=== PATIENT | male | born 1965 | race Caucasian/White ===

== ENCOUNTER 2021-10-17 20:33 | Emergency (ER) | payer MEDICARE, SELFPAY ==
[2021-10-17] VITALS (7 sets, daily range): BP systolic 120–153; BP diastolic 70–95; PULSE 83–116; RESP 20–22; TEMP 37.2–37.6; O2SAT 95–98; BMI 30.4
--- NOTE | 2021-10-17 20:42 | XR_ITS ---
PROCEDURE INFORMATION: Exam: XR Chest Exam date and time: 10/17/2021 8:56 PM Age: 55 years old Clinical indication: Cough and shortness of breath; Sternal or substernal pain; Additional info: Chest pain cough SOB TECHNIQUE: Imaging protocol: XR of the chest. Views: 2 views. COMPARISON: No relevant prior studies available. FINDINGS: Lungs: Interstitial opacities bilaterally concerning for pneumonia. Underlying chronic interstitial lung disease and pulmonary fibrosis. Granulomatous changes. Pleural spaces: Unremarkable. No pleural effusion. No pneumothorax. Heart/Mediastinum: Unremarkable. No cardiomegaly. Bones/joints: Unremarkable. IMPRESSION: Findings concerning for interstitial pneumonia. Underlying pulmonary fibrosis. Correlate clinically
--- NOTE | 2021-10-17 20:45 | ECG_ITS ---
APPROVED REPORT Exam: Resting ECG HR:112 bpm ECG Measurements Heart Rate 112 AXES IA 151 P 49 QRSd 103 QRS 62 QT 288 T 65 QTc 355 Conclusion SINUS TACHYCARDIA ABNORMAL RHYTHM ECG UNCONFIRMED REPORT Electronically signed by : Brian Reyes MD 10/18/2021 14:13:20
[2021-10-17 20:50] LABS: Basophils # 0.1 K/mm3 (0-0.2); Basophils % 1.3 % (0.1-2.0); Eosinophils # 0.1 K/mm3 (0.0-0.4); Eosinophils % 1.1 % (0.1-12.0); Hematocrit 42.5 % (42.0-52.0); Hemoglobin 14.2 g/dL (14.1-18.0); Lymphocytes # 1.3 K/mm3 (0.7-4.5); Lymphocytes % 12.9 % (10-50); Mean Corpuscular HGB Conc 33.5 g/dL (31.8-35.4); Mean Corpuscular Hemoglobin 33.2 pg (27.0-31.2); Mean Corpuscular Volume 99.2 fl (80-94); Mean Platelet Volume 7.9 fl (7.4-10.4); Monocytes # 0.6 K/mm3 (0.1-1.0); Monocytes % 6.4 % (1.7-9.3); Neutrophils # 7.7 K/mm3 (1.8-7.8); Neutrophils % 78.3 % (37.0-80.0); Platelet Count 204 K/mm3 (142-424); Red Blood Count 4.28 M/mm3 (4.60-6.20); Red Cell Distribution Width 13.6 % (11.5-17.5); White Blood Count 9.8 K/mm3 (4.8-10.8)
[2021-10-17 20:54] LABS: Adenovirus,PCR Not Detected (NotDetected); Bordetella Pertussis Not Detected (NotDetected); Chlamydophila Pneumoniae, PCR Not Detected (NotDetected); Coronavirus 19, PCR Not Detected (NotDetected); Coronavirus 229E Not Detected (NotDetected); Coronavirus NL63 Not Detected (NotDetected); Coronavirus OC43 Not Detected (NotDetected); Coronovirus HKU1,PCR Not Detected (NotDetected); Human Metapneumovirus Not Detected (NotDetected); Influenza A, PCR Not Detected (NotDetected); Influenza AH1, 2009 Not Detected (NotDetected); Influenza AH1, PCR Not Detected (NotDetected); Influenza AH3,PCR Not Detected (NotDetected); Influenza B, PCR Not Detected (NotDetected); Mycoplasma Pneumoniae, PCR Not Detected (NotDetected); Parainfluenza 1, PCR Not Detected (NotDetected); Parainfluenza 2, PCR Not Detected (NotDetected); Parainfluenza 3, PCR Not Detected (NotDetected); Parainfluenza 4, PCR Not Detected (NotDetected); Respiratory Syncytial Virus Not Detected (NotDetected)
[2021-10-17 20:57] LABS: Alanine Aminotransferase 46 U/L (12-78); Albumin Level 4.2 g/dl (3.5-5.0); Albumin/Globulin Ratio 1.3 (1.1-1.8); Alkaline Phosphatase 94 U/L (38-126); Anion Gap 12.4 mEq/L (5-15); Aspartate Amino Transferase 38 U/L (17-59); Blood Urea Nitrogen 25 mg/dl (9-20); Calcium 9.2 mg/dl (8.4-10.2); Carbon Dioxide 25 mmol/L (22.0-30.0); Chloride 105 mmol/L (98-107); Creatinine Clearance Estimated 100 mL/min (50-200); Estimated Glomerular Filt Rate 70 ml/min (>60); GFR (African American) 85 ML/MIN (>60); Globulin 3.3 g/dL (1.3-3.2); Glucose 106 mg/dl (74-100); Potassium 4.4 mmoL/L (3.5-5.1); Sodium 138 mmol/L (136-145); Total Protein,Serum 7.5 g/dl (6.3-8.2)
[2021-10-17 20:59] LABS: ABG Base Excess 1.2 mmol/L (-2.4-2.3); ABG HCO3 23.6 mmhg (22.0-26.0); ABG Oxygen Saturation 97 % (90-100); ABG PCO2 27.6 mmhg (35.0-45.0); ABG PO2 79.7 mmhg (80-100); ABG TCO2 24.5 mmhg (23-27)
[2021-10-17 21:00] LABS: ABG PH 7.55 mmol/L (7.35-7.45); Allen's Test Y; Oxygen RA %; Source Right Radial
--- NOTE | 2021-10-17 21:00 | HMH.EDSOB ---
ED Disposition Clinical Impression: Acute interstitial pneumonia Community acquired pneumonia Qualifiers: Laterality: left Lung location: upper lobe of lung Qualified Code(s): J18.9 - Pneumonia, unspecified organism Disposition: Home, Self-Care Condition on Discharge: Good Instructions: DI for Shortness of Breath Additional Instructions: use meds and see pcp for follow up and consider seeing pul consult Prescriptions: Benzonatate [Benzonatate 100mg cap] 100 mg PO TID #21 cap Transmission Status: Pending to [id number] levoFLOXacin [Levaquin 500mg tab] 500 mg PO DAILY #7 tab Transmission Status: Pending to [id number] predniSONE [Prednisone 20mg Tab] 20 mg PO BID #10 tab Transmission Status: Pending to [id number] Referrals: Provider,Referral, [Primary Care Provider] - - Critical Care Critical Care Time: No Attestation: On 10/17/21, the high probability of a clinically significant, sudden or life threatening deterioration of the following system(s) required my full and direct attention, intervention and personal management. The time I documented below is in addition to time spent performing reported procedures but includes the following listed in this critical care notation. Medical Decision Making - Medical Records Medical records reviewed: Yes: I reviewed the patient's medical records. - Dejon Inquiry Pt receiving controlled substance: No Vital Signs: 10/17/21 20:38 10/17/21 20:41 10/17/21 21:00 Temperature 99.6 F Temperature Source Oral Pulse Rate 116 H 106 H Respiratory Rate 22 Blood Pressure 153/95 H 131/89 Blood Pressure [Right Arm] 153/95 H Blood Pressure Mean [Right Arm] 114 02 Sat by Pulse Oximetry 95 95 98 Oxygen Delivery Method Room Air Room Air Room Air 10/17/21 21:10 10/17/21 21:11 10/17/21 21:40 Temperature Temperature Source Pulse Rate 89 104 H 101 H Respiratory Rate Blood Pressure 137/86 139/87 Blood Pressure [Right Arm] Blood Pressure Mean [Right Arm] 02 Sat by Pulse Oximetry 96 96 Oxygen Delivery Method Room Air Room Air - Lab Data Lab results reviewed: Yes: I reviewed the patient's lab results. Lab Results 10/17/21 20:42: Specimen Source Right radial, O2 % Ra, ABG pH 7.55 H, ABG pCO2 27.6 L, ABG pO2 79.7 L, ABG HCO3 23.6, ABG Total CO2 24.5, ABG O2 Saturation 97, ABG Base Excess 1.2, Steve Test Y 10/17/21 20:45: WBC 9.8, RBC 4.28 L, Hgb 14.2, Hct 42.5, MCV 99.2 H, MCH 33.2 H, MCHC 33.5, RDW 13.6, Plt Count 204, MPV 7.9, Neut % (Auto) 78.3, Lymph % (Auto) 12.9, [place] % (Auto) 6.4, Eos % (Auto) 1.1, Baso % (Auto) 1.3, Neut # (Auto) 7.7, Lymph # (Auto) 1.3, [place] # (Auto) 0.6, Eos # (Auto) 0.1, Baso # (Auto) 0.1, ESR 89 H 10/17/21 20:45: Sodium 138, Potassium 4.4, Chloride 105, Carbon Dioxide 25, Anion Gap 12.4, BUN 25 H, Creatinine 1.10, Estimated Creat Clear 100, Estimated GFR 70, Est GFR ( Amer) 85, Glucose 106 H, Calcium 9.2, Total Bilirubin 1.0, AST 38, ALT 46, Alkaline Phosphatase 94, Troponin I < 0.01, C-Reactive Protein 84.1 H, Total Protein 7.5, Albumin 4.2, Globulin 3.3 H, Albumin/Globulin Ratio 1.3, Procalcitonin 3.12 H 10/17/21 20:45: NT-Pro-B Natriuret Pep 162 H 10/17/21 20:49: Chlamy pneumoniae PCR Not detected, Adenovirus (PCR) Not detected, B. pertussis DNA (PCR) Not detected, Coronavirus OC43 (PCR) Not detected, Coronavirus HKU1 (PCR) Not detected, Coronavirus 229E (PCR) Not detected, SARS-CoV-2 (PCR) Not detected, Coronavirus NL63 (PCR) Not detected, Human Metapneumovir PCR Not detected, Influenza A (H1) PCR Not detected, Influ A (H1N1/09) PCR Not detected, Influenza A (H3) PCR Not detected, Influenza Type A (PCR) Not detected, Influenza Type B (PCR) Not detected, M. pneumoniae (PCR) Not detected, Parainfluenza 1 (PCR) Not detected, Parainfluenza 2 (PCR) Not detected, Parainfluenza 3 (PCR) Not detected, Parainfluenza 4 (PCR) Not detected, RSV (PCR) Not detected, Entero/Rhino (PCR) Detected A 0
[2021-10-17 21:02] LABS: C-Reactive Protein 84.1 mg/L (0-4)
--- NOTE | 2021-10-17 21:04 | PC.NURSE ---
pt going to xray
[2021-10-17 21:13] LABS: Troponin I < 0.01 ng/ml (0.00-0.034)
--- NOTE | 2021-10-17 21:15 | CT_ITS ---
PROCEDURE INFORMATION: Exam: CTA Chest With Contrast Exam date and time: 10/17/2021 9:27 PM Age: 55 years old Clinical indication: Cough and shortness of breath; Additional info: Shortness of air cough TECHNIQUE: Imaging protocol: Computed tomographic angiography of the chest with contrast. 3D rendering (Not supervised by radiologist): MIP and/or 3D reconstructed images were created by the technologist. Radiation optimization: All CT scans at this facility use at least one of these dose optimization techniques: automated exposure control; mA and/or kV adjustment per patient size (includes targeted exams where dose is matched to clinical indication); or iterative reconstruction. Contrast material: ISOVUE 370; Contrast volume: 70 ml; Contrast route: INTRAVENOUS (IV); COMPARISON: CR XR CHEST 2V 10/17/2021 8:56 PM FINDINGS: Pulmonary arteries: Normal. No pulmonary emboli. Aorta: Unremarkable. No aortic aneurysm. No aortic dissection. Lungs: Ground-glass opacity in the left upper lobe findings concerning for pneumonia. Remainder of the lungs are clear. Pleural spaces: Unremarkable. No pneumothorax. No pleural effusion. Heart: Unremarkable. No cardiomegaly. No pericardial effusion. Lymph nodes: Unremarkable. No enlarged lymph nodes. Intraperitoneal space: Upper abdomen reveals a 5 cm simple cyst in the left kidney. Bones/joints: Unremarkable. No acute fracture. Soft tissues: Unremarkable. IMPRESSION: 1. Left upper lobe pneumonia. 2. No pulmonary embolism COMMENTS: Consistent with the [employer]'s Incidental Findings Committee white paper (J Am Darren Radiol 2018): Any incidental renal lesion less than 1 cm or classified as too small to characterize, or any incidental cystic renal lesion characterized as simple-appearing, is likely benign. No follow-up imaging is recommended for these lesions per consensus recommendations based on imaging criteria.
[2021-10-17 21:16] LABS: Procalcitonin 3.12 ng/mL (0.0-2.0)
[2021-10-17 21:21] LABS: Erythrocyte Sedimentation Rate 89 mm/hr (0-20)
--- NOTE | 2021-10-17 21:27 | PC.NURSE ---
pt going to ct scan
--- NOTE | 2021-10-17 21:34 | PC.NURSE ---
pt back from scan
[2021-10-17 21:39] LABS: Microscopic, Urine URINE MICROSCOPIC (MICROSCOPIC)
[2021-10-17 21:40] LABS: NT Pro Brain Natriuretic Pep. 162 pg/mL (0-125)
[2021-10-17 21:41] LABS: Appearance,Urine CLEAR (Clear); Bilirubin,Urine Negative (Negative); Blood, Urine 1+ (Negative); Color,Urine YELLOW (Yellow); Glucose,Urine (UA) Negative (Negative); Ketones,Urine Negative (Negative); Leukocyte Esterase,Urine Negative (Negative); Nitrate,Urine Negative (Negative); Protein,Urine Negative (Negative)
[2021-10-17 21:44] LABS: Amorphous Sediment,Urine Trace /lpf; Mucus,Urine 2+ /lpf; Squamous Epithelial Cell,Urine Occasional #/hpf (0-5); WBC,Urine Occasional #/hpf (0-3)
[2021-10-17 22:21] LABS: Rhinovirus/Enterovirus Detected (NotDetected)
== END 2021-10-17 22:57 | disposition home or self-care (01) ==
PROVIDERS: Emergency Provider Emergency Medicine
DX: J18.9 Pneumonia, unspecified organism (principal)
CPT/HCPCS: 71046; 71275; 80053; 81001; 82803; 83880; 84145; 84484; 85025; 85651; 86140; 87581; 87632; 87798; 93005; 96361; 96374; 96375; 99284; C9803; J0696; Q9967; U0003; U0005

== ENCOUNTER 2024-03-10 07:48 | Emergency (ER) | payer MEDICARE, SELFPAY ==
[2024-03-10 07:49] VITALS: BP 130/89; PULSE 83; RESP 13; TEMP 37.2; O2SAT 100; BMI 34.7
[2024-03-10 07:53] VITALS: BP 130/89; PULSE 134; O2SAT 94
[2024-03-10 08:00] VITALS: BP 139/86; PULSE 94; O2SAT 92
[2024-03-10] MEDS: KETOROLAC 30MG/ML VIAL 30 MG IM (08:20)
--- NOTE | 2024-03-10 09:02 | HMH.EDGENADL ---
Discharge Plan Disposition Patient Disposition: Home, Self-Care Condition: Good Prescriptions Prescriptions: No Action colestipol 1 GM tablet 1 g PO BID Patient Comments: TAKE 1 TABLET BY MOUTH 2 TIMES DAILY. NEEDS AN APPOINTMENT losartan 50 MG tablet 50 mg PO DAILY celecoxib 200 MG capsule 200 mg PO BID tamsulosin 0.4 MG capsule 0.4 mg PO DAILY montelukast 10 MG tablet 10 mg PO PM hydrochlorothiazide 12.5 MG tablet 12.5 mg PO DAILY albuterol sulfate 90 MCG aerosol powdr breath activated 90 mcg IH NEEDED PRN (Reason: Wheezing) amlodipine 10 MG tablet 10 mg PO DAILY fluticasone propion-salmeterol 28 PUFF blister with device 1 puff IH NEEDED PRN (Reason: Wheezing) tadalafil 5 MG tablet 5 mg PO DAILY prednisone 20 MG tablet 20 mg PO BID Qty: 10 0RF levofloxacin 500 MG tablet 500 mg PO DAILY Qty: 7 0RF benzonatate 100 MG capsule 100 mg PO TID Qty: 21 0RF Referrals Follow up/Referrals: Steffanie Fulton APRN [Primary Care Provider] - See instructions Clinical Impressions Clinical Impression: Shingles Instructions Patient Instructions: DI for Acute Pain -- Adult Print Language Print Language: Azeri Discharge ED Provider: Luis Carlos Garrido General Adult HPI General Chief complaint: PAIN Stated complaint: rash/itching in head and down right shoulder Time Seen by Provider: 03/10/24 08:05 Mode of Arrival: Ambulatory Source of Information: Patient Limitations: No Limitations Description of Symptoms (Recalled from ER Triage Doc. by RN): pt presents to ED with c/o pain related to shingles. pt reports that he was diagnosed with shingles approx 3 weeks ago. pt states that he completed antiviral course, steroid course and had steroid shot. pt reports pain from top of right ear down to right shoulder. History of Present Illness HPI narrative: 58-year-old male with a history of shingles three weeks ago and prior substance abuse. The shingles have dried up , but the patient is now experiencing burning and itching sensations, described as feeling like a thousand little sweat bees. The patient has a history of addiction and avoids narcotics. Various topical treatments such as Lidocaine and Caladryl have been tried without relief. The patient is currently taking Tylenol and Celebrex twice a day for arthritis. There is a history of high blood pressure, which has been under control until recently, and a seven-day course of Valtrex has been completed. The patient has custody of a [id number]-[id number] grandchild and is struggling to function due to the discomfort. Difficulty wearing glasses is reported, but there is no pain in the eyes or changes in vision. Two steroid treatments have been received, and both shingles vaccines have been administered. Related Data Home Medications ?Medication ?Instructions ?Recorded ?Confirmed albuterol sulfate 90 mcg/actuation 90 mcg IH NEEDED PRN Wheezing 10/17/21 10/17/21 breath activated powder inhaler amlodipine 10 mg tablet 10 mg PO DAILY High blood pressure 10/17/21 10/17/21 celecoxib 200 mg capsule 200 mg PO BID Arthritis 10/17/21 10/17/21 colestipol 1 gram tablet 1 g PO BID High cholesterol 10/17/21 10/17/21 fluticasone 500 mcg-salmeterol 50 1 puff IH NEEDED PRN Wheezing 10/17/21 10/17/21 mcg/dose blistr powdr for inhalation hydrochlorothiazide 12.5 mg tablet 12.5 mg PO DAILY Hypertension 10/17/21 10/17/21 losartan 50 mg tablet 50 mg PO DAILY High blood pressure 10/17/21 10/17/21 montelukast 10 mg tablet 10 mg PO PM GERD 10/17/21 10/17/21 tadalafil 5 mg tablet 5 mg PO DAILY Erectile dysfunction 10/17/21 10/17/21 tamsulosin 0.4 mg capsule 0.4 mg PO DAILY Fluid 10/17/21 10/17/21 Previous Rx's ?Medication ?Instructions ?Recorded benzonatate 100 mg capsule 100 mg PO TID #21 caps 10/17/21 levofloxacin 500 mg tablet 500 mg PO DAILY #7 tabs 10/17/21 prednisone 20 mg tablet 20 mg PO BID #10 tabs 10/17/21 Allergies Allergy/AdvReac Type Severity Reaction Status Date / Time Morphine Allergy Mild ANGRY Uncoded 06/13/17 14:55 Nonsteroidal Allergy Mild ELEVATE BP Uncoded 06/13/17 14:55 Antiinflammatory Drug [facility] Disclaimer: The information contained in this section may have been updated after the patient was seen, as this information can be updated by other users. Social History (Updated 03/10/24 @ 09:09 by Luis Carlos Garrido DO) Smoking Status: Never smoker alcohol intake: former current occupational status: other Travel in the last 8 weeks: None ROS Obtained: Yes Systems reviewed as appropriate & no additional complaints except as documented Physical Exam General General appearance: alert and in no apparent distress Head Head exam: atraumatic, normocephalic and other (Eythema noted right neck and posterior right scalp) Eye Eye exam: Present normal appearance, PERRL and EOMI; Absent scleral icterus or conjunctival redness ENT ENT exam: Present normal exam, normal oropharynx, mucous membranes moist and TM's normal bilaterally; Absent normal external ear exam (Right external ear with dry skin and mild erythema) Neck Neck exam: Present full ROM and other (As above) Chest Chest inspection: Present normal inspection and symmetric chest wall rise Respiratory Respiratory exam: Absent respiratory distress Cardiovascular Cardiovascular exam: Present regular rate Neurological Exam Neurological exam: Present alert, oriented X3, CN II-XII intact and normal gait Psychiatric Psychiatric exam: Present normal affect and normal mood Skin Skin exam: Present warm, dry and other (As above) Medical Decision Making Dejon Inquiry Pt receiving controlled substance: No Vital Signs: 03/10/24 07:49 03/10/24 07:53 03/10/24 08:00 Temperature 99.0 F Temperature Source Oral Pulse Rate 134 H 94 H Pulse Rate [Left Radial] 83 Respiratory Rate 13 Blood Pressure 130/89 139/86 Blood Pressure [Right Arm] 130/89 Blood Pressure Mean [Right Arm] 102 02 Sat by Pulse Oximetry 100 94 L 92 L Oxygen Delivery Method Room Air Room Air Room Air 03/10/24 09:23 Temperature 98.0 F Temperature Source Pulse Rate 83 Pulse Rate [Left Radial] Respiratory Rate 16 Blood Pressure 139/86 Blood Pressure [Right Arm] Blood Pressure Mean [Right Arm] 02 Sat by Pulse Oximetry Oxygen Delivery Method Orders (Tests/Meds): ED MEDICATIONS Discontinued Medications Generic Name Dose Route Start Last Admin Trade Name Freq PRN Reason Stop Dose Admin Ketorolac Tromethamine 30 mg 03/10/24 08:12 03/10/24 08:20 Ketorolac 30mg/Ml Vial IM 03/10/24 08:13 30 mg ONCE ONE Administration Medical Decision Narrative: Patient with history and exam per above presenting for evaluation of skin irritation at site of recent shingles at right neck posterior scalp. Physical exam as above, no noted findings of ocular shingles or Elliott Valverde syndrome. Reassuring physical exam overall Diagnoses considered include shingles, cellulitis, abscess ED workup and treatment included: As above. Patient was given Toradol without significant relief. Bedside [id number] ultrasound performed by myself at site of neck and scalp erythema without noted cellulitis versus abscess. Normal [id number] ultrasound. At this time believe patient most likely have pain secondary to recent shingles My clinical impression at this time is most consistent with nerve pain secondary to shingles. Patient has been taking gabapentin as prescribed. Discussed pain control with patient, he is to use emollient barrier cream at home. He has these available and agrees with this plan. Shared decision making made to prescribe short dose course of oxycodone. Patient agreeable with this plan and is going to follow-up closely with his primary care physician. Given instructions to return to ED if symptoms worsen. Discharged home with hemodynamically stable vitals. I discussed my clinical impression with patient and answered all questions. At this time, the evidence for any other entities in the differential is insufficient to warrant any further testing or ED observation. This was explained to the patient. The patient was advised that persistent or worsening symptoms require further evaluation. Critical Care Critical Care Time Critical Care Time: No
[2024-03-10 09:23] VITALS: BP 139/86; PULSE 83; RESP 16; TEMP 36.7
== END 2024-03-10 09:24 | disposition home or self-care (01) ==
PROVIDERS: Emergency Provider Student in an Organized Health Care Education/Training Program; PCP Nurse Practitioner
DX: B02.9 Zoster without complications (principal)
CPT/HCPCS: 96372; 99283; J1885

== ENCOUNTER 2024-05-23 11:49 | Emergency (ER) | payer MEDICARE, SELFPAY ==
[2024-05-23 11:50] VITALS: BP 108/82; PULSE 101; RESP 22; TEMP 37.6; O2SAT 95; BMI 34.4
--- NOTE | 2024-05-23 11:59 | ECG_ITS ---
APPROVED REPORT Exam: Resting ECG HR:105 bpm ECG Measurements Heart Rate [address] 148 P 53 QRSd 150 QRS 74 QT 329 T 66 QTc 390 Conclusion SINUS TACHYCARDIA RIGHT BUNDLE BRANCH BLOCK [120+ ms QRS DURATION, UPRIGHT V1, 40+ ms S IN I/aVL/V4/V5/V6] Electronically signed by : LIANE BUSTILLO, 05/23/2024 15:28:18
[2024-05-23 12:01] VITALS: BP 122/80; PULSE 110; O2SAT 91
--- NOTE | 2024-05-23 12:05 | ED_ITS ---
Discharge Plan Disposition Patient Disposition: Home, Self-Care Chief Complaint: Upper Respiratory Infection Prescriptions Prescriptions: New prednisone 20 mg tablet 40 mg PO DAILY 5 Days Qty: 10 0RF amoxicillin-pot clavulanate 875-125 mg tablet 1 tab PO BID 7 Days Qty: 14 0RF azithromycin 500 mg tablet 500 mg PO DAILY 2 Days Qty: 2 0RF Rx Instructions: start on day 2 of therapy ipratropium-albuterol 0.5 mg-3 mg(2.5 mg base)/3 mL solution for nebulization 3 ml inhalation Q4H PRN (Reason: shortness of breath) Qty: 180 1RF Rx Instructions: until breathing returns to target peak flow/parameters No Action colestipol 1 GM tablet 1 g PO BID Patient Comments: TAKE 1 TABLET BY MOUTH 2 TIMES DAILY. NEEDS AN APPOINTMENT losartan 50 MG tablet 50 mg PO DAILY celecoxib 200 MG capsule 200 mg PO BID tamsulosin 0.4 MG capsule 0.4 mg PO DAILY montelukast 10 MG tablet 10 mg PO PM hydrochlorothiazide 12.5 MG tablet 12.5 mg PO DAILY albuterol sulfate 90 MCG aerosol powdr breath activated 90 mcg IH NEEDED PRN (Reason: Wheezing) amlodipine 10 MG tablet 10 mg PO DAILY fluticasone propion-salmeterol 28 PUFF blister with device 1 puff IH NEEDED PRN (Reason: Wheezing) tadalafil 5 MG tablet 5 mg PO DAILY prednisone 20 MG tablet 20 mg PO BID Qty: 10 0RF levofloxacin 500 MG tablet 500 mg PO DAILY Qty: 7 0RF benzonatate 100 MG capsule 100 mg PO TID Qty: 21 0RF Referrals Follow up/Referrals: Provider,Referral, MD [Primary Care Provider] - See instructions Activity Restrictions/Add. Instructions Additional Instructions/Restrictions: Call your family doctor to establish care for this visit to the emergency department and schedule follow-up within 48 hours to ensure improvement. If you have any worsening of your condition or any other concerning signs or symptoms, return to the emergency department or your primary care doctor for further evaluation. Amoxicillin twice daily for 5 days. Azithromycin each morning for the next 2 days. Prednisone each morning for the next 5 days. DuoNebs as needed Clinical Impressions Clinical Impression: Community acquired pneumonia, Asthma exacerbation Print Language Print Language: Icelandic Discharge ED Provider: Jose Rosas General Adult HPI General Chief complaint: Upper Respiratory Infection Stated complaint: chest congestion cough soa Time Seen by Provider: 05/23/24 11:55 Mode of Arrival: Ambulatory Source of Information: Patient Limitations: No Limitations Description of Symptoms (Recalled from ER Triage Doc. by RN): c ough,congestion,fever, flu exposure History of Present Illness HPI narrative: Please note that above description of symptoms, in this electronic medical record under categorization of recalled from ER triage doctor by RN are reflective of an initial nursing assessment, however, is not reflective of my full history and physical exam that was personally taken and clarified. Consequentially, this preceding description of symptoms, which may include the patient's categorized chief complaint in the EMR, do not reflect my personal clinical impression, and the ultimate description of history of present illness and patient stated complaints should be deferred to this section of the note. Unless stated otherwise or congruent with this section of the note, additional signs, symptoms, or incongruence should be interpreted as inaccurate with my clinical impression. Related Data Home Medications ?Medication ?Instructions ?Recorded ?Confirmed albuterol sulfate 90 mcg/actuation 90 mcg IH NEEDED PRN Wheezing 10/17/21 10/17/21 breath activated powder inhaler amlodipine 10 mg tablet 10 mg PO DAILY High blood pressure 10/17/21 10/17/21 celecoxib 200 mg capsule 200 mg PO BID Arthritis 10/17/21 10/17/21 colestipol 1 gram tablet 1 g PO BID High cholesterol 10/17/21 10/17/21 fluticasone 500 mcg-salmeterol 50 1 puff IH NEEDED PRN Wheezing 10/17/21 10/17/21 mcg/dose blistr powdr for inhalation hydrochlorothiazide 12.5 mg tablet 12.5 mg PO DAILY Hypertension 10/17/21 10/17/21 losartan 50 mg tablet 50 mg PO DAILY High blood pressure 10/17/21 10/17/21 montelukast 10 mg tablet 10 mg PO PM GERD 10/17/21 10/17/21 tadalafil 5 mg tablet 5 mg PO DAILY Erectile dysfunction 10/17/21 10/17/21 tamsulosin 0.4 mg capsule 0.4 mg PO DAILY Fluid 10/17/21 10/17/21 Previous Rx's ?Medication ?Instructions ?Recorded benzonatate 100 mg capsule 100 mg PO TID #21 caps 10/17/21 levofloxacin 500 mg tablet 500 mg PO DAILY #7 tabs 10/17/21 prednisone 20 mg tablet 20 mg PO BID #10 tabs 10/17/21 amoxicillin 875 mg-potassium 1 tab PO BID 7 days #14 tabs 05/23/24 clavulanate 125 mg tablet azithromycin 500 mg tablet 500 mg PO DAILY 2 days #2 tabs 05/23/24 ipratropium 0.5 mg-albuterol 3 mg 3 ml inhalation Q4H PRN shortness 05/23/24 (2.5 mg base)/3 mL nebulization of breath #180 mL soln prednisone 20 mg tablet 40 mg (2 x 20 mg) PO DAILY 5 days 05/23/24 #10 tabs Allergies Allergy/AdvReac Type Severity Reaction Status Date / Time Morphine Allergy Mild ANGRY Uncoded 06/13/17 14:55 Nonsteroidal Allergy Mild ELEVATE BP Uncoded 06/13/17 14:55 Antiinflammatory Drug PFSH [facility] Disclaimer: The information contained in this section may have been updated after the patient was seen, as this information can be updated by other users. Social History (Updated 03/10/24 @ 09:09 by Luis Carlos Garrido DO) Smoking Status: Never smoker alcohol intake: former current occupational status: other Other Medical History Have you received the Flu Vaccine for this season: No Have you received the Pneumonia Vaccine: No ROS Obtained: Yes All systems reviewed & no additional complaints except as documented Physical Exam General General appearance: alert and in distress (Mild respiratory distress) Head Head exam: atraumatic and normocephalic Eye Eye exam: Present normal appearance, PERRL and EOMI Neck Neck exam: Present normal inspection, full ROM and trachea midline Respiratory Respiratory exam: Present wheezes and prolonged expiratory phase; Absent respiratory distress, stridor or accessory muscle use Cardiovascular Cardiovascular exam: Present normal rhythm, tachycardia and other (Pulses equal symmetric in upper and lower extremities) Abdominal Exam Abdominal exam: Present soft; Absent distention, tenderness or pulsatile mass Extremities Exam Extremities exam: Absent edema Neurological Exam Neurological exam: Present alert, oriented X3 and CN II-XII intact; Absent motor sensory deficit Skin Skin exam: Present warm and dry; Absent diaphoresis or erythema Medical Decision Making Medical Records Medical records reviewed: Yes I reviewed the patient's medical records. Screening: Per USPSTF and CDC recommendations, given the prevalence of disease in our region, it is our hospital?s policy to screen for HIV and viral Hepatitis for all patients aged 18 and over and those with ongoing risk factors. Dejon Inquiry Pt receiving controlled substance: No Dejon was queried for this patient: No Vital Signs: 05/23/24 11:50 05/23/24 12:01 Temperature 99.7 F H Temperature Source Oral Pulse Rate 110 H Pulse Rate [Right] 101 H Respiratory Rate 22 Blood Pressure 122/80 Blood Pressure [Right Arm] 108/82 L Blood Pressure Mean [Right Arm] 90 02 Sat by Pulse Oximetry 95 91 L Oxygen Delivery Method Room Air Room Air Lab Data Lab Results 05/23/24 11:53: SARS-CoV-2 (PCR) Not detected, Influenza A Untype (PCR) Not detected, Influenza Type B (PCR) Not detected 05/23/24 12:12: Sodium 135 L, Potassium 4.4, Chloride 102, Carbon Dioxide 23, Anion Gap 14.4, BUN 15, Creatinine 0.90, Estimated Creat Clear 129, Estimated GFR 87, Est GFR ( Amer) 106, Glucose 116 H, Calcium 9.2, Total Bilirubin 1.1, AST 39, ALT 45, Alkaline Phosphatase 105, Total Protein 6.8, Albumin 4.3, Globulin 2.5, Albumin/Globulin Ratio 1.7 05/23/24 12:35: WBC 12.1 H, RBC 4.08 L, Hgb 13.7 L, Hct 40.1 L, MCV 98.2 H, MCH 33.5 H, MCHC 34.1, RDW 13.7, Plt Count 160, MPV 7.6, Neut % (Auto) 83.7 H, Lymph % (Auto) 8.3 L, [place] % (Auto) 7.3, Eos % (Auto) 0.2, Baso % (Auto) 0.5, Neut # (Auto) 10.1 H, Lymph # (Auto) 1.0, [place] # (Auto) 0.9, Eos # (Auto) 0.0, Baso # (Auto) 0.1, PT 10.3, INR 0.91, APTT 27.1 05/23/24 12:38: VBG pH 7.38, VBG pCO2 43.6, VBG pO2 37.0, VBG HCO3 25.4, VBG Total CO2 26.8, VBG O2 Saturation 69.7, VBG Base Excess 0.4, VBG Lactic Acid 2.4 H 05/23/24 12:35 05/23/24 12:12 Orders (Tests/Meds): ED MEDICATIONS Discontinued Medications Generic Name Dose Route Start Last Admin Trade Name Jese PRN Reason Stop Dose Admin Albuterol/Ipratropium 9 ml 05/23/24 12:05 05/23/24 12:32 Ipratropium/Albuterol 3 Ml Neb IH 05/23/24 12:06 9 ml ONCE ONE Administration Azithromycin 500 mg 05/23/24 12:19 05/23/24 13:07 Azithromycin 250mg Tablet PO 05/23/24 12:20 500 mg ONCE ONE Administration Magnesium Sulfate 2 gm in 50 mls @ 50 mls/hr 05/23/24 12:05 05/23/24 12:32 Magnesium Sulfate 2gm/50ml Premix IV 05/23/24 13:04 50 mls/hr ONCE ONE Administration Ceftriaxone Sodium 2 gm/ 100 mls @ 200 mls/hr 05/23/24 12:19 05/23/24 13:07 Sodium Chloride IV 05/23/24 12:48 200 mls/hr ONCE ONE Administration Methylprednisolone Sodium Succinate 125 mg 05/23/24 12:05 05/23/24 12:32 Methylprednisolone Sod Succ 125mg Vial IV 05/23/24 12:06 125 mg ONCE ONE Administration ORDERS Category Date Time Status XR chest portable Stat Exams 05/23/24 12:06 Completed Complete Blood Count Auto Diff Stat Lab 05/23/24 12:35 Completed Comprehensive Metabolic Panel Stat Lab 05/23/24 12:12 Completed PT INR [Prothrombin Time INR] Stat Lab 05/23/24 12:35 Completed PTT [Activated Partial Thrombo Time] Stat Lab 05/23/24 12:35 Completed Rapid PCR Covid and Flu A/B Stat Lab 05/23/24 11:53 Completed Blood Culture Stat Micro 05/23/24 12:38 Received Venous Blood Gas Stat RT 05/23/24 12:38 Completed Medical Decision Narrative: 58-year-old male history of asthma and hypertension presenting with cough and fever. Patient states that he started having a cough 2 days prior. Patient's had influenza last week. He started with runny nose, cough that was nonproductive. Now having cough that is productive of yellow sputum, fever up to 103 ?F responsive to Tylenol and Motrin. Also having shortness of breath. Has taken 10 albuterol nebulizer treatments since last night at 10 PM. Does not have any rescue steroids at home, so came in for further evaluation. Patient has never needed intubated for his asthma. Has been using his inhalers as prescribed with LABA/ICS in the a.m. with as needed albuterol. History was obtained via conversation with patient. On arrival, patient hemodynamically stable, alert, oriented x4, appropriate, GCS 15, moving all extremities spontaneously, pupils equal and reactive to light. Full physical exam performed and significant for mild respiratory distress. He is tachypneic, tachycardic. Decreased breath sounds bilaterally with bilateral wheezes. No focal breath sounds. Prolonged expiratory phase. Cardiac exam within normal limits other than tachycardia. Differential includes asthma exacerbation, pneumonia, bronchitis, less likely to be PE, ACS, MT, among other. Patient placed on continuous cardiac monitoring and continuous pulse ox with initial blood pressure 108/82, heart rate 101, saturation 95% on room air. Independent interpretation of EKG shows sinus tachycardia 105 bpm with right bundle branch block morphology VT 148, QRS wide at 150, QTc 390. No acute ischemic change. Patient was given DuoNebs, Solu-Medrol for symptomatic management and correction of underlying abnormalities. Workup independently interpreted and significant for leukocytosis with neutrophilia. Gas nonactionable other than VBG lactic acid 2.4. Nonactionable chemistry. Viral swab negative. On independent interpretation of imaging, right lower lobar pneumonia. See radiology read for full review of final results. Patient given 2 g ceftriaxone as well as 2 g magnesium. On reevaluation, patient sleeping, when woken up, states he feels much better. Tissue perfusion reassessment performed within 3 hours, patient mentating, following commands, good capillary refill and hemodynamically stable. Given patient presentation, workup, history, this most likely represents asthma exacerbation in the setting of pneumonia. Because patient at baseline without signs or symptoms of clinical decompensation, deemed appropriate for discharge. Results were relayed to patient who voiced understanding and were agreeable to outpatient management and follow up. I discussed my clinical impression with patient and answered all questions. At this time, the evidence for any other entities in the differential is insufficient to warrant any further testing or ED observation. This was explained as well. Advisory was given that persistent or worsening symptoms require further evaluation. I confirmed the understanding of this discussion. Out Patient Therapist disclaimer Much of this encounter note is an electronic drying tumbler operator spoken language to printed text. Electronic drying tumbler operator of the spoken language may permit errors. Although I have reviewed the note, some errors may still exist. Critical Care Critical Care Time Critical Care Time: No
--- NOTE | 2024-05-23 12:06 | XR_ITS ---
PROCEDURE INFORMATION: Exam: XR Chest Exam date and time: 05/23/2024 12:04 PM Age: 58 years old Clinical indication: Cough and fever and shortness of breath; Additional info: SOA productive cough fever TECHNIQUE: Imaging protocol: Radiologic exam of the chest. Views: 1 view. COMPARISON: CT ANGIO CHEST PE PROTOCOL 10/17/2021 9:27 PM FINDINGS: Lungs: Mild bibasilar atelectasis/scarring and/or pneumonitis. No focal consolidation or pulmonary edema. Calcified granuloma within the left lower lobe posteriorly. Pleural spaces: Unremarkable. No pleural effusion. No pneumothorax. Heart/Mediastinum: Normal. Vasculature: Atherosclerotic vascular disease. 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 Bones/joints: Old, healed left posterior rib fractures. IMPRESSION: Mild bibasilar atelectasis/scarring and/or pneumonitis.
[2024-05-23 12:10] LABS: Coronavirus 19, PCR Not Detected (NotDetected); Influenza A, PCR Not Detected (NotDetected); Influenza B, PCR Not Detected (NotDetected)
[2024-05-23] MEDS: MAGNESIUM SULFATE IN WATER 2 GM/50 ML PIGGYBACK IV (12:32)
[2024-05-23] MEDS: METHYLPREDNISOLONE SOD SUCC 125MG VIAL 125 MG IV (12:32)
[2024-05-23] MEDS: IPRATROPIUM/ALBUTEROL 3 ML NEB 9 ML IH (12:32)
[2024-05-23 12:44] LABS: Lactate Venous 2.4 mmol/L (0.4-2.0); VBG Base Excess 0.4 mmol/L (-2.4-2.3); VBG HCO3 25.4 mmol/L (23-30); VBG Oxygen Saturation 69.7 % (50-70); VBG PCO2 43.6 mmol/L (35-51); VBG PH 7.38 mmol/L (7.31-7.41); VBG Total CO2 26.8 mmol/L (23-27)
[2024-05-23 13:03] LABS: Basophils # 0.1 K/mm3 (0-0.2); Basophils % 0.5 % (0.1-2.0); Eosinophils % 0.2 % (0.1-12.0); Hematocrit 40.1 % (42.0-52.0); Hemoglobin 13.7 g/dL (14.1-18.0); Lymphocytes % 8.3 % (10-50); Mean Corpuscular HGB Conc 34.1 g/dL (31.8-35.4); Mean Corpuscular Hemoglobin 33.5 pg (27.0-31.2); Mean Corpuscular Volume 98.2 fl (80-94); Mean Platelet Volume 7.6 fl (7.4-10.4); Monocytes # 0.9 K/mm3 (0.1-1.0); Monocytes % 7.3 % (1.7-9.3); Neutrophils # 10.1 K/mm3 (1.8-7.8); Neutrophils % 83.7 % (37.0-80.0); Platelet Count 160 K/mm3 (142-424); Red Blood Count 4.08 M/mm3 (4.60-6.20); Red Cell Distribution Width 13.7 % (11.5-17.5); White Blood Count 12.1 K/mm3 (4.8-10.8)
[2024-05-23] MEDS: AZITHROMYCIN 250MG TABLET 500 MG PO (13:07)
[2024-05-23] MEDS: CEFTRIAXONE SODIUM 2 GM in 0.9 % SODIUM CHLORIDE 100 ML IV (13:07)
[2024-05-23 13:10] LABS: Activated Partial Thrombo Time 27.1 seconds (22.8-30.6); INR 0.91 (0.9-1.1); Prothrombin Time 10.3 seconds (10.1-12.5)
[2024-05-23 13:11] LABS: Alanine Aminotransferase 45 U/L (12-78); Albumin Level 4.3 g/dl (3.5-5.0); Albumin/Globulin Ratio 1.7 (1.1-1.8); Alkaline Phosphatase 105 U/L (38-126); Anion Gap 14.4 mEq/L (5-15); Aspartate Amino Transferase 39 U/L (17-59); Bilirubin,Total 1.1 mg/dl (0.2-1.3); Blood Urea Nitrogen 15 mg/dl (9-20); Calcium 9.2 mg/dl (8.4-10.2); Carbon Dioxide 23 mmol/L (22.0-30.0); Chloride 102 mmol/L (98-107); Creatinine Clearance Estimated 129 mL/min (50-200); Estimated Glomerular Filt Rate 87 ml/min (>60); GFR (African American) 106 ML/MIN (>60); Globulin 2.5 g/dL (1.3-3.2); Glucose 116 mg/dl (74-100); Potassium 4.4 mmoL/L (3.5-5.1); Sodium 135 mmol/L (136-145); Total Protein,Serum 6.8 g/dl (6.3-8.2)
[2024-05-23 13:59] VITALS: BP 145/80; PULSE 110; RESP 20; TEMP 37.6; O2SAT 93
[2024-05-23 16:44] LABS: Reflex Lactic Add Lactic Reflex
== END 2024-05-23 14:00 | disposition home or self-care (01) ==
PROVIDERS: Emergency Provider Emergency Medicine
DX: J45.901 Unspecified asthma with (acute) exacerbation (principal); J18.9 Pneumonia, unspecified organism; R05.9 Cough, unspecified; R09.81 Nasal congestion; R50.9 Fever, unspecified; R09.89 Other specified symptoms and signs involving the circulatory and respiratory systems
CPT/HCPCS: 71045; 80053; 82803; 85025; 85610; 85730; 87040; 87636; 93005; 96365; 96366; 96374; 99284; J0696; J2919; J3475; J7620

== ENCOUNTER 2024-05-29 15:09 | Emergency (ER) | payer MEDICARE, SELFPAY ==
[2024-05-29 15:11] VITALS: BP 140/94; PULSE 94; RESP 18; O2SAT 96; BMI 36.0
--- NOTE | 2024-05-29 15:20 | PC.NURSE ---
DR BUSTILLO AT BEDSIDE
--- NOTE | 2024-05-29 15:33 | XR_ITS ---
PROCEDURE INFORMATION: Exam: XR Chest Exam date and time: 05/29/2024 4:15 PM Age: 58 years old Clinical indication: Cough; Patient HX: States he was told he has pneumonia, but possibly needs a different type of medicine; Additional info: Non improvement on augmentin, productive cough. TECHNIQUE: Imaging protocol: Radiologic exam of the chest. Views: 2 views. COMPARISON: CR XR CHEST PORTABLE 05/23/2024 12:04 PM FINDINGS: Lungs: Persistent right middle lobe infiltrate, not significantly changed from 05/23/2024 radiograph accounting for differences in lung volumes. No evidence of new or worsening airspace disease. Left lung is clear. Pleural spaces: No visible pleural effusion. No pneumothorax. Heart/Mediastinum: Cardiomediastinal silouhette is within normal limits. Bones/joints: No evidence of acute osseous abnormality. IMPRESSION: Persistent right middle lobe infiltrate compatible with pneumonia.
--- OUTSIDE RECORDS SUMMARY | 2024-05-29 15:33 | XMS_ITS | Referral Summary ---
Author Organization [facility] Address [address] [place] [address] Phone Care Team Providers Care Performance Specialist Name Role Phone Steffanie Fulton APRN Primary Care Provider [phone]- [phone] Encounters Date Type Department Care Team Description 05/29/2024 1:45 PM EST Office Visit [facility] [email or web address] [place] [address] Stfefanie Fulton APRN Community acquired pneumonia, unspecified laterality (Primary Dx); SOB (shortness of breath) 05/07/2024 Refill [facility] [email or web address] [place] [address] Steffanie Fulton APRN Medication Refill; Central Patient Navigator Outreach (med refill 100) 05/02/2024 Telephone [facility] [email or web address] [place] [address] Steffanie Fulton APRN Medication Refill; Central Patient Navigator Outreach (Med Refill 30 day ) 04/29/2024 11:45 AM EST Office Visit [facility] [email or web address] [place] [address] Mariangel Lamb APRN PHN (postherpetic neuralgia) (Primary Dx); Laryngitis 04/28/2024 Refill [facility] [email or web address] [place] [address] Ligia Wiley MD Medication Refill 04/23/2024 Travel 04/23/2024 3:15 PM EDT Office Visit [facility] [address] [place], [place] [address] Deanna Diaz APRN Post herpetic neuralgia; Herpes zoster without complication 04/21/2024 Refill [facility] [address] [place], [place] [address] Deanna Diaz APRN Medication Refill 04/05/2024 Refill [facility] [address] [place], [place] [address] Steffanie Fulton APRN Medication Refill 04/05/2024 1:40 PM EDT Office Visit [facility] [address] [place] [address] Michael Mckeon MD Irritable bowel syndrome with diarrhea (Primary Dx); Gastroesophageal reflux disease, unspecified whether esophagitis present 04/02/2024 Telephone [facility] [address] [place] [address] Marcio Pruitt MD Prior Authorization (Right greater and lesser ONB) 04/01/2024 11:40 AM EDT Office Visit [facility] [address] [place] [address] Marcio Pruitt MD PHN (postherpetic neuralgia) (Primary Dx); Facial pain; Scalp pain 03/27/[address] [facility] [place] [address] [address] [place] [address] Glenis Boles, Mend Worker New Patient 03/27/2024 10:20 AM EDT Office Visit [facility] Neurology [facility] [address] [place] [address] Lyndsay Brewer DO Post herpetic neuralgia (Primary Dx) 03/25/2024 Orders Only [facility] [address] [place], [place] [address] Rocio Sarabia MA Herpes zoster without complication (Primary Dx) 03/20/2024 9:45 AM EDT Office Visit [facility] [address] [place] [address] Kirstin Steffanie, SOLUTIONS CONSULTANT Post herpetic neuralgia (Primary Dx); Herpes zoster with complication 03/18/2024 1:45 PM EDT Office Visit [facility] [address], [place] [address] Deanna Diaz APRN Post herpetic neuralgia (Primary Dx) 03/12/2024 9:45 AM EDT Office Visit [facility] [address], [place] [address] eDanna Diaz APRN Herpes zoster with complication (Primary Dx); Post herpetic neuralgia; Herpes zoster without complication 03/08/2024 1:45 PM EDT Office Visit [facility] [address], [place] [address] Deanan Diaz APRN Post herpetic neuralgia; Herpes zoster without complication 03/04/2024 10:15 AM EDT Office Visit [facility] [address], [place] [address] Mariangel Lamb APRN Post herpetic neuralgia (Primary Dx); Herpes zoster without complication; History of drug use; Essential hypertension from Last 3 Months Allergies Active Allergy Reactions Criticality Noted Date Comments Aripiprazole Other (See Comments) High convulsions Unable To Assess 10/05/2015 Patient does not take any narcotic medications Medications Nebulizer Accessories (ALL FLOW 4000 KIT) [facility] Formulary equivalent 1 Each 0 013 Active betamethasone dipropionate (DIPROLENE) 0.05 % Top OintmentIndicatio ns:Psoriasis APPLY TO AFFECTED AREA EVERY DAY 15 g 2 022 Active fluticasone propionate (FLONASE) 50 mcg/actuation Nasl [place], SuspensionIndicat ions:Moderate persistent asthma, uncomplicated SPRAY 1 SPRAY INTO EACH NOSTRIL EVERY DAY 32 mL 1 022 Active albuterol (VENTOLIN HFA) 90 mcg/actuation Inhl HFA Aerosol InhalerIndication s:Encounter for medication refill INHALE 1 TO 2 PUFFS BY MOUTH EVERY 4 HOURS NEEDED FOR WHEEZING 18 Each 023 Active rifAXIMin (XIFAXAN) 550 mg Oral TabletIndications :Irritable bowel syndrome with diarrhea Take 1 Tablet by mouth 3 times daily. 42 Tablet 2 024 Active albuterol (PROVENTIL) 2.5 mg /3 mL (0.083 %) Inhl Solution for NebulizationIndic ations:Influenza, Acute bronchitis, unspecified organism Take 3 mL by nebulization every 4 hours as needed for Wheezing. 150 mL 1 024 Active atorvastatin (LIPITOR) 40 mg Oral TabletIndications :Essential hypertension Take 1 Tablet by mouth nightly. 90 Tablet 2 024 Active amLODIPine (NORVASC) 5 mg Oral TabletIndications :Essential hypertension Take 1 Tablet by mouth daily. 90 Tablet 2 024 Active pantoprazole (PROTONIX) 40 mg Oral Tablet, Delayed Release (E.C.)Indications :Annual physical exam Take 1 Tablet by mouth daily. 90 Tablet 3 024 Active hydroCHLOROthiazi de (MICROZIDE) 12.5 mg Oral CapsuleIndication s:Essential hypertension Take 1 Capsule by mouth daily. 90 Capsule 2 024 Active montelukast (SINGULAIR) 10 mg Oral TabletIndications :Annual physical exam Take 1 Tablet by mouth nightly. 90 Tablet 2 024 Active losartan (COZAAR) 50 mg Oral TabletIndications :Essential hypertension Take 1 Tablet by mouth 2 times daily. 180 Tablet 2 024 Active tiZANidine (ZANAFLEX) 2 mg Oral TabletIndications :Chronic low back pain with sciatica, sciatica laterality unspecified, unspecified back pain laterality TAKE 1 TABLET BY MOUTH THREE TIMES A DAY 270 Tablet 024 Active tadalafiL (CIALIS) 5 mg Oral TabletIndications :BPH without urinary obstruction Take 1 Tablet by mouth as needed for Erectile Dysfunction. 90 Tablet 2 024 Active diclofenac (VOLTAREN) 1 % Top GelIndications:Bi lateral thumb pain,Foot tendinitis APPLY 2 GRAMS TOPICALLY 4 TIMES DAILY DIRECTED. 100 g 1 024 Active Capsaicin 0.1 % Top CreamIndications: Post herpetic neuralgia,Herpes zoster with complication Apply 1 Application topically 2 times daily. 56.6 g 1 024 Active nortriptyline (PAMELOR) 50 mg Oral CapsuleIndication s:Post herpetic neuralgia Take 1 Capsule by mouth nightly. 30 Capsule 3 024 Active colestipoL (COLESTID) 1 gram Oral TabletIndications :Irritable bowel syndrome with diarrhea Take 1 Tablet by mouth 2 times daily. 60 Tablet 11 024 Active VENTOLIN HFA 90 mcg/actuation Inhl HFA Aerosol InhalerIndication s:Upper respiratory tract infection, unspecified type INHALE 2 PUFFS BY MOUTH EVERY 4 HOURS NEEDED FOR WHEEZE 18 Each 2 024 Active loperamide (IMODIUM) 2 mg Oral CapsuleIndication s:Irritable bowel syndrome with diarrhea Take 1 Capsule by mouth 3 times daily as needed for Diarrhea. 90 Capsule 024 Active gabapentin (NEURONTIN) 800 mg Oral TabletIndications :Post herpetic neuralgia,Herpes zoster without complication Take 1 Tablet by mouth 3 times daily for 90 days. 90 Tablet 2 024 2024 Active celecoxib (CELEBREX) 200 mg Oral CapsuleIndication s:Generalized osteoarthritis of multiple sites TAKE 1 CAPSULE BY MOUTH TWICE A DAY 60 Capsule 2 024 Active tamsulosin (FLOMAX) 0.4 mg Oral CapsuleIndication s:BPH without urinary obstruction Take 1 Capsule by mouth nightly. 60 Capsule 1 024 Active budesonide-formot Sterling (SYMBICORT) 160-4.5 mcg/actuation Inhl HFA Aerosol InhalerIndication s:History of asthma INHALE 2 PUFFS INTO THE LUNGS TWICE A DAY 30.6 Each 024 Active budesonide-formot Sterling (SYMBICORT) 160-4.5 mcg/actuation Inhl HFA Aerosol InhalerIndication s:History of asthma INHALE 2 PUFFS INTO THE LUNGS TWICE A DAY 30.6 Each 1 024 2023 Discontinued tamsulosin (FLOMAX) 0.4 mg Oral CapsuleIndication s:BPH without urinary obstruction TAKE 2 CAPSULES BY MOUTH EVERY DAY AT NIGHT 180 Capsule 024 2023 Discontinued clotrimazole (MYCELEX) 10 mg MM Darius Take 1 Tablet by mouth 3 times daily for 14 days. 42 Tablet 1 024 2023 Active Problems Patient Care Coordination No te Formatting of this note migh t be different from the original. For Prior Auth on medication call Id number is [id number] DENZEL: 01/06/2020 as expected [facility] - Marcio Pruitt MD Interventional Pain Protocol: Denzel report completed (EVERY 3 MONTHS) ( 04/01/24 ) Pharmacy: [facility]/pharmacy #[id number] [place] [address] - [address] [place] [address] Spine Center additional info (Transportation, WC, Compound, No Show, PPW) Problem Noted Date Diagnosed Date Gastroesophageal reflux disease 04/05/2024 Acute interstitial pneumonia 01/31/2024 Community acquired pneumonia 01/31/2024 Assessment & Plan (05/29/2024 1:46 PM EST): Orders: XR CHEST PA AND LATERAL; Future CBC WITH DIFF; Future COMPREHENSIVE METABOLIC PANEL; Future OH PRESSURIZED/NONPRESSURIZED INHALATION TREATMENT COPD, moderate 08/16/2021 Nodule of right lung 06/26/2021 COVID-19 03/24/2021 Rectal bleeding 07/30/2020 Overview (07/30/2020): Added automatically from request for surgery [id number] Diarrhea 07/30/2020 Overview (07/30/2020): Added automatically from request for surgery [id number] 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 Stable now. Immunizations Name Administration Dates Next Due Influenza Patient Reported 03/18/2019,04/21/2010 Influenza Seasonal Injectable 03/07/2009, 008 Influenza Vaccine Quadrivalent 03/20/2018,2016,03/10/2016 Influenza Vaccine Quadrivalent PF 06/21/2023 Influenza Vaccine, Unspecified Formulation 03/18 Influenza Virus Vaccine Quad rivalant, Flublok 04/25/2022,04/13/2020 PPD Test 12/20/2010 Pneumococcal Conjugate Vaccine 20 Valent 023 Pneumococcal Polysaccharide 23 Valent 03/10/2016 ,04/21/2010 Tdap 03/18/2019,12/26/2018,01/15/2014 Zoster Recombinant 06/21/2018,11/28/2017 Social History Tobacco Use Types Packs/Day Years Used Date Smoking Tobacco: Never Passive Smoke Exposure: Never Smokeless Tobacco: Current Snuff Tobacco Cessation:Ready to Q uit: Not Asked; Counseling Given: Not Answered Alcohol Use Standard Drinks/Week Comments No 0 (1 standard drink = 0.6 oz pur e alcohol) Overall Financial Resource Strain (CARDIA) Answe r Date Recorded How hard is it for you to pa y for the very basics like food, housing, medical care, and heating? Not hard at all 10/07/2020 PHQ-2 Answer Date Recorded PHQ-2 Total Score 0 03/18/2024 Hunger Vital Sign Answer Date Recorded Within the past 12 months, y ou worried that your food would run out before you got the money to buy more. Never true 10/08/19 21 Within the past 12 months, t he food you bought just didn't last and you didn't have money to get more. Never true 10/07/2020 PRAPARE - Transportation Answer Date Re corded In the past 12 months, has l ack of transportation kept you from medical appointments or from getting medications? No 09/24 In the past 12 months, has l ack of transportation kept you from meetings, work, or from getting things needed for daily living? No 10/07/2020 Sex and Gender Information Value Date Recorded Sex Assigned at Not on file Legal Sex Male 8:00 PM EDT Gender Identity Not on file Sexual Orientation Not on file Last Filed Vital Signs Vital Sign Reading Time Taken Comments Blood Pressure 134/84 05/29/2024 1:16 PM EST Pulse 90 05/29/2024 1:16 PM EST Temperature 37.3 ??C (99.1 ??F) 05/29/2024 1:16 PM ES T Respiratory Rate 16 05/29/2024 1:16 PM EST Oxygen Saturation 97% 05/29/2024 1:16 PM EST Inhaled Oxygen Concentration - - Weight 104.3 kg (230 lb) 05/29/2024 1:16 PM EST Height 170.2 cm (5' 7 ) 04/29/2024 11:45 AM EST Body Mass Index 36.02 04/29/2024 11:45 AM EST Functional Status * Is the person deaf or does he/she have serious difficulty hearing? Answer Date of Assessment Author No 03/18/2024 1:32 PM Nuno Mcclure MA * Is the person blind or does he/she have serious difficulty seeing even when wearing glasses? Answer Date of Assessment Author No 03/18/2024 1:32 PM Nuno Mcclure MA * Does this person have serious difficulty walking or climbing stairs? Answer Date of Assessment Author No 03/18/2024 1:32 PM Nuno Mcclure MA * Does this person have difficulty dressing or bathing? Answer Date of Assessment Author No 03/18/2024 1:32 PM Nuno Mcclure MA * Because of a physical, mental or emotional condition, does this person have difficulty doing errands alone such as visiting a doctor's office or shopping? Answer Date of Assessment Author No 03/18/2024 1:32 PM Nuno Mcclure MA Mental Status * Because of a physical, mental or emotional condition, does this person have serious difficulty concentrating, remembering or making decisions? Answer Entry Date Author No 03/18/2024 1:32 PM Nuno Mcclure MA Plan of Treatment Upcoming Encounters Date Type Department Care Team (Late st Contact Info) Description 06/28/2024 9:40 AM EST Clinical Support [facility] [address] [place] [address] 11/19/2024 1:40 PM EDT Office Visit [facility] Neurology [facility] [address] [place] [id number] Lyndsay Brewer, DO [address] [place] [address] Goals Goal Patient Goal Type Associated Problems Recent Progress Patient-Stated? Author Blood Pressure < 140/90 Blood Pressure 134/84(2023 1:16 PM EST) No Yana Choi, RMA Eat better, exercise, reach an ideal body weight General No Yana Choi, RMA Stay Tobacco Free Lifestyle No Yana Choi RMA Medical Devices Implanted Type Area Immigration Case Worker Device Identifier Shelf Expiration Date Model / Serial / Lot 2009 Yohan Left Knee To Ankle Plate And Screw Left Foot Buckle Right Eye Retina Repair Screws Left Elbow Mesh Right Inguinal Hernia Liner Acetabular R3 Xlpe 20 D Od58 Mm Id40 Mm - [id number] Implanted:Qty : 1 on 07/26/2017 by Augie Ramires MD at [facility] Left: Hip [employer]:ORTHO 08/01/2026 [id number] / / [id number] Head Femoral Oxinium Od40 Mm Modular - [id number] Implanted:Qty : 1 on 07/26/2017 by Augie Ramires MD at [facility] Left: Hip [employer]:ORTHO 03/04/2027 [id number] / / [id number] Sleeve Orthopedic Smf Titanium +0 06/08 Taper Modular - [id number] Implanted:Qty : 1 on 07/26/2017 by Augie Ramirse MD at [facility] Left: Hip [employer]:ORTHO 09/07/2026 [id number] / / [id number] Eaton Iconix 1.4mm With 1 Strand #2 Forced Fiber - [id number] Implanted:Qty : 2 on 11/29/2019 by Kenny Loja MD at [facility] Right: Shoulder CRISTINA:ENDOSCO PY [id number] 04/25/2021 [id number] / / [id number] Procedures Procedure Name Priority Date/Time Associated Diagnosis Comments GMED COLONOSCOPY Routine 08/18/2020 10:4 5 AM EST COLOGUARD Routine 08/27/2019 6:38 AM EST from Last 3 Months or Most Recently Relevant to Health Maintenance Results * GMED COLONOSCOPY (08/18/2020 10:45 AM EST) 08/18/2020 10:4 5 AM EST Impressions [facility] - 08/18/2020 12:44 PM EST Normal mucosa in the terminal ileum. Normal mucosa in the whole colon. (Biopsy). Moderate diverticulosis of the the left side of the colon. Internal and external hemorrhoids. Polyp (6 mm) in the ascending colon. (Polypectomy). Plan: Await pathology results Colonoscopy in 5 years due to family history. office visit after results are back to discuss findings This section is an excerpt of the full report. Michael Herr MD GI PROCEDURE ORDERABLES Fi nal Result [facility] [address] [id number] * COLOGUARD (08/27/2019 6:38 AM EST) COLOGUARD CLINICAL REPORT Negative Not Applicable [facility] Comment: A negative result indicates a low likelihood that a colorectal cancer (CRC) or an advanced adenoma (adenomatous polyps with more advanced pre-malignant features) is present. The chance that a person with a negative Cologuard test has a colorectal cancer is less than 1 in 1500 (negative predictive value >99.9%) or has an advanced adenoma is less than 5.3% (negative predictive value 94.7%). These data are based on a prospective cross-sectional screening study of 10,000 individuals at average risk for colorectal cancer who were screened with both Cologuard and colonoscopy. (Shelly Marquez et al, N Engl J Med 2014;370(14):7793-9556) COLOGUARD RE-SCREENING RECOMMENDATION: Periodic routine colorectal cancer screening is an important part of preventive healthcare for asymptomatic persons at average risk for colorectal cancer. Following a negative Cologuard result, the [employer] Cancer Society and U.S. Multi-Society Task Force screening guidelines recommend a Cologuard re-screening interval of 3 years. References: [employer] Cancer Society (ACS). Colorectal cancer prevention and early detection. [place], [place]: [employer] Cancer Society; [updated 2015Oct 17]. https://www.cancer.org/cancer/krpuy-vrtbpi-ixzysk/dsgryiutz-kgwsmqatw-xxyfulb/ac s-rec ommendations.html. Accessed February 23, 2018; Irving MEHTA, David RETANA, Hazel WILLETT, Colorectal Cancer Screening: Recommendations for Physicians and Patients from the U.S. Multi-Society Task Force on Colorectal Cancer Screening, Am J Gastroenterology 2017; 112:8522-9794. Test Type: Composite algorithmic analysis of stool DNA-biomarkers with hemoglobin immunoassay. ??Quantitative values of individual biomarkers are not reportable and are not associated with individual biomarker result reference ranges. Precautions and Limitations: Cologuard is intended for colorectal cancer screening of adults of either sex, 50 years or older, who are at typical average-risk for colorectal cancer. A negative Cologuard test result does not guarantee the absence of colorectal cancer or advanced adenoma (pre-cancer). Patients with a negative Cologuard test result should be advised to continue participating in a colorectal cancer screening program. Cologuard may produce a positive result, even though a colonoscopy may not find colorectal cancer or precancerous polyps. The performance of Cologuard has been established in a cross sectional study (i.e., single point in time). Performance has not been evaluated in adults who have been previously tested with Cologuard or in patients less than 50 years of age. Cologuard has been approved for use by the U.S. FDA. Cologuard performance data in a 10,000 patient pivotal study using colonoscopy as the reference method can be accessed at the following location: www.[facility]/results. Additional description of the Cologuard test process, warnings and precautions can be found at www.cologuardtest.com. Rx Only. Stool specimen (specimen) 08/27/2019 6:38 AM EST 08/28/2019 2:37 PM EST us Michelle Anusha Garrido SOLUTIONS CONSULTANT [employer] - ORDERABLES F inal Result [employer], [place] [address], [facility] [employer] [address] [place] [address] from Last 3 Months or Most Recently Relevant to Health Maintenance Insurance [place] Advance Directives For more information, please contact: [phone] * Full Code (Latest Code Status on File) Date Activated Date Inactivated Comments 07/26/2017 3:46 PM 07/27/2017 8:24 PM Care Teams Performance Specialist Relationship Specialty Start Date End Date Steffanie Fulton APRN [address] [place] [address] PCP - General Nurse Practitioner 07/26/21
--- OUTSIDE RECORDS SUMMARY | 2024-05-29 15:33 | XMS_ITS | Encounter Summary ---
Author Organization [place] [address] Care Team Providers Care Neon Sign Worker Name Role Phone Steffanie Fulton APRN Primary Care Provider [phone]- [phone] Reason for Visit * Reason Onset Date Comments Prior Authorization 04/02/2024 Right meloe r and lesser ONB Encounter Details Date Type Department Care Team (Late Contact Info) Description 04/02/2024 Telephone [facility] [address] [place] [address] Marcio Pruitt MD [address] [place] [address] Prior Authorization (Right greater and lesser ONB) Social History Tobacco Use Types Packs/Day Years Used Date Smoking Tobacco: Never Passive Smoke Exposure: Never Smokeless Tobacco: Current Snuff Alcohol Use Standard Drinks/Week Comments No 0 [...] on file Sexual Orientation Not on file documented as of this encounter Functional Status * Is the person deaf or does he/she have serious difficulty hearing? Answer Date of Assessment Author No 03/18/2024 1:32 PM EDT Nuno Sarabia MA * Is the person blind or does he/she have serious difficulty seeing even when wearing glasses? Answer Date of Assessment Author No 03/18/2024 1:32 PM EDT Nuno Sarabia MA * Does this person have serious difficulty walking or climbing stairs? Answer Date of Assessment Author No 03/18/2024 1:32 PM EDT Nuno Sarabia MA * Does this person have difficulty dressing or bathing? Answer Date of Assessment Author No 03/18/2024 1:32 PM EDT Nuno Sarabia MA * Because of a physical, mental or emotional condition, does this person have difficulty doing errands alone such as visiting a doctor's office or shopping? Answer Date of Assessment Author No 03/18/2024 1:32 PM EDT Nuno Sarabia MA documented as of this encounter Mental Status * Because of a physical, mental or emotional condition, does this person have serious difficulty concentrating, remembering or making decisions? Answer Entry Date Author No 03/18/2024 1:32 PM EDT Nuno Sarabia MA documented in this encounter Miscellaneous Notes * Telephone Encounter - Milly Vazquez Scribe - 04/16/2024 8:31 AM EDT 3rd attempt LM for Pt to return call to schedule Right ONB with JG in . MCM sent * Telephone Encounter - Milly Vazquez Scribe - 04/11/2024 10:25 AM EDT LM for Pt to return call to schedule Right ONB with JG in . MCM sent * Telephone Encounter - Milly Vazquez Scribe - 04/02/2024 3:16 PM EDT Auth complete. Schedule Right ONB with JG. Must have a Fountain Dispenser. Auth Dates: 04/02/2024 - 06/25/2024 * Telephone Encounter - Milly Vazquez Scribe - 04/02/2024 9:00 AM EDT Auth requested and will schedule once complete. JG * Telephone Encounter - Milly Vazquez Scribe - 04/02/2024 9:00 AM EDT ----- Message from Machine Carton Marker Yamilex sent at 04/01/2024 2:48 PM EDT ----- Regarding: ONB Auth Please submit Auth for Right greater and lesser ONB in w/ JG. Thank you. documented in this encounter Plan of Treatment Upcoming Encounters Date Type Department Care Team (Late st Contact Info) Description 06/28/2024 9:40 AM EST Clinical Support [facility] [place] [address] [place] [phone] 11/19/2024 1:40 PM EDT Office Visit [facility] Neurology [facility] [address] [place] [address] Lyndsay Brewer DO [address] [place] [address] documented as of this encounter Goals Goal Patient Goal Type Associated Problems Recent Progress Patient-Stated? Author Blood Pressure < 140/90 Blood Pressure 134/84(2023 1:16 PM EST) No Yana Choi RMA Eat better, exercise, reach an ideal body weight General No Yana Choi RMJane Stay Tobacco Free Lifestyle No Yana Choi RMA documented as of this encounter Visit Diagnoses Not on filedocumented in this encounter Care Teams Neon Sign Worker Relationship Specialty Start Date End Date Steffanie Fulton APRN [address] [place] [address] PCP - General Nurse Practitioner 07/26/21 documented as of this encounter
--- OUTSIDE RECORDS SUMMARY | 2024-05-29 15:33 | XMS_ITS | Encounter Summary ---
Author [place] [address] Care Team Providers Care Rehabilitation Specialist Name Role Phone Kirstin Steffanie KENT Primary Care Provider [phone]- [phone] Reason for Visit * Reason Comments Medication Refill Encounter Details Date Type Department Care Team (Late st Contact Info) Description 04/05/2024 Refill [facility] [address] [place] [phone] Steffanie Fulton SNAGGER [address] [place] [address] Medication Refill Social History Tobacco Use Types Packs/Day Years Used Date Smoking Tobacco: Never Passive Smoke Exposure: Never Smokeless Tobacco: Current Snuff Alcohol Use Standard Drinks/Week Comments No 0 (1 standard drink = 0.6 oz pur e alcohol) Overall Financial Resource Strain (CARDIA) Gingere r Date Recorded How hard is it [...] Nuno Sarabia MA documented in this encounter Ordered Prescriptions Prescription Sig Dispense Quantity Refills Last Filled Start Date End Date VENTOLIN HFA 90 mcg/actuation Inhl HFA Aerosol InhalerIndications: Upper respiratory tract infection, unspecified type INHALE 2 PUFFS BY MOUTH EVERY 4 HOURS NEEDED FOR WHEEZE 18 Each 2 04/08/2024 documented in this encounter Miscellaneous Notes * Telephone Encounter - Mckenzie Islas CPhT - 04/08/2024 9:54 AM EDT VENTOLIN HFA 90 mcg/actuation Inhl HFA Aerosol Inhaler Refill request deferred to the office: Medication list includes multiple doses or duplicate therapy. Please update medication list. documented in this encounter Plan of Treatment Upcoming Encounters Date Type Department Care Team (Late st Contact Info) Description 06/28/2024 9:40 AM EST Clinical Support [facility] [address] [place] [phone] 11/19/2024 1:40 PM EDT Office Visit [facility] Neu[facility] [address] [place] [address] Lyndsay Brewer DO [address] [facility] [address] [place] [address] documented as of this encounter Goals Goal Patient Goal Type Associated Problems Recent Progress Patient-Stated? Author Blood Pressure < 140/90 Blood Pressure 134/84(2023 1:16 PM EST) No Yana Choi RMA Eat better, exercise, reach an ideal body weight General No Yana Choi RMA Stay Tobacco Free Lifestyle No Yana Choi RMA documented as of this encounter Visit Diagnoses Diagnosis Upper respiratory tract infection, unspecified type documented in this encounter Discontinued Medications Medication Sig Discontinue Reason Start Date End Da te albuterol (PROVENTIL HFA;VENTOLIN HFA) 90 mcg/actuation Inhl HFA Aerosol InhalerIndications:Upper respiratory tract infection, unspecified type Inhale 2 Puffs into the lungs every 4 hours as needed for Wheezing. 08/17/2023 04/08/2024 documented as of this encounter Care Teams Rehabilitation Specialist Relationship Specialty Start Date End Date Steffanie Fulton APRN [address] [place] [address] PCP - General Nurse Practitioner 07/26/21 documented as of this encounter
--- OUTSIDE RECORDS SUMMARY | 2024-05-29 15:33 | XMS_ITS | Encounter Summary ---
Author Organization [place] [address] Care Team Providers Care Design Engineer Name Role Phone KirstinSteffanie YOLI Primary Care Provider [phone]- [phone] Reason for Visit * Reason Comments Herpes Zoster Encounter Details Date Type Department Care Team (Late st Contact Info) Description 04/23/2024 3:15 PM EDT Office Visit [facility] [address] [place] [phone] Deanna Diaz APRN [address] [place] [address] Post herpetic neuralgia; Herpes zoster without complication Social History Tobacco Use Types Packs/Day Years [...] on file documented as of this encounter Last Filed Vital Signs Vital Sign Reading Time Taken Comments Blood Pressure 132/90 04/23/2024 3:14 PM EDT Pulse 91 04/23/2024 3:14 PM EDT Temperature 37.5 ??C (99.5 ??F) 04/23/2024 3:14 PM ED T Respiratory Rate - - Oxygen Saturation 96% 04/23/2024 3:14 PM EDT Inhaled Oxygen Concentration - - Weight 105.2 kg (232 lb) 04/23/2024 3:14 PM EDT Height 170.2 cm (5' 7 ) 04/23/2024 3:14 PM EDT Body Mass Index 36.34 04/23/2024 3:14 PM EDT documented in this encounter Functional Status * Is the [...] Refills Last Filled Start Date End Date gabapentin (NEURONTIN) 800 mg Oral TabletIndications: Post herpetic neuralgia,Herpes zoster without complication Take 1 Tablet by mouth 3 times daily for 90 days. 90 Tablet 2 04/23/2024 07/22/2024 documented in this encounter Progress Notes * Deanna Diaz, YOLI - 04/23/2024 3:15 PM EDT Vitals: 04/23/24 1514 BP: 132/90 Pulse: 91 Temp: 99.5 ??F (37.5 ??C) TempSrc: Temporal SpO2: 96% Weight: 232 lb (105.2 kg) Height: 5' 7 (1.702 m) Body mass index is 36.34 kg/m??. SUBJECTIVE: Chief Complaint Patient presents with ??? Herpes Zoster HPI: Pt is in office for refills of gabapentin. Saw neurology 03/27/24 PLAN: Post herpetic neuralgia- following shingles outbreak over right neck/scalp region. Continue Neurontin 800 TID per primary, will increase Pamelor to 50 mg nightly. Discussed lidocaine patch but he will stick with the OTC spray for now. Agree that narcotics are not ideal for nerve pain particularly given his remote hx of substance abuse. Will refer to pain management to see if a nerve block in an option as well. Saw Spine 04/01/24 Plan: - - Recommend right greater and lesser ocnb. Risks, benefits and alternatives were reviewed with the patient, who agreed to the procedure. - Continue current medication as prescribed by outside provider. - PT/HEP: Provided patient with instructional packet for physician directed home exercise regimen to be performed daily for the next 6-8 weeks and Recommend continued physician directed home exercise - We discussed that he will continue Physical Therapy for at least 4-6 weeks prior to re-evaluation. Review of Systems Constitutional: Negative. HENT: Negative. Respiratory: Negative. Cardiovascular: Negative. Gastrointestinal: Negative. Musculoskeletal: Negative. Skin: Negative. Psychiatric/Behavioral: Negative. OBJECTIVE: Physical Exam Constitutional: Appearance: Normal appearance. HENT: Head: Normocephalic. Cardiovascular: Rate and Rhythm: Normal rate and regular rhythm. Heart sounds: Normal heart sounds. Pulmonary: Effort: Pulmonary effort is normal. Breath sounds: Normal breath sounds. Skin: General: Skin is warm and dry. Neurological: Mental Status: He is alert. Mental status is at baseline. Psychiatric: Mood and Affect: Mood normal. Behavior: Behavior normal. Thought Content: Thought content normal. Assessment Assessment & Plan Post herpetic neuralgia Orders: ??? gabapentin (NEURONTIN) 800 mg Oral Tablet; Take 1 Tablet by mouth 3 times daily for 90 days. Herpes zoster without complication Orders: ??? gabapentin (NEURONTIN) 800 mg Oral Tablet; Take 1 Tablet by mouth 3 times daily for 90 days. Refill gabapentin. Follow-up in 3 months. Follow-up with neurology and pain as scheduled. documented in this encounter Plan of Treatment Upcoming Encounters Date Type Department Care Team (Late st Contact Info) Description 06/28/2024 9:40 AM EST Clinical Support [facility] [address] [place] [phone] 11/19/2024 1:40 PM EDT Office Visit [facility] Neurology [facility] [address] [place] [phone] Lyndsya Brewer DO [address] [place] [address] documented as of this encounter Goals Goal Patient Goal Type Associated Problems Recent Progress Patient-Stated? Author Blood Pressure < 140/90 Blood Pressure 134/84(2023 1:16 PM EST) Yana Pina RMA Eat better, exercise, reach an ideal body weight General No Yana Choi RMA Stay Tobacco Free Lifestyle No Yana Choi RMA documented as of this encounter Visit Diagnoses Diagnosis Post herpetic neuralgia Herpes zoster with other nervous system complications Herpes zoster without complication documented in this encounter Discontinued Medications Medication Sig Discontinue Reason Start Date End Da te gabapentin (NEURONTIN) 800 mg Oral TabletIndications:Post herpetic neuralgia,Herpes zoster without complication Take 1 Tablet by mouth 3 times daily for 30 days. Reorder 03/12/2024 04/23/2024 documented as of this encounter Care Teams Design Engineer Relationship Specialty Start Date End Date Steffanie Fulton APRN [address] [place] [address] PCP - General Nurse Practitioner 07/26/21 documented as of this encounter
--- OUTSIDE RECORDS SUMMARY | 2024-05-29 15:33 | XMS_ITS | Clinical Summary ---
Author Organization [facility] Address [address] [place] [address] Phone Care Team Providers Care Car Storer Name Role Phone Steffanie Fulton APRN Primary Care Provider +1- [phone] Allergies Active Allergy Reactions Criticality Noted Date Comments Aripiprazole Other (See Comments) High convulsions Unable To Assess 10/05/2015 Patient does not take any narcotic medications Medications Nebulizer Accessories (ALL FLOW 4000 KIT) [facility] Formulary equivalent 1 Each 0 013 Active betamethasone dipropionate (DIPROLENE) 0.05 % Top OintmentIndicatio ns:Psoriasis APPLY TO AFFECTED AREA EVERY DAY 15 g 2 022 Active fluticasone propionate (FLONASE) 50 mcg/actuation Nasl [place], SuspensionIndicat ions:Moderate persistent asthma, uncomplicated SPRAY 1 [...] MOUTH TWICE A DAY 60 Capsule 2 Active tamsulosin (FLOMAX) 0.4 mg Oral CapsuleIndication s:BPH without urinary obstruction Take 1 Capsule by mouth nightly. 60 Capsule 1 Active budesonide-formot [place] (SYMBICORT) 160-4.5 mcg/actuation Inhl [...] Auth on medication call Id number is [id number] DENZEL: 01/06/2020 as expected [facility] - Marcio Pruitt MD Interventional Pain Protocol: Denzel report completed (EVERY 3 MONTHS) ( 04/01/24 ) Pharmacy: [id number] [place] [address] [address] [facility] [phone] Spine Center additional info (Transportation, WC, Compound, No Show, PPW) Problem Noted Date Diagnosed Date Gastroesophageal reflux disease 04/05/2024 Acute interstitial pneumonia 01/31/2024 Community acquired pneumonia 01/31/2024 Assessment & Plan (05/29/2024 1:46 PM EST): Orders: XR CHEST PA AND LATERAL; Future CBC WITH DIFF; Future COMPREHENSIVE METABOLIC PANEL; Future DE PRESSURIZED/NONPRESSURIZED INHALATION TREATMENT COPD, moderate 08/16/2021 Nodule of right lung 06/26/2021 COVID-19 03/24/2021 Rectal bleeding 07/30/2020 Overview (07/30/2020): Added automatically from request for surgery [id number] Diarrhea 07/30/2020 Overview (07/30/2020): Added automatically from request for surgery [id number] dipper fish 02/07/2019 Status post left hip replacement 07/26/2017 Irritable bowel syndrome with diarrhea 8 BPH with urinary obstruction 03/14/2016 Asthma 06/02/2010 Hip pain, left Essential hypertension Eczema OA (osteoarthritis) EPHRAIM (generalized anxiety disorder) Polyp of colon Resolved Problems Problem Noted Date Diagnosed Date Resolved Date Bipolar disorder in remission 10/12/2015 06/17/2020 Overview (06/17/2020): Was related to substance abuse. Stable now. Encounters Date Type Department Care Team Description 05/29/2024 1:45 PM EST Office Visit [facility] [address] [place] [phone] Kirstin, Steffanie, YOLI Community acquired pneumonia, unspecified laterality (Primary Dx); SOB (shortness of breath) 05/07/2024 Refill [facility] [address] [place] [address] Steffanie Fulton GUARD MANAGER Medication Refill; Central Patient Navigator Outreach (med refill 100) 05/02/2024 Telephone [facility] [address] [place] [address] Steffanie Fulton GUARD MANAGER Medication Refill; Central Patient Navigator Outreach (Med Refill 30 day ) 04/29/2024 11:45 AM EST Office Visit [facility] [address] [place] [address] Mariangel Lamb APRN PHN (postherpetic neuralgia) (Primary Dx); Laryngitis 04/28/2024 Refill [facility] [address] [place] [address] Ligia Wiley MD Medication Refill 04/23/2024 3:15 PM EDT Office Visit [facility] [address] [place] [phone] Deanna Diaz APRN Post herpetic neuralgia; Herpes zoster without complication 04/23/2024 Travel 04/21/2024 Refill [facility] [address] [place], [place] [address] Deanna Diaz APRN Medication Refill 04/05/2024 1:40 PM EDT Office Visit [facility] [address] [place] [address] Michael Mckeon MD Irritable bowel syndrome with diarrhea (Primary Dx); Gastroesophageal reflux disease, unspecified whether esophagitis present 04/05/2024 Refill [facility] [address] [place] [phone] Steffanie Fulton APRN Medication Refill 04/02/2024 Telephone [facility] [address] [facility] [place] [address] Marcio Pruitt MD Prior Authorization (Right greater and lesser ONB) 04/01/2024 11:40 AM EDT Office Visit [facility] [address] [place] [phone] Marcio Pruitt MD PHN (postherpetic neuralgia) (Primary Dx); Facial pain; Scalp pain 03/27/2024 10:20 AM EDT Office Visit [facility] Neurology [facility] [address] [place] [address] Lyndsay Brewer DO Post herpetic neuralgia (Primary Dx) 03/27/2024 Telephone [place] [address] [place] [phone] Glenis Boles, Front Line Leader New Patient 03/25/2024 Orders Only [facility] [address] [place] [address] Rocio Sarabia MA Herpes zoster without complication (Primary Dx) 03/20/2024 9:45 AM EDT Office Visit [facility] [address] [place] [address] Steffanie Fulton APRN Post herpetic neuralgia (Primary Dx); Herpes zoster with complication 03/18/2024 1:45 PM EDT Office Visit [facility] [address] [place] [address] Deanna Diaz APRN Post herpetic neuralgia (Primary Dx) 03/12/2024 9:45 AM EDT Office Visit [facility] [address] [place] [address] Deanna Diaz, GUARD MANAGER Herpes zoster with complication (Primary Dx); Post herpetic neuralgia; Herpes zoster without complication 03/08/2024 1:45 PM EDT Office Visit [facility] [address] [place] [address] Deanna Diaz APRN Post herpetic neuralgia; Herpes zoster without complication 03/04/2024 10:15 AM EDT Office Visit [facility] [address] [place] [address] Mariangel Lamb APRN Post herpetic neuralgia (Primary Dx); Herpes zoster without complication; History of drug use; Essential hypertension from Last 3 Months Immunizations Name Administration Dates Next Due Influenza Patient Reported 03/18/2019,04/21/2010 Influenza Seasonal Injectable 03/07/2009, 008 Influenza Vaccine Quadrivalent 03/20/2018,2016,03/10/2016 Influenza Vaccine Quadrivalent PF 06/21/2023 Influenza Vaccine, Unspecified Formulation 03/18 Influenza Virus Vaccine Quad rivalant, [place] 04/25/2022,04/13/2020 PPD Test 12/20/2010 Pneumococcal Conjugate Vaccine 20 Valent 023 Pneumococcal Polysaccharide 23 Valent 03/10/2016 ,04/21/2010 Tdap 03/18/2019,12/26/2018,01/15/2014 Zoster Recombinant 06/21/2018,11/28/2017 Surgical History Surgery Date Site/Laterality Comments ELBOW SURGERY LEFT LIGAMENT REPAIR FRACTURE SURGERY left leg, after accident TOTAL HIP ARTHROPLASTY 06/26/2009 - 06/25/2010 Left HIP ARTHROPLASTY 07/26/2017 Left LEFT TOTAL HIP ARTHROPLASTY- REVISION-ANTERIOR ; Surgeon: Augie Ramires MD; Location: [facility] OR; Service: Orthopedics Medical devices from this surgery are in the Medical Devices section. KNEE SURGERY LEFT ACL RECONSTRUCTION KNEE SURGERY LEFT ARTHROSCOPIES IRRAGATION X 7 FOR INFECTION KNEE SURGERY RIGHT ARTHROSCOPIC MENICUS REPAIR HERNIA REPAIR RIGHT INGUINAL WITH MESH EYE SURGERY RIGHT RETINA REPAIR WITH BUCKLE SHOULDER ARTHROSCOPY 11/29/2019 Right RIGHT SHOULDER ARTHROSCOPIC ROTATOR CUFF REPAIR DECOMPRESSION ACROMIOPLASTY, ACROMIOCLAVICULAR JOINT EXCISION; Surgeon: Kenny Loja MD; Location: [facility]; Service: Orthopedics Medical devices from this surgery are in the Medical Devices section. COLONOSCOPY 08/18/2020 N/A Colonoscopy with biopsy and cold snare polypectomy; Surgeon: Michael Mckeon MD; Location: [facility] END[facility]; Service: Endoscopy Medical History Medical History Date Comments Arthritis Asthma 06/02/2010 Bipolar affective (HCC) Pneumothorax Heart attack (HCC) Hypertension Pneumonia Blood transfusion Heroin abuse (HCC) Quit August 31, 2012 Opiate dependence (HCC) Remissio n x 5 years IBS (irritable bowel syndrome) EPHRAIM (generalized anxiety disorder) Family History Medical History Relation Name Comments No Known Problems Brother 1 Cancer Father stomach No Known Problems Maternal Grandfather Diabetes Maternal Grandmother Diabetes Mother Heart Disease Mother High Blood Pressure Mother High Cholesterol Mother Cancer Paternal Grandmother Diabetes living Sister 2 1 sister pas sed Relation Name Status Comments Brother 1 Alive Father Maternal Grandfather Maternal Grandmother Mother Paternal Grandfather Paternal Grandmother Sister 2 Alive Social History Tobacco Use Types Packs/Day Years [...] on file Sexual Orientation Not on file Obstetrics History Last Filed Vital Signs Vital Sign Reading [...] Mass Index 36.02 04/29/2024 11:45 AM EST Plan of Treatment Upcoming Encounters Date Type Department Care Team (Late st Contact Info) Description 06/28/2024 9:40 AM EST Clinical Support [facility] [address] [place] [address] 11/19/2024 1:40 PM EDT Office Visit [facility] Neurology [facility] [address] [place] [address] Lyndsay Brewer [address] [place] [address] Health Maintenance Due Date Last Done Comments Hepatitis B Vaccine (1 of 3 - 19+ 3-dose series) 11/10/1986 FIT 11/10/2012 Sigmoidoscopy 11/10/2012 Virtual Colonography 11/10/2012 Cologuard 08/26/2022 08/27/2019 COVID-19 Vaccine (1 - 2023-2 5 season) 2024 Influenza Vaccine (#1) 2024 , 04/25/2022, 04/13/2020, Additional history exists Wellness Exam Medicare 11/29/2024 11/29/2023, 2020 Colon Cancer Screening 08/18/2025 Colonoscopy 08/18/2025 08/18/2020 DTaP/TDaP/Td (4 - Td or Tdap) 03/18/2029, 12/26/2018, 01/15/2014 Zoster Completed 06/21/2018, 11/28/2017 Pneumococcal Vaccine 0-64 Completed 2022, 03/10/2016, 04/21/2010 Goals Goal Patient Goal Type Associated Problems Recent Progress Patient-Stated? Author Blood Pressure < 140/90 Blood Pressure 134/84(2023 1:16 PM EST) No Yana Choi RMA Eat better, exercise, reach an ideal body weight General No Yana Choi RMA Stay Tobacco Free Lifestyle No Yana Choi RMA Medical Devices Implanted Type Area Grounds Keeper Device Identifier Shelf Expiration Date Model / Serial / Lot 2009 Yohan Left Knee To Ankle Plate And Screw Left Foot Buckle Right Eye Retina Repair Screws Left Elbow Mesh Right Inguinal Hernia Liner Acetabular R3 Xlpe 20 D Od58 Mm Id40 Mm - [id number] Implanted:Qty : 1 on 07/26/2017 by Augie Ramires MD at [facility] Left: Hip [employer]:ORTHO 08/01/2026 [id number] / / [id number] Head Femoral Oxinium Od40 Mm Modular - [id number] Implanted:Qty : 1 on 07/26/2017 by Augie Ramires MD at [facility] Left: Hip [employer]:ORTHO 03/04/2027 [id number] / / [id number] Sleeve Orthopedic Smf Titanium +0 06/08 Taper Modular - [id number] Implanted:Qty : 1 on 07/26/2017 by Augie Ramires MD at [facility] Left: Hip [employer]:ORTHO 09/07/2026 [id number] / / [id number] [place] Iconix 1.4mm With 1 Strand #2 Forced Fiber - [id number] Implanted:Qty : 2 on 11/29/2019 by Kenny Loja MD at [facility] Right: Shoulder CRISTINA:ENDOSCO PY [id number] 04/25/2021 [id number] / / [id number] Procedures Procedure Name Priority Date/Time Associated Diagnosis Comments GMED COLONOSCOPY Routine 08/18/2020 10:4 5 AM EST COLOGUARD Routine 08/27/2019 6:38 AM EST from Last 3 Months or Most Recently Relevant to Health Maintenance Results * GMED COLONOSCOPY (08/18/2020 10:45 AM EST) 08/18/2020 10:[address] [facility] - 08/18/2020 12:44 PM EST Normal [...] is an excerpt of the full report. us Michael Herr MD GI PROCEDURE ORDERABLES Fi nal Result [facility] [address] [place] [id number] * COLOGUARD (08/27/2019 6:38 AM EST) COLOGUARD CLINICAL REPORT Negative Not Applicable [facility] Comment: A negative result indicates [...] Marquez et al, N Engl J Med 2014;370(14):4975-9700) COLOGUARD RE-SCREENING RECOMMENDATION: Periodic routine colorectal cancer screening is an important part of preventive healthcare for asymptomatic persons at average risk for colorectal cancer. Following a negative Cologuard result, the [place] [employer] Society and U.S. Multi-Society Task Force screening guidelines recommend a Cologuard re-screening interval of 3 years. References: [place] [employer] Society (ACS). Colorectal cancer prevention and early detection. [place], [place]: [place] [employer]; [updated 2016 Oct 17]. https://www.cancer.org/cancer/tlkxy-ucrnkr-rkbffs/yvivoyuma-jkdmsvfjx-gdtfkkf/ac s-rec ommendations.html. Accessed February 23, 2018; Irving DK, David CR, Hazel MartinezK, Colorectal Cancer Screening: Recommendations for Physicians and Patients from the U.S. Multi-Society Task Force on Colorectal Cancer Screening, Am J Gastroenterology 2017; 112:0373-2355. Test Type: Composite algorithmic analysis of stool [...] can be accessed at the following location: www.[employer].Lightning[employer]/results. Additional description of the Cologuard test process, warnings and precautions can be found at www.cologuardtest.com. Rx Only. Stool specimen (specimen) 08/27/2019 6:38 AM EST 08/28/2019 2:37 PM EST us Michelle Garrido APRN [employer] - ORDERABLES F inal Result eleni, [employer] [facility] [place] [address], [facility] [employer] [facility] [place] [address] from Last 3 Months or Most Recently Relevant to Health Maintenance Insurance [place]ICARE [place] PART [place] Advance Directives For more information, please contact: [phone] * Full Code (Latest Code Status on File) Date Activated Date Inactivated Comments 07/26/2017 3:46 PM 07/27/2017 8:24 PM Care Teams Car Storer Relationship Specialty Start Date End Date Steffanie Fulton APRN [address] [place] [id number] PCP - General Nurse Practitioner 07/26/21
--- OUTSIDE RECORDS SUMMARY | 2024-05-29 15:33 | XMS_ITS | Encounter Summary ---
Author Organization [place] [address] Care Team Providers Care National Park Ranger Name Role Phone Steffanie Fulton APRN Primary Care Provider +1- [phone] Reason for Referral * Consultation (Routine) - Pending Review Specialty Diagnoses / Procedures Referred By Contac t Referred To Contact Diagnoses Post herpetic neuralgia Procedures GA OFFICE/OP CONSLTJ NEW/EST PT MOD MDM 40 MINUTES Lyndsay Brewer DO [address] [place] [address] Phone: tel: fax: Marcio Pruitt MD [address] [place] [address] Phone: tel: fax: Referral ID Status Reason Start Date Expiration Date Visits Requested Visits Authorized [id number] Pending Review Specialty Services Required 03/27/2024 03/27/2025 99 99 Reason for Visit * Reason Comments Other Post herpetic neural marisa, right side if head and neck, davidson,itches, sharp at times, right ear also * Consultation (Routine) - Pending Review Specialty Diagnoses / Procedures Referred By Contac t Referred To Contact Neurology Diagnoses Herpes zoster without complication Procedures GA OFFICE/OP CONSLTJ NEW/EST PT MOD MDM 40 MINUTES Deanna Diaz APRN [address] [place] [address] Phone: tel: fax: [facility]PT[facility] [address] [place] [address] Phone: tel: fax: Referral ID Status Reason Start Date Expiration Date V isits Requested Visits Authorized [id number] Pending Review 03/25/2024 03/25/2025 99 99 Encounter Details Date Type Department Care Team (Late st Contact Info) Description 03/27/2024 10:20 AM EDT Office Visit [facility] [address] [place] [address] Lyndsay Brewer DO [address] [place] [address] Post herpetic neuralgia (Primary Dx) Social History Tobacco Use Types Packs/Day Years [...] Sign Reading Time Taken Comments Blood Pressure 130/88 03/27/2024 10:24 AM EDT Pulse 62 03/27/2024 10:24 AM EDT Temperature 36.4 ??C (97.5 ??F) 03/27/2024 10:24 AM E DT Respiratory Rate - - Oxygen Saturation 97% 03/27/2024 10:24 AM EDT Inhaled Oxygen Concentration - - Weight 102.5 kg (226 lb) 03/27/2024 10:24 AM EDT Height 170.2 cm (5' 7 ) 03/27/2024 10:24 AM EDT Body Mass Index 35.4 03/27/2024 10:24 AM EDT documented in this encounter Functional Status [...] Entry Date Author No 03/18/2024 1:32 PM ADITYAT Nuno Sarabia MA documented in this encounter Ordered Prescriptions Prescription Sig Dispense Quantity Refills Last Filled Start Date End Date nortriptyline (PAMELOR) 50 mg Oral CapsuleIndications :Post herpetic neuralgia Take 1 Capsule by mouth nightly. 30 Capsule 3 03/27/2024 documented in this encounter Progress Notes * Lyndsay Brewer, DO - 03/27/2024 10:20 AM EDT Neurology Consult - [facility] Chief Complaint Patient presents with Other Post herpetic neuralgia, right side if head and neck, davidson,itches, sharp at times, right ear also HPI: Zuhair Clayton is a 58 y.o. male who was referred for consultation by Deanna Diaz APRN regarding post herpetic neuralgia. On 02/18/24 he went to the ER for an area of skin irrigation on his neck. Was given Abx for folliculitis/cellulitis. Returned the next day however with blistering rash felt to actually be Herpes Zoster outbreak. He was given antivirals and then ultimately prednisone as well upon follow up with his PCP's office. Since that time the rash has resolved however he has continued to have severe pain over the area. Describes burning, itching and a knife like sensation. The pain is worsened by light touch or heat. 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 Tried to go back for 2 days but was unbearable. Has tried multiple OTC topical creams. Lidocaine spray helps some but thinks its just the cooling effect that helps. He has been titrated up on Neurontin to 800 TID and Pamelor 25 mg nightly started a few weeks ago. Was given a few days of narcotics which were not helpful. Additionally states he has a remote hx of substance abuse and does not want to be on narcotics. Has been sober for 13 years. He has had marginal relief with treatments thus far. He was initially referred to pain management for nerve block but was told they were retired so he was referred here. Past Medical History: Diagnosis Date Arthritis Asthma 06/02/2010 Bipolar affective (HCC) Blood transfusion EPHRAIM (generalized anxiety disorder) Heart attack (HCC) Heroin abuse (HCC) Quit August Hypertension IBS (irritable bowel syndrome) Opiate dependence ([facility]) Remission x 5 years Pneumonia Pneumothorax Past Surgical History: Procedure Laterality Date COLONOSCOPY N/A 08/18/2020 Colonoscopy with biopsy and cold snare polypectomy; Surgeon: Michael Mckeon MD; Location: [facility]; Service: Endoscopy ELBOW SURGERY LEFT LIGAMENT REPAIR EYE SURGERY RIGHT RETINA REPAIR WITH BUCKLE FRACTURE SURGERY left leg, after accident HERNIA REPAIR RIGHT INGUINAL WITH MESH HIP ARTHROPLASTY Left 07/26/2017 LEFT TOTAL HIP ARTHROPLASTY- REVISION-ANTERIOR ; Surgeon: Augie Ramires MD; Location: [facility]; Service: Orthopedics KNEE SURGERY LEFT ACL RECONSTRUCTION KNEE SURGERY LEFT ARTHROSCOPIES IRRAGATION X 7 FOR INFECTION KNEE SURGERY RIGHT ARTHROSCOPIC MENICUS REPAIR SHOULDER ARTHROSCOPY Right 11/29/2019 RIGHT SHOULDER ARTHROSCOPIC ROTATOR CUFF REPAIR DECOMPRESSION ACROMIOPLASTY, ACROMIOCLAVICULAR JOINT EXCISION; Surgeon: Kenny Loja MD; Location: [facility]; Service: Orthopedics TOTAL HIP ARTHROPLASTY Left 2009 Current Outpatient Medications on File Prior to Visit Medication Sig Dispense Refill albuterol (PROVENTIL HFA;VENTOLIN HFA) 90 mcg/actuation Inhl HFA Aerosol Inhaler Inhale 2 Puffs into the lungs every 4 hours as needed for Wheezing. 1 Each 2 albuterol (PROVENTIL) 2.5 mg /3 mL (0.083 %) Inhl Solution for Nebulization Take 3 mL by nebulization every 4 hours as needed for Wheezing. 150 mL 1 albuterol (VENTOLIN HFA) 90 mcg/actuation Inhl HFA Aerosol Inhaler INHALE 1 TO 2 PUFFS BY MOUTH EVERY 4 HOURS NEEDED FOR WHEEZING 18 Each 0 amLODIPine (NORVASC) 5 mg Oral Tablet Take 1 Tablet by mouth daily. 90 Tablet 2 atorvastatin (LIPITOR) 40 mg Oral Tablet Take 1 Tablet by mouth nightly. 90 Tablet 2 betamethasone dipropionate (DIPROLENE) 0.05 % Top Ointment APPLY TO AFFECTED AREA EVERY DAY 15 g 2 budesonide-formoteroL (SYMBICORT) 160-4.5 mcg/actuation Inhl HFA Aerosol Inhaler INHALE 2 PUFFS INTO THE LUNGS TWICE A DAY 30.6 Each 1 buPROPion (WELLBUTRIN XL) 150 mg Oral Tablet Sustained Release 24 hr Take 1 Tablet by mouth every morning. 90 Tablet 3 Capsaicin 0.1 % Top Cream Apply 1 Application topically 2 times daily. 56.6 g 1 celecoxib (CELEBREX) 200 mg Oral Capsule Take 1 Capsule by mouth 2 times daily. 60 Capsule 2 colestipoL (COLESTID) 1 gram Oral Tablet TAKE 1 TABLET BY MOUTH 2 TIMES DAILY. NEEDS AN [id number] Tablet 0 dextromethorphan-guaiFENesin (MUCINEX DM) 30-600 mg Oral Tablet Sustained Release 12 hr Take 1 Tablet by mouth every 12 hours. 20 Tablet 0 diclofenac (VOLTAREN) 1 % Top Gel APPLY 2 GRAMS TOPICALLY 4 TIMES DAILY DIRECTED. 100 g 1 fluticasone propionate (FLONASE) 50 mcg/actuation Nasl [place], Suspension SPRAY 1 SPRAY INTO EACH NOSTRIL EVERY DAY 32 mL 1 gabapentin (NEURONTIN) 800 mg Oral Tablet Take 1 Tablet by mouth 3 times daily for 30 days. 90 Tablet 0 hydroCHLOROthiazide (MICROZIDE) 12.5 mg Oral Capsule Take 1 Capsule by mouth daily. 90 Capsule 2 losartan (COZAAR) 50 mg Oral Tablet Take 1 Tablet by mouth 2 times daily. 180 Tablet 2 montelukast (SINGULAIR) 10 mg Oral Tablet Take 1 Tablet by mouth nightly. 90 Tablet 2 Nebulizer Accessories (ALL FLOW 4000 KIT) [facility] Formulary equivalent 1 Each 0 oxyCODONE (ROXICODONE) 5 mg Oral Tablet Take 5 mg by mouth every 6 hours. pantoprazole (PROTONIX) 40 mg Oral Tablet, Delayed Release (E.C.) Take 1 Tablet by mouth daily. 90 Tablet 3 rifAXIMin (XIFAXAN) 550 mg Oral Tablet Take 1 Tablet by mouth 2 times daily. 9 Tablet 0 rifAXIMin (XIFAXAN) 550 mg Oral Tablet Take 1 Tablet by mouth 3 times daily. 42 Tablet 2 tadalafiL (CIALIS) 5 mg Oral Tablet Take 1 Tablet by mouth as needed for Erectile Dysfunction. 90 Tablet 2 tamsulosin (FLOMAX) 0.4 mg Oral Capsule TAKE 2 CAPSULES BY MOUTH EVERY DAY AT NIGHT 180 Capsule 0 tamsulosin (FLOMAX) 0.4 mg Oral Capsule Take 1 Capsule by mouth nightly. 180 Capsule 0 tiZANidine (ZANAFLEX) 2 mg Oral Tablet TAKE 1 TABLET BY MOUTH THREE TIMES A DAY 270 Tablet 0 Current Facility-Administered Medications on File Prior to Visit Medication Dose Route Frequency Provider Last Rate Last Admin bupivacaine HCl (MARCAINE) 0.5 % (5 mg/mL) injection 2 mL 2 mL Intra-articular Augie Ramires MD 2 mL at 08/16/21 0945 Social History Socioeconomic History Marital status: Legally Spouse name: Not on file Number of children: Not on file Years of education: Not on file Highest education level: Not on file Occupational History Not on file Tobacco Use Smoking status: Never Passive exposure: Never Smokeless tobacco: Current Types: Snuff Vaping Use Vaping status: Never Used Substance and Sexual Activity Alcohol use: No Drug use: No Comment: in past stated been in recovery for 6 years 2012 Sexual activity: Not on file Comment: single partner Other Topics Concern Not on file Social History Narrative Not on file Social Drivers of Health Financial Resource Strain: Low Risk (10/07/2020) Overall Financial Resource Strain (CARDIA) Difficulty of Paying Living Expenses: Not hard at all Food Insecurity: No Food Insecurity (10/07/2020) Hunger Vital Sign Worried About Running Out of Food in the Last Year: Never true Ran Out of Food in the Last Year: Never true Transportation Needs: No Transportation Needs (10/07/2020) PRAPARE - Transportation Lack of Transportation (Medical): No Lack of Transportation (Non-Medical): No Physical Activity: Not on file Stress: Not on file Social Connections: Unknown (04/03/2023) [facility] Family and Community Support Help with Day-to-Day Activities: Not on file Lonely or Isolated: Not on file Intimate Partner Violence: Unknown (04/03/2023) Received from [facility], [facility] Abuse Screen Unsafe at Home or Work/School: Not on file Feels Threatened by Someone?: Not on file Does Anyone Keep You from Contacting Others or Doint Things Outside the Home?: Not on file Physical Sign of Abuse Present: Not on file Housing Stability: Unknown (04/03/2023) Received from [facility], [facility] Housing Stability Current Living Arrangements: Not on file Potentially Unsafe Housing Conditions: Not on file Family History Problem Relation Age of Onset Diabetes Mother Heart Disease Mother High Blood Pressure Mother High Cholesterol Mother Cancer Father 40 stomach Other (Diabetes living) Sister 1 sister passed No Known Problems Brother Diabetes Maternal Grandmother No Known Problems Maternal Grandfather Cancer Paternal Grandmother Review of Systems All systems reviewed and negative except as per HPI. Please see scanned image for details. Physical Exam Vitals: 03/27/24 1024 BP: 130/88 Pulse: 62 Temp: 97.5 ??F (36.4 ??C) SpO2: 97% Body mass index is 35.4 kg/m??. Gen: Well developed, well nourished, no acute distress HEENT: NC/AT. Cardiovascular: Regular rate and rhythm, no murmurs/rubs/gallops, no carotid bruits noted Resp: Clear to auscultation bilaterally, no wheezes/rales/rhonchi. Abd: Soft, non-tender, non-distended Ext: No cyanosis, clubbing, or edema Neurology Exam Mental Status: Alert, oriented to person, place, and date. Attention and concentration normal. Fundof knowledge appropriate for age. Recent and remote memory intact. Language: Speech fluent. Able to name and repeat without difficulty. Follows commands without difficulty. Cranial Nerves: II: Visual barker full to confrontation. Pupils 2 to 1mm OU. III, IV, : EOMI. No nystagmus V: Facial sensation symmetric to light touch and pinprick VII: Facial movements symmetric, smile symmetric VIII: Hearing intact to finger rub bilaterally IX, X: Palate raises midline, no uvula deviation XI: Shoulder shrug symmetric XII: Tongue protrudes midline Motor: 5/5 strength in all 4 extremities. Normal muscle bulk. Tone is normal in all 4 extremities. No tremor or cogwheel rigidity. Sensation: Intact in all 4 extremities to light touch and vib Reflexes: 2/4 bilateral biceps, triceps, brachioradialis. 2/4 bilateral patellar, 2/4 bilateral Achilles. Coordination: [id number] and rapid alternating movements intact. No dysmetria or dysdiadochokinesia. Station and Gait: Narrow stance and unremarkable gait. Good arm swing and stride length. Imaging and Labs: Lab Results Component Value Date NA 140 01/31/2024 K 4.1 01/31/2024 CL 102 01/31/2024 CO2 26 01/31/2024 BUN 18 01/31/2024 CREATININE 1.05 01/31/2024 Lab Results Component Value Date WBC 6.5 01/31/2024 RBC 4.60 01/31/2024 HGB 14.9 01/31/2024 HCT 45.6 01/31/2024 MCV 99.1 01/31/2024 PLT 178 01/31/2024 Lab Results Component Value Date [id number] 252 05/21/2021 No results found for: CKTOTAL Lab Results Component Value Date ZNVB68XD 31.4 05/21/2021 [id number] 36.7 06/17/2020 Lab Results Component Value Date HGBA1C 5.7 (H) 01/31/2024 HGBA1C 5.6 11/01/2023 HGBA1C 6.2 (H) 11/23/2022 Lab Results Component Value Date TSHREFLEX 1.540 01/31/2024 Lab Results Component Value Date TSH 2.140 10/14/2015 Assessment and Plan: Zuhair Clayton is a 58 y.o. male seen in neurologic assessment on 03/27/24 regarding post herpetic neuralgia. Post herpetic neuralgia- following shingles outbreak over [...] nerve block in an option as well. He will call in 4 weeks for further recommendations if no better. I will otherwise see him back in 6-7 months. All questions answered satisfactorily. Thank you for allowing me to participate in the care of Zuhair Clayton . Please do no hesitate to contact me with any further questions or concerns. Lyndsay Brewer DO 03/27/24 12:13 PM documented in this encounter Miscellaneous Notes * Patient Instructions - Lyndsay Brewer DO - 03/27/2024 10:20 AM EDT Treatment Plan -continue Gabapentin at current dose -increase nortriptyline to 50 mg nightly -referral to pain management for possible nerve block Call if no better in 4 weeks documented in this encounter Plan of Treatment Upcoming Encounters Date Type Department Care Team (Lubna vasques Contact Info) Description 06/28/2024 9:40 AM EST Clinical Support [facility] [address] [place] [phone] 11/19/2024 1:40 PM EDT Office Visit [facility] [address] [facility] [place] [id number] Lyndsay Brewer, DO [address] [place] [address] Scheduled Referrals Name Type Priority Associated Diagnoses Orde r Schedule AMB REFERRAL TO [facility] Outpatient Referral Routine Post herpetic neuralgia Ordered: 03/27/2024 documented as of this encounter Goals Goal Patient Goal Type Associated Problems Recent Progress Patient-Stated? Author Blood Pressure < 140/90 Blood Pressure 134/84(2023 1:16 PM EST) No Yana Choi RMA Eat better, exercise, reach an ideal body weight General No Yana Choi RMJane Stay Tobacco Free Lifestyle No Yana Choi RMA documented as of this encounter Visit Diagnoses Diagnosis Post herpetic neuralgia- Primary Herpes zoster with other nervous system complications documented in this encounter Discontinued Medications Medication Sig Discontinue Reason Start Date End Da te nortriptyline (PAMELOR) 25 mg Oral CapsuleIndications:Post herpetic neuralgia Take 1 Capsule by mouth nightly. 03/18/2024 03/27/2024 documented as of this encounter Care Teams National Park Ranger Relationship Specialty Start Date End Date Steffanie Fulton APRN [address] [place] [address] PCP - General Nurse Practitioner 07/26/21 documented as of this encounter
--- OUTSIDE RECORDS SUMMARY | 2024-05-29 15:33 | XMS_ITS | Encounter Summary ---
Author Organization [place] [address] Care Team Providers Care Coping Machine Assembler Name Role Phone KirstinSteffanie YOLI Primary Care Provider +1- [phone] Reason for Visit * Reason Onset Date Comments Medication Refill Central Patient Navigator Outreach 05/02/2024 Med Refill 30 day Encounter Details Date Type Department Care Team (Late Contact Info) Description 05/02/2024 Telephone [facility] [address] [email or web address] [address] Steffanie Fulton APRN [email or web address] [place], [place] [phone] Medication Refill; Central Patient Navigator Outreach (Med Refill 30 day ) Social History Tobacco Use Types Packs/Day Years [...] Refills Last Filled Start Date End Date tamsulosin (FLOMAX) 0.4 mg Oral CapsuleIndications :BPH without urinary obstruction Take 1 Capsule by mouth nightly. 60 Capsule 1 05/03/2024 tamsulosin (FLOMAX) 0.4 mg Oral CapsuleIndications :BPH without urinary obstruction TAKE 2 CAPSULES BY MOUTH EVERY DAY AT NIGHT 60 Capsule 05/03/2024 documented in this encounter Miscellaneous Notes * Telephone Encounter - Kerri Ornelas MA - 05/03/2024 1:49 PM EST Medication sent and patient advised. 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 Please review for extension of medication and call patient if refills will not be extended.. * Telephone Encounter - Delmy Hanna CPhT - 05/03/2024 11:37 AM EST Tamsulosin Future Visit: N/A Last Assessed Visit: N/A Follow-Up Date: N/A Appointment protocol failed. One carter supply sent to pharmacy. Routed to Patient Navigators. documented in this encounter Plan of Treatment Upcoming Encounters Date Type Department Care Team (Late st Contact Info) Description 06/28/2024 9:40 AM EST Clinical Support [facility] [email or web address] [place], [address] [phone] 11/19/2024 1:40 PM EDT Office Visit [facility] [address] [place] [address] Lyndsay Brewer DO [address] [place] [address] documented as of this encounter Goals Goal Patient Goal Type Associated Problems Recent Progress Patient-Stated? Author Blood Pressure < 140/90 Blood Pressure 134/84(2023 1:16 PM EST) No Yana Choi RMA Eat better, exercise, reach an ideal body weight General No Yana Choi RMA Stay Tobacco Free Lifestyle No Yana Choi RMA documented as of this encounter Visit Diagnoses Diagnosis BPH without urinary obstruction Hypertrophy of prostate without urinary obstruction and other lower urinary tract symptoms (LUTS) documented in this encounter Discontinued Medications Medication Sig Discontinue Reason Start Date End Da te tamsulosin (FLOMAX) 0.4 mg Oral CapsuleIndications:BPH without urinary obstruction TAKE 2 CAPSULES BY MOUTH EVERY DAY AT NIGHT 02/05/2024 05/03/2024 tamsulosin (FLOMAX) 0.4 mg Oral CapsuleIndications:BPH without urinary obstruction TAKE 2 CAPSULES BY MOUTH EVERY DAY AT NIGHT Reorder 05/03/2024 05/03/2024 documented as of this encounter Care Teams Coping Machine Assembler Relationship Specialty Start Date End Date Steffanie Fulton APRN [address] [email or web address] [address] PCP - General Nurse Practitioner 07/26/21 documented as of this encounter
--- OUTSIDE RECORDS SUMMARY | 2024-05-29 15:33 | XMS_ITS | Encounter Summary ---
Author Organization [place] [address] Care Team Providers Care Shoe Shanker Name Role Phone KirstinSteffanie YOLI Primary Care Provider +1- [phone] Reason for Visit * Reason Onset Date Comments Medication Refill Central Patient Navigator Outreach 05/07/2024 med refill 100 Encounter Details Date Type Department Care Team (Late st Contact Info) Description 05/07/2024 Refill [facility] [address] [place] [phone] Steffanie Fulton APRN [address] [place] [address] Medication Refill; Central Patient Navigator Outreach (med refill 100) Social History Tobacco Use Types Packs/Day Years [...] Refills Last Filled Start Date End Date budesonide-formoter oL (SYMBICORT) 160-4.5 mcg/actuation Inhl HFA Aerosol InhalerIndications: History of asthma INHALE 2 PUFFS INTO THE LUNGS TWICE A DAY 30.6 Each 05/09/2024 documented in this encounter Miscellaneous Notes * Telephone Encounter - Sydney Vigil - 05/09/2024 9:56 AM EST Patient Outreach: Medication refill appointment, carter count: Med Refill 100 Primary Care Attempt Count: 1st Care Gaps Addressed ion implant machine operator: Appointment Outcome: Left message to return call at and MyChart Message Sent. * Telephone Encounter - Dawn Sharma CPhT - 05/09/2024 9:49 AM EST Symbicort - Future Visit: N/A Last Assessed Visit: 11/23/23 Follow-Up Date: 05/25/24 All protocols passed. Refills approved and sent to requesting pharmacy. Routed to [facility] if applicable. documented in this encounter Plan of Treatment Upcoming Encounters Date Type Department Care Team (Late st Contact Info) Description 06/28/2024 9:40 AM EST Clinical Support [facility] [address] [place] [address] 11/19/2024 1:40 PM EDT Office Visit [facility] [address] [place] [address] Lyndsay Brewer DO [address] [place] [address] documented as of this encounter Goals Goal Patient Goal Type Associated Problems Recent Progress Patient-Stated? Author Blood Pressure < 140/90 Blood Pressure 134/84(2023 1:16 PM EST) No Yana Choi RMA Eat better, exercise, reach an ideal body weight General No Yana Choi RMA Stay Tobacco Free Lifestyle No Yana Choi RMA documented as of this encounter Visit Diagnoses Diagnosis History of asthma Personal history of other diseases of respiratory system documented in this encounter Discontinued Medications Medication Sig Discontinue Reason Start Date End Da te budesonide-formoteroL (SYMBICORT) 160-4.5 mcg/actuation Inhl HFA Aerosol InhalerIndications:Histo ry of asthma INHALE 2 PUFFS INTO THE LUNGS TWICE A DAY 12/01/2023 05/09/2024 documented as of this encounter Care Teams Shoe Shanker Relationship Specialty Start Date End Date Steffanie Fulton APRN [address] [place] [address] PCP - General Nurse Practitioner 07/26/21 documented as of this encounter
--- OUTSIDE RECORDS SUMMARY | 2024-05-29 15:33 | XMS_ITS | Continuity of Care Document ---
Author Organization [facility] Address [address] [place] [address] Phone Care Team Providers Care Booster Plant Operator Name Role Phone Arvin Pennington MD Unavailable Unavailable Allergies, Adverse Reactions, Alerts Substance Reaction Status Criticality aripiprazole Active No Information No Known Allergies Resolved No Inform ation Medications Medication Instructions Dosage Effective Dates (start - stop) Status Comments No Drug Therapy Prescribed Procedures Procedure Date Office/outpatient visit,est, mod 2023 MRI Upr Ext Joint wo Contrast 4 Office/outpatient visit,est, mod 2023 Office/outpatient visit,new, mod 2022 Drain Or inject major jointor bursa X-ray exam of knee, 4+ views X-ray exam tib/fib, 2 views Dexamethasone sodium phos Marcaine Ko elas w/ condyle pads & demi Advance Directives Directive Yes / No Effective Date File Name No Information Encounters Encounter Description Practice Location Reason(s) For Visit Diagnoses Date Provider Providers Copied on Encounter [facility], [address] [place], [address], tel:[phone] [facility] No Information 4 Gorge Sheridan. [address] [place], [place], [id number] , [place]. tel:[phone] Referring Provider: Arvin Medeiros, [place], [address] . tel:[phone] Office/outpa tient visit,est, mod [facility], [facility] [address] [place], [place], [facility], tel:[phone] [address] [place] Narciso Hummel Bilateral primary osteoarthritis of knee 4 Gorge Sheridan. [address], [place], [id number] , [place]. tel:[phone] Referring Provider: Arvin Medeiros, [address] [place], [address] . tel:[phone] [facility], [facility] [address] [place], [place], [facility], tel:[phone] [address] [place] [facility] No Information 4 Gorge Sheridan. [address] [place], [place], [id number] , [place]. tel:[phone] Referring Provider: Arvin Medeiros, [address] [place], [address] . tel:[phone] Office/outpa tient visit,new [facility], [facility], [facility] [place], [address], [place] tel:[phone] [address] [place] Pain in right shoulderPain in left shoulderSprain of right sternoclavicular joint, initial encounter 4 Gorge Sheridan. [address] [place], [place], [id number] , [place]. tel:[phone] Referring Provider: Arvin Medeiros, [address] [place], [address] . tel:[phone] Office/outpa tient visit,[facility], [facility] [address] [place], [place], [facility], [place] tel:[phone] [address] [place] Bilateral primary osteoarthritis of knee 3 Gorge Sheridan. [address], [place], [id number] , [place]. tel:[phone] Referring Provider: Arvin Medeiros, [address] [facility], [place], [address] . tel:[phone] [facility], [address] [place], [address], [place] tel:[phone] Elif Hummel No Information 3 Gorge Sheridan. [address] [facility], [place], [place], [id number] , [place]. tel:[phone] Referring Provider: Arvin Medeiros, [address] [place], [address] . tel:[phone] Family History Family Member Type Diagnosis Age At Onset No Information Payers Payer name Insurance type Covered constitution party ID Authoramya lucy(s) [place] [id number] Social History Type Description Quantity Date Captured Comments Sex Male Smoking Status No Information Sexual Orientation Choose not to disclose Gender Identity Choose not to disclose 024 Chief Complaint And Reason For Visit No Information Reason For Referral Reason For Referral No Information Plan Of Treatment Date Type Action Status Appointment Zuhair Whitlock BOOKED History Of Present Illness Encounter Date Complaint History Of Prese nt Illness shoulder knee Functional Status Date Functional Assessmen t No Information Medications Administered Medication Instructions Dosage Effective Dates (start - stop) Status Comments No Drug Therapy Prescribed Instructions Date Instruction Additional Infor mation No Information Assessments Type Assessment Date No Information Patient Care Teams Name Effective Dates (start - stop) Status Members No Information
--- OUTSIDE RECORDS SUMMARY | 2024-05-29 15:33 | XMS_ITS | Encounter Summary ---
Author Organization [place] [address] Care Team Providers Care Form Drafter Name Role Phone Steffanie Fulton APRN Primary Care Provider [phone] Reason for Visit * Reason Comments New Patient shingles 8 weeks ago Facial Pain Neck Pain * Consultation (Routine) - Pending Review Specialty Diagnoses / Procedures Referred By Gus kunz Referred To Contact Diagnoses Post herpetic neuralgia Procedures [place] OFFICE/OP CONSLTJ NEW/EST PT MOD MDM 40 MINUTES Lyndsay Brewer DO [address] [place] [id number] Phone: tel: fax: Marcio Pruitt MD [address] [place] [address] Phone: tel: fax: Referral ID Status Reason Start Date Expiration Date Visits Requested Visits Authorized [id number] Pending Review Specialty Services Required 03/27/2024 03/27/2025 99 99 Encounter Details Date Type Department Care Team (Late st Contact Info) Description 04/01/2024 11:40 AM EDT Office Visit [facility] [address] [place] [address] Marcio Pruitt MD [address] [place] [address] PHN (postherpetic neuralgia) (Primary Dx); Facial pain; Scalp pain Social History Tobacco Use Types Packs/Day Years [...] Sign Reading Time Taken Comments Blood Pressure - - Pulse - - Temperature - - Respiratory Rate - - Oxygen Saturation - - Inhaled Oxygen Concentration - - Weight 103.7 kg (228 lb 9.6 oz) 024 11:36 AM EDT Height 170.2 cm (5' 7 ) 04/01/2024 11:3 6 AM EDT Body Mass Index 35.8 04/01/2024 11:36 AM EDT documented in this encounter Functional [...] Nuno Sarabia MA documented in this encounter Progress Notes * Marcio Pruitt MD - 04/01/2024 11:40 AM EDT Images from the original note were not included. 1. Did you complete advanced imaging? No 2. Have you completed 6 weeks of physical therapy? No. 3. Have you been treated by a chiropractor? No 4. Have you completed a Home Exercise Program? No. 5. Have you completed and interventional pain management procedures in the past? No 6. What is your highest pain level throughout the day? 7 Subjective Subjective: Patient ID: Zuhair Clayton is a 58 y.o. male who presents today for Chief Complaint Patient presents with ??? New Patient shingles 8 weeks ago ??? Facial Pain ??? Neck Pain HPI: Zuhair Clayton is a 58 y.o. year old male who was referred to our clinic by Lyndsay Brewer,* for consultation, evaluation and treatment regarding their pain. Their pain has been present for several weeks. Their pain started after a specific injury: shingles flare. Symptoms have remained stable since symptom onset. Their symptoms have previously been evaluated by their primary care provider and an emergency medicine physician. Prior diagnostic studies include none. Prior pharmacologic treatment includes acetaminophen, NSAID's, anti-depressants, neuropathic agents/anti-convulsants, and corticosteroids. The patient has previously undergone medications, which resulted in [id number] pain relief. No history of prior spine surgery. Says that started with pain and then lesions over the occipital nerve distribution on right over his ear as well. Mentions that wind or clothing aggravates pain and feels like burning sensation. Says that he has gotten slightly better with the increase in Pamelor. Characterization of Primary Pain: Location of Pain: Neck - Ear Pain Ratin/10 on NRS Quality: aching, burning, and tingling Temporal Profile: constant with intermittent exacerbations Referral Pattern: over ear, scalp, neck Exacerbating Factors: increased activity and wind Relieving Factors: rest and medications Associated Symptoms: Patient denies any red flag symptoms such as urinary/bowel incontinence, progressive weakness in the extremities, and/or saddle anesthesia. Review of Systems HENT: Positive for ear pain. Psychiatric/Behavioral: Positive for sleep disturbance. All other systems reviewed and are negative. Past Medical History: Diagnosis Date ??? Arthritis ??? Asthma 06/02/2010 ??? Bipolar affective (HCC) ??? Blood transfusion ??? EPHRAIM (generalized anxiety disorder) ??? Heart attack (HCC) ??? Heroin abuse (HCC) Quit August ??? Hypertension ??? IBS (irritable bowel syndrome) ??? Opiate dependence (HCC) Remission x 5 years ??? Pneumonia ??? Pneumothorax Past Surgical History: Procedure Laterality Date ??? COLONOSCOPY N/A 08/18/2020 Colonoscopy with biopsy and cold snare polypectomy; Surgeon: Michael Mckeon MD; [facility]; Service: Endoscopy ??? ELBOW SURGERY LEFT LIGAMENT REPAIR ??? EYE SURGERY RIGHT RETINA REPAIR WITH BUCKLE ??? FRACTURE SURGERY left leg, after accident ??? HERNIA REPAIR RIGHT INGUINAL WITH MESH ??? HIP ARTHROPLASTY Left 07/26/2017 LEFT TOTAL HIP ARTHROPLASTY- REVISION-ANTERIOR ; Surgeon: Augie Ramires MD; Location: [facility] MA[facility]; Service: Orthopedics ??? KNEE SURGERY LEFT ACL RECONSTRUCTION ??? KNEE SURGERY LEFT ARTHROSCOPIES IRRAGATION X 7 FOR INFECTION ??? KNEE SURGERY RIGHT ARTHROSCOPIC MENICUS REPAIR ??? SHOULDER ARTHROSCOPY Right 11/29/2019 RIGHT SHOULDER ARTHROSCOPIC ROTATOR CUFF REPAIR DECOMPRESSION ACROMIOPLASTY, ACROMIOCLAVICULAR JOINT EXCISION; Surgeon: Kenny Loja MD; Location: [facility]; Service: Orthopedics ??? TOTAL HIP ARTHROPLASTY Left 2010 Family History Problem Relation Age of Onset ??? Diabetes Mother ??? Heart Disease Mother ??? High Blood Pressure Mother ??? High Cholesterol Mother ??? Cancer Father 40 stomach ??? Other (Diabetes living) Sister 1 sister passed ??? No Known Problems Brother ??? Diabetes Maternal Grandmother ??? No Known Problems Maternal Grandfather ??? Cancer Paternal Grandmother Social History Socioeconomic History ??? Marital status: Legally Spouse name: Not on file ??? Number of children: Not on file ??? Years of education: Not on file ??? Highest education level: Not on file Occupational History ??? Not on file Tobacco Use ??? Smoking status: Never Passive exposure: Never ??? Smokeless tobacco: Current Types: Snuff Vaping Use ??? Vaping status: Never Used Substance and Sexual Activity ??? Alcohol use: No ??? Drug use: No Comment: in past stated been in recovery for 6 years 2013 ??? Sexual activity: Not on file Comment: single partner Other Topics Concern ??? Not on file Social History Narrative ??? Not on file Social Drivers of Health Financial Resource Strain: Low Risk (10/07/2020) Overall Financial Resource Strain (CARDIA) ??? Difficulty of Paying Living Expenses: Not hard at all Food Insecurity: No Food Insecurity (10/07/2020) Hunger Vital Sign ??? Worried About Running Out of Food in the Last Year: Never true ??? Ran Out of Food in the Last Year: Never true Transportation Needs: No Transportation Needs (10/07/2020) PRAPARE - Transportation ??? Lack of Transportation (Medical): No ??? Lack of Transportation (Non-Medical): No Physical Activity: Not on file Stress: Not on file Social Connections: Unknown (04/03/2023) [facility] Family and Community Support ??? Help with Day-to-Day Activities: Not on file ??? Lonely or Isolated: Not on file Intimate Partner Violence: Unknown (04/03/2023) [facility] Abuse Screen ??? Unsafe at Home or Work/School: Not on file ??? Feels Threatened by Someone?: Not on file ??? Does Anyone Keep You from Contacting Others or Doint Things Outside the Home?: Not on file ??? Physical Sign of Abuse Present: Not on file Housing Stability: Unknown (04/03/2023) Received from [facility], [facility] Housing Stability ??? Current Living Arrangements: Not on file ??? Potentially Unsafe Housing Conditions: Not on file Patients past medical, surgical, family and social histories were reviewed and updated. There were no changes except as noted. Current Outpatient Medications: ??? albuterol (PROVENTIL HFA;VENTOLIN HFA) 90 mcg/actuation Inhl HFA Aerosol Inhaler, Inhale 2 Puffs into the lungs every 4 hours as needed for Wheezing., Disp: 1 Each, Rfl: 2 ??? albuterol (PROVENTIL) 2.5 mg /3 mL (0.083 %) Inhl Solution for Nebulization, Take 3 mL by nebulization every 4 hours as needed for Wheezing., Disp: 150 mL, Rfl: 1 ??? albuterol (VENTOLIN HFA) 90 mcg/actuation Inhl HFA Aerosol Inhaler, INHALE 1 TO 2 PUFFS BY MOUTH EVERY 4 HOURS NEEDED FOR WHEEZING, Disp: 18 Each, Rfl: 0 ??? amLODIPine (NORVASC) 5 mg Oral Tablet, Take 1 Tablet by mouth daily., Disp: 90 Tablet, Rfl: 2 ??? atorvastatin (LIPITOR) 40 mg Oral Tablet, Take 1 Tablet by mouth nightly., Disp: 90 Tablet, Rfl: 2 ??? betamethasone dipropionate (DIPROLENE) 0.05 % Top Ointment, APPLY TO AFFECTED AREA EVERY DAY, Disp: 15 g, Rfl: 2 ??? budesonide-formoteroL (SYMBICORT) 160-4.5 mcg/actuation Inhl HFA Aerosol Inhaler, INHALE 2 PUFFS INTO THE LUNGS TWICE A DAY, Disp: 30.6 Each, Rfl: 1 ??? buPROPion (WELLBUTRIN XL) 150 mg Oral Tablet Sustained Release 24 hr, Take 1 Tablet by mouth every morning., Disp: 90 Tablet, Rfl: 3 ??? Capsaicin 0.1 % Top Cream, Apply 1 Application topically 2 times daily., Disp: 56.6 g, Rfl: 1 ??? celecoxib (CELEBREX) 200 mg Oral Capsule, Take 1 Capsule by mouth 2 times daily., Disp: 60 Capsule, Rfl: 2 ??? colestipoL (COLESTID) 1 gram Oral Tablet, TAKE 1 TABLET BY MOUTH 2 TIMES DAILY. NEEDS AN APPOINTMENT, Disp: 60 Tablet, Rfl: 0 ??? dextromethorphan-guaiFENesin (MUCINEX DM) 30-600 mg Oral Tablet Sustained Release 12 hr, Take 1Tablet by mouth every 12 hours., Disp: 20 Tablet, Rfl: 0 ??? diclofenac (VOLTAREN) 1 % Top Gel, APPLY 2 GRAMS TOPICALLY 4 TIMES DAILY DIRECTED., Disp: 100 g, Rfl: 1 ??? fluticasone propionate (FLONASE) 50 mcg/actuation Nasl [place], Suspension, SPRAY 1 SPRAY INTO EACH NOSTRIL EVERY DAY, Disp: 32 mL, Rfl: 1 ??? gabapentin (NEURONTIN) 800 mg Oral Tablet, Take 1 Tablet by mouth 3 times daily for 30 days., Disp: 90 Tablet, Rfl: 0 ??? hydroCHLOROthiazide (MICROZIDE) 12.5 mg Oral Capsule, Take 1 Capsule by mouth daily., Disp: 90 Capsule, Rfl: 2 ??? losartan (COZAAR) 50 mg Oral Tablet, Take 1 Tablet by mouth 2 times daily., Disp: 180 Tablet, Rfl: 2 ??? montelukast (SINGULAIR) 10 mg Oral Tablet, Take 1 Tablet by mouth nightly., Disp: 90 Tablet, Rfl: 2 ??? Nebulizer Accessories (ALL FLOW 4000 KIT) [facility], Formulary equivalent, Disp: 1 Each, Rfl: 0 ??? nortriptyline (PAMELOR) 50 mg Oral Capsule, Take 1 Capsule by mouth nightly., Disp: 30 Capsule,Rfl: 3 ??? oxyCODONE (ROXICODONE) 5 mg Oral Tablet, Take 5 mg by mouth every 6 hours., Disp: , Rfl: ??? pantoprazole (PROTONIX) 40 mg Oral Tablet, Delayed Release (E.C.), Take 1 Tablet by mouth daily., Disp: 90 Tablet, Rfl: 3 ??? rifAXIMin (XIFAXAN) 550 mg Oral Tablet, Take 1 Tablet by mouth 2 times daily., Disp: 9 Tablet, Rfl: 0 ??? rifAXIMin (XIFAXAN) 550 mg Oral Tablet, Take 1 Tablet by mouth 3 times daily., Disp: 42 Tablet,Rfl: 2 ??? tadalafiL (CIALIS) 5 mg Oral Tablet, Take 1 Tablet by mouth as needed for Erectile Dysfunction., Disp: 90 Tablet, Rfl: 2 ??? tamsulosin (FLOMAX) 0.4 mg Oral Capsule, TAKE 2 CAPSULES BY MOUTH EVERY DAY AT NIGHT, Disp: 180Capsule, Rfl: 0 ??? tamsulosin (FLOMAX) 0.4 mg Oral Capsule, Take 1 Capsule by mouth nightly., Disp: 180 Capsule, Rfl: 0 ??? tiZANidine (ZANAFLEX) 2 mg Oral Tablet, TAKE 1 TABLET BY MOUTH THREE TIMES A DAY, Disp: 270 Tablet, Rfl: 0 Current Facility-Administered Medications: ??? bupivacaine HCl (MARCAINE) 0.5 % (5 mg/mL) injection 2 mL, 2 mL, Intra- articular, , Augie Ramires MD, 2 mL at 08/16/21 0945 Objective Objective: Vitals: 04/01/24 1136 Weight: 228 lb 9.6 oz (103.7 kg) Height: 5' 7 (1.702 m) Body mass index is 35.8 kg/m??. Physical Exam Vitals and nursing note reviewed. Constitutional: General: He is not in acute distress. Appearance: He is well-developed. He is not diaphoretic. HENT: Head: Normocephalic and atraumatic. Right Ear: External ear normal. Left Ear: External ear normal. Eyes: Pupils: Pupils are equal, round, and reactive to light. Cardiovascular: Rate and Rhythm: Normal rate and regular rhythm. Heart sounds: Normal heart sounds. No murmur heard. Pulmonary: Effort: Pulmonary effort is normal. No respiratory distress. Breath sounds: Normal breath sounds. Abdominal: General: There is no distension. Palpations: Abdomen is soft. Musculoskeletal: Cervical back: Normal range of motion. Skin: General: Skin is warm and dry. Neurological: Mental Status: He is alert and oriented to person, place, and time. Cranial Nerves: No cranial nerve deficit. Sensory: No sensory deficit. Psychiatric: Behavior: Behavior normal. Thought Content: Thought content normal. Judgment: Judgment normal. Image Review: No results found for this or any previous visit. No results found for this or any previous visit. No results found for this or any previous visit. No results found for this or any previous visit. No results found for this or any previous visit. No results found for this or any previous visit. No results found for this or any previous visit. Prescription Monitoring Program: 01/06/2020 12:00 AM AMB SPINE RISK TOOL (ORT) [facility] Reference Number [id number] [facility] Results as expected 12/21/2017 12:00 AM 03/29/2018 12:00 AM 08/02/2018 12:00 AM 12/04/2018 12:00 AM 03/18/2019 12:00 AM 07/19/2019 10:00 AM 01/06/2020 12:00 AM CONTROLLED SUBSTANCE [facility] Reference Number [id number] [facility] Results as expected as expected as expected as expected as expected as expected as expected No results found for: UAMPHET , LABBARB , LABBENZ , UBUPREN , UCARISO , COCAINEMETAB , UMEPERI , METHADONEAND , OPIATE , OXYCODONELVL , LABPHEN , UPROPOX , UTAPENT , UTRAMAD , CANNABINOIDM , UZOLPID , URINECREARUP , DRUGPANELINT No results found for: DRUGEXPECT , URCREATININE , ALPRAZOLAM , AHDALPRAZ , CLONAZEPAM , 7AMNCLON , DIAZEPAM , NORDIAZEPAM , FLUNITRAZ , 7AMNFLUN , FLURAZEPAM , HDXYETFLUR , LORAZEPAM , LORAZGLUC , MIDAZOLAM , AHDMIDAZ , OXAZEPAM , OXAZGLUC , TEMAZEPAM , TEMAZGLUC , TRIAZOLAM , AHDTRIAZ [facility] and most recent UDS reviewed on 04/01/2024 as available. . Assessment and Plan: Diagnoses and all orders for this visit: PHN (postherpetic neuralgia) Facial pain Scalp pain Plan: - - Recommend right greater and [...] at least 4-6 weeks prior to re-evaluation. - No follow-ups on file. Marcio Pruitt MD Interventional Pain Management [facility] documented in this encounter Plan of Treatment Upcoming Encounters Date Type Department Care Team (Late st Contact Info) Description 06/28/2024 9:40 AM EST Clinical Support [facility] [address] [place] [phone] 11/19/2024 1:40 PM EDT Office Visit [facility] Neu[facility] [address] [place] [id number] Lyndsay Brewer DO [address] [place] [address] Scheduled Referrals Name Type Priority Associated Diagnoses [...] as of this encounter Visit Diagnoses Diagnosis PHN (postherpetic neuralgia)- Primary Herpes zoster with other nervous system complications Facial pain Headache Scalp pain Headache documented in this encounter Care Teams Form Drafter Relationship Specialty Start Date End Date Steffanie Fulton APRN [address] [place] [id number] PCP - General Nurse Practitioner 07/26/21 documented as of this encounter
--- OUTSIDE RECORDS SUMMARY | 2024-05-29 15:33 | XMS_ITS | Encounter Summary ---
Author Organization [place] [address] Care Team Providers Care Actuarial Trainee Name Role Phone Steffanie Fulton APRN Primary Care Provider [phone]- [phone] Reason for Visit * Reason Comments Hoarse Encounter Details Date Type Department Care Team (Late st Contact Info) Description 04/29/2024 11:45 AM EST Office Visit [facility] [address] [place] [address] Mariangel Lamb APRN [address] [facility] [address] PHN (postherpetic neuralgia) (Primary Dx); Laryngitis Social History Tobacco Use Types Packs/Day Years [...] Sign Reading Time Taken Comments Blood Pressure 136/92 04/29/2024 11:45 AM EST Pulse 82 04/29/2024 11:45 AM EST Temperature 36.7 ??C (98.1 ??F) 04/29/2024 11:[address] Respiratory Rate - - Oxygen Saturation - - Inhaled Oxygen Concentration - - Weight 105.2 kg (232 lb) 04/29/2024 11:45 AM EST Height 170.2 cm (5' 7 ) 04/29/2024 11:45 AM EST Body Mass Index 36.34 04/29/2024 11:45 AM EST documented in this encounter Functional Status * [...] No 03/18/2024 1:32 PM Nuno Mcclure MA documented as of this encounter Mental Status * Because of a physical, mental or emotional condition, does this person have serious difficulty concentrating, remembering or making decisions? Answer Entry Date Author No 03/18/2024 1:32 PM EDT Nuno Sarabia MA documented in this encounter Ordered Prescriptions Prescription Sig Dispense Quantity Refills Last Filled Start Date End Date clotrimazole (MYCELEX) 10 mg MM Darius Take 1 Tablet by mouth 3 times daily for 14 days. 42 Tablet 1 04/29/2024 05/13/2024 documented in this encounter Progress Notes * Mariangel Lamb APRN - 04/29/2024 11:45 AM EST Vitals: 04/29/24 1145 BP: 136/92 Pulse: 82 Temp: 98.1 ??F (36.7 ??C) TempSrc: Temporal Weight: 232 lb (105.2 kg) Height: 5' 7 (1.702 m) Body mass index is 36.34 kg/m??. SUBJECTIVE: Chief Complaint Patient presents with ??? Hoarse HPI: Patient is here today complaining of hoarseness x 2 weeks. States that the symptoms started after starting the nortriptyline and the dose was increased. The medication is causing severe dry mouth. When the neurologists doubled the nortriptyline it started. Patient has had laryngitis like this in the past. At the time he was treated for a yeast infection. Patient currently has angular cheilitis that he has been using clotrimazole cream. Patient has been treated aggressively for herpes zoster and postherpetic neuralgia. His rash is now finally resolved and symptoms are improving Review of Systems No fever or chills. Throat is not sore but only hoarse. Multiple other family members with URI symptoms. OBJECTIVE: Physical Exam Constitutional: Appearance: Normal appearance. HENT: Head: Normocephalic and atraumatic. Right Ear: Tympanic membrane normal. Left Ear: Tympanic membrane normal. Mouth/Throat: Mouth: Mucous membranes are moist. Pharynx: Posterior oropharyngeal erythema (Positive erythema but no exudate. No stones. Slight white covering on the posterior tongue) present. No oropharyngeal exudate. Comments: Erythema and cracking at the angles of the upper and lower lip Cardiovascular: Rate and Rhythm: Normal rate and regular rhythm. Pulses: Normal pulses. Heart sounds: Normal heart sounds. Pulmonary: Effort: Pulmonary effort is normal. Breath sounds: Normal breath sounds. Skin: General: Skin is warm and dry. Neurological: Mental Status: He is alert and oriented to person, place, and time. Psychiatric: Mood and Affect: Mood normal. Assessment Assessment & Plan PHN (postherpetic neuralgia) Continue treatment Rash is resolved Laryngitis Continue symptomatic care Return if symptoms worsen or persist documented in this encounter Plan of Treatment Upcoming Encounters Date Type Department Care Team (Late st Contact Info) Description 06/28/2024 9:40 AM EST Clinical Support [facility] [address] [place] [phone] 11/19/2024 1:40 PM EDT Office Visit [facility] [address] [place] [id number] Lyndsay Brewer DO [address] [place] [address] documented as of this encounter [...] Herpes zoster with other nervous system complications Laryngitis Acute laryngitis, without mention of obstruction documented in this encounter Discontinued Medications Medication Sig Discontinue Reason Start Date End Da te buPROPion (WELLBUTRIN XL) 150 mg Oral Tablet Sustained Release 24 hrIndications:Weight gain Take 1 Tablet by mouth every morning. DELETE-Therapy completed 01/31/2024 04/29/2024 dextromethorphan-guaiFE Nesin (MUCINEX DM) 30-600 mg Oral Tablet Sustained Release 12 hrIndications:Acute cough Take 1 Tablet by mouth every 12 hours. DELETE-Therapy completed 12/01/2023 04/29/2024 oxyCODONE (ROXICODONE) 5 mg Oral Tablet Take 5 mg by mouth every 6 hours. DELETE-Therapy completed 03/10/2024 04/29/2024 rifAXIMin (XIFAXAN) 550 mg Oral Tablet Take 1 Tablet by mouth 2 times daily. DELETE-Duplicate 11/15/2023 04/29/2024 tamsulosin (FLOMAX) 0.4 mg Oral CapsuleIndications:BPH without urinary obstruction Take 1 Capsule by mouth nightly. DELETE-Duplicate 02/05/2024 04/29/2024 documented as of this encounter Care Teams Actuarial Trainee Relationship Specialty Start Date End Date Steffanie Fulton APRN [address] [place] [address] PCP - General Nurse Practitioner 07/26/21 documented as of this encounter
--- OUTSIDE RECORDS SUMMARY | 2024-05-29 15:33 | XMS_ITS | Encounter Summary ---
Author Organization [facility] [place] [address] Care Team Providers Care Cottrell Blower Name Role Phone Steffanie Fulton APRN Primary Care Provider [phone]- [phone] Encounter Details Date Type Department Care Team (Latest Contact Info) Description 04/23/2024 Travel Social History Tobacco Use Types Packs/Day Years [...] Nuno Sarabia MA documented in this encounter Plan of Treatment Upcoming Encounters Date Type Department Care Team (Late st Contact Info) Description 06/28/2024 9:40 AM EST Clinical Support [facility] [address] [facility] [place] [phone] 11/19/2024 1:40 PM EDT Office Visit [facility] [address] [place] [address] Lyndsay Brewer DO [address] [place] [address] documented as of this encounter Goals Goal Patient Goal Type Associated Problems Recent Progress Patient-Stated? Author Blood Pressure < 140/90 Blood Pressure 134/84(2023 1:16 PM EST) No Choi, Yana G, RMA Eat better, exercise, reach an ideal body weight General No Yana Choi, RMA Stay Tobacco Free Lifestyle No Yana Choi RMA documented as of this encounter Visit Diagnoses Not on filedocumented in this encounter Care Teams Cottrell Blower Relationship Specialty Start Date End Date Steffanie Fulton APRN [address] [place] [address] PCP - General Nurse Practitioner 07/26/21 documented as of this encounter
--- OUTSIDE RECORDS SUMMARY | 2024-05-29 15:33 | XMS_ITS | Encounter Summary ---
Author Organization [place] [address] Care Team Providers Care Neurology Manager Name Role Phone KirstinSteffanie YOLI Primary Care Provider [phone]- [phone] Reason for Visit * Reason Comments Hospital Follow Up Encounter Details Date Type Department Care Team (Late st Contact Info) Description 05/29/2024 1:45 PM EST Office Visit [facility] [address] [place] [address] Steffanie Fulton APRN [address] [facility] [place] [address] Community acquired pneumonia, unspecified laterality (Primary Dx); SOB (shortness of breath) Social History Tobacco Use Types Packs/Day Years [...] (230 lb) 05/29/2024 1:16 PM EST Height - - Body Mass Index 36.02 04/29/2024 11:45 AM EST documented in this encounter Functional Status * Is the person deaf or does he/she have serious difficulty hearing? Answer Date of Assessment Author No 03/18/2024 1:32 PM Nuno Mcclure MA * Is the person blind or does he/she have serious difficulty seeing even when wearing glasses? Answer Date of Assessment Author No 03/18/2024 1:32 PM ADITYAT Nuno Sarabia MA * Does this person have serious difficulty walking or climbing stairs? Answer Date of Assessment Author No 03/18/2024 1:32 PM EDNuno De La Rosa MA * Does this person have difficulty [...] documented in this encounter Progress Notes * Steffanie Fulton APRN - 05/29/2024 1:45 PM ESTAssociated Problem(s): Community acquired pneumonia Orders: XR CHEST PA AND LATERAL; Future CBC WITH DIFF; Future COMPREHENSIVE METABOLIC PANEL; Future GA PRESSURIZED/NONPRESSURIZED INHALATION TREATMENT * Steffanie Fulton APRN - 05/29/2024 1:45 PM EST Vitals: 05/29/24 1316 BP: 134/84 Pulse: 90 Resp: 16 Temp: 99.1 ??F (37.3 ??C) TempSrc: Temporal SpO2: 97% Weight: 230 lb (104.3 kg) Body mass index is 36.02 kg/m??. SUBJECTIVE: Chief Complaint Patient presents with Hospital Follow Up HPI: Hospital Follow-Up: Hospital/ER Follow-Up: Mr. Whitlock is a 58 y.o. male here for hospital follow up. He was seen in the ED with a diagnosisof pneumonia. Completing Augmentin and Zpack Feels worse and more sob +wheezing On Prednisone and has been using Duoneb Hospital discharge summary, most recent labs and imaging, admission notes reviewed: Yes He is compliant with discharge medications / treatment. He is not having medication side effects. Coding Attestation I certify the following are true: 1. Communication with the patient was made within 2 business days of discharge. 2. Medical decision making of medium complexity. 3. Face to face visit within 7 days. 4. Patient has not been hospitalized within the last 30 days. Code Complexity Face to face 75839 High complexity within 7 days 28882 High complexity 8-14 days 31308 Medium complexity Within 14 days Review of Systems Constitutional: Positive for fatigue. HENT: Positive for sore throat. Respiratory: Positive for cough, shortness of breath and wheezing. Cardiovascular: Negative. Gastrointestinal: Negative. OBJECTIVE: Physical Exam Constitutional: Appearance: Normal appearance. HENT: Head: Normocephalic and atraumatic. Right Ear: Tympanic membrane normal. Left Ear: Tympanic membrane normal. Mouth/Throat: Pharynx: Posterior oropharyngeal erythema present. Cardiovascular: Rate and Rhythm: Normal rate and regular rhythm. Pulses: Normal pulses. Heart sounds: Normal heart sounds. Pulmonary: Breath sounds: Wheezing present. Neurological: Mental Status: He is alert. Assessment Assessment & Plan Community acquired pneumonia, unspecified laterality Orders: XR CHEST PA AND LATERAL; Future CBC WITH DIFF; Future COMPREHENSIVE METABOLIC PANEL; Future GA PRESSURIZED/NONPRESSURIZED INHALATION TREATMENT SOB (shortness of breath) Wheezing and sob worse after neb treatment Discussed with pt and sig other Will send back to ER for further eval documented in this encounter H&P Notes * Steffanie Fulton APRN - 05/29/2024 1:45 PM EST Subjective: Patient ID: Zuhair Clayton is a 58 y.o. male. Chief Complaint Patient presents with Hospital Follow Up HPI Past Medical History: Diagnosis Date Arthritis Asthma 06/02/2010 Bipolar affective (HCC) Blood transfusion EPHRAIM (generalized anxiety disorder) Heart attack (HCC) Heroin abuse (HCC) Quit August Hypertension IBS (irritable bowel syndrome) Opiate dependence (HCC) Remission x 5 years Pneumonia Pneumothorax Past Surgical History: Procedure Laterality Date COLONOSCOPY N/A 08/18/2020 Colonoscopy with biopsy and cold snare polypectomy; Surgeon: Michael Mckeon MD; Location: TENDOSCOPY; Service: Endoscopy ELBOW SURGERY LEFT LIGAMENT REPAIR EYE SURGERY RIGHT RETINA REPAIR WITH BUCKLE FRACTURE SURGERY left leg, after accident HERNIA REPAIR RIGHT INGUINAL WITH MESH HIP ARTHROPLASTY Left 07/26/2017 LEFT TOTAL HIP ARTHROPLASTY- REVISION-ANTERIOR ; Surgeon: Augie Ramires MD; Location: [facility] MAIN OR; Service: Orthopedics KNEE SURGERY LEFT ACL RECONSTRUCTION KNEE SURGERY LEFT ARTHROSCOPIES IRRAGATION X 7 FOR INFECTION KNEE SURGERY RIGHT ARTHROSCOPIC MENICUS REPAIR SHOULDER ARTHROSCOPY Right 11/29/2019 RIGHT SHOULDER ARTHROSCOPIC ROTATOR CUFF REPAIR DECOMPRESSION ACROMIOPLASTY, ACROMIOCLAVICULAR JOINT EXCISION; Surgeon: Kenny Loja MD; Location: [facility]; Service: Orthopedics TOTAL HIP ARTHROPLASTY Left 2010 Family History Problem Relation Age of Onset Diabetes Mother Heart Disease Mother High Blood Pressure Mother High Cholesterol Mother Cancer Father 40 stomach Other (Diabetes living) Sister 1 sister passed No Known Problems Brother Diabetes Maternal Grandmother No Known Problems Maternal Grandfather Cancer Paternal Grandmother Social History Socioeconomic History Marital status: Legally Spouse name: None Number of children: None Years of education: None Highest education level: None Tobacco Use Smoking status: Never Passive exposure: Never Smokeless tobacco: Current Types: Snuff Vaping Use Vaping status: Never Used Substance and Sexual Activity Alcohol use: No Drug use: No Comment: in past stated been in recovery for 6 years 2012 Social Drivers of Health Financial Resource Strain: [...] (Medical): No Lack of Transportation (Non-Medical): No Received from [facility] Family and Community Support Received from [facility] Abuse Screen Received from [facility] Housing Stability Allergies Allergen Reactions Abilify [Aripiprazole] Other (See Comments) convulsions Unable To Assess Patient does not take any narcotic medications Current Outpatient Medications Medication Sig Dispense Refill albuterol (PROVENTIL) 2.5 mg /3 mL (0.083 [...] THE LUNGS TWICE A DAY 30.6 Each 0 Capsaicin 0.1 % Top Cream Apply 1 Application topically 2 times daily. 56.6 g 1 celecoxib (CELEBREX) 200 mg Oral Capsule TAKE 1 CAPSULE BY MOUTH TWICE A DAY 60 Capsule 2 colestipoL (COLESTID) 1 gram Oral Tablet Take 1 Tablet by mouth 2 times daily. 60 Tablet 11 diclofenac (VOLTAREN) 1 % Top Gel APPLY 2 GRAMS TOPICALLY 4 TIMES DAILY DIRECTED. 100 g 1 fluticasone propionate (FLONASE) 50 mcg/actuation Nasl [place], Suspension SPRAY 1 SPRAY INTO EACH NOSTRIL EVERY DAY 32 mL 1 gabapentin (NEURONTIN) 800 mg Oral Tablet Take 1 Tablet by mouth 3 times daily for 90 days. 90 Tablet 2 hydroCHLOROthiazide (MICROZIDE) 12.5 mg Oral Capsule Take 1 Capsule by mouth daily. 90 Capsule 2 loperamide (IMODIUM) 2 mg Oral Capsule Take 1 Capsule by mouth 3 times daily as needed for Diarrhea. 90 Capsule 0 losartan (COZAAR) 50 mg Oral Tablet Take 1 Tablet by mouth 2 times daily. 180 Tablet 2 montelukast (SINGULAIR) 10 mg Oral Tablet Take 1 Tablet by mouth nightly. 90 Tablet 2 Nebulizer Accessories (ALL FLOW 4000 KIT) [facility] Formulary equivalent 1 Each 0 nortriptyline (PAMELOR) 50 mg Oral Capsule Take 1 Capsule by mouth nightly. 30 Capsule 3 pantoprazole (PROTONIX) 40 mg Oral Tablet, Delayed Release (E.C.) Take 1 Tablet by mouth daily. 90 Tablet 3 rifAXIMin (XIFAXAN) 550 mg Oral Tablet Take 1 Tablet by mouth 3 times daily. 42 Tablet 2 tadalafiL (CIALIS) 5 mg Oral Tablet Take 1 Tablet by mouth as needed for Erectile Dysfunction. 90 Tablet 2 tamsulosin (FLOMAX) 0.4 mg Oral Capsule Take 1 Capsule by mouth nightly. 60 Capsule 1 tiZANidine (ZANAFLEX) 2 mg Oral Tablet TAKE 1 TABLET BY MOUTH THREE TIMES A DAY 270 Tablet 0 VENTOLIN HFA 90 mcg/actuation Inhl HFA Aerosol Inhaler INHALE 2 PUFFS BY MOUTH EVERY 4 HOURS NEEDED FOR WHEEZE 18 Each 2 No current facility-administered medications for this visit. Immunization History Administered Date(s) Administered Influenza Patient Reported 04/21/2010, 03/18/2019 Influenza Seasonal Injectable 05/07/2008, 03/07/2009 Influenza Vaccine Quadrivalent 03/10/2016, 05/29/2017, 03/20/2018 Influenza Vaccine Quadrivalent PF 06/21/2023 Influenza Vaccine, Unspecified Formulation 03/18/2019 Influenza Virus Vaccine Quadrivalant, [place] 04/13/2020, 04/25/2022 PPD Test 12/20/2010 Pneumococcal Conjugate Vaccine 20 Valent 11/23/2022 Pneumococcal Polysaccharide 23 Valent 04/21/2010, 03/10/2016 Tdap 01/15/2014, 12/26/2018, 03/18/2019 Zoster Recombinant 11/28/2017, 06/21/2018 Patient Active Problem List Diagnosis Hip pain, left Essential hypertension Eczema OA (osteoarthritis) Asthma EPHRAIM (generalized anxiety disorder) BPH with urinary obstruction Status post left hip replacement 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 There were no changesexcept as noted. Review of Systems Objective: Vitals: 05/29/24 1316 BP: 134/84 Pulse: 90 Resp: 16 Temp: 99.1 ??F (37.3 ??C) TempSrc: Temporal SpO2: 97% Weight: 230 lb (104.3 kg) Body mass index is 36.02 kg/m??. Physical Exam Assessment and Plan: Zuhair Clayton was seen today for hospital follow up. Diagnoses and all orders for this visit: Community acquired pneumonia, unspecified laterality No follow-ups on file. documented in this encounter Plan of Treatment Upcoming Encounters Date Type Department Care Team (Late st Contact Info) Description 06/28/2024 9:40 AM EST Clinical Support [facility] [address] [place] [phone] 11/19/2024 1:40 PM EDT Office Visit [facility] [address] [place] [address] Lyndsay Brewer, DO [address] [place] [address] Scheduled Orders Name Type Priority Associated Diagnoses Orde r Schedule XR CHEST PA AND LATERAL Imaging Routine Community acquired pneumonia, unspecified laterality 1 Occurrences starting 05/29/2024 until 05/29/2025 CBC WITH DIFF Lab Routine Community acquired pneumonia, unspecified laterality 1 Occurrences starting 05/29/2024 until 05/29/2025 COMPREHENSIVE METABOLIC PANEL Lab Routine Community acquired pneumonia, unspecified laterality 1 Occurrences starting 05/29/2024 until 05/29/2025 GA PRESSURIZED/NONPRESSURIZ ED INHALATION TREATMENT GA Charge Routine Community acquired pneumonia, unspecified laterality Ordered: 05/29/2024 documented as of this encounter Goals Goal Patient Goal Type Associated Problems Recent Progress Patient-Stated? Author Blood Pressure < 140/90 Blood Pressure 134/84(2023 1:16 PM EST) No Yana Choi RMJane Eat better, exercise, reach an ideal body weight General No Yana Choi RMA Stay Tobacco Free Lifestyle No Yana Choi RMA documented as of this encounter Visit Diagnoses Diagnosis Community acquired pneumonia, unspecified laterality- Primary SOB (shortness of breath) Shortness of breath documented in this encounter Care Teams Neurology Manager Relationship Specialty Start Date End Date Steffanie Fulton APRN [address] [place] [id number] PCP - General Nurse Practitioner 07/26/21 documented as of this encounter
--- OUTSIDE RECORDS SUMMARY | 2024-05-29 15:33 | XMS_ITS | Encounter Summary ---
Author Organization [place] [address] Care Team Providers Care Manager Marketing Name Role Phone Steffanie Fulton APRN Primary Care Provider +1- [phone] Reason for Visit * Reason Comments Follow-up Irritable Bowel Syndrome Encounter Details Date Type Department Care Team (Late st Contact Info) Description 04/05/2024 1:40 PM EDT Office Visit [facility] [address] [place] [address] Michael Mckeon MD [address] [place] [address] Irritable bowel syndrome with diarrhea (Primary Dx); Gastroesophageal reflux disease, unspecified whether esophagitis present Social History Tobacco Use Types Packs/Day Years [...] Sign Reading Time Taken Comments Blood Pressure 122/78 04/05/2024 1:31 PM EDT Pulse - - Temperature - - Respiratory Rate - - Oxygen Saturation - - Inhaled Oxygen Concentration - - Weight 103.9 kg (229 lb) 04/05/2024 1:31 PM EDT Height 170.2 cm (5' 7 ) 04/05/2024 1:31 PM EDT Body Mass Index 35.87 04/05/2024 1:31 PM EDT documented in this encounter Functional [...] Refills Last Filled Start Date End Date colestipoL (COLESTID) 1 gram Oral TabletIndications: Irritable bowel syndrome with diarrhea Take 1 Tablet by mouth 2 times daily. 60 Tablet 11 04/05/2024 loperamide (IMODIUM) 2 mg Oral CapsuleIndications :Irritable bowel syndrome with diarrhea Take 1 Capsule by mouth 3 times daily as needed for Diarrhea. 60 Capsule 2 04/05/2024 4 documented in this encounter Progress Notes * Michael Mckeon MD - 04/05/2024 1:40 PM EDT [facility] Gastroenterology Outpatient Followup Note 04/05/2024 Reason for visit: Irritable bowel syndrome with diarrhea, GERD Subjective: 58-year-old male with no history of GERD and IBS-D returning today for follow- up. His GERD has beenwell-controlled on pantoprazole 40 mg once daily without any significant breakthrough symptoms unless he overeats or eats certain things that can exacerbate his symptoms. He has needed rifaximin twice since his last office visit to control acute exacerbations of his lower abdominal symptoms. It seems that rifaximin works pretty well for a period of time. He continues to take Colestid 1 g once daily and Imodium once daily to control his symptoms in between rifaximin courses when he is at his baseline. He has been managing his symptoms quite well with this regimen. Allergies: Allergies Allergen Reactions Abilify [Aripiprazole] Other (See Comments) convulsions Unable To Assess Patient does not take any narcotic medications Past Medical History: Past Medical History: Diagnosis Date Arthritis Asthma 06/02/2010 Bipolar affective (HCC) Blood transfusion EPHRAIM (generalized anxiety disorder) Heart attack (HCC) Heroin abuse (HCC) Quit August Hypertension IBS (irritable bowel syndrome) Opiate dependence (HCC) Remission x 5 years Pneumonia Pneumothorax Past Surgical History: Past Surgical History: Procedure Laterality Date COLONOSCOPY N/A 08/18/2020 Colonoscopy with biopsy and cold snare polypectomy; Surgeon: Michael Mckeon MD; Location: [facility]; Service: Endoscopy ELBOW SURGERY LEFT LIGAMENT REPAIR EYE SURGERY RIGHT RETINA REPAIR WITH BUCKLE FRACTURE SURGERY left leg, after accident HERNIA REPAIR RIGHT INGUINAL WITH MESH HIP ARTHROPLASTY Left 07/26/2017 LEFT TOTAL HIP ARTHROPLASTY- REVISION-ANTERIOR ; Surgeon: Augie Ramires MD; Location: ED MAIN OR; Service: Orthopedics KNEE SURGERY LEFT ACL RECONSTRUCTION KNEE SURGERY LEFT ARTHROSCOPIES IRRAGATION X 7 FOR INFECTION KNEE SURGERY RIGHT ARTHROSCOPIC MENICUS REPAIR SHOULDER ARTHROSCOPY Right 11/29/2019 RIGHT SHOULDER ARTHROSCOPIC ROTATOR CUFF REPAIR DECOMPRESSION ACROMIOPLASTY, ACROMIOCLAVICULAR JOINT EXCISION; Surgeon: Kenny Loja MD; Location: [facility]; Service: Orthopedics TOTAL HIP ARTHROPLASTY Left 2009 Family History: Family History Problem Relation Age of Onset Diabetes Mother Heart Disease Mother High Blood Pressure Mother High Cholesterol Mother Cancer Father 40 stomach Other (Diabetes living) Sister 1 sister passed No Known Problems Brother Diabetes Maternal Grandmother No Known Problems Maternal Grandfather Cancer Paternal Grandmother Social History: Social History Tobacco Use Smoking status: Never Passive exposure: Never Smokeless tobacco: Current Types: Snuff Vaping Use Vaping status: Never Used Substance Use Topics Alcohol use: No Drug use: No Comment: in past stated been in recovery for 6 years 2012 ROS Review of Systems Constitutional: Negative for chills and fever. Respiratory: Negative for cough and shortness of breath. Cardiovascular: Negative for chest pain and palpitations. Skin: Negative for itching and rash. Physical Examination BP 122/78 Ht 5' 7 (1.702 m) Wt 229 lb (103.9 kg) BMI 35.87 kg/m?? Physical Exam Constitutional: General: He is not in acute distress. HENT: Head: Normocephalic and atraumatic. Eyes: General: No scleral icterus. Conjunctiva/sclera: Conjunctivae normal. Cardiovascular: Rate and Rhythm: Normal rate. Pulmonary: Effort: Pulmonary effort is normal. Abdominal: General: Bowel sounds are normal. There is no distension. Palpations: Abdomen is soft. Tenderness: There is no abdominal tenderness. Skin: General: Skin is warm and dry. Neurological: Mental Status: He is alert and oriented to person, place, and time. Psychiatric: Mood and Affect: Mood and affect normal. Laboratory: Lab Results Component Value Date/Time WBC 6.5 01/31/2024 09:50 AM WBC 5.3 11/01/2023 10:02 AM WBC 5.5 11/23/2022 08:45 AM HGB 14.9 01/31/2024 09:50 AM HGB 14.5 11/01/2023 10:02 AM HGB 14.7 11/23/2022 08:45 AM HCT 45.6 01/31/2024 09:50 AM HCT 43.7 11/01/2023 10:02 AM HCT 44.2 11/23/2022 08:45 AM MCV 99.1 01/31/2024 09:50 AM MCV 94.8 11/01/2023 10:02 AM MCV 96.7 11/23/2022 08:45 AM PLT 178 01/31/2024 09:50 AM PLT 167 11/01/2023 10:02 AM PLT 181 11/23/2022 08:45 AM Lab Results Component Value Date/Time ALT 36 01/31/2024 09:50 AM ALT 36 11/01/2023 10:02 AM ALT 33 11/23/2022 08:45 AM AST 34 01/31/2024 09:50 AM AST 31 11/01/2023 10:02 AM AST 32 11/23/2022 08:45 AM ALKPHOS 120 01/31/2024 09:50 AM ALKPHOS 134 (H) 11/01/2023 10:02 AM ALKPHOS 121 11/23/2022 08:45 AM PROT 7.5 01/31/2024 09:50 AM PROT 7.6 11/01/2023 10:02 AM PROT 7.1 11/23/2022 08:45 AM Lab Results Component Value Date/Time CREATININE 1.05 01/31/2024 09:50 AM CREATININE 0.94 11/01/2023 10:02 AM CREATININE 1.18 11/23/2022 08:45 AM BUN 18 01/31/2024 09:50 AM BUN 17 11/01/2023 10:02 AM BUN 21 (H) 11/23/2022 08:45 AM NA 140 01/31/2024 09:50 AM NA 140 11/01/2023 10:02 AM NA 140 11/23/2022 08:45 AM K 4.1 01/31/2024 09:50 AM K 4.1 11/01/2023 10:02 AM K 4.0 11/23/2022 08:45 AM CL 102 01/31/2024 09:50 AM CL 104 11/01/2023 10:02 AM CL 104 11/23/2022 08:45 AM CO2 26 01/31/2024 09:50 AM CO2 23 11/01/2023 10:02 AM CO2 23 11/23/2022 08:45 AM Lab Results Component Value Date INR 0.89 10/29/2021 INR 0.91 07/17/2017 ASSESSMENT Irritable bowel syndrome with diarrhea - colestipoL (COLESTID) 1 gram Oral Tablet; Take 1 Tablet by mouth 2 times daily. - loperamide (IMODIUM) 2 mg Oral Capsule; Take 1 Capsule by mouth 3 times daily as needed for Diarrhea. -Continue rifaximin 550 mg 3 times daily for 14 days when symptoms worsen. May repeat course up to 3 times per year. This seems to have been working well recently. -May also continue taking Colestid and Imodium once daily to control baseline diarrhea when symptoms are not flaring up. Gastroesophageal reflux disease, unspecified whether esophagitis present Well-controlled on pantoprazole 40 mg once daily Return in about 1 year (around 04/05/2025). Michael Herr MD Insulator Apprentice [facility] [phone] documented in this encounter Plan of Treatment Upcoming Encounters Date Type Department Care Team (Late st Contact Info) Description 06/28/2024 9:40 AM EST Clinical Support ANTOLIN [place] [address] [employer] [place] [address] 11/19/2024 1:40 PM EDT Office Visit [facility] [address] [place] [address] Lyndsay Brewer DO [address] [place] [address] documented as of this encounter Goals Goal Patient Goal Type Associated Problems Recent Progress Patient-Stated? Author Blood Pressure < 140/90 Blood Pressure 134/84(2023 1:16 PM EST) No Yana Choi RMA Eat better, exercise, reach an ideal body weight General No Yana Choi RMA Stay Tobacco Free Lifestyle No Yana Choi RMA documented as of this encounter Visit Diagnoses Diagnosis Irritable bowel syndrome with diarrhea- Primary Irritable bowel syndrome Gastroesophageal reflux disease, unspecified whether esophagitis present documented in this encounter Discontinued Medications Medication Sig Discontinue Reason Start Date End Da te colestipoL (COLESTID) 1 gram Oral TabletIndications:Irri table bowel syndrome with diarrhea,Bile salt-induced diarrhea TAKE 1 TABLET BY MOUTH 2 TIMES DAILY. NEEDS AN APPOINTMENT Cancelled by 12/06/2021 04/05/2024 documented as of this encounter Care Teams Manager Marketing Relationship Specialty Start Date End Date Steffanie Fulton APRN [address] [place] [address] PCP - General Nurse Practitioner 07/26/21 documented as of this encounter
--- OUTSIDE RECORDS SUMMARY | 2024-05-29 15:33 | XMS_ITS | Encounter Summary ---
Author Organization [place] [address] Care Team Providers Care Gluer Name Role Phone Steffanie Fulton APRN Primary Care Provider +1- [phone] Reason for Referral * Consultation (Routine) - Pending Review Specialty Diagnoses / Procedures Referred By Contac t Referred To Contact Neurology Diagnoses Herpes zoster without complication Procedures OR OFFICE/OP CONSLTJ NEW/EST PT MOD MDM 40 MINUTES Deanna Diaz APRN [address] [place] [address] Phone: tel: fax: [facility] [address] [place] [address] Phone: tel: fax: Referral ID Status Reason Start Date Expiration Date V isits Requested Visits Authorized [id number] Pending Review 03/25/2024 03/25/2025 99 99 Encounter Details Date Type Department Care Team (Late st Contact Info) Description 03/25/2024 Orders Only [facility] [address] [place] [address] Rocio Sarabia MA Herpes zoster without complication (Primary Dx) Social History Tobacco Use Types [...] EST Clinical Support [facility] [address] [place] [phone] 11/19/2024 1:40 PM EDT Office Visit [facility] [address] [place] [id number] Lyndsay Brewer DO [address] [facility] [address] [place] [address] Scheduled Referrals Name Type Priority Associated Diagnoses Orde r Schedule AMB REFERRAL TO NEUROLOGY Outpatient Referral Routine Herpes zoster without complication Ordered: 03/25/2024 documented as of this encounter Goals Goal Patient Goal Type Associated Problems Recent Progress Patient-Stated? Author Blood Pressure < 140/90 Blood Pressure 134/84(2023 1:16 PM EST) No Yana Choi RMJane Eat better, exercise, reach an ideal body weight General No Yana Choi RMA Stay Tobacco Free Lifestyle No Yaan Choi RMA documented as of this encounter Visit Diagnoses Diagnosis Herpes zoster without complication- Primary documented in this encounter Care Teams Gluer Relationship Specialty Start Date End Date Steffanie Fulton APRN [address] [place] [address] PCP - General Nurse Practitioner 07/26/21 documented as of this encounter
--- OUTSIDE RECORDS SUMMARY | 2024-05-29 15:33 | XMS_ITS | Encounter Summary ---
Author Organization [place] [address] Care Team Providers Care Rn Private Duty Name Role Phone Steffanie Fulton APRN Primary Care Provider +1- [phone] Reason for Visit * Reason Onset Date Comments New Patient 03/27/2024 Encounter Details Date Type Department Care Team (Late st Contact Info) Description 03/27/[address] [address] Glenis Boles, Water Trainer New Patient Social History Tobacco Use Types Packs/Day Years [...] encounter Miscellaneous Notes * Telephone Encounter - Elia Zimmerman CMA - 03/27/2024 12:23 PM EDT 1. Did you complete advanced imaging? No 2. Have you completed 6 weeks of physical therapy? No. 3. Have you been treated by a chiropractor? No 4. Have you completed a Home Exercise Program? No. 5. Have you completed and interventional pain management procedures in the past? No 6. What is your highest pain level throughout the day? 7 Patient called to schedule a New Patient appointment. Patient was notified of the following prior to scheduling. 1. We would need records from your previous pain clinic. 2. Our physicians DO NOT prescribe pain medication during your consultation and depending on your visit with us we may not be able to prescribe any medication. 3. We are focused on interventional pain management at our office. If patient states they are NOT being prescribed pain medication, patient has been made aware that our office utilizes the state reporting system for controlled medications and if information is not consistent with what the patient has informed us, their appointment will be cancelled and/or rescheduled. Has patient been seen at any other spine/pain specialists in the past two years? no If so, where are med recs coming from? INTERVENTIONAL ONLY PATIENT IS IN RECOVERY * Telephone Encounter - Rocio Swain - 03/27/2024 11:36 AM EDT Attempted to schedule LAB INTERN appt. MCM sent. documented in this encounter Plan of Treatment Upcoming Encounters Date Type Department Care Team (Late st Contact Info) Description 06/28/2024 9:40 AM EST Clinical Support [facility] [address] [employer] [place] [phone] 11/19/2024 1:40 PM EDT Office Visit [facility] [address] [place] [phone] Lyndsay Brewer DO [address] [place] [address] documented as of this encounter Goals Goal [...] on filedocumented in this encounter Care Teams Rn Private Duty Relationship Specialty Start Date End Date Stefafnie Fulton INTERNATIONAL MARKETING EXECUTIVE [address] [employer] [place] [id number] PCP - General Nurse Practitioner 07/26/21 documented as of this encounter
--- OUTSIDE RECORDS SUMMARY | 2024-05-29 15:33 | XMS_ITS | Encounter Summary ---
Author Organization [place] [address] Care Team Providers Care Patient Scheduler Name Role Phone Steffanie Fulton APRN Primary Care Provider +1- [phone] Reason for Visit * Reason Comments Medication Refill Encounter Details Date Type Department Care Team (Late st Contact Info) Description 04/28/2024 Refill [facility] [address] [email or web address] [place] [place] [phone] Ligia Wiley MD [address] [place] [address] Medication Refill Social History Tobacco Use Types [...] Refills Last Filled Start Date End Date celecoxib (CELEBREX) 200 mg Oral CapsuleIndications:G eneralized osteoarthritis of multiple sites TAKE 1 CAPSULE BY MOUTH TWICE A DAY 60 Capsule 2 04/29/2024 documented in this encounter Plan of Treatment Upcoming Encounters Date Type Department Care Team (Late st Contact Info) Description 06/28/2024 9:40 AM EST Clinical Support ANTOLIN [place] [address] [place] [phone] 11/19/2024 1:40 PM EDT Office Visit [facility] [address] [place] [address] Lyndsay Brewer DO [address] [place] [address] documented as of this encounter Goals Goal Patient Goal Type Associated Problems Recent Progress Patient-Stated? Author Blood Pressure < 140/90 Blood Pressure 134/84(2023 1:16 PM EST) No Yana Choi RMA Eat better, exercise, reach an ideal body weight General No Yana Choi RMA Stay Tobacco Free Lifestyle No Yana Choi RMA documented as of this encounter Visit Diagnoses Diagnosis Generalized osteoarthritis of multiple sites Generalized osteoarthrosis, involving multiple sites documented in this encounter Discontinued Medications Medication Sig Discontinue Reason Start Date End Da te celecoxib (CELEBREX) 200 mg Oral CapsuleIndications:General ized osteoarthritis of multiple sites Take 1 Capsule by mouth 2 times daily. 04/24/2023 04/29/2024 documented as of this encounter Care Teams Patient Scheduler Relationship Specialty Start Date End Date Steffanie Fulton APRN [address] [email or web address] [employer] [place] [address] PCP - General Nurse Practitioner 07/26/21 documented as of this encounter
--- OUTSIDE RECORDS SUMMARY | 2024-05-29 15:33 | XMS_ITS | Encounter Summary ---
Author Organization [place] [address] Care Team Providers Care Drop Forge Hand Name Role Phone KirstinSteffanie YOLI Primary Care Provider +1- [phone] Reason for Visit * Reason Onset Date Comments Medication Refill 04/21/2024 Encounter Details Date Type Department Care Team (Late st Contact Info) Description 04/21/2024 Refill [facility] [address] [place] [phone] Deanna Diaz APRN [address] [place] [address] Medication Refill Social History Tobacco Use Types [...] EST Clinical Support ANTOLIN [place] [address] [place] [phone] 11/19/2024 1:40 PM EDT Office Visit [facility] [address] [place] [address] Lyndsay Brewer DO [address] [place] [address] documented as of this encounter [...] zoster without complication documented in this encounter Care Teams Drop Forge Hand Relationship Specialty Start Date End Date Steffanie Fulton APRN [address] [place] [address] PCP - General Nurse Practitioner 07/26/21 documented as of this encounter
--- OUTSIDE RECORDS SUMMARY | 2024-05-29 15:34 | XMS_ITS | Encounter Summary ---
Author Organization [place] [address] Care Team Providers Care Sock Knitter Name Role Phone KirstinSteffanie YOLI Primary Care Provider +1- [phone] Reason for Visit * Reason Comments Herpes Zoster Encounter Details Date Type Department Care Team (Late st Contact Info) Description 03/18/2024 1:45 PM EDT Office Visit [facility] [address] [place] [address] Deanna Diaz APRN [address] [place] [address] Post herpetic neuralgia (Primary Dx) Social History [...] Sign Reading Time Taken Comments Blood Pressure 140/86 03/18/2024 1:32 PM EDT Pulse 89 03/18/2024 1:32 PM EDT Temperature 37.6 ??C (99.7 ??F) 03/18/2024 1:32 PM ED T Respiratory Rate - - Oxygen Saturation 93% 03/18/2024 1:32 PM EDT Inhaled Oxygen Concentration - - Weight 102.5 kg (226 lb) 03/18/2024 1:32 PM EDT Height 170.2 cm (5' 7 ) 03/18/2024 1:32 PM EDT Body Mass Index 35.4 03/18/2024 1:32 PM EDT documented in this encounter Functional [...] Filled Start Date End Date nortriptyline (PAMELOR) 25 mg Oral CapsuleIndications :Post herpetic neuralgia Take 1 Capsule by mouth nightly. 30 Capsule 2 03/18/2024 4 documented in this encounter Progress Notes * Deanna Diaz Harriett, OPERATOR GROUND [employer]ED [employer]ENCE - 03/18/2024 1:45 PM EDT Vitals: 03/18/24 1332 BP: 140/86 Pulse: 89 Temp: 99.7 ??F (37.6 ??C) TempSrc: Temporal SpO2: 93% Weight: 226 lb (102.5 kg) Height: 5' 7 (1.702 m) Body mass index is 35.4 kg/m??. SUBJECTIVE: Chief Complaint Patient presents with ??? Herpes Zoster HPI: Pt sts it is not getting better and feels as though its getting worse. Pt sts he tried to worka coule half days but he hurt over the weekend from being in direct sun. Review of Systems Constitutional: Negative for fever. HENT: Negative for congestion. Respiratory: Negative for shortness of breath. Gastrointestinal: Negative for abdominal pain. Musculoskeletal: Negative for back pain. Neurological: Negative for dizziness and headaches. OBJECTIVE: Physical Exam Constitutional: Appearance: Normal appearance. HENT: Head: Normocephalic. Cardiovascular: Rate and Rhythm: Normal rate and regular rhythm. Heart sounds: Normal heart sounds. Pulmonary: Effort: Pulmonary effort is normal. Breath sounds: Normal breath sounds. Skin: General: Skin is warm and dry. Comments: Right side of neck, light erythema, no vesicular rash noted. Neurological: Mental Status: He is alert. Mental status is at baseline. Psychiatric: Mood and Affect: Mood normal. Behavior: Behavior normal. Thought Content: Thought content normal. Assessment Diagnoses and all orders for this visit: Post herpetic neuralgia - nortriptyline (PAMELOR) 25 mg Oral Capsule; Take 1 Capsule by mouth nightly. Dispense: 30 Capsule; Refill: 2 Added nortriptyline, continue gabapentin as directed, avoid direct sunlight. documented in this encounter Plan of Treatment Upcoming Encounters Date Type Department Care Team (Late st Contact Info) Description 06/28/2024 9:40 AM EST Clinical Support [facility] [address] [employer] [address] [employer] [place] [phone] 11/19/2024 1:40 PM EDT Office Visit [facility] [address] [place] [address] Lyndsay Brewer DO [address] [place] [address] documented as of this encounter Goals Goal Patient Goal Type Associated Problems Recent Progress Patient-Stated? Author Blood Pressure < 140/90 Blood Pressure 134/84(2023 1:16 PM EST) No Yana Choi RMA Eat better, exercise, reach an ideal body weight General No Yaan Choi RMA Stay Tobacco Free Lifestyle No Yana Choi RMA documented as of this encounter Visit Diagnoses Diagnosis Post herpetic neuralgia- Primary Herpes zoster with other nervous system complications documented in this encounter Care Teams Sock Knitter Relationship Specialty Start Date End Date Steffanie Fulton APRN [address] [place] [address] PCP - General Nurse Practitioner 07/26/21 documented as of this encounter
--- OUTSIDE RECORDS SUMMARY | 2024-05-29 15:34 | XMS_ITS | Encounter Summary ---
Author Organization [place] [address] Care Team Providers Care Bus Transportation Manager Name Role Phone Steffanie Fulton YOLI Primary Care Provider [phone]- [phone],LD Unavailable Unavailabl e Reason for Visit * Reason Onset Date Comments Referral 02/02/2024 Encounter Details Date Type Department Care Team (Late st Contact Info) Description 02/02/2024 Telephone [facility] [address] [place] [address] Lisa Colmenares, [facility] [address] [place] [address] Referral Social History Tobacco Use Types Packs/Day Years Used Date Smoking Tobacco: Never Smokeless Tobacco: Current Snuff Alcohol Use Standard Drinks/Week Comments No 0 (1 standard drink = 0.6 oz pur e alcohol) Overall Financial Resource Strain (CARDIA) Flores r Date Recorded How hard is it for you to pa y for the very basics like food, housing, medical care, and heating? Not hard at all 10/07/2020 PHQ-2 Answer Date Recorded PHQ-2 Total Score 0 11/29/2023 Hunger Vital Sign Answer Date Recorded Within [...] hearing? Answer Date of Assessment Author No 11/29/2023 9:28 AM EDT [place] * Is the person blind or does he/she have serious difficulty seeing even when wearing glasses? Answer Date of Assessment Author No 11/29/2023 9:28 AM EDT [place] * Does this person have serious difficulty walking or climbing stairs? Answer Date of Assessment Author No 11/29/2023 9:28 AM EDT [place] * Does this person have difficulty dressing or bathing? Answer Date of Assessment Author No 11/29/2023 9:28 AM EDT [place] * Because of a physical, mental or emotional condition, does this person have difficulty doing errands alone such as visiting a doctor's office or shopping? Answer Date of Assessment Author No 11/29/2023 9:28 AM EDT [place] documented as of this encounter Mental Status * Because of a physical, mental or emotional condition, does this person have serious difficulty concentrating, remembering or making decisions? Answer Entry Date Author No 11/29/2023 9:28 AM EDT [place] documented in this encounter Miscellaneous Notes * Telephone Encounter - Lisa Colmenares CMA - 02/02/2024 12:42 PM EDT Lvm to call back regarding referral. Sent [employer] message with instructions to view online seminar and attached new patient packet. documented in this encounter Plan of Treatment Upcoming Encounters Date Type Department Care Team (Late st Contact Info) Description 06/28/2024 9:40 AM EST Clinical Support [facility] [address] [id number] 11/19/2024 1:40 PM EDT Office Visit SEP Neurology [facility] [address] [place] [phone] Lyndsay Brewer, DO [address] [place] [address] documented as of this encounter [...] on filedocumented in this encounter Care Teams Bus Transportation Manager Relationship Specialty Start Date End Date Steffanie Fulton APRN [address] [address] PCP - General Nurse Practitioner 07/26/[address],LD Dietitian 02/02/24 02/02/24 documented as of this encounter
--- OUTSIDE RECORDS SUMMARY | 2024-05-29 15:34 | XMS_ITS | Encounter Summary ---
Author Organization [place] [address] Care Team Providers Care Home Teaching Grades 9 Thru 12 Teacher Name Role Phone Steffanie Fulton APRN Primary Care Provider [phone]- [phone] Reason for Visit * Reason Comments Abscess Abscess to occiput o f head - pt. states the abscess is getting bigger - more painful, feels the knots and area of abscess is spreading quickly Seen in this ED for same on 02/17 Encounter Details Date Type Department Care Team (Late st Contact Info) Description 02/19/2024 5:18 AM EDT - 02/19/2024 6:12 AM EDT [facility] [address] [place] [address] Faisal Avila, DO [address] [place] [address] Herpes zoster without complication (Primary Dx) Discharge Disposition: Home or Self Care Social History Tobacco Use Types Packs/Day Years [...] Sign Reading Time Taken Comments Blood Pressure 129/81 02/19/2024 5:21 AM EDT Pulse 88 02/19/2024 5:21 AM EDT Temperature 36.6 ??C (97.8 ??F) 02/19/2024 5:22 AM ED T Respiratory Rate 18 02/19/2024 5:21 AM EDT Oxygen Saturation 94% 02/19/2024 5:30 AM EDT Inhaled Oxygen Concentration - - Weight - - Height - - Body Mass Index - - documented in this encounter Functional Status * Is the person deaf or does he/she have serious difficulty hearing? Answer Date of Assessment Author No 11/29/2023 9:28 AM EDT Haylie Krishnan MA * Is the person blind or does he/she have serious difficulty seeing even when wearing glasses? Answer Date of Assessment Author No 11/29/2023 9:28 AM EDT Haylie Krishnan MA * Does this person have serious difficulty walking or climbing stairs? Answer Date of Assessment Author No 11/29/2023 9:28 AM EDT Haylie Krishnan MA * Does this person have difficulty dressing or bathing? Answer Date of Assessment Author No 11/29/2023 9:28 AM EDT Haylie Krishnan MA * Because of a physical, mental or emotional condition, does this person have difficulty doing errands alone such as visiting a doctor's office or shopping? Answer Date of Assessment Author No 11/29/2023 9:28 AM EDT Haylie Krishnan MA documented as of this encounter Mental Status * Because of a physical, mental or emotional condition, does this person have serious difficulty concentrating, remembering or making decisions? Answer Entry Date Author No 11/29/2023 9:28 AM EDT Haylie Krishnan MA documented in this encounter Discharge Instructions * Discharge Instructions* Faisal Avila DO - 02/19/2024 6:04 AM EDT The rash you are presenting with mostly resembles concerning rash for shingles. Would go ahead and follow-up with your PCP today for recheck as discussed. Return here immediately for any new or worsening symptoms, concerns or complaints. * Attachments The following attachments cannot be sent through Care Everywhere. * Shingles (Indonesian) documented in this encounter Medications at Time of Discharge albuterol (PROVENTIL) 2.5 mg /3 mL (0.083 %) Inhl Solution for NebulizationIndicat ions:Influenza,Acut e bronchitis, unspecified organism Take 3 mL by nebulization every 4 hours as needed for Wheezing. 150 mL 1 4 albuterol (VENTOLIN HFA) 90 mcg/actuation Inhl HFA Aerosol InhalerIndications: Encounter for medication refill INHALE 1 TO 2 PUFFS BY MOUTH EVERY 4 HOURS NEEDED FOR WHEEZING 18 Each 3 amLODIPine (NORVASC) 5 mg Oral TabletIndications:E ssential hypertension Take 1 Tablet by mouth daily. 90 Tablet 2 4 atorvastatin (LIPITOR) 40 mg Oral TabletIndications:E ssential hypertension Take 1 Tablet by mouth nightly. 90 Tablet 2 4 betamethasone dipropionate (DIPROLENE) 0.05 % Top OintmentIndications :Psoriasis APPLY TO AFFECTED AREA EVERY DAY 15 g 2 2 diclofenac (VOLTAREN) 1 % Top GelIndications:Bila teral thumb pain,Foot tendinitis APPLY 2 GRAMS TOPICALLY 4 TIMES DAILY DIRECTED. 100 g 1 4 fluticasone propionate (FLONASE) 50 mcg/actuation Nasl [place], SuspensionIndicatio ns:Moderate persistent asthma, uncomplicated SPRAY 1 SPRAY INTO EACH NOSTRIL EVERY DAY 32 mL 1 2 hydroCHLOROthiazide (MICROZIDE) 12.5 mg Oral CapsuleIndications: Essential hypertension Take 1 Capsule by mouth daily. 90 Capsule 2 4 losartan (COZAAR) 50 mg Oral TabletIndications:E ssential hypertension Take 1 Tablet by mouth 2 times daily. 180 Tablet 2 4 montelukast (SINGULAIR) 10 mg Oral TabletIndications:A nnual physical exam Take 1 Tablet by mouth nightly. 90 Tablet 2 4 Nebulizer Accessories (ALL FLOW 4000 KIT) [facility] Formulary equivalent 1 Each 0 3 pantoprazole (PROTONIX) 40 mg Oral Tablet, Delayed Release (E.C.)Indications:A nnual physical exam Take 1 Tablet by mouth daily. 90 Tablet 3 4 rifAXIMin (XIFAXAN) 550 mg Oral TabletIndications:I rritable bowel syndrome with diarrhea Take 1 Tablet by mouth 3 times daily. 42 Tablet 2 4 tadalafiL (CIALIS) 5 mg Oral TabletIndications:B PH without urinary obstruction Take 1 Tablet by mouth as needed for Erectile Dysfunction. 90 Tablet 2 4 tiZANidine (ZANAFLEX) 2 mg Oral TabletIndications:C hronic low back pain with sciatica, sciatica laterality unspecified, unspecified back pain laterality TAKE 1 TABLET BY MOUTH THREE TIMES A DAY 270 Tablet 4 acyclovir (ZOVIRAX) 800 mg Oral Tablet Take 1 Tablet by mouth 5 times daily for 7 days. 35 Tablet 4 02/26/20 24 albuterol (PROVENTIL HFA;VENTOLIN HFA) 90 mcg/actuation Inhl HFA Aerosol InhalerIndications: Upper respiratory tract infection, unspecified type Inhale 2 Puffs into the lungs every 4 hours as needed for Wheezing. 1 Each 2 4 04/08/20 24 budesonide-formoter oL (SYMBICORT) 160-4.5 mcg/actuation Inhl HFA Aerosol InhalerIndications: History of asthma INHALE 2 PUFFS INTO THE LUNGS TWICE A DAY 30.6 Each 1 4 05/09/20 24 celecoxib (CELEBREX) 200 mg Oral CapsuleIndications: Generalized osteoarthritis of multiple sites Take 1 Capsule by mouth 2 times daily. 60 Capsule 2 3 04/29/20 24 cephALEXin (KEFLEX) 500 mg Oral Capsule Take 1 Capsule by mouth 4 times daily for 7 days. 28 Capsule 4 02/25/20 24 doxycycline hyclate (VIBRA-TABS) 100 mg Oral Tablet Take 1 Tablet by mouth 2 times daily for 7 days. 14 Tablet 4 02/25/20 24 tamsulosin (FLOMAX) 0.4 mg Oral CapsuleIndications: BPH without urinary obstruction TAKE 2 CAPSULES BY MOUTH EVERY DAY AT NIGHT 180 Capsule 4 05/03/20 24 documented as of this encounter Ordered Prescriptions Prescription Sig Dispense Quantity Refills Last Filled Start Date End Date acyclovir (ZOVIRAX) 800 mg Oral Tablet Take 1 Tablet by mouth 5 times daily for 7 days. 35 Tablet 02/19/2024 02/26/2024 documented in this encounter Discharge Disposition Disposition Code Departure Means Destination Comment s Home or Self Group Home documented in this encounter ED Notes * Faisal Avila, - 02/19/2024 5:16 AM EDT Images from the original note were not included. Chief Complaint Patient presents with Abscess Abscess to occiput of head - pt. states the abscess is getting bigger - more painful, feels the knots and area of abscess is spreading quickly Seen in this ED for same on 02/17 58-year-old male presents here with burning sensation, blistering rash of the right posterior scalpand is now radiating around the right side of the neck. Patient states that he initially began having some pain and discomfort 2 days ago and noticed a small blister/knot to the posterior scalp. He was actually seen here in the emergency department yesterday with concern for abscess. Bedside ultrasound performed at that time showed no fluid collection. Did show evidence of cobblestoning concerning for developing cellulitis secondary to presumed folliculitis and patient was started on Bactrim and Keflex. States that he has taken 24 hours of the antibiotic but throughout the day yesterday he beg an having burning sensation and felt as though his posterior right scalp and right lateral neck wassunburn. He denies any decreased range of motion or stiffness of the neck of any kind. He denies any fever, chills, nausea or vomiting. His then noticed some blisters starting to form which seemto be spreading throughout the right lateral neck which ultimately prompted ER evaluation. He denies any eye pain or blistering formation around the eye. Patient History Allergies Allergen Reactions Abilify [Aripiprazole] Other (See Comments) convulsions Unable To Assess Patient does not take any narcotic medications Home Medications: Prior to Admission medications Medication Sig Start Date End Date Taking? Authorizing Provider albuterol (PROVENTIL HFA;VENTOLIN HFA) 90 mcg/actuation Inhl HFA Aerosol Inhaler Inhale 2 Puffs into the lungs every 4 hours as needed for Wheezing. 08/17/23 Yes Steffanie Fulton APRN albuterol (PROVENTIL) 2.5 mg /3 mL (0.083 %) Inhl Solution for Nebulization Take 3 mL by nebulization every 4 hours as needed for Wheezing. 11/29/23 Yes Steffanie Fulton APRN albuterol (VENTOLIN HFA) 90 mcg/actuation Inhl HFA Aerosol Inhaler INHALE 1 TO 2 PUFFS BY MOUTH EVERY 4 HOURS NEEDED FOR WHEEZING 06/13/23 Yes Steffanie Fulton APRN amLODIPine (NORVASC) 5 mg Oral Tablet Take 1 Tablet by mouth daily. 11/29/23 Yes Steffanie Fulton APRN atorvastatin (LIPITOR) 40 mg Oral Tablet Take 1 Tablet by mouth nightly. 11/29/23 Yes Steffanie Fulton APRN betamethasone dipropionate (DIPROLENE) 0.05 % Top Ointment APPLY TO AFFECTED AREA EVERY DAY 11/04/21Yes Marcela De Leon MD budesonide-formoteroL (SYMBICORT) 160-4.5 mcg/actuation Inhl HFA Aerosol Inhaler INHALE 2 PUFFS INTO THE LUNGS TWICE A DAY 12/01/23 Yes Steffanie Fulton APRN buPROPion (WELLBUTRIN XL) 150 mg Oral Tablet Sustained Release 24 hr Take 1 Tablet by mouth every morning. 01/31/24 Yes Steffanie Fulton APRN celecoxib (CELEBREX) 200 mg Oral Capsule Take 1 Capsule by mouth 2 times daily. 04/24/23 Yes Ligia Wiley MD cephALEXin (KEFLEX) 500 mg Oral Capsule Take 1 Capsule by mouth 4 times daily for 7 days. 02/18/24 02/25/24 Yes Reginald Saeed MD colestipoL (COLESTID) 1 gram Oral Tablet TAKE 1 TABLET BY MOUTH 2 TIMES DAILY. NEEDS AN APPOINTMENT12/06/21 Yes Michael Mckeon MD dextromethorphan-guaiFENesin (MUCINEX DM) 30-600 mg Oral Tablet Sustained Release 12 hr Take 1 Tablet by mouth every 12 hours. 12/01/23 Yes Steffanie Fulton APRN diclofenac (VOLTAREN) 1 % Top Gel APPLY 2 GRAMS TOPICALLY 4 TIMES DAILY DIRECTED. 02/06/24 Yes Shaheed Riley DO doxycycline hyclate (VIBRA-TABS) 100 mg Oral Tablet Take 1 Tablet by mouth 2 times daily for 7 days. 02/18/24 02/25/24 Yes Reginald Saeed MD fluticasone propionate (FLONASE) 50 mcg/actuation Nasl [place], Suspension SPRAY 1 SPRAY INTO EACH NOSTRIL EVERY DAY 11/04/21 Yes Marcela De Leon MD hydroCHLOROthiazide (MICROZIDE) 12.5 mg Oral Capsule Take 1 Capsule by mouth daily. 11/29/23 Yes Steffanie Fulton APRN losartan (COZAAR) 50 mg Oral Tablet Take 1 Tablet by mouth 2 times daily. 11/29/23 Yes Steffanie Fulton APRN methylPREDNISolone (MEDROL DOSPACK) 4 mg Oral Tablets, Dose Pack See package instructions 02/06/24 Yes Shaheed Riley DO montelukast (SINGULAIR) 10 mg Oral Tablet Take 1 Tablet by mouth nightly. 11/29/23 Yes Steffanie Fulton APRN Nebulizer Accessories (ALL FLOW 4000 KIT) [facility] Formulary equivalent 06/27/12 Yes Carola Arcos MD pantoprazole (PROTONIX) 40 mg Oral Tablet, Delayed Release (E.C.) Take 1 Tablet by mouth daily. 11/29/23 Yes Steffanie Fulton APRN rifAXIMin (XIFAXAN) 550 mg Oral Tablet Take 1 Tablet by mouth 2 times daily. 11/15/23 Yes Steffanie Fulton APRN rifAXIMin (XIFAXAN) 550 mg Oral Tablet Take 1 Tablet by mouth 3 times daily. 11/07/23 Yes Michael Mckeon MD tadalafiL (CIALIS) 5 mg Oral Tablet Take 1 Tablet by mouth as needed for Erectile Dysfunction. Patient taking differently: Take 5 mg by mouth daily. 12/11/23 Yes Steffanie Fulton APRN tamsulosin (FLOMAX) 0.4 mg Oral Capsule TAKE 2 CAPSULES BY MOUTH EVERY DAY AT NIGHT 02/05/24 Yes Kirstin Steffanie, NUCLEAR MEDICINE PHYSICIAN tamsulosin (FLOMAX) 0.4 mg Oral Capsule Take 1 Capsule by mouth nightly. 02/05/24 Yes Marcela De Leon MD tiZANidine (ZANAFLEX) 2 mg Oral Tablet TAKE 1 TABLET BY MOUTH THREE TIMES A DAY 12/08/23 Yes Steffanie Fulton APRN acyclovir (ZOVIRAX) 800 mg Oral Tablet Take 1 Tablet by mouth 5 times daily for 7 days. 02/19/24 02/26/24 Faisal Avila DO Past Medical History: Past Medical History: Diagnosis Date Arthritis Asthma 06/02/2010 Bipolar affective (HCC) Blood transfusion EPHRAIM (generalized anxiety disorder) Heart attack (HCC) Heroin abuse (HCC) Quit August Hypertension IBS (irritable bowel syndrome) Opiate dependence ([facility]) Remission x 5 years Pneumonia Pneumothorax Social History: reports that he has never smoked. He has never been exposed to tobacco smoke. His smokeless tobacco use includes snuff. He reports that he does not drink alcohol and does not use drugs. E-Cigarettes (such as Vapes or Juul) E-Cigarette Use Never User Family History: Family History Problem Relation Age of Onset Diabetes Mother Heart Disease Mother High Blood Pressure Mother High Cholesterol Mother Cancer Father 40 stomach Other (Diabetes living) Sister 1 sister passed No Known Problems Brother Diabetes Maternal Grandmother No Known Problems Maternal Grandfather Cancer Paternal Grandmother Surgical History: Past Surgical History: Procedure Laterality [...] REVISION-ANTERIOR ; Surgeon: Augie Ramires MD; Location: [facility] OR; Service: Orthopedics KNEE SURGERY LEFT ACL RECONSTRUCTION KNEE SURGERY LEFT ARTHROSCOPIES IRRAGATION X 7 FOR INFECTION KNEE SURGERY RIGHT ARTHROSCOPIC MENICUS REPAIR SHOULDER ARTHROSCOPY Right 11/29/2019 RIGHT SHOULDER ARTHROSCOPIC ROTATOR CUFF REPAIR DECOMPRESSION ACROMIOPLASTY, ACROMIOCLAVICULAR JOINT EXCISION; Surgeon: Kenny Loja MD; Location: [facility]; Service: Orthopedics TOTAL HIP ARTHROPLASTY Left 2009 Review of Systems Review of Systems All other systems reviewed and are negative. Physical Exam Blood pressure 129/81, pulse 88, temperature 97.8 ??F (36.6 ??C), temperature source Oral, resp. rate 18, SpO2 94%. Physical Exam Vitals and nursing note reviewed. Constitutional: General: He is not in acute distress. Appearance: Normal appearance. He is well-developed. He is not ill-appearing, toxic-appearing or diaphoretic. Comments: Patient sitting up in bed resting comfortably. Speaking in full and clear sentences in nodistress. HENT: Head: Comments: See attached pictures. Patient has erythema and vesicular formation of the right lateral occipital area and extending around the right lateral neck. Does not seem to cross midline mostly concerning for a varicella zoster type rash. Does have some slight induration and swelling of the posterior right occiput but there is no fluctuance on exam or active purulent drainage of any kind. Cardiovascular: Rate and Rhythm: Normal rate and regular rhythm. Pulmonary: Effort: Pulmonary effort is normal. No tachypnea or respiratory distress. Breath sounds: Normal breath sounds. No wheezing or rhonchi. Abdominal: Palpations: Abdomen is soft. Musculoskeletal: General: No swelling or tenderness. Normal range of motion. Cervical back: Normal range of motion and neck supple. No rigidity or tenderness. Skin: General: Skin is warm and dry. Findings: Erythema, lesion and rash present. Comments: Rash as noted above to the right occipital area and right lateral neck. Neurological: General: No focal deficit present. Mental Status: He is alert and oriented to person, place, and time. Psychiatric: Mood and Affect: Mood normal. Behavior: Behavior normal. Procedures Radiology/EKG/Labs: ED Course: Appropriate laboratory and radiology studies reviewed 58-year-old male presents here with the above history and physical exam concerning mostly for a varicella zoster type rash. Patient's rash started in the right posterior occipital area and does have blistering formation in this area. Vesicles are now spreading throughout the right lateral neck in apattern consistent with shingles. Does not cross midline. Patient denies any systemic symptoms of any kind. He is afebrile and in no distress. He has full and intact range of motion of the neck on exam. Did perform bedside ultrasound of the right posterior occipital area without any evidence of fluid collection to suggest abscess. Discussed with him that this could be local inflammatory changes versus possible lymph node enlargement secondary to shingles itself. At this point I do not feel thatany attempts at incision and drainage are indicated especially given evidence of shingles. He already has an appointment with PCP today at 10 AM which he stated that he was going to keep. I encouraged him to go ahead and continue the oral antibiotics but did prescribe acyclovir and first dose was gi anthony here in the emergency department. Did offer pain medication but patient states that he is a recovering heroin addict and absolutely refuses any narcotics. Recommended to continue his Celebrex andTylenol at home. He is otherwise in no distress of any kind. Very strict return precautions gone over with the patient in detail. ED Clinical Impression: Final diagnoses: Herpes zoster without complication (Primary) Critical Care time MDM Medical Decision Making Problems Addressed: Herpes zoster without complication: complicated acute illness or injury Amount and/or Complexity of Data Reviewed External Data Reviewed: notes. Risk Prescription drug management. Condition at Discharge/Transfer from Department: Stable This chart was completed using voice recognition technology and may contain unintended errors Faisal Avila DO 02/20/24 0308 documented in this encounter Plan of Treatment Upcoming Encounters Date Type Department Care Team (Late st Contact Info) Description 06/28/2024 9:40 AM EST Clinical Support ANTOLIN [place] [address] [place] [phone] 11/19/2024 1:40 PM EDT Office Visit SEP Neurology [facility] [address] [place] [phone] Osman Lyndsay Polina, [address] [place] [address] documented as of this encounter [...] without complication- Primary documented in this encounter Administered Medications Inactive Administered Medications - up to 1 most recent administrations Medication Order MAR Action Action Date Dose Rate Site acyclovir (ZOVIrax) capsule 800 mg 800 mg, Oral, ONCE, 1 dose, On Mon02/19/24 at 0615, Reason for Therapy: Infection Documented, Indication: Skin/soft tissue Given 02/19/2024 6:10 AM EDT 800 mg documented in this encounter Active and Recently Administered Medications Times are shown in EDT. Scheduled Medication Order 02/17/2024 02/18/2024 02/19/2024 acyclovir (ZOVIrax) capsule 800 mg (COMPLETED) 800 mg, Oral, ONCE, 1 dose, On Mon02/19/24 at 0615, Reason for Therapy: Infection Documented, Indication: Skin/soft tissue 0610 (Given - Provid er: Rocio Karimi RN) documented in this encounter Additional Health Concerns Infection Onset Date Last Indicated Resolved Time INFLUENZA 02/06/2024 02/06/2024 02/20/2024 10:1 2 PM EDT documented as of this encounter Care Teams Home Teaching Grades 9 Thru 12 Teacher Relationship Specialty Start Date End Date Steffanie Fulton APRN [address] [place] [address] PCP - General Nurse Practitioner 07/26/21 documented as of this encounter
--- OUTSIDE RECORDS SUMMARY | 2024-05-29 15:34 | XMS_ITS | Encounter Summary ---
Author Organization [place] [address] Care Team Providers Care Punch Press Feeder Name Role Phone Steffanie Fulton APRN Primary Care Provider +1- [phone] Reason for Visit * Reason Comments Referral Encounter Details Date Type Department Care Team (Late st Contact Info) Description 03/04/2024 10:15 AM EDT Office Visit [facility] [address] [place] [phone] Mariangel Lamb APRN [address] [place] [address] Post herpetic neuralgia (Primary Dx); Herpes zoster without complication; History of drug use; Essential hypertension Social History Tobacco Use Types Packs/Day Years [...] Sign Reading Time Taken Comments Blood Pressure 168/100 03/04/2024 10:44 AM EDT Pulse 105 03/04/2024 10:44 AM EDT Temperature 37.4 ??C (99.3 ??F) 03/04/2024 10:44 AM E DT Respiratory Rate - - Oxygen Saturation 95% 03/04/2024 10:44 AM EDT Inhaled Oxygen Concentration - - Weight 100.7 kg (222 lb) 03/04/2024 10:44 AM EDT Height 170.2 cm (5' 7 ) 03/04/2024 10:44 AM EDT Body Mass Index 34.77 03/04/2024 10:44 AM EDT documented in this encounter Functional [...] No 11/29/2023 9:28 AM EDT Haylie Krishnan [place] documented in this encounter Ordered Prescriptions Prescription Sig Dispense Quantity Refills Last Filled Start Date End Date gabapentin (NEURONTIN) 600 mg Oral TabletIndications: Post herpetic neuralgia,Herpes zoster without complication Take 1 Tablet by mouth daily. 30 Tablet 2 03/04/2024 03/12/2024 documented in this encounter Progress Notes * Mariangel Lamb, YOLI - 03/04/2024 10:15 AM EDT Vitals: 03/04/24 1044 BP: (!) 168/100 Pulse: 105 Temp: 99.3 ??F (37.4 ??C) TempSrc: Temporal SpO2: 95% Weight: 222 lb (100.7 kg) Height: 5' 7 (1.702 m) Body mass index is 34.77 kg/m??. SUBJECTIVE: Chief Complaint Patient presents with ??? Referral HPI: Patient c/o needing referral for a scale clerk states that he I still having trouble with the shingles, patient states he was doing well then more came up over the weekend. Patient states that e used OTC medications that the pharmacy recommended and icing. Steroids provided the most relief He started gabapentin 6 days ago. Is still burning. Any heat makes it feel like it is on fire. He has been unable to work Review of Systems Denies: fever, chills, nausea, emesis, diarrhea, chest pain, sob, dark or bloody stools, urinary symptoms,neuro symptoms. OBJECTIVE: Physical Exam Constitutional: Appearance: Normal appearance. HENT: Head: Normocephalic and atraumatic. Cardiovascular: Rate and Rhythm: Normal rate and regular rhythm. Pulses: Normal pulses. Heart sounds: Normal heart sounds. Pulmonary: Effort: Pulmonary effort is normal. Breath sounds: Normal breath sounds. Skin: General: Skin is warm and dry. Findings: Rash (No vesicular lesions, mild crusting but otherwise healing well) present. Neurological: Mental Status: He is alert and oriented to person, place, and time. Psychiatric: Mood and Affect: Mood normal. Assessment Diagnoses and all orders for this visit: Post herpetic neuralgia Comments: Increase gabapentin dosage slowly Orders: - gabapentin (NEURONTIN) 600 mg Oral Tablet; Take 1 Tablet by mouth daily. Dispense: 30 Tablet; Refill: 2 - methylPREDNISolone acetate (DEPO-Medrol) injection 80 mg Herpes zoster without complication - gabapentin (NEURONTIN) 600 mg Oral Tablet; Take 1 Tablet by mouth daily. Dispense: 30 Tablet; Refill: 2 - methylPREDNISolone acetate (DEPO-Medrol) injection 80 mg History of drug use Comments: Wants to avoid pain medications Essential hypertension Comments: Return for follow-up once shingles is improved documented in this encounter Miscellaneous Notes * Patient Instructions - Genna Day MA - 03/04/2024 10:15 AM EDT You may be contacted by mail or e-mail to participate in a patient satisfaction survey regarding your office visit today. We value your opinion and depend on your feedback to make improvements and provide you with the best possible experience while receiving high quality medical treatment. Your time in completing this survey is greatly appreciated. documented in this encounter Plan of Treatment Upcoming Encounters Date Type Department Care Team (Late st Contact Info) Description 06/28/2024 9:40 AM EST Clinical Support [facility] [address] [place] [phone] 11/19/2024 1:40 PM EDT Office Visit [facility] [address] [place] [phone] Lyndsay Brewer DO [address] [place] [address] documented as of this encounter Goals Goal Patient Goal Type Associated Problems Recent Progress Patient-Stated? Author Blood Pressure < 140/90 Blood Pressure 134/84(2023 1:16 PM EST) Yana Pina, RMA Eat better, exercise, reach an ideal body weight General No Yana Choi, RMA Stay Tobacco Free Lifestyle No Yana Choi RMA documented as of this encounter Visit Diagnoses Diagnosis Post herpetic neuralgia- Primary Herpes zoster with other nervous system complications Herpes zoster without complication History of drug use Essential hypertension Unspecified essential hypertension documented in this encounter Administered Medications Inactive Administered Medications - up to 1 most recent administrations Medication Order MAR Action Action Date Dose Rate Site methylPREDNISolone acetate (DEPO-Medrol) injection 80 mg 80 mg, Intramuscular, ONCE, 1 dose, On Mon03/04/24 at 1115, Dx: 1. Post herpetic neuralgia 2. Herpes zoster without complicationIndications:P ost herpetic neuralgia,Herpes zoster without complication Given 03/04/2024 11:31 AM EDT 80 mg Right upper gluteus documented in this encounter Discontinued Medications Medication Sig Discontinue Reason Start Date End Da te gabapentin (NEURONTIN) 300 mg Oral CapsuleIndications:Post herpetic neuralgia,Herpes zoster with complication Take 1 Capsule by mouth 3 times daily. Dose adjustment 02/27/2024 03/04/2024 documented as of this encounter Care Teams Punch Press Feeder Relationship Specialty Start Date End Date Steffanie Fulton APRN [address] [place] [address] PCP - General Nurse Practitioner 07/26/21 documented as of this encounter
--- OUTSIDE RECORDS SUMMARY | 2024-05-29 15:34 | XMS_ITS | Encounter Summary ---
Author Organization [place] [address] Care Team Providers Care Senior Construction Manager Name Role Phone KirstinSteffanie YOLI Primary Care Provider +1- [phone] Reason for Visit * Reason Comments Hospital Follow Up Encounter Details Date Type Department Care Team (Late st Contact Info) Description 03/12/2024 9:45 AM EDT Office Visit [facility] [address] [place] [phone] Deanna Diaz APRN [address] [place] [address] Herpes zoster with complication (Primary Dx); Post [...] Sign Reading Time Taken Comments Blood Pressure 158/88 03/12/2024 9:48 AM EDT Pulse 83 03/12/2024 9:48 AM EDT Temperature 37.1 ??C (98.8 ??F) 03/12/2024 9:48 AM ED T Respiratory Rate - - Oxygen Saturation 97% 03/12/2024 9:48 AM EDT Inhaled Oxygen Concentration - - Weight 101.4 kg (223 lb 9.6 oz) 03/12/2024 9:48 AM EDT Height 170.2 cm (5' 7 ) 03/12/2024 9:48 AM EDT Body Mass Index 35.02 03/12/2024 9:48 AM EDT documented in this encounter Functional [...] Haylie Krishnan MA documented in this encounter Ordered Prescriptions Prescription Sig Dispense Quantity Refills Last Filled Start Date End Date HYDROcodone-acetam inophen (NORCO) 5-325 mg Oral TabletIndications: Post herpetic neuralgia Take 1-2 Tablets by mouth every 6 hours as needed for Acute Pain > 3 Days Medically Necessary (R52) for up to 5 days. 40 Tablet 03/12/2024 gabapentin (NEURONTIN) 800 mg Oral TabletIndications: Post herpetic neuralgia,Herpes zoster without complication Take 1 Tablet by mouth 3 times daily for 30 days. 90 Tablet 03/12/2024 4 documented in this encounter Progress Notes * Deanna Diaz APRN - 03/12/2024 9:45 AM EDT Vitals: 03/12/24 0948 BP: (!) 158/88 Pulse: 83 Temp: 98.8 ??F (37.1 ??C) TempSrc: Temporal SpO2: 97% Weight: 223 lb 9.6 oz (101.4 kg) Height: 5' 7 (1.702 m) Body mass index is 35.02 kg/m??. SUBJECTIVE: Chief Complaint Patient presents with ??? Hospital Follow Up HPI: Hospital Follow-Up: Hospital/ER Follow-Up: Mr. Whitlock is a 58 y.o. male here for hospital follow up. He was admitted 03/09/24 and discharged03/09/24 with a diagnosis of Shingles. Pain became unbearable and was seen at [facility] ER. Given percocet rx #9 3 day supply. The initial rah is getting better but the discomfort has not. Still unable to wear clothing on site. Hospital discharge summary, most recent labs and imaging, admission notes reviewed: Yes He is compliant with discharge medications / treatment. He is not having medication side effects. HPI: Pt is in office for nerve damage caused by shingles [id number]. Has been using icy hot helps but he's been using it more then the directions say. Reviewed Dejon, he picked up the 600mg rx 03/04/24. Picked up the 300mg rx on 02-27-24.Still having a lot of post herpatic neuralgia. The initial rash has mostly cleared no weaping lesions, but still very red inflamed. Review of Systems Constitutional: Negative. HENT: Negative. Respiratory: Negative. Cardiovascular: Negative. Skin: Positive for rash. Psychiatric/Behavioral: Negative. OBJECTIVE: Physical Exam Constitutional: Appearance: [...] Diagnoses and all orders for this visit: Herpes zoster with complication Post herpetic neuralgia Comments: Increase gabapentin dosage slowly Orders: - gabapentin (NEURONTIN) 800 mg Oral Tablet; Take 1 Tablet by mouth 3 times daily for 30 days. Dispense: 90 Tablet; Refill: 0 - HYDROcodone-acetaminophen (NORCO) 5-325 mg Oral Tablet; Take 1-2 Tablets by mouth every 6 hours as needed for Acute Pain > 3 Days Medically Necessary (R52) for up to 5 days. Dispense: 40 Tablet;Refill: 0 Herpes zoster without complication - gabapentin (NEURONTIN) 800 mg Oral Tablet; Take 1 Tablet by mouth 3 times daily for 30 days. Dispense: 90 Tablet; Refill: 0 Gave short course of vicodin, and increased gabbapentin dose. Follow up if symptoms worsen or fail to improve. documented in this encounter Plan of Treatment Upcoming Encounters Date Type Department Care Team (Late st Contact Info) Description 06/28/2024 9:40 AM EST Clinical Support [facility] [address] [place] [phone] 11/19/2024 1:40 PM EDT Office Visit [facility] [address] [place] [address] Lyndsay Brewer DO [address] [place] [address] documented as of this encounter Goals Goal Patient Goal Type Associated Problems Recent Progress Patient-Stated? Author Blood Pressure < 140/90 Blood Pressure 134/84(2023 1:16 PM EST) Yana Pina RMA Eat better, exercise, reach an ideal body weight General No Yana Choi RMA Stay Tobacco Free Lifestyle No Yana Choi RMJane documented as of this encounter Visit Diagnoses Diagnosis Herpes zoster with complication- Primary Post herpetic neuralgia Herpes zoster with other nervous system complications Herpes zoster without complication documented in this encounter Discontinued Medications Medication Sig Discontinue Reason Start Date End Da te gabapentin (NEURONTIN) 600 mg Oral TabletIndications:Post herpetic neuralgia,Herpes zoster without complication Take 1 Tablet by mouth daily. Reorder 03/04/2024 03/12/2024 documented as of this encounter Historical Medications * This list may reflect changes made after this encounter. oxyCODONE (ROXICODONE) 5 mg Oral Tablet Take 5 mg by mouth every 6 hours. 03/10/2024 04/29/2024 added in this encounter Care Teams Senior Construction Manager Relationship Specialty Start Date End Date Steffanie Fulton APRN [address] [place] [address] PCP - General Nurse Practitioner 07/26/21 documented as of this encounter
--- OUTSIDE RECORDS SUMMARY | 2024-05-29 15:34 | XMS_ITS | Encounter Summary ---
Author Organization [place] [address] Care Team Providers Care Railway Switch Operator Name Role Phone Steffanie Fulton APRN Primary Care Provider +1- [phone] Reason for Referral * Consultation (Routine) - Pending Review Specialty Diagnoses / Procedures Referred By Gus t Referred To Contact Diagnoses Post herpetic neuralgia Procedures MI OFFICE/OP CONSLTJ NEW/EST PT MOD MDM 40 MINUTES Steffanie Fulton APRN [address] [place] [address] Phone: tel: fax: Bryce Orr MD [address] [place] [phone] Phone: tel: fax: Referral ID Status Reason Start Date Expiration Date V isits Requested Visits Authorized [id number] Pending Review 03/20/2024 03/20/2025 99 99 Reason for Visit * Reason Comments Herpes Zoster Otalgia Encounter Details Date Type Department Care Team (Late st Contact Info) Description 03/20/2024 9:45 AM EDT Office Visit [facility] [address] [place] [phone] Steffanie Fulton APRN [address] [place] [address] Post herpetic neuralgia (Primary Dx); Herpes zoster with complication Social History Tobacco Use Types Packs/Day [...] Sign Reading Time Taken Comments Blood Pressure 140/84 03/20/2024 9:42 AM EDT Pulse 89 03/20/2024 9:42 AM EDT Temperature 37 ??C (98.6 ??F) 03/20/2024 9:42 AM EDT Respiratory Rate 16 03/20/2024 9:42 AM EDT Oxygen Saturation 99% 03/20/2024 9:42 AM EDT Inhaled Oxygen Concentration - - Weight 102.1 kg (225 lb) 03/20/2024 9:42 AM EDT Height - - Body Mass Index 35.24 03/18/2024 1:32 PM EDT documented in this [...] Refills Last Filled Start Date End Date Capsaicin 0.1 % Top CreamIndications:P ost herpetic neuralgia,Herpes zoster with complication Apply 1 Application topically 2 times daily. 56.6 g 1 03/20/2024 documented in this encounter Progress Notes * Kirstin SteffanieYOLI - 03/20/2024 9:45 AM EDT Vitals: 03/20/24 0942 BP: 140/84 Pulse: 89 Resp: 16 Temp: 98.6 ??F (37 ??C) TempSrc: Temporal SpO2: 99% Weight: 225 lb (102.1 kg) Body mass index is 35.24 kg/m??. SUBJECTIVE: Chief Complaint Patient presents with Herpes Zoster Otalgia HPI: Patient presents for Shingles follow up He has been seen numerous times for ongoing pain/PHN On Gabapentin Was given rx for Pamelor but hasn't started Asking if he would benefit from pain mgmt Review of Systems Constitutional: Negative for fever. HENT: Negative for voice change. Eyes: Negative for redness. Cardiovascular: Negative for chest pain. Gastrointestinal: Negative for abdominal pain. Musculoskeletal: Negative for back pain. Skin: Negative for rash. Neurological: Negative for dizziness and headaches. OBJECTIVE: Physical Exam Constitutional: Appearance: Normal appearance. Cardiovascular: Rate and Rhythm: Normal rate and regular rhythm. Pulses: Normal pulses. Heart sounds: Normal heart sounds. Pulmonary: Effort: Pulmonary effort is normal. Breath sounds: Normal breath sounds. Neurological: Mental Status: He is alert. Psychiatric: Mood and Affect: Mood normal. Behavior: Behavior normal. Assessment Diagnoses and all orders for this visit: Post herpetic neuralgia - Capsaicin 0.1 % Top Cream; Apply 1 Application topically 2 times daily. Dispense: 56.6 g; Refill:1 - AMB REFERRAL TO PAIN CLINIC Herpes zoster with complication - Capsaicin 0.1 % Top Cream; Apply 1 Application topically 2 times daily. Dispense: 56.6 g; Refill:1 documented in this encounter Plan of Treatment Upcoming Encounters Date Type Department Care Team (Late st Contact Info) Description 06/28/2024 9:40 AM EST Clinical Support [facility] [address] [place] [address] 11/19/2024 1:40 PM EDT Office Visit [facility] [address] [place] [place] [address] Lyndsay Brewer DO [address] [place] [address] Scheduled Referrals Name Type Priority Associated Diagnoses Orde r Schedule AMB REFERRAL TO PAIN CLINIC Outpatient Referral Routine Post herpetic neuralgia Ordered: 03/20/2024 documented as of this encounter Goals Goal Patient Goal Type Associated Problems Recent Progress Patient-Stated? Author Blood Pressure < 140/90 Blood Pressure 134/84(2023 1:16 PM EST) Yana Pina RMA Eat better, exercise, reach an ideal body weight General No Yana Choi RMA Stay Tobacco Free Lifestyle No Choi, Yana G, RMA documented as of this encounter Visit Diagnoses Diagnosis Post herpetic neuralgia- Primary Herpes zoster with other nervous system complications Herpes zoster with complication documented in this encounter Care Teams Railway Switch Operator Relationship Specialty Start Date End Date Steffanie Fulton APRN [address] [place] [id number] PCP - General Nurse Practitioner 07/26/21 documented as of this encounter
--- OUTSIDE RECORDS SUMMARY | 2024-05-29 15:34 | XMS_ITS | Encounter Summary ---
Author Organization [place] [address] Care Team Providers Care Wireline Supervisor Name Role Phone YolandaSteffanie devine APRN Primary Care Provider +1- [phone] Reason for Visit * Reason Onset Date Comments Medication Refill 12/11/2023 Encounter Details Date Type Department Care Team (Late st Contact Info) Description 12/11/2023 Refill [facility] [address] [place] [phone] Steffanie Fulton APRN [address] [place] [address] Medication Refill Social History Tobacco Use Types [...] No 11/29/2023 9:28 AM EDT Haylie Krishnan [place] * Is the person blind or does he/she have serious difficulty seeing even when wearing glasses? Answer Date of Assessment Author No 11/29/2023 9:28 AM EDT Haylie Krishnan [place] * Does this person have serious difficulty walking or climbing stairs? Answer Date of Assessment Author No 11/29/2023 9:28 AM EDT Haylie Krishnan [place] * Does this person have difficulty dressing or bathing? Answer Date of Assessment Author No 11/29/2023 9:28 AM EDT Haylie Krishnan [place] * Because of a physical, mental or emotional condition, does this person have difficulty doing errands alone such as visiting a doctor's office or shopping? Answer Date of Assessment Author No 11/29/2023 9:28 AM EDT Haylie Krishnan [place] documented as of this encounter Mental Status * Because of a physical, mental or emotional condition, does this person have serious difficulty concentrating, remembering or making decisions? Answer Entry Date Author No 11/29/2023 9:28 AM EDT Haylie Krishnan [place] documented in this encounter Ordered Prescriptions Prescription Sig Dispense Quantity Refills Last Filled Start Date End Date tadalafiL (CIALIS) 5 mg Oral TabletIndications: BPH without urinary obstruction Take 1 Tablet by mouth as needed for Erectile Dysfunction. 90 Tablet 2 12/11/2023 documented in this encounter Plan of Treatment Upcoming Encounters Date Type Department Care Team (Late st Contact Info) Description 06/28/2024 9:40 AM EST Clinical Support [facility] [address] [place] [phone] 11/19/2024 1:40 PM EDT Office Visit [facility] [address] [facility] [place] [address] Lyndsay Brewer DO [address] [place] [address] documented as of this encounter [...] Discontinue Reason Start Date End Da te tadalafiL (CIALIS) 5 mg Oral TabletIndications:BPH without urinary obstruction TAKE 1 TAB BY MOUTH NEEDED. FOR ERECTILE DYSFUNCTION (NOT COVERED) Reorder 02/20/2023 12/11/2023 documented as of this encounter Additional Health Concerns Infection Onset Date Last Indicated Resolved Time INFLUENZA 11/23/2023 11/29/2023 12/13/2023 10:1 2 PM EDT documented as of this encounter Care Teams Wireline Supervisor Relationship Specialty Start Date End Date Steffanie Fulton APRN [address] [place] [address] PCP - General Nurse Practitioner 07/26/21 documented as of this encounter
--- OUTSIDE RECORDS SUMMARY | 2024-05-29 15:34 | XMS_ITS | Encounter Summary ---
Author Organization [place] [address] Care Team Providers Care Clinical Education Consultant Name Role Phone Steffanie Fulton APRN Primary Care Provider +1- [phone],[place] Unavailable Unavailabl e Reason for Visit * Reason Comments Medication Refill Encounter Details Date Type Department Care Team ([facility] Contact Info) Description 02/02/2024 Refill [facility] [address] [place] [address] Marcela De Leon MD Medication Refill Social History Tobacco Use Types [...] No 11/29/2023 9:28 AM EDT Haylie Krishnan [place] * Does this person have difficulty dressing or bathing? Answer Date of Assessment Author No 11/29/2023 9:28 AM EDT Haylie Krishnan [place] * Because of a physical, mental or emotional condition, does this person have difficulty doing errands alone such as visiting a doctor's office or shopping? Answer Date of Assessment Author No 11/29/2023 9:28 AM EDT Haylie Krishnan [place] documented as of this encounter Mental Status * Because of a physical, mental or emotional condition, does this person have serious difficulty concentrating, remembering or making decisions? Answer Entry Date Author No 11/29/2023 9:28 AM EDT Haylie Krishnan [place] documented in this encounter Ordered Prescriptions Prescription Sig Dispense Quantity Refills Last Filled Start Date End Date tamsulosin (FLOMAX) 0.4 mg Oral CapsuleIndications :BPH without urinary obstruction TAKE 2 CAPSULES BY MOUTH EVERY DAY AT NIGHT 180 Capsule 02/05/2024 4 documented in this encounter Plan of Treatment Upcoming Encounters Date Type Department Care Team (Late st Contact Info) Description 06/28/2024 9:40 AM EST Clinical Support [facility] [place] [address] [place] [phone] 11/19/2024 1:40 PM EDT Office Visit [facility] Neu[facility] [address] [place] [address] Lyndsay Brewer, DO [address] [place] [address] documented as of this encounter [...] tract symptoms (LUTS) documented in this encounter Care Teams Clinical Education Consultant Relationship Specialty Start Date End Date Steffanie Fulton APRN [address] [place] [address] PCP - General Nurse Practitioner 07/26/[address],LD Dietitian 02/02/24 02/02/24 documented as of this encounter
--- OUTSIDE RECORDS SUMMARY | 2024-05-29 15:34 | XMS_ITS | Encounter Summary ---
Author Organization [place] [address] Care Team Providers Care Certified Flex Endoscope Reprocessor Name Role Phone Steffanie Fulton APRN Primary Care Provider [phone]- [phone] Reason for Visit * Reason Comments Medication Refill Encounter Details Date Type Department Care Team (Late st Contact Info) Description 01/26/2024 Refill [facility] [address] [place] [address] Marcela De Leon MD Medication [...] No 11/29/2023 9:28 AM EDT Haylie Krishnan [place] * Is the person blind or does he/she have serious difficulty seeing even when wearing glasses? Answer Date of Assessment Author No 11/29/2023 9:28 AM EDT Haylie Krishnan [place] * Does this person have serious difficulty walking or climbing stairs? Answer Date of Assessment Author No 11/29/2023 9:28 AM EDT Haylie Krishnan [place] * Does this person have difficulty dressing or bathing? Answer Date of Assessment Author No 11/29/2023 9:28 AM EDT Haylie Krishnan [place] * Because of a physical, mental or emotional condition, does this person have difficulty doing errands alone such as visiting a doctor's office or shopping? Answer Date of Assessment Author No 11/29/2023 9:28 AM EDT RejiHaylie tse [place] documented as of this encounter Mental Status * Because of a physical, mental or emotional condition, does this person have serious difficulty concentrating, remembering or making decisions? Answer Entry Date Author No 11/29/2023 9:28 AM EDT Eulogio Haylie [place] documented in this encounter Ordered Prescriptions Prescription Sig Dispense Quantity Refills Last Filled Start Date End Date tamsulosin (FLOMAX) 0.4 mg Oral CapsuleIndications :BPH without urinary obstruction TAKE 2 CAPSULES BY MOUTH EVERY DAY AT NIGHT 180 Capsule 01/26/2024 documented in this encounter Plan of Treatment Upcoming Encounters Date Type Department Care Team (Late st Contact Info) Description 06/28/2024 9:40 AM EST Clinical Support [facility] [address] [place] [id number] 11/19/2024 1:40 PM EDT Office Visit [facility] Neurology [facility] [address] [place] [address] Lyndsay Brewer DO [address] [place] [address] documented as of this encounter Goals Goal Patient Goal Type Associated Problems Recent Progress Patient-Stated? Author Blood Pressure < 140/90 Blood Pressure 134/84(2023 1:16 PM EST) No Yaan Choi RMA Eat better, exercise, reach an [...] CAPSULES BY MOUTH EVERY DAY AT NIGHT 10/31/2023 01/26/2024 documented as of this encounter Care Teams Certified Flex Endoscope Reprocessor Relationship Specialty Start Date End Date Steffanie Fulton APRN [address] [place] [address] PCP - General Nurse Practitioner 07/26/21 documented as of this encounter
--- OUTSIDE RECORDS SUMMARY | 2024-05-29 15:34 | XMS_ITS | Encounter Summary ---
Author Organization [facility] [place] [address] Care Team Providers Care Supervisor Intelligence Analyst Name Role Phone Steffanie Fulton APRN Primary Care Provider [phone]- [phone] Reason for Visit * Reason Comments Abscess Has swollen spot on back of his neck. May be a bug bite. Encounter Details Date Type Department Care Team ([place] Contact Info) Description 02/18/2024 8:49 AM EDT - 02/18/2024 9:27 AM EDT [facility] [address] [facility] [place] [address] Reginald Saeed MD [address] [place] [address] Cellulitis, unspecified cellulitis site (Primary Dx); Folliculitis Discharge Disposition: Home or Self Care Social [...] Sign Reading Time Taken Comments Blood Pressure 158/97 02/18/2024 8:52 AM EDT Pulse 96 02/18/2024 8:47 AM EDT Temperature 36.9 ??C (98.4 ??F) 02/18/2024 8:52 AM ED T Respiratory Rate 20 02/18/2024 8:47 AM EDT Oxygen Saturation 97% 02/18/2024 8:47 AM EDT Inhaled Oxygen Concentration - - [...] Entry Date Author No 11/29/2023 9:28 AM Haylie [place], [place] documented in this encounter Discharge Instructions * Attachments The following attachments cannot be sent through Care Everywhere. * Bacterial folliculitis (Uzbek) * Cellulitis (skin infection) in adults ??? Discharge instructions (Uzbek) documented in this encounter Medications at Time [...] 4 fluticasone propionate (FLONASE) 50 mcg/actuation Nasl [place], SuspensionIndicatio ns:Moderate persistent asthma, uncomplicated SPRAY 1 [...] 4 Nebulizer Accessories (ALL FLOW 4000 KIT) [facility] Formulary equivalent 1 Each 0 3 pantoprazole [...] THREE TIMES A DAY 270 Tablet 4 albuterol (PROVENTIL HFA;VENTOLIN HFA) 90 mcg/actuation Inhl [...] Refills Last Filled Start Date End Date doxycycline hyclate (VIBRA-TABS) 100 mg Oral Tablet Take 1 Tablet by mouth 2 times daily for 7 days. 14 Tablet 02/18/2024 4 cephALEXin (KEFLEX) 500 mg Oral Capsule Take 1 Capsule by mouth 4 times daily for 7 days. 28 Capsule 02/18/2024 4 documented in this encounter Discharge Disposition Disposition Code Departure Means Destination Comment s Home or Self [facility] documented in this encounter ED Notes * Reginald Saeed MD - 02/18/2024 8:45 AM EDT Chief Complaint Patient presents with Abscess Has swollen spot on back of his neck. May be a bug bite. This is a 58-year-old male presenting today for evaluation of irritated and swollen skin of the occipital scalp. He reports that he had a swollen knot on the back of his head. His squeezed this area because they thought it was an ingrown hair. She reports a few follicles of hair came out in addition to a very small quantity of pus. Over the past few days since that event, the area of swelling has slightly expanded. This is limited to the occipital scalp. No spreading to the anterior neckstructures. Patient denies systemic symptoms such as fever, chills. Denies associated headaches, spine pain, nuchal rigidity, light sensitivity. He denies history of immunocompromise and diabetes mellitus. He does report having a history of staph infection many years ago, but denies history of abscess requiring incision and drainage Abscess Patient History Allergies Allergen Reactions Abilify [Aripiprazole] [...] times daily. 04/24/23 Yes Ligia Wiley MD colestipoL (COLESTID) 1 gram Oral Tablet TAKE 1 TABLET BY MOUTH 2 TIMES DAILY. NEEDS AN APPOINTMENT12/06/21 Yes Michael Mckeon MD dextromethorphan-guaiFENesin (MUCINEX DM) 30-600 mg Oral Tablet Sustained Release 12 hr Take 1 Tablet by mouth every 12 hours. 12/01/23 Yes Steffanie uFlton APRN diclofenac (VOLTAREN) 1 % Top Gel APPLY 2 GRAMS TOPICALLY 4 TIMES DAILY DIRECTED. 02/06/24 Yes Shaheed Riley DO fluticasone propionate (FLONASE) 50 mcg/actuation Nasl [place], Suspension SPRAY 1 SPRAY INTO EACH NOSTRIL [...] APRN Nebulizer Accessories (ALL FLOW 4000 KIT) [facility] Formulary equivalent 06/27/12 Yes Carola Arcos MD [...] MOUTH EVERY DAY AT NIGHT 02/05/24 Yes Steffanie Fulton APRN tamsulosin (FLOMAX) 0.4 mg Oral Capsule Take 1 Capsule by mouth nightly. 02/05/24 Yes Marcela De Leon MD tiZANidine (ZANAFLEX) 2 mg Oral Tablet TAKE 1 TABLET BY MOUTH THREE TIMES A DAY 12/08/23 Yes Steffanie Fulton APRN Past Medical History: Past Medical History: Diagnosis Date Arthritis Asthma 06/02/2010 Bipolar affective ([facility]) Blood transfusion EPHRAIM (generalized anxiety disorder) Heart attack ([facility]) Heroin abuse ([facility]) Quit August Hypertension IBS (irritable bowel syndrome) Opiate dependence ([facility]) Remission x 5 years Pneumonia Pneumothorax Social [...] EXCISION; Surgeon: Kenny Loja MD; Location: [facility]; Service: Orthopedics TOTAL HIP ARTHROPLASTY Left 2009 Review of Systems Review of Systems All other systems reviewed and are negative. Physical Exam Blood pressure 158/97, pulse 96, temperature 98.4 ??F (36.9 ??C), temperature source Oral, resp. rate 20, SpO2 97%. Physical Exam Constitutional: Comments: General: Awake, alert, no acute distress Head: Normocephalic, atraumatic. Patient has focal area of indurated skin on the occipital scalp near palpated external occipital protuberance. This is right of midline. This is palpated at the edge of the hairline. There is no fluctuance. Skin is slightly red. No palpated adjacent adenopathy in the posterior and anterior cervical chain. [id number]-gd-[id number] ultrasound was performed identifying mild superficial cobblestoning of the skin, but no confluent hypoechoic area that would be consistent with abscess. HEENT: Conjunctiva clear, mucosa is moist Neck: Full range of motion is achievable without limitation, no midline tenderness. No nuchal rigidity or meningismus Cardiac: Normal rate, regular rhythm Neuro: Awake, alert, moving all 4 extremities spontaneously Procedures Critical Care time MDM Medical Decision Making 58-year-old male presents today with red swollen skin of the occipital scalp. Symptoms worsened after his squeezed an area that produced very small amount of whitish debris/pus. He does not havesystemic symptoms today. Bocjz-jd-eedo ultrasound and exam is consistent with likely cellulitis/foll iculitis. There are no findings on gxqlv-kl-iosk ultrasound or exam that would be indicative of an abscess. I do not believe incision and drainage is indicated at this time and is likely provide harmwithout benefit. I do not believe he is suffering from invasive infection, adjacent osteomyelitis, meningitis among other considered emergencies such as sepsis. I do not believe any specific test or imaging studies would be of use today. Plan on antibiotic therapy and close follow-up with primary care physician for recheck. Considering reported history of staph infection will start doxycycline.Should avoid Bactrim in context of his antihypertensive regimen. Will also double cover with cephalexin. Return precautions reviewed at bedside advise return to ER for worsening of symptoms, spreading infection despite treatment, associated headache, neck stiffness, fever or any other concerning medical issue. Condition at Discharge/Transfer from Department: Stable This chart was completed using voice recognition technology and may contain unintended errors Reginald Saeed MD 02/18/24 0911 documented in this encounter Plan of Treatment Upcoming Encounters Date Type Department Care Team (Late st Contact Info) Description 06/28/2024 9:40 AM EST Clinical Support [facility] [address] [place] [phone] 11/19/2024 1:40 PM EDT Office Visit [facility] Neurology [facility] [address] [place] [address] Lyndsay Brewer DO [address] [place] [address] documented as of this encounter Goals Goal Patient Goal Type Associated Problems Recent Progress Patient-Stated? Author Blood Pressure < 140/90 Blood Pressure 134/84(2023 1:16 PM EST) No Yana Choi RMA Eat better, exercise, reach an ideal body weight General No Yana Choi RMA Stay Tobacco Free Lifestyle No Yana Choi RMA documented as of this encounter Visit Diagnoses Diagnosis Cellulitis, unspecified cellulitis site- Primary Folliculitis Other specified disease of hair and hair follicles documented in this encounter Administered Medications Inactive Administered Medications - up to 1 most recent administrations Medication Order MAR Action Action Date Dose Rate Site cephALEXin (KEFLEX) capsule 500 mg 500 mg, Oral, ONCE, 1 dose, On 02/18/24 at 0915, Reason for Therapy: Infection Suspected, Indication: Skin/soft tissue Given 02/18/2024 9:16 AM EDT 500 mg doxycycline hyclate (VIBRA-TABS) tablet 100 mg 100 mg, Oral, ONCE, 1 dose, On 02/18/24 at 0915, Reason for Therapy: Infection Suspected, Indication: Skin/soft tissue Given 02/18/2024 9:16 AM EDT 100 mg documented in this encounter Active and Recently Administered Medications Times are shown in EDT. Scheduled Medication Order 02/16/2024 02/17/2024 02/18/2024 cephALEXin (KEFLEX) capsule 500 mg (COMPLETED) 500 mg, Oral, ONCE, 1 dose, On 02/18/24 at 0915, Reason for Therapy: Infection Suspected, Indication: Skin/soft tissue 0916 (Given - Provid er: Dawn Plummer RN) doxycycline hyclate (VIBRA-TABS) tablet 100 mg (COMPLETED) 100 mg, Oral, ONCE, 1 dose, On 02/18/24 at 0915, Reason for Therapy: Infection Suspected, Indication: Skin/soft tissue 0916 (Given - Provid er: Dawn Plummer RN) documented in this encounter Additional Health Concerns Infection Onset Date Last Indicated Resolved Time INFLUENZA 02/06/2024 02/06/2024 02/20/2024 10:1 2 PM EDT documented as of this encounter Care Teams Supervisor Intelligence Analyst Relationship Specialty Start Date End Date Steffanei Fulton APRN [address] [facility] [place] [facility] PCP - General Nurse Practitioner 07/26/21 documented as of this encounter
--- OUTSIDE RECORDS SUMMARY | 2024-05-29 15:34 | XMS_ITS | Encounter Summary ---
Author Organization [place] [address] Care Team Providers Care Continuing Education Specialist Name Role Phone Steffanie Fulton APRN Primary Care Provider [phone]- [phone] Reason for Visit * Reason Onset Date Comments Medication Refill 02/05/2024 Encounter Details Date Type Department Care Team (Late st Contact Info) Description 02/05/2024 Refill [facility] [address] [place] [address] Marcela De Leon MD Medication [...] No 11/29/2023 9:28 AM EDT Haylie Krishnan [place] * Is the person blind or does he/she have serious difficulty seeing even when wearing glasses? Answer Date of Assessment Author No 11/29/2023 9:28 AM EDT Haylie Krishnan [place] * Does this person have serious difficulty walking or climbing stairs? Answer Date of Assessment Author No 11/29/2023 9:28 AM EDT Haylie Krishnan [place] * Does this person have difficulty dressing or bathing? Answer Date of Assessment Author No 11/29/2023 9:28 AM EDT Haylie Krishnan [place] * Because of a physical, mental or emotional condition, does this person have difficulty doing errands alone such as visiting a doctor's office or shopping? Answer Date of Assessment Author No 11/29/2023 9:28 AM EDT Haylie Krishnan [place] documented as of this encounter Mental Status * Because of a physical, mental or emotional condition, does this person have serious difficulty concentrating, remembering or making decisions? Answer Entry Date Author No 11/29/2023 9:28 AM EDT Haylie Krishnan [place] documented in this encounter Ordered Prescriptions Prescription Sig Dispense Quantity Refills Last Filled Start Date End Date tamsulosin (FLOMAX) 0.4 mg Oral CapsuleIndications :BPH without urinary obstruction Take 1 Capsule by mouth nightly. 180 Capsule 02/05/2024 documented in this encounter Plan of Treatment Upcoming Encounters Date Type Department Care Team (Late st Contact Info) Description 06/28/2024 9:40 AM EST Clinical Support [facility] [address] [place] [phone] 11/19/2024 1:40 PM EDT Office Visit SEP Neurology [facility] [address] [place] [address] Lyndsay Brewer DO [address] [place] [address] documented as of this encounter [...] BY MOUTH EVERY DAY AT NIGHT Reorder 01/26/2024 02/05/2024 documented as of this encounter Care Teams Continuing Education Specialist Relationship Specialty Start Date End Date Steffanie Fulton APRN [address] [place] [address] PCP - General Nurse Practitioner 07/26/21 documented as of this encounter
--- OUTSIDE RECORDS SUMMARY | 2024-05-29 15:34 | XMS_ITS | Encounter Summary ---
Author Organization [place] [address] Care Team Providers Care Radiologist Diagnostic Name Role Phone Steffanie Fulton APRN Primary Care Provider [phone] Reason for Referral * Consultation (Routine) - Closed Specialty Diagnoses / Procedures Referred By Gus kunz Referred To Contact Diagnoses Weight gain Steffanie Fulton APRN [address] [place] [address] Phone: tel: fax: [facility] [phone] Appointment [place] [address] Phone: tel: Referral ID Status Reason Start Date Expiration Date Visits Re quested Visits Authorized [id number] Closed 01/31/2024 01/30/2025 99 99 Question Answer Reason for Referral Dietitian Reason for Nutrition Consult General Healthy Diet * Consultation (Routine) - Pending Review Specialty Diagnoses / Procedures Referred By Gus kunz Referred To Contact Bariatrics Diagnoses Weight gain Steffanie Fulton APRN [address] [place] [address] Phone: tel: fax: [facility] [address] [place] [address] Phone: tel: fax: Referral ID Status Reason Start Date Expiration Date V isits Requested Visits Authorized [id number] Pending Review 01/31/2024 01/30/2025 99 99 Reason for Visit * Reason Comments Annual Exam Hypertension Asthma Encounter Details Date Type Department Care Team (Late st Contact Info) Description 01/31/2024 9:15 AM EDT Office Visit [facility] [address] [address] Steffanie Fulton APRN [address] [id number] Annual physical exam (Primary Dx); Weight gain Social History Tobacco Use Types Packs/Day Years [...] Sign Reading Time Taken Comments Blood Pressure 118/72 01/31/2024 8:53 AM EDT Pulse 74 01/31/2024 8:53 AM EDT Temperature 36.6 ??C (97.9 ??F) 01/31/2024 8:53 AM ED T Respiratory Rate 16 01/31/2024 8:53 AM EDT Oxygen Saturation 97% 01/31/2024 8:53 AM EDT Inhaled Oxygen Concentration - - Weight 99.8 kg (220 lb) 01/31/2024 8:53 AM EDT Height - - Body Mass Index 34.46 11/29/2023 9:29 AM EDT documented in this encounter Functional [...] Refills Last Filled Start Date End Date buPROPion (WELLBUTRIN XL) 150 mg Oral Tablet Sustained Release 24 hrIndications:Dudleyg ht gain Take 1 Tablet by mouth every morning. 90 Tablet 3 01/31/2024 04/29/2024 documented in this encounter Progress Notes * Steffanie Fulton APRN - 01/31/2024 9:15 AM EDT Vitals: 01/31/24 0853 BP: 118/72 Pulse: 74 Resp: 16 Temp: 97.9 ??F (36.6 ??C) TempSrc: Temporal SpO2: 97% Weight: 220 lb (99.8 kg) Body mass index is 34.46 kg/m??. SUBJECTIVE: Chief Complaint Patient presents with Annual Exam Hypertension Asthma HPI: Well Adult: Subjective Mr. Whitlock is a 58 y.o. male here for an annual wellness visit. Interested in weight loss. Going to Ortho to talk about knee replacement, needs to lose weight before physical therapy. Tobacco-dips Diet has been poor Diet: fast food Exercise: Some Activities of Daily Living: Functional Level: Self-care ADL Limitations: none Social Interaction Screen: Do you have concerns about issues that may impact social interaction such as developmental or behavioral/mental health conditions? 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 Rectal bleeding Diarrhea Polyp of colon COVID-19 COPD, moderate (HCC) Nodule of right lung Acute interstitial pneumonia (HCC) Community acquired pneumonia Past Medical History: Diagnosis Date Arthritis Asthma 06/02/2010 Bipolar affective (HCC) Blood transfusion EPHRAIM (generalized anxiety disorder) Heart attack (HCC) Heroin abuse (HCC) Quit August Hypertension IBS (irritable bowel syndrome) Opiate dependence ([facility]) Remission x 5 years Pneumonia Pneumothorax Past [...] Surgeon: Kenny Loja MD; Location: [facility]; Service: Orthopedics TOTAL HIP ARTHROPLASTY Left 2009 Allergies Allergen Reactions Abilify [Aripiprazole] Other (See Comments) convulsions Unable To Assess Patient does not take any narcotic medications Current Outpatient Medications on File Prior to [...] LUNGS TWICE A DAY 30.6 Each 1 celecoxib (CELEBREX) 200 mg Oral Capsule Take 1 Capsule by mouth 2 times daily. 60 Capsule 2 colestipoL (COLESTID) 1 gram Oral Tablet TAKE 1 TABLET BY MOUTH 2 TIMES DAILY. NEEDS AN [id number] Tablet 0 dextromethorphan-guaiFENesin (MUCINEX DM) 30-600 mg Oral Tablet Sustained Release 12 hr Take 1 Tablet by mouth every 12 hours. 20 Tablet 0 fluticasone propionate (FLONASE) 50 mcg/actuation Nasl Granite, Suspension SPRAY 1 SPRAY INTO EACH NOSTRIL EVERY DAY 32 mL 1 hydroCHLOROthiazide (MICROZIDE) 12.5 mg Oral Capsule Take 1 Capsule by mouth daily. 90 Capsule 2 losartan (COZAAR) 50 mg Oral Tablet Take 1 Tablet by mouth 2 times daily. 180 Tablet 2 montelukast (SINGULAIR) 10 mg Oral Tablet Take 1 Tablet by mouth nightly. 90 Tablet 2 Nebulizer Accessories (ALL FLOW 4000 KIT) [facility] Formulary equivalent 1 Each 0 pantoprazole (PROTONIX) 40 mg Oral Tablet, Delayed [...] needed for Erectile Dysfunction. 90 Tablet 2 tiZANidine (ZANAFLEX) 2 mg Oral Tablet TAKE [...] level: None Tobacco Use Smoking status: Never Smokeless tobacco: Current Types: Snuff Vaping Use Vaping status: Never Used Substance and Sexual Activity Alcohol use: No Drug use: No Comment: in past stated been in recovery for 6 years 2012 Social Determinants of Health Financial Resource Strain: Low Risk [...] Lack of Transportation (Non-Medical): No [facility] Family and Community Support Received from [facility], [facility] Abuse Screen Received from [facility], [facility] Housing Stability Family History Problem Relation Age of Onset Diabetes Mother Heart Disease Mother High Blood Pressure Mother High Cholesterol Mother Cancer Father 40 stomach Other (Diabetes living) Sister 1 sister passed No Known Problems Brother Diabetes Maternal Grandmother No Known Problems Maternal Grandfather Cancer Paternal Grandmother No results found. Results for orders placed or performed in visit on 01/31/24 CBC WITH DIFF Result Value Ref Range WBC 6.5 3.7 - 10.3 x10(3)/mcL RBC 4.60 4.60 - 6.10 x10(6)/mcL Hgb 14.9 13.7 - 17.5 g/dL Hct 45.6 40.0 - 51.0 % MCV 99.1 80.0 - 100.0 fL MCH 32.4 26.0 - 34.0 pg MCHC 32.7 30.7 - 35.5 g/dL RDW 12.8 <=14.9 % Platelet 178 155 - 369 x10(3)/mcL MPV 10.2 8.8 - 12.5 fL Neut Percent 69.2 % Imm Gran% 0.5 % Lymph Percent 20.8 % [place] Percent 7.7 % Eos Percent 1.2 % Baso Percent 0.6 % Neut # 4.5 1.6 - 6.1 x10(3)/mcL IMMGRAN# 0.0 0.0 - 0.1 x10(3)/mcL Lymph # 1.4 1.2 - 3.9 x10(3)/mcL [place] # 0.5 0.3 - 0.9 x10(3)/mcL Eos# 0.1 0.0 - 0.5 x10(3)/mcL Baso # 0.0 0.0 - 0.1 x10(3)/mcL LIPID SCREEN Result Value Ref Range Cholesterol 134 <200 mg/dL Triglyceride 80 <150 mg/dL HDL 45 >=40 mg/dL LDL Calculated 73 <100 mg/dL Non-HDL-C Calculated 89 <=129 mg/dL Fasting Specimen? No None TSH REFLEX Result Value Ref Range TSH Reflex 1.540 0.270 - 4.200 mcIU/mL Narrative Ingestion of john doses of biotin (>5 mg/day) taken within 8 hours of drawing blood sample can interfere with this immunoassay test. COMPREHENSIVE METABOLIC PANEL Result Value Ref Range Sodium 140 136 - 145 mmol/L Potassium 4.1 3.5 - 5.0 mmol/L Chloride 102 98 - 107 mmol/L Total CO2 26 22 - 29 mmol/L Anion Gap 12 7 - 16 mmol/L Calcium 10.0 8.6 - 10.4 mg/dL Glucose Lvl 102 (H) 70 - 99 mg/dL BUN 18 6 - 20 mg/dL Creatinine 1.05 0.67 - 1.30 mg/dL Albumin 4.4 3.5 - 5.2 gm/dL Total Protein 7.5 6.4 - 8.3 gm/dL Bili Total 0.6 0.2 - 1.4 mg/dL ALT 36 <=41 U/L AST 34 <=40 U/L Alk Phos 120 40 - 129 U/L eGFR (CKD-EPIcr 2020) 83 >=60 mL/min/1.73 m2 HEMOGLOBIN A1C Result Value Ref Range Hgb A1C 5.7 (H) 4.2 - 5.6 % Est. Avg Glucose 117 mg/dL Narrative REFERENCE RANGE: Normal: 4.0-5.6% Pre-diabetes: 5.7-6.4% Provisional diagnosis of diabetes: >6.4% Hgb F>10% and anything which shortens red cell survival, such as hemolytic anemia, or unstable hemoglobin variants such as HbSS, HbSC, or HbCC, will lower the HbA1c value associated with a given level of glycemic control. Patient Care Team: Steffanie Fulton APRN as PCP - General (Nurse Practitioner) Lab Results Component Value Date WBC 6.5 01/31/2024 HGB 14.9 01/31/2024 HCT 45.6 01/31/2024 PLT 178 01/31/2024 CHOLESTEROL 134 01/31/2024 TRIG 80 01/31/2024 HDL 45 01/31/2024 LDLCALC 73 01/31/2024 ALT 36 01/31/2024 AST 34 01/31/2024 NA 140 01/31/2024 K 4.1 01/31/2024 CL 102 01/31/2024 CREATININE 1.05 01/31/2024 BUN 18 01/31/2024 CO2 26 01/31/2024 TSH 2.140 10/14/2015 INR 0.89 10/29/2021 GLU 102 (H) 01/31/2024 HGBA1C 5.7 (H) 01/31/2024 TSHREFLEX 1.540 01/31/2024 Additional issues addressed today: Review of Systems Constitutional: Negative. Negative for fever. HENT: Negative for voice change. Eyes: Negative for redness. Cardiovascular: Negative for chest pain. Gastrointestinal: Negative for abdominal pain. Musculoskeletal: Negative for back pain. Skin: Negative for rash. Neurological: Negative for dizziness and headaches. All other systems reviewed and are negative. OBJECTIVE: Physical Exam Vitals reviewed. Constitutional: Appearance: Normal appearance. HENT: Nose: Nose normal. Mouth/Throat: Mouth: Mucous membranes are moist. Cardiovascular: Rate and Rhythm: Normal rate and regular rhythm. Pulmonary: Effort: Pulmonary effort is normal. Breath sounds: Normal breath sounds. Abdominal: General: Abdomen is flat. Bowel sounds are normal. Palpations: Abdomen is soft. Musculoskeletal: General: Normal range of motion. Cervical back: Normal range of motion. Skin: General: Skin is warm. Neurological: General: No focal deficit present. Mental Status: He is alert and oriented to person, place, and time. Psychiatric: Mood and Affect: Mood normal. Behavior: Behavior normal. Thought Content: Thought content normal. Judgment: Judgment normal. Assessment Diagnoses and all orders for this visit: Annual physical exam - CBC WITH DIFF; Future - LIPID SCREEN; Future - TSH REFLEX; Future - COMPREHENSIVE METABOLIC PANEL; Future Weight gain - AMB REFERRAL FOR BARIATRICS - buPROPion (WELLBUTRIN XL) 150 mg Oral Tablet Sustained Release 24 hr; Take 1 Tablet by mouth every morning. (Patient not taking: Reported on 02/06/2024) Dispense: 90 Tablet; Refill: 3 - HEMOGLOBIN A1C; Future - AMB REFERRAL TO CARE MANAGEMENT * Milly Dasilva - 01/31/2024 9:15 AM EDT Left antecubital. 1 mint 1 purple documented in this encounter Plan of Treatment Upcoming Encounters Date Type Department Care Team (Late st Contact Info) Description 06/28/2024 9:40 AM EST Clinical Support [facility] [address] [place] [address] 11/19/2024 1:40 PM EDT Office Visit [facility] Neurology [facility] [address] [place] [address] Lyndsay Brewer DO [address] [employer] [facility] [address] [place] [address] Scheduled Referrals Name Type Priority Associated Diagnoses Order Schedule AMB REFERRAL FOR BARIATRICS Outpatient Referral Routine Weight gain Ordered: 01/31/2024 AMB REFERRAL TO CARE MANAGEMENT Outpatient Referral Routine Weight gain Ordered: 01/31/2024 documented as of this encounter Goals Goal Patient Goal Type Associated Problems Recent Progress Patient-Stated? Author Blood Pressure < 140/90 Blood Pressure 134/84(2023 1:16 PM EST) No Yana Choi RMA Eat better, exercise, reach an ideal body weight General No Yana Choi RMA Stay Tobacco Free Lifestyle No Yana Choi RMA documented as of this encounter Procedures Procedure Name Priority Date/Time Associated Diagnosis Comments TSH REFLEX Routine 01/31/2024 9:50 AM EDT Annual physical exam CBC WITH DIFF Routine 01/31/2024 9:50 AM EDT Annual physical exam HEMOGLOBIN A1C Routine 01/31/2024 9:50 AM EDT Weight gain LIPID SCREEN Routine 01/31/2024 9:50 AM EDT Annual physical exam COMPREHENSIVE METABOLIC PANEL Routine 01/31/2024 9:50 AM EDT Annual physical exam documented in this encounter Results * (ABNORMAL) HEMOGLOBIN A1C (01/31/2024 9:50 AM EDT) [facility] Hgb A1C 5.7(H) 4.2 - 5.6 % 01/31/2024 5:04 PM EDT [employer] Est. Avg Glucose 117 mg/dL 01/31/2024 5:04 PM EDT [facility] Blood VENOUS BLOOD / Unknown Venipuncture / Unknown 01/31/2024 9:50 AM EDT 01/31/2024 9:50 AM EDT Narrative [email or web address] [facility] - 01/31/2024 5:04 PM EDT REFERENCE RANGE: Normal: 4.0-5.6% Pre-diabetes: 5.7-6.4% Provisional diagnosis of diabetes: >6.4% Hgb F>10% and anything which shortens red cell survival, such as hemolytic anemia, or unstable hemoglobin variants such as HbSS, HbSC, or HbCC, will lower the HbA1c value associated with a given level of glycemic control. ? us Steffanie Gastright REGIONAL BRANCH MANAGER CHEMISTRY ORDERABLES Final Result [employer] [address] [place] [address] , [place] [address] [facility] [address] [place] [id number] * (ABNORMAL) COMPREHENSIVE METABOLIC PANEL (01/31/2024 9:50 AM EDT) Sodium 140 136 - 145 mmol/L 01/31/2024 5:21 PM EDT [facility] Potassium 4.1 3.5 - 5.0 mmol/L 01/31/2024 5:21 PM EDT [facility] Chloride 102 98 - 107 mmol/L 01/31/2024 5:21 PM EDT [facility] Total CO2 26 22 - 29 mmol/L 01/31/2024 5:21 PM EDT [facility] Anion Gap 12 7 - 16 mmol/L 01/31/2024 5:21 PM EDT [facility] Calcium 10.0 8.6 - 10.4 mg/dL 01/31/2024 5:21 PM EDT [facility] Glucose Lvl 102(H) 70 - 99 mg/dL 01/31/2024 5:21 PM EDT [facility] BUN 18 6 - 20 mg/dL 01/31/2024 5:21 PM EDT [facility] Creatinine 1.05 0.67 - 1.30 mg/dL 01/31/2024 5:21 PM EDT [facility] Albumin 4.4 3.5 - 5.2 gm/dL 01/31/2024 5:21 PM EDT [facility] Total Protein 7.5 6.4 - 8.3 gm/dL 01/31/2024 5:21 PM EDT [facility] Bili Total 0.6 0.2 - 1.4 mg/dL 01/31/2024 5:21 PM EDT [facility] ALT 36 <=41 U/L 01/31/2024 5:21 PM EDT [facility] AST 34 <=40 U/L 01/31/2024 5:21 PM EDT [facility] Alk Phos 120 40 - 129 U/L 01/31/2024 5:21 PM EDT [facility] eGFR (CKD-EPIcr 2020) 83 >=60 mL/min/1.7 3 m2 01/31/2024 5:21 PM EDT [facility] Comment:Estimated GFR was ca lculated using the CKD-EPIcr (2020) equation refit without race. The equation is recommended by the National Kidney Foundation - [place] [employer] of Nephrology Task Force. Blood VENOUS BLOOD / Unknown Venipuncture / Unknown 01/31/2024 9:50 AM EDT 01/31/2024 9:50 AM EDT [facility] REGIONAL BRANCH MANAGER CHEMISTRY ORDERABLES Final Result Performing Organization Address [facility] de Phone Number [facility] [employer] [facility] [address] [address] , [place] [address] [facility] [address] [place] [address] * TSH REFLEX (01/31/2024 9:50 AM EDT) TSH Reflex 1.540 0.270 - 4.200 mcIU/mL 01/31/2024 5:21 PM EDT [facility] [employer] Blood VENOUS BLOOD / Unknown Venipuncture / Unknown 01/31/2024 9:50 AM EDT 01/31/2024 9:50 AM EDT Narrative [facility] [employer] - 01/31/2024 5:21 PM EDT Ingestion of john doses of biotin (>5 mg/day) taken within 8 hours of drawing blood sample can interfere with this immunoassay test. [facility] REGIONAL BRANCH MANAGER CHEMISTRY ORDERABLES Final Result Performing Organization Address [facility] Phone Number [facility] [employer] [facility] [address] [facility] [address] , [place] [address] * LIPID SCREEN (01/31/2024 9:50 AM EDT) Cholesterol 134 <200 mg/dL 01/31/2024 5:21 PM EDT [employer] Comment: < 200 ?Desirable 200 - 239 ? Borderline High >= 240 ?High Triglyceride 80 <150 mg/dL 01/31/2024 5:21 PM EDT [employer] Comment: < 150 ? Normal 150 - 199 ?Borderline High 200 - 499 ?High ??>= 500 ? Very High HDL 45 >=40 mg/dL 01/31/2024 5:21 PM EDT [facility] [place] Comment: ??> 60 ?Optimal 40 - 60 ?Acceptable ?? < 40 ?Low LDL Calculated 73 <100 mg/dL 01/31/2024 5:21 PM EDT [facility] [place] Comment: < 100 ?Optimal 100 - 129 ? Near or above optimal 130 - 159 ? Borderline High 160 - 189 ? High >= 190 ?Very High Non-HDL-C Calculated 89 <=129 mg/dL 01/31/2024 5:21 PM EDT [facility] [place] Comment: <130 ?Desirable 130-159 Above Desirable 160-189 Borderline High 190-219 High >= 220 ??Very High Fasting Specimen? No None 024 5:21 PM EDT [facility] Blood VENOUS BLOOD / Unknown Venipuncture / Unknown 01/31/2024 9:50 AM EDT 01/31/2024 9:50 AM EDT Steffanie Gastright REGIONAL BRANCH MANAGER CHEMISTRY ORDERABLES Final Result Performing Organization Address City/State/[facility] Co de Phone Number [facility] [facility] [address] [facility] [facility] [facility], [place] [address] [facility] [address] [place] [id number] * CBC WITH DIFF (01/31/2024 9:50 AM EDT) [facility] WBC 6.5 3.7 - 10.3 x10(3)/mcL 01/31/2024 4:41 PM EDT [facility] [place] RBC 4.60 4.60 - 6.10 x10(6)/mcL 01/31/2024 4:41 PM EDT [facility] [place] Hgb 14.9 13.7 - 17.5 g/dL 01/31/2024 4:41 PM EDT [facility] Hct 45.6 40.0 - 51.0 % 01/31/2024 4:41 PM EDT [facility] MCV 99.1 80.0 - 100.0 fL 01/31/2024 4:41 PM EDT [facility] MCH 32.4 26.0 - 34.0 pg 01/31/2024 4:41 PM EDT [facility] MCHC 32.7 30.7 - 35.5 g/dL 01/31/2024 4:41 PM EDT [facility] RDW 12.8 <=14.9 % 01/31/2024 4:41 PM EDT [facility] Platelet 178 155 - 369 x10(3)/mcL 01/31/2024 4:41 PM EDT [facility] MPV 10.2 8.8 - 12.5 fL 01/31/2024 4:41 PM EDT [facility] Neut Percent 69.2 % 01/31/2024 4:41 PM EDT [facility] Comment:Neutrophils equals s egs plus bands Imm Gran% 0.5 % 01/31/2024 4:41 PM EDT [facility] Comment:Automated count of m etamyelocytes, myelocytes and promyelocytes. Lymph Percent 20.8 % 01/31/2024 4:41 PM EDT [facility] [place] Percent 7.7 % 01/31/2024 4:41 PM EDT [facility] Eos Percent 1.2 % 01/31/2024 4:41 PM EDT [facility] Baso Percent 0.6 % 01/31/2024 4:41 PM EDT [facility] Neut # 4.5 1.6 - 6.1 x10(3)/mcL 01/31/2024 4:41 PM EDT [facility] Comment:Neutrophils equals s egs plus bands IMMGRAN# 0.0 0.0 - 0.1 x10(3)/mcL 01/31/2024 4:41 PM EDT [facility] Comment:Automated count of m etamyelocytes, myelocytes and promyelocytes. An absolute IG <0.1 is reported as 0.0. Lymph # 1.4 1.2 - 3.9 x10(3)/mcL 01/31/2024 4:41 PM EDT [facility] [place] # 0.5 0.3 - 0.9 x10(3)/mcL 01/31/2024 4:41 PM EDT [facility] Eos# 0.1 0.0 - 0.5 x10(3)/mcL 01/31/2024 4:41 PM EDT [facility] Baso # 0.0 0.0 - 0.1 x10(3)/mcL 01/31/2024 4:41 PM EDT [facility] Blood VENOUS BLOOD / Unknown Venipuncture / Unknown 01/31/2024 9:50 AM EDT 01/31/2024 9:50 AM EDT us Steffanie Fulton APRN HEMATOLOGY ORDERABLES Karina jonathan Result [facility], [address] , [address] [place] [phone] documented in this encounter Visit Diagnoses Diagnosis Annual physical exam- Primary Routine general medical examination at a health care facility Weight gain Abnormal weight gain documented in this encounter Discontinued Medications Medication Sig Discontinue Reason Start Date End Da te methylPREDNISolone (MEDROL DOSPACK) 4 mg Oral Tablets, Dose PackIndications:Upper respiratory tract infection, unspecified type See package instructions DELETE-Therapy completed 06/21/2023 01/31/2024 documented as of this encounter Care Teams Radiologist Diagnostic Relationship Specialty Start Date End Date Steffanie Fulton APRN [address] [place] [address] PCP - General Nurse Practitioner 07/26/21 documented as of this encounter
--- OUTSIDE RECORDS SUMMARY | 2024-05-29 15:34 | XMS_ITS | Encounter Summary ---
Author Organization [place] [address] Care Team Providers Care Search Specialist Name Role Phone Steffanie Fulton APRN Primary Care Provider +1- [phone] Reason for Visit * Reason Comments Other Shingles Encounter Details Date Type Department Care Team (Late st Contact Info) Description 02/27/2024 10:00 AM EDT Office Visit [facility] [facility] [address] [place] [phone] Zainab MariangelYOLI [address] [facility] [place] [address] Post herpetic neuralgia (Primary Dx); Herpes zoster [...] Sign Reading Time Taken Comments Blood Pressure 162/103 02/27/2024 10:08 AM EDT Pulse 86 02/27/2024 10:08 AM EDT Temperature 37.2 ??C (99 ??F) 02/27/2024 10:08 AM EDT Respiratory Rate - - Oxygen Saturation 98% 02/27/2024 10:08 AM EDT Inhaled Oxygen Concentration - - Weight 98.4 kg (217 lb) 02/27/2024 10:08 AM EDT Height 170.2 cm (5' 7 ) 02/27/2024 10:08 AM EDT Body Mass Index 33.99 02/27/2024 10:08 AM EDT documented in this encounter Functional [...] Filled Start Date End Date gabapentin (NEURONTIN) 300 mg Oral CapsuleIndications :Post herpetic neuralgia,Herpes zoster with complication Take 1 Capsule by mouth 3 times daily. 90 Capsule 02/27/2024 4 documented in this encounter Progress Notes * Mariangel Lamb, YOLI - 02/27/2024 10:00 AM EDT Vitals: 02/27/24 1008 BP: (!) 162/103 Pulse: 86 Temp: 99 ??F (37.2 ??C) TempSrc: Temporal SpO2: 98% Weight: 217 lb (98.4 kg) Height: 5' 7 (1.702 m) Body mass index is 33.99 kg/m??. SUBJECTIVE: Chief Complaint Patient presents with ??? Other Shingles HPI: Patient c/o shingles, patient states that he has had them x10 days but he keeps having new one comeup on the body. Hurts to touch. It feels like it is asleep without the tingling. [place] and itches. Patient states that the steroids are the only thing helping the pain. He took the last dose of steroids this morning. Ice packs have helped. When he gets in the sun it worsens the burning sensation. His daughter is and he is avoiding her. Review of Systems Denies: fever, chills, nausea, emesis, diarrhea, chest pain, sob, dark or bloody stools, urinary symptoms, OBJECTIVE: Physical Exam Constitutional: Appearance: Normal appearance. HENT: Head: Normocephalic and atraumatic. Cardiovascular: Rate and Rhythm: Normal rate and regular rhythm. Pulses: Normal pulses. Heart sounds: Normal heart sounds. Pulmonary: Effort: Pulmonary effort is normal. Breath sounds: Normal breath sounds. Skin: General: Skin is warm and dry. Findings: Rash (very mild amount of new lesions. no open oozing. some scabbing along the right neckand occipital, none around the eye) present. Neurological: Mental Status: He is alert and oriented to person, place, and time. Psychiatric: Mood and Affect: Mood normal. Assessment Diagnoses and all orders for this visit: Post herpetic neuralgia - gabapentin (NEURONTIN) 300 mg Oral Capsule; Take 1 Capsule by mouth 3 times daily. Dispense: 90 Capsule; Refill: 0 Herpes zoster with complication - gabapentin (NEURONTIN) 300 mg Oral Capsule; Take 1 Capsule by mouth 3 times daily. Dispense: 90 Capsule; Refill: 0 documented in this encounter Miscellaneous Notes * Patient Instructions - Genna Day MA - 02/27/2024 10:00 AM EDT You may be contacted by [...] AM EST Clinical Support [facility] [place] [address] [place] [address] 11/19/2024 1:40 PM EDT Office Visit [facility] [address] [place] [phone] Lyndsay Brewer DO [address] [place] [address] documented as of this encounter Goals Goal [...] zoster with complication documented in this encounter Discontinued Medications Medication Sig Discontinue Reason Start Date End Da te predniSONE (DELTASONE) 10 mg Oral TabletIndications:Herpes zoster without complication 3 times a day x 4 days, 2 times a day x 4 days, once a day x 4 days DELETE-Therapy completed 02/19/2024 02/27/2024 documented as of this encounter Care Teams Search Specialist Relationship Specialty Start Date End Date Steffanie Fulton APRN [address] [place] [address] PCP - General Nurse Practitioner 07/26/21 documented as of this encounter
--- OUTSIDE RECORDS SUMMARY | 2024-05-29 15:34 | XMS_ITS | Encounter Summary ---
Author Organization [place] [address] Care Team Providers Care Test Deskman Name Role Phone Steffanie Fulton APRN Primary Care Provider +1- [phone] Reason for Visit * Reason Comments Foot Pain B/L Encounter Details Date Type Department Care Team (Late st Contact Info) Description 02/12/2024 2:45 PM EDT Office Visit [facility] [place] [address] [place] [facility] [address] [place] [phone] Arvin Walton DPM [address] [place] [address] [facility] [address] [place], [place] [id number] Acute bilateral ankle pain [M25.571, M25.572] (Primary Dx); Osteoarthritis of right ankle and foot; Osteoarthritis of left ankle and foot; Capsulitis of foot; Foot pain, right; Foot pain, left Social History Tobacco Use Types Packs/Day Years [...] Pressure - - Pulse - - Temperature 36.5 ??C (97.7 ??F) 02/12/2024 3:14 PM ED T Respiratory Rate - - Oxygen Saturation - - Inhaled Oxygen Concentration - - Weight 98.7 kg (217 lb 9.6 oz) 02/12/2024 3:14 P M EDT Height 170.2 cm (5' 7 ) 02/12/2024 3:14 PM EDT Body Mass Index 34.08 02/12/2024 3:14 PM EDT documented in this encounter Functional Status * Is the person deaf or does he/she have serious difficulty hearing? Answer Date of Assessment Author No 11/29/2023 9:28 AM ADITYAT Haylie Krishnan MA * Is the person blind or does he/she have serious difficulty seeing even when wearing glasses? Answer Date of Assessment Author No 11/29/2023 9:28 AM ADTIYAT Haylie Krishnan MA * Does this person have serious difficulty walking or climbing stairs? Answer Date of Assessment Author No 11/29/2023 9:28 AM ADITYAT Haylie Krishnan MA * Does this person have difficulty dressing or bathing? Answer Date of Assessment Author No 11/29/2023 9:28 AM ADITYAT Haylie Krishnan MA * Because of a physical, mental or emotional condition, does this person have difficulty doing errands alone such as visiting a doctor's office or shopping? Answer Date of Assessment Author No 11/29/2023 9:28 AM Haylie Powell MA documented as of this encounter Mental Status * Because of a physical, mental or emotional condition, does this person have serious difficulty concentrating, remembering or making decisions? Answer Entry Date Author No 11/29/2023 9:28 AM EDT Haylie Krishnan ROGER documented in this encounter Progress Notes * Arvin Walton DPM - 02/12/2024 2:45 PM EDT [facility] Podiatric Surgery Outpatient Progress Note Name: Zuhair Clayton Primary Care Physician: Steffanie Fulton APRN Chief Complaint: Chief Complaint Patient presents with Foot Pain B/L History of Presenting Illness: Zuhair Clayton is a(n) 58 y.o. male who presents the office for new onset bilateral ankle pain. He notes that this has been going on for the last several weeks. Denies trauma or injury. Noredness or bruising. Worse towards the end of the day. Has knee surgery upcoming. No open wounds orulcers. Denies any nausea fever or chills. Medications: Outpatient Medications Marked as Taking for the 02/12/24 encounter (Office Visit) with Arvin Walton DPM Medication Sig Dispense Refill albuterol (PROVENTIL HFA;VENTOLIN [...] Tablet by mouth nightly. 90 Tablet 2 budesonide-formoteroL (SYMBICORT) 160-4.5 mcg/actuation Inhl HFA Aerosol Inhaler INHALE 2 PUFFS INTO THE LUNGS TWICE A DAY 30.6 Each 1 celecoxib (CELEBREX) 200 mg Oral Capsule Take 1 Capsule by mouth 2 times daily. 60 Capsule 2 colestipoL (COLESTID) 1 gram Oral Tablet TAKE 1 TABLET BY MOUTH 2 TIMES DAILY. NEEDS AN [id number] Tablet 0 diclofenac (VOLTAREN) 1 % Top Gel APPLY 2 GRAMS TOPICALLY 4 TIMES DAILY DIRECTED. 100 g 1 hydroCHLOROthiazide (MICROZIDE) 12.5 mg Oral Capsule Take 1 Capsule by mouth daily. 90 Capsule 2 losartan (COZAAR) 50 mg Oral Tablet Take 1 Tablet by mouth 2 times daily. 180 Tablet 2 montelukast (SINGULAIR) 10 mg Oral Tablet Take 1 Tablet by mouth nightly. 90 Tablet 2 Nebulizer Accessories (ALL FLOW 4000 KIT) [facility] Formulary equivalent 1 Each 0 pantoprazole (PROTONIX) 40 mg Oral Tablet, Delayed Release (E.C.) Take 1 Tablet by mouth daily. 90 Tablet 3 tadalafiL (CIALIS) 5 mg Oral Tablet Take 1 Tablet by mouth as needed for Erectile Dysfunction. (Patient taking differently: Take 5 mg by mouth daily.) 90 Tablet 2 tamsulosin (FLOMAX) 0.4 mg Oral Capsule TAKE 2 CAPSULES BY MOUTH EVERY DAY AT NIGHT 180 Capsule 0 tamsulosin (FLOMAX) 0.4 mg Oral Capsule Take 1 Capsule by mouth nightly. 180 Capsule 0 tiZANidine (ZANAFLEX) 2 mg Oral Tablet TAKE 1 TABLET BY MOUTH THREE TIMES A DAY 270 Tablet 0 Current Facility-Administered Medications for the 02/12/24 encounter (Office Visit) with Arvin Walton DPM Medication Dose Route Frequency Provider Last Rate Last Admin bupivacaine HCl (MARCAINE) 0.5 % (5 mg/mL) injection 2 mL 2 mL Intra-articular Augie Ramires MD 2 mL at 08/16/21 0987 Allergies Allergen Reactions Abilify [Aripiprazole] Other (See Comments) convulsions Unable To Assess Patient does not take any narcotic medications Past Medical History: Diagnosis Date Arthritis Asthma [...] JOINT EXCISION; Surgeon: Kenny Loja MD; Location: [facility]; Service: Orthopedics TOTAL HIP ARTHROPLASTY Left 2009 Family History Problem Relation Age of Onset Diabetes Mother Heart Disease Mother High Blood Pressure Mother High Cholesterol Mother Cancer Father 40 stomach Other (Diabetes living) Sister 1 sister passed No Known Problems Brother Diabetes Maternal Grandmother No Known Problems Maternal Grandfather Cancer Paternal Grandmother Social History: Zuhair's social history reviewed: Social History Socioeconomic History Marital status: Legally [...] Lack of Transportation (Non-Medical): No [facility] Family and Community Support [facility] from [facility] Abuse Screen Received from [facility], [facility] Housing Stability Review of Systems: The following systems were reviewed and revealed the following in addition to any already discussedin the HPI: Constitutional: Age appropriate, denies F/C/N/V/SOB HENT: NEG: difficulty swallowing Respiratory: NEG: shortness of breath and chest pain Cardiovascular: NEG: syncope and chest pain Gastrointestinal: NEG: nausea and vomiting Musculoskeletal: Negative except per physical exam Integumentary: NEG: bruising, chronic wound and lacerations Hematology / Lymphatics: NEG: bruises and bleeding problems Psychiatric: Mood/affect appropriate Physical Examination: Vital Signs: Temp 97.7 ??F (36.5 ??C) (Forehead) Ht 5' 7 (1.702 m) Wt 217 lb 9.6 oz (98.7 kg) BMI 34.08 kg/m?? General: Zuhair appears in no acute distress Skin: warm, dry, and intact Head: Normocephalic, without obvious abnormality, atraumatic Lungs: Breathing unlabored Neurological: sensation grossly normal. LE exam separate. Extremities/Musculoskeletal: See Exam Lower Extremity Exam: Constitutional The patient is awake, alert, well developed, well-nourished and well groomed. No acute distress. Cardiovascular DP pulses are 2/4 bilateral and PT pulses are 2/4 bilateral. CFT <3 seconds to digits 1-5 bilateral. Edema noted to bilateral ankles. Calor is absent. No ischemia or necrosis. Neurologic Sensation intact to light touch and 5.07/10g [place] Parveen monofilament bilateral. Dermatologic Integument is dry, supple bilateral. Ecchymosis is absent. Erythema is absent. No palpable subcutaneous masses bilateral foot. Musculoskeletal Pain with palpation noted to the anterior ankles and respective joint capsule bilaterally. There isalso some tenderness noted to the dorsal talonavicular joint. Antalgic gait. Assisted with prefabricated orthotics. Assessment: Zuhair Clayton was seen today for Chief Complaint Patient presents with Foot Pain B/L . Zuhair Clayton was seen today for foot pain. 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 Discussed clinical findings and possible etiologies of patient's symptoms. - We discussed treatment options. Patient will continue his current Celebrex regimen. Reviewed indication risk and benefits. We did discuss the utility of a corticosteroid injection but will hold offwith upcoming knee surgery. Patient was also fitted for bilateral lace up ASO ankle braces to provide stability/range of motion control and to improve pain. These were fitted and dispensed today. - RICE therapy. - All of patient's questions, comments and concerns were addressed. Patient agreeable to plan. Patient to follow-up in 3-4 weeks, or sooner as needed. Arvin Walton DPM 02/12/2024 Disclaimer - This note was completed using voice recognition software and manual typing. It may contain unintended words, typos, etc. despite my review of the draft note prior to final signature. Please do not hesitate to contact me through the hospital paging system if there are questions or concerns. documented in this encounter Plan of Treatment Upcoming Encounters Date Type Department Care Team (Late st Contact Info) Description 06/28/2024 9:40 AM EST Clinical Support [facility] [place] [address] [place] [phone] 11/19/2024 1:40 PM EDT Office Visit [facility] Neurology [facility] [address] [place] [address] Lyndsay Brewer DO [address] [place] [address] documented as of this encounter Goals Goal Patient Goal Type Associated Problems Recent Progress Patient-Stated? 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
--- OUTSIDE RECORDS SUMMARY | 2024-05-29 15:34 | XMS_ITS | Encounter Summary ---
Author Organization [place] [address] Care Team Providers Care Yard Clerk Name Role Phone YolandaSteffanie devine YOLI Primary Care Provider +1- [phone] Encounter Details Date Type Department Care Team (Late st Contact Info) Description 03/08/2024 1:45 PM EDT Office Visit [facility] [place] [facility] [address] [place] [address] Deanna Diaz APRN [address] [place], [place] [phone] Post herpetic neuralgia; Herpes zoster without complication [...] Sign Reading Time Taken Comments Blood Pressure 166/98 03/08/2024 1:51 PM EDT Pulse 90 03/08/2024 1:51 PM EDT Temperature 37.7 ??C (99.9 ??F) 03/08/2024 1:51 PM ED T Respiratory Rate - - Oxygen Saturation 97% 03/08/2024 1:51 PM EDT Inhaled Oxygen Concentration - - Weight 101.2 kg (223 lb) 03/08/2024 1:51 PM EDT Height 170.2 cm (5' 7 ) 03/08/2024 1:51 PM EDT Body Mass Index 34.93 03/08/2024 1:51 PM EDT documented in this encounter Functional [...] Haylie Krishnan MA documented in this encounter Progress Notes * Deanna Diaz, REFRIGERATION SYSTEMS INSTALLER - 03/08/2024 1:45 PM EDT Vitals: 03/08/24 1351 BP: (!) 166/98 Pulse: 90 Temp: 99.9 ??F (37.7 ??C) TempSrc: Temporal SpO2: 97% Weight: 223 lb (101.2 kg) Height: 5' 7 (1.702 m) Body mass index is 34.93 kg/m??. SUBJECTIVE: No chief complaint on file. HPI: Pt is in office for nerve damage caused by shingles [id number]. Has been using icy hot helps but he's been using it more then the directions say. Reviewed Dejon, pt reports he picked up the 600mg rx, although not reported on Dejon, has been taking it BID, was written for QD #30 so will run out. Picked up the 300mg rx on 02-27-24. If taking 2 tabs Bid should have about 12 days remaining. Will run out of medication in about 2 and a half weeks. Still having a lot of post herpatic neuralgia. The initial rash has mostly cleared no weaping lesions, but still very red inflamed. Review of Systems Constitutional: Negative for fever. [...] warm and dry. Comments: Right side of neck diffuse erythema. Neurological: Mental Status: He is alert. Mental status is at baseline. Psychiatric: Mood and Affect: Mood normal. Behavior: Behavior normal. Thought Content: Thought content normal. Assessment Diagnoses and all orders for this visit: Post herpetic neuralgia Comments: Increase gabapentin dosage slowly Should have enough medication for another 2 and a half weeks. Will call for refill if he still needs it after he runs out. Herpes zoster without complication documented in this encounter Plan of Treatment Upcoming Encounters Date Type Department Care Team (Late st Contact Info) Description 06/28/2024 9:40 AM EST Clinical Support [facility] [place] [facility] [address] [place] [phone] 11/19/2024 1:40 PM EDT Office Visit [facility] Neurology [facility] [address] [place] [place] [address] Lyndsay Brewer DO [address] [place] [address] documented as of this encounter [...] complication documented in this encounter Care Teams Yard Clerk Relationship Specialty Start Date End Date Steffanie Fulton APRN [address] [place] [address] PCP - General Nurse Practitioner 07/26/21 documented as of this encounter
--- OUTSIDE RECORDS SUMMARY | 2024-05-29 15:34 | XMS_ITS | Encounter Summary ---
Author Organization [facility] [place] [address] Care Team Providers Care Contractor Field Hauling Name Role Phone Steffanie Fulton APRN Primary Care Provider +1- [phone] Encounter Details Date Type Department Care Team (Latest Contact Info) Description 02/19/2024 Travel Social History Tobacco Use Types Packs/Day [...] No 11/29/2023 9:28 AM EDT RejiHaylie tse MA * Is the person blind or [...] Date Author No 11/29/2023 9:28 AM EDT RejiHaylie tse MA documented in this encounter Plan of Treatment Upcoming Encounters Date Type Department Care Team (Late st Contact Info) Description 06/28/2024 9:40 AM EST Clinical Support [facility] [place] [address] [place] [phone] 11/19/2024 1:40 PM EDT Office Visit [facility] Neurology [facility] [address] [place] [phone] Lyndsay Brewer DO [address] [place] [address] documented as of this encounter [...] Diagnoses Not on filedocumented in this encounter Additional Health Concerns Infection Onset Date Last Indicated Resolved Time INFLUENZA 02/06/2024 02/06/2024 02/20/2024 10:1 2 PM EDT documented as of this encounter Care Teams Contractor Field Hauling Relationship Specialty Start Date End Date Steffanie Fulton APRN [address] [place] [address] PCP - General Nurse Practitioner 07/26/21 documented as of this encounter
--- OUTSIDE RECORDS SUMMARY | 2024-05-29 15:34 | XMS_ITS | Encounter Summary ---
Author Organization [place] [address] Care Team Providers Care Gas And Oil Servicer Name Role Phone Steffanie Fulton APRN Primary Care Provider +1- [phone],WHIT Unavailable Unavailabl e Reason for Visit * Reason Onset Date Comments CM- Telephonic Outreach 02/02/2024 Encounter Details Date Type Department Care Team (Late st Contact Info) Description 02/02/2024 Patient Outreach [facility] Care Managment [address] Appointment [place] [address] Selene Dowling, YOLANDA,LD CM- Telephonic Outreach Social History Tobacco Use Types Packs/Day Years [...] Assessment Author No 11/29/2023 9:28 AM EDT [facility] [place] * Is the person blind or does he/she have serious difficulty seeing even when wearing glasses? Answer Date of Assessment Author No 11/29/2023 9:28 AM EDT [facility] [place] * Does this person have serious difficulty walking or climbing stairs? Answer Date of Assessment Author No 11/29/2023 9:28 AM EDT [facility] [place] * Does this person have difficulty dressing or bathing? Answer Date of Assessment Author No 11/29/2023 9:28 AM EDT [place], [place] * Because of a physical, mental or emotional condition, does this person have difficulty doing errands alone such as visiting a doctor's office or shopping? Answer Date of Assessment Author No 11/29/2023 9:28 AM EDT [facility] [place], [place] documented as of this encounter Mental Status * Because of a physical, mental or emotional condition, does this person have serious difficulty concentrating, remembering or making decisions? Answer Entry Date Author No 11/29/2023 9:28 AM EDT [facility] [place] documented in this encounter Progress Notes * Selene Dowling RD, LD - 02/02/2024 8:26 AM EDT Care Management Patient Outreach Attempted to contact patient regarding a dietitian referral Outcome: Patient did not answer HIPAA compliant voicemail left Message was sent via MollyWatr documented in this encounter Plan of Treatment Upcoming Encounters Date Type Department Care Team (Late st Contact Info) Description 06/28/2024 9:40 AM EST Clinical Support [facility] [facility] [address] [place] [phone] 11/19/2024 1:40 PM EDT Office Visit [facility] Neurology [facility] [address] [place] [phone] [place]man Lyndsay Polina, DO [address] [place] [address] documented as of this encounter [...] on filedocumented in this encounter Care Teams Gas And Oil Servicer Relationship Specialty Start Date End Date Steffanie Fulton APRN [address] [place] [address] PCP - General Nurse Practitioner 07/26/[address],LD Dietitian 02/02/24 02/02/24 documented as of this encounter
--- OUTSIDE RECORDS SUMMARY | 2024-05-29 15:34 | XMS_ITS | Encounter Summary ---
Author Organization [place] [address] Care Team Providers Care Inspector Weights And Measures Name Role Phone Steffanie Fulton APRN Primary Care Provider +1- [phone] Reason for Referral * MRI/CAT Scan (Routine) - Pending Review Specialty Diagnoses / Procedures Referred By Marilyac t Referred To Contact Radiology Diagnoses Right knee pain, unspecified chronicity Procedures CT LOWER EXTREMITY RIGHT WO CONTRAST Arvin Pennington MD [address] [place] [address] Phone: tel: fax: Referral ID Status Reason Start Date Expiration Date V isits Requested Visits Authorized [id number] Pending Review 01/31/2024 01/30/2025 1 1 Reason for Visit * MRI/CAT Scan (Routine) - Pending Review Specialty Diagnoses / Procedures Referred By Gus kunz Referred To Contact Radiology Diagnoses Right knee pain, unspecified chronicity Procedures CT LOWER EXTREMITY RIGHT WO CONTRAST Arvin Pennington MD [address] [place] [id number] Phone: tel: fax: Referral ID Status Reason Start Date Expiration Date V isits Requested Visits Authorized [id number] Pending Review 01/31/2024 01/30/2025 1 1 Encounter Details Date Type Department Care Team (Late st Contact Info) Description 02/14/2024 2:19 PM EDT - 02/14/2024 11:59 PM EDT Hospital Encounter [facility] [place] [facility] [address] [place] [address] Arvin Pennington MD [address] [place] [address] Right knee pain, unspecified chronicity Discharge Disposition: Home or Self Care Social [...] Assessment Author No 11/29/2023 9:28 AM EDT EulogioHaylie MA * Does this person have difficulty dressing or bathing? Answer Date of Assessment Author No 11/29/2023 9:28 AM EDT Eulogio Haylie ROGER * Because of a physical, mental or emotional condition, does this person have difficulty doing errands alone such as visiting a doctor's office or shopping? Answer Date of Assessment Author No 11/29/2023 9:28 AM EDAg Eulogio HaylieROGER documented as of this encounter Mental Status * Because of a physical, mental or emotional condition, does this person have serious difficulty concentrating, remembering or making decisions? Answer Entry Date Author No 11/29/2023 9:28 AM SIDNEY Eulogio HaylieROGER documented in this encounter Medications at Time [...] 4 fluticasone propionate (FLONASE) 50 mcg/actuation Nasl Pax, SuspensionIndicatio ns:Moderate persistent asthma, uncomplicated SPRAY 1 [...] 4 Nebulizer Accessories (ALL FLOW 4000 KIT) [facility] [place] 1 Each 0 3 [...] Wheezing. 1 Each 2 4 04/08/20 24 benzonatate (TESSALON) 200 mg Oral CapsuleIndications: Cough, unspecified type,Influenza B Take 1 Capsule by mouth 3 times daily as needed for Cough for up to 10 days. 30 Capsule 4 02/16/20 24 budesonide-formoter oL (SYMBICORT) 160-4.5 mcg/actuation Inhl HFA Aerosol InhalerIndications: History of asthma INHALE 2 PUFFS INTO THE LUNGS TWICE A DAY 30.6 Each 1 4 05/09/20 24 celecoxib (CELEBREX) 200 mg Oral CapsuleIndications: Generalized osteoarthritis of multiple sites Take 1 Capsule by mouth 2 times daily. 60 Capsule 2 3 04/29/20 24 tamsulosin (FLOMAX) 0.4 mg Oral CapsuleIndications: BPH without urinary obstruction TAKE 2 CAPSULES BY MOUTH EVERY DAY AT NIGHT 180 Capsule 4 05/03/20 24 documented as of this encounter Discharge Disposition Disposition Code Departure Means Destination Home or Self Care documented in this encounter Plan of Treatment Upcoming Encounters Date Type Department Care Team (Late st Contact Info) Description 06/28/2024 9:40 AM EST Clinical Support [facility] [place] [address] [place] [address] 11/19/2024 1:40 PM EDT Office Visit [facility] [address] [place] [address] Lyndsay Brewer DO [address] [place] [address] documented as of this encounter [...] Procedure Name Priority Date/Time Associated Diagnosis Comments CT LOWER EXTREMITY RIGHT WO CONTRAST Routine 02/14/2024 2:32 PM EDT Right knee pain, unspecified chronicity documented in this encounter Results * CT LOWER EXTREMITY RIGHT WO CONTRAST (02/14/2024 2:32 PM EDT) Anatomical Region Laterality Modality Leg Computed Tomogra phy 02/14/2024 2:32 PM EDT Impressions 02/14/2024 3:26 PM EDT End-stage right knee osteoarthritis with large effusion. - Note: Radiology results need to be interpreted within a comprehensive clinical context. ??If you have questions about the radiology report, please contact the office of the ordering clinician. Narrative 02/14/2024 3:[address] LOWER EXTREMITY RIGHT WO CONTRAST, ??02/14/2024 2:32 PM ?? CLINICAL HISTORY: ??M25.561-Pain in right [id number] COMPARISON: ??None. PROCEDURE COMMENTS: Noncontrast multidetector CT of the right knee with multiplanar reconstructions per ordered protocol. ?? Dose 1 : CT DLP Total : 25.4 mGycm DLP Spiral Max : 25.4 mGycm Maximum CTDI Vol : 1.1 mGy FINDINGS: BONES & JOINTS: Status post ACL reconstruction with metallic anchors in the femoral and tibial tunnels. Advanced/end-stage tricompartmental right knee osteoarthritis. Zhnx-ki-cpev joint space narrowing, subchondral sclerosis, and osteophytosis present. No acute fracture or malalignment. Advanced proximal tibiofibular joint osteoarthritis also present. 1 cm ossified body regional to the proximal MCL. Large effusion. Left tibial shaft fracture deformity and ORIF intramedullary fixation changes noted on the topogram. SOFT TISSUES: Intact CT appearance of the extensor mechanism. Postsurgical changes of prior bone-patellar tendon bone ACL graft harvesting. --- Procedure Note Vincenzo Garcia MD - 02/14/2024 CT LOWER EXTREMITY RIGHT WO CONTRAST, 02/14/2024 2:32 PM CLINICAL HISTORY: M25.561-Pain in right [id number]-CM COMPARISON: None. PROCEDURE COMMENTS: Noncontrast multidetector CT of the right knee with multiplanar reconstructions per ordered protocol. Dose 1 : CT DLP Total : 25.4 mGycm DLP Spiral Max : 25.4 mGycm Maximum CTDI Vol : 1.1 mGy FINDINGS: BONES & JOINTS: Status post ACL reconstruction with metallic anchors inthe femoral and tibial tunnels. Advanced/end-stage tricompartmental rightknee osteoarthritis. Zlkh-yo-pxbb joint space narrowing, subchondral sclerosis,and osteophytosis present. No acute fracture or malalignment. Advancedproximal tibiofibular joint osteoarthritis also present. 1 cm ossified bodyregional to the proximal MCL. Large effusion. Left tibial shaft fracture deformity and ORIF intramedullary fixationchanges noted on the topogram. SOFT TISSUES: Intact CT appearance of the extensor mechanism.Postsurgical changes of prior bone-patellar tendon bone ACL graft harvesting. --- IMPRESSION: End-stage right knee osteoarthritis with large effusion. - Note: Radiology results need to be interpreted within a comprehensiveclinical context. If you have questions about the radiology report, please contactthe office of the ordering clinician. us Arvin Pennington MD IMG CT ORDERABLES Final Resul t documented in this encounter Visit Diagnoses Diagnosis Right knee pain, unspecified chronicity documented in this encounter Additional Health Concerns Infection Onset Date Last Indicated Resolved Time INFLUENZA 02/06/2024 02/06/2024 02/20/2024 10:1 2 PM EDT documented as of this encounter Care Teams Inspector Weights And Measures Relationship Specialty Start Date End Date Steffanie Fulton APRN [address] [place] [address] PCP - General Nurse Practitioner 07/26/21 documented as of this encounter
--- OUTSIDE RECORDS SUMMARY | 2024-05-29 15:34 | XMS_ITS | Encounter Summary ---
Author Organization [facility] [place] [address] Care Team Providers Care Mechanical Applications Engineer Name Role Phone Steffanie Fulton APRN Primary Care Provider +1- [phone] Encounter Details Date Type Department Care Team (Latest Contact Info) Description 02/18/2024 Travel Social History Tobacco Use Types Packs/Day [...] AM EST Clinical Support [facility] [place] [address] [place] [address] 11/19/2024 1:40 PM EDT Office Visit [facility] [address] [place] [id number] Lyndsay Brewer DO [address] [place] [address] documented as of this encounter [...] documented as of this encounter Care Teams Mechanical Applications Engineer Relationship Specialty Start Date End Date Steffanie Fulton APRN [address] [place] [address] PCP - General Nurse Practitioner 07/26/21 documented as of this encounter
--- OUTSIDE RECORDS SUMMARY | 2024-05-29 15:34 | XMS_ITS | Encounter Summary ---
Author Organization [facility] [place] [address] Care Team Providers Care Surveyor Hydrographic Name Role Phone Steffanie Fulton APRN Primary Care Provider +1- [phone] Reason for Visit * Reason Onset Date Comments Referral 01/31/2024 Encounter Details Date Type Department Care Team (Late st Contact Info) Description 01/31/2024 Patient Outreach [facility] [address] Appointment Location May Differ [place] [id number] Siri Nieto BA, COS Referral Social History Tobacco Use Types Packs/Day [...] No 11/29/2023 9:28 AM EDT Haylie Krishnan [place] * Is the person blind or does he/she have serious difficulty seeing even when wearing glasses? Answer Date of Assessment Author No 11/29/2023 9:28 AM EDT Haylie Krishnan [place] * Does this person have serious difficulty walking or climbing stairs? Answer Date of Assessment Author No 11/29/2023 9:28 AM EDT Rejicarmencita Haylie [place] * Does this person have difficulty dressing or bathing? Answer Date of Assessment Author No 11/29/2023 9:28 AM EDT Eulogio Haylie [place] * Because of a physical, mental or emotional condition, does this person have difficulty doing errands alone such as visiting a doctor's office or shopping? Answer Date of Assessment Author No 11/29/2023 9:28 AM EDT RejiHaylie tse [place] documented as of this encounter Mental Status * Because of a physical, mental or emotional condition, does this person have serious difficulty concentrating, remembering or making decisions? Answer Entry Date Author No 11/29/2023 9:28 AM EDT RejiHaylie tse [place] documented in this encounter Progress Notes * Siri Nieto BA, COS - 01/31/2024 9:50 AM EDT Tool Clerk Management Referral Request Referral received from: Steffanie Fulton APRN Referral Reason: Dietitian Referral note: General Healthy Diet Assigned to: Selene Dowling RD, LD documented in this encounter Plan of Treatment Upcoming Encounters Date Type Department Care Team (Late st Contact Info) Description 06/28/2024 9:40 AM EST Clinical Support [facility] [place] [facility] [address] [place] [address] [place] [address] 11/19/2024 1:40 PM EDT Office Visit [facility] [address] [place] [address] Lyndsay Brewer, [address] [place] [address] documented as of this encounter [...] on filedocumented in this encounter Care Teams Surveyor Hydrographic Relationship Specialty Start Date End Date Steffanie Fulton APRN [address] [place] [address] PCP - General Nurse Practitioner 07/26/21 documented as of this encounter
--- OUTSIDE RECORDS SUMMARY | 2024-05-29 15:34 | XMS_ITS | Encounter Summary ---
Author Organization [place] [address] Care Team Providers Care Solar Energy Consultant And Designer Name Role Phone Steffanie Fulton APRN Primary Care Provider +1- [phone] Reason for Visit * Reason Comments Generalized Body Aches Encounter Details Date Type Department Care Team (Late st Contact Info) Description 02/06/2024 9:45 AM EDT Office Visit [facility] [place] [facility] [address] [place] [phone] Shaheed Riley, DO [email or web address] [facility] [place] [address] Cough, unspecified type (Primary Dx); Influenza B; Bilateral thumb pain; Foot tendinitis Social History Tobacco Use Types Packs/Day Years Used Date Smoking Tobacco: Never Smokeless Tobacco: Current Snuff Tobacco Cessation:Ready [...] Reading Time Taken Comments Blood Pressure 140/84 02/06/2024 9:48 AM EDT Pulse 76 02/06/2024 9:48 AM EDT Temperature 36.9 ??C (98.5 ??F) 02/06/2024 9:48 AM ED T Respiratory Rate - - Oxygen Saturation 98% 02/06/2024 9:48 AM EDT Inhaled Oxygen Concentration - - Weight 98.9 kg (218 lb) 02/06/2024 9:48 AM EDT Height 170.2 cm (5' 7 ) 02/06/2024 9:48 AM EDT Body Mass Index 34.14 02/06/2024 9:48 AM EDT documented in this encounter [...] Refills Last Filled Start Date End Date diclofenac (VOLTAREN) 1 % Top GelIndications:Bi lateral thumb pain,Foot tendinitis APPLY 2 GRAMS TOPICALLY 4 TIMES DAILY DIRECTED. 100 g 1 02/06/2024 methylPREDNISolon e (MEDROL DOSPACK) 4 mg Oral Tablets, Dose PackIndications:C ough, unspecified type,Influenza B See package instructions 21 Tablet 02/06/2024 4 benzonatate (TESSALON) 200 mg Oral CapsuleIndication s:Cough, unspecified type,Influenza B Take 1 Capsule by mouth 3 times daily as needed for Cough for up to 10 days. 30 Capsule 02/06/2024 4 oseltamivir (TAMIFLU) 75 mg Oral CapsuleIndication s:Cough, unspecified type,Influenza B Take 1 Capsule by mouth 2 times daily for 5 days. 10 Capsule 02/06/2024 4 documented in this encounter Progress Notes * Shaheed Riley, - 02/06/2024 9:45 AM EDT Diagnoses and all orders for this visit: Cough, unspecified type - POCT JOSIE SARS ANTIGEN - POCT JOSIE INFLUENZA A/B - oseltamivir (TAMIFLU) 75 mg Oral Capsule; Take 1 Capsule by mouth 2 times daily for 5 days. Dispense: 10 Capsule; Refill: 0 - benzonatate (TESSALON) 200 mg Oral Capsule; Take 1 Capsule by mouth 3 times daily as needed for Cough for up to 10 days. Dispense: 30 Capsule; Refill: 0 - methylPREDNISolone (MEDROL DOSPACK) 4 mg Oral Tablets, Dose Pack; See package instructions Dispense: 21 Tablet; Refill: 0 Influenza B - oseltamivir (TAMIFLU) 75 mg Oral Capsule; Take 1 Capsule by mouth 2 times daily for 5 days. Dispense: 10 Capsule; Refill: 0 - benzonatate (TESSALON) 200 mg Oral Capsule; Take 1 Capsule by mouth 3 times daily as needed for Cough for up to 10 days. Dispense: 30 Capsule; Refill: 0 - methylPREDNISolone (MEDROL DOSPACK) 4 mg Oral Tablets, Dose Pack; See package instructions Dispense: 21 Tablet; Refill: 0 Bilateral thumb pain - diclofenac (VOLTAREN) 1 % Top Gel; APPLY 2 GRAMS TOPICALLY 4 TIMES DAILY DIRECTED. Dispense: 100 g; Refill: 1 Foot tendinitis - diclofenac (VOLTAREN) 1 % Top Gel; APPLY 2 GRAMS TOPICALLY 4 TIMES DAILY DIRECTED. Dispense: 100 g; Refill: 1 There are no Patient Instructions on file for this visit. No follow-ups on file. Subjective Chief Complaint Patient presents with ??? Generalized Body Aches HPI C/o chills, body aches, wheezing x a few days. Has been taking tylenol. Patient Active Problem List Diagnosis ??? Hip pain, left ??? Essential hypertension ??? Eczema ??? OA (osteoarthritis) ??? Asthma ??? EPHRAIM (generalized anxiety disorder) ??? BPH with urinary obstruction ??? Status post left hip replacement ??? Irritable bowel syndrome with diarrhea ??? 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 Rectal bleeding ??? Diarrhea ??? Polyp of colon ??? COVID-19 ??? COPD, moderate (HCC) ??? Nodule of right lung ??? Acute interstitial pneumonia (HCC) ??? Community acquired pneumonia Current Outpatient Medications on File Prior to Visit Medication Sig Dispense Refill ??? albuterol (PROVENTIL HFA;VENTOLIN HFA) 90 mcg/actuation Inhl HFA Aerosol Inhaler Inhale 2 Puffsinto the lungs every 4 hours as needed for Wheezing. 1 Each 2 ??? albuterol (PROVENTIL) 2.5 mg /3 mL (0.083 %) Inhl Solution for Nebulization Take 3 mL by nebulization every 4 hours as needed for Wheezing. 150 mL 1 ??? albuterol (VENTOLIN HFA) 90 mcg/actuation Inhl HFA Aerosol Inhaler INHALE 1 TO 2 PUFFS BY MOUTHEVERY 4 HOURS NEEDED FOR WHEEZING 18 Each 0 ??? amLODIPine (NORVASC) 5 mg Oral Tablet Take 1 Tablet by mouth daily. 90 Tablet 2 ??? atorvastatin (LIPITOR) 40 mg Oral Tablet Take 1 Tablet by mouth nightly. 90 Tablet 2 ??? betamethasone dipropionate (DIPROLENE) 0.05 % Top Ointment APPLY TO AFFECTED AREA EVERY DAY 15 g 2 ??? budesonide-formoteroL (SYMBICORT) 160-4.5 mcg/actuation Inhl HFA Aerosol Inhaler INHALE 2 PUFFSINTO THE LUNGS TWICE A DAY 30.6 Each 1 ??? celecoxib (CELEBREX) 200 mg Oral Capsule Take 1 Capsule by mouth 2 times daily. 60 Capsule 2 ??? colestipoL (COLESTID) 1 gram Oral Tablet TAKE 1 TABLET BY MOUTH 2 TIMES DAILY. NEEDS AN APPOINTMENT 60 Tablet 0 ??? dextromethorphan-guaiFENesin (MUCINEX DM) 30-600 mg Oral Tablet Sustained Release 12 hr Take 1 Tablet by mouth every 12 hours. 20 Tablet 0 ??? fluticasone propionate (FLONASE) 50 mcg/actuation Nasl [place], Suspension SPRAY 1 SPRAY INTO EACH NOSTRIL EVERY DAY 32 mL 1 ??? hydroCHLOROthiazide (MICROZIDE) 12.5 mg Oral Capsule Take 1 Capsule by mouth daily. 90 Capsule 2 ??? losartan (COZAAR) 50 mg Oral Tablet Take 1 Tablet by mouth 2 times daily. 180 Tablet 2 ??? montelukast (SINGULAIR) 10 mg Oral Tablet Take 1 Tablet by mouth nightly. 90 Tablet 2 ??? Nebulizer Accessories (ALL FLOW 4000 KIT) [facility] Formulary equivalent 1 Each 0 ??? pantoprazole (PROTONIX) 40 mg Oral Tablet, Delayed Release (E.C.) Take 1 Tablet by mouth daily.90 Tablet 3 ??? rifAXIMin (XIFAXAN) 550 mg Oral Tablet Take 1 Tablet by mouth 2 times daily. 9 Tablet 0 ??? rifAXIMin (XIFAXAN) 550 mg Oral Tablet Take 1 Tablet by mouth 3 times daily. 42 Tablet 2 ??? tadalafiL (CIALIS) 5 mg Oral Tablet Take 1 Tablet by mouth as needed for Erectile Dysfunction. 90 Tablet 2 ??? tamsulosin (FLOMAX) 0.4 mg Oral Capsule TAKE 2 CAPSULES BY MOUTH EVERY DAY AT NIGHT 180 Capsule0 ??? tamsulosin (FLOMAX) 0.4 mg Oral Capsule Take 1 Capsule by mouth nightly. 180 Capsule 0 ??? tiZANidine (ZANAFLEX) 2 mg Oral Tablet TAKE 1 TABLET BY MOUTH THREE TIMES A DAY 270 Tablet 0 ??? buPROPion (WELLBUTRIN XL) 150 mg Oral Tablet Sustained Release 24 hr Take 1 Tablet by mouth every morning. (Patient not taking: Reported on 02/06/2024) 90 Tablet 3 Current Facility-Administered Medications on File Prior to Visit Medication Dose Route Frequency Provider Last Rate Last Admin ??? bupivacaine HCl (MARCAINE) 0.5 % (5 mg/mL) injection 2 mL 2 mL Intra- articular Augie Ramires MD 2 mL at 08/16/21 0945 Social History Socioeconomic History ??? Marital status: Legally Spouse name: None ??? Number of children: None ??? Years of education: None ??? Highest education level: None Tobacco Use ??? Smoking status: Never ??? Smokeless tobacco: Current Types: Snuff Vaping Use ??? Vaping status: Never Used Substance and Sexual Activity ??? Alcohol use: No ??? 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 Lack of Transportation (Non-Medical): No [facility] Family and Community Support Received from [facility] Abuse Screen Received from [facility] Housing Stability Family History Problem Relation Age of Onset ??? Diabetes Mother ??? Heart Disease Mother ??? High Blood Pressure Mother ??? High Cholesterol Mother ??? Cancer Father 40 stomach ??? Other (Diabetes living) Sister 1 sister passed ??? No Known Problems Brother ??? Diabetes Maternal Grandmother ??? No Known Problems Maternal Grandfather ??? Cancer Paternal Grandmother Immunization History Administered Date(s) Administered ??? Influenza Patient Reported 04/21/2010, 03/18/2019 ??? Influenza Seasonal Injectable 05/07/2008, 03/07/2009 ??? Influenza Vaccine Quadrivalent 03/10/2016, 05/29/2017, 03/20/2018 ??? Influenza Vaccine Quadrivalent PF 06/21/2023 ??? Influenza Vaccine, Unspecified Formulation 03/18/2019 ??? Influenza Virus Vaccine Quadrivalant, Flublok 04/13/2020, 04/25/2022 ??? PPD Test 12/20/2010 ??? Pneumococcal Conjugate Vaccine 20 Valent 11/23/2022 ??? Pneumococcal Polysaccharide 23 Valent 04/21/2010, 03/10/2016 ??? Tdap 01/15/2014, 12/26/2018, 03/18/2019 ??? Zoster Recombinant 11/28/2017, 06/21/2018 Health Maintenance Due Topic Date Due ??? Hepatitis B Vaccine (1 of 3 - 19+ 3-dose series) Never done ??? COVID-19 Vaccine ( - 2022- season) Never done Patient Care Team: Steffanie Fulton APRN as PCP - General (Nurse Practitioner) Review of Systems See HPI as above for pertinent positives. Other systems reviewed as negative. Objective BP 140/84 Pulse 76 Temp 98.5 ??F (36.9 ??C) (Temporal) Ht 5' 7 (1.702 m) Wt 218 lb (98.9 kg) SpO2 98% BMI 34.14 kg/m?? Physical Exam Constitutional: Patient is oriented to person, place, and time. Patient appears well-developed and well-nourished. Head: Normocephalic and atraumatic. Eyes: Pupils are equal, round, and reactive to light. Neck: Normal range of motion. Cardiovascular: Normal rate and regular rhythm. Pulmonary/Chest:Effort normal and breath sounds normal. Abdominal: Soft. There is no tenderness. Neurological: Patient is alert and oriented to person, place, and time. Psychiatric: Patient has a normal mood and affect. Nursing note and vitals reviewed. Lab Results Component Value Date WBC 6.5 [...] HGBA1C 5.7 (H) 01/31/2024 TSHREFLEX 1.540 01/31/2024 PCM Documentation [facility] Flowsheet was completed/reviewed as part of today's visit. Patient was educated regarding the diagnosis, medication/treatment, goals, self- management tools and instructions based on their care plan. They verbalized full understanding of the education given on the After Visit Summary [AVS] for today's visit. They received a copy of the AVS in writing. If a new medicine was prescribed during this office visit. I did discuss the reason for prescribingthis new medication. I also informed of possible likely side effects, but also encouraged them to read the medication insert that will accompany their prescription and encouraged them to discuss any questions about the insert with their pharmacist. I instructed them to call if having side effects or possible allergic reaction after taking. I also discussed the risk of stopping the medication or deviating from prescribing instructions. Dosing instructions are present on the AVS and the they are aware. I inquired of any questions and answered accordingly. If a controlled medication was prescribed a DENZEL was reviewed and appropriate. In addition, a urine drug screen was reviewed and appropriate unless specified above. If a urine drug screen has not been performed in the last year and a controlled medication was prescribed one will be ordered or a random urine drug screen will be performed. PDMP not electronically reviewed on this encounter. No Result A review of potential barriers to completing the above treatment plan identifies: no significant Risk and benefit of treatment has been discussed and agreed upon. Informed of importance of plannedfollow up forr health and safety. Concerns have been discussed and considered in the planned management. Risk/benefit of treatment discussed Importance of follow-up stressRisk of noncompliance review Shaheed Riley DO Disclaimer: This note was partially transcribed via voice recognition software. Though all efforts were made to ensure accuracy, it is possible this note may contain senior coldfusion developer errors. Please bring any inaccuracies discovered to my attention so I may make a corrective addendum in a timely fashion. documented in this encounter Plan of Treatment Upcoming Encounters Date Type Department Care Team (Late st Contact Info) Description 06/28/2024 9:40 AM EST Clinical Support [facility] [place] [facility] [address] [place] [phone] 11/19/2024 1:40 PM EDT Office Visit [facility] [address] [place] [address] Lyndsay Brewer DO [address] [place] [address] documented as of this encounter [...] Procedure Name Priority Date/Time Associated Diagnosis Comments POCT JOSIE SARS ANTIGEN Routine 02/06/2024 10:12 AM EDT Cough, unspecified type POCT JOSIE INFLUENZA A/B Routine 02/06/2024 10:03 AM EDT Cough, unspecified type documented in this encounter Results * POCT JOSIE SARS ANTIGEN (02/06/2024 10:12 AM EDT) SARS Antigen Negative Negative SEP OFFICE Lot Number SEP OFFICE Expiration Date SEP OFFICE SeriAl # SEP OFFICE Control Line SEP OFFICE 02/06/2024 10:1 2 AM EDT [facility] L Sharp DO POINT OF CARE TEST ORDERABLES Final Result SEP [facility]ICE * (ABNORMAL) POCT JOSIE INFLUENZA A/B (02/06/2024 10:03 AM EDT) Influenza A Antigen Negative Negative 02/06/2024 10:12 AM EDT [facility] [place] Influenza B Antigen Positive(A) Negative 02/06/2024 10:12 AM EDT [facility] [place] Swab SPECIMEN FROM NASOPHARYNGEAL STRUCTURE / Unknown 02/06/2024 10:03 AM EDT 02/06/2024 10:12 AM EDT [facility] L Sharp DO POINT OF CARE TEST ORDERABLES Final Result Performing Organization Address City[facility] Co de Phone Number [facility] [place] [address] [place] [phone] documented in this encounter Visit Diagnoses Diagnosis Cough, unspecified type- Primary Influenza B Influenza with other respiratory manifestations Bilateral thumb pain Foot tendinitis Tenosynovitis of foot and ankle documented in this encounter Discontinued Medications Medication Sig Discontinue Reason Start Date End Da te diclofenac (VOLTAREN) 1 % Top GelIndications:Bilatera l thumb pain APPLY 2 GRAMS TOPICALLY 4 TIMES DAILY DIRECTED. Reorder 08/16/2021 02/06/2024 documented as of this encounter Additional Health Concerns Infection Onset Date Last Indicated Resolved Time INFLUENZA 02/06/2024 02/06/2024 02/20/2024 10:1 2 PM EDT documented as of this encounter Care Teams Solar Energy Consultant And Designer Relationship Specialty Start Date End Date Steffanie Fulton APRN [address] [id number] PCP - General Nurse Practitioner 07/26/21 documented as of this encounter
--- OUTSIDE RECORDS SUMMARY | 2024-05-29 15:34 | XMS_ITS | Encounter Summary ---
Author Organization [place] [address] Care Team Providers Care Enterprise Application Administrator Name Role Phone Steffanie Fulton APRN Primary Care Provider +1- [phone] Reason for Visit * Reason Comments Hospital Follow Up Encounter Details Date Type Department Care Team (Late st Contact Info) Description 02/19/2024 10:00 AM EDT Office Visit [facility] [facility] [address] [place] [phone] Lorenzo LambeenYOLI [address] [place] [address] Herpes zoster without complication (Primary Dx) Social [...] Sign Reading Time Taken Comments Blood Pressure 139/89 02/19/2024 10:18 AM EDT Pulse 96 02/19/2024 10:18 AM EDT Temperature 37 ??C (98.6 ??F) 02/19/2024 10:18 AM EDT Respiratory Rate - - Oxygen Saturation 99% 02/19/2024 10:18 AM EDT Inhaled Oxygen Concentration - - Weight 97.5 kg (215 lb) 02/19/2024 10:18 AM EDT Height 170.2 cm (5' 7 ) 02/19/2024 10:18 AM EDT Body Mass Index 33.67 02/19/2024 10:18 AM EDT documented in this encounter Functional [...] Refills Last Filled Start Date End Date predniSONE (DELTASONE) 10 mg Oral TabletIndications:H erpes zoster without complication 3 times a day x 4 days, 2 times a day x 4 days, once a day x 4 days 24 Tablet 02/19/2024 02/27/2024 documented in this encounter Progress Notes * Mariangel Lamb, BOTTOM PAINTER - 02/19/2024 10:00 AM EDT Images from the original note were not included. Vitals: 02/19/24 1018 BP: 139/89 Pulse: 96 Temp: 98.6 ??F (37 ??C) TempSrc: Temporal SpO2: 99% Weight: 215 lb (97.5 kg) Height: 5' 7 (1.702 m) Body mass index is 33.67 kg/m??. SUBJECTIVE: Chief Complaint Patient presents with ??? Hospital Follow Up HPI: Patient c/o being at the ER x2 and was DX with Shingles he stated they gave him an antibiotic on his first visit when they thought it was more cellulitis and was suppose to get a steroid but they did not send it in. He was prescribed acyclovir in the emergency room on the second visit Patient would like to know information if this is contagious or can be spread by contact. His does not believe she has had chickenpox. She saw her provider today and is having titers completed. He also has a daughter living in his home He said his neck feels like it is sunburn Review of Systems Constitutional: Positive for fatigue. HENT: Negative. Respiratory: Negative. Cardiovascular: Negative. Gastrointestinal: Negative. OBJECTIVE: Physical Exam [...] all orders for this visit: Herpes zoster without complication - predniSONE (DELTASONE) 10 mg Oral Tablet; 3 times a day x 4 days, 2 times a day x 4 days, once a day x 4 days Dispense: 24 Tablet; Refill: 0 documented in this encounter Miscellaneous Notes * Patient Instructions - Genna Day MA - 02/19/2024 10:00 AM EDT You may be contacted [...] AM EST Clinical Support [facility] [place] [address] [place] [address] 11/19/2024 1:40 PM EDT Office Visit [facility] Neu[facility] [address] [place] [address] Lyndsay Brewer DO [address] [facility] [address] [place] [address] documented as of this encounter Goals Goal [...] without complication- Primary documented in this encounter Discontinued Medications Medication Sig Discontinue Reason Start Date End Da te methylPREDNISolone (MEDROL DOSPACK) 4 mg Oral Tablets, Dose PackIndications:Cough , unspecified type,Influenza B See package instructions DELETE-Therapy completed 02/06/2024 02/19/2024 documented as of this encounter Additional Health Concerns Infection Onset Date Last Indicated Resolved Time INFLUENZA 02/06/2024 02/06/2024 02/20/2024 10:1 2 PM EDT documented as of this encounter Care Teams Enterprise Application Administrator Relationship Specialty Start Date End Date Steffanie Fulton APRN [address] [place] [address] PCP - General Nurse Practitioner 07/26/21 documented as of this encounter
--- OUTSIDE RECORDS SUMMARY | 2024-05-29 15:35 | XMS_ITS | Encounter Summary ---
Author Organization [place] [address] Care Team Providers Care Ladle Pourer Name Role Phone Steffanie Fulton APRN Primary Care Provider +1- [phone] Reason for Visit * Reason Comments Medication Refill Encounter Details Date Type Department Care Team (Late st Contact Info) Description 09/24/2023 Refill [facility] [place] [address] [place] [address] Marcela De Leon MD Medication [...] Answer Date Recorded PHQ-2 Total Score 0 11/23/2022 Hunger Vital Sign Answer Date Recorded Within [...] hearing? Answer Date of Assessment Author No 05/16/2023 9:34 AM Ligia Gonzales MA * Is the person blind or does he/she have serious difficulty seeing even when wearing glasses? Answer Date of Assessment Author No 05/16/2023 9:34 AM Ligia Gonzales MA * Does this person have serious difficulty walking or climbing stairs? Answer Date of Assessment Author No 05/16/2023 9:34 AM Ligia Gonzales MA * Does this person have difficulty dressing or bathing? Answer Date of Assessment Author No 05/16/2023 9:34 AM Ligia Gonzales MA * Because of a physical, mental or emotional condition, does this person have difficulty doing errands alone such as visiting a doctor's office or shopping? Answer Date of Assessment Author No 05/16/2023 9:34 AM Ligia Gonzales MA documented as of this encounter Mental Status * Because of a physical, mental or emotional condition, does this person have serious difficulty concentrating, remembering or making decisions? Answer Entry Date Author No 05/16/2023 9:34 AM Ligia Gonzales MA documented in this encounter Ordered Prescriptions Prescription Sig Dispense Quantity Refills Last Filled Start Date End Date tamsulosin (FLOMAX) 0.4 mg Oral CapsuleIndications :BPH without urinary obstruction TAKE 2 CAPSULES BY MOUTH EVERY DAY AT NIGHT 60 Capsule 09/26/2023 documented in this encounter Miscellaneous Notes * Telephone Encounter - Marcela Ignacio CPhT - 09/26/2023 7:28 AM EDT Tamsulosin 0.4- Medication Refill Protocol failed due to appointment. [email or web address] Reason: Chart review does not show a coded diagnosis in protocol timeframe. [email or web address] Action: Approved carter 30-day supply of medication Routed to office staff for outreach to schedule appointment. documented in this encounter Plan of Treatment Upcoming Encounters Date Type Department Care Team (Late st Contact Info) Description 06/28/2024 9:40 AM EST Clinical Support [facility] [place] [facility] [address] [phone] 11/19/2024 1:40 PM EDT Office Visit [facility] [address] [place] [address] Lyndsay Brewer DO [address] [place] [address] documented as of this encounter [...] CAPSULES BY MOUTH EVERY DAY AT NIGHT 01/19/2023 09/26/2023 documented as of this encounter Care Teams Ladle Pourer Relationship Specialty Start Date End Date Steffanie Fulton APRN [address] [place] [address] PCP - General Nurse Practitioner 07/26/21 documented as of this encounter
--- OUTSIDE RECORDS SUMMARY | 2024-05-29 15:35 | XMS_ITS | Encounter Summary ---
Author Organization [place] [address] Care Team Providers Care Photoengraving Etcher Name Role Phone YolandaSteffanie devine APRN Primary Care Provider [phone]- [phone] Reason for Visit * Reason Onset Date Comments Medication Refill 08/17/2023 Encounter Details Date Type Department Care Team (Late st Contact Info) Description 08/17/2023 Refill [facility] [place] [facility] [address] [employer] [facility] [place] [phone] Steffanie Fulton APRN [address] [employer] [place] [address] Medication Refill Social History Tobacco Use Types [...] Refills Last Filled Start Date End Date albuterol (PROVENTIL HFA;VENTOLIN HFA) 90 mcg/actuation Inhl HFA Aerosol InhalerIndications :Upper respiratory tract infection, unspecified type Inhale 2 Puffs into the lungs every 4 hours as needed for Wheezing. 1 Each 2 08/17/2023 04/08/2024 documented in this encounter Plan of Treatment Upcoming Encounters Date Type Department Care Team (Late st Contact Info) Description 06/28/2024 9:40 AM EST Clinical Support [facility] [place] [address] [employer] [place] [phone] 11/19/2024 1:40 PM EDT Office Visit [facility] Neurology [facility] [address] [place] [address] Osman Lyndsay Polina, DO [address] [place] [address] documented as of this encounter [...] every 4 hours as needed for Wheezing. Reorder 06/21/2023 08/17/2023 documented as of this encounter Care Teams Photoengraving Etcher Relationship Specialty Start Date End Date Steffanie Fulton APRN [address] [place] [address] PCP - General Nurse Practitioner 07/26/21 documented as of this encounter
--- OUTSIDE RECORDS SUMMARY | 2024-05-29 15:35 | XMS_ITS | Encounter Summary ---
Author [place] [address] Care Team Providers Care Assembler Ping Pong Table Name Role Phone KirstinSteffanie YOLI Primary Care Provider +1- [phone] Reason for Referral * Medication Prior Authorization - Authorized Specialty Diagnoses / Procedures Referred By Contac t Referred To Contact Diagnoses Irritable bowel syndrome with diarrhea Michael Mckeon MD [address] [place] [address] Phone: tel: fax: Referral ID Status Reason Start Date Expiration Date V isits Requested Visits Authorized [id number] Authorized 06/26/2023 11/21/2023 1 1 Reason for Visit * Reason Comments Diarrhea Medication Refill Encounter Details Date Type Department Care Team (Late st Contact Info) Description 11/07/2023 1:20 PM EDT Office Visit [facility] [address] [place] [id number] Michael Mckeon MD [address] [place] [address] Irritable bowel syndrome with diarrhea (Primary Dx) Social History Tobacco Use Types [...] Sign Reading Time Taken Comments Blood Pressure 132/78 11/07/2023 1:24 PM EDT Pulse - - Temperature - - Respiratory Rate - - Oxygen Saturation - - Inhaled Oxygen Concentration - - Weight 98.2 kg (216 lb 9.6 oz) 11/07/2023 1:24 P M EDT Height 170.2 cm (5' 7 ) 11/07/2023 1:24 PM EDT Body Mass Index 33.92 11/07/2023 1:24 PM EDT documented in this encounter Functional [...] Refills Last Filled Start Date End Date rifAXIMin (XIFAXAN) 550 mg Oral TabletIndications:I rritable bowel syndrome with diarrhea Take 1 Tablet by mouth 3 times daily. 42 Tablet 2 11/07/2023 documented in this encounter Progress Notes * Michael Mckeon MD - 11/07/2023 1:20 PM EDT [facility] Gastroenterology Outpatient Followup Note 11/07/2023 Reason for visit: Irritable bowel syndrome with diarrhea Subjective: 57-year-old male with known history of irritable bowel syndrome with diarrhea presented today for follow-up. He has been managing his symptoms as since his last office visit couple years ago with Colestid and Imodium. I did to decrease his dose of Colestid to 1 g once daily and add Imodium on as-needed basis because that taking Colestid 1 g twice daily caused constipation and required significantstraining. He continues to have few loose bowel movements per day while on Colestid once daily. Allergies: Allergies Allergen Reactions Abilify [Aripiprazole] Other (See Comments) convulsions Unable To Assess Patient does not take any narcotic medications Past Medical History: Past Medical History: Diagnosis Date Arthritis Asthma 06/02/2010 Bipolar affective (HCC) Blood transfusion EPHRAIM (generalized anxiety disorder) Heart attack ([facility]) Heroin abuse ([facility]) Quit August Hypertension IBS (irritable [...] JOINT EXCISION; Surgeon: Kenny Loja MD; Location: [facility]; Service: Orthopedics TOTAL HIP ARTHROPLASTY Left [...] Social History Tobacco Use Smoking status: Never Smokeless tobacco: [...] for itching and rash. Physical Examination BP 132/78 Ht 5' 7 (1.702 m) Wt 216 lb 9.6 oz (98.2 kg) BMI 33.92 kg/m?? Physical Exam Constitutional: General: He is [...] Laboratory: Lab Results Component Value Date/Time WBC 5.3 11/01/2023 10:02 AM WBC 5.5 11/23/2022 08:45 AM WBC 6.3 02/25/2022 08:06 AM HGB 14.5 11/01/2023 10:02 AM HGB 14.7 11/23/2022 08:45 AM HGB 15.1 02/25/2022 08:06 AM HCT 43.7 11/01/2023 10:02 AM HCT 44.2 11/23/2022 08:45 AM HCT 43.7 02/25/2022 08:06 AM MCV 94.8 11/01/2023 10:02 AM MCV 96.7 11/23/2022 08:45 AM MCV 93.0 02/25/2022 08:06 AM PLT 167 11/01/2023 10:02 AM PLT 181 11/23/2022 08:45 AM PLT 155 02/25/2022 08:06 AM Lab Results Component Value Date/Time ALT 36 11/01/2023 10:02 AM ALT 33 11/23/2022 08:45 AM ALT 23 02/25/2022 08:06 AM AST 31 11/01/2023 10:02 AM AST 32 11/23/2022 08:45 AM AST 23 02/25/2022 08:06 AM ALKPHOS 134 (H) 11/01/2023 10:02 AM ALKPHOS 121 11/23/2022 08:45 AM ALKPHOS 125 02/25/2022 08:06 AM PROT 7.6 11/01/2023 10:02 AM PROT 7.1 11/23/2022 08:45 AM PROT 7.2 02/25/2022 08:06 AM Lab Results Component Value Date/Time CREATININE 0.94 11/01/2023 10:02 AM CREATININE 1.18 11/23/2022 08:45 AM CREATININE 0.90 02/25/2022 08:06 AM BUN 17 11/01/2023 10:02 AM BUN 21 (H) 11/23/2022 08:45 AM BUN 18 02/25/2022 08:06 AM NA 140 11/01/2023 10:02 AM NA 140 11/23/2022 08:45 AM NA 136 02/25/2022 08:06 AM K 4.1 11/01/2023 10:02 AM K 4.0 11/23/2022 08:45 AM K 3.9 02/25/2022 08:06 AM CL 104 11/01/2023 10:02 AM CL 104 11/23/2022 08:45 AM CL 102 02/25/2022 08:06 AM CO2 23 11/01/2023 10:02 AM CO2 23 11/23/2022 08:45 AM CO2 24 02/25/2022 08:06 AM Lab Results Component Value Date INR 0.89 10/29/2021 INR 0.91 07/17/2017 ASSESSMENT Irritable bowel syndrome with diarrhea - rifAXIMin (XIFAXAN) 550 mg Oral Tablet; Take 1 Tablet by mouth 3 times daily. Continue colestid and imodium if rifaximin is not helpful. Alternatively we can also do Viberzi if he would like to try it. Return in about 6 months (around 05/09/2024). Michael Herr MD Ibm Mainframe Developer [facility] [phone] documented in this encounter Miscellaneous Notes * Patient Instructions - Monika Mitchell MA - 11/07/2023 1:20 PM EDT You may be contacted by mail [...] EST Clinical Support [facility] [address] [place] [address] 11/19/2024 1:40 PM EDT Office Visit [facility] [address] [place] [address] Lyndsay Brewer, DO [address] [place] [address] documented as of this encounter [...] syndrome with diarrhea- Primary Irritable bowel syndrome documented in this encounter Care Teams Assembler Ping Pong Table Relationship Specialty Start Date End Date Steffanie Fulton APRN [address] [place] [address] PCP - General Nurse Practitioner 07/26/21 documented as of this encounter
--- OUTSIDE RECORDS SUMMARY | 2024-05-29 15:35 | XMS_ITS | Encounter Summary ---
Author Organization [place] [address] Care Team Providers Care Rewards Consultant Name Role Phone Kirstin Steffanie YOLI Primary Care Provider +1- [phone] Reason for Visit * Reason Comments Medication Refill Encounter Details Date Type Department Care Team (Late st Contact Info) Description 08/18/2023 Refill [facility] [place] [facility] [address] [place] [phone] YolandanilsonSteffanieYOLI [address] [place] [address] Medication Refill Social History Tobacco Use Types [...] of Assessment Author No 05/16/2023 9:34 AM EST Ligia Casper MA * Is the person blind or does he/she have serious difficulty seeing even when wearing glasses? Answer Date of Assessment Author No 05/16/2023 9:34 AM EST Ligia Casper MA * Does this person have serious difficulty walking or climbing stairs? Answer Date of Assessment Author No 05/16/2023 9:34 AM Ligia Gonzales MA * Does this person have difficulty dressing or bathing? Answer Date of Assessment Author No 05/16/2023 9:34 AM EST Ligia Casper MA * Because of a physical, mental [...] Entry Date Author No 05/16/2023 9:34 AM EST Ligia Casper MA documented in this encounter Ordered Prescriptions Prescription Sig Dispense Quantity Refills Last Filled Start Date End Date losartan (COZAAR) 50 mg Oral TabletIndications: Essential hypertension TAKE 1 TABLET BY MOUTH TWICE A DAY 180 Tablet 1 08/18/2023 11/02/2023 documented in this encounter Miscellaneous Notes * Telephone Encounter - Nohemy Camp CPhT - 08/18/2023 6:48 AM EST Losartan Medication Refill Protocol failed due to labs, vitals or acute exacerbations. [facility] Reason: Abnormal serum potassium OR potassium not on file within 6 months and Serum creatininenot on file within protocol timeframe testing shaking shipping Action: Defer to office. Patient needs labwork or vitals completed. Routed to office staff for outreach. This diagnosis was last assessed on 11/23/22. documented in this encounter Plan of Treatment Upcoming Encounters Date Type Department Care Team (Late st Contact Info) Description 06/28/2024 9:40 AM EST Clinical Support [facility] [place] [facility] [address] [place] [phone] 11/19/2024 1:40 PM EDT Office Visit [facility] Neurology [facility] [address] [place] [address] Lyndsay Brewer DO [address] [place] [address] documented as of this encounter Goals Goal Patient Goal Type Associated Problems Recent Progress Patient-Stated? Author Blood Pressure < 140/90 Blood Pressure 134/84(2023 1:16 PM EST) No Yana Choi RMJane Eat better, exercise, reach an ideal body weight General No Yana Choi RMJane Stay Tobacco Free Lifestyle No Yana Choi RMA documented as of this encounter Visit Diagnoses Diagnosis Essential hypertension Unspecified essential hypertension documented in this encounter Discontinued Medications Medication Sig Discontinue Reason Start Date End Da te losartan (COZAAR) 50 mg Oral TabletIndications:Essenti al hypertension Take 1 Tablet by mouth 2 times daily. 11/23/2022 08/18/2023 documented as of this encounter Care Teams Rewards Consultant Relationship Specialty Start Date End Date Steffanie Fulton APRN [address] [place] [address] PCP - General Nurse Practitioner 07/26/21 documented as of this encounter
--- OUTSIDE RECORDS SUMMARY | 2024-05-29 15:35 | XMS_ITS | Encounter Summary ---
Author Organization [place] [address] Care Team Providers Care Operations Research Scientist Name Role Phone Kirstin Steffanie YOLI Primary Care Provider [phone]- [phone] Reason for Visit * Reason Onset Date Comments Medication Refill Central Patient Navigator Outreach 10/13/2023 Med refill 1st Encounter Details Date Type Department Care Team (Late st Contact Info) Description 10/13/2023 Refill [facility] [place] [facility] [address] [place] [phone] Steffanie FultonYOLI [address] [place] [address] Medication Refill; Central Patient Navigator Outreach (Med refill 1st) Social History Tobacco Use Types Packs/Day Years [...] Refills Last Filled Start Date End Date montelukast (SINGULAIR) 10 mg Oral TabletIndications: Moderate persistent asthma without complication TAKE 1 TABLET BY MOUTH EVERY DAY AT NIGHT 30 Tablet 10/13/2023 11/29/2023 documented in this encounter Miscellaneous Notes * Telephone Encounter - Cristina Avila - 10/13/2023 2:02 PM EDT Patient Outreach: Medication refill appointment, [facility] Primary Care Attempt Count: 1st Care Gaps Addressed sap integration architect: Annual Wellness Visit, Appointment, and Medicare Questionnaire Outcome: pt was driving at time of call and will call back on Monday or will schedule appt through my chart . * Telephone Encounter - Niecy Riley CPhT - 10/13/2023 1:32 PM EDT Montelukast- Medication Refill Protocol failed due to appointment. export traffic department manager Reason: Chart review does not show a coded diagnosis in protocol timeframe. export traffic department manager Action: Approved 30-day supply of medication Routed to Patient Navigator team for outreach to schedule appointment. documented in this encounter Plan of Treatment Upcoming Encounters Date Type Department Care Team (Late st Contact Info) Description 06/28/2024 9:40 AM EST Clinical Support [facility] [place] [address] [place] [address] 11/19/2024 1:40 PM EDT Office Visit [facility] Neurology [facility] [address] [place] [address] Lyndsay Brewer DO [address] [place] [address] documented as of this encounter Goals Goal Patient Goal Type Associated Problems Recent Progress Patient-Stated? Author Blood Pressure < 140/90 Blood Pressure 134/84(2023 1:16 PM EST) No Yana Choi RMA Eat better, exercise, reach an ideal body weight General No Yana Choi RMA Stay Tobacco Free Lifestyle No Yana Choi RMA documented as of this encounter Visit Diagnoses Diagnosis Moderate persistent asthma without complication Unspecified asthma documented in this encounter Discontinued Medications Medication Sig Discontinue Reason Start Date End Da te montelukast (SINGULAIR) 10 mg Oral TabletIndications:Moderat e persistent asthma without complication TAKE 1 TABLET BY MOUTH EVERY DAY AT NIGHT 12/19/2022 10/13/2023 documented as of this encounter Care Teams Operations Research Scientist Relationship Specialty Start Date End Date Steffanie Fulton APRN [address] [place] [address] PCP - General Nurse Practitioner 07/26/21 documented as of this encounter
--- OUTSIDE RECORDS SUMMARY | 2024-05-29 15:35 | XMS_ITS | Encounter Summary ---
Author Organization [place] [address] Care Team Providers Care Fashion Adviser Name Role Phone Kirstin Steffanie YOLI Primary Care Provider +1- [phone] Reason for Visit * Reason Comments Medication Refill Encounter Details Date Type Department Care Team (Late st Contact Info) Description 10/13/2023 Refill [facility] [place] [facility] [address] [place] [phone] Steffanie FultonYOLI [address] [place] [address] Medication Refill Social History Tobacco Use Types [...] Refills Last Filled Start Date End Date hydroCHLOROthiazid e (MICROZIDE) 12.5 mg Oral CapsuleIndications :Essential hypertension TAKE 1 CAPSULE BY MOUTH EVERY DAY 90 Capsule 1 10/13/2023 documented in this encounter Miscellaneous Notes * Telephone Encounter - Nohemy Camp CPhT - 10/13/2023 7:19 AM EDT Hctz Medication Refill Protocol failed due to labs, vitals or acute exacerbations. hospital coder Reason: Serum sodium not on file within 6 months, Abnormal serum potassium OR potassium not onfile within 6 months, and Serum creatinine not on file within protocol timeframe hospital coder Action: Defer to office. Patient needs labwork or vitals completed. Routed to office staff for outreach. This diagnosis was last assessed on 11/23/22. documented in this encounter Plan of Treatment Upcoming Encounters Date Type Department Care Team (Late st Contact Info) Description 06/28/2024 9:40 AM EST Clinical Support [facility] [place] [facility] [address] [place] [phone] 11/19/2024 1:40 PM EDT Office Visit [facility] Neurology [facility] [address] [place] [phone] Lyndsay Brewer DO [address] [place] [address] documented as of this encounter [...] Discontinue Reason Start Date End Da te hydroCHLOROthiazide (MICROZIDE) 12.5 mg Oral CapsuleIndications:Essent ial hypertension Take 1 Capsule by mouth daily. 11/23/2022 10/13/2023 documented as of this encounter Care Teams Fashion Adviser Relationship Specialty Start Date End Date Steffanie Fulton APRN [address] [place] [address] PCP - General Nurse Practitioner 07/26/21 documented as of this encounter
--- OUTSIDE RECORDS SUMMARY | 2024-05-29 15:35 | XMS_ITS | Encounter Summary ---
Author Organization [place] [address] Care Team Providers Care Correction Lieutenant Name Role Phone Kirstin Steffanie YOLI Primary Care Provider +1- [phone] Reason for Visit * Reason Comments Medication Refill Encounter Details Date Type Department Care Team (Late st Contact Info) Description 08/22/2023 Refill [facility] [place] [facility] [address] [place] [phone] YolandanilsonSteffanieYOLI [address] [facility] [place] [address] Medication Refill Social History Tobacco Use Types [...] Casper MA * Does this person have difficulty dressing or bathing? Answer Date of Assessment Author No 05/16/2023 9:34 AM EST Ligia Casper MA * Because of a physical, mental or emotional condition, does this person have difficulty doing errands alone such as visiting a doctor's office or shopping? Answer Date of Assessment Author No 05/16/2023 9:34 AM EST Ligia Casper MA documented as of this encounter Mental Status * Because of a physical, mental or emotional condition, does this person have serious difficulty concentrating, remembering or making decisions? Answer Entry Date Author No 05/16/2023 9:34 AM EST Ligia Casper MA documented in this encounter Miscellaneous Notes * Telephone Encounter - Delmy Hanna CPhT - 08/22/2023 1:25 PM EST Losartan Duplicate refill request. This medication has already been approved within the last 7 days. Refill denied. documented in this encounter Plan of Treatment Upcoming Encounters Date Type Department Care Team (Late st Contact Info) Description 06/28/2024 9:40 AM EST Clinical Support [facility] [place] [facility] [address] [place] [address] 11/19/2024 1:40 PM EDT Office Visit SE[facility] Neurology [facility] [address] [place] [address] Lyndsay Brewer DO [address] [place] [address] documented as of this encounter [...] Unspecified essential hypertension documented in this encounter Care Teams Correction Lieutenant Relationship Specialty Start Date End Date Steffanie Fulton APRN [address] [facility] [place] [address] PCP - General Nurse Practitioner 07/26/21 documented as of this encounter
--- OUTSIDE RECORDS SUMMARY | 2024-05-29 15:35 | XMS_ITS | Encounter Summary ---
Author Organization [place] [address] Care Team Providers Care Assistant Quality Manager Name Role Phone Kirstin Steffanie YOLI Primary Care Provider +1- [phone] Encounter Details Date Type Department Care Team (Late st Contact Info) Description 09/13/2023 1:34 PM EDT - 09/13/2023 11:59 PM EDT Hospital Encounter [facility] [address] [place] [address] Steffanie Fulton APRN [address] [place] [address] Contusion of right clavicle, subsequent encounter Discharge Disposition: Home or Self Care Social [...] Ligia Gonzales MA documented in this encounter Medications at Time of Discharge albuterol (VENTOLIN HFA) 90 mcg/actuation Inhl HFA Aerosol InhalerIndications: Encounter for medication refill INHALE 1 TO 2 PUFFS BY MOUTH EVERY 4 HOURS NEEDED FOR WHEEZING 18 Each 06/13/2023 betamethasone dipropionate (DIPROLENE) 0.05 % Top OintmentIndications :Psoriasis APPLY TO AFFECTED AREA EVERY DAY 15 g 2 11/04/2021 fluticasone propionate (FLONASE) 50 mcg/actuation Nasl [place], SuspensionIndicatio ns:Moderate persistent asthma, uncomplicated SPRAY 1 SPRAY INTO EACH NOSTRIL EVERY DAY 32 mL 1 11/04/2021 Nebulizer Accessories (ALL FLOW 4000 KIT) [facility] Formulary equivalent 1 Each 0 06/27/2012 albuterol (PROVENTIL HFA;VENTOLIN HFA) 90 mcg/actuation Inhl HFA Aerosol InhalerIndications: Upper respiratory tract infection, unspecified type Inhale 2 Puffs into the lungs every 4 hours as needed for Wheezing. 1 Each 2 08/17/2023 4 budesonide-formoter oL (SYMBICORT) 160-4.5 mcg/actuation Inhl HFA Aerosol InhalerIndications: History of asthma Inhale 2 Puffs into the lungs 2 times daily. 30.6 Each 2 11/23/2022 4 celecoxib (CELEBREX) 200 mg Oral CapsuleIndications: Generalized osteoarthritis of multiple sites Take 1 Capsule by mouth 2 times daily. 60 Capsule 2 04/24/2023 4 hydroCHLOROthiazide (MICROZIDE) 12.5 mg Oral CapsuleIndications: Essential hypertension Take 1 Capsule by mouth daily. 90 Capsule 1 11/23/2022 4 montelukast (SINGULAIR) 10 mg Oral TabletIndications:M oderate persistent asthma without complication TAKE 1 TABLET BY MOUTH EVERY DAY AT NIGHT 90 Tablet 1 12/19/2022 4 tamsulosin (FLOMAX) 0.4 mg Oral CapsuleIndications: BPH without urinary obstruction TAKE 2 CAPSULES BY MOUTH EVERY DAY AT NIGHT 180 Capsule 1 01/19/2023 4 tiZANidine (ZANAFLEX) 2 mg Oral TabletIndications:C hronic low back pain with sciatica, sciatica laterality unspecified, unspecified back pain laterality Take 1 Tablet by mouth 3 times daily. 90 Tablet 2 09/13/2023 4 documented as of this encounter Discharge Disposition Disposition Code Departure Means Destination Home or Self Care documented in this encounter Plan of Treatment Upcoming Encounters Date Type Department Care Team (Late st Contact Info) Description 06/28/2024 9:40 AM EST Clinical Support [facility] [place] [facility] [address] [place] [phone] 11/19/2024 1:40 PM EDT Office Visit [facility] Neurology [facility] [address] [place] [address] Lyndsay Brewer, DO [address] [place] [address] documented as of this encounter [...] Procedure Name Priority Date/Time Associated Diagnosis Comments XR CLAVICLE RIGHT Routine 09/13/2023 1:4 4 PM EDT Contusion of right clavicle, subsequent encounter documented in this encounter Results * XR CLAVICLE RIGHT (09/13/2023 1:44 PM EDT) Anatomical Region Laterality Modality Shoulder Radiographic Pauly ging 09/13/2023 1:44 PM EDT Impressions 09/13/2023 3:41 PM EDT No acute bony abnormality. - Note: Radiology results need to be interpreted within a comprehensive clinical context. ??If you have questions about the radiology report, please contact the office of the ordering clinician. Narrative 09/13/2023 3:41 PM EDT XR CLAVICLE RIGHT, ??09/13/2023 1:44 PM CLINICAL HISTORY: ??T14.8XXD-Other injury of unspecified body region, subsequent [id number] COMPARISON: ??None. PROCEDURE COMMENTS: XR CLAVICLE RIGHT FINDINGS: No acute fracture, dislocation, embedded foreign body, or significant soft tissue abnormality. Arthritis of the AC joint with a possible prior surgical resection of the lateral end of the clavicle. Procedure Note Makenna Kimble MD - 09/13/2023 XR CLAVICLE RIGHT, 09/13/2023 1:44 PM CLINICAL HISTORY: T14.8XXD-Other injury of unspecified body region,subsequent [id number] COMPARISON: None. PROCEDURE COMMENTS: XR CLAVICLE RIGHT FINDINGS: No acute fracture, dislocation, embedded foreign body, or significantsoft tissue abnormality. Arthritis of the AC joint with a possible priorsurgical resection of the lateral end of the clavicle. IMPRESSION: No acute bony abnormality. - Note: Radiology results need to be interpreted within a comprehensiveclinical context. If you have questions about the radiology report, please contactthe office of the ordering clinician. Steffanie Fulton APRN IMG DIAGNOSTIC IMAGING ORD ERABLES Final Result documented in this encounter Visit Diagnoses Diagnosis Contusion of right clavicle, subsequent encounter documented in this encounter Care Teams Assistant Quality Manager Relationship Specialty Start Date End Date Steffanie Fulton APRN [address] [place] [address] PCP - General Nurse Practitioner 07/26/21 documented as of this encounter
--- OUTSIDE RECORDS SUMMARY | 2024-05-29 15:35 | XMS_ITS | Encounter Summary ---
Author Organization [place] [address] Care Team Providers Care Slope Tender Name Role Phone YolandaSteffanie devine APRN Primary Care Provider +1- [phone] Reason for Visit * Reason Onset Date Comments Medication Refill 09/25/2023 Encounter Details Date Type Department Care Team (Late st Contact Info) Description 09/25/2023 Refill [facility] [address] [employer] [facility] [place] [phone] Steffanie Fulton APRN [address] [place] [address] Medication Refill Social History Tobacco Use Types [...] Refills Last Filled Start Date End Date dextromethorphan-g uaiFENesin (MUCINEX DM) 30-600 mg Oral Tablet Sustained Release 12 hrIndications:Acut e cough Take 1 Tablet by mouth every 12 hours. 20 Tablet 09/25/2023 12/01/2023 documented in this encounter Plan of Treatment Upcoming Encounters Date Type Department Care Team (Late st Contact Info) Description 06/28/2024 9:40 AM EST Clinical Support AN[facility] [address] [employer] [employer] [place] [phone] 11/19/2024 1:40 PM EDT Office Visit [facility] Neu[facility] [address] [place] [address] Lyndsay Brewer, [address] [place] [address] documented as of this encounter Goals Goal Patient Goal Type Associated Problems Recent Progress Patient-Stated? Author Blood Pressure < 140/90 Blood Pressure 134/84(2023 1:16 PM EST) No Yana Choi RMA Eat better, exercise, reach an ideal body weight General No Yana Choi RMJane Stay Tobacco Free Lifestyle No Yana Choi RMA documented as of this encounter Visit Diagnoses Diagnosis Acute cough documented in this encounter Discontinued Medications Medication Sig Discontinue Reason Start Date End Da te dextromethorphan-guaiFEN esin (MUCINEX DM) 30-600 mg Oral Tablet Sustained Release 12 hrIndications:Acute cough Take 1 Tablet by mouth every 12 hours. Reorder 06/21/2023 09/25/2023 documented as of this encounter Care Teams Slope Tender Relationship Specialty Start Date End Date Steffanie Fulton APRN [address] [place] [id number] PCP - General Nurse Practitioner 07/26/21 documented as of this encounter
--- OUTSIDE RECORDS SUMMARY | 2024-05-29 15:35 | XMS_ITS | Encounter Summary ---
Author Organization [place] [address] Care Team Providers Care Cut Out Operator Name Role Phone Kirstin Steffanie YOLI Primary Care Provider +1- [phone] Encounter Details Date Type Department Care Team (Late st Contact Info) Description 12/01/2023 Orders Only [facility] [address] [place] [phone] YolandaSteffanie devineYOLI [address] [place] [address] Acute cough Social History Tobacco Use Types Packs/Day Years [...] 11/29/2023 9:28 AM EDT Haylie Krishnan [place] * Is the person blind or does he/she have serious difficulty seeing even when wearing glasses? Answer Date of Assessment Author No 11/29/2023 9:28 AM EDT Haylie Krishnan [place] * Does this person have serious difficulty walking or climbing stairs? Answer Date of Assessment Author No 11/29/2023 9:28 AM EDT Haylie Krishnan [place] * Does this person have difficulty dressing or bathing? Answer Date of Assessment Author No 11/29/2023 9:28 AM EDT Haylie Krishnan [place] * Because of a physical, mental or emotional condition, does this person have difficulty doing errands alone such as visiting a doctor's office or shopping? Answer Date of Assessment Author No 11/29/2023 9:28 AM EDT Haylie Krishnan [place] documented as of this encounter Mental Status [...] by mouth every 12 hours. 20 Tablet 12/01/2023 04/29/2024 documented in this encounter Plan of Treatment Upcoming Encounters Date Type Department Care Team (Late st Contact Info) Description 06/28/2024 9:40 AM EST Clinical Support ANTOLIN SEPULVEDA [address] [place] [phone] 11/19/2024 1:40 PM EDT Office Visit [facility] Neurology [facility] [address] [facility] [place] [phone] Lyndsay Brewer, DO [address] [place] [address] documented as of this encounter [...] Tablet by mouth every 12 hours. Reorder 09/25/2023 12/01/2023 documented as of this encounter Additional Health Concerns Infection Onset Date Last Indicated Resolved Time INFLUENZA 11/23/2023 11/29/2023 12/13/2023 10:1 2 PM EDT documented as of this encounter Care Teams Cut Out Operator Relationship Specialty Start Date End Date Steffanie Fulton APRN [address] [place] [address] PCP - General Nurse Practitioner 07/26/21 documented as of this encounter
--- OUTSIDE RECORDS SUMMARY | 2024-05-29 15:35 | XMS_ITS | Encounter Summary ---
Author Organization [place] [address] Care Team Providers Care In House Cra Name Role Phone Steffanie Fulton APRN Primary Care Provider +1- [phone] Reason for Visit * Reason Comments Fever Congestion Encounter Details Date Type Department Care Team (Late st Contact Info) Description 11/23/2023 11:30 AM EDT Office Visit [facility] [address] [place] [phone] Lucy Angulo APRN [address] [place] [address] Acute cough (Primary Dx); Wheezing; Acute bronchitis, unspecified organism; COPD, moderate (HCC) Social History Tobacco Use Types Packs/Day Years [...] Sign Reading Time Taken Comments Blood Pressure 118/82 11/23/2023 11:24 AM EDT Pulse 81 11/23/2023 11:24 AM EDT Temperature 37.1 ??C (98.8 ??F) 11/23/2023 11:24 AM E DT Respiratory Rate - - Oxygen Saturation 94% 11/23/2023 11:24 AM EDT Inhaled Oxygen Concentration - - Weight 98.4 kg (217 lb) 11/23/2023 11:24 AM EDT Height 170.2 cm (5' 7 ) 11/23/2023 11:24 AM EDT Body Mass Index 33.99 11/23/2023 11:24 AM EDT documented in this encounter Functional [...] Filled Start Date End Date predniSONE (DELTASONE) 20 mg Oral TabletIndications: Acute cough Take 1 Tablet by mouth 2 times daily for 5 days. 10 Tablet 11/23/2023 11/28/2023 doxycycline hyclate (VIBRA-TABS) 100 mg Oral TabletIndications: Wheezing,Acute bronchitis, unspecified organism Take 1 Tablet by mouth 2 times daily for 10 days. 20 Tablet 11/23/2023 12/03/2023 documented in this encounter Progress Notes * Lucy Angulo, KINDERGARTEN TEACHER - 11/23/2023 11:30 AM EDT Vitals: 11/23/23 1124 BP: 118/82 Pulse: 81 Temp: 98.8 ??F (37.1 ??C) TempSrc: Temporal SpO2: 94% Weight: 217 lb (98.4 kg) Height: 5' 7 (1.702 m) Body mass index is 33.99 kg/m??. SUBJECTIVE: Chief Complaint Patient presents with ??? Fever ??? Congestion HPI: URI/Sinus symptoms: complains of congestion, sore throat, productive cough, and fever for 2 days. Associated symptoms include fatigue. Symptom severity is described as Moderate and are worsening. What treatments have you tried at home? tylenol Are home treatments impacting your symptoms at all? some Do you get recurrent or seasonal symptoms multiple times per year? yes Do you have any history of lung disease, asthma, or recurrent allergies? yes The Patient does not smoke cigarettes. Fever at night. Review of Systems Constitutional: Positive for fever. HENT: Positive for congestion. Respiratory: Positive for cough, shortness of breath and wheezing. OBJECTIVE: Physical Exam Vitals and nursing note reviewed. HENT: Mouth/Throat: Mouth: Mucous membranes are moist. Pharynx: Oropharynx is clear. Cardiovascular: Rate and Rhythm: Normal rate and regular rhythm. Pulses: Normal pulses. Heart sounds: Normal heart sounds. Pulmonary: Effort: Pulmonary effort is normal. Breath sounds: Wheezing present. Abdominal: General: Bowel sounds are normal. Palpations: Abdomen is soft. Assessment Diagnoses and all orders for this visit: Acute cough - POCT JOSIE INFLUENZA A/B - predniSONE (DELTASONE) 20 mg Oral Tablet; Take 1 Tablet by mouth 2 times daily for 5 days. Dispense: 10 Tablet; Refill: 0 - POCT JOSIE SARS ANTIGEN - POCT RAPID STREP A Wheezing - doxycycline hyclate (VIBRA-TABS) 100 mg Oral Tablet; Take 1 Tablet by mouth 2 times daily for 10 days. Dispense: 20 Tablet; Refill: 0 - POCT JOSIE SARS ANTIGEN - POCT RAPID STREP A Acute bronchitis, unspecified organism - doxycycline hyclate (VIBRA-TABS) 100 mg Oral Tablet; Take 1 Tablet by mouth 2 times daily for 10 days. Dispense: 20 Tablet; Refill: 0 - POCT JOSIE SARS ANTIGEN - POCT RAPID STREP A COPD, moderate (HCC) (Chronic) Antibiotic as directed. Steroids as directed. Use the inhaler as previously prescribed. Drink plenty of fluids. Follow-up or return if symptoms persist or worsen. documented in this encounter Plan of Treatment Upcoming Encounters Date Type Department Care Team (Late st Contact Info) Description 06/28/2024 9:40 AM EST Clinical Support [facility] [address] [employer] [place] [address] 11/19/2024 1:40 PM EDT Office Visit [facility] Neurology [facility] [address] [place] [address] Lyndsay Brewer DO [address] [place] [address] documented as of this encounter [...] Priority Date/Time Associated Diagnosis Comments POCT JOSIE INFLUENZA A/B Routine 11/23/2023 11:38 AM EDT Acute cough POCT JOSIE SARS ANTIGEN Routine 11/23/2023 11:34 AM EDT Acute cough Wheezing Acute bronchitis, unspecified organism POCT RAPID STREP A Routine 11/23/2023 11 :33 AM EDT Acute cough Wheezing Acute bronchitis, unspecified organism documented in this encounter Results * (ABNORMAL) POCT JOSIE INFLUENZA A/B (11/23/2023 11:38 AM EDT) Influenza A Antigen Negative Negative 11/23/2023 11:46 AM EDT [facility] Influenza B Antigen Positive(A) Negative 11/23/2023 11:46 AM EDT [facility] Swab SPECIMEN FROM NASOPHARYNGEAL STRUCTURE / Unknown 11/23/2023 11:38 AM EDT 11/23/2023 11:46 AM EDT Lucy Angulo APRN POINT OF CARE TEST ORDER RAMESH Final Result [facility] [address] [facility] [place] [address] * POCT JOSIE SARS ANTIGEN (11/23/2023 11:34 AM EDT) SARS Antigen Negative Negative SEP OFFICE Lot Number SEP OFFICE Expiration Date SEP OFFICE SeriAl # SEP OFFICE Control Line Yes YES/NO SEP OFFICE 11/23/2023 11:3 4 AM EDT Lucy Angulo APRN POINT OF CARE TEST ORDER RAMESH Final Result SEP [facility] * POCT RAPID STREP A (11/23/2023 11:33 AM EDT) Strep A Ag None Detected None Detected Pos/Neg SEP OFFICE Lot Number SEP OFFICE Expiration Date SEP OFFICE SeriAl # SEP OFFICE Control Line Yes YES/NO SEP OFFICE 11/23/2023 11:3 3 AM EDT Lucy Angulo KINDERGARTEN TEACHER POINT OF CARE TEST ORDER RAMESH Final Result [facility] documented in this encounter Visit Diagnoses Diagnosis Acute cough- Primary Wheezing Acute bronchitis, unspecified organism COPD, moderate (HCC) Chronic airway obstruction, not elsewhere classified documented in this encounter Additional Health Concerns Infection Onset Date Last Indicated Resolved Time INFLUENZA 11/23/2023 11/29/2023 12/13/2023 10:1 2 PM EDT documented as of this encounter Care Teams In House Cra Relationship Specialty Start Date End Date Steffanie Fulton APRN [address] [place] [address] PCP - General Nurse Practitioner 07/26/21 documented as of this encounter
--- OUTSIDE RECORDS SUMMARY | 2024-05-29 15:35 | XMS_ITS | Encounter Summary ---
Author Organization [facility] [place] [address] Care Team Providers Care Asw Specialist Name Role Phone Steffanie Fulton APRN Primary Care Provider +1- [phone] Encounter Details Date Type Department Care Team (Latest Contact Info) Description 11/27/2023 Travel Social History Tobacco Use Types Packs/Day [...] Ligia Casper MA documented in this encounter Plan of Treatment Upcoming Encounters Date Type Department Care Team (Late st Contact Info) Description 06/28/2024 9:40 AM EST Clinical Support [facility] [address] [place] [address] 11/19/2024 1:40 PM EDT Office Visit SE[facility] Neurology [facility] [address] [place] [address] Lyndsay Brewer DO [address] [place] [address] documented as of this encounter [...] documented as of this encounter Care Teams Asw Specialist Relationship Specialty Start Date End Date Steffanie Fulton APRN [address] [place] [address] PCP - General Nurse Practitioner 07/26/21 documented as of this encounter
--- OUTSIDE RECORDS SUMMARY | 2024-05-29 15:35 | XMS_ITS | Encounter Summary ---
Author Organization [place] [address] Care Team Providers Care Reworker Name Role Phone Kirstin Steffanie YOLI Primary Care Provider +1- [phone] Reason for Visit * Reason Comments Medication Refill Encounter Details Date Type Department Care Team (Late st Contact Info) Description 12/01/2023 Refill [facility] [address] [place] [phone] Steffanie FultonYOLI [address] [place] [address] Medication Refill Social History Tobacco Use Types [...] Author No 11/29/2023 9:28 AM EDT Eulogio [place] * Is the person blind or does he/she have serious difficulty seeing even when wearing glasses? Answer Date of Assessment Author No 11/29/2023 9:28 AM EDT Eulogio [place] * Does this person have serious difficulty walking or climbing stairs? Answer Date of Assessment Author No 11/29/2023 9:28 AM EDT [facility] [place] * Does this person have difficulty dressing or bathing? Answer Date of Assessment Author No 11/29/2023 9:28 AM EDT [facility] [place] * Because of a physical, mental or emotional condition, does this person have difficulty doing errands alone such as visiting a doctor's office or shopping? Answer Date of Assessment Author No 11/29/2023 9:28 AM EDT Eulogio [place] documented as of this encounter Mental Status * Because of a physical, mental or emotional condition, does this person have serious difficulty concentrating, remembering or making decisions? Answer Entry Date Author No 11/29/2023 9:28 AM EDT Eulogio [place] documented in this encounter Ordered Prescriptions Prescription Sig Dispense Quantity Refills Last Filled Start Date End Date budesonide-formote roL (SYMBICORT) 160-4.5 mcg/actuation Inhl HFA Aerosol InhalerIndications :History of asthma INHALE 2 PUFFS INTO THE LUNGS TWICE A DAY 30.6 Each 1 12/01/2023 05/09/2024 documented in this encounter Miscellaneous Notes * Telephone Encounter - King Delmy Hermilo Veliz - 12/01/2023 11:40 AM EDT Symbicort Medication Refill Protocol passed. [facility] Action: Approved 90 day supply with sufficient refills to noted follow-up date by provider or protocol if no follow-up date noted, not to exceed 90 days past that date. 11/22 dx COPD documented in this encounter Plan of Treatment Upcoming Encounters Date Type Department Care Team (Late st Contact Info) Description 06/28/2024 9:40 AM EST Clinical Support [facility] [address] [place] [address] 11/19/2024 1:40 PM EDT Office Visit SEP Neurology [facility] [address] [place] [address] Lyndsay Brewer DO [address] [place] [address] documented as of this encounter [...] Inhl HFA Aerosol InhalerIndications:Histo ry of asthma Inhale 2 Puffs into the lungs 2 times daily. 11/23/2022 12/01/2023 documented as of this encounter Additional Health Concerns Infection Onset Date Last Indicated Resolved Time INFLUENZA 11/23/2023 11/29/2023 12/13/2023 10:1 2 PM EDT documented as of this encounter Care Teams Reworker Relationship Specialty Start Date End Date Steffanie Fulton APRN [address] [place] [address] PCP - General Nurse Practitioner 07/26/21 documented as of this encounter
--- OUTSIDE RECORDS SUMMARY | 2024-05-29 15:35 | XMS_ITS | Encounter Summary ---
Author Organization [place] [address] Care Team Providers Care Lan Analyst Name Role Phone Steffanie Fulton APRN Primary Care Provider +1- [phone] Reason for Visit * Reason Comments Medication Refill Encounter Details Date Type Department Care Team (Late st Contact Info) Description 10/29/2023 Refill [facility] [address] [place] [address] Marcela De Leon MD Medication [...] MOUTH EVERY DAY AT NIGHT [address] 10/31/2023 4 documented in this encounter Miscellaneous Notes * Telephone Encounter - Scott Crystal CPhT - 10/31/2023 7:38 AM EDT Flomax - Medication Refill Protocol passed. [email or web address] [email or web address] Action: Approved 90-day supply with sufficient refills to cover patient until scheduled appointment on 11/29/23, and not exceeding 90 days past that date. documented in this encounter Plan of Treatment Upcoming Encounters Date Type Department Care Team (Late st Contact Info) Description 06/28/2024 9:40 AM EST Clinical Support [facility] [address] [phone] 11/19/2024 1:40 PM EDT Office Visit SEP Neurology [facility] [address] [place] [address] Lyndsay Brewer, DO [address] [place] [address] documented as of this encounter [...] CAPSULES BY MOUTH EVERY DAY AT NIGHT 09/26/2023 10/31/2023 documented as of this encounter Care Teams Lan Analyst Relationship Specialty Start Date End Date Steffanie Fulton APRN [address] [place] [address] PCP - General Nurse Practitioner 07/26/21 documented as of this encounter
--- OUTSIDE RECORDS SUMMARY | 2024-05-29 15:35 | XMS_ITS | Encounter Summary ---
Author Organization [place] [address] Care Team Providers Care Principal Solutions Architect Name Role Phone Kirstin Steffanie KENT Primary Care Provider +1- [phone] Reason for Visit * Reason Onset Date Comments Central Patient Navigator Outreach 11/28/2023 AWV Questionnaire Encounter Details Date Type Department Care Team ([facility] Contact Info) Description 11/28/2023 Patient Outreach SEP [facility] [address] [place], [place] [id number] Steffanie Fulton APRN [address] [place] [address] Central Patient Navigator Outreach (AWV Questionnaire/) Social History Tobacco Use Types Packs/Day Years [...] Ligia Gonzales MA documented in this encounter Progress Notes * Lela Hanna - 11/29/2023 8:05 AM EDT Patient Outreach: Pre-Visit Questionnaires Attempt Count: inbound Care Gaps Addressed adult secondary education instructor: Medicare Questionnaire Outcome: Medicare Questionnaire completed * Deepthi Ham - 11/28/2023 9:12 AM EDT Patient Outreach: Pre-Visit Questionnaires Attempt Count: 1st Care Gaps Addressed adult secondary education instructor: Medicare Questionnaire Outcome: Left message to return call at and MyChart Message Sent documented in this encounter Plan of Treatment Upcoming Encounters Date Type Department Care Team (Late st Contact Info) Description 06/28/2024 9:40 AM EST Clinical Support [facility] [address] [place] [phone] 11/19/2024 1:40 PM EDT Office Visit SEP Neurology [facility] [address] [place] [address] Lyndsay Brewer, [address] [place] [address] documented as of this encounter [...] documented as of this encounter Care Teams Principal Solutions Architect Relationship Specialty Start Date End Date Steffanie Fulton APRN [address] [place] [id number] PCP - General Nurse Practitioner 07/26/21 documented as of this encounter
--- OUTSIDE RECORDS SUMMARY | 2024-05-29 15:35 | XMS_ITS | Encounter Summary ---
Author Organization [facility] [place] [address] Care Team Providers Care Options Advisor Name Role Phone Steffanie Fulton APRN Primary Care Provider +1- [phone] Encounter Details Date Type Department Care Team (Latest Contact Info) Description 11/07/2023 Travel Social History Tobacco Use Types Packs/Day [...] AM EST Clinical Support [facility]P [facility] [address] [place] [address] 11/19/2024 1:40 PM EDT Office Visit SEP Neurology [facility] [address] [address] Lyndsay Brewer DO [address] [place] [address] documented as of this encounter Goals Goal Patient Goal Type Associated Problems Recent Progress Patient-Stated? Author Blood Pressure < 140/90 Blood Pressure 134/84(2023 1:16 PM EST) No Yana Choi RMA Eat better, exercise, reach an ideal body weight General No Choi, Yana G, RMA Stay Tobacco Free Lifestyle No Yana Choi RMA documented as of this encounter Visit Diagnoses Not on filedocumented in this encounter Care Teams Options Advisor Relationship Specialty Start Date End Date Steffanie Fulton APRN [address] [place] [id number] PCP - General Nurse Practitioner 07/26/21 documented as of this encounter
--- OUTSIDE RECORDS SUMMARY | 2024-05-29 15:35 | XMS_ITS | Encounter Summary ---
Author Organization [place] [address] Care Team Providers Care Turkey Picker Name Role Phone KirstinEliel YOLI Primary Care Provider [phone] Reason for Visit * Reason Comments Medicare Annual Wellness Encounter Details Date Type Department Care Team (Late st Contact Info) Description 11/29/2023 9:45 AM EDT Office Visit [facility] [address] [place] [phone] Eliel Fulton APRN [address] [place] [address] Influenza (Primary Dx); Acute bronchitis, unspecified organism; Psoriasis; Essential hypertension; Annual physical exam Social History Tobacco Use Types Packs/Day Years [...] Reading Time Taken Comments Blood Pressure 132/78 11/29/2023 9:29 AM EDT Pulse 75 11/29/2023 9:29 AM EDT Temperature 36.8 ??C (98.3 ??F) 11/29/2023 9:29 AM ED T Respiratory Rate - - Oxygen Saturation 96% 11/29/2023 9:29 AM EDT Inhaled Oxygen Concentration - - Weight 98.9 kg (218 lb) 11/29/2023 9:29 AM EDT Height 170.2 cm (5' 7 ) 11/29/2023 9:29 AM EDT Body Mass Index 34.14 11/29/2023 9:29 AM EDT documented in this [...] End Date losartan (COZAAR) 50 mg Oral TabletIndications :Essential hypertension Take 1 Tablet by mouth 2 times daily. 180 Tablet 2 11/29/2023 montelukast (SINGULAIR) 10 mg Oral TabletIndications :Annual physical exam Take 1 Tablet by mouth nightly. 90 Tablet 2 11/29/2023 hydroCHLOROthiazi de (MICROZIDE) 12.5 mg Oral CapsuleIndication s:Essential hypertension Take 1 Capsule by mouth daily. 90 Capsule 2 11/29/2023 pantoprazole (PROTONIX) 40 mg Oral Tablet, Delayed Release (E.C.)Indications :Annual physical exam Take 1 Tablet by mouth daily. 90 Tablet 3 11/29/2023 amLODIPine (NORVASC) 5 mg Oral TabletIndications :Essential hypertension Take 1 Tablet by mouth daily. 90 Tablet 2 11/29/2023 atorvastatin (LIPITOR) 40 mg Oral TabletIndications :Essential hypertension Take 1 Tablet by mouth nightly. 90 Tablet 2 11/29/2023 albuterol (PROVENTIL) 2.5 mg /3 mL (0.083 %) Inhl Solution for NebulizationIndic ations:Influenza, Acute bronchitis, unspecified organism Take 3 mL by nebulization every 4 hours as needed for Wheezing. 150 mL 1 11/29/2023 documented in this encounter Progress Notes * Eliel Fulton APRN - 11/29/2023 9:45 AM EDT Vitals: 11/29/23 0929 BP: 132/78 Pulse: 75 Temp: 98.3 ??F (36.8 ??C) TempSrc: Forehead SpO2: 96% Weight: 218 lb (98.9 kg) Height: 5' 7 (1.702 m) Body mass index is 34.14 kg/m??. SUBJECTIVE: Chief Complaint Patient presents with Medicare Annual Wellness HPI: Medicare Wellness Assessment: Subsequent Annual Medicare Wellness Assessment. Risk Assessments: Fall Risk Assessment Has the patient had any fall with injury in the past year?: No Has the patient had 2 or more falls in the past year?: No Is the patient able to sit without assistance?: Yes Is the patient able to get up without assistance?: Yes Does the patient have a difficult time ambulating when first getting up?: (!) Yes Does the patient have rugs or runners in the home?: No Does the patient have grab bars in the bathroom?: Yes Does the patient have stairs inside or outside of the home?: No (In Office Assessment Only): Is the patient able to ambulate without assistance/device and with a gait steady?: Yes (In Office Assessment Only): TUG test: Time patient going from sitting to standing, walk 10 feet, return to chair and sit. Record time. : Less or equal to 12 seconds Functional Status Assessment Functional Level: self care Functional Mobility Assessment: independent w/o assist device Assessment of transportation needs: still drives most of the time Functional Activities of Daily Living Limitations: No issues Bladder: Do you have issues with your bladder, such as urgency or leaking urine?: No issues Does the patient report issues or concerns regarding hearing?: No Activities of Daily Living Assistive Device Assessment Assistive Devices: Eyeglasses Rx Osteoporosis Screening Assessment Has the patient had a DEXA (Bone Density) scan in the past 2 years?: Not applicable (male) No results found for this or any previous visit. Abnormal Pains Assessment Excluding what you would consider normal aches and pains for your age and medical condition, do youhave any unusual or worrisome pains?: No Opiate Screening Are you currently on opiate or narcotic medications?: No PHQ Depression Screening Results Little interest or pleasure in doing things: 0 Feeling down, depressed, or hopeless: 0 PHQ-2 Total Score: 0 PHQ-9 Total Score: 0 Advanced Directive Evaluation Does the patient have an Advance Directive?: (!) No Advance Care Planning Guide Given?: Yes (For Dementia Screening below can use either AD-8 or Mini Cog. Doesn't require both.) AD-8 Dementia Screening tool results Problems with judgement: 0 Less interest in hobbies/activities: 0 Repeats the same things over and over: 0 Trouble learning how to use a tool, appliance or gadget: 0 Forgets correct month or year: 0 Trouble handling complicated financial affairs: 0 Trouble remembering appointments: (!) 1 Daily problems with thinking and/or memory: 0 Total AD8 score:: 1 Mini Cog Dementia Screening tool results Dementia: Negative Welcome to Medicare Vision Screening Eye Exam : Not applicable/required for Subsequent AWV, only required for Welcome to Medicare Visit Patient Instructions AWV findings and Plan of Care: Recommendations as part of the Personal Plan of Care based on risk screening assessments are: Fall Risk Assessment: Fall Risk Assessment: negative - re-assess in 1 year Functional Status/Social Determinates of Health: stable, no issues, re-assess in 1 year Depression Screening: negative - re-assess in 1 year Dementia Screening: negative - recommend re-assess in 1 year Vaccinations: up to date Exercise/Activity: recommended continuing current Recommended follow up annually for Medicare Annual Wellness Visit. Good preventative health care is important in reducing morbidity and mortality. I recommend exercise regularly as tolerated focusing on strength and balance. I recommend a balanced diet focusing on fruits, veggies, and lean meats. I recommend avoiding having rugs, runners, or other loose trip hazards in the home as these increase fall risk. I recommend installing grab bars in the bathrooms close to toilets, in tubs, and in showers as these are common areas for falls when transitioning from wet surfaces to dry surfaces, or visa versa. This is also an area of the home that is high risk for falls at night. I encourage having an Advanced Directives. This is something we recommend you have on file at home,as well as something that we should have on file in our records. If we don't have a copy of your current Advanced Directive, please bring a copy to your next visit. If you have a power of criminal attorney orsurrogate, we should also have a copy on file. I encourage candid discussion with your family on your wishes in the event that you are incapacitated and unable to participate in direct medical decision making. It is important to stay up to date on recommended vaccinations, please see the health maintenance topics due below and if we have not completed one of those topics today, please consider completing as part of your wellness plan this year. Below are other health maintenance topics that are recommended to be closed at your earliest opportunity. You may notice that some of these were addressed in the office today and will show as resolved in your [employer] account soon. Health Maintenance Due Topic Date Due Hepatitis B Vaccine (1 of 3 - 19+ 3-dose series) Never done COVID-19 Vaccine (2022-24 season) Never done Wellness Exam Medicare 11/24/2023 As part of today's visit the components of the Medicare wellness assessment were completed. These components included reviewing the information available in the risk screening questionnaire that was administered by ancillary staff either today or prior to today's visit (pre-visit planning) and recorded in the Medicare Wellness Assessment Flowsheet in the EMR. I have reviewed the data in regards to fall risk, activities of daily living/functional status, depression screening, dementia screening,and outstanding Health Maintenance topics and edited where necessary. The staff has reviewed and updated the past medical history, social history, family history, allergies, medications, and care team information during the standard rooming process. I have also reviewed this data as part of today'svisit. Below are the findings, recommendations, and Personal Plan of Care. The patient received a copy of their Personal Plan of Care including health maintenance topics thatare recommended to be completed and this can be noted in the after visit summary. The AVS is provided to the patient digitally through their [employer] account or with a paper copy if the patient doesn't have an active [employer] Account. A copy of today's progress note with recommendations below is alsoavailable electronically for patients with an active [employer] account per the Federal Cures Act. TheAVS also contains additional patient education if appropriate on topics common to wellness and their plan of care. History Reviewed: No results found. 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; Service: Orthopedics KNEE SURGERY LEFT ACL RECONSTRUCTION KNEE SURGERY LEFT ARTHROSCOPIES IRRAGATION X 7 FOR INFECTION KNEE SURGERY RIGHT ARTHROSCOPIC MENICUS REPAIR SHOULDER ARTHROSCOPY Right 11/29/2019 RIGHT SHOULDER ARTHROSCOPIC ROTATOR CUFF REPAIR DECOMPRESSION ACROMIOPLASTY, ACROMIOCLAVICULAR JOINT EXCISION; Surgeon: Kenny Loja MD; [facility]; Service: Orthopedics TOTAL HIP ARTHROPLASTY Left [...] needed for Wheezing. 1 Each 2 albuterol (VENTOLIN HFA) 90 mcg/actuation Inhl HFA Aerosol Inhaler INHALE 1 TO 2 PUFFS BY MOUTH EVERY 4 HOURS NEEDED FOR WHEEZING 18 Each 0 betamethasone dipropionate (DIPROLENE) 0.05 % Top Ointment APPLY TO AFFECTED AREA EVERY DAY 15 g 2 celecoxib (CELEBREX) 200 mg Oral Capsule Take 1 Capsule by mouth 2 times daily. 60 Capsule 2 colestipoL (COLESTID) 1 gram Oral Tablet TAKE 1 TABLET BY MOUTH 2 TIMES DAILY. NEEDS AN [id number] Tablet 0 diclofenac (VOLTAREN) 1 % Top Gel APPLY 2 GRAMS TOPICALLY 4 TIMES DAILY DIRECTED. 100 g 1 doxycycline hyclate (VIBRA-TABS) 100 mg Oral Tablet Take 1 Tablet by mouth 2 times daily for 10 days. 20 Tablet 0 fluticasone propionate (FLONASE) 50 mcg/actuation [place], Suspension SPRAY 1 SPRAY INTO EACH NOSTRIL EVERY DAY 32 mL 1 methylPREDNISolone (MEDROL DOSPACK) 4 mg Oral Tablets, Dose Pack See package instructions 21 Tablet0 Nebulizer Accessories (ALL FLOW 4000 KIT) [facility] [place] equivalent 1 Each 0 rifAXIMin (XIFAXAN) 550 mg Oral Tablet Take 1 Tablet by mouth 2 times daily. 9 Tablet 0 rifAXIMin (XIFAXAN) 550 mg Oral Tablet Take 1 Tablet by mouth 3 times daily. 42 Tablet 2 tadalafiL (CIALIS) 5 mg Oral Tablet TAKE 1 TAB BY MOUTH NEEDED. FOR ERECTILE DYSFUNCTION (NOT COVERED) 90 Tablet 2 tamsulosin (FLOMAX) 0.4 mg Oral Capsule TAKE 2 CAPSULES BY MOUTH EVERY DAY AT NIGHT 180 Capsule 0 tiZANidine (ZANAFLEX) 2 mg Oral Tablet Take 1 Tablet by mouth 3 times daily. 90 Tablet 2 Current Facility-Administered Medications on File Prior to Visit Medication Dose Route Frequency Provider Last Rate Last Admin bupivacaine HCl (MARCAINE) 0.5 % (5 mg/mL) injection 2 mL 2 mL Intra-articular Augie Ramires MD 2 mL at 08/16/21 0941 Social History Socioeconomic History Marital status: Legally [...] Lack of Transportation (Non-Medical): No [facility] Family and Community Support Received from [facility], [facility] Abuse Screen Received from [facility], [facility] Housing Stability Family History Problem Relation Age of Onset Diabetes Mother Heart Disease Mother High Blood Pressure Mother High Cholesterol Mother Cancer Father 40 stomach Other (Diabetes living) Sister 1 sister passed No Known Problems Brother Diabetes Maternal Grandmother No Known Problems Maternal Grandfather Cancer Paternal Grandmother Immunization History Administered Date(s) Administered Influenza Patient Reported 04/21/2010 Influenza Seasonal Injectable 05/07/2008, 03/07/2009 Influenza Vaccine Quadrivalent 03/10/2016, 05/29/2017, 03/20/2018 Influenza Vaccine Quadrivalent PF 06/21/2023 Influenza Vaccine, Unspecified Formulation 03/18/2019 Influenza Virus Vaccine Quadrivalant, Flublok 04/13/2020, 04/25/2022 PPD Test 12/20/2010 Pneumococcal Conjugate Vaccine 20 Valent 11/23/2022 Pneumococcal Polysaccharide 23 Valent 04/21/2010, 03/10/2016 Tdap 01/15/2014, 12/26/2018, 03/18/2019 Zoster Recombinant 11/28/2017, 06/21/2018 Health Maintenance Topic Date Due Hepatitis B Vaccine (1 of 3 - 19+ 3-dose series) Never done COVID-19 Vaccine ( - 2022- season) Never done Wellness Exam Medicare 11/24/2023 Colon Cancer Screening 08/18/2025 DTaP/TDaP/Td (4 - Td or Tdap) 03/18/2029 Influenza Vaccine Completed Zoster Completed Pneumococcal Vaccine 0-64 Completed Patient Care Team: Gastright, Eliel, HOUSE MOVER as PCP - General (Nurse Practitioner) Additional issues addressed today: Review of Systems OBJECTIVE: Physical Exam Assessment Diagnoses and all orders for this visit: Influenza - POCT JOSIE INFLUENZA A/B - albuterol (PROVENTIL) nebulizer solution 2.5 mg - albuterol (PROVENTIL) 2.5 mg /3 mL (0.083 %) Inhl Solution for Nebulization; Take 3 mL by nebulization every 4 hours as needed for Wheezing. Dispense: 150 mL; Refill: 1 - POCT JOSIE SARS ANTIGEN - NM PRESSURIZED/NONPRESSURIZED INHALATION TREATMENT Acute bronchitis, unspecified organism - XR CHEST PA AND LATERAL; Future - POCT JOSIE INFLUENZA A/B - albuterol (PROVENTIL) nebulizer solution 2.5 mg - albuterol (PROVENTIL) 2.5 mg /3 mL (0.083 %) Inhl Solution for Nebulization; Take 3 mL by nebulization every 4 hours as needed for Wheezing. Dispense: 150 mL; Refill: 1 - methylPREDNISolone acetate (DEPO-Medrol) injection 80 mg - NM PRESSURIZED/NONPRESSURIZED INHALATION TREATMENT Psoriasis Essential hypertension - atorvastatin (LIPITOR) 40 mg Oral Tablet; Take 1 Tablet by mouth nightly. Dispense: 90 Tablet; Refill: 2 - amLODIPine (NORVASC) 5 mg Oral Tablet; Take 1 Tablet by mouth daily. Dispense: 90 Tablet; Refill:2 - hydroCHLOROthiazide (MICROZIDE) 12.5 mg Oral Capsule; Take 1 Capsule by mouth daily. Dispense: 90Capsule; Refill: 2 - losartan (COZAAR) 50 mg Oral Tablet; Take 1 Tablet by mouth 2 times daily. Dispense: 180 Tablet; Refill: 2 Annual physical exam - pantoprazole (PROTONIX) 40 mg Oral Tablet, Delayed Release (E.C.); Take 1 Tablet by mouth daily. Dispense: 90 Tablet; Refill: 3 - montelukast (SINGULAIR) 10 mg Oral Tablet; Take 1 Tablet by mouth nightly. Dispense: 90 Tablet; Refill: 2 * Eliel Fulton APRN - 11/29/2023 9:45 AM EDT Vitals: 11/29/23 0929 BP: 132/78 Pulse: 75 Temp: 98.3 ??F (36.8 ??C) TempSrc: Forehead SpO2: 96% Weight: 218 lb (98.9 kg) Height: 5' 7 (1.702 m) Body mass index is 34.14 kg/m??. SUBJECTIVE: Chief Complaint Patient presents with Medicare Annual Wellness HPI: Medicare Wellness Assessment: Subsequent Annual Medicare Wellness Assessment. Risk Assessments: Fall Risk Assessment Has the patient had any fall with injury in the past year?: No Has the patient had 2 or more falls in the past year?: No Is the patient able to sit without assistance?: Yes Is the patient able to get up without assistance?: Yes Does the patient have a difficult time ambulating when first getting up?: (!) Yes Does the patient have rugs or runners in the home?: No Does the patient have grab bars in the bathroom?: Yes Does the patient have stairs inside or outside of the home?: No (In Office Assessment Only): Is the patient able to ambulate without assistance/device and with a gait steady?: Yes (In Office Assessment Only): TUG test: Time patient going from sitting to standing, walk 10 feet, return to chair and sit. Record time. : Less or equal to 12 seconds Functional Status Assessment Functional Level: self care Functional Mobility Assessment: independent w/o assist device Assessment of transportation needs: still drives most of the time Functional Activities of Daily Living Limitations: No issues Bladder: Do you have issues with your bladder, such as urgency or leaking urine?: No issues Does the patient report issues or concerns regarding hearing?: No Activities of Daily Living Assistive Device Assessment Assistive Devices: Eyeglasses Rx Osteoporosis Screening Assessment Has the patient had a DEXA (Bone Density) scan in the past 2 years?: Not applicable (male) No results found for this or any previous visit. Abnormal Pains Assessment Excluding what you would consider normal aches and pains for your age and medical condition, do youhave any unusual or worrisome pains?: No Opiate Screening Are you currently on opiate or narcotic medications?: No PHQ Depression Screening Results Little interest or pleasure in doing things: 0 Feeling down, depressed, or hopeless: 0 PHQ-2 Total Score: 0 PHQ-9 Total Score: 0 Advanced Directive Evaluation Does the patient have an Advance Directive?: (!) No Advance Care Planning Guide Given?: Yes (For Dementia Screening below can use either AD-8 or Mini Cog. Doesn't require both.) AD-8 Dementia Screening tool results Problems with judgement: 0 Less interest in hobbies/activities: 0 Repeats the same things over and over: 0 Trouble learning how to use a tool, appliance or gadget: 0 Forgets correct month or year: 0 Trouble handling complicated financial affairs: 0 Trouble remembering appointments: (!) 1 Daily problems with thinking and/or memory: 0 Total AD8 score:: 1 Mini Cog Dementia Screening tool results Dementia: Negative Welcome to Medicare Vision Screening Eye Exam : Not applicable/required for Subsequent AWV, only required for Welcome to Medicare Visit Patient Instructions AWV findings and Plan of Care: Recommendations as part of the Personal Plan of Care based on risk screening assessments are: Fall Risk Assessment: Fall Risk Assessment: negative - re-assess in 1 year Functional Status/Social Determinates of Health: stable, no issues, re-assess in 1 year Depression Screening: negative - re-assess in 1 year Dementia Screening: negative - recommend re-assess in 1 year Vaccinations: patient declined all vaccines today Exercise/Activity: recommended continuing current Recommended follow up annually for Medicare Annual Wellness Visit. Good preventative health care is important in reducing morbidity and mortality. I recommend exercise regularly as tolerated focusing on strength and balance. I recommend a balanced diet focusing on fruits, veggies, and lean meats. I recommend avoiding having rugs, runners, or other loose trip hazards in the home as these increase fall risk. I recommend installing grab bars in the bathrooms close to toilets, in tubs, and in showers as these are common areas for falls when transitioning from wet surfaces to dry surfaces, or visa versa. This is also an area of the home that is high risk for falls at night. I encourage having an Advanced Directives. This is something we recommend you have on file at home,as well as something that we should have on file in our records. If we don't have a copy of your current Advanced Directive, please bring a copy to your next visit. If you have a power of criminal attorney orsurrogate, we should also have a copy on file. I encourage candid discussion with your family on your wishes in the event that you are incapacitated and unable to participate in direct medical decision making. It is important to stay up to date on recommended vaccinations, please see the health maintenance topics due below and if we have not completed one of those topics today, please consider completing as part of your wellness plan this year. Below are other health maintenance topics that are recommended to be closed at your earliest opportunity. You may notice that some of these were addressed in the office today and will show as resolved in your [employer] account soon. Health Maintenance Due Topic Date Due Hepatitis B Vaccine (1 of - 19+ 3-dose series) Never done COVID-19 Vaccine (2022- season) Never done Wellness Exam Medicare 11/24/2023 As part of today's visit the components of the Medicare wellness assessment were completed. These components included reviewing the information available in the risk screening questionnaire that was administered by ancillary staff either today or prior to today's visit (pre-visit planning) and recorded in the Medicare Wellness Assessment Flowsheet in the EMR. I have reviewed the data in regards to fall risk, activities of daily living/functional status, depression screening, dementia screening,and outstanding Health Maintenance topics and edited where necessary. The staff has reviewed and updated the past medical history, social history, family history, allergies, medications, and care team information during the standard rooming process. I have also reviewed this data as part of today'svisit. Below are the findings, recommendations, and Personal Plan of Care. The patient received a copy of their Personal Plan of Care including health maintenance topics thatare recommended to be completed and this can be noted in the after visit summary. The AVS is provided to the patient digitally through their [employer] account or with a paper copy if the patient doesn't have an active [employer] Account. A copy of today's progress note with recommendations below is alsoavailable electronically for patients with an active [employer] account per the Federal Cures Act. TheAVS also contains additional patient education if appropriate on topics common to wellness and their plan of care. History Reviewed: No results found. Results for orders placed or performed in visit on 11/29/23 POCT JOSIE INFLUENZA A/B Result Value Ref Range Influenza A Antigen Negative Negative Influenza B Antigen Positive (A) Negative POCT JOSIE SARS ANTIGEN Result Value Ref Range SARS Antigen Negative Negative Lot Number Expiration Date SeriAl # Control Line Yes YES/NO Patient Active Problem List Diagnosis Hip pain, left Essential hypertension Eczema OA (osteoarthritis) Asthma EPHRAIM (generalized anxiety disorder) BPH with urinary obstruction Status post left hip replacement Irritable bowel syndrome with diarrhea recovery manager Rectal bleeding Diarrhea Polyp of colon COVID-19 COPD, moderate (HCC) Nodule of right lung Past Medical History: Diagnosis Date Arthritis Asthma [...] JOINT EXCISION; Surgeon: Kenny Loja MD; Location: [facility]; Service: Orthopedics TOTAL HIP ARTHROPLASTY Left [...] needed for Wheezing. 1 Each 2 albuterol (VENTOLIN HFA) 90 mcg/actuation Inhl HFA Aerosol Inhaler INHALE 1 TO 2 PUFFS BY MOUTH EVERY 4 HOURS NEEDED FOR WHEEZING 18 Each 0 betamethasone dipropionate (DIPROLENE) 0.05 % Top Ointment APPLY TO AFFECTED AREA EVERY DAY 15 g 2 celecoxib (CELEBREX) 200 mg Oral Capsule Take 1 Capsule by mouth 2 times daily. 60 Capsule 2 colestipoL (COLESTID) 1 gram Oral Tablet TAKE 1 TABLET BY MOUTH 2 TIMES DAILY. NEEDS AN [id number] Tablet 0 diclofenac (VOLTAREN) 1 % Top Gel APPLY 2 GRAMS TOPICALLY 4 TIMES DAILY DIRECTED. 100 g 1 doxycycline hyclate (VIBRA-TABS) 100 mg Oral Tablet Take 1 Tablet by mouth 2 times daily for 10 days. 20 Tablet 0 fluticasone propionate (FLONASE) 50 mcg/actuation Nasl [place], Suspension SPRAY 1 SPRAY INTO EACH NOSTRIL EVERY DAY 32 mL 1 methylPREDNISolone (MEDROL DOSPACK) 4 mg Oral Tablets, Dose Pack See package instructions 21 Tablet0 Nebulizer Accessories (ALL FLOW 4000 KIT) [facility] [place] Formulary equivalent 1 Each 0 rifAXIMin (XIFAXAN) 550 mg Oral Tablet Take 1 Tablet by mouth 2 times daily. 9 Tablet 0 rifAXIMin (XIFAXAN) 550 mg Oral Tablet Take 1 Tablet by mouth 3 times daily. 42 Tablet 2 tadalafiL (CIALIS) 5 mg Oral Tablet TAKE 1 TAB BY MOUTH NEEDED. FOR ERECTILE DYSFUNCTION (NOT COVERED) 90 Tablet 2 tamsulosin (FLOMAX) 0.4 mg Oral Capsule TAKE 2 CAPSULES BY MOUTH EVERY DAY AT NIGHT 180 Capsule 0 tiZANidine (ZANAFLEX) 2 mg Oral Tablet Take 1 Tablet by mouth 3 times daily. 90 Tablet 2 Current Facility-Administered Medications on File Prior to [...] Lack of Transportation (Non-Medical): No [facility] Family and Community Support Received from [facility] Abuse Screen Received from [facility] Housing Stability Family History Problem Relation Age of Onset Diabetes Mother Heart Disease Mother High Blood Pressure Mother High Cholesterol Mother Cancer Father 40 stomach Other (Diabetes living) Sister 1 sister passed No Known Problems Brother Diabetes Maternal Grandmother No Known Problems Maternal Grandfather Cancer Paternal Grandmother Immunization History Administered Date(s) Administered Influenza Patient Reported 04/21/2010 Influenza Seasonal Injectable 05/07/2008, 03/07/2009 Influenza Vaccine Quadrivalent 03/10/2016, 05/29/2017, 03/20/2018 Influenza Vaccine Quadrivalent PF 06/21/2023 Influenza Vaccine, Unspecified Formulation 03/18/2019 Influenza Virus Vaccine Quadrivalant, Flublok 04/13/2020, 04/25/2022 PPD Test 12/20/2010 Pneumococcal Conjugate Vaccine 20 Valent 11/23/2022 Pneumococcal Polysaccharide 23 Valent 04/21/2010, 03/10/2016 Tdap 01/15/2014, 12/26/2018, 03/18/2019 Zoster Recombinant 11/28/2017, 06/21/2018 Health Maintenance Topic Date Due Hepatitis B Vaccine (1 of 3 - 19+ 3-dose series) Never done COVID-19 Vaccine ( - season) Never done Wellness Exam Medicare 11/24/2023 Colon Cancer Screening 08/18/2025 DTaP/TDaP/Td (4 - Td or Tdap) 03/18/2029 Influenza Vaccine Completed Zoster Completed Pneumococcal Vaccine 0-64 Completed Patient Care Team: Eliel Fulton APRN as PCP - General (Nurse Practitioner) Additional issues addressed today: Review of Systems Constitutional: Negative. HENT: Positive for congestion. Respiratory: Positive for cough and wheezing. Cardiovascular: Negative. OBJECTIVE: Physical Exam Assessment Diagnoses and all orders for this visit: Influenza - POCT JOSIE INFLUENZA A/B - albuterol (PROVENTIL) nebulizer solution 2.5 mg - albuterol (PROVENTIL) 2.5 mg /3 mL (0.083 %) Inhl Solution for Nebulization; Take 3 mL by nebulization every 4 hours as needed for Wheezing. Dispense: 150 mL; Refill: 1 - POCT JOSIE SARS ANTIGEN - NM PRESSURIZED/NONPRESSURIZED INHALATION TREATMENT Acute bronchitis, unspecified organism - XR CHEST PA AND LATERAL; Future - POCT JOSIE INFLUENZA A/B - albuterol (PROVENTIL) nebulizer solution 2.5 mg - albuterol (PROVENTIL) 2.5 mg /3 mL (0.083 %) Inhl Solution for Nebulization; Take 3 mL by nebulization every 4 hours as needed for Wheezing. Dispense: 150 mL; Refill: 1 - methylPREDNISolone acetate (DEPO-Medrol) injection 80 mg - NM PRESSURIZED/NONPRESSURIZED INHALATION TREATMENT Psoriasis Essential hypertension - atorvastatin (LIPITOR) 40 mg Oral Tablet; Take 1 Tablet by mouth nightly. Dispense: 90 Tablet; Refill: 2 - amLODIPine (NORVASC) 5 mg Oral Tablet; Take 1 Tablet by mouth daily. Dispense: 90 Tablet; Refill:2 - hydroCHLOROthiazide (MICROZIDE) 12.5 mg Oral Capsule; Take 1 Capsule by mouth daily. Dispense: 90Capsule; Refill: 2 - losartan (COZAAR) 50 mg Oral Tablet; Take 1 Tablet by mouth 2 times daily. Dispense: 180 Tablet; Refill: 2 Annual physical exam - pantoprazole (PROTONIX) 40 mg Oral Tablet, Delayed Release (E.C.); Take 1 Tablet by mouth daily. Dispense: 90 Tablet; Refill: 3 - montelukast (SINGULAIR) 10 mg Oral Tablet; Take 1 Tablet by mouth nightly. Dispense: 90 Tablet; Refill: 2 documented in this encounter Miscellaneous Notes * Addendum Note - Eliel Fulton APRN - 11/29/2023 9:45 AM EDTAddended by: ELIEL FULTON on: 12/12/2023 06:04 PM Modules accepted: Level of Service documented in this encounter Plan of Treatment Upcoming Encounters Date Type Department Care Team (Late st Contact Info) Description 06/28/2024 9:40 AM EST Clinical Support [facility] [address] [place] [id number] 11/19/2024 1:40 PM EDT Office Visit SEP Neurology [facility] [address] [place] [address] Lyndsay Brewer [address] [facility] [address] [place] [address] Scheduled Orders Name Type Priority Associated Diagnoses Orde r Schedule NM PRESSURIZED/NONPRESSURI ZED INHALATION TREATMENT NM Charge Routine Influenza Acute bronchitis, unspecified organism Ordered: 11/29/2023 documented as of this encounter Goals Goal [...] Diagnosis Comments POCT JOSIE SARS ANTIGEN Routine 11/29/2023 10:01 AM EDT Influenza POCT JOSIE INFLUENZA A/B Routine 11/29/2023 9:35 AM EDT Influenza Acute bronchitis, unspecified organism documented in this encounter Results * XR CHEST PA AND LATERAL (11/29/2023 10:11 AM EDT) Anatomical Region Laterality Modality Chest Radiographic Pauly ging 11/29/2023 10:1 1 AM EDT Impressions 11/29/2023 10:26 AM EDT No acute finding. Chronic right upper lobe opacities. - Note: Radiology results need to be interpreted within a comprehensive clinical context. ??If you have questions about the radiology report, please contact the office of the ordering clinician. Narrative 11/29/2023 10:26 AM EDT PA AND LATERAL CHEST X-RAY, ??11/29/2023 10:11 AM CLINICAL HISTORY: ??J20.9-Acute bronchitis, [id number] COMPARISON: ??10/13/2021 PROCEDURE COMMENTS: Frontal and lateral views of the chest. FINDINGS: Heart size normal. Right upper lobe chronic opacities. No dense consolidation, effusion. Procedure Note Garry Leos MD - 11/29/2023 PA AND LATERAL CHEST X-RAY, 11/29/2023 10:11 AM CLINICAL HISTORY: J20.9-Acute bronchitis, [id number] COMPARISON: 10/13/2021 PROCEDURE COMMENTS: Frontal and lateral views of the chest. FINDINGS: Heart size normal. Right upper lobe chronic opacities. Nodense consolidation, effusion. IMPRESSION: No acute finding. Chronic right upper lobe opacities. - Note: Radiology results need to be interpreted within a comprehensiveclinical context. If you have questions about the radiology report, please contactthe office of the ordering clinician. us Eliel Gastright HOUSE MOVER IMG DIAGNOSTIC IMAGING ORD ERABLES Final Result * POCT JOSIE SARS ANTIGEN (11/29/2023 10:01 AM EDT) SARS Antigen Negative Negative SEP OFFICE Lot Number SEP OFFICE Expiration Date SEP OFFICE SeriAl # SEP OFFICE Control Line Yes YES/NO SEP OFFICE 11/29/2023 10:0 1 AM EDT Eliel Fulton HOUSE MOVER POINT OF CARE TEST ORDERAB LES Final Result Performing Organization Address City/[facility] Co de Phone Number SEP OFFICE * (ABNORMAL) POCT JOSIE INFLUENZA A/B (11/29/2023 9:35 AM EDT) [facility] Influenza A Antigen Negative Negative 11/29/2023 9:43 AM EDT [facility]P [facility] Influenza B Antigen Positive(A) Negative 11/29/2023 9:43 AM EDT [facility] Swab SPECIMEN FROM NASOPHARYNGEAL STRUCTURE / Unknown 11/29/2023 9:35 AM EDT 11/29/2023 9:43 AM EDT Eliel Fulton HOUSE MOVER POINT OF CARE TEST ORDERAB LES Final Result Performing Organization Address City/[facility] Co de Phone Number SEP [facility] [address] [facility] [place] [phone] documented in this encounter Visit Diagnoses Diagnosis Influenza- Primary Influenza with other respiratory manifestations Acute bronchitis, unspecified organism Psoriasis Other psoriasis Essential hypertension Unspecified essential hypertension Annual physical exam Routine general medical examination at a health care facility Acute bronchitis, unspecified organism documented in this encounter Administered Medications Inactive Administered Medications - up to 1 most recent administrations Medication Order MAR Action Action Date Dose Rate Site albuterol (PROVENTIL) nebulizer solution 2.5 mg 2.5 mg, Nebulization, ONCE, 1 dose, On Mon11/29/23 at 1000, Dx: 1. Influenza 2. Acute bronchitis, unspecified organismIndications:Infl uenza,Acute bronchitis, unspecified organism Given 11/29/2023 9:48 AM EDT 2.5 mg methylPREDNISolone acetate (DEPO-Medrol) injection 80 mg 80 mg, Intramuscular, ONCE, 1 dose, On Mon11/29/23 at 1000, Dx: 1. Acute bronchitis, unspecified organismIndications:Acut e bronchitis, unspecified organism Given 11/29/2023 10:00 AM EDT 80 mg Left upper gluteus documented in this encounter Discontinued Medications Medication Sig Discontinue Reason Start Date End Da te albuterol (PROVENTIL) 2.5 mg /3 mL (0.083 %) Inhl Solution for NebulizationIndication s:Bronchitis,Severe asthma without complication, unspecified whether persistent,Wheezing TAKE 3 ML BY NEBULIZATION EVERY 4 HOURS NEEDED FOR WHEEZING Reorder 07/13/2022 11/29/2023 atorvastatin (LIPITOR) 40 mg Oral Tablet Take 1 Tablet by mouth nightly. Reorder 12/06/2022 11/29/2023 amLODIPine (NORVASC) 5 mg Oral TabletIndications:Esse ntial hypertension TAKE 1 TABLET BY MOUTH EVERY DAY Reorder 01/12/2023 11/29/2023 pantoprazole (PROTONIX) 40 mg Oral Tablet, Delayed Release (E.C.) Take 1 Tablet by mouth daily. Reorder 08/22/2023 11/29/2023 hydroCHLOROthiazide (MICROZIDE) 12.5 mg Oral CapsuleIndications:Ess ential hypertension TAKE 1 CAPSULE BY MOUTH EVERY DAY Reorder 10/13/2023 11/29/2023 montelukast (SINGULAIR) 10 mg Oral TabletIndications:Mode rate persistent asthma without complication TAKE 1 TABLET BY MOUTH EVERY DAY AT NIGHT Reorder 10/13/2023 11/29/2023 losartan (COZAAR) 50 mg Oral TabletIndications:Esse ntial hypertension Take 1 Tablet by mouth 2 times daily. Reorder 11/02/2023 11/29/2023 documented as of this encounter Additional Health Concerns Infection Onset Date Last Indicated Resolved Time INFLUENZA 11/23/2023 11/29/2023 12/13/2023 10:1 2 PM EDT documented as of this encounter Care Teams Turkey Picker Relationship Specialty Start Date End Date Eliel Fulton APRN [address] [place] [id number] PCP - General Nurse Practitioner 07/26/21 documented as of this encounter
--- OUTSIDE RECORDS SUMMARY | 2024-05-29 15:35 | XMS_ITS | Encounter Summary ---
Author Organization [place] [address] Care Team Providers Care Marketing Representative Name Role Phone Steffanie Fulton APRN Primary Care Provider [phone]- [phone] Encounter Details Date Type Department Care Team (Latest Contact Info) Description 11/29/2023 10:08 AM EDT - 11/29/2023 11:59 PM EDT Hospital Encounter [facility] [address] [place] [address] Acute bronchitis, unspecified organism Discharge Disposition: Home or Self Care Social [...] Haylie Krishnan CO documented in this encounter Medications at Time [...] AREA EVERY DAY 15 g 2 2 fluticasone propionate (FLONASE) 50 mcg/actuation Nasl [place], SuspensionIndicatio ns:Moderate persistent asthma, uncomplicated SPRAY 1 [...] 4 Nebulizer Accessories (ALL FLOW 4000 KIT) [facility] Formulary equivalent 1 Each 0 3 pantoprazole (PROTONIX) 40 mg Oral Tablet, Delayed Release (E.C.)Indications:A nnual physical exam Take 1 Tablet by mouth daily. 90 Tablet 3 4 rifAXIMin (XIFAXAN) 550 mg Oral TabletIndications:I rritable bowel syndrome with diarrhea Take 1 Tablet by mouth 3 times daily. 42 Tablet 2 4 albuterol (PROVENTIL HFA;VENTOLIN HFA) 90 mcg/actuation Inhl HFA Aerosol InhalerIndications: Upper respiratory tract infection, unspecified type Inhale 2 Puffs into the lungs every 4 hours as needed for Wheezing. 1 Each 2 4 04/08/20 24 budesonide-formoter oL (SYMBICORT) 160-4.5 mcg/actuation Inhl HFA Aerosol InhalerIndications: History of asthma Inhale 2 Puffs into the lungs 2 times daily. 30.6 Each 2 3 12/01/19 24 celecoxib (CELEBREX) 200 mg Oral CapsuleIndications: Generalized osteoarthritis of multiple sites Take 1 Capsule by mouth 2 times daily. 60 Capsule 2 3 04/29/20 24 doxycycline hyclate (VIBRA-TABS) 100 mg Oral TabletIndications:W heezing,Acute bronchitis, unspecified organism Take 1 Tablet by mouth 2 times daily for 10 days. 20 Tablet 4 12/03/19 24 tamsulosin (FLOMAX) 0.4 mg Oral CapsuleIndications: BPH without urinary obstruction TAKE 2 CAPSULES BY MOUTH EVERY DAY AT NIGHT 180 Capsule 4 01/26/20 24 tiZANidine (ZANAFLEX) 2 mg Oral TabletIndications:C hronic low back pain with sciatica, sciatica laterality unspecified, unspecified back pain laterality Take 1 Tablet by mouth 3 times daily. 90 Tablet 2 4 12/08/19 24 documented as of this encounter Discharge Disposition Disposition Code Departure Means Destination Home or Self Care documented in this encounter Plan of Treatment Upcoming Encounters Date Type Department Care Team (Late st Contact Info) Description 06/28/2024 9:40 AM EST Clinical Support [facility] [address] [place] [place] [address] 11/19/2024 1:40 PM EDT Office Visit SEP Neurology [facility] [address] [place] [address] Lyndsay Brewer DO [address] [facility] [address] [place] [address] documented as of this encounter [...] Name Priority Date/Time Associated Diagnosis Comments XR CHEST PA AND LATERAL Routine 11/29/2023 10:11 AM EDT Acute bronchitis, unspecified organism documented in this [...] ??11/29/2023 10:11 AM CLINICAL HISTORY: ??J20.9-Acute bronchitis, [id number] COMPARISON: ??10/13/2021 PROCEDURE COMMENTS: Frontal and lateral views of the chest. FINDINGS: Heart size normal. Right upper lobe chronic opacities. No dense consolidation, effusion. Procedure Note Garry Leos MD - 11/29/2023 PA AND LATERAL CHEST X-RAY, 11/29/2023 10:11 AM CLINICAL HISTORY: J20.9-Acute bronchitis, [id number] COMPARISON: 10/13/2021 PROCEDURE COMMENTS: Frontal and lateral [...] in this encounter Visit Diagnoses Diagnosis Acute bronchitis, unspecified organism documented in this encounter Additional Health Concerns Infection Onset Date Last Indicated Resolved Time INFLUENZA 11/23/2023 11/29/2023 12/13/2023 10:1 2 PM EDT documented as of this encounter Care Teams Marketing Representative Relationship Specialty Start Date End Date Steffanie Fulton APRN [address] [place] [id number] PCP - General Nurse Practitioner 07/26/21 documented as of this encounter
--- OUTSIDE RECORDS SUMMARY | 2024-05-29 15:35 | XMS_ITS | Encounter Summary ---
Author Organization [place] [address] Care Team Providers Care Inspector Multifocal Lens Name Role Phone Steffanie Fulton APRN Primary Care Provider [phone]- [phone] Reason for Referral * Consultation (Routine) - Pending Review Specialty Diagnoses / Procedures Referred By Gus kunz Referred To Contact Sleep Center Diagnoses Snoring Steffanie Fulton APRN [address] [place] [address] Phone: tel: fax: Garland Clements MD [address] [place] [phone] Phone: tel: fax: Referral ID Status Reason Start Date Expiration Date V isits Requested Visits Authorized [id number] Pending Review 09/13/2023 09/12/2024 99 99 Question Answer What test needs to be performed? Appropriate testing as determined by sleep specialist/sleep medicine protocols * Consultation (Routine) - Pending Review Specialty Diagnoses / Procedures Referred By Gus kunz Referred To Contact Diagnoses Contusion of right clavicle, subsequent encounter Steffanie Fulotn APRN [address] [place] [address] Phone: tel: fax: Referral ID Status Reason Start Date Expiration Date V isits Requested Visits Authorized [id number] Pending Review 09/13/2023 09/12/2024 99 99 Reason for Visit * Reason Comments Mass Encounter Details Date Type Department Care Team ([place] st Contact Info) Description 09/13/2023 1:00 PM EDT Office Visit [facility] [address] [place] [phone] Steffanie Fulton APRN [address] [place] [address] Contusion of right clavicle, subsequent encounter (Primary Dx); Snoring; Chronic low back pain with sciatica, sciatica laterality unspecified, unspecified back pain laterality Social History Tobacco Use Types Packs/Day Years [...] Sign Reading Time Taken Comments Blood Pressure 130/70 09/13/2023 1:05 PM EDT Pulse 82 09/13/2023 1:05 PM EDT Temperature 37.3 ??C (99.1 ??F) 09/13/2023 1:05 PM ED T Respiratory Rate - - Oxygen Saturation 98% 09/13/2023 1:05 PM EDT Inhaled Oxygen Concentration - - Weight 97.5 kg (215 lb) 09/13/2023 1:05 PM EDT Height 170.2 cm (5' 7 ) 09/13/2023 1:05 PM EDT Body Mass Index 33.67 09/13/2023 1:05 PM EDT documented in this encounter Functional [...] Refills Last Filled Start Date End Date tiZANidine (ZANAFLEX) 2 mg Oral TabletIndications: Chronic low back pain with sciatica, sciatica laterality unspecified, unspecified back pain laterality Take 1 Tablet by mouth 3 times daily. 90 Tablet 2 09/13/2023 12/08/2023 documented in this encounter Progress Notes * Steffanie Fulton APRN - 09/13/2023 1:00 PM EDT Vitals: 09/13/23 1305 BP: 130/70 Pulse: 82 Temp: 99.1 ??F (37.3 ??C) TempSrc: Forehead SpO2: 98% Weight: 215 lb (97.5 kg) Height: 5' 7 (1.702 m) Body mass index is 33.67 kg/m??. SUBJECTIVE: Chief Complaint Patient presents with ??? Mass HPI: Pt here today with c/o right clavicle concern. Denies pain but states clavicle out of place Does lift weights but no known injury or trauma. Requesting refill on Zanaflex Review of Systems Constitutional: Negative. HENT: Negative. Respiratory: Negative. Cardiovascular: Negative. Gastrointestinal: Negative. Genitourinary: Negative. Musculoskeletal: Negative. OBJECTIVE: Physical Exam Constitutional: Appearance: Normal appearance. HENT: Head: Normocephalic and atraumatic. Cardiovascular: Rate and Rhythm: Normal rate and regular rhythm. Pulses: Normal pulses. Heart sounds: Normal heart sounds. Pulmonary: Effort: Pulmonary effort is normal. Breath sounds: Normal breath sounds. Skin: General: Skin is warm and dry. Capillary Refill: Capillary refill takes less than 2 seconds. Neurological: Mental Status: He is alert. Assessment Diagnoses and all orders for this visit: Contusion of right clavicle, subsequent encounter - XR CLAVICLE RIGHT; Future - AMB REFERRAL TO ORTHOPEDIC SURGERY Snoring Chronic low back pain with sciatica, sciatica laterality unspecified, unspecified back pain laterality - tiZANidine (ZANAFLEX) 2 mg Oral Tablet; Take 1 Tablet by mouth 3 times daily. Dispense: 90 Tablet; Refill: 2 documented in this encounter Plan of Treatment Upcoming Encounters Date Type Department Care Team (Late st Contact Info) Description 06/28/2024 9:40 AM EST Clinical Support [facility] [place] [address] [place] [phone] 11/19/2024 1:40 PM EDT Office Visit SEP Neurology [facility] [address] [place] [phone] Lyndsay Brewer DO [address] [place] [address] Scheduled Referrals Name Type Priority Associated Diagnoses Order Schedule AMB REFERRAL TO ORTHOPEDIC SURGERY Outpatient Referral Routine Contusion of right clavicle, subsequent encounter Ordered: 09/13/2023 AMB REFERRAL TO SLEEP STUDIES/MEDICINE Outpatient Referral Routine Snoring Ordered: 09/13/2023 documented as of this encounter Goals Goal Patient Goal Type Associated Problems Recent Progress Patient-Stated? Author Blood Pressure < 140/90 Blood Pressure 134/84(2023 1:16 PM EST) No Yana Choi RMA Eat better, exercise, reach an ideal body weight General No Yana Choi, RMA Stay Tobacco Free Lifestyle No Yana Choi RMA documented as of this encounter Results * XR CLAVICLE RIGHT [...] ??T14.8XXD-Other injury of unspecified body region, subsequent [id number] COMPARISON: ??None. PROCEDURE COMMENTS: XR CLAVICLE RIGHT FINDINGS: No acute fracture, dislocation, embedded foreign body, or significant soft tissue abnormality. Arthritis of the AC joint with a possible prior surgical resection of the lateral end of the clavicle. Procedure Note Makenna Kimble MD - 09/13/2023 XR CLAVICLE RIGHT, 09/13/2023 1:44 PM CLINICAL HISTORY: T14.8XXD-Other injury of unspecified body region,subsequent [id number] COMPARISON: None. PROCEDURE COMMENTS: XR CLAVICLE RIGHT [...] of the ordering clinician. Steffanie Fulton APRN IM DIAGNOSTIC IMAGING ORD ERABLES Final Result documented in this encounter Visit Diagnoses Diagnosis Contusion of right clavicle, subsequent encounter- Primary Snoring Other dyspnea and respiratory abnormality Chronic low back pain with sciatica, sciatica laterality unspecified, unspecified back pain laterality Contusion of right clavicle, subsequent encounter documented in this encounter Discontinued Medications Medication Sig Discontinue Reason Start Date End Da te tiZANidine (ZANAFLEX) 2 mg Oral TabletIndications:Chronic low back pain with sciatica, sciatica laterality unspecified, unspecified back pain laterality Take 1 Tablet by mouth 3 times daily. Reorder 04/24/2023 09/13/2023 documented as of this encounter Care Teams Inspector Multifocal Lens Relationship Specialty Start Date End Date Steffanie Fulton APRN [address] [place] [address] PCP - General Nurse Practitioner 07/26/21 documented as of this encounter
--- OUTSIDE RECORDS SUMMARY | 2024-05-29 15:35 | XMS_ITS | Encounter Summary ---
Author Organization [place] [address] Care Team Providers Care Supervisor Cell Operation Name Role Phone YolandaSteffanie devine YOLI Primary Care Provider +1- [phone] Reason for Visit * Reason Comments Bleeding/Bruising Bruising knee Encounter Details Date Type Department Care Team (Late st Contact Info) Description 11/01/2023 9:30 AM EDT Office Visit [facility] [address] [place] [phone] Steffanie Fulton APRN [address] [place] [address] Acute pain of left knee (Primary Dx); History of drug use; Cellulitis of leg, left; Pre-diabetes Social History Tobacco Use Types Packs/Day Years [...] Sign Reading Time Taken Comments Blood Pressure 136/76 11/01/2023 9:39 AM EDT Pulse 79 11/01/2023 9:39 AM EDT Temperature 36.8 ??C (98.2 ??F) 11/01/2023 9:39 AM ED T Respiratory Rate - - Oxygen Saturation 98% 11/01/2023 9:39 AM EDT Inhaled Oxygen Concentration - - Weight 98.4 kg (217 lb) 11/01/2023 9:39 AM EDT Height 170.2 cm (5' 7 ) 11/01/2023 9:39 AM EDT Body Mass Index 33.99 11/01/2023 9:39 AM EDT documented in this encounter Functional [...] Refills Last Filled Start Date End Date clindamycin (CLEOCIN) 300 mg Oral CapsuleIndications :Acute pain of left knee,History of drug use,Cellulitis of leg, left Take 1 Capsule by mouth 3 times daily for 7 days. 21 Capsule 11/01/2023 4 documented in this encounter Progress Notes * Steffanie Fulton YOLI - 11/01/2023 9:30 AM EDT Vitals: 11/01/23 0939 BP: 136/76 Pulse: 79 Temp: 98.2 ??F (36.8 ??C) TempSrc: Forehead SpO2: 98% Weight: 217 lb (98.4 kg) Height: 5' 7 (1.702 m) Body mass index is 33.99 kg/m??. SUBJECTIVE: Chief Complaint Patient presents with Bleeding/Bruising Bruising knee HPI: Pt here today with c/o left knee pain, 'bruising' and swelling States he noticed bruising discoloration last week Feels he bruises easily Hx of ACL repair bilateral Reports hx of infection in that knee when I was using drugs Clean x 12 years Review of Systems Constitutional: Negative. HENT: Negative. Respiratory: Negative. Cardiovascular: Negative. Gastrointestinal: Negative. Musculoskeletal: Positive for arthralgias. Skin: Positive for color change. OBJECTIVE: Physical Exam Constitutional: Appearance: Normal appearance. Cardiovascular: Rate and Rhythm: Normal rate and regular rhythm. Pulses: Normal pulses. Heart sounds: Normal heart sounds. Pulmonary: Effort: Pulmonary effort is normal. Breath sounds: Normal breath sounds. Abdominal: General: Bowel sounds are normal. Palpations: Abdomen is soft. Musculoskeletal: General: Swelling and tenderness present. Skin: Findings: Erythema present. Neurological: Mental Status: He is alert. Assessment Diagnoses and all orders for this visit: Acute pain of left knee - XR KNEE LEFT AP LAT INT EXT OBLIQUES AND SUNRISE; Future - clindamycin (CLEOCIN) 300 mg Oral Capsule; Take 1 Capsule by mouth 3 times daily for 7 days. Dispense: 21 Capsule; Refill: 0 History of drug use - ACUTE HEPATITIS PANEL; Future - clindamycin (CLEOCIN) 300 mg Oral Capsule; Take 1 Capsule by mouth 3 times daily for 7 days. Dispense: 21 Capsule; Refill: 0 Cellulitis of leg, left - clindamycin (CLEOCIN) 300 mg Oral Capsule; Take 1 Capsule by mouth 3 times daily for 7 days. Dispense: 21 Capsule; Refill: 0 Pre-diabetes - TSH REFLEX - HEMOGLOBIN A1C - LIPID PANEL REFLEX Other orders - CBC WITH DIFF - COMPREHENSIVE METABOLIC PANEL * Milly Dasilva - 11/01/2023 9:30 AM EDT Left antecubital. 1 sst, 1mint, 1purple documented in this encounter Plan of Treatment Upcoming Encounters Date Type Department Care Team (Late st Contact Info) Description 06/28/2024 9:40 AM EST Clinical Support [facility] [address] [place] [phone] 11/19/2024 1:40 PM EDT Office Visit [facility] Neu[facility] [address] [place] [address] Lyndsay Brewer DO [address] [place] [address] documented as of this encounter [...] Procedure Name Priority Date/Time Associated Diagnosis Comments LIPID PANEL REFLEX Routine 11/01/2023 10 :02 AM EDT Pre-diabetes TSH REFLEX Routine 11/01/2023 10:02 AM EDT Pre-diabetes ACUTE HEPATITIS PANEL Routine 11/01/2023 10:02 AM EDT History of drug use CBC WITH DIFF Routine 11/01/2023 10:02 AM EDT Cellulitis of leg, left HEMOGLOBIN A1C Routine 11/01/2023 10:02 AM EDT Pre-diabetes COMPREHENSIVE METABOLIC PANEL Routine 11/01/2023 10:02 AM EDT Pre-diabetes documented in this encounter Results * XR KNEE LEFT AP LAT INT EXT OBLIQUES AND SUNRISE (11/01/2023 10:33 AM EDT) Anatomical Region Laterality Modality Knee Radiographic Pauly ging 11/01/2023 10:3 3 AM EDT Impressions 11/01/2023 1:49 PM EDT No acute abnormality of the knee. There is tricompartmental osteoarthritis. - Note: Radiology results need to be interpreted within a comprehensive clinical context. ??If you have questions about the radiology report, please contact the office of the ordering clinician. Narrative 11/01/2023 1:49 PM EDT XR KNEE LEFT AP LAT INT EXT OBLIQUES AND SUNRISE, ??11/01/2023 10:33 AM CLINICAL HISTORY: ??M25.562-Pain in left [id number]-[id number] COMPARISON: ??None. PROCEDURE COMMENTS: XR KNEE LEFT AP LAT INT EXT OBLIQUES AND SUNRISE FINDINGS: There is normal alignment of the left knee. There is joint space narrowing and spur formation throughout all 3 compartments of the knee. There is no joint effusion. There is ORIF hardware in the proximal tibia. There is no evidence of hardware loosening or failure. There is a healed fracture of the left fibular diaphysis. Procedure Note Georgette Haney MD - 11/01/2023 XR KNEE LEFT AP LAT INT EXT OBLIQUES AND SUNRISE, 11/01/2023 10:33 AM CLINICAL HISTORY: M25.562-Pain in left [id number]-CM COMPARISON: None. PROCEDURE COMMENTS: XR KNEE LEFT AP LAT INT EXT OBLIQUES AND SUNRISE FINDINGS: There is normal alignment of the left knee. There is jointspace narrowing and spur formation throughout all 3 compartments of the knee.There is no joint effusion. There is ORIF hardware in the proximal tibia. There isno evidence of hardware loosening or failure. There is a healed fracture ofthe left fibular diaphysis. IMPRESSION: No acute abnormality of the knee. There is tricompartmental osteoarthritis. - Note: Radiology results need to be interpreted within a comprehensiveclinical context. If you have questions about the radiology report, please contactthe office of the ordering clinician. us Steffanie Fulton APRN IMG DIAGNOSTIC IMAGING ORD ERABLES Final Result * (ABNORMAL) LIPID PANEL REFLEX (11/01/2023 10:02 AM EDT) [facility] Signature Cholesterol 128 <200 mg/dL 11/01/2023 9:14 PM EDT [facility] Comment: < 200 ?Desirable 200 - 239 ? Borderline High >= 240 ?High Triglyceride 64 <150 mg/dL 11/01/2023 9:14 PM EDT [facility] Comment: < 150 ? Normal 150 - 199 ?Borderline High 200 - 499 ?High ??>= 500 ? Very High HDL 39(L) >=40 mg/dL 11/01/2023 9:14 PM EDT [facility] Comment: ??> 60 ?Optimal 40 - 60 ?Acceptable ?? < 40 ?Low LDL Calculated 76 <100 mg/dL 11/01/2023 9:14 PM EDT [facility] Non-HDL-C Calculated 89 <=129 mg/dL 11/01/2023 9:14 PM EDT [facility] Comment: <130 ?Desirable 130-159 Above Desirable 160-189 Borderline High 190-219 High >= 220 ??Very High Fasting Specimen? Yes None 05/08/2 024 9:14 PM EDT [facility] Blood VENOUS BLOOD / Unknown Venipuncture / Unknown 11/01/2023 10:02 AM EDT 11/01/2023 10:02 AM EDT [facility] TRAFFIC ATTENDANT CHEMISTRY ORDERABLES Final Result Performing Organization Address [facility] de Phone Number [facility] [address] , [address] [place] [id number] [facility] [address] [place] [id number] * HEMOGLOBIN A1C (11/01/2023 10:02 AM EDT) [facility] Hgb A1C 5.6 4.2 - 5.6 % 11/01/2023 3:35 PM EDT [facility]ma Est. Avg Glucose 114 mg/dL 11/01/2023 3:35 PM EDT [facility] Blood VENOUS BLOOD / Unknown Venipuncture / Unknown 11/01/2023 10:02 AM EDT 11/01/2023 10:02 AM EDT Narrative [facility] Carma - 11/01/2023 3:35 PM EDT REFERENCE RANGE: Normal: 4.0-5.6% Pre-diabetes: 5.7-6.4% Provisional diagnosis of diabetes: >6.4% Hgb F>10% and anything which shortens red cell survival, such as hemolytic anemia, or unstable hemoglobin variants such as HbSS, HbSC, or HbCC, will lower the HbA1c value associated with a given level of glycemic control. ? [facility] TRAFFIC ATTENDANT CHEMISTRY ORDERABLES Final Result Performing Organization Address [facility] de Phone Number [facility] [address] [place] [address] , [place] [address] * TSH REFLEX (11/01/2023 10:02 AM EDT) [facility] TSH Reflex 2.400 0.270 - 4.200 mcIU/mL 11/01/2023 9:14 PM EDT [facility] Blood VENOUS BLOOD / Unknown Venipuncture / Unknown 11/01/2023 10:02 AM EDT 11/01/2023 10:02 AM EDT Narrative [facility] - 11/01/2023 9:14 PM EDT Ingestion of john doses of biotin (>5 mg/day) taken within 8 hours of drawing blood sample can interfere with this immunoassay test. us Steffanie Gastright TRAFFIC ATTENDANT CHEMISTRY ORDERABLES Final Result [facility] [address] [facility] [facility] , [place] [address] * (ABNORMAL) COMPREHENSIVE METABOLIC PANEL (11/01/2023 10:02 AM EDT) Sodium 140 136 - 145 mmol/L 11/01/2023 9:14 PM EDT [facility] Potassium 4.1 3.5 - 5.0 mmol/L 11/01/2023 9:14 PM EDT [facility] Chloride 104 98 - 107 mmol/L 11/01/2023 9:14 PM EDT [facility] Total CO2 23 22 - 29 mmol/L 11/01/2023 9:14 PM EDT [facility] Anion Gap 13 7 - 16 mmol/L 11/01/2023 9:14 PM EDT [facility] Calcium 9.6 8.6 - 10.4 mg/dL 11/01/2023 9:14 PM EDT [facility] Glucose Lvl 112(H) 70 - 99 mg/dL 11/01/2023 9:14 PM EDT [facility] BUN 17 6 - 20 mg/dL 11/01/2023 9:14 PM EDT [facility] Creatinine 0.94 0.67 - 1.30 mg/dL 11/01/2023 9:14 PM EDT [facility] Albumin 4.6 3.5 - 5.2 gm/dL 11/01/2023 9:14 PM EDT [facility] Total Protein 7.6 6.4 - 8.3 gm/dL 11/01/2023 9:14 PM EDT [facility] Bili Total 0.5 0.2 - 1.4 mg/dL 11/01/2023 9:14 PM EDT [facility] ALT 36 <=41 U/L 11/01/2023 9:14 PM EDT [facility] AST 31 <=40 U/L 11/01/2023 9:14 PM EDT [facility] Alk Phos 134(H) 40 - 129 U/L 11/01/2023 9:14 PM EDT [facility] eGFR (CKD-EPIcr 2020) 96 >=60 mL/min/1.7 3 m2 11/01/2023 9:14 PM EDT [facility] Comment:Estimated GFR was ca lculated using the CKD-EPIcr (2020) equation refit without race. The equation is recommended by the National Kidney Foundation - [place] [employer] Neph[employer] Task Force. Blood VENOUS BLOOD / Unknown Venipuncture / Unknown 11/01/2023 10:02 AM EDT 11/01/2023 10:02 AM EDT us Steffanie Gastright TRAFFIC ATTENDANT CHEMISTRY ORDERABLES Final Result [facility] [address] [facility] [address] , [address] [place] [id number] [facility] [address] [place], [place] [id number] * CBC WITH DIFF (11/01/2023 10:02 AM EDT) WBC 5.3 3.7 - 10.3 x10(3)/mcL 11/01/2023 2:41 PM EDT [facility] RBC 4.61 4.60 - 6.10 x10(6)/mcL 11/01/2023 2:41 PM EDT [facility] Hgb 14.5 13.7 - 17.5 g/dL 11/01/2023 2:41 PM EDT [facility] Hct 43.7 40.0 - 51.0 % 11/01/2023 2:41 PM EDT [facility] MCV 94.8 80.0 - 100.0 fL 11/01/2023 2:41 PM EDT [facility] MCH 31.5 26.0 - 34.0 pg 11/01/2023 2:41 PM EDT [facility] MCHC 33.2 30.7 - 35.5 g/dL 11/01/2023 2:41 PM EDT [facility] RDW 13.0 <=14.9 % 11/01/2023 2:41 PM EDT [facility] Platelet 167 155 - 369 x10(3)/mcL 11/01/2023 2:41 PM EDT [facility] MPV 10.4 8.8 - 12.5 fL 11/01/2023 2:41 PM EDT [facility] Neut Percent 63.8 % 11/01/2023 2:41 PM EDT [facility] Comment:Neutrophils equals s egs plus bands Imm Gran% 0.6 % 11/01/2023 2:41 PM EDT [facility] Comment:Automated count of m etamyelocytes, myelocytes and promyelocytes. Lymph Percent 26.6 % 11/01/2023 2:41 PM EDT [facility] Freestone Percent 7.5 % 11/01/2023 2:41 PM EDT [facility] Eos Percent 0.9 % 11/01/2023 2:41 PM EDT [facility] Baso Percent 0.6 % 11/01/2023 2:41 PM EDT [facility] Neut # 3.4 1.6 - 6.1 x10(3)/mcL 11/01/2023 2:41 PM EDT [facility] Comment:Neutrophils equals s egs plus bands IMMGRAN# 0.0 0.0 - 0.1 x10(3)/mcL 11/01/2023 2:41 PM EDT [facility] Comment:Automated count of m etamyelocytes, myelocytes and promyelocytes. An absolute IG <0.1 is reported as 0.0. Lymph # 1.4 1.2 - 3.9 x10(3)/mcL 11/01/2023 2:41 PM EDT [facility] Freestone # 0.4 0.3 - 0.9 x10(3)/mcL 11/01/2023 2:41 PM EDT [facility] Eos# 0.1 0.0 - 0.5 x10(3)/mcL 11/01/2023 2:41 PM EDT [facility] Baso # 0.0 0.0 - 0.1 x10(3)/mcL 11/01/2023 2:41 PM EDT [facility] Blood VENOUS BLOOD / Unknown Venipuncture / Unknown 11/01/2023 10:02 AM EDT 11/01/2023 10:02 AM EDT Steffanie Gastright TRAFFIC ATTENDANT HEMATOLOGY ORDERABLES Karina l Result Performing Organization Address City/[facility] Co de Phone Number [facility] [address], [place] [address] * ACUTE HEPATITIS PANEL (11/01/2023 10:02 AM EDT) Hep Bs Ag Non-Reacti ve Non-Reacti ve 11/01/2023 5:01 PM EDT [facility] Hep B Core IgM Non-Reacti ve Non-Reacti ve 11/01/2023 5:01 PM EDT [facility] Hep A IgM Non-Reacti ve Non-Reacti ve 11/01/2023 5:01 PM EDT [facility] Hep C Ab Non-Reacti ve Non-Reacti ve 11/01/2023 5:01 PM EDT [facility] Blood VENOUS BLOOD / Unknown Venipuncture / Unknown 11/01/2023 10:02 AM EDT 11/01/2023 10:02 AM EDT Steffanie Gastrnilson TRAFFIC ATTENDANT CHEMISTRY ORDERABLES Final Result Performing Organization Address [facility] Co de Phone Number [facility] [address], [place] [address] documented in this encounter Visit Diagnoses Diagnosis Acute pain of left knee- Primary History of drug use Cellulitis of leg, left Cellulitis and abscess of leg, except foot Pre-diabetes Other abnormal glucose Acute pain of left knee documented in this encounter Care Teams Supervisor Cell Operation Relationship Specialty Start Date End Date Steffanie Fulton APRN [address] [place] [id number] PCP - General Nurse Practitioner 07/26/21 documented as of this encounter
--- OUTSIDE RECORDS SUMMARY | 2024-05-29 15:35 | XMS_ITS | Encounter Summary ---
Author Organization [place] [address] Care Team Providers Care Dessert Cup Machine Feeder Name Role Phone Steffanie Fulton APRN Primary Care Provider +1- [phone] Encounter Details Date Type Department Care Team (Late st Contact Info) Description 11/01/2023 10:10 AM EDT - 11/01/2023 11:59 PM EDT Hospital Encounter [facility] [address] [place] [address] Steffanie Fulton APRN [address] [place] [address] Acute pain of left knee Discharge Disposition: Home or Self Care Social [...] 11/04/2021 fluticasone propionate (FLONASE) 50 mcg/actuation Nasl [place], SuspensionIndicatio ns:Moderate persistent asthma, uncomplicated SPRAY 1 SPRAY INTO EACH NOSTRIL EVERY DAY 32 mL 1 11/04/2021 Nebulizer Accessories (ALL FLOW 4000 KIT) [facility] equivalent 1 Each 0 06/27/2012 albuterol [...] times daily. 60 Capsule 2 04/24/2023 4 clindamycin (CLEOCIN) 300 mg Oral CapsuleIndications: Acute pain of left knee,History of drug use,Cellulitis of leg, left Take 1 Capsule by mouth 3 times daily for 7 days. 21 Capsule 11/01/2023 4 tamsulosin (FLOMAX) 0.4 mg Oral CapsuleIndications: BPH without urinary obstruction TAKE 2 CAPSULES BY MOUTH EVERY DAY AT NIGHT 180 Capsule 10/31/2023 4 tiZANidine (ZANAFLEX) 2 mg Oral TabletIndications:C [...] Clinical Support [facility] [place] [facility] [address] [place] [phone] 11/19/2024 1:40 PM EDT Office Visit [facility] [address] [place] [phone] Lyndsay Brewer, DO [address] [place] [address] documented as of this encounter Goals Goal [...] Name Priority Date/Time Associated Diagnosis Comments XR KNEE LEFT AP LAT INT EXT OBLIQUES AND SUNRISE Routine 11/01/2023 10:33 AM EDT Acute pain of left knee documented in this encounter Results * XR [...] 10:33 AM CLINICAL HISTORY: ??M25.562-Pain in left [id number]-PGL-05-CM COMPARISON: ??None. PROCEDURE COMMENTS: XR KNEE LEFT [...] 10:33 AM CLINICAL HISTORY: M25.562-Pain in left cadt-KLA-24-CM COMPARISON: None. PROCEDURE COMMENTS: XR KNEE LEFT [...] Visit Diagnoses Diagnosis Acute pain of left knee documented in this encounter Care Teams Dessert Cup Machine Feeder Relationship Specialty Start Date End Date Steffanie Fulton APRN [address] [place] [address] PCP - General Nurse Practitioner 07/26/21 documented as of this encounter
--- OUTSIDE RECORDS SUMMARY | 2024-05-29 15:35 | XMS_ITS | Encounter Summary ---
Author Organization [place] [address] Care Team Providers Care File Conversion Operator Name Role Phone Kirstin Steffanie YOLI Primary Care Provider [phone]- [phone] Reason for Visit * Reason Comments Medication Refill Encounter Details Date Type Department Care Team (Late st Contact Info) Description 12/08/2023 Refill [facility] [address] [place] [phone] Steffanie FultonYOLI [address] [place] [address] Medication Refill Social History Tobacco Use Types [...] No 11/29/2023 9:28 AM EDT Haylie Krishnan [place] * Is the person blind or does he/she have serious difficulty seeing even when wearing glasses? Answer Date of Assessment Author No 11/29/2023 9:28 AM EDT Haylie Krishnan [place] * Does this person have serious difficulty walking or climbing stairs? Answer Date of Assessment Author No 11/29/2023 9:28 AM EDT Haylie Krishnan [place] * Does this person have difficulty dressing or bathing? Answer Date of Assessment Author No 11/29/2023 9:28 AM EDT Haylie Krishnan [place] * Because of a physical, mental or emotional condition, does this person have difficulty doing errands alone such as visiting a doctor's office or shopping? Answer Date of Assessment Author No 11/29/2023 9:28 AM T Haylie Krishnan [place] documented as of this encounter Mental Status * Because of a physical, mental or emotional condition, does this person have serious difficulty concentrating, remembering or making decisions? Answer Entry Date Author No 11/29/2023 9:28 AM [facility] Haylie Krishnan [place] documented in this encounter Ordered Prescriptions Prescription Sig Dispense Quantity Refills Last Filled Start Date End Date tiZANidine (ZANAFLEX) 2 mg Oral TabletIndications:C hronic low back pain with sciatica, sciatica laterality unspecified, unspecified back pain laterality TAKE 1 TABLET BY MOUTH THREE TIMES A DAY 270 Tablet 12/08/2023 documented in this encounter Plan of Treatment Upcoming Encounters Date Type Department Care Team (Late st Contact Info) Description 06/28/2024 9:40 AM EST Clinical Support [facility] [place] [address] [place] [phone] 11/19/2024 1:40 PM EDT Office Visit [facility] [address] [place] [address] Lyndsay Brewer DO [address] [place] [address] documented as of this encounter Goals Goal Patient Goal Type Associated Problems Recent Progress Patient-Stated? Author Blood Pressure < 140/90 Blood Pressure 134/84(2023 1:16 PM EST) No Yana Choi RMA Eat better, exercise, reach an ideal body weight General No Yana Cohi RMA Stay Tobacco Free Lifestyle Yana Pina RMA documented as of this encounter Visit Diagnoses Diagnosis Chronic low back pain with sciatica, sciatica laterality unspecified, unspecified back pain laterality documented in this encounter Discontinued Medications Medication Sig Discontinue Reason Start Date End Da te tiZANidine (ZANAFLEX) 2 mg Oral TabletIndications:Chronic low back pain with sciatica, sciatica laterality unspecified, unspecified back pain laterality Take 1 Tablet by mouth 3 times daily. 09/13/2023 12/08/2023 documented as of this encounter Additional Health Concerns Infection Onset Date Last Indicated Resolved Time INFLUENZA 11/23/2023 11/29/2023 12/13/2023 10:1 2 PM EDT documented as of this encounter Care Teams File Conversion Operator Relationship Specialty Start Date End Date Steffanie Fulton APRN [address] [place] [address] PCP - General Nurse Practitioner 07/26/21 documented as of this encounter
--- OUTSIDE RECORDS SUMMARY | 2024-05-29 15:36 | XMS_ITS | Encounter Summary ---
Author Organization [place] [address] Care Team Providers Care Production Estimator Name Role Phone Kirstin Steffanie YOLI Primary Care Provider +1- [phone] Reason for Visit * Reason Comments Medication Refill Encounter Details Date Type Department Care Team (Late st Contact Info) Description 01/13/2023 Refill [facility] [address] [place] [phone] KirstinSteffanieYOLI [address] [facility] [place] [address] Medication Refill Social History Tobacco Use Types [...] hearing? Answer Date of Assessment Author No 11/23/2022 8:15 AM EDT Magdaleno Elliott LPN * Is the person blind or does he/she have serious difficulty seeing even when wearing glasses? Answer Date of Assessment Author No 11/23/2022 8:15 AM EDT Magdaleno Elliott LPN * Does this person have serious difficulty walking or climbing stairs? Answer Date of Assessment Author No 11/23/2022 8:15 AM EDMagdaleno Barber LPN * Does this person have difficulty dressing or bathing? Answer Date of Assessment Author No 11/23/2022 8:15 AM EDT Magdaleno Elliott LPN * Because of a physical, mental or emotional condition, does this person have difficulty doing errands alone such as visiting a doctor's office or shopping? Answer Date of Assessment Author No 11/23/2022 8:15 AM EDT Magdaleno Elliott LPN documented as of this encounter Mental Status * Because of a physical, mental or emotional condition, does this person have serious difficulty concentrating, remembering or making decisions? Answer Entry Date Author No 11/23/2022 8:15 AM EDT Magdaleno Elliott LPN documented in this encounter Ordered Prescriptions Prescription Sig Dispense Quantity Refills Last Filled Start Date End Date tiZANidine (ZANAFLEX) 2 mg Oral TabletIndications: Chronic low back pain with sciatica, sciatica laterality unspecified, unspecified back pain laterality TAKE 1 TABLET BY MOUTH THREE TIMES A DAY 90 Tablet 1 01/13/2023 03/24/2023 documented in this encounter Plan of Treatment Upcoming Encounters Date Type Department Care Team (Late st Contact Info) Description 06/28/2024 9:40 AM EST Clinical Support [facility] [address] [place] [phone] 11/19/2024 1:40 PM EDT Office Visit [facility] [address] [place] [address] Osman Lyndsaydale Fish, DO [address] [place] [address] documented as of this encounter [...] 1 Tablet by mouth 3 times daily. 12/21/2022 01/13/2023 documented as of this encounter Care Teams Production Estimator Relationship Specialty Start Date End Date Steffanie Fulton APRN [address] [place] [address] PCP - General Nurse Practitioner 07/26/21 documented as of this encounter
--- OUTSIDE RECORDS SUMMARY | 2024-05-29 15:36 | XMS_ITS | Encounter Summary ---
Author Organization [place] [address] Care Team Providers Care Procedures Analyst Name Role Phone Kirstin Steffanie KENT Primary Care Provider +1- [phone] Encounter Details Date Type Department Care Team (Late st Contact Info) Description 01/25/2023 Orders Only [facility] [address] [place] [phone] Chica FultonandaYOLI [address] [place] [address] Cold sore Social History Tobacco Use Types Packs/Day Years [...] of Assessment Author No 11/23/2022 8:15 AM Magdaleno Melgoza LPN * Is the person blind or does he/she have serious difficulty seeing even when wearing glasses? Answer Date of Assessment Author No 11/23/2022 8:15 AM Magdaleno Melgoza LPN * Does this person have serious difficulty walking or climbing stairs? Answer Date of Assessment Author No 11/23/2022 8:15 AM Magdaleno Melgoza LPN * Does this person have difficulty dressing or bathing? Answer Date of Assessment Author No 11/23/2022 8:15 AM Magdaleno Melgoza LPN * Because of a physical, mental or emotional condition, does this person have difficulty doing errands alone such as visiting a doctor's office or shopping? Answer Date of Assessment Author No 11/23/2022 8:15 AM Magdaleno Melgoza LPN documented as of this encounter Mental Status * Because of a physical, mental or emotional condition, does this person have serious difficulty concentrating, remembering or making decisions? Answer Entry Date Author No 11/23/2022 8:15 AM Magdaleno Melgoza LPN documented in this encounter Ordered Prescriptions Prescription Sig Dispense Quantity Refills Last Filled Start Date End Date valACYclovir (VALTREX) 1 gram Oral TabletIndications: Cold sore Take 2 Tablets by mouth 2 times daily for 1 day. 4 Tablet 3 01/25/2023 3 documented in this encounter Plan of Treatment Upcoming Encounters Date Type Department Care Team (Late st Contact Info) Description 06/28/2024 9:40 AM EST Clinical Support [facility] [address] [place] [address] 11/19/2024 1:40 PM EDT Office Visit [facility] [address] [place] [address] Lyndsay Brewer DO [address] [place] [address] documented as of this encounter Goals Goal Patient Goal Type Associated Problems Recent Progress Patient-Stated? 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 Reorder 02/09/2021 01/25/2023 documented as of this encounter Care Teams Procedures Analyst Relationship Specialty Start Date End Date Steffanie Fulton APRN [address] [place] [address] PCP - General Nurse Practitioner 07/26/21 documented as of this encounter
--- OUTSIDE RECORDS SUMMARY | 2024-05-29 15:36 | XMS_ITS | Encounter Summary ---
Author Organization [place] [address] Care Team Providers Care Family Therapist Name Role Phone Kirstin Steffanie YOLI Primary Care Provider +1- [phone] Encounter Details Date Type Department Care Team (Late st Contact Info) Description 06/21/2023 Orders Only [facility] [address] [place] [phone] YolandaSteffanie devineYOLI [address] [place] [address] Upper respiratory tract infection, unspecified type (Primary Dx) Social History Tobacco Use Types [...] HFA;VENTOLIN HFA) 90 mcg/actuation Inhl HFA Aerosol InhalerIndication s:Upper respiratory tract infection, unspecified type Inhale 2 Puffs into the lungs every 4 hours as needed for Wheezing. 1 Each 2 06/21/2023 4 methylPREDNISolon e (MEDROL DOSPACK) 4 mg Oral Tablets, Dose PackIndications:U pper respiratory tract infection, unspecified type See package instructions 21 Tablet 06/21/2023 4 documented in this encounter Plan of Treatment Upcoming Encounters Date Type Department Care Team (Late st Contact Info) Description 06/28/2024 9:40 AM EST Clinical Support [facility] [address] [place] [phone] 11/19/2024 1:40 PM EDT Office Visit [facility] [address] [place] [address] Lyndsay Brewer, DO [address] [place] [address] documented as of this encounter [...] Diagnoses Diagnosis Upper respiratory tract infection, unspecified type- Primary documented in this encounter Care Teams Family Therapist Relationship Specialty Start Date End Date Steffanie Fulton APRN [address] [place] [address] PCP - General Nurse Practitioner 07/26/21 documented as of this encounter
--- OUTSIDE RECORDS SUMMARY | 2024-05-29 15:36 | XMS_ITS | Encounter Summary ---
Author [place] [address] Care Team Providers Care Doper Operator Name Role Phone Steffanie Fulton APRN Primary Care Provider +1- [phone] Reason for Visit * Reason Onset Date Comments Medication Problem 02/24/2023 Encounter Details Date Type Department Care Team (Late st Contact Info) Description 02/24/2023 Telephone [facility] [address] [email or web address] [address] Steffanie Fulton APRN [address] [email or web address] [address] Medication Problem Social History Tobacco Use Types Packs/Day Years [...] on file Sexual Orientation Not on file COVID-19 Exposure Response Date Recorded In the last 10 days, have yo u been in contact with someone who was confirmed or suspected to have Coronavirus/COVID-19? No / Unsure 02/09/2023 10:26 AM EDT documented as of this encounter Functional Status [...] Elliott LPN * Does this person have difficulty [...] Magdaleno Elliott LPN documented in this encounter Miscellaneous Notes * Telephone Encounter - Elke Elliott LPN - 03/07/2023 4:52 PM EDT Called and completed PA, patient advised. * Telephone Encounter - Elke Elliott LPN - 03/03/2023 11:16 AM EDT will call later 03/03 * Telephone Encounter - Farzana Garrido MA - 03/01/2023 11:23 AM EDT On his snapshot he has phone number to call. I always did it on the phone and got an approval * Telephone Encounter - Elke Elliott LPN - 02/24/2023 3:32 PM EDT Called and spoke with patient regarding C[facility] refill issues. Called and spoke to pharmacy and they said it was not covered by insurance and it was going to cost $40.21. Advised patient and he stated Farzana was always able to get it covered in the past. Advised patient I would speak with Farzana. documented in this encounter Plan of Treatment Upcoming Encounters Date Type Department Care Team (Late st Contact Info) Description 06/28/2024 9:40 AM EST Clinical Support [facility] [place] [address] [email or web address] [phone] 11/19/2024 1:40 PM EDT Office Visit [facility] [address] [place] [address] Lyndsay Brewer DO [address] [place] [address] documented as of this encounter [...] Onset Date Last Indicated Resolved Time INFLUENZA 02/24/2023 02/24/2023 03/10/2023 10:1 3 PM EDT documented as of this encounter Care Teams Doper Operator Relationship Specialty Start Date End Date Steffanie Fulton APRN [address] [email or web address] [address] PCP - General Nurse Practitioner 07/26/21 documented as of this encounter
--- OUTSIDE RECORDS SUMMARY | 2024-05-29 15:36 | XMS_ITS | Encounter Summary ---
Author Organization [place] [address] Care Team Providers Care Picture Engraver Name Role Phone Steffanie Fulton APRN Primary Care Provider +1- [phone] Reason for Visit * Reason Onset Date Comments Medication Refill 04/22/2023 Encounter Details Date Type Department Care Team (Late st Contact Info) Description 04/22/2023 Refill [facility] [address] [place] [phone] Ligia Wiley MD [address] [place] [address] Medication Refill Social History Tobacco Use Types [...] No 11/23/2022 8:15 AM EDT Magdaleno Elliott PARTY SUPPLY SPECIALIST * Is the person blind or does he/she have serious difficulty seeing even when wearing glasses? Answer Date of Assessment Author No 11/23/2022 8:15 AM EDT Magdaleno Elliott PARTY SUPPLY SPECIALIST * Does this person have serious difficulty walking or climbing stairs? Answer Date of Assessment Author No 11/23/2022 8:15 AM EDT Magdaleno Elliott PARTY SUPPLY SPECIALIST * Does this person have difficulty dressing or bathing? Answer Date of Assessment Author No 11/23/2022 8:15 AM EDT Dexter Elliotts isabel PARTY SUPPLY SPECIALIST * Because of a physical, mental or emotional condition, does this person have difficulty doing errands alone such as visiting a doctor's office or shopping? Answer Date of Assessment Author No 11/23/2022 8:15 AM EDT Dexter Elliotts isabel PARTY SUPPLY SPECIALIST documented as of this encounter Mental Status * Because of a physical, mental or emotional condition, does this person have serious difficulty concentrating, remembering or making decisions? Answer Entry Date Author No 11/23/2022 8:15 AM EDT Magdaleno Elliott PARTY SUPPLY SPECIALIST documented in this encounter Ordered Prescriptions Prescription Sig Dispense Quantity Refills Last Filled Start Date End Date celecoxib (CELEBREX) 200 mg Oral CapsuleIndications:G eneralized osteoarthritis of multiple sites Take 1 Capsule by mouth 2 times daily. 60 Capsule 2 04/24/2023 4 documented in this encounter Plan of Treatment Upcoming Encounters Date Type Department Care Team (Late st Contact Info) Description 06/28/2024 9:40 AM EST Clinical Support [facility] [address] [place] [address] 11/19/2024 1:40 PM EDT Office Visit [facility] [address] [place] [address] Lyndsay Brewer, DO [address] [place] [address] documented as of this encounter [...] Oral CapsuleIndications:General ized osteoarthritis of multiple sites TAKE 1 CAPSULE BY MOUTH TWICE A DAY Reorder 02/21/2023 04/22/2023 documented as of this encounter Care Teams Picture Engraver Relationship Specialty Start Date End Date Steffanie Fulton APRN [address] [place] [id number] PCP - General Nurse Practitioner 07/26/21 documented as of this encounter
--- OUTSIDE RECORDS SUMMARY | 2024-05-29 15:36 | XMS_ITS | Encounter Summary ---
Author Organization [place] [address] Care Team Providers Care Auto Body Technician Name Role Phone Steffanie Fulton APRN Primary Care Provider +1- [phone] Reason for Referral * Consultation (Routine) - Authorization Not Needed Specialty Diagnoses / Procedures Referred By Contac t Referred To Contact Dermatology Diagnoses Referral of patient Steffanie Fulton APRN [address] [place] [address] Phone: tel: fax: [facility] [address] [place] [address] Phone: tel: fax: Referral ID Status Reason Start Date Expiration Date Visits Requested Visits Authorized [id number] Authorization Not Needed 3 06/20/2024 99 99 Question Answer Provider Options First Available Is this an Oncology Provider request? No Encounter Details Date Type Department Care Team (Late st Contact Info) Description 06/21/2023 Orders Only [facility] [address] [place] [phone] Steffanie Fulton APRN [address] [place] [address] Referral of patient (Primary Dx) Social History Tobacco Use Types [...] EST Clinical Support [facility] [address] [place] [phone] 11/19/2024 1:40 PM EDT Office Visit [facility] [address] [place] [phone] Lyndsay Brewer DO [address] [place] [address] Scheduled Referrals Name Type Priority Associated Diagnoses Order Schedule AMB REFERRAL TO DERMATOLOGY Outpatient Referral Routine Referral of patient Ordered: 06/21/2023 documented as of this encounter Goals Goal Patient Goal Type Associated Problems Recent Progress Patient-Stated? Author Blood Pressure < 140/90 Blood Pressure 134/84(2023 1:16 PM EST) No Yana Choi RMA Eat better, exercise, reach an ideal body weight General No Yana Choi RMJane Stay Tobacco Free Lifestyle No Yana Choi RMA documented as of this encounter Visit Diagnoses Diagnosis Referral of patient- Primary Referral of patient without examination or treatment documented in this encounter Care Teams Auto Body Technician Relationship Specialty Start Date End Date Steffanie Fulton APRN [address] [place] [id number] PCP - General Nurse Practitioner 07/26/21 documented as of this encounter
--- OUTSIDE RECORDS SUMMARY | 2024-05-29 15:36 | XMS_ITS | Encounter Summary ---
Author Organization [place] [address] Care Team Providers Care Angle Shear Set Up Operator Name Role Phone Steffanie Fulton APRN Primary Care Provider +1- [phone] Reason for Visit * Reason Comments Medication Refill Encounter Details Date Type Department Care Team (Late st Contact Info) Description 02/21/2023 Refill [facility] [address] [place] [phone] Ligia Wiley MD [address] [place] [address] Medication Refill Social History Tobacco Use Types [...] Recorded In the last 10 days, have debbie u been in contact with someone who [...] BY MOUTH TWICE A DAY 60 Capsule 11 02/21/2023 documented in this encounter Plan of Treatment Upcoming Encounters Date Type Department Care Team (Late st Contact Info) Description 06/28/2024 9:40 AM EST Clinical Support [facility] [address] [place] [phone] 11/19/2024 1:40 PM EDT Office Visit [facility] [address] [place] [address] Lyndsay Brewer, DO [address] [place] [address] documented as of this encounter [...] 1 Capsule by mouth 2 times daily. 01/28/2022 02/21/2023 documented as of this encounter Care Teams Angle Shear Set Up Operator Relationship Specialty Start Date End Date Steffanie Fulton APRN [address] [place] [address] PCP - General Nurse Practitioner 07/26/21 documented as of this encounter
--- OUTSIDE RECORDS SUMMARY | 2024-05-29 15:36 | XMS_ITS | Encounter Summary ---
Author Organization [place] [address] Care Team Providers Care Data Analytics Specialist Name Role Phone Steffanie Fulton APRN Primary Care Provider +1- [phone] Reason for Visit * Reason Comments Medication Refill Encounter Details Date Type Department Care Team (Late st Contact Info) Description 02/19/2023 Refill [facility] [address] [place] [address] Steffanie Fulton APRN [address] [place] [address] Medication Refill Social History Tobacco Use Types [...] mg Oral TabletIndications: BPH without urinary obstruction TAKE 1 TAB BY MOUTH NEEDED. FOR ERECTILE DYSFUNCTION (NOT COVERED) 90 Tablet 2 02/20/2023 documented in this encounter Plan of Treatment Upcoming Encounters Date Type Department Care Team (Late st Contact Info) Description 06/28/2024 9:40 AM EST Clinical Support [facility] [address] [phone] 11/19/2024 1:40 PM EDT Office Visit [facility] [address] [place] [address] Lyndsay Brewer, DO [address] [place] [address] documented as of this encounter [...] MOUTH NEEDED. FOR ERECTILE DYSFUNCTION (NOT COVERED) 07/01/2022 02/20/2023 documented as of this encounter Care Teams Data Analytics Specialist Relationship Specialty Start Date End Date Steffanie Fulton APRN [address] [place] [address] PCP - General Nurse Practitioner 07/26/21 documented as of this encounter
--- OUTSIDE RECORDS SUMMARY | 2024-05-29 15:36 | XMS_ITS | Encounter Summary ---
Author Organization [place] [address] Care Team Providers Care Intelligence Officer Basic Name Role Phone Steffanie Fulton APRN Primary Care Provider +1- [phone] Reason for Visit * Reason Comments Injections Encounter Details Date Type Department Care Team (Late st Contact Info) Description 06/21/2023 10:40 AM EST Immunization [facility] [place] [facility] [address] [place] [address] Immunization/Injectio n, Medications Social History Tobacco Use Types Packs/Day Years [...] EST Clinical Support [facility] [address] [place] [address] 11/19/2024 1:40 PM EDT Office Visit [facility] [address] [place] [address] Lyndsay Brewer DO [address] [place] [address] documented as of this encounter Goals Goal Patient Goal Type Associated Problems Recent Progress Patient-Stated? Author Blood Pressure < 140/90 Blood Pressure 134/84(2023 1:16 PM EST) No Yana Choi RMA Eat better, exercise, reach an ideal body weight General No Yana Choi RMA Stay Tobacco Free Lifestyle No Yana Choi RMA documented as of this encounter Visit Diagnoses Diagnosis Flu vaccine need- Primary Need for prophylactic vaccination and inoculation against influenza Vitamin B 12 deficiency Other B-complex deficiencies documented in this encounter Orders Medications Ordered That Tone ht Not Have Been Administered Count Last Ordered Date First Ordered Date cyanocobalamin injection 1,000 mcg 2 2022 Immunization/Injection Count Last Ordered Date First Ordered Date FLU VACCINE QUADRIVALENT 6MO + 1 06/21/2023 documented in this encounter Care Teams Intelligence Officer Basic Relationship Specialty Start Date End Date Steffanie Fulton APRN [address] [place] [address] PCP - General Nurse Practitioner 07/26/21 documented as of this encounter
--- OUTSIDE RECORDS SUMMARY | 2024-05-29 15:36 | XMS_ITS | Encounter Summary ---
Author Organization [place] [address] Care Team Providers Care Advertising Agent Name Role Phone Steffanie Fulton APRN Primary Care Provider +1- [phone] Encounter Details Date Type Department Care Team (Late st Contact Info) Description 02/24/2023 Orders Only [facility] [address] [place] [phone] Maddy White, RMA [address] [place] [address] BPH without urinary obstruction Social History Tobacco Use Types Packs/Day Years [...] Magdaleno Elliott LPN documented in this encounter Plan of Treatment Upcoming Encounters Date Type Department Care Team (Late st Contact Info) Description 06/28/2024 9:40 AM EST Clinical Support [facility] [place] [address] [place] [phone] 11/19/2024 1:40 PM EDT Office Visit [facility] [address] [place] [address] Lyndsay Brewer, DO [address] [place] [address] documented as of this encounter [...] tract symptoms (LUTS) documented in this encounter Additional Health Concerns Infection Onset Date Last Indicated Resolved Time INFLUENZA 02/24/2023 02/24/2023 03/10/2023 10:1 3 PM EDT documented as of this encounter Care Teams Advertising Agent Relationship Specialty Start Date End Date Steffanie Fulton APRN [address] [place] [address] PCP - General Nurse Practitioner 07/26/21 documented as of this encounter
--- OUTSIDE RECORDS SUMMARY | 2024-05-29 15:36 | XMS_ITS | Encounter Summary ---
Author Organization [place] [address] Care Team Providers Care Sawmilling Operator Name Role Phone Steffanie Fulton APRN Primary Care Provider +1- [phone] Reason for Visit * Reason Onset Date Comments Medication Refill 06/23/2023 Encounter Details Date Type Department Care Team (Late st Contact Info) Description 06/23/2023 Refill [facility] [address] [place] [address] Genna Day MA Medication Refill Social History Tobacco Use Types [...] Ligia Gonzales MA documented in this encounter Plan of Treatment Upcoming Encounters Date Type Department Care Team (Late st Contact Info) Description 06/28/2024 9:40 AM EST Clinical Support [facility] [address] [place] [phone] 11/19/2024 1:40 PM EDT Office Visit [facility] [address] [place] [address] Lyndsay Brewer DO [address] [place] [address] documented as of this encounter [...] on filedocumented in this encounter Care Teams Sawmilling Operator Relationship Specialty Start Date End Date Steffanie Fulton APRN [address] [place] [address] PCP - General Nurse Practitioner 07/26/21 documented as of this encounter
--- OUTSIDE RECORDS SUMMARY | 2024-05-29 15:36 | XMS_ITS | Encounter Summary ---
Author Organization [place] [address] Care Team Providers Care Signal Maintainer Helper Name Role Phone Kirstin Steffanie YOLI Primary Care Provider [phone] Reason for Visit * Reason Comments Medication Refill Encounter Details Date Type Department Care Team (Late st Contact Info) Description 06/13/2023 Refill [facility] [address] [place] [phone] KirstinSteffanieYOLI [address] [facility] [place] [address] Medication Refill Social History Tobacco Use Types [...] Last Filled Start Date End Date albuterol (VENTOLIN HFA) 90 mcg/actuation Inhl HFA Aerosol InhalerIndications :Encounter for medication refill INHALE 1 TO 2 PUFFS BY MOUTH EVERY 4 HOURS NEEDED FOR WHEEZING 18 Each 06/13/2023 documented in this encounter Miscellaneous Notes * Telephone Encounter - Scott Crystal CPhT - 06/13/2023 3:34 PM EST Ventolin - Medication Refill Protocol failed due to appointment. [facility] Reason: Past follow-up date noted by protocol. Protocol required follow-up within 6 months. Patient most recently had appointment on 05/16/23 but associated diagnosis not assessed. [facility] Action: Approved 1st carter 30-day supply of medication Routed to office staff for outreach to schedule appointment. [facility] NA documented in this encounter Plan of Treatment Upcoming Encounters Date Type Department Care Team (Late st Contact Info) Description 06/28/2024 9:40 AM EST Clinical Support [facility] [address] [place] [phone] 11/19/2024 1:40 PM EDT Office Visit [facility] Neurology [facility] [address] [place] [phone] Lyndsay Brewer, DO [address] [place] [address] documented as of this encounter Goals Goal Patient Goal Type Associated Problems Recent Progress Patient-Stated? Author Blood Pressure < 140/90 Blood Pressure 134/84(2023 1:16 PM EST) No Yana Choi RMA Eat better, exercise, reach an ideal body weight General No Yana Choi RMA Stay Tobacco Free Lifestyle No Yana Choi RMA documented as of this encounter Visit Diagnoses Diagnosis Encounter for medication refill Issue of repeat prescriptions documented in this encounter Discontinued Medications Medication Sig Discontinue Reason Start Date End Da te albuterol (PROVENTIL HFA;VENTOLIN HFA) 90 mcg/actuation Inhl HFA Aerosol InhalerIndications:Enco unter for medication refill INHALE 1 TO 2 PUFFS BY MOUTH EVERY 4 HOURS NEEDED FOR WHEEZING 09/02/2022 06/13/2023 documented as of this encounter Care Teams Signal Maintainer Helper Relationship Specialty Start Date End Date Steffanie Fulton APRN [address] [place] [phone] PCP - General Nurse Practitioner 07/26/21 documented as of this encounter
--- OUTSIDE RECORDS SUMMARY | 2024-05-29 15:36 | XMS_ITS | Encounter Summary ---
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 Name Role Phone Steffanie Fulton APRN Primary Care Provider [phone]- [phone] Reason for Referral * Consultation (Routine) - Closed Specialty Diagnoses / Procedures Referred By Gus t Referred To Contact Dermatology Diagnoses Lip lesion Steffanie Fulton APRN [address] [place] [address] Phone: tel: fax: [facility] D[facility] [address] [place] [address] Phone: tel: fax: Referral ID Status Reason Start Date Expiration Date Visits Re quested Visits Authorized [id number] Closed 02/28/2023 02/28/2024 99 99 Question Answer Provider Options First Available Reason for Visit * Reason Comments Fatigue Dizziness Encounter Details Date Type Department Care Team (Late st Contact Info) Description 02/24/2023 2:15 PM EDT Office Visit [facility] [address] [place] [phone] Steffanie Fulton APRN [address] [place] [address] Lip lesion (Primary Dx); Dizziness; Pre-diabetes; Strep pharyngitis; Influenza B Social History Tobacco Use Types Packs/Day Years [...] AM EDT documented as of this encounter Last Filed Vital Signs Vital Sign Reading Time Taken Comments Blood Pressure 120/78 02/24/2023 2:24 PM EDT Pulse 80 02/24/2023 2:24 PM EDT Temperature 36.7 ??C (98 ??F) 02/24/2023 2:24 PM EDT Respiratory Rate - - Oxygen Saturation 99% 02/24/2023 2:24 PM EDT Inhaled Oxygen Concentration - - Weight 100.7 kg (222 lb) 02/24/2023 2:24 PM EDT Height 170.2 cm (5' 7 ) 02/24/2023 2:24 PM EDT Body Mass Index 34.77 02/24/2023 2:24 PM EDT documented in this encounter Functional [...] Refills Last Filled Start Date End Date oseltamivir (TAMIFLU) 75 mg Oral CapsuleIndications :Influenza B Take 1 Capsule by mouth 2 times daily for 5 days. 10 Capsule 02/24/2023 3 amoxicillin (AMOXIL) 500 mg Oral CapsuleIndications :Strep pharyngitis Take 1 Capsule by mouth 2 times daily for 10 days. 20 Capsule 02/24/2023 3 documented in this encounter Progress Notes * Steffanie Fulton APRN - 02/24/2023 2:15 PM EDT Vitals: 02/24/23 1424 BP: 120/78 Pulse: 80 Temp: 98 ??F (36.7 ??C) TempSrc: Temporal SpO2: 99% Weight: 222 lb (100.7 kg) Height: 5' 7 (1.702 m) SUBJECTIVE: Chief Complaint Patient presents with Fatigue Dizziness HPI: Pt c/o weakness, increased dizziness, possible vertigo x 1 day No chest pain or sob Voice is hoarse +congestion and sore throat States not feeling well and grandchildren have been ill Review of Systems Constitutional: Positive for fatigue. HENT: Positive for congestion, postnasal drip, rhinorrhea, sore throat and voice change. Respiratory: Positive for cough. Gastrointestinal: Negative. Neurological: Positive for dizziness. OBJECTIVE: Physical Exam Constitutional: Appearance: Normal appearance. HENT: Head: Normocephalic and atraumatic. Right Ear: Tympanic membrane normal. Left Ear: Tympanic membrane normal. Nose: Congestion and rhinorrhea present. Mouth/Throat: Pharynx: Posterior oropharyngeal erythema present. Eyes: Conjunctiva/sclera: Conjunctivae normal. Pupils: Pupils are equal, round, and reactive to light. Cardiovascular: Rate and Rhythm: Normal rate and regular rhythm. Pulses: Normal pulses. Heart sounds: Normal heart sounds. Pulmonary: Effort: Pulmonary effort is normal. Breath sounds: Normal breath sounds. Abdominal: General: Bowel sounds are normal. Palpations: Abdomen is soft. Neurological: Mental Status: He is alert. Assessment Diagnoses and all orders for this visit: Lip lesion - AMB REFERRAL TO DERMATOLOGY Dizziness - POCT EKG - CBC WITH DIFF; Future - COMPREHENSIVE METABOLIC PANEL; Future Pre-diabetes - TSH REFLEX; Future - HEMOGLOBIN A1C; Future - LIPID PANEL REFLEX; Future Strep pharyngitis - POCT RAPID STREP A - amoxicillin (AMOXIL) 500 mg Oral Capsule; Take 1 Capsule by mouth 2 times daily for 10 days. Dispense: 20 Capsule; Refill: 0 Influenza B - POCT JOSIE SARS ANTIGEN - POCT JOSIE INFLUENZA A/B - oseltamivir (TAMIFLU) 75 mg Oral Capsule; Take 1 Capsule by mouth 2 times daily for 5 days. Dispense: 10 Capsule; Refill: 0 documented in this encounter Plan of Treatment Upcoming Encounters Date Type Department Care Team (Late st Contact Info) Description 06/28/2024 9:40 AM EST Clinical Support [facility] [address] [place] [phone] 11/19/2024 1:40 PM EDT Office Visit [facility] Neurology [facility] [address] [place] [phone] Lyndsay Brewer, DO [address] [place] [address] Scheduled Referrals Name Type Priority Associated Diagnoses Order Schedule AMB REFERRAL TO DERMATOLOGY Outpatient Referral Routine Lip lesion Ordered: 02/28/2023 documented as of this encounter Goals Goal [...] Diagnosis Comments POCT JOSIE SARS ANTIGEN Routine 02/28/2023 4:13 PM EDT Influenza B POCT EKG Routine 02/28/2023 4:13 PM EDT Dizziness POCT RAPID STREP A Routine 02/28/2023 4: 10 PM EDT Strep pharyngitis POCT JOSIE INFLUENZA A/B Routine 02/24/2023 3:04 PM EDT Influenza B documented in this encounter Results * (ABNORMAL) LIPID PANEL REFLEX (11/01/2023 10:02 AM EDT) Cholesterol 128 <200 mg/dL 11/01/2023 9:14 PM EDT [facility] Comment: < 200 ?Desirable 200 - 239 ? Borderline High >= 240 ?High Triglyceride 64 <150 mg/dL 11/01/2023 9:14 PM EDT [facility] Comment: < 150 ? Normal 150 - 199 ?Borderline High 200 - 499 ?High ??>= 500 ? Very High HDL 39(L) >=40 mg/dL 11/01/2023 9:14 PM EDT [facility] Comment: ??> 60 ?Optimal 40 - 60 ?Acceptable ?? < 40 ?Low LDL Calculated 76 <100 mg/dL 11/01/2023 9:14 PM EDT [facility] Non-HDL-C Calculated 89 <=129 mg/dL 11/01/2023 9:14 PM EDT [facility] Comment: <130 ?Desirable 130-159 Above Desirable 160-189 Borderline High 190-219 High >= 220 ??Very High Fasting Specimen? Yes None 024 9:14 PM EDT [facility] Blood VENOUS BLOOD / Unknown Venipuncture / Unknown 11/01/2023 10:02 AM EDT 11/01/2023 10:02 AM EDT us Steffanie Gastright MARKET INTELLIGENCE CONSULTANT CHEMISTRY ORDERABLES Final Result [facility] [address] [facility], [place] [address] [facility] [address] [place] [address] * HEMOGLOBIN A1C (11/01/2023 10:02 AM EDT) [facility] Hgb A1C 5.6 4.2 - 5.6 % 11/01/2023 3:35 PM EDT [facility] Est. Avg Glucose 114 mg/dL 11/01/2023 3:35 PM EDT [facility] Blood VENOUS BLOOD / Unknown Venipuncture / Unknown 11/01/2023 10:02 AM EDT 11/01/2023 10:02 AM EDT Narrative [facility] - 11/01/2023 3:35 PM EDT REFERENCE RANGE: Normal: 4.0-5.6% Pre-diabetes: 5.7-6.4% Provisional diagnosis of diabetes: >6.4% Hgb F>10% and anything which shortens red cell survival, such as hemolytic anemia, or unstable hemoglobin variants such as HbSS, HbSC, or HbCC, will lower the HbA1c value associated with a given level of glycemic control. ? [facility] CHEMISTRY ORDERABLES Final Result Performing Organization Address [facility] de Phone Number [facility]REF[facility], [address] , [place] [address] * TSH REFLEX (11/01/2023 10:02 AM EDT) Pathologist [facility] TSH Reflex 2.400 0.270 - 4.200 mcIU/mL 11/01/2023 9:14 PM EDT [facility] Blood VENOUS BLOOD / Unknown Venipuncture / Unknown 11/01/2023 10:02 AM EDT 11/01/2023 10:02 AM EDT Narrative [facility] - 11/01/2023 9:14 PM EDT Ingestion of john doses of biotin (>5 mg/day) taken within 8 hours of drawing blood sample can interfere with this immunoassay test. [facility] CHEMISTRY ORDERABLES Final Result Performing Organization Address [facility] Phone Number [facility] [employer] [facility], [address] , [place] [address] * (ABNORMAL) COMPREHENSIVE METABOLIC PANEL (11/01/2023 10:02 AM EDT) Pathologist [facility] Sodium 140 136 - 145 mmol/L 11/01/2023 9:14 PM EDT [facility] Potassium 4.1 3.5 - 5.0 mmol/L 11/01/2023 9:14 PM EDT [facility] Chloride 104 98 - 107 mmol/L 11/01/2023 9:14 PM EDT [facility] Total CO2 23 22 - 29 mmol/L 11/01/2023 9:14 PM EDT [facility] Anion Gap 13 7 - 16 mmol/L 11/01/2023 9:14 PM EDT [facility] Calcium 9.6 8.6 - 10.4 mg/dL 11/01/2023 9:14 PM EDT [facility] Glucose Lvl 112(H) 70 - 99 mg/dL 11/01/2023 9:14 PM EDT [facility] BUN 17 6 - 20 mg/dL 11/01/2023 9:14 PM EDT [facility] Creatinine 0.94 0.67 - 1.30 mg/dL 11/01/2023 9:14 PM EDT [facility] Albumin 4.6 3.5 - 5.2 gm/dL 11/01/2023 9:14 PM EDT [facility] Total Protein 7.6 6.4 - 8.3 gm/dL 11/01/2023 9:14 PM EDT [facility] Bili Total 0.5 0.2 - 1.4 mg/dL 11/01/2023 9:14 PM EDT [facility] ALT 36 <=41 U/L 11/01/2023 9:14 PM EDT [facility] AST 31 <=40 U/L 11/01/2023 9:14 PM EDT [facility] Alk Phos 134(H) 40 - 129 U/L 11/01/2023 9:14 PM EDT [facility] eGFR (CKD-EPIcr 2020) 96 >=60 mL/min/1.7 3 m2 11/01/2023 9:14 PM EDT [facility] Comment:Estimated GFR was ca lculated using the CKD-EPIcr (2020) equation refit without race. The equation is recommended by the National Kidney Foundation - [place] [employer] Neph[employer] Task Force. Blood VENOUS BLOOD / Unknown Venipuncture / Unknown 11/01/2023 10:02 AM EDT 11/01/2023 10:02 AM EDT us Steffanie Gastright MARKET INTELLIGENCE CONSULTANT CHEMISTRY ORDERABLES Final Result [facility] [address] [facility] , [address] [place] [phone] [facility] [address] [place] [phone] * CBC WITH DIFF (11/01/2023 10:02 AM EDT) WBC 5.3 3.7 - 10.3 x10(3)/mcL 11/01/2023 2:41 PM EDT [facility] RBC 4.61 4.60 - 6.10 x10(6)/mcL 11/01/2023 2:41 PM EDT [facility] Hgb 14.5 13.7 - 17.5 g/dL 11/01/2023 2:41 PM EDT [facility] Hct 43.7 40.0 - 51.0 % 11/01/2023 2:41 PM EDT [facility] MCV 94.8 80.0 - 100.0 fL 11/01/2023 2:41 PM EDT [facility] MCH 31.5 26.0 - 34.0 pg 11/01/2023 2:41 PM EDT [facility] MCHC 33.2 30.7 - 35.5 g/dL 11/01/2023 2:41 PM EDT [facility] RDW 13.0 <=14.9 % 11/01/2023 2:41 PM EDT [facility] Platelet 167 155 - 369 x10(3)/mcL 11/01/2023 2:41 PM EDT [facility] MPV 10.4 8.8 - 12.5 fL 11/01/2023 2:41 PM EDT [facility] Neut Percent 63.8 % 11/01/2023 2:41 PM EDT [facility] Comment:Neutrophils equals s egs plus bands Imm Gran% 0.6 % 11/01/2023 2:41 PM EDT [facility] Comment:Automated count of m etamyelocytes, myelocytes and promyelocytes. Lymph Percent 26.6 % 11/01/2023 2:41 PM EDT [facility] Mower Percent 7.5 % 11/01/2023 2:41 PM EDT [facility] Eos Percent 0.9 % 11/01/2023 2:41 PM EDT [facility] Baso Percent 0.6 % 11/01/2023 2:41 PM EDT [facility] Neut # 3.4 1.6 - 6.1 x10(3)/[facility] 11/01/2023 2:41 PM EDT [facility] Comment:Neutrophils equals s egs plus bands IMMGRAN# 0.0 0.0 - 0.1 x10(3)/mcL 11/01/2023 2:41 PM EDT [facility] Comment:Automated count of m etamyelocytes, myelocytes and promyelocytes. An absolute IG <0.1 is reported as 0.0. Lymph # 1.4 1.2 - 3.9 x10(3)/[facility] 11/01/2023 2:41 PM EDT [facility] Mower # 0.4 0.3 - 0.9 x10(3)/[facility] 11/01/2023 2:41 PM EDT [facility] Eos# 0.1 0.0 - 0.5 x10(3)/[facility] 11/01/2023 2:41 PM EDT [facility] Baso # 0.0 0.0 - 0.1 x10(3)/[facility] 11/01/2023 2:41 PM EDT [facility] Blood VENOUS BLOOD / Unknown Venipuncture / Unknown 11/01/2023 10:02 AM EDT 11/01/2023 10:02 AM EDT Steffanie Gastright MARKET INTELLIGENCE CONSULTANT HEMATOLOGY ORDERABLES Karina l Result [facility] [address] [facility] , [place] [address] * POCT JOSIE SARS ANTIGEN (02/28/2023 4:13 PM EDT) SARS Antigen Negative Negative SEP OFFICE Lot Number SEP OFFICE Expiration Date SEP OFFICE SeriAl # SEP OFFICE Control Line Yes YES/NO SEP OFFICE 02/28/2023 4:13 PM EDT Steffanie Gastright MARKET INTELLIGENCE CONSULTANT POINT OF CARE TEST ORDERAB LES Final Result Performing Organization Address City/[facility]/ZIP Co de Phone Number SEP OFFICE * POCT EKG (02/28/2023 4:13 PM EDT) 02/28/2023 4:13 PM EDT [employer] MARKET INTELLIGENCE CONSULTANT POINT OF CARE CARDIOLOGY F inal Result Performing Organization Address [facility] de Phone Number SEP OFFICE * (ABNORMAL) POCT RAPID STREP A (02/28/2023 4:10 PM EDT) Strep A Ag Positive( A) None Detected Pos/Neg SEP OFFICE Lot Number SEP OFFICE Expiration Date SEP OFFICE SeriAl # SEP OFFICE Control Line Yes YES/NO SEP OFFICE 02/28/2023 4:10 PM EDT Steffanie Gastright MARKET INTELLIGENCE CONSULTANT POINT OF CARE TEST ORDERAB LES Final Result Performing Organization Address [facility] de Phone Number SEP OFFICE * (ABNORMAL) POCT JOSIE INFLUENZA A/B (02/24/2023 3:04 PM EDT) Influenza A Antigen Negative Negative 02/24/2023 3:07 PM EDT [facility] Influenza B Antigen Positive(A) Negative 02/24/2023 3:07 PM EDT [facility] Swab SPECIMEN FROM NASOPHARYNGEAL STRUCTURE / Unknown 02/24/2023 3:04 PM EDT 02/24/2023 3:07 PM EDT [employer] MARKET INTELLIGENCE CONSULTANT POINT OF CARE TEST ORDERAB LES Final Result Performing Organization Address [facility] de Phone Number [facility] [address] [place] [phone] documented in this encounter Visit Diagnoses Diagnosis Lip lesion- Primary Diseases of lips Dizziness Dizziness and giddiness Pre-diabetes Other abnormal glucose Strep pharyngitis Streptococcal sore throat Influenza B Influenza with other respiratory manifestations documented in this encounter Additional Health Concerns Infection Onset Date Last Indicated Resolved Time INFLUENZA 02/24/2023 02/24/2023 03/10/2023 10:1 3 PM EDT documented as of this encounter Care Teams Mexican Food Machine Tender Relationship Specialty Start Date End Date Steffanie Fulton APRN [address] [place] [phone] PCP - General Nurse Practitioner 07/26/21 documented as of this encounter
--- OUTSIDE RECORDS SUMMARY | 2024-05-29 15:36 | XMS_ITS | Encounter Summary ---
Author Organization 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 Encounter Details Date Type Department Care Team (Late st Contact Info) Description 04/18/2023 11:03 AM EDT - 04/18/2023 12:30 PM EDT Emergency [facility] [address] [place] [address] Catherine Laureano MD [address] [place] [phone] Glenis Persaud MD [address] [place] [phone] Laceration of left little finger without foreign body without damage to nail, initial encounter (Primary Dx) Discharge Disposition: Home or Self [...] Sign Reading Time Taken Comments Blood Pressure 157/93 04/18/2023 11:01 AM EDT Pulse 79 04/18/2023 11:01 AM EDT Temperature 36.9 ??C (98.4 ??F) 04/18/2023 11:01 AM E DT Respiratory Rate 16 04/18/2023 11:01 AM EDT Oxygen Saturation 98% 04/18/2023 11:01 AM EDT Inhaled Oxygen Concentration - - Weight 98.4 kg (217 lb) 04/18/2023 11:01 AM EDT Height 170.2 cm (5' 7 ) 04/18/2023 11:01 AM EDT Body Mass Index 33.99 04/18/2023 11:01 AM EDT documented in this encounter Functional [...] Magdaleno Elliott LPN documented in this encounter Discharge Instructions * Discharge Instructions* Adina Finley Medical Student - 04/18/2023 12:07 PM EDT Zuhair, Today you were seen for a finger laceration. Please keep the wound clean. Keep stitches in finger for about 1 week. documented in this encounter Medications at Time of Discharge betamethasone dipropionate (DIPROLENE) 0.05 % Top OintmentIndications :Psoriasis APPLY TO AFFECTED AREA EVERY DAY 15 g 2 11/04/2021 fluticasone propionate (FLONASE) 50 mcg/actuation Nasl Benton, SuspensionIndicatio ns:Moderate persistent asthma, uncomplicated SPRAY 1 SPRAY INTO EACH NOSTRIL EVERY DAY 32 mL 1 11/04/2021 Nebulizer Accessories (ALL FLOW 4000 KIT) [facility] equivalent 1 Each 0 06/27/2012 albuterol (PROVENTIL HFA;VENTOLIN HFA) 90 mcg/actuation Inhl HFA Aerosol InhalerIndications: Encounter for medication refill INHALE 1 TO 2 PUFFS BY MOUTH EVERY 4 HOURS NEEDED FOR WHEEZING 6.7 Each 1 09/02/2022 3 budesonide-formoter oL (SYMBICORT) 160-4.5 mcg/actuation Inhl HFA Aerosol InhalerIndications: History of asthma Inhale 2 Puffs into the lungs 2 times daily. 30.6 Each 2 11/23/2022 4 hydroCHLOROthiazide (MICROZIDE) 12.5 mg Oral CapsuleIndications: Essential hypertension Take 1 Capsule by mouth daily. 90 Capsule 1 11/23/2022 4 losartan (COZAAR) 50 mg Oral TabletIndications:E ssential hypertension Take 1 Tablet by mouth 2 times daily. 180 Tablet 1 11/23/2022 4 montelukast (SINGULAIR) 10 mg Oral TabletIndications:M oderate persistent asthma without complication TAKE 1 TABLET BY MOUTH EVERY DAY AT NIGHT 90 Tablet 1 12/19/2022 4 tamsulosin (FLOMAX) 0.4 mg Oral CapsuleIndications: BPH without urinary obstruction TAKE 2 CAPSULES BY MOUTH EVERY DAY AT NIGHT 180 Capsule 1 01/19/2023 4 documented as of this encounter Discharge Disposition Disposition Code Departure Means Destination Comment s Home or Self Half-Way documented in this encounter ED Notes * Catherine Laureano MD - 04/18/2023 10:15 AM EDT IAdina, Medical Student, saw this patient with my attending, CATHERINE LAUREANO TAYLOR L EPLEY, JANELL M, and participated in the documentation in this note. 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 male who presents with L little finger laceration. He was using a snag grinder on his car, he turned his hand on the snag grinder slid onto his little finger and partially on his ring finger. He is able to move his hand fully with no pain. Last tetanus shot 2019. REVIEW OF SYSTEMS Review of Systems Constitutional: Negative for chills and fever. Respiratory: Negative for cough. Cardiovascular: Negative for chest pain. Gastrointestinal: Negative for nausea and vomiting. Musculoskeletal: Negative for joint pain and myalgias. Skin: Negative for rash. Neurological: Negative for dizziness and headaches. See HPI for further details. Review of systems otherwise negative. PAST MEDICAL HISTORY Past Medical History: Diagnosis Date Arthritis Asthma 06/02/2010 Bipolar affective (HCC) Blood transfusion EPHRAIM (generalized anxiety disorder) Heart attack (HCC) Heroin abuse (HCC) Quit August Hypertension IBS (irritable bowel syndrome) Opiate dependence (HCC) Remission x 5 years Pneumonia Pneumothorax FAMILY HISTORY Family History Problem Relation Age of Onset Diabetes Mother Heart Disease Mother High Blood Pressure Mother High Cholesterol Mother Cancer Father 40 stomach Other (Diabetes living) Sister 1 sister passed No Known Problems Brother Diabetes Maternal Grandmother No Known Problems Maternal Grandfather Cancer Paternal Grandmother SOCIAL HISTORY Social History Socioeconomic History Marital status: Legally Spouse name: None Number of children: None Years of education: None Highest education level: None Tobacco Use Smoking status: Never Smokeless tobacco: Current Types: Snuff Vaping Use Vaping Use: Never used Substance and Sexual Activity Alcohol use: No [...] (Medical): No Lack of Transportation (Non-Medical): No SURGICAL HISTORY Past Surgical History: Procedure Laterality Date COLONOSCOPY N/A 08/18/2020 Colonoscopy with biopsy and cold snare polypectomy; Surgeon: Michael Mckeon MD; Location: [facility]; Service: Endoscopy ELBOW SURGERY LEFT LIGAMENT REPAIR EYE SURGERY RIGHT RETINA REPAIR WITH BUCKLE FRACTURE SURGERY left leg, after accident HERNIA REPAIR RIGHT INGUINAL WITH MESH HIP ARTHROPLASTY Left 07/26/2017 LEFT TOTAL HIP ARTHROPLASTY- REVISION-ANTERIOR ; Surgeon: Augie Ramires MD; Location: [facility]; Service: Orthopedics KNEE SURGERY LEFT ACL RECONSTRUCTION KNEE SURGERY LEFT ARTHROSCOPIES IRRAGATION X 7 FOR INFECTION KNEE SURGERY RIGHT ARTHROSCOPIC MENICUS REPAIR SHOULDER ARTHROSCOPY Right 11/29/2019 RIGHT SHOULDER ARTHROSCOPIC ROTATOR CUFF REPAIR DECOMPRESSION ACROMIOPLASTY, ACROMIOCLAVICULAR JOINT EXCISION; Surgeon: Kenny Loja MD; Location: [facility]; Service: Orthopedics TOTAL HIP ARTHROPLASTY Left 2009 CURRENT MEDICATIONS Current Facility-Administered Medications: bupivacaine HCl (MARCAINE) 0.5 % (5 mg/mL) injection 2 mL, 2 mL, Intra- articular, , Augie Ramires MD, 2 mL at 08/16/21 7327 Current Outpatient Medications: albuterol (PROVENTIL HFA;VENTOLIN HFA) 90 mcg/actuation Inhl HFA Aerosol Inhaler, INHALE 1 TO 2 PUFFS BY MOUTH EVERY 4 HOURS NEEDED FOR WHEEZING, Disp: 6.7 Each, Rfl: 1 albuterol (PROVENTIL) 2.5 mg /3 mL (0.083 %) Inhl Solution for Nebulization, TAKE 3 ML BY NEBULIZATION EVERY 4 HOURS NEEDED FOR WHEEZING, Disp: 150 mL, Rfl: 1 amLODIPine (NORVASC) 5 mg Oral Tablet, TAKE 1 TABLET BY MOUTH EVERY DAY, Disp: 90 Tablet, Rfl: 3 atorvastatin (LIPITOR) 40 mg Oral Tablet, Take 1 Tablet by mouth nightly., Disp: 30 Tablet, Rfl: 11 betamethasone dipropionate (DIPROLENE) 0.05 % Top Ointment, APPLY TO AFFECTED AREA EVERY DAY, Disp:15 g, Rfl: 2 budesonide-formoteroL (SYMBICORT) 160-4.5 mcg/actuation Inhl HFA Aerosol Inhaler, Inhale 2 Puffs into the lungs 2 times daily., Disp: 30.6 Each, Rfl: 2 celecoxib (CELEBREX) 200 mg Oral Capsule, TAKE 1 CAPSULE BY MOUTH TWICE A DAY, Disp: 60 Capsule, Rfl: 11 colestipoL (COLESTID) 1 gram Oral Tablet, TAKE 1 TABLET BY MOUTH 2 TIMES DAILY. NEEDS AN APPOINTMENT, Disp: 60 Tablet, Rfl: 0 dextromethorphan-guaiFENesin (MUCINEX DM) 30-600 mg Oral Tablet Sustained Release 12 hr, Take 1 Tablet by mouth every 12 hours., Disp: 20 Tablet, Rfl: 0 diclofenac (VOLTAREN) 1 % Top Gel, APPLY 2 GRAMS TOPICALLY 4 TIMES DAILY DIRECTED., Disp: 100 g,Rfl: 1 fluticasone propionate (FLONASE) 50 mcg/actuation Nasl Benton, Suspension, SPRAY 1 SPRAY INTO EACH NOSTRIL EVERY DAY, Disp: 32 mL, Rfl: 1 hydroCHLOROthiazide (MICROZIDE) 12.5 mg Oral Capsule, Take 1 Capsule by mouth daily., Disp: 90 Capsule, Rfl: 1 losartan (COZAAR) 50 mg Oral Tablet, Take 1 Tablet by mouth 2 times daily., Disp: 180 Tablet, Rfl: 1 montelukast (SINGULAIR) 10 mg Oral Tablet, TAKE 1 TABLET BY MOUTH EVERY DAY AT NIGHT, Disp: 90 Tablet, Rfl: 1 Nebulizer Accessories (ALL FLOW 4000 KIT) Misc, Formulary equivalent, Disp: 1 Each, Rfl: 0 tadalafiL (CIALIS) 5 mg Oral Tablet, TAKE 1 TAB BY MOUTH NEEDED. FOR ERECTILE DYSFUNCTION (NOT COVERED), Disp: 90 Tablet, Rfl: 2 tamsulosin (FLOMAX) 0.4 mg Oral Capsule, TAKE 2 CAPSULES BY MOUTH EVERY DAY AT NIGHT, Disp: 180 Capsule, Rfl: 1 tiZANidine (ZANAFLEX) 2 mg Oral Tablet, TAKE 1 TABLET BY MOUTH THREE TIMES A DAY, Disp: 90 Tablet, Rfl: 1 ALLERGIES Allergies Allergen Reactions Abilify [Aripiprazole] Other (See Comments) convulsions Unable To Assess Patient does not take any narcotic medications PHYSICAL EXAM ED Triage Vitals Temp 04/18/23 1101 98.4 ??F (36.9 ??C) Pulse 04/18/23 1017 92 Resp 04/18/23 1017 18 BP 04/18/23 1101 157/93 SpO2 04/18/23 1017 97 % Height 04/18/23 1101 5' 7 (1.702 m) Weight 04/18/23 1101 217 lb (98.4 kg) refer to nursing notes for most recent vital signs Physical Exam Constitutional: Appearance: Normal appearance. HENT: Head: Normocephalic. Eyes: Conjunctiva/sclera: Conjunctivae normal. Cardiovascular: Rate and Rhythm: Normal rate and regular rhythm. Pulses: Normal pulses. Heart sounds: No murmur heard. Pulmonary: Effort: Pulmonary effort is normal. No respiratory distress. Musculoskeletal: Left hand: Laceration (4 cm lac to L little finger, able to see to wound base) present. No tenderness or bony tenderness. Normal range of motion. Normal strength. Normal sensation. There is no disruption of two-point discrimination. Normal capillary refill. Normal pulse. Cervical back: Normal range of motion. Neurological: Mental Status: He is alert. Laceration Repair Procedure Note Indication: Laceration Timeout performed per policy and procedure. Procedure: The patient was placed in the appropriate position and anesthesia around the laceration was obtained by infiltration using 1% Lidocaine with epinephrine. The area was then cleansed using 3% PCMX. The laceration was closed with 4-0 Prolene using interrupted sutures. There were no additional lacerations requiring repair. Total repaired wound length: 4 cm. Other Items: Suture count: 4 The patient tolerated the procedure well. Complications: None Procedure was performed by the rotating fourth-year medical student. I was present for all bennett portions of the repair. LABS/RADIOLOGY/PROCEDURES Labs Reviewed - No data to display XR FINGER LEFT MINIMUM 2 VW Final Result XR FINGER LEFT MINIMUM 2 VW, 04/18/2023 11:26 AM CLINICAL HISTORY: -EXTREMITY LACERATION - 5th digit COMPARISON: None. PROCEDURE COMMENTS: XR FINGER LEFT MINIMUM 2 VW FINDINGS: No acute fracture or dislocation. Mild/moderate multifocal arthrosis most evident at the second and third DIP joints. Few tiny punctate radiodensities in the dorsal soft tissues of the distal phalanx of the fifth finger, nonspecific but may relate to a tiny retained foreign bodies. IMPRESSION: 1. No acute osseous abnormality. 2. Few tiny punctate radiodensities in the dorsal soft tissues of the distal phalanx of the fifth finger, nonspecific but may relate to tiny retained foreign bodies. - Note: Radiology results need to be interpreted within a comprehensive clinical context. If you have questions about the radiology report, please contact the office of the ordering clinician. No orders to display COURSE & MEDICAL DECISION MAKING Pertinent Labs & Imaging studies reviewed. (See chart for details) Medications lidocaine-EPINEPHrine 1 %-1:100,000 injection 10 mL (10 mL Infiltration Given 04/18/23 1130) Medical Decision Making Zuhair presented for a finger laceration. Base of the wound was cleaned and assessed. He was able to move fully with no restrictions. There was no tenderness of finger, no tendon involvement suspected. Tetanus shot in 2019, up to date. Wound cleaned, 4 stitches placed. Wound well approximated. Stitches to stay in for one week. Laceration procedure was performed by the rotating fourth-year medical student. I was present for the bennett portions of the exam Patient was seen in the emergency department and evaluated for the chief complaint as described in history of present illness. Complete history and physical were performed. Patient's presenting symptoms, physical exam, and diagnostic evaluation are consistent with laceration of little finger ED Current Prescriptions None I reviewed the patient's medical record. FINAL IMPRESSION 1. Laceration of left little finger without foreign body without damage to nail, initial encounter Condition at Disposition: dc stable to home Catherine Laureano MD 04/18/23 1457 documented in this encounter Plan of Treatment Upcoming Encounters Date Type Department Care Team (Late st Contact Info) Description 06/28/2024 9:40 AM EST Clinical Support [facility] [address] [place] [phone] 11/19/2024 1:40 PM EDT Office Visit [facility] [address] [place] [address] Lyndsay Brewer DO [address] [place] [address] documented as of this encounter [...] Name Priority Date/Time Associated Diagnosis Comments XR FINGER LEFT MINIMUM 2 VW EULOGIO 04/18/2023 11:26 AM EDT documented in this encounter Results * XR FINGER LEFT MINIMUM 2 VW (04/18/2023 11:26 AM EDT) Anatomical Region Laterality Modality Hand Radiographic Pauly ging 04/18/2023 11:2 6 AM EDT Impressions 04/18/2023 11:43 AM EDT 1. ??No acute osseous abnormality. 2. ??Few tiny punctate radiodensities in the dorsal soft tissues of the distal phalanx of the fifth finger, nonspecific but may relate to tiny retained foreign bodies. - Note: Radiology results need to be interpreted within a comprehensive clinical context. ??If you have questions about the radiology report, please contact the office of the ordering clinician. Narrative 04/18/2023 11:43 AM EDT XR FINGER LEFT MINIMUM 2 VW, ??04/18/2023 11:26 AM CLINICAL HISTORY: ??-EXTREMITY LACERATION - 5th digit COMPARISON: ??None. PROCEDURE COMMENTS: XR FINGER LEFT MINIMUM 2 VW FINDINGS: No acute fracture or dislocation. Mild/moderate multifocal arthrosis most evident at the second and third DIP joints. Few tiny punctate radiodensities in the dorsal soft tissues of the distal phalanx of the fifth finger, nonspecific but may relate to a tiny retained foreign bodies. Procedure Note Duncan Valencia, DO - 04/18/2023 XR FINGER LEFT MINIMUM 2 VW, 04/18/2023 11:26 AM CLINICAL HISTORY: -EXTREMITY LACERATION - 5th digit COMPARISON: None. PROCEDURE COMMENTS: XR FINGER LEFT MINIMUM 2 VW FINDINGS: No acute fracture or dislocation. Mild/moderate multifocal arthrosismost evident at the second and third DIP joints. Few tiny punctateradiodensities in the dorsal soft tissues of the distal phalanx of the fifth finger,nonspecific but may relate to a tiny retained foreign bodies. IMPRESSION: 1. No acute osseous abnormality. 2. Few tiny punctate radiodensities in the dorsal soft tissues of thedistal phalanx of the fifth finger, nonspecific but may relate to tiny retainedforeign bodies. - Note: Radiology results need to be interpreted within a comprehensiveclinical context. If you have questions about the radiology report, please contactthe office of the ordering clinician. Glenis Persaud MD IMG DIAGNOSTIC IMAGING OR DERABLES Final Result documented in this encounter Visit Diagnoses Diagnosis Laceration of left little finger without foreign body without damage to nail, initial encounter- Primary documented in this encounter Administered Medications Inactive Administered Medications - up to 1 most recent administrations Medication Order MAR Action Action Date Dose Rate Site lidocaine-EPINEPHrine 1 %-1:100,000 injection 10 mL 10 mL, Infiltration, ONCE, 1 dose, On Tu04/18/23 at 1130 Given 04/18/2023 11:30 AM EDT 10 mL documented in this encounter Active and Recently Administered Medications Times are shown in EDT. Scheduled Medication Order 04/16/2023 04/17/2023 04/18/2023 lidocaine-EPINEPHrine 1 %-1:100,000 injection 10 mL (COMPLETED) 10 mL, Infiltration, ONCE, 1 dose, On Mon04/18/23 at 1130 1130 (Given - Provid er: Enid Herrmann, RN) documented in this encounter Care Teams Data Collection Associate Relationship Specialty Start Date End Date Steffanie Fulton APRN [address] [place] [address] PCP - General Nurse Practitioner 07/26/21 documented as of this encounter
--- OUTSIDE RECORDS SUMMARY | 2024-05-29 15:36 | XMS_ITS | Encounter Summary ---
Author Organization [place] [address] Care Team Providers Care Sql Dba Name Role Phone Steffanie Fulton APRN Primary Care Provider +1- [phone] Reason for Visit * Reason Comments Medication Refill Encounter Details Date Type Department Care Team (Late st Contact Info) Description 01/19/2023 Refill [facility] [address] [place] [address] Marcela De Leon MD Medication [...] No 11/23/2022 8:15 AM EDT Magdaleno Elliott CORRECTIONS IDENTIFICATION TECHNICIAN * Does this person have serious difficulty [...] DAY AT NIGHT 180 Capsule 1 01/19/2023 documented in this encounter Plan of Treatment Upcoming Encounters Date Type Department Care Team (Late st Contact Info) Description 06/28/2024 9:40 AM EST Clinical Support [facility] [address] [place] [phone] 11/19/2024 1:40 PM EDT Office Visit [facility] Neurology [facility] [address] [place] [address] Lyndsay Brewer, DO [address] [place] [address] documented as of this encounter [...] CAPSULES BY MOUTH EVERY DAY AT NIGHT 08/15/2022 01/19/2023 documented as of this encounter Care Teams Sql Dba Relationship Specialty Start Date End Date Steffanie Fulton APRN [address] [place] [address] PCP - General Nurse Practitioner 07/26/21 documented as of this encounter
--- OUTSIDE RECORDS SUMMARY | 2024-05-29 15:36 | XMS_ITS | Encounter Summary ---
Author Organization [place] [address] Care Team Providers Care District Sales Leader Name Role Phone Kirstin Steffanie KENT Primary Care Provider +1- [phone] Encounter Details Date Type Department Care Team (Late st Contact Info) Description 06/21/2023 Orders Only [facility] [address] [place] [phone] KirstinSteffanieYOLI [address] [place] [address] Acute cough Social History Tobacco Use Types [...] by mouth every 12 hours. 20 Tablet 06/21/2023 09/25/2023 documented in this encounter Plan of Treatment Upcoming Encounters Date Type Department Care Team (Late st Contact Info) Description 06/28/2024 9:40 AM EST Clinical Support [facility] [address] [place] [phone] 11/19/2024 1:40 PM EDT Office Visit [facility] [address] [place] [address] Lyndsay Brewer DO [address] [place] [address] documented as of this encounter [...] Tablet by mouth every 12 hours. Reorder 10/25/2022 06/21/2023 documented as of this encounter Care Teams District Sales Leader Relationship Specialty Start Date End Date Steffanie Fulton APRN [address] [place] [place] [address] PCP - General Nurse Practitioner 07/26/21 documented as of this encounter
--- OUTSIDE RECORDS SUMMARY | 2024-05-29 15:36 | XMS_ITS | Encounter Summary ---
Author Organization [place] [address] Care Team Providers Care Insulation Inspector Name Role Phone Kirstin Steffanie YOLI Primary Care Provider +1- [phone] Reason for Visit * Reason Comments Medication Refill Encounter Details Date Type Department Care Team (Late st Contact Info) Description 03/24/2023 Refill [facility] [address] [place] [phone] KirstinSteffanieYOLI [address] [place] [address] Medication Refill Social History Tobacco Use Types [...] Barber LPN * Does this person have serious [...] No 11/23/2022 8:15 AM EDMagdaleno Barber LPN documented as of this encounter Mental Status * Because of a physical, mental or emotional condition, does this person have serious difficulty concentrating, remembering or making decisions? Answer Entry Date Author No 11/23/2022 8:15 AM EDMagdaleno Barber LPN documented in this encounter Ordered Prescriptions Prescription Sig Dispense Quantity Refills Last Filled Start Date End Date tiZANidine (ZANAFLEX) 2 mg Oral TabletIndications: Chronic low back pain with sciatica, sciatica laterality unspecified, unspecified back pain laterality TAKE 1 TABLET BY MOUTH THREE TIMES A DAY 90 Tablet 1 03/24/2023 04/22/2023 documented in this encounter Miscellaneous Notes * Telephone Encounter - Dawn Sharma CPhT - 03/24/2023 12:51 PM EDT Tizanidine - Medication Refill Protocol not available for this medication. Routed to office staff. documented in this encounter Plan of Treatment Upcoming Encounters Date Type Department Care Team (Late st Contact Info) Description 06/28/2024 9:40 AM EST Clinical Support [facility] [address] [place] [phone] 11/19/2024 1:40 PM EDT Office Visit [facility] Neurology [facility] [address] [place] [phone] Lyndsay Brewer DO [address] [place] [address] documented as of this encounter [...] TABLET BY MOUTH THREE TIMES A DAY 01/13/2023 03/24/2023 documented as of this encounter Care Teams Insulation Inspector Relationship Specialty Start Date End Date Steffanie Fulton APRN [address] [place] [address] PCP - General Nurse Practitioner 07/26/21 documented as of this encounter
--- OUTSIDE RECORDS SUMMARY | 2024-05-29 15:36 | XMS_ITS | Encounter Summary ---
Author Organization [place] [address] Care Team Providers Care Gasfitter Name Role Phone Steffanie Fulton APRN Primary Care Provider +1- [phone] Reason for Visit * Reason Comments Medication Refill Encounter Details Date Type Department Care Team (Late st Contact Info) Description 01/11/2023 Refill [facility] [address] [place] [phone] Ligia Wiley MD [address] [place] [address] Medication Refill Social History Tobacco Use Types [...] Refills Last Filled Start Date End Date amLODIPine (NORVASC) 5 mg Oral TabletIndications: Essential hypertension TAKE 1 TABLET BY MOUTH EVERY DAY 90 Tablet 3 01/12/2023 11/29/2023 documented in this encounter Miscellaneous Notes * Telephone Encounter - King Delmy Hermilo Veliz - 01/12/2023 11:02 AM EDT Amlodipine Medication Refill Protocol passed. [facility] Action: Approved 90 day supply with sufficient refills to noted follow-up date by provider or protocol if no follow-up date noted, not to exceed 90 days past that date. documented in this encounter Plan of Treatment Upcoming Encounters Date Type Department Care Team (Late st Contact Info) Description 06/28/2024 9:40 AM EST Clinical Support [facility] [address] [place] [phone] 11/19/2024 1:40 PM EDT Office Visit [facility] [address] [place] [address] Lyndsay Brewer DO [address] [place] [address] documented as of this encounter [...] Discontinue Reason Start Date End Da te amLODIPine (NORVASC) 5 mg Oral TabletIndications:Essenti al hypertension TAKE 1 TABLET BY MOUTH EVERY DAY 07/13/2022 01/12/2023 documented as of this encounter Care Teams Gasfitter Relationship Specialty Start Date End Date Steffanie Fulton APRN [address] [place] [address] PCP - General Nurse Practitioner 07/26/21 documented as of this encounter
--- OUTSIDE RECORDS SUMMARY | 2024-05-29 15:36 | XMS_ITS | Encounter Summary ---
Author Organization [place] [address] Care Team Providers Care Knife Glazer Name Role Phone Steffanie Fulton APRN Primary Care Provider +1- [phone] Reason for Visit * Reason Comments Hand Injury Right hand laceratio n from a window. Bleeding controlled Encounter Details Date Type Department Care Team ([facility] Contact Info) Description 02/09/2023 10:31 AM EDT - 02/09/2023 11:16 AM EDT Emergency [facility] [place] [address] Catherine Red MD [address] [place] [address] [place] [address] Laceration of right hand, foreign body presence unspecified, initial encounter (Primary Dx) Discharge Disposition: Home [...] Sign Reading Time Taken Comments Blood Pressure 132/80 02/09/2023 11:15 AM EDT Pulse 94 02/09/2023 11:15 AM EDT Temperature 36.8 ??C (98.3 ??F) 02/09/2023 10:28 AM E DT Respiratory Rate - - Oxygen Saturation 100% 02/09/2023 11:15 AM EDT Inhaled Oxygen Concentration - - Weight 97.5 kg (215 lb) 02/09/2023 10:28 AM EDT Height 170.2 cm (5' 7 ) 02/09/2023 10:28 AM EDT Body Mass Index 33.67 02/09/2023 10:28 AM EDT documented in this encounter Functional [...] this encounter Discharge Instructions * Discharge Instructions* Catherine Red MD - 02/09/2023 11:00 AM EDT Wound care: Keep wound dry for 24 hours, then clean daily with soap and water. Apply antibiotic ointment to the wound 2 times per day for the next 2 days. Return if the wound demonstrates redness, warmth, tenderness, swelling or discharge. Get sutures removed in 7 days. * Attachments The following attachments cannot be sent through Care Everywhere. * LACERATION REPAIR WITH STITCHES DISCHARGE INSTRUCTIONS (POLISH) documented in this encounter Medications at Time of Discharge betamethasone dipropionate (DIPROLENE) 0.05 % Top OintmentIndications :Psoriasis APPLY TO AFFECTED AREA EVERY DAY 15 g 2 11/04/2021 fluticasone propionate (FLONASE) 50 mcg/actuation Nasl [place], SuspensionIndicatio ns:Moderate persistent asthma, uncomplicated SPRAY 1 SPRAY INTO EACH NOSTRIL EVERY DAY 32 mL 1 11/04/2021 Nebulizer Accessories (ALL FLOW 4000 KIT) [facility] Formulary equivalent 1 Each 0 06/27/2012 albuterol (PROVENTIL HFA;VENTOLIN HFA) 90 mcg/actuation Inhl HFA Aerosol InhalerIndications: Encounter for medication refill INHALE 1 TO 2 PUFFS BY MOUTH EVERY 4 HOURS NEEDED FOR WHEEZING 6.7 Each 1 09/02/2022 06/13/20 23 budesonide-formoter oL (SYMBICORT) 160-4.5 mcg/actuation Inhl HFA Aerosol InhalerIndications: History of asthma Inhale 2 Puffs into the lungs 2 times daily. 30.6 Each 2 11/23/2022 12/01/19 24 celecoxib (CELEBREX) 200 mg Oral CapsuleIndications: Generalized osteoarthritis of multiple sites Take 1 Capsule by mouth 2 times daily. 60 Capsule 11 01/28/2022 02/22/20 23 hydroCHLOROthiazide (MICROZIDE) 12.5 mg Oral CapsuleIndications: Essential hypertension Take 1 Capsule by mouth daily. 90 Capsule 1 11/23/2022 10/13/19 24 losartan (COZAAR) 50 mg Oral TabletIndications:E ssential hypertension Take 1 Tablet by mouth 2 times daily. 180 Tablet 1 11/23/2022 08/18/19 24 montelukast (SINGULAIR) 10 mg Oral TabletIndications:M oderate persistent asthma without complication TAKE 1 TABLET BY MOUTH EVERY DAY AT NIGHT 90 Tablet 1 12/19/2022 10/13/19 24 tadalafiL (CIALIS) 5 mg Oral TabletIndications:B PH without urinary obstruction TAKE 1 TAB BY MOUTH NEEDED. FOR ERECTILE DYSFUNCTION (NOT COVERED) 90 Tablet 2 07/01/2022 02/21/20 23 tamsulosin (FLOMAX) 0.4 mg Oral CapsuleIndications: BPH without urinary obstruction TAKE 2 CAPSULES BY MOUTH EVERY DAY AT NIGHT 180 Capsule 1 01/19/2023 09/26/19 24 tiZANidine (ZANAFLEX) 2 mg Oral TabletIndications:C hronic low back pain with sciatica, sciatica laterality unspecified, unspecified back pain laterality TAKE 1 TABLET BY MOUTH THREE TIMES A DAY 90 Tablet 1 01/13/2023 03/24/20 23 documented as of this encounter Discharge Disposition Disposition Code Departure Means Destination Comment s Home or Self Senior Living documented in this encounter ED Notes * Catherine Red MD - 02/09/2023 10:26 AM EDT CHIEF COMPLAINT Chief Complaint Patient presents with Hand Injury Right hand laceration from a window. Bleeding controlled HPI Zuhair Whitlock is a 57 y.o. male who presents with a chief complaint of laceration. Patient states he was running tape up a broken window and a shard of glass struck his right hand. The glass was intact. No foreign body sensation. This occurred within the last hour. Patient is right-hand dominant. Sustained a laceration overlying the MCP joint of the ring finger on the extensor surface. REVIEW OF SYSTEMS See HPI for further details. Review of systems otherwise negative. PAST MEDICAL HISTORY Past Medical History: Diagnosis Date Arthritis Asthma 06/02/2010 Bipolar affective ([facility]LY [facility]) Blood transfusion EPHRAIM (generalized anxiety disorder) Heart attack ([facility]) Heroin abuse ([facility]) Quit August Hypertension IBS (irritable bowel syndrome) Opiate dependence ([facility]) Remission x 5 years Pneumonia Pneumothorax FAMILY [...] been in recovery for 6 years 2012 SURGICAL HISTORY Past Surgical History: Procedure Laterality [...] REVISION-ANTERIOR ; Surgeon: Augie Ramires MD; Location: [facility] OR; Service: Orthopedics KNEE SURGERY LEFT ACL RECONSTRUCTION KNEE SURGERY LEFT ARTHROSCOPIES IRRAGATION X 7 FOR INFECTION KNEE SURGERY RIGHT ARTHROSCOPIC MENICUS REPAIR SHOULDER ARTHROSCOPY Right 11/29/2019 RIGHT SHOULDER ARTHROSCOPIC ROTATOR CUFF REPAIR DECOMPRESSION ACROMIOPLASTY, ACROMIOCLAVICULAR JOINT EXCISION; Surgeon: Kenny Loja MD; Location: [facility]; Service: Orthopedics TOTAL HIP ARTHROPLASTY Left 2009 CURRENT MEDICATIONS Current Facility-Administered Medications: bupivacaine HCl (MARCAINE) 0.5 % (5 mg/mL) injection 2 mL, 2 mL, Intra- articular, , Augie Ramires MD, 2 mL at 08/16/21 3155 Current Outpatient Medications: albuterol (PROVENTIL HFA;VENTOLIN HFA) [...] 2 celecoxib (CELEBREX) 200 mg Oral Capsule, Take 1 Capsule by mouth 2 times daily., Disp: 60 Capsule,Rfl: 11 colestipoL (COLESTID) 1 gram Oral Tablet, [...] 1 fluticasone propionate (FLONASE) 50 mcg/actuation Nasl [place], Suspension, SPRAY 1 SPRAY INTO EACH NOSTRIL [...] not take any narcotic medications PHYSICAL EXAM VITAL SIGNS: BP 132/80 Pulse 94 Temp 98.3 ??F (36.8 ??C) (Oral) Ht 5' 7 (1.702 m) Wt 215 lb (97.5 kg) SpO2 100% BMI 33.67 kg/m?? Constitutional: Well developed, Well nourished, No acute distress, Non-toxic appearance. Cardiovascular: Normal heart rate, Normal rhythm, No murmurs, No rubs, No gallops. Thorax & Lungs: Normal breath sounds, No respiratory distress, No wheezing, No chest tenderness. Abdomen: Bowel sounds normal, Soft, No tenderness, No masses, No pulsatile masses. Skin: Warm, Dry, No erythema, No rash. Extremities: Intact distal pulses, No cyanosis, No clubbing. Musculoskeletal: Small 1 cm V-shaped flap laceration involving the extensor surface of the right hand overlying the ring finger MCP. No visualized joint capsule. full range of motion of the joint anddistally. Neurologic: Alert & oriented x 3, Normal motor function, Normal sensory function, No focal deficits noted. RADIOLOGY/PROCEDURES Laceration Repair Procedure Note Indication: Laceration Timeout performed per policy and procedure. Procedure: The patient was placed in the appropriate position and anesthesia around the laceration was obtained by infiltration using 1% Lidocaine with epinephrine. The area was then cleansed using soap and irrigated with tap water. The laceration was closed with 4-0 Prolene using interrupted sutures. There were no additional lacerations requiring repair. The wound area was then dressed with a bandage. Total repaired wound length: 1 cm. Other Items: None The patient tolerated the procedure well. Complications: None COURSE & MEDICAL DECISION MAKING Pertinent Labs & Imaging studies reviewed. (See chart for details) 57-year-old male patient that presents with an uncomplicated flap-like laceration. Wounds cleaned and repaired. Discharged home. Suture removal 7 days. Wound care instructions. FINAL IMPRESSION 1. Laceration of right hand, foreign body presence unspecified, initial encounter Discharged in stable condition This chart was completed using voice recognition technology and may contain unintended errors Catherine Red MD 02/09/23 1124 documented in this encounter Plan of Treatment Upcoming Encounters Date Type Department Care Team (Late st Contact Info) Description 06/28/2024 9:40 AM EST Clinical Support [facility] [place] [address] [place] [address] 11/19/2024 1:40 PM EDT Office Visit [facility] Neurology [facility] [address] [place] [address] Lyndsay Brewer DO [address] [facility] [address] [place] [address] documented as of this encounter Goals Goal Patient Goal Type Associated Problems Recent Progress Patient-Stated? Author Blood Pressure < 140/90 Blood Pressure 134/84(2023 1:16 PM EST) No Yana Choi RMA Eat better, exercise, reach an ideal body weight General No Yana Choi RMA Stay Tobacco Free Lifestyle No Yana Choi RMA documented as of this encounter Visit Diagnoses Diagnosis Laceration of right hand, foreign body presence unspecified, initial encounter- Primary documented in this encounter Administered Medications Inactive Administered Medications - up to 1 most recent administrations Medication Order MAR Action Action Date Dose Rate Site lidocaine-EPINEPHrine 1 %-1:200,000 injection 10 mL 10 mL, Infiltration, ONCE, 1 dose, On Maritza 02/09/23 at 1045 Given 02/09/2023 10:46 AM EDT 10 mL documented in this encounter Active and Recently Administered Medications Times are shown in EDT. Scheduled Medication Order 02/07/2023 02/08/2023 02/09/2023 lidocaine-EPINEPHrine 1 %-1:200,000 injection 10 mL (COMPLETED) 10 mL, Infiltration, ONCE, 1 dose, On Maritza 02/09/23 at 1045 1046 (Given - Provid er: Vaughn Siddiqiu RN) documented in this encounter Care Teams Knife Glazer Relationship Specialty Start Date End Date Steffanie Fulton APRN [address] [place] [address] PCP - General Nurse Practitioner 07/26/21 documented as of this encounter
--- OUTSIDE RECORDS SUMMARY | 2024-05-29 15:36 | XMS_ITS | Encounter Summary ---
Author Organization [place] [address] Care Team Providers Care Tube Turner Name Role Phone Kirstin Steffanie KENT Primary Care Provider +1- [phone] Encounter Details Date Type Department Care Team (Late st Contact Info) Description 06/14/2023 Orders Only [facility] [address] [place] [id number] Kirstin SteffanieYOLI [address] [place] [address] Exposure to strep throat (Primary Dx) Social History Tobacco Use Types [...] Refills Last Filled Start Date End Date amoxicillin (AMOXIL) 500 mg Oral CapsuleIndications :Exposure to strep throat Take 1 Capsule by mouth 2 times daily for 10 days. 20 Capsule 06/14/2023 documented in this encounter Plan of Treatment Upcoming Encounters Date Type Department Care Team (Late st Contact Info) Description 06/28/2024 9:40 AM EST Clinical Support ANTOLIN [place] [address] [place] [address] 11/19/2024 1:40 PM EDT Office Visit [facility] Neurology [facility] [address] [place] [address] Lyndsay Brewer, DO [address] [place] [address] documented as of this encounter Goals Goal Patient Goal Type Associated Problems Recent Progress Patient-Stated? Author Blood Pressure < 140/90 Blood Pressure 134/84(2023 1:16 PM EST) No Yana Choi RMA Eat better, exercise, reach an ideal body weight General No Yana Choi, RMA Stay Tobacco Free Lifestyle No Yana Choi RMJane documented as of this encounter Visit Diagnoses Diagnosis Exposure to strep throat- Primary Contact with or exposure to other communicable diseases documented in this encounter Care Teams Tube Turner Relationship Specialty Start Date End Date Steffanie Fulton APRN [address] [place] [address] PCP - General Nurse Practitioner 07/26/21 documented as of this encounter
--- OUTSIDE RECORDS SUMMARY | 2024-05-29 15:36 | XMS_ITS | Encounter Summary ---
Author Organization [facility] [place] [address] Care Team Providers Care Mini Shifter Name Role Phone Steffanie Fulton APRN Primary Care Provider +1- [phone] Encounter Details Date Type Department Care Team (Latest Contact Info) Description 04/18/2023 Travel Social History Tobacco Use Types Packs/Day [...] AM EST Clinical Support [facility] [place] [address] [place] [phone] 11/19/2024 1:40 PM EDT Office Visit SEP Neurology [facility] [address] [place] [address] Lyndsay Brewer DO [address] [place] [address] [place] [address] documented as of this encounter Goals [...] on filedocumented in this encounter Care Teams Mini Shifter Relationship Specialty Start Date End Date Steffanie Fulton APRN [address] [place] [address] PCP - General Nurse Practitioner 07/26/21 documented as of this encounter
--- OUTSIDE RECORDS SUMMARY | 2024-05-29 15:36 | XMS_ITS | Encounter Summary ---
Author Organization [place] [address] Care Team Providers Care Foxing Cutting Machine Operator Name Role Phone YoladnaSteffanie devine YOLI Primary Care Provider +1- [phone] Reason for Visit * Reason Comments Back Pain Encounter Details Date Type Department Care Team (Late st Contact Info) Description 05/16/2023 9:30 AM EST Office Visit [facility] [address] [place] [address] Lucy Angulo APRN [address] [place] [address] Acute bilateral low back pain without sciatica (Primary Dx) Social History Tobacco Use Types [...] Sign Reading Time Taken Comments Blood Pressure 124/76 05/16/2023 9:34 AM EST Pulse 70 05/16/2023 9:34 AM EST Temperature 36.7 ??C (98 ??F) 05/16/2023 9:34 AM EST Respiratory Rate - - Oxygen Saturation 95% 05/16/2023 9:34 AM EST Inhaled Oxygen Concentration - - Weight 97.1 kg (214 lb) 05/16/2023 9:34 AM EST Height 170.2 cm (5' 7 ) 05/16/2023 9:34 AM EST Body Mass Index 33.52 05/16/2023 9:34 AM EST documented in this encounter Functional [...] End Date predniSONE (DELTASONE) 20 mg Oral Tablet Take 1 Tablet by mouth 2 times daily for 5 days. 10 Tablet 05/16/2023 05/21/2023 documented in this encounter Progress Notes * Lucy Angulo APRN - 05/16/2023 9:30 AM EST Vitals: 05/16/23 0934 BP: 124/76 BP Location: Right arm Pulse: 70 Temp: 98 ??F (36.7 ??C) TempSrc: Temporal SpO2: 95% Weight: 214 lb (97.1 kg) Height: 5' 7 (1.702 m) Body mass index is 33.52 kg/m??. SUBJECTIVE: Chief Complaint Patient presents with ??? Back Pain HPI: pt presents with lower back pain x 2 days he states he had a sneezing fit and he felt like someone hit him in the back. Review of Systems Musculoskeletal: Positive for back pain. OBJECTIVE: Physical Exam Vitals and nursing note reviewed. Cardiovascular: Rate and Rhythm: Normal rate and regular rhythm. Pulses: Normal pulses. Heart sounds: Normal heart sounds. Pulmonary: Effort: Pulmonary effort is normal. Breath sounds: Normal breath sounds. Musculoskeletal: Comments: Tenderness noted in the lumbar region, no step off or bony tenderness. Assessment Diagnoses and all orders for this visit: Acute bilateral low back pain without sciatica Other orders - predniSONE (DELTASONE) 20 mg Oral Tablet; Take 1 Tablet by mouth 2 times daily for 5 days. Dispense: 10 Tablet; Refill: 0 Will prescribe a steroid per patient request. Follow up with chiropractor as scheduled. documented in this encounter Plan of Treatment Upcoming Encounters Date Type Department Care Team (Late st Contact Info) Description 06/28/2024 9:40 AM EST Clinical Support ANTOLIN [place] [address] [place] [place] [address] 11/19/2024 1:40 PM EDT Office Visit [facility] [address] [place] [address] Lyndsay Brewer, [address] [place] [address] documented as of this encounter Goals Goal Patient Goal Type Associated Problems Recent Progress Patient-Stated? Author Blood Pressure < 140/90 Blood Pressure 134/84(2023 1:16 PM EST) No Yana Choi RMA Eat better, exercise, reach an ideal body weight General No Yana Choi RMA Stay Tobacco Free Lifestyle No Yana Choi RMJane documented as of this encounter Visit Diagnoses Diagnosis Acute bilateral low back pain without sciatica- Primary documented in this encounter Care Teams Foxing Cutting Machine Operator Relationship Specialty Start Date End Date Steffanie Fulton APRN [address] [place] [address] PCP - General Nurse Practitioner 07/26/21 documented as of this encounter
--- OUTSIDE RECORDS SUMMARY | 2024-05-29 15:36 | XMS_ITS | Encounter Summary ---
Author Organization [place] [address] Care Team Providers Care Lumber Sorter Name Role Phone KirstinSteffanie YOLI Primary Care Provider +1- [phone] Reason for Visit * Reason Onset Date Comments Medication Refill 04/22/2023 Encounter Details Date Type Department Care Team (Late st Contact Info) Description 04/22/2023 Refill [facility] [address] [place] [phone] Steffanie Fulton APRN [address] [place] [address] Medication Refill Social History Tobacco Use Types [...] No 11/23/2022 8:15 AM EDT Magdaleno Elliott DESIGN VERIFICATION ENGINEER * Because of a physical, mental or [...] by mouth 3 times daily. 90 Tablet 1 04/24/2023 09/13/2023 documented in this encounter Plan of Treatment Upcoming Encounters Date Type Department Care Team (Late st Contact Info) Description 06/28/2024 9:40 AM EST Clinical Support [facility] [address] [place] [address] 11/19/2024 1:40 PM EDT Office Visit [facility] Neurology [facility] [address] [place] [phone] Osman Lyndsay Harrelln, DO [address] [place] [address] documented as of this encounter [...] TABLET BY MOUTH THREE TIMES A DAY Reorder 03/24/2023 04/22/2023 documented as of this encounter Care Teams Lumber Sorter Relationship Specialty Start Date End Date Steffanie Fulton APRN [address] [place] [address] PCP - General Nurse Practitioner 07/26/21 documented as of this encounter
--- OUTSIDE RECORDS SUMMARY | 2024-05-29 15:36 | XMS_ITS | Encounter Summary ---
Author Organization [place] [address] Care Team Providers Care Foundation Drill Operator Name Role Phone Steffanie Fulton APRN Primary Care Provider +1- [phone] Reason for Visit * Reason Onset Date Comments Medication Refill 06/23/2023 Encounter Details Date Type Department Care Team (Late st Contact Info) Description 06/23/2023 Refill [facility] [address] [place] [address] Genna Day MA Medication Refill [...] Refills Last Filled Start Date End Date pantoprazole (PROTONIX) 40 mg Oral Tablet, Delayed Release (E.C.) Take 1 Tablet by mouth daily. 90 Tablet 3 06/23/2023 08/22/2023 documented in this encounter Plan of Treatment Upcoming Encounters Date Type Department Care Team (Late st Contact Info) Description 06/28/2024 9:40 AM EST Clinical Support ANTOLIN [facility] [address] [place] [address] 11/19/2024 1:40 PM EDT Office Visit SE[facility] Neurology [facility] [address] [place] [phone] Lyndsay Brewer DO [address] [place] [address] documented as of this encounter [...] on filedocumented in this encounter Care Teams Foundation Drill Operator Relationship Specialty Start Date End Date Steffanie Fulton APRN [address] [place] [address] PCP - General Nurse Practitioner 07/26/21 documented as of this encounter
--- OUTSIDE RECORDS SUMMARY | 2024-05-29 15:36 | XMS_ITS | Encounter Summary ---
Author Organization [facility] [place] [address] Care Team Providers Care Tube Builder Airplane Name Role Phone Steffanie Fulton APRN Primary Care Provider +1- [phone] Encounter Details Date Type Department Care Team (Latest Contact Info) Description 02/09/2023 Travel Social History Tobacco Use Types Packs/Day [...] In the last 10 days, have debbie christopher been in contact with someone who was confirmed or suspected to have Coronavirus/COVID-19? No / Unsure 02/09/2023 10:26 AM EDT documented as of this encounter Functional Status * Is the person deaf or does he/she have serious difficulty hearing? Answer Date of Assessment Author No 11/23/2022 8:15 AM EDT Earl Magdaleno min, CLIN APPLICATION SPECIALIST * Is the person blind or does he/she have serious difficulty seeing even when wearing glasses? Answer Date of Assessment Author No 11/23/2022 8:15 AM EDT Earl Magdaleno min, CLIN APPLICATION SPECIALIST * Does this person have serious difficulty walking or climbing stairs? Answer Date of Assessment Author No 11/23/2022 8:15 AM EDT Earl Magdaleno min, CLIN APPLICATION SPECIALIST * Does this person have difficulty dressing or bathing? Answer Date of Assessment Author No 11/23/2022 8:15 AM EDT Earl Magdaleno min, CLIN APPLICATION SPECIALIST * Because of a physical, mental or emotional condition, does this person have difficulty doing errands alone such as visiting a doctor's office or shopping? Answer Date of Assessment Author No 11/23/2022 8:15 AM EDT Earl Magdaleno min, CLIN APPLICATION SPECIALIST documented as of this encounter Mental Status * Because of a physical, mental or emotional condition, does this person have serious difficulty concentrating, remembering or making decisions? Answer Entry Date Author No 11/23/2022 8:15 AM EDT Earl Magdaleno min, CLIN APPLICATION SPECIALIST documented in this encounter Plan of Treatment Upcoming Encounters Date Type Department Care Team (Late st Contact Info) Description 06/28/2024 9:40 AM EST Clinical Support [facility] [address] [place] [address] 11/19/2024 1:40 PM EDT Office Visit SEP Neurology [facility] [address] [place] [address] Lyndsay Brewer, DO [address] [place] [address] documented as of this encounter [...] on filedocumented in this encounter Care Teams Tube Builder Airplane Relationship Specialty Start Date End Date Steffanie Fulton APRN [address] [place] [address] PCP - General Nurse Practitioner 07/26/21 documented as of this encounter
--- OUTSIDE RECORDS SUMMARY | 2024-05-29 15:37 | XMS_ITS | Encounter Summary ---
Author Organization [place] [address] Care Team Providers Care Program Support Clerk Name Role Phone Steffanie Fulton APRN Primary Care Provider +1- [phone] Reason for Visit * Reason Comments Foot Pain B/L Encounter Details Date Type Department Care Team (Late st Contact Info) Description 01/11/2023 8:30 AM EDT Office Visit [facility] Podiatry [place] [address] [facility] [address] [place] [phone] Arvin Walton, NABIL [address] [facility] [address] [place], [place] [id number] Metatarsalgia of both feet (Primary Dx); Foot pain, right; Foot pain, left; Metatarsus adductus of both feet; Osteoarthritis of right ankle and foot; Osteoarthritis of left ankle and foot Social History Tobacco Use Types Packs/Day Years [...] Pressure - - Pulse - - Temperature 36.1 ??C (97 ??F) 01/11/2023 8:27 AM EDT Respiratory Rate - - Oxygen Saturation - - Inhaled Oxygen Concentration - - Weight 99.7 kg (219 lb 12.8 oz) 01/11/2023 8:27 AM EDT Height 170.2 cm (5' 7 ) 01/11/2023 8:27 AM EDT Body Mass Index 34.43 01/11/2023 8:27 AM EDT documented in this encounter Functional [...] of Assessment Author No 11/23/2022 8:15 AM ADITYAT Magdaleno Elliott LPN * Does this person [...] Magdaleno Elliott LPN documented in this encounter Progress Notes * Arvin Walton DPM - 01/11/2023 8:30 AM EDT [facility] Podiatric Surgery Outpatient Progress Note Name: Zuhair Whitlock Primary Care Physician: Steffanie Fulton APRN Chief Complaint: Chief Complaint Patient presents with Foot Pain B/L History of Presenting Illness: Zuhair Whitlock is a(n) 57 y.o. male who presents the office for recurrent pain to bilateral forefoot. Patient has transitioned well into his orthotics. Notes improvement with new support devices. He also tolerated the prednisone well with noted results. Pain does continue to linger with increased activity and weightbearing. No bruising or redness. Medications: Outpatient Medications Marked as Taking for the 01/11/23 encounter (Office Visit) with Arvin Walton DPM Medication Sig Dispense Refill albuterol (PROVENTIL HFA;VENTOLIN HFA) 90 mcg/actuation Inhl HFA Aerosol Inhaler INHALE 1 TO 2 PUFFS BY MOUTH EVERY 4 HOURS NEEDED FOR WHEEZING 6.7 Each 1 albuterol (PROVENTIL) 2.5 mg /3 mL (0.083 %) Inhl Solution for Nebulization TAKE 3 ML BY NEBULIZATION EVERY 4 HOURS NEEDED FOR WHEEZING 150 mL 1 amLODIPine (NORVASC) 5 mg Oral Tablet TAKE 1 TABLET BY MOUTH EVERY DAY 90 Tablet 1 atorvastatin (LIPITOR) 40 mg Oral Tablet Take 1 Tablet by mouth nightly. 30 Tablet 11 betamethasone dipropionate (DIPROLENE) 0.05 % Top Ointment APPLY TO AFFECTED AREA EVERY DAY 15 g 2 budesonide-formoteroL (SYMBICORT) 160-4.5 mcg/actuation Inhl HFA Aerosol Inhaler Inhale 2 Puffs into the lungs 2 times daily. 30.6 Each 2 celecoxib (CELEBREX) 200 mg Oral Capsule Take 1 Capsule by mouth 2 times daily. 60 Capsule 11 colestipoL (COLESTID) 1 gram Oral Tablet TAKE 1 TABLET BY MOUTH 2 TIMES DAILY. NEEDS AN [id number] Tablet 0 dextromethorphan-guaiFENesin (MUCINEX DM) 30-600 mg Oral Tablet Sustained Release 12 hr Take 1 Tablet by mouth every 12 hours. 20 Tablet 0 diclofenac (VOLTAREN) 1 % Top Gel APPLY 2 GRAMS TOPICALLY 4 TIMES DAILY DIRECTED. 100 g 1 fluticasone propionate (FLONASE) 50 mcg/actuation Nasl [place], Suspension SPRAY 1 SPRAY INTO EACH NOSTRIL EVERY DAY 32 mL 1 hydroCHLOROthiazide (MICROZIDE) 12.5 mg Oral Capsule Take 1 Capsule by mouth daily. 90 Capsule 1 losartan (COZAAR) 50 mg Oral Tablet Take 1 Tablet by mouth 2 times daily. 180 Tablet 1 montelukast (SINGULAIR) 10 mg Oral Tablet TAKE 1 TABLET BY MOUTH EVERY DAY AT NIGHT 90 Tablet 1 Nebulizer Accessories (ALL FLOW 4000 KIT) [facility] Formulary equivalent 1 Each 0 tadalafiL (CIALIS) 5 mg Oral Tablet TAKE 1 TAB BY MOUTH NEEDED. FOR ERECTILE DYSFUNCTION (NOT COVERED) 90 Tablet 2 tamsulosin (FLOMAX) 0.4 mg Oral Capsule TAKE 2 CAPSULES BY MOUTH EVERY DAY AT NIGHT 180 Capsule 1 tiZANidine (ZANAFLEX) 2 mg Oral Tablet Take 1 Tablet by mouth 3 times daily. 90 Tablet 1 Current Facility-Administered Medications for the 01/11/23 encounter (Office Visit) with Arvin Walton DPM Medication Dose Route Frequency Provider Last Rate Last Admin bupivacaine HCl (MARCAINE) 0.5 % (5 mg/mL) injection 2 mL 2 mL Intra-articular Augie Ramires MD 2 mL at 08/16/21 0980 Allergies Allergen Reactions Abilify [Aripiprazole] Other (See [...] JOINT EXCISION; Surgeon: Kenny Loja MD; Location: [facility]; Service: Orthopedics TOTAL HIP ARTHROPLASTY Left [...] been in recovery for 6 years 2012 Review of Systems: The following systems were [...] Mood/affect appropriate Physical Examination: Vital Signs: Temp 97 ??F (36.1 ??C) (Forehead) Ht 5' 7 (1.702 m) Wt 219 lb 12.8 oz (99.7 kg) BMI 34.43 kg/m?? General: Zuhair appears in no acute [...] <3 seconds to digits 1-5 bilateral. Edema is lingering to b/l forefoot. Calor is absent. Neurologic Sensation intact to light touch and 5.07/10g [place] Parveen monofilament bilateral. Dermatologic Integument is dry, supple bilateral. Ecchymosis is absent. Erythema is absent. No palpable subcutaneous masses bilateral foot. Musculoskeletal Pain with palpation lingering to met heads 2-4 b/l, - lachmann test, - richi's sign b/l. +/- piano bennett sign TMTJs 2, 3 b/l. Muscle strength is 5/5 all LE groups bilateral. Gait is semi-antalgic. Assisted with orthotics. Assessment: Zuhair Whitlock was seen today for Chief Complaint Patient presents with Foot Pain B/L . Zuhair was seen today for foot pain. 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 Discussed clinical findings and possible etiologies of patient's symptoms. - We discussed treatment options. Patient's orthotics were modified today with metatarsal offloading pads. Continue wear supportive shoe gear and advance activity. Resume Celebrex as prescribed. - RICE therapy. - All of patient's questions, comments and concerns were addressed. Patient agreeable to plan. Patient to follow-up in 3-4 weeks, or sooner as needed. Arvin Walton DPM 01/11/2023 Disclaimer - This note was completed using [...] Support [facility] [address] [place] [phone] 11/19/2024 1:40 PM EDT Office Visit SEP Neurology [facility] [address] [place] [address] Lyndsay Brewer, DO [address] [place] [address] documented as of this encounter Goals Goal Patient Goal Type Associated Problems Recent Progress Patient-Stated? 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
--- OUTSIDE RECORDS SUMMARY | 2024-05-29 15:37 | XMS_ITS | Encounter Summary ---
Author Organization [place] [address] Care Team Providers Care Cement Breaker Name Role Phone Steffanie Fulton APRN Primary Care Provider +1- [phone] Reason for Visit * Reason Comments Medication Refill Encounter Details Date Type Department Care Team (Late st Contact Info) Description 07/01/2022 Refill [facility] [address] [place] [address] Steffanie Fulton APRN [address] [place] [address] Medication Refill Social History Tobacco Use Types [...] Answer Date Recorded PHQ-2 Total Score 0 10/07/2020 Hunger Vital Sign Answer Date Recorded Within [...] hearing? Answer Date of Assessment Author No 10/07/2020 8:08 AM Jane Barajas MA * Is the person blind or does he/she have serious difficulty seeing even when wearing glasses? Answer Date of Assessment Author No 10/07/2020 8:08 AM Jane Barajas MA * Does this person have serious difficulty walking or climbing stairs? Answer Date of Assessment Author Yes 10/07/2020 8:08 AM Jane Barajas MA * Does this person have difficulty dressing or bathing? Answer Date of Assessment Author No 10/07/2020 8:08 AM EDJane Guzman MA * Because of a physical, mental or emotional condition, does this person have difficulty doing errands alone such as visiting a doctor's office or shopping? Answer Date of Assessment Author No 10/07/2020 8:08 AM Jane Barajas MA documented as of this encounter Mental Status * Because of a physical, mental or emotional condition, does this person have serious difficulty concentrating, remembering or making decisions? Answer Entry Date Author No 10/07/2020 8:08 AM Jane Barajas MA documented in this encounter Ordered Prescriptions Prescription Sig Dispense Quantity Refills Last Filled Start Date End Date tadalafiL (CIALIS) 5 mg Oral TabletIndications: BPH without urinary obstruction TAKE 1 TAB BY MOUTH NEEDED. FOR ERECTILE DYSFUNCTION (NOT COVERED) 90 Tablet 2 07/01/2022 3 documented in this encounter Plan of Treatment Upcoming Encounters Date Type Department Care Team (Late st Contact Info) Description 06/28/2024 9:40 AM EST Clinical Support [facility] [address] [place] [phone] 11/19/2024 1:40 PM EDT Office Visit [facility] Neurology [facility] [address] [place] [address] Osman Lyndsay Polina, DO [address] [place] [address] documented as of this encounter [...] MOUTH NEEDED. FOR ERECTILE DYSFUNCTION (NOT COVERED) 10/18/2021 07/01/2022 documented as of this encounter Care Teams Cement Breaker Relationship Specialty Start Date End Date Steffanie Fulton APRN [address] [place] [address] PCP - General Nurse Practitioner 07/26/21 documented as of this encounter
--- OUTSIDE RECORDS SUMMARY | 2024-05-29 15:37 | XMS_ITS | Encounter Summary ---
Author Organization [place] [address] Care Team Providers Care Dietary Manager Name Role Phone Kirstin Steffanie YOLI Primary Care Provider +1- [phone] Reason for Visit * Reason Comments Medication Refill Encounter Details Date Type Department Care Team (Late st Contact Info) Description 07/12/2022 Refill [facility] [address] [place] [phone] Steffanie FultonYOLI [address] [facility] [place] [address] Medication Refill Social History Tobacco Use Types [...] of Assessment Author No 10/07/2020 8:08 AM EDT Jane Garrido MA * Is the person blind or [...] of Assessment Author No 10/07/2020 8:08 AM EDT Jane Garrido MA * Because of a physical, mental [...] Last Filled Start Date End Date albuterol (PROVENTIL) 2.5 mg /3 mL (0.083 %) Inhl Solution for NebulizationIndic ations:Bronchitis ,Severe asthma without complication, unspecified whether persistent,Wheezi ng TAKE 3 ML BY NEBULIZATION EVERY 4 HOURS NEEDED FOR WHEEZING 150 mL 1 07/13/2022 documented in this encounter Plan of Treatment Upcoming Encounters Date Type Department Care Team (Late st Contact Info) Description 06/28/2024 9:40 AM EST Clinical Support [facility] [address] [phone] 11/19/2024 1:40 PM EDT Office Visit SEP Neurology [facility] [address] [place] [phone] Lyndsay Brewer, DO [address] [place] [address] documented as of this encounter Goals Goal Patient Goal Type Associated Problems Recent Progress Patient-Stated? Author Blood Pressure < 140/90 Blood Pressure 134/84(2023 1:16 PM EST) No Yana Choi RMA Eat better, exercise, reach an ideal body weight General No Yana Choi RMA Stay Tobacco Free Lifestyle No Yana Choi RMJane documented as of this encounter Visit Diagnoses Diagnosis Bronchitis Bronchitis, not specified as acute or chronic Severe asthma without complication, unspecified whether persistent Wheezing documented in this encounter Discontinued Medications Medication Sig Discontinue Reason Start Date End Da te albuterol (PROVENTIL) 2.5 mg /3 mL (0.083 %) Inhl Solution for NebulizationIndication s:Bronchitis,Severe asthma without complication, unspecified whether persistent,Wheezing Take 3 mL by nebulization every 4 hours as needed for Wheezing. 06/01/2022 07/13/2022 documented as of this encounter Care Teams Dietary Manager Relationship Specialty Start Date End Date Steffanie Fulton APRN [address] [address] PCP - General Nurse Practitioner 07/26/21 documented as of this encounter
--- OUTSIDE RECORDS SUMMARY | 2024-05-29 15:37 | XMS_ITS | Encounter Summary ---
Author Organization [facility] [place] [address] Care Team Providers Care Ice Maker Name Role Phone Steffanie Fulton APRN Primary Care Provider +1- [phone] Encounter Details Date Type Department Care Team (Latest Contact Info) Description 12/01/2022 Travel Social History Tobacco Use Types Packs/Day [...] suspected to have Coronavirus/COVID-19? No / Unsure 11/23/2022 8:54 AM EDT documented as of this encounter Functional Status * Is the person deaf or does he/she have serious difficulty hearing? Answer Date of Assessment Author No 11/23/2022 8:15 AM EDT Earl Magdaleno min, FURNACE STOCK INSPECTOR * Is the person blind or does he/she have serious difficulty seeing even when wearing glasses? Answer Date of Assessment Author No 11/23/2022 8:15 AM EDT Earl, Magdaleno min, FURNACE STOCK INSPECTOR * Does this person have serious difficulty walking or climbing stairs? Answer Date of Assessment Author No 11/23/2022 8:15 AM EDT Earl Magdaleno min, FURNACE STOCK INSPECTOR * Does this person have difficulty dressing or bathing? Answer Date of Assessment Author No 11/23/2022 8:15 AM EDT Earl Magdaleno min, FURNACE STOCK INSPECTOR * Because of a physical, mental or emotional condition, does this person have difficulty doing errands alone such as visiting a doctor's office or shopping? Answer Date of Assessment Author No 11/23/2022 8:15 AM EDT Earl Magdaleno min, FURNACE STOCK INSPECTOR documented as of this encounter Mental Status * Because of a physical, mental or emotional condition, does this person have serious difficulty concentrating, remembering or making decisions? Answer Entry Date Author No 11/23/2022 8:15 AM EDT Earl Magdaleno min, FURNACE STOCK INSPECTOR documented in this encounter Plan of Treatment Upcoming Encounters Date Type Department Care Team (Late st Contact Info) Description 06/28/2024 9:40 AM EST Clinical Support SEP [address] [place] [address] [place] [phone] 11/19/2024 1:40 PM EDT Office Visit SEP Neurology [facility] [address] [place] [address] Lyndsay Brewer, DO [address] [place] [address] documented as of this encounter [...] on filedocumented in this encounter Care Teams Ice Maker Relationship Specialty Start Date End Date Steffanie Fulton APRN [address] [place] [address] PCP - General Nurse Practitioner 07/26/21 documented as of this encounter
--- OUTSIDE RECORDS SUMMARY | 2024-05-29 15:37 | XMS_ITS | Encounter Summary ---
Author Organization [place] [address] Care Team Providers Care Gate Mortiser Operator Name Role Phone Steffanie Fulton APRN Primary Care Provider +1- [phone] Encounter Details Date Type Department Care Team (Latest Contact Info) Description 11/23/2022 8:55 AM EDT - 11/23/2022 11:59 PM EDT Hospital Encounter [facility] [address] [place] [address] Chronic pain of both shoulders Discharge Disposition: Home or Self Care Social [...] EDMagdaleno Barber LPN documented in this encounter Medications at Time of Discharge betamethasone dipropionate (DIPROLENE) 0.05 % Top OintmentIndications :Psoriasis APPLY TO AFFECTED AREA EVERY DAY 15 g 2 11/04/2021 fluticasone propionate (FLONASE) 50 mcg/actuation Nasl Bantam, SuspensionIndicatio ns:Moderate persistent asthma, uncomplicated SPRAY 1 SPRAY INTO EACH NOSTRIL EVERY DAY 32 mL 1 11/04/2021 Nebulizer Accessories (ALL FLOW 4000 KIT) [facility] Formulary equivalent 1 Each 0 06/27/2012 albuterol (PROVENTIL HFA;VENTOLIN HFA) 90 mcg/actuation Inhl HFA Aerosol InhalerIndications: Encounter for medication refill INHALE 1 TO 2 PUFFS BY MOUTH EVERY 4 HOURS NEEDED FOR WHEEZING 6.7 Each 1 09/02/2022 06/13/20 23 amLODIPine (NORVASC) 5 mg Oral TabletIndications:E ssential hypertension TAKE 1 TABLET BY MOUTH EVERY DAY 90 Tablet 1 07/13/2022 01/13/20 23 budesonide-formoter oL (SYMBICORT) 160-4.5 mcg/actuation Inhl [...] MOUTH EVERY DAY AT NIGHT 30 Tablet 11/17/2022 12/20/19 23 tadalafiL (CIALIS) 5 mg Oral TabletIndications:B PH without urinary obstruction TAKE 1 TAB BY MOUTH NEEDED. FOR ERECTILE DYSFUNCTION (NOT COVERED) 90 Tablet 2 07/01/2022 02/21/20 23 tamsulosin (FLOMAX) 0.4 mg Oral CapsuleIndications: BPH without urinary obstruction TAKE 2 CAPSULES BY MOUTH EVERY DAY AT NIGHT 180 Capsule 1 08/15/2022 01/20/20 23 documented as of this encounter Discharge Disposition Disposition Code Departure Means Destination Home or Self Care documented in this encounter Plan of Treatment Upcoming Encounters Date Type Department Care Team (Late st Contact Info) Description 06/28/2024 9:40 AM EST Clinical Support [facility] [address] [place] [phone] 11/19/2024 1:40 PM EDT Office Visit SEP Neurology [facility] [address] [place] [address] Lyndsay Brewer, DO [address] [place] [address] documented as of this encounter [...] Name Priority Date/Time Associated Diagnosis Comments XR SHOULDER RIGHT 4 VIEWS Routine 11/23/2022 9:04 AM EDT Chronic pain of both shoulders XR SHOULDER LEFT 4 VIEWS Routine 11/23/2022 9:04 AM EDT Chronic pain of both shoulders documented in this encounter Results * XR SHOULDER LEFT 4 VIEWS (11/23/2022 9:04 AM EDT) Anatomical Region Laterality Modality Shoulder Radiographic Pauly ging 11/23/2022 9:04 AM EDT Impressions 11/23/2022 1:20 PM EDT No acute bony abnormality of the shoulder. Mild left acromioclavicular joint degenerative changes. - Note: Radiology results need to be interpreted within a comprehensive clinical context. ??If you have questions about the radiology report, please contact the office of the ordering clinician. Narrative 11/23/2022 1:20 PM EDT XR SHOULDER LEFT 4 VIEWS, ??11/23/2022 9:04 AM CLINICAL HISTORY: ??M25.511-Pain in right cpagdiyk-GHM-57-CM G89.29-Other chronic wexf-MSK-95-CM M25.512-Pain in left bzvriugv-ETZ-93-CM COMPARISON: ??None. PROCEDURE COMMENTS: Routine views. FINDINGS: The glenohumeral and acromioclavicular joints are congruent. There is no acute fracture. There is a remote, healed fracture deformity involving the lateral left seventh rib. Left glenohumeral joint spaces maintained for age. Mild degenerative changes involving the left acromioclavicular joint. Procedure Note Waldemar Borges MD - 11/23/2022 XR SHOULDER LEFT 4 VIEWS, 11/23/2022 9:04 AM CLINICAL HISTORY: M25.511-Pain in right ahkdxqiq-TLL-61-CM G89.29-Other chronic bhas-ZDP-74-CM M25.512-Pain in left lptpspwm-ZAV-36-CM COMPARISON: None. PROCEDURE COMMENTS: Routine views. FINDINGS: The glenohumeral and acromioclavicular joints are congruent.There is no acute fracture. There is a remote, healed fracture deformity involvingthe lateral left seventh rib. Left glenohumeral joint spaces maintained for age. Mild degenerativechanges involving the left acromioclavicular joint. IMPRESSION: No acute bony abnormality of the shoulder. Mild left acromioclavicular joint degenerative changes. - Note: Radiology results need to be interpreted within a comprehensiveclinical context. If you have questions about the radiology report, please contactthe office of the ordering clinician. Tseffanie Gastright HEDIS REGISTERED NURSE RN IMG DIAGNOSTIC IMAGING ORD ERABLES Final Result * XR SHOULDER RIGHT 4 VIEWS (11/23/2022 9:04 AM EDT) Anatomical Region Laterality Modality Shoulder Radiographic Pauly ging 11/23/2022 9:04 AM EDT Impressions 11/23/2022 3:21 PM EDT No acute bony abnormality of the shoulder. Chronic changes. - Note: Radiology results need to be interpreted within a comprehensive clinical context. ??If you have questions about the radiology report, please contact the office of the ordering clinician. Narrative 11/23/2022 3:21 PM EDT XR SHOULDER RIGHT 4 VIEWS, ??11/23/2022 9:04 AM CLINICAL HISTORY: ??M25.511-Pain in right qdpagivi-EWC-91-CM G89.29-Other chronic bzpl-EJW-50-CM M25.512-Pain in left vcauhmnc-FHR-87-CM COMPARISON: ??None. PROCEDURE COMMENTS: Routine views. FINDINGS: The glenohumeral and acromioclavicular joints are congruent. There is no fracture. Osteoarthritis in the acromion clavicular joint. Superior subluxation of the humeral head consistent with chronic rotator cuff disease.. No periostitis. Procedure Note Andrews Muro MD - 11/23/2022 XR SHOULDER RIGHT 4 VIEWS, 11/23/2022 9:04 AM CLINICAL HISTORY: M25.511-Pain in right dvxhgtgr-MIU-58-CM G89.29-Other chronic xvkp-ODV-65-CM M25.512-Pain in left yaryoghb-OIM-21-CM COMPARISON: None. PROCEDURE COMMENTS: Routine views. FINDINGS: The glenohumeral and acromioclavicular joints are congruent.There is no fracture. Osteoarthritis in the acromion clavicular joint. Superior subluxation ofthe humeral head consistent with chronic rotator cuff disease.. Noperiostitis. IMPRESSION: No acute bony abnormality of the shoulder. Chronic changes. - Note: Radiology results need to be interpreted within a comprehensiveclinical context. If you have questions about the radiology report, please contactthe office of the ordering clinician. Result [facility] Steffanie Fulton APRN [facility] DIAGNOSTIC IMAGING ORD ERABLES Final Result documented in this encounter Visit Diagnoses Diagnosis Chronic pain of both shoulders Pain in joint, shoulder region documented in this encounter Care Teams Gate Mortiser Operator Relationship Specialty Start Date End Date Steffanie Fulton APRN [address] [place] [id number] PCP - General Nurse Practitioner 07/26/21 documented as of this encounter
--- OUTSIDE RECORDS SUMMARY | 2024-05-29 15:37 | XMS_ITS | Encounter Summary ---
Author Organization [place] [address] Care Team Providers Care Manufacturing Process Technician Name Role Phone Kirstin Steffanie YOLI Primary Care Provider +1- [phone] Reason for Visit * Reason Comments Medication Refill Encounter Details Date Type Department Care Team (Late st Contact Info) Description 12/17/2022 Refill [facility] [address] [place] [phone] YolandanilsonSteffanieYOLI [address] [employer] [address] Medication Refill Social History Tobacco Use Types [...] DAY AT NIGHT 90 Tablet 1 12/19/2022 10/13/2023 documented in this encounter Miscellaneous Notes * Telephone Encounter - Selena Spring CPhT - 12/19/2022 10:11 AM EDT montelukast - Medication Refill Protocol passed. [facility] Action: Approved 90 day supply with sufficient refills to noted follow-up date by provider or protocol if no follow-up date noted, not to exceed 90 days past that date. documented in this encounter Plan of Treatment Upcoming Encounters Date Type Department Care Team (Late st Contact Info) Description 06/28/2024 9:40 AM EST Clinical Support [facility] [address] [employer] [place] [address] 11/19/2024 1:40 PM EDT Office Visit [facility] [address] [place] [address] Lyndsay Brewer DO [address] [place] [address] documented as of this encounter [...] TABLET BY MOUTH EVERY DAY AT NIGHT 11/17/2022 12/19/2022 documented as of this encounter Care Teams Manufacturing Process Technician Relationship Specialty Start Date End Date Steffanie Fulton APRN [address] [place] [address] PCP - General Nurse Practitioner 07/26/21 documented as of this encounter
--- OUTSIDE RECORDS SUMMARY | 2024-05-29 15:37 | XMS_ITS | Encounter Summary ---
Author Organization [place] [address] Care Team Providers Care Prize Fighter Name Role Phone Kirstin Steffanie YOLI Primary Care Provider +1- [phone] Reason for Visit * Reason Comments Medication Refill Encounter Details Date Type Department Care Team (Late st Contact Info) Description 10/31/2022 Refill [facility] [address] [place] [phone] YolandanilsonSteffanieYOLI [address] [place] [address] Medication Refill Social History Tobacco Use Types [...] 8:08 AM EDT Jane Garrido MA * Does this person have serious difficulty walking or climbing stairs? Answer Date of Assessment Author Yes 10/07/2020 8:08 AM EDT Jane Garrido MA * Does this person have difficulty dressing or bathing? Answer Date of Assessment Author No 10/07/2020 8:08 AM EDT Jane Garrido MA * Because of a physical, mental or emotional condition, does this person have difficulty doing errands alone such as visiting a doctor's office or shopping? Answer Date of Assessment Author No 10/07/2020 8:08 AM EDT Jane Garrido MA documented as of this encounter Mental Status * Because of a physical, mental or emotional condition, does this person have serious difficulty concentrating, remembering or making decisions? Answer Entry Date Author No 10/07/2020 8:08 AM EDT Jane Garrido MA documented in this encounter Ordered Prescriptions Prescription Sig Dispense Quantity Refills Last Filled Start Date End Date losartan (COZAAR) 50 mg Oral TabletIndications: Essential hypertension TAKE 1 TABLET BY MOUTH TWICE A DAY 180 Tablet 1 11/01/2022 11/23/2022 documented in this encounter Miscellaneous Notes * Telephone Encounter - [facility]ymati [facility] - 11/01/2022 10:55 AM EDT Losartan Medication Refill Protocol failed due to labs or vitals. headline writer Reason: Abnormal serum potassium OR potassium not on file within 6 months and Serum creatininenot on file within 6 months headline writer Action: Defer to office. Patient needs labwork or vitals completed. Routed to office staff for outreach. This diagnosis was last assessed on 01/28/22. documented in this encounter Plan of Treatment Upcoming Encounters Date Type Department Care Team (Late st Contact Info) Description 06/28/2024 9:40 AM EST Clinical Support [facility] [address] [place] [address] 11/19/2024 1:40 PM EDT Office Visit [facility] Neu[facility] [address] [place] [phone] Lyndsay Brewer DO [address] [place] [address] documented as of this encounter [...] 1 Tablet by mouth 2 times daily. 05/25/2022 11/01/2022 documented as of this encounter Care Teams Prize Fighter Relationship Specialty Start Date End Date Steffanie Fulton APRN [address] [place] [address] PCP - General Nurse Practitioner 07/26/21 documented as of this encounter
--- OUTSIDE RECORDS SUMMARY | 2024-05-29 15:37 | XMS_ITS | Encounter Summary ---
Author Organization [place] [address] Care Team Providers Care Health And Wellness Coordinator Name Role Phone Steffanie Fulton APRN Primary Care Provider +1- [phone] Reason for Visit * Reason Comments Cough Congestion Encounter Details Date Type Department Care Team (Late st Contact Info) Description 10/25/2022 11:00 AM EDT Office Visit [facility] [address] [place] [address] Marcela De Leon MD Acute cough (Primary Dx); COPD, moderate (HCC) Social History Tobacco Use [...] medical appointments or from getting medications? No 04/1 09/2020 In the past 12 months, has l [...] Sign Reading Time Taken Comments Blood Pressure 134/80 10/25/2022 11:17 AM EDT Pulse 86 10/25/2022 11:17 AM EDT Temperature 36.9 ??C (98.4 ??F) 10/25/2022 11:17 AM E DT Respiratory Rate 18 10/25/2022 11:17 AM EDT Oxygen Saturation 97% 10/25/2022 11:17 AM EDT Inhaled Oxygen Concentration - - Weight 99 kg (218 lb 3.2 oz) 10/25/2022 11:17 AM EDT Height - - Body Mass Index 34.17 05/27/2022 10:02 AM EST documented in this encounter Functional Status * Is the person deaf or does he/she have serious difficulty hearing? Answer Date of Assessment Author No 10/07/2020 8:08 AM Nikki Barajas MA * Is the person blind or does he/she have serious difficulty seeing even when wearing glasses? Answer Date of Assessment Author No 10/07/2020 8:08 AM Nikki Barajas MA * Does this person have serious difficulty walking or climbing stairs? Answer Date of Assessment Author Yes 10/07/2020 8:08 AM Nikki Barajas MA * Does this person have difficulty dressing or bathing? Answer Date of Assessment Author No 10/07/2020 8:08 AM Nikki Barajas MA * Because of a physical, mental or emotional condition, does this person have difficulty doing errands alone such as visiting a doctor's office or shopping? Answer Date of Assessment Author No 10/07/2020 8:08 AM Nikki Barajas MA documented as of this encounter Mental Status * Because of a physical, mental or emotional condition, does this person have serious difficulty concentrating, remembering or making decisions? Answer Entry Date Author No 10/07/2020 8:08 AM EDT Nikki Garrido MA documented in this encounter Ordered Prescriptions Prescription Sig Dispense Quantity Refills Last Filled Start Date End Date predniSONE (DELTASONE) 20 mg Oral TabletIndications: Acute cough,COPD, moderate (HCC) Take 1 Tablet by mouth 2 times daily. 14 Tablet 10/25/2022 11/23/2022 dextromethorphan-g uaiFENesin (MUCINEX DM) 30-600 mg Oral Tablet Sustained Release 12 hrIndications:Acut e cough Take 1 Tablet by mouth every 12 hours. 20 Tablet 10/25/2022 06/21/2023 documented in this encounter Progress Notes * Marcela De Leon MD - 10/25/2022 11:00 AM EDT Vitals: 10/25/22 1117 BP: 134/80 Pulse: 86 Resp: 18 Temp: 98.4 ??F (36.9 ??C) TempSrc: Temporal SpO2: 97% Weight: 218 lb 3.2 oz (99 kg) SUBJECTIVE: Chief Complaint Patient presents with ??? Cough ??? Congestion HPI: Patient presents with deep non-productive cough. He has underlying asthma. Review of Systems Constitutional: Negative for fever. HENT: Negative for voice change. Eyes: Negative for redness. Respiratory: Positive for cough. Cardiovascular: Negative for chest pain. Gastrointestinal: Negative for abdominal pain. Musculoskeletal: Negative for back pain. Skin: Negative for rash. Neurological: Negative for dizziness and headaches. OBJECTIVE: Physical Exam Vitals reviewed. Constitutional: General: He is not in acute distress. Appearance: He is not ill-appearing. Cardiovascular: Rate and Rhythm: Normal rate and regular rhythm. Pulmonary: Effort: Pulmonary effort is normal. Breath sounds: Wheezing present. Assessment Diagnoses and all orders for this visit: Acute cough - dextromethorphan-guaiFENesin (MUCINEX DM) 30-600 mg Oral Tablet Sustained Release 12 hr; Take 1 Tablet by mouth every 12 hours. Dispense: 20 Tablet; Refill: 0 - predniSONE (DELTASONE) 20 mg Oral Tablet; Take 1 Tablet by mouth 2 times daily. Dispense: 14 Tablet; Refill: 0 COPD, moderate (HCC) (Chronic) - predniSONE (DELTASONE) 20 mg Oral Tablet; Take 1 Tablet by mouth 2 times daily. Dispense: 14 Tablet; Refill: 0 documented in this encounter Miscellaneous Notes * Patient Instructions - Kerri Ornelas MA - 10/25/2022 11:00 AM EDT You may be contacted by [...] AM EST Clinical Support [facility] [address] [place] [address] 11/19/2024 1:40 PM EDT Office Visit [facility] [address] [place] [address] Lyndsay Brewer DO [address] [place] [address] documented as of this encounter Goals Goal Patient Goal Type Associated Problems Recent Progress Patient-Stated? Author Blood Pressure < 140/90 Blood Pressure 134/84(2023 1:16 PM EST) No Yana Choi RMA Eat better, exercise, reach an ideal body weight General No Yana Choi RMA Stay Tobacco Free Lifestyle No Yana Choi RMA documented as of this encounter Visit Diagnoses Diagnosis Acute cough- Primary COPD, moderate (HCC) Chronic airway obstruction, not elsewhere classified documented in this encounter Discontinued Medications Medication Sig Discontinue Reason Start Date End Da te dextromethorphan-guaiFE Nesin (MUCINEX DM) 30-600 mg Oral Tablet Sustained Release 12 hrIndications:Nasal congestion,COVID-19 virus infection Take 1 Tablet by mouth every 12 hours. Cancelled by 02/03/2022 10/25/2022 guaiFENesin (MUCINEX) 600 mg Oral Tablet Extended Release 12hrIndications:Acute bacterial sinusitis Take 1 Tablet by mouth 2 times daily as needed for Congestion (thick secretions). Cancelled by 12/14/2021 10/25/2022 amLODIPine (NORVASC) 5 mg Oral TabletIndications:Essen tial hypertension TAKE 1 TABLET BY MOUTH EVERY DAY Cancelled by 01/28/2022 10/25/2022 documented as of this encounter Care Teams Health And Wellness Coordinator Relationship Specialty Start Date End Date Steffanie Fulton APRN [address] [place] [address] PCP - General Nurse Practitioner 07/26/21 documented as of this encounter
--- OUTSIDE RECORDS SUMMARY | 2024-05-29 15:37 | XMS_ITS | Encounter Summary ---
Author Organization [place] [address] Care Team Providers Care Leisure Travel Agent Name Role Phone Steffanie Fulton APRN Primary Care Provider +1- [phone] Reason for Visit * Reason Onset Date Comments Medication Change 12/19/2022 Encounter Details Date Type Department Care Team (Late st Contact Info) Description 12/19/2022 Telephone [facility] [address] [place] [address] Steffanie Fulton APRN [address] [place] [address] Medication Change Social History Tobacco Use Types Packs/Day Years [...] No 11/23/2022 8:15 AM EDT Magdaleno Elliott JOURNEYMAN OPERATOR ASSISTANT * Does this person have difficulty dressing or bathing? Answer Date of Assessment Author No 11/23/2022 8:15 AM EDT Magdaleno Elliott JOURNEYMAN OPERATOR ASSISTANT * Because of a physical, mental or emotional condition, does this person have difficulty doing errands alone such as visiting a doctor's office or shopping? Answer Date of Assessment Author No 11/23/2022 8:15 AM EDT Magdaleno Elliott JOURNEYMAN OPERATOR ASSISTANT documented as of this encounter Mental Status * Because of a physical, mental or emotional condition, does this person have serious difficulty concentrating, remembering or making decisions? Answer Entry Date Author No 11/23/2022 8:15 AM EDT Magdaleno Elliott LPN documented in this encounter Miscellaneous Notes * Telephone Encounter - Ligia Casper MA - 12/21/2022 8:12 AM EDT robaxin discontinued. Pt advised of medication change. * Telephone Encounter - Steffanie Fulton APRN - 12/21/2022 7:37 AM EDT Rx sent Can we please d/c the Robaxin * Telephone Encounter - Elke Elliott LPN - 12/19/2022 10:20 AM EDT Called and spoke with insurance regarding robaxin. It is not covered or available for a PA. They sent over alternatives that are covered. cyclobenzaprine 5mg tizanidine HCL 2 mg documented in this encounter Plan of Treatment Upcoming Encounters Date Type Department Care Team (Late st Contact Info) Description 06/28/2024 9:40 AM EST Clinical Support [facility] [address] [place] [address] 11/19/2024 1:40 PM EDT Office Visit [facility] Neurology [facility] [address] [place] [address] Lyndsay Brewer DO [address] [facility] [address] [place] [address] documented as of this encounter [...] Diagnoses Not on filedocumented in this encounter Discontinued Medications Medication Sig Discontinue Reason Start Date End Da te methocarbamoL (ROBAXIN) 500 mg Oral TabletIndications:Aleshia campbell physical exam Take 1 Tablet by mouth 3 times daily. DELETE- Stopped by provider 11/30/2022 12/21/2022 documented as of this encounter Care Teams Leisure Travel Agent Relationship Specialty Start Date End Date Steffanie Fulton APRN [address] [place] [id number] PCP - General Nurse Practitioner 07/26/21 documented as of this encounter
--- OUTSIDE RECORDS SUMMARY | 2024-05-29 15:37 | XMS_ITS | Encounter Summary ---
Author Organization [place] [address] Care Team Providers Care Reading Coach Name Role Phone Steffanie Fulton APRN Primary Care Provider +1- [phone] Reason for Visit * Reason Comments Medication Refill Encounter Details Date Type Department Care Team (Late st Contact Info) Description 11/16/2022 Refill [facility] [place] [facility] [address] [place] [address] Federico Camacho MD [address] [place] [address] Medication Refill Social History Tobacco Use Types [...] Jane Garrido MA documented in this encounter Plan of Treatment Upcoming Encounters Date Type Department Care Team (Late st Contact Info) Description 06/28/2024 9:40 AM EST Clinical Support [facility] [address] [place] [address] 11/19/2024 1:40 PM EDT Office Visit [facility] Neurology [facility] [address] [place] [address] Lyndsay Brewer DO [address] [place] [address] documented as of this encounter [...] on filedocumented in this encounter Care Teams Reading Coach Relationship Specialty Start Date End Date Steffanie Fulton APRN [address] [place] [address] PCP - General Nurse Practitioner 07/26/21 documented as of this encounter
--- OUTSIDE RECORDS SUMMARY | 2024-05-29 15:37 | XMS_ITS | Encounter Summary ---
Author Organization [place] [address] Care Team Providers Care General Dentist/Owner Name Role Phone Steffanie Fulton APRN Primary Care Provider +1- [phone] Reason for Visit * Reason Comments Medication Refill Encounter Details Date Type Department Care Team (Late st Contact Info) Description 10/04/2022 Refill [facility] [address] [place] [phone] Ligia Wiley MD [address] [place] [address] Medication Refill Social History Tobacco Use Types [...] Jane Garrido MA documented in this encounter Miscellaneous Notes * Telephone Encounter - Shaheed Joya CPhT - 10/06/2022 8:17 AM EDT Amlodipine- Medication refill requested too soon. Refill request denied. Refills sent on 07/13/22 with Qty: 90 and 1 refills. awning spreader did not contact pharmacy. Patient notified via [employer]Tax[employer] (if MyChart active). documented in this encounter Plan of Treatment Upcoming Encounters Date Type Department Care Team (Late st Contact Info) Description 06/28/2024 9:40 AM EST Clinical Support [facility] [address] [place] [address] 11/19/2024 1:40 PM EDT Office Visit [facility] [address] [place] [address] Lyndsay Brewer, [address] [place] [address] documented as of this encounter [...] hypertension documented in this encounter Care Teams General Dentist/Owner Relationship Specialty Start Date End Date Steffanie Fulton APRN [address] [place] [address] PCP - General Nurse Practitioner 07/26/21 documented as of this encounter
--- OUTSIDE RECORDS SUMMARY | 2024-05-29 15:37 | XMS_ITS | Encounter Summary ---
Author Organization [place] [address] Care Team Providers Care Band Splicer Name Role Phone Steffanie Fulton APRN Primary Care Provider +1- [phone] Reason for Visit * Reason Comments Medication Refill Encounter Details Date Type Department Care Team (Late st Contact Info) Description 07/12/2022 Refill [facility] [address] [place] [phone] Ligia Wiley MD [address] [email or web address] [address] Medication Refill Social History Tobacco Use Types [...] 10/07/2020 8:08 AM EDJane Guzman MA * Does this person have serious [...] MOUTH EVERY DAY 90 Tablet 1 07/13/2022 01/12/2023 documented in this encounter Miscellaneous Notes * Telephone Encounter - Niecy Riley [facility] - 07/13/2022 11:18 AM EST Amlodipine- Medication refill request deferred to office staff. Hermilo Reason: Patient has duplicate therapy or multiple doses on medication list. Please update medication list. documented in this encounter Plan of Treatment Upcoming Encounters Date Type Department Care Team (Late st Contact Info) Description 06/28/2024 9:40 AM EST Clinical Support [facility] [address] [place] [phone] 11/19/2024 1:40 PM EDT Office Visit [facility] Neurology [facility] [address] [facility] [address] Lyndsay Brewer DO [address] [facility] [address] [place] [address] documented as of this encounter [...] (NORVASC) 5 mg Oral TabletIndications:Essenti al hypertension Take 1 Tablet by mouth daily. 01/28/2022 07/13/2022 documented as of this encounter Care Teams Band Splicer Relationship Specialty Start Date End Date Steffanie Fulton APRN [address] [place] [address] PCP - General Nurse Practitioner 07/26/21 documented as of this encounter
--- OUTSIDE RECORDS SUMMARY | 2024-05-29 15:37 | XMS_ITS | Encounter Summary ---
Author Organization [place] [address] Care Team Providers Care Inventory Control Supervisor Name Role Phone Kirstin Steffanie YOLI Primary Care Provider +1- [phone] Reason for Visit * Reason Comments Medication Refill Encounter Details Date Type Department Care Team (Late st Contact Info) Description 08/16/2022 Refill [facility] [address] [place] [phone] KirstinSteffanieYOLI [address] [place] [address] Medication Refill Social History Tobacco Use Types [...] MOUTH EVERY DAY AT NIGHT 90 Tablet 08/16/2022 11/17/2022 documented in this encounter Plan of Treatment Upcoming Encounters Date Type Department Care Team (Late st Contact Info) Description 06/28/2024 9:40 AM EST Clinical Support [facility] [address] [place] 11/19/2024 1:40 PM EDT Office Visit [facility] [address] [place] [address] [place]man Lyndsay Harrelln, DO [address] [place] [address] documented as of this encounter [...] TABLET BY MOUTH EVERY DAY AT NIGHT 05/17/2022 08/16/2022 documented as of this encounter Care Teams Inventory Control Supervisor Relationship Specialty Start Date End Date Steffanie Fulton APRN [address] [place] [id number] PCP - General Nurse Practitioner 07/26/21 documented as of this encounter
--- OUTSIDE RECORDS SUMMARY | 2024-05-29 15:37 | XMS_ITS | Encounter Summary ---
Author Organization [facility] [place] [address] Care Team Providers Care Machine Boss Name Role Phone Steffanie Fulton APRN Primary Care Provider +1- [phone] Encounter Details Date Type Department Care Team (Latest Contact Info) Description 11/23/2022 Travel Social History Tobacco Use Types Packs/Day [...] 11/23/2022 8:15 AM EDT Earl Magdaleno min, BARGE LOADER * Is the person blind or does he/she have serious difficulty seeing even when wearing glasses? Answer Date of Assessment Author No 11/23/2022 8:15 AM EDT Earl, Magdaleno min, BARGE LOADER * Does this person have serious difficulty walking or climbing stairs? Answer Date of Assessment Author No 11/23/2022 8:15 AM EDT Earl Magdaleno min, BARGE LOADER * Does this person have difficulty dressing or bathing? Answer Date of Assessment Author No 11/23/2022 8:15 AM EDT Earl Magdaleno min, BARGE LOADER * Because of a physical, mental or emotional condition, does this person have difficulty doing errands alone such as visiting a doctor's office or shopping? Answer Date of Assessment Author No 11/23/2022 8:15 AM EDT Earl Magdaleno min, BARGE LOADER documented as of this encounter Mental Status * Because of a physical, mental or emotional condition, does this person have serious difficulty concentrating, remembering or making decisions? Answer Entry Date Author No 11/23/2022 8:15 AM EDT Earl Magdaleno min, BARGE LOADER documented in this encounter Plan of Treatment Upcoming Encounters Date Type Department Care Team (Late st Contact Info) Description 06/28/2024 9:40 AM EST Clinical Support [facility] [address] [place] [phone] 11/19/2024 1:40 PM EDT Office Visit [facility] Neurology [facility] [address] [place] [address] Lyndsay Brewer, DO [address] [place] [address] documented as of this encounter [...] on filedocumented in this encounter Care Teams Machine Boss Relationship Specialty Start Date End Date Steffanie Fulton APRN [address] [place] [address] PCP - General Nurse Practitioner 07/26/21 documented as of this encounter
--- OUTSIDE RECORDS SUMMARY | 2024-05-29 15:37 | XMS_ITS | Encounter Summary ---
Author Organization [place] [address] Care Team Providers Care Masonry Contractor Administrator Name Role Phone YolandaSteffanie devine YOLI Primary Care Provider +1- [phone] Encounter Details Date Type Department Care Team (Late st Contact Info) Description 12/21/2022 Orders Only [facility] [address] [place] [phone] YolandaSteffanie devine BALE COVERER [address] [place] [address] Chronic low back pain with sciatica, sciatica laterality unspecified, unspecified back pain laterality (Primary Dx) Social History Tobacco Use Types [...] Author No 11/23/2022 8:15 AM EDT Magdaleno lEliott LPN documented as of this encounter Mental [...] mouth 3 times daily. 90 Tablet 1 12/21/2022 01/13/2023 documented in this encounter Plan of Treatment Upcoming Encounters Date Type Department Care Team (Late st Contact Info) Description 06/28/2024 9:40 AM EST Clinical Support [facility] [facility] [address] [place] [phone] 11/19/2024 1:40 PM EDT Office Visit [facility] Neurology [facility] [address] [place] [address] Lyndsay Brewer DO [address] [place] [address] documented as of this encounter [...] sciatica, sciatica laterality unspecified, unspecified back pain laterality- Primary documented in this encounter Care Teams Masonry Contractor Administrator Relationship Specialty Start Date End Date Steffanie Fulton APRN [address] [place] [address] PCP - General Nurse Practitioner 07/26/21 documented as of this encounter
--- OUTSIDE RECORDS SUMMARY | 2024-05-29 15:37 | XMS_ITS | Encounter Summary ---
Author Organization [place] [address] Care Team Providers Care Specialized Language Instructor Name Role Phone Steffanie Fulton APRN Primary Care Provider [phone] Encounter Details Date Type Department Care Team (Late st Contact Info) Description 12/06/2022 Orders Only [facility] [address] [place] [address] Elke Elliott LPN Encounter for medication refill (Primary Dx) Social History Tobacco Use Types [...] 11/23/2022 8:15 AM EDT Earl Magdaleno min, [employer] * Is the person blind or does he/she have serious difficulty seeing even when wearing glasses? Answer Date of Assessment Author No 11/23/2022 8:15 AM EDT Earl Magdaleno min, [employer] * Does this person have serious difficulty walking or climbing stairs? Answer Date of Assessment Author No 11/23/2022 8:15 AM EDT EarlDexters min, [employer] * Does this person have difficulty dressing or bathing? Answer Date of Assessment Author No 11/23/2022 8:15 AM EDT Earl Magdaleno min, [employer] * Because of a physical, mental or emotional condition, does this person have difficulty doing errands alone such as visiting a doctor's office or shopping? Answer Date of Assessment Author No 11/23/2022 8:15 AM EDT Earl Magdaleno min, [employer] documented as of this encounter Mental Status * Because of a physical, mental or emotional condition, does this person have serious difficulty concentrating, remembering or making decisions? Answer Entry Date Author No 11/23/2022 8:15 AM EDT Earl Magdaleno min, [employer] documented in this encounter Ordered Prescriptions Prescription Sig Dispense Quantity Refills Last Filled Start Date End Date atorvastatin (LIPITOR) 40 mg Oral Tablet Take 1 Tablet by mouth nightly. 30 Tablet 11 12/06/2022 11/29/2023 documented in this encounter Plan of Treatment Upcoming Encounters Date Type Department Care Team (Late st Contact Info) Description 06/28/2024 9:40 AM EST Clinical Support ANTOLIN SEPULVEDA [address] [facility] [place] [id number] 11/19/2024 1:40 PM EDT Office Visit [facility] [address] [facility] [place] [address] Lyndsay Brewer, DO [address] [place] [address] documented as of this encounter [...] encounter Visit Diagnoses Diagnosis Encounter for medication refill- Primary Issue of repeat prescriptions documented in this encounter Discontinued Medications Medication Sig Discontinue Reason Start Date End Da te atorvastatin (LIPITOR) 40 mg Oral Tablet Take 1 Tablet by mouth nightly. Reorder 11/16/2021 12/06/2022 documented as of this encounter Care Teams Specialized Language Instructor Relationship Specialty Start Date End Date Steffanei Fulton APRN [address] [place] [address] PCP - General Nurse Practitioner 07/26/21 documented as of this encounter
--- OUTSIDE RECORDS SUMMARY | 2024-05-29 15:37 | XMS_ITS | Encounter Summary ---
Author Organization [facility] [place] [address] Care Team Providers Care [employer] Agent Name Role Phone Steffanie Fulton APRN Primary Care Provider [phone] Reason for Referral * Consultation (Routine) - Closed Specialty Diagnoses / Procedures Referred By Gus kunz Referred To Contact [facility] Center Diagnoses Snoring Steffanie Fulton APRN [address] [place] [address] Phone: tel: fax: Garland Clements MD [address] [place] [phone] Phone: tel: fax: Referral ID Status Reason Start Date Expiration Date Visits Re quested Visits Authorized [id number] Closed 11/23/2022 11/23/2023 99 99 Question Answer What test needs to be performed? Appropriate testing as determined by sleep specialist/sleep medicine protocols * Consultation (Routine) - Closed Specialty Diagnoses / Procedures Referred By Gus kunz Referred To Contact Diagnoses Chronic pain of both shoulders Steffanie Fulton APRN [address] [place] [phone] Phone: tel: fax: Referral ID Status Reason Start Date Expiration Date Visits Re quested Visits Authorized [id number] Closed 11/23/2022 11/23/2023 99 99 Reason for Visit * Reason Comments Annual Exam Medication Refill Encounter Details Date Type Department Care Team (Late st Contact Info) Description 11/23/2022 8:15 AM EDT Office Visit [facility] [address] [place] [phone] Steffanie uFlton APRN [address] [place] [phone] Screening for thyroid disorder (Primary Dx); Screening for metabolic disorder; Chronic pain of both shoulders; Essential hypertension; History of asthma; Snoring; Screening for diabetes mellitus (DM); Pure hypercholesterolemia ; Need for vaccination; Annual physical exam Social History Tobacco Use [...] Reading Time Taken Comments Blood Pressure 130/88 11/23/2022 8:17 AM EDT Pulse 83 11/23/2022 8:17 AM EDT Temperature 37.1 ??C (98.8 ??F) 11/23/2022 8:17 AM ED T Respiratory Rate - - Oxygen Saturation 97% 11/23/2022 8:17 AM EDT Inhaled Oxygen Concentration - - Weight 99.8 kg (220 lb) 11/23/2022 8:17 AM EDT Height 170.2 cm (5' 7 ) 11/23/2022 8:17 AM EDT Body Mass Index 34.46 11/23/2022 8:17 AM EDT documented in this encounter Functional [...] Inhl HFA Aerosol InhalerIndications :History of asthma Inhale 2 Puffs into the lungs 2 times daily. 30.6 Each 2 11/23/2022 4 losartan (COZAAR) 50 mg Oral TabletIndications: Essential hypertension Take 1 Tablet by mouth 2 times daily. 180 Tablet 1 11/23/2022 4 hydroCHLOROthiazid e (MICROZIDE) 12.5 mg Oral CapsuleIndications :Essential hypertension Take 1 Capsule by mouth daily. 90 Capsule 1 11/23/2022 4 documented in this encounter Progress Notes * Steffanie FultonYOLI - 11/23/2022 8:15 AM EDT Vitals: 11/23/22 0817 BP: 130/88 Pulse: 83 Temp: 98.8 ??F (37.1 ??C) TempSrc: Temporal SpO2: 97% Weight: 220 lb (99.8 kg) Height: 5' 7 (1.702 m) SUBJECTIVE: Chief Complaint Patient presents with ??? Annual Exam ??? Medication Refill HPI: Medicare Wellness Assessment: Subsequent Annual Medicare Wellness Assessment. Risk Assessments: Fall Risk Assessment Has the patient had any fall with injury in the past year?: (!) Yes Has the patient had 2 or more falls in the past year?: (!) Yes (tripped due to arthritis losing balance) Is the patient able to sit without assistance?: Yes Is the patient able to get up without assistance?: Yes Does the patient have a difficult time ambulating when first getting up?: (!) Yes Does the patient have rugs or runners in the home?: No Does the patient have grab bars in the bathroom?: (!) No Does the patient have stairs in the home?: No (In Office Assessment Only): [...] bladder, such as urgency or leaking urine?: Mild issues Does the patient report issues or concerns regarding hearing?: (!) Yes Activities of Daily Living Assistive Device Assessment [...] do youhave any unusual or worrisome pains?: (!) Yes (both shoulders pain x4 months) Opiate Screening Are you currently on opiate or narcotic medications?: No PHQ Depression Screening Results Little interest or pleasure in doing things: 0 Feeling down, depressed, or hopeless: 0 PHQ-2 Total Score: 0 PHQ-9 Total Score: 0 Advanced Directive Evaluation Does the patient have an Advance Directive?: (!) No Advance Care Planning Guide Given?: (!) No (For Dementia Screening below can use either AD-8 or Mini Cog. Doesn't require both.) AD-8 Dementia Screening tool results Problems with judgement: 0 Less interest in hobbies/activities: 0 Repeats the same things over and over: 0 Trouble learning how to use a tool, appliance or gadget: 0 Forgets correct month or year: 0 Trouble handling complicated financial affairs: 0 Trouble remembering appointments: 0 Daily problems with thinking and/or memory: 0 Total AD8 score:: 0 Mini Cog Dementia Screening tool results Dementia: Negative Patient Instructions AWV findings and Plan of [...] - recommend re-assess in 1 year Vaccinations: Exercise/Activity: recommended continuing current Recommended follow up [...] visit. If you have a power of state's attorney orsbonnieogate, we should also have a copy on [...] and will show as resolved in your MyChart account soon. Health Maintenance Due Topic Date Due ??? Hepatitis B Vaccine (1 of 3 - 3-dose series) Never done ??? Wellness Exam Medicare 10/08/2021 As part of today's visit the components [...] provided to the patient digitally through their MyChart account or with a paper copy if the patient doesn't have an active MyChart Account. A copy of today's progress note with recommendations below is alsoavailable electronically for patients with an active MyChart account per the Federal Cures Act. TheAVS also contains additional patient education if appropriate on topics common to wellness and their plan of care. Hx of right rotator cuff repair -continues to have issues pain bilateral, worse when laying on shoulders Reports worsening History Reviewed: No results found. No results found for this visit on 11/23/22. Patient Active Problem List Diagnosis ??? Hip pain, left ??? Essential hypertension ??? Eczema ??? OA (osteoarthritis) ??? Asthma ??? EPHRAIM (generalized anxiety disorder) ??? BPH with urinary obstruction ??? Status post left hip replacement ??? Irritable bowel syndrome with diarrhea ??? 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 Rectal bleeding ??? Diarrhea ??? Polyp of colon ??? COVID-19 ??? COPD, moderate (HCC) ??? Nodule of right lung Past Medical History: Diagnosis Date ??? Arthritis [...] REVISION-ANTERIOR ; Surgeon: Augie Ramires MD; Location: [facility] MAIN OR; Service: Orthopedics ??? KNEE SURGERY LEFT ACL RECONSTRUCTION ??? KNEE SURGERY LEFT ARTHROSCOPIES IRRAGATION X 7 FOR INFECTION ??? KNEE SURGERY RIGHT ARTHROSCOPIC MENICUS REPAIR ??? SHOULDER ARTHROSCOPY Right 11/29/2019 RIGHT SHOULDER ARTHROSCOPIC ROTATOR CUFF REPAIR DECOMPRESSION ACROMIOPLASTY, ACROMIOCLAVICULAR JOINT EXCISION; Surgeon: Kenny Loja MD; Location: [facility]; Service: Orthopedics ??? TOTAL HIP ARTHROPLASTY Left 2009 Allergies Allergen Reactions ??? Abilify [Aripiprazole] Other (See Comments) convulsions ??? Unable To Assess Patient does not take any narcotic medications Current Outpatient Medications on File Prior to Visit Medication Sig Dispense Refill ??? albuterol (PROVENTIL HFA;VENTOLIN HFA) 90 mcg/actuation Inhl HFA Aerosol Inhaler INHALE 1 TO 2 PUFFS BY MOUTH EVERY 4 HOURS NEEDED FOR WHEEZING 6.7 Each 1 ??? albuterol (PROVENTIL) 2.5 mg /3 mL (0.083 %) Inhl Solution for Nebulization TAKE 3 ML BY NEBULIZATION EVERY 4 HOURS NEEDED FOR WHEEZING 150 mL 1 ??? amLODIPine (NORVASC) 5 mg Oral Tablet TAKE 1 TABLET BY MOUTH EVERY DAY 90 Tablet 1 ??? atorvastatin (LIPITOR) 40 mg Oral Tablet Take 1 Tablet by mouth nightly. 30 Tablet 11 ??? betamethasone dipropionate (DIPROLENE) 0.05 % Top Ointment APPLY TO AFFECTED AREA EVERY DAY 15 g 2 ??? celecoxib (CELEBREX) 200 mg Oral Capsule Take 1 Capsule by mouth 2 times daily. 60 Capsule 11 ??? colestipoL (COLESTID) 1 gram Oral Tablet TAKE 1 TABLET BY MOUTH 2 TIMES DAILY. NEEDS AN APPOINTMENT 60 Tablet 0 ??? dextromethorphan-guaiFENesin (MUCINEX DM) 30-600 mg Oral Tablet Sustained Release 12 hr Take 1 Tablet by mouth every 12 hours. 20 Tablet 0 ??? diclofenac (VOLTAREN) 1 % Top Gel APPLY 2 GRAMS TOPICALLY 4 TIMES DAILY DIRECTED. 100 g 1 ??? fluticasone propionate (FLONASE) 50 mcg/actuation Nasl [place], Suspension SPRAY 1 SPRAY INTO EACH NOSTRIL EVERY DAY 32 mL 1 ??? montelukast (SINGULAIR) 10 mg Oral Tablet TAKE 1 TABLET BY MOUTH EVERY DAY AT NIGHT 30 Tablet 0 ??? Nebulizer Accessories (ALL FLOW 4000 KIT) [facility] Formulary equivalent 1 Each 0 ??? tadalafiL (CIALIS) 5 mg Oral Tablet TAKE 1 TAB BY MOUTH NEEDED. FOR ERECTILE DYSFUNCTION (NOT COVERED) 90 Tablet 2 ??? tamsulosin (FLOMAX) 0.4 mg Oral Capsule TAKE 2 CAPSULES BY MOUTH EVERY DAY AT NIGHT 180 Capsule1 Current Facility-Administered Medications on File Prior to Visit Medication Dose Route Frequency Provider Last Rate Last Admin ??? bupivacaine HCl (MARCAINE) 0.5 % (5 mg/mL) injection 2 mL 2 mL Intra- articular Augie Ramires MD 2 mL at 08/16/21 0945 ??? triamcinolone acetonide (KENALOG-40) injection 40 mg 40 mg Intra-articular Augie Ramires MD 40 mg at 08/16/21 0945 Social History Socioeconomic History ??? Marital status: Legally Spouse name: None ??? Number of children: None ??? Years of education: None ??? Highest education level: None Tobacco Use ??? Smoking status: Never ??? Smokeless tobacco: Current Types: Snuff Vaping Use ??? Vaping Use: Never used Substance and Sexual Activity ??? Alcohol use: No ??? 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 Influenza Patient Reported 04/21/2010 ??? Influenza Vaccine Quadrivalent 03/10/2016, 05/29/2017, 03/20/2018 ??? Influenza Vaccine, Unspecified Formulation 03/18/2019 ??? Influenza Virus Vaccine Quadrivalant, Flublok 04/13/2020, 04/25/2022 ??? PPD Test 12/20/2010 ??? Pneumococcal Conjugate Vaccine 20 Valent 11/23/2022 ??? Pneumococcal Polysaccharide 23 Valent 04/21/2010, 03/10/2016 ??? Tdap 12/26/2018 ??? Zoster Recombinant 11/28/2017, 06/21/2018 Health Maintenance Topic Date Due ??? Hepatitis B Vaccine (1 of 3 - 3-dose series) Never done ??? Wellness Exam Medicare 10/08/2021 ??? COVID-19 Vaccine (1) 11/24/2023 (Originally 05/13/1966) ??? Colon Cancer Screening 08/18/2025 ??? DTaP/TDaP/Td (4 - Td or Tdap) 03/18/2029 ??? Influenza Vaccine Completed ??? Zoster Completed ??? Pneumococcal Vaccine 0-64 Completed Patient Care Team: Steffanie Fulton APRN as PCP - General (Nurse Practitioner) Additional issues addressed today: Pt states he has been having pain in both shoulders x 4 months Also states he is has noticed he is having increased bruises and feeling fatigued Review of Systems Constitutional: Negative. HENT: Negative. Eyes: Negative. Respiratory: Negative. Cardiovascular: Negative. Gastrointestinal: Negative. Musculoskeletal: Positive for arthralgias. Neurological: Negative. All other systems reviewed and are negative. OBJECTIVE: Physical Exam Constitutional: Appearance: Normal appearance. HENT: Head: Normocephalic and atraumatic. Cardiovascular: Rate and Rhythm: Normal rate and regular rhythm. Pulses: Normal pulses. Heart sounds: Normal heart sounds. Pulmonary: Effort: Pulmonary effort is normal. Breath sounds: Normal breath sounds. Skin: General: Skin is warm and dry. Capillary Refill: Capillary refill takes less than 2 seconds. Neurological: Mental Status: He is alert. Psychiatric: Mood and Affect: Mood normal. Behavior: Behavior normal. Assessment Diagnoses and all orders for this visit: Screening for thyroid disorder - TSH REFLEX; Future Screening for metabolic disorder - COMPREHENSIVE METABOLIC PANEL; Future Chronic pain of both shoulders - AMB REFERRAL TO ORTHOPEDIC SURGERY - XR SHOULDER RIGHT 4 VIEWS; Future - XR SHOULDER LEFT 4 VIEWS; Future Essential hypertension - hydroCHLOROthiazide (MICROZIDE) 12.5 mg Oral Capsule; Take 1 Capsule by mouth daily. Dispense: 90Capsule; Refill: 1 - losartan (COZAAR) 50 mg Oral Tablet; Take 1 Tablet by mouth 2 times daily. Dispense: 180 Tablet; Refill: 1 History of asthma - budesonide-formoteroL (SYMBICORT) 160-4.5 mcg/actuation Inhl HFA Aerosol Inhaler; Inhale 2 Puffs into the lungs 2 times daily. Dispense: 30.6 Each; Refill: 2 Snoring - AMB REFERRAL TO SLEEP STUDIES/MEDICINE Screening for diabetes mellitus (DM) - HEMOGLOBIN A1C; Future Pure hypercholesterolemia - CBC WITH DIFF; Future - LIPID SCREEN; Future Need for vaccination - PNEUMOCOCCAL CONJUGATE VACCINE 20 VALENT IM Annual physical exam * Milly Dasilva - 11/23/2022 8:15 AM EDT Right antecubital. 1 mint, 1purple documented in this encounter Plan of Treatment Upcoming Encounters Date Type Department Care Team (Late st Contact Info) Description 06/28/2024 9:40 AM EST Clinical Support [facility] [address] [place] [phone] 11/19/2024 1:40 PM EDT Office Visit [facility] [address] [place] [address] Lyndsay Brewer DO [address] [place] [address] Scheduled Referrals Name Type Priority Associated Diagnoses Order Schedule AMB REFERRAL TO ORTHOPEDIC SURGERY Outpatient Referral Routine Chronic pain of both shoulders Ordered: 11/23/2022 AMB REFERRAL TO SLEEP STUDIES/MEDICINE Outpatient Referral Routine Snoring Ordered: 11/23/2022 documented as of this encounter Goals Goal [...] Date/Time Associated Diagnosis Comments TSH REFLEX Routine 11/23/2022 8:45 AM EDT Screening for thyroid disorder CBC WITH DIFF Routine 11/23/2022 8:45 AM EDT Pure hypercholesterolemia HEMOGLOBIN A1C Routine 11/23/2022 8:45 AM EDT Screening for diabetes mellitus (DM) LIPID SCREEN Routine 11/23/2022 8:45 AM EDT Pure hypercholesterolemia COMPREHENSIVE METABOLIC PANEL Routine 11/23/2022 8:45 AM EDT Screening for metabolic disorder documented in this encounter Results * XR [...] 9:04 AM CLINICAL HISTORY: ??M25.511-Pain in right prhnptac-SYE-73-CM G89.29-Other chronic yvue-PDM-23-CM M25.512-Pain in left bulgkzgw-TQL-70-CM COMPARISON: ??None. PROCEDURE COMMENTS: Routine views. FINDINGS: [...] 9:04 AM CLINICAL HISTORY: M25.511-Pain in right lyagdncd-TUI-28-CM G89.29-Other chronic ohen-QIS-85-CM M25.512-Pain in left xhrxdrnd-FJT-60-CM COMPARISON: None. PROCEDURE COMMENTS: Routine views. FINDINGS: [...] 9:04 AM CLINICAL HISTORY: ??M25.511-Pain in right fftlcmkq-ANT-62-CM G89.29-Other chronic qnnv-TAO-67-CM M25.512-Pain in left gdzamzyr-JNH-54-CM COMPARISON: ??None. PROCEDURE COMMENTS: Routine views. FINDINGS: The glenohumeral and acromioclavicular joints are congruent. There is no fracture. Osteoarthritis in the acromion clavicular joint. Superior subluxation of the humeral head consistent with chronic rotator cuff disease.. No periostitis. Procedure Note Andrews Muro MD - 11/23/2022 XR SHOULDER RIGHT 4 VIEWS, 11/23/2022 9:04 AM CLINICAL HISTORY: M25.511-Pain in right krhyqnbt-OJL-29-CM G89.29-Other chronic ohqa-IQS-66-CM M25.512-Pain in left nssvqfoz-RFS-48-CM COMPARISON: None. PROCEDURE COMMENTS: Routine views. FINDINGS: [...] please contactthe office of the ordering clinician. [facility] SHIP SCRAPER IM DIAGNOSTIC IMAGING ORD ERABLES Final Result * (ABNORMAL) HEMOGLOBIN A1C (11/23/2022 8:45 AM EDT) Hgb A1C 6.2(H) 4.2 - 5.6 % 11/23/2022 6:35 PM EDT [facility] [employer] Est. Avg Glucose 131 mg/dL 11/23/2022 6:35 PM EDT [facility] Blood VENOUS BLOOD / Unknown Venipuncture / Unknown 11/23/2022 8:45 AM EDT 11/23/2022 8:45 AM EDT Narrative [facility] - 11/23/2022 6:35 PM EDT REFERENCE RANGE: Normal: 4.0-5.6% Pre-diabetes: 5.7-6.4% Provisional diagnosis of diabetes: >6.4% Hgb F>10% and anything which shortens red cell survival, such as hemolytic anemia, or unstable hemoglobin variants such as HbSS, HbSC, or HbCC, will lower the HbA1c value associated with a given level of glycemic control. ? [id number] SHIP SCRAPER CHEMISTRY ORDERABLES Final Result Performing Organization Address [facility] de Phone Number [facility] [employer] [address] [place] [address] , [place] [address] * TSH REFLEX (11/23/2022 8:45 AM EDT) TSH Reflex 1.190 0.270 - 4.200 mcIU/mL 11/23/2022 6:13 PM EDT [employer] Blood VENOUS BLOOD / Unknown Venipuncture / Unknown 11/23/2022 8:45 AM EDT 11/23/2022 8:45 AM EDT Narrative [employer] - 11/23/2022 6:13 PM EDT Ingestion of john doses of biotin (>5 mg/day) taken within 8 hours of drawing blood sample can interfere with this immunoassay test. [id number] SHIP SCRAPER CHEMISTRY ORDERABLES Final Result Performing Organization Address [facility] de Phone Number [employer] [address] [place] [address] , [place] [address] * (ABNORMAL) LIPID SCREEN (11/23/2022 8:45 AM EDT) Cholesterol 115 <200 mg/dL 11/23/2022 6:13 PM EDT [facility] [employer] [facility] Comment: < 200 ?Desirable 200 - 239 ? Borderline High >= 240 ?High Triglyceride 95 <150 mg/dL 11/23/2022 6:13 PM EDT [employer] Comment: < 150 ? Normal 150 - 199 ?Borderline High 200 - 499 ?High ??>= 500 ? Very High HDL 34(L) >=40 mg/dL 11/23/2022 6:13 PM EDT [facility] [employer] Comment: ??> 60 ?Optimal 40 - 60 ?Acceptable ?? < 40 ?Low LDL Calculated 63 <100 mg/dL 11/23/2022 6:13 PM EDT [facility] [employer] [facility] Comment: < 100 ?Optimal 100 - 129 ? Near or above optimal 130 - 159 ? Borderline High 160 - 189 ? High >= 190 ?Very High Non-HDL-C Calculated 81 <=129 mg/dL 11/23/2022 6:13 PM EDT [facility] [employer] [facility] Comment: <130 ?Desirable 130-159 Above Desirable 160-189 Borderline High 190-219 High >= 220 ??Very High Fasting Specimen? No None 023 6:13 PM EDT [facility] Blood VENOUS BLOOD / Unknown Venipuncture / Unknown 11/23/2022 8:45 AM EDT 11/23/2022 8:45 AM EDT us Steffanie Gastright SHIP SCRAPER CHEMISTRY ORDERABLES Final Result [facility] [employer] [address] [facility] , [address] [place] [id number] [facility] [address] [place] [address] * (ABNORMAL) CBC WITH DIFF (11/23/2022 8:45 AM EDT) WBC 5.5 3.7 - 10.3 x10(3)/mcL 11/23/2022 3:45 PM EDT [facility] RBC 4.57(L) 4.60 - 6.10 x10(6)/mcL 11/23/2022 3:45 PM EDT [facility] Hgb 14.7 13.7 - 17.5 g/dL 11/23/2022 3:45 PM EDT [facility] Hct 44.2 40.0 - 51.0 % 11/23/2022 3:45 PM EDT [facility] MCV 96.7 80.0 - 100.0 fL 11/23/2022 3:45 PM EDT [facility] MCH 32.2 26.0 - 34.0 pg 11/23/2022 3:45 PM EDT [facility] MCHC 33.3 30.7 - 35.5 g/dL 11/23/2022 3:45 PM EDT [facility] RDW 12.5 <=14.9 % 11/23/2022 3:45 PM EDT [facility] Platelet 181 155 - 369 x10(3)/mcL 11/23/2022 3:45 PM EDT [facility] MPV 9.8 8.8 - 12.5 fL 11/23/2022 3:45 PM EDT [facility] Neut Percent 64.8 % 11/23/2022 3:45 PM EDT [facility] Comment:Neutrophils equals s egs plus bands Imm Gran% 0.4 % 11/23/2022 3:45 PM EDT [facility] Comment:Automated count of m etamyelocytes, myelocytes and promyelocytes. Lymph Percent 25.4 % 11/23/2022 3:45 PM EDT [facility] Sampson Percent 7.6 % 11/23/2022 3:45 PM EDT [facility] Eos Percent 1.4 % 11/23/2022 3:45 PM EDT [facility] Baso Percent 0.4 % 11/23/2022 3:45 PM EDT [facility] Neut # 3.6 1.6 - 6.1 x10(3)/[facility] 11/23/2022 3:45 PM EDT [facility] Comment:Neutrophils equals s egs plus bands IMMGRAN# 0.0 0.0 - 0.1 x10(3)/mcL 11/23/2022 3:45 PM EDT [facility] Comment:Automated count of m etamyelocytes, myelocytes and promyelocytes. An absolute IG <0.1 is reported as 0.0. Lymph # 1.4 1.2 - 3.9 x10(3)/mcL 11/23/2022 3:45 PM EDT [facility] Sampson # 0.4 0.3 - 0.9 x10(3)/mcL 11/23/2022 3:45 PM EDT [facility] Eos# 0.1 0.0 - 0.5 x10(3)/mcL 11/23/2022 3:45 PM EDT [facility] Baso # 0.0 0.0 - 0.1 x10(3)/mcL 11/23/2022 3:45 PM EDT [facility] Blood VENOUS BLOOD / Unknown Venipuncture / Unknown 11/23/2022 8:45 AM EDT 11/23/2022 8:45 AM EDT us Steffanie Gastright SHIP SCRAPER HEMATOLOGY ORDERABLES Karina l Result [facility] [address] [facility] , [place] [address] * (ABNORMAL) COMPREHENSIVE METABOLIC PANEL (11/23/2022 8:45 AM EDT) Sodium 140 136 - 145 mmol/L 11/23/2022 6:13 PM EDT [facility] Potassium 4.0 3.5 - 5.0 mmol/L 11/23/2022 6:13 PM EDT [facility] Chloride 104 98 - 107 mmol/L 11/23/2022 6:13 PM EDT [facility] Total CO2 23 22 - 29 mmol/L 11/23/2022 6:13 PM EDT [facility] Anion Gap 13 7 - 16 mmol/L 11/23/2022 6:13 PM EDT [facility] Calcium 9.7 8.6 - 10.4 mg/dL 11/23/2022 6:13 PM EDT [facility] Glucose Lvl 120(H) 74 - 100 mg/dL 11/23/2022 6:13 PM EDT [facility] BUN 21(H) 6 - 20 mg/dL 11/23/2022 6:13 PM EDT [facility] Creatinine 1.18 0.67 - 1.30 mg/dL 11/23/2022 6:13 PM EDT [facility] Albumin 4.4 3.5 - 5.2 gm/dL 11/23/2022 6:13 PM EDT [facility] Total Protein 7.1 6.4 - 8.3 gm/dL 11/23/2022 6:13 PM EDT [facility] Bili Total 0.6 0.1 - 1.4 mg/dL 11/23/2022 6:13 PM EDT [facility] ALT 33 <=41 U/L 11/23/2022 6:13 PM EDT [facility] AST 32 <=40 U/L 11/23/2022 6:13 PM EDT [facility] Alk Phos 121 40 - 129 U/L 11/23/2022 6:13 PM EDT [facility] eGFR (CKD-EPIcr 2020) 73 >=60 mL/min/1.7 3 m2 11/23/2022 6:13 PM EDT [facility] Comment:Estimated GFR was ca lculated using the CKD-EPIcr (2020) equation refit without race. The equation is recommended by the National Kid[employer] - [place] [employer] Neph[employer] Task Force. Blood VENOUS BLOOD / Unknown Venipuncture / Unknown 11/23/2022 8:45 AM EDT 11/23/2022 8:45 AM EDT us Steffanie Gastright SHIP SCRAPER CHEMISTRY ORDERABLES Final Result [facility], [address] , [address] [place] [id number] [facility] [address] [place], [place] [phone] documented in this encounter Visit Diagnoses Diagnosis Screening for thyroid disorder- Primary Screening for metabolic disorder Chronic pain of both shoulders Pain in joint, shoulder region Essential hypertension Unspecified essential hypertension History of asthma Personal history of other diseases of respiratory system Snoring Other dyspnea and respiratory abnormality Screening for diabetes mellitus (DM) Screening for diabetes mellitus Pure hypercholesterolemia Need for vaccination Need for prophylactic vaccination and inoculation against unspecified single disease Annual physical exam Routine general medical examination at a health care facility Chronic pain of both shoulders Pain in joint, shoulder region documented in this encounter Discontinued Medications Medication Sig Discontinue Reason Start Date End Da te predniSONE (DELTASONE) 20 mg Oral TabletIndications:Acute cough,COPD, moderate (HCC) Take 1 Tablet by mouth 2 times daily. Cancelled by MD 10/25/2022 11/23/2022 hydroCHLOROthiazide (MICROZIDE) 12.5 mg Oral CapsuleIndications:Essent ial hypertension TAKE 1 CAPSULE BY MOUTH EVERY DAY Reorder 10/10/2022 11/23/2022 losartan (COZAAR) 50 mg Oral TabletIndications:Essenti al hypertension TAKE 1 TABLET BY MOUTH TWICE A DAY Reorder 11/01/2022 11/23/2022 SYMBICORT 160-4.5 mcg/actuation [facility] HFA Aerosol Inhaler INHALE 2 PUFFS INTO THE LUNGS TWICE A DAY Reorder 04/19/2022 11/23/2022 documented as of this encounter Orders Immunization/Injection Count Last Ordered Date First Ordered Date PNEUMOCOCCAL CONJUGATE VACCI NE 20 VALENT IM 1 11/23/2022 documented in this encounter Care Teams Four H Club Agent Relationship Specialty Start Date End Date Steffanie Fulton APRN [address] [place] [address] PCP - General Nurse Practitioner 07/26/21 documented as of this encounter
--- OUTSIDE RECORDS SUMMARY | 2024-05-29 15:37 | XMS_ITS | Encounter Summary ---
Author Organization [facility] [address] Care Team Providers Care Final Tester Name Role Phone Steffanie Fulton APRN Primary Care Provider +1- [phone] Reason for Visit * Reason Onset Date Comments Referral 11/17/2022 Encounter Details Date Type Department Care Team (Late st Contact Info) Description 11/17/2022 Patient Outreach [facility] [address] [place] [id number] Rasheeda Edwards BS, COS Referral Social History Tobacco Use Types [...] of Assessment Author Yes 10/07/2020 8:08 AM EDJane Guzman MA * Does this person have difficulty dressing or bathing? Answer Date of Assessment Author No 10/07/2020 8:08 AM EDJane Guzman MA * Because of a physical, mental or emotional condition, does this person have difficulty doing errands alone such as visiting a doctor's office or shopping? Answer Date of Assessment Author No 10/07/2020 8:08 AM EDJane Guzman MA documented as of this encounter Mental Status * Because of a physical, mental or emotional condition, does this person have serious difficulty concentrating, remembering or making decisions? Answer Entry Date Author No 10/07/2020 8:08 AM EDJane Guzman MA documented in this encounter Progress Notes * Rasheeda Edwards BS, COS - 11/17/2022 1:49 PM EDT Two Needle Machine Operator Management Referral Request Referral received from: Meseret Last Referral note: Advance Care Planning needed for appointment on 11/23/2022 Assigned to: NICKOLAS Jose/RN documented in this encounter Plan of Treatment Upcoming Encounters Date Type Department Care Team (Late st Contact Info) Description 06/28/2024 9:40 AM EST Clinical Support [facility] [address] [place] [address] 11/19/2024 1:40 PM EDT Office Visit SEP Neurology [facility] [address] [place] [phone] Lyndsay Brewer, DO [address] [place] [address] documented as of this encounter [...] on filedocumented in this encounter Care Teams Final Tester Relationship Specialty Start Date End Date Steffanie Fulton APRN [address] [address] PCP - General Nurse Practitioner 07/26/21 documented as of this encounter
--- OUTSIDE RECORDS SUMMARY | 2024-05-29 15:37 | XMS_ITS | Encounter Summary ---
Author Organization [place] [address] Care Team Providers Care Fisher Crab Name Role Phone Steffanie Fulton APRN Primary Care Provider +1- [phone] Reason for Visit * Reason Comments Foot Pain B/L ball Encounter Details Date Type Department Care Team (Late st Contact Info) Description 12/02/2022 11:00 AM EDT Office Visit [facility] Podiatry [facility] [address] [facility] [address] [place] [address] Arvin Walton, NABIL [address] [facility] [address] [place], [place] [id number] Foot pain, right (Primary Dx); Foot pain, left; Metatarsalgia of both feet; Capsulitis of foot, unspecified laterality Social History Tobacco Use Types Packs/Day [...] - - Temperature 36.1 ??C (97 ??F) 12/02/2022 11:37 AM EDT Respiratory Rate - - Oxygen Saturation - - Inhaled Oxygen Concentration - - Weight 99.8 kg (220 lb) 12/02/2022 11:37 AM EDT Height 170.2 cm (5' 7 ) 12/02/2022 11:37 AM EDT Body Mass Index 34.46 12/02/2022 11:37 AM EDT documented in this encounter Functional [...] Filled Start Date End Date predniSONE (DELTASONE) 5 mg Oral TabletIndications: Foot pain, right,Foot pain, left Take 1 Tablet by mouth 4 times daily for 3 days, THEN 1 Tablet 3 times daily for 3 days, THEN 1 Tablet 2 times daily for 3 days, THEN 1 Tablet daily for 3 days. 30 Tablet 12/02/2022 12/14/2022 documented in this encounter Progress Notes * Arvin Walton DPM - 12/02/2022 11:00 AM EDT [facility] Podiatric Surgery Outpatient Progress Note Name: Zuhair Whitlock Primary Care Physician: Steffanie Fulton APRN Chief Complaint: Chief Complaint Patient presents with ??? Foot Pain B/L ball History of Presenting Illness: Zuhair Whitlock is a(n) 57 y.o. male who presents the office for recurrent pain to bilateral forefoot. Endorses pain and discomfort with longer periods of weightbearing activity. He was previously wearing metatarsal pads which had helped but are no longer providing relief. Denies injury or trauma. No redness or bruising. Medications: Outpatient Medications Marked as Taking for the 12/02/22 encounter (Office Visit) with Arvin Walton DPM Medication Sig Dispense Refill ??? albuterol (PROVENTIL [...] Aerosol Inhaler Inhale 2 Puffsinto the lungs 2 times daily. 30.6 Each 2 ??? celecoxib (CELEBREX) 200 mg Oral [...] ??? fluticasone propionate (FLONASE) 50 mcg/actuation Nasl [place], Suspension SPRAY 1 SPRAY INTO EACH NOSTRIL EVERY DAY 32 mL 1 ??? hydroCHLOROthiazide (MICROZIDE) 12.5 mg Oral Capsule Take 1 Capsule by mouth daily. 90 Capsule 1 ??? losartan (COZAAR) 50 mg Oral Tablet Take 1 Tablet by mouth 2 times daily. 180 Tablet 1 ??? methocarbamoL (ROBAXIN) 500 mg Oral Tablet Take 1 Tablet by mouth 3 times daily. 90 Tablet 1 ??? montelukast (SINGULAIR) 10 mg Oral Tablet TAKE 1 TABLET BY MOUTH EVERY DAY AT NIGHT 30 Tablet 0 ??? Nebulizer Accessories (ALL FLOW 4000 KIT) [facility] equivalent 1 Each 0 ??? tadalafiL (CIALIS) 5 mg Oral Tablet TAKE 1 TAB BY MOUTH NEEDED. FOR ERECTILE DYSFUNCTION (NOT COVERED) 90 Tablet 2 ??? tamsulosin (FLOMAX) 0.4 mg Oral Capsule TAKE 2 CAPSULES BY MOUTH EVERY DAY AT NIGHT 180 Capsule1 Current Facility-Administered Medications for the 12/02/22 encounter (Office Visit) with Arvin Walton DPM Medication Dose Route Frequency Provider Last Rate Last Admin ??? bupivacaine HCl (MARCAINE) 0.5 % (5 mg/mL) injection 2 mL 2 mL Intra- articular Augie Ramires MD 2 mL at 08/16/21 0945 Allergies Allergen Reactions ??? Abilify [Aripiprazole] Other (See Comments) convulsions ??? Unable To Assess Patient does not take any narcotic medications Past Medical History: Diagnosis Date ??? Arthritis [...] REVISION-ANTERIOR ; Surgeon: Augie Ramires MD; Location: [facility]; Service: Orthopedics ??? KNEE SURGERY LEFT ACL RECONSTRUCTION ??? KNEE SURGERY LEFT ARTHROSCOPIES IRRAGATION X 7 FOR INFECTION ??? KNEE SURGERY RIGHT ARTHROSCOPIC MENICUS REPAIR ??? SHOULDER ARTHROSCOPY Right 11/29/2019 RIGHT SHOULDER ARTHROSCOPIC ROTATOR CUFF REPAIR DECOMPRESSION ACROMIOPLASTY, ACROMIOCLAVICULAR JOINT EXCISION; Surgeon: Kenny Loja MD; Location: [facility]; Service: Orthopedics ??? TOTAL HIP ARTHROPLASTY Left 2009 Family History Problem Relation Age of Onset ??? Diabetes Mother ??? Heart Disease Mother ??? High Blood Pressure Mother ??? High Cholesterol Mother ??? Cancer Father 40 stomach ??? Other (Diabetes living) Sister 1 sister passed ??? No Known Problems Brother ??? Diabetes Maternal Grandmother ??? No Known Problems Maternal Grandfather ??? Cancer Paternal Grandmother Social History: Zuhair's social history reviewed: Social History Socioeconomic History ??? Marital status: [...] addition to any already discussedin the HPI: ?? Constitutional: Age appropriate, denies F/C/N/V/SOB ??? HENT: NEG: difficulty swallowing ??? Respiratory: NEG: shortness of breath and chest pain ??? Cardiovascular: NEG: syncope and chest pain ??? Gastrointestinal: NEG: nausea and vomiting ??? Musculoskeletal: Negative except per physical exam ??? Integumentary: NEG: bruising, chronic wound and lacerations ??? Hematology / Lymphatics: NEG: bruises and bleeding problems ??? Psychiatric: Mood/affect appropriate Physical Examination: Vital Signs: Temp 97 ??F (36.1 ??C) (Forehead) Ht 5' 7 (1.702 m) Wt 220 lb (99.8 kg) BMI 34.46 kg/m? General: Zuhair appears in no acute distress ??? Skin: warm, dry, and intact ??? Head: Normocephalic, without obvious abnormality, atraumatic ??? Lungs: Breathing unlabored ??? Neurological: sensation grossly normal. LE exam separate. ??? Extremities/Musculoskeletal: See Exam Lower Extremity Exam: Constitutional The patient is awake, alert, well developed, well-nourished and well groomed. No acute distress. Cardiovascular DP pulses are 2/4 bilateral and PT pulses are 2/4 bilateral. CFT <3 seconds to digits 1-5 bilateral. Edema is again noted to b/l forefoot. Calor is absent. Neurologic Sensation intact to light touch and 5.07/10g [place] Parveen monofilament bilateral. Dermatologic Integument is dry, supple bilateral. Ecchymosis is absent. Erythema is absent. No palpable subcutaneous masses bilateral foot. Musculoskeletal Pain with palpation noted to met heads 2-4 b/l, - lachmann test, - richi's sign b/l. +/- piano bennett sign TMTJs 2, 3 b/l. Muscle strength is 5/5 all LE groups bilateral. Gait is antalgic. Assessment: Zuhair Whitlock was seen today for Chief Complaint Patient presents with ??? Foot Pain B/L ball . Zuhair was seen today for foot pain. Diagnoses and all orders for this visit: Foot pain, right - predniSONE (DELTASONE) 5 mg Oral Tablet; Take 1 Tablet by mouth 4 times daily for 3 days, THEN 1 Tablet 3 times daily for 3 days, THEN 1 Tablet 2 times daily for 3 days, THEN 1 Tablet daily for 3 days. Foot pain, left - predniSONE (DELTASONE) 5 mg Oral Tablet; Take 1 Tablet by mouth 4 times daily for 3 days, THEN 1 Tablet 3 times daily for 3 days, THEN 1 Tablet 2 times daily for 3 days, THEN 1 Tablet daily for 3 days. Metatarsalgia of both feet Capsulitis of foot, unspecified laterality Plan: - Patient examined and evaluated. Discussed clinical findings and possible etiologies of patient's symptoms. - We discussed treatment options. - RICE therapy. - WBAT in supportive shoe gear. Powerstep orthotics were fitted and dispensed today. Patient was observed ambulating in the orthotic devices with noted relief of symptoms. May need modifications. - Patient was prescribed prednisone taper. Patient was advised that if any problems or complications arise related to the medication that they are to discontinue the use of the medication immediatelyand obtain appropriate medical care at the nearest emergency room. Patient voiced their understanding. - All of patient's questions, comments and concerns were addressed. Patient agreeable to plan. Patient to follow-up in 2 to 3 weeks, or sooner as needed. Arvin Walton DPM 12/02/2022 Disclaimer - This note was completed using [...] Support [facility] [address] [phone] 11/19/2024 1:40 PM EDT Office Visit SEP Neurology [facility] [address] [place] [address] Lyndsay Brewer, DO [address] [place] [address] documented as of this encounter Goals Goal Patient Goal Type Associated Problems Recent Progress Patient-Stated? Author Blood Pressure < 140/90 Blood Pressure 134/84(2023 1:16 PM EST) No Yana Choi RMA Eat better, exercise, reach an ideal body weight General No Yana Choi RMA Stay Tobacco Free Lifestyle No Yana Choi RMA documented as of this encounter Visit Diagnoses Diagnosis Foot pain, right- Primary Pain in limb Foot pain, left Pain in limb Metatarsalgia of both feet Enthesopathy of ankle and tarsus, unspecified Capsulitis of foot, unspecified laterality documented in this encounter Care Teams Fisher Crab Relationship Specialty Start Date End Date Steffanie Fulton APRN [address] [address] PCP - General Nurse Practitioner 07/26/21 documented as of this encounter
--- OUTSIDE RECORDS SUMMARY | 2024-05-29 15:37 | XMS_ITS | Encounter Summary ---
Author Organization [place] [address] Care Team Providers Care Optical Design Engineer Name Role Phone Kirstin Steffanie KENT Primary Care Provider +1- [phone] Encounter Details Date Type Department Care Team (Late st Contact Info) Description 11/30/2022 Orders Only [facility] [address] [place] [phone] Chica FultonandaYOLI [address] [place] [address] Annual physical exam (Primary Dx) Social History Tobacco Use Types [...] Refills Last Filled Start Date End Date methocarbamoL (ROBAXIN) 500 mg Oral TabletIndications: Annual physical exam Take 1 Tablet by mouth 3 times daily. 90 Tablet 1 11/30/2022 12/21/2022 documented in this encounter Plan of Treatment Upcoming Encounters Date Type Department Care Team ([place] Contact Info) Description 06/28/2024 9:40 AM EST Clinical Support [facility] [address] [phone] 11/19/2024 1:40 PM EDT Office Visit SEP Neurology [facility] [address] [facility] [place] [phone] Lyndsay Brewer, DO [address] [place] [address] documented as of this encounter Goals Goal Patient Goal Type Associated Problems Recent Progress Patient-Stated? Author Blood Pressure < 140/90 Blood Pressure 134/84(2023 1:16 PM EST) No Yana Choi RMA Eat better, exercise, reach an ideal body weight General No Yana Choi, RMA Stay Tobacco Free Lifestyle No Yana Choi RMA documented as of this encounter Visit Diagnoses Diagnosis Annual physical exam- Primary Routine general medical examination at a health care facility documented in this encounter Care Teams Optical Design Engineer Relationship Specialty Start Date End Date Steffanie Fulton APRN [address] [address] PCP - General Nurse Practitioner 07/26/21 documented as of this encounter
--- OUTSIDE RECORDS SUMMARY | 2024-05-29 15:37 | XMS_ITS | Encounter Summary ---
Author Organization [place] [address] Care Team Providers Care Electrical Maintenance Engineer Name Role Phone Steffanie Fulton APRN Primary Care Provider +1- [phone] Reason for Visit * Reason Comments Medication Refill Encounter Details Date Type Department Care Team (Late st Contact Info) Description 08/15/2022 Refill [facility] [address] [place] [address] Marcela De Leon MD Medication [...] DAY AT NIGHT 180 Capsule 1 08/15/2022 3 documented in this encounter Plan of Treatment Upcoming Encounters Date Type Department Care Team (Late st Contact Info) Description 06/28/2024 9:40 AM EST Clinical Support [place] [place] [address] [place] [phone] 11/19/2024 1:40 PM EDT Office Visit SEP Neurology [facility] [address] [place] [address] Lyndsay Brewer, DO [address] [place] [address] documented as of this encounter [...] mg Oral CapsuleIndications:BPH without urinary obstruction TAKE 1 CAPSULE BY MOUTH EVERY DAY AT NIGHT 11/18/2021 08/15/2022 documented as of this encounter Care Teams Electrical Maintenance Engineer Relationship Specialty Start Date End Date Steffanie Fulton APRN [address] [place] [address] PCP - General Nurse Practitioner 07/26/21 documented as of this encounter
--- OUTSIDE RECORDS SUMMARY | 2024-05-29 15:37 | XMS_ITS | Encounter Summary ---
Author Organization [place] [address] Care Team Providers Care Recovery Unit Operator Name Role Phone Steffanie Fulton APRN Primary Care Provider +1- [phone] Reason for Visit * Reason Comments Medication Refill Encounter Details Date Type Department Care Team (Late st Contact Info) Description 10/08/2022 Refill [facility] [address] [place] [phone] Ligia Wiley MD [address] [place] [address] Medication Refill Social History Tobacco Use Types [...] BY MOUTH EVERY DAY 90 Capsule 1 10/10/2022 3 documented in this encounter Miscellaneous Notes * Telephone Encounter - Marcela Ignacio CPhT - 10/10/2022 3:49 PM EDT Hctz- Medication Refill Protocol failed due to need for appointment and labs/vitals. senior sales director Reason: Past follow-up date noted by protocol. Protocol required follow-up within 6 months. Last assessed at visit 01/28/22. There is no appointment scheduled. senior sales director Reason: Abnormal serum potassium OR potassium not on file within 6 months, Serum creatinine not on file within 6 months and Serum sodium not on file within 6 months senior sales director Action: Defer to office. Patient needs labwork or vitals completed. Routed to office staff for outreach for appointment scheduling and labs/vitals. documented in this encounter Plan of Treatment Upcoming Encounters Date Type Department Care Team (Late st Contact Info) Description 06/28/2024 9:40 AM EST Clinical Support [facility] [address] [place] [phone] 11/19/2024 1:40 PM EDT Office Visit SEP Neurology [facility] [address] [place] [phone] Lyndsay Brewer DO [address] [place] [address] documented as of this encounter [...] hypertension Take 1 Capsule by mouth daily. 01/28/2022 10/10/2022 documented as of this encounter Care Teams Recovery Unit Operator Relationship Specialty Start Date End Date Steffanie Fulton APRN [address] [place] [address] PCP - General Nurse Practitioner 07/26/21 documented as of this encounter
--- OUTSIDE RECORDS SUMMARY | 2024-05-29 15:37 | XMS_ITS | Encounter Summary ---
Author Organization [place] [address] Care Team Providers Care Molasses Preparer Name Role Phone Kirstin Steffanie YOLI Primary Care Provider +1- [phone] Reason for Visit * Reason Comments Medication Refill Encounter Details Date Type Department Care Team (Late st Contact Info) Description 09/01/2022 Refill [facility] [address] [place] [phone] Steffanie FultonYOLI [address] [facility] [place] [address] Medication Refill Social History Tobacco Use Types [...] FOR WHEEZING 6.7 Each 1 09/02/2022 3 documented in this encounter Plan of Treatment Upcoming Encounters Date Type Department Care Team (Late st Contact Info) Description 06/28/2024 9:40 AM EST Clinical Support [facility] [address] [phone] 11/19/2024 1:40 PM EDT Office Visit SEP Neurology [facility] [address] [place] [address] Lyndsay Brewer, DO [address] [place] [address] documented as of this encounter [...] HFA;VENTOLIN HFA) 90 mcg/actuation Inhl HFA Aerosol InhalerIndications:Encou nter for medication refill INHALE 1 TO 2 PUFFS BY MOUTH EVERY 4 HOURS NEEDED FOR WHEEZING. 05/17/2022 09/02/2022 documented as of this encounter Care Teams Molasses Preparer Relationship Specialty Start Date End Date Steffanie Fulton APRN [address] [address] PCP - General Nurse Practitioner 07/26/21 documented as of this encounter
--- OUTSIDE RECORDS SUMMARY | 2024-05-29 15:37 | XMS_ITS | Encounter Summary ---
Author Organization [place] [address] Care Team Providers Care Store Stocker Name Role Phone Steffanie Fulton APRN Primary Care Provider +1- [phone] Reason for Referral * Consultation (Routine) - Closed Specialty Diagnoses / Procedures Referred By Gus t Referred To Contact Diagnoses Moderate persistent asthma without complication Steffanie Fulton APRN [address] [place] [address] Phone: tel: fax: [facility] Care Managment [address] [place] [address] Phone: tel: Referral ID Status Reason Start Date Expiration Date Visits Re quested Visits Authorized [id number] Closed 11/17/2022 11/17/2023 99 99 Question Answer Reason for Referral Advance Care Planning - needed for appointment on 11/23/2022 Reason for Visit * Reason Onset Date Comments Medication Refill Central Patient Navigator Outreach 11/17/2022 med refill 1st Encounter Details Date Type Department Care Team (Late st Contact Info) Description 11/17/2022 Refill [facility] [address] [place] [phone] Steffanie Fulton APRN [address] [place] [address] Medication Refill; Central Patient Navigator Outreach (med refill 1st) Social History Tobacco Use Types [...] Assessment Author No 10/07/2020 8:08 AM Jane Baarjas MA * Is the person blind or [...] 10/07/2020 8:08 AM Jane Barajas MA * Because of a physical, [...] EVERY DAY AT NIGHT 30 Tablet 11/17/2022 12/19/2022 documented in this encounter Miscellaneous Notes * Addendum Note - Radha Hi RN - 11/17/2022 1:47 PM EDTAddended by: RADHA HI on: 11/17/2022 01:47 PM Modules accepted: Orders, SmartSet * Telephone Encounter - Radha Hi RN - 11/17/2022 1:45 PM EDT Patient Outreach: Care management needed Attempt Count: 1st and no contact attempted Care Gaps Addressed concrete bucket hooker: Mammogram and Care Management Referral Outcome: Care management referral placed * Telephone Encounter - Deepthi Ham - 11/17/2022 1:27 PM EDT Patient Outreach: Medication Refill Appointment 1st [facility] Attempt Count: inbound Care Gaps Addressed concrete bucket hooker: Annual Wellness Visit, Appointment and Medicare Questionnaire Outcome: Medicare Questionnaire completed, Appointment scheduled with PCP 11/23/22 and Annual Wellness Visit Scheduled 11/23/22 routing to nurse: The following patient is being referred to Care Management for evaluation. ACP service(s) are beingrequested. Reason for referral: pt would like to talk to someone at visit on 11/23/22 about setting up an ACP. * Telephone Encounter - Haylie Hummel - 11/17/2022 11:42 AM EDT Patient Outreach: Medication Refill Appointment 1st [facility] Attempt Count: 1st Care Gaps Addressed concrete bucket hooker: Annual Wellness Visit Outcome: Left message to return call at and MyChart Message Sent * Telephone Encounter - Delmy Hanna CPhT - 11/17/2022 10:40 AM EDT Montelukast Medication Refill Protocol failed due to appointment. [facility] Reason: Chart review does not show a coded diagnosis in protocol timeframe. [facility] Action: Approved 30-day supply of medication Routed to Patient Navigator team for outreach to schedule appointment. documented in this encounter Plan of Treatment Upcoming Encounters Date Type Department Care Team (Late st Contact Info) Description 06/28/2024 9:40 AM EST Clinical Support [facility] [address] [place] [phone] 11/19/2024 1:40 PM EDT Office Visit SEP Neurology [facility] [address] [place] [address] Lyndsay Brewer DO [address] [place] [address] Scheduled Referrals Name Type Priority Associated Diagnoses Orde r Schedule AMB REFERRAL TO CARE MANAGEMENT Outpatient Referral Routine Moderate persistent asthma without complication Ordered: 11/17/2022 documented as of this encounter Goals Goal [...] TABLET BY MOUTH EVERY DAY AT NIGHT 08/16/2022 11/17/2022 documented as of this encounter Care Teams Store Stocker Relationship Specialty Start Date End Date Steffanie Fulton APRN [address] [place] [address] PCP - General Nurse Practitioner 07/26/21 documented as of this encounter
--- OUTSIDE RECORDS SUMMARY | 2024-05-29 15:38 | XMS_ITS | Encounter Summary ---
Author Organization [place] [address] Care Team Providers Care Epic Willow Analyst Name Role Phone YolandaSteffanie devine APRN Primary Care Provider +1- [phone] Reason for Visit * Reason Onset Date Comments Medication Refill 05/25/2022 Encounter Details Date Type Department Care Team (Late st Contact Info) Description 05/25/2022 Refill [facility] [facility] [address] [place] [address] Steffanie Fulton APRN [address] [place] [address] Medication Refill Social History Tobacco Use Types [...] by mouth 2 times daily. 60 Tablet 5 05/25/2022 11/01/2022 documented in this encounter Plan of Treatment Upcoming Encounters Date Type Department Care Team (Late st Contact Info) Description 06/28/2024 9:40 AM EST Clinical Support [facility] [address] [place] [phone] 11/19/2024 1:40 PM EDT Office Visit [facility] [address] [place] [address] Lyndsay Brewer DO [address] [place] [address] documented as of this encounter [...] Da te losartan (COZAAR) 50 mg Oral TabletIndications:Thomas al hypertension TAKE 1 TABLET BY MOUTH TWICE A DAY Reorder 05/09/2022 05/25/2022 documented as of this encounter Care Teams Epic Willow Analyst Relationship Specialty Start Date End Date Steffanie Fulton APRN [address] [place] [address] PCP - General Nurse Practitioner 07/26/21 documented as of this encounter
--- OUTSIDE RECORDS SUMMARY | 2024-05-29 15:38 | XMS_ITS | Encounter Summary ---
Author Organization [place] [place] [address] Care Team Providers Care Bowling Floor Desk Clerk Name Role Phone Steffanie Fulton APRN Primary Care Provider +1- [phone] Reason for Visit * Reason Comments Medication Refill Encounter Details Date Type Department Care Team (Late st Contact Info) Description 05/16/2022 Refill [facility] [place] [address] [place] [phone] Ligia Wiley MD [address] [place] [address] Medication Refill Social History Tobacco Use Types [...] Jane Barajas MA documented in this encounter Miscellaneous Notes * Telephone Encounter - Sonia Alvarado CPhT - 05/17/2022 12:04 PM EST Amlodipine- Medication refill requested too soon. Refill request denied. Refills sent on 01/28/2022 with Qty: 90 and 1 refills. display card writer did not contact pharmacy. Patient notified via Genometryt (if MyChart active). documented in this encounter Plan of Treatment Upcoming Encounters Date Type Department Care Team (Late st Contact Info) Description 06/28/2024 9:40 AM EST Clinical Support [facility] [address] [place] [address] 11/19/2024 1:40 PM EDT Office Visit [facility] [address] [place] [address] Lyndsay Brewer, [address] [place] [address] documented as of this encounter [...] hypertension documented in this encounter Care Teams Bowling Floor Desk Clerk Relationship Specialty Start Date End Date Steffanie Fulton APRN [address] [place] [address] PCP - General Nurse Practitioner 07/26/21 documented as of this encounter
--- OUTSIDE RECORDS SUMMARY | 2024-05-29 15:38 | XMS_ITS | Encounter Summary ---
Author Organization [place] [address] Care Team Providers Care Blacksmith Supervisor Name Role Phone Steffanie Fulton APRN Primary Care Provider +1- [phone] Reason for Visit * Reason Comments Injections Encounter Details Date Type Department Care Team (Latest Contact Info) Description 04/25/2022 2:[address] ED[address] [facility] [place] [address] [employer] [facility] [place] [address] Milly Dasilva Flu vaccine need (Primary Dx) Social History Tobacco Use Types [...] - - Temperature 36.1 ??C (97 ??F) 04/25/2022 2:13 PM EDT Respiratory Rate - - Oxygen Saturation - - Inhaled Oxygen Concentration - - Weight - [...] Jane Barajas MA documented in this encounter Progress Notes * Milly Dasilva - 04/25/2022 2:20 PM EDT Flublok given in the left deltoid Lot# [id number] [facility] [id number] Exp 12/23/2022 documented in this encounter Plan of Treatment Upcoming Encounters Date Type Department Care Team (Late st Contact Info) Description 06/28/2024 9:40 AM EST Clinical Support [facility] [facility] [address] [facility] [address] [place] [phone] 11/19/2024 1:40 PM EDT Office Visit [facility] [address] [place] [phone] Lyndsay Brewer, DO [address] [place] [address] documented as of this encounter [...] for prophylactic vaccination and inoculation against influenza documented in this encounter Orders Immunization/Injection Count Last Ordered Date First Ordered Date FLU VACCINE QUADRIVALENT FLUBLOK (PF) 18+ 1 04/25/2022 documented in this encounter Care Teams Blacksmith Supervisor Relationship Specialty Start Date End Date Steffanie Fulton APRN [address] [facility] [address] [place] [address] PCP - General Nurse Practitioner 07/26/21 documented as of this encounter
--- OUTSIDE RECORDS SUMMARY | 2024-05-29 15:38 | XMS_ITS | Encounter Summary ---
Author Organization [place] [address] Care Team Providers Care Welcome Wagon Hostess Name Role Phone Steffanie Fulton APRN Primary Care Provider +1- [phone] Reason for Visit * Reason Onset Date Comments Medication Management 02/04/2022 paxlovid Encounter Details Date Type Department Care Team ([facility] Contact Info) Description 02/04/2022 Telephone [facility] [facility] [address] [place] [place] [address] Zainab MariangelYOLI [address] [place], [place] [phone] Medication Management (paxlovid ) Social History Tobacco Use Types Packs/Day [...] suspected to have Coronavirus/COVID-19? No / Unsure 01/20/2022 8:26 AM EDT documented as of this encounter [...] of Assessment Author No 10/07/2020 8:08 AM ADITYAT Jane Garrido MA * Because of a physical, mental or emotional condition, does this person have difficulty doing errands alone such as visiting a doctor's office or shopping? Answer Date of Assessment Author No 10/07/2020 8:08 AM ADITYAT Jane Garrido MA documented as of this encounter Mental Status * Because of a physical, mental or emotional condition, does this person have serious difficulty concentrating, remembering or making decisions? Answer Entry Date Author No 10/07/2020 8:08 AM Jane Barajas MA documented in this encounter Miscellaneous Notes * Telephone Encounter - Mariangel Lamb APRN - 02/04/2022 8:59 AM EDT Sent, Not sure why it didn't go through, Please call pt * Telephone Encounter - Marilu Oliveira - 02/04/2022 8:19 AM EDT pt was seen yesterday and states tiffanie was suppose to be called in and wasn't he would like if this could be called in documented in this encounter Plan of Treatment Upcoming Encounters Date Type Department Care Team (Late st Contact Info) Description 06/28/2024 9:40 AM EST Clinical Support [facility] [place] [facility] [address] [place] [phone] 11/19/2024 1:40 PM EDT Office Visit [facility] [address] [place] [address] Lyndsay Brewer DO [address] [place] [address] documented as of this encounter [...] Onset Date Last Indicated Resolved Time INFLUENZA 02/03/2022 02/03/2022 02/18/2022 10:1 2 PM EDT COVID-19 02/03/2022 02/03/2022 02/23/2022 10:1 2 PM EDT documented as of this encounter Care Teams Welcome Wagon Hostess Relationship Specialty Start Date End Date Steffanie Fulton APRN [address] [place] [address] PCP - General Nurse Practitioner 07/26/21 documented as of this encounter
--- OUTSIDE RECORDS SUMMARY | 2024-05-29 15:38 | XMS_ITS | Encounter Summary ---
Author Organization [facility] [place] [address] Care Team Providers Care Autoglazier Name Role Phone Steffanie Fulton APRN Primary Care Provider +1- [phone] Encounter Details Date Type Department Care Team (Latest Contact Info) Description 02/24/2022 Travel Social History Tobacco Use Types Packs/Day [...] Jane Barajas MA documented in this encounter Plan of Treatment Upcoming Encounters Date Type Department Care Team (Late st Contact Info) Description 06/28/2024 9:40 AM EST Clinical Support [facility] [place] [address] [facility] [place] [phone] 11/19/2024 1:40 PM EDT Office Visit [facility] [address] [place] [address] Lyndsay Brewer DO [address] [place] [address] documented as of this encounter [...] on filedocumented in this encounter Care Teams Autoglazier Relationship Specialty Start Date End Date Steffanie Fulton APRN [address] [place] [address] PCP - General Nurse Practitioner 07/26/21 documented as of this encounter
--- OUTSIDE RECORDS SUMMARY | 2024-05-29 15:38 | XMS_ITS | Encounter Summary ---
Author Organization [facility] [place] [address] Care Team Providers Care Cobol Developer Name Role Phone Steffanie Fulton APRN Primary Care Provider +1- [phone] Encounter Details Date Type Department Care Team (Latest Contact Info) Description 02/25/2022 Travel Social History Tobacco Use Types Packs/Day [...] suspected to have Coronavirus/COVID-19? No / Unsure 02/25/2022 7:15 AM EDT documented as of this encounter [...] Clinical Support [facility] [address] [place] [phone] 11/19/2024 1:40 PM EDT Office Visit [facility] [address] [place] [address] Lyndsay Brewer DO [address] [place] [address] documented as of this encounter Goals Goal [...] on filedocumented in this encounter Care Teams Cobol Developer Relationship Specialty Start Date End Date Steffanie Fulton APRN [address] [place] [address] PCP - General Nurse Practitioner 07/26/21 documented as of this encounter
--- OUTSIDE RECORDS SUMMARY | 2024-05-29 15:38 | XMS_ITS | Encounter Summary ---
Author Organization [place] [address] Care Team Providers Care Scale Model Maker Name Role Phone Kirstin Steffanie [place] Primary Care Provider +1- [phone] Reason for Visit * Reason Comments Medication Refill Encounter Details Date Type Department Care Team (Late st Contact Info) Description 02/03/2022 Refill [facility] [address] [place] [phone] KirstinSteffanieYOLI [address] [facility] [place] [address] Medication Refill Social History Tobacco Use Types [...] MOUTH EVERY DAY AT NIGHT 90 Tablet 02/04/2022 05/17/2022 documented in this encounter Plan of Treatment Upcoming Encounters Date Type Department Care Team (Late st Contact Info) Description 06/28/2024 9:40 AM EST Clinical Support [facility] [facility] [address] [place] [phone] 11/19/2024 1:40 PM EDT Office Visit [facility] [address] [place] [address] Lyndsay Brewer, DO [address] [place] [address] documented as of this encounter [...] TABLET BY MOUTH EVERY DAY AT NIGHT 11/04/2021 02/04/2022 documented as of this encounter Additional Health Concerns Infection Onset Date Last Indicated Resolved Time INFLUENZA 02/03/2022 02/03/2022 02/18/2022 10:1 2 PM EDT COVID-19 02/03/2022 02/03/2022 02/23/2022 10:1 2 PM EDT documented as of this encounter Care Teams Scale Model Maker Relationship Specialty Start Date End Date Steffanie Fulton APRN [address] [place] [address] PCP - General Nurse Practitioner 07/26/21 documented as of this encounter
--- OUTSIDE RECORDS SUMMARY | 2024-05-29 15:38 | XMS_ITS | Encounter Summary ---
Author Organization [facility] [place] [address] Care Team Providers Care Parts Remover Name Role Phone Steffanie Fulton APRN Primary Care Provider +1- [phone] Encounter Details Date Type Department Care Team (Latest Contact Info) Description 03/04/2022 Travel Social History Tobacco Use Types Packs/Day [...] suspected to have Coronavirus/COVID-19? No / Unsure 03/04/2022 10:15 AM EDT documented as of this encounter [...] Clinical Support [facility] [address] [place] [phone] 11/19/2024 1:40 PM EDT Office Visit [facility]rology [facility] [address] [place] [address] Lyndsay Brewer DO [address] [place] [address] documented as of this encounter Goals Goal [...] on filedocumented in this encounter Care Teams Parts Remover Relationship Specialty Start Date End Date Steffanie Fulton APRN [address] [place] [address] PCP - General Nurse Practitioner 07/26/21 documented as of this encounter
--- OUTSIDE RECORDS SUMMARY | 2024-05-29 15:38 | XMS_ITS | Encounter Summary ---
Author Organization [place] [address] Care Team Providers Care Polytechnic Teacher Name Role Phone Steffanie Fulton APRN Primary Care Provider +1- [phone] Reason for Visit * Reason Comments Medication Refill Encounter Details Date Type Department Care Team (Late st Contact Info) Description 04/19/2022 Refill [facility] Pulmonology [facility] [address] [facility] [address] [place] [address] Wally Rowe MD [address] [place], [place] [phone] Medication Refill Social History Tobacco Use Types [...] Refills Last Filled Start Date End Date SYMBICORT 160-4.5 mcg/actuation Inhl HFA Aerosol Inhaler INHALE 2 PUFFS INTO THE LUNGS TWICE A DAY 30.6 Each 2 04/19/2022 11/23/2022 documented in this encounter Plan of Treatment Upcoming Encounters Date Type Department Care Team (Late st Contact Info) Description 06/28/2024 9:40 AM EST Clinical Support [facility] [address] [place] [phone] 11/19/2024 1:40 PM EDT Office Visit [facility] Neurology [facility] [address] [place] [address] [place] Lyndsay Harrelln, DO [address] [place] [address] documented as of this encounter [...] Puffs into the lungs 2 times daily. 12/02/2021 04/19/2022 documented as of this encounter Care Teams Polytechnic Teacher Relationship Specialty Start Date End Date Steffanie Fulton APRN [address] [place] [address] PCP - General Nurse Practitioner 07/26/21 documented as of this encounter
--- OUTSIDE RECORDS SUMMARY | 2024-05-29 15:38 | XMS_ITS | Encounter Summary ---
Author Organization [place] [address] Care Team Providers Care Brush Polisher Name Role Phone Steffanie F[place]on APRN Primary Care Provider +1- [phone] Reason for Referral * Consultation (Routine) - Closed Specialty Diagnoses / Procedures Referred By Contsahtish t Referred To Contact Dermatology Diagnoses Skin lesion Ligia Wiley MD [address] [place] [address] Phone: tel: fax: [facility] [address] [place] [address] Phone: tel: fax: Referral ID Status Reason Start Date Expiration Date Visits Re quested Visits Authorized [id number] Closed 04/26/2022 04/26/2023 99 99 Question Answer Provider Options First Available Reason for Visit * Reason Comments Skin Condition Encounter Details Date Type Department Care Team (Late st Contact Info) Description 04/26/2022 3:15 PM EDT Office Visit [facility] [address] [place] [address] Ligia Wiley MD [address] [place] [address] Skin lesion (Primary Dx); Patient requests alternate treatment Social History Tobacco Use Types Packs/Day Years [...] Reading Time Taken Comments Blood Pressure 132/80 04/26/2022 2:57 PM EDT Pulse 80 04/26/2022 2:57 PM EDT Temperature 37.2 ??C (98.9 ??F) 04/26/2022 2:57 PM ED T Respiratory Rate - - Oxygen Saturation 98% 04/26/2022 2:57 PM EDT Inhaled Oxygen Concentration - - Weight 95.3 kg (210 lb) 04/26/2022 2:57 PM EDT Height 170.2 cm (5' 7 ) 04/26/2022 2:57 PM EDT Body Mass Index 32.89 04/26/2022 2:57 PM EDT documented in this encounter Functional [...] documented in this encounter Progress Notes * Ligia Wiley MD - 04/26/2022 3:15 PM EDT Images from the original note were not included. Vitals: 04/26/22 1457 BP: 132/80 Pulse: 80 Temp: 98.9 ??F (37.2 ??C) SpO2: 98% Weight: 210 lb (95.3 kg) Height: 5' 7 (1.702 m) SUBJECTIVE: Chief Complaint Patient presents with ??? Skin Condition HPI: Pt has a small bump on his upper left arm x few months. Says it is itchy. No discharge or pain. No changes in color. Pt says he is in the sun a lot. States he has a small on on the left side of forehead as well. Patient also requesting 10 days off of work. His grandson needs an MRI of his brain. They will not do this MRI if he has been sick due to anesthesia. Discussed we cannot provide this Review of Systems Constitutional: Negative for fever. HENT: Negative for congestion, rhinorrhea and sinus pressure. Respiratory: Negative for cough and shortness of breath. Cardiovascular: Negative for chest pain. Gastrointestinal: Negative for abdominal pain, constipation, diarrhea, nausea and vomiting. Endocrine: Negative for polydipsia, polyphagia and polyuria. Genitourinary: Negative for dysuria. Musculoskeletal: Negative for back pain. Skin: Negative for rash. Neurological: Negative for seizures and headaches. Psychiatric/Behavioral: Negative for sleep disturbance. OBJECTIVE: Physical Exam Constitutional: General: He is not in acute distress. Appearance: He is well-developed and well-nourished. HENT: Head: Normocephalic and atraumatic. Eyes: Conjunctiva/sclera: Conjunctivae normal. Pupils: Pupils are equal, round, and reactive to light. Musculoskeletal: General: Normal range of motion. Cervical back: Normal range of motion. Skin: General: Skin is warm and dry. Findings: No rash. Comments: Scab type skin lesion on the left worship Neurological: Mental Status: He is alert. Cranial Nerves: No cranial nerve deficit. Psychiatric: Mood and Affect: Mood and affect normal. Behavior: Behavior normal. 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 documented in this encounter Plan of Treatment Upcoming Encounters Date Type Department Care Team (Late st Contact Info) Description 06/28/2024 9:40 AM EST Clinical Support [facility] [address] [place] [address] 11/19/2024 1:40 PM EDT Office Visit [facility] Neurology [facility] [address] [place] [phone] Lyndsay Brewer DO [address] [facility] [address] [place] [address] Scheduled Referrals Name Type Priority Associated Diagnoses Order Schedule AMB REFERRAL TO DERMATOLOGY Outpatient Referral Routine Skin lesion Ordered: 04/26/2022 documented as of this encounter Goals Goal Patient Goal Type Associated Problems Recent Progress Patient-Stated? Author Blood Pressure < 140/90 Blood Pressure 134/84(2023 1:16 PM EST) No Yana Choi RMA Eat better, exercise, reach an ideal body weight General No Yana Choi RMA Stay Tobacco Free Lifestyle No Yana Choi RMA documented as of this encounter Visit Diagnoses Diagnosis Skin lesion- Primary Unspecified disorder of skin and subcutaneous tissue Patient requests alternate treatment documented in this encounter Discontinued Medications Medication Sig Discontinue Reason Start Date End Da te amoxicillin-clavulanate (AUGMENTIN) 875-125 mg Oral TabletIndications:Strep pharyngitis Take 1 Tablet by mouth 2 times daily. DELETE- Entered in Error 01/28/2022 04/26/2022 documented as of this encounter Care Teams Brush Polisher Relationship Specialty Start Date End Date Steffanie Fulton APRN [address] [place] [address] PCP - General Nurse Practitioner 07/26/21 documented as of this encounter
--- OUTSIDE RECORDS SUMMARY | 2024-05-29 15:38 | XMS_ITS | Encounter Summary ---
Author Organization [place] [address] Care Team Providers Care Biomedical Specialist Name Role Phone Steffanie Fulton APRN Primary Care Provider +1- [phone] Reason for Visit * Reason Onset Date Comments ED Follow-Up Call 03/07/2022 Encounter Details Date Type Department Care Team (Late st Contact Info) Description 03/07/2022 Patient Outreach [facility] [address] [place] [id number] Milly Hurtado, PRODUCTION MANAGER Follow-Up Call Social History Tobacco Use Types Packs/Day Years [...] in this encounter Progress Notes * Milly Hurtado RN - 03/07/2022 10:09 AM EDT Emergency Department (ED) Follow-Up - General visit 1. Spoke with patient 2. Tell me what events led up to you going to the Emergency Department? o Ripped hand open on nail 3. Have your symptoms improved? o Yes 4. Do you understand the discharge instructions provided by the Emergency Department? o Yes 5. What medications were prescribed &/or changed during your visit? o keflex o Did scrap picker 6. Have you had challenges affording your medications in the last 12 months? o No 7. Appointment follow-up: o Discharge summary recommends a primary care follow-up. Patient states they will contact office toschedule follow-up appointment. 8. Education provided regarding how to contact physician through: o Provider office number, [place], Nurse Now Line ( ) and Provider On-Call Any other questions or concerns we can help you with today? denies documented in this encounter Plan of Treatment Upcoming Encounters Date Type Department Care Team (Late st Contact Info) Description 06/28/2024 9:40 AM EST Clinical Support [facility] [place] [facility] [address] [place] [phone] 11/19/2024 1:40 PM EDT Office Visit [facility] Neurology [facility] [address] [place] [phone] Lyndsay Brewer DO [address] [place] [address] documented as of this encounter [...] on filedocumented in this encounter Care Teams Biomedical Specialist Relationship Specialty Start Date End Date Steffanie Fulton APRN [address] [place] [phone] PCP - General Nurse Practitioner 07/26/21 documented as of this encounter
--- OUTSIDE RECORDS SUMMARY | 2024-05-29 15:38 | XMS_ITS | Encounter Summary ---
Author Organization [place] [address] Care Team Providers Care Nematologist Name Role Phone Steffanie Fulton APRN Primary Care Provider [phone]- [phone] Reason for Visit * Reason Comments URI Encounter Details Date Type Department Care Team (Late st Contact Info) Description 05/27/2022 10:15 AM EST Office Visit [facility] [address] [place] [address] Ligia Wiley MD [address] [place] [address] Influenza B (Primary Dx); Cough, unspecified type; Ceruminosis, left Social History Tobacco Use Types Packs/Day [...] Sign Reading Time Taken Comments Blood Pressure 112/62 05/27/2022 10:02 AM EST Pulse 88 05/27/2022 10:02 AM EST Temperature 37.1 ??C (98.7 ??F) 05/27/2022 10:[address] Respiratory Rate - - Oxygen Saturation 97% 05/27/2022 10:02 AM EST Inhaled Oxygen Concentration - - Weight 95.3 kg (210 lb) 05/27/2022 10:02 AM EST Height 170.2 cm (5' 7 ) 05/27/2022 10:02 AM EST Body Mass Index 32.89 05/27/2022 10:02 AM EST documented in this [...] Entry Date Author No 10/07/2020 8:08 AM Nikki Barajas MA documented in this encounter Ordered Prescriptions Prescription Sig Dispense Quantity Refills Last Filled Start Date End Date oseltamivir (TAMIFLU) 75 mg Oral CapsuleIndications :Influenza B Take 1 Capsule by mouth 2 times daily for 5 days. 10 Capsule 05/27/2022 2 documented in this encounter Progress Notes * Ligia Wiley MD - 05/27/2022 10:15 AM EST Vitals: 05/27/22 1002 BP: 112/62 Pulse: 88 Temp: 98.7 ??F (37.1 ??C) SpO2: 97% Weight: 210 lb (95.3 kg) Height: 5' 7 (1.702 m) SUBJECTIVE: Chief Complaint Patient presents with ??? URI HPI: URI/Sinus symptoms: ?? complains of congestion, sore throat, productive cough, myalgias, headache and chills for 3 days. ?? Associated symptoms include fatigue. ?? Symptom severity is described as Moderate and are worsening. ?? What treatments have you tried at home? Tylenol ?? Are home treatments impacting your symptoms at all? A little. ?? Do you get recurrent or seasonal symptoms multiple times per year? no ?? Do you have any history of lung disease, asthma, or recurrent allergies? no ?? The Patient does not smoke cigarettes. Ceruminosis is noted. Wax is removed by syringing and manual debridement. Instructions for home care to prevent wax buildup are given. Review of Systems Constitutional: Positive for fatigue. Negative for chills and fever. HENT: Positive for congestion, rhinorrhea and sinus pressure. Respiratory: Positive for cough. Negative for shortness of breath and wheezing. Cardiovascular: Negative for chest pain. Gastrointestinal: Negative for abdominal pain, constipation, diarrhea, nausea and vomiting. Skin: Negative for rash. Neurological: Negative for dizziness, light-headedness and headaches. OBJECTIVE: Physical Exam Constitutional: General: He is not in acute distress. Appearance: He is well-developed and well-nourished. HENT: Head: Normocephalic and atraumatic. Eyes: Conjunctiva/sclera: Conjunctivae normal. Pupils: Pupils are equal, round, and reactive to light. Cardiovascular: Rate and Rhythm: Normal rate and regular rhythm. Heart sounds: Normal heart sounds. No murmur heard. Pulmonary: Effort: Pulmonary effort is normal. Breath sounds: Normal breath sounds. No wheezing. Musculoskeletal: General: Normal range of motion. Cervical back: Normal range of motion. Skin: General: Skin is warm and dry. Findings: No rash. Neurological: Mental Status: He is alert. Cranial Nerves: No cranial nerve deficit. Psychiatric: Mood and Affect: Mood and affect normal. Behavior: Behavior normal. Assessment Diagnoses and all orders for this visit: Influenza B - POCT JOSIE INFLUENZA A/B - oseltamivir (TAMIFLU) 75 mg Oral Capsule; Take 1 Capsule by mouth 2 times daily for 5 days. Dispense: 10 Capsule; Refill: 0 Cough, unspecified type - POCT JOSIE SARS ANTIGEN - POCT RAPID STREP A Ceruminosis, left - CA REMOVAL IMPACTED CERUMEN IRRIGATION/LVG UNILAT documented in this encounter Plan of Treatment Upcoming Encounters Date Type Department Care Team (Late st Contact Info) Description 06/28/2024 9:40 AM EST Clinical Support [facility] [address] [place] [phone] 11/19/2024 1:40 PM EDT Office Visit [facility] Neurology [facility] [address] [place] [address] Lyndsay Brewer DO [address] [place] [address] Scheduled Orders Name Type Priority Associated Diagnoses Orde r Schedule CA REMOVAL IMPACTED CERUMEN IRRIGATION/LVG UNILAT CA Charge Routine Ceruminosis, left Ordered: 05/27/2022 documented as of this encounter Goals Goal [...] Diagnosis Comments POCT JOSIE SARS ANTIGEN Routine 05/27/2022 11:35 AM EST Cough, unspecified type POCT RAPID STREP A Routine 05/27/2022 11 :35 AM EST Cough, unspecified type POCT JOSIE INFLUENZA A/B Routine 05/27/2022 9:55 AM EST Influenza B documented in this encounter Results * POCT RAPID STREP A (05/27/2022 11:35 AM EST) Strep A Ag None Detected None Detected Pos/Neg SEP OFFICE Lot Number SEP OFFICE Expiration Date SEP OFFICE SeriAl # SEP OFFICE Control Line Yes YES/NO SEP OFFICE 05/27/2022 11:3 5 AM EST Ligia Wiley MD POINT OF CARE TEST ORDERABLES Final Result Performing Organization Address [facility] de Phone Number SEP OFFICE * POCT JOSIE SARS ANTIGEN (05/27/2022 11:35 AM EST) SARS Antigen Negative Negative SEP OFFICE Lot Number SEP OFFICE Expiration Date SEP OFFICE SeriAl # SEP OFFICE Control Line Yes YES/NO SEP OFFICE 05/27/2022 11:3 5 AM EST us Ligia Wiley MD POINT OF CARE TEST ORDERABLES Final Result Performing Organization Address [facility] Co de Phone Number SEP OFFICE * (ABNORMAL) POCT JOSIE INFLUENZA A/B (05/27/2022 9:55 AM EST) Influenza A Antigen Negative Negative 05/27/2022 9:58 AM EST [facility]P [facility] Influenza B Antigen Positive(A) Negative 05/27/2022 9:58 AM EST ANTOLIN SNEED Swab SPECIMEN FROM NASOPHARYNGEAL STRUCTURE / Unknown 05/27/2022 9:55 AM EST 05/27/2022 9:58 AM EST Ligia Wiley MD POINT OF CARE TEST ORDERABLES Final Result ANTOLIN SNEED [address] [place] [phone] documented in this encounter Visit Diagnoses Diagnosis Influenza B- Primary Influenza with other respiratory manifestations Cough, unspecified type Ceruminosis, left documented in this encounter Additional Health Concerns Infection Onset Date Last Indicated Resolved Time INFLUENZA 05/27/2022 05/27/2022 06/11/2022 10:1 2 PM EST documented as of this encounter Care Teams Nematologist Relationship Specialty Start Date End Date Steffanie Fulton APRN [address] [place] [id number] PCP - General Nurse Practitioner 07/26/21 documented as of this encounter
--- OUTSIDE RECORDS SUMMARY | 2024-05-29 15:38 | XMS_ITS | Encounter Summary ---
Author Organization [place] [address] Care Team Providers Care Supervisor Riprap Placing Name Role Phone Kirstin Steffanie KENT Primary Care Provider [phone]- [phone] Reason for Visit * Reason Comments Medication Refill Encounter Details Date Type Department Care Team (Late st Contact Info) Description 05/16/2022 Refill [facility] [address] [place] [id number] Kirstin SteffanieYOLI [address] [facility] [place] [address] Medication Refill Social History Tobacco Use Types [...] 10/07/2020 8:08 AM EDJane Guzman MA * Is the person blind or [...] MOUTH EVERY DAY AT NIGHT 90 Tablet 05/17/2022 08/16/2022 albuterol (PROVENTIL HFA;VENTOLIN HFA) 90 mcg/actuation Inhl HFA Aerosol InhalerIndications :Encounter for medication refill INHALE 1 TO 2 PUFFS BY MOUTH EVERY 4 HOURS NEEDED FOR WHEEZING. 6.7 Each 1 05/17/2022 09/02/2022 documented in this encounter Miscellaneous Notes * Telephone Encounter - Sonia Alvarado CPhT - 05/17/2022 11:26 AM EST Albuterol- Medication Refill Protocol not available for this medication. Routed to office staff. Montelukast- Medication Refill Protocol not available for this medication. Routed to office staff. documented in this encounter Plan of Treatment Upcoming Encounters Date Type Department Care Team (Late st Contact Info) Description 06/28/2024 9:40 AM EST Clinical Support ANTOLIN [place] [address] [place] [address] 11/19/2024 1:40 PM EDT Office Visit [facility] Neurology [facility] [address] [place] [address] Lyndsay Brewer DO [address] [place] [address] documented as of this encounter [...] for medication refill Issue of repeat prescriptions Moderate persistent asthma without complication Unspecified asthma documented in this encounter Discontinued Medications Medication Sig Discontinue Reason Start Date End Da te albuterol (PROVENTIL HFA;VENTOLIN HFA) 90 mcg/actuation Inhl HFA Aerosol InhalerIndications:Encoun ter for medication refill INHALE 1 TO 2 PUFFS EVERY 4 HOURS NEEDED FOR WHEEZING. 11/04/2021 05/17/2022 montelukast (SINGULAIR) 10 mg Oral TabletIndications:Moderat e persistent asthma without complication TAKE 1 TABLET BY MOUTH EVERY DAY AT NIGHT 02/04/2022 05/17/2022 documented as of this encounter Care Teams Supervisor Riprap Placing Relationship Specialty Start Date End Date Steffanie Fulton APRN [address] [place] [id number] PCP - General Nurse Practitioner 07/26/21 documented as of this encounter
--- OUTSIDE RECORDS SUMMARY | 2024-05-29 15:38 | XMS_ITS | Encounter Summary ---
Author Organization [place] [address] Care Team Providers Care Olive Grader Name Role Phone Steffanie Fulton APRN Primary Care Provider +1- [phone] Reason for Visit * Reason Comments Extremity Laceration tearing wall down a nd caught right palm with adela nail last 2008?. Encounter Details Date Type Department Care Team (Late st Contact Info) Description 03/04/2022 10:34 AM EDT - 03/04/2022 3:43 PM EDT Emergency [facility] Emergency [address] [place], [place] [id number] Rigo De Leon MD [address] [place] [id number] Laceration of right hand without foreign body, initial encounter (Primary Dx) Discharge Disposition: Home [...] Sign Reading Time Taken Comments Blood Pressure 116/80 03/04/2022 3:41 PM EDT Pulse 68 03/04/2022 3:41 PM EDT Temperature 36.9 ??C (98.4 ??F) 03/04/2022 1 0:17 AM EDT Respiratory Rate 18 03/04/2022 3:41 PM EDT Oxygen Saturation 98% 03/04/2022 3:41 PM EDT Inhaled Oxygen Concentration - - Weight 96.1 kg (211 lb 14.4 oz) 022 10:17 AM EDT Height - - Body Mass Index 33.19 02/03/2022 1:58 PM EDT documented in this encounter Functional [...] Jane Garrido MA documented in this encounter Discharge Instructions * Discharge Instructions* Ella Morley MD - 03/04/2022 2:36 PM EDT Apply antibiotic ointment to your sutures twice daily. Keep sutures covered for the first 48-72 hours, then let open to air. Please cover sutures when exposed to dirty conditions. Have sutures removed in 10 days by your primary care physician. Take [id number]-[id number] Tylenol or ibuprofen as needed for pain. If prescribed a stronger pain medication, take that as needed per the instructions for severe pain not controlled with the tylenol or ibuprofen alone. If taking narcotic pain medications, please avoid operating machinery or driving, performing tasks requiring concentration, or potentially dangerous activities of living as you may place yourself or others at risk of harm given the side effects of such medications. Return to the emergency room for any concerns, including signs of infection at your suture sites (which can include increased redness, warmth, swelling, pain or an infectious looking discharge from your suture site). Take entire course of antibiotics if they were prescribed to you. * Attachments The following attachments cannot be sent through Care Everywhere. * Laceration Repair With Stitches ED (Guyanese) * Wound Care Discharge Instructions (Guyanese) documented in this encounter Medications at Time of Discharge betamethasone dipropionate (DIPROLENE) 0.05 % Top OintmentIndications :Psoriasis APPLY TO AFFECTED AREA EVERY DAY 15 g 2 11/04/2021 fluticasone propionate (FLONASE) 50 mcg/actuation Nasl Eagle, SuspensionIndicatio ns:Moderate persistent asthma, uncomplicated SPRAY 1 SPRAY INTO EACH NOSTRIL EVERY DAY 32 mL 1 11/04/2021 Nebulizer Accessories (ALL FLOW 4000 KIT) [facility] Formulary equivalent 1 Each 0 06/27/2012 albuterol (PROVENTIL HFA;VENTOLIN HFA) 90 mcg/actuation Inhl HFA Aerosol InhalerIndications: Encounter for medication refill INHALE 1 TO 2 PUFFS EVERY 4 HOURS NEEDED FOR WHEEZING. 6.7 Each 1 11/04/2021 05/17/20 22 amLODIPine (NORVASC) 5 mg Oral TabletIndications:E ssential hypertension Take 1 Tablet by mouth daily. 90 Tablet 1 01/28/2022 07/13/19 23 budesonide-formoter oL (SYMBICORT) 160-4.5 mcg/actuation Inhl HFA Aerosol Inhaler Inhale 2 Puffs into the lungs 2 times daily. 1 Each 6 12/02/2021 04/19/20 22 celecoxib (CELEBREX) 200 mg Oral CapsuleIndications: Generalized osteoarthritis of multiple sites Take 1 Capsule by mouth 2 times daily. 60 Capsule 11 01/28/2022 02/22/20 23 cephALEXin (KEFLEX) 500 mg Oral Capsule Take 1 Capsule by mouth 4 times daily for 7 days. 28 Capsule 03/04/2022 03/11/20 22 hydroCHLOROthiazide (MICROZIDE) 12.5 mg Oral CapsuleIndications: Essential hypertension Take 1 Capsule by mouth daily. 90 Capsule 1 01/28/2022 10/11/19 23 losartan (COZAAR) 50 mg Oral TabletIndications:E ssential hypertension TAKE 1 TABLET BY MOUTH TWICE A DAY 180 Tablet 02/07/2022 05/09/20 22 montelukast (SINGULAIR) 10 mg Oral TabletIndications:M oderate persistent asthma without complication TAKE 1 TABLET BY MOUTH EVERY DAY AT NIGHT 90 Tablet 02/04/2022 05/17/20 22 tadalafiL (CIALIS) 5 mg Oral TabletIndications:B PH without urinary obstruction TAKE 1 TAB BY MOUTH NEEDED. FOR ERECTILE DYSFUNCTION (NOT COVERED) 90 Tablet 2 10/18/2021 07/01/19 23 tamsulosin (FLOMAX) 0.4 mg Oral CapsuleIndications: BPH without urinary obstruction TAKE 1 CAPSULE BY MOUTH EVERY DAY AT NIGHT 90 Capsule 1 11/18/2021 08/15/19 23 documented as of this encounter Ordered Prescriptions Prescription Sig Dispense Quantity Refills Last Filled Start Date End Date cephALEXin (KEFLEX) 500 mg Oral Capsule Take 1 Capsule by mouth 4 times daily for 7 days. 28 Capsule 03/04/2022 2 documented in this encounter Discharge Disposition Disposition Code Departure Means Destination Comment s Home or Self [facility] documented in this encounter ED Notes * Ella Morley MD - 03/04/2022 10:14 AM EDT Images from the original note were not included. Chief Complaint Patient presents with ??? Extremity Laceration tearing wall down and caught right palm with adela nail last Tdap - 2008?. Forrest is a 56yo M with uncertain vaccination hx who presents to ED after cutting his hand on a adela nail. Pt is renovating his house and was tearing down drywall with his hands when he cut his R palm on a adela nail. Laceration over the R thenar eminence. Pt immediately washed the lac with water, help pressure for 7-8 minutes and achieved hemostasis. Pt does not report much pain, denies numbness or tingling, and reports full ROM of thumb. Regarding vaccination hx, pt had an up to date Tdap in 2019 (confirmed on Epic). Pt would like to have stitches and/or skin glue applied bc I plan to go right back to work on the house and I don't have time to stop. Patient History Allergies Allergen Reactions ??? Abilify [Aripiprazole] Other (See Comments) convulsions ??? Unable To Assess Patient does not take any narcotic medications Home Medications: Prior to Admission medications Medication Sig Start Date End Date Taking? Authorizing Provider losartan (COZAAR) 50 mg Oral Tablet TAKE 1 TABLET BY MOUTH TWICE A DAY 02/07/22 Steffanie Fulton APRN albuterol (PROVENTIL HFA;VENTOLIN HFA) 90 mcg/actuation Inhl HFA Aerosol Inhaler INHALE 1 TO 2 PUFFS EVERY 4 HOURS NEEDED FOR WHEEZING. 11/04/21 Steffanie Fulton APRN albuterol (PROVENTIL) 2.5 mg /3 mL (0.083 %) Inhl Solution for Nebulization Take 3 mL by nebulization every 4 hours as needed for Wheezing. 10/19/20 Michelle Garrido APRN amLODIPine (NORVASC) 5 mg Oral Tablet TAKE 1 TABLET BY MOUTH EVERY DAY 01/28/22 Marcela De Leon MD amLODIPine (NORVASC) 5 mg Oral Tablet Take 1 Tablet by mouth daily. 01/28/22 Ligia Wiley MD amoxicillin-clavulanate (AUGMENTIN) 875-125 mg Oral Tablet Take 1 Tablet by mouth 2 times daily. 01/28/22 Ligia Wiley MD atorvastatin (LIPITOR) 40 mg Oral Tablet Take 1 Tablet by mouth nightly. 11/16/21 Federico Camacho MD betamethasone dipropionate (DIPROLENE) 0.05 % Top Ointment APPLY TO AFFECTED AREA EVERY DAY 11/04/21Marcela De Leon MD budesonide-formoteroL (SYMBICORT) 160-4.5 mcg/actuation Inhl HFA Aerosol Inhaler Inhale 2 Puffs into the lungs 2 times daily. 12/02/21 Wally Rowe MD celecoxib (CELEBREX) 200 mg Oral Capsule Take 1 Capsule by mouth 2 times daily. 01/28/22 Ligia Wiley MD cephALEXin (KEFLEX) 500 mg Oral Capsule Take 1 Capsule by mouth 4 times daily for 7 days. 03/04/22 03/11/22 Rigo De Leon MD colestipoL (COLESTID) 1 gram Oral Tablet TAKE 1 TABLET BY MOUTH 2 TIMES DAILY. NEEDS AN APPOINTMENT12/06/21 Michael Mckeon MD dextromethorphan-guaiFENesin (MUCINEX DM) 30-600 mg Oral Tablet Sustained Release 12 hr Take 1 Tablet by mouth every 12 hours. 02/03/22 Mariangel Lamb APRN diclofenac (VOLTAREN) 1 % Top Gel APPLY 2 GRAMS TOPICALLY 4 TIMES DAILY DIRECTED. 08/16/21 Marcela De Leon MD fluticasone propionate (FLONASE) 50 mcg/actuation Nasl Eagle, Suspension SPRAY 1 SPRAY INTO EACH NOSTRIL EVERY DAY Patient not taking: Reported on 02/03/2022 11/04/21 Marcela De Leon MD guaiFENesin (MUCINEX) 600 mg Oral Tablet Extended Release 12hr Take 1 Tablet by mouth 2 times dailyas needed for Congestion (thick secretions). Patient not taking: Reported on 02/03/2022 12/14/21 Ligia Wiley MD hydroCHLOROthiazide (MICROZIDE) 12.5 mg Oral Capsule Take 1 Capsule by mouth daily. 01/28/22 Ligia Wiley MD montelukast (SINGULAIR) 10 mg Oral Tablet TAKE 1 TABLET BY MOUTH EVERY DAY AT NIGHT 02/04/22 Steffanie Fulton APRN Nebulizer Accessories (ALL FLOW 4000 KIT) [facility] Formulary equivalent 06/27/12 Carola Arcos MD tadalafiL (CIALIS) 5 mg Oral Tablet TAKE 1 TAB BY MOUTH NEEDED. FOR ERECTILE DYSFUNCTION (NOT COVERED) 10/18/21 Steffanie Fulton APRN tamsulosin (FLOMAX) 0.4 mg Oral Capsule TAKE 1 CAPSULE BY MOUTH EVERY DAY AT NIGHT 11/18/21 Steffanie Fulton APRN Past Medical History: Past Medical History: Diagnosis Date ??? Arthritis ??? Asthma 06/02/2010 ??? Bipolar affective (HCC) ??? Blood transfusion ??? EPHRAIM (generalized anxiety disorder) ??? Heart attack (HCC) ??? Heroin abuse (HCC) Quit August ??? Hypertension ??? IBS (irritable bowel syndrome) ??? Opiate dependence (HCC) Remission x 5 years ??? Pneumonia ??? Pneumothorax Social History: reports that he has never smoked. His smokeless tobacco use includes snuff. He reports that he does not drink alcohol and does not use drugs. E-Cigarettes (such as Vapes or Juul) ??? E-Cigarette Use Never User Family History: Family History Problem Relation Age of Onset ??? Diabetes Mother ??? Heart Disease Mother ??? High Blood Pressure Mother ??? High Cholesterol Mother ??? Cancer Father 40 stomach ??? Other (Diabetes living) Sister 1 sister passed ??? No Known Problems Brother ??? Diabetes Maternal Grandmother ??? No Known Problems Maternal Grandfather ??? Cancer Paternal Grandmother Surgical History: Past Surgical History: Procedure Laterality Date ??? [...] REVISION-ANTERIOR ; Surgeon: Augie Ramires MD; Location: [facility] MAIN OR; Service: Orthopedics ??? KNEE SURGERY LEFT ACL RECONSTRUCTION ??? KNEE SURGERY LEFT ARTHROSCOPIES IRRAGATION X 7 FOR INFECTION ??? KNEE SURGERY RIGHT ARTHROSCOPIC MENICUS REPAIR ??? SHOULDER ARTHROSCOPY Right 11/29/2019 RIGHT SHOULDER ARTHROSCOPIC ROTATOR CUFF REPAIR DECOMPRESSION ACROMIOPLASTY, ACROMIOCLAVICULAR JOINT EXCISION; Surgeon: Kenny Loja MD; Location: [facility]; Service: Orthopedics ??? TOTAL HIP ARTHROPLASTY Left 2009 Review of Systems Review of Systems Constitutional: Negative for chills and fever. Physical Exam Blood pressure 110/72, pulse 82, temperature 98.4 ??F (36.9 ??C), temperature source Oral, resp. rate 16, weight 211 lb 14.4 oz (96.1 kg), SpO2 96 %. Physical Exam Constitutional: General: He is not in acute distress. Appearance: Normal appearance. Skin: Comments: V-shaped 1.5 cm shallow laceration over the R thenar eminence, no tendinous or osseus visualization, hemostatic. Neurological: Mental Status: He is alert. Procedures A time-out was completed verifying correct patient, procedure, site, positioning, and special equipment. The wound was irrigated with copious amounts of room-temperature normal saline. The patient???s wound was prepped with povidone-iodine and the procedure site was draped with sterile towels. 1% li docaine with epinephrine and sodium bicarbonate was locally infiltrated providing adequate anesthesia. The wound was subsequently explored; no foreign bodies, tendon injuries or vascular injuries were noted. The skin was closed with 4-0 nylon/polypropylene horizontal mattress stitch and simple interrupted sutures. There was excellent reapproximation of the wound edges. Bleeding controlled. The patient tolerated the procedure well. Complications: No immediate complications. Radiology/EKG/Labs: XR HAND RIGHT PA LATERAL AND OBLIQUE Result Date: 03/04/2022 XR HAND RIGHT PA LATERAL AND OBLIQUE, 03/04/2022 12:00 PM CLINICAL HISTORY: - EXTREMITY LACERATION COMPARISON: None. PROCEDURE COMMENTS: XR HAND RIGHT PA LATERAL AND OBLIQUE FINDINGS: There is no fracture or traumatic malalignment. No radiopaque foreign body. There is severe osteophyte arthritis in the first CMC joint.. No periostitis. No acute bony abnormality of the hand or radiopaque foreign body. Severe first CMC osteoarthritic. - Note: Radiology results need to be interpreted within a comprehensive clinical context. If you have questions about the radiology report, please contact the office of the ordering clinician. ED Course: Appropriate laboratory and radiology studies reviewed Pt was seen and evaluated for the above complaint. Given up to date vaccination status and clean wound, no tetanus toxoid or Ig indicated at this time. XR revealed no radiopaque foreign body. Would was irrigated and closed via primary intention under local anesthesia. Pt discharged with Keflex prophylaxis for 7 days and wrist splint to immobilize thumb. Pt given instructions for wrist splint use and return precautions if any digits become red, swollen, tender, or if pt develops fever. Pt agreesand feels ready for DC. ED Clinical Impression: R palm laceration Critical Care time N/A Condition at Discharge/Transfer from Department: Stable This chart was completed using voice recognition technology and may contain unintended errors Ella Morley MD Resident 03/04/22 2949 Cosigned by Rigo De Leon MD at 03/04/2022 3:34 PM EDT Associated attestation - Rigo De Leon MD - 03/04/2022 3:34 PM EDT EMERGENCY DEPARTMENT SUPERVISING PHYSICIAN NOTE I have seen this patient & have reviewed history and findings with the resident physician, as well as provided direct personal supervision as needed. I was present for bennett portions of procedures performed. I concur with their assessment and plans as recorded. I've participated in medical management, monitoring, and treatment of this patient with the resident physician. I have reviewed document ation, test results, and laboratory results in the interim. Care plan has been developed collaboratively. Zuhair Whitlock is a 56 y.o. year old male here for Extremity Laceration (tearing wall down andcaught right palm with adela nail last Tdap - 2008?. ) . Patient with approximately 2 to 2.5 cm laceration semilunar fashion to the right dominant hand. Injury occurred on a adela nail while tearing down drywall and remodeling at home. Patient bleeding is well controlled. Patient was uncertain of last tetanus though upon review last was provided as a Tdap in 2019. Patient denies any other injuries or concerns. No recent illness. ED COURSE & MEDICAL DECISION MAKING Pertinent Labs & Imaging studies reviewed. (See chart for details) XR HAND RIGHT PA LATERAL AND OBLIQUE Final Result No acute bony abnormality of the hand or radiopaque foreign body. Severe first CMC osteoarthritic. - Note: Radiology results need to be interpreted within a comprehensive clinical context. If you have questions about the radiology report, please contact the office of the ordering clinician. Labs Reviewed - No data to display Orders Placed This Encounter Procedures X-ray hand right PA lateral and oblique Cleanse Wound ED DME WRIST BRACE WITH ABD THUMB Reason for Wrist Brace with ABD Thumb: Other (comment); Other Reason: Laceration at base of right thumb; Which side? Right Medications Administered Medications bacitracin ointment ( Topical Given by Other 03/04/22 5814) lidocaine-EPINEPHrine 1 %-1:100,000 injection 1 mL (1 mL Infiltration Given by Other 03/04/22 1245) Prescriptions @ discharge New Prescriptions CEPHALEXIN (KEFLEX) 500 MG ORAL CAPSULE Take 1 Capsule by mouth 4 times daily for 7 days. Imaging was reassuring. No foreign body. Patient's wound was irrigated and cleansed. Wound was closed in the fashion as outlined above in the procedure note by the resident. I was available throughout the procedure for consultation and was present for all critical components in care. Patient will be placed on Keflex prophylactically. Declined anything for pain. May use ibuprofen or Tylenol as needed. Precautions were given as to signs or symptoms that may suggest infection or need to return to the ER for further evaluation or treatment. He was comfortable with this plan. He was provided thumbspica splint to assist with immobilizing the area of repair due to concerns for possible strain across the suture site without this in place. Patient will follow-up in approximately 7 to 10 days for suture removal. FINAL IMPRESSION 1. Laceration of right hand without foreign body, initial encounter Condition at Discharge/Transfer from Department: Stable In cases where narcotics are prescribed, DENZEL report was obtained, reviewed, and made part of record. After examining available information, and risks of prescribing or dispensing controlled substances was explained to the patient (including non-treatment or other treatment), it is considered medically appropriate to administer narcotics as prescribed. This chart was completed using voice recognition technology and may contain unintended errors This chart was completed using voice recognition technology and may contain unintended errors documented in this encounter Plan of Treatment Upcoming Encounters Date Type Department Care Team (Late st Contact Info) Description 06/28/2024 9:40 AM EST Clinical Support [facility] [address] [place] [phone] 11/19/2024 1:40 PM EDT Office Visit [facility] [address] [place] [address] Lyndsay Brewer DO [address] [place] [address] documented as of this encounter [...] Name Priority Date/Time Associated Diagnosis Comments XR HAND RIGHT PA LATERAL AND OBLIQUE EULOGIO 03/04/2022 12:00 PM EDT documented in this encounter Results * XR HAND RIGHT PA LATERAL AND OBLIQUE (03/04/2022 12:00 PM EDT) Anatomical Region Laterality Modality Hand Radiographic Pauly ging 03/04/2022 12:0 0 PM EDT Impressions 03/04/2022 12:18 PM EDT No acute bony abnormality of the hand or radiopaque foreign body. Severe first CMC osteoarthritic. - Note: Radiology results need to be interpreted within a comprehensive clinical context. ??If you have questions about the radiology report, please contact the office of the ordering clinician. Narrative 03/04/2022 12:18 PM EDT XR HAND RIGHT PA LATERAL AND OBLIQUE, ??03/04/2022 12:00 PM CLINICAL HISTORY: ??-EXTREMITY LACERATION COMPARISON: ??None. PROCEDURE COMMENTS: XR HAND RIGHT PA LATERAL AND OBLIQUE FINDINGS: There is no fracture or traumatic malalignment. No radiopaque foreign body. There is severe osteophyte arthritis in the first CMC joint.. No periostitis. Procedure Note Andrews Muro MD - 03/04/2022 XR HAND RIGHT PA LATERAL AND OBLIQUE, 03/04/2022 12:00 PM CLINICAL HISTORY: -EXTREMITY LACERATION COMPARISON: None. PROCEDURE COMMENTS: XR HAND RIGHT PA LATERAL AND OBLIQUE FINDINGS: There is no fracture or traumatic malalignment. No radiopaqueforeign body. There is severe osteophyte arthritis in the first CMC joint.. Noperiostitis. IMPRESSION: No acute bony abnormality of the hand or radiopaque foreign body. Severe first CMC osteoarthritic. - Note: Radiology results need to be interpreted within a comprehensiveclinical context. If you have questions about the radiology report, please contactthe office of the ordering clinician. Rigo De Leon MD [facility] DER[facility] Final Result documented in this encounter Visit Diagnoses Diagnosis Laceration of right hand without foreign body, initial encounter- Primary documented in this encounter Administered Medications Inactive Administered Medications - up to 1 most recent administrations Medication Order MAR Action Action Date Dose Rate Site bacitracin ointment Topical, 2 TIMES DAILY, 28 doses, First dose on 03/04/22 at 1445, Last dose on Maritza 03/17/22 at 2100, Application site: R hand Given by Other 03/04/2022 2:45 PM EDT lidocaine-EPINEPHrine 1 %-1:100,000 injection 1 mL 1 mL, Infiltration, ONCE, 1 dose, On Mon03/04/22 at 1245 Given by Other 03/04/2022 12:45 PM EDT 1 mL documented in this encounter Active and Recently Administered Medications Times are shown in EDT. Scheduled Medication Order 03/02/2022 03/03/2022 03/04/2022 bacitracin ointment Topical, 2 TIMES DAILY, 28 doses, First dose on Mon03/04/22 at 1445, Last dose on Mon03/17/22 at 2100, Application site: R hand 1445 (Given by Other - Provider: Radha Whittington, JUDITH) lidocaine-EPINEPHrine 1 %-1:100,000 injection 1 mL (COMPLETED) 1 mL, Infiltration, ONCE, 1 dose, On Mon03/04/22 at 1245 1245 (Given by Other - Provider: Radha Whittington, RN) documented in this encounter Orders Nursing Count Last Ordered Date First Orde red Date CLEANSE WOUND 1 03/04/2022 ED DME WRIST BRACE WITH ABD THUMB 1 022 documented in this encounter Care Teams Olive Grader Relationship Specialty Start Date End Date Steffanie Fulton APRN [address] [email or web address] [address] PCP - General Nurse Practitioner 07/26/21 documented as of this encounter
--- OUTSIDE RECORDS SUMMARY | 2024-05-29 15:38 | XMS_ITS | Encounter Summary ---
Author Organization [place] [address] Care Team Providers Care Acid Concentrator Name Role Phone KirstinSteffanie YOLI Primary Care Provider +1- [phone] Reason for Visit * Reason Comments Medication Refill Encounter Details Date Type Department Care Team (Late st Contact Info) Description 06/01/2022 Refill [facility] [address] [place] [address] Michelle Garrido APRN Medication Refill Social History Tobacco Use Types [...] Clinical Support [facility] [address] [place] [phone] 11/19/2024 1:40 PM EDT Office Visit [facility] [address] [place] [address] Lyndsay Brewer DO [address] [place] [address] documented as of this encounter Goals Goal [...] whether persistent Wheezing documented in this encounter Additional Health Concerns Infection Onset Date Last Indicated Resolved Time INFLUENZA 05/27/2022 05/27/2022 06/11/2022 10:1 2 PM EST documented as of this encounter Care Teams Acid Concentrator Relationship Specialty Start Date End Date Steffanie Fulton APRN [address] [place] [address] PCP - General Nurse Practitioner 07/26/21 documented as of this encounter
--- OUTSIDE RECORDS SUMMARY | 2024-05-29 15:38 | XMS_ITS | Encounter Summary ---
Author Organization [place] [address] Care Team Providers Care Credit Collection Associate Name Role Phone Kirstin Steffanie KENT Primary Care Provider +1- [phone] Encounter Details Date Type Department Care Team (Late st Contact Info) Description 04/20/2022 Orders Only [facility] [address] [place] [phone] Kirstin SteffanieYOLI [address] [place] [address] Exposure to influenza (Primary Dx) Social History Tobacco Use Types [...] Date oseltamivir (TAMIFLU) 75 mg Oral CapsuleIndications :Exposure to influenza Take 1 Capsule by mouth daily for 10 days. 10 Capsule 04/20/2022 2 documented in this encounter Plan of Treatment Upcoming Encounters Date Type Department Care Team (Late st Contact Info) Description 06/28/2024 9:40 AM EST Clinical Support ANTOLIN [facility] [address] [place] [phone] 11/19/2024 1:40 PM EDT Office Visit [facility] [address] [facility] [place] [address] Lyndsay Brewer, DO [address] [place] [address] documented as of this [...] this encounter Visit Diagnoses Diagnosis Exposure to influenza- Primary Contact with or exposure to other viral diseases documented in this encounter Care Teams Credit Collection Associate Relationship Specialty Start Date End Date Steffanie Fulton APRN [address] [place] [address] PCP - General Nurse Practitioner 07/26/21 documented as of this encounter
--- OUTSIDE RECORDS SUMMARY | 2024-05-29 15:38 | XMS_ITS | Encounter Summary ---
Author Organization [facility] [place] [address] Care Team Providers Care Employer Relations Representative Name Role Phone Steffanie Fulton APRN Primary Care Provider [phone] Reason for Visit * Reason Comments Eye Problem eye problems for 2 d ays, [facility], this am spit out mouthwash and it went to the right, talked to a co-worker and he doesn't think stroke, but maybe bells palsy pt states. no facial droop in triage. cannot open eye on demand without holding the other eye - problem on right. Encounter Details Date Type Department Care Team (Late st Contact Info) Description 02/25/2022 7:44 AM EDT - 02/25/2022 8:[address] [facility] Emergency [address] [place] [address] Staci Neal MD [address] [place] [address] Conjunctivitis of right eye, unspecified conjunctivitis type (Primary Dx) Discharge Disposition: Home or Self [...] Sign Reading Time Taken Comments Blood Pressure 147/93 02/25/2022 7:17 AM EDT Pulse 75 02/25/2022 7:17 AM EDT Temperature 36.6 ??C (97.8 ??F) 02/25/2022 7:17 AM ED T Respiratory Rate 16 02/25/2022 7:17 AM EDT Oxygen Saturation 97% 02/25/2022 7:17 AM EDT Inhaled Oxygen Concentration - - Weight 95.8 kg (211 lb 1.6 oz) 02/25/2022 7:18 A M EDT Height - - Body Mass Index 33.06 02/03/2022 1:58 PM EDT documented in this [...] Jane Barajas MA documented in this encounter Discharge Instructions * Attachments The following attachments cannot be sent through Care Everywhere. * Conjunctivitis (Noninfectious Pinkeye) (Angolan) documented in this encounter Medications at Time of Discharge betamethasone dipropionate (DIPROLENE) 0.05 % Top OintmentIndications :Psoriasis APPLY TO AFFECTED AREA EVERY DAY 15 g 2 11/04/2021 fluticasone propionate (FLONASE) 50 mcg/actuation Nasl Empire, SuspensionIndicatio ns:Moderate persistent asthma, uncomplicated SPRAY 1 [...] daily. 60 Capsule 11 01/28/2022 02/22/20 23 ciprofloxacin HCl (CILOXAN) 0.3 % Opht Drops Place 2 Drops into the right eye 4 times daily for 5 days. Apply to affected eye(s) 5 mL 02/25/2022 03/02/20 22 hydroCHLOROthiazide (MICROZIDE) 12.5 mg Oral CapsuleIndications: [...] Refills Last Filled Start Date End Date ciprofloxacin HCl (CILOXAN) 0.3 % Opht Drops Place 2 Drops into the right eye 4 times daily for 5 days. Apply to affected eye(s) 5 mL 02/25/2022 2 documented in this encounter Discharge Disposition Disposition Code Departure Means Destination Comment s Home or Self [facility] documented in this encounter ED Notes * Staci Neal MD - 02/25/2022 7:11 AM EDT CHIEF COMPLAINT Chief Complaint Patient presents with ??? Eye Problem eye problems for 2 days, [facility], this am spit out mouthwash andit went to the right, talked to a co-worker and he doesn't think stroke, but maybe bells palsy pt states. no facial droop in triage. cannot open eye on demand without holding the other eye - problem on right. HPI Zuhair Whitlock is a 56 y.o. male presents with right eye irritation for the past couple days. This morning he felt weakness on the right side of his face. He spit out water and it felt different. He has no headache or focal motor weakness. He spoke with a friend who advised he be evaluated forstroke. He has an appointment today with [facility] to evaluate his right eye. REVIEW OF SYSTEMS Review of Systems Constitutional: Negative for chills and fever. Neurological: Negative for speech change, focal weakness and headaches. All other systems reviewed and are negative. See HPI for further details. Remainder of Review of systems is otherwise negative. PAST MEDICAL HISTORY Past Medical History: Diagnosis Date ??? Arthritis ??? Asthma 06/02/2010 ??? Bipolar affective (HCC) ??? Blood transfusion ??? EPHRAIM (generalized anxiety disorder) ??? Heart attack (HCC) ??? Heroin abuse (HCC) Quit August ??? Hypertension ??? IBS (irritable bowel syndrome) ??? Opiate dependence (HCC) Remission x 5 years ??? Pneumonia ??? Pneumothorax FAMILY HISTORY Family History Problem Relation Age of Onset ??? Diabetes Mother ??? Heart Disease Mother ??? High Blood Pressure Mother ??? High Cholesterol Mother ??? Cancer Father 40 stomach ??? Other (Diabetes living) Sister 1 sister passed ??? No Known Problems Brother ??? Diabetes Maternal Grandmother ??? No Known Problems Maternal Grandfather ??? Cancer Paternal Grandmother SOCIAL HISTORY Social History Socioeconomic History ??? Marital status: Legally Tobacco Use ??? Smoking status: Never Smoker ??? Smokeless tobacco: Current User Types: Snuff Vaping Use ??? Vaping Use: Never used Substance and Sexual Activity ??? Alcohol use: No ??? Drug use: No Comment: in past stated been in recovery for 6 years 2012 SURGICAL HISTORY Past Surgical History: Procedure Laterality Date ??? [...] MD; Location: ED MAIN OR; Service: Orthopedics ??? KNEE SURGERY LEFT ACL RECONSTRUCTION ??? KNEE SURGERY LEFT ARTHROSCOPIES IRRAGATION X 7 FOR INFECTION ??? KNEE SURGERY RIGHT ARTHROSCOPIC MENICUS REPAIR ??? SHOULDER ARTHROSCOPY Right 11/29/2019 RIGHT SHOULDER ARTHROSCOPIC ROTATOR CUFF REPAIR DECOMPRESSION ACROMIOPLASTY, ACROMIOCLAVICULAR JOINT EXCISION; Surgeon: Kenny Loja MD; Location: [facility]; Service: Orthopedics ??? TOTAL HIP ARTHROPLASTY Left 2009 CURRENT MEDICATIONS Current Facility-Administered Medications on File Prior to Encounter Medication Dose Route Frequency Provider Last Rate Last Admin ??? bupivacaine HCl (MARCAINE) 0.5 % (5 mg/mL) injection 2 mL 2 mL Intra- articular Augie Ramires MD 2 mL at 08/16/21 0945 ??? triamcinolone acetonide (KENALOG-40) injection 40 mg 40 mg Intra-articular Augie Ramires MD 40 mg at 08/16/21 0945 Current Outpatient Medications on File Prior to Encounter Medication Sig Dispense Refill ??? losartan (COZAAR) 50 mg Oral Tablet TAKE 1 TABLET BY MOUTH TWICE A DAY 180 Tablet 0 ??? albuterol (PROVENTIL HFA;VENTOLIN HFA) 90 mcg/actuation Inhl HFA Aerosol Inhaler INHALE 1 TO 2 PUFFS EVERY 4 HOURS NEEDED FOR WHEEZING. 6.7 Each 1 ??? albuterol (PROVENTIL) 2.5 mg /3 mL (0.083 %) Inhl Solution for Nebulization Take 3 mL by nebulization every 4 hours as needed for Wheezing. 180 mL 1 ??? amLODIPine (NORVASC) 5 mg Oral Tablet TAKE 1 TABLET BY MOUTH EVERY DAY 90 Tablet 0 ??? amLODIPine (NORVASC) 5 mg Oral Tablet Take 1 Tablet by mouth daily. 90 Tablet 1 ??? amoxicillin-clavulanate (AUGMENTIN) 875-125 mg Oral Tablet Take 1 Tablet by mouth 2 times daily. 14 Tablet 0 ??? atorvastatin (LIPITOR) 40 mg Oral Tablet Take 1 Tablet by mouth nightly. 30 Tablet 11 ??? betamethasone dipropionate (DIPROLENE) 0.05 % Top Ointment APPLY TO AFFECTED AREA EVERY DAY 15 g 2 ??? budesonide-formoteroL (SYMBICORT) 160-4.5 mcg/actuation Inhl HFA Aerosol Inhaler Inhale 2 Puffsinto the lungs 2 times daily. 1 Each 6 ??? celecoxib (CELEBREX) 200 mg Oral Capsule [...] ??? fluticasone propionate (FLONASE) 50 mcg/actuation Nasl Empire, Suspension SPRAY 1 SPRAY INTO EACH NOSTRIL EVERY DAY (Patient not taking: Reported on 02/03/2022) 32 mL 1 ??? guaiFENesin (MUCINEX) 600 mg Oral Tablet Extended Release 12hr Take 1 Tablet by mouth 2 times daily as needed for Congestion (thick secretions). (Patient not taking: Reported on 02/03/2022) 20 Tablet 0 ??? hydroCHLOROthiazide (MICROZIDE) 12.5 mg Oral Capsule Take 1 Capsule by mouth daily. 90 Capsule 1 ??? montelukast (SINGULAIR) 10 mg Oral Tablet TAKE 1 TABLET BY MOUTH EVERY DAY AT NIGHT 90 Tablet 0 ??? Nebulizer Accessories (ALL FLOW 4000 KIT) [facility] equivalent 1 Each 0 ??? tadalafiL (CIALIS) 5 mg Oral Tablet TAKE 1 TAB BY MOUTH NEEDED. FOR ERECTILE DYSFUNCTION (NOT COVERED) 90 Tablet 2 ??? tamsulosin (FLOMAX) 0.4 mg Oral Capsule TAKE 1 CAPSULE BY MOUTH EVERY DAY AT NIGHT 90 Capsule 1 ALLERGIES Allergies Allergen Reactions ??? Abilify [Aripiprazole] Other (See Comments) convulsions ??? Unable To Assess Patient does not take any narcotic medications PHYSICAL EXAM VITAL SIGNS: ED Triage Vitals Temp 02/25/22 0717 97.8 ??F (36.6 ??C) Pulse 02/25/22 0717 75 Resp 02/25/22 0717 16 BP 02/25/2217 147/93 SpO2 02/25/22 0717 97 % Height -- Weight 02/25/2218 211 lb 1.6 oz (95.8 kg) Constitutional: NAD, awake and alert HENT: Atraumatic. Eyes: Mild right conjunctivitis Extraocular muscles intact. Pupils equal and reactive. Neck: ROM normal, supple. Cardiovascular: Regular rhythm, No murmur. Thorax & Lungs: Respiratory effort normal. Lungs clear. Abdomen: Soft, nondistended, nontender. No rebound or guarding. /Anorectal: Musculoskeletal: Normal ROM. No edema. Skin: Warm and dry. Neurologic: Alert , Nonfocal. Cranial Nerves 2-12 are grossly intact. Good strength and sensation x4 extremities. Mental status normal. No ataxia. Psychiatric: Affect normal. LABS/RADIOLOGY Results for orders placed or performed during the hospital encounter of 02/25/22 CT HEAD WO CONTRAST Narrative CT HEAD WO CONTRAST 02/25/2022 8:19 AM CLINICAL HISTORY: -facial weakness. COMPARISON: None. PROCEDURE COMMENTS: Routine noncontrast head CT with multiplanar reconstructions. Dose 1 : CT DLP Total : 812.43 mGycm DLP Spiral Max : 806.5 mGycm Maximum CTDI Vol : 48.28 mGy FINDINGS: The ventricles, sulci and basal cisterns are normal in size and configuration. There is no intracranial hemorrhage or extra-axial fluid collections. There is no mass effect or midline shift. The beasley-white differentiation is maintained. The brain parenchyma is normal. The globes and orbits are normal. There is scleral banding of the right globe. The paranasal sinuses are clear. The mastoid air cells are patent. The calvarium is normal. Impression No acute intracranial abnormality. - Note: Radiology results need to be interpreted within a comprehensive clinical context. If you have questions about the radiology report, please contact the office of the ordering clinician. CBC WITH DIFF Result Value Ref Range WBC 6.3 3.7 - 10.3 x10(3)/mcL RBC 4.70 4.60 - 6.10 x10(6)/mcL Hgb 15.1 13.7 - 17.5 g/dL Hct 43.7 40.0 - 51.0 % MCV 93.0 80.0 - 100.0 fL MCH 32.1 26.0 - 34.0 pg MCHC 34.6 30.7 - 35.5 g/dL RDW 12.3 <=14.9 % Platelet 155 155 - 369 x10(3)/mcL MPV 9.6 8.8 - 12.5 fL Neut Percent 66.5 % Imm Gran% 0.2 % Lymph Percent 23.8 % [place] Percent 7.6 % Eos Percent 1.6 % Baso Percent 0.3 % Neut # 4.2 1.6 - 6.1 x10(3)/mcL IMMGRAN# 0.0 0.0 - 0.1 x10(3)/mcL Lymph # 1.5 1.2 - 3.9 x10(3)/mcL [place] # 0.5 0.3 - 0.9 x10(3)/mcL Eos# 0.1 0.0 - 0.5 x10(3)/mcL Baso # 0.0 0.0 - 0.1 x10(3)/mcL COMPREHENSIVE METABOLIC PANEL Result Value Ref Range Sodium 136 136 - 145 mmol/L Potassium 3.9 3.5 - 5.0 mmol/L Chloride 102 98 - 107 mmol/L Total CO2 24 22 - 29 mmol/L Anion Gap 10 7 - 16 mmol/L Calcium 9.7 8.6 - 10.4 mg/dL Glucose Lvl 99 74 - 100 mg/dL BUN 18 6 - 20 mg/dL Creatinine 0.90 0.67 - 1.30 mg/dL Albumin 4.5 3.5 - 5.2 gm/dL Total Protein 7.2 6.4 - 8.3 gm/dL Bili Total 0.4 0.1 - 1.4 mg/dL ALT 23 <=41 U/L AST 23 <=40 U/L Alk Phos 125 40 - 129 U/L eGFR (CKD-EPIcr 2020) 101 >=60 mL/min/1.73 m2 EK EKG 12 LEAD Narrative NOTICE: Preliminary tracing available for review; Final Interpretation by physician to follow. Impression 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 Impression 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 (See chart for details) Medications Administered Medications - No data to display MEDICAL DECISION MAKING Initial clinical impression after initial history and physical exam: right facial weakness. No evidence for facial asymmetry or weakness. His neurological examination is normal on assessment. CT headshows no evidence for acute CVA. Labs also within normal. He has appointment today for eye evaluation. Final clinical impression after further evaluation, observation, and/or diagnostic testing: Right eyeconjunctivitis FINAL IMPRESSION 1. Conjunctivitis of right eye, unspecified conjunctivitis type CRITICAL CARE Condition at Discharge/Transfer from Department: Stable In cases where narcotics are prescribed, Narx report was reviewed, and made part of record. After examining available information, and risks of prescribing or dispensing controlled substances was explained to the patient (including non- treatment or other treatment), it is considered medically appropriate to administer narcotics as prescribed. This chart was completed using voice recognition technology and may contain unintended errors Staci Neal MD 02/25/22 0841 documented in this encounter Plan of Treatment Upcoming Encounters Date Type Department Care Team (Late st Contact Info) Description 06/28/2024 9:40 AM EST Clinical Support [facility] [address] [place] [phone] 11/19/2024 1:40 PM EDT Office Visit [facility] Neu[facility] [address] [place] [address] Lyndsay Brewer DO [address] [place] [address] documented as [...] Procedure Name Priority Date/Time Associated Diagnosis Comments SCANNED EKG 03/01/2022 10:[address] HEAD WO CONTRAST STAT 02/25/2022 8 :19 AM EDT EK EKG 12 LEAD STAT 02/25/2022 8:19 AM EDT CBC WITH DIFF STAT 02/25/2022 8:06 AM EDT COMPREHENSIVE METABOLIC PANEL STAT 02/25/2022 8:06 AM EDT documented in this encounter Results * SCANNED EKG (03/01/2022 10:19 AM EDT) Anatomical Region Laterality Modality Other 03/01/2022 10:1 9 AM EDT us Unknown Provider IMG ECG ORDERABLES Final Result * CT HEAD WO CONTRAST (02/25/2022 8:19 AM EDT) Anatomical Region Laterality Modality Head Computed Tomogra phy 02/25/2022 8:19 AM EDT Impressions 02/25/2022 8:27 AM EDT No acute intracranial abnormality. - Note: Radiology results need to be interpreted within a comprehensive clinical context. ??If you have questions about the radiology report, please contact the office of the ordering clinician. Narrative 02/25/2022 8:[address] HEAD WO CONTRAST ??02/25/2022 8:19 AM ?? CLINICAL HISTORY: ??-facial weakness. COMPARISON: ??None. PROCEDURE COMMENTS: Routine noncontrast head CT with multiplanar reconstructions. ?? Dose 1 : CT DLP Total : 812.43 mGycm DLP Spiral Max : 806.5 mGycm Maximum CTDI Vol : 48.28 mGy FINDINGS: ?? The ventricles, sulci and basal cisterns are normal in size and configuration. There is no intracranial hemorrhage or extra-axial fluid collections. There is no mass effect or midline shift. The beasley-white differentiation is maintained. The brain parenchyma is normal. The globes and orbits are normal. There is scleral banding of the right globe. The paranasal sinuses are clear. The mastoid air cells are patent. The calvarium is normal. Procedure Note Georegtte Haney MD - 02/25/2022 CT HEAD WO CONTRAST 02/25/2022 8:19 AM CLINICAL HISTORY: -facial weakness. COMPARISON: None. PROCEDURE COMMENTS: Routine noncontrast head CT with multiplanar reconstructions. Dose 1 : CT DLP Total : 812.43 mGycm DLP Spiral Max : 806.5 mGycm Maximum CTDI Vol : 48.28 mGy FINDINGS: The ventricles, sulci and basal cisterns are normal in size andconfiguration. There is no intracranial hemorrhage or extra-axial fluid collections.There is no mass effect or midline shift. The beasley-white differentiation ismaintained. The brain parenchyma is normal. The globes and orbits are normal. There is scleral banding of the rightglobe. The paranasal sinuses are clear. The mastoid air cells are patent. Thecalvarium is normal. IMPRESSION: No acute intracranial abnormality. - Note: Radiology results need to be interpreted within a comprehensiveclinical context. If you have questions about the radiology report, please contactthe office of the ordering clinician. us Staci Neal MD IMG CT ORDERABLES Final Result * EK EKG 12 LEAD (02/25/2022 8:19 AM EDT) Anatomical Region Laterality Modality Electrocardiogra phy 02/25/2022 8:14 AM EDT Impressions 02/25/2022 10:27 AM EDT ? [facility] ? Test Date: ?2022-02-25 Pat Name: ? ZUHAIR WHITLOCK ?Department: ?? [facility] ? Room: ? FT22 Gender: ? Male ? Bank Vault Clerk: ?? [place]ak : ?1965 ? Requested By: STACI Banks Order Number: [id number] ?Reading : ?? Arvin Alfaro MD ? Measurements Intervals ?Myrtle ? Rate: ? 61 ? P: ?71 NJ: ? 187 ?QRS: ?58 QRSD: ? 106 ?T: ?56 QT: ? 396 ? QTc: ?402 ? Interpretive Statements SINUS RHYTHM Electronically Signed On 02-25-2022 10:27:01 EDT by Arvin Alfaro MD Narrative Procedure Note Arvin Alfaro MD - 02/25/[address] [facility] Test Date: 2022-02-25 Pat Name: ZUHAIR WHITLOCK Department: [facility] Room: [facility] Gender: Male Bank Vault Clerk: [place] : 1965 Requested By: STACI Banks Order Number: [id number] Magalis MD: Arvin Alfaro MD Measurements Intervals Myrtle Rate: 61 P: 71 NJ: 187 QRS: 58 QRSD: 106 T: 56 QT: 396 QTc: 402 Interpretive Statements SINUS RHYTHM Electronically Signed On 02-25-2022 10:27:01 EDT by Arvin Alfaro MD Staci Neal MD IMG ECG ORDERABLES Final Resul t * COMPREHENSIVE METABOLIC PANEL (02/25/2022 8:06 AM EDT) Sodium 136 136 - 145 mmol/L 02/25/2022 8:32 AM EDT [facility] Potassium 3.9 3.5 - 5.0 mmol/L 02/25/2022 8:32 AM EDT [facility] Chloride 102 98 - 107 mmol/L 02/25/2022 8:32 AM EDT [facility] Total CO2 24 22 - 29 mmol/L 02/25/2022 8:32 AM EDT [facility] Anion Gap 10 7 - 16 mmol/L 02/25/2022 8:32 AM EDT [facility] Calcium 9.7 8.6 - 10.4 mg/dL 02/25/2022 8:32 AM EDT [facility] Glucose Lvl 99 74 - 100 mg/dL 02/25/2022 8:32 AM EDT [facility] BUN 18 6 - 20 mg/dL 02/25/2022 8:32 AM EDT [facility] Creatinine 0.90 0.67 - 1.30 mg/dL 02/25/2022 8:32 AM T [facility] Albumin 4.5 3.5 - 5.2 gm/dL 02/25[facility]2022 [facility] Total Protein 7.2 6.4 - 8.3 gm/dL 02/25/2022 8:32 AM EDT [facility] Bili Total 0.4 0.1 - 1.4 mg/dL 02/25/2022 8:32 AM EDT [facility] ALT 23 <=41 U/L 02/25/2022 8:32 AM EDT [facility] AST 23 <=40 U/L 02/25/2022 8:32 AM EDT [facility] Alk Phos 125 40 - 129 U/L 02/25/2022 8:32 AM EDT [facility] eGFR (CKD-EPIcr 2020) 101 >=60 mL/min/1.7 3 m2 02/25/2022 8:32 AM EDT [facility] Comment:Estimated GFR was ca lculated using the CKD-EPIcr (2020) equation refit without race. The equation is recommended by the National Kid[employer] - [place] [employer] of Nephrology Task Force. Blood VENOUS BLOOD / Unknown Venipuncture / Unknown 02/25/2022 8:06 AM EDT 02/25/2022 8:12 AM EDT us Staci Neal MD CHEMISTRY ORDERABLES Final Res ult [facility] [address] [place] [address] * CBC WITH DIFF (02/25/2022 8:06 AM EDT) WBC 6.3 3.7 - 10.3 x10(3)/mcL 02/25/2022 8:15 AM EDT [facility] RBC 4.70 4.60 - 6.10 x10(6)/mcL 02/25/2022 8:15 AM EDT [facility] Hgb 15.1 13.7 - 17.5 g/dL 02/25/2022 8:15 AM EDT [facility] Hct 43.7 40.0 - 51.0 % 02/25/2022 8:15 AM EDT [facility] MCV 93.0 80.0 - 100.0 fL 02/25/2022 8:15 AM EDT [facility] MCH 32.1 26.0 - 34.0 pg 02/25/2022 8:15 AM EDT [facility] MCHC 34.6 30.7 - 35.5 g/dL 02/25/2022 8:15 AM EDT [facility] RDW 12.3 <=14.9 % 02/25/2022 8:15 AM EDT [facility] Platelet 155 155 - 369 x10(3)/mcL 02/25/2022 8:15 AM EDT [facility] MPV 9.6 8.8 - 12.5 fL 02/25/2022 8:15 AM EDT [facility] Neut Percent 66.5 % 02/25/2022 8:15 AM EDT [facility] Comment:Neutrophils equals s egs plus bands Imm Gran% 0.2 % 02/25/2022 8:15 AM EDT [facility] Comment:Automated count of m etamyelocytes, myelocytes and promyelocytes. Lymph Percent 23.8 % 02/25/2022 8:15 AM EDT [facility] [place] Percent 7.6 % 02/25/2022 8:15 AM EDT [facility] Eos Percent 1.6 % 02/25/2022 8:15 AM EDT [facility] Baso Percent 0.3 % 02/25/2022 8:15 AM EDT [facility] Neut # 4.2 1.6 - 6.1 x10(3)/[facility] 02/25/2022 8:15 AM EDT [facility] Comment:Neutrophils equals s egs plus bands IMMGRAN# 0.0 0.0 - 0.1 x10(3)/[facility] 02/25/2022 8:15 AM EDT [facility] Comment:Automated count of m etamyelocytes, myelocytes and promyelocytes. An absolute IG <0.1 is reported as 0.0. Lymph # 1.5 1.2 - 3.9 x10(3)/[facility] 02/25/2022 8:15 AM EDT [facility] [place] # 0.5 0.3 - 0.9 x10(3)/[facility] 02/25/2022 8:15 AM EDT [facility] Eos# 0.1 0.0 - 0.5 x10(3)/[facility] 02/25/2022 8:15 AM EDT [facility] Baso # 0.0 0.0 - 0.1 x10(3)/[facility] 02/25/2022 8:15 AM EDT [facility] Blood VENOUS BLOOD / Unknown Venipuncture / Unknown 02/25/2022 8:06 AM EDT 02/25/2022 8:13 AM EDT us Staci Neal MD HEMATOLOGY ORDERABLES Final Re sult [facility] [address] [place] [address] documented in this encounter Visit Diagnoses Diagnosis Conjunctivitis of right eye, unspecified conjunctivitis type- Primary documented in this encounter Care Teams Employer Relations Representative Relationship Specialty Start Date End Date Steffanie Fulton APRN [address] [place] [address] PCP - General Nurse Practitioner 07/26/21 documented as of this encounter
--- OUTSIDE RECORDS SUMMARY | 2024-05-29 15:38 | XMS_ITS | Encounter Summary ---
Author Organization [place] [address] Care Team Providers Care Kettle Skimmer Name Role Phone Kirstin Steffanie YOLI Primary Care Provider +1- [phone] Reason for Visit * Reason Comments Medication Refill Encounter Details Date Type Department Care Team (Late st Contact Info) Description 02/06/2022 Refill [facility] [address] [place] [phone] KirstinSteffanieYOLI [address] [place] [address] Medication Refill Social History Tobacco Use Types [...] MOUTH TWICE A DAY 180 Tablet 02/07/2022 05/09/2022 documented in this encounter Miscellaneous Notes * Telephone Encounter - Niecy Riley CPhT - 02/07/2022 4:19 PM EDT Losartan- Medication Refill Protocol passed. [facility] Action: Approved refills to noted follow-up date by provider or protocol if no follow-up date noted. documented in this encounter Plan of Treatment Upcoming Encounters Date Type Department Care Team (Late st Contact Info) Description 06/28/2024 9:40 AM EST Clinical Support [facility] [address] [place] [address] 11/19/2024 1:40 PM EDT Office Visit SEP Neurology [facility] [address] [place] [address] Lyndsay Brewer DO [address] [place] [address] documented as of this encounter [...] 1 TABLET BY MOUTH TWICE A DAY 01/10/2022 02/07/2022 documented as of this encounter Additional Health Concerns Infection Onset Date Last Indicated Resolved Time INFLUENZA 02/03/2022 02/03/2022 02/18/2022 10:1 2 PM EDT COVID-19 02/03/2022 02/03/2022 02/23/2022 10:1 2 PM EDT documented as of this encounter Care Teams Kettle Skimmer Relationship Specialty Start Date End Date Steffnaie Fulton APRN [address] [place] [address] PCP - General Nurse Practitioner 07/26/21 documented as of this encounter
--- OUTSIDE RECORDS SUMMARY | 2024-05-29 15:38 | XMS_ITS | Encounter Summary ---
Author Organization [place] [address] Care Team Providers Care Cushion Cover Inspector Name Role Phone Kirstin Steffanie KENT Primary Care Provider +1- [phone] Reason for Visit * Reason Comments Medication Refill Encounter Details Date Type Department Care Team (Late st Contact Info) Description 05/06/2022 Refill [facility] [address] [place] [phone] KirstinSteffanieYOLI [address] [facility] [place] [address] Medication Refill Social History Tobacco Use Types [...] 1 TABLET BY MOUTH TWICE A DAY 60 Tablet 1 05/09/2022 05/25/2022 documented in this encounter Miscellaneous Notes * Telephone Encounter - Sonia Alvarado CPhT - 05/09/2022 8:38 AM EST Losartan- Medication Refill Protocol passed. [facility] Action: Approved refills to noted follow-up date by provider or protocol if no follow-up date noted. documented in this encounter Plan of Treatment Upcoming Encounters Date Type Department Care Team (Late st Contact Info) Description 06/28/2024 9:40 AM EST Clinical Support [facility] [address] [place] [phone] 11/19/2024 1:40 PM EDT Office Visit [facility] Neurology [facility] [address] [place] [address] Lyndsay Brewer DO [address] [place] [address] documented as of this encounter [...] 1 TABLET BY MOUTH TWICE A DAY 02/07/2022 05/09/2022 documented as of this encounter Care Teams Cushion Cover Inspector Relationship Specialty Start Date End Date Steffanie Fulton APRN [address] [place] [address] PCP - General Nurse Practitioner 07/26/21 documented as of this encounter
--- OUTSIDE RECORDS SUMMARY | 2024-05-29 15:38 | XMS_ITS | Encounter Summary ---
Author Organization [place] [address] Care Team Providers Care Belt Turner Name Role Phone Steffanie Fulton APRN Primary Care Provider +1- [phone] Reason for Visit * Reason Comments Medication Refill Encounter Details Date Type Department Care Team (Late st Contact Info) Description 04/24/2022 Refill [facility] [address] [place] [address] Michael Mckeon MD [address] [place] [address] Medication Refill Social History Tobacco Use Types [...] EST Clinical Support [facility] [address] [place] [phone] 11/19/2024 1:40 PM EDT Office Visit [facility] Neurology [facility] [address] [place] [address] Lyndsay Brewer DO [address] [place] [address] documented as of this [...] Visit Diagnoses Diagnosis Irritable bowel syndrome with diarrhea Irritable bowel syndrome 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
--- OUTSIDE RECORDS SUMMARY | 2024-05-29 15:38 | XMS_ITS | Encounter Summary ---
Author Organization [place] [address] Care Team Providers Care Distribution Center Associate Name Role Phone Steffanie Fulton APRN Primary Care Provider +1- [phone] Reason for Visit * Reason Onset Date Comments ED Follow-Up Call 03/01/2022 Encounter Details Date Type Department Care Team (Late st Contact Info) Description 03/01/2022 Patient Outreach [facility] [address] [place] [id number] Macarena Dover, HYDROGRAPHY TEACHER Follow-Up Call Social History Tobacco Use Types [...] documented in this encounter Progress Notes * Macarena Dover RN - 03/01/2022 10:44 AM EDT Called patient for ED follow up and he stated he only had a minute. Patient stated he went to [facility] after being seen in the Emergency Room and they took care of him and his eye is improving. Patient denies the need for appointment with Steffanie Fulton APRN but will call with any concerns. Unable to complete entire follow up. documented in this encounter Plan of Treatment Upcoming Encounters Date Type Department Care Team (Late st Contact Info) Description 06/28/2024 9:40 AM EST Clinical Support [facility] [address] [place] [phone] 11/19/2024 1:40 PM EDT Office Visit SEP Neurology [facility] [address] [place] [address] Lyndsay Brewer DO [address] [place] [address] documented as of this encounter [...] on filedocumented in this encounter Care Teams Distribution Center Associate Relationship Specialty Start Date End Date Steffanie Fulton APRN [address] [place] [address] PCP - General Nurse Practitioner 07/26/21 documented as of this encounter
--- OUTSIDE RECORDS SUMMARY | 2024-05-29 15:38 | XMS_ITS | Encounter Summary ---
Author Organization [place] [address] Care Team Providers Care Alignment Specialist Name Role Phone Steffanie Fulton APRN Primary Care Provider +1- [phone] Reason for Referral * Consultation (Routine) - Closed Specialty Diagnoses / Procedures Referred By Contsathish t Referred To Contact Ophthalmology Diagnoses Pain of right eye Ligia Wiley MD [address] [place] [address] Phone: tel: fax: [facility] Referral ID Status Reason Start Date Expiration Date Visits Re quested Visits Authorized [id number] Closed 02/24/2022 02/24/2023 99 99 Question Answer Provider Options First Available Encounter Details Date Type Department Care Team (Late st Contact Info) Description 02/24/2022 2:15 PM EDT [facility] [address] [employer] [place] [phone] Ligia Wiley MD [address] [place] [address] Pain of right eye (Primary Dx) Social History Tobacco Use Types [...] of Assessment Author Yes 10/07/2020 8:08 AM ADITYAT Jane Garrido MA * Does this person [...] Progress Notes * Ligia Wiley MD - 02/24/2022 2:15 PM EDT Patient presented today for routine care follow-up through a video visit. Patient has reviewed the terms and conditions of service as part of the registration for today's visit. A video visit does not replace a [id number] exam and further services may be necessary. We are conducting his video visit in a private space and this video visit is being conducted in accordance with [facility] telehealth/video visit regulations. HPI: Eye redness: states his eye on the right is itching and burning. States it feels irritated and red.Eyes feels dry. They do not feel like there is anything in the eyes. They are very watery. States his vision is blurry. Pain when looking at light. This is gotten worse over the past 2 to 3 days. He has tried a topical antibiotic at home and it has not helped. Review of Systems Constitutional: Negative for fever. HENT: Negative for congestion, rhinorrhea and sinus pressure. Eyes: Positive for photophobia, pain, redness and visual disturbance. Respiratory: Negative for cough and shortness of breath. Cardiovascular: Negative for chest pain. Gastrointestinal: Negative for abdominal pain, constipation, diarrhea, nausea and vomiting. Endocrine: Negative for polydipsia, polyphagia and polyuria. Genitourinary: Negative for dysuria. Musculoskeletal: Negative for back pain. Skin: Negative for rash. Neurological: Negative for seizures and headaches. Psychiatric/Behavioral: Negative for sleep disturbance. Exam: Constitutional: NAD, appropriately groomed. Appears comfortable. HENT: No gross deformities. Voice normal. No facial swelling noted. Eyes: Extra occular movements grossly intact. Visible portions of the eyes appear normal. No redness or discharge visible via casual video inspection. Cardiopulmonary: Does not appear in cardiopulmonary distress. Easy respirations w/o labored breathing. No audible gross wheezing or breathlessness. Neuro: Alert and oriented. Conversational. No gross deficits or facial droop appreciated on video evaluation. Psych: Appropriate mood and affect. Normal conversation and thought content. Assessment Diagnoses and all orders for this visit: Pain of right eye - AMB REFERRAL TO OPHTHALMOLOGY I recommend close follow-up with ophthalmology. documented in this encounter Plan of Treatment Upcoming Encounters Date Type Department Care Team (Late st Contact Info) Description 06/28/2024 9:40 AM EST Clinical Support [facility] [address] [employer] [place] [phone] 11/19/2024 1:40 PM EDT Office Visit [facility] Neurology [facility] [address] [place] [phone] Lyndsay Brewer DO [address] [place] [address] Scheduled Referrals Name Type Priority Associated Diagnoses Order Schedule AMB REFERRAL TO OPHTHALMOLOGY Outpatient Referral Routine Pain of right eye Ordered: 02/24/2022 documented as of this encounter Goals Goal Patient Goal Type Associated Problems Recent Progress Patient-Stated? Author Blood Pressure < 140/90 Blood Pressure 134/84(2023 1:16 PM EST) No Yana Choi RMA Eat better, exercise, reach an ideal body weight General No Yana Choi RMA Stay Tobacco Free Lifestyle No Yana Choi RMJane documented as of this encounter Visit Diagnoses Diagnosis Pain of right eye- Primary Pain in or around eye documented in this encounter Care Teams Alignment Specialist Relationship Specialty Start Date End Date Steffanie Fulton APRN [address] [employer] [place] [address] PCP - General Nurse Practitioner 07/26/21 documented as of this encounter
[2024-05-29 15:39] LABS: Adenovirus,PCR Not Detected (NotDetected); Bordetella Pertussis Not Detected (NotDetected); Chlamydophila Pneumoniae, PCR Not Detected (NotDetected); Coronavirus 19, PCR Not Detected (NotDetected); Coronavirus 229E Not Detected (NotDetected); Coronavirus NL63 Not Detected (NotDetected); Coronavirus OC43 Not Detected (NotDetected); Coronovirus HKU1,PCR Not Detected (NotDetected); Human Metapneumovirus Not Detected (NotDetected); Influenza A, PCR Not Detected (NotDetected); Influenza AH1, 2009 Not Detected (NotDetected); Influenza AH1, PCR Not Detected (NotDetected); Influenza AH3,PCR Not Detected (NotDetected); Influenza B, PCR Not Detected (NotDetected); Mycoplasma Pneumoniae, PCR Not Detected (NotDetected); Parainfluenza 1, PCR Not Detected (NotDetected); Parainfluenza 2, PCR Not Detected (NotDetected); Parainfluenza 3, PCR Not Detected (NotDetected); Parainfluenza 4, PCR Not Detected (NotDetected); Respiratory Syncytial Virus Not Detected (NotDetected)
--- OUTSIDE RECORDS SUMMARY | 2024-05-29 15:39 | XMS_ITS | Encounter Summary ---
Author Organization [place] [address] Care Team Providers Care Crematorium Operator Name Role Phone Steffanie Fulton APRN Primary Care Provider +1- [phone] Reason for Visit * Reason Comments Medication Refill Encounter Details Date Type Department Care Team (Late st Contact Info) Description 12/06/2021 Refill [facility] [address] [place] [address] Michael Mckeon MD [address] [place] [address] Medication Refill Social History Tobacco Use Types [...] suspected to have Coronavirus/COVID-19? No / Unsure 12/02/2021 12:19 PM EDT documented as of this encounter Functional [...] gram Oral TabletIndications: Irritable bowel syndrome with diarrhea,Bile salt-induced diarrhea TAKE 1 TABLET BY MOUTH 2 TIMES DAILY. NEEDS AN APPOINTMENT 60 Tablet 12/06/2021 documented in this encounter Plan of Treatment Upcoming Encounters Date Type Department Care Team (Late st Contact Info) Description 06/28/2024 9:40 AM EST Clinical Support [facility] [address] [place] [phone] 11/19/2024 1:40 PM EDT Office Visit SEP Neurology [facility] [address] [place] [address] Lyndsay Brewer, DO [address] [place] [address] documented as of this encounter [...] specified intestinal malabsorption documented in this encounter Discontinued Medications Medication Sig Discontinue Reason Start Date End Da te colestipoL (COLESTID) 1 gram Oral TabletIndications:Irrita ble bowel syndrome with diarrhea,Bile salt-induced diarrhea TAKE 2 TABLETS BY MOUTH TWICE A DAY 11/02/2021 12/06/2021 documented as of this encounter Care Teams Crematorium Operator Relationship Specialty Start Date End Date Steffanie Fulton APRN [address] [place] [address] PCP - General Nurse Practitioner 07/26/21 documented as of this encounter
--- OUTSIDE RECORDS SUMMARY | 2024-05-29 15:39 | XMS_ITS | Encounter Summary ---
Author Organization [place] [address] Care Team Providers Care Emergency Medical Service Coordinator Name Role Phone Steffanie Fulton APRN Primary Care Provider +1- [phone] Reason for Referral * Echo (Routine) - Closed Specialty Diagnoses / Procedures Referred By Contac t Referred To Contact Radiology Diagnoses SOB (shortness of breath) Essential hypertension Chest pain, unspecified type Procedures EC ECHOCARDIOGRAM COMPLETE W DOPPLER AND COLOR FLOW MAPPING Federico Camacho MD [address] [place] [address] [place] [address] Phone: tel: fax: Referral ID Status Reason Start Date Expiration Date Visits Re quested Visits Authorized [id number] Closed 11/16/2021 11/17/2023 1 1 Reason for Visit * Echo (Routine) - Closed Specialty Diagnoses / Procedures Referred By Contac t Referred To Contact Radiology Diagnoses SOB (shortness of breath) Essential hypertension Chest pain, unspecified type Procedures EC ECHOCARDIOGRAM COMPLETE W DOPPLER AND COLOR FLOW MAPPING Federico Camacho MD [address] [place] [address] [place] [address] Phone: tel: fax: Referral ID Status Reason Start Date Expiration Date Visits Re quested Visits Authorized [id number] Closed 11/16/2021 11/17/2023 1 1 Encounter Details Date Type Department Care Team (Latest Contact Info) Description 01/20/2022 8:29 AM EDT Hospital Encounter [facility] [address] [place] [address] Federico Camacho MD [address] [place] [address] [address] [facility] [place] [address] SOB (shortness of breath); Essential hypertension; Chest pain, unspecified type Discharge Disposition: Home or Self Care Social [...] Jane Barajas MA documented in this encounter Medications at Time of Discharge betamethasone dipropionate (DIPROLENE) 0.05 % Top OintmentIndication s:Psoriasis APPLY TO AFFECTED AREA EVERY DAY 15 g 2 11/04/2021 fluticasone propionate (FLONASE) 50 mcg/actuation Nasl [place], SuspensionIndicati ons:Moderate persistent asthma, uncomplicated SPRAY 1 SPRAY INTO EACH NOSTRIL EVERY DAY 32 mL 1 11/04/2021 Nebulizer Accessories (ALL FLOW 4000 KIT) [facility] equivalent 1 Each 0 06/27/2012 albuterol (PROVENTIL HFA;VENTOLIN HFA) 90 mcg/actuation Inhl HFA Aerosol InhalerIndications :Encounter for medication refill INHALE 1 TO 2 PUFFS EVERY 4 HOURS NEEDED FOR WHEEZING. 6.7 Each 1 11/04/2021 2 budesonide-formote roL (SYMBICORT) 160-4.5 mcg/actuation Inhl HFA Aerosol Inhaler Inhale 2 Puffs into the lungs 2 times daily. 1 Each 6 12/02/2021 2 losartan (COZAAR) 50 mg Oral TabletIndications: Essential hypertension TAKE 1 TABLET BY MOUTH TWICE A DAY 60 Tablet 1 01/10/2022 2 montelukast (SINGULAIR) 10 mg Oral TabletIndications: Moderate persistent asthma without complication TAKE 1 TABLET BY MOUTH EVERY DAY AT NIGHT 90 Tablet 11/04/2021 2 tadalafiL (CIALIS) 5 mg Oral TabletIndications: BPH without urinary obstruction TAKE 1 TAB BY MOUTH NEEDED. FOR ERECTILE DYSFUNCTION (NOT COVERED) 90 Tablet 2 10/18/2021 3 tamsulosin (FLOMAX) 0.4 mg Oral CapsuleIndications :BPH without urinary obstruction TAKE 1 CAPSULE BY MOUTH EVERY DAY AT NIGHT 90 Capsule 1 11/18/2021 3 documented as of this encounter Discharge Disposition Disposition Code Departure Means Destination Home or Self Care documented in this encounter Plan of Treatment Upcoming Encounters Date Type Department Care Team (Late st Contact Info) Description 06/28/2024 9:40 AM EST Clinical Support [facility] [address] [place] [address] 11/19/2024 1:40 PM EDT Office Visit SEP Neurology [facility] [address] [place] [address] Lyndsay Brewer [address] [place] [address] documented as of this encounter [...] Procedure Name Priority Date/Time Associated Diagnosis Comments EC ECHOCARDIOGRAM COMPLETE W DOPPLER AND COLOR FLOW MAPPING Routine 01/20/2022 10:29 AM EDT SOB (shortness of breath) Essential hypertension Chest pain, unspecified type documented in this encounter Results * EC ECHOCARDIOGRAM COMPLETE W DOPPLER AND COLOR FLOW MAPPING (01/20/2022 10:29 AM EDT) LV DIASTOLIC PLAX 5.43 cm PYRAMIS Ejection Fraction 55% PYRAMIS MITRAL REGURGITATION trace PYRAMIS AORTIC STENOSIS no PYRAMIS Anatomical Region Laterality Modality Electrocardiogra phy 01/20/2022 9:52 AM EDT Impressions 01/20/2022 4:56 PM EDT Conclusions ??* Left ventricular chamber dimension is normal. ??* Left ventricular function is low normal with an estimated ejection fraction of 55%. ??* The left ventricular diastolic function is normal. ??* Global longitudinal strain of the left ventricle is -16.0 %. ??* Right ventricular systolic function is normal. ??* Estimated pulmonary artery pressure is 27 mmHg, consistent with no pulmonary hypertension. Narrative Procedure Note Federico Camacho MD - 01/20/2022 IMPRESSION Conclusions * Left ventricular chamber dimension is normal. * Left ventricular function is low normal with an estimated ejection fraction of 55%. * The left ventricular diastolic function is normal. * Global longitudinal strain of the left ventricle is -16.0 %. * Right ventricular systolic function is normal. * Estimated pulmonary artery pressure is 27 mmHg, consistent with no pulmonary hypertension. Federico Camacho MD IMG ECHO ORDERABLES Final Result documented in this encounter Visit Diagnoses Diagnosis SOB (shortness of breath) Shortness of breath Essential hypertension Unspecified essential hypertension Chest pain, unspecified type documented in this encounter Care Teams Emergency Medical Service Coordinator Relationship Specialty Start Date End Date Steffanie Fulton APRN [email or web address] [place] [address] PCP - General Nurse Practitioner 07/26/21 documented as of this encounter
--- OUTSIDE RECORDS SUMMARY | 2024-05-29 15:39 | XMS_ITS | Encounter Summary ---
Author Organization [facility] [place] [address] Care Team Providers Care Integrative Medicine Physician Name Role Phone Steffanie Fulton APRN Primary Care Provider +1- [phone] Encounter Details Date Type Department Care Team (Latest Contact Info) Description 12/14/2021 Travel Social History Tobacco Use Types Packs/Day [...] Assessment Author No 10/07/2020 8:08 AM EDT Jnae Garrido MA * Does this person have [...] [facility] [address] [place] [phone] 11/19/2024 1:40 PM EDT Office Visit SEP Neurology [facility] [address] [place] [address] Lyndsay Brewer DO [address] [place] [address] documented as of this encounter Goals Goal [...] on filedocumented in this encounter Care Teams Integrative Medicine Physician Relationship Specialty Start Date End Date Steffanie Fulton APRN [address] [place] [address] PCP - General Nurse Practitioner 07/26/21 documented as of this encounter
--- OUTSIDE RECORDS SUMMARY | 2024-05-29 15:39 | XMS_ITS | Encounter Summary ---
Author Organization [place] [address] Care Team Providers Care Plumber Apprentice Name Role Phone Steffanie Fulton APRN Primary Care Provider [phone] Reason for Visit * Reason Comments Sore Throat Encounter Details Date Type Department Care Team (Late st Contact Info) Description 01/28/2022 8:45 AM EDT Office Visit [facility] [place] [address] [place] [phone] Ligia Wiley MD [address] [place] [address] Strep pharyngitis (Primary Dx); Essential hypertension; Generalized osteoarthritis of multiple sites Social History Tobacco Use Types Packs/Day Years [...] Sign Reading Time Taken Comments Blood Pressure 140/88 01/28/2022 8:35 AM EDT Pulse 70 01/28/2022 8:35 AM EDT Temperature 37.8 ??C (100 ??F) 01/28/2022 8:35 AM EDT Respiratory Rate - - Oxygen Saturation 91% 01/28/2022 8:35 AM EDT Inhaled Oxygen Concentration - - Weight 99.8 kg (220 lb) 01/28/2022 8:35 AM EDT Height 170.2 cm (5' 7 ) 01/28/2022 8:35 AM EDT Body Mass Index 34.46 01/28/2022 8:35 AM EDT documented in this encounter Functional [...] 2 times daily. 60 Capsule 11 01/28/2022 3 hydroCHLOROthiazide (MICROZIDE) 12.5 mg Oral CapsuleIndications:E ssential hypertension Take 1 Capsule by mouth daily. 90 Capsule 1 01/28/2022 3 amoxicillin-clavulan ate (AUGMENTIN) 875-125 mg Oral TabletIndications:St rep pharyngitis Take 1 Tablet by mouth 2 times daily. 14 Tablet 01/28/2022 2 amLODIPine (NORVASC) 5 mg Oral TabletIndications:Es sential hypertension Take 1 Tablet by mouth daily. 90 Tablet 1 01/28/2022 3 documented in this encounter Progress Notes * Ligia Wiley MD - 01/28/2022 8:45 AM EDT Vitals: 01/28/22 0835 BP: 140/88 Pulse: 70 Temp: 100 ??F (37.8 ??C) SpO2: 91% Weight: 220 lb (99.8 kg) Height: 5' 7 (1.702 m) SUBJECTIVE: Chief Complaint Patient presents with ??? Sore Throat HPI: Sore throat: Zuhair Whitlock is a 56 y.o. male complaining of mild sore throat for 1 days. Other sx's: no, no nasal congestion, swollen glands, fever or cough. Nausea or vomiting: no Improvement with otc medications: no Recent exposure to someone with proven streptococcal pharyngitis: yes. Exposure to mono: no. Arthritis: Patient was started on Mobic for his arthritis. He states this bothers his stomach. He would like to switch back to Celebrex. Patient has arthritis in his knees bilaterally. He has had knee surgeries and sees Ortho. Hypertension: Home reporting of hypertension was reviewed at time of visit. Zuhair denies any episodes of dizziness, lightheadedness, presyncope, syncope, headache, or chest pain. Zuhair does not report any new symptoms of possible hypertension sequelae. The patient reports that he is not having significant issues or side effects of current medications/treatments. Review of Systems HENT: Positive for sore throat. Respiratory: Negative for shortness of breath. Cardiovascular: Negative for chest pain. Musculoskeletal: Positive for arthralgias. Neurological: Negative for dizziness, light-headedness and headaches. OBJECTIVE: Physical Exam Constitutional: General: He is not in acute distress. Appearance: He is well-developed. HENT: Head: Normocephalic and atraumatic. Mouth/Throat: Mouth: Mucous membranes are moist. Pharynx: Posterior oropharyngeal erythema present. No oropharyngeal exudate. Eyes: Conjunctiva/sclera: Conjunctivae normal. Pupils: Pupils are [...] Cranial Nerves: No cranial nerve deficit. Psychiatric: Behavior: Behavior normal. Assessment Diagnoses and all orders for this visit: Strep pharyngitis - POCT RAPID STREP A - amoxicillin-clavulanate (AUGMENTIN) 875-125 mg Oral Tablet; Take 1 Tablet by mouth 2 times daily.Dispense: 14 Tablet; Refill: 0 Essential hypertension Comments: At goal Orders: - amLODIPine (NORVASC) 5 mg Oral Tablet; Take 1 Tablet by mouth daily. Dispense: 90 Tablet; Refill:1 - hydroCHLOROthiazide (MICROZIDE) 12.5 mg Oral Capsule; Take 1 Capsule by mouth daily. Dispense: 90Capsule; Refill: 1 Generalized osteoarthritis of multiple sites - celecoxib (CELEBREX) 200 mg Oral Capsule; Take 1 Capsule by mouth 2 times daily. Dispense: 60 Capsule; Refill: 11 documented in this encounter Plan of Treatment Upcoming Encounters Date Type Department Care Team (Late st Contact Info) Description 06/28/2024 9:40 AM EST Clinical Support [facility] [email or web address] [place] [phone] 11/19/2024 1:40 PM EDT Office Visit [facility] [address] [place] [address] Lyndsay Brewer DO [address] [place] [address] documented as of this encounter [...] Name Priority Date/Time Associated Diagnosis Comments POCT RAPID STREP A Routine 01/28/2022 11 :31 AM EDT Strep pharyngitis documented in this encounter Results * (ABNORMAL) POCT RAPID STREP A (01/28/2022 11:31 AM EDT) Strep A Ag Positive( A) None Detected Pos/Neg SEP OFFICE Lot Number SEP OFFICE Expiration Date SEP OFFICE SeriAl # SEP OFFICE Control Line Yes YES/NO SEP OFFICE 01/28/2022 11:3 1 AM EDT us Ligia Wiley MD POINT OF CARE TEST ORDERABLES Final Result SEP OFFICE documented in this encounter Visit Diagnoses Diagnosis Strep pharyngitis- Primary Streptococcal sore throat Essential hypertension Unspecified essential hypertension Generalized osteoarthritis of multiple sites Generalized osteoarthrosis, involving multiple sites documented in this encounter Discontinued Medications Medication Sig Discontinue Reason Start Date End Da te amoxicillin-clavulanate (AUGMENTIN) 875-125 mg Oral TabletIndications:Acute bacterial sinusitis Take 1 Tablet by mouth 2 times daily. DELETE- Entered in Error 12/14/2021 01/28/2022 predniSONE (DELTASONE) 20 mg Oral TabletIndications:Cough Take 1 Tablet by mouth 2 times daily. DELETE- Entered in Error 10/04/2021 01/28/2022 levoFLOXacin (LEVAQUIN) 500 mg Oral Tablet DELETE- Entered in Error 10/18/2021 01/28/2022 amLODIPine (NORVASC) 5 mg Oral TabletIndications:Essen tial hypertension TAKE 1 TABLET BY MOUTH EVERY DAY Reorder 10/28/2021 01/28/2022 hydroCHLOROthiazide (MICROZIDE) 12.5 mg Oral Capsule TAKE 1 CAPSULE BY MOUTH EVERY DAY Reorder 11/04/2021 01/28/2022 celecoxib (CELEBREX) 200 mg Oral Capsule Reorder 06/28/2021 01/28/2022 documented as of this encounter Care Teams Plumber Apprentice Relationship Specialty Start Date End Date Steffanie Fulton APRN [address] [facility] [place] [address] PCP - General Nurse Practitioner 07/26/21 documented as of this encounter
--- OUTSIDE RECORDS SUMMARY | 2024-05-29 15:39 | XMS_ITS | Encounter Summary ---
Author Organization [place] [address] Care Team Providers Care Military Pay Technician Name Role Phone Steffanie Fulton APRN Primary Care Provider [phone]- [phone] Reason for Referral * Echo (Routine) - Closed Specialty Diagnoses / Procedures Referred By Contac t Referred To Contact Radiology Diagnoses SOB (shortness of breath) Essential hypertension Chest pain, unspecified type Procedures EC ECHOCARDIOGRAM COMPLETE W DOPPLER AND COLOR FLOW MAPPING Fermin Camacho MD [address] [place] [address] [place] [address] Phone: tel: fax: Referral ID Status Reason Start Date Expiration Date Visits Re quested Visits Authorized [id number] Closed 11/16/2021 11/17/2023 1 1 * Stress (Routine) - Closed Specialty Diagnoses / Procedures Referred By Contac t Referred To Contact Radiology Diagnoses SOB (shortness of breath) Procedures ST STRESS TEST Fermin Santillan MD [address] [place] [address] [place] [address] Phone: tel: fax: Referral ID Status Reason Start Date Expiration Date Visits Re quested Visits Authorized [id number] Closed 11/16/2021 11/17/2023 1 1 * Nuclear Medicine (Routine) - Closed Specialty Diagnoses / Procedures Referred By Contac t Referred To Contact Radiology Diagnoses SOB (shortness of breath) Procedures NM MYOCARDIAL PERFUSION SPECT STRESS AND REST Fermin Camacho MD [address] [place] [address] [place] [address] Phone: tel: fax: Referral ID Status Reason Start Date Expiration Date Visits Re quested Visits Authorized [id number] Closed 11/16/2021 11/17/2023 5 5 Reason for Visit * Reason Comments Follow-up 6 month * Consultation (Routine) - Closed Specialty Diagnoses / Procedures Referred By Gus kunz Referred To Contact Cardiology Diagnoses Coronary artery disease due to calcified coronary lesion Marcela De Leon MD Pelaez, Aki Martinez MD [address] [place] [address] Phone: tel: fax: Referral ID Status Reason Start Date Expiration Date Visits Re quested Visits Authorized [id number] Closed 11/01/2021 11/01/2022 99 99 Encounter Details Date Type Department Care Team (Late st Contact Info) Description 11/16/2021 8:30 AM EDT [place] [address] Fermin Camacho MD [address] [place] [address] [place] [address] SOB (shortness of breath) (Primary Dx); Essential hypertension; Chest pain, unspecified type Social History Tobacco Use Types Packs/Day Years [...] suspected to have Coronavirus/COVID-19? No / Unsure 11/15/2021 5:14 PM EDT documented as of this encounter Last Filed Vital Signs Vital Sign Reading Time Taken Comments Blood Pressure - - Pulse - - Temperature - - Respiratory Rate - - Oxygen Saturation - - Inhaled Oxygen Concentration - - Weight - - Height 170.2 cm (5' 7 ) 11/16/2021 8:28 AM EDT Body Mass Index - - documented in this encounter Functional Status * Is the person deaf or does he/she have serious difficulty hearing? Answer Date of Assessment Author No 10/07/2020 8:08 AM EDT Nikki Garrido MA * Is the person blind or does he/she have serious difficulty seeing even when wearing glasses? Answer Date of Assessment Author No 10/07/2020 8:08 AM EDT Nikki Garrido MA * Does this person have serious difficulty walking or climbing stairs? Answer Date of Assessment Author Yes 10/07/2020 8:08 AM Nikki Barajas MA * Does this person have difficulty dressing or bathing? Answer Date of Assessment Author No 10/07/2020 8:08 AM EDT Nikki Garrido MA * Because of a physical, mental or emotional condition, does this person have difficulty doing errands alone such as visiting a doctor's office or shopping? Answer Date of Assessment Author No 10/07/2020 8:08 AM EDT Nikki Garrido MA documented as of this encounter [...] Tablet by mouth nightly. 30 Tablet 11 11/16/2021 12/06/2022 documented in this encounter Progress Notes * Fermin Camacho MD - 11/16/2021 8:30 AM EDT PATIENT: Zuhair Whitlock, :1965, , CSN: [id number] PCP: Steffanie Fulton APRN Date:11/16/2021 at 1:05 PM I would like to thank No att. providers found for requesting me to see your Zuhair Whitlock in consultation. HPI: Patient is a 56 y.o. male who presents for atherosclerotic heart disease. Patient has past medical history significant for irritable bowel syndrome hypertension atherosclerotic heart disease. Patient had a CT scan to look at his lungs showed moderate calcification. Patient does report some cramping in his left chest. But not necessarily with activity and patient can be active without having the pain. He does report shortness of breath over the last 3 years but he felt that was because he was getting older and he also has asthma. He does report some intermittent swelling caffeine use smokeless tobacco joint pain back pain bruising high blood pressure poor circulation arthritis leg pain and difficulty urinating Social history: Patient uses smokeless tobacco does not drink is Family history: Mother had heart disease at a young age Cardiac risk factors: Patient's not diabetic is hypertensive Cardiac surgeries: None ROS ROS All other review of systems was negative or noncontributory, please see review of systems sheet Physical Exam Ht 5' 7 (1.702 m) BMI 32.89 kg/m?? , General: The patient appears in no apparent distress. HEENT: patient is normocephalic and atraumatic. The eyes are anicteric eyelids and conjunctiva werenormal. Mucous membranes moist Neck: Supple no JVD or bruits. Skin: Warm and dry Heart: Regular rate and rhythm no S3 or S4 heard. No murmurs rubs. PMI diffuse Lungs: Clear.breathing easy Back: no significant kyphosis Abdomen: Positive bowel sounds soft nontender. Extremities: no cyanosis clubbing or edema Neuro: Patient alert and oriented Mood: Fine Motor tone: Moving all extremities Pulses: Radial 2+ posterior tibialis 1+ and symmetrical Assessment and Plan Labs, , ECG, VS and Medication reviewed 1. Atherosclerotic heart disease. Moderate calcification on CT scan. Patient unfortunately has family history of mother having heart problems at a very young age. Also hypertensive. Will get an echo to look at LV function we will get a stress test rule out active ischemia. Patient told what to watch for. 2. Hyperlipidemia. Start Lipitor 40 mg a day. Recheck cholesterol and LFTs in 8 weeks. DC Pravachol. I do not think it is going to be able to do the trick 3. History of asthma 4. History of irritable bowel syndrome 5. Hypertension control 6. Smokeless tobacco use. Encouraged to Thank you for the cardiology consult and allowing me to participate with the care of Zuhair Whitlock. Last echo No results found for this or any previous visit. No results found for this or any previous visit. No results found for this or any previous visit. Last vascular study No results found for this or any previous visit. No valid procedures specified. Last stress No results found for this or any previous visit. No results found for this or any previous visit. Last Holter No results found for this or any previous visit. Last LHC No results found for this or any previous visit. Vitals: Vitals: 11/16/21 0828 Height: 5' 7 (1.702 m) 24HR INTAKE/OUTPUT: @IOBRIEF@ Lab Results Component Value Date WBC 6.3 10/29/2021 HGB 13.7 10/29/2021 HCT 41.5 10/29/2021 MCV 99.5 10/29/2021 PLT 258 10/29/2021 Lab Results Component Value Date CREATININE 1.03 10/29/2021 BUN 16 10/29/2021 NA 139 10/29/2021 K 4.3 10/29/2021 CL 103 10/29/2021 CO2 26 10/29/2021 Chemistry Component Value Date/Time NA 139 10/29/2021 0852 NA 143 10/14/2015 0838 K 4.3 10/29/2021 0852 K 4.8 10/14/2015 0838 CL 103 10/29/2021 0852 CL 106 10/14/2015 0838 CO2 26 10/29/2021 0852 CO2 25 10/14/2015 0838 BUN 16 10/29/2021 0852 BUN 15 10/14/2015 0838 CREATININE 1.03 10/29/2021 0852 CREATININE 1.08 10/14/2015 0838 GLU 111 (H) 10/29/2021 0852 GLU 93 10/14/2015 0838 Component Value Date/Time CALCIUM 9.9 10/29/2021 0852 CALCIUM 9.7 10/14/2015 0838 ALKPHOS 103 10/29/2021 0852 ALKPHOS 80 10/14/2015 0838 AST 31 10/29/2021 0852 AST 20 10/14/2015 0838 ALT 36 10/29/2021 0852 ALT 18 10/14/2015 0838 Lab Results Component Value Date CHOLESTEROL 194 08/02/2021 CHOLESTEROL 209 (H) 05/21/2021 CHOLESTEROL 195 01/20/2021 Lab Results Component Value Date HDL 37 (L) 08/02/2021 HDL 39 (L) 05/21/2021 HDL 38 (L) 01/20/2021 Lab Results Component Value Date LDLCALC 130 (H) 08/02/2021 LDLCALC 152 (H) 05/21/2021 LDLCALC 135 (H) 01/20/2021 Lab Results Component Value Date TRIG 147 08/02/2021 TRIG 98 05/21/2021 TRIG 112 01/20/2021 No results found for: CHOLHDL Scheduled Meds: ??? bupivacaine HCl 2 mL Intra-articular ??? triamcinolone acetonide 40 mg Intra-articular Continuous Infusions: Past Medical History: Diagnosis Date ??? Arthritis [...] REVISION-ANTERIOR ; Surgeon: Augie Ramires MD; Location: [facility]; Service: Orthopedics ??? KNEE SURGERY LEFT ACL RECONSTRUCTION ??? KNEE SURGERY LEFT ARTHROSCOPIES IRRAGATION X 7 FOR INFECTION ??? KNEE SURGERY RIGHT ARTHROSCOPIC MENICUS REPAIR ??? SHOULDER ARTHROSCOPY Right 11/29/2019 RIGHT SHOULDER ARTHROSCOPIC ROTATOR CUFF REPAIR DECOMPRESSION ACROMIOPLASTY, ACROMIOCLAVICULAR JOINT EXCISION; Surgeon: Kenny Loja MD; Location: [facility]; Service: Orthopedics ??? TOTAL HIP ARTHROPLASTY [...] Grandfather ??? Cancer Paternal Grandmother Social History Tobacco Use ??? Smoking status: Never Smoker ??? Smokeless tobacco: Current User Types: Snuff Substance Use Topics ??? Alcohol use: No Current Outpatient Medications on File Prior to Visit Medication Sig Dispense Refill ??? ADVAIR DISKUS 500-50 mcg/dose Inhl Disk with Device TAKE 1 PUFF BY MOUTH TWICE A DAY 180 Each 1 ??? albuterol (PROVENTIL HFA;VENTOLIN HFA) 90 mcg/actuation [...] MOUTH EVERY DAY 90 Tablet 0 ??? betamethasone dipropionate (DIPROLENE) 0.05 % Top Ointment APPLY TO AFFECTED AREA EVERY DAY 15 g 2 ??? celecoxib (CELEBREX) 200 mg Oral Capsule ??? colestipoL (COLESTID) 1 gram Oral Tablet TAKE 2 TABLETS BY MOUTH TWICE A DAY 360 Tablet 3 ??? diclofenac (VOLTAREN) 1 % Top Gel APPLY 2 GRAMS TOPICALLY 4 TIMES DAILY DIRECTED. 100 g 1 ??? fluticasone propionate (FLONASE) 50 mcg/actuation Nasl Norris, Suspension SPRAY 1 SPRAY INTO EACH NOSTRIL EVERY DAY 32 mL 1 ??? hydroCHLOROthiazide (MICROZIDE) 12.5 mg Oral Capsule TAKE 1 CAPSULE BY MOUTH EVERY DAY 90 Capsule 0 ??? levoFLOXacin (LEVAQUIN) 500 mg Oral Tablet ??? losartan (COZAAR) 50 mg Oral Tablet TAKE 1 TABLET BY MOUTH TWICE A DAY 60 Tablet 0 ??? montelukast (SINGULAIR) 10 mg Oral Tablet TAKE 1 TABLET BY MOUTH EVERY DAY AT NIGHT 90 Tablet 0 ??? Nebulizer Accessories (ALL FLOW 4000 KIT) [facility] Formulary equivalent 1 Each 0 ??? tadalafiL (CIALIS) 5 mg Oral Tablet TAKE 1 TAB BY MOUTH NEEDED. FOR ERECTILE DYSFUNCTION (NOT COVERED) 90 Tablet 2 ??? tamsulosin (FLOMAX) 0.4 mg Oral Capsule TAKE 2 CAPSULES BY MOUTH NIGHTLY 180 Capsule 1 ??? predniSONE (DELTASONE) 20 mg Oral Tablet Take 1 Tablet by mouth 2 times daily. (Patient not taking: Reported on 11/16/2021) 14 Tablet 0 Current Facility-Administered Medications on File Prior to Visit Medication Dose Route Frequency Provider Last Rate Last Admin ??? bupivacaine HCl (MARCAINE) 0.5 % (5 mg/mL) injection 2 mL 2 mL Intra- articular Augie Ramires MD 2 mL at 08/16/21 0945 ??? triamcinolone acetonide (KENALOG-40) injection 40 mg 40 mg Intra-articular Augie Ramires MD 40 mg at 08/16/21 0945 Current Outpatient Medications Medication Sig Dispense Refill ??? ADVAIR DISKUS 500-50 mcg/dose Inhl Disk with Device TAKE 1 PUFF BY MOUTH TWICE A DAY 180 Each 1 ??? albuterol (PROVENTIL HFA;VENTOLIN HFA) 90 mcg/actuation [...] MOUTH EVERY DAY 90 Tablet 0 ??? betamethasone dipropionate (DIPROLENE) 0.05 % Top Ointment APPLY TO AFFECTED AREA EVERY DAY 15 g 2 ??? celecoxib (CELEBREX) 200 mg Oral Capsule ??? colestipoL (COLESTID) 1 gram Oral Tablet TAKE 2 TABLETS BY MOUTH TWICE A DAY 360 Tablet 3 ??? diclofenac (VOLTAREN) 1 % Top Gel APPLY 2 GRAMS TOPICALLY 4 TIMES DAILY DIRECTED. 100 g 1 ??? fluticasone propionate (FLONASE) 50 mcg/actuation Nasl Norris, Suspension SPRAY 1 SPRAY INTO EACH NOSTRIL EVERY DAY 32 mL 1 ??? hydroCHLOROthiazide (MICROZIDE) 12.5 mg Oral Capsule TAKE 1 CAPSULE BY MOUTH EVERY DAY 90 Capsule 0 ??? levoFLOXacin (LEVAQUIN) 500 mg Oral Tablet ??? losartan (COZAAR) 50 mg Oral Tablet TAKE 1 TABLET BY MOUTH TWICE A DAY 60 Tablet 0 ??? montelukast (SINGULAIR) 10 mg Oral Tablet TAKE 1 TABLET BY MOUTH EVERY DAY AT NIGHT 90 Tablet 0 ??? Nebulizer Accessories (ALL FLOW 4000 KIT) [facility] Formulary equivalent 1 Each 0 ??? tadalafiL (CIALIS) 5 mg Oral Tablet TAKE 1 TAB BY MOUTH NEEDED. FOR ERECTILE DYSFUNCTION (NOT COVERED) 90 Tablet 2 ??? tamsulosin (FLOMAX) 0.4 mg Oral Capsule TAKE 2 CAPSULES BY MOUTH NIGHTLY 180 Capsule 1 ??? atorvastatin (LIPITOR) 40 mg Oral Tablet Take 1 Tablet by mouth nightly. 30 Tablet 11 ??? predniSONE (DELTASONE) 20 mg Oral Tablet Take 1 Tablet by mouth 2 times daily. (Patient not taking: Reported on 11/16/2021) 14 Tablet 0 Current Facility-Administered Medications Medication Dose Route Frequency Provider Last Rate Last Admin ??? bupivacaine HCl (MARCAINE) 0.5 % (5 mg/mL) injection 2 mL 2 mL Intra- articular Augie Ramires MD 2 mL at 08/16/21 0945 ??? triamcinolone acetonide (KENALOG-40) injection 40 mg 40 mg Intra-articular Augie Ramires MD 40 mg at 08/16/21 0945 Allergies Allergen Reactions ??? Abilify [Aripiprazole] Other (See Comments) convulsions ??? Unable To Assess Patient does not take any narcotic medications Signed: Fermin Camacho MD 11/16/2021 1:05 PM This chart was completed using voice recognition technology and may contain unintended errors documented in this encounter Plan of Treatment Upcoming Encounters Date Type Department Care Team (Late st Contact Info) Description 06/28/2024 9:40 AM EST Clinical Support [facility] [place] [address] [place] [address] 11/19/2024 1:40 PM EDT Office Visit [facility] Neurology [facility] [address] [place] [address] Lyndsay Brewer DO [address] [place] [address] Scheduled Orders Name Type Priority Associated Diagnoses Orde r Schedule HEPATIC FUNCTION PANEL Lab Routine SOB (shortness of breath) 1 Occurrences starting 11/16/2021 until 11/16/2022 LIPID PANEL REFLEX Lab Routine SOB (shortness of breath) 1 Occurrences starting 11/16/2021 until 11/16/2022 documented as of this encounter Goals Goal Patient Goal Type Associated Problems Recent Progress Patient-Stated? Author Blood Pressure < 140/90 Blood Pressure 134/84(2023 1:16 PM EST) No Yana Choi RMA Eat better, exercise, reach an ideal body weight General No Yana Choi RMA Stay Tobacco Free Lifestyle No Yana Choi RMA documented as of this encounter Results * NM MYOCARDIAL PERFUSION SPECT STRESS AND REST (01/20/2022 11:16 AM EDT) Anatomical Region Laterality Modality Nuclear Medicine 01/20/2022 9:03 AM EDT Impressions 01/20/2022 3:15 PM EDT Conclusions ??* Mild heterogeneity of isotope uptake noted but not in a pattern consistent with ischemia. ??* Ejection fraction is normal. ??* No significant reversible defect. Narrative Procedure Note Fermin Camacho MD - 01/20/2022 IMPRESSION Conclusions * Mild heterogeneity of isotope uptake noted but not in a patternconsistent with ischemia. * Ejection fraction is normal. * No significant reversible defect. us Fermin Camacho MD IMG NM CARDIAC ORDERABLES Final Result * ST STRESS TEST LEXISCAN (01/20/2022 10:31 AM EDT) Anatomical Region Laterality Modality Cardiac Stress T esting 01/20/2022 9:44 AM EDT Impressions 01/20/2022 11:35 AM EDT ?[facility] ? Test Date: ?2022-01-20 Pat Name: ? ZUHAIR WHITLOCK ?Department: ?? DEPID ? Room: ? Gender: ? Male ? Counseling Case Manager: ?? Cynthia Pressley RN : ?1965 ? Requested By: FERMIN Doan Order Number: [id number] ?Reading MD: ?? Evaristo Barrera MD ? Interpretive Statements ?Stress Test Lexiscan Ordering Diagnosis: Abnormal lung CT ?? SOB ?? Edema Resting HR: 80 Peak HR: 112 Resting B/P: 120/76 Peak B/P: 122/72 1. Lexiscan 0.4 mg was given IV push at 30 seconds into protocol. at 9:45 AM. 2. Lexiscan injection was done with low level exercise. 3. Termination of test due to protocol completion. 4. Symptoms: SOB 5. Aminophylline was not given. 6. Nuclear Imaging reported separately. Physician Interpretation Resting ECG: Arrhythmias: Conclusion: NONDIAGNOSTIC ST CHANGES WITH LEXISCAN NUCLEAR PENDING Electronically Signed On 01-20-2022 11:35:04 EDT by Evaristo Barrera MD Narrative Procedure Note Clara Barrera MD - 01/20/2022 IMPRESSION [facility] Test Date: 2022-01-20 Pat Name: ZUHAIR WHITLOCK Department: DEPID Room: Gender: Male Counseling Case Manager: Cynthia Pressley RN : 1965 Requested By: FERMIN Doan Order Number: [id number] Reading MD: Evaristo Barrera MD Interpretive Statements Stress Test Lexiscan Ordering Diagnosis: Abnormal lung CT SOB Edema Resting HR: 80 Peak HR: 112 Resting B/P: 120/76 Peak B/P: 122/72 1. Lexiscan 0.4 mg was given IV push at 30 seconds into protocol. at9:45 AM. 2. Lexiscan injection was done with low level exercise. 3. Termination of test due to protocol completion. 4. Symptoms: SOB 5. Aminophylline was not given. 6. Nuclear Imaging reported separately. PhysicianInterpretation Resting ECG: Arrhythmias: Conclusion: NONDIAGNOSTIC ST CHANGES WITH LEXISCAN NUCLEAR PENDING Electronically Signed On 01-20-2022 11:35:04 EDT by Evaristo Barrera MD us Fermin Camacho MD IMG STRESS ORDERABLES Karina l Result * EC ECHOCARDIOGRAM COMPLETE W DOPPLER AND [...] with no pulmonary hypertension. Narrative Procedure Note Fermin Camacho MD - 01/20/2022 IMPRESSION Conclusions * [...] 27 mmHg, consistent with no pulmonary hypertension. us Fermin Camacho MD IMG ECHO ORDERABLES Final Result documented in this encounter Visit Diagnoses Diagnosis SOB (shortness of breath)- Primary Shortness of breath Essential hypertension Unspecified essential hypertension Chest pain, unspecified type SOB (shortness of breath) Shortness of breath Essential hypertension Unspecified essential hypertension Chest pain, unspecified type SOB (shortness of breath) Shortness of breath SOB (shortness of breath) Shortness of breath documented in this encounter Discontinued Medications Medication Sig Discontinue Reason Start Date End Da te pravastatin (PRAVACHOL) 20 mg Oral TabletIndications:Pure hypercholesterolemia TAKE 1 TABLET BY MOUTH EVERY DAY IN THE EVENING Cancelled by 06/14/2021 11/16/2021 documented as of this encounter Care Teams Military Pay Technician Relationship Specialty Start Date End Date Steffanie Fulton APRN [address] [place] [address] PCP - General Nurse Practitioner 07/26/21 documented as of this encounter
--- OUTSIDE RECORDS SUMMARY | 2024-05-29 15:39 | XMS_ITS | Encounter Summary ---
Author Organization [facility] [place] [address] Care Team Providers Care Lead Setter Name Role Phone Steffanie Fulton APRN Primary Care Provider [phone]- [phone] Encounter Details Date Type Department Care Team (Latest Contact Info) Description 11/12/2021 Travel Social History Tobacco Use Types Packs/Day [...] suspected to have Coronavirus/COVID-19? No / Unsure 11/12/2021 8:34 AM EDT documented as of this encounter [...] Clinical Support [facility] [address] [place] [phone] 11/19/2024 1:40 PM EDT Office Visit [facility] Neurology [facility] [address] [place] [address] Lyndsay Brewer DO [address] [place] [address] documented as of this encounter Goals Goal [...] on filedocumented in this encounter Care Teams Lead Setter Relationship Specialty Start Date End Date Steffanie Fulton APRN [address] [place] [address] PCP - General Nurse Practitioner 07/26/21 documented as of this encounter
--- OUTSIDE RECORDS SUMMARY | 2024-05-29 15:39 | XMS_ITS | Encounter Summary ---
Author Organization [place] [address] Care Team Providers Care Engraver Rubber Name Role Phone Steffanie Fulton APRN Primary Care Provider [phone]- [phone] Reason for Visit * Reason Onset Date Comments Other 11/12/2021 Nodule of right lung. Moderate persistent asthma without complication. COPD, moderate. Please call patient to schedule new Pulm referral appointment. Encounter Details Date Type Department Care Team (Late Contact Info) Description 11/12/2021 Telephone [facility] Pulmonology [facility] [address] [place] [phone] Wally Rowe MD [address] [place] [address] Other (Nodule of right lung. Moderate persistent asthma without complication. COPD, moderate. Please call patient to schedule new Pulm referral appointment.) Social History Tobacco Use Types Packs/Day Years [...] encounter Miscellaneous Notes * Telephone Encounter - Bradley Quiros MA - 11/12/2021 11:52 AM EDT Done documented in this encounter Plan of Treatment Upcoming Encounters Date Type Department Care Team (Late st Contact Info) Description 06/28/2024 9:40 AM EST Clinical Support [facility] [address] [place] [phone] 11/19/2024 1:40 PM EDT Office Visit [facility] Neurology [facility] [address] [place] [address] Lyndsay Brewer DO [address] [place] [address] documented as of this encounter [...] on filedocumented in this encounter Care Teams Engraver Rubber Relationship Specialty Start Date End Date Steffanie Fulton APRN [address] [place] [address] PCP - General Nurse Practitioner 07/26/21 documented as of this encounter
--- OUTSIDE RECORDS SUMMARY | 2024-05-29 15:39 | XMS_ITS | Encounter Summary ---
Author Organization [place] [address] Care Team Providers Care Chief Engineer Production Name Role Phone Steffanie Fulton APRN Primary Care Provider +1- [phone] Reason for Referral * Stress (Routine) - Closed Specialty Diagnoses / Procedures Referred By Marilyac t Referred To Contact Radiology Diagnoses SOB (shortness of breath) Procedures ST STRESS TEST Fermin Santillan MD [address] [place] [address] [place] [address] Phone: tel: fax: Referral ID Status Reason Start Date Expiration Date Visits Re quested Visits Authorized [id number] Closed 11/16/2021 11/17/2023 1 1 Reason for Visit * Stress (Routine) - Closed Specialty Diagnoses / Procedures Referred By Contac t Referred To Contact Radiology Diagnoses SOB (shortness of breath) Procedures ST STRESS TEST Fermin Santillan MD [address] [place] [address] [place] [address] Phone: tel: fax: Referral ID Status Reason Start Date Expiration Date Visits Re quested Visits Authorized [id number] Closed 11/16/2021 11/17/2023 1 1 Encounter Details Date Type Department Care Team (Latest Contact Info) Description 01/20/2022 8:30 AM EDT - 01/20/2022 11:59 PM EDT Hospital Encounter [facility]I [facility] STRESS [address] [facility] [address] [place] [address] Fermin Camacho MD [address] [facility] [address] [facility] [place] [address] SOB (shortness of breath) Discharge Disposition: Home or Self Care Social [...] 11/04/2021 fluticasone propionate (FLONASE) 50 mcg/actuation Nasl [place], SuspensionIndicati ons:Moderate persistent asthma, uncomplicated SPRAY 1 SPRAY INTO EACH NOSTRIL EVERY DAY 32 mL 1 11/04/2021 Nebulizer Accessories (ALL FLOW 4000 KIT) [facility] [place] equivalent 1 Each 0 06/27/2012 albuterol [...] or Self Care documented in this encounter Progress Notes * Cynthia Pressley RN - 01/20/2022 10:30 AM EDT Stress test procedure explained to the patient. Patient verbalized understanding of procedure and all questions answered. Patient education reinforced during and after procedure. documented in this encounter Plan of Treatment Upcoming Encounters Date Type Department Care Team (Late st Contact Info) Description 06/28/2024 9:40 AM EST Clinical Support [facility] [address] [place] [address] 11/19/2024 1:40 PM EDT Office Visit SEP Neurology [facility] [address] [place] [phone] Lyndsay Brewer DO [address] [place] [address] documented as of this encounter Goals Goal [...] Procedure Name Priority Date/Time Associated Diagnosis Comments ST STRESS TEST LEXISCAN Routine 01/20/2022 10:31 AM EDT SOB (shortness of breath) documented in this encounter Results * ST STRESS TEST LEXISCAN (01/20/2022 10:31 AM EDT) Anatomical Region Laterality Modality Cardiac Stress T esting 01/20/2022 9:44 AM EDT Impressions 01/20/2022 11:35 AM EDT ?[facility] ? Test Date: ?2022-01-20 Pat Name: ? ZUHAIR JACOBSENGABRIELA ?Department: ?? DEPID ? Room: ? Gender: ? Male ? Mottler Machine Feeder: ?? Cynthia Pressley RN : ?1965 ? Requested By: FERMIN Doan Order Number: [id number] ?Reading : ?? Evaristo Barrera MD ? Interpretive Statements [...] Note Clara Barrera MD - 01/20/2022 IMPRESSION [facility] Test Date: 2022-01-20 Pat Name: ZUHAIR WHITLOCK Department: DEPID Room: Gender: Male Mottler Machine Feeder: Cynthia Pressley RN : 1965 Requested By: FERMIN Doan Order Number: [id number] Reading MD: Evaristo Barrera MD Interpretive Statements [...] 01-20-2022 11:35:04 EDT by Evaristo Barrera MD Fermin Camacho MD IMG STRESS ORDERABLES Karina l Result documented in this encounter Visit Diagnoses Diagnosis SOB (shortness of breath) Shortness of breath documented in this encounter Administered Medications Inactive Administered Medications - up to 1 most recent administrations Medication Order MAR Action Action Date Dose Rate Site regadenoson (LEXISCAN) injection 0.4 mg 0.4 mg, Intravenous, ONCE, 1 dose, On Maritza 01/20/22 at 0900, Stress Meds, Dx: 1. SOB (shortness of breath)Indications:SOB (shortness of breath) Given 01/20/2022 9:45 AM EDT 0.4 mg documented in this encounter Orders Medications Ordered That Tone ht Not Have Been Administered Count Last Ordered Date First Ordered Date albuterol (PROVENTIL HFA; VE NTOLIN HFA) INHALER 2 Puff 1 01/20/2022 aminophylline injection 125 mg 1 01/20/2022 nitroGLYCERIN (NITROSTAT) SL tablet 0.4 mg 1 01/20/2022 sodium chloride 0.9 % 250 mL IV bolus 1 sodium chloride 0.9% IV line flush 20-50 mL 1 01/20/2022 sodium chloride 0.9% syringe 1 01/20/2022 documented in this encounter Care Teams Chief Engineer Production Relationship Specialty Start Date End Date Steffanie Fulton APRN [address] [place] [address] PCP - General Nurse Practitioner 07/26/21 documented as of this encounter
--- OUTSIDE RECORDS SUMMARY | 2024-05-29 15:39 | XMS_ITS | Encounter Summary ---
Author Organization [place] [address] Care Team Providers Care Nurse Practitioner Physician Assistant Name Role Phone Steffanie Fulton APRN Primary Care Provider +1- [phone] Reason for Visit * Reason Onset Date Comments Prior Authorization 01/28/2022 Nick Encounter Details Date Type Department Care Team ([facility] Contact Info) Description 01/28/2022 Telephone [facility] [address] [place] [address] Steffanie Fulton APRN [address] [place], [place] [id number] Prior Authorization ([employer]) Social History Tobacco Use Types Packs/Day Years [...] encounter Miscellaneous Notes * Telephone Encounter - Farzana Garrido MA - 01/28/2022 4:42 PM EDT For Prior Auth on medication call Id number is [id number] Case# [id number] Approved from 06/26/21-01/24/23 Pt informed. * Telephone Encounter - Farzana Garrido MA - 01/28/2022 8:33 AM EDT PT walked in office stating he needs a PA on his Cialis. documented in this encounter Plan of Treatment Upcoming Encounters Date Type Department Care Team (Late st Contact Info) Description 06/28/2024 9:40 AM EST Clinical Support [facility] [address] [place] [phone] 11/19/2024 1:40 PM EDT Office Visit SEP Neurology [facility] [address] [place] [phone] Lyndsay Brewer DO [address] [facility] [address] [place] [address] documented as of this encounter [...] on filedocumented in this encounter Care Teams Nurse Practitioner Physician Assistant Relationship Specialty Start Date End Date Steffanie Fulton APRN [address] [place] [phone] PCP - General Nurse Practitioner 07/26/21 documented as of this encounter
--- OUTSIDE RECORDS SUMMARY | 2024-05-29 15:39 | XMS_ITS | Encounter Summary ---
Author Organization [place] [address] Care Team Providers Care Substance Abuse Services Director Name Role Phone Steffanie Fulton APRN Primary Care Provider +1- [phone] Reason for Referral * Nuclear Medicine (Routine) - Closed Specialty Diagnoses / Procedures Referred By Contac t Referred To Contact Radiology Diagnoses SOB (shortness of breath) Procedures NM MYOCARDIAL PERFUSION SPECT STRESS AND REST Federico Camacho MD [address] [place] [address] [place] [address] Phone: tel: fax: Referral ID Status Reason Start Date Expiration Date Visits Re quested Visits Authorized [id number] Closed 11/16/2021 11/17/2023 5 5 Reason for Visit * Nuclear Medicine (Routine) - Closed Specialty Diagnoses / Procedures Referred By Contac t Referred To Contact Radiology Diagnoses SOB (shortness of breath) Procedures NM MYOCARDIAL PERFUSION SPECT STRESS AND REST Federico Camacho MD [address] [place] [address] [place] [address] Phone: tel: fax: Referral ID Status Reason Start Date Expiration Date Visits Re quested Visits Authorized [id number] Closed 11/16/2021 11/17/2023 5 5 Encounter Details Date Type Department Care Team (Latest Contact Info) Description 01/20/2022 8:29 AM EDT Hospital Encounter [facility] NUCLEAR [address] [place] [address] [address] [place] [address] Federico Camacho MD [address] [facility] [address] [place] [address] SOB (shortness of breath) Discharge Disposition: Home [...] 11/04/2021 fluticasone propionate (FLONASE) 50 mcg/actuation Nasl [place], SuspensionIndicati ons:Moderate persistent asthma, uncomplicated SPRAY 1 [...] AM EST Clinical Support [facility] [address] [place] [address] 11/19/2024 1:40 PM EDT Office Visit SEP Neurology [facility] [address] [place] [address] Lyndsay Brewer DO [address] [place] [address] documented as of this encounter [...] Procedure Name Priority Date/Time Associated Diagnosis Comments NM MYOCARDIAL PERFUSION SPECT STRESS AND REST Routine 01/20/2022 11:16 AM EDT SOB (shortness of breath) SCANNED RADIOLOGY REPORT 01/20/2022 10:41 AM EDT documented in this encounter Results * NM MYOCARDIAL PERFUSION SPECT STRESS AND REST (01/20/2022 11:16 AM EDT) Anatomical Region Laterality Modality Nuclear Medicine 01/20/2022 9:03 AM EDT Impressions 01/20/2022 3:15 PM EDT Conclusions ??* Mild heterogeneity of isotope uptake noted but not in a pattern consistent with ischemia. ??* Ejection fraction is normal. ??* No significant reversible defect. Narrative Procedure Note Federico Camacho MD - 01/20/2022 IMPRESSION Conclusions * Mild heterogeneity of isotope uptake noted but not in a patternconsistent with ischemia. * Ejection fraction is normal. * No significant reversible defect. us Federico Camacho MD IMG NM CARDIAC ORDERABLES Final Result * SCANNED RADIOLOGY REPORT (01/20/2022 10:41 AM EDT) Anatomical Region Laterality Modality Nuclear Medicine 01/20/2022 10:4 1 AM EDT us Unknown Provider IMG DIAGNOSTIC IMAGING ORDERABL ES Final Result documented in this encounter Visit Diagnoses Diagnosis SOB (shortness of breath) Shortness of breath documented in this encounter Administered Medications Inactive Administered Medications - up to 1 most recent administrations Medication Order MAR Action Action Date Dose Rate Site [id number] (MYOVIEW) injection 8-45 millicurie 8-45 millicurie, Intravenous, ONCE PRN, 1 dose, Starting on Maritza 01/20/22 at 0851, Until Maritza 01/20/22 at 0950, Radiography/Imaging, Radiology Procedure, Administration dose must be within 10% of the ordered dose for radiopharmaceutical medications., Radiology Given 01/20/2022 9:50 AM EDT 37.8 millicuries Dj-59s-qqkybqvprzj (MYOVIEW) injection 8-45 millicurie 8-45 millicurie, Intravenous, ONCE PRN, 1 dose, Starting on Maritza 01/20/22 at 0851, Until Maritza 01/20/22 at 0848, Radiography/Imaging, Radiology Procedure, Administration dose must be within 10% of the ordered dose for radiopharmaceutical medications., Radiology Given 01/20/2022 8:48 AM EDT 12.2 millicuries Right Arm documented in this encounter Care Teams Substance Abuse Services Director Relationship Specialty Start Date End Date Steffanie Fulton APRN [address] [place] [phone] PCP - General Nurse Practitioner 07/26/21 documented as of this encounter
--- OUTSIDE RECORDS SUMMARY | 2024-05-29 15:39 | XMS_ITS | Encounter Summary ---
Author Organization [facility] [place] [address] Care Team Providers Care Spa Associate Name Role Phone Steffanie Fulton APRN Primary Care Provider +1- [phone] Encounter Details Date Type Department Care Team (Latest Contact Info) Description 01/20/2022 Travel Social History Tobacco Use Types Packs/Day [...] Clinical Support [facility] [address] [place] [phone] 11/19/2024 1:40 PM EDT Office Visit SEP Neurology [facility] [address] [place] [address] Lyndsay Brewer DO [address] [place] [address] documented as of this encounter Goals Goal [...] on filedocumented in this encounter Care Teams Spa Associate Relationship Specialty Start Date End Date Steffanie Fulton APRN [address] [place] [address] PCP - General Nurse Practitioner 07/26/21 documented as of this encounter
--- OUTSIDE RECORDS SUMMARY | 2024-05-29 15:39 | XMS_ITS | Encounter Summary ---
Author Organization [place] [address] Care Team Providers Care Toll Repairer Central Office Name Role Phone Steffanie Fulton APRN Primary Care Provider +1- [phone] Reason for Referral * PFT (Routine) - Closed Specialty Diagnoses / Procedures Referred By Gus kunz Referred To Contact Diagnoses Moderate persistent asthma without complication Nodule of right lung Procedures PULMONARY FUNCTION TEST Wally Rowe MD [address] [place] [address] Phone: tel: fax: Referral ID Status Reason Start Date Expiration Date Visits Re quested Visits Authorized [id number] Closed 12/02/2021 12/02/2022 1 1 Reason for Visit * Reason Comments [facility] Follow Up Referral * Consultation (Routine) - Closed Specialty Diagnoses / Procedures Referred By Gus kunz Referred To Contact Pulmonology Diagnoses Nodule of right lung COPD, moderate (HCC) Moderate persistent asthma without complication Per Urban MD [address] [place] [address] [place] [address] Phone: tel: fax: Wally Rowe MD [address] [place] [address] Phone: tel: fax: Referral ID Status Reason Start Date Expiration Date Visits Re quested Visits Authorized [id number] Closed 11/12/2021 11/12/2022 1 1 Encounter Details Date Type Department Care Team (Latest Contact Info) Description 12/02/2021 3:00 PM EDT Office Visit SEP Pulmonology [facility] [address] [place] [address] Wally Rowe MD [address] [place] [address] Moderate persistent asthma without complication (Primary Dx); Nodule of right lung Social History Tobacco Use Types Packs/Day Years [...] Sign Reading Time Taken Comments Blood Pressure 128/80 12/02/2021 3:10 PM EDT Pulse 80 12/02/2021 3:10 PM EDT Temperature - - Respiratory Rate - - Oxygen Saturation 95% 12/02/2021 3:10 PM EDT ra at rest Inhaled Oxygen Concentration - - Weight 96.2 kg (212 lb) 12/02/2021 3:10 PM EDT Height 170.2 cm (5' 7 ) 12/02/2021 3:10 PM EDT Body Mass Index 33.2 12/02/2021 3:10 PM EDT documented in this encounter Functional [...] 2 times daily. 1 Each 6 12/02/2021 04/19/2022 documented in this encounter Progress Notes * Wally Rowe MD - 12/02/2021 3:00 PM EDT Steffanie Fulton APRN HPI Zuhair Whitlock is a 56 y.o. male who presents for consultation after referral by Dr. Federico Maria for asthma Shortness of breath better. Cough is present and dry. Wheezing is present. Dyspnea on exertion withmore than 3 blocks. Never smoked. 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 Smoking status: Never Smoker ??? Smokeless tobacco: Current User Types: Snuff Vaping Use ??? Vaping Use: Never used Substance and Sexual Activity ??? Alcohol use: No ??? 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 Sexual activity: Not on file Comment: single partner Other Topics Concern ??? Not on file Social History Narrative ??? Not on file Social Determinants of Health Financial Resource Strain: Not on file Food Insecurity: Not on file Transportation Needs: Not on file Physical Activity: Not on file Stress: Not on file Social Connections: Not on file Intimate Partner Violence: Not on file Housing Stability: Not on file ALLERGIES Allergies Allergen Reactions ??? Abilify [Aripiprazole] Other (See Comments) convulsions ??? Unable To Assess Patient does not take any narcotic medications MEDICATIONS Current Outpatient Medications Medication Sig Dispense Refill ??? albuterol (PROVENTIL [...] MOUTH EVERY DAY 90 Tablet 0 ??? atorvastatin (LIPITOR) 40 mg [...] ??? fluticasone propionate (FLONASE) 50 mcg/actuation Nasl [place], Suspension SPRAY 1 SPRAY INTO EACH NOSTRIL [...] ??? Nebulizer Accessories (ALL FLOW 4000 KIT) [facility] [place] 1 Each 0 ??? predniSONE (DELTASONE) 20 mg Oral Tablet Take 1 Tablet by mouth 2 times daily. (Patient not taking: Reported on 11/16/2021) 14 Tablet 0 ??? tadalafiL (CIALIS) 5 mg Oral Tablet TAKE 1 TAB BY MOUTH NEEDED. FOR ERECTILE DYSFUNCTION (NOT COVERED) 90 Tablet 2 ??? tamsulosin (FLOMAX) 0.4 mg Oral Capsule TAKE 1 CAPSULE BY MOUTH EVERY DAY AT NIGHT 90 Capsule 1 Current Facility-Administered Medications Medication Dose Route Frequency Provider Last Rate Last Admin ??? bupivacaine HCl (MARCAINE) 0.5 % (5 mg/mL) injection 2 mL 2 mL Intra- articular Augie Ramires MD 2 mL at 08/16/21 0945 ??? triamcinolone acetonide (KENALOG-40) injection 40 mg 40 mg Intra-articular Augie Ramires MD 40 mg at 08/16/21 0945 Vital Signs: BP 128/80 Pulse 80 Ht 5' 7 (1.702 m) Wt 212 lb (96.2 kg) SpO2 95% Comment: raat rest BMI 33.20 kg/m?? ROS Review of Systems Constitutional: Negative for chills, fever and weight loss. HENT: See HPI for positives Respiratory: See HPI Cardiovascular: Negative for chest pain, palpitations and orthopnea. Gastrointestinal: Negative for heartburn, nausea and vomiting. Musculoskeletal: No diffuse myalgias or arthralgias Skin: Negative for rash. Neurological: Negative for dizziness and sensory change. PHYSICAL EXAM Physical Exam Constitutional: General: He is not in acute distress. Appearance: He is well-developed. He is not diaphoretic. HENT: Head: Normocephalic and atraumatic. Neck: Trachea: No tracheal deviation. Cardiovascular: Rate and Rhythm: Normal rate and regular rhythm. Heart sounds: Normal heart sounds. No murmur heard. Pulmonary: Effort: Pulmonary effort is normal. No respiratory distress. Breath sounds: Wheezing present. Abdominal: General: Bowel sounds are normal. There is no distension. Palpations: Abdomen is soft. Lymphadenopathy: Cervical: No cervical adenopathy. Neurological: Mental Status: He is alert and oriented to person, place, and time. RESULTS Lab Results Component Value Date WBC 6.3 10/29/2021 HGB 13.7 10/29/2021 HCT 41.5 10/29/2021 MCV 99.5 10/29/2021 PLT 258 10/29/2021 Lab Results Component Value Date CREATININE 1.03 10/29/2021 BUN 16 10/29/2021 NA 139 10/29/2021 K 4.3 10/29/2021 CL 103 10/29/2021 CO2 26 10/29/2021 No valid procedures specified. Pulmonary Functions Testing Results: No results found for: FEV1, FVC, DTB9TNS, TLC, DLCO VISIT ORDERS Orders Placed This Encounter Procedures ??? Allergen Region 5 Respiratory Panel-Ref Standing Status: Future Standing Expiration Date: 12/02/2022 ??? CBC with Auto Diff Standing Status: Future Standing Expiration Date: 12/02/2022 ??? Pulmonary function test Standing Status: Future Standing Expiration Date: 12/02/2022 Zuhair LaresRolanda Whitlock had no medications administered during this visit. ASSESSMENT/PLAN The primary encounter diagnosis was Moderate persistent asthma without complication. A diagnosis ofNodule of right lung was also pertinent to this visit. ?? History of childhood asthma-likely recurrent disease ?? Recent influenza pneumonia and COVID-pneumonia ?? Right upper lobe nodular airspace disease 1.5 cm x 0.5 cm Plan ?? Check PFTs ?? Switch Advair to Symbicort per Fabienne guidelines ?? Continue albuterol rescue ?? Has nebulizer for rescue ?? Check allergen panel and CBC with differential ?? Seen by thoracic surgery plan for serial CT in 3 months to monitor right upper lobe nodule ?? Continue Singulair ?? Return to clinic 3 months Wally Rowe MD. [facility] Pulmonary Disease - [place] Board of Internal Medicine Critical Care Medicine- [place] Board of Internal Medicine CAQ- [place] Association of Bronchology and Interventional Pulmonary Neurocritical Care - [place] Board of Psychiatry and Neurology ?? Note was completed using voice recognition technology. Despite best efforts to proof read, it may still contain unintended errors. Please call with questions. 1. The patient indicates understanding of these issues and agrees with the plan. 2. I reviewed the patient's medical information and medical history. 3. I have reviewed the past medical, family, and social history sections including the medications and allergies listed in the above medical record. documented in this encounter Plan of Treatment Upcoming Encounters Date Type Department Care Team (Late st Contact Info) Description 06/28/2024 9:40 AM EST Clinical Support [facility] [address] [place] [phone] 11/19/2024 1:40 PM EDT Office Visit SEP Neurology [facility] [address] [place] [phone] Lyndsay Brewer DO [address] [place] [address] Scheduled Orders Name Type Priority Associated Diagnoses Orde r Schedule PULMONARY FUNCTION TEST PFT Routine Moderate persistent asthma without complication Nodule of right lung 1 Occurrences starting 12/02/2021 until 12/02/2022 ALLERGEN, REGION 5 RESPIRATORY PANEL-REF LAB Lab Routine Moderate persistent asthma without complication Nodule of right lung 1 Occurrences starting 12/02/2021 until 12/02/2022 CBC WITH DIFF Lab Routine Moderate persistent asthma without complication Nodule of right lung 1 Occurrences starting 12/02/2021 until 12/02/2022 documented as of this encounter Goals Goal Patient Goal Type Associated Problems Recent Progress Patient-Stated? Author Blood Pressure < 140/90 Blood Pressure 134/84(2023 1:16 PM EST) No Yana Choi RMA Eat better, exercise, reach an ideal body weight General No Yana Choi RMA Stay Tobacco Free Lifestyle No Yana Choi RMA documented as of this encounter Visit Diagnoses Diagnosis Moderate persistent asthma without complication- Primary Unspecified asthma Nodule of right lung Solitary pulmonary nodule documented in this encounter Discontinued Medications Medication Sig Discontinue Reason Start Date End Da te ADVAIR DISKUS 500-50 mcg/dose Inhl Disk with DeviceIndications:Encount er for medication refill TAKE 1 PUFF BY MOUTH TWICE A DAY Cancelled by 11/04/2021 12/02/2021 documented as of this encounter Care Teams Toll Repairer Central Office Relationship Specialty Start Date End Date Steffanie Fulton APRN [address] [place] [phone] PCP - General Nurse Practitioner 07/26/21 documented as of this encounter
--- OUTSIDE RECORDS SUMMARY | 2024-05-29 15:39 | XMS_ITS | Encounter Summary ---
Author Organization [place] [address] Care Team Providers Care Disintegrator Feeder Name Role Phone Steffanie Fulton APRN Primary Care Provider +1- [phone] Reason for Visit * Reason Comments Medication Refill Encounter Details Date Type Department Care Team (Late st Contact Info) Description 01/27/2022 Refill [facility] [address] [place] [address] Marcela De Leon MD Medication [...] Entry Date Author No 10/07/2020 8:08 AM aJne Barajas MA documented in this encounter Ordered Prescriptions Prescription Sig Dispense Quantity Refills Last Filled Start Date End Date amLODIPine (NORVASC) 5 mg Oral TabletIndications: Essential hypertension TAKE 1 TABLET BY MOUTH EVERY DAY 90 Tablet 01/28/2022 10/25/2022 documented in this encounter Plan of Treatment Upcoming Encounters Date Type Department Care Team (Late st Contact Info) Description 06/28/2024 9:40 AM EST Clinical Support [facility] [address] [place] [phone] 11/19/2024 1:40 PM EDT Office Visit SEP Neurology [facility] [address] [place] [phone] Osman Lyndsaydale Fish, DO [address] [place] [address] documented as of this encounter [...] hypertension documented in this encounter Care Teams Disintegrator Feeder Relationship Specialty Start Date End Date Steffanie Fulton APRN [address] [place] [phone] PCP - General Nurse Practitioner 07/26/21 documented as of this encounter
--- OUTSIDE RECORDS SUMMARY | 2024-05-29 15:39 | XMS_ITS | Encounter Summary ---
Author Organization [facility] [place] [address] Care Team Providers Care Tax Technician Name Role Phone Steffanie Fulton APRN Primary Care Provider [phone]- [phone] Encounter Details Date Type Department Care Team (Latest Contact Info) Description 11/15/2021 Travel Social History Tobacco Use Types Packs/Day [...] Clinical Support [facility] [address] [place] [phone] 11/19/2024 1:40 PM EDT Office Visit SEP Neurology [facility] [address] [place] [address] Lyndsay Brewer DO [address] [place] [address] documented as of this encounter Goals Goal [...] on filedocumented in this encounter Care Teams Tax Technician Relationship Specialty Start Date End Date Steffanie Fulton APRN [address] [place] [address] PCP - General Nurse Practitioner 07/26/21 documented as of this encounter
--- OUTSIDE RECORDS SUMMARY | 2024-05-29 15:39 | XMS_ITS | Encounter Summary ---
Author Organization [place] [address] Care Team Providers Care Cement Mixer Driver Name Role Phone Steffanie Fulton APRN Primary Care Provider [phone]- [phone] Reason for Referral * Consultation (Routine) - Closed Specialty Diagnoses / Procedures Referred By Contac t Referred To Contact Pulmonology Diagnoses Nodule of right lung COPD, moderate (HCC) Moderate persistent asthma without complication Per Urban MD [address] [place] [address] [place] [address] Phone: tel: fax: Wally Rowe MD [address] [place] [address] Phone: tel: fax: Referral ID Status Reason Start Date Expiration Date Visits Re quested Visits Authorized [id number] Closed 11/12/2021 11/12/2022 1 1 Question Answer This referral to pulmonology should not be used to refer to sleep studies or sleep-related consultations. To refer to sleep, please use REF [id number] - Ambulatory referral to Sleep Studies. Click Acknowledge to proceed. Acknowledge - Order Not For Sleep Medicine Comments Management of asthma, cystic lung disease and following RUL nodule * MRI/CAT Scan (Routine) - Closed Specialty Diagnoses / Procedures Referred By Contac t Referred To Contact Radiology Diagnoses Nodule of right lung Procedures CT CHEST WO CONTRAST Per Urban MD [address] [place] [address] [place] [id number] Phone: tel: fax: [facility] [address] [place] [address] Phone: tel: Referral ID Status Reason Start Date Expiration Date Visits Re quested Visits Authorized [id number] Closed 11/12/2021 11/12/2022 1 1 Reason for Visit * Reason Comments New Patient Encounter Details Date Type Department Care Team (Latest Contact Info) Description 11/12/2021 8:41 AM EDT - 11/12/2021 11:59 PM EDT Hospital Encounter [facility] [address] [place] [address] Per Urban MD [address] [place] [address] [place] [address] Nodule of right lung (Primary Dx); COPD, moderate (HCC); Moderate persistent asthma without complication Discharge Disposition: Home or Self Care Social [...] Sign Reading Time Taken Comments Blood Pressure 132/89 11/12/2021 8:46 AM EDT Pulse - - Temperature 36.8 ??C (98.2 ??F) 11/12/2021 8:46 AM ED T Respiratory Rate 18 11/12/2021 8:46 AM EDT Oxygen Saturation 99% 11/12/2021 8:46 AM EDT Inhaled Oxygen Concentration - - Weight 95.3 kg (210 lb 1.6 oz) 11/12/2021 8:46 A M EDT Height 170.2 cm (5' 7 ) 11/12/2021 8:46 AM EDT Body Mass Index 32.91 11/12/2021 8:46 AM EDT documented in this encounter Functional [...] 11/04/2021 fluticasone propionate (FLONASE) 50 mcg/actuation Nasl [place], SuspensionIndicati ons:Moderate persistent asthma, uncomplicated SPRAY 1 SPRAY INTO EACH NOSTRIL EVERY DAY 32 mL 1 11/04/2021 Nebulizer Accessories (ALL FLOW 4000 KIT) [facility] [place] Formulary equivalent 1 Each 0 06/27/2012 albuterol (PROVENTIL HFA;VENTOLIN HFA) 90 mcg/actuation Inhl HFA Aerosol InhalerIndications :Encounter for medication refill INHALE 1 TO 2 PUFFS EVERY 4 HOURS NEEDED FOR WHEEZING. 6.7 Each 1 11/04/2021 2 colestipoL (COLESTID) 1 gram Oral TabletIndications: Irritable bowel syndrome with diarrhea,Bile salt-induced diarrhea TAKE 2 TABLETS BY MOUTH TWICE A DAY 360 Tablet 3 11/02/2021 2 losartan (COZAAR) 50 mg Oral TabletIndications: Essential hypertension TAKE 1 TABLET BY MOUTH TWICE A DAY 60 Tablet 11/04/2021 2 montelukast (SINGULAIR) 10 mg Oral TabletIndications: [...] urinary obstruction TAKE 2 CAPSULES BY MOUTH NIGHTLY 180 Capsule 1 11/04/2021 2 documented as of this encounter Discharge Disposition Disposition Code Departure Means Destination Home or Self Care documented in this encounter H&P Notes * Per Urban MD - 11/12/2021 9:00 AM EDT Date: 11/11/21 Patient Name: Zuhair Whitlock : 1965 Age: 56 y.o. Reason for Consultation: Right upper lobe nodule Provider Requesting Consultation: Steffanie Fulton APRN History of Present Illness: 56 yo male with a history of IL, bipolar affective disorder, heroin abuse and asthma who is seen for a right upper lobe nodule. Patient states he was originally seen for body aches, chills and shortness of breath in September. He tested positive for both influenza A and B. He was treated with tamiflu. CXR at the time showed a left upper lobe opacity measuring 2.5 cm. He had subsequent chest pain and a productive cough and was treated with antibiotics and steroids. He then underwent a follow up CT chest in early October that showed interstitial infiltrates with the left upper lobe as well as a right upper lobe nodule measuring 1.5 x 0.5 cm. He was reviewed at nodule review board and referred to thoracic surgery. He currently reports mild shortness of breath with exertion. He states he would have to stop with aflight of stairs but could walk slowly on flat ground. 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 He reports pain in both knees and states this also contributes to his overall low activity level. He continues to have a cough, though now nonproductive. He denies fevers, chills, weight loss, hemoptysis. He is a never smoker. Of note, patient reports having COVID three times over the last two years. PMHx: Past Medical History: Diagnosis Date ??? Arthritis ??? Asthma 06/02/2010 ??? Bipolar affective (HCC) ??? Blood transfusion ??? EPHRAIM (generalized anxiety disorder) ??? Heart attack (HCC) ??? Heroin abuse (HCC) Quit August ??? Hypertension ??? IBS (irritable bowel syndrome) ??? Opiate dependence (HCC) Remission x 5 years ??? Pneumonia ??? Pneumothorax PSHx: Past Surgical History: Procedure Laterality Date ??? [...] REVISION-ANTERIOR ; Surgeon: Augie Ramires MD; Location: [facility] MAIN OR; Service: Orthopedics ??? KNEE SURGERY LEFT ACL RECONSTRUCTION ??? KNEE SURGERY LEFT ARTHROSCOPIES IRRAGATION X 7 FOR INFECTION ??? KNEE SURGERY RIGHT ARTHROSCOPIC MENICUS REPAIR ??? SHOULDER ARTHROSCOPY Right 11/29/2019 RIGHT SHOULDER ARTHROSCOPIC ROTATOR CUFF REPAIR DECOMPRESSION ACROMIOPLASTY, ACROMIOCLAVICULAR JOINT EXCISION; Surgeon: Kenny Loja MD; Location: [facility]; Service: Orthopedics ??? TOTAL HIP ARTHROPLASTY Left 2009 Meds: Current Outpatient Medications Medication ??? ADVAIR DISKUS 500-50 mcg/dose Inhl Disk with Device ??? albuterol (PROVENTIL HFA;VENTOLIN HFA) 90 mcg/actuation Inhl HFA Aerosol Inhaler ??? albuterol (PROVENTIL) 2.5 mg /3 mL (0.083 %) Inhl Solution for Nebulization ??? amLODIPine (NORVASC) 5 mg Oral Tablet ??? betamethasone dipropionate (DIPROLENE) 0.05 % Top Ointment ??? celecoxib (CELEBREX) 200 mg Oral Capsule ??? colestipoL (COLESTID) 1 gram Oral Tablet ??? diclofenac (VOLTAREN) 1 % Top Gel ??? fluticasone propionate (FLONASE) 50 mcg/actuation Nasl [place], Suspension ??? hydroCHLOROthiazide (MICROZIDE) 12.5 mg Oral Capsule ??? levoFLOXacin (LEVAQUIN) 500 mg Oral Tablet ??? losartan (COZAAR) 50 mg Oral Tablet ??? montelukast (SINGULAIR) 10 mg Oral Tablet ??? Nebulizer Accessories (ALL FLOW 4000 KIT) Misc ??? pravastatin (PRAVACHOL) 20 mg Oral Tablet ??? predniSONE (DELTASONE) 20 mg Oral Tablet ??? tadalafiL (CIALIS) 5 mg Oral Tablet ??? tamsulosin (FLOMAX) 0.4 mg Oral Capsule Current Facility-Administered Medications Medication Dose Route Frequency Last Rate Last Admin ??? bupivacaine HCl (MARCAINE) 0.5 % (5 mg/mL) injection 2 mL 2 mL Intra- articular 2 mL at 945 ??? triamcinolone acetonide (KENALOG-40) injection 40 mg 40 mg Intra-articular 40 mg at 08/16/21 0971 Allergies: Allergies Allergen Reactions ??? Abilify [Aripiprazole] Other (See Comments) convulsions ??? Unable To Assess Patient does not take any narcotic medications Social: Social History Socioeconomic History ??? Marital status: Legally Spouse name: None ??? Number of children: None ??? Years of education: None ??? Highest education level: None Tobacco Use ??? Smoking status: Never Smoker ??? Smokeless tobacco: Current User Types: Snuff Vaping Use ??? Vaping Use: Never used Substance and Sexual Activity ??? Alcohol use: No ??? Drug use: No Comment: in past stated been in recovery for 6 years 2012 ECO Family Hx: Family History Problem Relation Age of Onset ??? Diabetes Mother ??? Heart Disease Mother ??? High Blood Pressure Mother ??? High Cholesterol Mother ??? Cancer Father 40 stomach ??? Other (Diabetes living) Sister 1 sister passed ??? No Known Problems Brother ??? Diabetes Maternal Grandmother ??? No Known Problems Maternal Grandfather ??? Cancer Paternal Grandmother ROS: 1. Constitutional-see HPI 2. Ocular-negative 3. ENT, mouth- negative 4. EDUCATION SPEC-negative 5. Mood-euthymic 6. Cardiac-see HPI 7. Pulmonary-see HPI 8. GI-negative 9. Renal-negative 10. Vascular-negative 11. Musculoskeletal-negative 12. Integument-negative 13. Hematologic/Lymphatic-negative 14. Endocrine-negative 15. -negative Physical Exam: General Appearance: Well developed, well-nourished in no apparent distress Vitals: 11/12/21 0846 BP: 132/89 Resp: 18 Temp: 98.2 ??F (36.8 ??C) SpO2: 99% Oropharynx clear PERRL Skin and sclerae anicteric No cervical or supraclavicular adenopathy Neck supple, nontender Krrit-Ros-cfxxvhg breathing, CTA CV-RRR without murmurs rubs or gallops Abd-soft, non-tender, non-distended, no masses, bowel sounds normal Ext-No peripheral edema Studies: I have independently reviewed the imaging/results, reviewed them with the patient and family, and agree with the below findings: Chest CT 10/30/21: FINDINGS: Cardiac chambers size is normal. Moderate coronary artery calcification. No pericardial effusion. Thoracic aorta is normal in course and in caliber. There is no mediastinal mass lesion. No lymphadenopathy identified within the chest. Limited evaluation of the upper abdomen is notable for incompletely imaged 7 cm left renal cyst. ?? Patchy area of mixed groundglass and interstitial opacity within the posterolateral aspect of the left upper lobe, suspicious for evolving pneumonia/inflammatory process. As seen on the coronal reconstruction suspect early bronchiectasis superiorly in this location. Within the right upper lobe there is a somewhat linear nodular opacity measuring 15 x 5 mm there is adjacent mild peripheral bronchiectasis is noted. There is no pleural effusion or pneumothorax. Calcified granuloma in the left lung base is noted. The central tracheobronchial tree is patent without endobronchial lesion. Small amount of secretions and debris within the trachea and right mainstem bronchus. There are a few scattered cysts and blebs present within both lungs, largest is in the right lower lobe measuring 2.8 cm. No pleural effusion or pneumothorax. ?? No acute or destructive osseous abnormality. ?? IMPRESSION: 1. Segmentally distributed/peripheral groundglass and interstitial opacities within the left upper lobe, with areas of suspect mild bronchiolectasis superiorly in this location. This could represent sequela of infectious or inflammatory process with parenchymal scarring noted. ?? 2. Within the right upper lobe there is nodular airspace disease in the subpleural region, which has a somewhat linear configuration however measuring 15 x 5 mm at the largest component. This will be submitted to the lung nodule review board for further management guidance. Assessment and Plan: Right upper lobe nodule: 56 yo male with a history of IL, bipolar affective disorder, heroin abuse and asthma who is seen for a 2.5 cm right upper lobe nodule found during evaluation for cough and chest pain following recent influenza infection. Nodule felt to be indeterminate. Recommend repeat CT scan in three months for surveillance. Patient also has noted bilateral blebs/cystic lung disease. Will refer to pulmonary for further evaluation. Can follow with pulmonary for his lung nodule with aforementioned CT at this time, but available to see him back if further concerning development. All questions and concerns addressed in full. He is agreeable to the above plan. Alok Moore PA-C 11/15/21 I have independently seen and examined the patient, reviewed the chart and imaging. See my note below. History of Present Illness: 56 YO never smoker with recent Covid x 3 and Flu who presents with a lung nodule found during w/u of above. Physical Exam: General Appearance: Well developed, well-nourished in no apparent distress Vitals: 11/12/21 0846 BP: 132/89 Resp: 18 Temp: 98.2 ??F (36.8 ??C) SpO2: 99% Oropharynx clear Skin and sclerae anicteric No cervical or supraclavicular adenopathy Neck supple, nontender Chest-CTA CV-RRR without murmurs rubs or gallops Abd-soft, non-tender, non-distended, no masses, bowel sounds normal Ext-No peripheral edema Assessment and Plan: 56 YO male with incidentally found indeterminate lung nodule on the heels of being sick with Covid and Flu. Recommend CT in 3 mos and f/u with pulm for management. documented in this encounter Miscellaneous Notes * Patient Instructions - France Mckinley RN - 11/12/2021 9:29 AM EDT Knowledge Deficient Related to Disease Process/Treatment Patient and family will be knowledgeable of disease process and/or treatment regimen PROGRESSING: Consult: Patient and family will understand the reason for the visit. First Treatment Visit: Patient will verbalize understanding of disease process, treatment regimen, potential side effects, and behaviors to manage/prevent side effects. Recurring Treatments: Patient and family will ask appropriate questions and demonstrate behaviors conducive to maintaining health. INTERVENTIONS: 1. Assess patient and family???s readiness to learn. (Initial Consult and PRN) 2. Educate patient/family on treatment regimen, potential side effects, and behaviors to prevent complications from treatment. (Prior to first treatment and PRN) 3. Reinforce education provided by physician about the disease process and/or treatment regimen. (Initial Consult and PRN) 4. Evaluate the effectiveness of education using the teach-back method (PRN) 5. Education patient/family about available resources (Initial Consult and PRN) A. Review Health Manger content with patient (an organizational binder for the patient to use during their oncology visits) B. Review new patient folder (contains pertinent info about the center) C. Review available resources through the [facility] program and the community. 6. State objectives clearly and provide environment conducive to learning (PRN) documented in this encounter Plan of Treatment Upcoming Encounters Date Type Department Care Team (Late st Contact Info) Description 06/28/2024 9:40 AM EST Clinical Support [facility] [address] [place] [address] 11/19/2024 1:40 PM EDT Office Visit SEP Neurology [facility] [address] [place] [address] Lyndsay Brewer DO [address] [place] [address] Scheduled Orders Name Type Priority Associated Diagnoses Orde r Schedule CT CHEST WO CONTRAST Imaging Routine Nodule of right lung 1 Occurrences starting 11/12/2021 until 11/12/2022 Scheduled Referrals Name Type Priority Associated Diagnoses Orde r Schedule AMB REFERRAL TO PULMONOLOGY Outpatient Referral Routine Nodule of right lung COPD, moderate (HCC) Moderate persistent asthma without complication Ordered: 11/12/2021 documented as of this encounter Goals Goal Patient Goal Type Associated Problems Recent Progress Patient-Stated? Author Blood Pressure < 140/90 Blood Pressure 134/84(2023 1:16 PM EST) No Yana Choi, RMA Eat better, exercise, reach an ideal body weight General No Yana Choi RMA Stay Tobacco Free Lifestyle No Yana Choi RMA documented as of this encounter Visit Diagnoses Diagnosis Nodule of right lung- Primary Solitary pulmonary nodule COPD, moderate (HCC) Chronic airway obstruction, not elsewhere classified Moderate persistent asthma without complication Unspecified asthma documented in this encounter Care Teams Cement Mixer Driver Relationship Specialty Start Date End Date Steffanie Fulton APRN [address] [place] [address] PCP - General Nurse Practitioner 07/26/21 documented as of this encounter
--- OUTSIDE RECORDS SUMMARY | 2024-05-29 15:39 | XMS_ITS | Encounter Summary ---
Author Organization [place] [address] Care Team Providers Care Hotel Superintendent Name Role Phone Steffanie Fulton APRN Primary Care Provider +1- [phone] Reason for Visit * Reason Comments Medication Refill Encounter Details Date Type Department Care Team (Late st Contact Info) Description 11/01/2021 Refill SEP Gastro [facility] [address] [facility] [address] [place] [address] Michael Mckeon MD [address] [place], [place] [id number] Medication Refill Social History Tobacco Use Types [...] suspected to have Coronavirus/COVID-19? No / Unsure 10/30/2021 9:25 AM EDT documented as of this encounter [...] 10/07/2020 8:08 AM Jane Baarjas MA * Because of a physical, mental [...] A DAY 360 Tablet 3 11/02/2021 2 documented in this encounter Plan of Treatment Upcoming Encounters Date Type Department Care Team (Late st Contact Info) Description 06/28/2024 9:40 AM EST Clinical Support [facility] [address] [place] [phone] 11/19/2024 1:40 PM EDT Office Visit SEP Neurology [facility] [address] [place] [address] Lyndsay Brewer, DO [address] [place] [address] documented as of this encounter [...] table bowel syndrome with diarrhea,Bile salt-induced diarrhea Take 1 Tablet by mouth 2 times daily. NEEDS AN APPOINTMENT 06/28/2021 11/02/2021 documented as of this encounter Care Teams Hotel Superintendent Relationship Specialty Start Date End Date Steffanie Fulton APRN [address] [place] [address] PCP - General Nurse Practitioner 07/26/21 documented as of this encounter
--- OUTSIDE RECORDS SUMMARY | 2024-05-29 15:39 | XMS_ITS | Encounter Summary ---
Author Organization [facility] Address [address] [address] Care Team Providers Care First Aid Attendant Name Role Phone Steffanie Fulton APRN Primary Care Provider [phone]- [phone] Reason for Referral * (Routine) - Closed Specialty Diagnoses / Procedures Referred By Contac t Referred To Contact Diagnoses Hoarseness Chronic laryngitis Essential hypertension Procedures KS LARYNGOSCOPY FLEXIBLE DIAGNOSTIC Duncan Rodriguez MD [address] [address] Phone: tel: fax: Referral ID Status Reason Start Date Expiration Date Visits Re quested Visits Authorized [id number] Closed 11/15/2021 11/15/2022 1 1 Reason for Visit * Reason Comments Hoarse Encounter Details Date Type Department Care Team (Late Contact Info) Description 11/15/2021 1:20 PM EDT Office Visit [facility] [address] [address] Duncan Rodriguez MD [address] [place] [phone] Hoarseness (Primary Dx); Chronic laryngitis; Essential hypertension Social History Tobacco Use Types [...] to have Coronavirus/COVID-19? No / Unsure 11/15/2021 12:37 PM EDT documented as of this encounter Last Filed Vital Signs Vital Sign Reading Time Taken Comments Blood Pressure 146/90 11/12/2021 12:05 PM EDT Pulse 89 11/12/2021 12:05 PM EDT Temperature 36.2 ??C (97.2 ??F) 11/12/2021 12:05 PM E DT Respiratory Rate - - Oxygen Saturation - - Inhaled Oxygen Concentration - - Weight 95.3 kg (210 lb) 11/12/2021 12:05 PM EDT Height 170.2 cm (5' 7 ) 11/12/2021 12:05 PM EDT Body Mass Index 32.89 11/12/2021 12:05 PM EDT documented in this encounter Functional [...] documented in this encounter Progress Notes * Duncan Rodriguez MD - 11/15/2021 1:20 PM EDT Images from the original note were not included. Zuhair Whitlock 1965 56 y.o. male 11/15/2021 New ENT Patient-Pediatric or Adult Duncan Rodriguez MD, [facility] Referring Provider: No ref. provider found Chief Complaint Patient presents with ??? Hoarse HPI Zuhair Whitlock is a 56 y.o. male who is self referred for the evaluation of hoarseness, a raspy voice. Symptoms started 4-5 month(s) ago and had a onset of COVID. Symptoms include: hoarseness raspy voice cough snoring Symptoms are considered : unchanging Is there a history of throat infections? No sinus infections? No The weight of the patient has: stayed the same Is there a history of reflux? No Antibiotics recently taken: Prednisone Antibiotics currently taking: no recent courses Symptoms happen most often: All the time Patient usually eats a meal or snack: 4-5 hours prior to bedtime Does the patient job require them to Talk on the phone frequently no Talking in front of groups of people frequently? no Does the patient frequently: Sing? no Shouts? no Whisper's? n/a Talks on the phone? yes Talks loudly? yes Does the patient have a history of smoking? never Does the patient consume caffeine: yes Recently testing no Additional information no Does the patient have any trouble with anesthesia? no Is there a family history of: Trouble with anesthesia? no Malignant Hyperthermia (high fever due to anesthesia)? no Pseudo cholinesterase deficiency (enzyme deficiency/very long time to wake from anesthesia)? no COVID-19 screening questions: Has the patient tested positive for COVID-19 or experienced any of the following symptoms in the last 2 weeks: Fever; cough; shortness of breath; loss in sense of smell or taste; pink eye; sore throat; body aches; nausea, vomiting; or diarrhea? no Any Travel outside of the [place] in the last 12 months? no Exposure to anyone with known or suspected of having COVID-19? no Has the patient ever tested positive for COVID-19? If YES, When? Yes, June 2021 Received COVID-19 vaccination? If YES, which coal drier operator (J&J, Moderna, Pfizer, other)? If YES, what date(s) did you receive them? COVID-19 Vaccinations No immunizations on file. I, Dr.Bryan Evelio Rodriguez, have personally interviewed the patient, and the HPI elements above were scribed in my presence. Patient's medications, allergies, past medical, surgical, family and social histories were reviewedand updated in this EMR. Positive: ENT; Hoarseness, cough All 14 organ systems reviewed and negative except as above. Exam: Vitals: 11/12/21 1205 BP: 146/90 BP Location: Left arm Patient Position: Sitting Pulse: 89 Temp: 97.2 ??F (36.2 ??C) TempSrc: Forehead Weight: 210 lb (95.3 kg) Height: 5' 7 (1.702 m) Body mass index is 32.89 kg/m??. General Appearance: Well nourished, well developed, age appropriate oral communication, normal voice sounds, no stridor Head and Face: No abnormalities of head or face, facial strength symmetrical, no sinus tenderness on palpation, saliva gland normal to inspection and palpation Eyes: Ocular mobility and gaze alignment normal WEARS GLASSES External Nose: Nasal dorsum grossly normal, without lesion Internal Nose: DEVIATED NASAL SEPTUM TO THE RIGHT ANTERIORLY Hearing: Clinical hearing thresholds are normal Right Ear: Right auricle, EAC and TM normal, pre and post-auricular soft tissue and pinna normal Left Ear: Left auricle, EAC and TM normal, pre and post-auricular soft tissue and pinna normal Oral Cavity: Normal lips, gums, dentition and tongue Oropharynx: Mucosa without lesion, tongue, hard palate, soft palate and tonsils normal Nasopharynx: PROMINENT GAG/LIMITED VIEW WITH MIRROR FLEXIBLE FIBEROPTIC LARYNGOSCOPY. SEE PROCEDURE NOTE. MIRROR EXAM DEFERRED DUE TO GAG NORMAL VOICE. NO STRIDOR Hypopharynx: PROMINENT GAG/LIMITED VIEW WITH MIRROR FLEXIBLE FIBEROPTIC LARYNGOSCOPY. SEE PROCEDURE NOTE. MIRROR EXAM DEFERRED DUE TO GAG NORMAL VOICE. NO STRIDOR Larynx: PROMINENT GAG/LIMITED VIEW WITH MIRROR FLEXIBLE FIBEROPTIC LARYNGOSCOPY. SEE PROCEDURE NOTE. MIRROR EXAM DEFERRED DUE TO GAG NORMAL VOICE. NO STRIDOR Thyroid: Thyroid not enlarged, symmetric, no tenderness, mass, nodules noted Neck: No masses noted on palpation Lymphatic: Palpation of the carotid and paratracheal lymph nodes reveals no adenopathy Respiratory: Inspection of the chest reveals symmetrical shape and expansion with respiration. Cardiovascular/Heart: Peripheral vascular system without swelling, varicosities. No edema with adequate capillary refill. Neurologic: Normal mood and affect. Cranial nerves otherwise normal. Assessment and Plan: Diagnoses addressed this visit: 1. Hoarseness KS LARYNGOSCOPY FLEXIBLE DIAGNOSTIC 2. Chronic laryngitis KS LARYNGOSCOPY FLEXIBLE DIAGNOSTIC 3. Essential hypertension KS LARYNGOSCOPY FLEXIBLE DIAGNOSTIC This 56-year-old man who reports having had multiple bouts of pneumonia for which he was treated with steroids and antibiotics was seen today with a chief complaint of hoarseness. He has a history ofCOPD, right lung nodule, chewing tobacco use. He was on clotrimazole recently for thrush. His voicesounded pretty good to me today. His exam was negative. A fiberoptic laryngoscopy showed diffuse laryngitis with evidence of mild candidiasis. I suggested he restart clotrimazole, which she has at home. I told him that if his voice has not normalized, or he develops any other related symptoms, I would want to scope him again in about 3 months, or sooner as needed. PROCEDURE NOTE: 11/15/2021 Procedure: Flexible Fiberoptic Laryngoscopy Indication: hoarseness Surgeon: Duncan Rodriguez MD Anesthesia: Lidocaine jelly, topical EBL: None Correct site procedure and patient confirmed, informed verbal consent obtained. Description of Procedure: Utilizing a flexible 4 mm scope, the scope was passed through the nasal passageways with inspectionof the nasal cavity, nasopharynx, oropharynx, hypopharynx and larynx. Following findings were noted. Findings: DEVIATED NASAL SEPTUM TO THE RIGHT ANTERIORLY, LARYNGITIS, FUNGAL EVIDENCE, otherwise: 1) Nasal passageways - the mucosa, turbinates and middle meatal regions were found to be normal with no other mass or lesions or abnormalities being noted. 2) Nasopharynx was found to be normal with normal mucosa. Each torus tubarius normal in size. No signs of adenoidal enlargement or other abnormalities. 3) Supraglottic structures were found to have no masses, lesions. Arytenoids looked normal. The epiglottis had normal thickness and mucosa (grossly) with good mobility and closure was good on swallowing. 4) Glottic nitch showed the true and false vocal cords to be mobile with good structural integrity without any other masses or lesions. The patient had good sensation in this region. 5) Visualized portions of the subglottis had no narrowing or other signs of granulation tissue or other masses or lesions being noted. 6) Visualized portions of the hypopharynx appeared normal. 7) The swallow was grossly normal. The patient tolerated the procedure well. No follow-ups on file. [facility] E[facility] ENT [address] [facility] [address] This note may have been partially dictated using [employer] voice recognition software and may contain unintended error. documented in this encounter Plan of Treatment Upcoming Encounters Date Type Department Care Team (Late st Contact Info) Description 06/28/2024 9:40 AM EST Clinical Support [facility] [place] [address] [place] [address] 11/19/2024 1:40 PM EDT Office Visit [facility] [address] [place] [address] Lyndsay Brewer DO [address] [place] [address] Scheduled Orders Name Type Priority Associated Diagnoses Orde r Schedule KS LARYNGOSCOPY FLEXIBLE DIAGNOSTIC [place] Charge Routine Hoarseness Chronic laryngitis Essential hypertension Ordered: 11/15/2021 documented as of this encounter Goals Goal Patient Goal Type Associated Problems Recent Progress Patient-Stated? Author Blood Pressure < 140/90 Blood Pressure 134/84(2023 1:16 PM EST) No Yana Choi RMA Eat better, exercise, reach an ideal body weight General No Yana Choi RMA Stay Tobacco Free Lifestyle No Yana Choi RMA documented as of this encounter Visit Diagnoses Diagnosis Hoarseness- Primary Dysphonia Chronic laryngitis Essential hypertension Unspecified essential hypertension documented in this encounter Care Teams First Aid Attendant Relationship Specialty Start Date End Date Steffanie Fulton APRN [address] [place] [address] PCP - General Nurse Practitioner 07/26/21 documented as of this encounter
--- OUTSIDE RECORDS SUMMARY | 2024-05-29 15:39 | XMS_ITS | Encounter Summary ---
Author Organization [facility] [place] [address] Care Team Providers Care Optometrist Name Role Phone Steffanie Fulton APRN Primary Care Provider [phone]- [phone] Encounter Details Date Type Department Care Team (Latest Contact Info) Description 12/02/2021 Travel Social History Tobacco Use Types Packs/Day [...] Clinical Support [facility] [address] [place] [place] [phone] 11/19/2024 1:40 PM EDT Office Visit [facility] [address] [place] [address] Lyndsay Brewer DO [address] [place] [address] documented as of this encounter Goals Goal [...] on filedocumented in this encounter Care Teams Optometrist Relationship Specialty Start Date End Date Steffanie Fulton APRN [address] [place] [address] PCP - General Nurse Practitioner 07/26/21 documented as of this encounter
--- OUTSIDE RECORDS SUMMARY | 2024-05-29 15:39 | XMS_ITS | Encounter Summary ---
Author Organization [place] [address] Care Team Providers Care Plans Examiner Name Role Phone Kirstin Steffanie YOLI Primary Care Provider [phone]- [phone] Reason for Visit * Reason Comments Medication Refill Encounter Details Date Type Department Care Team (Late st Contact Info) Description 11/01/2021 Refill [facility] [address] [place] [phone] YolandanilsonSteffanieYOLI [address] [place] [address] Medication Refill Social History Tobacco Use Types [...] Date hydroCHLOROthiazid e (MICROZIDE) 12.5 mg Oral Capsule TAKE 1 CAPSULE BY MOUTH EVERY DAY 90 Capsule 11/04/2021 2 losartan (COZAAR) 50 mg Oral TabletIndications: Essential hypertension TAKE 1 TABLET BY MOUTH TWICE A DAY 60 Tablet 11/04/2021 2 montelukast (SINGULAIR) 10 mg Oral TabletIndications: Moderate persistent asthma without complication TAKE 1 TABLET BY MOUTH EVERY DAY AT NIGHT 90 Tablet 11/04/2021 2 ADVAIR DISKUS 500-50 mcg/dose Inhl Disk with DeviceIndications: Encounter for medication refill TAKE 1 PUFF BY MOUTH TWICE A DAY 180 Each 1 11/04/2021 2 albuterol (PROVENTIL HFA;VENTOLIN HFA) 90 mcg/actuation Inhl HFA Aerosol InhalerIndications :Encounter for medication refill INHALE 1 TO 2 PUFFS EVERY 4 HOURS NEEDED FOR WHEEZING. 6.7 Each 1 11/04/2021 2 documented in this encounter Miscellaneous Notes * Telephone Encounter - Sonia Alvarado CPhT - 11/04/2021 9:02 AM EDT Advair- Medication Refill Protocol not available for this medication. Routed to office staff. Albuterol- Medication Refill Protocol not available for this medication. Routed to office staff. Hydrochlorothiazide- Medication Refill Protocol passed. Hermilo Action: Approved refills to noted follow-up date by provider or protocol if no follow-up date noted. Losartan- Medication Refill Protocol passed. Hermilo Action: Approved refills to noted follow-up date by provider or protocol if no follow-up date noted. Montelukast- Medication Refill Protocol not available for this medication. Routed to office staff. documented in this encounter Plan of Treatment Upcoming Encounters Date Type Department Care Team (Late st Contact Info) Description 06/28/2024 9:40 AM EST Clinical Support [place] [place] [address] [place] [phone] 11/19/2024 1:40 PM EDT Office Visit [facility] 0 Phys[address] [place] [phone] Lyndsay Brewer DO [address] [place] [address] documented as of this [...] Moderate persistent asthma without complication Unspecified asthma Essential hypertension Unspecified essential hypertension documented in this encounter Discontinued Medications Medication Sig Discontinue Reason Start Date End Da te losartan (COZAAR) 50 mg Oral TabletIndications:Saadenti al hypertension TAKE 1 TABLET BY MOUTH TWICE A DAY 06/02/2021 11/04/2021 hydroCHLOROthiazide (MICROZIDE) 12.5 mg Oral Capsule TAKE 1 CAPSULE BY MOUTH EVERY DAY 09/01/2021 11/04/2021 albuterol (PROVENTIL HFA;VENTOLIN HFA) 90 mcg/actuation Inhl HFA Aerosol InhalerIndications:Encoun ter for medication refill INHALE 1 TO 2 PUFFS EVERY 4 HOURS NEEDED FOR WHEEZING. 09/01/2021 11/04/2021 ADVAIR DISKUS 500-50 mcg/dose Inhl Disk with DeviceIndications:Encount er for medication refill INHALE 1 PUFF BY MOUTH TWICE A DAY 02/08/2021 11/04/2021 montelukast (SINGULAIR) 10 mg Oral TabletIndications:Moderat e persistent asthma without complication TAKE 1 TABLET BY MOUTH EVERY DAY AT NIGHT 09/20/2021 11/04/2021 documented as of this encounter Care Teams Plans Examiner Relationship Specialty Start Date End Date Steffanie Fulton APRN [address] [place] [address] PCP - General Nurse Practitioner 07/26/21 documented as of this encounter
--- OUTSIDE RECORDS SUMMARY | 2024-05-29 15:39 | XMS_ITS | Encounter Summary ---
Author Organization [place] [address] Care Team Providers Care Manager Clinic Name Role Phone Kirstin Steffanie YOLI Primary Care Provider +1- [phone] Reason for Visit * Reason Comments Medication Refill Encounter Details Date Type Department Care Team (Late st Contact Info) Description 01/08/2022 Refill [facility] [address] [place] [phone] KirstinSteffanieYOLI [address] [place] [address] Medication Refill Social History Tobacco Use Types [...] TWICE A DAY 60 Tablet 1 01/10/2022 02/07/2022 documented in this encounter Miscellaneous Notes * Telephone Encounter - Chinyere Hicks CPhT - 01/10/2022 12:32 PM EDT losartan- Medication Refill Protocol 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 documented in this encounter Plan of Treatment Upcoming Encounters Date Type Department Care Team (Late st Contact Info) Description 06/28/2024 9:40 AM EST Clinical Support [facility] [address] [place] [address] 11/19/2024 1:40 PM EDT Office Visit [facility] [address] [facility] [place] [address] Lyndsay Brewer DO [address] [place] [address] documented as of this [...] 1 TABLET BY MOUTH TWICE A DAY 11/04/2021 01/10/2022 documented as of this encounter Care Teams Manager Clinic Relationship Specialty Start Date End Date Steffanie Fulton APRN [address] [place] [phone] PCP - General Nurse Practitioner 07/26/21 documented as of this encounter
--- OUTSIDE RECORDS SUMMARY | 2024-05-29 15:39 | XMS_ITS | Encounter Summary ---
Author Organization [place] [address] Care Team Providers Care Departure Clerk Name Role Phone Steffanie Fulton APRN Primary Care Provider +1- [phone] Encounter Details Date Type Department Care Team (Late st Contact Info) Description 12/14/2021 10:00 AM EDT Telemedicine [facility] [address] [place] [address] Ligia Wiley MD [address] [facility] [place], [place] [phone] Acute bacterial sinusitis (Primary Dx) Social History Tobacco Use Types [...] Refills Last Filled Start Date End Date amoxicillin-clavu lanate (AUGMENTIN) 875-125 mg Oral TabletIndications :Acute bacterial sinusitis Take 1 Tablet by mouth 2 times daily. 14 Tablet 12/14/2021 2 methylPREDNISolon e (MEDROL DOSPACK) 4 mg Oral Tablets, Dose PackIndications:A cute bacterial sinusitis See package instructions 21 Tablet 12/14/2021 2 guaiFENesin (MUCINEX) 600 mg Oral Tablet Extended Release 12hrIndications:A cute bacterial sinusitis Take 1 Tablet by mouth 2 times daily as needed for Congestion (thick secretions). 20 Tablet 12/14/2021 3 documented in this encounter Progress Notes * Ligia Wiley MD - 12/14/2021 10:00 AM EDT Chief Complaint: Concern for COVID-19. Is this visit being conducted using a Video Visit or Telephone? Patient presented today for routine care follow-up through a video visit. Patient has reviewed the terms and conditions of service as part of the registration for today's visit. A video visit does not replace a [id number] exam and further services may be necessary. We are conducting his video visit in a private space and this video visit is being conducted in accordance with [facility] telehealth/video visit regulations. HPI: URI/Sinus symptoms: ?? complains of congestion, nasal blockage, productive cough, headache and itching in eyes for 7 days. ?? Associated symptoms include cough. ?? Symptom severity is described as Moderate and are worsening. ?? What treatments have you tried at home? Allergy eye drops ?? Are home treatments impacting your symptoms at all? no ?? Do you get recurrent or seasonal symptoms multiple times per year? no ?? Do you have any history of lung disease, asthma, or recurrent allergies? no ?? The Patient does not smoke cigarettes. Cough, congestion, mucus in the morning. Last 3 days. Watery eyes. Eyes matted shut. Dry eyes. Review of Systems Constitutional: Positive for malaise/fatigue. Negative for chills and fever. HENT: Positive for congestion. Respiratory: Positive for cough and sputum production. Musculoskeletal: Negative for myalgias. Neurological: Positive for headaches. Physical Exam: Alert, well appearing, no distress Appears to have normal nutrition and hydration Speaking in full sentences comfortably, normal work of breathing, no cough during visit No confusion, normal mentation, affect and behavior Diagnoses and all orders for this visit: Acute bacterial sinusitis - guaiFENesin (MUCINEX) 600 mg Oral Tablet Extended Release 12hr; Take 1 Tablet by mouth 2 times daily as needed for Congestion (thick secretions). Dispense: 20 Tablet; Refill: 0 - methylPREDNISolone (MEDROL DOSPACK) 4 mg Oral Tablets, Dose Pack; See package instructions Dispense: 21 Tablet; Refill: 0 - amoxicillin-clavulanate (AUGMENTIN) 875-125 mg Oral Tablet; Take 1 Tablet by mouth 2 times daily.Dispense: 14 Tablet; Refill: 0 - advised to contact us or go to the ER immediately if they have difficulty breathing or shortness of breath, persistent chest pain or pressure, calf swelling or pain, new confusion or inability to arouse or bluish lips or face This was completed as a non-face to face encounter to 1) reduce the risk of a possible COVID 19 positive patient spreading disease to other patients and medical personnel and /or 2) reduce the exposure risk to a patient with co- morbid conditions that increase COVID 19 infection complications / . The patient provided verbal consent to a Telemedicine Visit and understands that this does not replace a face to face encounter. Currently, it is felt the benefits of a telemedicine encounter outweigh the risk to the patient and the general public during this pandemic. documented in this encounter Plan of Treatment Upcoming Encounters Date Type Department Care Team (Late st Contact Info) Description 06/28/2024 9:40 AM EST Clinical Support [facility] [place] [address] [place] [phone] 11/19/2024 1:40 PM EDT Office Visit SEP Neurology [facility] [address] [place] [address] Lyndsay Brewer DO [address] [place] [address] documented as of this encounter Goals Goal Patient Goal Type Associated Problems Recent Progress Patient-Stated? Author Blood Pressure < 140/90 Blood Pressure 134/84(2023 1:16 PM EST) No Yana Choi, ESTEFANY Eat better, exercise, reach an ideal body weight General No Yana Choi RMA Stay Tobacco Free Lifestyle No Yana Choi RMA documented as of this encounter Visit Diagnoses Diagnosis Acute bacterial sinusitis- Primary Acute sinusitis, unspecified documented in this encounter Care Teams Departure Clerk Relationship Specialty Start Date End Date Steffanie Fulton APRN [address] [place] [address] PCP - General Nurse Practitioner 07/26/21 documented as of this encounter
--- OUTSIDE RECORDS SUMMARY | 2024-05-29 15:39 | XMS_ITS | Encounter Summary ---
Author Organization [place] [address] Care Team Providers Care Youth Officer Name Role Phone Steffanie Fulton APRN Primary Care Provider +1- [phone] Reason for Visit * Reason Comments Cough Fever Generalized Body Aches Encounter Details Date Type Department Care Team (Late st Contact Info) Description 02/03/2022 2:15 PM EDT Office Visit [facility] [address] [place] [phone] Mariangel Lopez APRN [address] [place] [address] COVID-19 virus infection (Primary Dx); Cough, unspecified type; Fever, unspecified fever cause; Nasal congestion; COPD, moderate (HCC); Influenza B Social History Tobacco Use Types [...] Sign Reading Time Taken Comments Blood Pressure 122/80 02/03/2022 1:58 PM EDT Pulse 112 02/03/2022 1:58 PM EDT Temperature 39.6 ??C (103.3 ??F) 02/03/2022 1:58 PM E DT Respiratory Rate - - Oxygen Saturation 98% 02/03/2022 1:58 PM EDT Inhaled Oxygen Concentration - - Weight 97.5 kg (215 lb) 02/03/2022 1:58 PM EDT Height 170.2 cm (5' 7 ) 02/03/2022 1:58 PM EDT Body Mass Index 33.67 02/03/2022 1:58 PM EDT documented in this [...] Jane Barajas MA documented in this encounter Patient Instructions * Attachments The following attachments cannot be sent through Care Everywhere. * COVID-19 Overview (Citizen Of [place]) documented in this encounter Ordered Prescriptions Prescription Sig Dispense Quantity Refills Last Filled Start Date End Date nirmatrelvir-brigid navir (PAXLOVID) Oral tablets therapy pack Take two tablets of nirmatrelvir (300 mg) and one tablet of ritonavir (100 mg) together orally twice daily for 5 days 30 Tablet 02/04/2022 2 nirmatrelvir-brigid navir (PAXLOVID) Oral tablets therapy pack Take two tablets of nirmatrelvir (300 mg) and one tablet of ritonavir (100 mg) together orally twice daily for 5 days 30 Tablet 02/04/2022 2 dextromethorphan- guaiFENesin (MUCINEX DM) 30-600 mg Oral Tablet Sustained Release 12 hrIndications:Jose al congestion,COVID- 19 virus infection Take 1 Tablet by mouth every 12 hours. 20 Tablet 02/03/2022 3 documented in this encounter Progress Notes * Mariangel Lopez APRN - 02/03/2022 2:15 PM EDT Vitals: 02/03/22 1358 BP: 122/80 Pulse: 112 Temp: (!) 103.3 ??F (39.6 ??C) TempSrc: Temporal SpO2: 98% Weight: 215 lb (97.5 kg) Height: 5' 7 (1.702 m) SUBJECTIVE: Chief Complaint Patient presents with ??? Cough ??? Fever ??? Generalized Body Aches HPI: Patient c/o fever, cough, body aches, chills, and diarrhea x1 day. Patient states he started to not feel good last night and his family has been having symptoms today. Patient has been taking tylenol for the fever. Currently on Augmentin for strep throat Review of Systems Constitutional: Positive for chills, fatigue and fever (up to 103). HENT: Positive for congestion. Respiratory: Positive for cough, shortness of breath and wheezing (very mild since being active). Cardiovascular: Negative. Musculoskeletal: Positive for myalgias. Neurological: Positive for headaches (mild ). OBJECTIVE: Physical Exam NAD, slightly pale, skin w/d, dry cough, cap refill normal, skin turgor normal. Fatigued appearing PERRL, ANICTERIS EOMI CTA B, no wheezing, crackles or rhonchi. RR no murmur No C/C/E ABDOMEN SOFT WITH POS BS, NONTENDER Non focal neuro exam GAIT STEADY, POSTURE ERECT Results for orders placed or performed in visit on 02/03/22 POCT JOSIE SARS ANTIGEN Result Value Ref Range SARS Antigen Positive (A) Negative Lot Number Expiration Date SeriAl # Control Line Yes YES/NO POCT JOSIE INFLUENZA A/B Result Value Ref Range Influenza A Antigen Negative Negative Influenza B Antigen Positive (A) Negative Assessment Diagnoses and all orders for this visit: COVID-19 virus infection Comments: Symptomatic care Discussed signs and symptoms to go to the emergency room for Orders: - dextromethorphan-guaiFENesin (MUCINEX DM) 30-600 mg Oral Tablet Sustained Release 12 hr; Take 1 Tablet by mouth every 12 hours. Dispense: 20 Tablet; Refill: 0 Cough, unspecified type - POCT JOSIE SARS ANTIGEN - POCT JOSIE INFLUENZA A/B Fever, unspecified fever cause - POCT JOSIE SARS ANTIGEN Nasal congestion - POCT JOSIE SARS ANTIGEN - dextromethorphan-guaiFENesin (MUCINEX DM) 30-600 mg Oral Tablet Sustained Release 12 hr; Take 1 Tablet by mouth every 12 hours. Dispense: 20 Tablet; Refill: 0 COPD, moderate (HCC) (Chronic) Comments: States he is very aware of when he is getting into trouble with his breathing Nebulizer and inhalers if needed documented in this encounter Miscellaneous Notes * Patient Instructions - Mariangel Lopez APRN - 02/03/2022 2:15 PM EDT Please hold atorvastatin while on the Paxlovid ?? Stay home for 5 days and isolate from everyone unless they also have Covid ?? If you have no symptoms or your symptoms are resolving after 5 days, you can discontinue quarantine. ?? Continue to wear a mask around others for 5 additional days. - If you have a fever, continue to quarantine until your fever resolves . * Addendum Note - Mariangel Lopez APRN - 02/03/2022 2:15 PM EDTAddended by: MARIANGEL LOPEZ on: 02/04/2022 08:59 AM Modules accepted: Orders documented in this encounter Plan of Treatment Upcoming Encounters Date Type Department Care Team (Late st Contact Info) Description 06/28/2024 9:40 AM EST Clinical Support [facility] [place] [address] [place] [place] [address] 11/19/2024 1:40 PM EDT Office Visit [facility] [address] [place] [address] Lyndsay Brewer DO [address] [place] [address] documented as of this encounter Goals Goal Patient Goal Type Associated Problems Recent Progress Patient-Stated? Author Blood Pressure < 140/90 Blood Pressure 134/84(2023 1:16 PM EST) No Yana Choi, RMJane Eat better, exercise, reach an ideal body weight General No Yana Choi, RMA Stay Tobacco Free Lifestyle No Yana Choi RMA documented as of this encounter Procedures Procedure Name Priority Date/Time Associated Diagnosis Comments POCT JOSIE SARS ANTIGEN Routine 02/03/2022 2:21 PM EDT Cough, unspecified type Fever, unspecified fever cause Nasal congestion POCT JOSIE INFLUENZA A/B Routine 02/03/2022 2:14 PM EDT Cough, unspecified type documented in this encounter Results * (ABNORMAL) POCT JOSIE SARS ANTIGEN (02/03/2022 2:21 PM EDT) SARS Antigen Positive(A ) Negative SEP OFFICE Lot Number SEP OFFICE Expiration Date SEP OFFICE SeriAl # SEP OFFICE Control Line Yes YES/NO SEP OFFICE 02/03/2022 2:21 PM EDT Mariangel Lopez APRN POINT OF CARE TEST ORDERA BLES Final Result Performing Organization Address City/[facility] Co de Phone Number SEP OFFICE * (ABNORMAL) POCT JOSIE INFLUENZA A/B (02/03/2022 2:14 PM EDT) Influenza A Antigen Negative Negative 02/03/2022 2:18 PM EDT [facility] [place] Influenza B Antigen Positive(A) Negative 02/03/2022 2:18 PM EDT [facility] [place] Swab SPECIMEN FROM NASOPHARYNGEAL STRUCTURE / Unknown 02/03/2022 2:14 PM EDT 02/03/2022 2:18 PM EDT Mariangel Lopez APRN POINT OF CARE TEST ORDERA BLES Final Result Performing Organization Address City/[facility]/ZIP Co de Phone Number [facility] [place] [facility] [place] [phone] documented in this encounter Visit Diagnoses Diagnosis COVID-19 virus infection- Primary Cough, unspecified type Fever, unspecified fever cause Nasal congestion Other diseases of nasal cavity and sinuses COPD, moderate (HCC) Chronic airway obstruction, not elsewhere classified Influenza B Influenza with other respiratory manifestations documented in this encounter Discontinued Medications Medication Sig Discontinue Reason Start Date End Da te methylPREDNISolone (MEDROL DOSPACK) 4 mg Oral Tablets, Dose PackIndications:Acut e bacterial sinusitis See package instructions DELETE-Therapy completed 12/14/2021 02/03/2022 nirmatrelvir-ritonav ir (PAXLOVID) Oral tablets therapy pack Take two tablets of nirmatrelvir (300 mg) and one tablet of ritonavir (100 mg) together orally twice daily for 5 days DELETE-Duplicate 02/04/2022 02/04/2022 documented as of this encounter Additional Health Concerns Infection Onset Date Last Indicated Resolved Time INFLUENZA 02/03/2022 02/03/2022 02/18/2022 10:1 2 PM EDT COVID-19 02/03/2022 02/03/2022 02/23/2022 10:1 2 PM EDT documented as of this encounter Care Teams Youth Officer Relationship Specialty Start Date End Date Steffanie Fulton APRN [address] [place] [address] PCP - General Nurse Practitioner 07/26/21 documented as of this encounter
--- OUTSIDE RECORDS SUMMARY | 2024-05-29 15:39 | XMS_ITS | Encounter Summary ---
Author Organization [place] [address] Care Team Providers Care Harnessmaker Apprentice Name Role Phone Kirstin Steffanie YOLI Primary Care Provider +1- [phone] Reason for Visit * Reason Comments Medication Refill Encounter Details Date Type Department Care Team (Late st Contact Info) Description 11/18/2021 Refill [facility] [place] [facility] [address] [place] [phone] KirstinSteffanieYOLI [address] [place] [address] Medication Refill Social History Tobacco Use Types [...] NIGHT 90 Capsule 1 11/18/2021 3 documented in this encounter Plan of Treatment Upcoming Encounters Date Type Department Care Team (Late st Contact Info) Description 06/28/2024 9:40 AM EST Clinical Support [facility] [address] [phone] 11/19/2024 1:40 PM EDT Office Visit [facility] [address] [place] [address] Lyndsay Brewer, DO [address] [place] [address] documented as of this encounter [...] obstruction TAKE 2 CAPSULES BY MOUTH NIGHTLY 11/04/2021 11/18/2021 documented as of this encounter Care Teams Harnessmaker Apprentice Relationship Specialty Start Date End Date Steffanie Fulton APRN [address] [place] [phone] PCP - General Nurse Practitioner 07/26/21 documented as of this encounter
--- OUTSIDE RECORDS SUMMARY | 2024-05-29 15:39 | XMS_ITS | Encounter Summary ---
Author Organization [place] [address] Care Team Providers Care Spray Crew Name Role Phone Steffanie Fulton APRN Primary Care Provider +1- [phone] Reason for Visit * Reason Comments Medication Refill Encounter Details Date Type Department Care Team (Late st Contact Info) Description 11/01/2021 Refill [facility] [place] [facility] [address] [place] [address] Marcela De Leon MD Medication [...] encounter Miscellaneous Notes * Telephone Encounter - Lore Schuler CPhT - 11/03/2021 4:17 PM EDT amlodipine Medication refill requested too soon. Refill request denied. Refills sent on 10/28/21 with Qty: 90 and 0 refills. plastic surgery coordinator did not contact pharmacy. Patient notified via MyChart (if MyChart active). documented in this encounter Plan of Treatment Upcoming Encounters Date Type Department Care Team (Late st Contact Info) Description 06/28/2024 9:40 AM EST Clinical Support [facility] [place] [facility] [address] [place] [phone] 11/19/2024 1:40 PM EDT Office Visit [facility] [address] [place] [address] Lyndsay Brewer DO [address] [place] [address] documented as of this encounter [...] hypertension documented in this encounter Care Teams Spray Crew Relationship Specialty Start Date End Date Steffanie Fulton APRN [address] [place] [address] PCP - General Nurse Practitioner 07/26/21 documented as of this encounter
--- OUTSIDE RECORDS SUMMARY | 2024-05-29 15:40 | XMS_ITS | Encounter Summary ---
Author Organization [place] [address] Care Team Providers Care Senior Librarian Name Role Phone KirstinSteffanie YOLI Primary Care Provider +1- [phone] Reason for Visit * Reason Comments Medication Refill Encounter Details Date Type Department Care Team (Late st Contact Info) Description 10/16/2021 Refill [facility] [address] [place] [address] Michelle Garrido APRN Medication Refill Social History [...] (NOT COVERED) 90 Tablet 2 10/18/2021 3 documented in this encounter Miscellaneous Notes * Telephone Encounter - Sonia Alvarado CPhT - 10/18/2021 3:37 PM EDT Tadalafil- Medication refill request deferred to office staff. [facility] Reason: Invailid Provider. Please update the provider. documented in this encounter Plan of Treatment Upcoming Encounters Date Type Department Care Team (Late st Contact Info) Description 06/28/2024 9:40 AM EST Clinical Support [facility] [place] [facility] [address] [phone] 11/19/2024 1:40 PM EDT Office Visit [facility] [address] [place] [address] Lyndsay Brewer, DO [address] [place] [address] documented as of this encounter [...] 5 mg Oral TabletIndications:BPH without urinary obstruction Take 1 Tab by mouth as needed. for erectile dysfunction 01/07/2021 10/18/2021 documented as of this encounter Additional Health Concerns Infection Onset Date Last Indicated Resolved Time INFLUENZA 10/13/2021 10/13/2021 10/28/2021 10:1 2 PM EDT documented as of this encounter Care Teams Senior Librarian Relationship Specialty Start Date End Date Steffanie Fulton APRN [address] [place] [address] PCP - General Nurse Practitioner 07/26/21 documented as of this encounter
--- OUTSIDE RECORDS SUMMARY | 2024-05-29 15:40 | XMS_ITS | Encounter Summary ---
Author Organization [place] [address] Care Team Providers Care Special Events Assistant Name Role Phone Kirstin Steffanie YOLI Primary Care Provider +1- [phone] Reason for Visit * Reason Comments Medication Refill Encounter Details Date Type Department Care Team (Late st Contact Info) Description 09/20/2021 Refill [facility] [place] [facility] [address] [place] [phone] Steffanie FultonYOLI [address] [place] [address] Medication Refill Social History Tobacco Use Types [...] MOUTH EVERY DAY AT NIGHT 90 Tablet 09/20/2021 11/04/2021 documented in this encounter Plan of Treatment Upcoming Encounters Date Type Department Care Team (Late st Contact Info) Description 06/28/2024 9:40 AM EST Clinical Support [facility] [address] [place] 11/19/2024 1:40 PM EDT Office Visit [facility] [address] [place] [address] [place]man Lyndsay Harrelln, DO [address] [place] [address] documented as of this encounter [...] TABLET BY MOUTH EVERY DAY AT NIGHT 06/28/2021 09/20/2021 documented as of this encounter Care Teams Special Events Assistant Relationship Specialty Start Date End Date Steffanie Fulton APRN [address] [place] [phone] PCP - General Nurse Practitioner 07/26/21 documented as of this encounter
--- OUTSIDE RECORDS SUMMARY | 2024-05-29 15:40 | XMS_ITS | Encounter Summary ---
Author Organization [place] [address] Care Team Providers Care Agency Development Manager Name Role Phone Steffanie Fulton APRN Primary Care Provider +1- [phone] Reason for Visit * Reason Comments Generalized Body Aches x 2 weeks Chills Shortness of Breath hurts to breathe Encounter Details Date Type Department Care Team (Late Contact Info) Description 10/13/2021 11:30 AM EDT Office Visit [facility] [address] [place] [address] Brian Hickman MD Fever, unspecified fever cause (Primary Dx); Influenza A; Influenza B Social History Tobacco Use Types [...] Sign Reading Time Taken Comments Blood Pressure 118/74 10/13/2021 11:12 AM EDT Pulse - - Temperature 38.1 ??C (100.6 ??F) 10/13/2021 11:12 AM EDT Respiratory Rate 20 10/13/2021 11:12 AM EDT Oxygen Saturation 98% 10/13/2021 11:12 AM EDT Inhaled Oxygen Concentration - - Weight 96.2 kg (212 lb) 10/13/2021 11:12 AM EDT Height 170.2 cm (5' 7 ) 10/13/2021 11:12 AM EDT Body Mass Index 33.2 10/13/2021 11:12 AM EDT documented in this encounter Functional [...] oseltamivir (TAMIFLU) 75 mg Oral CapsuleIndications :Influenza A,Influenza B Take 1 Capsule by mouth 2 times daily for 5 days. 10 Capsule 10/13/2021 2 documented in this encounter Progress Notes * Brian Hickman MD - 10/13/2021 11:30 AM EDT Vitals: 10/13/21 1112 BP: 118/74 BP Location: Left arm Patient Position: Sitting Resp: 20 Temp: 100.6 ??F (38.1 ??C) TempSrc: Temporal SpO2: 98% Weight: 212 lb (96.2 kg) Height: 5' 7 (1.702 m) SUBJECTIVE: Chief Complaint Patient presents with ??? Generalized Body Aches x 2 weeks ??? Chills ??? Shortness of Breath hurts to breathe HPI: Patient is here with C/O body aches, Chills and SOB ?? X 2 weeks ?? States he feels like he did when he had Covid Review of Systems Constitutional: Positive for chills and fatigue. Negative for appetite change and fever. HENT: Positive for postnasal drip. Respiratory: Positive for cough and shortness of breath. Cardiovascular: Negative for chest pain. Gastrointestinal: Negative for nausea and vomiting. Musculoskeletal: Positive for myalgias. Neurological: Negative for light-headedness and headaches. All other systems reviewed and are negative. OBJECTIVE: Physical Exam Constitutional: Appearance: Normal appearance. Cardiovascular: Rate and Rhythm: Normal rate and regular rhythm. Pulmonary: Effort: Pulmonary effort is normal. Breath sounds: Normal breath sounds. Neurological: General: No focal deficit present. Mental Status: He is alert and oriented to person, place, and time. Assessment Diagnoses and all orders for this visit: Fever, unspecified fever cause - POCT JOSIE SARS ANTIGEN Influenza A - oseltamivir (TAMIFLU) 75 mg Oral Capsule; Take 1 Capsule by mouth 2 times daily for 5 days. Dispense: 10 Capsule; Refill: 0 Influenza B - oseltamivir (TAMIFLU) 75 mg Oral Capsule; Take 1 Capsule by mouth 2 times daily for 5 days. Dispense: 10 Capsule; Refill: 0 Other orders - POCT JOSIE INFLUENZA A/B documented in this encounter Miscellaneous Notes * Patient Instructions - Toma Ye CCMA - 10/13/2021 11:30 AM EDT You may be contacted by [...] EST Clinical Support [facility] [place] [address] [place] [address] 11/19/2024 1:40 PM EDT Office Visit [facility] Neurology [facility] [address] [place] [address] Lyndsay Brewer DO [address] [facility] [address] [place] [address] documented as of this encounter [...] Diagnosis Comments POCT JOSIE INFLUENZA A/B Routine 10/13/2021 3:33 PM EDT Fever, unspecified fever cause Influenza A Influenza B POCT JOSIE SARS ANTIGEN Routine 10/13/2021 11:35 AM EDT Fever, unspecified fever cause documented in this encounter Results * (ABNORMAL) POCT JOSIE INFLUENZA A/B (10/13/2021 3:33 PM EDT) Influenza A Antigen Positive(A ) Negative 10/13/2021 11:35 AM EDT [facility] [place] Influenza B Antigen Positive(A ) Negative 10/13/2021 11:35 AM EDT [facility] [place] Swab SPECIMEN FROM NASOPHARYNGEAL STRUCTURE / Unknown 10/13/2021 3:33 PM EDT 10/13/2021 11:35 AM EDT us Brian Hickman MD POINT OF CARE TEST ORDERABLES Final Result [facility] [address] [place] [phone] * POCT JOSIE SARS ANTIGEN (10/13/2021 11:35 AM EDT) SARS Antigen Negative Negative SEP OFFICE Lot Number SEP OFFICE Expiration Date SEP OFFICE SeriAl # SEP OFFICE Control Line Yes YES/NO SEP OFFICE 10/13/2021 11:3 5 AM EDT us Brian Hickman MD POINT OF CARE TEST ORDERABLES Final Result SEP OFF[facility] documented in this encounter Visit Diagnoses Diagnosis Fever, unspecified fever cause- Primary Influenza A Influenza with other respiratory manifestations Influenza B Influenza with other respiratory manifestations documented in this encounter Additional Health Concerns Infection Onset Date Last Indicated Resolved Time INFLUENZA 10/13/2021 10/13/2021 10/28/2021 10:1 2 PM EDT documented as of this encounter Care Teams Agency Development Manager Relationship Specialty Start Date End Date Steffanie Fulton APRN [address] [place] [address] PCP - General Nurse Practitioner 07/26/21 documented as of this encounter
--- OUTSIDE RECORDS SUMMARY | 2024-05-29 15:40 | XMS_ITS | Encounter Summary ---
Author Organization [place] [address] Care Team Providers Care Health Administrator Name Role Phone Steffanie Fulotn APRN Primary Care Provider +1- [phone] Reason for Visit * Reason Onset Date Comments ED Follow-Up Call 10/15/2021 Encounter Details Date Type Department Care Team (Late st Contact Info) Description 10/14/2021 Patient Outreach [facility] [address] [place], [place] [phone] Macarena Dover, SENIOR TECHNICAL ANALYST Follow-Up Call Social History Tobacco Use Types [...] of Assessment Author No 10/07/2020 8:08 AM Jaen Barajas MA documented as of this encounter Mental Status * Because of a physical, mental or emotional condition, does this person have serious difficulty concentrating, remembering or making decisions? Answer Entry Date Author No 10/07/2020 8:08 AM Jane Barajas MA documented in this encounter Progress Notes * Macarena Dover RN - 10/15/2021 12:03 PM EDT Emergency Department Follow-Up - General ED visit 1. Spoke with patient. 2. Tell me what events led up to you going to the ED? A. shortness of breath, chest pain, nausea/vomiting, 3. Have your symptoms improved? A. still feeling rough , coughing during conversation, shortness of breath still but no longer hurts to breath, using HHN, no fevers today, is drinking gatorade, taking tylenol and states he is taking his Tamiflu 4. Do you understand the discharge instructions provided by the ED? A. Yes 5. Additional education/resources provided: A. Rest B. Fluid Intake C. If symptoms worsen, contact provider 6. What medications were prescribed &/or changed during your ED visit? A. naproxen and Promethazine DM 7. Were you able to get your prescription(s) filled and picked up? A. No, patient states he cannot go back to the [facility] to pick them up and would like them sent to his normal Pharmacy ([facility] in [place]). I called [facility] [place] [facility]. 8. Have you had challenges affording your medications in the last 12 months? A. not addressed 9. Physician follow-up: A. Does the patient wish to schedule follow-up with PCP? Patient states they will contact office toschedule B. Did the ED suggest Specialty follow-up? Not Indicated on ED discharge summary C. Does the patient have a transportation barrier? not addressed 10. Do you feel stressed - tense, restless, nervous, or anxious, or unable to sleep at night? A. Did not address: . 11. What is the patient's baseline physical activity? A. How many minutes do you participate in planned physical activity per day? a. Did not address: . 12. Education provided regarding how to contact physician through: A. PCP office 13. Refresh Body already active- last log in 10/13/21 14. Socioeconomic questionnaire not addressed at this time. not addressed documented in this encounter Plan of Treatment Upcoming Encounters Date Type Department Care Team (Late st Contact Info) Description 06/28/2024 9:40 AM EST Clinical Support [facility] [address] [place] [address] 11/19/2024 1:40 PM EDT Office Visit SEP Neurology [facility] [address] [place] [address] Lyndsay Brewer DO [address] [place] [address] documented as of this encounter Goals Goal [...] as of this encounter Care Teams Health Administrator Relationship Specialty Start Date End Date Steffanie Fulton APRN [address] [place] [address] PCP - General Nurse Practitioner 07/26/21 documented as of this encounter
--- OUTSIDE RECORDS SUMMARY | 2024-05-29 15:40 | XMS_ITS | Encounter Summary ---
Author Organization [place] [address] Care Team Providers Care Paper Pattern Folder Name Role Phone Steffanie Fulton APRN Primary Care Provider +1- [phone] Reason for Visit * Reason Onset Date Comments Results 10/26/2021 Encounter Details Date Type Department Care Team (Late st Contact Info) Description 10/26/2021 Telephone [place] [address] Thao Escalante, JUDITH Results Social History Tobacco Use Types Packs/Day Years [...] Miscellaneous Notes * Telephone Encounter - Marcela De Leon MD - 10/27/2021 11:49 AM EDT noted * Telephone Encounter - Thao Escalante RN - 10/26/2021 2:04 PM EDT Spoke with patient regarding results and recommendations of CXR. F/U CT chest ordered and scheduledfor October 30. Will follow. documented in this encounter Plan of Treatment Upcoming Encounters Date Type Department Care Team (Late st Contact Info) Description 06/28/2024 9:40 AM EST Clinical Support [facility] [address] [place] [phone] 11/19/2024 1:40 PM EDT Office Visit [facility] [address] [place] [address] Lyndsay Brewer, DO [address] [place] [address] documented as of this encounter [...] documented as of this encounter Care Teams Paper Pattern Folder Relationship Specialty Start Date End Date Steffanie Fulton APRN [address] [place] [address] PCP - General Nurse Practitioner 07/26/21 documented as of this encounter
--- OUTSIDE RECORDS SUMMARY | 2024-05-29 15:40 | XMS_ITS | Encounter Summary ---
Author Organization [place] [address] Care Team Providers Care Tape Folding Machine Operator Name Role Phone Steffanie Fulton APRN Primary Care Provider +1- [phone] Encounter Details Date Type Department Care Team (Late st Contact Info) Description 10/22/2021 Orders Only [facility] [address] [place] [address] Marcela De Leon MD Social History Tobacco Use Types Packs/Day Years [...] MM Darius Take 1 Tablet by mouth 5 times daily for 10 days. 50 Darius 10/22/2021 10/26/2021 documented in this encounter Plan of Treatment Upcoming Encounters Date Type Department Care Team (Late st Contact Info) Description 06/28/2024 9:40 AM EST Clinical Support [facility] [address] [place] [phone] 11/19/2024 1:40 PM EDT Office Visit [facility] [address] [place] [phone] Lyndsay Brewer DO [address] [place] [address] documented as of this encounter [...] documented as of this encounter Care Teams Tape Folding Machine Operator Relationship Specialty Start Date End Date Steffanie Fulton APRN [address] [place] [address] PCP - General Nurse Practitioner 07/26/21 documented as of this encounter
--- OUTSIDE RECORDS SUMMARY | 2024-05-29 15:40 | XMS_ITS | Encounter Summary ---
Author Organization [facility] [place] [address] Care Team Providers Care Mint Machine Operator Name Role Phone Steffanie Fulton APRN Primary Care Provider +1- [phone] Encounter Details Date Type Department Care Team (Latest Contact Info) Description 10/30/2021 Travel Social History Tobacco Use Types Packs/Day [...] Clinical Support [facility] [address] [place] [phone] 11/19/2024 1:40 PM EDT Office Visit [facility] [address] [place] [address] Lyndsay Brewer DO [address] [place] [address] documented as of this encounter Goals Goal [...] on filedocumented in this encounter Care Teams Mint Machine Operator Relationship Specialty Start Date End Date Steffanie Fulton APRN [address] [place] [address] PCP - General Nurse Practitioner 07/26/21 documented as of this encounter
--- OUTSIDE RECORDS SUMMARY | 2024-05-29 15:40 | XMS_ITS | Encounter Summary ---
Author Organization [place] [address] Care Team Providers Care Graphics Intern Name Role Phone Steffanie Fulton APRN Primary Care Provider +1- [phone] Reason for Visit * Reason Comments Medication Refill Encounter Details Date Type Department Care Team (Late st Contact Info) Description 10/26/2021 Refill [facility] [address] [place] [address] Marcela De Leon MD Medication [...] TABLET BY MOUTH EVERY DAY 90 Tablet 10/28/2021 01/28/2022 documented in this encounter Miscellaneous Notes * Telephone Encounter - Chinyere Hicks CPhT - 10/28/2021 10:24 AM EDT amLODIPine- Medication Refill Protocol passed. [facility] Action: Approved refills to noted follow-up date by provider or protocol if no follow-up date noted. documented in this encounter Plan of Treatment Upcoming Encounters Date Type Department Care Team (Late st Contact Info) Description 06/28/2024 9:40 AM EST Clinical Support [facility] [address] [place] [phone] 11/19/2024 1:40 PM EDT Office Visit [facility] [address] [place] [phone] Lyndsay Brewer, DO [address] [place] [address] documented as of this encounter [...] hypertension Take 1 Tablet by mouth daily. 07/26/2021 10/28/2021 documented as of this encounter Additional Health Concerns Infection Onset Date Last Indicated Resolved Time INFLUENZA 10/13/2021 10/13/2021 10/28/2021 10:1 2 PM EDT documented as of this encounter Care Teams Graphics Intern Relationship Specialty Start Date End Date Steffanie Fulton APRN [address] [address] PCP - General Nurse Practitioner 07/26/21 documented as of this encounter
--- OUTSIDE RECORDS SUMMARY | 2024-05-29 15:40 | XMS_ITS | Encounter Summary ---
Author Organization [place] [address] Care Team Providers Care Cutter Machine Name Role Phone Steffanie Fulton APRN Primary Care Provider +1- [phone] Reason for Visit * Reason Comments Hospital Follow Up ED f/u for pneumonia Encounter Details Date Type Department Care Team (Late st Contact Info) Description 10/18/2021 2:45 PM EDT Office Visit [facility] [address] [place] [address] Marcela De Leon MD Pneumonia due to infectious organism, unspecified laterality, unspecified part of lung (Primary Dx) Social History Tobacco Use Types [...] Sign Reading Time Taken Comments Blood Pressure 152/88 10/18/2021 2:33 PM EDT Pulse 101 10/18/2021 2:33 PM EDT Temperature 36.2 ??C (97.2 ??F) 10/18/2021 2:33 PM ED T Respiratory Rate 18 10/18/2021 2:33 PM EDT Oxygen Saturation 96% 10/18/2021 2:33 PM EDT Inhaled Oxygen Concentration - - Weight 94.9 kg (209 lb 3.2 oz) 10/18/2021 2:33 P M EDT Height 170.2 cm (5' 7 ) 10/18/2021 2:33 PM EDT Body Mass Index 32.77 10/18/2021 2:33 PM EDT documented in this encounter Functional [...] Jane Garrido MA documented in this encounter Progress Notes * Marcela De Leon MD - 10/18/2021 2:45 PM EDT Vitals: 10/18/21 1433 BP: 152/88 BP Location: Left arm Patient Position: Sitting Pulse: 101 Resp: 18 Temp: 97.2 ??F (36.2 ??C) TempSrc: Temporal SpO2: 96% Weight: 209 lb 3.2 oz (94.9 kg) Height: 5' 7 (1.702 m) SUBJECTIVE: Chief Complaint Patient presents with ??? Hospital Follow Up ED f/u for pneumonia HPI: Hospital Follow-Up: Hospital/ER Follow-Up: Mr. Whitlock is a 55 y.o. male here for hospital follow up. He was admitted 10/18 and discharged 10/18 with a diagnosis of community acquired pneumonia. He was given levaquin and prednisone at [facility] last night. He is compliant with discharge medications / treatment. He is not having medication side effects. Review of Systems Constitutional: Negative for chills and fever. HENT: Negative for sinus pressure and sore throat. Eyes: Negative for redness and visual disturbance. Respiratory: Positive for cough and shortness of breath. Cardiovascular: Negative for chest pain. Gastrointestinal: Negative for abdominal pain. Endocrine: Negative for cold intolerance and heat intolerance. Genitourinary: Negative for difficulty urinating. Musculoskeletal: Negative for joint swelling. Skin: Negative for color change. Allergic/Immunologic: Negative for immunocompromised state. Neurological: Negative for dizziness. Hematological: Does not bruise/bleed easily. Psychiatric/Behavioral: Negative for confusion. The patient is not nervous/anxious. OBJECTIVE: Physical Exam Vitals reviewed. Constitutional: General: He is not in acute distress. Cardiovascular: Rate and Rhythm: Normal rate and regular rhythm. Pulmonary: Effort: Pulmonary effort is normal. Breath sounds: Normal breath sounds. No wheezing. Assessment Diagnoses and all orders for this visit: Pneumonia due to infectious organism, unspecified laterality, unspecified part of lung Comments: will get copy of lung CT done-may need repeat study documented in this encounter Miscellaneous Notes * Patient Instructions - Hermila Donnelly MA - 10/18/2021 2:34 PM EDT You may be contacted by [...] AM EST Clinical Support [facility] [address] [place] [phone] 11/19/2024 1:40 PM EDT Office Visit [facility] [address] [place] [address] Lyndsay Brewer DO [address] [place] [address] documented as of this encounter Goals Goal Patient Goal Type Associated Problems Recent Progress Patient-Stated? Author Blood Pressure < 140/90 Blood Pressure 134/84(2023 1:16 PM EST) No Yana Choi RMA Eat better, exercise, reach an ideal body weight General No Yana Choi RMA Stay Tobacco Free Lifestyle No Yana Choi RMA documented as of this encounter Visit Diagnoses Diagnosis Pneumonia due to infectious organism, unspecified laterality, unspecified part of lung- Primary documented in this encounter Historical Medications * This list may reflect changes made after this encounter. levoFLOXacin (LEVAQUIN) 500 mg Oral Tablet 10/18/2021 01/28/2022 fluticasone propionate (FLONASE) 50 mcg/actuation Nasl Dexter, Suspension 1 Dexter in each nostril daily. 09/07/2021 11/04/2021 added in this encounter Additional Health Concerns Infection Onset Date Last Indicated Resolved Time INFLUENZA 10/13/2021 10/13/2021 10/28/2021 10:1 2 PM EDT documented as of this encounter Care Teams Cutter Machine Relationship Specialty Start Date End Date Steffanie Fulton APRN [address] [place] [address] PCP - General Nurse Practitioner 07/26/21 documented as of this encounter
--- OUTSIDE RECORDS SUMMARY | 2024-05-29 15:40 | XMS_ITS | Encounter Summary ---
Author Organization [place] [address] Care Team Providers Care It Manager Name Role Phone Kirstin Steffanie KENT Primary Care Provider +1- [phone] Encounter Details Date Type Department Care Team (Late st Contact Info) Description 10/31/2021 Orders Only [facility] [address] [employer] [place] [phone] Kirstin SteffanieYOLI [address] [employer] [place] [address] Annual physical exam (Primary Dx) Social History [...] of Assessment Author No 10/07/2020 8:08 AM Jnae Barajas MA * Does this person have [...] Refills Last Filled Start Date End Date levoFLOXacin (LEVAQUIN) 500 mg Oral Tablet Take 1 Tablet by mouth daily for 7 days. 7 Tablet 10/31/2021 11/07/2021 documented in this encounter Plan of Treatment Upcoming Encounters Date Type Department Care Team (Late st Contact Info) Description 06/28/2024 9:40 AM EST Clinical Support [facility] [address] [phone] 11/19/2024 1:40 PM EDT Office Visit [facility] [address] [place] [address] Lyndsay Brewer, DO [address] [place] [address] documented as of this encounter [...] facility documented in this encounter Care Teams It Manager Relationship Specialty Start Date End Date Steffanie Fulton APRN [address] [place] [address] PCP - General Nurse Practitioner 07/26/21 documented as of this encounter
--- OUTSIDE RECORDS SUMMARY | 2024-05-29 15:40 | XMS_ITS | Encounter Summary ---
Author Organization [place] [address] Care Team Providers Care Staff Software Engineer Name Role Phone Steffanie Fulton APRN Primary Care Provider +1- [phone] Reason for Visit * Reason Onset Date Comments Medication Management 10/26/2021 clotrimazo le (MYCELEX) 10 mg MM Darius 50 Darius 0 10/22/2021 11/01/2021 Sig - Route: Take 1 Tablet by mouth 5 times daily for 10 days. - Oral Encounter Details Date Type Department Care Team (Late st Contact Info) Description 10/26/2021 Telephone [facility] [address] [place] [address] Kirstin SteffanieYOLI [address] [place] [address] Medication Management (clotrimazole (MYCELEX) 10 mg MM Darius 50 Darius 0 10/22/2021 11/01/2021 /Sig - Route: Take 1 Tablet by mouth 5 times daily for 10 days. - Oral //) Social History Tobacco Use Types Packs/Day Years [...] times daily for 10 days. 50 Darius 10/26/2021 11/05/2021 documented in this encounter Miscellaneous Notes * Telephone Encounter - Hermila Donnelly MA - 10/26/2021 11:08 AM EDT Sent. * Telephone Encounter - Aurora Whiting - 10/26/2021 10:17 AM EDT As per pt's girlfriend stated med sent to wrong pharm , please sent to [id number] [place] [address] [facility] [phone] clotrimazole (MYCELEX) 10 mg MM Darius 50 Darius 0 10/22/2021 11/01/2021 Sig - Route: Take 1 Tablet by mouth 5 times daily for 10 days. - Oral documented in this encounter Plan of Treatment Upcoming Encounters Date Type Department Care Team (Late st Contact Info) Description 06/28/2024 9:40 AM EST Clinical Support [facility] [address] [place] [address] 11/19/2024 1:40 PM EDT Office Visit [facility] [address] [place] [address] Lyndsay Brewer DO [address] [place] [address] documented as of this encounter Goals Goal Patient Goal Type Associated Problems Recent Progress Patient-Stated? Author Blood Pressure < 140/90 Blood Pressure 134/84(2023 1:16 PM EST) No Yana Choi, RMA Eat better, exercise, reach an ideal body weight General No Yana Choi G, RMA Stay Tobacco Free Lifestyle No Yana Choi RMNikki documented as of this encounter Visit Diagnoses Not on filedocumented in this encounter Discontinued Medications Medication Sig Discontinue Reason Start Date End Da te clotrimazole (MYCELEX) 10 mg MM Darius Take 1 Tablet by mouth 5 times daily for 10 days. Reorder 10/22/2021 10/26/2021 documented as of this encounter Additional Health Concerns Infection Onset Date Last Indicated Resolved Time INFLUENZA 10/13/2021 10/13/2021 10/28/2021 10:1 2 PM EDT documented as of this encounter Care Teams Staff Software Engineer Relationship Specialty Start Date End Date Steffanie Fulton APRN [address] [employer] [employer] [place] [address] PCP - General Nurse Practitioner 07/26/21 documented as of this encounter
--- OUTSIDE RECORDS SUMMARY | 2024-05-29 15:40 | XMS_ITS | Encounter Summary ---
Author Organization [facility] [place] [address] Care Team Providers Care Software Development Leader Name Role Phone Steffanie Fulton APRN Primary Care Provider +1- [phone] Encounter Details Date Type Department Care Team (Latest Contact Info) Description 10/29/2021 Travel Social History Tobacco Use Types Packs/Day [...] suspected to have Coronavirus/COVID-19? No / Unsure 10/29/2021 8:47 AM EDT documented as of this encounter [...] Clinical Support [facility] [address] [place] [phone] 11/19/2024 1:40 PM EDT Office Visit [facility] [address] [place] [address] Lyndsay Brewer DO [address] [place] [address] documented as of this encounter Goals Goal [...] on filedocumented in this encounter Care Teams Software Development Leader Relationship Specialty Start Date End Date Steffanie Fulton APRN [address] [place] [address] PCP - General Nurse Practitioner 07/26/21 documented as of this encounter
--- OUTSIDE RECORDS SUMMARY | 2024-05-29 15:40 | XMS_ITS | Encounter Summary ---
Author Organization [place] [address] Care Team Providers Care Wood Floor Layer Name Role Phone Steffanie Fulton APRN Primary Care Provider +1- [phone] Reason for Visit * Reason Comments Medication Refill Encounter Details Date Type Department Care Team (Late st Contact Info) Description 08/30/2021 Refill [facility] [address] [place] [address] Marcela De Leon MD Medication [...] Exposure Response Date Recorded In the last month, have you been in contact with someone who was confirmed or suspected to have Coronavirus / COVID-19? No / Unsure 08/02/2021 8:08 AM EST documented as of this encounter Functional Status [...] Telephone Encounter - Lore Schuler CPhT - 09/01/2021 9:21 AM EST amlodipine Medication refill requested too soon. Refill request denied. Refills sent on 07/26/21 with Qty: 30 and 2 refills. fire apparatus engineer did not contact pharmacy. Patient notified via MyChart (if MyChart active). documented in this encounter Plan of Treatment Upcoming Encounters Date Type Department Care Team (Late st Contact Info) Description 06/28/2024 9:40 AM EST Clinical Support [facility] [address] [place] [phone] 11/19/2024 1:40 PM EDT Office Visit [facility] [address] [place] [address] Lyndsay Brewer, DO [address] [place] [address] documented as of this encounter [...] hypertension documented in this encounter Care Teams Wood Floor Layer Relationship Specialty Start Date End Date Steffanie Fulton APRN [address] [place] [address] PCP - General Nurse Practitioner 07/26/21 documented as of this encounter
--- OUTSIDE RECORDS SUMMARY | 2024-05-29 15:40 | XMS_ITS | Encounter Summary ---
Author Organization [place] [address] Care Team Providers Care Hr Business Partner Consultant Name Role Phone Steffanie Fulton APRN Primary Care Provider +1- [phone] Reason for Visit * Reason Comments Hypertension f/u on meds Encounter Details Date Type Department Care Team (Late st Contact Info) Description 10/04/2021 3:45 PM EDT Office Visit [facility] [address] [place] [address] Marcela De Leon MD Essential hypertension (Primary Dx); Cough Social History Tobacco Use Types Packs/Day Years [...] Sign Reading Time Taken Comments Blood Pressure 130/80 10/04/2021 3:49 PM EDT Pulse 86 10/04/2021 3:49 PM EDT Temperature 37.1 ??C (98.8 ??F) 10/04/2021 3:49 PM ED T Respiratory Rate 16 10/04/2021 3:49 PM EDT Oxygen Saturation 95% 10/04/2021 3:49 PM EDT Inhaled Oxygen Concentration - - Weight 96.5 kg (212 lb 12.8 oz) 10/04/2021 3:49 PM EDT Height 170.2 cm (5' 7 ) 10/04/2021 3:49 PM EDT Body Mass Index 33.33 10/04/2021 3:49 PM EDT documented in this encounter Functional [...] Date predniSONE (DELTASONE) 20 mg Oral TabletIndications: Cough Take 1 Tablet by mouth 2 times daily. 14 Tablet 10/04/2021 01/28/2022 documented in this encounter Progress Notes * Marcela De Leon MD - 10/04/2021 3:45 PM EDT Vitals: 10/04/21 1549 BP: 130/80 BP Location: Left arm Patient Position: Sitting Pulse: 86 Resp: 16 Temp: 98.8 ??F (37.1 ??C) TempSrc: Temporal SpO2: 95% Weight: 212 lb 12.8 oz (96.5 kg) Height: 5' 7 (1.702 m) SUBJECTIVE: Chief Complaint Patient presents with ??? Hypertension f/u on meds HPI: Hypertension: Home reporting of hypertension was reviewed at time of visit. Zuhair denies any episodes of dizziness, lightheadedness, presyncope, syncope, headache, or chest pain. Zuhair does not report any new symptoms of possible hypertension sequelae. The patient reports that he is not having significant issues or side effects of current medications/treatments. Review of Systems Constitutional: Negative for chills and fever. HENT: Negative for sinus pressure and sore throat. Hoarseness Eyes: Negative for redness and visual disturbance. Respiratory: Positive for cough and wheezing. Negative for shortness of breath. Cardiovascular: Negative for chest pain. Gastrointestinal: Negative for abdominal pain. Endocrine: Negative for cold intolerance and heat intolerance. Genitourinary: Negative for difficulty urinating. Musculoskeletal: Negative for joint swelling. Skin: Negative for color change. Allergic/Immunologic: Negative for immunocompromised state. Neurological: Negative for dizziness. Hematological: Bruises/bleeds easily. Psychiatric/Behavioral: Negative for confusion. The patient is not nervous/anxious. OBJECTIVE: Physical Exam Vitals reviewed. Constitutional: General: He is not in acute distress. Cardiovascular: Rate and Rhythm: Normal rate and regular rhythm. Pulmonary: Effort: Pulmonary effort is normal. Breath sounds: Normal breath sounds. Assessment Diagnoses and all orders for this visit: Essential hypertension Comments: at goal Cough - predniSONE (DELTASONE) 20 mg Oral Tablet; Take 1 Tablet by mouth 2 times daily. Dispense: 14 Tablet; Refill: 0 to ENT if hoarseness persists documented in this encounter Miscellaneous Notes * Patient Instructions - Hermila Donnelly MA - 10/04/2021 3:45 PM EDT You may be contacted by [...] EST Clinical Support [facility] [address] [place] [address] 11/19/2024 1:40 PM EDT Office Visit [facility] [address] [place] [address] Lyndsay Brewer DO [address] [place] [address] documented as of this encounter Goals Goal Patient Goal Type Associated Problems Recent Progress Patient-Stated? Author Blood Pressure < 140/90 Blood Pressure 134/84(2023 1:16 PM EST) No Yana Choi RMA Eat better, exercise, reach an ideal body weight General No Yana Choi RMA Stay Tobacco Free Lifestyle No Yana Choi RMA documented as of this encounter Visit Diagnoses Diagnosis Essential hypertension- Primary Unspecified essential hypertension Cough documented in this encounter Discontinued Medications Medication Sig Discontinue Reason Start Date End Da te fluticasone propionate (FLONASE) 50 mcg/actuation Nasl Flasher, SuspensionIndications:Mode rate persistent asthma without complication 1 Flasher by Nasal route daily. Cancelled by 10/07/2020 10/04/2021 documented as of this encounter Care Teams Hr Business Partner Consultant Relationship Specialty Start Date End Date Steffanie Fulton APRN [address] [place] [address] [place] [id number] PCP - General Nurse Practitioner 07/26/21 documented as of this encounter
--- OUTSIDE RECORDS SUMMARY | 2024-05-29 15:40 | XMS_ITS | Encounter Summary ---
Author Organization [place] [address] Care Team Providers Care Buffer Copper Name Role Phone Kirstin Steffanie YOLI Primary Care Provider [phone]- [phone] Encounter Details Date Type Department Care Team (Late st Contact Info) Description 10/14/2021 Orders Only [facility] [address] [place] [phone] Kirstin SteffanieYOLI [address] [place] [address] Lung nodule (Primary Dx) Social History Tobacco Use Types [...] EST Clinical Support ANTOLIN SEPULVEDA [address] [place] [place] [phone] 11/19/2024 1:40 PM EDT Office Visit [facility] Neurology [facility] [address] [place] [phone] Lyndsay Brewer DO [address] [place] [address] documented as of this encounter Goals Goal Patient Goal Type Associated Problems Recent Progress Patient-Stated? Author Blood Pressure < 140/90 Blood Pressure 134/84(2023 1:16 PM EST) No Yana Choi RMA Eat better, exercise, reach an ideal body weight General No Yana Choi RMA Stay Tobacco Free Lifestyle No Yana Choi RMA documented as of this encounter Visit Diagnoses Diagnosis Lung nodule- Primary Solitary pulmonary nodule documented in this encounter Additional Health Concerns Infection Onset Date Last Indicated Resolved Time INFLUENZA 10/13/2021 10/13/2021 10/28/2021 10:1 2 PM EDT documented as of this encounter Care Teams Buffer Copper Relationship Specialty Start Date End Date Steffanie Fulton APRN [address] [place] [address] PCP - General Nurse Practitioner 07/26/21 documented as of this encounter
--- OUTSIDE RECORDS SUMMARY | 2024-05-29 15:40 | XMS_ITS | Encounter Summary ---
Author Organization [place] [address] Care Team Providers Care Plant Associate Name Role Phone Steffanie Fulton APRN Primary Care Provider [phone]- [phone] Reason for Visit * MRI/CAT Scan (Routine) - Closed Specialty Diagnoses / Procedures Referred By Contac t Referred To Contact Radiology Diagnoses Lung nodule Procedures CT CHEST WO CONTRAST CT RADHA LUNG NODULE FOLLOW UP Steffanie Fulton APRN [address] [place] [address] Phone: tel: fax: Referral ID Status Reason Start Date Expiration Date Visits Re quested Visits Authorized [id number] Closed 10/14/2021 10/14/2022 1 1 Encounter Details Date Type Department Care Team (Late st Contact Info) Description 10/30/2021 9:26 AM EDT - 10/30/2021 11:59 PM EDT Hospital Encounter [facility] [address] [place] [phone] Steffanie Fulton APRN [address] [place] [address] Lung nodule Discharge Disposition: Home or Self Care Social History Tobacco Use Types Packs/Day Years Used Date Smoking Tobacco: Never Smokeless Tobacco: Current Snuff Alcohol Use Standard Drinks/Week Comments No 0 (1 standard drink = 0.6 oz pur e alcohol) Overall Financial Resource Strain (CARDIA) Flores hayward Date Recorded How hard is it for [...] EDJane Guzman MA documented in this encounter Medications at Time of Discharge Nebulizer Accessories (ALL FLOW 4000 KIT) [facility] Formulary equivalent 1 Each 0 06/27/2012 ADVAIR DISKUS 500-50 mcg/dose Inhl Disk with DeviceIndications: Encounter for medication refill INHALE 1 PUFF BY MOUTH TWICE A DAY 180 Each 1 02/08/2021 2 albuterol (PROVENTIL HFA;VENTOLIN HFA) 90 mcg/actuation Inhl HFA Aerosol InhalerIndications :Encounter for medication refill INHALE 1 TO 2 PUFFS EVERY 4 HOURS NEEDED FOR WHEEZING. 6.7 Each 1 09/01/2021 2 betamethasone dipropionate (DIPROLENE) 0.05 % Top OintmentIndication s:Psoriasis APPLY TO AFFECTED AREA EVERY DAY 15 g 2 07/23/2021 2 clotrimazole (MYCELEX) 10 mg MM Darius Take 1 Tablet by mouth 5 times daily for 10 days. 50 Darius 10/26/2021 2 colestipoL (COLESTID) 1 gram Oral TabletIndications: Irritable bowel syndrome with diarrhea,Bile salt-induced diarrhea Take 1 Tablet by mouth 2 times daily. NEEDS AN APPOINTMENT 180 Tablet 06/28/2021 2 fluticasone propionate (FLONASE) 50 mcg/actuation Nasl [place], Suspension 1 [place] in each nostril daily. 09/07/2021 2 hydroCHLOROthiazid e (MICROZIDE) 12.5 mg Oral Capsule TAKE 1 CAPSULE BY MOUTH EVERY DAY 90 Capsule 09/01/2021 2 losartan (COZAAR) 50 mg Oral TabletIndications: Essential hypertension TAKE 1 TABLET BY MOUTH TWICE A DAY 180 Tablet 1 06/02/2021 2 montelukast (SINGULAIR) 10 mg Oral TabletIndications: Moderate persistent asthma without complication TAKE 1 TABLET BY MOUTH EVERY DAY AT NIGHT 90 Tablet 09/20/2021 2 naproxen (NAPROSYN) 500 mg Oral Tablet Take 1 Tablet by mouth 2 times daily as needed for Pain for up to 30 days. 30 Tablet 10/13/2021 2 promethazine-dextr omethorphan (PROMETHAZINE-DM) 6.25-15 mg/5 mL Oral Syrup Take 5 mL by mouth every 6 hours as needed for Other (cough) for up to 30 days. 60 mL 10/13/2021 2 tadalafiL (CIALIS) 5 mg Oral TabletIndications: BPH without urinary obstruction TAKE 1 TAB BY MOUTH NEEDED. FOR ERECTILE DYSFUNCTION (NOT COVERED) 90 Tablet 2 10/18/2021 3 tamsulosin (FLOMAX) 0.4 mg Oral CapsuleIndications :BPH without urinary obstruction TAKE 2 CAPSULES BY MOUTH NIGHTLY 180 Capsule 1 05/03/2021 2 documented as of this encounter Discharge Disposition Disposition Code Departure Means Destination Home or Self Care documented in this encounter Plan of Treatment Upcoming Encounters Date Type Department Care Team (Late st Contact Info) Description 06/28/2024 9:40 AM EST Clinical Support ANTOLIN [place] [address] [place] [phone] 11/19/2024 1:40 PM EDT Office Visit [facility]rology [facility] [address] [place] [phone] Lyndsay Brewer DO [address] [place] [address] documented as of this encounter Goals Goal [...] Name Priority Date/Time Associated Diagnosis Comments CT CHEST WO CONTRAST Routine 10/30/2021 9:39 AM EDT Lung nodule documented in this encounter Results * CT CHEST WO CONTRAST (10/30/2021 9:39 AM EDT) Anatomical Region Laterality Modality Chest Computed Tomogra phy 10/30/2021 9:39 AM EDT Addenda Addendum by Garry Leos MD on 11/09/2021 1:26 PM EDT ADDENDUM: The multidisciplinary pulmonary nodule evaluation board has reviewed this nodule and made the following recommendation based on the size and morphologic characteristics of the nodule, integrating old films for comparison when available. The likelihood of a primary lung cancer is felt to be Intermediate. ?? Recommendation: Referral to thoracic surgery for work-up ([phone]) ? The Multidisciplinary Team that reviewed this case was: ?? Radiology: Garry Leos MD ?? Thoracic Surgery: Per Urban MD Impressions 10/30/2021 10:10 AM EDT : 1. ??Segmentally distributed/peripheral groundglass and interstitial opacities within the left upper lobe, with areas of suspect mild bronchiolectasis superiorly in this location. This could represent sequela of infectious or inflammatory process with parenchymal scarring noted. 2. ??Within the right upper lobe there is nodular airspace disease in the subpleural region, which has a somewhat linear configuration however measuring 15 x 5 mm at the largest component. This will be submitted to the lung nodule review board for further management guidance. - Note: Radiology results need to be interpreted within a comprehensive clinical context. ??If you have questions about the radiology report, please contact the office of the ordering clinician. Narrative 10/30/2021 10:[address] CHEST WITHOUT CONTRAST, ??10/30/2021 9:39 AM CLINICAL HISTORY: ??R91.1-Solitary pulmonary [id number] COMPARISON: ??Chest x-ray October 13, 2021. PROCEDURE COMMENTS: Multi-detector CT of the chest with multiplanar reconstructions per protocol. ??No contrast given. FINDINGS: ??Cardiac chambers size is normal. Moderate coronary artery calcification. No pericardial effusion. Thoracic aorta is normal in course and in caliber. There is no mediastinal mass lesion. No lymphadenopathy identified within the chest. Limited evaluation of the upper abdomen is notable for incompletely imaged 7 cm left renal cyst. Patchy area of mixed groundglass and interstitial [...] 2.8 cm. No pleural effusion or pneumothorax. No acute or destructive osseous abnormality. Steffanie Fulton APRN IM CT ORDERABLES Edited R esult - Final documented in this encounter Visit Diagnoses Diagnosis Lung nodule Solitary pulmonary nodule documented in this encounter Care Teams Plant Associate Relationship Specialty Start Date End Date Steffanie Fulton APRN [address] [place], [place] [address] PCP - General Nurse Practitioner 07/26/21 documented as of this encounter
--- OUTSIDE RECORDS SUMMARY | 2024-05-29 15:40 | XMS_ITS | Encounter Summary ---
Author Organization [place] [address] Care Team Providers Care Site Monitor Name Role Phone Steffanie Fulton APRN Primary Care Provider [phone]- [phone] Encounter Details Date Type Department Care Team (Latest Contact Info) Description 10/29/2021 8:48 AM EDT - 10/29/2021 11:59 PM EDT Hospital Encounter [facility] [address] [place] [address] Discharge Disposition: Home or Self Care Social [...] Author No 10/07/2020 8:08 AM EDT Jane Garirdo MA * Is the person blind or [...] Discharge Nebulizer Accessories (ALL FLOW 4000 KIT) [facility] Formulary equivalent 1 Each 0 06/27/2012 ADVAIR [...] 2 fluticasone propionate (FLONASE) 50 mcg/actuation Nasl [place], Suspension 1 [place] in each nostril daily. 09/07/2021 2 hydroCHLOROthiazid [...] EST Clinical Support [facility] [address] [employer] [place] [phone] 11/19/2024 1:40 PM EDT Office Visit [facility] Neurology [facility] [address] [place] [phone] Lyndsay Brewer DO [address] [facility] [address] [place] [address] documented as of this encounter [...] on filedocumented in this encounter Care Teams Site Monitor Relationship Specialty Start Date End Date Steffanie Fulton APRN [address] [employer] [place] [address] PCP - General Nurse Practitioner 07/26/21 documented as of this encounter
--- OUTSIDE RECORDS SUMMARY | 2024-05-29 15:40 | XMS_ITS | Encounter Summary ---
Author Organization [place] [address] Care Team Providers Care Tumbler Machine Operator Name Role Phone Steffanie Fulton APRN Primary Care Provider +1- [phone] Reason for Visit * Reason Comments Shortness of Breath c/o sob and left yarely ed back pain. tested positive flu a and flu b Encounter Details Date Type Department Care Team (Late Contact Info) Description 10/13/2021 8:17 PM EDT - 10/13/2021 11:15 PM EDT Emergency [facility] [place] [address] Florencio West MD [address] [place] [address] [place] [address] Dyspnea, unspecified type (Primary Dx); Influenza; Pleuritic chest pain Discharge Disposition: Home or Self Care Social [...] Sign Reading Time Taken Comments Blood Pressure 120/100 10/13/2021 10:34 PM EDT Pulse 100 10/13/2021 10:58 PM EDT Temperature 37.2 ??C (99 ??F) 10/13/2021 6:41 PM EDT Respiratory Rate 18 10/13/2021 10:34 PM EDT Oxygen Saturation 98% 10/13/2021 10:34 PM EDT Inhaled Oxygen Concentration - - [...] this encounter Discharge Instructions * Discharge Instructions* Florencio West MD - 10/13/2021 10:53 PM EDT Rest and plenty of fluids Tylenol and/or ibuprofen as needed for fever/pain Medications as directed, and continue Tamiflu as previously directed. Contact your primary care doctor for follow up in 2-3 days Return as needed, persistent fever, vomiting or worsening of symptoms * Attachments The following attachments cannot be sent through Care Everywhere. * FLU, ADULT ED (DUTCH) (aka influenza virus infections) * Shortness of Breath, Adult ED (Uruguayan) * Shortness of Breath (Dyspnea) Discharge Instructions ([place]ayan) * Pleuritic Chest Pain ([place]ruguayan) * Pleuritic Chest Pain Discharge Instructions ([place]ayan) documented in this encounter Medications at Time of Discharge Nebulizer Accessories (ALL FLOW 4000 KIT) [facility] Formulary equivalent 1 Each 0 06/27/2012 ADVAIR DISKUS 500-50 mcg/dose Inhl Disk with DeviceIndications: Encounter for medication refill INHALE 1 PUFF BY MOUTH TWICE A DAY 180 Each 1 02/08/2021 2 albuterol (PROVENTIL HFA;VENTOLIN HFA) 90 mcg/actuation Inhl HFA Aerosol InhalerIndications :Encounter for medication refill INHALE 1 TO 2 PUFFS EVERY 4 HOURS NEEDED FOR WHEEZING. 6.7 Each 1 09/01/2021 2 amLODIPine (NORVASC) 5 mg Oral TabletIndications: Essential hypertension Take 1 Tablet by mouth daily. 30 Tablet 2 07/26/2021 2 betamethasone dipropionate (DIPROLENE) 0.05 % Top OintmentIndication s:Psoriasis APPLY TO AFFECTED AREA EVERY DAY 15 g 2 07/23/2021 2 colestipoL (COLESTID) 1 gram Oral TabletIndications: Irritable bowel syndrome with diarrhea,Bile salt-induced diarrhea Take 1 Tablet by mouth 2 times daily. NEEDS AN APPOINTMENT 180 Tablet 06/28/2021 2 fluticasone propionate (FLONASE) 50 mcg/actuation Nasl [place], Suspension 1 [place] in each nostril daily. 09/07/2021 2 hydroCHLOROthiazid [...] to 30 days. 30 Tablet 10/13/2021 2 oseltamivir (TAMIFLU) 75 mg Oral CapsuleIndications :Influenza A,Influenza B Take 1 Capsule by mouth 2 times daily for 5 days. 10 Capsule 10/13/2021 2 promethazine-dextr omethorphan (PROMETHAZINE-DM) 6.25-15 mg/5 mL Oral Syrup Take 5 mL by mouth every 6 hours as needed for Other (cough) for up to 30 days. 60 mL 10/13/2021 2 tadalafiL (CIALIS) 5 mg Oral TabletIndications: BPH without urinary obstruction Take 1 Tab by mouth as needed. for erectile dysfunction 90 Tab 2 01/07/2021 2 tamsulosin (FLOMAX) 0.4 mg Oral CapsuleIndications :BPH without urinary obstruction TAKE 2 CAPSULES BY MOUTH NIGHTLY 180 Capsule 1 05/03/2021 2 documented as of this encounter Ordered Prescriptions Prescription Sig Dispense Quantity Refills Last Filled Start Date End Date promethazine-dextr omethorphan (PROMETHAZINE-DM) 6.25-15 mg/5 mL Oral Syrup Take 5 mL by mouth every 6 hours as needed for Other (cough) for up to 30 days. 60 mL 10/13/2021 11/12/2021 naproxen (NAPROSYN) 500 mg Oral Tablet Take 1 Tablet by mouth 2 times daily as needed for Pain for up to 30 days. 30 Tablet 10/13/2021 11/12/2021 documented in this encounter Discharge Disposition Disposition Code Departure Means Destination Home or Self Long Term documented in this encounter ED Notes * Florencio West MD - 10/13/2021 6:25 PM EDT Chief Complaint Patient presents with ??? Shortness of Breath c/o sob and left sided back pain. tested positive flu a and flu b 55-year-old white male presents to the ED complaining of shortness of breath and sharp left anterior and posterior chest pain that increases with deep inspiration and coughing. Patient states he developed a nonproductive cough, chest pain and shortness of breath last night. Subjective fever with nausea, without vomiting, diarrhea, abdominal pain. He was seen earlier today and diagnosed with both influenza A and influenza B. He was started on oral Tamiflu. He presents complaining of the aforementioned pain and shortness of breath. He denies vertigo, syncope. Denies additional URI symptoms. No other problems or concerns were identified Past medical history--asthma, hypertension, anxiety Social history--denies tobacco or alcohol use Shortness of Breath Associated symptoms: chest pain, cough and fever Associated symptoms: no abdominal pain, no rash and no vomiting Patient History Allergies Allergen Reactions ??? Abilify [Aripiprazole] Other (See Comments) convulsions ??? Unable To Assess Patient does not take any narcotic medications Home Medications: Prior to Admission medications Medication Sig Start Date End Date Taking? Authorizing Provider ADVAIR DISKUS 500-50 mcg/dose Inhl Disk with Device INHALE 1 PUFF BY MOUTH TWICE A DAY 02/08/21 Steffanie Fulton APRN albuterol (PROVENTIL HFA;VENTOLIN HFA) 90 mcg/actuation Inhl HFA Aerosol Inhaler INHALE 1 TO 2 PUFFS EVERY 4 HOURS NEEDED FOR WHEEZING. 09/01/21 Steffanie Fulton APRN albuterol (PROVENTIL) 2.5 mg /3 mL (0.083 %) Inhl Solution for Nebulization Take 3 mL by nebulization every 4 hours as needed for Wheezing. 10/19/20 Michelle Garrido APRN amLODIPine (NORVASC) 5 mg Oral Tablet Take 1 Tablet by mouth daily. 07/26/21 Marcela De Leon MD betamethasone dipropionate (DIPROLENE) 0.05 % Top Ointment APPLY TO AFFECTED AREA EVERY DAY 07/23/21Michelle Garrido APRN celecoxib (CELEBREX) 200 mg Oral Capsule 06/28/21 Blanche, Mattie colestipoL (COLESTID) 1 gram Oral Tablet Take 1 Tablet by mouth 2 times daily. NEEDS AN APPOINTMENT06/28/21 Michael Mckeon MD diclofenac (VOLTAREN) 1 % Top Gel APPLY 2 GRAMS TOPICALLY 4 TIMES DAILY DIRECTED. 08/16/21 Marcela De Leon MD hydroCHLOROthiazide (MICROZIDE) 12.5 mg Oral Capsule TAKE 1 CAPSULE BY MOUTH EVERY DAY 09/01/21 Steffanie Fulton APRN losartan (COZAAR) 50 mg Oral Tablet TAKE 1 TABLET BY MOUTH TWICE A DAY 06/02/21 Steffanie Fulton APRN montelukast (SINGULAIR) 10 mg Oral Tablet TAKE 1 TABLET BY MOUTH EVERY DAY AT NIGHT 09/20/21 Steffanie Fulton APRN Nebulizer Accessories (ALL FLOW 4000 KIT) [facility] Formulary equivalent 06/27/12 Carola Arcos MD oseltamivir (TAMIFLU) 75 mg Oral Capsule Take 1 Capsule by mouth 2 times daily for 5 days. 10/13/21 10/18/21 Brian Hickman MD pravastatin (PRAVACHOL) 20 mg Oral Tablet TAKE 1 TABLET BY MOUTH EVERY DAY IN THE EVENING 06/14/21 Steffanie Fulton APRN predniSONE (DELTASONE) 20 mg Oral Tablet Take 1 Tablet by mouth 2 times daily. 10/04/21 Marcela De Leon MD tadalafiL (CIALIS) 5 mg Oral Tablet Take 1 Tab by mouth as needed. for erectile dysfunction 01/07/21Michelle Garrido APRN tamsulosin (FLOMAX) 0.4 mg Oral Capsule TAKE 2 CAPSULES BY MOUTH NIGHTLY 05/03/21 Michelle Garrido APRN Past Medical History: Past Medical History: [...] REVISION-ANTERIOR ; Surgeon: Augie Ramires MD; Location: [facility] OR; Service: Orthopedics ??? KNEE SURGERY LEFT [...] Review of Systems Review of Systems Constitutional: Positive for fever. Negative for chills. HENT: Negative. Eyes: Negative. Respiratory: Positive for cough and shortness of breath. Cardiovascular: Positive for chest pain. Negative for palpitations and leg swelling. Gastrointestinal: Positive for nausea. Negative for abdominal pain, diarrhea and vomiting. Genitourinary: Negative for flank pain. Musculoskeletal: Positive for back pain. Skin: Negative for rash. Neurological: Negative. All other systems reviewed and are negative. Physical Exam Blood pressure 134/77, pulse 99, temperature 99 ??F (37.2 ??C), temperature source Oral, resp. rate(!) 22, SpO2 97 %. Physical Exam Vitals and nursing note reviewed. Constitutional: General: He is not in acute distress. Appearance: He is well-developed. Comments: Well-nourished adult white male in no apparent distress HENT: Head: Normocephalic and atraumatic. Mouth/Throat: Mouth: Mucous membranes are moist. Pharynx: Oropharynx is clear. Eyes: Conjunctiva/sclera: Conjunctivae normal. Pupils: Pupils are equal, round, and reactive to light. Neck: Vascular: No JVD. Cardiovascular: Rate and Rhythm: Normal rate and regular rhythm. Pulses: Normal pulses. Heart sounds: Normal heart sounds. Pulmonary: Effort: Pulmonary effort is normal. Breath sounds: Normal breath sounds. Chest: Chest wall: No tenderness. Abdominal: General: Bowel sounds are normal. Palpations: Abdomen is soft. Tenderness: There is no abdominal tenderness. Musculoskeletal: General: No tenderness. Cervical back: Normal range of motion and neck supple. Right lower leg: No tenderness. No edema. Left lower leg: No tenderness. No edema. Skin: General: Skin is warm and dry. Capillary Refill: Capillary refill takes less than 2 seconds. Neurological: General: No focal deficit present. Mental Status: He is alert and oriented to person, place, and time. Psychiatric: Mood and Affect: Mood normal. Procedures Radiology/EKG/Labs: Results for orders placed or performed during the hospital encounter of 10/13/21 XR CHEST PA AND LATERAL Narrative PA AND LATERAL CHEST X-RAY, 10/13/2021 8:55 PM CLINICAL HISTORY: -SHORTNESS OF BREATH COMPARISON: 05/28/2021 PROCEDURE COMMENTS: Frontal and lateral views of the chest. FINDINGS: Emphysematous changes. Small area of scarring in the right upper lobe. There is a new opacity in the left upper lung measuring 2.5 cm. It could represent a small focal infiltrate with nodule not entirely excluded. Remaining chest is clear. Impression Left upper lobe opacity indeterminate for small infiltrate versus nodule. Recommend follow-up radiographs in 2 weeks to reassess. - Note: Radiology results need to be interpreted within a comprehensive clinical context. If you have questions about the radiology report, please contact the office of the ordering clinician. ED Course: Appropriate laboratory and radiology studies reviewed Patient was seen and evaluated. Following his initial evaluation, diagnostic studies were obtained and the patient was given IM Toradol. He was resting quietly in no apparent distress with no overt dyspnea while in the ED. Diagnostic studies as noted above. Patient presents after he tested positivefor influenza earlier today, with pleuritic type left-sided chest pain and shortness of breath. Hisclinical exam is unremarkable. He has a subtle opacity in his left upper lobe as noted on chest x-ray, yet my clinical concern for bacterial pneumonia necessitating antibiotics is low. I discussed this at length with the patient, who stated he was comfortable being discharged home with instructionson symptomatic treatment, prescriptions for Naprosyn and Phenergan DM, and instructions to continueTamiflu as previously directed. Primary care follow-up if his symptoms persist or return if his symptoms worsen. Patient agrees with this plan of care ED Clinical Impression: #1 dyspnea 2. Influenza 3. Pleuritic chest pain Critical Care time Condition at Discharge/Transfer from Department: Stable This chart was completed using voice recognition technology and may contain unintended errors Florencio West MD 10/13/21 8412 documented in this encounter Plan of Treatment Upcoming Encounters Date Type Department Care Team (Late st Contact Info) Description 06/28/2024 9:40 AM EST Clinical Support ANTOLIN [place] [address] [place], [place] [phone] 11/19/2024 1:40 PM EDT Office Visit [facility]P Neurology [facility] [address] [place] [phone] Lyndsay Brewern, [address] [place] [address] documented as of this encounter Goals Goal [...] Diagnosis Comments XR CHEST PA AND LATERAL EULOGIO 10/13/2021 8:55 PM EDT documented in this encounter Results * XR CHEST PA AND LATERAL (10/13/2021 8:55 PM EDT) Anatomical Region Laterality Modality Chest Radiographic Pauly ging 10/13/2021 8:55 PM EDT Impressions 10/13/2021 9:01 PM EDT Left upper lobe opacity indeterminate for small infiltrate versus nodule. Recommend follow-up radiographs in 2 weeks to reassess. - Note: Radiology results need to be interpreted within a comprehensive clinical context. ??If you have questions about the radiology report, please contact the office of the ordering clinician. Narrative 10/13/2021 9:01 PM EDT PA AND LATERAL CHEST X-RAY, ??10/13/2021 8:55 PM CLINICAL HISTORY: ??-SHORTNESS OF BREATH COMPARISON: ??05/28/2021 PROCEDURE COMMENTS: Frontal and lateral views of the chest. FINDINGS: Emphysematous changes. Small area of scarring in the right upper lobe. There is a new opacity in the left upper lung measuring 2.5 cm. It could represent a small focal infiltrate with nodule not entirely excluded. Remaining chest is clear. Procedure Note Rishi Ridley MD - 10/13/2021 PA AND LATERAL CHEST X-RAY, 10/13/2021 8:55 PM CLINICAL HISTORY: -SHORTNESS OF BREATH COMPARISON: 05/28/2021 PROCEDURE COMMENTS: Frontal and lateral views of the chest. FINDINGS: Emphysematous changes. Small area of scarring in the right upperlobe. There is a new opacity in the left upper lung measuring 2.5 cm. It could represent a small focal infiltrate with nodule not entirely excluded.Remaining chest is clear. IMPRESSION: Left upper lobe opacity indeterminate for small infiltrate versus nodule. Recommend follow-up radiographs in 2 weeks to reassess. - Note: Radiology results need to be interpreted within a comprehensiveclinical context. If you have questions about the radiology report, please contactthe office of the ordering clinician. us Florencio West MD [facility] FAJARDO Final Result documented in this encounter Visit Diagnoses Diagnosis Dyspnea, unspecified type- Primary Influenza Influenza with other respiratory manifestations Pleuritic chest pain Painful respiration documented in this encounter Administered Medications Inactive Administered Medications - up to 1 most recent administrations Medication Order MAR Action Action Date Dose Rate Site ketorolac (TORADOL) injection 30 mg 30 mg, Intramuscular, ONCE, 1 dose, On Mon10/13/21 at 2044, Maximum IV dose is 30mg Given 10/13/2021 9:02 PM EDT 30 mg Right Arm documented in this encounter Active and Recently Administered Medications Times are shown in EDT. Scheduled Medication Order 10/11/2021 10/12/2021 10/13/2021 ketorolac (TORADOL) injection 30 mg (COMPLETED) 30 mg, Intramuscular, ONCE, 1 dose, On Mon10/13/21 at 2045, Maximum IV dose is 30mg 2101 (Given - Provid er: Triny Wynn RN) documented in this encounter Additional Health Concerns Infection Onset Date Last Indicated Resolved Time INFLUENZA 10/13/2021 10/13/2021 10/28/2021 10:1 2 PM EDT documented as of this encounter Care Teams Tumbler Machine Operator Relationship Specialty Start Date End Date Steffanie Fulton APRN [address] [place] [address] PCP - General Nurse Practitioner 07/26/21 documented as of this encounter
--- OUTSIDE RECORDS SUMMARY | 2024-05-29 15:40 | XMS_ITS | Encounter Summary ---
Author Organization [place] [address] Care Team Providers Care Matrix Bath Operator Name Role Phone KirstinSteffanie YOLI Primary Care Provider +1- [phone] Reason for Visit * Reason Comments Medication Refill Encounter Details Date Type Department Care Team (Late st Contact Info) Description 10/20/2021 Refill [facility] [address] [place] [address] Michelle Garrido APRN Medication Refill [...] Clinical Support [facility] [address] [place] [phone] 11/19/2024 1:40 PM EDT Office Visit [facility] Neurology [facility] [address] [place] [address] Lyndsay Brewer DO [address] [place] [address] documented as of this encounter Goals Goal Patient Goal Type Associated Problems Recent Progress Patient-Stated? Author Blood Pressure < 140/90 Blood Pressure 134/84(2023 1:16 PM EST) No Yana Choi RMA Eat better, exercise, reach an ideal body weight General No Yana Choi RMA Stay Tobacco Free Lifestyle No Yana Choi RMJane documented as of this encounter Visit Diagnoses Diagnosis Psoriasis Other psoriasis documented in this encounter Additional Health Concerns Infection Onset Date Last Indicated Resolved Time INFLUENZA 10/13/2021 10/13/2021 10/28/2021 10:1 2 PM EDT documented as of this encounter Care Teams Matrix Bath Operator Relationship Specialty Start Date End Date Steffanie Fulton APRN [address] [place] [address] PCP - General Nurse Practitioner 07/26/21 documented as of this encounter
--- OUTSIDE RECORDS SUMMARY | 2024-05-29 15:40 | XMS_ITS | Encounter Summary ---
Author Organization [place] [address] Care Team Providers Care Still Tender Name Role Phone Kirstin Steffanie YOLI Primary Care Provider +1- [phone] Reason for Visit * Reason Comments Medication Refill Encounter Details Date Type Department Care Team (Late st Contact Info) Description 10/20/2021 Refill [facility] [address] [facility] [phone] YolandanilsonSteffanieYOLI [address] [place] [address] Medication Refill Social History Tobacco Use Types [...] EST Clinical Support ANTOLIN [place] [address] [place] [phone] 11/19/2024 1:40 PM EDT Office Visit [facility] Neurology [facility] [address] [place] [address] Lyndsay Brewer DO [address] [place] [address] documented as of this encounter [...] of repeat prescriptions documented in this encounter Additional Health Concerns Infection Onset Date Last Indicated Resolved Time INFLUENZA 10/13/2021 10/13/2021 10/28/2021 10:1 2 PM EDT documented as of this encounter Care Teams Still Tender Relationship Specialty Start Date End Date Steffanie Fulton APRN [address] [place] [address] PCP - General Nurse Practitioner 07/26/21 documented as of this encounter
--- OUTSIDE RECORDS SUMMARY | 2024-05-29 15:40 | XMS_ITS | Encounter Summary ---
Author Organization [place] [address] Care Team Providers Care Riprap Man Name Role Phone KirstinSteffanie YOLI Primary Care Provider +1- [phone] Reason for Visit * Reason Comments Medication Refill Encounter Details Date Type Department Care Team (Late st Contact Info) Description 11/01/2021 Refill [facility] [address] [place] [address] Michelle Garrido APRN Medication Refill [...] Refills Last Filled Start Date End Date fluticasone propionate (FLONASE) 50 mcg/actuation Nasl [place], SuspensionIndicatio ns:Moderate persistent asthma, uncomplicated SPRAY 1 SPRAY INTO EACH NOSTRIL EVERY DAY 32 mL 1 11/04/2021 betamethasone dipropionate (DIPROLENE) 0.05 % Top OintmentIndications :Psoriasis APPLY TO AFFECTED AREA EVERY DAY 15 g 2 11/04/2021 tamsulosin (FLOMAX) 0.4 mg Oral CapsuleIndications: BPH without urinary obstruction TAKE 2 CAPSULES BY MOUTH NIGHTLY 180 Capsule 1 11/04/2021 2 documented in this encounter Miscellaneous Notes * Telephone Encounter - Sonia Alvarado CPhT - 11/04/2021 9:04 AM EDT Betamethasone- Medication Refill Protocol not available for this medication. Routed to office staff. Fluticasone- Medication Refill Protocol not available for this medication. Routed to office staff. Tamsulosin- Medication Refill Protocol not available for this medication. Routed to office staff. documented in this encounter Plan of Treatment Upcoming Encounters Date Type Department Care Team (Late st Contact Info) Description 06/28/2024 9:40 AM EST Clinical Support ANTOLIN [place] [address] [place] [address] 11/19/2024 1:40 PM EDT Office Visit [facility] Neurology [facility] [address] [place] [address] Lyndsay Brewer DO [address] [place] [address] documented as of this encounter [...] encounter Visit Diagnoses Diagnosis Psoriasis Other psoriasis BPH without urinary obstruction Hypertrophy of prostate without urinary obstruction and other lower urinary tract symptoms (LUTS) Moderate persistent asthma, uncomplicated Unspecified asthma documented in this encounter Discontinued Medications Medication Sig Discontinue Reason Start Date End Da te tamsulosin (FLOMAX) 0.4 mg Oral CapsuleIndications:BPH without urinary obstruction TAKE 2 CAPSULES BY MOUTH NIGHTLY 05/03/2021 11/04/2021 betamethasone dipropionate (DIPROLENE) 0.05 % Top OintmentIndications:Psor iasis APPLY TO AFFECTED AREA EVERY DAY 07/23/2021 11/04/2021 fluticasone propionate (FLONASE) 50 mcg/actuation Nasl [place], Suspension 1 [place] in each nostril daily. 09/07/2021 11/04/2021 documented as of this encounter Care Teams Riprap Man Relationship Specialty Start Date End Date Steffanie Fulton APRN [address] [place] [address] PCP - General Nurse Practitioner 07/26/21 documented as of this encounter
--- OUTSIDE RECORDS SUMMARY | 2024-05-29 15:40 | XMS_ITS | Encounter Summary ---
Author Organization [place] [address] Care Team Providers Care Window Glazier Helper Name Role Phone Steffanie Fulton APRN Primary Care Provider [phone]- [phone] Encounter Details Date Type Department Care Team (Late st Contact Info) Description 10/29/2021 Orders Only [facility] [address] [place], [place] [id number] Karishma Mirza, Bruising Social History Tobacco Use Types Packs/Day Years [...] EST Clinical Support [facility] [address] [place] [phone] 11/19/2024 1:40 PM EDT Office Visit SEP Neurology [facility] [address] [place] [phone] Lyndsay Brewer, DO [address] [place] [address] documented as of this encounter [...] Procedure Name Priority Date/Time Associated Diagnosis Comments PT / INR Routine 10/29/2021 8:52 AM EDT Bruising CBC WITH DIFF Routine 10/29/2021 8:52 AM EDT Bruising COMPREHENSIVE METABOLIC PANEL Routine 10/29/2021 8:52 AM EDT Bruising documented in this encounter Results * (ABNORMAL) PT / INR (10/29/2021 8:52 AM EDT) PT 9.9(L) 10.0 - 13.1 second(s) 10/29/2021 4:15 PM EDT [facility] INR 0.89 0.89 - 1.17 no units 10/29/2021 4:15 PM EDT [facility] Comment: Level of Therapy ? Indications ?Target INR Range Standard Dose Treatment and prophylaxis of venous ? 2.0 - 3.0 ? thrombosis, pulmonary embolism High Dose ? High risk patients with mechanical ? 2.5 - 3.5 ? heart valves Blood VENOUS BLOOD / Unknown Venipuncture / Unknown 10/29/2021 8:52 AM EDT 10/29/2021 8:52 AM EDT us Steffanie Gastright TEST ENGINE EVALUATOR HEMATOLOGY ORDERABLES Karina l Result [facility] [address] [facility] , [place] [address] * (ABNORMAL) COMPREHENSIVE METABOLIC PANEL (10/29/2021 8:52 AM EDT) Sodium 139 136 - 145 mmol/L 10/29/2021 5:40 PM EDT [facility] Potassium 4.3 3.5 - 5.0 mmol/L 10/29/2021 5:40 PM EDT [facility] Chloride 103 98 - 107 mmol/L 10/29/2021 5:40 PM EDT [facility] Total CO2 26 22 - 29 mmol/L 10/29/2021 5:40 PM EDT [facility] Anion Gap 10 7 - 16 mmol/L 10/29/2021 5:40 PM EDT [facility] Calcium 9.9 8.6 - 10.4 mg/dL 10/29/2021 5:40 PM EDT [facility] Glucose Lvl 111(H) 74 - 100 mg/dL 10/29/2021 5:40 PM EDT [facility] BUN 16 6 - 20 mg/dL 10/29/2021 5:40 PM EDT [facility] Creatinine 1.03 0.67 - 1.30 mg/dL 10/29/2021 5:40 PM EDT [facility] Albumin 4.3 3.5 - 5.2 gm/dL 10/29/2021 5:40 PM EDT [facility] Total Protein 7.0 6.4 - 8.3 gm/dL 10/29/2021 5:40 PM EDT [facility] Bili Total 0.2 0.1 - 1.4 mg/dL 10/29/2021 5:40 PM EDT [facility] ALT 36 <=41 U/L 10/29/2021 5:40 PM EDT [facility] AST 31 <=40 U/L 10/29/2021 5:40 PM EDT [facility] Alk Phos 103 40 - 129 U/L 10/29/2021 5:40 PM EDT [facility] eGFR (CKD-EPIcr 2020) 87 >=60 mL/min/1.7 3 m2 10/29/2021 5:40 PM EDT [facility] Comment:Estimated GFR was ca lculated using the CKD-EPIcr (2020) equation refit without race. The equation is recommended by the National Kidney Foundation - [place] [employer] Nephrology Task Force. Blood VENOUS BLOOD / Unknown Venipuncture / Unknown 10/29/2021 8:52 AM EDT 10/29/2021 8:52 AM EDT us Steffanie Gastright TEST ENGINE EVALUATOR CHEMISTRY ORDERABLES Final Result [facility] [address], [address] [place] [id number] [facility] [address] [place] [address] * (ABNORMAL) CBC WITH DIFF (10/29/2021 8:52 AM EDT) WBC 6.3 3.7 - 10.3 x10(3)/mcL 10/29/2021 5:47 PM EDT [facility] RBC 4.17(L) 4.60 - 6.10 x10(6)/mcL 10/29/2021 5:47 PM EDT [facility] Hgb 13.7 13.7 - 17.5 g/dL 10/29/2021 5:47 PM EDT [facility] Hct 41.5 40.0 - 51.0 % 10/29/2021 5:47 PM EDT [facility] MCV 99.5 80.0 - 100.0 fL 10/29/2021 5:47 PM EDT [facility] MCH 32.9 26.0 - 34.0 pg 10/29/2021 5:47 PM EDT [facility] MCHC 33.0 30.7 - 35.5 g/dL 10/29/2021 5:47 PM EDT [facility] RDW 13.5 <=14.9 % 10/29/2021 5:47 PM EDT [facility] Platelet 258 155 - 369 x10(3)/mcL 10/29/2021 5:47 PM EDT [facility] MPV 9.7 8.8 - 12.5 fL 10/29/2021 5:47 PM EDT [facility] Neut Percent 63.4 % 10/29/2021 5:47 PM EDT [facility] Comment:Neutrophils equals s egs plus bands Imm Gran% 1.6 % 10/29/2021 5:47 PM EDT [facility] Comment:Automated count of m etamyelocytes, myelocytes and promyelocytes. IG >1% represents a left shift and provides an early indication of an infection or inflammatory process. Lymph Percent 22.3 % 10/29/2021 5:47 PM EDT [facility] Boyle Percent 10.6 % 10/29/2021 5:47 PM EDT [facility] Eos Percent 1.6 % 10/29/2021 5:47 PM EDT [facility] Baso Percent 0.5 % 10/29/2021 5:47 PM EDT [facility] Neut # 4.0 1.6 - 6.1 x10(3)/mcL 10/29/2021 5:47 PM EDT [facility] Comment:Neutrophils equals s egs plus bands IMMGRAN# 0.1 0.0 - 0.1 x10(3)/mcL 10/29/2021 5:[address] [facility] Comment:Automated count of m etamyelocytes, myelocytes and promyelocytes. An absolute IG <0.1 is reported as 0.0. Lymph # 1.4 1.2 - 3.9 x10(3)/mcL 10/29/2021 5:47 PM EDT [facility] Boyle # 0.7 0.3 - 0.9 x10(3)/mcL 10/29/2021 5:47 PM EDT [facility] Eos# 0.1 0.0 - 0.5 x10(3)/mcL 10/29/2021 5:47 PM EDT [facility] Baso # 0.0 0.0 - 0.1 x10(3)/mcL 10/29/2021 5:47 PM EDT [facility] Blood Venipuncture / Unknown 10/29/2021 8:52 AM EDT 10/29/2021 8:52 AM EDT Steffanie Fulton TEST ENGINE EVALUATOR HEMATOLOGY ORDERABLES Karina l Result [facility] [address] [facility] , [address] [place] [id number] documented in this encounter Visit Diagnoses Diagnosis Bruising Contusion of unspecified site documented in this encounter Care Teams Window Glazier Helper Relationship Specialty Start Date End Date Steffanie Fulton APRN [address] [phone] PCP - General Nurse Practitioner 07/26/21 documented as of this encounter
--- OUTSIDE RECORDS SUMMARY | 2024-05-29 15:40 | XMS_ITS | Encounter Summary ---
Author Organization [place] [address] Care Team Providers Care Side Show Entertainer Name Role Phone Steffanie Fulton APRN Primary Care Provider +1- [phone] Reason for Visit * Reason Comments Cough Chills Diarrhea Generalized Body Aches Encounter Details Date Type Department Care Team (Late st Contact Info) Description 09/01/2021 9:15 AM EST Office Visit [facility] [address] [place] [phone] Steffanie Fulton APRN [address] [place] [address] Influenza (Primary Dx) Social History Tobacco Use Types [...] AM EST documented as of this encounter Last Filed Vital Signs Vital Sign Reading Time Taken Comments Blood Pressure 150/100 09/01/2021 9:22 AM EST Pulse 81 09/01/2021 9:22 AM EST Temperature 37 ??C (98.6 ??F) 09/01/2021 9:22 AM EST Respiratory Rate - - Oxygen Saturation 98% 09/01/2021 9:22 AM EST Inhaled Oxygen Concentration - - Weight 99.3 kg (219 lb) 09/01/2021 9:22 AM EST Height 170.2 cm (5' 7 ) 09/01/2021 9:22 AM EST Body Mass Index 34.3 09/01/2021 9:22 AM EST documented in this encounter Functional [...] oseltamivir (TAMIFLU) 75 mg Oral CapsuleIndications :Influenza Take 1 Capsule by mouth 2 times daily for 5 days. 10 Capsule 09/01/2021 documented in this encounter Progress Notes * Steffanie Fulton APRN - 09/01/2021 9:15 AM EST Vitals: 09/01/21 0922 BP: (!) 150/100 Pulse: 81 Temp: 98.6 ??F (37 ??C) TempSrc: Temporal SpO2: 98% Weight: 219 lb (99.3 kg) Height: 5' 7 (1.702 m) SUBJECTIVE: Chief Complaint Patient presents with ??? Cough ??? Chills ??? Diarrhea ??? Generalized Body Aches HPI: URI/Sinus symptoms: ?? complains of congestion, sore throat, post nasal drip, productive cough, chills and hoarseness for 2 days. ?? Associated symptoms include fatigue and dirrhea. ?? Symptom severity is described as Moderate and show no change. ?? What treatments have you tried at home? Breathing treatments, throat spray ?? Are home treatments impacting your symptoms at all? Network Systems Administrator ?? Do you get recurrent or seasonal symptoms multiple times per year? yes ?? Do you have any history of lung disease, asthma, or recurrent allergies? yes ?? The Patient does not smoke cigarettes. Review of Systems Constitutional: Positive for chills, fatigue and fever. HENT: Positive for congestion, postnasal drip, rhinorrhea, sinus pressure and sinus pain. Respiratory: Positive for cough. Cardiovascular: Negative. Gastrointestinal: Positive for diarrhea. All other systems reviewed and are negative. OBJECTIVE: Physical Exam Constitutional: Appearance: Normal appearance. HENT: Right Ear: Tympanic membrane normal. Left Ear: Tympanic membrane normal. Nose: Congestion and rhinorrhea present. Mouth/Throat: Mouth: Mucous membranes are moist. Pharynx: Oropharynx is clear. Eyes: Conjunctiva/sclera: Conjunctivae normal. Pupils: Pupils are equal, round, and reactive to light. Cardiovascular: Rate and Rhythm: Normal rate and regular rhythm. Pulses: Normal pulses. Heart sounds: Normal heart sounds. Pulmonary: Effort: Pulmonary effort is normal. Breath sounds: Normal breath sounds. Neurological: Mental Status: He is alert. Assessment Diagnoses and all orders for this visit: Influenza - oseltamivir (TAMIFLU) 75 mg Oral Capsule; Take 1 Capsule by mouth 2 times daily for 5 days. Dispense: 10 Capsule; Refill: 0 Other orders - POCT JOSIE SARS ANTIGEN - POCT JOSIE INFLUENZA A/B documented in this encounter Plan of Treatment Upcoming Encounters Date Type Department Care Team (Late st Contact Info) Description 06/28/2024 9:40 AM EST Clinical Support [facility] [place] [address] [place] [address] 11/19/2024 1:40 PM EDT Office Visit SEP Neurology [facility] [address] [place] [address] Lyndsay Brewer DO [address] [facility] [address] [place] [address] documented as of this encounter [...] Diagnosis Comments POCT JOSIE SARS ANTIGEN Routine 09/01/2021 9:35 AM EST Influenza POCT JOSIE INFLUENZA A/B Routine 09/01/2021 9:32 AM EST Influenza documented in this encounter Results * POCT JOSIE SARS ANTIGEN (09/01/2021 9:35 AM EST) SARS Antigen Negative Negative SEP OFFICE Lot Number [id number] SEP OFFICE Expiration Date 03/07/23 SEP OFFICE SeriAl # SEP OFFICE Control Line Yes YES/NO SEP OFFICE 09/01/2021 9:35 AM EST [facility] DIRECT[facility] POINT OF CARE TEST ORDERAB LES Final Result [facility] * (ABNORMAL) POCT JOSIE INFLUENZA A/B (09/01/2021 9:32 AM EST) Influenza A Antigen Positive(A ) Negative 09/01/2021 9:35 AM EST [facility] Influenza B Antigen Positive(A ) Negative 09/01/2021 9:35 AM EST [facility] Swab SPECIMEN FROM NASOPHARYNGEAL STRUCTURE / Unknown 09/01/2021 9:32 AM EST 09/01/2021 9:35 AM EST us Steffanie Fulton COMMUNITY DIRECTOR POINT OF CARE TEST ORDERAB LES Final Result [facility] [place] [address] [place] [phone] documented in this encounter Visit Diagnoses Diagnosis Influenza- Primary Influenza with other respiratory manifestations documented in this encounter Additional Health Concerns Infection Onset Date Last Indicated Resolved Time INFLUENZA 09/01/2021 09/01/2021 09/16/2021 10:1 3 PM EDT documented as of this encounter Care Teams Side Show Entertainer Relationship Specialty Start Date End Date Steffanie Fulton APRN [address] [place] [id number] PCP - General Nurse Practitioner 07/26/21 documented as of this encounter
--- OUTSIDE RECORDS SUMMARY | 2024-05-29 15:40 | XMS_ITS | Encounter Summary ---
Author Organization [place] [address] Care Team Providers Care Ncqa Specialist Name Role Phone Kirstin Steffanie KENT Primary Care Provider [phone]- [phone] Reason for Visit * Reason Onset Date Comments Central Patient Navigator Outreach 10/01/2021 awv questionnaire Encounter Details Date Type Department Care Team ([facility] Contact Info) Description 10/01/2021 Patient Outreach [facility] [address] [place], [place] [phone] Steffanie Fulton APRN [address] [place] [address] Central Patient Navigator Outreach (awv questionnaire) Social History Tobacco Use Types Packs/Day Years [...] encounter Progress Notes * Lela Hanna - 10/01/2021 3:18 PM EDT Patient Outreach: Pre-Visit Questionnaires Attempt Count: 1st Care Gaps Addressed parole or probation officer: Medicare Questionnaire Outcome: Medicare Questionnaire completed documented in this encounter Plan of Treatment Upcoming Encounters Date Type Department Care Team (Late st Contact Info) Description 06/28/2024 9:40 AM EST Clinical Support [facility] [address] [phone] 11/19/2024 1:40 PM EDT Office Visit SEP Neurology [facility] [address] [place] [phone] Lyndsay Brewer, DO [address] [place] [address] documented as of this encounter [...] on filedocumented in this encounter Care Teams Ncqa Specialist Relationship Specialty Start Date End Date Steffanie Fulton APRN [address] [address] PCP - General Nurse Practitioner 07/26/21 documented as of this encounter
--- OUTSIDE RECORDS SUMMARY | 2024-05-29 15:41 | XMS_ITS | Encounter Summary ---
Author Organization [place] [address] Care Team Providers Care Lint Cleaner Name Role Phone Steffanie Fulton APRN Primary Care Provider [phone]- [phone] Encounter Details Date Type Department Care Team (Latest Contact Info) Description 08/02/2021 8:10 AM EST - 08/02/2021 11:59 PM [facility] Hospital Encounter [facility] [address] [id number] Annual physical exam; Screening for cholesterol level; Screening for thyroid disorder; Screening for deficiency anemia; Potassium serum increased Discharge Disposition: Home or Self Care Social [...] Discharge Nebulizer Accessories (ALL FLOW 4000 KIT) [facility] Formulary equivalent 1 Each 0 06/27/2012 ADVAIR DISKUS 500-50 mcg/dose Inhl Disk with DeviceIndications:E ncounter for medication refill INHALE 1 PUFF BY MOUTH TWICE A DAY 180 Each 1 02/08/2021 11/05/19 22 albuterol (PROVENTIL HFA;VENTOLIN HFA) 90 mcg/actuation Inhl HFA Aerosol InhalerIndications: Encounter for medication refill INHALE 1 TO 2 PUFFS EVERY 4 HOURS NEEDED FOR WHEEZING. 6.7 Each 1 04/29/2021 09/02/19 22 amLODIPine (NORVASC) 5 mg Oral TabletIndications:E ssential hypertension Take 1 Tablet by mouth daily. 30 Tablet 2 07/26/2021 10/29/19 22 betamethasone dipropionate (DIPROLENE) 0.05 % Top OintmentIndications :Psoriasis APPLY TO AFFECTED AREA EVERY DAY 15 g 2 07/23/2021 11/05/19 22 colestipoL (COLESTID) 1 gram Oral TabletIndications:I rritable bowel syndrome with diarrhea,Bile salt-induced diarrhea Take 1 Tablet by mouth 2 times daily. NEEDS AN APPOINTMENT 180 Tablet 06/28/2021 11/03/19 22 diclofenac (VOLTAREN) 1 % Top GelIndications:Bila teral foot pain,Localized osteoarthritis of hand, unspecified laterality Apply 2 g topically 4 times daily. 100 g 1 01/15/2021 08/12/19 22 hydroCHLOROthiazide (MICROZIDE) 12.5 mg Oral Capsule TAKE 1 CAPSULE BY MOUTH EVERY DAY 90 Capsule 06/30/2021 09/02/19 22 losartan (COZAAR) 50 mg Oral TabletIndications:E ssential hypertension TAKE 1 TABLET BY MOUTH TWICE A DAY 180 Tablet 1 06/02/2021 11/05/19 22 montelukast (SINGULAIR) 10 mg Oral TabletIndications:M oderate persistent asthma without complication TAKE 1 TABLET BY MOUTH EVERY DAY AT NIGHT 90 Tablet 06/28/2021 09/21/19 22 tadalafiL (CIALIS) 5 mg Oral TabletIndications:B PH without urinary obstruction Take 1 Tab by mouth as needed. for erectile dysfunction 90 Tab 2 01/07/2021 10/19/19 22 tamsulosin (FLOMAX) 0.4 mg Oral CapsuleIndications: BPH without urinary obstruction TAKE 2 CAPSULES BY MOUTH NIGHTLY 180 Capsule 1 05/03/2021 11/05/19 22 documented as of this encounter Discharge Disposition Disposition Code Departure Means Destination Home or Self Care documented in this encounter Plan of Treatment Upcoming Encounters Date Type Department Care Team (Late st Contact Info) Description 06/28/2024 9:40 AM EST Clinical Support [facility] [address] [place] [phone] 11/19/2024 1:40 PM EDT Office Visit [facility] [address] [place] [address] Lyndsay Brewer, DO [address] [place] [address] documented as of this encounter [...] Procedure Name Priority Date/Time Associated Diagnosis Comments CBC WITH DIFF Routine 08/02/2021 10:39 AM EST Annual physical exam Screening for deficiency anemia LIPID PANEL REFLEX Routine 08/02/2021 8: 26 AM EST Annual physical exam Screening for cholesterol level TSH REFLEX Routine 08/02/2021 8:26 AM EST Annual physical exam Screening for thyroid disorder COMPREHENSIVE METABOLIC PANEL Routine 08/02/2021 8:26 AM EST Potassium serum increased documented in this encounter Results * (ABNORMAL) CBC WITH DIFF (08/02/2021 10:39 AM EST) WBC 5.3 3.7 - 10.3 x10(3)/mcL 08/02/2021 3:57 PM EST [facility] RBC 4.45(L) 4.60 - 6.10 x10(6)/mcL 08/02/2021 3:57 PM EST [facility] Hgb 14.5 13.7 - 17.5 g/dL 08/02/2021 3:57 PM EST [facility] Hct 43.3 40.0 - 51.0 % 08/02/2021 3:57 PM EST [facility] MCV 97.3 80.0 - 100.0 fL 08/02/2021 3:57 PM EST [facility] MCH 32.6 26.0 - 34.0 pg 08/02/2021 3:57 PM EST [facility] MCHC 33.5 30.7 - 35.5 g/dL 08/02/2021 3:57 PM EST [facility] RDW 12.4 <=14.9 % 08/02/2021 3:57 PM EST [facility] Platelet 170 155 - 369 x10(3)/mcL 08/02/2021 3:57 PM EST [facility] MPV 11.1 8.8 - 12.5 fL 08/02/2021 3:57 PM EST [facility] Neut Percent 55.7 % 08/02/2021 3:57 PM EST [facility] Comment:Neutrophils equals s egs plus bands Imm Gran% 0.4 % 08/02/2021 3:57 PM EST [facility] Comment:Automated count of m etamyelocytes, myelocytes and promyelocytes. Lymph Percent 31.1 % 08/02/2021 3:57 PM EST [facility] Floyd Percent 9.4 % 08/02/2021 3:57 PM EST [facility] Eos Percent 2.6 % 08/02/2021 3:57 PM EST [facility] Baso Percent 0.8 % 08/02/2021 3:57 PM EST [facility] Neut # 3.0 1.6 - 6.1 x10(3)/mcL 08/02/2021 3:57 PM EST [facility] Comment:Neutrophils equals s egs plus bands IMMGRAN# 0.0 0.0 - 0.1 x10(3)/mcL 08/02/2021 3:57 PM EST [facility] Comment:Automated count of m etamyelocytes, myelocytes and promyelocytes. An absolute IG <0.1 is reported as 0.0. Lymph # 1.7 1.2 - 3.9 x10(3)/mcL 08/02/2021 3:57 PM EST [facility] Floyd # 0.5 0.3 - 0.9 x10(3)/mcL 08/02/2021 3:57 PM EST [facility] Eos# 0.1 0.0 - 0.5 x10(3)/mcL 08/02/2021 3:57 PM EST [facility] Baso # 0.0 0.0 - 0.1 x10(3)/mcL 08/02/2021 3:57 PM EST [facility] Blood VENOUS BLOOD / Unknown Venipuncture / Unknown 08/02/2021 10:39 AM EST 08/02/2021 10:39 AM EST us Michelle Garrido THINNER SPRAYER HEMATOLOGY ORDERABLES Final Result [facility] [address] , [place] [address] * (ABNORMAL) COMPREHENSIVE METABOLIC PANEL (08/02/2021 8:26 AM EST) Sodium 141 136 - 145 mmol/L 08/02/2021 4:54 PM EST [facility] Potassium 4.5 3.5 - 5.0 mmol/L 08/02/2021 4:54 PM EST [facility] Chloride 105 98 - 107 mmol/L 08/02/2021 4:54 PM EST [facility] Total CO2 26 22 - 29 mmol/L 08/02/2021 4:54 PM EST [facility] Anion Gap 10 7 - 16 mmol/L 08/02/2021 4:54 PM EST [facility] Calcium 10.1 8.6 - 10.4 mg/dL 08/02/2021 4:54 PM EST [facility] Glucose Lvl 108(H) 74 - 100 mg/dL 08/02/2021 4:54 PM EST [facility] BUN 24(H) 6 - 20 mg/dL 08/02/2021 4:54 PM EST [facility] Creatinine 1.07 0.67 - 1.30 mg/dL 08/02/2021 4:54 PM EST [facility] Albumin 4.7 3.5 - 5.2 gm/dL 08/02/2021 4:54 PM EST [facility] Total Protein 6.9 6.4 - 8.3 gm/dL 08/02/2021 4:54 PM EST [facility] Bili Total 0.3 0.1 - 1.4 mg/dL 08/02/2021 4:54 PM EST [facility] ALT 21 <=41 U/L 08/02/2021 4:54 PM EST [facility] AST 19 <=40 U/L 08/02/2021 4:54 PM EST [facility] Alk Phos 109 40 - 129 U/L 08/02/2021 4:54 PM EST [facility] eGFR (CKD-EPIcr 2020) 83 >=60 mL/min/1.7 3 m2 08/02/2021 4:54 PM EST [facility] Comment:Estimated GFR was ca lculated using the CKD-EPIcr (2020) equation refit without race. The equation is recommended by the National Kidney [employer] - [place] [employer] of Nephrology Task Force. Blood VENOUS BLOOD / Unknown Venipuncture / Unknown 08/02/2021 8:26 AM EST 08/02/2021 8:26 AM EST us Michelle Garrido THINNER SPRAYER CHEMISTRY ORDERABLES Final R esult [facility] [address] , [place] [address] [facility] [address] [place] [address] * TSH REFLEX (08/02/2021 8:26 AM EST) TSH Reflex 1.800 0.270 - 4.200 mcIU/mL 08/02/2021 4:54 PM EST [facility] Blood VENOUS BLOOD / Unknown Venipuncture / Unknown 08/02/2021 8:26 AM EST 08/02/2021 8:26 AM EST Narrative [facility] - 08/02/2021 4:54 PM EST Ingestion of john doses of biotin (>5 mg/day) taken within 8 hours of drawing blood sample can interfere with this immunoassay test. Michelle Garrido THINNER SPRAYER CHEMISTRY ORDERABLES Final R esult [facility] [address] , [place] [address] * (ABNORMAL) LIPID PANEL REFLEX (08/02/2021 8:26 AM EST) Cholesterol 194 <200 mg/dL 08/02/2021 4:54 PM EST [employer] [facility] Comment: < 200 ?Desirable 200 - 239 ? Borderline High >= 240 ?High Triglyceride 147 <150 mg/dL 08/02/2021 4:54 PM EST [employer] Comment: < 150 ? Normal 150 - 199 ?Borderline High 200 - 499 ?High ??>= 500 ? Very High HDL 37(L) >=40 mg/dL 08/02/2021 4:54 PM EST [employer] Comment: ??> 60 ?Optimal 40 - 60 ?Acceptable ?? < 40 ?Low LDL Calculated 130(H) <100 mg/dL 08/02/2021 4:54 PM EST [employer] Non-HDL-C Calculated 157(H) <=129 mg/dL 08/02/2021 4:54 PM EST [employer] [facility] Comment: <130 ?Desirable 130-159 Above Desirable 160-189 Borderline High 190-219 High >= 220 ??Very High Fasting Specimen? Yes None 022 4:54 PM EST [facility] Blood VENOUS BLOOD / Unknown Venipuncture / Unknown 08/02/2021 8:26 AM EST 08/02/2021 8:26 AM EST us Michelle Garrido THINNER SPRAYER CHEMISTRY ORDERABLES Final R esult [facility] [employer] [address] [place] [id number] [facility] [address] [place], [place] [id number] documented in this encounter Visit Diagnoses Diagnosis Annual physical exam Routine general medical examination at a health care facility Screening for cholesterol level Screening for lipoid disorders Screening for thyroid disorder Screening for deficiency anemia Screening for other and unspecified deficiency anemia Potassium serum increased Hyperpotassemia documented in this encounter Care Teams Lint Cleaner Relationship Specialty Start Date End Date Steffanie Fulton APRN [address] [place] [address] PCP - General Nurse Practitioner 07/26/21 documented as of this encounter
--- OUTSIDE RECORDS SUMMARY | 2024-05-29 15:41 | XMS_ITS | Encounter Summary ---
Author Organization [place] [address] Care Team Providers Care Mortar Carrier Name Role Phone Michelle Garrido APRN Primary Care Provider Unava ilable Reason for Visit * Reason Onset Date Comments Other 05/22/2021 missed call Encounter Details Date Type Department Care Team (Late st Contact Info) Description 05/22/2021 Telephone [facility] [address] [place] [address] Michelle Garrido APRN Other (missed call) Social History Tobacco Use Types Packs/Day Years [...] have Coronavirus / COVID-19? No / Unsure 05/21/2021 8:23 AM EST documented as of this encounter [...] encounter Miscellaneous Notes * Telephone Encounter - Glenis Harding MA - 05/22/2021 11:42 AM EST Patient advised * Telephone Encounter - Steffanie Love, Clerical Staff - 05/22/2021 11:36 AM EST Pt missed call to go over lab work, please advise, no answer at desk documented in this encounter Plan of Treatment Upcoming Encounters Date Type Department Care Team (Late st Contact Info) Description 06/28/2024 9:40 AM EST Clinical Support [facility] [address] [phone] 11/19/2024 1:40 PM EDT Office Visit [facility] Neurology [facility] [address] [place] [address] Lyndsay Brewer DO [address] [place] [address] documented as of this encounter [...] on filedocumented in this encounter Care Teams Mortar Carrier Relationship Specialty Start Date End Date Michelle Garrido APRN PCP - General Nurse Practitioner 05/03/21 05/27/21 documented as of this encounter
--- OUTSIDE RECORDS SUMMARY | 2024-05-29 15:41 | XMS_ITS | Encounter Summary ---
Author Organization [place] [address] Care Team Providers Care Fish Header Name Role Phone Unavailable Primary Care Provider Unavailabl e Reason for Visit * Reason Onset Date Comments ED Follow-Up Call 05/31/2021 Encounter Details Date Type Department Care Team (Late st Contact Info) Description 05/31/2021 Patient Outreach [facility] [address] [place] [phone] Milly Hurtado, CAREER DEVELOPMENT MANAGER Follow-Up Call Social History Tobacco Use [...] Progress Notes * Milly Hurtado RN - 05/31/2021 2:03 PM EST Patient has completed ED visit follow-up with provider. No call indicated. documented in this encounter Plan of Treatment Upcoming Encounters Date Type Department Care Team (Late st Contact Info) Description 06/28/2024 9:40 AM EST Clinical Support [facility] [address] [place] [phone] 11/19/2024 1:40 PM EDT Office Visit [facility] Neurology [facility] [address] [place] [address] yLndsay Brewer [address] [facility] [address] [place] [address] documented as of this encounter [...]
--- OUTSIDE RECORDS SUMMARY | 2024-05-29 15:41 | XMS_ITS | Encounter Summary ---
Author Organization [place] [address] Care Team Providers Care Manager Registration Name Role Phone Michelle Garrido APRN Primary Care Provider Willei aguila Encounter Details Date Type Department Care Team (Late st Contact Info) Description 06/28/2021 Orders Only [facility] [address] [place] [address] Katie Lutz RMA Social History Tobacco Use Types Packs/Day Years [...] End Date celecoxib (CELEBREX) 200 mg Oral Capsule Take 1 Capsule by mouth 2 times daily. 180 Capsule 3 06/28/2021 2 documented in this encounter Plan of Treatment Upcoming Encounters Date Type Department Care Team (Late st Contact Info) Description 06/28/2024 9:40 AM EST Clinical Support [facility] [address] [place] [address] [place] [phone] 11/19/2024 1:40 PM EDT Office Visit SEP Neurology [facility] [address] [place] [address] Lyndsay Brewer DO [address] [place] [address] documented as of this encounter Goals Goal [...] Da te celecoxib (CELEBREX) 200 mg Oral Capsule Take 1 Capsule by mouth 2 times daily. Reorder 06/09/2021 06/28/2021 documented as of this encounter Care Teams Manager Registration Relationship Specialty Start Date End Date Michelle Garrido APRN PCP - General Nurse Practitioner 06/28/21 07/25/21 documented as of this encounter
--- OUTSIDE RECORDS SUMMARY | 2024-05-29 15:41 | XMS_ITS | Encounter Summary ---
Author Organization [place] [address] Care Team Providers Care Pharmacology Associate Name Role Phone Unavailable Primary Care Provider Unavailabl e Reason for Visit * Reason Onset Date Comments Care Management - Chart Review 05/31/2021 Encounter Details Date Type Department Care Team (Late st Contact Info) Description 05/31/2021 Patient Outreach [facility] [address] [place] [address] Milly Hurtado, RN Care Management - Chart Review Social History Tobacco Use Types Packs/Day Years [...] AM EST Clinical Support [facility] [address] [employer] [address] [phone] 11/19/2024 1:40 PM EDT Office Visit [facility] Neurology [facility] [address] [place] [phone] Lyndsay Brewer DO [address] [place] [address] documented as of this encounter [...]
--- OUTSIDE RECORDS SUMMARY | 2024-05-29 15:41 | XMS_ITS | Encounter Summary ---
Author Organization [facility] Address [address] [place] [address] Care Team Providers Care Auditing Clerk Name Role Phone Steffanie Fulton APRN Primary Care Provider [phone] Reason for Visit * Reason Comments Pain Encounter Details Date Type Department Care Team (Late st Contact Info) Description 08/16/2021 9:45 AM EST Office Visit [address] [phone] Bishop Faustin MD [address] [place], [place] [id number] Right knee pain, unspecified chronicity (Primary Dx) Social History Tobacco Use Types [...] documented in this encounter Progress Notes * Bishop Faustin MD - 08/16/2021 9:45 AM EST Images from the original note were not included. [address] [phone] [place], [place] [phone] [place], [place] Zuhair Whitlock 1965 Chief Complaint Patient presents with ??? Right Knee - Pain Subjective: Zuhair Whitlock is a 55 y.o. male presenting for evaluation of right knee. 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 History of right knee ACL reconstruction and left tibial fracture with ORIF. He feels the right knee is becoming more severe. He describes a constant throbbing, and grindingpain with associated weakness, instability, and swelling. He denies numbness, or tingling. He feelshe is unable to trust the knee at this time. Was previously scheduled for right total knee but canceled by the patient. Patient is taking tylenol and celebrex for symptoms. Stopped taking celebrex due to elevated blood pressure. Last cortisone injection in April of 2021 with Michelle Garrido APRN. At this point, the patient describes having significant pain. The pain is more than just a nuisance; it is affecting the patient's quality of life. Going up and down stairs, standing for long periodsof time, and walking long distances are difficult. Rest, ice, anti-inflammatory medications and assisted devices have been tried. None of this has really solved the problem. Patient has a history opiate abuse. He would like to stay away from narcotics for pain. Feels surgery on the left hip has helped but is weak for him at times. Objective: Review of Systems Constitutional: Negative. Respiratory: Negative. Cardiovascular: Negative. Gastrointestinal: Negative. Musculoskeletal: Positive for joint pain. Skin: Negative. There is no height or weight on file to calculate BMI. On physical examination the patient is alert and oriented. Appropriate mood for the conversation. Well-developed and well-nourished in appearance. Limited gait examination reveals no obvious abnormalities. Bilateral upper and lower extremities demonstrate apparently normal range of motion and stability with intact pulses and sensation to light touch of the wrist, hand, ankle and foot bilaterally.Skin of bilateral upper and lower extremities with no obvious rash or lesions. Apparently normal muscle tone and reflexes for bilateral knees and ankles. No evidence of obvious significant lymphedemaof bilateral lower extremities. Respiratory rate is normal by clinical examination. Pulse rate is normal by peripheral pulse examination. Right Knee Exam Comments: Examination of the right knee shows that it is stable to varus and valgus stressing. Normal anterior/posterior drawer testing. Normal Kirk testing. Normal Kylah testing. There is tenderness to palpation over the medial joint line, as well as the patellofemoral joint. The skin is intact. Left Knee Exam Comments: Examination of the left knee shows that it is stable to varus and valgus stressing. Normal anterior/posterior drawer testing. Normal Kirk testing. Normal Kylah testing. There is tenderness to palpation over the medial joint line, as well as the patellofemoral joint. The skin is intact. Right Hip Exam Comments: Examination of the hip shows that there is a heel-toe reciprocating gait pattern without evidence of antalgia. Forced internal and external rotation of the hip in 90 degrees of flexion is supple and benign. Log-roll is normal. Stinchfield testing is normal. No tenderness to palpation overthe trochanteric bursa. FADIR testing is normal. MARIN testing is normal. The skin is intact. Normal lateral femoral cutaneous nerve sensation. Left Hip Exam Comments: The right hip surgical incision is healing nicely. No erythema or signs of infection. Gentle internal and external rotation of the hip is supple and benign. Leg lengths are grossly equivalent today. Heel-toe reciprocating gait pattern. No evidence of antalgia. Normal lateral femoral cutaneous nerve sensation. The skin is intact. No significant swelling noted. Imaging: No new x rays today. Assessment and Plan: Diagnoses and all orders for this visit: Right knee pain, unspecified chronicity - Large Joint Injection/Arthrocentesis: R knee PLAN: Discussed treatment options. Unfortunately the patient has been trying conservative treatments withminimal relief. I believe the patient would benefit from right TKA with the removal of hardware. Hewill continue with rest, ice, tylenol, and diclofenac gel as needed. He will plan to schedule a right total knee arthroplasty when ready. Patient will call to get back in for updated x- rays. I administered a right knee cortisone injection today. Patient verbalized understanding and agreement with the plan. DME Summary No orders found for display * Isauro Saenz, Clerical Staff - 08/16/2021 9:45 AM ESTAssociated Order(s): Large Joint Injection/Arthrocentesis: R knee Large Joint Injection/Arthrocentesis: R knee on 08/16/2021 9:45 AM Indications: pain Details: 22 G needle, superolateral approach Medications: 2 mL bupivacaine HCl 0.5 % (5 mg/mL); 40 mg triamcinolone acetonide 40 mg/mL Outcome: tolerated well, no immediate complications Procedure, treatment alternatives, risks and benefits explained, specific risks discussed. Consent was given by the patient. Patient was prepped and draped in the usual sterile fashion. documented in this encounter Miscellaneous Notes * Addendum Note - Bishop Faustin MD - 08/16/2021 9:45 AM ESTAddended by: BISHOP FAUSTIN on: 08/23/2021 06:10 PM Modules accepted: Level of Service documented in this encounter Plan of Treatment Upcoming Encounters Date Type Department Care Team (Late st Contact Info) Description 06/28/2024 9:40 AM EST Clinical Support [facility] [address] [place] [phone] 11/19/2024 1:40 PM EDT Office Visit [facility] Neurology [facility] [address] [place] [phone] Lyndsay Brewer DO [address] [place] [address] documented as of this encounter Goals Goal Patient Goal Type Associated Problems Recent Progress Patient-Stated? Author Blood Pressure < 140/90 Blood Pressure 134/84(12/04/ 2024 1:16 PM EST) No Yana Choi RMA Eat better, exercise, reach an ideal body weight General No Yana Choi RMA Stay Tobacco Free Lifestyle No Yana Choi RMA documented as of this encounter Procedures Procedure Name Priority Date/Time Associated Diagnosis Comments ND ARTHROCENTESIS ASPIR&/INJ MAJOR JT/BURSA W/O US Routine 08/16/2021 9:45 AM EST Right knee pain, unspecified chronicity documented in this encounter Results * ND ARTHROCENTESIS ASPIR&/INJ MAJOR JT/BURSA W/O US (08/16/2021 9:45 AM EST) Narrative [facility] - 08/16/2021 9:45 AM EST Isauro Saenz, Clerical Staff ? 08/23/2021 ??6:05 PM Large Joint Injection/Arthrocentesis: R knee on 08/16/2021 9:45 AM Indications: pain Details: 22 G needle, superolateral approach Medications: 2 mL bupivacaine HCl 0.5 % (5 mg/mL); 40 mg triamcinolone acetonide 40 mg/mL Outcome: tolerated well, no immediate complications Procedure, treatment alternatives, risks and benefits explained, specific risks discussed. Consent was given by the patient. Patient was prepped and draped in the usual sterile fashion. us Bishop Faustin MD PROCEDURE/MINOR SURG ICAL ORDERABLES Final Result Performing Organization Address City/State/[facility] Co de Phone Number [facility] [address] [phone] documented in this encounter Visit Diagnoses Diagnosis Right knee pain, unspecified chronicity- Primary documented in this encounter Administered Medications Inactive Administered Medications - up to 1 most recent administrations Medication Order MAR Action Action Date Dose Rate Site bupivacaine HCl (MARCAINE) 0.5 % (5 mg/mL) injection 2 mL 2 mL, Intra-articular, Starting on Mon08/16/21 at 0945, Until Mon04/29/24 at 1144, Dx: 1. Right knee pain, unspecified chronicityIndications:Right knee pain, unspecified chronicity Given 08/16/2021 9:45 AM EST 2 mL triamcinolone acetonide (KENALOG-40) injection 40 mg 40 mg, Intra-articular, Starting on Mon08/16/21 at 0945, Until Mon12/02/22 at 1141, Dx: 1. Right knee pain, unspecified chronicityIndications:Right knee pain, unspecified chronicity Given 08/16/2021 9:45 AM EST 40 mg documented in this encounter Care Teams Auditing Clerk Relationship Specialty Start Date End Date Steffanie Fulton APRN [address] [phone] PCP - General Nurse Practitioner 07/26/21 documented as of this encounter
--- OUTSIDE RECORDS SUMMARY | 2024-05-29 15:41 | XMS_ITS | Encounter Summary ---
Author Organization [place] [address] Care Team Providers Care Furnace Hand Name Role Phone Unavailable Primary Care Provider Unavailabl e Reason for Visit * Reason Comments Medication Refill Encounter Details Date Type Department Care Team (Late st Contact Info) Description 05/31/2021 Refill [facility] [address] [place] [address] Steffanie Fulton, DENTAL MOLD MAKER [address] [place] [place] [address] Medication Refill Social History Tobacco Use Types [...] TWICE A DAY 180 Tablet 1 06/02/2021 11/04/2021 documented in this encounter Miscellaneous Notes * Telephone Encounter - Chinyere Hicks CPhT - 06/02/2021 10:13 AM EST losartan- Medication refill request deferred to office staff. Hermilo Reason: Patient taking medication differently than prescribed documented in this encounter Plan of Treatment Upcoming Encounters Date Type Department Care Team (Late st Contact Info) Description 06/28/2024 9:40 AM EST Clinical Support [facility] [address] [place] [phone] 11/19/2024 1:40 PM EDT Office Visit [facility] Neurology [facility] [address] [place] [address] Lyndsay Brewer, [address] [place] [address] documented as of this encounter [...] TAKE 1 TABLET BY MOUTH EVERY DAY 04/26/2021 06/02/2021 documented as of this encounter
--- OUTSIDE RECORDS SUMMARY | 2024-05-29 15:41 | XMS_ITS | Encounter Summary ---
Author Organization [place] [address] Care Team Providers Care Bale Breaker Operator Name Role Phone Unavailable Primary Care Provider Unavailabl e Reason for Visit * Reason Comments Hypertension sent by PCP. having high blood pressure, states had MO in 30's, states pain in his left arm Encounter Details Date Type Department Care Team (Late st Contact Info) Description 05/28/2021 4:01 PM EST - 05/28/2021 8:34 PM EST [facility] [phone] Patric Nunez MD [address] [place] [phone] Atypical chest pain (Primary Dx); Acute pain of left shoulder Discharge Disposition: Home or Self Care Social [...] Sign Reading Time Taken Comments Blood Pressure 141/89 05/28/2021 8:30 PM EST Pulse 71 05/28/2021 8:30 PM EST Temperature 36.7 ??C (98 ??F) 05/28/2021 1:52 PM EST Respiratory Rate 15 05/28/2021 8:30 PM EST Oxygen Saturation 6% 05/28/2021 8:30 PM EST Inhaled Oxygen Concentration - - Weight - [...] this encounter Discharge Instructions * Discharge Instructions* Patric Nunez MD - 05/28/2021 8:06 PM EST Please follow-up with your PCP as needed or if symptoms worsen. Stay well hydrated. Return to the ER with any severe or concerning symptoms, including but not limited to: Chest pain, shortness of breath, unrelenting vomiting, or passing out. * Attachments The following attachments cannot be sent through Care Everywhere. * Chest Pain Discharge Instructions (Sol[place] Islander) documented in this encounter Medications at Time of Discharge Nebulizer Accessories (ALL FLOW 4000 KIT) [facility] Formulary equivalent 1 Each 0 3 ADVAIR DISKUS 500-50 mcg/dose Inhl Disk with DeviceIndications:Encoun ter for medication refill INHALE 1 PUFF BY MOUTH TWICE A DAY 180 Each 1 1 022 albuterol (PROVENTIL HFA;VENTOLIN HFA) 90 mcg/actuation Inhl HFA Aerosol InhalerIndications:Encou nter for medication refill INHALE 1 TO 2 PUFFS EVERY 4 HOURS NEEDED FOR WHEEZING. 6.7 Each 1 1 022 betamethasone dipropionate (DIPROLENE) 0.05 % Top OintmentIndications:Psor iasis APPLY TO AFFECTED AREA EVERY DAY 15 g 2 1 022 colestipoL (COLESTID) 1 gram Oral TabletIndications:Irrita ble bowel syndrome with diarrhea,Bile salt-induced diarrhea Take 2 Tabs by mouth 2 times daily. 120 Tab 11 1 022 diclofenac (VOLTAREN) 1 % Top GelIndications:Bilateral foot pain,Localized osteoarthritis of hand, unspecified laterality Apply 2 g topically 4 times daily. 100 g 1 1 022 hydroCHLOROthiazide (MICROZIDE) 12.5 mg Oral Capsule TAKE 1 CAPSULE BY MOUTH EVERY DAY 90 Capsule 1 022 losartan (COZAAR) 50 mg Oral TabletIndications:Essent ial hypertension TAKE 1 TABLET BY MOUTH EVERY DAY 90 Tablet 1 021 montelukast (SINGULAIR) 10 mg Oral TabletIndications:Modera te persistent asthma without complication TAKE 1 TABLET BY MOUTH EVERY DAY AT NIGHT 90 Tablet 1 022 pravastatin (PRAVACHOL) 20 mg Oral TabletIndications:Pure hypercholesterolemia TAKE 1 TABLET BY MOUTH EVERY DAY IN THE EVENING 30 Tablet 1 021 tadalafiL (CIALIS) 5 mg Oral TabletIndications:BPH without urinary obstruction Take 1 Tab by mouth as needed. for erectile dysfunction 90 Tab 2 1 022 tamsulosin (FLOMAX) 0.4 mg Oral CapsuleIndications:BPH without urinary obstruction TAKE 2 CAPSULES BY MOUTH NIGHTLY 180 Capsule 1 1 documented as of this encounter Discharge Disposition Disposition Code Departure Means Destination Home or Self Group Home documented in this encounter ED Notes * Patric Nunez MD - 05/28/2021 1:25 PM EST CC: Chief Complaint Patient presents with Hypertension sent by PCP. having high blood pressure, states had MO in 30's, states pain in his left arm HPI: Zuhair Whitlock is a 55 y.o. male with a past medical history significant for Arthritis, OpiateAbuse history, Anxiety, Vfib vs. Vtach in 30s, who presents to the emergency department for left arm pain and high blood pressure. Patient states that he developed left shoulder and arm twinges last night but concerned him for possible heart attack. These were associated with elevated blood pressure. He tried to come to the ER last night but the wait in the lobby was too long so he made an appoint with his PCP this morning, he saw his primary care physician this morning and she prompted him to come to the ER for troponin checks. Patient takes losartan and hydrochlorothiazide for his hypertension. 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 He denies any chest pain or chest pressure at this time. No shortness of breath PAST MEDICAL HISTORY: Past Medical History: Diagnosis Date Arthritis Asthma 06/02/2010 Bipolar affective (HCC) Blood transfusion EPHRAIM (generalized anxiety disorder) Heart attack (HCC) Heroin abuse (HCC) Quit August Hypertension IBS (irritable bowel syndrome) Opiate dependence ([facility]) Remission x 5 years Pneumonia Pneumothorax Past [...] REVISION-ANTERIOR ; Surgeon: Augie Ramires MD; Location: [facility]; Service: Orthopedics KNEE SURGERY LEFT ACL RECONSTRUCTION KNEE SURGERY LEFT ARTHROSCOPIES IRRAGATION X 7 FOR INFECTION KNEE SURGERY RIGHT ARTHROSCOPIC MENICUS REPAIR SHOULDER ARTHROSCOPY Right 11/29/2019 RIGHT SHOULDER ARTHROSCOPIC ROTATOR CUFF REPAIR DECOMPRESSION ACROMIOPLASTY, ACROMIOCLAVICULAR JOINT EXCISION; Surgeon: Kenny Loja MD; Location: [facility]; Service: Orthopedics TOTAL HIP ARTHROPLASTY Left 2009 ALLERGIES: Allergies Allergen Reactions Abilify [Aripiprazole] Other (See Comments) convulsions Unable To Assess Patient does not take any narcotic medications SOCIAL HISTORY: reports that he has never smoked. His smokeless tobacco use includes snuff. He reports that he doesnot drink alcohol and does not use drugs. TRAVEL HISTORY: No significant recent travel. FAMILY MEDICAL HISTORY: Family History Problem Relation Age of Onset Diabetes Mother Heart Disease Mother High Blood Pressure Mother High Cholesterol Mother Cancer Father 40 stomach Other (Diabetes living) Sister 1 sister passed No Known Problems Brother Diabetes Maternal Grandmother No Known Problems Maternal Grandfather Cancer Paternal Grandmother ROS: A complete 14-point review of systems was performed and is negative except as noted in HPI. VITALS: Vitals: 05/28/21 1352 05/28/21 1604 05/28/21 1815 05/28/21 2030 BP: 127/84 (!) 153/92 (!) 146/91 141/89 Pulse: 82 77 78 71 Resp: 16 20 18 15 Temp: 98 ??F (36.7 ??C) TempSrc: Oral SpO2: 93% 97% 95% (!) 6% PHYSICAL EXAM: GENERAL: Well developed, well nourished, no acute distress. HEENT: Normocephalic, atraumatic. PERRL. EOM Intact. NECK: No Tracheal Deviation. CHEST: Equal chest rise CARDIOVASCULAR: Regular Rate and Rhythm. No cyanosis or peripheral edema. RESPIRATORY: Normal respiratory effort. Clear to auscultation bilaterally GASTROINTESTINAL: Soft, nontender, nondistended. GENITOURINARY: Deferred. MUSCULOSKELETAL: Moving all four extremities. No gross deformities or lesions. SKIN: Warm. Dry. Well Perfused. No Jaundice. PSYCH: Mood and affect appropriate. AOx3 NEURO: GCS 15. Alert, awake, and oriented to person, place, and time. Grossly non-focal cranial nerves 2-12. LABS/IMAGING: Reviewed and interpreted XR CHEST AP PORTABLE Final Result No acute finding. Previously seen right-sided airspace disease has resolved. - Note: Radiology results need to be interpreted within a comprehensive clinical context. If you have questions about the radiology report, please contact the office of the ordering clinician. EK EKG [address] 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: : 1965 Requested By: [facility] Order Number: [id number] Reading MD: Elvin Kelly Measurements Intervals [place] Rate: 83 P: 50 MA: 150 QRS: 65 QRSD: 106 T: 63 QT: 353 QTc: 415 Interpretive Statements SINUS RHYTHM Electronically Signed On 05-28-2021 17:03:35 EST by Elvin Kelly Abnormal Labs Reviewed CBC - Abnormal; Notable for the following components: Result Value RBC 4.46 (*) All other components within normal limits BASIC METABOLIC PANEL - Abnormal; Notable for the following components: Sodium 135 (*) All other components within normal limits MEDICATIONS ADMINISTERED: Medications sodium chloride 0.9% syringe 5 mL (has no administration in time range) sodium chloride 0.9% IV line flush 50 mL (has no administration in time range) ibuprofen (ADVIL;MOTRIN) tablet 600 mg (600 mg Oral Not Given 05/28/21 1630) acetaminophen (TYLENOL) tablet 650 mg (650 mg Oral Given 05/28/21 1655) MEDICAL DECISION MAKING: Patient was seen and examined. In summary, this is a 55 y.o. male presenting to the ED for evaluation of elevated blood pressure associated with left arm and shoulder twinges concerning for possible atypical ACS. Basic labs obtained including troponin. EKG obtained. Chest x-ray obtained. Troponins unremarkable x2. Patient is hemodynamically stable and deemed appropriate for discharge. Appropriatefollow-up plan was discussed with patient. Strict return precautions given to patient. Nursing Documentation Reviewed. IMPRESSION: 1. Atypical chest pain 2. Acute pain of left shoulder Critical Care Time: n/a DISPOSITION: Discharge Condition at Discharge/Transfer from Department: Improved In cases where narcotics are prescribed, DENZEL report was obtained, reviewed, and made part of record. After examining available information, and risks of prescribing or dispensing controlled substances was explained to the patient (including non-treatment or other treatment), it is considered medically appropriate to administer narcotics as prescribed. Patric Nunez MD Emergency Medicine 05/28/21 This chart was completed using voice recognition technology and may contain unintended errors Patric Nunez MD 05/28/21 9795 documented in this encounter Plan of Treatment Upcoming Encounters Date Type Department Care Team (Late st Contact Info) Description 06/28/2024 9:40 AM EST Clinical Support [facility] [address] [place] [phone] 11/19/2024 1:40 PM EDT Office Visit [facility]P Neurology [facility] [address] [place] [phone] Lyndsay Brewer DO [address] [place] [address] documented as of this encounter Goals Goal Patient Goal Type Associated Problems Recent Progress Patient-Stated? Author Blood Pressure < 140/90 Blood Pressure 134/84(2023 1:16 PM EST) No Yana Choi RMA Eat better, exercise, reach an ideal body weight General No Yana Choi RMA Stay Tobacco Free Lifestyle No Yana Choi RMJane documented as of this encounter Procedures Procedure Name Priority Date/Time Associated Diagnosis Comments TROPONIN-T HIGH SENSITIVITY 2HR Timed 05/28/2021 7:31 PM EST TROPONIN-T HIGH SENSITIVITY BASELINE W/ REFLEX STAT 05/28/2021 4:34 PM EST CBC STAT 05/28/2021 4:34 PM EST BASIC METABOLIC PANEL STAT 05/28/2021 4:34 PM EST XR CHEST AP PORTABLE EULOGIO 05/28/2021 4:29 PM EST EK EKG 12 LEAD STAT 05/28/2021 1:27 PM EST documented in this encounter Results * TROPONIN-T HIGH SENSITIVITY 2HR (05/28/2021 7:31 PM EST) by-eVekfystf-H 2HR 14 <22 ng/L 05/28/2021 7:52 PM EST [facility] Comment:See the website belo w for rule out MO care pathway, conditions other than AMI that can cause elevated hs cTnT, and comparison of values from the 4th and 5th generation Rupesh tests. https://askmayoexpert.[facility].org/topic/clinical-answers/gnt-97783119/cpm-203 02703 hs-cTnT 2Hr Delta from Baseline 0 <4 ng/L 05/28/2021 7:52 PM EST [facility] Blood VENOUS BLOOD / Unknown Venipuncture / Unknown 05/28/2021 7:31 PM EST 05/28/2021 7:33 PM EST Narrative [facility] - 05/28/2021 7:52 PM EST Ingestion of john doses of biotin (>5 mg/day) taken within 8 hours of drawing blood sample can interfere with this immunoassay test. Patric Nunez MD CHEMISTRY ORDERABLES Final R esult Performing Organization Address [facility] de Phone Number [facility] [address] [place] [address] * TROPONIN-T HIGH SENSITIVITY BASELINE W/ REFLEX (05/28/2021 4:34 PM EST) na-aWtrqwbfd-D 14 <22 ng/L 05/28/2021 4:57 PM EST [facility] Comment:See the website aura henry for rule out MO care pathway, conditions other than AMI that can cause elevated hs cTnT, and comparison of values from the 4th and 5th generation Rupesh tests. https://askmayoexpert.[facility].org/topic/clinical-answers/gnt-79909985/cpm-[email or web address] 80941 Blood VENOUS BLOOD / Unknown Venipuncture / Unknown 05/28/2021 4:34 PM EST 05/28/2021 4:38 PM EST Narrative [facility] - 05/28/2021 4:57 PM EST Ingestion of john doses of biotin (>5 mg/day) taken within 8 hours of drawing blood sample can interfere with this immunoassay test. Patric Nunez MD CHEMISTRY ORDERABLES Final R esult Performing Organization Address [facility] Co de Phone Number [facility] [address] [place] [address] * (ABNORMAL) BASIC METABOLIC PANEL (05/28/2021 4:34 PM EST) Sodium 135(L) 136 - 145 mmol/L 05/28/2021 4:55 PM EST [facility] Potassium 4.4 3.5 - 5.0 mmol/L 05/28/2021 4:55 PM EST [facility] Chloride 101 98 - 107 mmol/L 05/28/2021 4:55 PM EST [facility] Total CO2 23 22 - 29 mmol/L 05/28/2021 4:55 PM EST [facility] Anion Gap 11 7 - 16 mmol/L 05/28/2021 4:55 PM EST [facility] Calcium 9.3 8.6 - 10.4 mg/dL 05/28/2021 4:55 PM EST [facility] Glucose Lvl 79 74 - 100 mg/dL 05/28/2021 4:55 PM EST [facility] BUN 20 6 - 20 mg/dL 05/28/2021 4:55 PM EST [facility] Creatinine 0.92 0.67 - 1.30 mg/dL 05/28/2021 4:55 PM [facility] eGFR (CKD-EPIcr 2020) 99 >=60 mL/min/1.7 3 m2 05/28/2021 4:55 PM EST [facility] Comment:Estimated GFR was ca lculated using the CKD-EPIcr (2020) equation refit without race. The equation is recommended by the National Kidney Foundation - [place] Society of Nephrology Task Force. Blood VENOUS BLOOD / Unknown Venipuncture / Unknown 05/28/2021 4:34 PM EST 05/28/2021 4:38 PM EST us Patric Nunez MD CHEMISTRY ORDERABLES Final R esult [facility] [address] [place] [address] * (ABNORMAL) CBC (05/28/2021 4:34 PM EST) WBC 7.3 3.7 - 10.3 x10(3)/mcL 05/28/2021 4:41 PM EST [facility] RBC 4.46(L) 4.60 - 6.10 x10(6)/mcL 05/28/2021 4:41 PM EST [facility] Hgb 14.5 13.7 - 17.5 g/dL 05/28/2021 4:41 PM EST [facility] Hct 42.8 40.0 - 51.0 % 05/28/2021 4:41 PM EST [facility] MCV 96.0 80.0 - 100.0 fL 05/28/2021 4:41 PM EST [facility] MCH 32.5 26.0 - 34.0 pg 05/28/2021 4:41 PM EST [facility] MCHC 33.9 30.7 - 35.5 g/dL 05/28/2021 4:41 PM EST [facility] RDW 12.7 <=14.9 % 05/28/2021 4:41 PM EST [facility] Platelet 159 155 - 369 x10(3)/mcL 05/28/2021 4:41 PM EST [facility] MPV 9.6 8.8 - 12.5 fL 05/28/2021 4:41 PM EST [facility] Blood VENOUS BLOOD / Unknown Venipuncture / Unknown 05/28/2021 4:34 PM EST 05/28/2021 4:38 PM EST Patric Nunez MD HEMATOLOGY ORDERABLES Final Result [facility] [address] [place] [address] * XR CHEST AP PORTABLE (05/28/2021 4:29 PM EST) Anatomical Region Laterality Modality Chest Radiographic Pauly ging 05/28/2021 4:29 PM EST Impressions 05/28/2021 5:09 PM EST No acute finding. Previously seen right-sided airspace disease has resolved. - Note: Radiology results need to be interpreted within a comprehensive clinical context. ??If you have questions about the radiology report, please contact the office of the ordering clinician. Narrative 05/28/2021 5:09 PM EST XR CHEST AP PORTABLE, ??05/28/2021 4:29 PM CLINICAL HISTORY: ??-HYPERTENSION COMPARISON: ??04/05/2021 PROCEDURE COMMENTS: AP portable technique. FINDINGS: Cardiovascular structures within normal limits. Previously seen right-sided airspace disease has resolved. No pneumonia or effusion. ??No pneumothorax. Procedure Note Garry Leos MD - 05/28/2021 XR CHEST AP PORTABLE, 05/28/2021 4:29 PM CLINICAL HISTORY: -HYPERTENSION COMPARISON: 04/05/2021 PROCEDURE COMMENTS: AP portable technique. FINDINGS: Cardiovascular structures within normal limits. Previouslyseen right-sided airspace disease has resolved. No pneumonia or effusion. No pneumothorax. IMPRESSION: No acute finding. Previously seen right-sided airspace disease has resolved. - Note: Radiology results need to be interpreted within a comprehensiveclinical context. If you have questions about the radiology report, please contactthe office of the ordering clinician. us Patric Nunez MD IMG DIAGNOSTIC IMAGING ORDER RAMESH Final Result * EK EKG 12 LEAD (05/28/2021 1:27 PM EST) Anatomical Region Laterality Modality Electrocardiogra phy 05/28/2021 1:29 PM EST Impressions 05/28/2021 5:03 PM EST ?[place] ? Test Date: ?2021-05-28 Pat Name: ? ZUHAIR WHITLOCK ?Department: ?? DEPID ? Room: ? Gender: ? Male ? 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 Requested By: [facility] Order Number: [id number] ?Reading : ?? Elvin Kelly ? Measurements Intervals ?[place] ? Rate: ? 83 ? P: ?50 MA: ? 150 ?QRS: ?65 QRSD: ? 106 ?T: ?63 QT: ? 353 ? QTc: ?415 ? 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 : 1965 Requested By: [facility] Order Number: [id number] Reading MD: Elvin Kelly Measurements Intervals [place] Rate: 83 P: 50 MA: 150 QRS: 65 QRSD: 106 T: 63 QT: 353 QTc: 415 Interpretive Statements SINUS RHYTHM Electronically Signed On 05-28-2021 17:03:35 EST by Elvin Kelly us Patric Nunez MD IMG ECG ORDERABLES Final Res ult documented in this encounter Visit Diagnoses Diagnosis Atypical chest pain- Primary Other chest pain Acute pain of left shoulder documented in this encounter Administered Medications Inactive Administered Medications - up to 1 most recent administrations Medication Order MAR Action Action Date Dose Rate Site acetaminophen (TYLENOL) tablet 650 mg 650 mg, Oral, ONCE, 1 dose, On Mon05/28/21 at 1630, Maximum adult dose of acetaminophen is 4000 mg from all sources in 24 hours. Given 05/28/2021 4:55 PM EST 650 mg sodium chloride 0.9% IV line flush 50 mL 50 mL, Intravenous, at 150-600 mL/hr, PRN, Starting on Mon05/28/21 at 1554, Until 05/29/21 at 0039, Line Care, Flush with a minimum of 20 mL after IVPB to insure complete administration of the dose. May use the saline infusion to back flush IVPB tubing as needed., Use this order to document priming and flushing IV line after medication administration. sodium chloride 0.9% syringe 5 mL 5 mL, Intravenous, PRN, Starting on Mon05/28/21 at 1554, Until 05/29/21 at 0039, Line Care, Flush with 5 mL saline pre/post IVP, and 5 mL prior to IVPB or blood product administration. Protocol for PERIPHERAL IV saline lock maintenance, flush with 3-5 mL saline syringe every 8 hours., Flush peripheral lines every 12 hours, central lines every 8 hours, and after IV medication documented in this encounter Active and Recently Administered Medications Times are shown in EST. Scheduled Medication Order 05/26/2021 05/27/2021 05/28/2021 acetaminophen (TYLENOL) tablet 650 mg (COMPLETED) 650 mg, Oral, ONCE, 1 dose, On Mon05/28/21 at 1630, Maximum adult dose of acetaminophen is 4000 mg from all sources in 24 hours. 1655 (Given - Provid er: Azalia Parker RN) ibuprofen (ADVIL;MOTRIN) tablet 600 mg 600 mg, Oral, ONCE, 1 dose, On Mon05/28/21 at 1630, If patient receiving scheduled ibuprofen (Caldolor) or ketorolac IV, hold oral ibuprofen until IV therapy completed. 1630 (Not Given - Pr ovider: Azalia Parker RN - Reason: Other - Comment: pt had celebrex this am) PRN Medication Order 05/26/2021 05/27/2021 05/28/2021 sodium chloride 0.9% IV line flush 50 mL 50 mL, Intravenous, at 150-600 mL/hr, PRN, Starting on Mon05/28/21 at 1554, Until 05/29/21 at 0039, Line Care, Flush with a minimum of 20 mL after IVPB to insure complete administration of the dose. May use the saline infusion to back flush IVPB tubing as needed., Use this order to document priming and flushing IV line after medication administration. sodium chloride 0.9% syringe 5 mL 5 mL, Intravenous, PRN, Starting on Mon05/28/21 at 1554, Until 05/29/21 at 0039, Line Care, Flush with 5 mL saline pre/post IVP, and 5 mL prior to IVPB or blood product administration. Protocol for PERIPHERAL IV saline lock maintenance, flush with 3-5 mL saline syringe every 8 hours., Flush peripheral lines every 12 hours, central lines every 8 hours, and after IV medication documented in this encounter Orders Medications Ordered That Tone ht Not Have Been Administered Count Last Ordered Date First Ordered Date ibuprofen (ADVIL;MOTRIN) tablet 600 mg 1 sodium chloride 0.9% IV line flush 50 mL 1 05/28/2021 sodium chloride 0.9% syringe 5 mL 1 021 documented in this encounter
--- OUTSIDE RECORDS SUMMARY | 2024-05-29 15:41 | XMS_ITS | Encounter Summary ---
Author Organization [place] [address] Care Team Providers Care Drapery And Upholstery Estimator Name Role Phone Steffanie Fulton APRN Primary Care Provider [phone] Reason for Visit * Reason Onset Date Comments Results 08/05/2021 Encounter Details Date Type Department Care Team (Late st Contact Info) Description 08/05/2021 Telephone [facility] [address] [place] [address] Steffanie Fulton APRN [address] [place] [address] Results Social History Tobacco Use Types Packs/Day [...] encounter Miscellaneous Notes * Telephone Encounter - Xin Schilling LPN - 08/05/2021 9:43 AM EST Patient Calling for Results Patient called for results on Lab cbc,cmp,tsh,lipid Which Provider ordered the test? Hema Date of test: 08/02/2021 Advised patient of: abnormal result. Patient Instructions/ Questions: Other: Please put in the result note that patient was notified of the following results Labs okay. ??Glucose is a little high. Reduce weight and increase exercise to improve. documented in this encounter Plan of Treatment Upcoming Encounters Date Type Department Care Team (Late st Contact Info) Description 06/28/2024 9:40 AM EST Clinical Support [facility] [address] [place] [phone] 11/19/2024 1:40 PM EDT Office Visit SEP Neurology [facility] [address] [place] [address] Lyndsay Brewer DO [address] [place] [address] documented as of this encounter [...] documented as of this encounter Care Teams Drapery And Upholstery Estimator Relationship Specialty Start Date End Date Steffanie Fulton APRN [address] [place] [phone] PCP - General Nurse Practitioner 07/26/21 documented as of this encounter
--- OUTSIDE RECORDS SUMMARY | 2024-05-29 15:41 | XMS_ITS | Encounter Summary ---
Author Organization [facility] [place] [address] Care Team Providers Care Occupational Therapy Director Name Role Phone Steffanie Fulton APRN Primary Care Provider +1- [phone] Encounter Details Date Type Department Care Team (Latest Contact Info) Description 07/26/2021 Travel Social History Tobacco Use Types Packs/Day [...] AM EST Clinical Support [facility] [address] [employer] [facility] [place] [phone] 11/19/2024 1:40 PM EDT Office Visit SEP Neurology [facility] [address] [place] [address] Lyndsay Brewer DO [address] [place] [address] documented as of [...] on filedocumented in this encounter Care Teams Occupational Therapy Director Relationship Specialty Start Date End Date Steffanie Fulton APRN [address] [place] [address] PCP - General Nurse Practitioner 07/26/21 documented as of this encounter
--- OUTSIDE RECORDS SUMMARY | 2024-05-29 15:41 | XMS_ITS | Encounter Summary ---
Author Organization [facility] [place] [address] Care Team Providers Care Sole Rougher Name Role Phone Steffanie Fulton APRN Primary Care Provider +1- [phone] Reason for Visit * Reason Comments Joint Pain thumbs, right one wo rse- swollen the past few days Encounter Details Date Type Department Care Team (Late Contact Info) Description 08/16/2021 2:15 PM EST Office Visit [facility] [place] [address] [place] [address] Marcela De Leon MD Bilateral thumb pain (Primary Dx); COPD, moderate (HCC) Social History [...] Sign Reading Time Taken Comments Blood Pressure 138/86 08/16/2021 2:17 PM EST Pulse 66 08/16/2021 2:17 PM EST Temperature 36.8 ??C (98.3 ??F) 08/16/2021 2:17 PM ES T Respiratory Rate 18 08/16/2021 2:17 PM EST Oxygen Saturation 98% 08/16/2021 2:17 PM EST Inhaled Oxygen Concentration - - Weight 98.1 kg (216 lb 3.2 oz) 08/16/2021 2:17 P M EST Height 170.2 cm (5' 7 ) 08/16/2021 2:17 PM EST Body Mass Index 33.86 08/16/2021 2:17 PM EST documented in this encounter Functional Status [...] EDJane Guzman MA documented in this encounter Ordered Prescriptions Prescription Sig Dispense Quantity Refills Last Filled Start Date End Date diclofenac (VOLTAREN) 1 % Top GelIndications:Hosea ateral thumb pain APPLY 2 GRAMS TOPICALLY 4 TIMES DAILY DIRECTED. 100 g 1 08/16/2021 4 documented in this encounter Progress Notes * Marcela De Leon MD - 08/16/2021 2:15 PM EST Vitals: 08/16/21 1417 BP: 138/86 BP Location: Left arm Patient Position: Sitting Pulse: 66 Resp: 18 Temp: 98.3 ??F (36.8 ??C) TempSrc: Temporal SpO2: 98% Weight: 216 lb 3.2 oz (98.1 kg) Height: 5' 7 (1.702 m) SUBJECTIVE: Chief Complaint Patient presents with ??? Joint Pain thumbs, right one worse- swollen the past few days HPI: Patient presents with joint pain, specifically in his thumbs that has been worsening over the past two weeks. He has been holding taking his celebrex due to elevated BP. Review of Systems Constitutional: Negative for chills and fever. HENT: Negative for sinus pressure and sore throat. Eyes: Negative for redness and visual disturbance. Respiratory: Negative for shortness of breath. Cardiovascular: Negative for chest pain. Gastrointestinal: Negative for abdominal pain. Endocrine: Negative for cold intolerance and heat intolerance. Genitourinary: Negative for difficulty urinating. Musculoskeletal: Positive for arthralgias and joint swelling. Skin: Negative for color change. Allergic/Immunologic: Negative for immunocompromised state. Neurological: Negative for dizziness. Hematological: Does not bruise/bleed easily. Psychiatric/Behavioral: Negative for confusion. The patient is not nervous/anxious. OBJECTIVE: Physical Exam Vitals reviewed. Musculoskeletal: General: Tenderness (base of R thumb) present. Assessment Diagnoses and all orders for this visit: Bilateral thumb pain - diclofenac (VOLTAREN) 1 % Top Gel; APPLY 2 GRAMS TOPICALLY 4 TIMES DAILY DIRECTED. Dispense: 100 g; Refill: 1 - RHEUMATOID FACTOR QUANTITATIVE; Future COPD, moderate (HCC) (Chronic) Comments: stable * Milly Dasilva - 08/16/2021 2:15 PM EST Right antecubital. 1 sst documented in this encounter Miscellaneous Notes * Patient Instructions - Hermila Donnelly MA - 08/16/2021 2:15 PM EST You may be contacted by mail or [...] AM EST Clinical Support [facility] [place] [address] [place] [address] 11/19/2024 1:40 PM EDT Office Visit [facility] Neurology [facility] [address] [place] [address] Lyndsay Brewer DO [address] [place] [address] documented as of this encounter Goals Goal Patient Goal Type Associated Problems Recent Progress Patient-Stated? Author Blood Pressure < 140/90 Blood Pressure 134/84(2023 1:16 PM EST) No Yana Choi, RMA Eat better, exercise, reach an ideal body weight General No Yana Choi G, RMA Stay Tobacco Free Lifestyle No Yana Choi, RMA documented as of this encounter Procedures Procedure Name Priority Date/Time Associated Diagnosis Comments RHEUMATOID FACTOR QUANTITATIVE Routine 08/16/2021 2:36 PM EST Bilateral thumb pain documented in this encounter Results * RHEUMATOID FACTOR QUANTITATIVE (08/16/2021 2:36 PM EST) RF Quant <10 <14 IU/mL 08/16/2021 7:4 4 PM EST [facility] Blood VENOUS BLOOD / Unknown Venipuncture / Unknown 08/16/2021 2:36 PM EST 08/16/2021 2:36 PM EST us Marcela De Leon MD IMMUNOLOGY ORDERABLES Final Result [facility] [address] [facility] , [address] [place] [id number] documented in this encounter Visit Diagnoses Diagnosis Bilateral thumb pain- Primary COPD, moderate (HCC) Chronic airway obstruction, not elsewhere classified documented in this encounter Discontinued Medications Medication Sig Discontinue Reason Start Date End Da te diclofenac (VOLTAREN) 1 % Top GelIndications:Bilateral foot pain,Localized osteoarthritis of hand, unspecified laterality APPLY 2 GRAMS TOPICALLY 4 TIMES DAILY DIRECTED. Reorder 08/12/2021 08/16/2021 documented as of this encounter Historical Medications * This list may reflect changes made after this encounter. Medication Sig Dispense Quantity Refills Last Filled Start D ate End Date celecoxib (CELEBREX) 200 mg Oral Capsule 06/28/202101/28 added in this encounter Care Teams Sole Rougher Relationship Specialty Start Date End Date Steffanie Fulton APRN [address] [place] [id number] PCP - General Nurse Practitioner 07/26/21 documented as of this encounter
--- OUTSIDE RECORDS SUMMARY | 2024-05-29 15:41 | XMS_ITS | Encounter Summary ---
Author Organization [place] [address] Care Team Providers Care Atmospheric Scientist Name Role Phone Unavailable Primary Care Provider Unavailabl e Reason for Visit * Reason Comments Establish Care Hypertension Arm Pain Encounter Details Date Type Department Care Team (Late st Contact Info) Description 05/28/2021 11:15 AM EST Office Visit [facility] [address] [place] [phone] Steffanie Fulton, WOOD TYPE FINISHER [address] [place] [address] Left arm pain (Primary Dx); Chest pain at rest; Essential hypertension Social History Tobacco Use Types [...] Sign Reading Time Taken Comments Blood Pressure 114/74 05/28/2021 11:13 AM EST Pulse 83 05/28/2021 11:05 AM EST Temperature 37 ??C (98.6 ??F) 05/28/2021 11:05 AM EST Respiratory Rate - - Oxygen Saturation 98% 05/28/2021 11:05 AM EST Inhaled Oxygen Concentration - - Weight 96.6 kg (213 lb) 05/28/2021 11:05 AM EST Height 170.2 cm (5' 7 ) 05/28/2021 11:05 AM EST Body Mass Index 33.36 05/28/2021 11:05 AM EST documented in this encounter Functional [...] Progress Notes * Steffanie Fulton APRN - 05/28/2021 11:15 AM EST Vitals: 05/28/21 1105 05/28/21 1113 BP: 132/72 114/74 BP Location: Right arm Right arm Patient Position: Sitting Sitting Pulse: 83 Temp: 98.6 ??F (37 ??C) TempSrc: Temporal SpO2: 98% Weight: 213 lb (96.6 kg) Height: 5' 7 (1.702 m) SUBJECTIVE: Chief Complaint Patient presents with ??? Establish Care ??? Hypertension ??? Arm Pain HPI: Pt here today with c/o elevated BP and intermittent left arm pain x 2 days. He states home [id number]. Went to the ER for eval last night but didn't want to weight. Continues to have symptoms today. EKG was normal in triage last night Denies sob He does have a hx of cervical radicular pain Review of Systems Constitutional: Negative for fatigue and fever. HENT: Negative for congestion and sore throat. Respiratory: Negative for shortness of breath. Cardiovascular: Negative for chest pain and palpitations. Gastrointestinal: Negative for diarrhea, nausea and vomiting. Musculoskeletal: Negative for myalgias. Left arm pain Neurological: Positive for headaches. Negative for dizziness. OBJECTIVE: Physical Exam Constitutional: Appearance: Normal appearance. Cardiovascular: Rate and Rhythm: Normal rate and regular rhythm. Pulses: Normal pulses. Heart sounds: Normal heart sounds. Pulmonary: Effort: Pulmonary effort is normal. Breath sounds: Normal breath sounds. Skin: General: Skin is warm and dry. Neurological: Mental Status: He is alert. Assessment Diagnoses and all orders for this visit: Left arm pain Chest pain at rest Essential hypertension Pt sent to ER for work up documented in this encounter Plan of Treatment Upcoming Encounters Date Type Department Care Team (Late st Contact Info) Description 06/28/2024 9:40 AM EST Clinical Support [facility] [place] [address] [employer] [place] [address] 11/19/2024 1:40 PM EDT Office Visit [facility] Neurology [facility] [address] [place] [address] Lyndsay Brewer, [address] [place] [address] documented as of this encounter Goals Goal Patient Goal Type Associated Problems Recent Progress Patient-Stated? Author Blood Pressure < 140/90 Blood Pressure 134/84(2023 1:16 PM EST) No Yana Choi RMA Eat better, exercise, reach an ideal body weight General No Yana Choi RMA Stay Tobacco Free Lifestyle No Yana Choi RMA documented as of this encounter Visit Diagnoses Diagnosis Left arm pain- Primary Pain in limb Chest pain at rest Chest pain, unspecified Essential hypertension Unspecified essential hypertension documented in this encounter
--- OUTSIDE RECORDS SUMMARY | 2024-05-29 15:41 | XMS_ITS | Encounter Summary ---
Author Organization [place] [address] Care Team Providers Care Mapping Pilot Name Role Phone Michelle Garrido APRN Primary Care Provider Unava ilable Reason for Visit * Reason Comments Medication Refill Encounter Details Date Type Department Care Team (Late st Contact Info) Description 07/23/2021 Refill [facility] [place] [address] [place] [address] Michelle Grarido APRN Medication Refill Social History Tobacco Use [...] Refills Last Filled Start Date End Date betamethasone dipropionate (DIPROLENE) 0.05 % Top OintmentIndication s:Psoriasis APPLY TO AFFECTED AREA EVERY DAY 15 g 2 07/23/2021 documented in this encounter Plan of Treatment Upcoming Encounters Date Type Department Care Team (Late st Contact Info) Description 06/28/2024 9:40 AM EST Clinical Support [facility] [address] [place] [address] 11/19/2024 1:40 PM EDT Office Visit SE[facility] Neurology [facility] [address] [place] [address] Lyndsay Brewer, DO [address] [place] [address] documented as of this encounter [...] Psoriasis Other psoriasis documented in this encounter Discontinued Medications Medication Sig Discontinue Reason Start Date End Da te betamethasone dipropionate (DIPROLENE) 0.05 % Top OintmentIndications:Psor iasis APPLY TO AFFECTED AREA EVERY DAY 12/14/2020 07/23/2021 documented as of this encounter Care Teams Mapping Pilot Relationship Specialty Start Date End Date Michelle Garrido APRN PCP - General Nurse Practitioner 06/28/21 07/25/21 documented as of this encounter
--- OUTSIDE RECORDS SUMMARY | 2024-05-29 15:41 | XMS_ITS | Encounter Summary ---
Author Organization [place] [address] Care Team Providers Care Business Taxes Specialist Name Role Phone KirstinSteffanie YOLI Primary Care Provider +1- [phone] Reason for Visit * Reason Comments Medication Refill Encounter Details Date Type Department Care Team (Late st Contact Info) Description 08/30/2021 Refill [facility] [place] [address] [place] [address] Michelle Garrido APRN Medication Refill [...] BY MOUTH EVERY DAY 90 Capsule 09/01/2021 albuterol (PROVENTIL HFA;VENTOLIN HFA) 90 mcg/actuation Inhl HFA Aerosol InhalerIndications :Encounter for medication refill INHALE 1 TO 2 PUFFS EVERY 4 HOURS NEEDED FOR WHEEZING. 6.7 Each 1 09/01/2021 2 documented in this encounter Miscellaneous Notes * Telephone Encounter - Maddy White RMA - 09/01/2021 11:06 AM EST Medication sent to the pharmacy under [place]. * Telephone Encounter - Lore Schuler CPhT - 09/01/2021 9:02 AM EST Images from the original note were not included. albuterol Medication Refill Protocol not available for this medication. Routed to office staff. hctz Medication refill request deferred to office staff. lawn sprinkler servicer Reason: Michelle Garrido no longer at this office documented in this encounter Plan of Treatment Upcoming Encounters Date Type Department Care Team (Late st Contact Info) Description 06/28/2024 9:40 AM EST Clinical Support [facility] [address] [place] [address] 11/19/2024 1:40 PM EDT Office Visit [facility] [place] [address] [place] [address] Lyndsay Brewer DO [address] [facility] [address] [place] [address] documented as of this [...] PUFFS EVERY 4 HOURS NEEDED FOR WHEEZING. 04/29/2021 09/01/2021 hydroCHLOROthiazide (MICROZIDE) 12.5 mg Oral Capsule TAKE 1 CAPSULE BY MOUTH EVERY DAY 06/30/2021 09/01/2021 documented as of this encounter Additional Health Concerns Infection Onset Date Last Indicated Resolved Time INFLUENZA 09/01/2021 09/01/2021 09/16/2021 10:1 3 PM EDT documented as of this encounter Care Teams Business Taxes Specialist Relationship Specialty Start Date End Date Steffanie Fulton APRN [address] [place] [address] PCP - General Nurse Practitioner 07/26/21 documented as of this encounter
--- OUTSIDE RECORDS SUMMARY | 2024-05-29 15:41 | XMS_ITS | Encounter Summary ---
Author Organization [place] [address] Care Team Providers Care Food And Beverage Attendant Name Role Phone Steffanie Fulton APRN Primary Care Provider +1- [phone] Reason for Visit * Reason Comments Hypertension Encounter Details Date Type Department Care Team (Late st Contact Info) Description 07/26/2021 8:45 AM EST [facility] [address] [place] [address] Marcela De Leon MD Essential hypertension Social History Tobacco Use Types [...] by mouth daily. 30 Tablet 2 07/26/2021 10/28/2021 documented in this encounter Progress Notes * Marcela De Leon MD - 07/26/2021 8:45 AM EST Patient presented today for routine care follow-up through a video visit. Patient has reviewed the terms and conditions of service as part of the registration for today's visit. A video visit does not replace a [id number] exam and further services may be necessary. We are conducting his video visit in a private space and this video visit is being conducted in accordance with state telehealth/video visit regulations. HPI: pt presents with increased BP at home-150's systolic. Taking losartan and HCTZ. Review of Systems Constitutional: Negative. Respiratory: Negative. Cardiovascular: Negative. Gastrointestinal: Negative. Exam: Constitutional: NAD, appropriately groomed. Appears comfortable. [...] orders for this visit: Essential hypertension Comments: adding amlodipine Orders: - amLODIPine (NORVASC) 5 mg Oral Tablet; Take 1 Tablet by mouth daily. Dispense: 30 Tablet; Refill:2 documented in this encounter Plan of Treatment Upcoming Encounters Date Type Department Care Team (Late st Contact Info) Description 06/28/2024 9:40 AM EST Clinical Support [facility] [place] [address] [place] [address] 11/19/2024 1:40 PM EDT Office Visit SEP Neurology [facility] [address] [place] [address] Lyndsay Brewer DO [address] [place] [address] documented as of this encounter [...] 1 Capsule by mouth 2 times daily. Cancelled by 06/28/2021 07/26/2021 meclizine (ANTIVERT) 25 mg Oral TabletIndications:Dizz iness,Benign paroxysmal positional vertigo, unspecified laterality Take 1 Tab by mouth every 6 hours. Cancelled by 08/05/2019 07/26/2021 methylPREDNISolone (MEDROL DOSPACK) 4 mg Oral Tablets, Dose PackIndications:Cough See package instructions Cancelled by 04/05/2021 07/26/2021 tizanidine HCl (TIZANIDINE ORAL) Take by mouth. Cancelled by 07/26/2021 documented as of this encounter Care Teams Food And Beverage Attendant Relationship Specialty Start Date End Date Steffanie Fulton APRN [address] [place] [address] PCP - General Nurse Practitioner 07/26/21 documented as of this encounter
--- OUTSIDE RECORDS SUMMARY | 2024-05-29 15:41 | XMS_ITS | Encounter Summary ---
Author Organization [facility] [place] [address] Care Team Providers Care Brush Operator Name Role Phone Michelle Garrido APRN Primary Care Provider Unava ilable Reason for Visit * Reason Comments Medication Refill Encounter Details Date Type Department Care Team (Late st Contact Info) Description 06/28/2021 Refill [facility] [address] [place] [address] Michael Mckeon MD [address] [place] [address] Medication Refill Social History Tobacco Use Types [...] NEEDS AN APPOINTMENT 180 Tablet 06/28/2021 2 documented in this encounter Plan of Treatment Upcoming Encounters Date Type Department Care Team (Late st Contact Info) Description 06/28/2024 9:40 AM EST Clinical Support [facility] [address] [place] [address] 11/19/2024 1:40 PM EDT Office Visit SE[facility] Neurology [facility] [address] [place] [address] Lyndsay Brewern, DO [address] [place] [address] documented as of this encounter [...] Da te colestipoL (COLESTID) 1 gram Oral TabletIndications:Irritab le bowel syndrome with diarrhea,Bile salt-induced diarrhea Take 2 Tabs by mouth 2 times daily. 12/09/2020 06/28/2021 documented as of this encounter Care Teams Brush Operator Relationship Specialty Start Date End Date Michelle Garrido APRN PCP - General Nurse Practitioner 06/28/21 07/25/21 documented as of this encounter
--- OUTSIDE RECORDS SUMMARY | 2024-05-29 15:41 | XMS_ITS | Encounter Summary ---
Author Organization [facility] [place] [address] Care Team Providers Care Bilingual Administrative Assistant Name Role Phone Michelle Garrido APRN Primary Care Provider Unava ilable Reason for Visit * Reason Comments Medication Refill Encounter Details Date Type Department Care Team (Late st Contact Info) Description 06/28/2021 Refill [facility] [place] [address] [place] [address] Michelle Garrido APRN Medication Refill [...] BY MOUTH EVERY DAY 90 Capsule 06/30/2021 2 documented in this encounter Miscellaneous Notes * Telephone Encounter - Lore Schuler CPhT - 06/30/2021 8:40 AM EST hydrochlorothiazide Medication Refill Protocol passed. [facility] Action: Approved refills to noted follow-up date by provider or protocol if no follow-up date noted. losartan Medication refill requested too soon. Refill request denied. Refills sent on 06/02/21 180+1r. Hermilo contacted pharmacy and verified that refills are on file. Patient notified via [employer] (if MyChart active). documented in this encounter Plan of Treatment Upcoming Encounters Date Type Department Care Team (Late st Contact Info) Description 06/28/2024 9:40 AM EST Clinical Support [facility] [address] [email or web address] [place] [address] 11/19/2024 1:40 PM EDT Office Visit SEP Neurology [facility] [address] [place] [address] Lyndsay Brewer, [address] [place] [address] documented as of this encounter [...] Da te hydroCHLOROthiazide (MICROZIDE) 12.5 mg Oral Capsule TAKE 1 CAPSULE BY MOUTH EVERY DAY 04/26/2021 06/30/2021 documented as of this encounter Care Teams Bilingual Administrative Assistant Relationship Specialty Start Date End Date Michelle Garrido APRN PCP - General Nurse Practitioner 06/28/21 07/25/21 documented as of this encounter
--- OUTSIDE RECORDS SUMMARY | 2024-05-29 15:41 | XMS_ITS | Encounter Summary ---
Author Organization [facility] [place] [address] Care Team Providers Care Regional Retail Sales Manager Name Role Phone Kirstin Steffanie YOLI Primary Care Provider +1- [phone] Reason for Visit * Reason Comments Medication Refill Encounter Details Date Type Department Care Team (Late st Contact Info) Description 08/12/2021 Refill [facility] [address] [place] [address] KirstinSteffanieYOLI [address] [facility] [place] [address] Medication Refill Social History Tobacco Use Types [...] End Date diclofenac (VOLTAREN) 1 % Top GelIndications:Bilat eral foot pain,Localized osteoarthritis of hand, unspecified laterality APPLY 2 GRAMS TOPICALLY 4 TIMES DAILY DIRECTED. 100 g 1 08/12/2021 documented in this encounter Plan of Treatment Upcoming Encounters Date Type Department Care Team (Late st Contact Info) Description 06/28/2024 9:40 AM EST Clinical Support [facility] [place] [facility] [address] [place] [address] 11/19/2024 1:40 PM EDT Office Visit SEP Neurology [facility] [address] [place] [address] Lyndsay Brewer, DO [address] [place] [address] documented as of this encounter Goals Goal Patient Goal Type Associated Problems Recent Progress Patient-Stated? Author Blood Pressure < 140/90 Blood Pressure 134/84(2023 1:16 PM EST) No Yana Choi RMA Eat better, exercise, reach an ideal body weight General No Yana Choi RMJane Stay Tobacco Free Lifestyle No Yana Choi RMA documented as of this encounter Visit Diagnoses Diagnosis Bilateral foot pain Pain in limb Localized osteoarthritis of hand, unspecified laterality documented in this encounter Discontinued Medications Medication Sig Discontinue Reason Start Date End Da te diclofenac (VOLTAREN) 1 % Top GelIndications:Bilateral foot pain,Localized osteoarthritis of hand, unspecified laterality Apply 2 g topically 4 times daily. 01/15/2021 08/12/2021 documented as of this encounter Care Teams Regional Retail Sales Manager Relationship Specialty Start Date End Date Steffanie Fulton APRN [address] [address] PCP - General Nurse Practitioner 07/26/21 documented as of this encounter
--- OUTSIDE RECORDS SUMMARY | 2024-05-29 15:41 | XMS_ITS | Encounter Summary ---
Author Organization [place] [address] Care Team Providers Care Cafeteria Team Leader Name Role Phone Michelle Garrido APRN Primary Care Provider Unava ilable Reason for Visit * Reason Comments Hypertension states BP was 160/10 0, took multiple times, states pain in his left arm since yesterday, denies PAL or vision change Encounter Details Date Type Department Care Team (Late Contact Info) Description 05/27/2021 10:05 PM EST - 05/27/2021 11:12 PM EST Emergency [facility] [place] [address] Discharge Disposition: Left Without Being Seen Social History Tobacco Use Types Packs/Day Years [...] Sign Reading Time Taken Comments Blood Pressure 157/91 05/27/2021 10:14 PM EST Pulse 79 05/27/2021 10:14 PM EST Temperature 36.7 ??C (98 ??F) 05/27/2021 10:14 PM EST Respiratory Rate 18 05/27/2021 10:14 PM EST Oxygen Saturation 96% 05/27/2021 10:14 PM EST Inhaled Oxygen Concentration - - Weight 91.2 kg (201 lb) 05/27/2021 10:14 PM EST Height 170.2 cm (5' 7 ) 05/27/2021 10:14 PM EST Body Mass Index 31.48 05/27/2021 10:14 PM EST documented in this encounter Functional [...] Discharge Nebulizer Accessories (ALL FLOW 4000 KIT) [facility] Formulary equivalent 1 Each 0 3 ADVAIR [...] BY MOUTH NIGHTLY 180 Capsule 1 1 022 documented as of this encounter Discharge Disposition Disposition Code Departure Means Destination Left Without Being Seen documented in this encounter Plan of Treatment Upcoming Encounters Date Type Department Care Team (Late st Contact Info) Description 06/28/2024 9:40 AM EST Clinical Support [facility] [place] [address] [place] [address] 11/19/2024 1:40 PM EDT Office Visit [facility] Neu[facility] [address] [place] [address] Lyndsay Brewer DO [address] [place] [address] documented as of this encounter [...] Procedure Name Priority Date/Time Associated Diagnosis Comments EK EKG 12 LEAD STAT 05/27/2021 10:08 PM EST documented in this encounter Results * EK EKG 12 LEAD (05/27/2021 10:08 PM EST) Anatomical Region Laterality Modality Electrocardiogra phy 05/27/2021 10:1 1 PM EST Impressions 05/28/2021 5:30 PM EST ?[facility] ? Test Date: ?2021-05-27 Pat Name: ? ZUHAIR WHITLOCK ?Department: ?? DEPID ? Room: ? Gender: ? Male ? Energy Economist: ?? MICHAEL : ?1965 ? Requested By: [facility] Order Number: [id number] ?Reading MD: ?? Elvin Kelly ? Measurements Intervals ?Royal ? Rate: ? 81 ? P: ?72 DC: ? 168 ?QRS: ?60 QRSD: ? 100 ?T: ?61 QT: ? 353 ? QTc: ?412 ? Interpretive Statements SINUS RHYTHM Electronically Signed On 05-28-2021 17:30:49 EST by Elvin Kelly Narrative Procedure Note Elvin Kelly MD - 05/28/[address] Test Date: 2021-05-27 Pat Name: ZUHAIR WHITLOCK Department: DEPID Room: Gender: Male Energy Economist: MICHAEL : 1965 Requested By: [facility] Order Number: [id number] Reading MD: Elvin Kelly Measurements Intervals Royal Rate: 81 P: 72 DC: 168 QRS: 60 QRSD: 100 T: 61 QT: 353 QTc: 412 Interpretive Statements SINUS RHYTHM Electronically Signed On 05-28-2021 17:30:49 EST by Elvin Kelly [facility] ECG ORDERABLES Final Result documented in this encounter Visit Diagnoses Not on filedocumented in this encounter Care Teams Cafeteria Team Leader Relationship Specialty Start Date End Date Michelle Garrido APRN PCP - General Nurse Practitioner 05/03/21 05/27/21 documented as of this encounter
--- OUTSIDE RECORDS SUMMARY | 2024-05-29 15:41 | XMS_ITS | Encounter Summary ---
Author Organization [facility] [place] [address] Care Team Providers Care Offset Printer Name Role Phone Steffanie Fulton APRN Primary Care Provider [phone]- [phone] Encounter Details Date Type Department Care Team (Latest Contact Info) Description 08/02/2021 Travel Social History Tobacco Use Types Packs/Day [...] EST Clinical Support [facility] [place] [address] [place] [phone] 11/19/2024 1:40 PM EDT Office Visit [facility] Neurology [facility] [address] [place] [phone] Lyndsay Brewer, DO [address] [place] [address] documented as of this encounter Goals Goal [...] on filedocumented in this encounter Care Teams Offset Printer Relationship Specialty Start Date End Date Steffanie Fulton APRN [address] [employer] [place], [place] [address] PCP - General Nurse Practitioner 07/26/21 documented as of this encounter
--- OUTSIDE RECORDS SUMMARY | 2024-05-29 15:41 | XMS_ITS | Encounter Summary ---
Author Organization [place] [address] Care Team Providers Care Hard Metals Engraver Hand Name Role Phone Michelle Garrido APRN Primary Care Provider Unava ilable Reason for Visit * Reason Comments Medication Refill Encounter Details Date Type Department Care Team (Late st Contact Info) Description 06/28/2021 Refill [facility] [address] [place] [phone] Steffanie Fulton APRN [address] [place] [address] Medication Refill Social History Tobacco Use Types [...] EVERY DAY AT NIGHT 90 Tablet 06/28/2021 09/20/2021 documented in this encounter Plan of Treatment Upcoming Encounters Date Type Department Care Team (Late st Contact Info) Description 06/28/2024 9:40 AM EST Clinical Support [facility] [address] [place] [phone] 11/19/2024 1:40 PM EDT Office Visit [facility] [address] [place] [address] Lyndsay Brewer, DO [address] [place] [address] documented as of this encounter [...] TABLET BY MOUTH EVERY DAY AT NIGHT 04/09/2021 06/28/2021 documented as of this encounter Care Teams Hard Metals Engraver Hand Relationship Specialty Start Date End Date Michelle Garrido APRN PCP - General Nurse Practitioner 06/28/21 07/25/21 documented as of this encounter
--- OUTSIDE RECORDS SUMMARY | 2024-05-29 15:41 | XMS_ITS | Encounter Summary ---
Author Organization [place] [address] Care Team Providers Care Rehabilitation Supervisor Name Role Phone Unavailable Primary Care Provider Unavailabl e Encounter Details Date Type Department Care Team (Late st Contact Info) Description 06/09/2021 Orders Only [facility] [facility] [address] [place] [phone] Steffanie Fulton, ASSISTANT TEACHER [address] [place] [address] Social History Tobacco Use Types Packs/Day Years [...] mouth 2 times daily. 180 Capsule 3 06/09/2021 2 documented in this encounter Plan of Treatment Upcoming Encounters Date Type Department Care Team (Late st Contact Info) Description 06/28/2024 9:40 AM EST Clinical Support [facility] [place] [facility] [address] [place] [phone] 11/19/2024 1:40 PM EDT Office Visit [facility] [address] [place] [address] Osman Lyndsay Polina, DO [address] [place] [address] documented as of this encounter [...] Discontinue Reason Start Date End Da te meloxicam (MOBIC) 15 mg Oral TabletIndications:Bilatera l foot pain,Localized osteoarthritis of hand, unspecified laterality TAKE 1 TABLET BY MOUTH EVERY DAY Cancelled by 04/06/2021 06/09/2021 documented as of this encounter
--- OUTSIDE RECORDS SUMMARY | 2024-05-29 15:41 | XMS_ITS | Encounter Summary ---
Author Organization [place] [address] Care Team Providers Care Principal Consultant Name Role Phone Unavailable Primary Care Provider Unavailabl e Reason for Visit * Reason Comments Medication Refill Encounter Details Date Type Department Care Team (Late st Contact Info) Description 06/13/2021 Refill [facility] [address] [place] [address] Steffanie Fulton, SOX ANALYST [address] [place] [address] Medication Refill Social History Tobacco Use Types [...] Refills Last Filled Start Date End Date pravastatin (PRAVACHOL) 20 mg Oral TabletIndications:Pure hypercholesterolemia TAKE 1 TABLET BY MOUTH EVERY DAY IN THE EVENING 30 Tablet 11/17/19 22 documented in this encounter Miscellaneous Notes * Telephone Encounter - Yessenia Kennedy CPhT - 06/14/2021 12:14 PM EST Pravastatin Medication Refill Protocol failed due to appointment. director of radiology Reason: Chart review does not show a coded diagnosis in protocol timeframe. director of radiology Action: Defer to office. Patient already received two carter 30-day supplies of medication. Routed to office staff for outreach to schedule appointment. documented in this encounter Plan of Treatment Upcoming Encounters Date Type Department Care Team (Late st Contact Info) Description 06/28/2024 9:40 AM EST Clinical Support [facility] [place] [address] [employer] [place] [phone] 11/19/2024 1:40 PM EDT Office Visit [facility] Neurology [facility] [address] [place] [address] Lyndsay Brewer DO [address] [place] [address] documented as of this encounter Goals Goal Patient Goal Type Associated Problems Recent Progress Patient-Stated? Author Blood Pressure < 140/90 Blood Pressure 134/84(2023 1:16 PM EST) No Yana Choi RMA Eat better, exercise, reach an ideal body weight General No Yana Choi RMA Stay Tobacco Free Lifestyle Yana Pina RMA documented as of this encounter Visit Diagnoses Diagnosis Pure hypercholesterolemia documented in this encounter Discontinued Medications Medication Sig Discontinue Reason Start Date End Da te pravastatin (PRAVACHOL) 20 mg Oral TabletIndications:Pure hypercholesterolemia TAKE 1 TABLET BY MOUTH EVERY DAY IN THE EVENING 05/19/2021 06/14/2021 documented as of this encounter
--- OUTSIDE RECORDS SUMMARY | 2024-05-29 15:42 | XMS_ITS | Encounter Summary ---
Author Organization [place] [address] Care Team Providers Care Tennis Desk Team Member Name Role Phone KirstinSteffanie YOLI Primary Care Provider [phone]- [phone] Reason for Visit * Reason Comments Medication Refill Encounter Details Date Type Department Care Team (Late st Contact Info) Description 04/09/2021 Refill [facility] [place] [address] [place] [address] Michelle Garrido APRN Medication Refill [...] or suspected to have Coronavirus / COVID-19? Yes 04/05/2021 1:31 PM EDT documented as of this encounter [...] MOUTH EVERY DAY AT NIGHT 90 Tablet 04/09/2021 tamsulosin (FLOMAX) 0.4 mg Oral CapsuleIndications :BPH without urinary obstruction TAKE 1 CAPSULE BY MOUTH EVERY NIGHT 90 Capsule 1 04/09/2021 documented in this encounter Plan of Treatment Upcoming Encounters Date Type Department Care Team (Late st Contact Info) Description 06/28/2024 9:40 AM EST Clinical Support [facility] [place] [facility] [address] [place] [phone] 11/19/2024 1:40 PM EDT Office Visit [facility]rology [facility] [address] [place] [address] Lyndsay Brewer, DO [address] [place] [address] documented as of this encounter [...] lower urinary tract symptoms (LUTS) Moderate persistent asthma without complication Unspecified asthma documented in this encounter Discontinued Medications Medication Sig Discontinue Reason Start Date End Da te tamsulosin (FLOMAX) 0.4 mg Oral CapsuleIndications:BPH without urinary obstruction Take 2 Caps by mouth nightly. 10/15/2020 04/09/2021 montelukast (SINGULAIR) 10 mg Oral TabletIndications:Moderat e persistent asthma without complication TAKE 1 TABLET BY MOUTH EVERY DAY AT NIGHT 01/04/2021 04/09/2021 documented as of this encounter Additional Health Concerns Infection Onset Date Last Indicated Resolved Time COVID-19 03/23/2021 03/23/2021 04/12/2021 10:1 2 PM EDT documented as of this encounter Care Teams Tennis Desk Team Member Relationship Specialty Start Date End Date Steffanie Fulton APRN [address] [place] [address] PCP - General Nurse Practitioner 01/15/21 05/02/21 documented as of this encounter
--- OUTSIDE RECORDS SUMMARY | 2024-05-29 15:42 | XMS_ITS | Encounter Summary ---
Author Organization [facility] [place] [address] Care Team Providers Care Registered Nurse Surgical Services Name Role Phone Michelle Garrido APRN Primary Care Provider Willie aguila Encounter Details Date Type Department Care Team (Late st Contact Info) Description 05/22/2021 Orders Only [facility] [address] [place] [address] Glensi Harding MA Potassium serum increased (Primary Dx) Social History Tobacco Use Types [...] EST Clinical Support [facility] [place] [address] [place] [phone] 11/19/2024 1:40 PM EDT Office Visit SE[facility] Neurology [facility] [address] [place] [address] Lyndsay Brewer DO [address] [place] [address] documented as of this encounter Goals Goal Patient Goal Type Associated Problems Recent Progress Patient-Stated? Author Blood Pressure < 140/90 Blood Pressure 134/84(2023 1:16 PM EST) No Yana Choi RMA Eat better, exercise, reach an ideal body weight General No Yana Choi RMA Stay Tobacco Free Lifestyle No Yana Choi RMA documented as of this encounter Results * (ABNORMAL) COMPREHENSIVE METABOLIC PANEL (08/02/2021 8:26 [...] - 1.30 mg/dL 08/02/2021 4:54 PM EST [facility] Albumin 4.7 3.5 - 5.2 gm/dL 08/02/2021 4:54 PM EST [facility] Total Protein 6.9 6.4 - 8.3 gm/dL 08/02/2021 4:54 PM EST [facility] Bili Total 0.3 0.1 - 1.4 mg/dL 08/02/2021 4:54 PM EST [facility] ALT 21 <=41 U/L 08/02/2021 4:54 PM EST [facility] AST 19 <=40 U/L 08/02/2021 4:54 PM EST [facility] Alk Phos 109 40 - 129 U/L 08/02/2021 4:54 PM EST [facility] eGFR (CKD-EPIcr 2020) 83 >=60 mL/min/1.7 3 m2 08/02/2021 4:54 PM EST [facility] Comment:Estimated GFR was ca lculated using the CKD-EPIcr (2020) equation refit without race. The equation is recommended by the National Kidney Foundation - [place] [employer] Nephrology Task Force. Blood VENOUS BLOOD / Unknown Venipuncture / Unknown 08/02/2021 8:26 AM EST 08/02/2021 8:26 AM EST Michelle Garrido APRN CHEMISTRY ORDERABLES Final R esult [facility] [address] [facility] [address] [place] [address] [facility] [address] [place] [id number] documented in this encounter Visit Diagnoses Diagnosis Potassium serum increased- Primary Hyperpotassemia documented in this encounter Care Teams Registered Nurse Surgical Services Relationship Specialty Start Date End Date Michelle Garrido APRN PCP - General Nurse Practitioner 05/03/21 05/27/21 documented as of this encounter
--- OUTSIDE RECORDS SUMMARY | 2024-05-29 15:42 | XMS_ITS | Encounter Summary ---
Author Organization [place] [address] Care Team Providers Care Cisco Unified Communications Engineer Name Role Phone Michelle Garrido APRN Primary Care Provider Unava ilable Reason for Visit * Reason Comments Medication Refill Encounter Details Date Type Department Care Team (Late st Contact Info) Description 05/03/2021 Refill [facility] [place] [address] [place] [address] Michelle Garrido APRN Medication Refill [...] have Coronavirus / COVID-19? No / Unsure 04/19/2021 11:52 AM EDT documented as of this encounter [...] NIGHTLY 180 Capsule 1 05/03/2021 2 documented in this encounter Plan of Treatment Upcoming Encounters Date Type Department Care Team (Late st Contact Info) Description 06/28/2024 9:40 AM EST Clinical Support [facility] [address] [place] [phone] 11/19/2024 1:40 PM EDT Office Visit [facility] Neurology [facility] [address] [place] [address] Osman Lyndsay Polina, DO [address] [place] [address] documented as of this encounter [...] TAKE 1 CAPSULE BY MOUTH EVERY NIGHT 04/09/2021 05/03/2021 documented as of this encounter Care Teams Cisco Unified Communications Engineer Relationship Specialty Start Date End Date Michelle Garrido APRN PCP - General Nurse Practitioner 05/03/21 05/27/21 documented as of this encounter
--- OUTSIDE RECORDS SUMMARY | 2024-05-29 15:42 | XMS_ITS | Encounter Summary ---
Author [place] [address] Care Team Providers Care Customer Sales Specialist Name Role Phone Michelle Garrido APRN Primary Care Provider Willie aguila Encounter Details Date Type Department Care Team (Latest Contact Info) Description 05/21/2021 8:24 AM EST - 05/21/2021 11:59 PM [facility] Hospital Encounter [facility] [address], [place] [id number] Paresthesia of both hands; Essential hypertension; EPHRAIM (generalized anxiety disorder) Discharge Disposition: Home or Self Care Social [...] Discharge Nebulizer Accessories (ALL FLOW 4000 KIT) [facility] Formulary equivalent 1 Each 0 3 ADVAIR [...] [facility] [address] [place] [phone] 11/19/2024 1:40 PM EDT Office Visit SEP Neurology [facility] [address] [facility] [place] [address] Lyndsay Brewer, DO [address] [place] [address] documented as [...] Procedure Name Priority Date/Time Associated Diagnosis Comments SYPHILIS SCREEN WITH REFLEX RPR QUANT Routine 05/21/2021 1:12 PM EST Paresthesia of both hands LIPID PANEL REFLEX Routine 05/21/2021 1: 12 PM EST Essential hypertension VITAMIN B12/ FOLIC ACID Routine 05/21/2021 1:12 PM EST Paresthesia of both hands TSH REFLEX Routine 05/21/2021 1:12 PM EST EPHRAIM (generalized anxiety disorder) VITAMIN D 25 HYDROXY Routine 05/21/2021 1:12 PM EST Paresthesia of both hands CBC WITH DIFF Routine 05/21/2021 1:12 PM EST Essential hypertension COMPREHENSIVE METABOLIC PANEL Routine 05/21/2021 1:12 PM EST Essential hypertension documented in this encounter Results * (ABNORMAL) LIPID PANEL REFLEX (05/21/2021 1:12 PM EST) Cholesterol 209(H) <200 mg/dL 05/21/2021 3:56 PM EST [facility] Comment: < 200 ?Desirable 200 - 239 ? Borderline High >= 240 ?High Triglyceride 98 <150 mg/dL 05/21/2021 3:56 PM EST [facility] Comment: < 150 ? Normal 150 - 199 ?Borderline High 200 - 499 ?High ??>= 500 ? Very High HDL 39(L) >=40 mg/dL 05/21/2021 3:56 PM EST [facility] Comment: ??> 60 ?Optimal 40 - 60 ?Acceptable ?? < 40 ?Low LDL Calculated 152(H) <100 mg/dL 05/21/2021 3:56 PM EST [facility] Non-HDL-C Calculated 170(H) <=129 mg/dL 05/21/2021 3:56 PM EST [facility] Comment: <130 ?Desirable 130-159 Above Desirable 160-189 Borderline High 190-219 High >= 220 ??Very High Fasting Specimen? Yes None 021 3:56 PM EST [facility] Blood VENOUS BLOOD / Unknown Venipuncture / Unknown 05/21/2021 1:12 PM EST 05/21/2021 1:12 PM EST us Steffanie Gastright FOUR SLIDE MACHINE OPERATOR CHEMISTRY ORDERABLES Final Result [facility] [address] [facility] , [place] [address] [facility] [address] [place] [address] * TSH REFLEX (05/21/2021 1:12 PM EST) Pathologist [facility] TSH Reflex 1.830 0.270 - 4.200 mcIU/mL 05/21/2021 3:56 PM EST [facility] Blood VENOUS BLOOD / Unknown Venipuncture / Unknown 05/21/2021 1:12 PM EST 05/21/2021 1:12 PM EST Narrative [facility] - 05/21/2021 3:56 PM EST Ingestion of john doses of biotin (>5 mg/day) taken within 8 hours of drawing blood sample can interfere with this immunoassay test. Steffanie Gastright FOUR SLIDE MACHINE OPERATOR CHEMISTRY ORDERABLES Final Result [facility] [address] [facility] , [place] [address] * (ABNORMAL) COMPREHENSIVE METABOLIC PANEL (05/21/2021 1:12 PM EST) Sodium 142 136 - 145 mmol/L 05/21/2021 3:56 PM EST [facility] Potassium 5.4(H) 3.5 - 5.0 mmol/L 05/21/2021 3:56 PM EST [facility] Chloride 104 98 - 107 mmol/L 05/21/2021 3:56 PM EST [facility] Total CO2 29 22 - 29 mmol/L 05/21/2021 3:56 PM EST [facility] Anion Gap 9 7 - 16 mmol/L 05/21/2021 3:56 PM EST [facility] Calcium 10.1 8.6 - 10.4 mg/dL 05/21/2021 3:56 PM EST [facility] Glucose Lvl 104(H) 74 - 100 mg/dL 05/21/2021 3:56 PM EST [facility] BUN 21(H) 6 - 20 mg/dL 05/21/2021 3:56 PM EST [facility] Creatinine 1.24 0.67 - 1.30 mg/dL 05/21/2021 3:56 PM EST [facility] Albumin 4.7 3.5 - 5.2 gm/dL 05/21/2021 3:56 PM EST [facility] Total Protein 7.0 6.4 - 8.3 gm/dL 05/21/2021 3:56 PM EST [facility] Bili Total 0.3 0.1 - 1.4 mg/dL 05/21/2021 3:56 PM EST [facility] ALT 21 <=41 U/L 05/21/2021 3:56 PM EST [facility] AST 17 <=40 U/L 05/21/2021 3:56 PM EST [facility] Alk Phos 112 40 - 129 U/L 05/21/2021 3:56 PM EST [facility] eGFR (CKD-EPIcr 2020) 70 >=60 mL/min/1.7 3 m2 05/21/2021 3:56 PM EST [facility] Comment:Estimated GFR was ca lculated using the CKD-EPIcr (2020) equation refit without race. The equation is recommended by the National Kidney [employer] - [place] [employer] of Nephrology Task Force. Blood VENOUS BLOOD / Unknown Venipuncture / Unknown 05/21/2021 1:12 PM EST 05/21/2021 1:12 PM EST us Steffanie Gastright FOUR SLIDE MACHINE OPERATOR CHEMISTRY ORDERABLES Final Result [facility] [address] [facility], [address] [place] [id number] [facility] [address] [place] [address] * CBC WITH DIFF (05/21/2021 1:12 PM EST) WBC 6.6 3.7 - 10.3 x10(3)/mcL 05/21/2021 3:35 PM EST [facility] RBC 4.83 4.60 - 6.10 x10(6)/mcL 05/21/2021 3:35 PM EST [facility] Hgb 15.3 13.7 - 17.5 g/dL 05/21/2021 3:35 PM EST [facility] Hct 46.5 40.0 - 51.0 % 05/21/2021 3:35 PM EST [facility] MCV 96.3 80.0 - 100.0 fL 05/21/2021 3:35 PM EST [facility] MCH 31.7 26.0 - 34.0 pg 05/21/2021 3:35 PM EST [facility] MCHC 32.9 30.7 - 35.5 g/dL 05/21/2021 3:35 PM EST [facility] RDW 12.8 <=14.9 % 05/21/2021 3:35 PM EST [facility] Platelet 183 155 - 369 x10(3)/mcL 05/21/2021 3:35 PM EST [facility] MPV 10.3 8.8 - 12.5 fL 05/21/2021 3:35 PM EST [facility] Neut Percent 61.1 % 05/21/2021 3:35 PM EST [facility] Comment:Neutrophils equals s egs plus bands Imm Gran% 0.5 % 05/21/2021 3:35 PM EST [facility] Comment:Automated count of m etamyelocytes, myelocytes and promyelocytes. Lymph Percent 29.7 % 05/21/2021 3:35 PM EST [facility] [place] Percent 6.7 % 05/21/2021 3:35 PM EST [facility] Eos Percent 1.5 % 05/21/2021 3:35 PM EST [facility] Baso Percent 0.5 % 05/21/2021 3:35 PM EST [facility] Neut # 4.1 1.6 - 6.1 x10(3)/mcL 05/21/2021 3:35 PM EST [facility] Comment:Neutrophils equals s egs plus bands IMMGRAN# 0.0 0.0 - 0.1 x10(3)/mcL 05/21/2021 3:35 PM EST [facility] Comment:Automated count of m etamyelocytes, myelocytes and promyelocytes. An absolute IG <0.1 is reported as 0.0. Lymph # 2.0 1.2 - 3.9 x10(3)/mcL 05/21/2021 3:35 PM EST [facility] [place] # 0.4 0.3 - 0.9 x10(3)/mcL 05/21/2021 3:35 PM EST [facility] Eos# 0.1 0.0 - 0.5 x10(3)/mcL 05/21/2021 3:35 PM EST [facility] [employer] [facility] [employer] Baso # 0.0 0.0 - 0.1 x10(3)/mcL 05/21/2021 3:35 PM EST [facility] Blood VENOUS BLOOD / Unknown Venipuncture / Unknown 05/21/2021 1:12 PM EST 05/21/2021 1:12 PM EST [facility] FOUR SLIDE MACHINE OPERATOR HEMATOLOGY ORDERABLES Karina l Result Performing Organization Address [facility] de Phone Number [facility] [employer] [facility] [address] [facility] , [place] [address] * SYPHILIS SCREEN WITH REFLEX RPR QUANT (05/21/2021 1:12 PM EST) Pathologist [facility] Trep Ab Index 0.10 <=0.99 Index Value 05/21/2021 4:09 PM EST [facility] [employer] [facility] Comment: < 1.00 - Non-Reactive ?? >=1.00 - Reactive NOTE: ??All reactive results will be reflexed to Quantitative Non-Treponemal(RPR)test. ?? Blood VENOUS BLOOD / Unknown Venipuncture / Unknown 05/21/2021 1:12 PM EST 05/21/2021 1:12 PM EST [facility] FOUR SLIDE MACHINE OPERATOR CHEMISTRY ORDERABLES Final Result Performing Organization Address [facility] de Phone Number [facility] [address] [facility] , [place] [address] * VITAMIN B12/ FOLIC ACID (05/21/2021 1:12 PM EST) Pathologist [facility] Vitamin B12 252 232-1,245 pg/mL 05/21/2021 4:03 PM EST [facility] [employer] [facility] Folate 10.10 >=4.50 ng/mL 05/21/2021 4:03 PM EST [facility] [employer] Blood VENOUS BLOOD / Unknown Venipuncture / Unknown 05/21/2021 1:12 PM EST 05/21/2021 1:12 PM EST Narrative [facility] - 05/21/2021 4:03 PM EST Ingestion of john doses of biotin (>5 mg/day) taken within 8 hours of drawing blood sample can interfere with this immunoassay test. [facility] CHEMISTRY ORDERABLES Final Result Performing Organization Address [facility] de Phone Number [facility] [employer] [address] , [place] [address] * VITAMIN D 25 HYDROXY (05/21/2021 1:12 PM EST) Pathologist [facility] Vit D 25 OH 31.4 30.0 - 150.0 ng/mL 05/21/2021 4:03 PM EST [facility] [employer] Comment: Preferred: >= 30 ng/mL Insufficient: 21-29 ng/mL Deficient <= 20 ??ng/mL Possible Toxicity: >150 ng/mL Samples should not be taken from patients receiving therapy with high biotin doses (i.e. > 5 mg/day) until at least 8 hours following the last biotin administration. Blood VENOUS BLOOD / Unknown Venipuncture / Unknown 05/21/2021 1:12 PM EST 05/21/2021 1:12 PM EST [facility] CHEMISTRY ORDERABLES Final Result Performing Organization Address [facility] de Phone Number [facility] [employer] [address] , [place] [address] documented in this encounter Visit Diagnoses Diagnosis Paresthesia of both hands Essential hypertension Unspecified essential hypertension EPHRAIM (generalized anxiety disorder) Generalized anxiety disorder documented in this encounter Care Teams Customer Sales Specialist Relationship Specialty Start Date End Date Michelle Garrido APRN PCP - General Nurse Practitioner 05/03/21 05/27/21 documented as of this encounter
--- OUTSIDE RECORDS SUMMARY | 2024-05-29 15:42 | XMS_ITS | Encounter Summary ---
Author Organization [place] [address] Care Team Providers Care Auto Transmission Technician Name Role Phone Steffanie Fulton APRN Primary Care Provider [phone] Encounter Details Date Type Department Care Team (Late st Contact Info) Description 03/24/2021 Orders Only [facility] [place] [address] Lucy Pedraza, PharmD COVID-19 Social History Tobacco Use Types Packs/Day Years [...] in this encounter Progress Notes * Lucy Pedraza, [facility] - 03/24/2021 6:45 AM EDT COVID Monoclonal Antibody Infusion Verification Zuhair Whitlock is a 55 y.o. year old male presenting to [facility] for treatment of coronavirus disease. Patient is scheduled to receive casirivimab 600 mg + imdevimab 600 mg once. Orders are pending physician signature. Patient weight: 97.5 kg In accordance with the FDA Emergency Use Authorization issuance the patient meets criteria for treatment including: Patient does not have new or increased oxygen requirement Patient is receiving the infusion in an outpatient setting Symptom onset within 10 days Date of onset as documented in the medical record: 03/21/2021 Positive SARS-CoV-2 test Date of test or chart documentation: 03/23/2021 [facility] recommends treatment within 3 days of a positive test High risk as defined as (should meet at least ONE of the following): BMI >= 25 Hypertension Chronic lung disease (ex. COPD, mild/moderate asthma, ILD, CF, pulmonary hypertension) Per CDC recommendations, COVID19 vaccination should be deferred for at least 90 days, as a precautionary measure until additional information becomes available, to avoid potential interference of theantibody therapy with vaccine-induced immune responses. If adverse events are reported, these will be documented in [facility] and filed through the [employer]. Thank you, Lucy Pedraza, PharmD, BCPS documented in this encounter Plan of Treatment Upcoming Encounters Date Type Department Care Team (Late st Contact Info) Description 06/28/2024 9:40 AM EST Clinical Support [facility] [address] [place] [address] 11/19/2024 1:40 PM EDT Office Visit SEP Neurology [facility] [address] [place] [address] Lyndsay Brewer DO [address] [address] documented as of this encounter Goals Goal Patient Goal Type Associated Problems Recent Progress Patient-Stated? Author Blood Pressure < 140/90 Blood Pressure 134/84(2023 1:16 PM EST) No Yana Choi RMA Eat better, exercise, reach an ideal body weight General No Yana Choi RMA Stay Tobacco Free Lifestyle No Yana Choi RMA documented as of this encounter Visit Diagnoses Diagnosis COVID-19 documented in this encounter Additional Health Concerns Infection Onset Date Last Indicated Resolved Time COVID-19 03/23/2021 03/23/2021 04/12/2021 10:1 2 PM EDT documented as of this encounter Care Teams Auto Transmission Technician Relationship Specialty Start Date End Date Steffanie Fulton APRN [address] [place] [id number] PCP - General Nurse Practitioner 01/15/21 05/02/21 documented as of this encounter
--- OUTSIDE RECORDS SUMMARY | 2024-05-29 15:42 | XMS_ITS | Encounter Summary ---
Author Organization [place] [address] Care Team Providers Care Campground Caretaker Name Role Phone Steffanie Fulton APRN Primary Care Provider +1- [phone] Reason for Visit * Reason Comments Covid Follow Up Encounter Details Date Type Department Care Team (Late st Contact Info) Description 04/05/2021 1:15 PM EDT Office Visit [facility] [address] [place] [phone] Kenroy Shea, DO [address] [place] [address] Cough (Primary Dx) Social History Tobacco Use Types [...] Sign Reading Time Taken Comments Blood Pressure 100/70 04/05/2021 1:00 PM EDT Pulse 76 04/05/2021 1:00 PM EDT Temperature 37.5 ??C (99.5 ??F) 04/05/2021 1:00 PM ED T Respiratory Rate - - Oxygen Saturation 99% 04/05/2021 1:00 PM EDT Inhaled Oxygen Concentration - - Weight - - Height 170.2 cm (5' 7 ) 04/05/2021 1:00 PM EDT Body Mass Index - - documented [...] Refills Last Filled Start Date End Date azithromycin (ZITHROMAX) 250 mg Oral Tablet Take 2 tablets (500 mg) on Day 1, followed by 1 tablet (250 mg) once daily on Days 2 through 5. 6 Tablet 04/05/2021 1 methylPREDNISolon e (MEDROL DOSPACK) 4 mg Oral Tablets, Dose PackIndications:C ough See package instructions 21 Tablet 04/05/2021 2 documented in this encounter Progress Notes * Kenroy Shea, - 04/05/2021 1:15 PM EDT Diagnoses and all orders for this visit: Cough - methylPREDNISolone (MEDROL DOSPACK) 4 mg Oral Tablets, Dose Pack; See package instructions Dispense: 21 Tablet; Refill: 0 - XR CHEST PA AND LATERAL; Future Likely post viral cough with mild asthma exacerbation. Will try steroid as above in the chest x-rayto rule out bacterial pneumonia. Outside of quarantine period. No follow-ups on file. Subjective Chief Complaint Patient presents with ??? Covid Follow Up HPI Patient tested positive for covid on 03/23/21. No change in body aches and joint pain. States cough is worse. Patient Active Problem List Diagnosis ??? Hip pain, left ??? Essential hypertension ??? Eczema ??? OA (osteoarthritis) ??? Asthma ??? EPHRAIM (generalized anxiety disorder) ??? BPH with urinary obstruction ??? Status post left hip replacement ??? Irritable bowel syndrome with diarrhea ??? paint dipper ??? Rectal bleeding ??? Diarrhea ??? Polyp of colon ??? COVID-19 Current Outpatient Medications on File Prior to Visit Medication Sig Dispense Refill ??? ADVAIR DISKUS 500-50 mcg/dose Inhl Disk with Device INHALE 1 PUFF BY MOUTH TWICE A DAY 180 Each1 ??? albuterol (PROVENTIL HFA;VENTOLIN HFA) 90 mcg/actuation Inhl HFA Aerosol Inhaler INHALE 1 TO 2 PUFFS EVERY 4 HOURS NEEDED FOR WHEEZING. 1 Each 1 ??? albuterol (PROVENTIL) 2.5 mg /3 mL (0.083 %) Inhl Solution for Nebulization Take 3 mL by nebulization every 4 hours as needed for Wheezing. 180 mL 1 ??? betamethasone dipropionate (DIPROLENE) 0.05 % Top Ointment APPLY TO AFFECTED AREA EVERY DAY 15 g 2 ??? colestipoL (COLESTID) 1 gram Oral Tablet Take 2 Tabs by mouth 2 times daily. 120 Tab 11 ??? diclofenac (VOLTAREN) 1 % Top Gel Apply 2 g topically 4 times daily. 100 g 1 ??? fluticasone propionate (FLONASE) 50 mcg/actuation Nasl Boone, Suspension 1 Boone by Nasal routedaily. 1 Bottle 2 ??? hydroCHLOROthiazide (MICROZIDE) 12.5 mg Oral Capsule TAKE 1 CAPSULE BY MOUTH EVERY DAY 30 Cap 5 ??? losartan (COZAAR) 50 mg Oral Tablet Take 1 Tablet by mouth 2 times daily. 60 Tablet 3 ??? meclizine (ANTIVERT) 25 mg Oral Tablet Take 1 Tab by mouth every 6 hours. 60 Tab 0 ??? meloxicam (MOBIC) 15 mg Oral Tablet Take 1 Tab by mouth daily. 30 Tab 2 ??? montelukast (SINGULAIR) 10 mg Oral Tablet TAKE 1 TABLET BY MOUTH EVERY DAY AT NIGHT 90 Tab 0 ??? Nebulizer Accessories (ALL FLOW 4000 KIT) [facility] equivalent 1 Each 0 ??? pravastatin (PRAVACHOL) 20 mg Oral Tablet Take 1 Tab by mouth every evening. 30 Tab 2 ??? tadalafiL (CIALIS) 5 mg Oral Tablet Take 1 Tab by mouth as needed. for erectile dysfunction 90 Tab 2 ??? tamsulosin (FLOMAX) 0.4 mg Oral Capsule Take 2 Caps by mouth nightly. 180 Cap 1 ??? tizanidine HCl (TIZANIDINE ORAL) Take by mouth. No current facility-administered medications on file prior to visit. Social History Socioeconomic History ??? Marital status: [...] of Health Financial Resource Strain: Low Risk ??? Difficulty of Paying Living Expenses: Not hard at all Food Insecurity: No Food Insecurity ??? Worried About Running Out of Food in the Last Year: Never true ??? Ran Out of Food in the Last Year: Never true Transportation Needs: No Transportation Needs ??? Lack of Transportation (Medical): No ??? Lack of Transportation (Non-Medical): No Family History Problem Relation Age of Onset [...] 03/18/2019 ??? Influenza Virus Vaccine Quadrivalant, Flublok 04/13/2020 ??? PPD Test 12/20/2010 ??? Pneumococcal Polysaccharide 23 Valent 04/21/2010, 03/10/2016 ??? Tdap 12/26/2018 ??? Zoster Recombinant 11/28/2017, 06/21/2018 Health Maintenance Due Topic Date Due ??? COVID-19 Vaccine (1) Never done ??? Influenza Vaccine (1) 02/24/2021 Patient Care Team: Steffanie Fulton APRN as PCP - General (Nurse Practitioner) Review of Systems See HPI as above for pertinent positives. Other systems reviewed as negative. Objective BP 100/70 Pulse 76 Temp 99.5 ??F (37.5 ??C) (Temporal) Ht 5' 7 (1.702 m) SpO2 99% BMI 33.02 kg/m?? Physical Exam Constitutional: She is oriented to person, place, and time. She appears well- developed and well-nourished. Head: Normocephalic and atraumatic. Eyes: Pupils are equal, round, and reactive to light. Neck: Normal range of motion. Cardiovascular: Normal rate and regular rhythm. Pulmonary/Chest: Effort normal and breath sounds normal. Abdominal: Soft. There is no tenderness. Neurological: She is alert and oriented to person, place, and time. Psychiatric: She has a normal mood and affect. Nursing note and vitals reviewed. Lab Results Component Value Date WBC 4.8 01/20/2021 HGB 14.2 01/20/2021 HCT 44.2 01/20/2021 PLT 160 01/20/2021 CHOLESTEROL 195 01/20/2021 TRIG 112 01/20/2021 HDL 38 (L) 01/20/2021 LDLCALC 135 (H) 01/20/2021 ALT 28 01/20/2021 AST 36 01/20/2021 NA 141 01/20/2021 K 4.2 01/20/2021 CL 105 01/20/2021 CREATININE 0.97 01/20/2021 BUN 22 (H) 01/20/2021 CO2 23 01/20/2021 TSH 2.140 10/14/2015 INR 0.91 07/17/2017 GLU 106 (H) 01/20/2021 TSHREFLEX 1.730 01/20/2021 [facility] Documentation [facility] Flowsheet was completed/reviewed as part of [...] random urine drug screen will be performed. A review of potential barriers to completing the above treatment plan identifies: no significant Risk and benefit of treatment has been discussed and agreed upon. Informed of importance of plannedfollow up forr health and safety. Concerns have been discussed and considered in the planned management. Risk/benefit of treatment discussed ??? Importance of follow-up stressRisk of noncompliance review Kenroy Shea DO documented in this encounter Miscellaneous Notes * Addendum Note - Kenroy Shea DO - 04/05/2021 1:15 PM EDTAddended by: KENROY SHEA on: 04/05/2021 01:58 PM Modules accepted: Orders documented in this encounter Plan of Treatment Upcoming Encounters Date Type Department Care Team (Late st Contact Info) Description 06/28/2024 9:40 AM EST Clinical Support [facility] [address] [place] [address] 11/19/2024 1:40 PM EDT Office Visit [facility] [address] [place] [phone] Lyndsay Brewer DO [address] [place] [address] documented as of this encounter Goals Goal Patient Goal Type Associated Problems Recent Progress Patient-Stated? Author Blood Pressure < 140/90 Blood Pressure 134/84(2023 1:16 PM EST) No Yana Choi RMA Eat better, exercise, reach an ideal body weight General No Yana Choi RMA Stay Tobacco Free Lifestyle Yana Pina RMA documented as of this encounter Results * XR CHEST PA AND LATERAL (04/05/2021 1:45 PM EDT) Anatomical Region Laterality Modality Chest Radiographic Pauly ging 04/05/2021 1:45 PM EDT Impressions 04/05/2021 1:54 PM EDT Faint airspace disease right middle and right upper lobe worrisome for multifocal pneumonia. - Note: Radiology results need to be interpreted within a comprehensive clinical context. ??If you have questions about the radiology report, please contact the office of the ordering clinician. Narrative 04/05/2021 1:54 PM EDT PA AND LATERAL CHEST X-RAY, ??04/05/2021 1:45 PM CLINICAL HISTORY: ??R05.9-Cough, [id number] COMPARISON: ??03/13/18 PROCEDURE COMMENTS: Frontal and lateral views of the chest. FINDINGS: Faint right middle lobe airspace disease anteriorly. Minimal airspace disease right upper lobe. Pneumonia versus atelectasis. No effusion. Left lung is clear. Procedure Note Garry Leos MD - 04/05/2021 PA AND LATERAL CHEST X-RAY, 04/05/2021 1:45 PM CLINICAL HISTORY: R05.9-Cough, [id number] COMPARISON: 03/13/18 PROCEDURE COMMENTS: Frontal and lateral views of the chest. FINDINGS: Faint right middle lobe airspace disease anteriorly. Minimalairspace disease right upper lobe. Pneumonia versus atelectasis. No effusion. Leftlung is clear. IMPRESSION: Faint airspace disease right middle and right upper lobe worrisome for multifocal pneumonia. - Note: Radiology results need to be interpreted within a comprehensiveclinical context. If you have questions about the radiology report, please contactthe office of the ordering clinician. us Kenroy [facility] ORDERAB LES Final Result documented in this encounter Visit Diagnoses Diagnosis Cough- Primary Cough documented in this encounter Additional Health Concerns Infection Onset Date Last Indicated Resolved Time COVID-19 03/23/2021 03/23/2021 04/12/2021 10:1 2 PM EDT documented as of this encounter Care Teams Campground Caretaker Relationship Specialty Start Date End Date Steffanie Fulton APRN [address] [place] [address] PCP - General Nurse Practitioner 01/15/21 05/02/21 documented as of this encounter
--- OUTSIDE RECORDS SUMMARY | 2024-05-29 15:42 | XMS_ITS | Encounter Summary ---
Author Organization [facility] [place] [address] Care Team Providers Care Middle School Art Teacher Name Role Phone Steffanie Fulton APRN Primary Care Provider [phone]- [phone] Encounter Details Date Type Department Care Team (Late st Contact Info) Description 04/05/2021 1:34 PM EDT - 04/05/2021 11:59 PM EDT Hospital Encounter [facility] [address] [place] [address] Shaheed Riley, DO [address] [place] [address] Cough Discharge Disposition: Home or Self Care Social [...] Discharge Nebulizer Accessories (ALL FLOW 4000 KIT) [facility] Formulary equivalent 1 Each 0 3 ADVAIR DISKUS 500-50 mcg/dose Inhl Disk with DeviceIndications:Encoun ter for medication refill INHALE 1 PUFF BY MOUTH TWICE A DAY 180 Each 1 1 022 albuterol (PROVENTIL HFA;VENTOLIN HFA) 90 mcg/actuation Inhl HFA Aerosol InhalerIndications:Encou nter for medication refill INHALE 1 TO 2 PUFFS EVERY 4 HOURS NEEDED FOR WHEEZING. 1 Each 1 1 021 azithromycin (ZITHROMAX) 250 mg Oral Tablet Take 2 tablets (500 mg) on Day 1, followed by 1 tablet (250 mg) once daily on Days 2 through 5. 6 Tablet 1 021 betamethasone dipropionate (DIPROLENE) 0.05 % Top OintmentIndications:Psor [...] BY MOUTH EVERY DAY 30 Cap 5 1 021 losartan (COZAAR) 50 mg Oral TabletIndications:Essent ial hypertension Take 1 Tablet by mouth 2 times daily. 60 Tablet 3 1 021 meloxicam (MOBIC) 15 mg Oral TabletIndications:Bilate ral foot pain,Localized osteoarthritis of hand, unspecified laterality Take 1 Tab by mouth daily. 30 Tab 2 1 021 montelukast (SINGULAIR) 10 mg Oral TabletIndications:Modera te persistent asthma without complication TAKE 1 TABLET BY MOUTH EVERY DAY AT NIGHT 90 Tab 1 021 pravastatin (PRAVACHOL) 20 mg Oral TabletIndications:Pure hypercholesterolemia Take 1 Tab by mouth every evening. 30 Tab 2 1 021 tadalafiL (CIALIS) 5 mg Oral TabletIndications:BPH without urinary obstruction Take 1 Tab by mouth as needed. for erectile dysfunction 90 Tab 2 1 022 tamsulosin (FLOMAX) 0.4 mg Oral CapsuleIndications:BPH without urinary obstruction Take 2 Caps by mouth nightly. 180 Cap 1 1 021 documented as of this encounter Discharge Disposition Disposition Code Departure Means Destination Home or Self Care documented in this encounter Plan of Treatment Upcoming Encounters Date Type Department Care Team (Late st Contact Info) Description 06/28/2024 9:40 AM EST Clinical Support [facility] [address] [place] [address] 11/19/2024 1:40 PM EDT Office Visit [facility] [address] [place] [address] Lyndsay Brewer DO [address] [place] [address] documented as of this encounter [...] Comments XR CHEST PA AND LATERAL Routine 04/05/2021 1:45 PM EDT Cough documented in this encounter Results * XR [...] X-RAY, ??04/05/2021 1:45 PM CLINICAL HISTORY: ??R05.9-Cough, [id number] COMPARISON: ??03/13/18 PROCEDURE COMMENTS: Frontal and lateral views of the chest. FINDINGS: Faint right middle lobe airspace disease anteriorly. Minimal airspace disease right upper lobe. Pneumonia versus atelectasis. No effusion. Left lung is clear. Procedure Note Garry Leos MD - 04/05/2021 PA AND LATERAL CHEST X-RAY, 04/05/2021 1:45 PM CLINICAL HISTORY: R05.9-Cough, [id number] COMPARISON: 03/13/18 PROCEDURE COMMENTS: Frontal and lateral [...] please contactthe office of the ordering clinician. Shaheed [facility] ORDERAB LES Final Result documented in this encounter Visit Diagnoses Diagnosis Cough documented in this encounter Additional Health Concerns Infection Onset Date Last Indicated Resolved Time COVID-19 03/23/2021 03/23/2021 04/12/2021 10:1 2 PM EDT documented as of this encounter Care Teams Middle School Art Teacher Relationship Specialty Start Date End Date Steffanie Fulton APRN [address] [place] [address] PCP - General Nurse Practitioner 01/15/21 05/02/21 documented as of this encounter
--- OUTSIDE RECORDS SUMMARY | 2024-05-29 15:42 | XMS_ITS | Encounter Summary ---
Author Organization [place] [address] Care Team Providers Care Manager Inventory Name Role Phone Steffanie Fulton APRN Primary Care Provider [phone]- [phone] Reason for Visit * Reason Onset Date Comments Results 04/05/2021 chest xray Encounter Details Date Type Department Care Team (Late st Contact Info) Description 04/05/2021 Telephone [facility] [address] [place] [phone] Steffanie Fulton APRN [address] [email or web address] [address] Results (chest xray ) Social History Tobacco Use Types Packs/Day [...] Telephone Encounter - Hermila Donnelly MA - 04/05/2021 5:27 PM EDT Patient advised of results and advised per Dr. Riley OK to use neb. * Telephone Encounter - Alise Todd - 04/05/2021 3:41 PM EDT Was seen in office went and had chest xray Should he use his nebulizer ? Test Result(s) Purpose of call: Patient seeking results Type of test: Imaging Chest xray Date of test: 04-05-21 Who ordered the test: Dr Riley Where was test performed: [facility] Additional Notes: documented in this encounter Plan of Treatment Upcoming Encounters Date Type Department Care Team (Late st Contact Info) Description 06/28/2024 9:40 AM EST Clinical Support [facility] [address] [place] [address] 11/19/2024 1:40 PM EDT Office Visit [facility] Neurology [facility] [address] [place] [address] Lyndsay Brewer DO [address] [place] [address] documented as of this encounter Goals [...] as of this encounter Care Teams Manager Inventory Relationship Specialty Start Date End Date Steffanie Fulton APRN [address] [place], [place] [id number] PCP - General Nurse Practitioner 01/15/21 05/02/21 documented as of this encounter
--- OUTSIDE RECORDS SUMMARY | 2024-05-29 15:42 | XMS_ITS | Encounter Summary ---
Author Organization [facility] [place] [address] Care Team Providers Care Construction Trades Contractor Name Role Phone Kirstin Steffanie KENT Primary Care Provider +1- [phone] Reason for Visit * Reason Comments Medication Refill Encounter Details Date Type Department Care Team (Late st Contact Info) Description 04/22/2021 Refill [facility] [address] [place] [phone] Chica FultonandaYOLI [address] [place] [address] Medication Refill Social History Tobacco Use Types [...] EVERY DAY IN THE EVENING 30 Tablet 05/19/20 21 documented in this encounter Miscellaneous Notes * Telephone Encounter - Marcela Ignacio CPhT - 04/23/2021 3:38 PM EDT Pravastatin- Medication Refill Protocol failed due to appointment. distribution a class lineman Reason: Chart review does not show a coded diagnosis in protocol timeframe. [facility] Action: Approved 1st carter 30-day supply of medication Routed to office staff for outreach to schedule appointment. documented in this encounter Plan of Treatment Upcoming Encounters Date Type Department Care Team (Late st Contact Info) Description 06/28/2024 9:40 AM EST Clinical Support [facility] [address] [place] [phone] 11/19/2024 1:40 PM EDT Office Visit [facility] Neurology [facility] [address] [place] [phone] Lyndsay Berwer DO [address] [place] [address] documented as of this encounter Goals Goal Patient Goal Type Associated Problems Recent Progress Patient-Stated? Author Blood Pressure < 140/90 Blood Pressure 134/84(2023 1:16 PM EST) No aYna Choi RMA Eat better, exercise, reach an ideal body weight General No Yana Choi RMA Stay Tobacco Free Lifestyle No Yana Choi RMA documented as of this encounter Visit Diagnoses Diagnosis Pure hypercholesterolemia documented in this encounter Discontinued Medications Medication Sig Discontinue Reason Start Date End Da te pravastatin (PRAVACHOL) 20 mg Oral TabletIndications:Pure hypercholesterolemia Take 1 Tab by mouth every evening. 01/21/2021 04/23/2021 documented as of this encounter Care Teams Construction Trades Contractor Relationship Specialty Start Date End Date Steffanie Fulton APRN [address] [place] [address] PCP - General Nurse Practitioner 01/15/21 05/02/21 documented as of this encounter
--- OUTSIDE RECORDS SUMMARY | 2024-05-29 15:42 | XMS_ITS | Encounter Summary ---
Author Organization [place] [address] Care Team Providers Care Tile Finisher Name Role Phone KirstinSteffanie YOLI Primary Care Provider +1- [phone] Reason for Visit * Reason Comments Medication Refill Encounter Details Date Type Department Care Team (Late st Contact Info) Description 04/22/2021 Refill [facility] [address] [place] [address] Michelle Garrido APRN Medication Refill [...] CAPSULE BY MOUTH EVERY DAY 90 Capsule 04/26/2021 2 losartan (COZAAR) 50 mg Oral TabletIndications: Essential hypertension TAKE 1 TABLET BY MOUTH EVERY DAY 90 Tablet 04/26/2021 1 documented in this encounter Miscellaneous Notes * Telephone Encounter - Yessenia Kennedy CPhT - 04/26/2021 7:03 AM EDT Losartan Medication Refill Protocol passed. industrial design engineer Action: Approved refills to noted follow-up date by provider or protocol if no follow-up date noted. Hydrochlorothiazide Medication Refill Protocol passed. industrial design engineer Action: Approved refills to noted follow-up date by provider or protocol if no follow-up date noted. documented in this encounter Plan of Treatment Upcoming Encounters Date Type Department Care Team (Late st Contact Info) Description 06/28/2024 9:40 AM EST Clinical Support [facility] [place] [address] [place] [address] 11/19/2024 1:40 PM EDT Office Visit SEP Neurology [facility] [address] [place] [address] Lyndsay Brewer DO [address] [place] [address] documented as of this encounter [...] TAKE 1 CAPSULE BY MOUTH EVERY DAY 10/22/2020 04/26/2021 losartan (COZAAR) 50 mg Oral TabletIndications:Essenti al hypertension Take 1 Tablet by mouth 2 times daily. 02/09/2021 04/26/2021 documented as of this encounter Care Teams Tile Finisher Relationship Specialty Start Date End Date Steffanie Fulton APRN [address] [place] [address] PCP - General Nurse Practitioner 01/15/21 05/02/21 documented as of this encounter
--- OUTSIDE RECORDS SUMMARY | 2024-05-29 15:42 | XMS_ITS | Encounter Summary ---
Author Organization [place] [address] Care Team Providers Care Executive Team Leader Name Role Phone Steffanie Fulton APRN Primary Care Provider [phone]- [phone] Reason for Referral * EMG (Routine) - Closed Specialty Diagnoses / Procedures Referred By Contact Referred To Contact Physical Medicine and Rehabilitation / Electromyography Diagnoses Paresthesia of both hands Procedures EMG Steffanie Fulton APRN [address] [place] [address] Phone: tel: fax: Florencio Vanegas MD Phone: tel:[phone] fax:[phone] Referral ID Status Reason Start Date Expiration Date Visits Re quested Visits Authorized [id number] Closed 02/09/2021 02/09/2022 1 1 * EMG (Routine) - Closed Specialty Diagnoses / Procedures Referred By Contact Referred To Contact Physical Medicine and Rehabilitation / Electromyography Diagnoses Bilateral foot pain Numbness and tingling of both feet Procedures EMG Steffanie Fulton APRN [address] [place] [id number] Phone: tel: fax: Florencio Vanegas MD Phone: tel:[phone] fax:[phone] Referral ID Status Reason Start Date Expiration Date Visits Re quested Visits Authorized [id number] Closed 01/15/2021 01/15/2022 1 1 Reason for Visit * EMG (Routine) - Closed Specialty Diagnoses / Procedures Referred By Contact Referred To Contact Physical Medicine and Rehabilitation / Electromyography Diagnoses Bilateral foot pain Numbness and tingling of both feet Procedures EMG Steffanie Fulton APRN [address] [employer] [employer] [place] [address] Phone: tel: fax: Florencio Vanegas MD Phone: tel:[phone] fax:[phone] Referral ID Status Reason Start Date Expiration Date Visits Re quested Visits Authorized [id number] Closed 01/15/2021 01/15/2022 1 1 Encounter Details Date Type Department Care Team (Latest Contact Info) Description 04/19/2021 11:53 AM EDT - 04/19/2021 11:59 PM EDT Hospital Encounter [facility] [address] [place] [address] Guilherme Argueta Lumbosacral radiculopathy (Primary Dx); Bilateral foot pain; Numbness and tingling of both feet; Paresthesia of both hands; Ulnar neuropathy of left upper extremity Discharge Disposition: Home or Self Care Social [...] Jane Garrido MA documented in this encounter Medications at Time of Discharge Nebulizer Accessories (ALL FLOW 4000 KIT) [facility] Formulary equivalent 1 Each 0 3 ADVAIR DISKUS 500-50 mcg/dose Inhl Disk with DeviceIndications:Encoun ter for medication refill INHALE 1 PUFF BY MOUTH TWICE A DAY 180 Each 1 1 022 albuterol (PROVENTIL HFA;VENTOLIN HFA) 90 mcg/actuation Inhl HFA Aerosol InhalerIndications:Encou nter for medication refill INHALE 1 TO 2 PUFFS EVERY 4 HOURS NEEDED FOR WHEEZING. 1 Each 1 1 021 betamethasone dipropionate (DIPROLENE) 0.05 % [...] times daily. 60 Tablet 3 1 021 montelukast (SINGULAIR) 10 mg Oral [...] BY MOUTH EVERY NIGHT 90 Capsule 1 1 021 documented as of this encounter Discharge Disposition Disposition Code Departure Means Destination Home or Self Care documented in this encounter Progress Notes * Florencio Vanegas MD - 04/19/2021 12:00 PM EDT Electrodiagnostic study report can be found in other diagnostic section in [facility]. documented in this encounter Plan of Treatment Upcoming Encounters Date Type Department Care Team (Late st Contact Info) Description 06/28/2024 9:40 AM EST Clinical Support [facility] [place] [address] [place] [address] 11/19/2024 1:40 PM EDT Office Visit [facility] [address] [place] [address] Lyndsay Brewer [address] [place] [address] Scheduled Orders Name Type Priority Associated Diagnoses Orde r Schedule EMG Neurology Routine Paresthesia of both hands 1 Occurrences starting 04/19/2021 until 04/19/2021 documented as of this encounter Goals Goal [...] Procedure Name Priority Date/Time Associated Diagnosis Comments EMG Routine 04/19/2021 1:01 PM EDT Bilateral foot pain Numbness and tingling of both feet documented in this encounter Results * (ABNORMAL) EMG (04/19/2021 1:01 PM EDT) Impressions [facility] - 04/19/2021 1:01 PM EDT Abnormal electrodiagnostic study There is EMG evidence of active/chronic bilateral L4 radiculopathies. ??There is evidence of fibrillation potentials seen in the lumbar paraspinals suggestive of active ongoing denervation. 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 No evidence for a left or right cervical radiculopathy. EMG findings of low amplitude median sensory responses are of unknown significance. ??Could represent evidence of a previous median neuropathy, but with normal distal latency, conduction velocity, and needle exam unable to localize. No evidence for a length dependent peripheral neuropathy. Florencio Vanegas MD -Board Certified Physical Medicine and Rehabilitation Narrative [facility] - 04/19/2021 1:01 PM EDT Nerve conduction studies performed on bilateral upper extremities and right lower extremity. Bilateral median motor studies were normal. Bilateral median antidromic sensory study showed low amplitude responses with normal distal latencies. The left ulnar motor study was normal amplitude with slowing of the conduction velocity greatest about the elbow. The left ulnar antidromic sensory study was absent. The right ulnar motor study was normal for amplitude and distal latency and conduction velocity. The right ulnar antidromic sensory study was borderline low amplitude with normal distal latency. Bilateral radial sensory studies were normal. The right peroneal and tibial motor studies were normal. The right superficial peroneal and sural sensory responses were normal. Concentric needle examination was performed on bilateral upper and lower extremities. ??In the left upper extremity there was evidence of fibrillation potentials and motor unit potential changes with reduced recruitment, long-duration, high amplitude motor unit potentials in the ulnar innervated hand muscles. ??Remaining muscles in the left upper extremity and the entire right upper extremity were normal. In the lower extremities bilateral L4 innervated muscles showed long-duration high amplitude motor unit potentials with reduced recruitment slightly worse on the left than the right. ??There was evidence of fibrillation potentials in the lumbar paraspinals in the mid lumbar level. ??Remaining muscles in bilateral lower extremities were normal. See scanned table for details. Steffanie Fulton APRN NEUROLOGY ORDERABLES Final Result [facility] [address] [place] [address] documented in this encounter Visit Diagnoses Diagnosis Lumbosacral radiculopathy- Primary Thoracic or lumbosacral neuritis or radiculitis, unspecified Bilateral foot pain Pain in limb Numbness and tingling of both feet Paresthesia of both hands Ulnar neuropathy of left upper extremity Lesion of ulnar nerve documented in this encounter Care Teams Executive Team Leader Relationship Specialty Start Date End Date Steffanie Fulton APRN [address] [place] [id number] PCP - General Nurse Practitioner 01/15/21 05/02/21 documented as of this encounter
--- OUTSIDE RECORDS SUMMARY | 2024-05-29 15:42 | XMS_ITS | Encounter Summary ---
Author Organization [facility] [place] [address] Care Team Providers Care Computer Technologist Name Role Phone Steffanie Fulton APRN Primary Care Provider [phone] Encounter Details Date Type Department Care Team (Latest Contact Info) Description 04/19/2021 Travel Social History Tobacco Use Types Packs/Day [...] EST Clinical Support [facility] [place] [address] [place] [phone] 11/19/2024 1:40 PM EDT Office Visit [facility] [address] [place] [id number] Lyndsay Brewer, [address] [place] [address] [place] [address] documented as of this encounter Goals Goal [...] on filedocumented in this encounter Care Teams Computer Technologist Relationship Specialty Start Date End Date Steffanie Fulton APRN [address] [place] [address] PCP - General Nurse Practitioner 01/15/21 05/02/21 documented as of this encounter
--- OUTSIDE RECORDS SUMMARY | 2024-05-29 15:42 | XMS_ITS | Encounter Summary ---
Author Organization [place] [address] Care Team Providers Care Geomagnetician Name Role Phone Steffanie Fulton APRN Primary Care Provider [phone]- [phone] Reason for Visit * Reason Onset Date Comments Symptom Call 04/28/2021 knee pain Encounter Details Date Type Department Care Team (Late st Contact Info) Description 04/28/2021 Telephone [facility] [address] [place] [address] Steffanie Fulton APRN [address] [place] [address] Symptom Call (knee pain ) Social History Tobacco Use Types Packs/Day [...] Telephone Encounter - Farzana Garrido MA - 04/28/2021 9:21 AM EDT Pt advised that no one completed here in our office. Advised to call urgent care or orthocincy to see if can be completed there. * Telephone Encounter - Rosalina Shi - 04/28/2021 8:34 AM EDT Pt wants to know if anyone in your office does steroid injections in his knee for knee hayes , E Hema used to do them and he wants this done today, please call documented in this encounter Plan of Treatment Upcoming Encounters Date Type Department Care Team (Late st Contact Info) Description 06/28/2024 9:40 AM EST Clinical Support [facility] [address] [place] [phone] 11/19/2024 1:40 PM EDT Office Visit [facility] [address] [place] [address] Lyndsay Brewer, DO [address] [place] [address] documented as of this encounter Goals Goal [...] on filedocumented in this encounter Care Teams Geomagnetician Relationship Specialty Start Date End Date Steffanie Fulton APRN [address] [place] [address] PCP - General Nurse Practitioner 01/15/21 05/02/21 documented as of this encounter
--- OUTSIDE RECORDS SUMMARY | 2024-05-29 15:42 | XMS_ITS | Encounter Summary ---
Author Organization [facility] [place] [address] Care Team Providers Care Lead Software Engineer Name Role Phone Steffanie Fulton APRN Primary Care Provider [phone]- [phone] Encounter Details Date Type Department Care Team (Latest Contact Info) Description 03/25/2021 10:46 AM EDT - 03/25/2021 11:59 PM EDT Hospital Encounter [facility] [address] [place] [address] COVID-19 (Primary Dx) Discharge Disposition: Home or Self [...] suspected to have Coronavirus / COVID-19? Yes 03/25/2021 10:44 AM EDT documented as of this encounter Last Filed Vital Signs Vital Sign Reading Time Taken Comments Blood Pressure 111/78 03/25/2021 11:33 AM EDT Pulse 80 03/25/2021 11:33 AM EDT Temperature 37.2 ??C (98.9 ??F) 03/25/2021 1 0:47 AM EDT Respiratory Rate 18 03/25/2021 11:3 3 AM EDT Oxygen Saturation 97% 03/25/2021 11: 33 AM EDT Inhaled Oxygen Concentration - - Weight 95.6 kg (210 lb 12.8 oz) 021 10:47 AM EDT Height - - Body Mass Index 33.02 02/09/2021 8:28 AM EDT documented in this encounter Functional [...] Nebulizer Accessories (ALL FLOW 4000 KIT) [facility] Formul[facility] equivalent 1 Each 0 3 ADVAIR [...] by mouth daily. 30 Tab 2 1 montelukast (SINGULAIR) 10 mg Oral TabletIndications:Modera te [...] in this encounter Progress Notes * Selene Walton RN - 03/25/2021 11:00 AM EDT Covid 19 Outpatient Infusion Zuhair Whitlock is a 55 y.o. year old male presenting to [facility] for treatment of coronavirus disease. Patient is scheduled to receive casirivimab 600 mg + imdevimab 600 mg once In accordance with the FDA Emergency Use Authorization issuance, the patient meets criteria for treatment including: - Patient does not have new or increased oxygen requirement - Symptom onset within 10 days - Positive SARS-CoV-2 test - High risk as defined as ONE of the following: o Older age (ex. >=65 years of age) o BMI >= 25 o o Chronic kidney disease o Diabetes o Immunosuppressive disease or immunosuppressive treatment o Cardiovascular disease o Hypertension o Chronic lung disease (ex. COPD, mild/moderate asthma, ILD, CF, pulmonary hypertension) o Sickle cell disease o Neurodevelopment disorders or other conditions that confer medical complexity o Medical-related technological dependence (ex. tracheostomy, gastrostomy, positive pressure ventilation unrelated to COVID19) - Other medical conditions or factors may also place patients at high risk. Authorization of treatment is not limited to the list above. Side effect information has been discussed with the patient, which includes but is not limited to hypersensitivity and infusion reactions. Prior to receiving the infusion, the patient was provided with a copy of the Fact Sheet for Patients, Parents, and Caregivers. Consent has been obtained. The following additional information has been provided: - The patient or parent/caregiver has the option to accept or refuse asirivimab and imdevimab. - The significant known and potential risks and benefits of casirivimab and imdevimab, and the extent to which such risks and benefits are unknown. - Information on available alternative treatments and the risks and benefits of those alternatives,including clinical trials. - Patients treated with casirivimab and imdevimab should continue to self- isolate and use infectioncontrol measures (e.g., wear mask, isolate, social distance, avoid sharing personal items, clean and disinfect ???high touch?? surfaces, and frequent handwashing) according to CDC guidelines. - Per CDC recommendations, COVID19 vaccination should be deferred for at least 90 days, as a precautionary measure until additional information becomes available, to avoid potential interference of the antibody therapy with vaccine- induced immune responses. Patient has been instructed to contact the prescriber or seek medical attention as needed with questions or concerns upon discharge. documented in this encounter Miscellaneous Notes * Patient Instructions - Selene Walton RN - 03/25/2021 11:00 AM EDT What do I do if I cannot get a COVID 19 test at this time and I think I may have it or have been exposed? Follow the steps below: If you are sick with COVID-19 or suspect you are infected with the virus that causes COVID-19, follow the steps below to help prevent the disease from spreading to people in your home and community Stay at Home ??? Stay home: People who are mildly ill with COVID-19 are able to isolate at home during their illness. You should restrict activities outside your home. ??? Avoid public areas:Do not go to work, school, or public areas. ??? Avoid public transportation: Avoid using public transportation, ride- sharing, or taxis. Separate Yourself From other People and Animals ??? Stay away from others: As much as possible, you should stay in a specific room and away from other people in your home. Also, you should use a separate bathroom, if available. ? ? Limit contact with pets & animals: You should restrict contact with pets and other animals while you are sick with COVID-19, just like you would around other people. Although there have not been reports of pets or other animals becoming sick with COVID-19, it is still recommended that people sick with COVID-19 limit contact with animals until more information is known about the virus. When possible, have another member of your household care for your animals while you are sick. If you are sick with COVID-19, avoid contact with your pet, including petting, snuggling, being kissed or licked, and sharing food. If you must care for your pet or be around animals while you are sick, wash your hands before and after you interact with pets and wear a facemask. Call Ahead Before Visiting Your Doctor or the ER ??? Call ahead: If you have a medical appointment, call the healthcare provider and tell them that you have or may have COVID-19. This will help the healthcare provider???s office take steps to keep other people from getting infected or exposed Wear a facemask if you are sick (if possible) ??? If you are sick: You should wear a facemask when you are around other people (e.g., sharing a room or vehicle) or pets and before you enter a healthcare provider???s office. ??? If you are caring for others: If the person who is sick is not able to wear a facemask (for example, because it causes trouble breathing), then people who live with the person who is sick should not stay in the same room with them, or they should wear a facemask if they enter a room with the person who is sick. Cover your coughs and sneezes ??? Cover: Cover your mouth and nose with a tissue when you cough or sneeze. ??? Dispose: Throw used tissues in a lined trash can. ??? Wash hands: Immediately wash your hands with soap and water for at least 20 seconds or, if soapand water are not available, clean your hands with an alcohol-based hand assistant property manager that contains atleast 60% alcohol. Clean your hands often ??? Wash hands: Wash your hands often with soap and water for at least 20 seconds, especially afterblowing your nose, coughing, or sneezing; going to the bathroom; and before eating or preparing food. ??? Hand assistant property manager: If soap and water are not readily available, use an alcohol- based hand assistant property manager with at least 60% alcohol, covering all surfaces of your hands and rubbing them together until they feel dry. ??? Soap and water: Soap and water are the best option if hands are visibly dirty. ??? Avoid touching: Avoid touching your eyes, nose, and mouth with unwashed hands. Avoid sharing personal household items ??? Do not share: You should not share dishes, drinking glasses, cups, eating utensils, towels, or bedding with other people or pets in your home. ??? Wash thoroughly after use: After using these items, they should be washed thoroughly with soap and water. Clean all ???high-touch?? surfaces everyday ??? Clean and disinfect: Practice routine cleaning of high touch surfaces. ??? Disinfect areas with bodily fluids: Also, clean any surfaces that may have blood, stool, or body fluids on them. ??? Household food production worker: Use a household cleaning spray or wipe, according to the label instructions. Labels contain instructions for safe and effective use of the cleaning product including precautions you should take when applying the product, such as wearing gloves and making sure you have good ventilation during use of the product. Monitor your symptoms ??? Seek medical attention: Seek prompt medical attention if your illness is worsening (e.g., difficulty breathing). ??? Call your doctor Before seeking care: Call your healthcare provider and tell them that you have, or are being evaluated for, COVID-19. ??? Wear a facemask when sick: Put on a facemask before you enter the facility. These steps will help the healthcare provider???s office to keep other people in the office or waiting room from getting infected or exposed. Call 911 if you have a medical emergency: If you have a medical emergency and need to call 911, notify the dispatch personnel that you have, or are being evaluated for COVID-19. If possible, put on afacemask before emergency medical services arrive. Discontinuing home isolation ??? Stay at home until instructed to leave: Patients with confirmed COVID-19 should remain under home isolation precautions until the risk of secondary transmission to others is thought to be low. ??? Talk to your healthcare provider: The decision to discontinue home isolation precautions shouldbe made on a [id number] basis, in consultation with healthcare providers and state and local health departments. documented in this encounter Plan of Treatment Upcoming Encounters Date Type Department Care Team (Late st Contact Info) Description 06/28/2024 9:40 AM EST Clinical Support [facility] [address] [place] [phone] 11/19/2024 1:40 PM EDT Office Visit [facility] [address] [place] [address] Lyndsay Brewer DO [address] [place] [address] documented as of this encounter Goals Goal Patient Goal Type Associated Problems Recent Progress Patient-Stated? Author Blood Pressure < 140/90 Blood Pressure 134/84(2023 1:16 PM EST) Yana Pina RMA Eat better, exercise, reach an ideal body weight General No Yana Choi RMA Stay Tobacco Free Lifestyle No Yana Choi RMA documented as of this encounter Visit Diagnoses Diagnosis COVID-19- Primary documented in this encounter Administered Medications Inactive Administered Medications - up to 1 most recent administrations Medication Order MAR Action Action Date Dose Rate Site ID - casirivimab/imdevimab 600mg/600mg in NS 100 mL 600 mg, Intravenous, ONCE, 1 dose, On Maritza 03/25/21 at 1115, Administer over 21 Minutes, Administer via dedicated IV line containing a sterile, in-line or add-on 0.2 micron polyethersulfone (PES) filter. After infusion is complete, flush with 0.9 % Sodium Chloride Injection. Make sure Fact Sheet given to patient. If copy is needed, can print from link on MAR, Patient tested positive for SARS-CoV-2? YES, Patient will receive infusion within 7 days of symptom onset? YES, Date of symptom onset? 03/21/2021, Patient meets at least ONE high risk criteria? Choose all that apply: Body mass index (BMI) >= 25, Chronic Lung disease, Hypertension, Patient is receiving drug in an outpatient setting? YES, Dx: 1. COVID-19Indications:COVID-19 IV Started 03/25/2021 11:05 AM EDT 600 mg 285.7 mL/hr documented in this encounter Orders Medications Ordered That Tone ht Not Have Been Administered Count Last Ordered Date First Ordered Date 0.9 % NaCl infusion 1 03/25/2021 documented in this encounter Additional Health Concerns Infection Onset Date Last Indicated Resolved Time COVID-19 03/23/2021 03/23/2021 04/12/2021 10:1 2 PM EDT documented as of this encounter Care Teams Lead Software Engineer Relationship Specialty Start Date End Date Steffanie Fulton APRN [address] [place] [address] PCP - General Nurse Practitioner 01/15/21 05/02/21 documented as of this encounter
--- OUTSIDE RECORDS SUMMARY | 2024-05-29 15:42 | XMS_ITS | Encounter Summary ---
Author Organization [facility] [address] Care Team Providers Care Public Speaker Name Role Phone Michelle Garrido APRN Primary Care Provider Unava ilable Encounter Details Date Type Department Care Team (Latest Contact Info) Description 05/21/2021 Travel Social History Tobacco Use Types Packs/Day [...] Clinical Support [facility] [address] [place], [place] [phone] 11/19/2024 1:40 PM EDT Office Visit [facility] Neurology [facility] [address] [place] [address] Lyndsay Brewer, [address] [place] [address] documented as of this encounter [...] on filedocumented in this encounter Care Teams Public Speaker Relationship Specialty Start Date End Date Michelle Garrido APRN PCP - General Nurse Practitioner 05/03/21 05/27/21 documented as of this encounter
--- OUTSIDE RECORDS SUMMARY | 2024-05-29 15:42 | XMS_ITS | Encounter Summary ---
Author Organization [place] [address] Care Team Providers Care Purchasing Supervisor Name Role Phone Kirstin Steffanie KENT Primary Care Provider +1- [phone] Reason for Visit * Reason Comments Medication Refill Encounter Details Date Type Department Care Team (Late st Contact Info) Description 04/06/2021 Refill [facility] [address] [place] [phone] Chica FultonandaYOLI [address] [place] [address] Medication Refill Social History Tobacco Use Types [...] Refills Last Filled Start Date End Date meloxicam (MOBIC) 15 mg Oral TabletIndications:Bi lateral foot pain,Localized osteoarthritis of hand, unspecified laterality TAKE 1 TABLET BY MOUTH EVERY DAY 30 Tablet 2 04/06/2021 documented in this encounter Plan of Treatment Upcoming Encounters Date Type Department Care Team (Late st Contact Info) Description 06/28/2024 9:40 AM EST Clinical Support [facility] [address] [place] [phone] 11/19/2024 1:40 PM EDT Office Visit [facility]P Neurology [facility] [address] [place] [address] Lyndsay Brewer, DO [address] [place] [address] documented as of this encounter [...] Da te meloxicam (MOBIC) 15 mg Oral TabletIndications:Bilateral foot pain,Localized osteoarthritis of hand, unspecified laterality Take 1 Tab by mouth daily. 01/15/2021 04/06/2021 documented as of this encounter Additional Health Concerns Infection Onset Date Last Indicated Resolved Time COVID-19 03/23/2021 03/23/2021 04/12/2021 10:1 2 PM EDT documented as of this encounter Care Teams Purchasing Supervisor Relationship Specialty Start Date End Date Steffanie Fulton APRN [address] [place] [address] PCP - General Nurse Practitioner 01/15/21 05/02/21 documented as of this encounter
--- OUTSIDE RECORDS SUMMARY | 2024-05-29 15:42 | XMS_ITS | Encounter Summary ---
Author Organization [place] [address] Care Team Providers Care Therapeutic Recreation Specialist Name Role Phone Michelle Garrido APRN Primary Care Provider Unava ilable Reason for Visit * Reason Comments Medication Refill Encounter Details Date Type Department Care Team (Late st Contact Info) Description 05/18/2021 Refill [facility] [address] [place] [phone] Steffanie Fulton APRN [address] [place] [address] Medication Refill Social History Tobacco Use Types [...] EVERY DAY IN THE EVENING 30 Tablet 06/14/20 21 documented in this encounter Miscellaneous Notes * Telephone Encounter - Shaheed Joya CPhT - 05/19/2021 2:20 PM EST Pravastatin- Medication Refill Protocol failed due to appointment. [facility] Reason: Chart review does not show a coded diagnosis in protocol timeframe. [facility] Action: Approved 2nd carter 30-day supply of medication Routed to office staff for outreach to schedule appointment. documented in this encounter Plan of Treatment Upcoming Encounters Date Type Department Care Team (Late st Contact Info) Description 06/28/2024 9:40 AM EST Clinical Support [facility] [address] [employer] [place] [phone] 11/19/2024 1:40 PM EDT Office Visit SEP Neurology [facility] [address] [place] [address] Lyndsay Brewer DO [address] [place] [address] documented as of this encounter [...] BY MOUTH EVERY DAY IN THE EVENING 04/23/2021 05/19/2021 documented as of this encounter Care Teams Therapeutic Recreation Specialist Relationship Specialty Start Date End Date Michelle Garrido APRN PCP - General Nurse Practitioner 05/03/21 05/27/21 documented as of this encounter
--- OUTSIDE RECORDS SUMMARY | 2024-05-29 15:42 | XMS_ITS | Encounter Summary ---
Author Organization [facility] [address] Care Team Providers Care Portable Track Crew Chief Name Role Phone Steffanie Fulton APRN Primary Care Provider +1- [phone] Encounter Details Date Type Department Care Team (Latest Contact Info) Description 03/25/2021 Travel Social History Tobacco Use Types Packs/Day [...] EST Clinical Support [facility] [address] [employer] [place] [phone] 11/19/2024 1:40 PM EDT Office Visit SEP Neurology [facility] [address] [place] [address] Lyndsay Brewer, [address] CRAIN [facility] [place] [address] documented as of this encounter Goals [...] documented as of this encounter Care Teams Portable Track Crew Chief Relationship Specialty Start Date End Date Steffanie Fulton APRN [address] [place] [address] PCP - General Nurse Practitioner 01/15/21 05/02/21 documented as of this encounter
--- OUTSIDE RECORDS SUMMARY | 2024-05-29 15:42 | XMS_ITS | Encounter Summary ---
Author Organization [place] [address] Care Team Providers Care Wash Box Operator Name Role Phone Kirstin Steffanie KENT Primary Care Provider +1- [phone] Reason for Visit * Reason Comments Medication Refill Encounter Details Date Type Department Care Team (Late st Contact Info) Description 04/29/2021 Refill [facility] [address] [place] [phone] Kirstin SteffanieYOLI [address] [place] [address] Medication Refill Social History Tobacco Use Types [...] NEEDED FOR WHEEZING. 6.7 Each 1 04/29/2021 09/01/2021 documented in this encounter Plan of Treatment Upcoming Encounters Date Type Department Care Team (Late st Contact Info) Description 06/28/2024 9:40 AM EST Clinical Support [facility] [address] [place] [phone] 11/19/2024 1:40 PM EDT Office Visit SEP Neurology [facility] [address] [place] [phone] Lyndsay Brewer, DO [address] [place] [address] documented as of this [...] PUFFS EVERY 4 HOURS NEEDED FOR WHEEZING. 03/03/2021 04/29/2021 documented as of this encounter Care Teams Wash Box Operator Relationship Specialty Start Date End Date Steffanie Fulton APRN [address] [place] [address] PCP - General Nurse Practitioner 01/15/21 05/02/21 documented as of this encounter
--- OUTSIDE RECORDS SUMMARY | 2024-05-29 15:42 | XMS_ITS | Encounter Summary ---
Author Organization [place] [address] Care Team Providers Care Halal Meat Packer Name Role Phone Michelle Garrido APRN Primary Care Provider Unava ilable Reason for Visit * Reason Comments Injections knee injection Encounter Details Date Type Department Care Team (Latest Contact Info) Description 05/03/2021 10:45 AM EST Office Visit [facility] [address] [place] [address] Michelle Garrido APRN Primary osteoarthritis of both knees (Primary Dx) Social History Tobacco Use Types [...] have Coronavirus / COVID-19? No / Unsure 05/03/2021 10:13 AM EST documented as of this encounter Last Filed Vital Signs Vital Sign Reading Time Taken Comments Blood Pressure 132/80 05/03/2021 11:07 AM EST Pulse 84 05/03/2021 11:07 AM EST Temperature 36.7 ??C (98 ??F) 05/03/2021 11:07 AM EST Respiratory Rate - - Oxygen Saturation 98% 05/03/2021 11:07 AM EST Inhaled Oxygen Concentration - - Weight 97.5 kg (215 lb) 05/03/2021 11:07 AM EST Height 170.2 cm (5' 7 ) 05/03/2021 11:07 AM EST Body Mass Index 33.67 05/03/2021 11:07 AM EST documented in this encounter Functional [...] documented in this encounter Progress Notes * Darlin Garridojosee Tavares, BILLBOARD INSTALLER - 05/03/2021 10:45 AM EST Vitals: 05/03/21 1107 BP: 132/80 BP Location: Left arm Patient Position: Sitting Pulse: 84 Temp: 98 ??F (36.7 ??C) TempSrc: Forehead SpO2: 98% Weight: 215 lb (97.5 kg) Height: 5' 7 (1.702 m) SUBJECTIVE: Chief Complaint Patient presents with ??? Injections knee injection HPI: patient is a new patient at this office Patient wants knee injections in both knees Hx of OA bilateral knees. Needs knee replacement but cant afford to take the time off yet. Has had synvisc injections with no relief. Still gets moderate relief from steroid injections that lasts him4-6 weeks at a time. Has seen Keyla about knee replacement and thinks he may be able to afford todo it in 2021. Review of Systems Constitutional: Negative for chills, diaphoresis and fever. Musculoskeletal: Positive for arthralgias ( bilateral knees). OBJECTIVE: Physical Exam Cardiovascular: Rate and Rhythm: Normal rate. Pulses: Normal pulses. Pulmonary: Effort: Pulmonary effort is normal. Musculoskeletal: Right knee: Swelling present. No deformity, effusion or erythema. Left knee: Swelling present. No deformity, effusion or erythema. Skin: General: Skin is warm. Capillary Refill: Capillary refill takes less than 2 seconds. Neurological: Mental Status: He is alert. A steroid injection was performed at bilateral knees using sterile technique with lateral approach with 1% plain Lidocaine and 80 mg of Depo-medrol. This was well tolerated. Assessment Diagnoses and all orders for this visit: Primary osteoarthritis of both knees - [place] ARTHROCENTESIS ASPIR&/INJ MAJOR JT/BURSA W/O US - [place] ARTHROCENTESIS ASPIR&/INJ MAJOR JT/BURSA W/O US - methylPREDNISolone acetate (DEPO-Medrol) injection 80 mg - methylPREDNISolone acetate (DEPO-Medrol) injection 80 mg documented in this encounter Plan of Treatment Upcoming Encounters Date Type Department Care Team (Late st Contact Info) Description 06/28/2024 9:40 AM EST Clinical Support [facility] [address] [employer] [place] [address] 11/19/2024 1:40 PM EDT Office Visit [facility]P Neurology [facility] [address] [place] [phone] Lyndsay Brewer, [address] [place] [address] Scheduled Orders Name Type Priority Associated Diagnoses Orde r Schedule [place] ARTHROCENTESIS ASPIR&/INJ MAJOR JT/BURSA W/O US [place] Charge Routine Primary osteoarthritis of both knees Ordered: 05/03/2021 [place] ARTHROCENTESIS ASPIR&/INJ MAJOR JT/BURSA W/O US [place] Charge Routine Primary osteoarthritis of both knees Ordered: 05/03/2021 documented as of this encounter Goals Goal Patient Goal Type Associated Problems Recent Progress Patient-Stated? Author Blood Pressure < 140/90 Blood Pressure 134/84(2023 1:16 PM EST) No Yana Choi RMJane Eat better, exercise, reach an ideal body weight General No Yana Choi RMA Stay Tobacco Free Lifestyle No Yana Choi RMJane documented as of this encounter Visit Diagnoses Diagnosis Primary osteoarthritis of both knees- Primary Primary localized osteoarthrosis, lower leg documented in this encounter Administered Medications Inactive Administered Medications - up to 1 most recent administrations Medication Order MAR Action Action Date Dose Rate Site methylPREDNISolone acetate (DEPO-Medrol) injection 80 mg 80 mg, Intra-articular, ONCE, 1 dose, On Mon05/03/21 at 1145, Dx: 1. Primary osteoarthritis of both kneesIndications:Primary osteoarthritis of both knees Given 05/03/2021 11:44 AM EST 80 mg Left Knee methylPREDNISolone acetate (DEPO-Medrol) injection 80 mg 80 mg, Intra-articular, ONCE, 1 dose, On Mon05/03/21 at 1145, Dx: 1. Primary osteoarthritis of both kneesIndications:Primary osteoarthritis of both knees Given 05/03/2021 11:42 AM EST 80 mg Right Knee documented in this encounter Care Teams Halal Meat Packer Relationship Specialty Start Date End Date Michelle Garrido, YOLI PCP - General Nurse Practitioner 05/03/21 05/27/21 documented as of this encounter
--- OUTSIDE RECORDS SUMMARY | 2024-05-29 15:42 | XMS_ITS | Encounter Summary ---
Author Organization [facility] [place] [address] Care Team Providers Care Avionics Supervisor Name Role Phone Steffanie Fulton APRN Primary Care Provider +1- [phone] Encounter Details Date Type Department Care Team (Latest Contact Info) Description 04/05/2021 Travel Social History Tobacco Use Types Packs/Day [...] Assessment Author No 10/07/2020 8:08 AM EDT Jaen Garrido MA documented as of this encounter [...] EST Clinical Support [facility] [address] [place] [phone] 11/19/2024 1:40 PM EDT Office Visit SEP Neurology [facility] [address] [place] [address] Lyndsay Brewer, [address] [facility] [place] [address] documented as of this encounter Goals [...] documented as of this encounter Care Teams Avionics Supervisor Relationship Specialty Start Date End Date Steffanie Fulton APRN [address] [employer] [place] [address] PCP - General Nurse Practitioner 01/15/21 05/02/21 documented as of this encounter
--- OUTSIDE RECORDS SUMMARY | 2024-05-29 15:42 | XMS_ITS | Encounter Summary ---
Author Organization [facility] [place] [address] Care Team Providers Care Plumbing Foreman Name Role Phone Michelle Garrido APRN Primary Care Provider Unava ilable Encounter Details Date Type Department Care Team (Latest Contact Info) Description 05/03/2021 Travel Social History Tobacco Use Types Packs/Day [...] Clinical Support [facility] [address] [place], [place] [phone] 11/19/2024 1:40 PM EDT Office Visit SEP Neurology [facility] [address] [place] [phone] Lyndsay Brewer, [address] [place] [address] documented as of this encounter [...] on filedocumented in this encounter Care Teams Plumbing Foreman Relationship Specialty Start Date End Date Michelle Garrido APRN PCP - General Nurse Practitioner 05/03/21 05/27/21 documented as of this encounter
--- OUTSIDE RECORDS SUMMARY | 2024-05-29 15:42 | XMS_ITS | Encounter Summary ---
Author Organization [place] [address] Care Team Providers Care Roll Up Operator Name Role Phone Steffanie Fulton APRN Primary Care Provider +1- [phone] Reason for Referral * Consultation (Routine) - Closed Specialty Diagnoses / Procedures Referred By Contac t Referred To Contact Orthopedic Surgery Diagnoses Numbness and tingling of both feet Steffanie Fulton APRN [address] [place] [address] Phone: tel: fax: Kenny Patterson MD [address] [place] [address] Phone: tel: fax: Referral ID Status Reason Start Date Expiration Date Visits Re quested Visits Authorized [id number] Closed 04/20/2021 04/20/2022 99 99 * Consultation (Routine) - Closed Specialty Diagnoses / Procedures Referred By Contac t Referred To Contact Orthopedic Surgery Diagnoses Paresthesia of both hands Steffanie Fulton APRN [address] [place] [id number] Phone: tel: fax: Shaheed Mckeon MD Referral ID Status Reason Start Date Expiration Date Visits Re quested Visits Authorized [id number] Closed 04/20/2021 04/20/2022 99 99 Encounter Details Date Type Department Care Team (Late st Contact Info) Description 04/20/2021 Orders Only [facility] [address] [place] [phone] Steffanie Fulton APRN [address] [place] [phone] Paresthesia of both hands (Primary Dx); Numbness and tingling of both feet Social History Tobacco Use Types Packs/Day Years [...] AM EST Clinical Support [facility] [address] [place] [address] 11/19/2024 1:40 PM EDT Office Visit SEP Neurology [facility] [address] [place] [address] Lyndsay Brewer DO [address] [place] [address] Scheduled Referrals Name Type Priority Associated Diagnoses Order Schedule AMB REFERRAL TO ORTHOPEDIC SURGERY Outpatient Referral Routine Paresthesia of both hands Ordered: 04/20/2021 AMB REFERRAL TO ORTHOPEDIC SURGERY Outpatient Referral Routine Numbness and tingling of both feet Ordered: 04/20/2021 documented as of this encounter Goals Goal Patient Goal Type Associated Problems Recent Progress Patient-Stated? Author Blood Pressure < 140/90 Blood Pressure 134/84(2023 1:16 PM EST) Yana Pina RMA Eat better, exercise, reach an ideal body weight General No Yana Choi RMA Stay Tobacco Free Lifestyle No Yana Choi RMA documented as of this encounter Visit Diagnoses Diagnosis Paresthesia of both hands- Primary Numbness and tingling of both feet documented in this encounter Care Teams Roll Up Operator Relationship Specialty Start Date End Date Steffanie Fulton APRN [address] [place] [address] PCP - General Nurse Practitioner 01/15/21 05/02/21 documented as of this encounter
[2024-05-29] MEDS: AZITHROMYCIN 250MG TABLET 500 MG PO (15:43)
[2024-05-29] MEDS: IPRATROPIUM/ALBUTEROL 3 ML NEB 9 ML IH (15:43)
--- OUTSIDE RECORDS SUMMARY | 2024-05-29 15:43 | XMS_ITS | Encounter Summary ---
Author Organization [place] [address] Care Team Providers Care Ethylbenzene Converter Operator Name Role Phone Kirstin Steffanie YOLI Primary Care Provider +1- [phone] Reason for Visit * Reason Comments Medication Refill Encounter Details Date Type Department Care Team (Late st Contact Info) Description 03/03/2021 Refill [facility] [address] [place] [phone] KirstinSteffanieYOLI [address] [place] [place] [address] Medication Refill Social History Tobacco Use Types [...] have Coronavirus / COVID-19? No / Unsure 02/04/2021 10:00 AM EDT documented as of this encounter [...] HOURS NEEDED FOR WHEEZING. 1 Each 1 03/03/2021 04/29/2021 documented in this encounter Plan of Treatment Upcoming Encounters Date Type Department Care Team (Late st Contact Info) Description 06/28/2024 9:40 AM EST Clinical Support [facility] [address] [place] [phone] 11/19/2024 1:40 PM EDT Office Visit SEP Neurology [facility] [address] [place] [phone] Lyndsay Brewer, DO [address] [place] [address] documented as of this encounter [...] Reason Start Date End Da te albuterol (VENTOLIN HFA) 90 mcg/actuation Inhl HFA Aerosol InhalerIndications:Encou nter for medication refill INHALE 1 TO 2 PUFFS EVERY 4 HOURS NEEDED FOR WHEEZING. 01/20/2021 03/03/2021 documented as of this encounter Care Teams Ethylbenzene Converter Operator Relationship Specialty Start Date End Date Steffanie Fulton APRN [address] [place] [address] PCP - General Nurse Practitioner 01/15/21 05/02/21 documented as of this encounter
--- OUTSIDE RECORDS SUMMARY | 2024-05-29 15:43 | XMS_ITS | Encounter Summary ---
Author Organization [place] [address] Care Team Providers Care Senior Revenue Accountant Name Role Phone Michelle Garrido APRN Primary Care Provider Willie aguila Encounter Details Date Type Department Care Team (Late st Contact Info) Description 01/07/2021 Orders Only [facility] [address] [place] [address] Cindy Kaufman MA BPH without urinary obstruction Social History Tobacco [...] erectile dysfunction 90 Tab 2 01/07/2021 2 documented in this encounter Plan of Treatment Upcoming Encounters Date Type Department Care Team (Late st Contact Info) Description 06/28/2024 9:40 AM EST Clinical Support [facility] [place] [address] [employer] [place] [phone] 11/19/2024 1:40 PM EDT Office Visit SEP Neurology [facility] [address] [place] [address] [place] Lyndsay Lynn, DO [address] [place] [address] documented as of this encounter [...] urinary obstruction TAKE 1 TAB BY MOUTH NEEDED FOR ERECTILE DYSFUNCTION Reorder 12/28/2020 01/07/2021 documented as of this encounter Care Teams Senior Revenue Accountant Relationship Specialty Start Date End Date Michelle Garrido APRN PCP - General Nurse Practitioner 01/09/17 01/14/21 documented as of this encounter
--- OUTSIDE RECORDS SUMMARY | 2024-05-29 15:43 | XMS_ITS | Encounter Summary ---
Author Organization [place] [address] Care Team Providers Care Pro Shop Attendant Name Role Phone Kirstin Steffanie YOLI Primary Care Provider +1- [phone] Encounter Details Date Type Department Care Team (Late st Contact Info) Description 01/21/2021 Orders Only [facility] [address] [place] [phone] Kirstin SteffanieYOLI [address] [place] [address] Pure hypercholesterolemia (Primary Dx) Social History Tobacco Use Types [...] have Coronavirus / COVID-19? No / Unsure 01/20/2021 7:36 AM EDT documented as of this encounter [...] by mouth every evening. 30 Tab 2 01/21/2021 04/23/20 21 documented in this encounter Plan of Treatment Upcoming Encounters Date Type Department Care Team (Late st Contact Info) Description 06/28/2024 9:40 AM EST Clinical Support [facility] [address] [place] [phone] 11/19/2024 1:40 PM EDT Office Visit SEP Neurology [facility] [address] [facility] [place] [address] Lyndsay Brewer, DO [address] [place] [address] documented as of this encounter Goals Goal Patient Goal Type Associated Problems Recent Progress Patient-Stated? Author Blood Pressure < 140/90 Blood Pressure 134/84(2023 1:16 PM EST) No Yana Choi RMA Eat better, exercise, reach an ideal body weight General No Yana Choi RMA Stay Tobacco Free Lifestyle No Yana Choi RMJane documented as of this encounter Visit Diagnoses Diagnosis Pure hypercholesterolemia- Primary documented in this encounter Care Teams Pro Shop Attendant Relationship Specialty Start Date End Date Steffanie Fulton APRN [address] [place] [address] PCP - General Nurse Practitioner 01/15/21 05/02/21 documented as of this encounter
--- OUTSIDE RECORDS SUMMARY | 2024-05-29 15:43 | XMS_ITS | Encounter Summary ---
Author Organization [place] [address] Care Team Providers Care Park Interpretive Ranger Name Role Phone Steffanie Fulton APRN Primary Care Provider +1- [phone] Encounter Details Date Type Department Care Team (Latest Contact Info) Description 03/12/2021 10:30 AM EDT Clinical Support [facility] [address] [place] [place] [address] Katie Lutz RMA Suspected COVID-19 virus infection (Primary Dx) Social History Tobacco Use Types [...] EST Clinical Support [facility] [address] [place] [phone] 11/19/2024 1:40 PM EDT Office Visit SEP Neurology [facility] [address] [place] [address] Lyndsay Brewer DO [address] [place] [address] documented as of this encounter Goals Goal [...] Diagnosis Comments POCT JOSIE SARS ANTIGEN Routine 03/12/2021 11:31 AM EDT Suspected COVID-19 virus infection documented in this encounter Results * POCT JOSIE SARS ANTIGEN (03/12/2021 11:31 AM EDT) SARS Antigen SEP OFFICE Lot Number SEP OFFICE Expiration Date SEP OFFICE SeriAl # SEP OFFICE Control Line SEP OFFICE 03/12/2021 11:3 1 AM EDT us Ligia Wiley MD POINT OF CARE TEST ORDERABLES Final Result SEP OFFICE documented in this encounter Visit Diagnoses Diagnosis Suspected COVID-19 virus infection- Primary documented in this encounter Care Teams Park Interpretive Ranger Relationship Specialty Start Date End Date Steffanie Fulton APRN [address] [place] [address] PCP - General Nurse Practitioner 01/15/21 05/02/21 documented as of this encounter
--- OUTSIDE RECORDS SUMMARY | 2024-05-29 15:43 | XMS_ITS | Encounter Summary ---
Author Organization [place] [address] Care Team Providers Care Music Video Director Name Role Phone KirstinSteffanie YOLI Primary Care Provider +1- [phone] Reason for Visit * Reason Comments Medication Refill Encounter Details Date Type Department Care Team (Late st Contact Info) Description 01/19/2021 Refill [facility] [address] [place] [address] Michelle Garrido APRN Medication Refill [...] PUFFS EVERY 4 HOURS NEEDED FOR WHEEZING. 54 Inhaler 01/20/2021 03/03/2021 documented in this encounter Plan of Treatment Upcoming Encounters Date Type Department Care Team (Late st Contact Info) Description 06/28/2024 9:40 AM EST Clinical Support [facility] [address] [place] [phone] 11/19/2024 1:40 PM EDT Office Visit SEP Neurology [facility] [address] [facility] [place] [phone] Lyndsay Brewer, DO [address] [place] [address] documented as of this encounter [...] PUFFS EVERY 4 HOURS NEEDED FOR WHEEZING. 09/14/2020 01/20/2021 documented as of this encounter Care Teams Music Video Director Relationship Specialty Start Date End Date Steffanie Fulton APRN [address] [place] [address] PCP - General Nurse Practitioner 01/15/21 05/02/21 documented as of this encounter
--- OUTSIDE RECORDS SUMMARY | 2024-05-29 15:43 | XMS_ITS | Encounter Summary ---
Author [place] [address] Care Team Providers Care Product Support Rep Name Role Phone Michelle Garrido APRN Primary Care Provider Unava ilable Reason for Visit * Reason Comments Follow-up on colestid. Does go od on it. Diarrhea still has 8-10x BM a day. Encounter Details Date Type Department Care Team (Late Contact Info) Description 12/09/2020 1:00 PM EDT Office Visit [facility] G[facility] [address] [facility] [address] [place] [address] Michael Mckeon MD [address] [place], [place] [id number] Irritable bowel syndrome with diarrhea (Primary Dx); Bile salt-induced diarrhea Social History Tobacco Use Types Packs/Day Years [...] Sign Reading Time Taken Comments Blood Pressure 126/82 12/09/2020 12:55 PM EDT Pulse 76 12/09/2020 12:55 PM EDT Temperature - - Respiratory Rate - - Oxygen Saturation - - Inhaled Oxygen Concentration - - Weight 95.4 kg (210 lb 6.4 oz) 12/09/2020 12:55 PM EDT Height 170.2 cm (5' 7 ) 12/09/2020 12:55 PM EDT Body Mass Index 32.95 12/09/2020 12:55 PM EDT documented in this encounter Functional [...] Entry Date Author No 10/07/2020 8:08 AM ADITYAT Jane Garrido MA documented in this encounter Ordered Prescriptions Prescription Sig Dispense Quantity Refills Last Filled Start Date End Date colestipoL (COLESTID) 1 gram Oral TabletIndications:I rritable bowel syndrome with diarrhea,Bile salt-induced diarrhea Take 2 Tabs by mouth 2 times daily. 120 Tab 11 12/09/2020 06/28/2021 documented in this encounter Progress Notes * Michael Mckeon MD - 12/09/2020 1:[address] [facility] Out[facility] Followup Note 12/09/2020 Reason for visit: IBS with diarrhea Subjective: 55-year-old gentleman with with IBS with diarrhea returning for follow-up. We started him on Colestid in July of this year and he reports significant improvement after starting it. His abdominal cramps have resolved and his diarrhea has also significantly improved. He used to have up to 20 watery bowel movements per day but he reports that his stools have more formed to it and are not watery anymore and he does not have the same urgency anymore neither. However he continues to have 8-10 bowel movements in the morning when he first wakes up and then another 8-10 bowel movements throughout the day. He denies any nocturnal symptoms. He denies any fecal incontinence. Allergies: Allergies Allergen Reactions ??? Abilify [Aripiprazole] [...] ??? Pneumonia ??? Pneumothorax Past Surgical History: Past Surgical History: [...] REVISION-ANTERIOR ; Surgeon: Augie Ramires MD; Location: [facility]; Service: Orthopedics ??? KNEE SURGERY LEFT ACL RECONSTRUCTION ??? KNEE SURGERY LEFT ARTHROSCOPIES IRRAGATION X 7 FOR INFECTION ??? KNEE SURGERY RIGHT ARTHROSCOPIC MENICUS REPAIR ??? SHOULDER ARTHROSCOPY Right 11/29/2019 RIGHT SHOULDER ARTHROSCOPIC ROTATOR CUFF REPAIR DECOMPRESSION ACROMIOPLASTY, ACROMIOCLAVICULAR JOINT EXCISION; Surgeon: Kenny Loja MD; Location: [facility]; Service: Orthopedics ??? TOTAL HIP ARTHROPLASTY Left 2009 Family History: [...] Grandfather ??? Cancer Paternal Grandmother Social History: Social History Tobacco Use ??? Smoking status: Never Smoker ??? Smokeless tobacco: Current User Types: Snuff Substance Use Topics ??? Alcohol use: No ??? 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 Respiratory: Negative for cough and shortness of breath. Cardiovascular: Negative for chest pain and palpitations. Skin: Negative for itching and rash. Physical Examination BP 126/82 (BP Location: Left arm, Patient Position: Sitting) Pulse 76 Ht 5' 7 (1.702 m) Wt 210 lb 6.4 oz (95.4 kg) BMI 32.95 kg/m?? Physical Exam Constitutional: He is oriented to person, place, and time and well-developed, well-nourished, and in no distress. HENT: Head: Normocephalic and atraumatic. Mouth/Throat: Oropharynx is clear and moist. Eyes: Conjunctivae are normal. No scleral icterus. Cardiovascular: Normal rate. Pulmonary/Chest: Effort normal. Abdominal: Soft. Bowel sounds are normal. He exhibits no distension. There is no abdominal tenderness. Neurological: He is alert and oriented to person, place, and time. Skin: Skin is warm and dry. Psychiatric: Mood and affect normal. Laboratory: Lab Results Component Value Date/Time WBC 5.6 06/17/2020 09:14 AM WBC 12.6 (H) 09/04/2019 03:14 AM WBC 7.0 08/06/2019 10:03 AM HGB 14.4 06/17/2020 09:14 AM HGB 17.2 (H) 09/04/2019 03:14 AM HGB 14.7 08/06/2019 10:03 AM HCT 42.5 06/17/2020 09:14 AM HCT 50.8 09/04/2019 03:14 AM HCT 44.9 08/06/2019 10:03 AM MCV 97.0 06/17/2020 09:14 AM MCV 95.8 09/04/2019 03:14 AM MCV 96.4 08/06/2019 10:03 AM PLT 177 06/17/2020 09:14 AM PLT 210 09/04/2019 03:14 AM PLT 183 08/06/2019 10:03 AM Lab Results Component Value Date/Time ALT 26 08/06/2019 10:03 AM ALT 30 04/15/2019 02:53 PM ALT 23 10/27/2017 10:22 AM AST 31 08/06/2019 10:03 AM AST 26 04/15/2019 02:53 PM AST 28 10/27/2017 10:22 AM ALKPHOS 94 08/06/2019 10:03 AM ALKPHOS 91 04/15/2019 02:53 PM ALKPHOS 78 10/27/2017 10:22 AM PROT 7.3 08/06/2019 10:03 AM PROT 7.0 04/15/2019 02:53 PM PROT 6.9 10/27/2017 10:22 AM Lab Results Component Value Date/Time CREATININE 1.01 06/17/2020 09:14 AM CREATININE 1.09 11/25/2019 05:11 PM CREATININE 1.84 (H) 09/04/2019 03:14 AM BUN 14 06/17/2020 09:14 AM BUN 16 11/25/2019 05:11 PM BUN 39 (H) 09/04/2019 03:14 AM NA 141 06/17/2020 09:14 AM NA 139 11/25/2019 05:11 PM NA 138 09/04/2019 03:14 AM K 4.3 06/17/2020 09:14 AM K 4.4 11/25/2019 05:11 PM K 4.3 09/04/2019 03:14 AM CL 107 06/17/2020 09:14 AM CL 101 11/25/2019 05:11 PM CL 100 09/04/2019 03:14 AM CO2 25 06/17/2020 09:14 AM CO2 27 11/25/2019 05:11 PM CO2 19 (L) 09/04/2019 03:14 AM Lab Results Component Value Date INR 0.91 07/17/2017 ASSESSMENT Irritable bowel syndrome with diarrhea Bile salt-induced diarrhea - colestipoL (COLESTID) 1 gram Oral Tablet; Take 2 Tabs by mouth 2 times daily. He has done significantly better on Colestid 1g twice daily but continues to have multiple bowel movements per day sometimes up to 20/day and therefore he feels that there is still room for improvement. I asked him to increase his Colestid to 2 g twice daily and monitor for symptoms. If he developsconstipation then we can decrease it to 3 g/day. Return in about 1 year (around 12/09/2021). Michael Herr MD [address] [facility] [phone] documented in this encounter Miscellaneous Notes * Patient Instructions - Anushka Jean LPN - 12/09/2020 1:00 PM EDT You may be contacted by [...] Clinical Support [facility] [address] [place] [address] [place] [phone] 11/19/2024 1:40 PM EDT Office Visit SEP Neurology [facility] [address] [place] [address] Lyndsay Brewer, DO [address] [place] [address] documented as of this encounter [...] syndrome with diarrhea- Primary Irritable bowel syndrome 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 Cancelled by 11/09/2020 12/09/2020 documented as of this encounter Care Teams Product Support Rep Relationship Specialty Start Date End Date Michelle Garrido APRN PCP - General Nurse Practitioner 01/09/17 01/14/21 documented as of this encounter
--- OUTSIDE RECORDS SUMMARY | 2024-05-29 15:43 | XMS_ITS | Encounter Summary ---
Author Organization [place] [address] Care Team Providers Care Ad Clerk Name Role Phone Steffanie Fulton APRN Primary Care Provider +1- [phone] Reason for Visit * Reason Comments Foot Problem b/l foot pain across top and bootom of ball of foot * Consultation (Routine) - Closed Specialty Diagnoses / Procedures Referred By Gus kunz Referred To Contact Podiatry Diagnoses Bilateral foot pain Steffanie Fulton APRN [address] [place] [address] Phone: tel: fax: Jose Maya DPM Referral ID Status Reason Start Date Expiration Date Visits Re quested Visits Authorized [id number] Closed 01/15/2021 01/15/2022 99 99 Encounter Details Date Type Department Care Team (Late st Contact Info) Description 02/04/2021 10:30 AM EDT Office Visit [facility] Podiatry [place] [address] [place] [phone] Arvin Walton DPM [address] [place] [address] Metatarsalgia of both feet (Primary Dx); Osteoarthritis of left ankle and foot; Osteoarthritis of right ankle and foot; Foot pain, left; Foot pain, right; Metatarsus adductus of both feet Social History Tobacco Use [...] Pressure - - Pulse - - Temperature 36.8 ??C (98.3 ??F) 02/04/2021 10:20 AM E DT Respiratory Rate - - Oxygen Saturation - - Inhaled Oxygen Concentration - - Weight 95.3 kg (210 lb) 02/04/2021 10:20 AM EDT Height 170.2 cm (5' 7 ) 02/04/2021 10:20 AM EDT Body Mass Index 32.89 02/04/2021 10:20 AM EDT documented in this encounter Functional [...] documented in this encounter Progress Notes * Avrin Walton DPM - 02/04/2021 10:30 AM EDT [facility] Podiatric Surgery Outpatient Progress Note Name: Zuhair Whitlock Primary Care Physician: Steffanie Fulton APRN Chief Complaint: Chief Complaint Patient presents with ??? Foot Problem b/l foot pain across top and bootom of ball of foot History of Presenting Illness: Zuhair Whitlock is a(n) 55 y.o. male who presents to the office for a painful b/l ball of the foot which R=L. Patient notes that this has been going on for last several . Since the onset of patient's pain it has remained . Patient describes their pain as being sore and aching especially at the end of the day. Long periods of weightbearing and increased levels of activity exacerbate patient's pain. Patient has tried nsaids. Patient denies trauma to the area. Patient wishes to be evaluated and treated today for their ailment(s). No other pedal complaints at this time. Referral is appreciated. Medications: Outpatient Medications Marked as Taking for the 02/04/21 encounter (Office Visit) with Arvin Walton DPM Medication Sig Dispense Refill ??? [DISCONTINUED] ADVAIR DISKUS 500-50 mcg/dose Inhl Disk with Device TAKE 1 PUFF BY MOUTH TWICE ADAY 180 Each 1 ??? albuterol (PROVENTIL) 2.5 mg /3 mL (0.083 %) Inhl Solution for Nebulization Take 3 mL by nebulization every 4 hours as needed for Wheezing. 180 mL 1 ??? albuterol (VENTOLIN HFA) 90 mcg/actuation Inhl HFA Aerosol Inhaler INHALE 1 TO 2 PUFFS EVERY 4 HOURS NEEDED FOR WHEEZING. 54 Inhaler 0 ??? betamethasone dipropionate (DIPROLENE) 0.05 % Top Ointment APPLY TO AFFECTED AREA EVERY DAY 15 g 2 ??? colestipoL (COLESTID) 1 gram Oral Tablet Take 2 Tabs by mouth 2 times daily. 120 Tab 11 ??? diclofenac (VOLTAREN) 1 % Top Gel Apply 2 g topically 4 times daily. 100 g 1 ??? fluticasone propionate (FLONASE) 50 mcg/actuation Nasl Organ, Suspension 1 Organ by Nasal routedaily. 1 Bottle 2 ??? hydroCHLOROthiazide (MICROZIDE) 12.5 mg Oral Capsule TAKE 1 CAPSULE BY MOUTH EVERY DAY 30 Cap 5 ??? losartan (COZAAR) 50 mg Oral Tablet TAKE 1 TABLET BY MOUTH EVERY DAY 30 Tab 5 ??? meloxicam (MOBIC) 15 mg Oral Tablet Take 1 Tab by mouth daily. 30 Tab 2 ??? montelukast (SINGULAIR) 10 mg Oral Tablet TAKE 1 TABLET BY MOUTH EVERY DAY AT NIGHT 90 Tab 0 ??? Nebulizer Accessories (ALL FLOW 4000 KIT) [facility] Formulary equivalent 1 Each 0 ??? pravastatin [...] tizanidine HCl (TIZANIDINE ORAL) Take by mouth. Allergies Allergen Reactions ??? Abilify [Aripiprazole] Other [...] REVISION-ANTERIOR ; Surgeon: Augie Ramires MD; Location: [facility]; Service: Orthopedics ??? KNEE SURGERY LEFT ACL RECONSTRUCTION ??? KNEE SURGERY LEFT ARTHROSCOPIES IRRAGATION X 7 FOR INFECTION ??? KNEE SURGERY RIGHT ARTHROSCOPIC MENICUS REPAIR ??? SHOULDER ARTHROSCOPY Right 11/29/2019 RIGHT SHOULDER ARTHROSCOPIC ROTATOR CUFF REPAIR DECOMPRESSION ACROMIOPLASTY, ACROMIOCLAVICULAR JOINT EXCISION; Surgeon: Kenny Loja MD; Location: [facility]; Service: Orthopedics ??? TOTAL HIP ARTHROPLASTY [...] Social Determinants of Health Financial Resource Strain: ??? Difficulty of Paying Living Expenses: Food Insecurity: ??? Worried About Running Out of Food in the Last Year: ??? Ran Out of Food in the Last Year: Transportation Needs: ??? Lack of Transportation (Medical): ??? Lack of Transportation (Non-Medical): Physical Activity: ??? Days of Exercise per Week: ??? Minutes of Exercise per Session: Stress: ??? Feeling of Stress : Social Connections: ??? Frequency of Communication with Friends and Family: ??? Frequency of Social Gatherings with Friends and Family: ??? Attends Orthodoxy Services: ??? Active Member of Clubs or Organizations: ??? Attends Club or Organization Meetings: ??? Marital Status: Intimate Partner Violence: ??? Fear of Current or Ex-Partner: ??? Emotionally Abused: ??? Physically Abused: ??? Sexually Abused: Review of Systems: The following systems were [...] Mood/affect appropriate Physical Examination: Vital Signs: Temp 98.3 ??F (36.8 ??C) (Forehead) Ht 5' 7 (1.702 m) Wt 210 lb (95.3 kg) BMI 32.89 kg/m? General: Zuhair appears in no acute [...] seconds to digits 1-5 bilateral. Edema is b/l forefoot. Calor is absent. Neurologic Sensation intact to light touch and 5.07/10g [place] monofilament bilateral. Dermatologic Integument is dry, supple bilateral. Ecchymosis is absent. Erythema is absent. No palpable subcutaneous masses bilateral foot. Musculoskeletal Pain with palpation noted to met heads 2-5 b/l, - lachmann test, - richi's sign b/l. +/- piano bennett sign TMTJs 2, 3 b/l. Muscle strength is 5/5 all LE groups bilateral. Ankle ROM decreased knee extended and flexed secondary to Achilles contracture. STJ, MTJ ROM reduced and pain free bilateral. Gait is antalgic. Met adductus b/l. Assessment: Zuhair Whitlock was seen today for Chief Complaint Patient presents with ??? Foot Problem b/l foot pain across top and bootom of ball of foot . Zuhair was seen today for foot problem. 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 I discussed clinical findings with patient. We discussed the possible etiologies and pathogenesis of the patient???s presenting symptoms. - I discussed x-ray/MRI findings with the patient. - We discussed conservative treatment options such as taping/strapping, orthotic devices, physical therapy, NSAIDs and steroid therapy, cortisone injection and surgical treatment options. - Patient was educated on rest, icing, compression and elevation therapy - Stretching regiment to loosen up posterior muscle groups. - Patient is to remain WBAT in supportive shoe gear. Fitted with metatarsal pads. - Patient to continue Mobic as prescribed by another physician. Patient was advised that if any problems or complications arise related to the medication that they are to discontinue the use of the medication immediately and obtain appropriate medical care at the nearest emergency room. Patient voiced their understanding. - All of the patient's questions, comments and concerns were addressed. Patient is agreeable to plan. Arvin Walton DPM 02/08/2021 documented in this encounter Plan of Treatment Upcoming Encounters Date Type Department Care Team (Late st Contact Info) Description 06/28/2024 9:40 AM EST Clinical Support [facility] 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 [address] PCP - General Nurse Practitioner 01/15/21 05/02/21 documented as of this encounter
--- OUTSIDE RECORDS SUMMARY | 2024-05-29 15:43 | XMS_ITS | Encounter Summary ---
Author Organization [place] [address] Care Team Providers Care Earth Mover Name Role Phone Steffanie Fulton APRN Primary Care Provider +1- [phone] Reason for Visit * Reason Onset Date Comments Prior Authorization 01/18/2021 cialis 5mg Encounter Details Date Type Department Care Team ([facility] Contact Info) Description 01/18/2021 Telephone [facility] [address] [place] [address] Steffanie Fulton APRN [address] [place], [place] [phone] Prior Authorization (cialis 5mg) Social History Tobacco Use Types Packs/Day Years [...] EDJane Guzman MA documented in this encounter Miscellaneous Notes * Telephone Encounter - Farzana Garrido MA - 01/20/2021 10:02 AM EDT Called pharmacy and they said it was going through now and will get it ready for him. Pt informed. * Telephone Encounter - Lucy Caceres - 01/20/2021 9:57 AM EDT Pt calling back in regards to this, states he checked with the pharmacy and they advised Pt they donot have this still. * Telephone Encounter - Farzana Garrido MA - 01/18/2021 10:04 AM EDT PA approved via phone call to insurance. Ref# [id number] 10/20/20-01/18/22 Pt informed. documented in this encounter Plan of Treatment Upcoming Encounters Date Type Department Care Team (Late st Contact Info) Description 06/28/2024 9:40 AM EST Clinical Support [facility] [address] [phone] 11/19/2024 1:40 PM EDT Office Visit SEP Neurology [facility] [address] [place] [phone] Lyndsay Brewer DO [address] [facility] [address] [place] [address] documented as of [...] on filedocumented in this encounter Care Teams Earth Mover Relationship Specialty Start Date End Date Steffanie Fulton APRN [address] [phone] PCP - General Nurse Practitioner 01/15/21 05/02/21 documented as of this encounter
--- OUTSIDE RECORDS SUMMARY | 2024-05-29 15:43 | XMS_ITS | Encounter Summary ---
Author Organization [place] [address] Care Team Providers Care Percussion Instructor Name Role Phone Steffanie Fulton APRN Primary Care Provider +1- [phone] Reason for Referral * EMG (Routine) - Closed Specialty Diagnoses / Procedures Referred By Contsathish t Referred To Contact Electromyography Diagnoses Pain in both lower extremities Procedures EMG Steffanie Fulton APRN [address] [place] [address] Phone: tel: fax: [facility] EMG [address] [facility] [address], [place] [address] Phone: tel: fax: Referral ID Status Reason Start Date Expiration Date Visits Re quested Visits Authorized [id number] Closed 02/15/2021 02/15/2022 1 1 Reason for Visit * Reason Onset Date Comments Other 02/15/2021 Encounter Details Date Type Department Care Team (Late st Contact Info) Description 02/15/2021 Telephone [facility] [address] [phone] Steffanie Fulton APRN [address] [place] [address] Other Social History Tobacco Use Types Packs/Day Years [...] encounter Miscellaneous Notes * Telephone Encounter - Steffanie Fulton APRN - 02/15/2021 2:58 PM EDT Updated * Telephone Encounter - [place] Green - 02/15/2021 8:[address] [facility] pretest called and said that the patient EMG order needs to be changed to include bilateral feet per the patient and provider notes documented in this encounter Plan of Treatment Upcoming Encounters Date Type Department Care Team (Late st Contact Info) Description 06/28/2024 9:40 AM EST Clinical Support [facility] [address] [facility] [phone] 11/19/2024 1:40 PM EDT Office Visit SEP Neurology [facility] [address] [place] [address] Lyndsay Brewer DO [address] [place] [address] Scheduled Orders Name Type Priority Associated Diagnoses Orde r Schedule EMG Neurology Routine Pain in both lower extremities 1 Occurrences starting 02/15/2021 until 02/15/2022 documented as of this encounter Goals Goal Patient Goal Type Associated Problems Recent Progress Patient-Stated? Author Blood Pressure < 140/90 Blood Pressure 134/84(2023 1:16 PM EST) No Yana Choi RMA Eat better, exercise, reach an ideal body weight General No Yana Choi RMA Stay Tobacco Free Lifestyle No Yana Choi RMA documented as of this encounter Visit Diagnoses Diagnosis Pain in both lower extremities- Primary documented in this encounter Care Teams Percussion Instructor Relationship Specialty Start Date End Date Steffanie Fulton APRN [address] [place] [address] PCP - General Nurse Practitioner 01/15/21 05/02/21 documented as of this encounter
--- OUTSIDE RECORDS SUMMARY | 2024-05-29 15:43 | XMS_ITS | Encounter Summary ---
Author Organization [place] [address] Care Team Providers Care Curriculum Manager Name Role Phone Steffanie Fulton APRN Primary Care Provider [phone] Reason for Referral * EMG (Routine) - Closed Specialty Diagnoses / Procedures Referred By Contact Referred To Contact Physical Medicine and Rehabilitation / Electromyography Diagnoses Paresthesia of both hands Procedures EMG Steffanie Fulton APRN [address] [place] [address] Phone: tel: fax: Florencio Vanegas MD Phone: tel:[phone] fax:[phone] Referral ID Status Reason Start Date Expiration Date Visits Re quested Visits Authorized [id number] Closed 02/09/2021 02/09/2022 1 1 Reason for Visit * Reason Comments Mouth Lesions Encounter Details Date Type Department Care Team (Late st Contact Info) Description 02/09/2021 8:30 AM EDT Office Visit [facility] [address] [place] [phone] Steffanie Fulton APRN [address] [place] [phone] Essential hypertension (Primary Dx); Cold sore; 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 4 Tablet 02/09/2021 3 losartan (COZAAR) 50 mg Oral TabletIndications: Essential hypertension Take 1 Tablet by mouth 2 times daily. 60 Tablet 3 02/09/2021 1 documented in this encounter Progress Notes * Steffanie Fulton APRN - 02/09/2021 8:30 AM EDT Vitals: 02/09/21 0828 BP: (!) 164/100 Pulse: 81 Temp: 98.1 ??F (36.7 ??C) TempSrc: Temporal SpO2: 99% Weight: 215 lb (97.5 kg) Height: 5' 7 (1.702 m) SUBJECTIVE: Chief Complaint Patient presents with ??? Mouth Lesions HPI: Cold sore-reports ? Cold sore to bottom lip, hx of but hasn't had for years, applying Carmax with minimal relief Bilateral hand numbness/pins and needles-symptoms present for months, worse when arms bent, has some neck pain, no extremity weakness Recently saw wet cleaner machine, bilateral foot pain is better BP elevated today, taking Losartan 50 mg po daily Review of Systems Constitutional: Negative. HENT: Negative. Respiratory: Negative. Cardiovascular: Negative. Gastrointestinal: Negative. Genitourinary: Negative. Musculoskeletal: Positive for neck pain. Neurological: Positive for numbness. Hematological: Negative. Psychiatric/Behavioral: Negative. All other systems reviewed and are negative. OBJECTIVE: Physical Exam Constitutional: Appearance: Normal appearance. Cardiovascular: Rate and Rhythm: Normal rate and regular rhythm. Pulses: Normal pulses. Heart sounds: Normal heart sounds. Pulmonary: Effort: Pulmonary effort is normal. Breath sounds: Normal breath sounds. Skin: Capillary Refill: Capillary refill takes less than 2 seconds. Neurological: General: No focal deficit present. Mental Status: He is alert and oriented to person, place, and time. Sensory: No sensory deficit. Psychiatric: Mood and Affect: Mood normal. Behavior: Behavior normal. Thought Content: Thought content normal. Judgment: Judgment normal. Assessment Diagnoses and all orders for this visit: Essential hypertension - losartan (COZAAR) 50 mg Oral Tablet; Take 1 Tablet by mouth 2 times daily. Dispense: 60 Tablet; Refill: 3 - CBC WITH DIFF; Future - COMPREHENSIVE METABOLIC PANEL; Future - LIPID PANEL REFLEX; Future Cold sore - valACYclovir (VALTREX) 1 gram Oral Tablet; Take 2 Tablets by mouth 2 times daily for 1 day. 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 EPHRAIM (generalized anxiety disorder) - TSH REFLEX; Future increase losartan Return for bp check in 2 weeks documented in this encounter Plan of Treatment Upcoming Encounters Date Type Department Care Team (Late st Contact Info) Description 06/28/2024 9:40 AM EST Clinical Support [facility] [address] [place] [phone] 11/19/2024 1:40 PM EDT Office Visit [facility] Neurology [facility] [address] [place] [address] Lyndsay Brewer, DO [address] [place] [address] Scheduled Orders Name Type Priority Associated Diagnoses Orde r Schedule EMG Neurology Routine Paresthesia of both hands 1 Occurrences starting 02/09/2021 until 02/09/2022 XR CERVICAL SPINE AP LATERAL ODONTOID AND OBLIQUE Imaging Routine Paresthesia of both hands 1 Occurrences starting 02/09/2021 until 02/09/2022 documented as of this encounter Goals Goal Patient Goal Type Associated Problems Recent Progress Patient-Stated? Author Blood Pressure < 140/90 Blood Pressure 134/84(2023 1:16 PM EST) No Yana Choi RMA Eat better, exercise, reach an ideal body weight General No Yana Choi RMA Stay Tobacco Free Lifestyle No Yana Choi RMA documented as of this encounter Results * (ABNORMAL) LIPID PANEL REFLEX (05/21/2021 1:12 PM EST) Cholesterol 209(H) <200 mg/dL 05/21/2021 3:56 PM EST [facility] [employer] Comment: < 200 ?Desirable 200 - 239 ? Borderline High >= 240 ?High Triglyceride 98 <150 mg/dL 05/21/2021 3:56 PM EST [employer] Comment: < 150 ? Normal 150 - 199 ?Borderline High 200 - 499 ?High ??>= 500 ? Very High HDL 39(L) >=40 mg/dL 05/21/2021 3:56 PM EST [employer] Comment: ??> 60 ?Optimal 40 - 60 ?Acceptable ?? < 40 ?Low LDL Calculated 152(H) <100 mg/dL 05/21/2021 3:56 PM EST [facility] Non-HDL-C Calculated 170(H) <=129 mg/dL 05/21/2021 3:56 PM EST [facility] Comment: <130 ?Desirable 130-159 Above Desirable 160-189 Borderline High 190-219 High >= 220 ??Very High Fasting Specimen? Yes None 021 3:56 PM EST [facility] Blood VENOUS BLOOD / Unknown Venipuncture / Unknown 05/21/2021 1:12 PM EST 05/21/2021 1:12 PM EST [facility] Final Result Performing Organization Address [facility] de Phone Number [facility] [employer] , [place] [address] [facility] [address] [place] [address] * TSH REFLEX (05/21/2021 1:12 PM EST) Pathologist [facility] TSH Reflex 1.830 0.270 - 4.200 mcIU/mL 05/21/2021 3:56 PM EST [facility] Blood VENOUS BLOOD / Unknown Venipuncture / Unknown 05/21/2021 1:12 PM EST 05/21/2021 1:12 PM EST Narrative [facility] - 05/21/2021 3:56 PM EST Ingestion of john doses of biotin (>5 mg/day) taken within 8 hours of drawing blood sample can interfere with this immunoassay test. [facility] EQUAL OPPORTUNITY OFFICER CHEMISTRY ORDERABLES Final Result Performing Organization Address [facility] de Phone Number [facility] [address] , [place] [address] * (ABNORMAL) COMPREHENSIVE METABOLIC PANEL (05/21/2021 1:12 PM EST) Pathologist [facility] Sodium 142 136 - 145 mmol/L 05/21/2021 3:56 PM EST [facility] Potassium 5.4(H) 3.5 - 5.0 mmol/L 05/21/2021 3:56 PM EST [facility] Chloride 104 98 - 107 mmol/L 05/21/2021 3:56 PM EST [facility] Total CO2 29 22 - 29 mmol/L 05/21/2021 3:56 PM EST [facility] Anion Gap 9 7 - 16 mmol/L 05/21/2021 3:56 PM EST [facility] Calcium 10.1 8.6 - 10.4 mg/dL 05/21/2021 3:56 PM EST [facility] Glucose Lvl 104(H) 74 - 100 mg/dL 05/21/2021 3:56 PM EST [facility] BUN 21(H) 6 - 20 mg/dL 05/21/2021 [...] 3:56 PM EST [facility] ALT 21 <=41 U/L 05/21/2021 3:56 PM EST [facility] AST 17 <=40 U/L 05/21/2021 3:56 PM EST [facility] Alk Phos 112 40 - 129 U/L 05/21/2021 3:56 PM EST [facility] eGFR (CKD-EPIcr 2020) 70 >=60 mL/min/1.7 3 m2 05/21/2021 3:56 PM EST [facility] Comment:Estimated GFR was ca lculated using the CKD-EPIcr (2020) equation refit without race. The equation is recommended by the National Kidney Foundation - [place] [employer] Neph[employer] Task Force. Blood VENOUS BLOOD / Unknown Venipuncture / Unknown 05/21/2021 1:12 PM EST 05/21/2021 1:12 PM EST us Steffanie Gastright EQUAL OPPORTUNITY OFFICER CHEMISTRY ORDERABLES Final Result [facility] [address], [address] [place] [phone] [facility] [address] [place] [id number] * CBC WITH DIFF (05/21/2021 1:12 PM EST) WBC 6.6 3.7 - 10.3 x10(3)/mcL 05/21/2021 3:35 PM EST [facility] RBC 4.83 4.60 - 6.10 x10(6)/mcL 05/21/2021 3:35 PM EST [facility] Hgb 15.3 13.7 - 17.5 g/dL 05/21/2021 3:35 PM EST [facility] Hct 46.5 40.0 - 51.0 % 05/21/2021 3:35 PM EST [facility] MCV 96.3 80.0 - 100.0 fL 05/21/2021 3:35 PM EST [facility] MCH 31.7 26.0 - 34.0 pg 05/21/2021 3:35 PM EST [facility] MCHC 32.9 30.7 - 35.5 g/dL 05/21/2021 3:35 PM EST [facility] RDW 12.8 <=14.9 % 05/21/2021 3:35 PM EST [facility] Platelet 183 155 - 369 x10(3)/mcL 05/21/2021 3:35 PM EST [facility] MPV 10.3 8.8 - 12.5 fL 05/21/2021 3:35 PM EST [facility] Neut Percent 61.1 % 05/21/2021 3:35 PM EST [facility] Comment:Neutrophils equals s egs plus bands Imm Gran% 0.5 % 05/21/2021 3:35 PM EST [facility] Comment:Automated count of m etamyelocytes, myelocytes and promyelocytes. Lymph Percent 29.7 % 05/21/2021 3:35 PM EST [facility] Ashley Percent 6.7 % 05/21/2021 3:35 PM EST [facility] Eos Percent 1.5 % 05/21/2021 3:35 PM EST [facility] Baso Percent 0.5 % 05/21/2021 3:35 PM EST [facility] Neut # 4.1 1.6 - 6.1 x10(3)/[facility] 05/21/2021 3:35 PM EST [facility] Comment:Neutrophils equals s egs plus bands IMMGRAN# 0.0 0.0 - 0.1 x10(3)/mcL 05/21/2021 3:35 PM EST [facility] Comment:Automated count of m etamyelocytes, myelocytes and promyelocytes. An absolute IG <0.1 is reported as 0.0. Lymph # 2.0 1.2 - 3.9 x10(3)/[facility] 05/21/2021 3:35 PM EST [facility] Ashley # 0.4 0.3 - 0.9 x10(3)/mcL 05/21/2021 3:35 PM EST [facility] Eos# 0.1 0.0 - 0.5 x10(3)/mcL 05/21/2021 3:35 PM EST [facility] Baso # 0.0 0.0 - 0.1 x10(3)/[facility] 05/21/2021 3:35 PM EST [facility] Blood VENOUS BLOOD / Unknown Venipuncture / Unknown 05/21/2021 1:12 PM EST 05/21/2021 1:12 PM EST us Steffanie Gastright EQUAL OPPORTUNITY OFFICER HEMATOLOGY ORDERABLES Karina l Result [facility] [address] [facility] , [address] [place] [id number] * SYPHILIS SCREEN WITH REFLEX RPR QUANT (05/21/2021 1:12 PM EST) [facility] Trep Ab Index 0.10 <=0.99 Index Value 05/21/2021 4:09 PM EST [facility] [employer] Comment: < 1.00 - Non-Reactive ?? >=1.00 - Reactive NOTE: ??All reactive results will be reflexed to Quantitative Non-Treponemal(RPR)test. ?? Blood VENOUS BLOOD / Unknown Venipuncture / Unknown 05/21/2021 1:12 PM EST 05/21/2021 1:12 PM EST [facility] CHEMISTRY ORDERABLES Final Result Performing Organization Address [facility] de Phone Number [facility] [address] [place] [address] * VITAMIN B12/ FOLIC ACID (05/21/2021 1:12 PM EST) [facility] Vitamin B12 252 232-1,245 pg/mL 05/21/2021 4:03 PM EST [facility] Folate 10.10 >=4.50 ng/mL 05/21/2021 4:03 PM EST [facility] Blood VENOUS BLOOD / Unknown Venipuncture / Unknown 05/21/2021 1:12 PM EST 05/21/2021 1:12 PM EST Narrative [facility] - 05/21/2021 4:03 PM EST Ingestion of john doses of biotin (>5 mg/day) taken within 8 hours of drawing blood sample can interfere with this immunoassay test. [facility] Final Result Performing Organization Address [facility] de Phone Number [facility] [employer] [place] [address] [address] [place] [address] * VITAMIN D 25 HYDROXY (05/21/2021 1:12 PM EST) [facility] Vit D 25 OH 31.4 30.0 - 150.0 ng/mL 05/21/2021 4:03 PM EST [employer] [facility] Comment: Preferred: >= 30 ng/mL Insufficient: 21-29 ng/mL Deficient <= 20 ??ng/mL Possible Toxicity: >150 ng/mL Samples should not be taken from patients receiving therapy with high biotin doses (i.e. > 5 mg/day) until at least 8 hours following the last biotin administration. 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
--- OUTSIDE RECORDS SUMMARY | 2024-05-29 15:43 | XMS_ITS | Encounter Summary ---
Author Organization [place] [address] Care Team Providers Care It Consultant Name Role Phone Steffanie Fulton APRN Primary Care Provider [phone] Reason for Referral * Consultation (Routine) - Closed Specialty Diagnoses / Procedures Referred By Contac t Referred To Contact Podiatry Diagnoses Bilateral foot pain Steffanie Fulton APRN [address] [place] [address] Phone: tel: fax: Jose Maya DPM Referral ID Status Reason Start Date Expiration Date Visits Re quested Visits Authorized [id number] Closed 01/15/2021 01/15/2022 99 99 * EMG (Routine) - Closed Specialty Diagnoses / Procedures Referred By Contact Referred To Contact Physical Medicine and Rehabilitation / Electromyography Diagnoses Bilateral foot pain Numbness and tingling of both feet Procedures EMG Steffanie Fulton APRN [address] [place] [address] Phone: tel: fax: Florencio Vanegas MD Phone: tel:[phone] fax:[phone] Referral ID Status Reason Start Date Expiration Date Visits Re quested Visits Authorized [id number] Closed 01/15/2021 01/15/2022 1 1 Reason for Visit * Reason Comments Toe Pain Encounter Details Date Type Department Care Team (Late st Contact Info) Description 01/15/2021 2:45 PM EDT Office Visit [facility] [address] [place] [phone] Steffanie Fulton APRN [address] [place] [phone] Bilateral foot pain (Primary Dx); 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; Essential hypertension; Numbness and tingling of both feet; Localized osteoarthritis of hand, unspecified laterality; Screening for thyroid disorder Social History Tobacco Use Types Packs/Day Years [...] Reading Time Taken Comments Blood Pressure 130/70 01/15/2021 3:11 PM EDT Pulse 82 01/15/2021 3:11 PM EDT Temperature 37.1 ??C (98.8 ??F) 01/15/2021 3:11 PM ED T Respiratory Rate - - Oxygen Saturation 98% 01/15/2021 3:11 PM EDT Inhaled Oxygen Concentration - - Weight 97.5 kg (215 lb) 01/15/2021 3:11 PM EDT Height 170.2 cm (5' 7 ) 01/15/2021 3:11 PM EDT Body Mass Index 33.67 01/15/2021 3:11 PM EDT documented in this encounter Functional [...] Tab by mouth daily. 30 Tab 2 01/15/2021 diclofenac (VOLTAREN) 1 % Top GelIndications:Bilat eral foot pain,Localized osteoarthritis of hand, unspecified laterality Apply 2 g topically 4 times daily. 100 g 1 01/15/2021 2 documented in this encounter Progress Notes * Steffanie Fulton APRN - 01/15/2021 2:45 PM EDT Vitals: 01/15/21 1511 BP: 130/70 Pulse: 82 Temp: 98.8 ??F (37.1 ??C) TempSrc: Temporal SpO2: 98% Weight: 215 lb (97.5 kg) Height: 5' 7 (1.702 m) SUBJECTIVE: Chief Complaint Patient presents with ??? Toe Pain HPI: Pt presents to the office today with c/o bilateral foot pain, reports pain for months, denies injury, reports tingling, pins/needles sensation, no swelling, denies back pain Following with [facility] for chronic knee pain only does knees Has tried new shoe inserts with no relief Review of Systems Constitutional: Negative. HENT: Negative. Respiratory: Negative. Cardiovascular: Negative. Musculoskeletal: Positive for arthralgias. All other systems reviewed and are negative. OBJECTIVE: Physical Exam Constitutional: Appearance: Normal appearance. Cardiovascular: Rate and Rhythm: Normal rate and regular rhythm. Pulses: Normal pulses. Heart sounds: Normal heart sounds. Pulmonary: Effort: Pulmonary effort is normal. Breath sounds: Normal breath sounds. Musculoskeletal: Normal range of motion. Skin: General: Skin is warm and dry. Neurological: General: No focal deficit present. Mental Status: He is alert and oriented to person, place, and time. Assessment Diagnoses and all orders for this visit: Bilateral foot pain - EMG; Future - XR FOOT BILATERAL AP LATERAL AND OBLIQUE STANDING; Future - diclofenac (VOLTAREN) 1 % Top Gel; Apply 2 g topically 4 times daily. Dispense: 100 g; Refill: 1 - AMB REFERRAL TO PODIATRY - meloxicam (MOBIC) 15 mg Oral Tablet; Take 1 Tab by mouth daily. 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 Dispense: 100 g; Refill: 1 - meloxicam (MOBIC) 15 mg Oral Tablet; Take 1 Tab by mouth daily. Dispense: 30 Tab; Refill: 2 Screening for thyroid disorder - TSH REFLEX; Future documented in this encounter Plan of Treatment Upcoming Encounters Date Type Department Care Team (Late st Contact Info) Description 06/28/2024 9:40 AM EST Clinical Support [facility] [address] [place] [phone] 11/19/2024 1:40 PM EDT Office Visit [facility] [address] [place] [address] Lyndsay Brewer DO [address] [place] [address] Scheduled Referrals Name Type Priority [...] as of this encounter Results * (ABNORMAL) EMG (04/19/2021 1:01 PM EDT) Impressions [facility] - 04/19/2021 1:01 PM EDT Abnormal [...] -Board Certified Physical Medicine and Rehabilitation Narrative [facility] - 04/19/2021 1:01 PM EDT Nerve [...] Steffanie Fulton APRN NEUROLOGY ORDERABLES Final Result [facility] [address] [place], [place] [id number] * (ABNORMAL) COMPREHENSIVE METABOLIC PANEL (01/20/2021 9:52 AM EDT) Sodium 141 136 - 145 mmol/L 01/20/2021 6:22 PM EDT [facility] Potassium 4.2 3.5 - 5.0 mmol/L 01/20/2021 6:22 PM EDT [facility] Chloride 105 98 - 107 mmol/L 01/20/2021 6:22 PM EDT [facility] Total CO2 23 22 - 29 mmol/L 01/20/2021 6:22 PM EDT [facility] Anion Gap 13 7 - 16 mmol/L 01/20/2021 6:22 PM EDT [facility] Calcium 9.5 8.6 - 10.4 mg/dL 01/20/2021 6:22 PM EDT [facility] Glucose Lvl 106(H) 74 - 100 mg/dL 01/20/2021 6:22 PM EDT [facility] BUN 22(H) 6 - 20 mg/dL 01/20/2021 6:22 PM EDT [facility] Creatinine 0.97 0.67 - 1.30 mg/dL 01/20/2021 6:22 PM EDT [facility] Albumin 4.5 3.5 - 5.2 gm/dL 01/20/2021 6:22 PM EDT [facility] Total Protein 6.7 6.4 - 8.3 gm/dL 01/20/2021 6:22 PM EDT [facility] Bili Total 0.4 0.1 - 1.4 mg/dL 01/20/2021 6:22 PM EDT [facility] ALT 28 <=41 U/L 01/20/2021 6:22 PM EDT [facility] AST 36 <=40 U/L 01/20/2021 6:22 PM EDT [facility] Alk Phos 99 40 - 129 U/L 01/20/2021 6:22 PM EDT [facility] GFR Afr Am 103 >=60 mL/min/1.7 3 m2 01/20/2021 6:22 PM EDT [facility] GFR Non Afr Am 89 >=60 mL/min/1.7 3 m2 01/20/2021 6:22 PM EDT [facility] Comment: This estimated GFR was calculated using CKD-EPI equation which is modified based on ethnicity for Non Americans and Americans. Both results are reported since it is not always possible to determine the patient's ethnicity. This equation should only be used for individuals 18 and older. It has not been validated for use with the elderly (>70 years), women, or in some racial or ethnic subgroups, such as Hispanics. The equation will be less accurate in people with differences in nutritional status or muscle mass. Blood VENOUS BLOOD / Unknown Venipuncture / Unknown 01/20/2021 9:52 AM EDT 01/20/2021 9:52 AM EDT Steffanie Fulton CORPORATE VP ADVERTISING & ONLINE CHEMISTRY ORDERABLES Final Result [facility] [address] [facility] , [address] [place] [id number] [facility] [address] [place], [place] [id number] * (ABNORMAL) LIPID PANEL REFLEX (01/20/2021 9:52 AM EDT) Cholesterol 195 <200 mg/dL 01/20/2021 6:22 PM EDT [facility] Comment: < 200 ?Desirable 200 - 239 ? Borderline High >= 240 ?High Triglyceride 112 <150 mg/dL 01/20/2021 6:22 PM EDT [facility] Comment: < 150 ? Normal 150 - 199 ?Borderline High 200 - 499 ?High ??>= 500 ? Very High HDL 38(L) >=40 mg/dL 01/20/2021 6:22 PM EDT [facility] Comment: ??> 60 ?Optimal 40 - 60 ?Acceptable ?? < 40 ?Low LDL Calculated 135(H) <100 mg/dL 01/20/2021 6:22 PM EDT [facility] Non-HDL-C Calculated 157(H) <=129 mg/dL 01/20/2021 6:22 PM EDT [facility] Comment: <130 ?Desirable 130-159 Above Desirable 160-189 Borderline High 190-219 High >= 220 ??Very High Fasting Specimen? Yes None 021 6:22 PM EDT [facility] Blood VENOUS BLOOD / Unknown Venipuncture / Unknown 01/20/2021 9:52 AM EDT 01/20/2021 9:52 AM EDT Steffanie Gastright CORPORATE VP ADVERTISING & ONLINE CHEMISTRY ORDERABLES Final Result Performing Organization Address City/[facility]/ZIP Co de Phone Number [facility] [address] [facility] , [place] [address] [facility] [address] [place] [id number] * TSH REFLEX (01/20/2021 9:52 AM EDT) Pathologist [facility] TSH Reflex 1.730 0.270 - 4.200 mcIU/mL 01/20/2021 6:22 PM EDT [facility] Blood VENOUS BLOOD / Unknown Venipuncture / Unknown 01/20/2021 9:52 AM EDT 01/20/2021 9:52 AM EDT Narrative [facility] - 01/20/2021 6:22 PM EDT Ingestion of john doses of biotin (>5 mg/day) taken within 8 hours of drawing blood sample can interfere with this immunoassay test. Steffanie Fulton CORPORATE VP ADVERTISING & ONLINE CHEMISTRY ORDERABLES Final Result Performing Organization Address City/[facility]/ZIP Co de Phone Number [facility] [address] [facility] , [place] [address] * (ABNORMAL) CBC WITH DIFF (01/20/2021 9:52 AM EDT) WBC 4.8 3.7 - 10.3 x10(3)/mcL 01/20/2021 3:45 PM EDT [facility] RBC 4.55(L) 4.60 - 6.10 x10(6)/mcL 01/20/2021 3:45 PM EDT [facility] Hgb 14.2 13.7 - 17.5 g/dL 01/20/2021 3:45 PM EDT [facility] Hct 44.2 40.0 - 51.0 % 01/20/2021 3:45 PM EDT [facility] MCV 97.1 80.0 - 100.0 fL 01/20/2021 3:45 PM EDT [facility] MCH 31.2 26.0 - 34.0 pg 01/20/2021 3:45 PM EDT [facility] MCHC 32.1 30.7 - 35.5 g/dL 01/20/2021 3:45 PM EDT [facility] RDW 12.3 <=14.9 % 01/20/2021 3:45 PM EDT [facility] Platelet 160 155 - 369 x10(3)/mcL 01/20/2021 3:45 PM EDT [facility] MPV 10.9 8.8 - 12.5 fL 01/20/2021 3:45 PM EDT [facility] Neut Percent 58.8 % 01/20/2021 3:45 PM EDT [facility] Comment:Neutrophils equals s egs plus bands Imm Gran% 0.2 % 01/20/2021 3:45 PM EDT [facility] Comment:Automated count of m etamyelocytes, myelocytes and promyelocytes. Lymph Percent 26.9 % 01/20/2021 3:45 PM EDT [facility] Lyman Percent 10.1 % 01/20/2021 3:45 PM EDT [facility] Eos Percent 3.4 % 01/20/2021 3:45 PM EDT [facility] Baso Percent 0.6 % 01/20/2021 3:45 PM EDT [facility] Neut # 2.8 1.6 - 6.1 x10(3)/mcL 01/20/2021 3:45 PM EDT [facility] Comment:Neutrophils equals s egs plus bands IMMGRAN# 0.0 0.0 - 0.1 x10(3)/mcL 01/20/2021 3:45 PM EDT [facility] Comment:Automated count of m etamyelocytes, myelocytes and promyelocytes. An absolute IG <0.1 is reported as 0.0. Lymph # 1.3 1.2 - 3.9 x10(3)/mcL 01/20/2021 3:45 PM EDT [facility] Lyman # 0.5 0.3 - 0.9 x10(3)/mcL 01/20/2021 3:45 PM EDT [facility]; to (do) Eos# 0.2 0.0 - 0.5 x10(3)/mcL 01/20/2021 3:45 PM EDT [facility]; to (do) Baso # 0.0 0.0 - 0.1 x10(3)/mcL 01/20/2021 3:45 PM EDT [facility] Blood VENOUS BLOOD / Unknown Venipuncture / Unknown 01/20/2021 9:52 AM EDT 01/20/2021 9:52 AM EDT us Steffanie Gastright CORPORATE VP ADVERTISING & ONLINE HEMATOLOGY ORDERABLES Karina l Result [facility] [address] [facility] , [address] [place] [id number] * XR FOOT BILATERAL AP LATERAL AND OBLIQUE STANDING (01/20/2021 8:11 AM EDT) Anatomical Region Laterality Modality Foot Radiographic Pauly ging 01/20/2021 8:11 AM EDT Impressions 01/20/2021 8:21 AM EDT No acute bone or soft tissue abnormality. Bilateral hallux valgus and first MTP osteoarthritis. - Note: Radiology results need to be interpreted within a comprehensive clinical context. ??If you have questions about the radiology report, please contact the office of the ordering clinician. Narrative 01/20/2021 8:21 AM EDT XR FOOT BILATERAL AP LATERAL AND OBLIQUE STANDING, ??01/20/2021 8:11 AM CLINICAL HISTORY: ??M79.671-Pain in right [id number] M79.672-Pain in left [id number] COMPARISON: ??None. PROCEDURE COMMENTS: Bilateral imaging per the ordered protocol. FINDINGS: Right: Joint spaces are maintained. No erosions or periostitis. Hallux valgus and first MTP osteoarthritis. Left: Joint spaces are maintained. No erosions or periostitis. Hallux valgus an first MTP osteoarthritis. Postoperative changes in the tibia and fibula. Procedure Note Andrews Muro MD - 01/20/2021 XR FOOT BILATERAL AP LATERAL AND OBLIQUE STANDING, 01/20/2021 8:11 AM CLINICAL HISTORY: M79.671-Pain in right [id number]-CM M79.672-Pain in left [id number]-CM COMPARISON: None. PROCEDURE COMMENTS: Bilateral imaging per the ordered protocol. FINDINGS: Right: Joint spaces are maintained. No erosions or periostitis. Hallux valgus and first MTP osteoarthritis. Left: Joint spaces are maintained. No erosions or periostitis. Hallux valgus an first MTP osteoarthritis. Postoperative changes in thetibia and fibula. IMPRESSION: No acute bone or soft tissue abnormality. Bilateral hallux valgus and first MTP osteoarthritis. - Note: Radiology results need to be interpreted within a comprehensiveclinical context. If you have questions about the radiology report, please contactthe office of the ordering clinician. 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 DELETE-Therapy completed 01/15/2021 Saccharomyces boulardii (FLORASTOR) 250 mg Oral CapsuleIndications:Diar chico, unspecified type Take 1 Cap by mouth 2 times daily. DELETE-Therapy completed 07/15/2020 01/15/2021 Garlic Oral Tablet Take by mouth daily. DELETE-Therapy completed 01/15/2021 FIBER CHOICE ORAL Take by mouth. DELETE-Therapy completed 01/15/2021 celecoxib (CELEBREX) 200 mg Oral Capsule TAKE 1 CAPSULE BY MOUTH TWICE A DAY Cancelled by 08/17/2020 01/15/2021 documented as of this encounter Care Teams It Consultant Relationship Specialty Start Date End Date Steffanie Fulton APRN [address] [place] [address] PCP - General Nurse Practitioner 01/15/21 05/02/21 documented as of this encounter
--- OUTSIDE RECORDS SUMMARY | 2024-05-29 15:43 | XMS_ITS | Encounter Summary ---
Author [place] [address] Care Team Providers Care Reel Cutter Name Role Phone Steffanie Fulton APRN Primary Care Provider [phone] Reason for Visit * Reason Comments Cough Myalgias Encounter Details Date Type Department Care Team (Late st Contact Info) Description 03/23/2021 4:15 PM EDT [place] [facility] [place] [address] [place] [address] Brian Hickman MD Cough (Primary Dx); COVID-19 virus infection; COPD, moderate (HCC) Social History Tobacco Use [...] Sign Reading Time Taken Comments Blood Pressure 138/84 03/23/2021 4:22 PM EDT Pulse 94 03/23/2021 4:22 PM EDT Temperature 37.2 ??C (99 ??F) 03/23/2021 4:22 PM EDT Respiratory Rate - - Oxygen Saturation 98% 03/23/2021 4:22 PM EDT Inhaled Oxygen Concentration - - [...] Progress Notes * Brian Hickman MD - 03/23/2021 4:15 PM EDT Vitals: 03/23/21 1622 BP: 138/84 BP Location: Left arm Patient Position: Sitting Pulse: 94 Temp: 99 ??F (37.2 ??C) TempSrc: Temporal SpO2: 98% SUBJECTIVE: Chief Complaint Patient presents with ??? Cough ??? Myalgias HPI: COUGH: ?? complains of congestion, dry cough and myalgias for 2 days. ?? Associated symptoms include fatigue. ?? Symptom severity is described as Moderate and show no change. ?? What treatments have you tried at home? nothing ?? Are home treatments impacting your symptoms at all? n/a ?? Do you get recurrent or seasonal symptoms multiple times per year? no ?? Do you have any history of lung disease, asthma, or recurrent allergies? yes ?? The Patient does not smoke cigarettes. Pt states his son who lives with him tested positive for COVID today and several other members in the house are sick. He is not vaccinated for COVID. Review of Systems Constitutional: Positive for fatigue. Negative for fever. HENT: Positive for congestion. Respiratory: Positive for cough and shortness of breath. Cardiovascular: Negative for chest pain. Musculoskeletal: Positive for myalgias. Neurological: Positive for headaches. OBJECTIVE: Physical Exam Constitutional: Appearance: Normal appearance. Pulmonary: Effort: Pulmonary effort is normal. Breath sounds: Wheezing present. Neurological: General: No focal deficit present. Mental Status: He is alert and oriented to person, place, and time. Assessment Diagnoses and all orders for this visit: Cough - POCT JOSIE SARS ANTIGEN - AMB PATIENT TO RECEIVE COVID ANTIVIRAL MONOCLONAL ANTIBODY IN; Future COVID-19 virus infection COPD, moderate (HCC) (Chronic) Zuhair was seen today for cough and myalgias. Diagnoses and all orders for this visit: Cough - POCT JOSIE SARS ANTIGEN - AMB PATIENT TO RECEIVE COVID ANTIVIRAL MONOCLONAL ANTIBODY IN; Future COVID-19 virus infection COPD, moderate (HCC) This patient has been determined to have mild to moderate COVID-19 by testing and is a HIGH risk for hospital admission. They are a candidate for monoclonal antibody treatment under Emergency Use Authorization by the FDA and they have been referred to our pharmacy team for possible infusion. I explained the risks and benefits of this treatment by discussing the information in the Fact Sheet for Patients, Parents and Caregivers and / or by providing this information in the patient's After Visit Summary (AVS). Chief complaint: COVID-19 Infection Physical Exam: No distress Appears to have normal nutrition and hydration No evidence of dyspnea, cough or tachypnea Normal affect and behavior This was completed as a video visit to 1) reduce the risk of a possible COVID 19 positive patient spreading disease to other patients and medical personnel and /or 2) reduce the exposure risk to a patient with co-morbid conditions that increase COVID 19 infection complications / . documented in this encounter Miscellaneous Notes * Patient Instructions - Brian Hickman MD - 03/23/2021 4:15 PM EDT FACT SHEET FOR PATIENTS, PARENTS AND CAREGIVERS EMERGENCY USE AUTHORIZATION (EUA) OF BAMLANIVIMAB FOR CORONAVIRUS DISEASE 2019 (COVID-19) You are being given a medicine called bamlanivimab for the treatment of coronavirus disease 2019 (COVID- 19). This Fact Sheet contains information to help you understand the potential risks and potential benefits of taking bamlanivimab, which you may receive. Receiving bamlanivimab may benefit certain people with COVID-19. Read this Fact Sheet for information about bamlanivimab. Talk to your healthcare provider if you have questions. It is your choice to receive bamlanivimab or stop it at any time. What is COVID-19? COVID-19 is caused by a virus called a coronavirus. People can get COVID-19 through contact with another person who has the virus. COVID-19 illnesses have ranged from very mild (including some with no reported symptoms) to severe,including illness resulting in . While information so far suggests that most COVID-19 illness is mild, serious illness can happen and may cause some of your other medical conditions to become worse. People of all ages with severe, long-lasting (chronic) medical conditions like heart disease, lung disease, and diabetes, for example, seem to be at higher risk of being hospitalized for COVID-19. What are the symptoms of COVID-19? The symptoms of COVID-19 include fever, cough, and shortness of breath, which may appear 2 to 14 days after exposure. Serious illness including breathing problems can occur and may cause your other medical conditions to become worse. What is bamlanivimab? Bamlanivimab is an investigational medicine used for the treatment of COVID-19 in non-hospitalized adults and adolescents 12 years of age and older with mild to moderate symptoms who weigh 88 pounds (40 kg) or more, and who are at high risk for developing severe COVID-19 symptoms or the need for hospitalization. Bamlanivimab is investigational because it is still being studied. There is limited information known about the safety or effectiveness of using bamlanivimab to treat people with COVID-19. The FDA has authorized the emergency use of bamlanivimab for the treatment of COVID-19 under an Emergency Use Authorization (EUA). For more information on EUA, see the section ???What is an EmergencyUse Authorization (EUA)??? at the end of this Fact Sheet. What should I tell my healthcare provider before I receive bamlanivimab? Tell your healthcare provider about all of your medical conditions, including if you: ??? Have any allergies ??? Are or plan to become ??? Are or plan to breastfeed ??? Have any serious illnesses ??? Are taking any medications (prescription, stuq-eqh-ruruies, vitamins, and herbal products) How will I receive bamlanivimab? Bamlanivimab is given to you through a vein (intravenous or IV) for at least 1 hour. ??? You will receive one dose of bamlanivimab by IV infusion. What are the important possible side effects of bamlanivimab? Possible side effects of bamlanivimab are: ?? Allergic reactions. Allergic reactions can happen during and after infusion with bamlanivimab. Tell your healthcare provider right away if you get any of the following signs and symptoms of allergic reactions: fever, chills, nausea, headache, shortness of breath, low blood pressure, wheezing, swelling of your lips, face, or throat, rash including hives, itching, muscle aches, and dizziness. ?? The side effects of getting any medicine by vein may include brief pain, bleeding, bruising of the skin, soreness, swelling, and possible infection at the infusion site. These are not all the possible side effects of bamlanivimab. Not a lot of people have been given bamlanivimab. Serious and unexpected side effects may happen. Bamlanivimab is still being studied so it is possible that all of the risks are not known at this time. It is possible that bamlanivimab could interfere with your body's own ability to fight off a futureinfection of SARS-CoV-2. Similarly, bamlanivimab may reduce your body???s immune response to a vaccine for SARS-CoV-2. Specific studies have not been conducted to address these possible risks. Talk to your healthcare provider if you have any questions. What other treatment choices are there? Like bamlanivimab, FDA may allow for the emergency use of other medicines to treat people with COVID-19. Go to https://www.kqtkb15xgjuphidjecjspqlnrj.nih.gov/ for information on the emergency use of other medicines that are not approved by FDA to treat people with COVID- 19. Your healthcare providermay talk with you about clinical trials you may be eligible for. It is your choice to be treated or not to be treated with bamlanivimab. Should you decide not to receive bamlanivimab or stop it at any time, it will not change your standard medical care. What if I am or ? There is limited experience treating women or mothers with bamlanivimab. Fora mother and unborn baby, the benefit of receiving bamlanivimab may be greater than the risk from the treatment. If you are or , discuss your options and specific situation withyour healthcare provider. How do I report side effects with bamlanivimab? Tell your healthcare provider right away if you have any side effect that bothers you or does not go away. Report side effects to FDA MedWatch at www.fda.gov/medwatch, call 8-195-TDU-4998, or contactSymvato at 7-889-EzdjaN81 ( ). How can I learn more? Ask your healthcare provider ??? Visit www.[employer] Before Media ??? Visit https://www.zprzl22zqyyndryaopgyqsznah.nih.gov/ ??? Contact your local or state public health department What is an Emergency Use Authorization (EUA)? The [place] FDA has made bamlanivimab available under an emergency access mechanism called anEUA. The EUA is supported by a [place] of Health and Human Service (HHS) declaration that circumstances exist to justify the emergency use of drugs and biological products during the COVID-19 pandemic. Bamlanivimab has not undergone the same type of review as an FDA-approved or cleared product. The FDA may issue an EUA when certain criteria are met, which includes that there are no adequate, approved, and available alternatives. In addition, the FDA decision is based on the totality of scientificevidence available showing that it is reasonable to believe that the product meets certain criteriafor safety, performance, and labeling and may be effective in treatment of patients during the COVID-19 pandemic. All of these criteria must be met to allow for the product to be used in the treatment of patients during the COVID-19 pandemic. The EUA for bamlanivimab is in effect for the duration of the COVID-19 declaration justifying emergency use of these products, unless terminated or revoked (after which the product may no longer be used). Literature issued April 2020 [employer], [place] [address], [place] Copyright ?? 2020, [employer]. All rights reserved. [id number] FACT SHEET FOR PATIENTS, PARENTS AND CAREGIVERS EMERGENCY USE AUTHORIZATION (EUA) OF CASIRIVIMAB AND IMDEVIMAB FOR CORONAVIRUS DISEASE 2019 (COVID-19) You are being given a medicine called casirivimab and imdevimab for the treatment of coronavirus disease 2019 (COVID-19). This Fact Sheet contains information to help you understand the potential risks and potential benefits of taking casirivimab and imdevimab, which you may receive. Receiving casirivimab and imdevimab may benefit certain people with COVID-19. Read this Fact Sheet for information about casirivimab and imdevimab. Talk to your healthcare provider if you have questions. It is your choice to receive casirivimab and imdevimab or stop at any time. WHAT IS COVID-19? COVID-19 is caused by a virus called a coronavirus. People can get COVID-19 through contact with another person who has the virus. COVID-19 illnesses have ranged from very mild (including some with no reported symptoms) to severe,including illness resulting in . While information so far suggests that most COVID- 19 illnessis mild, serious illness can occur and may cause some of your other medical conditions to become worse. People of all ages with severe, long-lasting (chronic) medical conditions like heart disease, lung disease, and diabetes, for example, seem to be at higher risk of being hospitalized for COVID-19. WHAT ARE THE SYMPTOMS OF COVID-19? The symptoms of COVID-19 include fever, cough, and shortness of breath, which may appear 2 to 14 days after exposure. Serious illness including breathing problems can occur and may cause your other medical conditions to become worse. WHAT IS CASIRIVIMAB AND IMDEVIMAB? Casirivimab and imdevimab are investigational medicines used to treat mild to moderate symptoms of COVID-19 in non-hospitalized adults and adolescents (12 years of age and older who weigh at least 88pounds (40 kg)), and who are at high risk for developing severe COVID- 19 symptoms or the need for hospitalization. Casirivimab and imdevimab are investigational because they are still being studied.There is limited information known about the safety and effectiveness of using casirivimab and imdevimab to treat people with COVID-19. The FDA has authorized the emergency use of casirivimab and imdevimab for the treatment of COVID-19under an Emergency Use Authorization (EUA). For more information on EUA, see the ???What is an Emergency Use Authorization (EUA)??? section at the end of this Fact Sheet. WHAT SHOULD I TELL MY HEALTH CARE PROVIDER BEFORE I RECEIVE CASIRIVIMAB AND IMDEVIMAB? Tell your healthcare provider about all of your medical conditions, including if you: ?? Have any allergies ?? Are or plan to become ?? Are or plan to breastfeed ?? Have any serious illnesses ?? Are taking any medications (prescription, hjom-wxz-gygzcgf, vitamins, and herbal products) HOW WILL I RECEIVE CASIRIVIMAB AND IMDEVIMAB? Casirivimab and imdevimab are two investigational medicines given together as a single intravenous infusion (through a vein) for at least 1 hour. You will receive one dose of casirivimab and imdevimab by intravenous infusion. WHAT ARE THE IMPORTANT POSSIBLE SIDE EFFECTS OF CASIRIVIMAB AND IMDEVIMAB? Possible side effects of casirivimab and imdevimab are: ?? Allergic reactions. Allergic reactions can happen during and after infusion with casirivimab andimdevimab. Tell your healthcare provider or nurse, or get medical help right away if you get any ofthe following signs and symptoms of allergic reactions: fever, chills, low blood pressure, changes in your heartbeat, shortness of breath, wheezing, swelling of your lips, face, or throat, rash including hives, itching, headache, nausea, vomiting, sweating, muscle aches, dizziness and shivering. ?? The side effects of getting any medicine by vein may include brief pain, bleeding, bruising of the skin, soreness, swelling, and possible infection at the infusion site. ?? These are not all the possible side effects of casirivimab and imdevimab. Not a lot of people have been given casirivimab and imdevimab. Serious and unexpected side effects may happen. Casirivimab and imdevimab are still being studied so it is possible that all of the risks are not known at this time. It is possible that casirivimab and imdevimab could interfere with your body's own ability to fightoff a future infection of SARS-CoV-2. Similarly, casirivimab and imdevimab may reduce your body???simmune response to a vaccine for SARS-CoV-2. Specific studies have not been conducted to address these possible risks. Talk to your healthcare provider if you have any questions. WHAT OTHER TREATMENT CHOICES ARE THERE? Like casirivimab and imdevimab, FDA may allow for the emergency use of other medicines to treat people with COVID-19. Go to https://www.vgbzz27lhbccdqdedourooorhj.nih.gov/ for information on other med icines used to treat people with COVID-19. It is your choice to be treated or not to be treated with casirivimab and imdevimab. Should you decide not to receive casirivimab and imdevimab or stop it at any time, it will not change your standard medical care. WHAT IF I AM OR ? There is limited experience treating women or mothers with casirivimab and imdevimab. For a mother and unborn baby, the benefit of receiving casirivimab and imdevimab may be greater than the risk from the treatment. If you are or , discuss your options and specific situation with your healthcare provider. HOW DO I REPORT SIDE EFFECTS WITH CASIRIVIMAB AND IMDEVIMAB? Tell your healthcare provider right away if you have any side effect that bothers you or does not go away. Report side effects to FDA MedWatch at www.fda.gov/medwatch or call 0-118-BQA-1635 or call . HOW CAN I LEARN MORE? Ask your health care provider. Visit www.[employer] Visit https://www.mnylx40ltfaqmftearrzdjilyl.nih.gov/ Contact your local or state public health department. WHAT IS AN EMERGENCY USE AUTHORIZATION (EUA)? The [place] FDA has made casirivimab and imdevimab available under an emergency access mechanism called an EUA. The EUA is supported by a [place] of Health and Human Service (HHS) declarationthat circumstances exist to justify the emergency use of drugs and biological products during the COVID-19 pandemic. Casirivimab and imdevimab have not undergone the same type of review as an FDA- approved or cleared product. The FDA may issue an EUA when certain criteria are met, which includes that there are no adequate, approved, available alternatives. In addition, the FDA decision is based on the totality of s cientific evidence available showing that it is reasonable to believe that the product meets certain criteria for safety, performance, and labeling and may be effective in treatment of patients during the COVID-19 pandemic. All of these criteria must be met to allow for the product to be used in the treatment of patients during the COVID-19 pandemic. The EUA for casirivimab and imdevimab is in effect for the duration of the COVID-19 declaration justifying emergency use of these products, unless terminated or revoked (after which the products may no longer be used). Manufactured by: [employer] [address] ??2019 [employer] All rights reserved. Authorized: 04/2020 Isolate If You Are Sick Separate yourself from others if you have COVID-19 Updated by [facility] May Isolation is used to separate people infected with COVID-19, even those who are not infected. People who are in isolation should stay home until it???s safe for them to be around others. At home, anyone sick or infected should separate from others, stay in a specific ???sick room?? or area, and use a separate bathroom (if available). Isolation or Quarantine: What's the difference? Quarantine keeps someone who might have been exposed to the virus away from others. Isolation keepssomeone who is infected with the virus away from others, even in their home. Click here for a short video description or go to https://youtu.be/l3s75_X8Xjs Who needs to isolate? People who have COVID-19 ?? People who have symptoms of COVID-19??and are able to recover at home ?? People who have no symptoms (are asymptomatic) but have tested positive for infection with SARS-CoV-2 Steps to take Stay home except to get medical care ?? Monitor your symptoms. If you have an emergency warning sign??(including trouble breathing), seek emergency medical care immediately ?? Stay in a separate room from other household members, if possible ?? Use a separate bathroom, if possible ?? Avoid contact with other members of the household and pets ?? Don???t share personal household items, like cups, towels, and utensils ?? Wear a mask when around other people, if you are able to Learn more about what to do if you are sick. Confirmed and suspected cases of reinfection of the virus that causes COVID-19 Cases of reinfection of COVID-19 have been reported but are rare. In general, reinfection means a person was infected (got sick) once, recovered, and then later became infected again. Based on what we know from similar viruses, some reinfections are expected. When you can be around others after you had or likely had COVID-19 When you can be around others (end home isolation) depends on different factors for different situations. Find [facility]???s recommendations for your situation below. I think or know I had COVID-19, and I had symptoms You can be with others after ?? At least 10 days since symptoms first appeared and ?? At least 24 hours with no fever without fever-reducing medication and ?? Other symptoms of COVID-19 are improvingLoss of taste and smell may persist for weeks or months after recovery and need not delay the end of isolation If you had severe illness from COVID-19 (you were admitted to a hospital and needed oxygen), your healthcare provider may recommend that you stay in isolation for longer than 10 days after your symptoms first appeared (possibly up to 20 days) and you may need to finish your period of isolation at home. I tested positive for COVID-19 but had no symptoms If you continue to have no symptoms, you can be with others after: ?? 10 days have passed since the date you had your positive test If you develop symptoms after testing positive, follow the guidance above for ???I think or know I had COVID, and I had symptoms.?? I had COVID-19 or I tested positive for COVID-19 and I have a weakened immune system If you have a weakened immune system (immunocompromised)??due to a health condition or medication, you might need to stay home and isolate longer than 10 days. Talk to your healthcare provider for more information. Your doctor may work with an infectious disease expert at your local health department??to determine when you can be around others. Getting testing again for COVID-19 If you have recovered from your symptoms after testing positive for COVID-19, you may continue to test positive for three months or more without being contagious to others. For this reason, you should be tested only if you develop new symptoms of possible COVID-19. Getting tested again should be discussed with your healthcare provider, especially if you have been in close contact with another person who has tested positive for COVID-19 in the last 14 days. If you have symptoms and test positive for COVID-19, follow the guidance above for ???I think or know I had COVID, and I had symptoms.?? Your doctor may work with an infectious disease expert at your local health department??to determine when you can be around others. For more information from the CDC click here or visit https://www.cdc.gov/coronavirus/2019-ncov/vo-hqo-pcw-sick/isolation.html When You Can be Around Others After You Had or Likely Had COVID-19 Updated by [facility] 2019 I think or know I had COVID-19, and I had symptoms You can be around others after: ?? 10 days since symptoms first appeared and ?? 24 hours with no fever without the use of fever-reducing medications and ?? Other symptoms of COVID-19 are improving* *Loss of taste and smell may persist for weeks or months after recovery and need not delay the end of isolation Most people do not require testing to decide when they can be around others; however, if your healthcare provider recommends testing, they will let you know when you can resume being around others based on your test results. Note that these recommendations do not apply to persons with severe COVID-19 or with severely weakened immune systems (immunocompromised). These persons should follow the guidance below for ???I was severely ill with COVID-19 or have a severely weakened immune system (immunocompromised) due to a health condition or medication.?? I tested positive for COVID-19 but had no symptoms If you continue to have no symptoms, you can be with others after 10 days have passed since you hada positive viral test for COVID-19. Most people do not require testing to decide when they can be around others; however, if your healthcare provider recommends testing, they will let you know when you can resume being around others based on your test results. If you develop symptoms after testing positive, follow the guidance above for ???I think or know I had COVID-19, and I had symptoms.?? I was severely ill with COVID-19 or have a severely weakened immune system (immunocompromised) due to a health condition or medication. People who are severely ill with COVID-19 might need to stay home longer than 10 days and up to 20 days after symptoms first appeared. Persons who are severely immunocompromised??may require testing to determine when they can be around others. Talk to your healthcare provider for more information. If testing is available in your community, it may be recommended by your healthcare provider.??Your healthcare provider will let you know if you can resume being around other people based on the results of your testing. For Anyone Who Has Been Around a Person with COVID-19 Anyone who has had close contact with someone with COVID-19 should stay home for 14 days after their last exposure to that person. However, anyone who has had close contact with someone with COVID-19 and who??meets the following criteria does??NOT??need to stay home. ?? Has COVID-19 illness within the previous 3 months and ?? Has recovered and remains without COVID-19 symptoms (for example, cough, shortness of breath) Confirmed and suspected cases of reinfection of the virus that causes COVID-19 Cases of reinfection of COVID-19 have been reported but are rare. In general, reinfection means a person was infected (got sick) once, recovered, and then later became infected again. Based on what we know from similar viruses, some reinfections are expected. For Healthcare Professionals If you are a healthcare professional who thinks or knows you had COVID-19, you should follow the same recommendations listed above for when you can resume being around others outside the workplace. When you can return to work depends on different factors and situations. For information on when you can return to work, see the following: Criteria for Return to Work for Healthcare Personnel with SARS-CoV-2 Infection (Interim Guidance) For more information from the CDC click here or visit https://www.cdc.gov/coronavirus/2019-ncov/if-y ou-are-sick/yta-pjjy-berivfwoq.html documented in this encounter Plan of Treatment Upcoming Encounters Date Type Department Care Team (Late st Contact Info) Description 06/28/2024 9:40 AM EST Clinical Support [facility] [address] [place] [phone] 11/19/2024 1:40 PM EDT Office Visit [facility] Neurology [facility] [address] [place] [address] Lyndsay Brewer DO [address] [facility] [address] [place] [address] documented as of this encounter Goals [...] Diagnosis Comments POCT JOSIE SARS ANTIGEN Routine 03/23/2021 4:42 PM EDT Cough documented in this encounter Results * (ABNORMAL) POCT JOSIE SARS ANTIGEN (03/23/2021 4:42 PM EDT) SARS Antigen Positive(A ) Negative SEP OFFICE Lot Number [id number] SEP OFFICE Expiration Date 05/24/21 SEP OFFICE SeriAl # SEP OFFICE Control Line Yes YES/NO SEP OFFICE 03/23/2021 4:42 PM EDT Brian Hickman MD POINT OF CARE TEST ORDERABLES Final Result SEP OFFICE documented in this encounter Visit Diagnoses Diagnosis Cough- Primary COVID-19 virus infection COPD, moderate (HCC) Chronic airway obstruction, not elsewhere classified documented in this encounter Orders Nursing Count Last Ordered Date First Orde red Date AMB PATIENT TO RECEIVE COVID ANTIVIRAL MONOCLONAL ANTIBODY IN 1 03/23/2021 documented in this encounter Additional Health Concerns Infection Onset Date Last Indicated Resolved Time COVID-19 03/23/2021 03/23/2021 04/12/2021 10:1 2 PM EDT documented as of this encounter Care Teams Reel Cutter Relationship Specialty Start Date End Date Steffanie Fulton APRN [address] [employer] [address] [place] [id number] PCP - General Nurse Practitioner 01/15/21 05/02/21 documented as of this encounter
--- OUTSIDE RECORDS SUMMARY | 2024-05-29 15:43 | XMS_ITS | Encounter Summary ---
Author Organization [place] [address] Care Team Providers Care Socially Responsible Investment Adviser Name Role Phone KirstinSteffanie YOLI Primary Care Provider +1- [phone] Reason for Visit * Reason Comments Medication Refill Encounter Details Date Type Department Care Team (Late st Contact Info) Description 02/08/2021 Refill [facility] [address] [place] [address] Michelle Garrido APRN Medication Refill [...] Refills Last Filled Start Date End Date ADVAIR DISKUS 500-50 mcg/dose Inhl Disk with DeviceIndications: Encounter for medication refill INHALE 1 PUFF BY MOUTH TWICE A DAY 180 Each 1 02/08/2021 11/04/2021 documented in this encounter Plan of Treatment Upcoming Encounters Date Type Department Care Team (Late st Contact Info) Description 06/28/2024 9:40 AM EST Clinical Support [facility] [address] [place] [phone] 11/19/2024 1:40 PM EDT Office Visit SEP Neurology [facility] [address] [place] [address] Lyndsay Brewer, DO [address] [place] [address] documented as of this encounter [...] 1 PUFF BY MOUTH TWICE A DAY 08/05/2020 02/08/2021 documented as of this encounter Care Teams Socially Responsible Investment Adviser Relationship Specialty Start Date End Date Steffanie Fulton APRN [address] [place] [phone] PCP - General Nurse Practitioner 01/15/21 05/02/21 documented as of this encounter
--- OUTSIDE RECORDS SUMMARY | 2024-05-29 15:43 | XMS_ITS | Encounter Summary ---
Author Organization [facility] [place] [place] [address] Care Team Providers Care Property Custodian Name Role Phone Steffanie Fulton APRN Primary Care Provider +1- [phone] Encounter Details Date Type Department Care Team (Latest Contact Info) Description 03/12/2021 Travel Social History Tobacco Use Types Packs/Day [...] AM EST Clinical Support [facility] [address] [employer] [facility] [place] [phone] 11/19/2024 1:40 PM EDT Office Visit SEP Neurology [facility] [address] [place] [address] Lyndsay Brewer DO [address] [place] [address] documented as of this encounter [...] on filedocumented in this encounter Care Teams Property Custodian Relationship Specialty Start Date End Date Steffanie Fulton APRN [address] [place] [address] PCP - General Nurse Practitioner 01/15/21 05/02/21 documented as of this encounter
--- OUTSIDE RECORDS SUMMARY | 2024-05-29 15:43 | XMS_ITS | Encounter Summary ---
Author Organization [place] [address] Care Team Providers Care Hospice Nurse Practitioner Name Role Phone Michelle Garrido APRN Primary Care Provider Unava ilable Reason for Visit * Reason Comments Medication Refill Encounter Details Date Type Department Care Team (Late st Contact Info) Description 01/04/2021 Refill [facility] [address] [place] [address] Michelle Garrido APRN Medication Refill [...] MOUTH EVERY DAY AT NIGHT 90 Tab 01/04/2021 04/09/2021 documented in this encounter Plan of Treatment Upcoming Encounters Date Type Department Care Team (Late st Contact Info) Description 06/28/2024 9:40 AM EST Clinical Support [facility] [address] [phone] 11/19/2024 1:40 PM EDT Office Visit SEP Neurology [facility] [address] [place] [phone] Lyndsay Brewer DO [address] [facility] [address] [place] [address] documented as of this encounter Goals Goal [...] Da te montelukast (SINGULAIR) 10 mg Oral TabletIndications:Moderate persistent asthma without complication Take 1 Tab by mouth nightly. 10/07/2020 01/04/2021 documented as of this encounter Care Teams Hospice Nurse Practitioner Relationship Specialty Start Date End Date Michelle Garrido APRN PCP - General Nurse Practitioner 01/09/17 01/14/21 documented as of this encounter
--- OUTSIDE RECORDS SUMMARY | 2024-05-29 15:43 | XMS_ITS | Encounter Summary ---
Author Organization [place] [address] Care Team Providers Care Teleprinter Name Role Phone Steffanie Fulton APRN Primary Care Provider +1- [phone] Reason for Visit * Reason Onset Date Comments Prior Authorization 01/19/2021 diclofenac s odium gel Encounter Details Date Type Department Care Team ([facility] Contact Info) Description 01/19/2021 Telephone [facility]P [facility] [address] [place] [address] Steffanie Fulton APRN [address] [place], [place] [id number] Prior Authorization (diclofenac sodium gel) Social History Tobacco Use Types Packs/Day Years [...] Telephone Encounter - Farzana Garrido MA - 01/19/2021 3:47 PM EDT PA approved on diclofenac sodium gel 10/17/20-01/15/22 Pt was informed. documented in this encounter Plan of Treatment Upcoming Encounters Date Type Department Care Team (Late st Contact Info) Description 06/28/2024 9:40 AM EST Clinical Support [facility] [address] [place] [phone] 11/19/2024 1:40 PM EDT Office Visit SEP Neurology [facility] [address] [place] [address] Lyndsay Brewer DO [address] [place] [address] documented as of this encounter [...] on filedocumented in this encounter Care Teams Teleprinter Relationship Specialty Start Date End Date Steffanie Fulton APRN [address] [place] [address] PCP - General Nurse Practitioner 01/15/21 05/02/21 documented as of this encounter
--- OUTSIDE RECORDS SUMMARY | 2024-05-29 15:43 | XMS_ITS | Encounter Summary ---
Author Organization [place] [address] Care Team Providers Care Cake Wrapper Name Role Phone Steffanie Fulton APRN Primary Care Provider +1- [phone] Encounter Details Date Type Department Care Team (Late st Contact Info) Description 03/12/2021 9:00 AM EDT Telemedicine [facility] [address] [place] [address] Ligia Wiley MD [address] [employer] [place], [place] [phone] Viral URI (Primary Dx) Social History Tobacco Use Types [...] Progress Notes * Ligia Wiley MD - 03/12/2021 9:00 AM EDT Chief Complaint: Concern for COVID-19. Is this visit being conducted using a Video Visit or Telephone? Patient presented today for routine care follow-up through a video visit. Patient has reviewed the terms and conditions of service as part of the registration for today's visit. A video visit does not replace a tscr-dj-[id number] exam and further services may be necessary. We are conducting his video visit in a private space and this video visit is being conducted in accordance with state telehealth/video visit regulations. HPI: Zuhair Whitlock is a 55 y.o. male who is being evaluated for COVID-19 symptoms or a concern over SARS-CoV-2 exposure (the virus that causes COVID-19). In the past 14 days, the patient had NEW symptoms of fever, cough , myalgias (body aches) and diarrhea Symptoms began: 1 week Had close contact with anyone who has been diagnosed with the novel coronavirus in the past 14 days? (Close contact means within approximately 6 feet of a COVID-19 case for a prolonged period of time. Close contact can occur while caring for, living with, visiting, or sharing a healthcare room or waiting area with a COVID-19 case or while having direct contact with infectious secretions of a COVID-19 case [e.g., being coughed on].): no Person living in congregant facility (such as assisted living, residential facility, adult home, dorm, fraternity, sorority, half-way, halfway, fpc, adult family home) or is homeless?: no Traveled to a state or country where cases of COVID-19 are high? no Immunocompromised individual (e.g., cancer, solid organ transplant, other immunosuppressive drugs, chronic lung disease, hemodialysis, advanced HIV)?: no Is the patient a health care worker or in a public safety occupation (e.g. law enforcement, demand planning manager, EMS)? no Review of Systems Constitutional: Positive for fever and malaise/fatigue. HENT: Negative for congestion. Respiratory: Positive for cough. Cardiovascular: Negative for chest pain. Gastrointestinal: Positive for abdominal pain and diarrhea. Musculoskeletal: Positive for myalgias. Skin: Negative for rash. Neurological: Positive for headaches. Physical Exam: Alert, well appearing, no distress Appears to have normal nutrition and hydration Speaking in full sentences comfortably, normal work of breathing, no cough during visit No confusion, normal mentation, affect and behavior Diagnoses and all orders for this visit: Viral URI Comments: Negative flu and rapid Covid. Recommend symptomatic care - advised to contact us immediately if they have difficulty breathing or shortness of breath, persistent chest pain or pressure, new confusion or inability to arouse or [...] EST Clinical Support [facility] [address] [place] [phone] 11/19/2024 1:40 PM EDT Office Visit SEP Neurology [facility] [address] [place] [phone] Lyndsay Brewer DO [address] [place] [address] documented as of this encounter Goals Goal Patient Goal Type Associated Problems Recent Progress Patient-Stated? Author Blood Pressure < 140/90 Blood Pressure 134/84(2023 1:16 PM EST) No Yana Choi RMJane Eat better, exercise, reach an ideal body weight General No Yana Choi RMJane Stay Tobacco Free Lifestyle No Yana Choi RMA documented as of this encounter Visit Diagnoses Diagnosis Viral URI- Primary Acute upper respiratory infections of unspecified site documented in this encounter Care Teams Cake Wrapper Relationship Specialty Start Date End Date Steffanie Fulton APRN [address] [place] [phone] PCP - General Nurse Practitioner 01/15/21 05/02/21 documented as of this encounter
--- OUTSIDE RECORDS SUMMARY | 2024-05-29 15:43 | XMS_ITS | Encounter Summary ---
Author Organization [place] [address] Care Team Providers Care Cage Shift Manager Name Role Phone Steffanie Fulton APRN Primary Care Provider +1- [phone] Reason for Visit * Reason Onset Date Comments Other 03/02/2021 Encounter Details Date Type Department Care Team (Late st Contact Info) Description 03/02/2021 Telephone [facility] [address] [place] [address] Steffanie Fulton APRN [address] [place] [address] Other Social History Tobacco Use Types Packs/Day [...] encounter Miscellaneous Notes * Telephone Encounter - Radha Galvin MA - 03/02/2021 2:11 PM EDT Spoke with Arlen and confirmed orders * Telephone Encounter - Steffanie Fulton APRN - 03/02/2021 1:40 PM EDT Cervical bilateral upper extremities * Telephone Encounter - Farzana Garrido MA - 03/02/2021 11:11 AM EDT One said lumbar, one said cervical, and one said other. Please advise. * Telephone Encounter - [place] Green - 03/02/2021 10:37 AM EDT Arlen from [facility] called and pt has an appointment tomorrow but they have a question about which [facility]test they need to run because there is 3 orders in the system. Please clarify which test you want them to complete. They were notified that Esthela not be in unitl tomorrow morning. They would like someone to call them at [phone] when we have an answer documented in this encounter Plan of Treatment Upcoming Encounters Date Type Department Care Team (Late st Contact Info) Description 06/28/2024 9:40 AM EST Clinical Support [facility] [address] [employer] [place], [place] [phone] 11/19/2024 1:40 PM EDT Office Visit SEP Neurology [facility] [address] [place] [address] Lyndsay Brewer DO [address] [place] [address] documented as of this encounter Goals [...] on filedocumented in this encounter Care Teams Cage Shift Manager Relationship Specialty Start Date End Date Steffanie Fulton APRN [address] [employer] [place] [address] PCP - General Nurse Practitioner 01/15/21 05/02/21 documented as of this encounter
--- OUTSIDE RECORDS SUMMARY | 2024-05-29 15:43 | XMS_ITS | Encounter Summary ---
Author Organization [place] [address] Care Team Providers Care Consumer Sales Representative Name Role Phone Michelle Garrido APRN Primary Care Provider Unava ilable Reason for Visit * Reason Onset Date Comments Medication Refill Medication Refill 01/01/2021 Encounter Details Date Type Department Care Team (Late st Contact Info) Description 12/26/2020 Telephone [facility] [address] [place] [address] Michelle Garrido APRN Medication Refill; Medication Refill Social History Tobacco Use Types [...] TAB BY MOUTH NEEDED FOR ERECTILE DYSFUNCTION 90 Tab 2 12/28/2020 documented in this encounter Miscellaneous Notes * Telephone Encounter - Paras Sparrow - 01/06/2021 10:52 AM EDT Pt calling to check on the status of his request. Pt has requested a call back at the earliest convenience. Please advise * Telephone Encounter - Jennifer Pike - 01/01/2021 9:39 AM EDT Prior Authorization Request Who is requesting the Prior Auth: Patient Medication Name /Dosage/Frequency: tadalafiL (CIALIS) 5 mg Oral Tablet [[id number]] Did the pharmacy suggest an alternate medication: No Pharmacy Name & Location: [facility] in [place] Is the patient???s insurance plan that is on file up to date: Yes Informed patient that prior authorizations can take up to 10 business days for response: yes Additional Information: Pt states if he is due for an appt to get medication, Please Let him know! Please adv. * Telephone Encounter - Colleen Arvizu CPhT - 12/28/2020 10:44 AM EDT tadalafiL - Medication Refill Protocol passed. all terrain vehicle racer Action: Approved refills to noted follow-up date by provider or protocol if no follow-up date noted. documented in this encounter Plan of Treatment Upcoming Encounters Date Type Department Care Team (Late st Contact Info) Description 06/28/2024 9:40 AM EST Clinical Support [facility] [address] [employer] [place] [phone] 11/19/2024 1:40 PM EDT Office Visit SEP Neurology [facility] [address] [place] [address] Lyndsay Brewer DO [address] [place] [address] documented as of this encounter [...] TAB BY MOUTH NEEDED FOR ERECTILE DYSFUNCTION 07/06/2020 12/28/2020 documented as of this encounter Care Teams Consumer Sales Representative Relationship Specialty Start Date End Date Michelle Garrido APRN PCP - General Nurse Practitioner 01/09/17 01/14/21 documented as of this encounter
--- OUTSIDE RECORDS SUMMARY | 2024-05-29 15:43 | XMS_ITS | Encounter Summary ---
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 54 Inhaler 01/20/2021 03/03/20 21 betamethasone dipropionate (DIPROLENE) 0.05 % Top OintmentIndications :Psoriasis APPLY TO AFFECTED AREA EVERY DAY 15 g 2 12/14/2020 07/23/19 22 colestipoL (COLESTID) 1 gram Oral TabletIndications:I rritable bowel syndrome with diarrhea,Bile salt-induced diarrhea Take 2 Tabs by mouth 2 times daily. 120 Tab 11 12/09/2020 06/28/19 22 diclofenac (VOLTAREN) 1 % Top GelIndications:Bila teral foot pain,Localized osteoarthritis of hand, unspecified laterality Apply 2 g topically 4 times daily. 100 g 1 01/15/2021 08/12/19 22 hydroCHLOROthiazide (MICROZIDE) 12.5 mg Oral Capsule TAKE 1 CAPSULE BY MOUTH EVERY DAY 30 Cap 5 10/22/2020 04/26/20 21 meloxicam (MOBIC) 15 mg Oral TabletIndications:B ilateral foot pain,Localized osteoarthritis of hand, unspecified laterality Take 1 Tab by mouth daily. 30 Tab 2 01/15/2021 04/06/20 21 montelukast (SINGULAIR) 10 mg Oral TabletIndications:M oderate persistent asthma without complication TAKE 1 TABLET BY MOUTH EVERY DAY AT NIGHT 90 Tab 01/04/2021 04/09/20 21 tadalafiL (CIALIS) 5 mg Oral TabletIndications:B PH without urinary obstruction Take 1 Tab by mouth as needed. for erectile dysfunction 90 Tab 2 01/07/2021 10/19/19 22 tamsulosin (FLOMAX) 0.4 mg Oral CapsuleIndications: BPH without urinary obstruction Take 2 Caps by mouth nightly. 180 Cap 1 10/15/2020 04/09/20 21 documented as of this encounter Discharge Disposition Disposition Code Departure Means Destination Home or Self Care documented in this encounter Plan of Treatment Upcoming Encounters Date Type Department Care Team (Late st Contact Info) Description 06/28/2024 9:40 AM EST Clinical Support [facility] SEPUL[facility] [address] [place] [address] 11/19/2024 1:40 PM EDT Office Visit [facility] Neu[facility] [address] [place] [address] Osman Lyndsay Harrelln, DO [address] [place] [address] documented as of this encounter [...] Associated Diagnosis Comments LIPID PANEL REFLEX Routine 01/20/2021 9: 52 AM EDT Essential hypertension TSH REFLEX Routine 01/20/2021 9:52 AM EDT Screening for thyroid disorder CBC WITH DIFF Routine 01/20/2021 9:52 AM EDT 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 Essential hypertension COMPREHENSIVE METABOLIC PANEL Routine 01/20/2021 9:52 AM EDT Essential hypertension documented in this encounter Results * (ABNORMAL) COMPREHENSIVE METABOLIC PANEL (01/20/2021 9:52 [...] 6:22 PM EDT [facility] Anion Gap 13 7 - 16 mmol/L 01/20/2021 6:22 PM EDT [facility] Calcium 9.5 8.6 - 10.4 mg/dL 01/20/2021 6:22 PM EDT [facility] Glucose Lvl 106(H) 74 - 100 mg/dL 01/20/2021 6:22 PM EDT [facility] BUN 22(H) 6 - 20 mg/dL 01/20/2021 6:22 PM EDT [facility] Creatinine 0.97 0.67 - 1.30 mg/dL 01/20/2021 6:22 PM EDT [facility] Albumin 4.5 3.5 - 5.2 gm/dL 01/20/2021 6:22 PM EDT [facility] Total Protein 6.7 6.4 - 8.3 gm/dL 01/20/2021 6:22 PM EDT [facility] Bili Total 0.4 0.1 - 1.4 mg/dL 01/20/2021 6:22 PM EDT [facility] ALT 28 <=41 U/L 01/20/2021 6:22 PM EDT [facility] AST 36 <=40 U/L 01/20/2021 6:22 PM EDT [facility] Alk Phos 99 40 - 129 U/L 01/20/2021 6:22 PM EDT [facility], [facility] GFR Afr Am 103 >=60 mL/min/1.7 3 m2 01/20/2021 6:22 PM T [facility] GFR Non Afr Am 89 >=60 mL/min/1.7 3 m2 01/20/2021 6:22 PM T [facility] Comment: This estimated GFR was calculated [...] EDT 01/20/2021 9:52 AM EDT Steffanie Fulton EPIC SPECIALIST CHEMISTRY ORDERABLES Final Result [facility] [address] [facility], [place] [address] [facility] [address] [place] [address] * (ABNORMAL) LIPID PANEL REFLEX (01/20/2021 9:52 AM EDT) Cholesterol 195 <200 mg/dL 01/20/2021 6:22 PM EDT [facility] Comment: < 200 ?Desirable 200 - 239 ? Borderline High >= 240 ?High Triglyceride 112 <150 mg/dL 01/20/2021 6:22 PM EDT [facility] Comment: < 150 ? Normal 150 - 199 ?Borderline High 200 - 499 ?High ??>= 500 ? Very High HDL 38(L) >=40 mg/dL 01/20/2021 6:22 PM EDT [facility] Comment: ??> 60 ?Optimal 40 - 60 ?Acceptable ?? < 40 ?Low LDL Calculated 135(H) <100 mg/dL 01/20/2021 6:22 PM EDT [facility] Non-HDL-C Calculated 157(H) <=129 mg/dL 01/20/2021 6:22 PM EDT [facility] Comment: <130 ?Desirable 130-159 Above Desirable 160-189 Borderline High 190-219 High >= 220 ??Very High Fasting Specimen? Yes None 021 6:22 PM EDT [facility] Blood VENOUS BLOOD / Unknown Venipuncture / Unknown 01/20/2021 9:52 AM EDT 01/20/2021 9:52 AM EDT Steffanie Fulton EPIC SPECIALIST CHEMISTRY ORDERABLES Final Result Performing Organization Address [facility]/ZIP Co de Phone Number [facility] [address], [address] , [place] [address] [facility] [address] [place] [address] * TSH REFLEX (01/20/2021 9:52 AM EDT) Pathologist [facility] TSH Reflex 1.730 0.270 - 4.200 mcIU/mL 01/20/2021 6:22 PM EDT [facility] [address], [facility] Blood VENOUS BLOOD / Unknown Venipuncture / Unknown 01/20/2021 9:52 AM EDT 01/20/2021 9:52 AM EDT Narrative [facility] [address], [facility] - 01/20/2021 6:22 PM EDT Ingestion of john doses of biotin (>5 mg/day) taken within 8 hours of drawing blood sample can interfere with this immunoassay test. Steffanie Fulton EPIC SPECIALIST CHEMISTRY ORDERABLES Final Result Performing Organization Address [facility]/ZIP Co de Phone Number [facility] [address], [facility] [address] [facility] , [place] [address] * (ABNORMAL) CBC WITH DIFF (01/20/2021 9:52 AM EDT) Pathologist [facility] WBC 4.8 3.7 - 10.3 x10(3)/mcL 01/20/2021 3:45 PM EDT [facility] RBC 4.55(L) 4.60 - 6.10 x10(6)/mcL 01/20/2021 3:45 PM EDT [facility] Hgb 14.2 13.7 - 17.5 g/dL 01/20/2021 3:45 PM EDT [facility] Hct 44.2 40.0 - 51.0 % 01/20/2021 3:45 PM EDT [facility] MCV 97.1 80.0 - 100.0 fL 01/20/2021 3:45 PM EDT [facility] MCH 31.2 26.0 - 34.0 pg 01/20/2021 3:45 PM EDT [facility] MCHC 32.1 30.7 - 35.5 g/dL 01/20/2021 3:45 PM EDT [facility] RDW 12.3 <=14.9 % 01/20/2021 3:45 PM EDT [facility] Platelet 160 155 - 369 x10(3)/mcL 01/20/2021 3:45 PM EDT [facility] MPV 10.9 8.8 - 12.5 fL 01/20/2021 3:45 PM EDT [facility] Neut Percent 58.8 % 01/20/2021 3:45 PM EDT [facility] Comment:Neutrophils equals s egs plus bands Imm Gran% 0.2 % 01/20/2021 3:45 PM EDT [facility] Comment:Automated count of m etamyelocytes, myelocytes and promyelocytes. Lymph Percent 26.9 % 01/20/2021 3:45 PM EDT [facility] [place] Percent 10.1 % 01/20/2021 3:45 PM EDT [facility] Eos Percent 3.4 % 01/20/2021 3:45 PM EDT [facility] Baso Percent 0.6 % 01/20/2021 3:45 PM EDT [facility] Neut # 2.8 1.6 - 6.1 x10(3)/[facility] 01/20/2021 3:45 PM EDT [facility] Comment:Neutrophils equals s egs plus bands IMMGRAN# 0.0 0.0 - 0.1 x10(3)/mcL 01/20/2021 3:45 PM EDT [facility] Comment:Automated count of m etamyelocytes, myelocytes and promyelocytes. An absolute IG <0.1 is reported as 0.0. Lymph # 1.3 1.2 - 3.9 x10(3)/mcL 01/20/2021 3:45 PM EDT [facility] [place] # 0.5 0.3 - 0.9 x10(3)/mcL 01/20/2021 3:45 PM EDT [facility] Eos# 0.2 0.0 - 0.5 x10(3)/mcL 01/20/2021 3:45 PM EDT [facility] [address], [place] Baso # 0.0 0.0 - 0.1 x10(3)/mcL 01/20/2021 3:45 PM EDT [facility] [address], [place] Blood VENOUS BLOOD / Unknown Venipuncture / Unknown 01/20/2021 9:52 AM EDT 01/20/2021 9:52 AM EDT Steffanie Fulton EPIC SPECIALIST HEMATOLOGY ORDERABLES Karina l Result [facility], [place] [address] [facility] , [address] [place] [id number] documented in this encounter 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
--- OUTSIDE RECORDS SUMMARY | 2024-05-29 15:43 | XMS_ITS | Encounter Summary ---
Author Organization [place] [address] Care Team Providers Care Rn Primary Care Name Role Phone Kirstin Steffanie YOLI Primary Care Provider +1- [phone] Encounter Details Date Type Department Care Team (Late st Contact Info) Description 01/20/2021 7:39 AM EDT - 01/20/2021 11:59 PM EDT Hospital Encounter [facility] [address] [place] [address] Steffanie Fulton APRN [address] [place] [address] Discharge Disposition: Home or Self Care Social [...] Discharge Nebulizer Accessories (ALL FLOW 4000 KIT) [facility] Formulary equivalent 1 Each 0 06/27/2012 ADVAIR [...] EST Clinical Support [facility] [address] [place] [phone] 11/19/2024 1:40 PM EDT Office Visit [facility] [address] [place] [address] Lyndsay Brewer, DO [address] [place] [address] documented as of this encounter [...] Name Priority Date/Time Associated Diagnosis Comments XR FOOT BILATERAL AP LATERAL AND OBLIQUE STANDING Routine 01/20/2021 8:11 AM EDT Bilateral foot pain documented in this encounter Results * XR FOOT BILATERAL AP LATERAL AND [...] 8:11 AM CLINICAL HISTORY: ??M79.671-Pain in right [id number]-[id number]-CM M79.672-Pain in left isaw-PXF-96-CM COMPARISON: ??None. PROCEDURE COMMENTS: Bilateral imaging per [...] 8:11 AM CLINICAL HISTORY: M79.671-Pain in right onyo-IOF-18-CM M79.672-Pain in left ptsp-DIN-67-CM COMPARISON: None. PROCEDURE COMMENTS: Bilateral imaging per [...] of the ordering clinician. Steffanie Fulton APRN [facility] OR[facility] ERABLES Final Result documented in this encounter Visit Diagnoses Not on filedocumented in this encounter Care Teams Rn Primary Care Relationship Specialty Start Date End Date Steffanie Fulton APRN [address] [place] [address] PCP - General Nurse Practitioner 01/15/21 05/02/21 documented as of this encounter
--- OUTSIDE RECORDS SUMMARY | 2024-05-29 15:43 | XMS_ITS | Encounter Summary ---
Author Organization [facility] [place] [address] Care Team Providers Care Wine And Spirits Clerk Name Role Phone Steffanie Fulton APRN Primary Care Provider +1- [phone] Encounter Details Date Type Department Care Team (Latest Contact Info) Description 01/20/2021 Travel Social History Tobacco Use Types Packs/Day [...] EST Clinical Support [facility] [address] [place] [phone] 11/19/2024 1:40 PM EDT Office Visit [facility] Neurology [facility] [address] [place] [phone] Lyndsay Brewer, [address] [place] [address] documented as of this encounter Goals Goal [...] on filedocumented in this encounter Care Teams Wine And Spirits Clerk Relationship Specialty Start Date End Date Steffanie Fulton APRN [address] [place] [address] PCP - General Nurse Practitioner 01/15/21 05/02/21 documented as of this encounter
--- OUTSIDE RECORDS SUMMARY | 2024-05-29 15:43 | XMS_ITS | Encounter Summary ---
Author Organization [facility] [place] [address] Care Team Providers Care Souvenir [address] Vendor Name Role Phone Steffanie Fulton APRN Primary Care Provider +1- [phone] Encounter Details Date Type Department Care Team (Latest Contact Info) Description 02/04/2021 Travel Social History Tobacco Use Types Packs/Day [...] EST Clinical Support [facility] [address] [place] [phone] 11/19/2024 1:40 PM EDT Office Visit [facility] Neurology [facility] [address] [place] [phone] Lyndsay Brewer, [address] [place] [address] [place] [address] documented as of this encounter Goals Goal [...] on filedocumented in this encounter Care Teams [address] Vendor Relationship Specialty Start Date End Date Steffanie Fulton APRN [address] [place] [address] PCP - General Nurse Practitioner 01/15/21 05/02/21 documented as of this encounter
--- OUTSIDE RECORDS SUMMARY | 2024-05-29 15:43 | XMS_ITS | Encounter Summary ---
Author Organization [place] [address] Care Team Providers Care Landscape Contractor Name Role Phone Michelle Garrido APRN Primary Care Provider Unava ilable Reason for Visit * Reason Comments Medication Refill Encounter Details Date Type Department Care Team (Late st Contact Info) Description 12/13/2020 Refill [facility] [address] [place] [address] Michelle Garrido APRN Medication [...] AREA EVERY DAY 15 g 2 12/14/2020 documented in this encounter Plan of Treatment Upcoming Encounters Date Type Department Care Team (Late st Contact Info) Description 06/28/2024 9:40 AM EST Clinical Support ANTOLIN SEPULVEDA [address] [place] [address] 11/19/2024 1:40 PM EDT Office Visit [facility] Neurology [facility] [address] [place] [phone] Lyndsay Brewer, DO [address] [place] [address] documented as of this encounter [...] dipropionate (DIPROLENE) 0.05 % Top OintmentIndications:Psor iasis Apply topically daily. 01/13/2020 12/14/2020 documented as of this encounter Care Teams Landscape Contractor Relationship Specialty Start Date End Date Michelle Garrido APRN PCP - General Nurse Practitioner 01/09/17 01/14/21 documented as of this encounter
--- OUTSIDE RECORDS SUMMARY | 2024-05-29 15:44 | XMS_ITS | Encounter Summary ---
Author Organization [facility] [place] [address] Care Team Providers Care Diesel Trailer Mechanic Name Role Phone Michelle Garrido APRN Primary Care Provider Unava ilable Reason for Visit * Auth/Cert/Inpt Specialty Diagnoses / Procedures Referred By Contac t Referred To Contact Diagnoses Rectal bleeding Diarrhea, unspecified type Rectal bleeding [K62.5] Diarrhea, unspecified type [R19.7] Procedures MD COLONOSCOPY FLX DX W/COLLJ SPEC WHEN PFRMD Colonoscopy with possible biopsy and/or polypectomy Referral ID Status Reason Start Date Expiration Date Visits Re quested Visits Authorized [id number] 1 1 Encounter Details Date Type Department Care Team (Late st Contact Info) Description 08/18/2020 12:11 PM EST Anesthesia Event [facility] ENDOSCOPY [address] [place] [address] Yobani Patel MD [address] [place] [address] [place] [address] Dawn Mcgowan APRN [address] [place] [address] Anesthesia Record Procedure Summary Procedure Name Responsible Anesthesiologist Anesthesia Start Time Anesthesia Stop Time COLONOSCOPY-ENDO DEPT ONLY (ANESTHESIA) Yobani Patel MD 08/18/20 1211 08/18/20 1237 Events Date Time Event Comment 08/18/2020 1028 1211 AN Equip Check 1211 An Start 1211 An Start Data 1211 Immediate Pre Anesthetic Ass es 1212 Anesthesia Ready 1219 Time out 1219 Incision 1237 an stop data 1237 Handoff I completed my SBAR handoff to the receiving nurse which has included the followin. Identification of the patient, family, or patient surrogate 2. Identification of the responsible practitioner 3. Pertinent medical history 4. Surgical procedure and reason for procedure 5. Intraoperative anesthetic management 6. All current lines, drains and respiratory support. 7. Outstanding follow up orders (X-rays, consults etc) 8. Expectations/Plans for the early post-procedure period 9. Opportunity for questions and acknowledgement of understanding from the receiving PACU/ICU steam fitter supervisor maintenance 1237 An Stop Meds Name Total propofol (DIPRIVAN) injection 100 mg propofol (DIPRIVAN) infusion 10 mg/mL 17 6,865 mcg lidocaine injection 1% 50 mg dexmedetomidine (PRECEDEX) IVP 8 mcg lactated ringers infusion 650 mL * Agents Name O2 * Blood No blood administrations on file. Lines, Drains, and Airways Type Details Placement Removal Peripheral IV 08/18/20; 1034; 22; Right; Hand; Anoop; RN; 1; 08/18/20; 1258; Per order; Catheter intact, Dressing applied, No Complications 08/18/20 1034 by Waldemar Roman, JUDITH 08/18/20 1258 by Waldemar Roman, JUDITH Airway Device: Nasal Cannul a Salter; Placement Date: 08/18/20; Placement Time: 1221 (created via procedure documentation); Removal Date: 08/18/20; Removal Time: 17308/18/20 1221 by Pk Willis CRNA 08/18/20 1739 by Discharge Provider, Automatic documented in this encounter Social History Tobacco Use Types Packs/Day Years Used Date Smoking Tobacco: Never Smokeless Tobacco: Current Snuff Alcohol Use Standard Drinks/Week Comments No 0 (1 standard drink = 0.6 oz pur e alcohol) Overall Financial Resource Strain (CARDIA) Answe r Date Recorded Difficulty of Paying Living Expenses Not hard at all 09/05/2019 PHQ-2 Answer Date Recorded PHQ-2 Score 0 04/15/2019 Hunger Vital Sign Answer Date Recorded Worried About Running Out of Food in the Last Ye ar Never true 09/05/2019 Ran Out of Food in the Last Year Never true 09/05/2019 PRAPARE - Transportation Answer Date Re corded Lack of Transportation (Medical) No 09/05/2019 Lack of Transportation (Non-Medical) No 09/05/2019 Sex and Gender Information Value Date Recorded Sex Assigned at Not on file Legal Sex Male 8:00 PM EDT Gender Identity Not on file Sexual Orientation Not on file COVID-19 Exposure Response Date Recorded In the last month, have you been in contact with someone who was confirmed or suspected to have Coronavirus / COVID-19? No / Unsure 08/18/2020 10:14 AM EST documented as of this encounter Functional Status * Is the person deaf or does he/she have serious difficulty hearing? Answer Date of Assessment Author No 07/03/2019 8:15 AM EST Maddy White RMA * Is the person blind or does he/she have serious difficulty seeing even when wearing glasses? Answer Date of Assessment Author No 07/03/2019 8:15 AM EST Maddy White RMA * Does this person have serious difficulty walking or climbing stairs? Answer Date of Assessment Author No 07/03/2019 8:15 AM EST Maddy White RMA * Does this person have difficulty dressing or bathing? Answer Date of Assessment Author No 07/03/2019 8:15 AM EST Maddy White, RMA * Because of a physical, mental or emotional condition, does this person have difficulty doing errands alone such as visiting a doctor's office or shopping? Answer Date of Assessment Author No 07/03/2019 8:15 AM EST Maddy White, RMA documented as of this encounter Mental Status * Because of a physical, mental or emotional condition, does this person have serious difficulty concentrating, remembering or making decisions? Answer Entry Date Author No 07/03/2019 8:15 AM Maddy Snow RMA documented in this encounter Procedure Notes * Pk Willis CRNA - 08/18/2020 12:21 PM ESTAssociated Order(s): Airway Intraop Airway Placement: Airway type: Nasal cannula salter documented in this encounter OR Notes * Anesthesia Postprocedure Evaluation - Yobani Patel MD - 08/18/2020 12:42 PM EST Post-Anesthesia Evaluation Note Patient Name: Zuhair Whitlock Patient Date: August 18, 2020 Post-Anesthesia EvaluationPatient Location: ENDO Post op vitals: stable Nausea controlled: yes Level of consciousness: awake, alert and oriented Post anesthesia pain: adequate analgesia Long acting local anesthetic: n/a Airway patency: patent Respiratory status: room air and spontaneous ventilation Cardiovascular status: stable Hydration status: euvolemic Temperature: Normothermia Perioperative complications: NONE Vitals: 08/18/20 1239 BP: 93/57 BP Location: Left arm Patient Position: Semi Fowlers Pulse: 64 Resp: 18 Temp: 36.2 ??C (97.2 ??F) TempSrc: Forehead SpO2: 96% * Anesthesia Preprocedure Evaluation - Yobani Patel MD - 08/04/2020 4:10 PM EST Images from the original note were not included. Pre-Anesthesia Evaluation Note Patient Name: Zuhair Whitlock Sex: male Patient : 1965 Age: 54 y.o. Patient Date: August 04, 2020 Procedure(s): COLONOSCOPY Anesthesia Evaluation Previous anesthesia. Airway Mallampati: II Dental Dental exam findings: poor Pulmonary (+) Asthma Physical exam: Comments: Clear to auscultation Cardiovascular (+)Hypertension: CAD/ND: Physical exam: Rhythm: regular Rate: normal Neuro/Psych (+) Psychiatric history: Bipolar and Anxiety GI/Hepatic/Renal (+) IBS BPH Endo/Other (+)Arthritis: Osteo Recreational drug use: (Hx of heroin use) IMPROVEMENT SPECIALIST Additional Pre-evaluation comments CBC & BMP 06/17/20 reviewed EKG 08/05/19- SR There is no height or weight on file to calculate BMI. Anesthesia Plan ASA 3 Last solid intake: The patient has not eaten within the last 8 hours. Last clear liquid intake: The patient has not had clear liquids within the last 2 hours. Anesthesia Plan: MAC Induction: intravenous Monitors: STD Recovering opioid addict; wants zero narcotics Informed consent Anesthetic plan and risks discussed with: patient. Chart Reviewed and patient examined documented in this encounter Plan of Treatment Upcoming Encounters Date Type Department Care Team (Late st Contact Info) Description 06/28/2024 9:40 AM EST Clinical Support [facility] [address] [place] [place] [phone] 11/19/2024 1:40 PM EDT Office Visit [facility] Neurology [facility] [address] [place] [address] Lyndsay Brewer DO [address] [place] [address] documented as of this encounter [...] Procedure Name Priority Date/Time Associated Diagnosis Comments INTRAOP AIRWAY PLACEMENT Routine 08/18/2020 12:21 PM EST documented in this encounter Results * INTRAOP AIRWAY PLACEMENT (08/18/2020 12:21 PM EST) Narrative [facility] - 08/18/2020 12:21 PM EST Pk Willis CRNA ? 08/18/2020 12:21 PM Intraop Airway Placement: ??Airway type: ??Nasal cannula gerryer Yobani Patel MD MD ANESTHESIA Final Result [facility] [address] [place] [address] documented in this encounter Visit Diagnoses Not on filedocumented in this encounter Administered Medications Inactive Administered Medications - up to 1 most recent administrations Medication Order MAR Action Action Date Dose Rate Site dexmedeTOMIDine in 0.9 % NaCL (PRECEDEX) 80 mcg/20 mL (4 mcg/mL) infusion PRN (Anesthesia), Starting on Mon08/18/20 at 1218, Until Mon08/18/20 at 1237, Anesthesia Intra-op Given 08/18/2020 12:18 PM EST 8 mcg lidocaine 1% 10 mg/mL (1 %) injection Intravenous, PRN (Anesthesia), Starting on Mon08/18/20 at 1218, Until Mon08/18/20 at 1237, Anesthesia Intra-op Given 08/18/2020 12:18 PM EST 50 mg propofol (DIPRIVAN) infusion 10 mg/mL Intravenous, CONTINUOUS PRN, Starting on Mon08/18/20 at 1218, Until Mon08/18/20 at 1237, Anesthesia Intra-op Rate/Dose Change 08/18/2020 12:26 PM EST 125 mcg/kg/min 68 mL/hr propofoL (DIPRIVAN) injection Intravenous, PRN (Anesthesia), Starting on Mon08/18/20 at 1219, Until Mon08/18/20 at 1237, Anesthesia Intra-op Given 08/18/2020 12:19 PM EST 100 mg documented in this encounter Care Teams Diesel Trailer Mechanic Relationship Specialty Start Date End Date Michelle Garrido APRN PCP - General Nurse Practitioner 01/09/17 01/14/21 documented as of this encounter
--- OUTSIDE RECORDS SUMMARY | 2024-05-29 15:44 | XMS_ITS | Encounter Summary ---
Author Organization [place] [address] Care Team Providers Care Member Services Representative Name Role Phone Michelle Garrido APRN Primary Care Provider Unava ilable Encounter Details Date Type Department Care Team (Late st Contact Info) Description 09/10/2020 2:00 PM EDT Telemedicine [facility] [address] [place] [address] Michelle Garrido APRN Moderate persistent asthma with exacerbation (Primary Dx) Social History Tobacco Use Types [...] have Coronavirus / COVID-19? No / Unsure 09/10/2020 8:41 AM EDT documented as of this encounter Functional Status * Is the person deaf or does he/she have serious difficulty hearing? Answer Date of Assessment Author No 07/03/2019 8:15 AM Maddy Snow RMA * Is the person blind or does he/she have serious difficulty seeing even when wearing glasses? Answer Date of Assessment Author No 07/03/2019 8:15 AM Maddy Snow RMA * Does this person have serious difficulty walking or climbing stairs? Answer Date of Assessment Author No 07/03/2019 8:15 AM Maddy Snow RMA * Does this person have difficulty dressing or bathing? Answer Date of Assessment Author No 07/03/2019 8:15 AM Maddy Snow RMA * Because of a physical, mental or emotional condition, does this person have difficulty doing errands alone such as visiting a doctor's office or shopping? Answer Date of Assessment Author No 07/03/2019 8:15 AM Maddy Snow ESTEFANY documented as of this encounter Mental Status * Because of a physical, mental or emotional condition, does this person have serious difficulty concentrating, remembering or making decisions? Answer Entry Date Author No 07/03/2019 8:15 AM Maddy Snow RMA documented in this encounter Ordered Prescriptions Prescription Sig Dispense Quantity Refills Last Filled Start Date End Date predniSONE (DELTASONE) 10 mg Oral TabletIndications:M oderate persistent asthma with exacerbation Take 4 tabs once daily for 2 days, then 3 tabs daily x2 days, then 2 tabs daily x2 days and then 1 tab daily x2 days. 20 Tab 09/10/2020 10/07/2020 documented in this encounter Progress Notes * Michelle Garrido, YOLI - 09/10/2020 2:00 PM EDT Chief Complaint: Concern for COVID-19. Is this visit being conducted using a Video Visit or Telephone? Patient presented today for routine care follow-up through a video visit. Patient has reviewed the terms and conditions of service as part of the registration for today's visit. A video visit does not replace a [id number] exam and further services may be necessary. We are conducting his video visit in a private space and this video visit is being conducted in accordance with state telehealth/video visit regulations. HPI: Zuhair Whitlock is a 54 y.o. male who is being evaluated for COVID-19 symptoms or a concern over SARS-CoV-2 exposure (the virus that causes COVID-19). In the past 14 days, the patient had NEW symptoms of cough , shortness of breath , myalgias (body aches) and severe fatigue Symptoms began: 09/08/2017 Had close contact with anyone who has [...] in congregant facility (such as assisted living, usp facility, adult home, dorm, fraternity, sorority, custodial, fci, retirement, adult family home) or is homeless?: no Traveled to a state or country where cases of COVID-19 are high? no Immunocompromised individual (e.g., cancer, solid organ transplant, other immunosuppressive drugs, chronic lung disease, hemodialysis, advanced HIV)?: no Is the patient a health care worker or in a public safety occupation (e.g. law enforcement, sanitation engineer, EMS)? no ROS Physical Exam: Alert, well appearing, no distress Appears to have normal nutrition and hydration Speaking in full sentences comfortably, normal work of breathing, no cough during visit No confusion, normal mentation, affect and behavior Diagnoses and all orders for this visit: Moderate persistent asthma with exacerbation - POCT JOSIE SARS ANTIGEN - POCT INFLUENZA A/B - predniSONE (DELTASONE) 10 mg Oral Tablet; Take 4 tabs once daily for 2 days, then 3 tabs daily x2days, then 2 tabs daily x2 days and then 1 tab daily x2 days. Dispense: 20 Tab; Refill: 0 Results for orders placed or performed in visit on 09/10/20 POCT JOSIE SARS ANTIGEN Result Value Ref Range SARS Antigen Negative Negative Lot Number [id number] Expiration Date 04/06/21 SeriAl # Control Line Yes YES/NO POCT INFLUENZA A/B Result Value Ref Range Influenza A Ag neg Influenza B Ag neg Lot Number [id number] Expiration Date 12/23/21 Flu Blue Control Line (positive internal control) Yes Clear Background (negative internal control) Yes Yes/No - advised to contact us immediately if they have difficulty breathing or shortness of breath, persistent chest pain or pressure, new confusion or inability to arouse or bluish lips or face - given advice to continue social distancing per current CDC guidelines This was completed as a non-face to [...] AM EST Clinical Support [facility] [address] [place] [address] 11/19/2024 1:40 PM EDT Office Visit SEP Neurology [facility] [address] [place] [address] Lyndsay Brewer DO [address] [facility] [address] [place] [address] documented as of this encounter [...] Name Priority Date/Time Associated Diagnosis Comments POCT INFLUENZA A/B Routine 09/10/2020 3: 27 PM EDT Moderate persistent asthma with exacerbation POCT JOSIE SARS ANTIGEN Routine 09/10/2020 3:26 PM EDT Moderate persistent asthma with exacerbation documented in this encounter Results * POCT INFLUENZA A/B (09/10/2020 3:27 PM EDT) Influenza A Ag neg SEP OFFICE Influenza B Ag neg SEP OFFICE Lot Number [id number] SEP OFFICE Expiration Date 12/23/21 SEP OFFICE Flu Blue Control Line (positive internal control) Yes SEP OFFICE Clear Background (negative internal control) Yes Yes/No SEP OFFICE 09/10/2020 3:27 PM EDT Result [facility] Michelle Garrido APRN POINT OF CARE TEST ORDERABLE S Final Result Performing Organization Address [facility] Co de Phone Number SEP OFFICE * POCT JOSIE SARS ANTIGEN (09/10/2020 3:26 PM EDT) SARS Antigen Negative Negative SEP OFFICE Lot Number [id number] SEP OFFICE Expiration Date 04/06/21 SEP OFFICE SeriAl # SEP OFFICE Control Line Yes YES/NO SEP OFFICE 09/10/2020 3:26 PM EDT Result [facility] Michelle Garrido APRN POINT OF CARE TEST ORDERABLE S Final Result Performing Organization Address [facility] Co de Phone Number SEP OFFICE documented in this encounter Visit Diagnoses Diagnosis Moderate persistent asthma with exacerbation- Primary Unspecified asthma, with exacerbation documented in this encounter Care Teams Member Services Representative Relationship Specialty Start Date End Date Michelle Garrido APRN PCP - General Nurse Practitioner 01/09/17 01/14/21 documented as of this encounter
--- OUTSIDE RECORDS SUMMARY | 2024-05-29 15:44 | XMS_ITS | Encounter Summary ---
Author Organization [place] [address] Care Team Providers Care Correspondence Review Clerk Name Role Phone Michelle Garrido APRN Primary Care Provider Unava ilable Reason for Visit * Reason Comments Medication Refill Encounter Details Date Type Department Care Team (Late st Contact Info) Description 11/02/2020 Refill [facility] [address] [place] [address] Michelle Garrido APRN Medication Refill [...] have Coronavirus / COVID-19? No / Unsure 10/06/2020 2:39 PM EDT documented as of this encounter [...] AM EST Clinical Support [facility] [address] [place] [phone] 11/19/2024 1:40 PM EDT Office Visit [facility] Neurology [facility] [address] [place] [address] Osman Lyndsay Harrelln, DO [address] [place] [address] documented as of this encounter Goals Goal [...] of repeat prescriptions documented in this encounter Care Teams Correspondence Review Clerk Relationship Specialty Start Date End Date Michelle Garrido APRN PCP - General Nurse Practitioner 01/09/17 01/14/21 documented as of this encounter
--- OUTSIDE RECORDS SUMMARY | 2024-05-29 15:44 | XMS_ITS | Encounter Summary ---
Author Organization [facility] [place] [address] Care Team Providers Care Public Relations Sales Marketing Name Role Phone Michelle Garrido APRN Primary Care Provider Unava ilable Reason for Visit * Reason Comments Medication Refill Encounter Details Date Type Department Care Team (Late st Contact Info) Description 11/09/2020 Refill [facility] [address] [place] [address] Michael Mckeon MD [address] [place] [address] Medication Refill Social History Tobacco Use Types [...] AM EST Clinical Support [place] [address] [place] [phone] 11/19/2024 1:40 PM EDT Office Visit [facility]rology [facility] [address] [place] [address] Lyndsay Brewer DO [address] [place] [facility] [address] documented as of this encounter Goals Goal Patient Goal Type Associated Problems Recent Progress Patient-Stated? Author Blood Pressure < 140/90 Blood Pressure 134/84(2023 1:16 PM EST) No Yana Choi RMA Eat better, exercise, reach an ideal body weight General No Yana Choi RMA Stay Tobacco Free Lifestyle No Yana Choi RMA documented as of this encounter Visit Diagnoses Diagnosis Diarrhea, unspecified type documented in this encounter Care Teams Public Relations Sales Marketing Relationship Specialty Start Date End Date Michelle Garrido APRN PCP - General Nurse Practitioner 01/09/17 01/14/21 documented as of this encounter
--- OUTSIDE RECORDS SUMMARY | 2024-05-29 15:44 | XMS_ITS | Encounter Summary ---
Author Organization [place] [address] Care Team Providers Care Pot Pusher Name Role Phone Michelle Garrido APRN Primary Care Provider Unava ilable Reason for Visit * Reason Onset Date Comments Medication Management 10/01/2020 nebulizer Encounter Details Date Type Department Care Team (Late st Contact Info) Description 10/01/2020 Telephone [facility] [address] [place] [address] Michelle Garrido APRN Medication Management (nebulizer) Social History Tobacco Use Types Packs/Day Years [...] No 07/03/2019 8:15 AM Maddy Snow ESTEFANY * Is the person blind or does he/she have serious difficulty seeing even when wearing glasses? Answer Date of Assessment Author No 07/03/2019 8:15 AM Maddy Snow ESTEFANY * Does this person have serious difficulty walking or climbing stairs? Answer Date of Assessment Author No 07/03/2019 8:15 AM Maddy Snow ESTEFANY * Does this person have difficulty dressing or bathing? Answer Date of Assessment Author No 07/03/2019 8:15 AM Maddy Snow ESTEFANY * Because of a physical, mental or [...] 07/03/2019 8:15 AM Maddy Snow ESTEFANY documented in this encounter Ordered Prescriptions Prescription Sig Dispense Quantity Refills Last Filled Start Date End Date albuterol (PROVENTIL) 2.5 mg /3 mL (0.083 %) Inhl Solution for NebulizationIndic ations:Bronchitis Take 3 mL by nebulization every 4 hours as needed for Wheezing. 180 mL 1 10/02/2020 documented in this encounter Miscellaneous Notes * Telephone Encounter - Farzana Garrido MA - 10/02/2020 11:39 AM EDT service captain had 2 different strength's on chart and wrong one was deleted. Resent the correct strength thathe has been taking. * Telephone Encounter - Lucy Caceres - 10/01/2020 9:02 AM EDT Pt calling requesting a call back from Farzana, states that the wrong nebulizer was called in and would like to speak with her to let her know exactly what he needs. documented in this encounter Plan of Treatment Upcoming Encounters Date Type Department Care Team (Late st Contact Info) Description 06/28/2024 9:40 AM EST Clinical Support [facility] [address] [place] [phone] 11/19/2024 1:40 PM EDT Office Visit [facility]P Neurology [facility] [address] [place] [address] Lyndsay Brewer DO [address] [place] [address] documented as of this encounter [...] Bronchitis, not specified as acute or chronic documented in this encounter Discontinued Medications Medication Sig Discontinue Reason Start Date End Da te albuterol (PROVENTIL) 5 mg/mL Inhl Solution for NebulizationIndication s:Moderate persistent asthma without complication Take 5 mg/hr by nebulization continuous. Reorder 09/24/2020 10/02/2020 documented as of this encounter Care Teams Pot Pusher Relationship Specialty Start Date End Date Michelle Garrido APRN PCP - General Nurse Practitioner 01/09/17 01/14/21 documented as of this encounter
--- OUTSIDE RECORDS SUMMARY | 2024-05-29 15:44 | XMS_ITS | Encounter Summary ---
Author Organization [place] [address] Care Team Providers Care Can Closing Machine Tender Name Role Phone Michelle Garrido APRN Primary Care Provider Unava ilable Reason for Visit * Reason Comments Medication Refill Encounter Details Date Type Department Care Team (Late st Contact Info) Description 08/25/2020 Refill [facility] [address] [place] [address] Michelle Garrido APRN Medication Refill [...] 8:15 AM EST Maddy White RMA * Because of a physical, mental or emotional condition, does this person have difficulty doing errands alone such as visiting a doctor's office or shopping? Answer Date of Assessment Author No 07/03/2019 8:15 AM EST Maddy White RMA documented as of this encounter Mental Status * Because of a physical, mental or emotional condition, does this person have serious difficulty concentrating, remembering or making decisions? Answer Entry Date Author No 07/03/2019 8:15 AM EST Maddy White RMA documented in this encounter Ordered Prescriptions Prescription Sig Dispense Quantity Refills Last Filled Start Date End Date losartan (COZAAR) 50 mg Oral Tablet TAKE 1 TABLET BY MOUTH EVERY DAY 30 Tab 08/26/2020 1 hydroCHLOROthiazid e (MICROZIDE) 12.5 mg Oral Capsule TAKE 1 CAPSULE BY MOUTH EVERY DAY 30 Cap 08/26/2020 1 documented in this encounter Miscellaneous Notes * Telephone Encounter - Marcela Ignacio [facility] - 08/26/2020 9:00 AM EST Losartan- Medication Refill Protocol failed due to appointment. [employer] certified network professional Reason: Past follow-up date noted by protocol. Protocol required follow-up within 6 months. Patient had appointment on 07/15/20 but associated diagnosis not assessed. [employer] certified network professional Action: Approved 2nd carter 30-day supply of medication Routed to office staff for outreach to schedule appointment. Hctz- Medication Refill Protocol failed due to appointment. [employer] certified network professional Reason: Past follow-up date noted by protocol. Protocol required follow-up within 6 months. Patient had appointment on 07/15/20 but associated diagnosis not assessed. [facility] Action: Approved 2nd carter 30-day supply of medication Routed to office staff for outreach to schedule appointment. documented in this encounter Plan of Treatment Upcoming Encounters Date Type Department Care Team (Late st Contact Info) Description 06/28/2024 9:40 AM EST Clinical Support [facility] [address] [place] [phone] 11/19/2024 1:40 PM EDT Office Visit [facility] [address] [place] [address] Lyndsay Brewer DO [address] [place] [address] documented as of this encounter [...] TAKE 1 CAPSULE BY MOUTH EVERY DAY 07/31/2020 08/26/2020 losartan (COZAAR) 50 mg Oral Tablet TAKE 1 TABLET BY MOUTH EVERY DAY 07/31/2020 08/26/2020 documented as of this encounter Care Teams Can Closing Machine Tender Relationship Specialty Start Date End Date Michelle Garrido APRN PCP - General Nurse Practitioner 01/09/17 01/14/21 documented as of this encounter
--- OUTSIDE RECORDS SUMMARY | 2024-05-29 15:44 | XMS_ITS | Encounter Summary ---
Author Organization [facility] [place] [address] Care Team Providers Care Stunt Man Name Role Phone Michelle Garrido APRN Primary Care Provider Unava ilable Encounter Details Date Type Department Care Team (Latest Contact Info) Description 10/06/2020 Travel Social History Tobacco Use Types Packs/Day [...] No 07/03/2019 8:15 AM EST Maddy White ESTEFANY * Is the person blind or [...] Author No 07/03/2019 8:15 AM Maddy Snow RMJane * Because of a physical, mental or emotional condition, does this person have difficulty doing errands alone such as visiting a doctor's office or shopping? Answer Date of Assessment Author No 07/03/2019 8:15 AM EST Maddy White RMJane documented as of this encounter Mental Status * Because of a physical, mental or emotional condition, does this person have serious difficulty concentrating, remembering or making decisions? Answer Entry Date Author No 07/03/2019 8:15 AM EST Maddy White ESTEFANY documented in this encounter Plan of Treatment Upcoming Encounters Date Type Department Care Team (Late st Contact Info) Description 06/28/2024 9:40 AM EST Clinical Support [facility] [place] [address] [place] [phone] 11/19/2024 1:40 PM EDT Office Visit [facility] [address] [place] [phone] Lyndsay Brewer DO [address] [place] [address] documented as of this encounter Goals [...] on filedocumented in this encounter Care Teams Stunt Man Relationship Specialty Start Date End Date Michelle Garrido APRN PCP - General Nurse Practitioner 01/09/17 01/14/21 documented as of this encounter
--- OUTSIDE RECORDS SUMMARY | 2024-05-29 15:44 | XMS_ITS | Encounter Summary ---
Author Organization [facility] [address] Care Team Providers Care [employer] In[employer] Servicer Name Role Phone Michelle Garrido APRN Primary Care Provider Unava ilable Reason for Visit * Reason Comments Medicare Annual Wellness Encounter Details Date Type Department Care Team (Latest Contact Info) Description 10/07/2020 8:00 AM EDT Office Visit [facility] [address] [place] [address] Michelle Garrido APRN Annual physical exam (Primary Dx); Screening for thyroid disorder; Screening for cholesterol level; Screening for endocrine, metabolic, and immunity disorder; Screening for deficiency anemia; Primary osteoarthritis of both knees; BPH without urinary obstruction; Bronchitis; Moderate persistent asthma without complication Social History Tobacco Use Types [...] Sign Reading Time Taken Comments Blood Pressure 124/82 10/07/2020 8:16 AM EDT Pulse 90 10/07/2020 8:16 AM EDT Temperature 37 ??C (98.6 ??F) 10/07/2020 8:16 AM EDT Respiratory Rate - - Oxygen Saturation 97% 10/07/2020 8:16 AM EDT Inhaled Oxygen Concentration - - Weight 98 kg (216 lb) 10/07/2020 8:16 AM EDT Height 170.2 cm (5' 7 ) 10/07/2020 8:16 AM EDT Body Mass Index 33.83 10/07/2020 8:16 AM EDT documented in this encounter Functional [...] End Date montelukast (SINGULAIR) 10 mg Oral TabletIndications :Moderate persistent asthma without complication Take 1 Tab by mouth nightly. 30 Tab 2 10/07/2020 1 fluticasone propionate (FLONASE) 50 mcg/actuation Nasl [place], SuspensionIndicat ions:Moderate persistent asthma without complication 1 [place] by Nasal route daily. 1 Bottle 2 10/07/2020 2 albuterol (PROVENTIL) 2.5 mg /3 mL (0.083 %) Inhl Solution for NebulizationIndic ations:Bronchitis Take 3 mL by nebulization every 4 hours as needed for Wheezing. 180 mL 1 10/07/2020 1 tamsulosin (FLOMAX) 0.4 mg Oral CapsuleIndication s:BPH without urinary obstruction Take 2 Caps by mouth nightly. TAKE 1 CAPSULE BY MOUTH EVERY NIGHT 180 Cap 1 10/07/2020 1 documented in this encounter Progress Notes * Michelle Garrido APRN - 10/07/2020 8:00 AM EDT Vitals: 10/07/20 0816 BP: 124/82 Pulse: 90 Temp: 98.6 ??F (37 ??C) TempSrc: Temporal SpO2: 97% Weight: 216 lb (98 kg) Height: 5' 7 (1.702 m) SUBJECTIVE: Chief Complaint Patient presents with ??? Medicare Annual Wellness HPI: Medicare Wellness Assessment Flowsheet Version: Body mass index is 33.83 kg/m??. Mr. Whitlock 54 y.o. male Pt is here for annual. BP--He said that he is tolerating BP meds okay and having no issues. BP today 124/82. Asthma--having a little difficulty due to sinus infection (treated with Augmentin) that has not resolved completely. He also says that allergies have been contributing. Has been trying to get refill on albuterol for nebulizer, two different strengths have been sent in. He wants to kind that you do not have to mix with solution. Allergies--pt currently taking only Claritin. He mentioned that allergies are getting worse. IBS--pt said that after colonscopy, GI put him on colestid and is tolerating that well and has seenmarked improvement. BPH--pt states that flomax has given significant relief. Has not experienced any side effects. Pt states that frequency has markedly decreased however still feels as if he is going too often. OA-- here for bilateral knee injections, pt stated that pain in his knees are relieved significantly with injections. Pt said that he has some coffee this AM with artificial sugar and creamer. Will get blood work completed at the imaging center. Pt would like a refill on the PRN tizanidine for muscle cramps in his calf muscle bilaterally. Overall, the patient says he is doing well. A steroid injection was performed using 1% plain Lidocaine and 80 mg of Depo- Medrol in each knee. This was well tolerated. Subsequent Annual Medicare Wellness Assessment. As part of today's visit the components [...] if the patient doesn't have an active [employer] Account. A copy of today's progress note with recommendations below is alsoavailable electronically for patients with an active [employer] account per the Federal Cures Act. TheAVS also contains additional patient education if appropriate on topics common to wellness and their plan of care. Fall Risk Assessment Has the patient had any fall with injury in the past year?: no Has the patient had 2 or more falls in the past year?: No Is the patient able to sit without assistance?: Yes Is the patient able to get up without assistance?: Yes Does the patient have a difficult time ambulating when first getting up?: No Does the patient have rugs or runners in the home?: (!) Yes Does the patient have grab bars in the bathroom?: Yes Does the patient have handrails for all inside or outside stairs?: Yes (no stairs) Does the patient have stairs in the home?: No (In office Assessment Only): Is the patient able to ambulate without assistance/device and with a gait steady?: Yes (In office Assessment Only): TUG test: Time patient going from sitting to standing, walk 10 feet, return to chair and sit. Record time. : Less or equal to 12 seconds Functional Status Assessment Functional Level: self care Functional Mobility Assessment: independent w/o assist device Assessment of transportation needs: still drives most of the time Functional Activities of Daily Living Limitations: No issues Bladder Control Assessment: No issues Activities of Daily Living Assistive Device Assessment Assistive Devices: Eyeglasses Osteoporosis Screening Assessment Has the patient had a DEXA scan in the past 2 years?: Not applicable (male) No results found for this or any previous visit. Abnormal Pains Assessment Excluding what you would consider normal aches and pains for your age and medical condition, do youhave any unusual or worrisome pains?: (!) Yes (bilateral knee pain) PHQ Depression Screening Results Little interest or [...] Cog Dementia Screening tool results Dementia: Negative No exam data present No results found for this visit on 10/07/20. Patient Active Problem List Diagnosis ??? Hip pain, left ??? Essential hypertension ??? Eczema ??? OA (osteoarthritis) ??? Asthma ??? EPHRAIM (generalized anxiety disorder) ??? BPH with urinary obstruction ??? Status post left hip replacement ??? Irritable bowel syndrome with diarrhea ??? dipper and drier ??? Rectal bleeding ??? Diarrhea ??? Polyp of colon Past Medical History: Diagnosis Date ??? Arthritis [...] ; Surgeon: Augie Ramires MD; Location: [facility]; Service: Orthopedics ??? KNEE [...] A DAY 180 Each 1 ??? albuterol (VENTOLIN HFA) 90 mcg/actuation Inhl HFA Aerosol Inhaler INHALE 1 TO 2 PUFFS EVERY 4 HOURS NEEDED FOR WHEEZING. 54 Inhaler 0 ??? celecoxib (CELEBREX) 200 mg Oral Capsule TAKE 1 CAPSULE BY MOUTH TWICE A DAY 180 Cap 3 ??? colestipoL (COLESTID) 1 gram Oral Tablet Take 1 Tab by mouth 2 times daily. 60 Tab 2 ??? FIBER CHOICE ORAL Take by mouth. ??? hydroCHLOROthiazide (MICROZIDE) 12.5 mg Oral Capsule TAKE 1 CAPSULE BY MOUTH EVERY DAY 30 Cap 0 ??? losartan (COZAAR) 50 mg Oral Tablet TAKE 1 TABLET BY MOUTH EVERY DAY 30 Tab 0 ??? meclizine (ANTIVERT) 25 mg Oral Tablet Take 1 Tab by mouth every 6 hours. 60 Tab 0 ??? Nebulizer Accessories (ALL FLOW 4000 KIT) [facility] equivalent 1 Each 0 ??? tadalafiL (CIALIS) 5 mg Oral Tablet TAKE 1 TAB BY MOUTH NEEDED FOR ERECTILE DYSFUNCTION 90 Tab 1 ??? tizanidine HCl (TIZANIDINE ORAL) Take by mouth. ??? betamethasone dipropionate (DIPROLENE) 0.05 % Top Ointment Apply topically daily. (Patient not taking: Reported on 08/05/2020) 15 g 2 ??? Garlic Oral Tablet Take by mouth daily. ??? Saccharomyces boulardii (FLORASTOR) 250 mg Oral Capsule Take 1 Cap by mouth 2 times daily. (Patient not taking: Reported on 08/05/2020) 60 Cap 2 ??? TURMERIC ORAL Take by mouth daily. No current facility-administered medications on file prior to visit. Social History Socioeconomic History ??? Marital status: Legally Spouse name: None ??? Number of children: None ??? Years of education: None ??? Highest education level: None Social Needs ??? Financial resource strain: Not hard at all ??? Food insecurity Worry: Never true Inability: Never true ??? Transportation needs Medical: No Non-medical: No Tobacco Use ??? Smoking status: Never Smoker ??? Smokeless tobacco: Current User Types: Snuff Substance and Sexual Activity ??? Alcohol use: No ??? 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 Wellness Exam Medicare 10/07/2021 ??? Colon Cancer Screening: Colonoscopy 08/18/2030 ??? Pneumococcal Vaccine 0-64 (2 of 2) 11/10/2032 ??? Influenza Vaccine Completed ??? Zoster Completed Patient Care Team: Michelle Garrido APRN as PCP - General (Nurse Practitioner) Patient Instructions AWV findings and Plan of Care: Good preventative health care is important in [...] having an Advanced Directives. This is something the patient should have on file, as well as something that we should have on file in our records. If we don't have a copy of your current Advanced Directive, please bring a copy to your next visit. If you have a power of circuit manager or surrogate, we should also have a copy on file. I encourage candid discussion with your family on your wishes in the event that you are incapacitated and unable to participate in direct medical decision making. It is important to stay up to date on recommended vaccinations including Flu, Pneumonia, and Shingles vaccine. Below are other health maintenance topics that are recommended to be closed at your earliest opportunity. You may notice that some of these were addressed in the office today. There are no preventive care reminders to display for this patient. In addition to recommendations to close care gaps noted above additional recommendations as part ofthe Personal Plan of Care are: Fall Risk Assessment Positive - Remove rugs, runners, trip hazards. Functional Status/Social Determinants of Health - Stable, no issues, re-assess 1 year. Depression Screening Negative - Recommend re-assess 1 year. Dementia Screening Negative - Recommend re-assess 1 year. Other: up to date Activity/Exercise - recommend continuing current Additional issues addressed today: Review of Systems Constitutional: Positive for appetite change. Negative for chills, diaphoresis and fever. HENT: Positive for congestion, postnasal drip and rhinorrhea. Negative for sneezing and sore throat. Respiratory: Positive for cough (wet ), chest tightness (due to sinus infection) and wheezing. Cardiovascular: Negative for chest pain and palpitations. Gastrointestinal: Negative for blood in stool, diarrhea, nausea and vomiting. Endocrine: Negative for cold intolerance and heat intolerance. Genitourinary: Negative for difficulty urinating. Musculoskeletal: Positive for arthralgias (OA bilateral knee ). Skin: Negative. Allergic/Immunologic: Positive for environmental allergies. Neurological: Negative for dizziness, light-headedness and headaches. Psychiatric/Behavioral: Negative for self-injury and sleep disturbance. OBJECTIVE: Physical Exam Vitals signs reviewed. Constitutional: Appearance: Normal appearance. HENT: Head: Normocephalic. Eyes: Extraocular Movements: Extraocular movements intact. Conjunctiva/sclera: Conjunctivae normal. Neck: Musculoskeletal: Normal range of motion and neck supple. Cardiovascular: Rate and Rhythm: Normal rate and regular rhythm. Pulses: Normal pulses. Heart sounds: Normal heart sounds. Pulmonary: Effort: Pulmonary effort is normal. Breath sounds: Wheezing ( due to asthma) present. Abdominal: General: Bowel sounds are normal. There is no distension. Palpations: Abdomen is soft. Tenderness: There is no abdominal tenderness. There is no guarding. Skin: General: Skin is warm. Capillary Refill: Capillary refill takes less than 2 seconds. Neurological: General: No focal deficit present. Mental Status: He is alert and oriented to person, place, and time. Psychiatric: Mood and Affect: Mood normal. Behavior: Behavior normal. Thought Content: Thought content normal. Judgment: Judgment normal. Assessment Diagnoses and all orders for this visit: Annual physical exam - COMPREHENSIVE METABOLIC PANEL; Future - LIPID PANEL REFLEX; Future - TSH REFLEX; Future - CBC WITH DIFF; Future Screening for thyroid disorder - TSH REFLEX; Future Screening for cholesterol level - LIPID PANEL REFLEX; Future Screening for endocrine, metabolic, and immunity disorder - COMPREHENSIVE METABOLIC PANEL; Future Screening for deficiency anemia - CBC WITH DIFF; Future Primary osteoarthritis of both knees - methylPREDNISolone acetate (DEPO-Medrol) injection 80 mg - KS ARTHROCENTESIS LARGE JOINT W/O US BILATERAL - KS ARTHROCENTESIS ASPIR&/INJ MAJOR JT/BURSA W/O US - methylPREDNISolone acetate (DEPO-Medrol) injection 80 mg BPH without urinary obstruction - tamsulosin (FLOMAX) 0.4 mg Oral Capsule; Take 2 Caps by mouth nightly. TAKE 1 CAPSULE BY MOUTH EVERY NIGHT Dispense: 180 Cap; Refill: 1 Bronchitis - albuterol (PROVENTIL) 2.5 mg /3 mL (0.083 %) Inhl Solution for Nebulization; Take 3 mL by nebulization every 4 hours as needed for Wheezing. Dispense: 180 mL; Refill: 1 Moderate persistent asthma without complication - fluticasone propionate (FLONASE) 50 mcg/actuation Nasl [place], Suspension; 1 [place] by Nasal route daily. Dispense: 1 Bottle; Refill: 2 - montelukast (SINGULAIR) 10 mg Oral Tablet; Take 1 Tab by mouth nightly. Dispense: 30 Tab; Refill:2 Patient given bilateral knee injections, flomax dosage was increased to 0.8mg, nebulizer treatment script sent in, patient also given flonase and singulair for allergies. Pt to follow up PRN. documented in this encounter Plan of Treatment Upcoming Encounters Date Type Department Care Team (Late st Contact Info) Description 06/28/2024 9:40 AM EST Clinical Support ANTOLIN [place] [address] [place] [phone] 11/19/2024 1:40 PM EDT Office Visit [facility] [place] [address] [place] [phone] Lyndsay Brewer DO [address] [place] [address] Scheduled Orders Name Type Priority Associated Diagnoses Orde r Schedule KS ARTHROCENTESIS LARGE JOINT W/O US BILATERAL [place] Charge Routine Primary osteoarthritis of both knees Ordered: 10/07/2020 KS ARTHROCENTESIS ASPIR&/INJ MAJOR JT/BURSA W/O US [place] Charge Routine Primary osteoarthritis of both knees Ordered: 10/07/2020 documented as of this encounter Goals Goal Patient Goal Type Associated Problems Recent Progress Patient-Stated? Author Blood Pressure < 140/90 Blood Pressure 134/84(2023 1:16 PM EST) Yana Pina RMJane Eat better, exercise, reach an ideal body weight General No Yana Choi RMJane Stay Tobacco Free Lifestyle No Yana Choi RMA documented as of this encounter Results * (ABNORMAL) CBC WITH DIFF (08/02/2021 10:39 AM EST) WBC 5.3 3.7 - 10.3 x10(3)/mcL 08/02/2021 3:57 PM EST [facility] RBC 4.45(L) 4.60 - 6.10 x10(6)/mcL 08/02/2021 3:57 PM EST [facility] Hgb 14.5 13.7 - 17.5 g/dL 08/02/2021 3:57 PM EST [facility] Hct 43.3 40.0 - 51.0 % 08/02/2021 3:57 PM EST [facility] MCV 97.3 80.0 - 100.0 fL 08/02/2021 3:57 PM EST [facility] MCH 32.6 26.0 - 34.0 pg 08/02/2021 3:57 PM EST [facility] MCHC 33.5 30.7 - 35.5 g/dL 08/02/2021 3:57 PM EST [facility] RDW 12.4 <=14.9 % 08/02/2021 3:57 PM EST [facility] Platelet 170 155 - 369 x10(3)/mcL 08/02/2021 3:57 PM EST [facility] MPV 11.1 8.8 - 12.5 fL 08/02/2021 3:57 PM EST [facility] Neut Percent 55.7 % 08/02/2021 3:57 PM EST [facility] Comment:Neutrophils equals s egs plus bands Imm Gran% 0.4 % 08/02/2021 3:57 PM EST [facility] Comment:Automated count of m etamyelocytes, myelocytes and promyelocytes. Lymph Percent 31.1 % 08/02/2021 3:57 PM EST [facility] [place] Percent 9.4 % 08/02/2021 3:57 PM EST [facility] Eos Percent 2.6 % 08/02/2021 3:57 PM EST [facility] Baso Percent 0.8 % 08/02/2021 3:57 PM EST [facility] Neut # 3.0 1.6 - 6.1 x10(3)/[facility] 08/02/2021 3:57 PM EST [facility] Comment:Neutrophils equals s egs plus bands IMMGRAN# 0.0 0.0 - 0.1 x10(3)/mcL 08/02/2021 3:57 PM EST [facility] Comment:Automated count of m etamyelocytes, myelocytes and promyelocytes. An absolute IG <0.1 is reported as 0.0. Lymph # 1.7 1.2 - 3.9 x10(3)/mcL 08/02/2021 3:57 PM EST [facility] [place] # 0.5 0.3 - 0.9 x10(3)/mcL 08/02/2021 3:57 PM EST [facility] Eos# 0.1 0.0 - 0.5 x10(3)/[facility] 08/02/2021 3:57 PM EST [facility] Baso # 0.0 0.0 - 0.1 x10(3)/[facility] 08/02/2021 3:57 PM EST [facility] Blood VENOUS BLOOD / Unknown Venipuncture / Unknown 08/02/2021 10:39 AM EST 08/02/2021 10:39 AM EST us Michelle Garrido PROGRESS DEVELOPER HEMATOLOGY ORDERABLES Final Result [facility] [address] , [place] [address] * TSH REFLEX (08/02/2021 8:26 AM EST) TSH Reflex 1.800 0.270 - 4.200 mcIU/mL 08/02/2021 4:54 PM EST [facility] Blood VENOUS BLOOD / Unknown Venipuncture / Unknown 08/02/2021 8:26 AM EST 08/02/2021 8:26 AM EST Narrative [facility] - 08/02/2021 4:54 PM EST Ingestion of john doses of biotin (>5 mg/day) taken within 8 hours of drawing blood sample can interfere with this immunoassay test. us Michelle Garrido PROGRESS DEVELOPER CHEMISTRY ORDERABLES Final R esult [facility] [address] , [address] [place] [id number] * (ABNORMAL) LIPID PANEL REFLEX (08/02/2021 8:26 AM EST) Cholesterol 194 <200 mg/dL 08/02/2021 4:54 PM EST [facility] Comment: < 200 ?Desirable 200 - 239 ? Borderline High >= 240 ?High Triglyceride 147 <150 mg/dL 08/02/2021 4:54 PM EST [facility] Comment: < 150 ? Normal 150 - 199 ?Borderline High 200 - 499 ?High ??>= 500 ? Very High HDL 37(L) >=40 mg/dL 08/02/2021 4:54 PM EST [facility] Comment: ??> 60 ?Optimal 40 - 60 ?Acceptable ?? < 40 ?Low LDL Calculated 130(H) <100 mg/dL 08/02/2021 4:54 PM EST [facility] Non-HDL-C Calculated 157(H) <=129 mg/dL 08/02/2021 4:54 PM EST [facility] Comment: <130 ?Desirable 130-159 Above Desirable 160-189 Borderline High 190-219 High >= 220 ??Very High Fasting Specimen? Yes None 022 4:54 PM EST [facility] Blood VENOUS BLOOD / Unknown Venipuncture / Unknown 08/02/2021 8:26 AM EST 08/02/2021 8:26 AM EST us Michelle Garrido PROGRESS DEVELOPER CHEMISTRY ORDERABLES Final R esult [facility] [address] , [place] [address] [facility] [address] [place] [address] documented in this encounter Visit Diagnoses Diagnosis Annual physical exam- Primary Routine general medical examination at a health care facility Screening for thyroid disorder Screening for cholesterol level Screening for lipoid disorders Screening for endocrine, metabolic, and immunity disorder Screening for deficiency anemia Screening for other and unspecified deficiency anemia Primary osteoarthritis of both knees Primary localized osteoarthrosis, lower leg BPH without urinary obstruction Hypertrophy of prostate without urinary obstruction and other lower urinary tract symptoms (LUTS) Bronchitis Bronchitis, not specified as acute or chronic Moderate persistent asthma without complication Unspecified asthma documented in this encounter Discontinued Medications Medication Sig Discontinue Reason Start Date End Da te amoxicillin-clavulanat e (AUGMENTIN) 875-125 mg Oral TabletIndications:Acut e bacterial sinusitis Take 1 Tab by mouth 2 times daily. DELETE-Therapy completed 09/24/2020 10/07/2020 predniSONE (DELTASONE) 10 mg Oral TabletIndications:Mode rate persistent asthma with exacerbation Take 4 tabs once daily for 2 days, then 3 tabs daily x2 days, then 2 tabs daily x2 days and then 1 tab daily x2 days. DELETE-Therapy completed 09/10/2020 10/07/2020 cyclobenzaprine (FLEXERIL) 10 mg Oral TabletIndications:Stra in of left calf muscle TAKE 1 TAB BY MOUTH EVERY 8 HOURS NEEDED FOR MUSCLE SPASMS FOR UP TO 30 DAYS. Side effects 09/09/2020 10/07/2020 tamsulosin (FLOMAX) 0.4 mg Oral CapsuleIndications:BPH without urinary obstruction TAKE 1 CAPSULE BY MOUTH EVERY NIGHT 07/20/2020 10/07/2020 Nebulizers (SANG BABY NEBULIZER) [facility] equivalent DELETE- Entered in Error 06/27/2012 10/07/2020 albuterol (PROVENTIL) 2.5 mg /3 mL (0.083 %) Inhl Solution for NebulizationIndication s:Bronchitis Take 3 mL by nebulization every 4 hours as needed for Wheezing. Reorder 10/02/2020 10/07/2020 documented as of this encounter Historical Medications * This list may reflect changes made after this encounter. tizanidine HCl (TIZANIDINE ORAL) Take by mouth. 07/26/2021 FIBER CHOICE ORAL Take by mouth. 01/15/2021 added in this encounter Orders Medications Ordered That Tone ht Not Have Been Administered Count Last Ordered Date First Ordered Date methylPREDNISolone acetate ( DEPO-Medrol) injection 80 mg 4 10/12/2020 10/07/2020 documented in this encounter Care Teams [employer] In[employer] Servicer Relationship Specialty Start Date End Date Michelle Garrido APRN PCP - General Nurse Practitioner 01/09/17 01/14/21 documented as of this encounter
--- OUTSIDE RECORDS SUMMARY | 2024-05-29 15:44 | XMS_ITS | Encounter Summary ---
Author Organization [place] [address] Care Team Providers Care Mononitrotoluene Operator Name Role Phone Michelle Garrido APRN Primary Care Provider Unava ilable Reason for Visit * Reason Onset Date Comments Other 08/17/2020 Encounter Details Date Type Department Care Team (Late st Contact Info) Description 08/17/2020 Telephone [facility] [address] [place] [address] Alfredito Durán, GEENA Other Social History Tobacco Use Types Packs/Day [...] have Coronavirus / COVID-19? No / Unsure 08/14/2020 3:05 PM EST documented as of this encounter Functional [...] Author No 07/03/2019 8:15 AM EST Maddy WhiteESTEFANY documented as of this encounter Mental Status * Because of a physical, mental or emotional condition, does this person have serious difficulty concentrating, remembering or making decisions? Answer Entry Date Author No 07/03/2019 8:15 AM AIMEE WhiteMaddy RMA documented in this encounter Miscellaneous Notes * Telephone Encounter - Alfredito Durán LPN - 08/17/2020 12:31 PM EST Pt called stating he didn't know what prep he was suppose to take for his colonoscopy. I instructedpt to get his paperwork. I asked him if it said what prep it was on the top of the paperwork. He stated it didn't. So I then asked if he would look about have way down his paper & tell me what itsays. He starts telling me about avoiding seeds. I told him to turn his paper over & instructed him to look down where it says bowel prep. He found it & I went over the instructions w/him. Heverbalized understanding. documented in this encounter Plan of Treatment Upcoming Encounters Date Type Department Care Team (Late st Contact Info) Description 06/28/2024 9:40 AM EST Clinical Support [facility] [address] [place] [phone] 11/19/2024 1:40 PM EDT Office Visit [facility] [address] [place] [address] Osman Lyndsay Lynn, DO [address] [place] [address] documented as of this encounter [...] on filedocumented in this encounter Care Teams Mononitrotoluene Operator Relationship Specialty Start Date End Date Michelle Garrido APRN PCP - General Nurse Practitioner 01/09/17 01/14/21 documented as of this encounter
--- OUTSIDE RECORDS SUMMARY | 2024-05-29 15:44 | XMS_ITS | Encounter Summary ---
Author Organization [place] [address] Care Team Providers Care Security Operations Analyst Name Role Phone Michelle Garrido APRN Primary Care Provider Unava ilable Reason for Visit * Reason Comments Medication Refill Encounter Details Date Type Department Care Team (Late st Contact Info) Description 09/25/2020 Refill [facility] [address] [place] [address] Michelel Garrido APRN Medication Refill Social History Tobacco [...] Entry Date Author No 07/03/2019 8:15 AM Madyd Snow RMA documented in this encounter Ordered Prescriptions Prescription Sig Dispense Quantity Refills Last Filled Start Date End Date losartan (COZAAR) 50 mg Oral Tablet TAKE 1 TABLET BY MOUTH EVERY DAY 30 Tab 09/25/2020 1 hydroCHLOROthiazid e (MICROZIDE) 12.5 mg Oral Capsule TAKE 1 CAPSULE BY MOUTH EVERY DAY 30 Cap 09/25/2020 1 documented in this encounter Miscellaneous Notes * Telephone Encounter - Edith Isidro CPhT - 09/25/2020 4:17 PM EDT losartan Medication Refill Protocol failed due to appointment. 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 Patient already received two carter 30-day supplies of medication. Routed to office staff for outreach to schedule appointment. hydroCHLOROthiazide Medication Refill Protocol failed due to appointment. 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 Patient already received two carter 30-day supplies of medication. Routed to office staff for outreach to schedule appointment. documented in this encounter Plan of Treatment Upcoming Encounters Date Type Department Care Team (Late st Contact Info) Description 06/28/2024 9:40 AM EST Clinical Support [facility] [address] [place] [phone] 11/19/2024 1:40 PM EDT Office Visit [facility] [address] [place] [address] Lyndsay Brewer DO [address] [place] [address] documented as of [...] TAKE 1 CAPSULE BY MOUTH EVERY DAY 08/26/2020 09/25/2020 losartan (COZAAR) 50 mg Oral Tablet TAKE 1 TABLET BY MOUTH EVERY DAY 08/26/2020 09/25/2020 documented as of this encounter Care Teams Security Operations Analyst Relationship Specialty Start Date End Date Michelle Garrido APRN PCP - General Nurse Practitioner 01/09/17 01/14/21 documented as of this encounter
--- OUTSIDE RECORDS SUMMARY | 2024-05-29 15:44 | XMS_ITS | Encounter Summary ---
Author Organization [place] [address] Care Team Providers Care Bill Checker Name Role Phone Michelle Garrido APRN Primary Care Provider Unava ilable Reason for Visit * Reason Comments Medication Refill Encounter Details Date Type Department Care Team (Late st Contact Info) Description 09/09/2020 Refill [facility] [address] [place] [address] Michelle Garrido APRN Medication Refill [...] Refills Last Filled Start Date End Date cyclobenzaprine (FLEXERIL) 10 mg Oral TabletIndications: Strain of left calf muscle TAKE 1 TAB BY MOUTH EVERY 8 HOURS NEEDED FOR MUSCLE SPASMS FOR UP TO 30 DAYS. 90 Tab 1 09/09/2020 10/07/2020 documented in this encounter Plan of Treatment Upcoming Encounters Date Type Department Care Team (Late st Contact Info) Description 06/28/2024 9:40 AM EST Clinical Support [facility] [address] [place] [phone] 11/19/2024 1:40 PM EDT Office Visit [facility] [address] [place] [address] Lyndsay Brewer DO [address] [place] [address] documented as of this encounter Goals Goal Patient Goal Type Associated Problems Recent Progress Patient-Stated? Author Blood Pressure < 140/90 Blood Pressure 134/84(2023 1:16 PM EST) Yana Pina RMA Eat better, exercise, reach an ideal body weight General No Yana Choi RMA Stay Tobacco Free Lifestyle No Yana Choi RMA documented as of this encounter Visit Diagnoses Diagnosis Strain of left calf muscle documented in this encounter Discontinued Medications Medication Sig Discontinue Reason Start Date End Da te cyclobenzaprine (FLEXERIL) 10 mg Oral TabletIndications:Strain of left calf muscle TAKE 1 TAB BY MOUTH EVERY 8 HOURS NEEDED FOR MUSCLE SPASMS FOR UP TO 30 DAYS. 06/08/2020 09/09/2020 documented as of this encounter Care Teams Bill Checker Relationship Specialty Start Date End Date Michelle Garrido APRN PCP - General Nurse Practitioner 01/09/17 01/14/21 documented as of this encounter
--- OUTSIDE RECORDS SUMMARY | 2024-05-29 15:44 | XMS_ITS | Encounter Summary ---
Author Organization [place] [address] Care Team Providers Care Industrial Machine Operator Name Role Phone Michelle Garrido APRN Primary Care Provider Willie aguila Encounter Details Date Type Department Care Team (Late st Contact Info) Description 09/24/2020 10:00 AM EDT Telemedicine [facility] [address] [place] [address] Ligia Wiley MD [address] [place] [address] Acute bacterial sinusitis (Primary Dx) Social History [...] of Assessment Author No 07/03/2019 8:15 AM AIMEE White ESTEFANY Castañeda * Does this person have serious difficulty walking or climbing stairs? Answer Date of Assessment Author No 07/03/2019 8:15 AM AIMEE WhiteMaddy ESTEFANY * Does this person have difficulty dressing or bathing? Answer Date of Assessment Author No 07/03/2019 8:15 AM AIMEE White ESTEFANY Castañeda * Because of a physical, mental or emotional condition, does this person have difficulty doing errands alone such as visiting a doctor's office or shopping? Answer Date of Assessment Author No 07/03/2019 8:15 AM AIMEE Darlin Whiteiley ESTEFANY documented as of this encounter Mental Status * Because of a physical, mental or emotional condition, does this person have serious difficulty concentrating, remembering or making decisions? Answer Entry Date Author No 07/03/2019 8:15 AM AIMEE Christopher Maddy ESTEFANY documented in this encounter Ordered Prescriptions Prescription Sig Dispense Quantity Refills Last Filled Start Date End Date amoxicillin-clavula eleazar (AUGMENTIN) 875-125 mg Oral TabletIndications:A cute bacterial sinusitis Take 1 Tab by mouth 2 times daily. 14 Tab 09/24/2020 10/07/2020 documented in this encounter Progress Notes * Ligia Wiley MD - 09/24/2020 10:00 AM EDT Patient presented today for routine care follow-up through a video visit. Patient has reviewed the terms and conditions of service as part of the registration for today's visit. A video visit does not replace a [id number] exam and further services may be necessary. We are conducting his video visit in a private space and this video visit is being conducted in accordance with state telehealth/video visit regulations. HPI: URI/Sinus symptoms: ?? complains of congestion, productive cough and sore throat for 14 days. ?? Associated symptoms include cough and sputum production. ?? Symptom severity is described as Moderate and show no change. ?? What treatments have you tried at home? albuterol ?? Are home treatments impacting your symptoms at all? Helps with sob and wheezing ?? Do you get recurrent or seasonal symptoms multiple times per year? yes ?? Do you have any history of lung disease, asthma, or recurrent allergies? yes ?? The Patient does not smoke cigarettes. Just finished steroids 1 week ago. He has been using nebulizer. States when he was using the steroids he was improving with breathing. Review of Systems Constitutional: Positive for fatigue. Negative for chills and fever. HENT: Positive for congestion, rhinorrhea and sinus pressure. Respiratory: Positive for cough. Negative for shortness of breath and wheezing. Cardiovascular: Negative for chest pain. Gastrointestinal: Negative for abdominal pain, constipation, diarrhea, nausea and vomiting. Skin: Negative for rash. Neurological: Positive for headaches. Exam: Constitutional: NAD, appropriately groomed. Appears comfortable. [...] for this visit: Acute bacterial sinusitis - amoxicillin-clavulanate (AUGMENTIN) 875-125 mg Oral Tablet; Take 1 Tab by mouth 2 times daily. Dispense: 14 Tab; Refill: 0 documented in this encounter Plan of Treatment Upcoming Encounters Date Type Department Care Team (Late st Contact Info) Description 06/28/2024 9:40 AM EST Clinical Support [facility] [address] [place] [phone] 11/19/2024 1:40 PM EDT Office Visit [facility] [address] [place] [phone] Osman Lyndsaydale Fish, DO [address] [place] [address] documented as of this encounter Goals Goal [...] unspecified documented in this encounter Care Teams Industrial Machine Operator Relationship Specialty Start Date End Date Michelle Garrido APRN PCP - General Nurse Practitioner 01/09/17 01/14/21 documented as of this encounter
--- OUTSIDE RECORDS SUMMARY | 2024-05-29 15:44 | XMS_ITS | Encounter Summary ---
Author Organization [place] [address] Care Team Providers Care Garbage Pick Up Man Name Role Phone Michelle Garrido APRN Primary Care Provider Unava ilable Reason for Visit * Reason Comments Medication Refill Encounter Details Date Type Department Care Team (Late st Contact Info) Description 09/12/2020 Refill [facility] [address] [place] [address] Michelle Garrido APRN Medication [...] Assessment Author No 07/03/2019 8:15 AM AIMEE Maddy White RMA * Is the person [...] Assessment Author No 07/03/2019 8:15 AM Maddy SnowESTEFANY documented as of this encounter Mental Status * Because of a physical, mental or emotional condition, does this person have serious difficulty concentrating, remembering or making decisions? Answer Entry Date Author No 07/03/2019 8:15 AM AIMEE Maddy White RMA documented in this encounter Ordered Prescriptions Prescription Sig Dispense Quantity Refills Last Filled Start Date End Date albuterol (VENTOLIN HFA) 90 mcg/actuation Inhl HFA Aerosol InhalerIndications :Encounter for medication refill INHALE 1 TO 2 PUFFS EVERY 4 HOURS NEEDED FOR WHEEZING. 54 Inhaler 09/14/2020 01/20/2021 documented in this encounter Plan of Treatment Upcoming Encounters Date Type Department Care Team (Late st Contact Info) Description 06/28/2024 9:40 AM EST Clinical Support [facility] [address] [place] [place] [phone] 11/19/2024 1:40 PM EDT Office Visit [facility] [address] [place] [address] Lyndsay Brewer, DO [address] [place] [address] documented as of this encounter Goals Goal Patient Goal Type Associated Problems Recent Progress Patient-Stated? Author Blood Pressure < 140/90 Blood Pressure 134/84(2023 1:16 PM EST) No Yana Choi RMA Eat better, exercise, reach an ideal body weight General No Yana Choi RMA Stay Tobacco Free Lifestyle No Yana hCoi RMA documented as of this encounter Visit Diagnoses Diagnosis Encounter for medication refill Issue of repeat prescriptions documented in this encounter Discontinued Medications Medication Sig Discontinue Reason Start Date End Da te albuterol (VENTOLIN HFA) 90 mcg/actuation Inhl HFA Aerosol InhalerIndications:Encou nter for medication refill INHALE 1 TO 2 PUFFS EVERY 4 HOURS NEEDED FOR WHEEZING. 08/03/2020 09/14/2020 documented as of this encounter Care Teams Garbage Pick Up Man Relationship Specialty Start Date End Date Michelle Garrido APRN PCP - General Nurse Practitioner 01/09/17 01/14/21 documented as of this encounter
--- OUTSIDE RECORDS SUMMARY | 2024-05-29 15:44 | XMS_ITS | Encounter Summary ---
Author Organization [place] [address] Care Team Providers Care Rabbit Breeder Name Role Phone Michelle Garrido APRN Primary Care Provider Unava ilable Reason for Visit * Auth/Cert/Inpt Specialty Diagnoses / Procedures Referred By Contac t Referred To Contact Diagnoses Rectal bleeding Diarrhea, unspecified type Rectal bleeding [K62.5] Diarrhea, unspecified type [R19.7] Procedures [place] COLONOSCOPY FLX DX W/COLLJ SPEC WHEN PFRMD Colonoscopy with possible biopsy and/or polypectomy Referral ID Status Reason Start Date Expiration Date Visits Re quested Visits Authorized [id number] 1 1 Encounter Details Date Type Department Care Team (Latest Contact Info) Description 08/18/2020 9:07 AM EST - 08/18/2020 1:16 PM [facility] Hospital Encounter [facility] [address] [place] [address] Michael Mckeon MD [address] [place], [place] [id number] Rectal bleeding; Diarrhea; Diarrhea, unspecified type; Rectal bleeding Discharge Disposition: Home or Self Care Social [...] Sign Reading Time Taken Comments Blood Pressure 107/73 08/18/2020 1:09 PM EST Pulse 62 08/18/2020 1:09 PM EST Temperature 36.2 ??C (97.2 ??F) 08/18/2020 12:[address] Respiratory Rate 18 08/18/2020 1:09 PM EST Oxygen Saturation 92% 08/18/2020 1:09 PM EST Inhaled Oxygen Concentration - - Weight 90.7 kg (200 lb) 08/18/2020 10:05 AM EST Height 170.2 cm (5' 7 ) 08/18/2020 10:05 AM EST Body Mass Index 31.32 08/18/2020 10:05 AM EST documented in this encounter Functional [...] Maddy White RMA documented in this encounter Discharge Instructions * Discharge Instructions* Waldemar RomanJUDITH - 08/18/2020 1:03 PM EST [facility] Discharge Instructions - Following Endoscopy 1. A responsible adult, 18 years or older must be in attendance until the next A.M. 2. Rest quietly today. 3. May resume usual diet. 4. Do not drive or operate any machinery until the next A.M., or as instructed. 5. No alcoholic beverages for 24 hours. 6. Do not make any legal or important decisions for the next 24 hours. 7. Call the physician???s office for a follow-up visit or with questions 8. Patient discharged to the care of [place]; significant other ADDITIONAL INSTRUCTIONS: Call Dr. Jerel Herr at [phone] if the following occurs: Colonoscopy: Severe abdominal pains and swelling (mild abdominal cramps and gas pains can be expected), nausea and vomiting, rectal bleeding (with biopsy or polyps a small amount of blood can be expected), body temp. over 101 degrees, chills. Other Instructions: Normal mucosa in the terminal ileum. ??Normal mucosa in the whole colon. (Biopsy). ??Moderate diverticulosis of the the left side of the colon. ??Internal and external hemorrhoids. ??Polyp (6 mm) in the ascending colon. (Polypectomy). Plan: Await pathology results Colonoscopy in 5 years due to family history. office visit after results are back to discuss findings Medications Reviewed No Changes Copy of Discharge Medication Instruction Sheet Given Rx: none +++++++++++++++++++++++++++++++++++++++++++++++++++++++++++++++++++ [facility] Discharge Instructions - Following Anesthesia We appreciate the opportunity to care for you today! Here are a few reminders as you head home: ?? A responsible adult, 18 years or older must be in attendance until tomorrow morning. ?? Rest quietly today. ?? May resume usual diet as tolerated or as directed by your surgeon. ?? Do not drive or operate any machinery until tomorrow morning or as instructed. ?? Do not make any legal or important decisions for the next 24 hours. ?? Do not drink alcoholic beverages or take sleeping pills for 24 hours unless otherwise directed. ?? If you received a nerve block for post-operative pain control, protect your blocked arm/leg. It is numb. Carefully pad your limb to prevent pressure sores and other injuries. Be careful with applying cold/warm to the blocked limb. Numbness will alter the sensation of the limb and could damage your skin if you cannot correctly feel the temperature. ?? If you have questions or concerns regarding your anesthesia experience, please call our office at . Get Well Soon! [facility] +++++++++++++++++++++++++++++++++++++++++++++++++++++++++++++++++++ documented in this encounter Medications at Time of Discharge Nebulizer Accessories (ALL FLOW 4000 KIT) [facility] [facility] [place] 1 Each 0 06/27/2012 ADVAIR DISKUS 500-50 mcg/dose Inhl Disk with DeviceIndications: Encounter for medication refill TAKE 1 PUFF BY MOUTH TWICE A DAY 180 Each 1 08/05/2020 1 albuterol (VENTOLIN HFA) 90 mcg/actuation Inhl HFA Aerosol InhalerIndications :Encounter for medication refill INHALE 1 TO 2 PUFFS EVERY 4 HOURS NEEDED FOR WHEEZING. 54 Inhaler 08/03/2020 1 betamethasone dipropionate (DIPROLENE) 0.05 % Top OintmentIndication s:Psoriasis Apply topically daily. 15 g 2 01/13/2020 1 cyclobenzaprine (FLEXERIL) 10 mg Oral TabletIndications: Strain of left calf muscle TAKE 1 TAB BY MOUTH EVERY 8 HOURS NEEDED FOR MUSCLE SPASMS FOR UP TO 30 DAYS. 90 Tab 1 06/08/2020 1 hydroCHLOROthiazid e (MICROZIDE) 12.5 mg Oral Capsule TAKE 1 CAPSULE BY MOUTH EVERY DAY 30 Cap 07/31/2020 1 losartan (COZAAR) 50 mg Oral Tablet TAKE 1 TABLET BY MOUTH EVERY DAY 30 Tab 07/31/2020 1 tadalafiL (CIALIS) 5 mg Oral TabletIndications: BPH without urinary obstruction TAKE 1 TAB BY MOUTH NEEDED FOR ERECTILE DYSFUNCTION 90 Tab 1 07/06/2020 1 tamsulosin (FLOMAX) 0.4 mg Oral CapsuleIndications :BPH without urinary obstruction TAKE 1 CAPSULE BY MOUTH EVERY NIGHT 90 Cap 1 07/20/2020 1 documented as of this encounter Discharge Disposition Disposition Code Departure Means Destination Home or Self Snf documented in this encounter H&P Notes * Michael Mckeon MD - 08/18/2020 10:45 AM EST Procedure: Colonoscopy ASA: 2 Mallampati: 2 Allergies: Allergies Allergen Reactions Abilify [Aripiprazole] Other (See Comments) convulsions Unable To Assess Patient does not take any narcotic medications Previous anesthesia reaction: No Pre-Procedure Assessment: Risks, benefits, potential complications and alternatives discussed with the patients legally authorized operations representative. The patient's pre-procedure physical assessment indicates that the patient is suitable candidate for and agrees to the planned sedation and procedure. NPO as ordered for procedure: Yes Cardiovascular and Vital signs Stable: yes Comment: Adequate/Patient Oral Airway yes Comment: H&P Update History and Physical within 30 days and on chart? yes I have reviewed the H&P and examined the patient. Changes? no List: Additional Findings: none This update is in reference to H&P performed by wa on 07/30/20 Physician Signature: Michael Herr MD Date:08/18/2020 Time:10:53 AM Source Note - Michael Mckeon MD - 07/30/2020 8:00 AM EST [facility] Gastro[facility]ology Video Consult Note 07/30/2020 This was completed as a video visit [...] that this does not replace a face toface encounter. Primary Care Physician: Michelle Garrido APRN Reason for referral: Diarrhea and rectal bleeding History of Presenting Illness Zuhair Whitlock is a(n) 54 y.o. White or [1] male asked to see us in consultation by Michelle Garrido APRN for evaluation of diarrhea and rectal bleeding. Years long history of diarrhea. Up to 20 BM per days. He has rectal bleeding for few days at a time, episodes are not very frequent though, probably onceevery few months. Resolve on their own. No abdominal pain. No upper GI symptoms. 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 Father with colon cancer Prior Endoscopies: colonoscopy in 2015. Results not available Allergies: Allergies Allergen Reactions ??? Abilify [Aripiprazole] [...] Past Surgical History: Procedure Laterality Date ??? ELBOW SURGERY LEFT LIGAMENT REPAIR ??? EYE SURGERY RIGHT RETINA REPAIR WITH BUCKLE ??? FRACTURE SURGERY left leg, after accident ??? HERNIA REPAIR RIGHT INGUINAL WITH MESH ??? HIP ARTHROPLASTY Left 07/26/2017 LEFT TOTAL HIP ARTHROPLASTY- REVISION-ANTERIOR ; Surgeon: Augie Ramires MD; Location: [facility] OR; Service: Orthopedics ??? KNEE SURGERY LEFT ACL RECONSTRUCTION ??? KNEE SURGERY LEFT ARTHROSCOPIES IRRAGATION X 7 FOR INFECTION ??? KNEE SURGERY RIGHT ARTHROSCOPIC MENICUS REPAIR ??? SHOULDER ARTHROSCOPY Right 11/29/2019 RIGHT SHOULDER ARTHROSCOPIC ROTATOR CUFF REPAIR DECOMPRESSION ACROMIOPLASTY, ACROMIOCLAVICULAR JOINT EXCISION; Surgeon: Kenny Loja MD; Location: [facility]; Service: Orthopedics ??? TOTAL HIP ARTHROPLASTY Left 2009 Family History: Family History Problem Relation Age of Onset ??? Diabetes Mother ??? Heart Disease Mother ??? High Blood Pressure Mother ??? High Cholesterol Mother ??? Cancer Father 40 stomach ??? Diabetes Sister ??? No Known Problems Brother ??? Diabetes Maternal Grandmother Social History: Social History Tobacco Use ??? Smoking status: Never Smoker ??? Smokeless tobacco: Current User Types: Snuff Substance Use Topics ??? Alcohol use: No ??? Drug use: No Comment: in past stated been in recovery for 6 years 2013 ROS Review of Systems Constitutional: Negative for chills, fever, malaise/fatigue and weight loss. HENT: Negative for congestion, ear pain, nosebleeds and sore throat. Eyes: Negative for blurred vision and redness. Respiratory: Negative for hemoptysis and shortness of breath. Cardiovascular: Negative for chest pain and palpitations. Genitourinary: Negative for dysuria and hematuria. Musculoskeletal: Negative for falls, joint pain and myalgias. Skin: Negative for itching and rash. Neurological: Negative for dizziness, focal weakness and loss of consciousness. Endo/Heme/Allergies: Negative for polydipsia. Does not bruise/bleed easily. Psychiatric/Behavioral: Negative for depression. The patient is not nervous/anxious. PHYSICAL EXAM: VITAL SIGNS: Ht 5' 7 (1.702 m) Wt 205 lb (93 kg) BMI 32.11 kg/m?? GA: Alert, well appearing, no distress Speaking in full sentences comfortably, HEENT: non icteric sclerae; moist mucous membranes Lungs: normal work of breathing, no cough during visit Skin: no rash on her neck or face Neuro: No confusion, normal mentation, alert and awake. Psych: Normal affect and mood Laboratory: Lab Results Component Value Date WBC 5.6 06/17/2020 HGB 14.4 06/17/2020 HCT 42.5 06/17/2020 MCV 97.0 06/17/2020 PLT 177 06/17/2020 Lab Results Component Value Date ALT 26 08/06/2019 AST 31 08/06/2019 ALKPHOS 94 08/06/2019 PROT 7.3 08/06/2019 INR 0.91 07/17/2017 Lab Results Component Value Date CREATININE 1.01 06/17/2020 BUN 14 06/17/2020 NA 141 06/17/2020 K 4.3 06/17/2020 CL 107 06/17/2020 CO2 25 06/17/2020 Lab Results Component Value Date INR 0.91 07/17/2017 ASSESSMENT AND PLAN Rectal bleeding Diarrhea, unspecified type Family history of colon cancer, father. - AMB COLON W ANESTH COMM ORDER - c diff testing - He has tried Viberzi in the past with no significant benefits. Thank you Michelle Garrido APRN for asking me to see Zuhair Whitlock in consultation Michael Herr MD Intensive Care Unit Nurse [facility] [phone] documented in this encounter Nursing Notes * Jacinda Tinoco, JUDITH - 08/05/2020 1:58 PM EST Images from the original note were not included. PREPARING FOR YOUR SURGERY Date of Surgery 08/18/2020 Medications ??? Take the following pills with a small sip of water on the morning of surgery: none ??? Aspirin, coumadin, blood thinners, ibuprofen, Plavix, fish oil, vitamin E, any supplements, andany anti-inflammatory products may be stopped as directed by your physician. Food, Drinks, Tobacco ?? For your safety, do not eat any food after midnight. This includes gum, mints, candy, chewing tobacco, and dip. You may consume water, Gatorade, Powerade, black coffee/tea (no milk, no cream/creamers, no sugar) up to two hours prior to your arrival time. No exceptions or substitutions may be made to these restrictions. ??? For tobacco users: do not smoke or use any type of tobacco products within 24 hours prior to surgery. Smoking will also slow your rate of healing, so it is advised that you do not smoke during the healing process. No beer, wine or alcohol 24 hours prior to surgery. ??? Review instructions provided by your surgeon. Camp Housekeeper ??? On the day of surgery, it is important to have a Camp Housekeeper, someone who is 18 years or older, to accompany you and remain in the facility for the duration of your surgery. This person should be available for the Perioperative Team, which includes your surgeon, to communicate with before, during and after your surgery. Someone should also remain with you for [address] you and make sure you are SAFE during that time. ??? A parent must accompany a child scheduled for surgery and plan to stay at the hospital until the child is discharged. If your infant takes a special type of nipple or baby bottle, please bring that with you. If your child has a favorite security item such as a blanket or a special toy, please feel free to bring that with you. ??? Please do not bring children with you to the hospital or surgery center. Hygiene ??? You may brush your teeth and gargle the morning of surgery. Do not swallow water. ??? Please shower the morning of surgery or the night before. Do not wear makeup (including eye makeup) lotion, powder or deodorant. Please do not shave the operative extremity or near the operative extremity. ??? Nail kyrgyz must be removed from operative extremity. Personal Items ??? Please wear simple, loose fitting clothing to the hospital. Do not bring valuables (money, credit cards, check books, etc.) or wear any jewelry on day of surgery. Remove all body piercings prior to arrival. All jewelry must be removed to avoid injury. We will not tape wedding rings/bands. ??? If you have dentures, they may be removed before going into the operating room, and we will provide a container for them. If you wear contact lenses or glasses, they must be removed. Please bringa case for them. ??? Do not remove hearing aids. You will wear them to surgery. Bring with You ?? If you have a Living Will and Durable Power of Plastic Outfitter for Healthcare, please bring a copy. ??? If having surgery at the hospital and you wear CPAP or BIPAP, please bring your mask and the machine settings (not the actual machine) with you to the hospital on the day of your procedure. The hospital will supply a machine to use during your hospital stay. ??? If your procedure is taking place at a surgery center, you must bring your CPAP or BIPAP with you. ??? If you wear oxygen, please bring it with you to use during your travel to and from the hospital. Following your admission, the hospital will supply oxygen for your use. Notify the Surgeon ??? For your safety, notify your surgeon if you develop any illness between now and surgery time --cough, cold, fever, sore throat, nausea, vomiting, etc. Questions or Concerns? If you have any questions or concerns, feel free to call the contact number. We want to make sure you feel safe and have an excellent experience while you are here. Endoscopy - [facility] [place] at [phone]; [facility]: Main Entrance 1A, stop at frontend engineer and [address] will be [address] [place] [address] [place] [address] documented in this encounter Plan of Treatment Upcoming Encounters Date Type Department Care Team (Late st Contact Info) Description 06/28/2024 9:40 AM EST Clinical Support ANTOLIN [place] [address] [place] GUILLERMO [place]ette [phone] 11/19/2024 1:40 PM EDT Office Visit SEP Neurology [facility] [address] [place], [place] [address] [facility] [place] [address] Lyndsay Brewer, DO [address] [place] [address] documented as of this encounter [...] Procedure Name Priority Date/Time Associated Diagnosis Comments PATHOLOGY TISSUE REQUEST Routine 08/18/2020 12:24 PM EST Rectal bleeding Diarrhea, unspecified type COLONOSCOPY-ENDO DEPT ONLY (ANESTHESIA) 08/18/2020 12:12 PM EST Rectal bleeding Diarrhea, unspecified type [facility] COLONOSCOPY Routine 08/18/2020 10:4 5 AM EST documented in this encounter Results * PATHOLOGY TISSUE REQUEST (08/18/2020 12:24 PM EST) CASE REPORT Surgical Pathology ?Case: [id number] ? Authorizing Provider: ??Michael Mckeon MD ?Collected: ? 08/18/2020 1224 ? Ordering Location: ? [facility] ?Received: ?08/18/2020 1410 ? Pathologist: ? Donnell Finney MD ? Specimens: ?? A) - Large Intestine, Right/Ascending Colon, Ascending colon polyp via cold snare ? B) - Colon, Random colon biopsy via forceps ? 08/19/2020 10:21 AM [facility] FINAL DIAGNOSIS A) Ascending Colon Polyp: - Multiple Fragments of Sessile Serrated Polyp, Negative For High-Grade Dysplasia. B) Random Colon Biopsy: - Colonic Mucosa, Normal Crypt Architecture, Focal Lymphoid Aggregates. - Negative For Microscopic/Lymp hocytic Colitis. - Specific Architectural and Inflammatory Changes Absent. 08/19/2020 10:21 AM [facility] OSCOPIC DESCRIPTION Microscopic examination is performed and the findings corroborate the diagnosis. 08/19/2020 10:21 AM [facility] EMBEDDED IMAGES 08/19/2020 10:21 AM [facility] GROSS DESCRIPTION Part A) Received in formalin labeled with the patient? s name and ? ascending colon polyp? are multiple fragments of hernandes tissue ranging from 0.2 to 0.5 cm in greatest dimension. Entirely submitted in one cassette. / ZN Part B) Received in formalin labeled with the patient? s name and ? random colon biopsy? are multiple fragments of hernandes tissue ranging from 0.2 to 0.5 cm in greatest dimension. Entirely submitted in one cassette. / ZN 08/19/2020 10:21 AM [facility] Tissue ASCENDING COLON STRUCTURE / Unknown 08/18/2020 12:24 PM EST 08/18/2020 2:10 PM EST Tissue specimen (specimen) COLON STRUCTURE / Unknown 08/18/2020 12:25 PM EST 08/18/2020 2:06 PM EST us Michael Herr MD PATHOLOGY ORDERABLES Final Result Performing Organization Address [facility] Co de Phone Number [facility] [address] [place] [address] [facility] [address] [place] [address] * [facility] COLONOSCOPY (08/18/2020 10:45 AM EST) 08/18/2020 10:4 5 AM EST Impressions [facility] - 08/18/2020 12:44 PM EST Normal [...] MD GI PROCEDURE ORDERABLES Fi nal Result Performing Organization Address [facility] Co de Phone Number [facility] [address] [place] [id number] documented in this encounter Visit Diagnoses Diagnosis Rectal bleeding Hemorrhage of rectum and anus Diarrhea, unspecified type Polyp of colon Benign neoplasm of colon documented in this encounter Admitting Diagnoses Diagnosis Rectal bleeding Hemorrhage of rectum and anus Diarrhea documented in this encounter Administered Medications Inactive Administered Medications - up to 1 most recent administrations Medication Order MAR Action Action Date Dose Rate Site fentaNYL (SUBLIMAZE) injection 25 mcg 25 mcg, Intravenous, EVERY 5 MIN PRN, 4 doses, Starting on Mon08/18/20 at 1243, Until Mon08/18/20 at 1739, Pain, For initial pain. Maximum dose not to exceed 100 mcg., PACU HYDROmorphone (DILAUDID) injection 0.25 mg 0.25 mg, Intravenous, EVERY 10 MIN PRN, Starting on Mon08/18/20 at 1243, Until Mon08/18/20 at 1739, Breakthrough Pain, Do not exceed 2 mg in one hour unless otherwise ordered by the Anesthesia Coordinator For pain unrelieved by fentanyl or oral opioid, PACU lactated ringers infusion Intravenous, at 100 mL/hr, PREPROCEDURE CONTINUOUS, Starting on Mon08/18/20 at 1023, Until Mon08/18/20 at 1739, To be given in SDS/Pre-op Holding Area, Pre-op (Holding/SDS Meds) New Bag 08/18/2020 10:39 AM EST 100 mL/hr meperidine (DEMEROL) injection (PF) 12.5 mg 12.5 mg, Intravenous, ONCE PRN, 1 dose, Starting on Mon08/18/20 at 1243, Until Mon08/18/20 at 1739, Shivering, Shivering, unless otherwise ordered by Anesthesia Coordinator, PACU ondansetron (ZOFRAN) injection 4 mg 4 mg, Intravenous, PRN, 1 dose, Starting on Mon08/18/20 at 1243, Until Mon08/18/20 at 1739, Nausea, Do not give if patient received granisetron (KYTRIL) pre-operatively. Proceed to 2nd tier antiemetic., PACU ondansetron (ZOFRAN-ODT) disintegrating tablet 8 mg 8 mg, Oral, PRN, 1 dose, Starting on Mon08/18/20 at 1243, Until Mon08/18/20 at 1739, Nausea, Do not give if patient received granisetron (KYTRIL) pre-operatively. Proceed to 2nd tier antiemetic., PACU oxyCODONE (ROXICODONE) immediate release tablet 5 mg 5 mg, Oral, EVERY 1 HOUR PRN, 2 doses, Starting on Mon08/18/20 at 1243, Until Mon08/18/20 at 1739, Pain, When tolerating oral intake, PACU promethazine (PHENERGAN) 12.5 mg in sodium chloride 10 mL injection 12.5 mg, Intravenous, PRN, 2 doses, Starting on Mon08/18/20 at 1243, Until Mon08/18/20 at 1739, Nausea, For nausea unrelieved by ondansetron or pre-op granisetron. Begin with lowest dose unless otherwise directed. Give remainder of dose if nausea unrelieved in 20 minutes. Not to exceed 25 mg in one hour unless otherwise ordered by Anesthesia Coordinator. VESICANT , PACU promethazine (PHENERGAN) 6.25 mg in sodium chloride 10 mL injection 6.25 mg, Intravenous, PRN, 2 doses, Starting on Mon08/18/20 at 1243, Until Mon08/18/20 at 1739, Nausea, For nausea unrelieved by ondansetron or pre-op granisetron. Begin with lowest dose unless otherwise directed. Give remainder of dose if nausea unrelieved in 20 minutes. Not to exceed 25 mg in one hour unless otherwise ordered by Anesthesia Coordinator. VESICANT , PACU documented in this encounter Active and Recently Administered Medications Times are shown in EST. PRN Medication Order 08/16/2020 08/17/2020 08/18/2020 fentaNYL (SUBLIMAZE) injection 25 mcg 25 mcg, Intravenous, EVERY 5 MIN PRN, 4 doses, Starting on Mon08/18/20 at 1243, Until Mon08/18/20 at 1739, Pain, For initial pain. Maximum dose not to exceed 100 mcg., PACU HYDROmorphone (DILAUDID) injection 0.25 mg 0.25 mg, Intravenous, EVERY 10 MIN PRN, Starting on Mon08/18/20 at 1243, Until Mon08/18/20 at 1739, Breakthrough Pain, Do not exceed 2 mg in one hour unless otherwise ordered by the Anesthesia Coordinator For pain unrelieved by fentanyl or oral opioid, PACU lactated ringers infusion Intravenous, at 100 mL/hr, PREPROCEDURE CONTINUOUS, Starting on Mon08/18/20 at 1023, Until Mon08/18/20 at 1739, To be given in SDS/Pre-op Holding Area, Pre-op (Holding/SDS Meds) 1039 (New Bag - Prov ider: Waldemar Roman RN)1229 (Anesthesia Volume Adjustment - Provider: Pk Willis CRNA)1258 (Stopped - Provider: Waldemar Roman RN) meperidine (DEMEROL) injection (PF) 12.5 mg 12.5 mg, Intravenous, ONCE PRN, 1 dose, Starting on Mon08/18/20 at 1243, Until Mon08/18/20 at 1739, Shivering, Shivering, unless otherwise ordered by Anesthesia Coordinator, PACU ondansetron (ZOFRAN) injection 4 mg(Linked Group 1) 4 mg, Intravenous, PRN, 1 dose, Starting on Mon08/18/20 at 1243, Until Mon08/18/20 at 1739, Nausea, Do not give if patient received granisetron (KYTRIL) pre-operatively. Proceed to 2nd tier antiemetic., PACU ondansetron (ZOFRAN-ODT) disintegrating tablet 8 mg(Linked Group 1) 8 mg, Oral, PRN, 1 dose, Starting on Mon08/18/20 at 1243, Until Mon08/18/20 at 1739, Nausea, Do not give if patient received granisetron (KYTRIL) pre-operatively. Proceed to 2nd tier antiemetic., PACU oxyCODONE (ROXICODONE) immediate release tablet 5 mg 5 mg, Oral, EVERY 1 HOUR PRN, 2 doses, Starting on Mon08/18/20 at 1243, Until Tu08/18/20 at 1739, Pain, When tolerating oral intake, PACU promethazine (PHENERGAN) 12.5 mg in sodium chloride 10 mL injection(Linked Group 2) 12.5 mg, Intravenous, PRN, 2 doses, Starting on Mon08/18/20 at 1243, Until Mon08/18/20 at 1739, Nausea, For nausea unrelieved by ondansetron or pre-op granisetron. Begin with lowest dose unless otherwise directed. Give remainder of dose if nausea unrelieved in 20 minutes. Not to exceed 25 mg in one hour unless otherwise ordered by Anesthesia Coordinator. VESICANT , PACU promethazine (PHENERGAN) 6.25 mg in sodium chloride 10 mL injection(Linked Group 2) 6.25 mg, Intravenous, PRN, 2 doses, Starting on Mon08/18/20 at 1243, Until Mon08/18/20 at 1739, Nausea, For nausea unrelieved by ondansetron or pre-op granisetron. Begin with lowest dose unless otherwise directed. Give remainder of dose if nausea unrelieved in 20 minutes. Not to exceed 25 mg in one hour unless otherwise ordered by Anesthesia Coordinator. VESICANT , PACU Linked Groups Order Group 1: ondansetron (ZOFRAN) injection 4 mgJump to med 4 mg, Intravenous, PRN, 1 dose, Starting on Mon08/18/20 at 1243, Until Mon08/18/20 at 1739, Nausea, Do not give if patient received granisetron (KYTRIL) pre- operatively. Proceed to 2nd tier antiemetic., PACU Or ondansetron (ZOFRAN-ODT) disintegrating tablet 8 mgJump to med 8 mg, Oral, PRN, 1 dose, Starting on Mon08/18/20 at 1243, Until Mon08/18/20 at 1739, Nausea, Do not give if patient received granisetron (KYTRIL) pre-operatively. Proceed to 2nd tier antiemetic., PACU Group 2: promethazine (PHENERGAN) 6.25 mg in sodium chloride 10 mL injectionJump to med 6.25 mg, Intravenous, PRN, 2 doses, Starting on Mon08/18/20 at 1243, Until Mon08/18/20 at 1739, Nausea, For nausea unrelieved by ondansetron or pre-op granisetron. Begin with lowest dose unless otherwise directed. Give remainder of dose if nausea unrelieved in 20 minutes. Not to exceed 25 mg in one hour unless otherwise ordered by Anesthesia Coordinator. VESICANT , PACU Or promethazine (PHENERGAN) 12.5 mg in sodium chloride 10 mL injectionJump to med 12.5 mg, Intravenous, PRN, 2 doses, Starting on Mon08/18/20 at 1243, Until Mon08/18/20 at 1739, Nausea, For nausea unrelieved by ondansetron or pre-op granisetron. Begin with lowest dose unless otherwise directed. Give remainder of dose if nausea unrelieved in 20 minutes. Not to exceed 25 mg in one hour unless otherwise ordered by Anesthesia Coordinator. VESICANT , PACU documented in this encounter Orders Medications Ordered That Tone ht Not Have Been Administered Count Last Ordered Date First Ordered Date fentaNYL (SUBLIMAZE) injection 25 mcg 1 HYDROmorphone (DILAUDID) injection 0.25 mg 1 08/18/2020 meperidine (DEMEROL) injecti on (PF) 12.5 mg 1 08/18/2020 ondansetron (ZOFRAN) injection 4 mg 1 08/18 ondansetron (ZOFRAN-ODT) dis integrating tablet 8 mg 1 08/18/2020 oxyCODONE (ROXICODONE) immed iate release tablet 5 mg 1 08/18/2020 promethazine (PHENERGAN) 12. 5 mg in sodium chloride 10 mL injection 1 08/18/2020 promethazine (PHENERGAN) 6.2 5 mg in sodium chloride 10 mL injection 1 08/18/2020 Discharge Count Last Ordered Date First Orde red Date DISCHARGE PATIENT 1 08/18/2020 documented in this encounter Care Teams Rabbit Breeder Relationship Specialty Start Date End Date Michelle Garrdio APRN PCP - General Nurse Practitioner 01/09/17 01/14/21 documented as of this encounter
--- OUTSIDE RECORDS SUMMARY | 2024-05-29 15:44 | XMS_ITS | Encounter Summary ---
Author Organization [place] [address] Care Team Providers Care Electrical Prospecting Observer Name Role Phone Michelle Garrido APRN Primary Care Provider Unava ilable Reason for Visit * Reason Comments Orders Encounter Details Date Type Department Care Team (Latest Contact Info) Description 09/10/2020 2:50 PM EDT Clinical Support [facility] [address] [place] [address] Farzana Garrido MA Moderate persistent asthma with exacerbation (Primary Dx) [...] Taken Comments Blood Pressure - - Pulse 54 09/10/2020 3:25 PM EDT Temperature - - Respiratory Rate - - Oxygen Saturation 97% 09/10/2020 3:25 PM EDT Inhaled Oxygen Concentration - - [...] 07/03/2019 8:15 AM Maddy Snow RMA documented as of this encounter Mental Status * Because of a physical, mental or emotional condition, does this person have serious difficulty concentrating, remembering or making decisions? Answer Entry Date Author No 07/03/2019 8:15 AM Maddy Snow RMA documented in this encounter Progress Notes * Farzana Garrido MA - 09/10/2020 2:50 PM EDT driveup covid and flu completed. Pt tolerated well documented in this encounter Plan of Treatment Upcoming Encounters Date Type Department Care Team (Late st Contact Info) Description 06/28/2024 9:40 AM EST Clinical Support [facility] [address] [place] [phone] 11/19/2024 1:40 PM EDT Office Visit [facility] [address] [place] [address] Lyndsay Brewer DO [address] [place] [address] documented as of this encounter [...] exacerbation documented in this encounter Care Teams Electrical Prospecting Observer Relationship Specialty Start Date End Date Michelle Garrido APRN PCP - General Nurse Practitioner 01/09/17 01/14/21 documented as of this encounter
--- OUTSIDE RECORDS SUMMARY | 2024-05-29 15:44 | XMS_ITS | Encounter Summary ---
Author Organization [place] [address] Care Team Providers Care Portfolio Assistant Name Role Phone Michelle Garrido APRN Primary Care Provider Unava ilable Reason for Visit * Reason Comments Medication Refill Encounter Details Date Type Department Care Team (Late st Contact Info) Description 10/21/2020 Refill [facility] [address] [place] [employer] [place] [address] Michelle Garrido APRN Medication Refill [...] MOUTH EVERY DAY 30 Cap 5 10/22/2020 1 losartan (COZAAR) 50 mg Oral Tablet TAKE 1 TABLET BY MOUTH EVERY DAY 30 Tab 5 10/22/2020 1 documented in this encounter Miscellaneous Notes * Telephone Encounter - Sonia Alvarado CPhT - 10/22/2020 8:50 AM EDT Hydrochlorothiazide- Medication Refill Protocol failed due to appointment. pleater Reason: Past follow-up date noted by protocol. Protocol required follow-up within 6 months. Last assessed at visit 12/26/2018. There is no appointment scheduled. pleater Action: Defer to office. Patient already received two carter 30-day supplies of medication. Routed to office staff for outreach to schedule appointment. Losartan- Medication Refill Protocol failed due to appointment. pleater Reason: Past follow-up date noted by protocol. Protocol required follow-up within 6 months. Last assessed at visit 12/26/2018. There is no appointment scheduled. pleater Action: Defer to office. Patient already received two carter 30-day supplies of medication. Routed to office staff for outreach to schedule appointment. documented in this encounter Plan of Treatment Upcoming Encounters Date Type Department Care Team (Late st Contact Info) Description 06/28/2024 9:40 AM EST Clinical Support [facility] [address] [place] [phone] 11/19/2024 1:40 PM EDT Office Visit [facility] Neurology [facility] [address] [phone] Lyndsay Brewer DO [address] [facility] [address] [place] [address] documented as of this encounter [...] TAKE 1 CAPSULE BY MOUTH EVERY DAY 09/25/2020 10/22/2020 losartan (COZAAR) 50 mg Oral Tablet TAKE 1 TABLET BY MOUTH EVERY DAY 09/25/2020 10/22/2020 documented as of this encounter Care Teams Portfolio Assistant Relationship Specialty Start Date End Date Michelle Garrido APRN PCP - General Nurse Practitioner 01/09/17 01/14/21 documented as of this encounter
--- OUTSIDE RECORDS SUMMARY | 2024-05-29 15:44 | XMS_ITS | Encounter Summary ---
Author Organization [place] [address] Care Team Providers Care Geophysical Manager Name Role Phone Michelle Garrido APRN Primary Care Provider Unava ilable Reason for Visit * Reason Onset Date Comments Medication Management 10/15/2020 Encounter Details Date Type Department Care Team (Late st Contact Info) Description 10/15/2020 Telephone [facility] [employer] [address] [place] [address] Michelle Garrido APRN Medication Management Social History Tobacco Use Types Packs/Day Years [...] ations:Bronchitis ,Severe asthma without complication, unspecified whether persistent Take 3 mL by nebulization every 4 hours as needed for Wheezing. 180 mL 1 10/15/2020 04/26/202 1 tamsulosin (FLOMAX) 0.4 mg Oral CapsuleIndication s:BPH without urinary obstruction Take 2 Caps by mouth nightly. 180 Cap 1 10/15/2020 documented in this encounter Miscellaneous Notes * Telephone Encounter - Toma Ye CCMA - 10/15/2020 8:32 AM EDT done * Telephone Encounter - Orquidea Cabezas - 10/15/2020 8:19 AM EDT Patient stopped in because two of his prescriptions need fixed. The tamsulosin (FLOMAX) 0.4 mg Oral Capsule needs to have the directions clarified because there are two different directions in the sig. The albuterol (PROVENTIL) 2.5 mg /3 mL (0.083 %) Inhl Solution for Nebulization needs to have a different diagnosis associated before insurance will cover. Can probably use the asthma diagnosis [id number] [place] [address] [address] [phone] documented in this encounter Plan of Treatment Upcoming Encounters Date Type Department Care Team (Late st Contact Info) Description 06/28/2024 9:40 AM EST Clinical Support [facility] [address] [place] [address] 11/19/2024 1:40 PM EDT Office Visit [facility] Neurology [facility] [address] [place] [address] Lyndsay Brewer DO [address] [place] [address] documented as of this encounter Goals Goal Patient Goal Type Associated Problems Recent Progress Patient-Stated? Author Blood Pressure < 140/90 Blood Pressure 134/84(2023 1:16 PM EST) No Choi, Yana G, RMA Eat better, exercise, reach an ideal body weight General No Yana Choi, ESTEFANY Stay Tobacco Free Lifestyle No Yana Choi RMA documented as of this encounter Visit Diagnoses Diagnosis Severe asthma without complication, unspecified whether persistent- Primary BPH without urinary obstruction Hypertrophy of prostate without urinary obstruction and other lower urinary tract symptoms (LUTS) Bronchitis Bronchitis, not specified as acute or chronic documented in this encounter Discontinued Medications Medication Sig Discontinue Reason Start Date End Da te tamsulosin (FLOMAX) 0.4 mg Oral CapsuleIndications:BPH without urinary obstruction Take 2 Caps by mouth nightly. TAKE 1 CAPSULE BY MOUTH EVERY NIGHT Reorder 10/07/2020 10/15/2020 albuterol (PROVENTIL) 2.5 mg /3 mL (0.083 %) Inhl Solution for NebulizationIndication s:Bronchitis Take 3 mL by nebulization every 4 hours as needed for Wheezing. Reorder 10/07/2020 10/15/2020 documented as of this encounter Care Teams Geophysical Manager Relationship Specialty Start Date End Date Michelle Garrido APRN PCP - General Nurse Practitioner 01/09/17 01/14/21 documented as of this encounter
--- OUTSIDE RECORDS SUMMARY | 2024-05-29 15:44 | XMS_ITS | Encounter Summary ---
Author Organization [facility] [place] [address] Care Team Providers Care Heel Slicker Name Role Phone Michelle Garrido APRN Primary Care Provider Unava ilable Encounter Details Date Type Department Care Team (Latest Contact Info) Description 08/18/2020 Travel Social History Tobacco Use Types Packs/Day [...] Assessment Author No 07/03/2019 8:15 AM EST Mdady White RMA * Is the person blind [...] Date Author No 07/03/2019 8:15 AM EST Darlin Whiteiley ESTEFANY documented in this encounter Plan of Treatment Upcoming Encounters Date Type Department Care Team (Late st Contact Info) Description 06/28/2024 9:40 AM EST Clinical Support [facility] [address] [place] [address] 11/19/2024 1:40 PM EDT Office Visit [facility] Neurology [facility] [address] [place] [address] Lyndsay Brewer DO [address] [facility] [address] [place] [address] documented as [...] on filedocumented in this encounter Care Teams Heel Slicker Relationship Specialty Start Date End Date Michelle Garrido APRN PCP - General Nurse Practitioner 01/09/17 01/14/21 documented as of this encounter
--- OUTSIDE RECORDS SUMMARY | 2024-05-29 15:44 | XMS_ITS | Encounter Summary ---
Author Organization [place] [address] Care Team Providers Care Manager Environmental Health And Safety Name Role Phone Michelle Garrido APRN Primary Care Provider Unava ilable Reason for Visit * Auth/Cert/Inpt Specialty Diagnoses / Procedures Referred By Contac t Referred To Contact Diagnoses Rectal bleeding Diarrhea, unspecified type Rectal bleeding [K62.5] Diarrhea, unspecified type [R19.7] Procedures ID COLONOSCOPY FLX DX W/COLLJ SPEC WHEN PFRMD Colonoscopy with possible biopsy and/or polypectomy Referral ID Status Reason Start Date Expiration Date Visits Re quested Visits Authorized [id number] 1 1 Encounter Details Date Type Department Care Team (Late st Contact Info) Description 08/18/2020 10:45 AM EST - 08/18/2020 11:15 AM EST Surgery [facility] [address] [place] [address] Michael Mckeon MD [address] [place] [address] COLONOSCOPY-ENDO DEPT ONLY (ANESTHESIA) Surgery Details Date/Time Status Location OR Service Patient Class Case Cl ass Case Type Trauma Case? 08/18/2020 10:45 AM Posted [facility] END[facility] 01 Endoscopy Outpatient Elective Panel 1 Procedure LRB Anes Op Region Wound Class Comments COLONOSCOPY-ENDO DEPT ONLY (ANESTHESIA) N/A Monitored Anesthesia Care Colonoscopy with biopsy and cold snare polypectomy Surgeon Surgeon Role Service Panel Michael Mckeon MD Primary Endoscopy 1 documented in this encounter Social History Tobacco [...] Sign Reading Time Taken Comments Blood Pressure 124/68 08/18/2020 10:05 AM EST Pulse 71 08/18/2020 10:05 AM EST Temperature 36.8 ??C (98.2 ??F) 08/18/2020 10:[address] Respiratory Rate 18 08/18/2020 10:05 AM EST Oxygen Saturation 97% 08/18/2020 10:05 AM EST Inhaled Oxygen Concentration - - [...] encounter Discharge Instructions * Discharge Instructions* Waldemar Roman RN - 08/18/2020 1:03 PM EST [facility] Discharge Instructions - Following Endoscopy 1. A [...] 8. Patient discharged to the care of [place]; significant other ADDITIONAL INSTRUCTIONS: Call Dr. Jerel Herr at [phone] if the following occurs: Colonoscopy: Severe abdominal [...] Medication Instruction Sheet Given Rx: none +++++++++++++++++++++++++++++++++++++++++++++++++++++++++++++++++++ [facility] Discharge Instructions - Following Anesthesia We appreciate [...] our office at . Get Well Soon! [facility] +++++++++++++++++++++++++++++++++++++++++++++++++++++++++++++++++++ documented in this encounter Medications at Time of Discharge Nebulizer Accessories (ALL FLOW 4000 KIT) [facility] Formulary equivalent 1 Each [...] Code Departure Means Destination Home or Self Intermediate documented in this encounter H&P Notes * Michael Mckeon MD - 08/18/2020 10:45 AM EST Procedure: Colonoscopy ASA: 2 Mallampati: 2 Allergies: Allergies Allergen Reactions Abilify [Aripiprazole] Other (See Comments) convulsions Unable To Assess Patient does not take any narcotic medications Previous anesthesia reaction: No Pre-Procedure Assessment: Risks, benefits, potential complications and alternatives discussed with the patients legally authorized industrial sales representative. The patient's pre-procedure physical assessment indicates [...] is in reference to H&P performed by or on 07/30/20 Physician Signature: Michael Herr MD Date:08/18/2020 Time:10:53 AM Source Note - Michael Mckeon MD - 07/30/2020 8:00 AM EST [facility] Gastroenterology Video Consult Note 07/30/2020 This was [...] with colon cancer Prior Endoscopies: colonoscopy in 2014. Results not available Allergies: Allergies Allergen Reactions [...] REVISION-ANTERIOR ; Surgeon: Augie Ramires MD; Location: [facility]; Service: Orthopedics ??? KNEE SURGERY LEFT ACL RECONSTRUCTION ??? KNEE SURGERY LEFT ARTHROSCOPIES IRRAGATION X 7 FOR INFECTION ??? KNEE SURGERY RIGHT ARTHROSCOPIC MENICUS REPAIR ??? SHOULDER ARTHROSCOPY Right 11/29/2019 RIGHT SHOULDER ARTHROSCOPIC ROTATOR CUFF REPAIR DECOMPRESSION ACROMIOPLASTY, ACROMIOCLAVICULAR JOINT EXCISION; Surgeon: Kenny Loja MD; Location: [facility]; Service: Orthopedics ??? TOTAL HIP ARTHROPLASTY Left [...] APRN for asking me to see Zuhair Luda Whitlock in consultation Michael Herr MD Bridge Design Engineer [facility] [phone] documented in this encounter Nursing Notes * Jacinda Tinoco RN - 08/05/2020 1:58 PM EST Images from [...] ??? Review instructions provided by your surgeon. Sintering Plant Supervisor ??? On the day of surgery, it is important to have a Sintering Plant Supervisor, someone who is 18 years or older, [...] until the child is discharged. If your takes a special type of nipple or [...] or near the operative extremity. ??? Nail east timorese must be removed from operative extremity. Personal [...] a Living Will and Durable Power of Body Cleaner for Healthcare, please bring a copy. ??? [...] are here. Endoscopy - [place] at [phone]; [facility]: Main Entrance 1A, stop at front sight attacher and you will be sent to [address], [place] [address] documented in this encounter Plan of Treatment Upcoming Encounters Date Type Department Care Team (Late st Contact Info) Description 06/28/2024 9:40 AM EST Clinical Support [facility] [address] [place] [phone] 11/19/2024 1:40 PM EDT Office Visit [facility] Neurology [facility] [address] [place] [address] Lyndsay Brewer, DO [address] [place] [address] documented as of this encounter [...] PM EST) CASE REPORT Surgical Pathology ?Case: [id number] ? Authorizing Provider: ??Michael Mckeon MD ?Collected: ? 08/18/2020 1224 ? Ordering Location: ? [facility] ?Received: ?08/18/2020 1410 ? Pathologist: ? Donnell Finney MD ? Specimens: ?? A) - Large Intestine, Right/Ascending Colon, Ascending colon polyp via cold snare ? B) - Colon, Random colon biopsy via forceps ? 08/19/2020 10:21 AM [employer] [facility] FINAL DIAGNOSIS A) Ascending Colon Polyp: - Multiple Fragments of Sessile Serrated Polyp, Negative For High-Grade Dysplasia. B) Random Colon Biopsy: - Colonic Mucosa, Normal Crypt Architecture, Focal Lymphoid Aggregates. - Negative For Microscopic/Lymp hocytic Colitis. - Specific Architectural and Inflammatory Changes Absent. 08/19/2020 10:21 AM [facility] OSCOPIC DESCRIPTION Microscopic examination is performed and the findings corroborate the diagnosis. 08/19/2020 10:21 AM [facility] EMBEDDED IMAGES 08/19/2020 10:21 AM [facility] GROSS DESCRIPTION Part A) Received in [...] one cassette. / ZN 08/19/2020 10:21 AM EST [facility] Tissue ASCENDING COLON STRUCTURE / Unknown 08/18/2020 12:24 PM EST 08/18/2020 2:10 PM EST Tissue specimen (specimen) COLON STRUCTURE / Unknown 08/18/2020 12:25 PM EST 08/18/2020 2:06 PM EST Michael Herr MD PATHOLOGY ORDERABLES Final Result Performing Organization Address [facility] Co de Phone Number [facility] [address] [place] [address] [facility] [address] [place] [phone] * [facility] COLONOSCOPY (08/18/2020 10:45 AM EST) 08/18/2020 10:4 5 AM EST Impressions [facility] - 08/18/2020 12:44 PM EST Normal [...] ORDERABLES Fi nal Result Performing Organization Address [facility] Co de Phone Number [facility] [address] [place] [address] documented in this encounter Visit Diagnoses Diagnosis Rectal bleeding Hemorrhage of rectum and anus Diarrhea, unspecified type Rectal bleeding Hemorrhage of rectum and anus Diarrhea, unspecified type documented in this encounter Admitting Diagnoses Diagnosis [...] on Mon08/18/20 at 1243, Until Mon08/18/20 at 173, Nausea, Do not give if patient received [...] RN)1229 (Anesthesia Volume Adjustment - Provider: Pk M Foster, LOG ROPER)1258 (Stopped - Provider: Waldemar Roman RN) meperidine [...] dose, Starting on Mon08/18/20 at 1243, Until Tu08/18/20 at 1739, Nausea, Do not give if [...] 08/18/2020 documented in this encounter Care Teams Manager Environmental Health And Safety Relationship Specialty Start Date End Date Michelle Garrido APRN PCP - General Nurse Practitioner 01/09/17 01/14/21 documented as of this encounter
--- OUTSIDE RECORDS SUMMARY | 2024-05-29 15:44 | XMS_ITS | Encounter Summary ---
Author Organization [facility] [address] Care Team Providers Care New Car Salesperson Name Role Phone Michelle Garrido APRN Primary Care Provider Unava ilable Encounter Details Date Type Department Care Team (Latest Contact Info) Description 09/24/2020 Travel Social History Tobacco Use Types Packs/Day [...] EST Clinical Support [facility] [address] [place] [phone] 11/19/2024 1:40 PM EDT Office Visit [facility] [address] [place] [address] Lyndsay Brewer DO [address] [facility] [address] [place] [address] documented as of this [...] on filedocumented in this encounter Care Teams New Car Salesperson Relationship Specialty Start Date End Date Michelle Garrido APRN PCP - General Nurse Practitioner 01/09/17 01/14/21 documented as of this encounter
--- OUTSIDE RECORDS SUMMARY | 2024-05-29 15:44 | XMS_ITS | Encounter Summary ---
Author Organization [facility] [place] [place] [address] Care Team Providers Care Customer Service Security Officer Name Role Phone Michelle Garrido APRN Primary Care Provider Unava ilable Reason for Visit * Reason Onset Date Comments Medication Refill 10/19/2020 Encounter Details Date Type Department Care Team (Late st Contact Info) Description 10/19/2020 Refill [facility] [address] [place] [address] Michelle Garrido APRN Medication Refill [...] asthma without complication, unspecified whether persistent,Wheezi ng Take 3 mL by nebulization every 4 hours as needed for Wheezing. 180 mL 1 10/19/2020 2 documented in this encounter Miscellaneous Notes * Telephone Encounter - Farzana Garrido MA - 10/19/2020 3:22 PM EDT Received fax from pharmacy stating dx code for bronchitis is not covered by medicare. Primary dx isasthma and added wheezing per verbal from Michelle Garrido and sent again. documented in this encounter Plan of Treatment Upcoming Encounters Date Type Department Care Team (Late st Contact Info) Description 06/28/2024 9:40 AM EST Clinical Support [facility] [address] [place] [phone] 11/19/2024 1:40 PM EDT Office Visit [facility] Neurology [facility] [address] [place] [address] Lyndsay Brewer DO [address] [place] [address] documented as of this encounter Goals Goal Patient Goal Type Associated Problems Recent Progress Patient-Stated? Author Blood Pressure < 140/90 Blood Pressure 134/84(2023 1:16 PM EST) No Yana Choi RMA Eat better, exercise, reach an ideal body weight General No Yana Choi RMA Stay Tobacco Free Lifestyle No Yana Choi RMA documented as of this encounter Visit Diagnoses Diagnosis Wheezing- Primary Bronchitis Bronchitis, not specified as acute or chronic Severe asthma without complication, unspecified whether persistent documented in this encounter Discontinued Medications Medication Sig Discontinue Reason Start Date End Da te albuterol (PROVENTIL) 2.5 mg /3 mL (0.083 %) Inhl Solution for NebulizationIndication s:Bronchitis,Severe asthma without complication, unspecified whether persistent Take 3 mL by nebulization every 4 hours as needed for Wheezing. Reorder 10/15/2020 10/19/2020 documented as of this encounter Care Teams Customer Service Security Officer Relationship Specialty Start Date End Date Michelle Garrido APRN PCP - General Nurse Practitioner 01/09/17 01/14/21 documented as of this encounter
--- OUTSIDE RECORDS SUMMARY | 2024-05-29 15:44 | XMS_ITS | Encounter Summary ---
Author Organization [place] [address] Care Team Providers Care Cargo And Ramp Services Manager Name Role Phone Michelle Garrido APRN Primary Care Provider Willie aguila Encounter Details Date Type Department Care Team (Late st Contact Info) Description 09/24/2020 Orders Only [facility] [address] [employer] [place] [phone] Maddy White, RMA [address] [place] [address] Moderate persistent asthma without complication Social History [...] 07/03/2019 8:15 AM EST Maddy White RMJane * Is the person blind or does he/she have serious difficulty seeing even when wearing glasses? Answer Date of Assessment Author No 07/03/2019 8:15 AM Maddy Snow RMJane * Does this person have serious difficulty walking or climbing stairs? Answer Date of Assessment Author No 07/03/2019 8:15 AM Maddy Snow ESTEFANY * Does this person have difficulty dressing or bathing? Answer Date of Assessment Author No 07/03/2019 8:15 AM EST Maddy White RMJane * Because of a physical, mental [...] No 07/03/2019 8:15 AM Maddy Snow RMJane documented in this encounter Ordered Prescriptions Prescription Sig Dispense Quantity Refills Last Filled Start Date End Date albuterol (PROVENTIL) 5 mg/mL Inhl Solution for NebulizationIndic ations:Moderate persistent asthma without complication Take 5 mg/hr by nebulization continuous. 40 mL 2 09/24/2020 1 documented in this encounter Plan of Treatment Upcoming Encounters Date Type Department Care Team (Late st Contact Info) Description 06/28/2024 9:40 AM EST Clinical Support [facility] [address] [place] [phone] 11/19/2024 1:40 PM EDT Office Visit [facility] Neurology [facility] [address] [place] [address] Lyndsay Brewer DO [address] [facility] [address] [place] [address] documented as of this encounter Goals Goal [...] Take 5 mg/hr by nebulization continuous. Reorder 09/21/2020 09/24/2020 documented as of this encounter Care Teams Cargo And Ramp Services Manager Relationship Specialty Start Date End Date Michelle Garrido APRN PCP - General Nurse Practitioner 01/09/17 01/14/21 documented as of this encounter
--- OUTSIDE RECORDS SUMMARY | 2024-05-29 15:44 | XMS_ITS | Encounter Summary ---
Author Organization [place] [address] Care Team Providers Care Photoengraving Retoucher Name Role Phone Michelle Garrido APRN Primary Care Provider Unava ilable Reason for Visit * Reason Onset Date Comments Other 11/09/2020 Encounter Details Date Type Department Care Team (Late st Contact Info) Description 11/09/2020 Telephone [facility] Gastro [facility] [address] [address] Michael Mckeon MD [address] [place], [place] [id number] Other Social History Tobacco Use Types Packs/Day [...] End Date colestipoL (COLESTID) 1 gram Oral TabletIndications:D iarrhea, unspecified type Take 1 Tab by mouth 2 times daily. 60 Tab 11/09/2020 12/09/2020 documented in this encounter Miscellaneous Notes * Addendum Note - Anushka Greenfield LPN - 11/09/2020 11:32 AM EDTAddended by: ANUSHKA GREENFIELD on: 11/09/2020 11:32 AM Modules accepted: Orders * Telephone Encounter - Anushka Greenfield LPN - 11/09/2020 11:29 AM EDT Made appointment to talk about further treatment. IS doing well on COLESTID. BUT still having many bowel movements a day. Informed him ill refill it. [facility] [place]. * Telephone Encounter - Sawyer Rosario, Clerical Staff - 11/09/2020 11:08 AM EDT pt on voicemail for GI asking for refill of that medication that GI put me on I am assuming heis referring to colestipoL (COLESTID) 1 gram Oral Tablet please cb documented in this encounter Plan of Treatment Upcoming Encounters Date Type Department Care Team (Late st Contact Info) Description 06/28/2024 9:40 AM EST Clinical Support [facility] [address] [place] [address] 11/19/2024 1:40 PM EDT Office Visit SE[facility] Neurology [facility] [address] [place] [phone] Lyndsay Brewer DO [address] [place] [address] documented as of this encounter [...] Diarrhea, unspecified type documented in this encounter Discontinued Medications Medication Sig Discontinue Reason Start Date End Da te colestipoL (COLESTID) 1 gram Oral TabletIndications:Diarrhe a, unspecified type Take 1 Tab by mouth 2 times daily. Reorder 09/01/2020 11/09/2020 documented as of this encounter Care Teams Photoengraving Retoucher Relationship Specialty Start Date End Date Michelle Garrido APRN PCP - General Nurse Practitioner 01/09/17 01/14/21 documented as of this encounter
--- OUTSIDE RECORDS SUMMARY | 2024-05-29 15:44 | XMS_ITS | Encounter Summary ---
Author Organization [facility] [place] [address] Care Team Providers Care Manager Meat Name Role Phone Michelle Garrido APRN Primary Care Provider Unava ilable Encounter Details Date Type Department Care Team (Latest Contact Info) Description 09/10/2020 Travel Social History Tobacco Use Types Packs/Day [...] EST Clinical Support [facility] [address] [place] [phone] 11/19/2024 1:40 PM EDT Office Visit [facility] Neurology [facility] [address] [place] [address] Lyndsay Brewer DO [address] [facility] [address] [place] [address] documented as of this [...] on filedocumented in this encounter Care Teams Manager Meat Relationship Specialty Start Date End Date Michelle Garrido APRN PCP - General Nurse Practitioner 01/09/17 01/14/21 documented as of this encounter
--- OUTSIDE RECORDS SUMMARY | 2024-05-29 15:44 | XMS_ITS | Encounter Summary ---
Author Organization [place] [address] Care Team Providers Care Industrial Safety And Health Manager Name Role Phone Michelle Garrido APRN Primary Care Provider Unava ilable Reason for Visit * Reason Onset Date Comments Results 09/01/2020 Encounter Details Date Type Department Care Team (Late st Contact Info) Description 09/01/2020 Telephone [facility] GASTRO [facility] [address] [place] [address] Michael Mckeon MD [address] [place] [address] Results Social History Tobacco Use Types Packs/Day [...] Assessment Author No 07/03/2019 8:15 AM EST Darlin WhiteESTEFANY guthrie * Does this person have serious difficulty walking or climbing stairs? Answer Date of Assessment Author No 07/03/2019 8:15 AM EST Maddy WhiteESTEFANY * Does this person have difficulty dressing or bathing? Answer Date of Assessment Author No 07/03/2019 8:15 AM EST Maddy White RMA * Because of a physical, mental or emotional condition, does this person have difficulty doing errands alone such as visiting a doctor's office or shopping? Answer Date of Assessment Author No 07/03/2019 8:15 AM EST WhiteMaddy RMA documented as of this encounter Mental Status * Because of a physical, mental or emotional condition, does this person have serious difficulty concentrating, remembering or making decisions? Answer Entry Date Author No 07/03/2019 8:15 AM AIMEE Maddy White ESTEFANY documented in this encounter Ordered Prescriptions Prescription Sig Dispense Quantity Refills Last Filled Start Date End Date colestipoL (COLESTID) 1 gram Oral TabletIndications:D iarrhea, unspecified type Take 1 Tab by mouth 2 times daily. 60 Tab 2 09/01/2020 11/09/2020 documented in this encounter Miscellaneous Notes * Telephone Encounter - Marilu West LPN - 09/01/2020 9:46 AM EST Pt aware of results. Medication placed. * Telephone Encounter - Marilu West LPN - 09/01/2020 9:46 AM EST ----- Message from Michael Herr MD sent at 08/25/2020 1:15 PM EST ----- 1 precancerous polyp. This was a completely removed. No cancer was seen. This is great news. Repeat colonoscopy in 5 years. Random colon biopsies were otherwise normal. He does not have Crohn's disease or microscopic colitis. His diarrhea is functional in nature and if he would like to seek any further treatment for this then we should set up an office visit to discuss the options. He can trial Colestid 1 g twice daily in the meantime. documented in this encounter Plan of Treatment Upcoming Encounters Date Type Department Care Team (Late st Contact Info) Description 06/28/2024 9:40 AM EST Clinical Support [facility] [address] [employer] [place] [phone] 11/19/2024 1:40 PM EDT Office Visit [facility] Neurology [facility] [address] [place] [address] Lyndsay Brewer, [address] [place] [address] documented as of this encounter Goals Goal Patient Goal Type Associated Problems Recent Progress Patient-Stated? Author Blood Pressure < 140/90 Blood Pressure 134/84(2023 1:16 PM EST) No Yana Choi RMA Eat better, exercise, reach an ideal body weight General No Yana Choi RMA Stay Tobacco Free Lifestyle No Yana Choi RMA documented as of this encounter Visit Diagnoses Diagnosis Diarrhea, unspecified type- Primary documented in this encounter Care Teams Industrial Safety And Health Manager Relationship Specialty Start Date End Date Michelle Garrido APRN PCP - General Nurse Practitioner 01/09/17 01/14/21 documented as of this encounter
--- OUTSIDE RECORDS SUMMARY | 2024-05-29 15:45 | XMS_ITS | Encounter Summary ---
Author [place] [address] Care Team Providers Care Fire Equipment Repairer Inspector Name Role Phone Michelle Garrido APRN Primary Care Provider Unava ilable Reason for Visit * Reason Comments Medication Refill Encounter Details Date Type Department Care Team (Late st Contact Info) Description 06/28/2020 Refill [facility] [place] [address] [place] [address] Michelle Garrido APRN Medication Refill [...] have Coronavirus / COVID-19? No / Unsure 06/16/2020 9:18 AM EST documented as of this encounter [...] CAPSULE BY MOUTH EVERY DAY 30 Cap 06/30/2020 1 losartan (COZAAR) 50 mg Oral Tablet TAKE 1 TABLET BY MOUTH EVERY DAY 30 Tab 06/30/2020 1 documented in this encounter Miscellaneous Notes * Telephone Encounter - Yessenia Kennedy, [facility] - 06/30/2020 9:26 AM EST Hydrochlorothiazide Medication Refill Protocol failed due to appointment. barrel header Reason: Past follow-up date noted by protocol. Protocol required follow-up within 6 months. Last assessed at visit 12/26/18. There is no appointment scheduled. barrel header Action: Approved first carter 30-day supply of medication Routed to office staff for outreach to schedule appointment. Losartan Medication Refill Protocol failed due to appointment. barrel header Reason: Past follow-up date noted by protocol. Protocol required follow-up within 6 months. Last assessed at visit 12/26/18. There is no appointment scheduled. barrel header Action: Approved first carter 30-day supply of medication Routed to office staff for outreach to schedule appointment. documented in this encounter Plan of Treatment Upcoming Encounters Date Type Department Care Team (Late st Contact Info) Description 06/28/2024 9:40 AM EST Clinical Support [facility] [address] [employer] [place] [phone] 11/19/2024 1:40 PM EDT Office Visit SE[facility] Neurology [facility] [address] [place] [address] Lyndsay Brewer DO [address] [place] [address] documented as of this encounter [...] TAKE 1 CAPSULE BY MOUTH EVERY DAY 04/01/2020 06/30/2020 losartan (COZAAR) 50 mg Oral Tablet TAKE 1 TABLET BY MOUTH EVERY DAY 04/02/2020 06/30/2020 documented as of this encounter Care Teams Fire Equipment Repairer Inspector Relationship Specialty Start Date End Date Michelle Garrido APRN PCP - General Nurse Practitioner 01/09/17 01/14/21 documented as of this encounter
--- OUTSIDE RECORDS SUMMARY | 2024-05-29 15:45 | XMS_ITS | Encounter Summary ---
Author Organization [place] [address] Care Team Providers Care Automotive Design Layout Drafter Name Role Phone Michelle Garrido APRN Primary Care Provider Unava ilable Reason for Visit * Reason Comments Medication Refill Encounter Details Date Type Department Care Team (Late st Contact Info) Description 07/18/2020 Refill [facility] [place] [address] [place] [address] Michelle Garrido APRN Medication Refill [...] have Coronavirus / COVID-19? No / Unsure 07/15/2020 9:05 AM EST documented as of this encounter [...] MOUTH EVERY NIGHT 90 Cap 1 07/20/2020 documented in this encounter Plan of Treatment Upcoming Encounters Date Type Department Care Team (Late st Contact Info) Description 06/28/2024 9:40 AM EST Clinical Support [facility] [place] [address] [employer] [place] [address] 11/19/2024 1:40 PM EDT Office Visit [facility] Neurology [facility] [address] [place] [address] Lyndsay Brewer DO [address] [place] [address] documented as of this encounter Goals [...] CAPSULE BY MOUTH EVERY DAY AT NIGHT 01/13/2020 07/20/2020 documented as of this encounter Care Teams Automotive Design Layout Drafter Relationship Specialty Start Date End Date Michelle Garrido APRN PCP - General Nurse Practitioner 01/09/17 01/14/21 documented as of this encounter
--- OUTSIDE RECORDS SUMMARY | 2024-05-29 15:45 | XMS_ITS | Encounter Summary ---
Author Organization [place] [address] Care Team Providers Care Md Physician Dermatologist Name Role Phone Michelle Garrido APRN Primary Care Provider Unava ilable Reason for Visit * Reason Comments Medication Refill Encounter Details Date Type Department Care Team (Late st Contact Info) Description 07/05/2020 Refill [facility] [place] [address] [employer] [place] [address] Michelle Garrido APRN Medication Refill [...] FOR ERECTILE DYSFUNCTION 90 Tab 1 07/06/2020 documented in this encounter Miscellaneous Notes * Telephone Encounter - Edith Isidro CPhT - 07/06/2020 3:55 PM EST [email or web address] Medication Refill Protocol failed due to appointment. leaf tier Reason: Chart review does not show a coded diagnosis in protocol timeframe leaf tier Action: Defer to office. Unsure of how to proceed. Unsure of an appropriate qty to approve fora 30 day carter supply Routed to office staff for outreach to schedule appointment. documented in this encounter Plan of Treatment Upcoming Encounters Date Type Department Care Team (Late st Contact Info) Description 06/28/2024 9:40 AM EST Clinical Support [facility] [address] [place] [phone] 11/19/2024 1:40 PM EDT Office Visit [facility] Neurology [facility] [address] [place] [address] [place] Lyndsay Harrelln, DO [address] [place] [address] documented as of [...] by mouth as needed. for erectile dysfunction 01/13/2020 07/06/2020 documented as of this encounter Care Teams Md Physician Dermatologist Relationship Specialty Start Date End Date Michelle Garrido APRN PCP - General Nurse Practitioner 01/09/17 01/14/21 documented as of this encounter
--- OUTSIDE RECORDS SUMMARY | 2024-05-29 15:45 | XMS_ITS | Encounter Summary ---
Author Organization [facility] [place] [address] Care Team Providers Care Medical I D Sales Name Role Phone Michelle Garrido APRN Primary Care Provider Unava ilable Reason for Visit * Reason Comments Medication Refill Encounter Details Date Type Department Care Team (Late st Contact Info) Description 08/02/2020 Refill [facility] [place] [address] [place] [address] Michelle Garrido APRN Medication Refill [...] have Coronavirus / COVID-19? No / Unsure 07/30/2020 8:02 AM EST documented as of this encounter [...] HOURS NEEDED FOR WHEEZING. 54 Inhaler 08/03/2020 09/14/2020 documented in this encounter Miscellaneous Notes * Telephone Encounter - Maddy White RMA - 08/03/2020 10:25 AM EST One refill sent to the pharmacy. Patient will need an appt for additional refills. documented in this encounter Plan of Treatment Upcoming Encounters Date Type Department Care Team (Late st Contact Info) Description 06/28/2024 9:40 AM EST Clinical Support [facility] [address] [employer] [place] [address] 11/19/2024 1:40 PM EDT Office Visit [facility] Neurology [facility] [address] [place] [address] Lyndsay Brewer, DO [address] [place] [address] documented as of this encounter Goals Goal [...] PUFFS EVERY 4 HOURS NEEDED FOR WHEEZING. 03/03/2020 08/03/2020 documented as of this encounter Care Teams Medical I D Sales Relationship Specialty Start Date End Date Michelle Garrido APRN PCP - General Nurse Practitioner 01/09/17 01/14/21 documented as of this encounter
--- OUTSIDE RECORDS SUMMARY | 2024-05-29 15:45 | XMS_ITS | Encounter Summary ---
Author Organization [facility] [place] [address] Care Team Providers Care Corporate Communications Intern Name Role Phone Michelle Garrido APRN Primary Care Provider Unava ilable Encounter Details Date Type Department Care Team (Latest Contact Info) Description 08/05/2020 Travel Social History Tobacco Use Types Packs/Day [...] have Coronavirus / COVID-19? No / Unsure 08/05/2020 1:52 PM EST documented as of this encounter [...] EST Clinical Support [facility] [address] [place] [address] 11/19/2024 1:40 PM EDT Office Visit [facility] Neurology [facility] [address] [place] [address] Lyndsay Brewer DO [address] [facility] [address] [place] [address] documented as of this encounter [...] on filedocumented in this encounter Care Teams Corporate Communications Intern Relationship Specialty Start Date End Date Michelle Garrido APRN PCP - General Nurse Practitioner 01/09/17 01/14/21 documented as of this encounter
--- OUTSIDE RECORDS SUMMARY | 2024-05-29 15:45 | XMS_ITS | Encounter Summary ---
Author Organization [facility] [place] [address] Care Team Providers Care Hydrographic Engineer Name Role Phone Michelle Garrido APRN Primary Care Provider Unava ilable Encounter Details Date Type Department Care Team (Latest Contact Info) Description 07/15/2020 Travel Social History Tobacco Use Types Packs/Day [...] EST Clinical Support [facility] [address] [place] [address] 11/19/2024 1:40 PM EDT Office Visit SEP Neurology [facility] [address] [place] [address] Lyndsay Brewer DO [address] [facility] [address] [place] [address] documented as of this encounter [...] on filedocumented in this encounter Care Teams Hydrographic Engineer Relationship Specialty Start Date End Date Michelle Garrido APRN PCP - General Nurse Practitioner 01/09/17 01/14/21 documented as of this encounter
--- OUTSIDE RECORDS SUMMARY | 2024-05-29 15:45 | XMS_ITS | Encounter Summary ---
Author Organization [place] [address] Care Team Providers Care Supervisor [employer] Name Role Phone Michelle Garrido APRN Primary Care Provider Unava ilable Reason for Referral * Consultation (Urgent) - Closed Specialty Diagnoses / Procedures Referred By Contsathish t Referred To Contact Gastroenterology Diagnoses Diarrhea, unspecified type Marcela De Leon MD [facility] [place] [facility] [address] [address] Phone: tel: Referral ID Status Reason Start Date Expiration Date Visits Re quested Visits Authorized [id number] Closed 07/15/2020 07/15/2021 99 99 Question Answer Is this referral for colon cancer screening? Yes Provider Options First Available Reason for Visit * Reason Comments Rectal Bleeding x3 days, worsening o paola the past 2 days Encounter Details Date Type Department Care Team ([facility] Contact Info) Description 07/15/2020 9:15 AM EST Office Visit [facility] [address] [place] [address] Marcela De Leon MD Diarrhea, unspecified type (Primary Dx) Social History Tobacco [...] Sign Reading Time Taken Comments Blood Pressure 128/84 07/15/2020 9:18 AM EST Pulse 84 07/15/2020 9:18 AM EST Temperature 36.1 ??C (97 ??F) 07/15/2020 9:18 AM EST Respiratory Rate 18 07/15/2020 9:18 AM EST Oxygen Saturation 96% 07/15/2020 9:18 AM EST Inhaled Oxygen Concentration - - Weight 97 kg (213 lb 12.8 oz) 07/15/2020 9:18 AM EST Height 170.2 cm (5' 7 ) 07/15/2020 9:18 AM EST Body Mass Index 33.49 07/15/2020 9:18 AM EST documented in this encounter Functional [...] Refills Last Filled Start Date End Date Saccharomyces jefferydii (FLORASTOR) 250 mg Oral CapsuleIndications: Diarrhea, unspecified type Take 1 Cap by mouth 2 times daily. 60 Cap 2 07/15/2020 01/15/2021 documented in this encounter Progress Notes * Marcela De Leon MD - 07/15/2020 9:15 AM EST Vitals: 07/15/20 0918 BP: 128/84 BP Location: Right arm Patient Position: Sitting Pulse: 84 Resp: 18 Temp: 97 ??F (36.1 ??C) TempSrc: Temporal SpO2: 96% Weight: 213 lb 12.8 oz (97 kg) Height: 5' 7 (1.702 m) SUBJECTIVE: Chief Complaint Patient presents with ??? Rectal Bleeding x3 days, worsening over the past 2 days HPI: Patient presents with blood in stool for the past 2 days. He has chronic diarrhea due to IBS. His father had colon cancer. Review of Systems Constitutional: Negative for chills and fever. HENT: Negative for sinus pressure and sore throat. Eyes: Negative for redness and visual disturbance. Respiratory: Negative for shortness of breath. Cardiovascular: Negative for chest pain. Gastrointestinal: Positive for blood in stool. Negative for abdominal pain. Endocrine: Negative for cold intolerance and heat intolerance. Genitourinary: Negative for difficulty urinating. Musculoskeletal: Negative for joint swelling. Skin: Negative for color change. Allergic/Immunologic: Negative for immunocompromised state. Neurological: Negative for dizziness. Hematological: Does not bruise/bleed easily. Psychiatric/Behavioral: Negative for confusion. The patient is not nervous/anxious. OBJECTIVE: Physical Exam Vitals signs reviewed. Constitutional: General: He is not in acute distress. Cardiovascular: Rate and Rhythm: Normal rate and regular rhythm. Pulmonary: Effort: Pulmonary effort is normal. Breath sounds: Normal breath sounds. Abdominal: General: There is no distension. Palpations: Abdomen is soft. Tenderness: There is abdominal tenderness (sl diffuse tenderness throughout). Assessment Diagnoses and all orders for this visit: Diarrhea, unspecified type - C DIFF TOXIN DNA; Future - STOOL CULTURE (NO STAIN); Future - SHIGA TOXIN; Future - OVA AND PARASITE BASIC; Future - Saccharomyces boulardii (FLORASTOR) 250 mg Oral Capsule; Take 1 Cap by mouth 2 times daily. Dispense: 60 Cap; Refill: 2 - AMB REFERRAL TO GASTROENTEROLOGY documented in this encounter Miscellaneous Notes * Patient Instructions - Hermila Donnelly MA - 07/15/2020 9:15 AM EST You may be contacted by mail [...] AM EST Clinical Support [facility] [address] [place] [phone] 11/19/2024 1:40 PM EDT Office Visit [facility] [address] [place] [phone] Lyndsay Brewer DO [address] [place] [address] Scheduled Orders Name Type Priority Associated Diagnoses Orde r Schedule C DIFF TOXIN DNA Microbiology Routine Diarrhea, unspecified type 1 Occurrences starting 07/15/2020 until 07/16/2021 STOOL CULTURE (NO STAIN) Microbiology Routine Diarrhea, unspecified type 1 Occurrences starting 07/15/2020 until 07/15/2021 SHIGA TOXIN Microbiology Routine Diarrhea, unspecified type 1 Occurrences starting 07/15/2020 until 07/15/2021 OVA AND PARASITE BASIC Microbiology Routine Diarrhea, unspecified type 1 Occurrences starting 07/15/2020 until 07/16/2021 Scheduled Referrals Name Type Priority Associated Diagnoses Order Schedule AMB REFERRAL TO GASTROENTEROLOGY Outpatient Referral Routine Diarrhea, unspecified type Ordered: 07/15/2020 documented as of this encounter Goals Goal [...] unspecified type- Primary documented in this encounter Discontinued Medications Medication Sig Discontinue Reason Start Date End Da te VIBERZI 100 mg Oral TabletIndications:Irrita ble bowel syndrome with diarrhea TAKE 1 TABLET BY MOUTH TWICE A DAY Cancelled by 01/06/2020 07/15/2020 documented as of this encounter Care Teams Supervisor [employer] Relationship Specialty Start Date End Date Michelle Garrido APRN PCP - General Nurse Practitioner 01/09/17 01/14/21 documented as of this encounter
--- OUTSIDE RECORDS SUMMARY | 2024-05-29 15:45 | XMS_ITS | Encounter Summary ---
Author Organization [place] [address] Care Team Providers Care Sales Vice President Name Role Phone Michelle Garrido APRN Primary Care Provider Unava ilable Reason for Visit * Reason Comments Medication Refill Encounter Details Date Type Department Care Team (Late st Contact Info) Description 08/05/2020 Refill [facility] [address] [place] [address] Michelle Garrido APRN Medication Refill [...] TWICE A DAY 180 Each 1 08/05/2020 02/08/2021 documented in this encounter Plan of Treatment Upcoming Encounters Date Type Department Care Team (Late st Contact Info) Description 06/28/2024 9:40 AM EST Clinical Support [facility] [address] [employer] [place], [place] [phone] 11/19/2024 1:40 PM EDT Office Visit [facility] [address] [place] [address] Lyndsay Brewer DO [address] [place] [address] documented as of this encounter [...] 1 PUFF BY MOUTH TWICE A DAY 02/03/2020 08/05/2020 documented as of this encounter Care Teams Sales Vice President Relationship Specialty Start Date End Date Michelle Garrido APRN PCP - General Nurse Practitioner 01/09/17 01/14/21 documented as of this encounter
--- OUTSIDE RECORDS SUMMARY | 2024-05-29 15:45 | XMS_ITS | Encounter Summary ---
Author Organization [facility] [address] Care Team Providers Care Route Delivery Supervisor Name Role Phone Michelle Garrido APRN Primary Care Provider Unava ilable Encounter Details Date Type Department Care Team (Latest Contact Info) Description 05/11/2020 Travel Social History Tobacco Use Types Packs/Day [...] have Coronavirus / COVID-19? No / Unsure 05/11/2020 8:03 AM EST documented as of this encounter [...] Maddy White RMA documented in this encounter Plan of Treatment Upcoming Encounters Date Type Department Care Team (Late st Contact Info) Description 06/28/2024 9:40 AM EST Clinical Support [facility] [address] [place] [address] 11/19/2024 1:40 PM EDT Office Visit [facility] [address] [place] [phone] Lyndsay Brewer DO [address] [facility] [address] [place] [address] documented as of this encounter [...] on filedocumented in this encounter Care Teams Route Delivery Supervisor Relationship Specialty Start Date End Date Michelle Garrido APRN PCP - General Nurse Practitioner 01/09/17 01/14/21 documented as of this encounter
--- OUTSIDE RECORDS SUMMARY | 2024-05-29 15:45 | XMS_ITS | Encounter Summary ---
Author Organization [place] [address] Care Team Providers Care Fine Arts Model Name Role Phone Michelle Garrido APRN Primary Care Provider Unava ilable Reason for Visit * Reason Comments Medication Refill Encounter Details Date Type Department Care Team (Late st Contact Info) Description 06/06/2020 Refill [facility] [address] [place] [address] Michelle Garrido APRN Medication Refill [...] TO 30 DAYS. 90 Tab 1 06/08/2020 09/09/2020 documented in this encounter Plan of Treatment Upcoming Encounters Date Type Department Care Team (Late st Contact Info) Description 06/28/2024 9:40 AM EST Clinical Support [facility] [address] [place], [place] [address] 11/19/2024 1:40 PM EDT Office Visit [facility] [address] [place] [phone] Lyndsay Brewer DO [address] [place] [address] documented as of this encounter Goals [...] mg Oral TabletIndications:Strain of left calf muscle Take 1 Tab by mouth every 8 hours as needed for Muscle spasms for up to 30 days. 04/13/2020 06/08/2020 documented as of this encounter Care Teams Fine Arts Model Relationship Specialty Start Date End Date Michelle Garrido APRN PCP - General Nurse Practitioner 01/09/17 01/14/21 documented as of this encounter
--- OUTSIDE RECORDS SUMMARY | 2024-05-29 15:45 | XMS_ITS | Encounter Summary ---
Author Organization [place] [address] Care Team Providers Care Airport Guide Name Role Phone Michelle Garrido APRN Primary Care Provider Unava ilable Reason for Visit * Reason Onset Date Comments No Show 07/15/2020 [facility] Encounter Details Date Type Department Care Team (Late st Contact Info) Description 07/15/2020 Telephone [facility] [address] [place] [address] [place] [address] [place] [address] No Show ([facility]) Social History Tobacco Use Types Packs/Day Years [...] 8:15 AM EST Maddy White, RMA * Does this person have serious difficulty walking or climbing stairs? Answer Date of Assessment Author No 07/03/2019 8:15 AM EST Maddy White, RMA * Does this person have difficulty dressing or bathing? Answer Date of Assessment Author No 07/03/2019 8:15 AM EST Maddy White, RMA * Because of a physical, mental or emotional condition, does this person have difficulty doing errands alone such as visiting a doctor's office or shopping? Answer Date of Assessment Author No 07/03/2019 8:15 AM EST Maddy White, RMJane documented as of this encounter Mental Status * Because of a physical, mental or emotional condition, does this person have serious difficulty concentrating, remembering or making decisions? Answer Entry Date Author No 07/03/2019 8:15 AM EST Maddy White, RMJane documented in this encounter Miscellaneous Notes * Telephone Encounter - Esthela Barron, Clerical Staff - 07/15/2020 2:10 PM EST Canceled appointment less than 24 hrs prior to scheduled appointment time documented in this encounter Plan of Treatment Upcoming Encounters Date Type Department Care Team (Late st Contact Info) Description 06/28/2024 9:40 AM EST Clinical Support [place] [address] [place] [phone] 11/19/2024 1:40 PM EDT Office Visit [facility] [address] [place] [phone] Lyndsay Brewer, DO [address] [place] [address] documented as of this encounter [...] on filedocumented in this encounter Care Teams Airport Guide Relationship Specialty Start Date End Date Michelle Garrido APRN PCP - General Nurse Practitioner 01/09/17 01/14/21 documented as of this encounter
--- OUTSIDE RECORDS SUMMARY | 2024-05-29 15:45 | XMS_ITS | Encounter Summary ---
Author Organization [facility] [place] [address] Care Team Providers Care Horticultural Nursery Assistant Name Role Phone Michelle Garrido APRN Primary Care Provider Unava ilable Encounter Details Date Type Department Care Team (Latest Contact Info) Description 06/16/2020 Travel Social History Tobacco Use Types Packs/Day [...] EST Clinical Support [facility] [address] [place] [address] 11/19/2024 1:40 PM EDT Office Visit [facility] [address] [place] [phone] Lyndsay Brewer DO [address] [facility] [address] [place] [address] documented as of this encounter [...] on filedocumented in this encounter Care Teams Horticultural Nursery Assistant Relationship Specialty Start Date End Date Michelle Garrido APRN PCP - General Nurse Practitioner 01/09/17 01/14/21 documented as of this encounter
--- OUTSIDE RECORDS SUMMARY | 2024-05-29 15:45 | XMS_ITS | Encounter Summary ---
Author Organization [place] [address] Care Team Providers Care Spreading Machine Operator Name Role Phone Michelle Garrido APRN Primary Care Provider Unava ilable Reason for Referral * Consultation (Routine) - Closed Specialty Diagnoses / Procedures Referred By Gus kunz Referred To Contact Neurology Diagnoses Paresthesia of right lower extremity Michelle Garrido APRN [facility] [address] [place] [phone] Phone: tel: fax: Referral ID Status Reason Start Date Expiration Date Visits Re quested Visits Authorized [id number] Closed 06/17/2020 06/17/2021 99 99 Reason for Visit * Reason Comments Numbness Encounter Details Date Type Department Care Team (Late st Contact Info) Description 06/17/2020 8:30 AM EST Office Visit [facility] [address] [place] [address] Michelle Garrido APRN Paresthesia of right lower extremity (Primary Dx); Bipolar disorder in remission (HCC) Social History Tobacco Use Types Packs/Day [...] Sign Reading Time Taken Comments Blood Pressure 162/84 06/17/2020 8:34 AM EST Pulse 88 06/17/2020 8:34 AM EST Temperature 36.6 ??C (97.9 ??F) 06/17/2020 8:34 AM ES T Respiratory Rate - - Oxygen Saturation 98% 06/17/2020 8:34 AM EST Inhaled Oxygen Concentration - - Weight 96.2 kg (212 lb) 06/17/2020 8:34 AM EST Height 170.2 cm (5' 7 ) 06/17/2020 8:34 AM EST Body Mass Index 33.2 06/17/2020 8:34 AM EST documented in this encounter Functional [...] this encounter Progress Notes * Michelle Garrido, MATERIALS RESEARCH ENGINEER - 06/17/2020 8:30 AM EST Vitals: 06/17/20 0834 BP: 162/84 Pulse: 88 Temp: 97.9 ??F (36.6 ??C) TempSrc: Temporal SpO2: 98% Weight: 212 lb (96.2 kg) Height: 5' 7 (1.702 m) SUBJECTIVE: Chief Complaint Patient presents with ??? Numbness HPI: Pt started to have numbness in right medial side of calf. He woke up from sleep 3 nights ago and it has not stopped since then. He has tried heat/ice, elevation, rest. He denies back pain, weakness, urinary changes or saddle anesthesia. Pt reports sleeps with pillow between his legs. 3 days ago woke up with pins and needles sensation of medial right calf. Nothing he has tried improve his symptoms. Prior to this pt was seeing [facility] for pain of right lateral calf pain and extreme turning out of the right foot when walking. Hada normal xray and EMG of that lower extremity. Both were unremarkable. It was determined that pt was toeing out due to ongoing right knee pain r/t DDD. Pt has scheduled knee replacement in early July. He was also Determined to have an old fracture of the right ankle. Had NM bone scan, whole body done on 05/11/2020 at [facility] and was unremarkable other than DDD of bilateral knees, R>L. Review of Systems Constitutional: Negative for chills, diaphoresis and fever. Respiratory: Negative for cough, shortness of breath and wheezing. Cardiovascular: Negative for chest pain, palpitations and leg swelling. Gastrointestinal: Negative for abdominal pain, blood in stool, diarrhea, nausea and vomiting. Genitourinary: Negative for difficulty urinating, frequency and hematuria. Skin: Negative for wound. Neurological: Positive for numbness ( local area of medial right calf with pins/needles sensation, no pain). Negative for dizziness, syncope, weakness, light-headedness and headaches. Psychiatric/Behavioral: Negative for dysphoric mood and sleep disturbance. The patient is not nervous/anxious. OBJECTIVE: Physical Exam Cardiovascular: Rate and Rhythm: Normal rate and regular rhythm. Pulses: Normal pulses. Heart sounds: Normal heart sounds. Pulmonary: Effort: Pulmonary effort is normal. Breath sounds: Normal breath sounds. Abdominal: General: Bowel sounds are normal. There is no distension. Palpations: Abdomen is soft. Tenderness: There is no abdominal tenderness. There is no guarding. Musculoskeletal: Right lower leg: No edema. Left lower leg: No edema. Skin: General: Skin is warm. Capillary Refill: Capillary refill takes less than 2 seconds. Neurological: Mental Status: He is alert and oriented to person, place, and time. Sensory: Sensation is intact. Motor: Motor function is intact. Coordination: Coordination is intact. Deep Tendon Reflexes: Reflex Scores: Patellar reflexes are 2+ on the right side and 2+ on the left side. .this Assessment Diagnoses and all orders for this visit: Paresthesia of right lower extremity - AMB REFERRAL TO NEUROLOGY - CBC WITH DIFF; Future - BASIC METABOLIC PANEL; Future - VITAMIN D 25 HYDROXY; Future Bipolar disorder in remission (HCC) (Chronic) Overview: Was related to substance abuse. Stable now. * Maddy White RMA - 06/17/2020 8:30 AM EST Venipuncture. Right antecubital. 1 gold, 1 mint, 1 purple. documented in this encounter Miscellaneous Notes * Patient Instructions - Michelle Garrido APRN - 06/17/2020 8:30 AM EST Images from the original note were not included. Patient Education Paresthesia Paresthesia is an abnormal burning or prickling sensation. It is usually felt in the hands, arms, legs, or feet. However, it may occur in any part of the body. Usually, paresthesia is not painful. Itmay feel like: ?? Tingling or numbness. ?? Buzzing. ?? Itching. Paresthesia may occur without any clear cause, or it may be caused by: ?? Breathing too quickly (hyperventilation). ?? Pressure on a nerve. ?? An underlying medical condition. ?? Side effects of a medication. ?? Nutritional deficiencies. ?? Exposure to toxic chemicals. Most people experience temporary (transient) paresthesia at some time in their lives. For some people, it may be long-lasting (chronic) because of an underlying medical condition. If you have paresthesia that lasts a long time, you may need to be evaluated by your health care provider. Follow these instructions at home: Alcohol use ?? Do not drink alcohol if: ? Your health care provider tells you not to drink. ? You are , may be , or are planning to become . ?? If you drink alcohol: ? Limit how much you use to: ?? 0-1 drink a day for women. ?? 0-2 drinks a day for men. ? Be aware of how much alcohol is in your drink. In the [place] one drink equals one 12 oz bottle of beer (355 mL), one 5 oz glass of wine (148 mL), or one 1?? oz glass of hard liquor (44 mL). Nutrition ?? Eat a healthy diet. This includes: ? Eating foods that are high in fiber, such as fresh fruits and vegetables, whole grains, and beans. ? Limiting foods that are high in fat and processed sugars, such as fried or sweet foods. General instructions ?? Take hrru-rhm-zafjfjl and prescription medicines only as told by your health care provider. ?? Do not use any products that contain nicotine or tobacco, such as cigarettes and e-cigarettes. These can keep blood from reaching damaged nerves. If you need help quitting, ask your health care provider. ?? If you have diabetes, work closely with your health care provider to keep your blood sugar undercontrol. ?? If you have numbness in your feet: ? Check every day for signs of injury or infection. Watch for redness, warmth, and swelling. ? Wear padded socks and comfortable shoes. These help protect your feet. ?? Keep all follow-up visits as told by your health care provider. This is important. Contact a health care provider if you: ?? Have paresthesia that gets worse or does not go away. ?? Have a burning or prickling feeling that gets worse when you walk. ?? Have pain, cramps, or dizziness. ?? Develop a rash. Get help right away if you: ?? Feel weak. ?? Have trouble walking or moving. ?? Have problems with speech, understanding, or vision. ?? Feel confused. ?? Cannot control your bladder or bowel movements. ?? Have numbness after an injury. ?? Develop new weakness in an arm or leg. ?? Faint. Summary ?? Paresthesia is an abnormal burning or prickling sensation that is usually felt in the hands, arms, legs, or feet. It may also occur in other parts of the body. ?? Paresthesia may occur without any clear cause, or it may be caused by breathing too quickly (hyperventilation), pressure on a nerve, an underlying medical condition, side effects of a medication, nutritional deficiencies, or exposure to toxic chemicals. ?? If you have paresthesia that lasts a long time, you may need to be evaluated by your health careprovider. This information is not intended to replace advice given to you by your health care provider. Make sure you discuss any questions you have with your health care provider. Document Released: 06/02/2003 Document Revised: 07/08/2019 Document Reviewed: 06/21/2018 [employer] Interactive Patient Education ?? 2020 [employer]. Patient Education Peripheral Neuropathy Peripheral neuropathy is a type of nerve damage. It affects nerves that carry signals between the spinal cord and the arms, legs, and the rest of the body (peripheral nerves). It does not affect nerves in the spinal cord or brain. In peripheral neuropathy, one nerve or a group of nerves may be damaged. Peripheral neuropathy is a broad category that includes many specific nerve disorders, like diabetic neuropathy, hereditary neuropathy, and carpal tunnel syndrome. What are the causes? This condition may be caused by: ?? Diabetes. This is the most common cause of peripheral neuropathy. ?? Nerve injury. ?? Pressure or stress on a nerve that lasts a long time. ?? Lack (deficiency) of B vitamins. This can result from alcoholism, poor diet, or a restricted diet. ?? Infections. ?? Autoimmune diseases, such as rheumatoid arthritis and systemic lupus erythematosus. ?? Nerve diseases that are passed from parent to child (inherited). ?? Some medicines, such as cancer medicines (chemotherapy). ?? Poisonous (toxic) substances, such as lead and mercury. ?? Too little blood flowing to the legs. ?? Kidney disease. ?? Thyroid disease. In some cases, the cause of this condition is not known. What are the signs or symptoms? Symptoms of this condition depend on which of your nerves is damaged. Common symptoms include: ?? Loss of feeling (numbness) in the feet, hands, or both. ?? Tingling in the feet, hands, or both. ?? Burning pain. ?? Very sensitive skin. ?? Weakness. ?? Not being able to move a part of the body (paralysis). ?? Muscle twitching. ?? Clumsiness or poor coordination. ?? Loss of balance. ?? Not being able to control your bladder. ?? Feeling dizzy. ?? Sexual problems. How is this diagnosed? Diagnosing and finding the cause of peripheral neuropathy can be difficult. Your health care provider will take your medical history and do a physical exam. A neurological exam will also be done. This involves checking things that are affected by your brain, spinal cord, and nerves (nervous system). For example, your health care provider will check your reflexes, how you move, and what you can feel. You may have other tests, such as: ?? Blood tests. ?? Electromyogram (EMG) and nerve conduction tests. These tests check nerve function and how well the nerves are controlling the muscles. ?? Imaging tests, such as CT scans or MRI to rule out other causes of your symptoms. ?? Removing a small piece of nerve to be examined in a lab (nerve biopsy). This is rare. ?? Removing and examining a small amount of the fluid that surrounds the brain and spinal cord (lumbar puncture). This is rare. How is this treated? Treatment for this condition may involve: ?? Treating the underlying cause of the neuropathy, such as diabetes, kidney disease, or vitamin deficiencies. ?? Stopping medicines that can cause neuropathy, such as chemotherapy. ?? Medicine to relieve pain. Medicines may include: ? Prescription or cvwb-aek-jxsqreu pain medicine. ? Antiseizure medicine. ? Antidepressants. ? Pain-relieving patches that are applied to painful areas of skin. ?? Surgery to relieve pressure on a nerve or to destroy a nerve that is causing pain. ?? Physical therapy to help improve movement and balance. ?? Devices to help you move around (assistive devices). Follow these instructions at home: Medicines ?? Take ecef-gji-gikjxws and prescription medicines only as told by your health care provider. Do not take any other medicines without first asking your health care provider. ?? Do not drive or use heavy machinery while taking prescription pain medicine. Lifestyle ?? Do not use any products that contain nicotine or tobacco, such as cigarettes and e-cigarettes. Smoking keeps blood from reaching damaged nerves. If you need help quitting, ask your health care provider. ?? Avoid or limit alcohol. Too much alcohol can cause a vitamin B deficiency, and vitamin B is needed for healthy nerves. ?? Eat a healthy diet. This includes: ? Eating foods that are high in fiber, such as fresh fruits and vegetables, whole grains, and beans. ? Limiting foods that are high in fat and processed sugars, such as fried or sweet foods. General instructions ?? If you have diabetes, work closely with your health care provider to keep your blood sugar undercontrol. ?? If you have numbness in your feet: ? Check every day for signs of injury or infection. Watch for redness, warmth, and swelling. ? Wear padded socks and comfortable shoes. These help protect your feet. ?? Develop a good support system. Living with peripheral neuropathy can be stressful. Consider talking with a mental health specialist or joining a support group. ?? Use assistive devices and attend physical therapy as told by your health care provider. This mayinclude using a walker or a cane. ?? Keep all follow-up visits as told by your health care provider. This is important. Contact a health care provider if: ?? You have new signs or symptoms of peripheral neuropathy. ?? You are struggling emotionally from dealing with peripheral neuropathy. ?? Your pain is not well-controlled. Get help right away if: ?? You have an injury or infection that is not healing normally. ?? You develop new weakness in an arm or leg. ?? You fall frequently. Summary ?? Peripheral neuropathy is when the nerves in the arms, or legs are damaged, resulting in numbness, weakness, or pain. ?? There are many causes of peripheral neuropathy, including diabetes, pinched nerves, vitamin deficiencies, autoimmune disease, and hereditary conditions. ?? Diagnosing and finding the cause of peripheral neuropathy can be difficult. Your health care provider will take your medical history, do a physical exam, and do tests, including blood tests and nerve function tests. ?? Treatment involves treating the underlying cause of the neuropathy and taking medicines to help control pain. Physical therapy and assistive devices may also help. This information is not intended to replace advice given to you by your health care provider. Make sure you discuss any questions you have with your health care provider. Document Released: 06/02/2003 Document Revised: 08/21/2017 Document Reviewed: 08/21/2017 Elsevier Interactive Patient Education ?? 2019 [employer]. documented in this encounter Plan of Treatment Upcoming Encounters Date Type Department Care Team (Late st Contact Info) Description 06/28/2024 9:40 AM EST Clinical Support [facility] [address] [place] [phone] 11/19/2024 1:40 PM EDT Office Visit [facility] Neurology [facility] [address] [place] [address] Lyndsay Brewer DO [address] [place] [address] Scheduled Referrals Name Type Priority Associated Diagnoses Orde r Schedule AMB REFERRAL TO NEUROLOGY Outpatient Referral Routine Paresthesia of right lower extremity Ordered: 06/17/2020 documented as of this encounter Goals Goal [...] Procedure Name Priority Date/Time Associated Diagnosis Comments VITAMIN D 25 HYDROXY Routine 06/17/2020 9:14 AM EST Paresthesia of right lower extremity CBC WITH DIFF Routine 06/17/2020 9:14 AM EST Paresthesia of right lower extremity BASIC METABOLIC PANEL Routine 06/17/2020 9:14 AM EST Paresthesia of right lower extremity documented in this encounter Results * VITAMIN D 25 HYDROXY (06/17/2020 9:14 AM EST) Vit D 25 OH 36.7 30.0 - 150.0 ng/mL 06/17/2020 4:04 PM EST [facility] Comment: Preferred: >= 30 ng/mL Insufficient: 21-29 ng/mL Deficient <= 20 ??ng/mL Possible Toxicity: >150 ng/mL Samples should not be taken from patients receiving therapy with high biotin doses (i.e. > 5 mg/day) until at least 8 hours following the last biotin administration. Blood VENOUS BLOOD / Unknown Venipuncture / Unknown 06/17/2020 9:14 AM EST 06/17/2020 9:14 AM EST Michelle Garrido MATERIALS RESEARCH ENGINEER CHEMISTRY ORDERABLES Final R esult [facility] [address] [facility] , [place] [address] * (ABNORMAL) BASIC METABOLIC PANEL (06/17/2020 9:14 AM EST) Sodium 141 136 - 145 mmol/L 06/17/2020 3:40 PM EST [facility] Potassium 4.3 3.5 - 5.0 mmol/L 06/17/2020 3:40 PM EST [facility] Chloride 107 98 - 107 mmol/L 06/17/2020 3:40 PM EST [facility] Total CO2 25 22 - 29 mmol/L 06/17/2020 3:40 PM EST [facility] Anion Gap 9 7 - 16 mmol/L 06/17/2020 3:40 PM EST [facility] Calcium 10.1 8.6 - 10.4 mg/dL 06/17/2020 3:40 PM EST [facility] Glucose Lvl 116(H) 74 - 100 mg/dL 06/17/2020 3:40 PM EST [facility] BUN 14 6 - 20 mg/dL 06/17/2020 3:40 PM EST [facility] Creatinine 1.01 0.67 - 1.30 mg/dL 06/17/2020 3:40 PM EST [facility] GFR Afr Am 98 >=60 mL/min/1.7 3 m2 06/17/2020 3:40 PM EST [facility] GFR Non Afr Am 85 >=60 mL/min/1.7 3 m2 06/17/2020 3:40 PM EST [facility] Comment: This estimated GFR was [...] VENOUS BLOOD / Unknown Venipuncture / Unknown 06/17/2020 9:14 AM EST 06/17/2020 9:14 AM EST Michelle Garrido APRN CHEMISTRY ORDERABLES Final R esult [facility] [address] [facility] , [address] [place] [id number] [facility] [address] [place], [place] [id number] * (ABNORMAL) CBC WITH DIFF (06/17/2020 9:14 AM EST) WBC 5.6 3.7 - 10.3 x10(3)/mcL 06/17/2020 3:15 PM EST [facility] RBC 4.38(L) 4.60 - 6.10 x10(6)/mcL 06/17/2020 3:15 PM EST [facility] Hgb 14.4 13.7 - 17.5 g/dL 06/17/2020 3:15 PM EST [facility] Hct 42.5 40.0 - 51.0 % 06/17/2020 3:15 PM EST [facility] MCV 97.0 80.0 - 100.0 fL 06/17/2020 3:15 PM EST [facility] MCH 32.9 26.0 - 34.0 pg 06/17/2020 3:15 PM EST [facility] MCHC 33.9 30.7 - 35.5 g/dL 06/17/2020 3:15 PM EST [facility] RDW 12.1 <=14.9 % 06/17/2020 3:15 PM EST [facility] Platelet 177 155 - 369 x10(3)/mcL 06/17/2020 3:15 PM EST [facility] MPV 10.7 8.8 - 12.5 fL 06/17/2020 3:15 PM EST [facility] Neut Percent 62.5 % 06/17/2020 3:15 PM EST [facility] Comment:Neutrophils equals s egs plus bands Imm Gran% 0.5 % 06/17/2020 3:15 PM EST [facility] Comment:Automated count of m etamyelocytes, myelocytes and promyelocytes. Lymph Percent 27.9 % 06/17/2020 3:15 PM EST [facility] [place] Percent 7.7 % 06/17/2020 3:15 PM EST [facility] Eos Percent 0.9 % 06/17/2020 3:15 PM EST [facility] Baso Percent 0.5 % 06/17/2020 3:15 PM EST [facility] Neut # 3.5 1.6 - 6.1 x10(3)/mcL 06/17/2020 3:15 PM EST [facility] Comment:Neutrophils equals s egs plus bands IMMGRAN# 0.0 0.0 - 0.1 x10(3)/mcL 06/17/2020 3:15 PM EST [facility] Comment:Automated count of m etamyelocytes, myelocytes and promyelocytes. An absolute IG <0.1 is reported as 0.0. Lymph # 1.6 1.2 - 3.9 x10(3)/mcL 06/17/2020 3:15 PM EST [facility] [place] # 0.4 0.3 - 0.9 x10(3)/mcL 06/17/2020 3:15 PM EST [facility] Eos# 0.1 0.0 - 0.5 x10(3)/mcL 06/17/2020 3:15 PM EST [facility] Baso # 0.0 0.0 - 0.1 x10(3)/mcL 06/17/2020 3:15 PM EST [facility] [employer] Blood Venipuncture / Unknown 06/17/2020 9:14 AM EST 06/17/2020 9:14 AM EST Michelle Garrido APRN HEMATOLOGY ORDERABLES Final Result Performing Organization Address City/State/[facility] Co de Phone Number [facility] [employer] [address] [facility] , [place] [address] documented in this encounter Visit Diagnoses Diagnosis Paresthesia of right lower extremity- Primary Bipolar disorder in remission (HCC) Bipolar disorder, unspecified documented in this encounter Care Teams Spreading Machine Operator Relationship Specialty Start Date End Date Michelle Garrido APRN PCP - General Nurse Practitioner 01/09/17 01/14/21 documented as of this encounter
--- OUTSIDE RECORDS SUMMARY | 2024-05-29 15:45 | XMS_ITS | Encounter Summary ---
Author Organization [place] [address] Care Team Providers Care Horticulture Worker Name Role Phone Michelle Garrido APRN Primary Care Provider Unava ilable Reason for Visit * Reason Onset Date Comments No Show 07/07/2020 SHORT NOTICE CAN ROBERT Encounter Details Date Type Department Care Team (Late st Contact Info) Description 07/07/2020 Telephone [facility] Neurology [facility] [address] [place] [address] [place] [address] [place] [phone] No Show (SHORT NOTICE CANCEL) Social History Tobacco Use Types Packs/Day Years [...] Assessment Author No 07/03/2019 8:15 AM EST ChristopherDarlinMaddyESTEFANY guthrie * Is the person blind or does he/she have serious difficulty seeing even when wearing glasses? Answer Date of Assessment Author No 07/03/2019 8:15 AM EST WhiteDarlinMaddy, RMA * Does this person have serious [...] encounter Miscellaneous Notes * Telephone Encounter - Alicia Moreno - 07/07/2020 11:33 AM EST Canceled appointment less than 24 hrs prior to scheduled appointment time documented in this encounter Plan of Treatment Upcoming Encounters Date Type Department Care Team (Late st Contact Info) Description 06/28/2024 9:40 AM EST Clinical Support [facility] [place] [address] [place] [address] 11/19/2024 1:40 PM EDT Office Visit SE[facility] Neurology [facility] [address] [place] [phone] Osman Lyndsay Polina, DO [address] [place] [address] documented as of this encounter [...] on filedocumented in this encounter Care Teams Horticulture Worker Relationship Specialty Start Date End Date Michelle Garrido APRN PCP - General Nurse Practitioner 01/09/17 01/14/21 documented as of this encounter
--- OUTSIDE RECORDS SUMMARY | 2024-05-29 15:45 | XMS_ITS | Encounter Summary ---
Author Organization [place] [address] Care Team Providers Care Manager Coding Name Role Phone Michelle Garrido APRN Primary Care Provider Unava ilable Reason for Visit * Nuclear Medicine (Routine) - Closed Specialty Diagnoses / Procedures Referred By Contac t Referred To Contact Radiology Diagnoses Pain, joint, foot, right Procedures NM BONE SCAN WHOLE BODY Carrie Samaniego PA-C [address] [place] [address] Phone: tel: fax: Referral ID Status Reason Start Date Expiration Date Visits Re quested Visits Authorized [id number] Closed 04/21/2020 04/21/2022 5 5 Encounter Details Date Type Department Care Team (Late st Contact Info) Description 05/11/2020 8:09 AM EST - 05/11/2020 11:59 PM EST Hospital Encounter [facility] [address] Carrie Samaniego PA-C [address] [place] [address] Discharge Disposition: Home or Self Care Social [...] Maddy Snow RMA documented in this encounter Medications at Time of Discharge Nebulizer Accessories (ALL FLOW 4000 KIT) [facility] [place] Formulary equivalent 1 Each 0 06/27/2012 ADVAIR DISKUS 500-50 mcg/dose Inhl Disk with DeviceIndications: Encounter for medication refill INHALE 1 PUFF BY MOUTH TWICE A DAY 180 Each 1 02/03/2020 1 albuterol (VENTOLIN HFA) 90 mcg/actuation Inhl HFA Aerosol InhalerIndications :Encounter for medication refill INHALE 1 TO 2 PUFFS EVERY 4 HOURS NEEDED FOR WHEEZING. 54 Inhaler 2 03/03/2020 1 betamethasone dipropionate (DIPROLENE) 0.05 % Top OintmentIndication s:Psoriasis Apply topically daily. 15 g 2 01/13/2020 1 celecoxib (CELEBREX) 200 mg Oral Capsule TAKE 1 CAPSULE BY MOUTH TWICE A DAY 180 Cap 04/30/2020 1 cyclobenzaprine (FLEXERIL) 10 mg Oral TabletIndications: Strain of left calf muscle Take 1 Tab by mouth every 8 hours as needed for Muscle spasms for up to 30 days. 90 Tab 1 04/13/2020 0 hydroCHLOROthiazid e (MICROZIDE) 12.5 mg Oral Capsule TAKE 1 CAPSULE BY MOUTH EVERY DAY 90 Cap 04/01/2020 1 losartan (COZAAR) 50 mg Oral Tablet TAKE 1 TABLET BY MOUTH EVERY DAY 90 Tab 04/02/2020 1 tadalafiL (CIALIS) 5 mg Oral TabletIndications: BPH without urinary obstruction Take 1 Tab by mouth as needed. for erectile dysfunction 90 Tab 1 01/13/2020 1 tamsulosin (FLOMAX) 0.4 mg Oral CapsuleIndications :BPH without urinary obstruction TAKE 1 CAPSULE BY MOUTH EVERY DAY AT NIGHT 90 Cap 1 01/13/2020 1 documented as of this encounter Discharge Disposition Disposition Code Departure Means Destination Home or Self Care documented in this encounter Plan of Treatment Upcoming Encounters Date Type Department Care Team (Late st Contact Info) Description 06/28/2024 9:40 AM EST Clinical Support ANTOLIN SEPULVED[facility] [address] [address] [place] [phone] 11/19/2024 1:40 PM EDT Office Visit SEP Neurology [facility] [address] [place] [address] Lyndsay Brewer DO [address] [place] [address] documented as of this encounter Goals Goal [...] Name Priority Date/Time Associated Diagnosis Comments NM BONE SCAN WHOLE BODY Routine 05/11/2020 12:20 PM EST Pain, joint, foot, right documented in this encounter Results * NM BONE SCAN WHOLE BODY (05/11/2020 12:20 PM EST) Anatomical Region Laterality Modality Nuclear Medicine 05/11/2020 12:2 0 PM EST Impressions 05/11/2020 12:34 PM EST No focal activity to explain ankle pain. Areas of degenerative activity as above most severely involving the knees, right greater than left. - Narrative 05/11/2020 12:34 PM EST WHOLE BODY BONE SCAN, ??05/11/2020 12:20 PM ?? CLINICAL HISTORY: ??M25.571-Pain in right ankle and joints of right jawm-DUD-27-CM COMPARISON: ??No recent x-rays. Left ankle x-ray 09/20/2019, right knee x-ray 12/16/2016 PROCEDURE COMMENTS: ??28.3 mCi of Ts09p-MIB. ??Whole body bone scanning per protocol. FINDINGS: Degenerative activity seen in the AC joints, left elbow, right first metacarpal carpal joint region. Bilateral knee activity, right worse than left present consistent with advanced osteoarthritis. There has been prior left hip replacement. There is no abnormal activity around the ankles to spleen patient's right ankle pain. There is some mild degenerative activity in bilateral midfoot and first MTP joint regions. Procedure Note Rishi Ridley MD - 05/11/2020 WHOLE BODY BONE SCAN, 05/11/2020 12:20 PM CLINICAL HISTORY: M25.571-Pain in right ankle and joints of right pzmz-OSH-82-CM COMPARISON: No recent x-rays. Left ankle x-ray 09/20/2019, right kneex-ray 12/16/2016 PROCEDURE COMMENTS: 28.3 mCi of Xt20c-UVG. Whole body bone scanningper protocol. FINDINGS: Degenerative activity seen in the AC joints, left elbow, right firstmetacarpal carpal joint region. Bilateral knee activity, right worse than left present consistent withadvanced osteoarthritis. There has been prior left hip replacement. There is no abnormal activity around the ankles to spleen patient's rightankle pain. There is some mild degenerative activity in bilateral midfoot and firstMTP joint regions. IMPRESSION: No focal activity to explain ankle pain. Areas of degenerative activity as above most severely involving the knees, right greater thanleft. - us Carrie Samaniego PA-C IMG NM ORDERABLES Final Res ult documented in this encounter Visit Diagnoses Not on filedocumented in this encounter Care Teams Manager Coding Relationship Specialty Start Date End Date Michelle Garrido APRN PCP - General Nurse Practitioner 01/09/17 01/14/21 documented as of this encounter
--- OUTSIDE RECORDS SUMMARY | 2024-05-29 15:45 | XMS_ITS | Encounter Summary ---
Author Organization [facility] [place] [place] [address] Care Team Providers Care [place] Regulator Name Role Phone Michelle Garrido APRN Primary Care Provider Unava ilable Encounter Details Date Type Department Care Team (Latest Contact Info) Description 07/30/2020 Travel Social History Tobacco Use Types Packs/Day [...] EST Clinical Support [facility] [address] [place] [address] 11/19/2024 1:40 PM EDT Office Visit SEP Neurology [facility] [address] [place] [address] Lyndsay Brewer DO [address] [facility] [address] [place] [address] documented as of [...] on filedocumented in this encounter Care Teams [place] Regulator Relationship Specialty Start Date End Date Michelle Garrido APRN PCP - General Nurse Practitioner 01/09/17 01/14/21 documented as of this encounter
--- OUTSIDE RECORDS SUMMARY | 2024-05-29 15:45 | XMS_ITS | Encounter Summary ---
Author Organization [place] [address] Care Team Providers Care Die Casting Machine Maintainer Name Role Phone Michelle Garrido APRN Primary Care Provider Willie aguila Encounter Details Date Type Department Care Team (Latest Contact Info) Description 08/14/2020 8:14 AM EST - 08/14/2020 11:59 PM EST Hospital Encounter [facility] [address] [place] [address] Covid19, Edg Lab Bromide Pre-op testing; Encounter for laboratory testing for COVID-19 virus Discharge Disposition: Home or Self Care Social [...] Discharge Nebulizer Accessories (ALL FLOW 4000 KIT) [facility] [place] [place] Formulary equivalent 1 Each 0 06/27/2012 ADVAIR [...] MOUTH TWICE A DAY 180 Cap 04/30/2020 02/22/202 1 cyclobenzaprine (FLEXERIL) 10 mg Oral TabletIndications: [...] AM EST Clinical Support [facility] [address] [place] [address] 11/19/2024 1:40 PM EDT Office Visit SEP Neurology [facility] [address] [place] [address] Lyndsay Brewer DO [address] [place] [address] documented as of this encounter Goals Goal Patient Goal Type Associated Problems Recent Progress Patient-Stated? Author Blood Pressure < 140/90 Blood Pressure 134/84(2023 1:16 PM EST) No Yana Choi RMA Eat better, exercise, reach an ideal body weight General No Yana Choi RMA Stay Tobacco Free Lifestyle No Yana Cohi RMA documented as of this encounter Procedures Procedure Name Priority Date/Time Associated Diagnosis Comments CORONAVIRUS 2019 Routine 08/14/2020 8:13 AM EST Pre-op testing Encounter for laboratory testing for COVID-19 virus documented in this encounter Results * CORONAVIRUS 2019 (08/14/2020 8:13 AM EST) CORONAVIRUS [id number] Not Detected Not Detected 08/14/2020 7:29 PM EST [employer] Comment:Caution should be ex ercised when interpreting a result of 'Not Detected'. A result of 'Not Detected' does not rule out COVID-19 and cannot be used as sole basis for treatment or patient management decisions. If COVID-19 is still suspected following a 'Not Detected' result, re-testing should be considered. Swab BOTH ANTERIOR NARES / Unknown 08/14/2020 8:13 AM EST 08/14/2020 8:13 AM EST Narrative PREFERRED [facility] - 08/14/2020 7:29 PM EST This test is a nucleic acid amplification test intended for the qualitative detection of nucleic acid from the SARS-CoV-2 in upper respiratory samples collected from individuals suspected of COVID-19. Test is performed on the [employer] platform under the FDA's Emergency Use Authorization (EUA). [facility] Provider Fact Sheet: https://www.fda.gov/media/864503/download [employer] Patient Fact Sheet: ??https://www.fda.gov/media/236630/download Michael Herr MD MICROBIOLOGY - GENERAL ORD ERABLES Final Result [employer] [address] [facility] , [address] [place] [id number] documented in this encounter Visit Diagnoses Diagnosis Pre-op testing Preoperative examination, unspecified Encounter for laboratory testing for COVID-19 virus documented in this encounter Care Teams Die Casting Machine Maintainer Relationship Specialty Start Date End Date Michelle Garrido APRN PCP - General Nurse Practitioner 01/09/17 01/14/21 documented as of this encounter
--- OUTSIDE RECORDS SUMMARY | 2024-05-29 15:45 | XMS_ITS | Encounter Summary ---
Author Organization [facility] [place] [address] Care Team Providers Care Power And Recovery Supervisor Name Role Phone Michelle Garrido APRN Primary Care Provider Unava ilable Encounter Details Date Type Department Care Team (Latest Contact Info) Description 08/14/2020 Travel Social History Tobacco Use Types Packs/Day [...] EST Clinical Support [facility] [address] [place] [address] 11/19/2024 1:40 PM EDT Office Visit SEP Neurology [facility] [address] [place] [address] Lyndsay Brewer DO [address] [facility] [address] [place] [address] documented as of this encounter [...] on filedocumented in this encounter Care Teams Power And Recovery Supervisor Relationship Specialty Start Date End Date Michelle Garrido APRN PCP - General Nurse Practitioner 01/09/17 01/14/21 documented as of this encounter
--- OUTSIDE RECORDS SUMMARY | 2024-05-29 15:45 | XMS_ITS | Encounter Summary ---
Author Organization [place] [address] Care Team Providers Care Plasma Cutting Machine Operator Name Role Phone Michelle Garrido APRN Primary Care Provider Unava ilable Reason for Visit * Reason Comments Medication Refill Encounter Details Date Type Department Care Team (Late st Contact Info) Description 07/30/2020 Refill [facility] [address] [place] [address] Michelle Garrido APRN Medication Refill [...] MOUTH EVERY DAY 30 Tab 07/31/2020 1 hydroCHLOROthiazid e (MICROZIDE) 12.5 mg Oral Capsule TAKE 1 CAPSULE BY MOUTH EVERY DAY 30 Cap 07/31/2020 1 documented in this encounter Plan of Treatment Upcoming Encounters Date Type Department Care Team (Late st Contact Info) Description 06/28/2024 9:40 AM EST Clinical Support [facility] [place] [address] [place] [phone] 11/19/2024 1:40 PM EDT Office Visit SEP Neurology [facility] [address] [place] [phone] Lyndsay Brewer, DO [address] [facility] [place] [address] documented as of this encounter Goals Goal [...] TAKE 1 CAPSULE BY MOUTH EVERY DAY 06/30/2020 07/31/2020 losartan (COZAAR) 50 mg Oral Tablet TAKE 1 TABLET BY MOUTH EVERY DAY 06/30/2020 07/31/2020 documented as of this encounter Care Teams Plasma Cutting Machine Operator Relationship Specialty Start Date End Date Michelle Garrido APRN PCP - General Nurse Practitioner 01/09/17 01/14/21 documented as of this encounter
--- OUTSIDE RECORDS SUMMARY | 2024-05-29 15:45 | XMS_ITS | Encounter Summary ---
Author Organization [place] [address] Care Team Providers Care Circulation Tender Name Role Phone Michelle Garrido APRN Primary Care Provider Willie aguila Encounter Details Date Type Department Care Team (Late st Contact Info) Description 06/05/2020 3:33 PM [email or web address] Hospital Encounter [facility] Referral Lab [address] [place] [address] Augie Ramires MD [address] [place] [address] Social History Tobacco Use Types Packs/Day Years [...] Maddy Snow RMA documented in this encounter Plan of Treatment Upcoming Encounters Date Type Department Care Team (Late st Contact Info) Description 06/28/2024 9:40 AM EST Clinical Support [place] [address] [place] [phone] 11/19/2024 1:40 PM EDT Office Visit SEP Neurology [facility] [address] [place] [address] Lyndsay Brewer DO [address] [place] [address] Scheduled Orders Name Type Priority Associated Diagnoses Orde r Schedule C-REACTIVE PROTEIN Lab Routine ONCE f or 1 Occurrences starting 06/05/2020 until 07/10/2020 SEDIMENTATION RATE AUTOMATED Lab Routine ONCE for 1 Occur rences starting 06/05/2020 until 07/10/2020 documented as of this encounter Goals Goal [...] 03/23/2021 03/23/2021 04/12/2021 10:1 2 PM EDT INFLUENZA 09/01/2021 09/01/2021 09/16/2021 10:1 3 PM EDT INFLUENZA 10/13/2021 10/13/2021 10/28/2021 10:1 2 PM EDT INFLUENZA 02/03/2022 02/03/2022 02/18/2022 10:1 2 PM EDT COVID-19 02/03/2022 02/03/2022 02/23/2022 10:1 2 PM EDT INFLUENZA 05/27/2022 05/27/2022 06/11/2022 10:1 2 PM EST INFLUENZA 02/24/2023 02/24/2023 03/10/2023 10:1 3 PM EDT INFLUENZA 11/23/2023 11/29/2023 12/13/2023 10:1 2 PM EDT INFLUENZA 02/06/2024 02/06/2024 02/20/2024 10:1 2 PM EDT documented as of this encounter Care Teams Circulation Tender Relationship Specialty Start Date End Date Michelle Garrido APRN PCP - General Nurse Practitioner 01/09/17 01/14/21 documented as of this encounter
--- OUTSIDE RECORDS SUMMARY | 2024-05-29 15:45 | XMS_ITS | Encounter Summary ---
Author Organization [place] [address] Care Team Providers Care Oxygen System Tester Name Role Phone Michelle Garrido APRN Primary Care Provider Unava ilable Reason for Referral * GI Procedure (Routine) - Closed Specialty Diagnoses / Procedures Referred By Contac t Referred To Contact Diagnoses Rectal bleeding Diarrhea, unspecified type Procedures AMB COLON W ANESTH COMM ORDER Michael Mckeon MD Phone: tel: fax: Referral ID Status Reason Start Date Expiration Date Visits Re quested Visits Authorized [id number] Closed 07/30/2020 07/30/2021 1 1 Reason for Visit * Reason Comments Irritable Bowel Syndrome Colonoscopy * Consultation (Urgent) - Closed Specialty Diagnoses / Procedures Referred By Contac t Referred To Contact Gastroenterology Diagnoses Diarrhea, unspecified type Marcela De Leon MD SEP GASTRO [address] [address] Phone: tel: Referral ID Status Reason Start Date Expiration Date Visits Re quested Visits Authorized [id number] Closed 07/15/2020 07/15/2021 99 99 Encounter Details Date Type Department Care Team (Late st Contact Info) Description 07/30/2020 8:00 AM EST Telemedicine SEP Gastro CV [address] [facility] [address] [place] [address] Michael Mckeon MD [facility] [place] [phone] Rectal bleeding (Primary Dx); Diarrhea, unspecified type Social History Tobacco Use Types [...] - Inhaled Oxygen Concentration - - Weight 93 kg (205 lb) 07/30/2020 7:52 AM EST Height 170.2 cm (5' 7 ) 07/30/2020 7:52 AM EST Body Mass Index 32.11 07/30/2020 7:52 AM EST documented in this encounter Functional [...] Progress Notes * Michael Mckeon MD - 07/30/2020 8:00 AM EST [facility] Gastroenterology Video Consult Note 07/30/2020 This was [...] REVISION-ANTERIOR ; Surgeon: Augie Ramires MD; Location: [facility]; Service: Orthopedics ??? KNEE SURGERY LEFT ACL RECONSTRUCTION ??? KNEE SURGERY LEFT ARTHROSCOPIES IRRAGATION X 7 FOR INFECTION ??? KNEE SURGERY RIGHT ARTHROSCOPIC MENICUS REPAIR ??? SHOULDER ARTHROSCOPY Right 11/29/2019 RIGHT SHOULDER ARTHROSCOPIC ROTATOR CUFF REPAIR DECOMPRESSION ACROMIOPLASTY, ACROMIOCLAVICULAR JOINT EXCISION; Surgeon: Kenny Loja MD; Location: [facility]; Service: Orthopedics ??? TOTAL HIP ARTHROPLASTY Left [...] Zuhair Whitlock in consultation Michael Herr MD Box Person [facility] [phone] documented in this encounter Miscellaneous Notes * Addendum Note - Michael Mckeon MD - 07/30/2020 8:00 AM ESTAddended by: MICHAEL MCKEON on: 07/30/2020 08:38 AM Modules accepted: Orders documented in this encounter Plan of Treatment Upcoming Encounters Date Type Department Care Team (Late st Contact Info) Description 06/28/2024 9:40 AM EST Clinical Support [facility] [address] [place] [phone] 11/19/2024 1:40 PM EDT Office Visit SEP Neurology [facility] [address] [place] [phone] Lyndsay Brewer, DO [address] [place] [address] Scheduled Orders Name Type Priority Associated Diagnoses Orde r Schedule FAT FECAL QUALITATIVE - REF LAB Lab Routine Diarrhea, unspecified type 1 Occurrences starting 07/30/2020 until 07/30/2021 FECAL CALPROTECTIN Lab Routine Diarrhea, unspecified type 1 Occurrences starting 07/30/2020 until 07/30/2021 documented as of this encounter Goals Goal Patient Goal Type Associated Problems Recent Progress Patient-Stated? Author Blood Pressure < 140/90 Blood Pressure 134/84(2023 1:16 PM EST) No Yana Choi RMA Eat better, exercise, reach an ideal body weight General No Yana Choi, RMA Stay Tobacco Free Lifestyle No Yana Choi RMA documented as of this encounter Visit Diagnoses Diagnosis Rectal bleeding- Primary Hemorrhage of rectum and anus Diarrhea, unspecified type documented in this encounter Orders Nursing Count Last Ordered Date First Orde red Date AMB COLON W ANESTH COMM ORDER 1 07/30/2020 documented in this encounter Care Teams Oxygen System Tester Relationship Specialty Start Date End Date Michelle Garrido APRN PCP - General Nurse Practitioner 01/09/17 01/14/21 documented as of this encounter
--- OUTSIDE RECORDS SUMMARY | 2024-05-29 15:45 | XMS_ITS | Encounter Summary ---
Author Organization [place] [address] Care Team Providers Care Ice Plant Operator Name Role Phone Michelle Garrido APRN Primary Care Provider Unava ilable Reason for Visit * Reason Comments Medication Refill Encounter Details Date Type Department Care Team (Late st Contact Info) Description 08/16/2020 Refill [facility] [address] [place] [address] Michelle Garrido APRN Medication Refill [...] Date celecoxib (CELEBREX) 200 mg Oral Capsule TAKE 1 CAPSULE BY MOUTH TWICE A DAY 180 Cap 3 08/17/2020 documented in this encounter Plan of Treatment Upcoming Encounters Date Type Department Care Team (Late st Contact Info) Description 06/28/2024 9:40 AM EST Clinical Support [facility] [place] [address] [place] [address] 11/19/2024 1:40 PM EDT Office Visit SEP Neurology [facility] [address] [place] [address] Lyndsay Brewer DO [address] [place] [address] documented as of this encounter [...] te celecoxib (CELEBREX) 200 mg Oral Capsule TAKE 1 CAPSULE BY MOUTH TWICE A DAY 04/30/2020 08/17/2020 documented as of this encounter Care Teams Ice Plant Operator Relationship Specialty Start Date End Date Michelle Garrido APRN PCP - General Nurse Practitioner 01/09/17 01/14/21 documented as of this encounter
--- OUTSIDE RECORDS SUMMARY | 2024-05-29 15:46 | XMS_ITS | Encounter Summary ---
Author Organization [place] [address] Care Team Providers Care Sap Architect Name Role Phone Michelle Garrido APRN Primary Care Provider Unava ilable Reason for Visit * Reason Onset Date Comments Prior Authorization 01/21/2020 kiana Encounter Details Date Type Department Care Team (Late st Contact Info) Description 01/21/2020 Telephone [facility] [address] [place] [address] Michelle Garrido APRN Prior Authorization (kiana) Social History Tobacco Use Types Packs/Day Years [...] have Coronavirus / COVID-19? No / Unsure 01/13/2020 8:25 AM EDT documented as of this encounter [...] Assessment Author No 07/03/2019 8:15 AM Maddy Snow, ESTEFANY * Does this person have difficulty [...] Maddy Snow RMA documented in this encounter Miscellaneous Notes * Telephone Encounter - Farzana Garrido MA - 02/03/2020 10:57 AM EDT Spoke to pharmacy, needed to complete PA again. I called PA dept instant approval conf# [id number] 11/05/19-02/02/21. pharmacy does not have in stock will order today and have for pt tomorrow. Forrest informed. * Telephone Encounter - Veena Rincon - 01/30/2020 8:22 AM EDT Pt's emergency contact, Abi Sherwood ( not on ACF), stated pt. Has been without medication for almost 3 weeks. Pharmacy stated prior authorization has not been completed. She is requesting a call back from Farzana. Please advise. * Telephone Encounter - Aurora Whiting - 01/22/2020 4:45 PM EDTSumashish: DARRION As per pt was told by pharm medication still not being cover, pharm has run PA twice, please adv * Telephone Encounter - Farzana Garrido MA - 01/21/2020 4:31 PM EDT PA completed on covermymeds. Approved, Pt informed. documented in this encounter Plan of Treatment Upcoming Encounters Date Type Department Care Team (Late st Contact Info) Description 06/28/2024 9:40 AM EST Clinical Support [facility] [address] [place] [address] 11/19/2024 1:40 PM EDT Office Visit SEP Neurology [facility] [address] [place] [address] Lyndsay Brewer DO [address] [facility] [address] [place] [address] documented as of this encounter [...] on filedocumented in this encounter Care Teams Sap Architect Relationship Specialty Start Date End Date Michelle Garrido APRN PCP - General Nurse Practitioner 01/09/17 01/14/21 documented as of this encounter
--- OUTSIDE RECORDS SUMMARY | 2024-05-29 15:46 | XMS_ITS | Encounter Summary ---
Author Organization [facility] [place] [address] Care Team Providers Care Order Editor Name Role Phone Michelle Garrido APRN Primary Care Provider Unava ilable Encounter Details Date Type Department Care Team (Latest Contact Info) Description 01/13/2020 Travel Social History Tobacco Use Types Packs/Day [...] EST Clinical Support [facility] [address] [place] [address] 11/19/2024 1:40 PM EDT Office Visit SEP Neurology [facility] [address] [place] [address] Lyndsay Brewer DO [address] [facility] [address] [place] [address] documented as of this encounter [...] on filedocumented in this encounter Care Teams Order Editor Relationship Specialty Start Date End Date Michelle Garrido APRN PCP - General Nurse Practitioner 01/09/17 01/14/21 documented as of this encounter
--- OUTSIDE RECORDS SUMMARY | 2024-05-29 15:46 | XMS_ITS | Encounter Summary ---
Author Organization [place] [address] Care Team Providers Care Interactive Media Marketing Strategist Name Role Phone Michelle Garrido APRN Primary Care Provider Unava ilable Reason for Visit * Reason Comments Rash Encounter Details Date Type Department Care Team (Late st Contact Info) Description 01/13/2020 8:30 AM EDT Office Visit [facility] [address] [email or web address] [address] Michelle Garrido APRN Psoriasis (Primary Dx); BPH without urinary obstruction; Urinary frequency Social History Tobacco Use Types Packs/Day Years [...] Sign Reading Time Taken Comments Blood Pressure 154/84 01/13/2020 8:37 AM EDT Pulse 81 01/13/2020 8:37 AM EDT Temperature 37.1 ??C (98.8 ??F) 01/13/2020 8:37 AM ED T Respiratory Rate - - Oxygen Saturation 99% 01/13/2020 8:37 AM EDT Inhaled Oxygen Concentration - - Weight 97.1 kg (214 lb) 01/13/2020 8:37 AM EDT Height 170.2 cm (5' 7 ) 01/13/2020 8:37 AM EDT Body Mass Index 33.52 01/13/2020 8:37 AM EDT documented in this encounter Functional [...] AT NIGHT 90 Cap 1 01/13/2020 1 tadalafiL (CIALIS) 5 mg Oral TabletIndications: BPH without urinary obstruction Take 1 Tab by mouth as needed. for erectile dysfunction 90 Tab 1 01/13/2020 1 betamethasone dipropionate (DIPROLENE) 0.05 % Top OintmentIndication s:Psoriasis Apply topically daily. 15 g 2 01/13/2020 1 documented in this encounter Progress Notes * Michelle Garrido APRN - 01/13/2020 8:30 AM EDT Vitals: 01/13/20 0837 BP: 154/84 Pulse: 81 Temp: 98.8 ??F (37.1 ??C) TempSrc: Temporal SpO2: 99% Weight: 214 lb (97.1 kg) Height: 5' 7 (1.702 m) SUBJECTIVE: Chief Complaint Patient presents with ??? Rash HPI: Pt c/o rash on forearm and feet for about 2 weeks. He has tried benadryl, triamcinolone, and anti-itch cream w/o relief. Also was started on flomax, he states that it is helping his urine stream, but he is still waking up frequently to urinate. Review of Systems Constitutional: Negative for chills, diaphoresis and fever. Genitourinary: Positive for frequency. Negative for dysuria and hematuria. Skin: Positive for rash ( hands/wrists/feet). OBJECTIVE: Physical Exam Cardiovascular: Rate and Rhythm: Normal rate and regular rhythm. Pulses: Normal pulses. Heart sounds: Normal heart sounds. Pulmonary: Effort: Pulmonary effort is normal. Breath sounds: Normal breath sounds. Skin: Findings: Rash ( erythematous flaking rash with silver scales on bilateral dorsal feet. erythematous dry rash of bilateral wrists.) present. Neurological: Mental Status: He is alert. Assessment Diagnoses and all orders for this visit: Psoriasis - betamethasone dipropionate (DIPROLENE) 0.05 % Top Ointment; Apply topically daily. Dispense: 15 g; Refill: 2 BPH without urinary obstruction - tadalafiL (CIALIS) 5 mg Oral Tablet; Take 1 Tab by mouth as needed. for erectile dysfunction Dispense: 90 Tab; Refill: 1 - tamsulosin (FLOMAX) 0.4 mg Oral Capsule; TAKE 1 CAPSULE BY MOUTH EVERY DAY AT NIGHT Dispense: 90 Cap; Refill: 1 Urinary frequency - SEP URINALYSIS POC documented in this encounter Plan of Treatment Upcoming Encounters Date Type Department Care Team (Late st Contact Info) Description 06/28/2024 9:40 AM EST Clinical Support [facility] [address] [place] [phone] 11/19/2024 1:40 PM EDT Office Visit [facility] Neurology [facility] [address] [facility] [place] [address] Lyndsay Brewer DO [address] [place] [address] documented as of this encounter [...] Procedure Name Priority Date/Time Associated Diagnosis Comments SEP URINALYSIS POC Routine 01/13/2020 8: 44 AM EDT Urinary frequency documented in this encounter Results * (ABNORMAL) SEP URINALYSIS POC (01/13/2020 8:44 AM EDT) UA Color POC Yellow 01/13/2020 8:46 AM EDT [facility] UA Appear POC Clear Clear 01/13/2020 8:46 AM EDT [facility]A Gluc POC Negative Negative mg/dL 01/13/2020 8:46 AM EDT [facility] Bili POC Negative Negative 01/13/2020 8:46 AM EDT [facility]A Ketones POC Negative Negative mg/dL 01/13/2020 8:46 AM EDT [facility] UA SG POC 1.010 1.001 - 1.035 01/13/2020 8:46 AM EDT [facility]A Blood POC Trace-Intac t(A) Negative 01/13/2020 8:46 AM EDT [facility] pH POC 6.5 5.0 - 8.0 01/13/2020 8:46 AM EDT [facility] Protein POC Negative Negative mg/dL 01/13/2020 8:46 AM EDT [facility] Urobilinogen POC 0.2 0.2, 1.0 01/13/2020 8:46 AM EDT [facility] Nitrite POC Negative Negative 01/13/2020 8:46 AM EDT [facility] Leuk Est POC Negative Negative 0 8:46 AM EDT [facility] Urine URINE SPECIMEN COLLECTION / Unknown 01/13/2020 8:44 AM EDT 01/13/2020 8:46 AM EDT Michelle Garrido APRN POINT OF CARE TEST ORDERABLE S Final Result [facility] [address] [place] [phone] documented in this encounter Visit Diagnoses Diagnosis Psoriasis- Primary Other psoriasis BPH without urinary obstruction Hypertrophy of prostate without urinary obstruction and other lower urinary tract symptoms (LUTS) Urinary frequency documented in this encounter Discontinued Medications Medication Sig Discontinue Reason Start Date End Da te tadalafil (CIALIS) 5 mg Oral TabletIndications:BPH without urinary obstruction TAKE 1 TAB BY MOUTH NEEDED. FOR ERECTILE DYSFUNCTION Reorder 07/01/2019 01/13/2020 tamsulosin (FLOMAX) 0.4 mg Oral CapsuleIndications:BPH without urinary obstruction TAKE 1 CAPSULE BY MOUTH EVERY DAY AT NIGHT Reorder 12/26/2019 01/13/2020 documented as of this encounter Care Teams Interactive Media Marketing Strategist Relationship Specialty Start Date End Date Michelle Garrido APRN PCP - General Nurse Practitioner 01/09/17 01/14/21 documented as of this encounter
--- OUTSIDE RECORDS SUMMARY | 2024-05-29 15:46 | XMS_ITS | Encounter Summary ---
Author Organization [place] [address] Care Team Providers Care Capacity Planner Name Role Phone Michelle Garrido APRN Primary Care Provider Unava ilable Reason for Visit * Reason Onset Date Comments Medication Management 12/04/2019 Encounter Details Date Type Department Care Team (Late st Contact Info) Description 12/04/2019 Tele[place] [facility] [address] [place] [address] Michelle Garrido APRN Medication Management [...] have Coronavirus / COVID-19? No / Unsure 11/29/2019 7:28 AM EDT documented as of this encounter [...] Telephone Encounter - Farzana Garrido MA - 12/04/2019 5:10 PM EDT Pt informed * Telephone Encounter - Farzana Garrido MA - 12/04/2019 5:09 PM EDT ----- Message from Michelle Garrido APRN sent at 12/04/2019 4:47 PM EDT ----- Regarding: FW: Non-Urgent Medical Question Contact: [facility] sent to pharmacy, please have patient schedule 1 month f/u appt ----- Message ----- From: Rocio Brewster CMA Sent: 12/03/2019 9:41 AM EDT To: Michelle Garrido APRN Subject: FW: Non-Urgent Medical Question Please advise if needs another appt. ----- Message ----- From: Zuhair Whitlock Sent: 12/03/2019 9:40 AM EDT To: Tiffany_Luzmariabarbra_Clinical Subject: Non-Urgent Medical Question We had discussed a medication called flomax concerning my frequent urination and apparent inabilityto empty my bladder before this pandemic it is becoming extremely annoying and would like to discuss this with Michelle documented in this encounter Plan of Treatment Upcoming Encounters Date Type Department Care Team (Late st Contact Info) Description 06/28/2024 9:40 AM EST Clinical Support [facility] [address] [email or web address] [place] [phone] 11/19/2024 1:40 PM EDT Office Visit [facility] Neurology [facility] [address] [place] [address] Lyndsay Brewer DO [address] [place] [address] documented as of this encounter [...] on filedocumented in this encounter Care Teams Capacity Planner Relationship Specialty Start Date End Date Michelle Garrido APRN PCP - General Nurse Practitioner 01/09/17 01/14/21 documented as of this encounter
--- OUTSIDE RECORDS SUMMARY | 2024-05-29 15:46 | XMS_ITS | Encounter Summary ---
Author Organization [facility] [address] Care Team Providers Care Manager Wellness Name Role Phone Michelle Garrido APRN Primary Care Provider Unava ilable Encounter Details Date Type Department Care Team (Latest Contact Info) Description 04/23/2020 Travel Social History Tobacco Use Types Packs/Day [...] have Coronavirus / COVID-19? No / Unsure 04/23/2020 12:18 PM EDT documented as of this encounter [...] EST Clinical Support [facility] [address] [employer] [address] 11/19/2024 1:40 PM EDT Office Visit [facility] Neurology [facility] [address] [place] [address] Lyndsay Brewer DO [address] [facility] [address] [place] [address] documented as of this encounter [...] filedocumented in this encounter Care Teams Manager Wellness Relationship Specialty Start Date End Date Michelle Garrido APRN PCP - General Nurse Practitioner 01/09/17 01/14/21 documented as of this encounter
--- OUTSIDE RECORDS SUMMARY | 2024-05-29 15:46 | XMS_ITS | Encounter Summary ---
Author Organization [place] [address] Care Team Providers Care Inspector Watch Parts Name Role Phone Michelle Garrido APRN Primary Care Provider Unava ilable Reason for Visit * Auth/Cert/Inpt Specialty Diagnoses / Procedures Referred By Contac t Referred To Contact Diagnoses Tear of right rotator cuff, unspecified tear extent, unspecified whether traumatic Rupture long head biceps tendon, right, initial encounter Tear of right rotator cuff, unspecified tear extent, unspecified whether traumatic [M75.101] Rupture long head biceps tendon, right, initial encounter [S46.111A] Procedures MT REPAIR COMPL ROTATOR CUFF AVULSN,CHR MT SHOULDER SCOPE BONE SHAVING MT SHLDR ARTHROSCOP,PART DEBRIDE MT SHLDR ARTHROSCOP,EXTEN DEBRIDE RIGHT SHOULDER ARTHROSCOPIC ROTATOR CUFF REPAIR DECOMPRESSION ACROMIOPLASTY, ACROMIOCLAVICULAR JOINT EXCISION WITH BICEP TENODESIS Referral ID Status Reason Start Date Expiration Date Visits Re quested Visits Authorized [id number] 1 1 Encounter Details Date Type Department Care Team (Late st Contact Info) Description 11/29/2019 8:05 AM EDT Ancillary Procedure EDG [facility] [address] [facility] [address] [place] [address] Kenny Loja MD [address] [facility] [address] [place] [address] Social History Tobacco Use Types Packs/Day Years [...] EST Clinical Support [facility] [place] [facility] [address] [place] [phone] 11/19/2024 1:40 PM EDT Office Visit [facility] Neurology [facility] [address] [place] [address] Osman Lyndsay PolinaDO conrado [address] [place] [address] documented as of this encounter [...] Procedure Name Priority Date/Time Associated Diagnosis Comments US ANES GUIDANCE FOR NERVE BLOCK STAT 11/29/2019 8:03 AM EDT documented in this encounter Results * US ANES GUIDANCE FOR NERVE BLOCK (11/29/2019 8:03 AM EDT) Narrative GenericuserShanice - 11/29/2019 8:03 AM EDT Ultrasound guided nerve block performed by Anesthesiologist The study image(s) are for reference only and will not be interpreted by a Radiologist. Refer to the Anesthesia procedure note for image description and procedure details. us Arron Ansari DO IMG US ORDERABLES Final R esult documented in this encounter Visit Diagnoses Not on filedocumented in this encounter Care Teams Inspector Watch Parts Relationship Specialty Start Date End Date Michelle Garrido APRN PCP - General Nurse Practitioner 01/09/17 01/14/21 documented as of this encounter
--- OUTSIDE RECORDS SUMMARY | 2024-05-29 15:46 | XMS_ITS | Encounter Summary ---
Author Organization [place] [address] Care Team Providers Care Tnt Powder Worker Name Role Phone Michelle Garrido APRN Primary Care Provider Unava ilable Reason for Visit * Reason Comments Leg Pain Encounter Details Date Type Department Care Team (Late st Contact Info) Description 04/13/2020 11:45 AM EDT Office Visit [facility] [address] [place] [address] Michelle Garrido APRN Pain of left calf (Primary Dx); Needs flu shot; Strain of left calf muscle Social History Tobacco Use Types Packs/Day Years [...] have Coronavirus / COVID-19? No / Unsure 04/13/2020 12:38 PM EDT documented as of this encounter Last Filed Vital Signs Vital Sign Reading Time Taken Comments Blood Pressure 122/66 04/13/2020 11:45 AM EDT Pulse 86 04/13/2020 11:45 AM EDT Temperature 36.7 ??C (98.1 ??F) 04/13/2020 11:45 AM E DT Respiratory Rate - - Oxygen Saturation 98% 04/13/2020 11:45 AM EDT Inhaled Oxygen Concentration - - Weight 93.4 kg (206 lb) 04/13/2020 11:45 AM EDT Height 170.2 cm (5' 7 ) 04/13/2020 11:45 AM EDT Body Mass Index 32.26 04/13/2020 11:45 AM EDT documented in this encounter Functional [...] to 30 days. 90 Tab 1 04/13/2020 06/08/2020 documented in this encounter Progress Notes * Michelle Garrido, TRANSIT OPERATOR - 04/13/2020 11:45 AM EDT Images from the original note were not included. Vitals: 04/13/20 1145 BP: 122/66 Pulse: 86 Temp: 98.1 ??F (36.7 ??C) TempSrc: Temporal SpO2: 98% Weight: 206 lb (93.4 kg) Height: 5' 7 (1.702 m) SUBJECTIVE: Chief Complaint Patient presents with ??? Leg Pain HPI: The patient has a complaint of pain described below: ?? What where you doing when the pain started? Just noticed it, no known injury ?? Pain location: bianchi/calf - right ?? How long have you been having this pain? 1 week ?? Pain described as achy ?? Pain rated as moderate but severity increases every day. ?? Does the pain radiate from it's source to anywhere else: No ?? Are you experiencing any associated Numbness, tingling, weakness: No. ?? Treatments prior to today's evaluation have included? Massage, muscle relaxer ?? What makes your pain worse?: walking ?? What makes your pain better?: nothing ?? The inciting event(s) leading to pain was not work related. Is this a new pain, recurrence of a previous similar pain, or exacerbation of a chronic pain or injury? New pain, usually has lucero horses in legs frequently but this seems abnormal to him. Review of Systems Constitutional: Negative for chills, diaphoresis and fever. Respiratory: Negative for shortness of breath. Cardiovascular: Negative for chest pain. Musculoskeletal: Positive for myalgias ( Pain of left calf). Skin: Negative for color change and rash. OBJECTIVE: Physical Exam Cardiovascular: Rate and Rhythm: Normal rate. Pulses: Normal pulses. Pulmonary: Effort: Pulmonary effort is normal. Musculoskeletal: Legs: Neurological: Mental Status: He is alert. Assessment Diagnoses and all orders for this visit: Pain of left calf - D-DIMER; Future Needs flu shot - FLU VACCINE QUADRIVALENT FLUBLOK (PF) 18+ Strain of left calf muscle - cyclobenzaprine (FLEXERIL) 10 mg Oral Tablet; Take 1 Tab by mouth every 8 hours as needed for Muscle spasms for up to 30 days. Dispense: 90 Tab; Refill: 1 heat application, NSAID, stretching exercises and massage recommended. documented in this encounter Plan of Treatment Upcoming Encounters Date Type Department Care Team (Late st Contact Info) Description 06/28/2024 9:40 AM EST Clinical Support [facility] [address] [email or web address] [place] [phone] 11/19/2024 1:40 PM EDT Office Visit [facility] Neurology [facility] [address] [facility] [place] [address] Lyndsay Brewer DO [address] [place] [address] documented as of this encounter Goals Goal Patient Goal Type Associated Problems Recent Progress Patient-Stated? Author Blood Pressure < 140/90 Blood Pressure 134/84(2023 1:16 PM EST) No Yana Choi RMA Eat better, exercise, reach an ideal body weight General No Yana Choi RMA Stay Tobacco Free Lifestyle No Yana Choi RMA documented as of this encounter Results * D-DIMER (04/13/2020 12:45 PM EDT) D-Dimer <230 <=230 ng/mL D-DU 04/13/2020 2:[address] [facility] Comment: This test has been clinically validated by the electronic equipment repairmen and approved by the FDA for exclusion of pulmonary embolism (PE) or deep vein thrombosis (DVT) in patients with a low clinical risk assessment. ?? The cutoff for exclusion of PE and DVT is < 230 ng/mL D-Dimer Units. Increased levels of D-dimer are associated with PE, DVT, disseminated intravascular coagulation, malignancies, inflammation, sepsis, surgery, trauma, , and advanced patient age. Blood VENOUS BLOOD / Unknown Venipuncture / Unknown 04/13/2020 12:45 PM EDT 04/13/2020 12:45 PM EDT us Michelle Garrido TRANSIT OPERATOR HEMATOLOGY ORDERABLES Final Result [facility], [address] , [address] [place] [id number] documented in this encounter Visit Diagnoses Diagnosis Pain of left calf- Primary Needs flu shot Need for prophylactic vaccination and inoculation against influenza Strain of left calf muscle documented in this encounter Orders Immunization/Injection Count Last Ordered Date First Ordered Date FLU VACCINE QUADRIVALENT FLUBLOK (PF) 18+ 1 04/13/2020 documented in this encounter Care Teams Tnt Powder Worker Relationship Specialty Start Date End Date Michelle aGrrido, YOLI PCP - General Nurse Practitioner 01/09/17 01/14/21 documented as of this encounter
--- OUTSIDE RECORDS SUMMARY | 2024-05-29 15:46 | XMS_ITS | Encounter Summary ---
Author Organization [place] [address] Care Team Providers Care Clinical Ob Name Role Phone Michelle Garrido APRN Primary Care Provider Unava ilable Reason for Visit * Reason Comments Medication Refill Encounter Details Date Type Department Care Team (Late st Contact Info) Description 02/03/2020 Refill [facility] [address] [employer] [place] [address] Michelle Garrido APRN Medication Refill [...] of Assessment Author No 07/03/2019 8:15 AM Darlin SnowESTEFANY guthrie documented as of this encounter Mental Status [...] TWICE A DAY 180 Each 1 02/03/2020 08/05/2020 documented in this encounter Plan of Treatment Upcoming Encounters Date Type Department Care Team (Late st Contact Info) Description 06/28/2024 9:40 AM EST Clinical Support [place] [address] [employer] [place] [phone] 11/19/2024 1:40 PM EDT Office Visit [facility] Neurology [facility] [address] [place] [address] Lyndsay Brewer DO [address] [place] [address] documented as of this encounter [...] 1 PUFF BY MOUTH TWICE A DAY 07/23/2019 02/03/2020 documented as of this encounter Care Teams Clinical Ob Relationship Specialty Start Date End Date Michelle Garrido APRN PCP - General Nurse Practitioner 01/09/17 01/14/21 documented as of this encounter
--- OUTSIDE RECORDS SUMMARY | 2024-05-29 15:46 | XMS_ITS | Encounter Summary ---
Author Organization [place] [address] Care Team Providers Care Solar Sales Representative And Assessor Name Role Phone Michelle Garrido APRN Primary Care Provider Unava ilable Reason for Visit * Reason Comments Medication Refill Encounter Details Date Type Department Care Team (Late st Contact Info) Description 04/02/2020 Refill [facility] [address] [place] [address] Michelle Garrido APRN Medication Refill [...] have Coronavirus / COVID-19? No / Unsure 03/31/2020 11:15 AM EDT documented as of this encounter [...] BY MOUTH EVERY DAY 90 Tab 04/02/2020 06/30/2020 documented in this encounter Plan of Treatment Upcoming Encounters Date Type Department Care Team (Late st Contact Info) Description 06/28/2024 9:40 AM EST Clinical Support [place] [address] [employer] [place] [phone] 11/19/2024 1:40 PM EDT Office Visit [facility] Neurology [facility] [address] [place] [address] Lyndsay Brewer DO [address] [place] [address] documented as of [...] TAKE 1 TABLET BY MOUTH EVERY DAY 10/15/2019 04/02/2020 documented as of this encounter Care Teams Solar Sales Representative And Assessor Relationship Specialty Start Date End Date Michelle Garrido APRN PCP - General Nurse Practitioner 01/09/17 01/14/21 documented as of this encounter
--- OUTSIDE RECORDS SUMMARY | 2024-05-29 15:46 | XMS_ITS | Encounter Summary ---
Author Organization [place] [address] Care Team Providers Care Farmworker Brooder Farm Name Role Phone Michelle Garrido APRN Primary Care Provider Unava ilable Reason for Visit * Reason Comments Knee Pain Encounter Details Date Type Department Care Team (Latest Contact Info) Description 02/10/2020 1:00 PM EDT Office Visit [facility] [address] [place] [address] Michelle Garrido APRN Primary osteoarthritis of both [...] Sign Reading Time Taken Comments Blood Pressure 132/86 02/10/2020 1:13 PM EDT Pulse 79 02/10/2020 1:13 PM EDT Temperature 36.9 ??C (98.4 ??F) 02/10/2020 1:13 PM ED T Respiratory Rate - - Oxygen Saturation 95% 02/10/2020 1:13 PM EDT Inhaled Oxygen Concentration - - Weight 94.8 kg (209 lb) 02/10/2020 1:13 PM EDT Height 170.2 cm (5' 7 ) 02/10/2020 1:13 PM EDT Body Mass Index 32.73 02/10/2020 1:13 PM EDT documented in this encounter Functional [...] Progress Notes * Michelle Garrido, YOLI - 02/10/2020 1:00 PM EDT Vitals: 02/10/20 1313 BP: 132/86 Pulse: 79 Temp: 98.4 ??F (36.9 ??C) TempSrc: Temporal SpO2: 95% Weight: 209 lb (94.8 kg) Height: 5' 7 (1.702 m) SUBJECTIVE: Chief Complaint Patient presents with ??? Knee Pain HPI: Pt is here today to get knee injection bilateral. He states that right knee is worse. Pt has seen ortho recently. Not a good candidate for Synvisc injections d/t severity of OA. Doesn'twant to have total knee replacement right now because he needs to keep working. 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 Review of Systems Musculoskeletal: Positive for arthralgias ( bilateral knee pain, R>L) and joint swelling ( right). OBJECTIVE: Physical Exam Cardiovascular: Rate and Rhythm: Normal rate and regular rhythm. Pulses: Normal pulses. Heart sounds: Normal heart sounds. Pulmonary: Effort: Pulmonary effort is normal. Breath sounds: Normal breath sounds. Neurological: Mental Status: He is alert. A steroid injection was performed at bilateral knees using sterile technique with lateral approach with 1% plain Lidocaine and 80 mg of Depo-medrol. This was well tolerated. Assessment Diagnoses and all orders for this visit: Primary osteoarthritis of both knees - methylPREDNISolone acetate (DEPO-Medrol) injection 80 mg - methylPREDNISolone acetate (DEPO-Medrol) injection 80 mg - TX ARTHROCENTESIS ASPIR&/INJ MAJOR JT/BURSA W/O US - TX ARTHROCENTESIS ASPIR&/INJ MAJOR JT/BURSA W/O US documented in this encounter Plan of Treatment Upcoming Encounters Date Type Department Care Team (Late st Contact Info) Description 06/28/2024 9:40 AM EST Clinical Support [facility] [address] [place] [phone] 11/19/2024 1:40 PM EDT Office Visit [facility] [address] [place] [address] Lyndsay Brewer DO [address] [place] [address] Scheduled Orders Name Type Priority Associated Diagnoses Orde r Schedule TX ARTHROCENTESIS ASPIR&/INJ MAJOR JT/BURSA W/O US TX Charge Routine Primary osteoarthritis of both knees Ordered: 02/10/2020 TX ARTHROCENTESIS ASPIR&/INJ MAJOR JT/BURSA W/O US TX Charge Routine Primary osteoarthritis of both knees Ordered: 02/10/2020 documented as of this encounter Goals Goal [...] 80 mg, Intra-articular, ONCE, 1 dose, On Mon02/10/20 at 1415, Dx: 1. Primary osteoarthritis of both kneesIndications:Primary osteoarthritis of both knees Given 02/10/2020 2:07 PM EDT 80 mg Left Knee methylPREDNISolone acetate (DEPO-Medrol) injection 80 mg 80 mg, Intra-articular, ONCE, 1 dose, On Mon02/10/20 at 1415, Dx: 1. Primary osteoarthritis of both kneesIndications:Primary osteoarthritis of both knees Given 02/10/2020 2:06 PM EDT 80 mg Right Knee documented in this encounter Care Teams Farmworker Brooder Farm Relationship Specialty Start Date End Date Michelle Garrido APRN PCP - General Nurse Practitioner 01/09/17 01/14/21 documented as of this encounter
--- OUTSIDE RECORDS SUMMARY | 2024-05-29 15:46 | XMS_ITS | Encounter Summary ---
Author Organization [facility] [place] [address] Care Team Providers Care Banking Teacher Name Role Phone Michelle Garrido APRN Primary Care Provider Unava ilable Encounter Details Date Type Department Care Team (Latest Contact Info) Description 05/05/2020 Travel Social History Tobacco Use Types Packs/Day [...] have Coronavirus / COVID-19? No / Unsure 05/05/2020 1:24 PM EST documented as of this encounter [...] EST Clinical Support [facility] [address] [place] [address] 11/19/2024 1:40 PM EDT Office Visit [facility] Neurology [facility] [address] [place] [phone] Lyndsay Brewer DO [address] [facility] [address] [place] [address] documented as of this encounter [...] on filedocumented in this encounter Care Teams Banking Teacher Relationship Specialty Start Date End Date Michelle Garrido APRN PCP - General Nurse Practitioner 01/09/17 01/14/21 documented as of this encounter
--- OUTSIDE RECORDS SUMMARY | 2024-05-29 15:46 | XMS_ITS | Encounter Summary ---
Author Organization [place] [address] Care Team Providers Care Home Performance Consultant Name Role Phone Michelle Garrido APRN Primary Care Provider Unava ilable Reason for Visit * Reason Comments Medication Refill Encounter Details Date Type Department Care Team (Late st Contact Info) Description 04/01/2020 Refill [facility] [address] [place] [address] Michelle Garrido APRN Medication Refill [...] BY MOUTH EVERY DAY 90 Cap 04/01/2020 documented in this encounter Plan of Treatment Upcoming Encounters Date Type Department Care Team (Late st Contact Info) Description 06/28/2024 9:40 AM EST Clinical Support [facility] [address] [place] [address] 11/19/2024 1:40 PM EDT Office Visit [facility] Neurology [facility] [address] [place] [address] Lyndsay Brewer DO [address] [place] [address] documented as of this encounter [...] TAKE 1 CAPSULE BY MOUTH EVERY DAY 01/06/2020 04/01/2020 documented as of this encounter Care Teams Home Performance Consultant Relationship Specialty Start Date End Date Michelle Garrido APRN PCP - General Nurse Practitioner 01/09/17 01/14/21 documented as of this encounter
--- OUTSIDE RECORDS SUMMARY | 2024-05-29 15:46 | XMS_ITS | Encounter Summary ---
Author Organization [place] [address] Care Team Providers Care Hamper Maker Name Role Phone Michelle Garrido APRN Primary Care Provider Unava ilable Reason for Visit * Reason Onset Date Comments Symptom Call 01/10/2020 rash Encounter Details Date Type Department Care Team (Late st Contact Info) Description 01/10/2020 Telephone [facility] [address] [place] [address] Michelle Garrido APRN Symptom Call (rash ) Social History Tobacco Use Types Packs/Day [...] encounter Miscellaneous Notes * Telephone Encounter - Rocio Brewster CMA - 01/10/2020 1:55 PM EDT appt scheduled * Telephone Encounter - Rosalina Shi - 01/10/2020 11:40 AM EDT Symptoms Call Who is reporting the symptoms: Patient What symptom(s) is the patient experiencing: rash on both feet and forearms How long have symptoms been present: 10 day(s) ago Has the patient been seen for this: No If no, was an appointment/E-Visit offered/suggested? NO, Declined appt Has the patient tried anything to relieve the symptoms and did it help: hyrdrocortisone If pain, what level on scale 1-10 (10 being the greatest): No Pain Desired Outcome: Rx, asking for medication/steroids [facility]acy [facility] Location[facility] , pt declined appt Additional Notes: documented in this encounter Plan of Treatment Upcoming Encounters Date Type Department Care Team (Late st Contact Info) Description 06/28/2024 9:40 AM EST Clinical Support [facility] [address] [place] [phone] 11/19/2024 1:40 PM EDT Office Visit [facility] Neurology [facility] [address] [place] [address] Lyndsay Brewer, [address] [facility] [address] [place] [address] documented as of this encounter [...] on filedocumented in this encounter Care Teams Hamper Maker Relationship Specialty Start Date End Date Michelle Garrido APRN PCP - General Nurse Practitioner 01/09/17 01/14/21 documented as of this encounter
--- OUTSIDE RECORDS SUMMARY | 2024-05-29 15:46 | XMS_ITS | Encounter Summary ---
Author Organization [place] [address] Care Team Providers Care Contribution Solicitor Name Role Phone Michelle Garrido APRN Primary Care Provider Unava ilable Reason for Visit * Reason Comments Medication Refill Encounter Details Date Type Department Care Team (Late st Contact Info) Description 01/06/2020 Refill [facility] [address] [place] [address] Michelle Garrido APRN Medication Refill [...] 8:15 AM EST Maddy White ESTEFANY * Does this person have serious difficulty walking or climbing stairs? Answer Date of Assessment Author No 07/03/2019 8:15 AM EST Maddy White ESTEFANY * Does this person have difficulty dressing or bathing? Answer Date of Assessment Author No 07/03/2019 8:15 AM EST Maddy WhiteESTEFANY * Because of a physical, mental or [...] CAPSULE BY MOUTH EVERY DAY 90 Cap 01/06/2020 0 VIBERZI 100 mg Oral TabletIndications: Irritable bowel syndrome with diarrhea TAKE 1 TABLET BY MOUTH TWICE A DAY 54 Tab 1 01/06/2020 1 documented in this encounter Miscellaneous Notes * Telephone Encounter - Farzana Garrido MA - 01/06/2020 11:12 AM EDT ALFA: 01/06/2020 as expected LRF 12/09 per alfa GUS 08/26/19 had appt on Tuesday 01/02 no showed. documented in this encounter Plan of Treatment Upcoming Encounters Date Type Department Care Team (Late st Contact Info) Description 06/28/2024 9:40 AM EST Clinical Support [facility] [address] [place] [address] 11/19/2024 1:40 PM EDT Office Visit [facility] Neurology [facility] [address] [place] [phone] Lyndsay Brewer, DO [address] [place] [address] documented as of this encounter Goals Goal [...] bowel syndrome with diarrhea Irritable bowel syndrome documented in this encounter Discontinued Medications Medication Sig Discontinue Reason Start Date End Da te VIBERZI 100 mg Oral TabletIndications:Irrita ble bowel syndrome with diarrhea TAKE 1 TABLET BY MOUTH TWICE A DAY 11/05/2019 01/06/2020 hydroCHLOROthiazide (MICROZIDE) 12.5 mg Oral Capsule TAKE 1 CAPSULE BY MOUTH EVERY DAY 10/14/2019 01/06/2020 documented as of this encounter Care Teams Contribution Solicitor Relationship Specialty Start Date End Date Michelle Garrido APRN PCP - General Nurse Practitioner 01/09/17 01/14/21 documented as of this encounter
--- OUTSIDE RECORDS SUMMARY | 2024-05-29 15:46 | XMS_ITS | Encounter Summary ---
Author Organization [place] [address] Care Team Providers Care Core Cutter And Reamer Name Role Phone Michelle Garrido APRN Primary Care Provider Willie aguila Encounter Details Date Type Department Care Team (Late st Contact Info) Description 12/04/2019 Orders Only [facility] [place] [address] [place] [address] Michelle Garrido APRN BPH without urinary obstruction (Primary Dx) Social History Tobacco Use Types [...] End Date tamsulosin (FLOMAX) 0.4 mg Oral CapsuleIndications: BPH without urinary obstruction Take 1 Cap by mouth nightly. 30 Cap 1 12/04/2019 12/26/2019 documented in this encounter Plan of Treatment Upcoming Encounters Date Type Department Care Team (Late st Contact Info) Description 06/28/2024 9:40 AM EST Clinical Support [facility] [address] [place] [phone] 11/19/2024 1:40 PM EDT Office Visit [facility] [address] [place] [address] Lyndsay Brewer DO [address] [place] [address] documented as of this [...] encounter Visit Diagnoses Diagnosis BPH without urinary obstruction- Primary Hypertrophy of prostate without urinary obstruction and other lower urinary tract symptoms (LUTS) documented in this encounter Care Teams Core Cutter And Reamer Relationship Specialty Start Date End Date Michelle Garrido APRN PCP - General Nurse Practitioner 01/09/17 01/14/21 documented as of this encounter
--- OUTSIDE RECORDS SUMMARY | 2024-05-29 15:46 | XMS_ITS | Encounter Summary ---
Author Organization [place] [address] Care Team Providers Care Sales Assoc Name Role Phone Michelle Garrido APRN Primary Care Provider Unava ilable Reason for Visit * Reason Comments Medication Refill Encounter Details Date Type Department Care Team (Late st Contact Info) Description 02/29/2020 Refill [facility] [place] [address] [place] [address] Michelle Garrido APRN Medication Refill [...] Assessment Author No 07/03/2019 8:15 AM EST aMddy White RMA * Does this person have serious difficulty walking or climbing stairs? Answer Date of Assessment Author No 07/03/2019 8:15 AM EST WhiteDarlinMaddyESTEFANY guthrie * Does this person have difficulty dressing or bathing? Answer Date of Assessment Author No 07/03/2019 8:15 AM Darlin SnowESTEFANY guthrie * Because of a physical, mental or [...] NEEDED FOR WHEEZING. 54 Inhaler 2 03/03/2020 08/03/2020 documented in this encounter Miscellaneous Notes * Telephone Encounter - Adina Ferro - 03/03/2020 12:14 PM EDT Checking on the status of his medication request. documented in this encounter Plan of Treatment Upcoming Encounters Date Type Department Care Team (Late st Contact Info) Description 06/28/2024 9:40 AM EST Clinical Support [facility] [address] [place] [address] 11/19/2024 1:40 PM EDT Office Visit [facility] Neurology [facility] [address] [place] [address] Lyndsay Brewer DO [address] [place] [address] documented as of this encounter Goals Goal [...] PUFFS EVERY 4 HOURS NEEDED FOR WHEEZING. 07/19/2019 03/03/2020 documented as of this encounter Care Teams Sales Assoc Relationship Specialty Start Date End Date Michelle Garrido APRN PCP - General Nurse Practitioner 01/09/17 01/14/21 documented as of this encounter
--- OUTSIDE RECORDS SUMMARY | 2024-05-29 15:46 | XMS_ITS | Encounter Summary ---
Author Organization [place] [address] Care Team Providers Care Parking Lot Signaler Name Role Phone Michelle Garrido APRN Primary Care Provider Unava ilable Reason for Visit * Reason Onset Date Comments Symptom Call 03/31/2020 yeast inf Encounter Details Date Type Department Care Team (Late st Contact Info) Description 03/31/2020 Telephone [facility] [employer] [address] [place] [address] Michelle Garrido APRN Symptom Call (yeast inf ) Social History Tobacco Use Types Packs/Day [...] Assessment Author No 07/03/2019 8:15 AM AIMEE WhiteDarlinMaddyESTEFANY guthrie * Is the person blind or does he/she have serious difficulty seeing even when wearing glasses? Answer Date of Assessment Author No 07/03/2019 8:15 AM AIMEE WhiteDarlinMaddyESTEFANY guthrie * Does this person have serious difficulty walking or climbing stairs? Answer Date of Assessment Author No 07/03/2019 8:15 AM AIMEE White ESTEFANY Castañeda * Does this person have difficulty dressing or bathing? Answer Date of Assessment Author No 07/03/2019 8:15 AM AIMEE WhiteDarlinMaddyESTEFANY guthrie * Because of a physical, mental [...] Date Author No 07/03/2019 8:15 AM AIMEE White MaddyESTEFANY guthrie documented in this encounter Miscellaneous Notes * Telephone Encounter - Farzana Garrido MA - 03/31/2020 2:59 PM EDT Pt informed that appt is needed. He will have to call back. He is using otc jock itch cream and it is not helping. * Telephone Encounter - Alycia Galvin - 03/31/2020 11:13 AM EDT Images from the original note were not included. Symptoms Call Who is reporting the symptoms: Patient What symptom(s) is the patient experiencing: pt thinks he has a yeast infection , itchy Pt said girlfriend had one and he thinks he got it How long have symptoms been present: 2 day(s) ago Has the patient been seen for this: Yes Has the patient tried anything to relieve the symptoms and did it help: No If pain, what level on scale 1-10 (10 being the greatest): No Pain Desired Outcome: Rx, something called in Pharmacy & [id number] [place] [address] [address] [facility] [phone] Additional Notes: Travel Screening Question Response In the last month, have you been in contact with someone who was confirmed or suspected to have Coronavirus / COVID-19? No / Unsure Have you had a COVID-19 viral test in the last 14 days? No Do you have any of the following new or worsening symptoms? None of these Have you traveled internationally in the last month? No Travel History Travel since 03/01/20 No documented travel since 03/01/20 documented in this encounter Plan of Treatment Upcoming Encounters Date Type Department Care Team (Late st Contact Info) Description 06/28/2024 9:40 AM EST Clinical Support [facility] [place] [address] [place] [address] 11/19/2024 1:40 PM EDT Office Visit [facility] Neurology [facility] [address] [place] [address] Lyndsay Brewer DO [address] [facility] [address] [place] [address] documented as of this encounter [...] on filedocumented in this encounter Care Teams Parking Lot Signaler Relationship Specialty Start Date End Date Michelle Garrido APRN PCP - General Nurse Practitioner 01/09/17 01/14/21 documented as of this encounter
--- OUTSIDE RECORDS SUMMARY | 2024-05-29 15:46 | XMS_ITS | Encounter Summary ---
Author Organization [place] [address] Care Team Providers Care Roving Marker Name Role Phone Michelle Garrido APRN Primary Care Provider Unava ilable Reason for Visit * Reason Comments Medication Refill Encounter Details Date Type Department Care Team (Late st Contact Info) Description 12/26/2019 Refill [facility] [place] [address] [place] [address] Michelle Garrido APRN Medication Refill [...] CAPSULE BY MOUTH EVERY DAY AT NIGHT 30 Cap 1 12/26/2019 0 documented in this encounter Plan of Treatment Upcoming Encounters Date Type Department Care Team (Late st Contact Info) Description 06/28/2024 9:40 AM EST Clinical Support [facility] [address] [place] [address] 11/19/2024 1:40 PM EDT Office Visit [facility] [address] [place] [address] Lyndsay Brewer DO [address] [place] [address] documented as of this encounter Goals [...] Oral CapsuleIndications:BPH without urinary obstruction Take 1 Cap by mouth nightly. 12/04/2019 12/26/2019 documented as of this encounter Care Teams Roving Marker Relationship Specialty Start Date End Date Michelle Garrido APRN PCP - General Nurse Practitioner 01/09/17 01/14/21 documented as of this encounter
--- OUTSIDE RECORDS SUMMARY | 2024-05-29 15:46 | XMS_ITS | Encounter Summary ---
Author [place] [address] Care Team Providers Care Director Medical Name Role Phone Michelle Garrido APRN Primary [...] biceps tendon, right, initial encounter [S46.111A] Procedures DC REPAIR COMPL ROTATOR CUFF AVULSN,CHR DC SHOULDER SCOPE BONE SHAVING DC SHLDR ARTHROSCOP,PART DEBRIDE DC SHLDR ARTHROSCOP,EXTEN DEBRIDE RIGHT SHOULDER ARTHROSCOPIC ROTATOR CUFF REPAIR DECOMPRESSION ACROMIOPLASTY, ACROMIOCLAVICULAR JOINT EXCISION WITH BICEP TENODESIS Referral ID Status Reason Start Date Expiration Date Visits Re quested Visits Authorized [id number] 1 1 Encounter Details Date Type Department Care Team (Late st Contact Info) Description 11/29/2019 8:30 AM EDT - 11/29/2019 9:30 AM EDT Surgery [facility] [address] [facility] [address] [place] [id number] Kenny Ljoa MD [address] [facility] [address] [place] [address] SHOULDER ARTHROSCOPY ROTATOR CUFF REPAIR/SUBACROMIAL DECOMPRESSION/NENO /BICEP TENODESIS Surgery Details Date/Time Status Location OR Service Patient Class Case Class Case Type Trauma Case? 11/29/2019 8:30 AM Posted [facility] [place] [id number] Orthopedics Same Day Surgery Elective Panel 1 Procedure LRB Anes Op Region Wound Class Comments SHOULDER ARTHROSCOPY ROTATOR CUFF REPAIR/SUBACROMIAL DECOMPRESSION/MUMFO RD/BICEP TENODESIS Right General w/Block Clean RIGHT SHOULDER ARTHROSCOPIC ROTATOR CUFF REPAIR DECOMPRESSION ACROMIOPLASTY, ACROMIOCLAVICULAR JOINT EXCISION Surgeon Surgeon Role Service Panel Kenny Loja MD Primary Orthopedics 1 Special Needs INDWELLING NERVE BLOCK, GENERAL SCALENE documented in this encounter Social History Tobacco [...] Sign Reading Time Taken Comments Blood Pressure 138/93 11/29/2019 7:37 AM EDT Pulse 75 11/29/2019 7:37 AM EDT Temperature 37.3 ??C (99.2 ??F) 11/29/2019 7:35 AM ED T Respiratory Rate 15 11/29/2019 7:37 AM EDT Oxygen Saturation 97% 11/29/2019 7:37 AM EDT Inhaled Oxygen Concentration - - Weight 93.9 kg (207 lb) 11/29/2019 7:37 AM EDT Height 170.2 cm (5' 7 ) 11/29/2019 7:37 AM EDT Body Mass Index 32.42 11/29/2019 7:37 AM EDT documented in this encounter Functional Status * Is the person deaf or does he/she have serious difficulty hearing? Answer Date of Assessment Author No 07/03/2019 8:15 AM AIMEE White Maddy, ESTEFANY * Is the person blind or does he/she have serious difficulty seeing even when wearing glasses? Answer Date of Assessment Author No 07/03/2019 8:15 AM AIMEE Darlin Whiteiley, RMJane * Does this person have serious difficulty walking or climbing stairs? Answer Date of Assessment Author No 07/03/2019 8:15 AM AIMEE WhiteDarlinMaddy, RMA * Does this person have difficulty dressing or bathing? Answer Date of Assessment Author No 07/03/2019 8:15 AM AIMEE Maddy White, RMA * Because of a [...] Entry Date Author No 07/03/2019 8:15 AM Darlin Snowiley ESTEFANY documented in this encounter Discharge Instructions * Discharge Instructions* Arron Ansari, - 11/29/2019 8:01 AM EDT [facility] Discharge Instructions - Following Anesthesia We [...] if you cannot correctly feel the temperature. Some nerve blocks with the medication Exparel are designed to last up to 3 days. ?? If you have questions or concerns regarding your anesthesia experience, please call our office at . Get Well Soon! [facility] documented in this encounter Medications at Time of Discharge Nebulizer Accessories (ALL FLOW 4000 KIT) [facility] equivalent 1 Each 0 06/27/2012 ADVAIR DISKUS 500-50 mcg/dose Inhl Disk with DeviceIndications :Encounter for medication refill TAKE 1 PUFF BY MOUTH TWICE A DAY 120 Each 2 07/23/2019 0 albuterol (VENTOLIN HFA) 90 mcg/actuation Inhl HFA Aerosol InhalerIndication s:Encounter for medication refill INHALE 1 TO 2 PUFFS EVERY 4 HOURS NEEDED FOR WHEEZING. 54 Inhaler 2 07/19/2019 0 celecoxib (CELEBREX) 200 mg Oral Capsule TAKE 1 CAPSULE BY MOUTH TWICE A DAY 180 Cap 1 10/31/2019 0 hydroCHLOROthiazi de (MICROZIDE) 12.5 mg Oral Capsule TAKE 1 CAPSULE BY MOUTH EVERY DAY 90 Cap 10/14/2019 0 losartan (COZAAR) 50 mg Oral Tablet TAKE 1 TABLET BY MOUTH EVERY DAY 90 Tab 1 10/15/2019 0 VIBERZI 100 mg Oral TabletIndications :Irritable bowel syndrome with diarrhea TAKE 1 TABLET BY MOUTH TWICE A DAY 54 Tab 1 11/05/2019 0 documented as of this encounter Discharge Disposition Disposition Code Departure Means Destination Home or Self [facility] documented in this encounter H&P Notes * Rhiannon Mccracken APRN - 11/29/2019 7:47 AM EDT Chief complaint: Tear of right rotator cuff, unspecified tear extent, unspecified whether traumatic[M75.101] Rupture long head biceps tendon, right, initial encounter [S46.111A] HPI: This is a 54 y.o. year old male patient who presents today for surgical treatment of the above problem. The patient feels well and has no current complaints or concerns. No history of adverse reaction to anesthesia in the past. The patient has limited past medical history as listed below that is sta ble on current medications. History & Physical Past Medical History: Diagnosis Date ??? Arthritis [...] Surgeon: Augie Ramires MD; Location: [facility] MAIN OR; Service: Orthopedics ??? KNEE SURGERY LEFT ACL RECONSTRUCTION ??? KNEE SURGERY LEFT ARTHROSCOPIES IRRAGATION X 7 FOR INFECTION ??? KNEE SURGERY RIGHT ARTHROSCOPIC MENICUS REPAIR ??? TOTAL HIP ARTHROPLASTY Left 2009 No current facility-administered medications on file prior to encounter. Current Outpatient Medications on File Prior to Encounter Medication Sig Dispense Refill ??? ADVAIR DISKUS 500-50 mcg/dose Inhl Disk with Device TAKE 1 PUFF BY MOUTH TWICE A DAY 120 Each 2 ??? albuterol (VENTOLIN HFA) 90 mcg/actuation Inhl HFA Aerosol Inhaler INHALE 1 TO 2 PUFFS EVERY 4 HOURS NEEDED FOR WHEEZING. 54 Inhaler 2 ??? hydroCHLOROthiazide (MICROZIDE) 12.5 mg Oral Capsule TAKE 1 CAPSULE BY MOUTH EVERY DAY 90 Cap 0 ??? losartan (COZAAR) 50 mg Oral Tablet TAKE 1 TABLET BY MOUTH EVERY DAY 90 Tab 1 ??? meclizine (ANTIVERT) 25 mg Oral Tablet Take 1 Tab by mouth every 6 hours. 60 Tab 0 ??? Nebulizer Accessories (ALL FLOW 4000 KIT) Misc Formulary equivalent 1 Each 0 ??? Nebulizers (SANG BABY NEBULIZER) Misc Formulary equivalent 1 Each 0 ??? tadalafil (CIALIS) 5 mg Oral Tablet TAKE 1 TAB BY MOUTH NEEDED. FOR ERECTILE DYSFUNCTION 90 Tab 1 ??? TURMERIC ORAL Take by mouth daily. ??? Garlic Oral Tablet Take by mouth daily. Allergies Allergen Reactions ??? Abilify [Aripiprazole] Other (See Comments) convulsions ??? Unable To Assess Patient does not take any narcotic medications Social History Socioeconomic History ??? Marital status: Legally Spouse name: Not on file ??? Number of children: Not on file ??? Years of education: Not on file ??? Highest education level: Not on file Occupational History ??? Not on file Social Needs ??? Financial resource strain: Not [...] 2013 ??? Sexual activity: Not on file Lifestyle ??? Physical activity Days per week: Not on file Minutes per session: Not on file ??? Stress: Not on file Relationships ??? Social connections Talks on phone: Not on file Gets together: Not on file Attends mosque service: Not on file Active member of club or organization: Not on file Attends meetings of clubs or organizations: Not on file Relationship status: Not on file ??? Intimate partner violence Fear of current or ex partner: Not on file Emotionally abused: Not on file Physically abused: Not on file Forced sexual activity: Not on file Other Topics Concern ??? Not on file Social History Narrative ??? Not on file Family History Problem Relation Age of Onset ??? Diabetes Mother ??? Heart Disease Mother ??? High Blood Pressure Mother ??? High Cholesterol Mother ??? Cancer Father 40 stomach ??? Diabetes Sister ??? No Known Problems Brother ??? Diabetes Maternal Grandmother Review of Systems REVIEW OF SYSTEMS: CONSTITUTIONAL: Denies: fever, chills ENT: Denies: sore throat, nasal congestion, nasal discharge ABDOMEN: Denies pain, nausea, vomiting CARDIOVASCULAR: Denies: chest pain, dyspnea on exertion RESPIRATORY: Denies: cough, shortness of breath, MOMIN Pt states upper airway wheezing this am resolved with albuterol NEURO: Denies: dizzy, headache, focal weakness SKIN: Denies rash, lesions and skin infections As above and all other relevant systems are negative. Vitals: 11/29/19 0737 BP: (!) 138/93 Pulse: 75 Resp: 15 Temp: SpO2: 97% Temp 99.2 Physical Exam General: No acute distress. Neuro: alert. oriented Eyes: pupils equal. Extra-ocular muscles intact Mouth: Oral mucosa moist. Nose: midline. Good air movement Neck: supple, no lymphadenopathy Abd: Soft, Non tender Chest: symmetric excursion with respiration. Respirations unlabored and regular. No adventitious sounds heard Heart: Regular rate and rhythm, and intact distal pulses. No abnormal heart sounds heard Abdomen: soft, non-tender, non-distended Extremities: 2+ pulses lower extremities bilaterally, no edema Relevant Labs and Imaging reviewed. Lab Results Component Value Date WBC 12.6 (H) 09/04/2019 HGB 17.2 (H) 09/04/2019 HCT 50.8 09/04/2019 PLT 210 09/04/2019 CHOLESTEROL 209 (H) 04/15/2019 TRIG 221 (H) 04/15/2019 HDL 50 04/15/2019 LDLCALC 115 (H) 04/15/2019 ALT 26 08/06/2019 AST 31 08/06/2019 NA 139 11/25/2019 K 4.4 11/25/2019 CL 101 11/25/2019 CREATININE 1.09 11/25/2019 BUN 16 11/25/2019 CO2 27 11/25/2019 TSH 2.140 10/14/2015 INR 0.91 07/17/2017 GLU 96 11/25/2019 Assessment: Tear of right rotator cuff, unspecified tear extent, unspecified whether traumatic [M75.101] Rupture long head biceps tendon, right, initial encounter [S46.111A] Plan: Procedure(s): RIGHT SHOULDER ARTHROSCOPIC ROTATOR CUFF REPAIR DECOMPRESSION ACROMIOPLASTY, ACROMIOCLAVICULAR JOINT EXCISION WITH BICEP TENODESIS per Kenny Loja MD Joan O Bovard, APRN 7:47 AM documented in this encounter Procedure Notes * Kenny Loja MD - 11/29/2019 10:21 AM EDT DATE OF OPERATION: 11/29/2019 PREOPERATIVE DIAGNOSES: 1. Rotator cuff tear, supraspinatus tendon, right shoulder. 2. Disruption of long head of the biceps, right shoulder. 3. Acromioclavicular arthrosis with secondary subclavicular impingement, chronic, right shoulder. ANCILLARY DIAGNOSIS: Hypertension. POSTOPERATIVE DIAGNOSES: 1. Acute rotator cuff tear, supraspinatus, right shoulder. 2. Disruption of long head biceps, right upper extremity. 3. Chronic acromioclavicular arthrosis, right upper extremity. PROCEDURES: 1. Repair of rotator cuff with subacromial decompression and acromioplasty of right shoulder, CPT 92463. 2. Type 2 SLAP repair, glenohumeral joint, right shoulder, separate, arthroscopic, CPT 82107-31. 3. Distal clavicle resection with removal of acromioclavicular joint, right upper extremity, separate, CPT 00455-52. SURGEON: Kenny Loja MD. UPSETTER: Vitaliy Weber PA-C. NOTE: assistant director of residence life was utilized and essential to the procedure with both labral and rotator cuff tear for positioning extremity, retraction, assisting with instrumentation and holding position of extremity so the surgeon had two hands free for placing implants and dissection. assistant director of residence life was also utilized for incisional closure. CPT 50423. HISTORY: Mr. Whitlock is a 54-year-old gentleman who approximately 6 weeks ago was lifting a swingset out of his truck and felt an acute pop involving his shoulder. At that time, he disrupted his long head of the biceps and tore the supraspinatus rotator cuff tear. He is an extremely active belia. He has opted to proceed with surgical repair. The risks and benefits of that have been discussed. Jeanmarie understands here that he may not be completely pain free; but with that in mind, surgery was scheduled for him. PROCEDURE DETAILS: The patient was brought to the operating theater and following smooth induction of general anesthesia, he was prepped and draped with the right shoulder prepped and draped free. Notourniquet was used for any portion of the procedure. Initial approach was a posterior portal between the infraspinatus and teres minor to allow placement of a 4.5 mm 30-degree arthroscope. Moving into the glenohumeral joint, the patient had disruptive long head of the biceps. It was a large stump of the biceps anchor still present. We approached it from the anterior aspect and debrided the stumpof the biceps tendon. The superior and anterior labrum had been disrupted in addition, and we went ahead and repaired that back with 1.4 mm suture anchors. Superiorly, there was a split tear of the rotator cuff supraspinatus tendon here. We then moved into the subacromial space. The patient did have a significant type 3 acromion. This was decompressed with a decompression of the acromion from anterior to posterior and lateral to medial margin over to the distal clavicle. This transformed this into the type 1 configuration. Once this was completed, we then moved over to the distal clavicle here and resected the distal clavicle 8 mm from its lateral margin with care taken to protect clavicular stability. Standard closure and dressing applied. Estimated blood loss was 5 mL. No tourniquet utilized, The patient was taken to recovery room in stable condition with spontaneous respirations for same-day discharge. Reviewed in full by harinder/ALLA, 11/30/2019 Kenny Loja M.D. By: Skye Job ID: [id number] Doc ID: [id number] * Kenny Loja MD - 11/29/2019 10:13 AM EDT [facility] OPERATIVE/PROCEDURE NOTE Clementejames Zuhair R November 29, 2019 Body mass index is 32.42 kg/m??. PRE-OP DIAGNOSIS: Tear of right rotator cuff, unspecified tear extent, unspecified whether traumatic [M75.101] Rupture long head biceps tendon, right, initial encounter [S46.111A] POST-OP DIAGNOSIS: Tear of right rotator cuff, unspecified tear extent, unspecified whether traumatic [M75.101]Rupture long head biceps tendon, right, initial encounter [S46.111A] PROCEDURE(S): Procedure(s): RIGHT SHOULDER ARTHROSCOPIC ROTATOR CUFF REPAIR DECOMPRESSION ACROMIOPLASTY, ACROMIOCLAVICULAR JOINT EXCISION TYPE II LABRAL REPAIR SURGEON(S): Surgeon(s) and Role: * Kenny Loja MD - Primary UPSETTER(S): Gus DE LEON ANESTHESIA: General w/Block SPECIMENS: * No specimens in log * ESTIMATED BLOOD LOSS (mls): 5ml DISPOSITION/POST PROC COURSE: PACU Kenny Loja MD Date: 11/29/2019 documented in this encounter Nursing Notes * Love Bishop RN - 11/25/2019 11:40 AM EDT Images from the original note were not included. PREPARING FOR YOUR SURGERY Date of Surgery 11/29/2019 Medications ??? Take the following pills with a small sip of water on the morning of surgery: ADVAIR BRING ALBUTERAL ??? Aspirin, coumadin, blood thinners, ibuprofen, Plavix, [...] ??? Review instructions provided by your surgeon. Polisher And Sander ??? On the day of surgery, it is important to have a Polisher And Sander, someone who is 18 years or older, to accompany you and remain in the CAR for the duration of your surgery. This [...] or near the operative extremity. ??? Nail puerto rican must be removed from operative extremity. Personal [...] a Living Will and Durable Power of Caving Guide for Healthcare, please bring a copy. ??? [...] an excellent experience while you are here. [facility] at [phone] - [address] [facility], [place], [facility] documented in this encounter Plan of Treatment Upcoming Encounters Date Type Department Care Team (Late st Contact Info) Description 06/28/2024 9:40 AM EST Clinical Support ANTOLIN Yom[address] [place] [id number] 11/19/2024 1:40 PM EDT Office Visit SEP Neurology [facility] [address] [place] [address] Lyndsay [place] DO [address] [facility] [address] [place] [address] documented as of this encounter [...] Name Priority Date/Time Associated Diagnosis Comments SCANNED RHYTHM STRIPS 12/02/2019 4:21 PM EDT SHOULDER ARTHROSCOPY ROTATOR CUFF REPAIR/SUBACROMIAL DECOMPRESSION/MUMFO RD/BICEP TENODESIS 11/29/2019 8:46 AM EDT Tear of right rotator cuff, unspecified tear extent, unspecified whether traumatic Rupture long head biceps tendon, right, initial encounter Special Needs INDWELLING NERVE BLOCK, GENERAL SCALENE ANES GUIDANCE FOR NERVE BLOCK STAT 11/29/2019 8:03 AM EDT documented in this encounter Results * SCANNED RHYTHM STRIPS (12/02/2019 4:21 PM EDT) Anatomical Region Laterality Modality Other 12/02/2019 4:21 PM EDT us Unknown Unknown IMG ECG ORDERABLES Final Result * US ANES GUIDANCE FOR NERVE BLOCK (11/29/2019 8:03 AM EDT) Narrative Genericuser, Audit - 11/29/2019 8:03 AM EDT Ultrasound guided nerve block performed by Anesthesiologist The study image(s) are for reference only and will not be interpreted by a Radiologist. Refer to the Anesthesia procedure note for image description and procedure details. us Arron Ansari DO IMG US ORDERABLES Final R esult documented in this encounter Visit Diagnoses Diagnosis Tear of right rotator cuff, unspecified tear extent, unspecified whether traumatic Rupture long head biceps tendon, right, initial encounter documented in this encounter Administered Medications Inactive Administered Medications - up to 1 most recent administrations Medication Order MAR Action Action Date Dose Rate Site acetaminophen (TYLENOL) tablet 1,000 mg 1,000 mg, Oral, PREPROCEDURE, 1 dose, Starting on Maritza 11/28/19 at 0931, Until 11/29/19 at 0751, Coanalgesic, Do not give if patient received acetaminophen within the last 6 hours Maximum adult dose of acetaminophen is 4000 mg from all sources in 24 hours. , Pre-op (Holding/SDS Meds) Given 11/29/2019 7:51 AM EDT 1,000 mg EPINEPHrine 3 mL (3 mg) in NS 3000 mL ONCE PRN, 1 dose, Starting on Mon11/29/19 at 1030, Until Mon11/29/19 at 1031, Intra-op Given 11/29/2019 10:31 AM EDT 7,000 mL Right Shoulder lactated ringers infusion Intravenous, at 50 mL/hr, CONTINUOUS, Starting on Maritza 11/28/19 at 0945, Until Mon11/29/19 at 1544, To be given in SDS/Pre-op Holding Area, Pre-op (Holding/SDS Meds) New Bag 11/29/2019 8:07 AM EDT 50 mL/hr ondansetron (ZOFRAN) injection 4 mg 4 mg, Intravenous, PRN, 1 dose, Starting on Mon11/29/19 at 1020, Until Mon11/29/19 at 1544, Nausea, PACU ondansetron (ZOFRAN-ODT) disintegrating tablet 8 mg 8 mg, Oral, PRN, 1 dose, Starting on Mon11/29/19 at 1020, Until Mon11/29/19 at 1544, Nausea, Dissolve in mouth, PACU promethazine (PHENERGAN) 12.5 mg in sodium chloride 10 mL injection 12.5 mg, Intravenous, PRN, 2 doses, Starting on Mon11/29/19 at 1020, Until Mon11/29/19 at 1544, Nausea, For persistent nausea unrelieved by other antiemetics. Begin with lowest dose unless otherwise directed. Give remainder of dose if nausea unrelieved in 20 minutes. Not to exceed 25 mg in one hour unless otherwise ordered by Anesthesia Coordinator. VESICANT , PACU promethazine (PHENERGAN) 6.25 mg in sodium chloride 10 mL injection 6.25 mg, Intravenous, PRN, 2 doses, Starting on Mon11/29/19 at 1020, Until Mon11/29/19 at 1544, Nausea, For persistent nausea unrelieved by other antiemetics. Begin with lowest dose unless otherwise directed. Give remainder of dose if nausea unrelieved in 20 minutes. Not to exceed 25 mg in one hour unless otherwise ordered by Anesthesia Coordinator. VESICANT , PACU ropivacaine 2 mg/mL (0.2 %) 500 mL - InfuBLOCK single site pain pump Perineural, CONTINUOUS, Starting on Mon11/29/19 at 0915, Until Mon11/29/19 at 1544, InfuBLOCK Single Catheter Pain Pump. Discontinue when reservoir empty., Type of Block: Interscalene, Rate (mL/hr): 6, May increase rate by 2 mL/hr every hour up to (mL/hr): Do Not Increase Rate, Bolus Mode? Yes, Bolus Dose (mL): 2, Bolus Lockout Interval (minutes): 30 New Bag 11/29/2019 10:44 AM EDT 6 mL/hr documented in this encounter Discontinued Medications Medication Sig Discontinue Reason Start Date End Da te albuterol (PROVENTIL) 5 mg/mL Inhl Solution for NebulizationIndication s:Moderate persistent asthma without complication Take 5 mg/hr by nebulization continuous. DELETE-Duplicate 03/30/2016 11/01/2019 predniSONE (DELTASONE) 10 mg Oral TabletIndications:Sandra l URI with cough,Moderate persistent asthma with exacerbation Take 4 tabs once daily for 2 days, then 3 tabs daily x2 days, then 2 tabs daily x2 days and then 1 tab daily x2 days. Removed During Admission Medication Review 08/26/2019 11/25/2019 documented as of this encounter Active and Recently Administered Medications Times are shown in EDT. Scheduled Medication Order 11/27/2019 11/28/2019 11/29/2019 acetaminophen (OFIRMEV) infusion 1,000 mg 1,000 mg, Intravenous, ONCE, 1 dose, On Mon11/29/19 at 1030, Administer over 15 Minutes, Do not give if patient received acetaminophen within the last 6 hours Maximum adult dose of acetaminophen is 4000 mg from all sources in 24 hours. , PACU 1030 (Due) ceFAZolin (ANCEF) IVPB 2 g (COMPLETED) 2 g, Intravenous, ONCE PREPROCEDURE, 1 dose, On Mon11/29/19 at 0730, Administer over 30 Minutes 0846 (Given - Provid er: Azul Rincon CRNA) Continuous Medication Order 11/27/2019 11/28/2019 11/29/2019 lactated ringers infusion Intravenous, at 50 mL/hr, CONTINUOUS, Starting on Maritza 11/28/19 at 0945, Until Mon11/29/19 at 1544, To be given in SDS/Pre-op Holding Area, Pre-op (Holding/SDS Meds) 0807 (New Bag - Prov ider: Sarah Leblanc RN)0847 (Anesthesia Volume Adjustment - Provider: Azul Rincon CRNA)0950 (Anesthesia Volume Adjustment - Provider: Azul Rincon CRNA) ropivacaine 2 mg/mL (0.2 %) 500 mL - InfuBLOCK single site pain pump Perineural, CONTINUOUS, Starting on Mon11/29/19 at 0915, Until Mon11/29/19 at 1544, InfuBLOCK Single Catheter Pain Pump. Discontinue when reservoir empty., Type of Block: Interscalene, Rate (mL/hr): 6, May increase rate by 2 mL/hr every hour up to (mL/hr): Do Not Increase Rate, Bolus Mode? Yes, Bolus Dose (mL): 2, Bolus Lockout Interval (minutes): 30 0915 (Due)1044 (New Bag - Provider: Lela Quiñonez RN) PRN Medication Order 11/27/2019 11/28/2019 11/29/2019 acetaminophen (TYLENOL) tablet 1,000 mg (COMPLETED) 1,000 mg, Oral, PREPROCEDURE, 1 dose, Starting on [place]itza 11/28/19 at 0931, Until Mon11/29/19 at 0751, Coanalgesic, Do not give if patient received acetaminophen within the last 6 hours Maximum adult dose of acetaminophen is 4000 mg from all sources in 24 hours. , Pre-op (Holding/SDS Meds) 0751 (Given - Provid er: Sarah Leblanc RN) dimenhyDRINATE (DRAMAMINE) injection 12.5-25 mg 12.5-25 mg, Intravenous, PRN, 2 doses, Starting on 11/29/19 at 1020, Until Mon11/29/19 at 1544, Nausea, For nausea unrelieved by ondansetron or pre-op granisetron. Begin with lowest dose unless otherwise directed. Give remainder of dose if nausea unrelieved in 20 minutes., PACU EPINEPHrine 3 mL (3 mg) in NS 3000 mL (COMPLETED) ONCE PRN, 1 dose, Starting on Mon11/29/19 at 1030, Until Mon11/29/19 at 1031, Intra-op 1030 (Canceled Entry - Provider: Kenny Loja MD)1031 (Given - Provider: Kenny Loja MD) fentaNYL (SUBLIMAZE) injection 25 mcg 25 mcg, Intravenous, EVERY 5 MIN PRN, 4 doses, Starting on Mon11/29/19 at 1020, Until Mon11/29/19 at 1544, Pain, may give 50 mcg at a time for severe pain do not exceed 100mcg, For initial pain. Maximum dose not to exceed 100 mcg., PACU HYDROmorphone (DILAUDID) injection 0.25 mg 0.25 mg, Intravenous, EVERY 5 MIN PRN, Starting on Mon11/29/19 at 1020, Until Mon11/29/19 at 1544, Pain, May give 0.5mg at a time for patients in severe pain., Do not exceed 3 mg in one hour unless otherwise ordered by the Anesthesia Coordinator For pain unrelieved by fentanyl, PACU meperidine (DEMEROL) injection (PF) 12.5 mg 12.5 mg, Intravenous, ONCE PRN, 1 dose, Starting on Mon11/29/19 at 1020, Until Mon11/29/19 at 1544, Shivering, Shivering, unless otherwise ordered by Anesthesia Coordinator, PACU ondansetron (ZOFRAN) injection 4 mg(Linked Group 1) 4 mg, Intravenous, PRN, 1 dose, Starting on Mon11/29/19 at 1020, Until Mon11/29/19 at 1544, Nausea, PACU ondansetron (ZOFRAN-ODT) disintegrating tablet 8 mg(Linked Group 1) 8 mg, Oral, PRN, 1 dose, Starting on Mon11/29/19 at 1020, Until Mon11/29/19 at 1544, Nausea, Dissolve in mouth, PACU oxyCODONE (ROXICODONE) immediate release tablet 5 mg 5 mg, Oral, EVERY 1 HOUR PRN, 2 doses, Starting on Mon11/29/19 at 1020, Until Mon11/29/19 at 1544, Pain, May take 2 tabs for pain if needed, When tolerating oral intake, PACU promethazine (PHENERGAN) 12.5 mg in sodium chloride 10 mL injection(Linked Group 2) 12.5 mg, Intravenous, PRN, 2 doses, Starting on Mon11/29/19 at 1020, Until Mon11/29/19 at 1544, Nausea, For persistent nausea unrelieved by other antiemetics. Begin with lowest dose unless otherwise directed. Give remainder of dose if nausea unrelieved in 20 minutes. Not to exceed 25 mg in one hour unless otherwise ordered by Anesthesia Coordinator. VESICANT , PACU promethazine (PHENERGAN) 6.25 mg in sodium chloride 10 mL injection(Linked Group 2) 6.25 mg, Intravenous, PRN, 2 doses, Starting on Mon11/29/19 at 1020, Until Mon11/29/19 at 1544, Nausea, For persistent nausea unrelieved by other antiemetics. Begin with lowest dose unless otherwise directed. Give remainder of dose if nausea unrelieved in 20 minutes. Not to exceed 25 mg in one hour unless otherwise ordered by Anesthesia Coordinator. VESICANT , PACU Linked Groups Order Group 1: ondansetron (ZOFRAN) injection 4 mgJump to med 4 mg, Intravenous, PRN, 1 dose, Starting on Mon11/29/19 at 1020, Until Mon11/29/19 at 1544, Nausea, PACU Or ondansetron (ZOFRAN-ODT) disintegrating tablet 8 mgJump to med 8 mg, Oral, PRN, 1 dose, Starting on Mon11/29/19 at 1020, Until Mon11/29/19 at 1544, Nausea, Dissolve in mouth, PACU Group 2: promethazine (PHENERGAN) 6.25 mg in sodium chloride 10 mL injectionJump to med 6.25 mg, Intravenous, PRN, 2 doses, Starting on Mon11/29/19 at 1020, Until Mon11/29/19 at 1544, Nausea, For persistent nausea unrelieved by other antiemetics. Begin with lowest dose unless otherwise directed. Give remainder of dose if nausea unrelieved in 20 minutes. Not to exceed 25 mg in one hour unless otherwise ordered by Anesthesia Coordinator. VESICANT , PACU Or promethazine (PHENERGAN) 12.5 mg in sodium chloride 10 mL injectionJump to med 12.5 mg, Intravenous, PRN, 2 doses, Starting on Mon11/29/19 at 1020, Until Mon11/29/19 at 1544, Nausea, For persistent nausea unrelieved by other antiemetics. Begin with lowest dose unless otherwise directed. Give remainder of dose if nausea unrelieved in 20 minutes. Not to exceed 25 mg in one hour unless otherwise ordered by Anesthesia Coordinator. VESICANT , PACU documented in this encounter Orders Medications Ordered That Tone ht Not Have Been Administered Count Last Ordered Date First Ordered Date acetaminophen (OFIRMEV) infusion 1,000 mg 1 11/29/2019 ceFAZolin (ANCEF) IVPB 2 g 1 11/29/2019 dimenhyDRINATE (DRAMAMINE) i njection 12.5-25 mg 1 11/29/2019 fentaNYL (SUBLIMAZE) injection 25 mcg 1 10/2019 HYDROmorphone (DILAUDID) injection 0.25 mg 1 11/29/2019 meperidine (DEMEROL) injecti on (PF) 12.5 mg 1 11/29/2019 ondansetron (ZOFRAN) injection 4 mg 1 11/28 ondansetron (ZOFRAN-ODT) dis integrating tablet 8 mg 1 11/29/2019 oxyCODONE (ROXICODONE) immed iate release tablet 5 mg 1 11/29/2019 promethazine (PHENERGAN) 12. 5 mg in sodium chloride 10 mL injection 1 11/29/2019 promethazine (PHENERGAN) 6.2 5 mg in sodium chloride 10 mL injection 1 11/29/2019 ropivacaine 2 mg/mL (0.2 %) 500 mL - InfuBLOCK single site pain pump 1 11/29/2019 documented in this encounter Care Teams Director Medical Relationship Specialty Start Date End Date Michelle Garrido APRN PCP - General Nurse Practitioner 01/09/17 01/14/21 documented as of this encounter
--- OUTSIDE RECORDS SUMMARY | 2024-05-29 15:46 | XMS_ITS | Encounter Summary ---
Author Organization [place] [address] Care Team Providers Care Dressmaker Or Tailor Name Role Phone Michelle Garrido APRN Primary Care Provider Willie aguila Encounter Details Date Type Department Care Team (Late st Contact Info) Description 12/05/2019 Telephone [facility] [address] [place], [place] [id number] Janessa Han Social History Tobacco Use Types Packs/Day Years [...] encounter Miscellaneous Notes * Telephone Encounter - Janessa Han - 12/05/2019 2:23 PM EDT Stop bang 5 documented in this encounter Plan of Treatment Upcoming Encounters Date Type Department Care Team (Late st Contact Info) Description 06/28/2024 9:40 AM EST Clinical Support [facility] [address] [place] [phone] 11/19/2024 1:40 PM EDT Office Visit [facility] Neurology [facility] [address] [place] [address] Lyndsay Brewer DO [address] [place] [address] documented as of this encounter [...] on filedocumented in this encounter Care Teams Dressmaker Or Tailor Relationship Specialty Start Date End Date Michelle Garrido APRN PCP - General Nurse Practitioner 01/09/17 01/14/21 documented as of this encounter
--- OUTSIDE RECORDS SUMMARY | 2024-05-29 15:46 | XMS_ITS | Encounter Summary ---
Author Organization [place] [address] Care Team Providers Care Component Lab Tech Name Role Phone Michelle Garrido APRN Primary Care Provider Willie aguila Encounter Details Date Type Department Care Team (Latest Contact Info) Description 04/13/2020 12:40 PM EDT - 04/13/2020 11:59 PM EDT Hospital Encounter [facility] [address] [place] [address] Pain of left calf Discharge Disposition: Home or Self Care Social [...] Discharge Nebulizer Accessories (ALL FLOW 4000 KIT) [facility] Formulary equivalent 1 Each 0 06/27/2012 [...] A DAY 180 Cap 1 10/31/2019 0 cyclobenzaprine (FLEXERIL) 10 mg Oral TabletIndications: Strain [...] AM EST Clinical Support [facility] [place] [address] [place] [address] 11/19/2024 1:40 PM EDT Office Visit [facility] Neurology [facility] [address] [place] [address] Lyndsay Brewer DO [address] [place] [address] documented as of this encounter [...] Procedure Name Priority Date/Time Associated Diagnosis Comments D-DIMER Routine 04/13/2020 12:45 PM EDT Pain of left calf documented in this encounter Results * D-DIMER (04/13/2020 12:45 PM EDT) D-Dimer <230 <=230 ng/mL D-DU 04/13/2020 2:51 PM EDT [facility] Comment: This test has been clinically validated by the estate and trust tax principal and approved by the FDA for exclusion [...] 12:45 PM EDT 04/13/2020 12:45 PM EDT Michelle Garrido APRN HEMATOLOGY ORDERABLES Final Result [facility] [address] [place] [address] , [place] [address] documented in this encounter Visit Diagnoses Diagnosis Pain of left calf documented in this encounter Care Teams Component Lab Tech Relationship Specialty Start Date End Date Michelle Garirdo APRN PCP - General Nurse Practitioner 01/09/17 01/14/21 documented as of this encounter
--- OUTSIDE RECORDS SUMMARY | 2024-05-29 15:46 | XMS_ITS | Encounter Summary ---
Author Organization [facility] Address [facility] [place] [address] Care Team Providers Care Reaming Machine Tender Name Role Phone Michelle Garrido APRN Primary Care Provider Unava ilable Reason for Referral * Nuclear Medicine (Routine) - Closed Specialty Diagnoses / Procedures Referred By Gus t Referred To Contact Radiology Diagnoses Pain, joint, foot, right Procedures NM BONE SCAN WHOLE BODY Carrie Samaniego PA-C [address] [place] [address] Phone: tel: fax: Referral ID Status Reason Start Date Expiration Date Visits Re quested Visits Authorized [id number] Closed 04/21/2020 04/21/2022 5 5 Reason for Visit * Nuclear Medicine (Routine) - Closed Specialty Diagnoses / Procedures Referred By Gus kunz Referred To Contact Radiology Diagnoses Pain, joint, foot, right Procedures NM BONE SCAN WHOLE BODY Carrie Samaniego PA-C [address] [place] [address] Phone: tel: fax: Referral ID Status Reason Start Date Expiration Date Visits Re quested Visits Authorized [id number] Closed 04/21/2020 04/21/2022 5 5 Encounter Details Date Type Department Care Team (Late st Contact Info) Description 05/11/2020 8:04 AM EST - 05/11/2020 8:08 AM EST Hospital Encounter [facility] [place] [address] Carrie Samaniego PA-C [address] [place] [address] Pain, joint, foot, right Discharge Disposition: Home or Self Care Social [...] – [place] Formulary equivalent 1 Each 0 06/27/2012 ADVAIR [...] DAY AT NIGHT 90 Cap 1 01/13/2020 documented as of this encounter Discharge Disposition Disposition Code Departure Means Destination Home or Self Care documented in this encounter Plan of Treatment Upcoming Encounters Date Type Department Care Team (Late st Contact Info) Description 06/28/2024 9:40 AM EST Clinical Support [facility] [address] [place] [phone] 11/19/2024 1:40 PM EDT Office Visit [facility] Neurology [facility] [address] [place] [address] Lyndsay Brewer DO [address] [place] [address] documented as of this encounter [...] in right ankle and joints of right [id number] COMPARISON: ??No recent x-rays. Left ankle x-ray 09/20/2019, right knee x-ray 12/16/2016 PROCEDURE COMMENTS: ??28.3 mCi of [id number]. ??Whole body bone scanning per protocol. FINDINGS: [...] in right ankle and joints of right [id number] COMPARISON: No recent x-rays. Left ankle x-ray 09/20/2019, right kneex-ray 12/16/2016 PROCEDURE COMMENTS: 28.3 mCi of [id number]. Whole body bone scanningper protocol. FINDINGS: Degenerative [...] involving the knees, right greater thanleft. - Carrie Samaniego PA-C Jose NM ORDERABLES Final Res ult documented in this encounter Visit Diagnoses Diagnosis Pain, joint, foot, right Pain in joint, ankle and foot documented in this encounter Administered Medications Inactive Administered Medications - up to 1 most recent administrations Medication Order MAR Action Action Date Dose Rate Site Tc-99m medronate sodium (MDP) injection 28.3 millicurie 28.3 millicurie, Intravenous, ONCE PRN, 1 dose, Starting on 05/11/20 at 0841, Until Mon05/11/20 at 0842, Radiography/Imaging, Radiology Procedure, Administration dose must be within 10% of the ordered dose for radiopharmaceutical medications., Radiology Given 05/11/2020 8:42 AM EST 28.3 millicuries documented in this encounter Care Teams Reaming Machine Tender Relationship Specialty Start Date End Date Michelle Garrido, ACID WASH OPERATOR PCP - General Nurse Practitioner 01/09/17 01/14/21 documented as of this encounter
--- OUTSIDE RECORDS SUMMARY | 2024-05-29 15:46 | XMS_ITS | Encounter Summary ---
Author Organization [facility] [place] [address] Care Team Providers Care Professional Tutor Name Role Phone Michelle Garrido APRN Primary Care Provider Unava ilable Encounter Details Date Type Department Care Team (Latest Contact Info) Description 11/29/2019 Travel Social History Tobacco Use Types Packs/Day [...] EST Clinical Support [facility] [address] [place] [address] 11/19/2024 1:40 PM EDT Office Visit SEP Neurology [facility] [address] [place] [address] Lyndsay Brewer DO [address] [facility] [address] [place] [address] documented as of this encounter [...] on filedocumented in this encounter Care Teams Professional Tutor Relationship Specialty Start Date End Date Michelle Garrido APRN PCP - General Nurse Practitioner 01/09/17 01/14/21 documented as of this encounter
--- OUTSIDE RECORDS SUMMARY | 2024-05-29 15:46 | XMS_ITS | Encounter Summary ---
Author Organization [place] [address] Care Team Providers Care University Services Program Associate Name Role Phone Michelle Garrido APRN Primary Care Provider Unava ilable Reason for Visit * Reason Comments Medication Refill Encounter Details Date Type Department Care Team (Late st Contact Info) Description 04/30/2020 Refill [facility] [address] [place] [address] Michelle Garrido APRN Medication Refill [...] TWICE A DAY 180 Cap 04/30/2020 1 documented in this encounter Plan of Treatment Upcoming Encounters Date Type Department Care Team (Late st Contact Info) Description 06/28/2024 9:40 AM EST Clinical Support [facility] [place] [address] [place], [place] [phone] 11/19/2024 1:40 PM EDT Office Visit [facility] Neurology [facility] [address] [place] [address] Lyndsay Brewer DO [address] [place] [address] documented as of this encounter Goals [...] 1 CAPSULE BY MOUTH TWICE A DAY 10/31/2019 04/30/2020 documented as of this encounter Care Teams University Services Program Associate Relationship Specialty Start Date End Date Michelle Garrido APRN PCP - General Nurse Practitioner 01/09/17 01/14/21 documented as of this encounter
--- OUTSIDE RECORDS SUMMARY | 2024-05-29 15:46 | XMS_ITS | Encounter Summary ---
Author Organization [facility] [place] [address] Care Team Providers Care Fast Food Delivery Driver Name Role Phone Michelle Garrido APRN Primary Care Provider Unava ilable Encounter Details Date Type Department Care Team (Late st Contact Info) Description 12/02/2019 Abstract [facility] [address] [place], [place] [id number] Rocio Bueno RN Social History Tobacco Use Types Packs/Day Years [...] AM EST Clinical Support [facility] [place] [address] [place] [address] 11/19/2024 1:40 PM EDT Office Visit [facility] Neurology [facility] [address] [place] [phone] Lyndsay Brewer DO [address] [place] [address] documented as of this encounter Goals Goal [...] on filedocumented in this encounter Care Teams Fast Food Delivery Driver Relationship Specialty Start Date End Date Michelle Garrido, HEALTH PROGRAM ANALYST PCP - General Nurse Practitioner 01/09/17 01/14/21 documented as of this encounter
--- OUTSIDE RECORDS SUMMARY | 2024-05-29 15:46 | XMS_ITS | Encounter Summary ---
Author Organization [facility] [place] [address] Care Team Providers Care Gastrointestinal Technician Name Role Phone Michelle Garrido APRN Primary Care Provider Unava ilable Encounter Details Date Type Department Care Team (Latest Contact Info) Description 03/31/2020 Travel Social History Tobacco Use Types Packs/Day [...] EST Clinical Support [facility] [address] [place] [address] 11/19/2024 1:40 PM EDT Office Visit SE[facility] Neurology [facility] [address] [place] [address] Lyndsay Brewer DO [address] [facility] [address] [place] [address] documented as of this encounter [...] on filedocumented in this encounter Care Teams Gastrointestinal Technician Relationship Specialty Start Date End Date Michelle Garrido APRN PCP - General Nurse Practitioner 01/09/17 01/14/21 documented as of this encounter
--- OUTSIDE RECORDS SUMMARY | 2024-05-29 15:46 | XMS_ITS | Encounter Summary ---
Author Organization [facility] [place] [address] Care Team Providers Care Bobbin Loose End Finder Name Role Phone Michelle Garrido APRN Primary Care Provider Unava ilable Encounter Details Date Type Department Care Team (Latest Contact Info) Description 04/13/2020 Travel Social History Tobacco Use Types Packs/Day [...] EST Clinical Support [facility] [address] [place] [address] 11/19/2024 1:40 PM EDT Office Visit SEP Neurology [facility] [address] [place] [address] Lyndsay Brewer DO [address] [facility] [address] [place] [address] documented as of this encounter [...] on filedocumented in this encounter Care Teams Bobbin Loose End Finder Relationship Specialty Start Date End Date Michelle Garrido APRN PCP - General Nurse Practitioner 01/09/17 01/14/21 documented as of this encounter
--- NOTE | 2024-05-29 15:47 | [facility].EDCP ---
Discharge Plan Disposition Patient Disposition: Home, Self-Care Prescriptions Prescriptions: New prednisone 20 mg tablet 40 mg PO DAILY 5 Days Qty: 10 0RF cefdinir 300 mg capsule 300 mg PO BID 7 Days Qty: 14 0RF azithromycin 500 mg tablet 500 mg PO DAILY 2 Days Qty: 2 0RF Rx Instructions: start on day 2 of therapy No Action prednisone 20 mg tablet 40 mg PO DAILY 5 Days Qty: 10 0RF amoxicillin-pot clavulanate 875-125 mg tablet 1 tab PO BID 7 Days Qty: 14 0RF azithromycin 500 mg tablet 500 mg PO DAILY 2 Days Qty: 2 0RF Rx Instructions: start on day 2 of therapy ipratropium-albuterol 0.5 mg-3 mg(2.5 mg base)/3 mL solution for nebulization 3 ml inhalation Q4H PRN (Reason: shortness of breath) Qty: 180 1RF Rx Instructions: until breathing returns to target peak flow/parameters colestipol 1 GM tablet 1 g PO BID Patient Comments: TAKE 1 TABLET BY MOUTH 2 TIMES DAILY. NEEDS AN APPOINTMENT losartan 50 MG tablet 50 mg PO DAILY celecoxib 200 MG capsule 200 mg PO BID tamsulosin 0.4 MG capsule 0.4 mg PO DAILY montelukast 10 MG tablet 10 mg PO PM hydrochlorothiazide 12.5 MG tablet 12.5 mg PO DAILY albuterol sulfate 90 MCG aerosol powdr breath activated 90 mcg IH NEEDED PRN (Reason: Wheezing) amlodipine 10 MG tablet 10 mg PO DAILY fluticasone propion-salmeterol 28 PUFF blister with device 1 puff IH NEEDED PRN (Reason: Wheezing) tadalafil 5 MG tablet 5 mg PO DAILY prednisone 20 MG tablet 20 mg PO BID Qty: 10 0RF levofloxacin 500 MG tablet 500 mg PO DAILY Qty: 7 0RF benzonatate 100 MG capsule 100 mg PO TID Qty: 21 0RF Referrals Follow up/Referrals: Steffanie Fulton APRN [Primary Care Provider] - See instructions Activity Restrictions/Add. Instructions Additional Instructions/Restrictions: Cefdinir twice daily for 7 days, azithromycin each morning for the next 2 days. Also take prednisone in the morning for the next 5 days to help with inflammation. As discussed, if you have any worsening of symptoms, or nonimprovement, these would both be indications for returning to the emergency department for admission for IV antibiotics and further monitoring. Clinical Impressions Clinical Impression: Community acquired pneumonia Qualifiers: Laterality: left Lung location: upper lobe of lung Qualified Code(s): J18.9 - Pneumonia, unspecified organism Print Language Print Language: Uzbek Discharge ED Provider: Jose Rosas HPI General Chief Complaint: Shortness of Breath/Dyspnea Stated Complaint: SOA sore throat recommended coming Time Seen by Provider: 05/29/24 15:14 Mode of Arrival: Ambulatory Source of Information: Patient Limitations: No Limitations Description of Symptoms (Recalled from ER Triage Doc. by RN): Patient reports that he was here on and diagnosed with PNA. States that his shortness of breath has gotten worse and upon follow up with his PCP they recommended him to come to the er for further evaluation. History of Present Illness HPI narrative: Please note that above description of symptoms, in this electronic medical record under categorization of recalled from ER triage doctor by RN are reflective of an initial nursing assessment, however, is not reflective of my full history and physical exam that was personally taken and clarified. Consequentially, this preceding description of symptoms, which may include the patient's categorized chief complaint in the EMR, do not reflect my personal clinical impression, and the ultimate description of history of present illness and patient stated complaints should be deferred to this section of the note. Unless stated otherwise or congruent with this section of the note, additional signs, symptoms, or incongruence should be interpreted as inaccurate with my clinical impression. Related Data Home Medications ?Medication ?Instructions ?Recorded ?Confirmed albuterol sulfate 90 mcg/actuation 90 mcg IH NEEDED PRN Wheezing 10/17/21 10/17/21 breath activated powder inhaler amlodipine 10 mg tablet 10 mg PO DAILY High blood pressure 10/17/21 10/17/21 celecoxib 200 mg capsule 200 mg PO BID Arthritis 10/17/21 10/17/21 colestipol 1 gram tablet 1 g PO BID High cholesterol 10/17/21 10/17/21 fluticasone 500 mcg-salmeterol 50 1 puff IH NEEDED PRN Wheezing 10/17/21 10/17/21 mcg/dose blistr powdr for inhalation hydrochlorothiazide 12.5 mg tablet 12.5 mg PO DAILY Hypertension 10/17/21 10/17/21 losartan 50 mg tablet 50 mg PO DAILY High blood pressure 10/17/21 10/17/21 montelukast 10 mg tablet 10 mg PO PM GERD 10/17/21 10/17/21 tadalafil 5 mg tablet 5 mg PO DAILY Erectile dysfunction 10/17/21 10/17/21 tamsulosin 0.4 mg capsule 0.4 mg PO DAILY Fluid 10/17/21 10/17/21 Previous Rx's ?Medication ?Instructions ?Recorded benzonatate 100 mg capsule 100 mg PO TID #21 caps 10/17/21 levofloxacin 500 mg tablet 500 mg PO DAILY #7 tabs 10/17/21 prednisone 20 mg tablet 20 mg PO BID #10 tabs 10/17/21 amoxicillin 875 mg-potassium 1 tab PO BID 7 days #14 tabs 05/23/24 clavulanate 125 mg tablet azithromycin 500 mg tablet 500 mg PO DAILY 2 days #2 tabs 05/23/24 ipratropium 0.5 mg-albuterol 3 mg 3 ml inhalation Q4H PRN shortness 05/23/24 (2.5 mg base)/3 mL nebulization of breath #180 mL soln prednisone 20 mg tablet 40 mg (2 x 20 mg) PO DAILY 5 days 05/23/24 #10 tabs azithromycin 500 mg tablet 500 mg PO DAILY 2 days #2 tabs 05/29/24 cefdinir 300 mg capsule 300 mg PO BID 7 days #14 caps 05/29/24 prednisone 20 mg tablet 40 mg (2 x 20 mg) PO DAILY 5 days 05/29/24 #10 tabs Allergies Allergy/AdvReac Type Severity Reaction Status Date / Time aripiprazole (From [facility]) Allergy Unknown Verified 05/29/24 15:23 allergy reaction Morphine Allergy Mild ANGRY Uncoded 06/13/17 14:55 Nonsteroidal Allergy Mild ELEVATE BP Uncoded 06/13/17 14:55 Antiinflammatory Drug [facility] Disclaimer: The information contained in this section may have been updated after the patient was seen, as this information can be updated by other users. Social History (Updated 03/10/24 @ 09:09 by Luis Carlos Garrido DO) Smoking Status: Never smoker alcohol intake: former current occupational status: other Travel in the last 8 weeks: None Other Medical History Have you received the Flu Vaccine for this season: No Have you received the Pneumonia Vaccine: No ROS Obtained: Yes All systems reviewed & no additional complaints except as documented Physical Exam General General appearance: alert and obese Head Head exam: atraumatic and normocephalic Eye Eye exam: Present normal appearance, PERRL and EOMI ENT ENT exam: Present TM's normal bilaterally and other (Pharyngeal erythema. No evidence of tonsillitis, exudate, uvular deviation, palatal swelling, trismus, external neck swelling, submental induration, dental abscess, angioedema, or other abnormal estefania pharyngeal findings) Neck Neck exam: Present normal inspection, full ROM and trachea midline; Absent lymphadenopathy Chest Chest inspection: Present normal inspection and symmetric chest wall rise Respiratory Respiratory exam: Present wheezes (Inspiratory and expiratory wheezes inferior lung barker posteriorly on the right side. Intermittently coughing); Absent respiratory distress, stridor, accessory muscle use or prolonged expiratory phase Cardiovascular Cardiovascular exam: Present other (Pulses equal symmetric in upper and lower extremities) Abdominal Exam Abdominal exam: Present soft; Absent distention, tenderness or pulsatile mass Extremities Exam Extremities exam: Absent edema Neurological Exam Neurological exam: Present alert, oriented X3 and CN II-XII intact; Absent motor sensory deficit Skin Skin exam: Present warm and dry; Absent diaphoresis or erythema HEART Score HEART Score HEART Score assessment performed?: No Critical Care Critical Care Time Critical Care Time: No Medical Decision Making Medical Records Medical records reviewed: Yes I reviewed the patient's medical records. Dejon Inquiry Pt receiving controlled substance: No Dejon was queried for this patient: No Vital Signs Vital Signs: 05/29/24 15:11 Pulse Rate [Radial] 94 H Respiratory Rate 18 Blood Pressure [Right Arm] 140/94 H Blood Pressure Mean [Right Arm] 109 Blood Pressure Source [Right Arm] Automatic Cuff Blood Pressure Position [Right Arm] Sitting 02 Sat by Pulse Oximetry 96 Oxygen Delivery Method Room Air Lab Data Labs: Lab Results 05/29/24 15:36: Chlamy pneumoniae PCR Not detected, Adenovirus (PCR) Not detected, B. pertussis DNA (PCR) Not detected, Coronavirus OC43 (PCR) Not detected, Coronavirus HKU1 (PCR) Not detected, Coronavirus 229E (PCR) Not detected, SARS-CoV-2 (PCR) Not detected, Coronavirus NL63 (PCR) Not detected, Human Metapneumovir PCR Not detected, Influenza A (H1) PCR Not detected, Influ A (H1N1/09) PCR Not detected, Influenza A (H3) PCR Not detected, Influenza Type A (PCR) Not detected, Influenza Type B (PCR) Not detected, M. pneumoniae (PCR) Not detected, Parainfluenza 1 (PCR) Not detected, Parainfluenza 2 (PCR) Not detected, Parainfluenza 3 (PCR) Not detected, Parainfluenza 4 (PCR) Not detected, RSV (PCR) Not detected, Entero/Rhino (PCR) Detected A 05/29/24 16:36: VBG pH 7.46 H, VBG pCO2 33.2 L, VBG pO2 133.7 H, VBG HCO3 23.1, VBG Total CO2 24.1, VBG O2 Saturation 99.0 H, VBG Base Excess -0.7, VBG Lactic Acid 1.9 05/29/24 16:41: WBC 9.8, RBC 4.45 L, Hgb 14.5, Hct 43.0, MCV 96.6 H, MCH 32.7 H, MCHC 33.8, RDW 13.6, Plt Count 237, MPV 7.2 L, Neut % (Auto) 63.6, Lymph % (Auto) 27.9, [place] % (Auto) 5.9, Eos % (Auto) 1.3, Baso % (Auto) 1.3, Neut # (Auto) 6.2, Lymph # (Auto) 2.7, [place] # (Auto) 0.6, Eos # (Auto) 0.1, Baso # (Auto) 0.1, Sodium 137, Potassium 4.0, Chloride 105, Carbon Dioxide 27, Anion Gap 9.0, BUN 21 H, Creatinine 0.90, Estimated Creat Clear 135, Estimated GFR 87, Est GFR ( Amer) 106, Glucose 139 H, Lactate 1.8, Calcium 9.1, Magnesium 2.2, Total Bilirubin 0.4, AST 47, ALT 55, Alkaline Phosphatase 117, NT-Pro-B Natriuret Pep 66.7, Total Protein 6.8, Albumin 4.0, Globulin 2.8, Albumin/Globulin Ratio 1.4, HIV 1&2 Antibody Rapid Nonreactive 05/29/24 16:41 05/29/24 16:41 Response Orders (Tests/Meds): ED MEDICATIONS Generic Name Dose Route Start Last Admin Trade Name Freq PRN Reason Stop Dose Admin Ceftriaxone Sodium 2 gm/ 100 mls @ 200 mls/hr 05/29/24 18:59 05/29/24 19:13 Sodium Chloride IV 05/29/24 19:28 200 mls/hr ONCE ONE Administration Discontinued Medications Generic Name Dose Route Start Last Admin Trade Name Jese PRN Reason Stop Dose Admin Albuterol/Ipratropium 9 ml 05/29/24 15:33 05/29/24 15:43 Ipratropium/Albuterol 3 Ml Neb IH 05/29/24 15:34 9 ml ONCE ONE Administration Azithromycin 500 mg 05/29/24 15:33 05/29/24 15:43 Azithromycin 250mg Tablet PO 05/29/24 15:34 500 mg ONCE ONE Administration Iopamidol 70 ml 05/29/24 17:32 05/29/24 17:33 Iopamidol-370 (76%);100ml Bottle IV 05/29/24 17:33 70 ml ONCE ONE Administration Sodium Chloride 10 ml 05/29/24 17:32 05/29/24 17:33 Sodium Chloride 0.9% 10ml Syr (Rad Only) IV 05/29/24 17:33 10 ml ONCE ONE Administration Sodium Chloride 50 ml 05/29/24 17:32 05/29/24 17:33 0.9 % Sodium Chloride 50 Ml Vial IV 05/29/24 17:33 50 ml ONCE ONE Administration ORDERS Category Date Time Status CT angio chest PE protocol Stat Cat Scan 05/29/24 16:36 Completed CXR 2 view (NOT portable) [XR chest 2V] Stat Exams 05/29/24 15:33 Completed CBC w/Auto Diff [Complete Blood Count Auto Diff] Stat Lab 05/29/24 16:41 Completed CMP [Comprehensive Metabolic Panel] Stat Lab 05/29/24 16:41 Completed Full Resp Panel w/COVID (H) Routine Lab 05/29/24 15:36 Completed HIV (1&2) Antibody Rapid Stat Lab 05/29/24 16:41 Completed Hep C Ab with Reflex to RNA Stat Lab 05/29/24 16:41 Received Lactic Acid Stat Lab 05/29/24 16:41 Completed MAG [Magnesium] Stat Lab 05/29/24 16:41 Completed NT Pro Brain Natriuretic Pep. Stat Lab 05/29/24 16:41 Completed Blood Culture Stat Micro 05/29/24 17:16 Received VBG [Venous Blood Gas] Stat RT 05/29/24 16:36 Completed MDM Narrative Medical Decision Narrative: 58-year-old male history of asthma and recent diagnosis of community-acquired pneumonia presenting with persistent symptoms. Patient states that since he was seen by me about a week prior to this, has been taking his Augmentin and his prednisone as prescribed. States that he has not felt any better. Followed up with his family provider today who listened to him and recommended he come back to the emergency department for further evaluation. Patient states that he now has pharyngitis without voice changes, neck stiffness, difficulty or pain with swallowing. States that it more feels dry. Also states that he has lost nearly all sense of taste and that everything tastes like chalk. No chest pain, shortness of breath, but he has had persistent cough. Now having muscle cramps in his lower back when he is coughing that are not present when he is not. 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 Patient's family members have had exposures to multiple bugs including viruses, atypical bugs including atypical pneumonias and pertussis, etc. Multiple family members who have had persistent cough for weeks. History was obtained via conversation with patient and . On arrival, patient hemodynamically stable, alert, oriented x4, appropriate, GCS 15, moving all extremities spontaneously, pupils equal and reactive to light. Full physical exam performed and significant for 58-year-old male no acute distress. He is intermittently coughing, not producing anything. Lungs with minimal expiratory wheezes heard throughout most lung barker, however patient does have inspiratory and expiratory wheezes heard in posterior/inferior right sided lung barker. This was consistent with his exam just a couple days prior to this. Nontachypneic, nontachycardic. Saturating 96 to 97% on room air. Differential includes atypical pneumonia, viral pneumonia, PE, pneumothorax, among others.. Patient was given DuoNebs, azithromycin p.o. for symptomatic management and correction of underlying abnormalities. Patient placed on continuous cardiac monitoring and continuous pulse ox with initial blood pressure 140/94, heart rate 84, saturation 96% on room air. Patient initially declining IV placement given numerous pokes at his last visit and would like to initiate workup with conservative approach. Given well appearance overall, I do not feel this is unreasonable. Workup independently interpreted and significant for nonactionable CBC with improved leukocytosis now normal down from 12.1. Chemistry nonactionable, VBG also nonactionable. Lactate negative. BNP negative. Full viral swab positive for rhino/enterovirus. Chest x-ray independently interpreted. He has persistent right lower versus right middle lobe opacity. On independent interpretation of CT imaging, patient has right middle lobe pneumonia. See radiology read for full review of final results. On reevaluation, patient states that he feels as he did not baseline on arrival. Prolonged conversation had with patient and . They are both frustrated and worried about patient, I feel this is reasonable. Patient was told that he would definitely be admitted in order to have the pneumonia treated with IV antibiotics, opting for this. After prolonged discussion, improvement in labs, very clinically well-appearing patient with right middle lobe pneumonia on chest x-ray and on CT, I do feel he is appropriate for outpatient therapy. Because patient does feel clinically well, I feel this is also likely national account representative of a resolving pneumonia with overlapping rhino/enterovirus viral syndrome. Shared decision making landed on patient feeling comfortable going home to trial outpatient therapy with another round of azithromycin, cefdinir, and prednisone. I feel patient is low likelihood of decompensation, but close return precautions were discussed and both patient and voiced their understanding. At this time, I feel patient is appropriate for discharge. Because patient at baseline without signs or symptoms of clinical decompensation, deemed appropriate for discharge. Results were relayed to patient who voiced understanding and were agreeable to outpatient management and follow up. I discussed my clinical impression with patient and answered all questions. At this time, the evidence for any other entities in the differential is insufficient to warrant any further testing or ED observation. This was explained as well. Advisory was given that persistent or worsening symptoms require further evaluation. I confirmed the understanding of this discussion. Mallet Cutter disclaimer Much of this encounter note is an electronic ad terminal makeup operator spoken language to printed text. Electronic ad terminal makeup operator of the spoken language may permit errors. Although I have reviewed the note, some errors may still exist.
--- OUTSIDE RECORDS SUMMARY | 2024-05-29 15:47 | XMS_ITS | Encounter Summary ---
Author Organization [facility] [place] [address] Care Team Providers Care Relocation Manager Name Role Phone Michelle Garrido APRN Primary Care Provider Unava ilable Encounter Details Date Type Department Care Team (Latest Contact Info) Description 09/20/2019 Travel Social History Tobacco Use Types Packs/Day [...] have Coronavirus / COVID-19? No / Unsure 09/20/2019 9:35 AM EDT documented as of this encounter [...] EST Clinical Support [facility] [address] [place] [address] 11/19/2024 1:40 PM EDT Office Visit SEP Neurology [facility] [address] [place] [address] Lyndsay Brewer DO [address] [facility] [address] [place] [address] documented as of this encounter [...] on filedocumented in this encounter Care Teams Relocation Manager Relationship Specialty Start Date End Date Michelle Garrido APRN PCP - General Nurse Practitioner 01/09/17 01/14/21 documented as of this encounter
--- OUTSIDE RECORDS SUMMARY | 2024-05-29 15:47 | XMS_ITS | Encounter Summary ---
Author Organization [place] [address] Care Team Providers Care Parts Room Clerk Name Role Phone Michelle Garrido APRN Primary Care Provider Unava ilable Reason for Visit * Reason Comments Medication Refill Encounter Details Date Type Department Care Team (Late st Contact Info) Description 08/26/2019 Refill [facility] [address] [place] [address] Michelle Garrido APRN Medication Refill Social History Tobacco Use Types Packs/Day Years Used Date Smoking Tobacco: Never Smokeless Tobacco: Current Snuff Alcohol Use Standard Drinks/Week Comments No 0 (1 standard drink = 0.6 oz pur e alcohol) PHQ-2 Answer Date Recorded PHQ-2 Score 0 04/15/2019 Sex and Gender Information Value Date Recorded [...] Refills Last Filled Start Date End Date VIBERZI 100 mg Oral TabletIndications: Irritable bowel syndrome with diarrhea TAKE 1 TABLET BY MOUTH TWICE A DAY 54 Tab 1 08/26/2019 11/05/2019 documented in this encounter Miscellaneous Notes * Telephone Encounter - Farzana Garrido MA - 08/26/2019 11:32 AM EST DENZEL: 07/19/2019 as expected [id number] LRF 07/19 GUS 08/25 documented in this encounter Plan of Treatment Upcoming Encounters Date Type Department Care Team (Late st Contact Info) Description 06/28/2024 9:40 AM EST Clinical Support [facility] [place] [address] [place] [address] 11/19/2024 1:40 PM EDT Office Visit [facility] Neurology [facility] [address] [place] [address] Lyndsay Brewer DO [address] [facility] [address] [place] [address] documented as of this encounter Goals Goal [...] 1 TABLET BY MOUTH TWICE A DAY 07/19/2019 08/26/2019 documented as of this encounter Care Teams Parts Room Clerk Relationship Specialty Start Date End Date Michelle Garrido APRN PCP - General Nurse Practitioner 01/09/17 01/14/21 documented as of this encounter
--- OUTSIDE RECORDS SUMMARY | 2024-05-29 15:47 | XMS_ITS | Encounter Summary ---
Author Organization [place] [address] Care Team Providers Care Soaker Helper Name Role Phone Michelle Garrido APRN Primary Care Provider Willie aguila Encounter Details Date Type Department Care Team (Latest Contact Info) Description 11/25/2019 4:45 PM EDT - 11/25/2019 11:59 PM EDT Hospital Encounter [facility] [place] [address] Preop testing Discharge Disposition: Home or Self Care Social [...] have Coronavirus / COVID-19? No / Unsure 11/25/2019 4:48 PM EDT documented as of this encounter Functional Status * Is the person deaf or does he/she have serious difficulty hearing? Answer Date of Assessment Author No 07/03/2019 8:15 AM Maddy Snow RMJane * Is the person blind or [...] 07/03/2019 8:15 AM Maddy Snow RMJane documented as of this encounter Mental Status * Because of a physical, mental or emotional condition, does this person have serious difficulty concentrating, remembering or making decisions? Answer Entry Date Author No 07/03/2019 8:15 AM Maddy Snow RMJane documented in this encounter Medications at Time of Discharge Nebulizer Accessories (ALL FLOW 4000 KIT) [facility] Formulary equivalent 1 Each 0 06/27/2012 ADVAIR [...] EST Clinical Support [facility] [address] [employer] [place] [address] 11/19/2024 1:40 PM EDT Office Visit SEP Neurology [facility] [address] [place] [address] Lyndsay Brewer [address] [place] [address] documented as of [...] Procedure Name Priority Date/Time Associated Diagnosis Comments BASIC METABOLIC PANEL Routine 11/25/2019 5:11 PM EDT Preop testing documented in this encounter Results * BASIC METABOLIC PANEL (11/25/2019 5:11 PM EDT) Sodium 139 136 - 145 mmol/L 11/25/2019 6:10 PM EDT [facility] Potassium 4.4 3.5 - 5.0 mmol/L 11/25/2019 6:10 PM EDT [facility] Chloride 101 98 - 107 mmol/L 11/25/2019 6:10 PM EDT [facility] Total CO2 27 22 - 29 mmol/L 11/25/2019 6:10 PM EDT [facility] Anion Gap 11 7 - 16 mmol/L 11/25/2019 6:10 PM EDT [facility] Calcium 9.9 8.6 - 10.4 mg/dL 11/25/2019 6:10 PM EDT [facility] Glucose Lvl 96 74 - 100 mg/dL 11/25/2019 6:10 PM EDT [facility] BUN 16 6 - 20 mg/dL 11/25/2019 6:10 PM EDT [facility] Creatinine 1.09 0.67 - 1.30 mg/dL 11/25/2019 6:10 PM EDT [facility] GFR Afr Am 90 >=60 mL/min/1.7 3 m2 11/25/2019 6:10 PM EDT [facility] GFR Non Afr Am 78 >=60 mL/min/1.7 3 m2 11/25/2019 6:10 PM EDT [facility] Comment: This estimated GFR was calculated [...] VENOUS BLOOD / Unknown Venipuncture / Unknown 11/25/2019 5:11 PM EDT 11/25/2019 5:14 PM EDT us Bubba Go MD CHEMISTRY ORDERABLES Final Resu lt [facility] [address] [facility] , [place] [address] [facility] 1 [place] [address] documented in this encounter Visit Diagnoses Diagnosis Preop testing Preoperative examination, unspecified documented in this encounter Care Teams Soaker Helper Relationship Specialty Start Date End Date Michelle Garrido APRN PCP - General Nurse Practitioner 01/09/17 01/14/21 documented as of this encounter
--- OUTSIDE RECORDS SUMMARY | 2024-05-29 15:47 | XMS_ITS | Encounter Summary ---
Author Organization [facility] [address] Care Team Providers Care Volunteer Services Coordinator Name Role Phone Michelle Garrido APRN Primary Care Provider Unava ilable Encounter Details Date Type Department Care Team (Latest Contact Info) Description 09/04/2019 Travel Social History Tobacco Use Types Packs/Day [...] Assessment Author No 07/03/2019 8:15 AM Maddy nSow RMA * Does this person have serious [...] AM EST Clinical Support [facility] [place] [address] [facility] [place] [address] 11/19/2024 1:40 PM EDT Office Visit SEP Neurology [facility] [address] [place] [phone] Lyndsay Brewer DO [address] [address] documented as of this encounter [...] on filedocumented in this encounter Care Teams Volunteer Services Coordinator Relationship Specialty Start Date End Date Michelle Garrido APRN PCP - General Nurse Practitioner 01/09/17 01/14/21 documented as of this encounter
--- OUTSIDE RECORDS SUMMARY | 2024-05-29 15:47 | XMS_ITS | Encounter Summary ---
Author Organization [place] [address] Care Team Providers Care Condominium Manager Name Role Phone Michelle Garrido APRN Primary Care Provider Willie aguila Encounter Details Date Type Department Care Team (Late st Contact Info) Description 11/25/2019 Orders Only EDG [facility] [address] [place] [address] Bubba Go MD 1 [facility] [address] Preop testing (Primary Dx) Social History Tobacco Use Types [...] Coronavirus / COVID-19? No / Unsure 11/25/2019 11:21 AM EDT documented as of this encounter [...] 8:15 AM EST Maddy White ESTEFANY * Because of a physical, mental [...] Maddy Snow ESTEFANY documented in this encounter Plan of Treatment Upcoming Encounters Date Type Department Care Team (Late st Contact Info) Description 06/28/2024 9:40 AM EST Clinical Support [facility] [place] [address] [place] [phone] 11/19/2024 1:40 PM EDT Office Visit SEP Neurology [facility] [address] [place] [address] Lyndsay Brewer DO [address] [place] [address] documented as of this encounter Goals Goal Patient Goal Type Associated Problems Recent Progress Patient-Stated? Author Blood Pressure < 140/90 Blood Pressure 134/84(2023 1:16 PM EST) No Yana Choi RMA Eat better, exercise, reach an ideal body weight General No Choi, Yana G, RMA Stay Tobacco Free Lifestyle No Yana Choi, RMA documented as of this encounter Results * BASIC METABOLIC PANEL (11/25/2019 5:11 PM EDT) Sodium 139 136 - 145 mmol/L 11/25/2019 6:10 PM EDT [facility] Potassium 4.4 3.5 - 5.0 mmol/L 11/25/2019 6:10 PM EDT [facility] Chloride 101 98 - 107 mmol/L 11/25/2019 6:10 PM EDT [facility] Total CO2 27 22 - 29 mmol/L 11/25/2019 6:10 PM EDT [facility] Anion Gap 11 7 - 16 mmol/L 11/25/2019 6:10 PM EDT [facility] Calcium 9.9 8.6 - 10.4 mg/dL 11/25/2019 6:10 PM EDT [facility] Glucose Lvl 96 74 - 100 mg/dL 11/25/2019 6:10 PM EDT [facility] BUN 16 6 - 20 mg/dL 11/25/2019 6:10 PM EDT [facility] Creatinine 1.09 0.67 - 1.30 mg/dL 11/25/2019 6:10 PM EDT [facility] GFR Afr Am 90 >=60 mL/min/1.7 3 m2 11/25/2019 6:10 PM EDT [facility] GFR Non Afr Am 78 >=60 mL/min/1.7 3 m2 11/25/2019 6:10 PM EDT [facility] Comment: This estimated GFR was calculated [...] CHEMISTRY ORDERABLES Final Resu lt [facility] [address] [place] [address] [facility] [address] [place] [address] documented in this encounter Visit Diagnoses Diagnosis Preop testing- Primary Preoperative examination, unspecified documented in this encounter Care Teams Condominium Manager Relationship Specialty Start Date End Date Michelle Garrido APRN PCP - General Nurse Practitioner 01/09/17 01/14/21 documented as of this encounter
--- OUTSIDE RECORDS SUMMARY | 2024-05-29 15:47 | XMS_ITS | Encounter Summary ---
Author Organization [place] [address] Care Team Providers Care Matrix Inspector Name Role Phone Michelle Garrido APRN Primary Care Provider Unava ilable Reason for Visit * Reason Comments Medication Refill Encounter Details Date Type Department Care Team (Late st Contact Info) Description 11/05/2019 Refill [facility] [place] [address] [place] [address] Michelle Garrido APRN Medication Refill [...] have Coronavirus / COVID-19? No / Unsure 10/28/2019 5:41 PM EDT documented as of this encounter Functional Status * Is the person deaf or does he/she have serious difficulty hearing? Answer Date of Assessment Author No 07/03/2019 8:15 AM Maddy Snow ESTEFANY * Is the person blind or does he/she have serious difficulty seeing even when wearing glasses? Answer Date of Assessment Author No 07/03/2019 8:15 AM Maddy SnowESTEFANY * Does this person have serious difficulty [...] TWICE A DAY 54 Tab 1 11/05/2019 01/06/2020 documented in this encounter Miscellaneous Notes * Telephone Encounter - Katie Lutz RMA - 11/05/2019 4:52 PM EDT DENZEL: 07/19/2019 as expected [id number] GUS 3/2 LRF 3/2 documented in this encounter Plan of Treatment Upcoming Encounters Date Type Department Care Team (Late st Contact Info) Description 06/28/2024 9:40 AM EST Clinical Support [place] [address] [place] [phone] 11/19/2024 1:40 PM EDT Office Visit SEP Neurology [facility] [address] [facility] [place] [address] Lyndsay Brewer, DO [address] [place] [address] documented as of this encounter [...] 1 TABLET BY MOUTH TWICE A DAY 08/26/2019 11/05/2019 documented as of this encounter Care Teams Matrix Inspector Relationship Specialty Start Date End Date Michelle Garrido APRN PCP - General Nurse Practitioner 01/09/17 01/14/21 documented as of this encounter
--- OUTSIDE RECORDS SUMMARY | 2024-05-29 15:47 | XMS_ITS | Encounter Summary ---
Author Organization [facility] [place] [address] Care Team Providers Care Electroplating Worker Name Role Phone Michelle Garrido APRN Primary Care Provider Unava ilable Encounter Details Date Type Department Care Team (Latest Contact Info) Description 11/25/2019 Travel Social History Tobacco Use Types Packs/Day [...] EST Clinical Support [facility] [address] [place] [address] 11/19/2024 1:40 PM EDT Office Visit SEP Neurology [facility] [address] [place] [address] Lyndsay Brewer DO [address] [facility] [address] [place] [address] documented as of this encounter [...] on filedocumented in this encounter Care Teams Electroplating Worker Relationship Specialty Start Date End Date Michelle Garrido APRN PCP - General Nurse Practitioner 01/09/17 01/14/21 documented as of this encounter
--- OUTSIDE RECORDS SUMMARY | 2024-05-29 15:47 | XMS_ITS | Encounter Summary ---
Author Organization [place] [address] Care Team Providers Care Investigations Director Name Role Phone Michelle Garrido APRN Primary Care Provider Unava ilable Reason for Visit * Reason Comments Medication Refill Encounter Details Date Type Department Care Team (Late st Contact Info) Description 10/15/2019 Refill [facility]P [place] [address] [place] [address] Michelle Garrido APRN Medication Refill [...] MOUTH EVERY DAY 90 Tab 1 10/15/2019 04/02/2020 documented in this encounter Plan of Treatment Upcoming Encounters Date Type Department Care Team (Late st Contact Info) Description 06/28/2024 9:40 AM EST Clinical Support ANTOLIN [place] [address] [place] [phone] 11/19/2024 1:40 PM EDT Office Visit SEP Neurology [facility] [address] [place] [address] Lyndsay Brewer DO [address] [place] [address] documented as of this encounter Goals [...] te losartan (COZAAR) 50 mg Oral Tablet Take 1 Tab by mouth daily. 07/18/2019 10/15/2019 documented as of this encounter Care Teams Investigations Director Relationship Specialty Start Date End Date Michelle Garrido APRN PCP - General Nurse Practitioner 01/09/17 01/14/21 documented as of this encounter
--- OUTSIDE RECORDS SUMMARY | 2024-05-29 15:47 | XMS_ITS | Encounter Summary ---
Author Organization [place] [address] Care Team Providers Care Superintendent System Operation Name Role Phone Michelle Garrido APRN Primary Care Provider Unava ilable Reason for Visit * Reason Comments Medication Refill Encounter Details Date Type Department Care Team (Late st Contact Info) Description 10/12/2019 Refill [facility] [place] [address] [place] [address] Michelle Garrido APRN Medication Refill [...] MOUTH EVERY DAY 90 Cap 10/14/2019 0 documented in this encounter Plan of Treatment Upcoming Encounters Date Type Department Care Team (Late st Contact Info) Description 06/28/2024 9:40 AM EST Clinical Support ANTOLIN [place] [address] [email or web address] [address] 11/19/2024 1:40 PM EDT Office Visit SEP Neurology [facility] [address] [place] [address] Lyndsay Brewer DO [address] [place] [address] documented as of this encounter [...] TAKE 1 CAPSULE BY MOUTH EVERY DAY 06/24/2019 10/14/2019 documented as of this encounter Care Teams Superintendent System Operation Relationship Specialty Start Date End Date Michelle Garrido APRN PCP - General Nurse Practitioner 01/09/17 01/14/21 documented as of this encounter
--- OUTSIDE RECORDS SUMMARY | 2024-05-29 15:47 | XMS_ITS | Encounter Summary ---
Author Organization [place] [address] Care Team Providers Care Retail Business Manager Name Role Phone Michelle Garrido APRN Primary Care Provider Unava ilable Reason for Visit * Reason Onset Date Comments ED Follow-Up Call 09/05/2019 Encounter Details Date Type Department Care Team (Late st Contact Info) Description 09/05/2019 Patient Outreach [facility] [address] [place] [id number] Milly Hurtado, MEDICAL LAB DIRECTOR Follow-Up Call Social History Tobacco Use Types [...] in this encounter Progress Notes * Milly Parker, RN - 09/05/2019 11:37 AM EDT ED Follow Up Regarding the most recent emergency room visit: Number of ED visits in last year: 2 Medical reason for visit: AISHA (acute kidney injury) (HCC), Dehydration, Gastroenteritis Do you feel the staff kept you informed during your visit?: Yes (Comment: very busy does not remember) Have your symptoms improved since your ED visit?: Yes Were you able to, or did you try to, reach us prior to deciding to go to the ED?: No (Comment: hit too quick and went to ED) Were you aware that we always have a provider boom conveyor operator and offer eVisits?: No (Comment: educated boom conveyor operator MD) Are you aware of the [facility] or [facility]?: Yes Was there anything more that we could have done to facilitate a visit to our provider office if theED visit was not due to an emergency?: No (Comment: happened too fast) Reason you chose to go to ED as site for your medical care?: Severity of Illness Did you get a prescription, or were your medications changed?: Yes Did you get it filled?: Yes If patient is unable to fill medications, please consider a social work consult if criteria met: It is important to us that you understood your discharge instructions from the ED. Do you have any questions?: No Are there additional concerns that we have not discussed that I can help you with?: No Socioeconomic questionnaire completed. No needs identified at this time. documented in this encounter Plan of Treatment Upcoming Encounters Date Type Department Care Team (Late st Contact Info) Description 06/28/2024 9:40 AM EST Clinical Support [facility] [address] [employer] [place] [phone] 11/19/2024 1:40 PM EDT Office Visit SEP Neurology [facility] [address] [place] [phone] Lyndsay Brewer DO [address] [place] [address] documented as of this encounter [...] on filedocumented in this encounter Care Teams Retail Business Manager Relationship Specialty Start Date End Date Michelle Garrido APRN PCP - General Nurse Practitioner 01/09/17 01/14/21 documented as of this encounter
--- OUTSIDE RECORDS SUMMARY | 2024-05-29 15:47 | XMS_ITS | Encounter Summary ---
Author Organization [facility] [place] [place] [address] Care Team Providers Care Barn Operator Name Role Phone Michelle Garrido APRN Primary Care Provider Unava ilable Encounter Details Date Type Department Care Team (Latest Contact Info) Description 08/26/2019 Travel Social History Tobacco Use Types Packs/Day [...] AM EST Clinical Support [facility] [place] [address] [employer] [place] [phone] 11/19/2024 1:40 PM EDT Office Visit SEP Neurology [facility] [address] [place] [address] Lyndsay Brewer DO [address] [place] [address] documented as of this encounter [...] on filedocumented in this encounter Care Teams Barn Operator Relationship Specialty Start Date End Date Michelle Garrido APRN PCP - General Nurse Practitioner 01/09/17 01/14/21 documented as of this encounter
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
--- OUTSIDE RECORDS SUMMARY | 2024-05-29 15:47 | XMS_ITS | Encounter Summary ---
Author Organization [facility] [place] [address] Care Team Providers Care Optical Scientist Name Role Phone Michelle Garrido APRN Primary Care Provider Unava ilable Encounter Details Date Type Department Care Team (Latest Contact Info) Description 10/28/2019 Travel Social History Tobacco Use Types Packs/Day [...] Author No 07/03/2019 8:15 AM EST Maddy Whtie RMA * Does this person have serious [...] EST Clinical Support [facility] [address] [employer] [place] [address] 11/19/2024 1:40 PM EDT Office Visit [facility] Neurology [facility] [address] [place] [address] Lyndsay Brewer DO [address] [facility] [address] [place] [address] documented as of this encounter [...] on filedocumented in this encounter Care Teams Optical Scientist Relationship Specialty Start Date End Date Michelle Garrido APRN PCP - General Nurse Practitioner 01/09/17 01/14/21 documented as of this encounter
--- OUTSIDE RECORDS SUMMARY | 2024-05-29 15:47 | XMS_ITS | Encounter Summary ---
Author Organization [place] [address] Care Team Providers Care Ems Coordinator Name Role Phone Michelle Garrido APRN Primary Care Provider Unava ilable Reason for Visit * Reason Comments Cough Congestion Encounter Details Date Type Department Care Team (Late st Contact Info) Description 08/26/2019 10:00 AM EST Office Visit [facility] [address] [place] [address] Michelle Garrido APRN Viral URI with cough (Primary Dx); Moderate persistent asthma with exacerbation Social History Tobacco Use Types Packs/Day Years [...] Sign Reading Time Taken Comments Blood Pressure 152/84 08/26/2019 10:05 AM EST Pulse 84 08/26/2019 10:05 AM EST Temperature 36.7 ??C (98 ??F) 08/26/2019 10:05 AM EST Respiratory Rate - - Oxygen Saturation 97% 08/26/2019 10:05 AM EST Inhaled Oxygen Concentration - - Weight 92.5 kg (204 lb) 08/26/2019 10:05 AM EST Height 170.2 cm (5' 7 ) 08/26/2019 10:05 AM EST Body Mass Index 31.95 08/26/2019 10:05 AM EST documented in this encounter [...] End Date predniSONE (DELTASONE) 10 mg Oral TabletIndications:V iral URI with cough,Moderate persistent asthma with exacerbation Take 4 tabs once daily for 2 days, then 3 tabs daily x2 days, then 2 tabs daily x2 days and then 1 tab daily x2 days. 20 Tab 08/26/2019 11/25/2019 documented in this encounter Progress Notes * Michelle Garrido, [facility] - 08/26/2019 10:00 AM EST Vitals: 08/26/19 1005 BP: 152/84 Pulse: 84 Temp: 98 ??F (36.7 ??C) TempSrc: Oral SpO2: 97% Weight: 204 lb (92.5 kg) Height: 5' 7 (1.702 m) SUBJECTIVE: Chief Complaint Patient presents with ??? Cough ??? Congestion HPI: URI/Sinus symptoms: ?? complains of congestion, productive cough, generalized sinus pain and nasal discharge for 1 days. ?? Associated symptoms include shortness of breath, wheezing and sputum production. ?? Symptom severity is described as Moderate and are worsening. ?? What treatments have you tried at home? Normal med, afrin ?? Are home treatments impacting your symptoms at all? no ?? Do you get recurrent or seasonal symptoms multiple times per year? yes ?? Do you have any history of lung disease, asthma, or recurrent allergies? yes asthma ?? The Patient does not smoke cigarettes. Several family members with similar symptoms. No fever. + SOA and wheezing. Used albuterol nebulizer twice last night. Review of Systems Constitutional: Negative for fever. HENT: Positive for congestion, postnasal drip, rhinorrhea, sinus pressure and sinus pain. Negative for ear pain and sore throat. Respiratory: Positive for cough, shortness of breath and wheezing. Neurological: Negative for dizziness and headaches. OBJECTIVE: Physical Exam Constitutional: Appearance: He is well-developed. HENT: Head: Normocephalic. Right Ear: Tympanic membrane and external ear normal. Left Ear: Tympanic membrane and external ear normal. Nose: Nose normal. Right Sinus: No maxillary sinus tenderness or frontal sinus tenderness. Left Sinus: No maxillary sinus tenderness or frontal sinus tenderness. Mouth/Throat: Pharynx: No oropharyngeal exudate or posterior oropharyngeal erythema. Eyes: Conjunctiva/sclera: Conjunctivae normal. Pupils: Pupils are equal, round, and reactive to light. Neck: Musculoskeletal: Neck supple. Cardiovascular: Rate and Rhythm: Normal rate and regular rhythm. Heart sounds: Normal heart sounds. No murmur. Pulmonary: Effort: Pulmonary effort is normal. No respiratory distress. Breath sounds: Wheezing ( mild, diffuse) present. No rales. Lymphadenopathy: Cervical: No cervical adenopathy. Skin: General: Skin is warm and dry. Assessment Diagnoses and all orders for this visit: Viral URI with cough - predniSONE (DELTASONE) 10 mg Oral Tablet; Take 4 tabs once daily for 2 days, then 3 tabs daily x2days, then 2 tabs daily x2 days and then 1 tab daily x2 days. Dispense: 20 Tab; Refill: 0 Moderate persistent asthma with exacerbation - predniSONE (DELTASONE) 10 mg Oral Tablet; Take 4 tabs once daily for 2 days, then 3 tabs daily x2days, then 2 tabs daily x2 days and then 1 tab daily x2 days. Dispense: 20 Tab; Refill: 0 documented in this encounter Miscellaneous Notes * Patient Instructions - Michelle Garrido APRN - 08/26/2019 10:00 AM EST Images from the original note were not included. Patient Education Viral Respiratory Infection A respiratory infection is an illness that affects part of the respiratory system, such as the lungs, nose, or throat. A respiratory infection that is caused by a virus is called a viral respiratory infection. Common types of viral respiratory infections include: ?? A cold. ?? The flu (influenza). ?? A respiratory syncytial virus (RSV) infection. What are the causes? This condition is caused by a virus. What are the signs or symptoms? Symptoms of this condition include: ?? A stuffy or runny nose. ?? Yellow or green nasal discharge. ?? A cough. ?? Sneezing. ?? Fatigue. ?? Achy muscles. ?? A sore throat. ?? Sweating or chills. ?? A fever. ?? A headache. How is this diagnosed? This condition may be diagnosed based on: ?? Your symptoms. ?? A physical exam. ?? Testing of nasal swabs. How is this treated? This condition may be treated with medicines, such as: ?? Antiviral medicine. This may shorten the length of time a person has symptoms. ?? Expectorants. These make it easier to cough up mucus. ?? Decongestant nasal sprays. ?? Acetaminophen or NSAIDs to relieve fever and pain. Antibiotic medicines are not prescribed for viral infections. This is because antibiotics are designed to kill bacteria. They are not effective against viruses. Follow these instructions at home: Managing pain and congestion ?? Take [id number] and prescription medicines only as told by your health care provider. ?? If you have a sore throat, gargle with a salt-water mixture 3-4 times a day or as needed. To make a salt-water mixture, completely dissolve ??-1 tsp of salt in 1 cup of warm water. ?? Use nose drops made from salt water to ease congestion and soften raw skin around your nose. ?? Drink enough fluid to keep your urine pale yellow. This helps prevent dehydration and helps loosen up mucus. General instructions ?? Rest as much as possible. ?? Do not drink alcohol. ?? Do not use any products that contain nicotine or tobacco, such as cigarettes and e-cigarettes. If you need help quitting, ask your health care provider. ?? Keep all follow-up visits as told by your health care provider. This is important. How is this prevented? ?? Get an annual flu shot. You may get the flu shot in late summer, fall, or winter. Ask your health care provider when you should get your flu shot. ?? Avoid exposing others to your respiratory infection. ? Stay home from work or school as told by your health care provider. ? Wash your hands with soap and water often, especially after you cough or sneeze. If soap and water are not available, use alcohol-based hand installer molding and trim. ?? Avoid contact with people who are sick during cold and flu season. This is generally fall and winter. Contact a health care provider if: ?? Your symptoms last for 10 days or longer. ?? Your symptoms get worse over time. ?? You have a fever. ?? You have severe sinus pain in your face or forehead. ?? The glands in your jaw or neck become very swollen. Get help right away if you: ?? Feel pain or pressure in your chest. ?? Have shortness of breath. ?? Faint or feel like you will faint. ?? Have severe and persistent vomiting. ?? Feel confused or disoriented. Summary ?? A respiratory infection is an illness that affects part of the respiratory system, such as the lungs, nose, or throat. A respiratory infection that is caused by a virus is called a viral respiratory infection. ?? Common types of viral respiratory infections are a cold, influenza, and respiratory syncytial virus (RSV) infection. ?? Symptoms of this condition include a stuffy or runny nose, cough, sneezing, fatigue, achy muscles, sore throat, and fevers or chills. ?? Antibiotic medicines are not prescribed for viral infections. This is because antibiotics are designed to kill bacteria. They are not effective against viruses. This information is not intended to replace advice given to you by your health care provider. Make sure you discuss any questions you have with your health care provider. Document Released: 03/22/2006 Document Revised: 06/20/2019 Document Reviewed: 07/23/2018 Elsevier Interactive Patient Education ?? 2019 [employer] documented in this encounter Plan of Treatment Upcoming Encounters Date Type Department Care Team (Late st Contact Info) Description 06/28/2024 9:40 AM EST Clinical Support [facility] [address] [place] [id number] 11/19/2024 1:40 PM EDT Office Visit [facility] [address] [place] [address] Lyndsay Brewer DO [address] [place] [address] documented as of this encounter Goals Goal Patient Goal Type Associated Problems Recent Progress Patient-Stated? Author Blood Pressure < 140/90 Blood Pressure 134/84(2023 1:16 PM EST) No Yana Choi RMA Eat better, exercise, reach an ideal body weight General No Yana Choi, RMA Stay Tobacco Free Lifestyle No Yana Choi RMA documented as of this encounter Visit Diagnoses Diagnosis Viral URI with cough- Primary Acute upper respiratory infections of unspecified site Moderate persistent asthma with exacerbation Unspecified asthma, with exacerbation documented in this encounter Care Teams Ems Coordinator Relationship Specialty Start Date End Date Michelle Garrido APRN PCP - General Nurse Practitioner 01/09/17 01/14/21 documented as of this encounter
--- OUTSIDE RECORDS SUMMARY | 2024-05-29 15:47 | XMS_ITS | Encounter Summary ---
Author Organization [place] [address] Care Team Providers Care Yarn Examiner Skeins Name Role Phone Michelle Garrido APRN Primary Care Provider Unava ilable Reason for Visit * Reason Onset Date Comments Prior Authorization 10/14/2019 tadalafil (C IALIS) 5 mg Oral Tablet Encounter Details Date Type Department Care Team ([facility] Contact Info) Description 10/14/2019 Telephone [facility] [address] [place] [address] Michelle Garrido APRN Prior Authorization (tadalafil (CIALIS) 5 mg Oral Tablet ) Social History Tobacco Use Types Packs/Day [...] 07/03/2019 8:15 AM Maddy Snow, ESTEFANY * Is the person blind or does he/she have serious difficulty seeing even when wearing glasses? Answer Date of Assessment Author No 07/03/2019 8:15 AM AIMEE White Maddy, RMA * Does this person have serious difficulty walking or climbing stairs? Answer Date of Assessment Author No 07/03/2019 8:15 AM AIMEE White Maddy, RMA * Does this person have difficulty dressing or bathing? Answer Date of Assessment Author No 07/03/2019 8:15 AM Maddy Snow, RMA * Because of a physical, mental or emotional condition, does this person have difficulty doing errands alone such as visiting a doctor's office or shopping? Answer Date of Assessment Author No 07/03/2019 8:15 AM Maddy Snow, RMJane documented as of this encounter Mental Status * Because of a physical, mental or emotional condition, does this person have serious difficulty concentrating, remembering or making decisions? Answer Entry Date Author No 07/03/2019 8:15 AM Maddy Snow, ESTEFANY documented in this encounter Miscellaneous Notes * Telephone Encounter - Farzana Garrido MA - 10/14/2019 1:17 PM EDT Pt informed * Telephone Encounter - Farzana Garrido MA - 10/14/2019 11:49 AM EDT Approved 05/16/20-10/13/20 Case #[id number] * Telephone Encounter - Stacy Parkinson - 10/14/2019 8:39 AM EDT Prior Authorization Request Who is requesting the Prior Auth: Patient Medication Name /Dosage/Frequency: tadalafil (CIALIS) 5 mg Oral Tablet 90 Tab 1 07/01/2019 Sig - Route: TAKE 1 TAB BY MOUTH NEEDED. FOR ERECTILE DYSFUNCTION - Oral Sent to pharmacy as: tadalafil 5 mg tablet (CIALIS) Cosign for Ordering: Accepted by Michelle Garrido APRN on 07/02/2019 ??1:21 PM E-Prescribing Status: Receipt confirmed by pharmacy (07/01/2019 ??7:59 AM EST) Did the pharmacy suggest an alternate medication: No Pharmacy Name & Location: [id number] [place] [address] [address] [facility] [phone] Is the patient???s insurance plan that is on file up to date: Yes Informed patient that prior authorizations can take up to 10 business days for response: yes Additional Information: documented in this encounter Plan of Treatment Upcoming Encounters Date Type Department Care Team (Late st Contact Info) Description 06/28/2024 9:40 AM EST Clinical Support [facility] [address] [place] [address] 11/19/2024 1:40 PM EDT Office Visit [facility] Neurology [facility] [address] [place] [address] Lyndsay Brewer DO [address] [facility] [address] [place] [address] documented as of this encounter [...] on filedocumented in this encounter Care Teams Yarn Examiner Skeins Relationship Specialty Start Date End Date Michelle Garrido APRN PCP - General Nurse Practitioner 01/09/17 01/14/21 documented as of this encounter
--- OUTSIDE RECORDS SUMMARY | 2024-05-29 15:47 | XMS_ITS | Encounter Summary ---
Author Organization [place] [address] Care Team Providers Care Telegraph Repeater Mechanic Name Role Phone Michelle Garrido APRN Primary Care Provider Unava ilable Reason for Referral * MRI/CAT Scan (Routine) - Closed Specialty Diagnoses / Procedures Referred By Contac t Referred To Contact Radiology Diagnoses Right shoulder pain, unspecified chronicity Procedures MRI SHOULDER RIGHT WO CONTRAST Kenny Loja MD Phone: tel: Referral ID Status Reason Start Date Expiration Date Visits Re quested Visits Authorized [id number] Closed 10/24/2019 10/23/2020 1 1 Reason for Visit * MRI/CAT Scan (Routine) - Closed Specialty Diagnoses / Procedures Referred By Contac t Referred To Contact Radiology Diagnoses Right shoulder pain, unspecified chronicity Procedures MRI SHOULDER RIGHT WO CONTRAST Kenny Loja MD Phone: tel: Referral ID Status Reason Start Date Expiration Date Visits Re quested Visits Authorized [id number] Closed 10/24/2019 10/23/2020 1 1 Encounter Details Date Type Department Care Team (Late st Contact Info) Description 10/28/2019 5:41 PM EDT - 10/28/2019 11:59 PM EDT Hospital Encounter [facility] [address] [place] [address] Kenny Loja MD [address] [facility] [address] [facility] [place] [address] Right shoulder pain, unspecified chronicity Discharge Disposition: Home or [...] Maddy White RMA documented in this encounter Medications at Time of Discharge Nebulizer Accessories (ALL FLOW 4000 KIT) [facility] Formulary equivalent 1 Each 0 06/27/2012 ADVAIR [...] 08/26/2019 0 documented as of this encounter Discharge Disposition Disposition Code Departure Means Destination Home or Self Care documented in this encounter Plan of Treatment Upcoming Encounters Date Type Department Care Team (Late st Contact Info) Description 06/28/2024 9:40 AM EST Clinical Support [facility] [address] [place], [place] [address] 11/19/2024 1:40 PM EDT [facility] [address] [place] [address] Lyndsay Brewer, DO [address] [place] [address] documented as of this encounter Goals [...] Procedure Name Priority Date/Time Associated Diagnosis Comments MRI SHOULDER RIGHT WO CONTRAST Routine 10/28/2019 6:28 PM EDT Right shoulder pain, unspecified chronicity documented in this encounter Results * MRI SHOULDER RIGHT WO CONTRAST (10/28/2019 6:28 PM EDT) Anatomical Region Laterality Modality Shoulder Magnetic Resonan ce 10/28/2019 6:28 PM EDT Impressions 10/29/2019 7:48 AM EDT 1. Anterior shoulder findings include: In the context of this rotator cuff tendinosis, there is high-grade tearing of the anterior/mid supraspinatus tendon in a region measuring approximately 1.3 cm AP. High-grade subscapularis tendon tearing at the upper border, with medial perching/subluxation of the severely tendinopathic and split long bicipital tendon compatible biceps marisol dysfunction. 2. Moderate infraspinatus tendinosis without high-grade or retracted tear. 3. Rotator cuff outlet/impingement findings include advanced acromioclavicular degenerative changes with undersurface hypertrophy and acromial downsloping. There is moderate subacromial/subdeltoid bursitis. 4. Glenohumeral degenerative changes include labral tearing and posterosuperior glenoid chondral loss. In absence of injection, mild axillary recess synovitis is suspected. - Narrative 10/29/2019 7:48 AM EDT MRI SHOULDER RIGHT WO CONTRAST, ??10/28/2019. CLINICAL HISTORY: ??M25.511-Pain in right [id number] COMPARISON: None. TECHNIQUE: Multiplanar, multisequence MR images of the right shoulder were obtained without the use of contrast. FINDINGS: ROTATOR CUFF & LONG BICIPITAL TENDON: The anterior to mid supraspinatus tendon is attenuated in the critical zone region. High-grade tearing is present, with delamination of tissue towards the cable/humeral head apex. This area measures approximately 1.3 cm AP. Supraspinatus tendon tissue friability is present without well-defined, retracted tear bulk. Moderate infraspinatus tendinosis is present, without discrete retracted tear. The teres minor tendon is intact. Subscapularis tendinosis is present, with partial tearing of the articular margin tissue/leading edge. High-grade partial tearing is noted superiorly. The long bicipital tendon is abnormal. There is splitting of the tendon both outside and within the joint with tendinopathic changes. The tendon is perched/medially subluxed on the lip of the intraventricular groove. OSSEOUS STRUCTURES & ARTICULATIONS: The glenohumeral joint is congruent and there is no fracture. There is no characteristic glenohumeral impaction injury pattern or marrow infiltration. Degenerative enthesopathic changes are noted greater tuberosity. Generalized glenohumeral chondral thinning is present. More pronounced chondral attenuation is noted in the posterior superior glenoid rim. Superior/posterosuperior labral tearing is present. Axillary recess synovitis is suspected and could present with adhesive capsulitis type symptoms. The acromioclavicular joint is congruent. There is no os acromiale. Advanced acromioclavicular degenerative changes are present with subchondral cystic change in the distal clavicle. Hypertrophic changes of the AC joint narrowing the rotator cuff outlet space and the acromion is downsloping laterally. There is moderate subacromial/subdeltoid bursitis. Procedure Note Vincenzo Garcia MD - 10/29/2019 MRI SHOULDER RIGHT WO CONTRAST, 10/28/2019. CLINICAL HISTORY: M25.511-Pain in right [id number] COMPARISON: None. TECHNIQUE: Multiplanar, multisequence MR images of the right shoulderwere obtained without the use of contrast. FINDINGS: ROTATOR CUFF & LONG BICIPITAL TENDON: The anterior to mid supraspinatustendon is attenuated in the critical zone region. High-grade tearing is present,with delamination of tissue towards the cable/humeral head apex. This areameasures approximately 1.3 cm AP. Supraspinatus tendon tissue friability ispresent without well-defined, retracted tear bulk. Moderate infraspinatustendinosis is present, without discrete retracted tear. The teres minor tendon isintact. Subscapularis tendinosis is present, with partial tearing of thearticular margin tissue/leading edge. High-grade partial tearing is notedsuperiorly. The long bicipital tendon is abnormal. There is splitting of the tendon bothoutside and within the joint with tendinopathic changes. The tendon isperched/medially subluxed on the lip of the intraventricular groove. OSSEOUS STRUCTURES & ARTICULATIONS: The glenohumeral joint is congruentand there is no fracture. There is no characteristic glenohumeral impactioninjury pattern or marrow infiltration. Degenerative enthesopathic changes arenoted greater tuberosity. Generalized glenohumeral chondral thinning is present.More pronounced chondral attenuation is noted in the posterior superior glenoidrim. Superior/posterosuperior labral tearing is present. Axillary recesssynovitis is suspected and could present with adhesive capsulitis type symptoms. The acromioclavicular joint is congruent. There is no os acromiale.Advanced acromioclavicular degenerative changes are present with subchondralcystic change in the distal clavicle. Hypertrophic changes of the AC jointnarrowing the rotator cuff outlet space and the acromion is downsloping laterally.There is moderate subacromial/subdeltoid bursitis. IMPRESSION: 1. Anterior shoulder findings include: In the context of this rotator cuff tendinosis, there is high-gradetearing of the anterior/mid supraspinatus tendon in a region measuring approximately1.3 cm AP. High-grade subscapularis tendon tearing at the upper border, with medial perching/subluxation of the severely tendinopathic and split longbicipital tendon compatible biceps marisol dysfunction. 2. Moderate infraspinatus tendinosis without high-grade or retractedtear. 3. Rotator cuff outlet/impingement findings include advancedacromioclavicular degenerative changes with undersurface hypertrophy and acromialdownsloping. There is moderate subacromial/subdeltoid bursitis. 4. Glenohumeral degenerative changes include labral tearing andposterosuperior glenoid chondral loss. In absence of injection, mild axillary recesssynovitis is suspected. - us Kenny Loja MD IMG MRI ORDERABLES Final Result documented in this encounter Visit Diagnoses Diagnosis Right shoulder pain, unspecified chronicity documented in this encounter Care Teams Telegraph Repeater Mechanic Relationship Specialty Start Date End Date Michelle Garrido APRN PCP - General Nurse Practitioner 01/09/17 01/14/21 documented as of this encounter
--- OUTSIDE RECORDS SUMMARY | 2024-05-29 15:47 | XMS_ITS | Encounter Summary ---
Author Organization [place] [address] Care Team Providers Care Primary Clinician Name Role Phone Michelle Garrido APRN Primary [...] biceps tendon, right, initial encounter [S46.111A] Procedures WY REPAIR COMPL ROTATOR CUFF AVULSN,CHR WY SHOULDER SCOPE BONE SHAVING WY SHLDR ARTHROSCOP,PART DEBRIDE WY SHLDR ARTHROSCOP,EXTEN DEBRIDE RIGHT SHOULDER ARTHROSCOPIC ROTATOR CUFF REPAIR DECOMPRESSION ACROMIOPLASTY, ACROMIOCLAVICULAR JOINT EXCISION WITH BICEP TENODESIS Referral ID Status Reason Start Date Expiration Date Visits Re quested Visits Authorized [id number] 1 1 Encounter Details Date Type Department Care Team (Late st Contact Info) Description 11/29/2019 7:15 AM EDT - 11/29/2019 11:38 AM EDT Hospital Encounter [facility] [address] [facility] [address] [place] [id number] Kenny Loja MD [address] [facility] [address] [place] [address] Discharge Disposition: Home or Self Care Social [...] Sign Reading Time Taken Comments Blood Pressure 163/98 11/29/2019 11:14 AM EDT Pulse 88 11/29/2019 11:36 AM EDT Temperature 36.6 ??C (97.8 ??F) 11/29/2019 11:14 AM E DT Respiratory Rate 18 11/29/2019 11:36 AM EDT Oxygen Saturation 95% 11/29/2019 11:36 AM EDT Inhaled Oxygen Concentration - - [...] encounter Discharge Instructions * Discharge Instructions* Arron Ansari DO - 11/29/2019 8:01 AM EDT [facility] Discharge Instructions - Following Anesthesia We appreciate [...] our office at . Get Well Soon! [place] Anesthesiologists documented in this encounter Medications at Time of Discharge Nebulizer Accessories (ALL FLOW 4000 KIT) [facility] Formulary equivalent 1 [...] Code Departure Means Destination Home or Self [facility] documented in this encounter H&P Notes * Rhiannon Mccracken, TEMPORARY STAFF ACCOUNTANT - 11/29/2019 7:47 AM EDT Chief complaint: [...] ; Surgeon: Augie Ramires MD; Location: [facility] MAIN OR; Service: Orthopedics ??? KNEE [...] file Gets together: Not on file Attends buddhist service: Not on file Active member of [...] decompression and acromioplasty of right shoulder, CPT 02064. 2. Type 2 SLAP repair, glenohumeral joint, right shoulder, separate, arthroscopic, CPT 90569-34. 3. Distal clavicle resection with removal of acromioclavicular joint, right upper extremity, separate, CPT 30346-35. SURGEON: Kenny Loja MD. BLOCKLAYER: Vitaliy Weber PA-C. NOTE: assistant professor of spanish was utilized and essential to the procedure with both labral and rotator cuff tear for positioning extremity, retraction, assisting with instrumentation and holding position of extremity so the surgeon had two hands free for placing implants and dissection. assistant professor of spanish was also utilized for incisional closure. CPT 83742. HISTORY: Mr. [place] is a 54-year-old gentleman [...] Kenny Loja M.D. By: Skye Job ID: [id number] Doc ID: [id number] * Kenny Loja MD - 11/29/2019 10:13 AM EDT [facility] OPERATIVE/PROCEDURE NOTE Zuhair [place] Luda November 29, 2019 Body mass index is [...] Role: * Kenny Loja MD - Primary BLOCKLAYER(S): Gus DE LEON ANESTHESIA: General w/Block SPECIMENS: * No specimens in log * ESTIMATED BLOOD LOSS (mls): 5ml DISPOSITION/POST PROC COURSE: PACU Kenny Loja MD Date: 11/29/2019 documented in this encounter Nursing Notes * Love Bisohp RN - 11/25/2019 11:40 AM EDT Images [...] ??? Review instructions provided by your surgeon. Visual Merchandise Manager ??? On the day of surgery, it is important to have a Visual Merchandise Manager, someone who is 18 years or older, [...] or near the operative extremity. ??? Nail occitan must be removed from operative extremity. Personal [...] a Living Will and Durable Power of Product Test Engineer for Healthcare, please bring a copy. ??? [...] while you are here. [facility] [place] at [phone] - [address] [facility], [place], [facility] documented in this encounter Plan of Treatment Upcoming Encounters Date Type Department Care Team (Late st Contact Info) Description 06/28/2024 9:40 AM EST Clinical Support [facility] [address] [place] [phone] 11/19/2024 1:40 PM EDT Office Visit [facility]P Neurology [facility] [address] [facility] [place] [place] [address] Lyndsay Brewer, DO [address] [place] [address] documented as of this encounter [...] Special Needs INDWELLING NERVE BLOCK, GENERAL SCALENE US ANES GUIDANCE FOR NERVE BLOCK STAT 11/29/2019 8:03 AM EDT documented in this encounter Results * SCANNED RHYTHM STRIPS (12/02/2019 4:21 PM EDT) Anatomical Region Laterality Modality Other 12/02/2019 4:21 PM EDT us Unknown Unknown IMG ECG ORDERABLES Final Result * US ANES GUIDANCE FOR NERVE BLOCK (11/29/2019 8:03 AM EDT) Narrative Shanice Chavez - 11/29/2019 8:03 AM EDT Ultrasound guided [...] Given 11/29/2019 7:51 AM EDT 1,000 mg lactated ringers infusion Intravenous, at 50 mL/hr, CONTINUOUS, Starting on Maritza 11/28/19 at 0945, Until Mon11/29/19 at 1544, To be given in SDS/Pre-op Holding Area, Pre-op (Holding/SDS Meds) New Bag 11/29/2019 8:07 AM EDT 50 mL/hr ondansetron (ZOFRAN) injection 4 mg 4 mg, Intravenous, PRN, 1 dose, Starting on 11/29/19 at 1020, Until 11/29/19 at 1544, Nausea, PACU ondansetron (ZOFRAN-ODT) disintegrating tablet 8 mg 8 mg, Oral, PRN, 1 dose, Starting on 11/29/19 at 1020, Until 11/29/19 at 1544, Nausea, Dissolve in mouth, PACU promethazine (PHENERGAN) 12.5 mg in sodium chloride 10 mL injection 12.5 mg, Intravenous, PRN, 2 doses, Starting on 11/29/19 at 1020, Until 11/29/19 at 1544, Nausea, For persistent nausea unrelieved [...] (DRAMAMINE) i njection 12.5-25 mg 1 11/29/2019 EPINEPHrine 3 mL (3 mg) in NS 3000 mL 10/2019 fentaNYL (SUBLIMAZE) injection 25 mcg 10/2019 HYDROmorphone (DILAUDID) injection 0.25 mg 1 [...] 11/29/2019 documented in this encounter Care Teams Primary Clinician Relationship Specialty Start Date End Date Michelle Garrido, TEMPORARY STAFF ACCOUNTANT PCP - General Nurse Practitioner 01/09/17 01/14/21 documented as of this encounter
--- OUTSIDE RECORDS SUMMARY | 2024-05-29 15:47 | XMS_ITS | Encounter Summary ---
Author Organization [place] [address] Care Team Providers Care Crayon Painter Name Role Phone Michelle Garrido APRN Primary Care Provider Unava ilable Reason for Visit * Reason Comments Illness States that hes had a cough/URI infection for the past couple weeks- today started with N/V/D Encounter Details Date Type Department Care Team (Late Contact Info) Description 09/04/2019 2:49 AM EDT - 09/04/2019 5:23 AM EDT Emergency [address] [address] Shaheed Carver MD [address] [place] [phone] AISHA (acute kidney injury) (HCC) (Primary Dx); Dehydration; Gastroenteritis Discharge Disposition: Home or Self Care Social [...] Sign Reading Time Taken Comments Blood Pressure 124/74 09/04/2019 5:22 AM EDT Pulse 75 09/04/2019 5:22 AM EDT Temperature 36.8 ??C (98.2 ??F) 09/04/2019 1:10 AM ED T Respiratory Rate 18 09/04/2019 5:22 AM EDT Oxygen Saturation 100% 09/04/2019 5:22 AM EDT Inhaled Oxygen Concentration - - Weight 92.5 kg (204 lb) 09/04/2019 1:10 AM EDT Height 170.2 cm (5' 7 ) 09/04/2019 1:10 AM EDT Body Mass Index 31.95 09/04/2019 1:10 AM EDT documented in this encounter Functional [...] this encounter Discharge Instructions * Discharge Instructions* Shaheed Carver MD - 09/04/2019 4:18 AM EDT Clear liquids, advance as tolerated, return if worse documented in this encounter Medications at Time of Discharge Nebulizer Accessories (ALL FLOW 4000 KIT) [facility] Formulary equivalent 1 Each 0 [...] Refills Last Filled Start Date End Date ondansetron (ZOFRAN-ODT) 4 mg Oral Tablet, Rapid Dissolve Take 1 Tab by mouth every 6 hours as needed for Nausea for up to 30 days. 10 Tab 09/04/2019 10/04/2019 documented in this encounter Discharge Disposition Disposition Code Departure Means Destination Home or Self Intermediate documented in this encounter ED Notes * Shaheed Carver MD - 09/04/2019 1:01 AM EDT Chief Complaint Patient presents with ??? Illness States that hes had a cough/URI infection for the past couple weeks- today started with N/V/D 53-year-old male presents per department complaining of cough, congestion up wrist or infection symptoms for the past couple weeks. Today developed some nausea vomiting or diarrhea. Denies focal abdominal pain. He is afebrile at home. He denies productive cough or shortness of breath. He is ambulatory to the ER for evaluation Patient History Allergies Allergen Reactions ??? Abilify [Aripiprazole] Other (See Comments) convulsions ??? Unable To Assess Patient does not take any narcotic medications Home Medications: Prior to Admission medications Medication Sig Start Date End Date Taking? Authorizing Provider acetaminophen (TYLENOL) 500 mg Oral Tablet Take 500 mg by mouth every 4 hours as needed for Pain. Provider, Historical ADVAIR DISKUS 500-50 mcg/dose Inhl Disk with [...] DO Nebulizer Accessories (ALL FLOW 4000 KIT) [facility] Formulary equivalent 06/27/12 Carola Arcos MD Nebulizers (SANG BABY NEBULIZER) [facility] Formulary equivalent 06/27/12 Carola Arcos MD ondansetron [...] REVISION-ANTERIOR ; Surgeon: Augie Ramires MD; Location: [facility] MAIN OR; Service: Orthopedics ??? JOINT REPLACEMENT left hip ??? KNEE SURGERY both ??? TOTAL HIP ARTHROPLASTY Left 2009 Review of Systems Review of Systems All other systems reviewed and are negative. Physical Exam Blood pressure 124/74, pulse 75, temperature 98.2 ??F (36.8 ??C), resp. rate 18, height 5' 7 (1.702 m), weight 204 lb (92.5 kg), SpO2 100 %. Physical Exam Constitutional: He is oriented to person, place, and time. He appears well- developed and well-nourished. No distress. HENT: Mouth/Throat: Oropharynx is clear and moist. Eyes: Pupils are equal, round, and reactive to light. Conjunctivae and EOM are normal. Neck: Normal range of motion. Neck supple. Cardiovascular: Normal rate and regular rhythm. Exam reveals no gallop and no friction rub. No murmur heard. Pulmonary/Chest: Effort normal and breath sounds normal. Abdominal: Soft. Bowel sounds are normal. He exhibits no distension. There is no abdominal tenderness. Musculoskeletal: General: No edema. Lymphadenopathy: He has no cervical adenopathy. Neurological: He is alert and oriented to person, place, and time. Skin: Skin is warm and dry. No rash noted. Psychiatric: He has a normal mood and affect. Nursing note and vitals reviewed. Procedures Radiology/EKG/Labs: Results for orders placed or performed during the hospital encounter of 09/04/19 CBC WITH DIFF Result Value Ref Range WBC 12.6 (H) 4.0 - 11.0 x10(3)/mcL RBC 5.30 4.30 - 5.81 x10(6)/mcL Hgb 17.2 (H) 13.5 - 17.1 g/dL Hct 50.8 38.9 - 51.6 % MCV 95.8 82.5 - 99.8 fL MCH 32.5 27.0 - 34.3 pg MCHC 33.9 32.1 - 35.3 g/dL RDW 12.8 11.5 - 15.0 % Platelet 210 144 - 423 x10(3)/mcL MPV 8.6 6.8 - 10.8 fL Neut Percent 91.4 % Lymph Percent 1.7 % [place] Percent 6.5 % Eos Percent 0.2 % Baso Percent 0.2 % Neut # 11.5 (H) 1.8 - 7.7 x10(3)/mcL Lymph # 0.2 (L) 0.6 - 4.8 x10(3)/mcL [place] # 0.8 0.0 - 1.3 x10(3)/mcL Eos# 0.0 0.0 - 0.5 x10(3)/mcL Baso # 0.0 0.0 - 0.2 x10(3)/mcL BASIC METABOLIC PANEL Result Value Ref Range Sodium 138 136 - 145 mmol/L Potassium 4.3 3.5 - 5.0 mmol/L Chloride 100 98 - 107 mmol/L Total CO2 19 (L) 22 - 29 mmol/L Anion Gap 19 (H) 7 - 16 mmol/L Calcium 9.7 8.6 - 10.4 mg/dL Glucose Lvl 176 (H) 74 - 100 mg/dL BUN 39 (H) 6 - 20 mg/dL Creatinine 1.84 (H) 0.67 - 1.30 mg/dL GFR Afr Am 48 (L) >=60 mL/min/1.73 m2 GFR Non Afr Am 42 (L) >=60 mL/min/1.73 m2 ED Course: Appropriate laboratory and radiology studies reviewed Patient is seen, treated with IV fluids, total 2 L. He is given IV Zofran and Levsin. Overall appears well with benign abdominal exam and nontoxic in appearance. [place] better after hydration with no further vomiting here. Is discharged home. ED Clinical Impression: 1. AISHA (acute kidney injury) (HCC) 2. Dehydration 3. Gastroenteritis Condition at Discharge/Transfer from Department: Stable This chart was completed using voice recognition technology and may contain unintended errors Shaheed Carver MD 09/11/19 [id number] documented in this encounter Plan of Treatment Upcoming Encounters Date Type Department Care Team (Late st Contact Info) Description 06/28/2024 9:40 AM EST Clinical Support [facility] [address] [place] [phone] 11/19/2024 1:40 PM EDT Office Visit SEP Neurology [facility] [address] [place] [phone] Lyndsay Brewer DO [address] [place] [address] documented as of this encounter Goals Goal [...] Date/Time Associated Diagnosis Comments CBC WITH DIFF STAT 09/04/2019 3:14 AM EDT BASIC METABOLIC PANEL STAT 09/04/2019 3:14 AM EDT documented in this encounter Results * (ABNORMAL) BASIC METABOLIC PANEL (09/04/2019 3:14 AM EDT) Sodium 138 136 - 145 mmol/L 09/04/2019 3:35 AM EDT [facility] Potassium 4.3 3.5 - 5.0 mmol/L 09/04/2019 3:35 AM EDT [facility] Chloride 100 98 - 107 mmol/L 09/04/2019 3:35 AM EDT [facility] Total CO2 19(L) 22 - 29 mmol/L 09/04/2019 3:35 AM T [facility] Anion Gap 19(H) 7 - 16 mmol/L 09/04/2019 3:35 AM EDT [facility] Calcium 9.7 8.6 - 10.4 mg/dL 09/04/2019 3:35 AM T [facility] Glucose Lvl 176(H) 74 - 100 mg/dL 09/04/2019 3:35 AM EDT [facility] BUN 39(H) 6 - 20 mg/dL 09/04/2019 3:35 AM T [facility] Creatinine 1.84(H) 0.67 - 1.30 mg/dL 09/04/2019 3:35 AM EDT [facility] GFR Afr Am 48(L) >=60 mL/min/1.7 3 m2 09/04/2019 3:35 AM EDT [facility] GFR Non Afr Am 42(L) >=60 mL/min/1.7 3 m2 09/04/2019 3:35 AM EDT [facility] Comment: This estimated GFR was calculated [...] VENOUS BLOOD / Unknown Venipuncture / Unknown 09/04/2019 3:14 AM EDT 09/04/2019 3:16 AM EDT Shaheed Carver MD CHEMISTRY ORDERABLES Karina castillo Result [facility] [address] [place] [address] * (ABNORMAL) CBC WITH DIFF (09/04/2019 3:14 AM EDT) WBC 12.6(H) 4.0 - 11.0 x10(3)/mcL 09/04/2019 3:29 AM EDT [facility] RBC 5.30 4.30 - 5.81 x10(6)/mcL 09/04/2019 3:29 AM EDT [facility] Hgb 17.2(H) 13.5 - 17.1 g/dL 09/04/2019 3:29 AM EDT [facility] Hct 50.8 38.9 - 51.6 % 09/04/2019 3:29 AM EDT [facility] MCV 95.8 82.5 - 99.8 fL 09/04/2019 3:29 AM EDT [facility] MCH 32.5 27.0 - 34.3 pg 09/04/2019 3:29 AM EDT [facility] MCHC 33.9 32.1 - 35.3 g/dL 09/04/2019 3:29 AM EDT [facility] RDW 12.8 11.5 - 15.0 % 09/04/2019 3:29 AM EDT [facility] Platelet 210 144 - 423 x10(3)/mcL 09/04/2019 3:29 AM EDT [facility] MPV 8.6 6.8 - 10.8 fL 09/04/2019 3:29 AM EDT [facility] Neut Percent 91.4 % 09/04/2019 3:29 AM EDT [facility] Lymph Percent 1.7 % 09/04/2019 3:29 AM EDT [facility] Huntington Percent 6.5 % 09/04/2019 3:29 AM EDT [facility] Eos Percent 0.2 % 09/04/2019 3:29 AM EDT [facility] Baso Percent 0.2 % 09/04/2019 3:29 AM EDT [facility] Neut # 11.5(H) 1.8 - 7.7 x10(3)/mcL 09/04/2019 3:29 AM EDT [facility] Lymph # 0.2(L) 0.6 - 4.8 x10(3)/mcL 09/04/2019 3:29 AM EDT [facility] Huntington # 0.8 0.0 - 1.3 x10(3)/mcL 09/04/2019 3:29 AM EDT [facility] Eos# 0.0 0.0 - 0.5 x10(3)/mcL 09/04/2019 3:29 AM EDT [facility] Baso # 0.0 0.0 - 0.2 x10(3)/mcL 09/04/2019 3:29 AM EDT [facility] Blood VENOUS BLOOD / Unknown Venipuncture / Unknown 09/04/2019 3:14 AM EDT 09/04/2019 3:16 AM EDT Shaheed Carver MD HEMATOLOGY ORDERABLES Fin al Result [facility] [address] [facility] [place] [address] documented in this encounter Visit Diagnoses Diagnosis AISHA (acute kidney injury) (HCC)- Primary Acute kidney failure, unspecified Dehydration Gastroenteritis Other and unspecified noninfectious gastroenteritis and colitis documented in this encounter Administered Medications Inactive Administered Medications - up to 1 most recent administrations Medication Order MAR Action Action Date Dose Rate Site hyoscyamine (LEVSIN) injection 0.25 mg 0.25 mg, Intravenous, ONCE, 1 dose, On Mon09/04/19 at 0315 Given 09/04/2019 3:10 AM EDT 0.25 mg ondansetron (ZOFRAN) injection 4 mg 4 mg, Intravenous, ONCE, 1 dose, On Mon09/04/19 at 0315 Given 09/04/2019 3:10 AM EDT 4 mg sodium chloride 0.9 % 1,000 mL IV bolus Intravenous, ONCE, 1 dose, On Mon09/04/19 at 0315, at 983.6 mL/hr IV Started 09/04/2019 3:13 AM EDT 983.6 mL/hr sodium chloride 0.9 % 1,000 mL IV bolus Intravenous, ONCE, 1 dose, On Mon09/04/19 at 0345, at 983.6 mL/hr IV Started 09/04/2019 4:00 AM EDT 983.6 mL/hr documented in this encounter Active and Recently Administered Medications Times are shown in EDT. Scheduled Medication Order 09/02/2019 09/03/2019 09/04/2019 hyoscyamine (LEVSIN) injection 0.25 mg (COMPLETED) 0.25 mg, Intravenous, ONCE, 1 dose, On Mon09/04/19 at 0315 0310 (Given - Provid er: Keila Brown RN) ondansetron (ZOFRAN) injection 4 mg (COMPLETED) 4 mg, Intravenous, ONCE, 1 dose, On Mon09/04/19 at 0315 0310 (Given - Provid er: Keila Brown RN) sodium chloride 0.9 % 1,000 mL IV bolus (COMPLETED) Intravenous, ONCE, 1 dose, On Mon09/04/19 at 0315, at 983.6 mL/hr 0313 (IV Started - P rovider: Keila Brown RN)[id number] (Stopped - Provider: Keila Brown RN) sodium chloride 0.9 % 1,000 mL IV bolus (COMPLETED) Intravenous, ONCE, 1 dose, On Mon09/04/19 at 0345, at 983.6 mL/hr 0400 (IV Started - P rovider: Keila Brown RN)[id number] (Stopped - Provider: Keila Brown RN) documented in this encounter Care Teams Crayon Painter Relationship Specialty Start Date End Date Michelle Garrido APRN PCP - General Nurse Practitioner 01/09/17 01/14/21 documented as of this encounter
--- OUTSIDE RECORDS SUMMARY | 2024-05-29 15:47 | XMS_ITS | Encounter Summary ---
Author Organization [place] [address] Care Team Providers Care Plc Controls Engineer Name Role Phone Michelle Garrido APRN Primary Care Provider Unava ilable Reason for Visit * Reason Comments Medication Refill Encounter Details Date Type Department Care Team (Late st Contact Info) Description 10/31/2019 Refill [facility] [address] [place] [phone] Michelle Garrido APRN Medication Refill [...] 07/03/2019 8:15 AM Maddy nSow RMA * Is the person blind or [...] A DAY 180 Cap 1 10/31/2019 0 documented in this encounter Plan of Treatment Upcoming Encounters Date Type Department Care Team (Late st Contact Info) Description 06/28/2024 9:40 AM EST Clinical Support [facility] [place] [address] [employer] [place] [phone] 11/19/2024 1:40 PM EDT Office Visit SEP Neurology [facility] [address] [place] [phone] Lyndsay Brewer DO [address] [place] [address] documented as of this encounter Goals [...] 1 Cap by mouth 2 times daily. 05/08/2019 10/31/2019 documented as of this encounter Care Teams Plc Controls Engineer Relationship Specialty Start Date End Date Michelle Garrido APRN PCP - General Nurse Practitioner 01/09/17 01/14/21 documented as of this encounter
--- OUTSIDE RECORDS SUMMARY | 2024-05-29 15:47 | XMS_ITS | Encounter Summary ---
Author Organization [place] [address] Care Team Providers Care Study Coordinator Name Role Phone Michelle Garrido APRN [...] biceps tendon, right, initial encounter [S46.111A] Procedures AK REPAIR COMPL ROTATOR CUFF AVULSN,CHR AK SHOULDER SCOPE BONE SHAVING AK SHLDR ARTHROSCOP,PART DEBRIDE AK SHLDR ARTHROSCOP,EXTEN DEBRIDE RIGHT SHOULDER ARTHROSCOPIC ROTATOR CUFF REPAIR DECOMPRESSION ACROMIOPLASTY, ACROMIOCLAVICULAR JOINT EXCISION WITH BICEP TENODESIS Referral ID Status Reason Start Date Expiration Date Visits Re quested Visits Authorized [id number] 1 1 Encounter Details Date Type Department Care Team (Late st Contact Info) Description 11/29/2019 8:46 AM EDT Anesthesia Event EDG [address] [place] [address] Arron Ansari DO 1 [facility] [address] [place] [address] Bubba Go MD [address] [place] [address] [facility] [place] [address] Anesthesia Record Procedure Summary Procedure Name Responsible Anesthesiologist Anesthesia Start Time Anesthesia Stop Time SHOULDER ARTHROSCOPY ROTATOR CUFF REPAIR/SUBACROMIAL DECOMPRESSION/NENO /BICEP TENODESIS (Right) Arron Ansari, DO 11/29/19 0846 11/29/19 1023 Events Date Time Event Comment 11/29/2019 0801 0846 An Start 0846 An Start Data 0852 Immediate Pre Anesthetic Ass es 0853 An Induction 0857 An Intubation 0857 Anesthesia Ready 0919 Time out 0920 Incision 1015 An Extubation 1015 Quick Note Awake. Suctione d, extubated, to pacu with o2 per n/c , surgical mask 1019 an stop data 1023 Handoff I completed my SBAR handoff to [...] of understanding from the receiving PACU/ICU steam room attendant 1023 An Stop Meds Name Total midazolam (VERSED) injection 1 mg/mL 2 m g lidocaine injection 1% 75 mg propofol (DIPRIVAN) injection 220 mg rocuronium 10 mg/mL injection 6 mg succinylcholine (ANECTINE) 20 mg/mL inje ction 120 mg dexamethasone (DECADRON) injection 4 mg/ mL 4 mg ondansetron (ZOFRAN) injection 4 mg /2 m L 4 mg bupivacaine 0.5%-EPINEPHrine 1:200,000 ( PF) injection 30 mL ceFAZolin (ANCEF) IVPB 2 g 2 g albuterol (PROVENTIL HFA;VENTOLIN HFA) i nhaler 2 Puff lactated ringers infusion 350 mL * Agents Name O2 N2O Et Sevoflurane Et Desflurane * Blood No blood administrations on file. Lines, Drains, and Airways Type Details Placement Removal Peripheral IV 11/29/19; 0807; Righ t, Dorsal; Hand; Reba Roman; 2; 11/29/19; 1115; Therapy completed; Catheter intact, Dressing applied, No Complications 11/29/19 0807 by Sarah Leblanc RN 11/29/19 1115 by Lela Quiñonez RN Pain Relief System 11/29/19; 0815 (crea lissa via procedure documentation) 11/29/19 0815 by Arron Ansari, DO 11/29/19 1539 by Discharge Provider, Automatic Pain Relief System 11/29/19; 0815 (crea lissa via procedure documentation); Infublock 11/29/19 0815 by Arron Ansari, DO 11/29/19 1539 by Discharge Provider, Automatic Airway Device: ETT- Cuffed; Size: 7.5 mm; Placement Date: 11/29/19; Placement Time: 08 (created via procedure documentation); Removal Date: 11/29/19; Removal Time: 1015 11/29/19 0857 by Azul Rincon CRNA 11/29/19 1015 by Azul Rincon CRNA Incision/Procedural Site 11/29/19; 0921; Shoulder; Right; 11/29/19; 1539 11/29/19 0921 by Lyndsay Lats RN 11/29/19 1539 by Discharge Provider, Automatic documented in this [...] documented in this encounter Procedure Notes * Azul Rincon CRNA - 11/29/2019 9:10 AM EDTAssociated Order(s): Airway Intraop Airway Placement: Date/Time: 11/29/2019 8:57 AM Induction type: IV and Modified rapid sequence Mask size: Standard adult Pre-Oxygenation: Ramping Mask ventilation: Easy mask ventilation Technique: Video laryngoscope Laryngoscope blade: Finn Blade size: 4 Grade view: I Airway type: ETT- cuffed Topical Anesthetic/Lubricant: LTA 4% Lidocaine Intubation assist devices: Stylet 14fr Airway location: Oral Device size: 7.5mm Secured at: 22 cm Secured by: Tape Measured from: Teeth Placement verified: Auscultation and End tidal CO2 Condition: Unchanged and Atraumatic Insertion attempts: 1 Title: MILKA * Arron Asnari DO - 11/29/2019 8:59 AM EDTAssociated Order(s): Peripheral Block by Anesthesia Peripheral Block by Anesthesia Procedure Date/Time: 11/29/2019 8:15 AM Patient location during procedure: pre-op Reason for block: at surgeon's request and post-op pain management Staff and Pre-procedure checks Anesthesiologist: Arron Ansari DO Other anesthesia staff: Katlyn Isaac RN Performed: anesthesiologist Preanesthetic Checklist: Allergies confirmed, Block plan confirmed, Necessary block equipment present, Supplemental O2 applied, if needed, Anticoagulant confirmed, Block site marked, Patient identified- 2 criteria, Surgical procedure consent verified, Aseptic technique used, Drug/solution labeled, Resuscitaion equipment available, BALDEV recommended monitors applied, IV access functioning and Sedation given, if needed Immediate perianesthetic assessment completed: Yes Patient position: Prep: Chloraprep Monitoring: BP, O2 Sat, EKG and Mental status assessed Peripheral Block Block type: Interscalene Block Laterality: Right Injection technique: catheter Pain pump: Infublock pain pump placed Medication: 30ml, Bupivacaine 0.5% w/ epinephrine Needle Needle type: Tuohy Needle gauge: 18 G Needle length: 2 in (50mm) Assessment Block success: complete Events: Uneventful Heart rate change: no Blood aspirated: no Paresthesia pain: none Resistance on injection: normal Intermittent incremental injection LA at 5ml LA surrounding nerve by ultrasonographc visualization documented in this encounter OR Notes * Anesthesia Post-op Follow-up Note - Edwina Duong APRN - 12/02/2019 10:20 AM EDT Post-op Nerve Block Follow-up POD #3 Block Type:right interscalene with pain pump by Dr Ansari for right shoulder rotator cuff decompression. Unable to reach patient. Left message to return call for questions or concerns about block. * Anesthesia Postprocedure Evaluation - Arron Ansari DO - 11/29/2019 11:27 AM EDT Post-Anesthesia Evaluation Note Patient Name: Zuhair Whitlock Patient Date: November 29, 2019 Post-Anesthesia Evaluation Patient Location: PACU Post op vitals: stable Nausea controlled: yes Level of consciousness: awake, alert and oriented Post anesthesia pain: adequate analgesia Long acting local anesthetic: n/a Airway patency: patent Respiratory status: spontaneous ventilation Cardiovascular status: stable Hydration status: euvolemic Perioperative complications: NONE Vitals: 11/29/19 1114 BP: (!) 163/98 Pulse: 81 Resp: 18 Temp: 36.6 ??C (97.8 ??F) SpO2: 94% * Anesthesia Preprocedure Evaluation - Arron Ansari DO - 11/25/2019 12:56 PM EDT Pre-Anesthesia Evaluation Note Patient Name: Zuhair Whitlock Sex: male Patient : 1965 Age: 54 y.o. Patient Date: November 25, 2019 Procedure(s): RIGHT SHOULDER ARTHROSCOPIC ROTATOR CUFF REPAIR DECOMPRESSION ACROMIOPLASTY, ACROMIOCLAVICULAR JOINT EXCISION WITH BICEP TENODESIS Anesthesia Evaluation Previous anesthesia. 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 Anesthesia Plan ASA 3 Last solid intake: The patient has not eaten within the last 8 hours. Last clear liquid intake: The patient has not had clear liquids within the last 2 hours. Anesthesia Plan: general and regional Induction: intravenous Monitors: STD Informed consent Anesthetic plan and risks discussed with: patient. Chart Reviewed and patient examined documented in this encounter Miscellaneous Notes * Addendum Note - Edwina Duong APRN - 12/02/2019 10:23 AM EDT Addendum created 12/02/19 1023 by Edwina Duong APRN Clinical Note Signed documented in this encounter Plan of Treatment Upcoming Encounters Date Type Department Care Team (Late st Contact Info) Description 06/28/2024 9:40 AM EST Clinical Support [facility] [address] [place] [address] 11/19/2024 1:40 PM EDT Office Visit [facility] Neurology [facility] [address] [place] [address] Lyndsay Brewer DO [address] [place] [address] documented as of this encounter [...] Associated Diagnosis Comments INTRAOP AIRWAY PLACEMENT Routine 11/29/2019 9:10 AM EDT PERIPHERAL BLOCK Routine 11/29/2019 8:59 AM EDT documented in this encounter Results * INTRAOP AIRWAY PLACEMENT (11/29/2019 9:10 AM EDT) Narrative [facility] - 11/29/2019 9:10 AM EDT Azul Rincon CRNA ? 11/29/2019 ??9:11 AM Intraop Airway Placement: Date/Time: 11/29/2019 8:57 AM ??Induction type: ??IV and Modified rapid sequence ??Mask size: ??Standard adult ??Pre-Oxygenation: ??Ramping ??Mask ventilation: ??Easy mask ventilation ??Technique: ??Video laryngoscope ??Laryngoscope blade: ??Finn ??Blade size: ??4 ??Grade view: ??I ??Airway type: ??ETT- cuffed ??Topical Anesthetic/Lubricant: ??LTA 4% Lidocaine ??Intubation assist devices: ??Stylet 14fr ??Airway location: ??Oral ??Device size: ??7.5mm ??Secured at: 22 cm ??Secured by: ??Tape ??Measured from: ??Teeth ??Placement verified: ??Auscultation and End tidal CO2 ??Condition: ??Unchanged and Atraumatic ??Insertion attempts: ??1 ??Title: ??TAVERN OPERATOR us Arron Ansari DO AK ANESTHESIA Final Res ult Performing Organization Address City/State/[facility] Co de Phone Number [facility] [address] [place] [address] * ANE PAIN PUMP PLACEMENT (11/29/2019 8:59 AM EDT) Narrative [facility] - 11/29/2019 8:59 AM EDT Arron Ansari, DO ? 11/29/2019 ??9:00 AM Peripheral Block by Anesthesia Procedure Date/Time: 11/29/2019 8:15 AM Patient location during procedure: pre-op Reason for block: at surgeon's request and post-op pain management Staff and Pre-procedure checks Anesthesiologist: Arron Ansari, Other anesthesia staff: Katlyn Isaac RN Performed: anesthesiologist Preanesthetic Checklist: Allergies confirmed, Block plan confirmed, Necessary block equipment present, Supplemental O2 applied, if needed, Anticoagulant confirmed, Block site marked, Patient identified- 2 criteria, Surgical procedure consent verified, Aseptic technique used, Drug/solution labeled, Resuscitaion equipment available, BALDEV recommended monitors applied, IV access functioning and Sedation given, if needed Immediate perianesthetic assessment completed: Yes Patient position: Prep: Chloraprep Monitoring: BP, O2 Sat, EKG and Mental status assessed Peripheral Block Block type: Interscalene Block Laterality: Right Injection technique: catheter Pain pump: Infublock pain pump placed Medication: 30ml, Bupivacaine 0.5% w/ epinephrine Needle Needle type: Tuohy Needle gauge: 18 G Needle length: 2 in (50mm) Assessment Block success: complete Events: Uneventful Heart rate change: no Blood aspirated: no Paresthesia pain: none Resistance on injection: normal Intermittent incremental injection LA at 5ml LA surrounding nerve by ultrasonographc visualization us Arron Ansari DO ANESTHESIA [place]AB[place] [address] documented in this encounter Visit Diagnoses Not on filedocumented in this encounter Administered Medications Inactive Administered Medications - up to 1 most recent administrations Medication Order MAR Action Action Date Dose Rate Site albuterol (PROVENTIL HFA;VENTOLIN HFA) inhaler PRN (Anesthesia), Starting on Mon11/29/19 at 0959, Until Mon11/29/19 at 1023, Anesthesia Intra-op Given 11/29/2019 9:59 AM EDT 2 Puffs bupivacaine-EPINEPHrine 0.5 %-1:200,000 injection PRN (Anesthesia), Starting on Mon11/29/19 at 0815, Until Mon11/29/19 at 1023, Anesthesia Intra-op Given 11/29/2019 8:15 AM EDT 30 mL ceFAZolin (ANCEF) IVPB 2 g 2 g, Intravenous, ONCE PREPROCEDURE, 1 dose, On Mon11/29/19 at 0730, Administer over 30 Minutes Given 11/29/2019 8:46 AM EDT 2 g dexamethasone (DECADRON) injection PRN (Anesthesia), Starting on Mon11/29/19 at 0930, Until Mon11/29/19 at 1023, Anesthesia Intra-op Given 11/29/2019 9:30 AM EDT 4 mg lidocaine 1% 10 mg/mL (1 %) injection Intravenous, PRN (Anesthesia), Starting on Mon11/29/19 at 0853, Until Mon11/29/19 at 1023, Anesthesia Intra-op Given 11/29/2019 8:53 AM EDT 75 mg midazolam (VERSED) injection PRN (Anesthesia), Starting on Mon11/29/19 at 0815, Until Mon11/29/19 at 1023, Anesthesia Intra-op Given 11/29/2019 8:15 AM EDT 2 mg ondansetron (ZOFRAN) injection PRN (Anesthesia), Starting on Mon11/29/19 at 0950, Until Mon11/29/19 at 1023, Anesthesia Intra-op Given 11/29/2019 9:50 AM EDT 4 mg propofoL (DIPRIVAN) injection Intravenous, PRN (Anesthesia), Starting on Mon11/29/19 at 0853, Until Mon11/29/19 at 1023, Anesthesia Intra-op Given 11/29/2019 8:53 AM EDT 220 mg rocuronium injection Intravenous, PRN (Anesthesia), Starting on Mon11/29/19 at 0853, Until Mon11/29/19 at 1023, Anesthesia Intra-op Given 11/29/2019 8:53 AM EDT 6 mg succinylcholine (ANECTINE) injection Intravenous, PRN (Anesthesia), Starting on Mon11/29/19 at 0853, Until Mon11/29/19 at 1023, Anesthesia Intra-op Given 11/29/2019 8:53 AM EDT 120 mg documented in this encounter Care Teams Study Coordinator Relationship Specialty Start Date End Date Michelle Garrido APRN PCP - General Nurse Practitioner 01/09/17 01/14/21 documented as of this encounter
--- OUTSIDE RECORDS SUMMARY | 2024-05-29 15:47 | XMS_ITS | Encounter Summary ---
Author Organization [facility] [place] [address] Care Team Providers Care Programming Manager Name Role Phone Michelle Garrido APRN Primary Care Provider Unava ilable Encounter Details Date Type Department Care Team (Latest Contact Info) Description 11/22/2019 Travel Social History Tobacco Use Types Packs/Day [...] have Coronavirus / COVID-19? No / Unsure 11/22/2019 3:18 PM EDT documented as of this encounter [...] EST Clinical Support [facility] [address] [place] [address] 11/19/2024 1:40 PM EDT Office Visit [facility] Neurology [facility] [address] [place] [address] Lyndsay Brewer DO [address] [facility] [address] [place] [address] documented as of this [...] on filedocumented in this encounter Care Teams Programming Manager Relationship Specialty Start Date End Date Michelle Garrido APRN PCP - General Nurse Practitioner 01/09/17 01/14/21 documented as of this encounter
--- OUTSIDE RECORDS SUMMARY | 2024-05-29 15:47 | XMS_ITS | Encounter Summary ---
Author Organization [place] [address] Care Team Providers Care Demand Generator Manager Name Role Phone Michelle Garrido APRN Primary Care Provider Willie aguila Encounter Details Date Type Department Care Team (Late st Contact Info) Description 11/25/2019 9:40 AM EDT - 11/25/2019 4:44 PM EDT Hospital Encounter [facility] [address] [place] [address] Covid19, [facility] Pre-op testing; Encounter for laboratory testing for [...] Coronavirus / COVID-19? No / Unsure 11/25/2019 4:43 PM EDT documented as of this encounter [...] Discharge Nebulizer Accessories (ALL FLOW 4000 KIT) [facility] equivalent 1 Each 0 06/27/2012 ADVAIR [...] EST Clinical Support [facility] [address] [place] [address] 11/19/2024 1:40 PM EDT Office Visit SE[facility] Neurology [facility] [address] [place] [address] Lyndsay Brewer DO [address] [place] [address] documented as of this encounter [...] Priority Date/Time Associated Diagnosis Comments CORONAVIRUS 2019 (COVID-19) - REF LAB Routine 11/25/2019 9:42 AM EDT Encounter for laboratory testing for COVID-19 virus Pre-op testing documented in this encounter Results * CORONAVIRUS 2019 (COVID-19) - REF LAB (11/25/2019 9:42 AM EDT) CORONAVIRUS [id number] Not Detected 11/28/2019 7:04 AM EDT [facility] Comment: INTERPRETIVE INFORMATION: SARS-CoV-2 (COVID-19) by BRE This test should be ordered for the detection of the 2019 novel coronavirus SARS-CoV-2 in individuals who meet SARS-CoV-2 clinical and/or epidemiological criteria. The Coronavirus SARS-CoV-2 (COVID-19) by nucleic acid amplification test is for in vitro diagnostic use under the FDA Emergency Use Authorization (EUA) for US laboratories certified under CLIA to perform high complexity tests. This test has not been FDA cleared or approved. In compliance with this authorization, please visit [email or web address] for more information and to access the applicable information sheets. If the result is Not Detected, this does not rule out the presence of PCR inhibitors in the patient specimen or assay specific nucleic acid in concentrations below the level of detection by the assay. Performed by [facility], [address] [place] [id number] [email or web address], Pal Zaragoza MD, Lab. Director Coronavirus [facility] Nasopharyngeal 11/28/2019 7:04 AM EDT [facility] Swab SPECIMEN FROM NASOPHARYNGEAL STRUCTURE / Unknown 11/25/2019 9:42 AM EDT 11/25/2019 9:42 AM EDT Kenny Loja MD LAB SEND OUT ORDERABLES Final R esult [facility] [address] [place] [address] documented in this encounter Visit Diagnoses Diagnosis Pre-op testing Preoperative examination, unspecified Encounter for laboratory testing for COVID-19 virus documented in this encounter Care Teams Demand Generator Manager Relationship Specialty Start Date End Date Michelle Garrido APRN PCP - General Nurse Practitioner 01/09/17 01/14/21 documented as of this encounter
--- OUTSIDE RECORDS SUMMARY | 2024-05-29 15:47 | XMS_ITS | Encounter Summary ---
Author Organization [place] [address] Care Team Providers Care Anchorer Name Role Phone Michelle Garrido APRN Primary Care Provider Unava ilable Reason for Visit * Reason Onset Date Comments ED Follow-Up Call 09/23/2019 Encounter Details Date Type Department Care Team (Late st Contact Info) Description 09/23/2019 Patient Outreach [facility] [address] [place] [id number] Milly Hurtado, EDITOR NEWS Follow-Up Call Social History Tobacco Use Types [...] 07/03/2019 8:15 AM AIMEE White ESTEFANY Castañeda documented in this encounter Progress Notes * Milly Parker RN - 09/23/2019 11:03 AM EDT ED Follow Up Regarding the most recent emergency room visit: Number of ED visits in last year: 3 Contact made?: Yes Medical reason for visit: Injury of left ankle, initial encounter Do you feel the staff kept you informed during your visit?: Yes Have your symptoms improved since your ED visit?: No (Comment: still sore) Were you able to, or did you try to, reach us prior to deciding to go to the ED?: No (Comment: no went to urgent care ortho first) Were you aware that we always have a provider insulation hoseman and offer eVisits?: No (Comment: educated ) Are you aware of the [facility] or [facility] Care?: (Comment: n/a) Was there anything more that we could have done to facilitate a visit to our provider office if theED visit was not due to an emergency?: No (Comment: called urgent) Reason you chose to go to ED as site for your medical care?: Severe Pain Chronicity of Severe Pain: new/acute Did you get a prescription, or were your medications changed?: No If patient is unable to fill medications, please consider a social work consult if criteria met: Would you like to follow up with your PCP?: No Reason for declining PCP appointment: Has specialist appointment (Comment: will call ortho) It is important to us that you understood your discharge instructions from the ED. Do you have any questions?: No Are there additional concerns that we have not discussed that I can help you with?: No documented in this encounter Plan of Treatment Upcoming Encounters Date Type Department Care Team (Late st Contact Info) Description 06/28/2024 9:40 AM EST Clinical Support [facility] [address] [place] [address] 11/19/2024 1:40 PM EDT Office Visit [facility] Neurology [facility] [address] [place] [phone] Lyndsay Brewer DO [address] [place] [address] documented as of this encounter Goals Goal [...] on filedocumented in this encounter Care Teams Anchorer Relationship Specialty Start Date End Date Michelle Garrido APRN PCP - General Nurse Practitioner 01/09/17 01/14/21 documented as of this encounter
--- OUTSIDE RECORDS SUMMARY | 2024-05-29 15:47 | XMS_ITS | Encounter Summary ---
Author Organization [facility] [place] [address] Care Team Providers Care Blood Bank Order Control Clerk Name Role Phone Michelle Garrido APRN Primary Care Provider Unava ilable Encounter Details Date Type Department Care Team (Latest Contact Info) Description 10/24/2019 Travel Social History Tobacco Use Types Packs/Day [...] have Coronavirus / COVID-19? No / Unsure 10/24/2019 8:49 AM EDT documented as of this encounter [...] EST Clinical Support [facility] [address] [place] [address] 11/19/2024 1:40 PM EDT Office Visit SE[facility] Neurology [facility] [address] [place] [address] Lyndsay Brewer DO [address] [place] [address] documented as of this encounter [...] on filedocumented in this encounter Care Teams Blood Bank Order Control Clerk Relationship Specialty Start Date End Date Michelle Garrido APRN PCP - General Nurse Practitioner 01/09/17 01/14/21 documented as of this encounter
--- OUTSIDE RECORDS SUMMARY | 2024-05-29 15:48 | XMS_ITS | Encounter Summary ---
Author Organization [place] [address] Care Team Providers Care Ranch Hand Livestock Name Role Phone Michelle Garrido APRN Primary Care Provider Willie aguila Encounter Details Date Type Department Care Team (Latest Contact Info) Description 08/06/2019 10:02 AM EST - 08/06/2019 11:59 PM [facility] Hospital Encounter [facility] [address] [id number] High risk medications (not anticoagulants) long-term use; Dizziness; Malaise and fatigue Discharge Disposition: Home or Self Care Social [...] Discharge Nebulizer Accessories (ALL FLOW 4000 KIT) [place] [facility] equivalent 1 Each 0 06/27/2012 ADVAIR [...] by mouth daily. 90 Tab 07/18/2019 0 VIBERZI 100 mg Oral TabletIndications :Irritable bowel syndrome with diarrhea TAKE 1 TABLET BY MOUTH TWICE A DAY 60 Tab 07/19/2019 0 documented as of this encounter Discharge Disposition Disposition Code Departure Means Destination Home or Self Care documented in this encounter Plan of Treatment Upcoming Encounters Date Type Department Care Team (Late st Contact Info) Description 06/28/2024 9:40 AM EST Clinical Support [facility] [address] [place] [address] 11/19/2024 1:40 PM EDT Office Visit [facility] Neurology [facility] [address] [place] [address] Lyndsay Brewer DO [address] [place] [address] documented as of this encounter [...] Date/Time Associated Diagnosis Comments TSH REFLEX Routine 08/06/2019 10:03 AM EST Malaise and fatigue Dizziness CBC WITH DIFF Routine 08/06/2019 10:03 AM EST High risk medications (not anticoagulants) long-term use Dizziness COMPREHENSIVE METABOLIC PANEL Routine 08/06/2019 10:03 AM EST High risk medications (not anticoagulants) long-term use Dizziness documented in this encounter Results * TSH REFLEX (08/06/2019 10:03 AM EST) TSH Reflex 1.620 0.270 - 4.200 mcIU/mL 08/06/2019 3:48 PM EST [facility] VENOUS BLOOD / Unknown Venipuncture / Unknown 08/06/2019 10:03 AM EST 08/06/2019 10:03 AM EST Narrative [facility] - 08/06/2019 3:48 PM EST Ingestion of john doses of biotin (>5 mg/day) taken within 8 hours of drawing blood sample can interfere with this immunoassay test. us Shaheed Riley DO CHEMISTRY ORDERABLES Final Res ult [facility] [address] [facility] , [place] [address] * COMPREHENSIVE METABOLIC PANEL (08/06/2019 10:03 AM EST) Sodium 141 136 - 145 mmol/L 08/06/2019 3:48 PM EST [facility] Potassium 3.8 3.5 - 5.0 mmol/L 08/06/2019 3:48 PM EST [facility] Chloride 102 98 - 107 mmol/L 08/06/2019 3:48 PM EST [facility] Total CO2 26 22 - 29 mmol/L 08/06/2019 3:48 PM EST [facility] Anion Gap 13 7 - 16 mmol/L 08/06/2019 3:48 PM EST [facility] Calcium 9.9 8.6 - 10.4 mg/dL 08/06/2019 3:48 PM EST [facility] Glucose Lvl 94 74 - 100 mg/dL 08/06/2019 3:48 PM EST [facility] BUN 18 6 - 20 mg/dL 08/06/2019 3:48 PM EST [facility] Creatinine 1.17 0.67 - 1.30 mg/dL 08/06/2019 3:48 PM EST [facility] Albumin 4.7 3.5 - 5.2 gm/dL 08/06/2019 3:48 PM EST [facility] Total Protein 7.3 6.4 - 8.3 gm/dL 08/06/2019 3:48 PM EST [facility] Bili Total 0.3 0.1 - 1.4 mg/dL 08/06/2019 3:48 PM EST [facility] ALT 26 <=41 IU/L 08/06/2019 3:48 PM EST [facility] AST 31 <=40 IU/L 08/06/2019 3:48 PM EST [facility] Alk Phos 94 40 - 129 IU/L 08/06/2019 3:48 PM EST [facility] GFR Afr Am 83 >=60 mL/min/1.7 3 m2 08/06/2019 3:48 PM EST [facility] GFR Non Afr Am 72 >=60 mL/min/1.7 3 m2 08/06/2019 3:48 PM EST [facility] Comment: This estimated GFR was calculated [...] VENOUS BLOOD / Unknown Venipuncture / Unknown 08/06/2019 10:03 AM EST 08/06/2019 10:03 AM EST us Shaheed Riley DO CHEMISTRY ORDERABLES Final Res ult [facility] [address] [facility], [address] [place] [id number] [facility] [address] [place] [address] * CBC WITH DIFF (08/06/2019 10:03 AM EST) [facility] Signature WBC 7.0 3.7 - 10.3 x10(3)/mcL 08/06/2019 3:26 PM EST [facility] RBC 4.66 4.60 - 6.10 x10(6)/mcL 08/06/2019 3:26 PM EST [facility] Hgb 14.7 13.7 - 17.5 g/dL 08/06/2019 3:26 PM EST [facility] Hct 44.9 40.0 - 51.0 % 08/06/2019 3:26 PM EST [facility] MCV 96.4 80.0 - 100.0 fL 08/06/2019 3:26 PM EST [facility] MCH 31.5 26.0 - 34.0 pg 08/06/2019 3:26 PM EST [facility] MCHC 32.7 30.7 - 35.5 g/dL 08/06/2019 3:26 PM EST [facility] RDW 12.3 <=14.9 % 08/06/2019 3:26 PM EST [facility] Platelet 183 155 - 369 x10(3)/mcL 08/06/2019 3:26 PM EST [facility] MPV 10.6 8.8 - 12.5 fL 08/06/2019 3:26 PM EST [facility] Neut Percent 69.8 % 08/06/2019 3:26 PM EST [facility] Comment:Neutrophils equals s egs plus bands Imm Gran% 0.4 % 08/06/2019 3:26 PM EST [facility] Comment:Automated count of m etamyelocytes, myelocytes and promyelocytes. Lymph Percent 21.7 % 08/06/2019 3:26 PM EST [facility] Zapata Percent 6.7 % 08/06/2019 3:26 PM EST [facility] Eos Percent 1.1 % 08/06/2019 3:26 PM EST [facility] Baso Percent 0.3 % 08/06/2019 3:26 PM EST [facility] Neut # 4.9 1.6 - 6.1 x10(3)/[facility] 08/06/2019 3:26 PM EST [facility] Comment:Neutrophils equals s egs plus bands IMMGRAN# 0.0 0.0 - 0.1 x10(3)/[facility] 08/06/2019 3:26 PM EST [facility] Comment:Automated count of m etamyelocytes, myelocytes and promyelocytes. An absolute IG <0.1 is reported as 0.0. Lymph # 1.5 1.2 - 3.9 x10(3)/[facility] 08/06/2019 3:26 PM EST [facility] Zapata # 0.5 0.3 - 0.9 x10(3)/[facility] 08/06/2019 3:26 PM EST [facility] Eos# 0.1 0.0 - 0.5 x10(3)/[facility] 08/06/2019 3:26 PM EST [facility] Baso # 0.0 0.0 - 0.1 x10(3)/[facility] 08/06/2019 3:26 PM EST [facility] Blood VENOUS BLOOD / Unknown Venipuncture / Unknown 08/06/2019 10:03 AM EST 08/06/2019 10:03 AM EST Shaheed L Sharp DO HEMATOLOGY ORDERABLES Final Re sult [facility] [place] [address] [facility] , [place] [address] documented in this encounter Visit Diagnoses Diagnosis High risk medications (not anticoagulants) long-term use Encounter for long-term (current) use of other medications Dizziness Dizziness and giddiness Malaise and fatigue Other malaise and fatigue documented in this encounter Care Teams [employer]estock Relationship Specialty Start Date End Date Michelle Garrido APRN PCP - General Nurse Practitioner 01/09/17 01/14/21 documented as of this encounter
--- OUTSIDE RECORDS SUMMARY | 2024-05-29 15:48 | XMS_ITS | Encounter Summary ---
Author Organization [place] [address] Care Team Providers Care Manager Science Name Role Phone Michelle Garrido APRN Primary Care Provider Unava ilable Reason for Visit * Reason Comments Medication Refill Encounter Details Date Type Department Care Team (Late st Contact Info) Description 06/22/2019 Refill [facility] [address] [place] [address] Michelle Garrido APRN Medication Refill [...] hearing? Answer Date of Assessment Author No 04/15/2019 2:06 PM EDT Jane Garrido MA * Is the person blind or does he/she have serious difficulty seeing even when wearing glasses? Answer Date of Assessment Author No 04/15/2019 2:06 PM EDT Jane Garrido MA * Does this person have serious difficulty walking or climbing stairs? Answer Date of Assessment Author No 04/15/2019 2:06 PM EDT Jane Garrido MA * Does this person have difficulty dressing or bathing? Answer Date of Assessment Author No 04/15/2019 2:06 PM EDT Jane Garrido MA * Because of a physical, mental or emotional condition, does this person have difficulty doing errands alone such as visiting a doctor's office or shopping? Answer Date of Assessment Author No 04/15/2019 2:06 PM EDT Jane Garrido MA documented as of this encounter Mental Status * Because of a physical, mental or emotional condition, does this person have serious difficulty concentrating, remembering or making decisions? Answer Entry Date Author No 04/15/2019 2:06 PM EDT Jane Garrido MA documented in this encounter Ordered Prescriptions Prescription Sig Dispense Quantity Refills Last Filled Start Date End Date losartan (COZAAR) 50 mg Oral Tablet TAKE 1 TABLET BY MOUTH EVERY DAY 90 Tab 06/24/2019 0 hydroCHLOROthiazid e (MICROZIDE) 12.5 mg Oral Capsule TAKE 1 CAPSULE BY MOUTH EVERY DAY 90 Cap 06/24/2019 0 documented in this encounter Plan of Treatment Upcoming Encounters Date Type Department Care Team (Late st Contact Info) Description 06/28/2024 9:40 AM EST Clinical Support [facility] [address] [facility] [place] [address] 11/19/2024 1:40 PM EDT Office Visit SEP Neurology [facility] [address] [place] [address] Lyndsay Brewer DO [address] [facility] [address] [place] [address] documented as of this encounter [...] TAKE 1 CAPSULE BY MOUTH EVERY DAY 04/08/2019 06/24/2019 losartan (COZAAR) 50 mg Oral Tablet TAKE 1 TABLET BY MOUTH EVERY DAY 04/08/2019 06/24/2019 documented as of this encounter Care Teams Manager Science Relationship Specialty Start Date End Date Michelle Garrido APRN PCP - General Nurse Practitioner 01/09/17 01/14/21 documented as of this encounter
--- OUTSIDE RECORDS SUMMARY | 2024-05-29 15:48 | XMS_ITS | Encounter Summary ---
Author Organization [place] [address] Care Team Providers Care Safety Risk Lead Name Role Phone Michelle Garrido APRN Primary Care Provider Unava ilable Reason for Visit * Reason Comments Rash Encounter Details Date Type Department Care Team (Late st Contact Info) Description 04/04/2019 1:30 PM EDT Office Visit [facility] [address] [place] [address] Ligia Wiley MD [address] [employer] [place], [place] [id number] Allergic dermatitis (Primary Dx) Social History Tobacco Use Types Packs/Day Years Used Date Smoking Tobacco: Never Smokeless Tobacco: Current Snuff Alcohol Use Standard Drinks/Week Comments No 0 (1 standard drink = 0.6 oz pur e alcohol) Sex and Gender Information Value Date Recorded Sex Assigned at Not on file Legal Sex Male 8:00 PM EDT Gender Identity Not on file Sexual Orientation Not on file documented as of this encounter Last Filed Vital Signs Vital Sign Reading Time Taken Comments Blood Pressure 132/80 04/04/2019 1:45 PM EDT Pulse - - Temperature - - Respiratory Rate - - Oxygen Saturation - - Inhaled Oxygen Concentration - - Weight 89.4 kg (197 lb) 04/04/2019 1:45 PM EDT Height 170.2 cm (5' 7 ) 04/04/2019 1:45 PM EDT Body Mass Index 30.85 04/04/2019 1:45 PM EDT documented in this encounter Functional Status * Is the person deaf or does he/she have serious difficulty hearing? Answer Date of Assessment Author No 07/11/2017 9:14 AM Riya Pérez, RMA * Is the person blind or does he/she have serious difficulty seeing even when wearing glasses? Answer Date of Assessment Author No 07/11/2017 9:14 AM Riya Pérez, RMA * Does this person have serious difficulty walking or climbing stairs? Answer Date of Assessment Author No 07/11/2017 9:14 AM Riya Pérez, RMA * Does this person have difficulty dressing or bathing? Answer Date of Assessment Author No 07/11/2017 9:14 AM Riya Pérez, RMA * Because of a physical, mental or emotional condition, does this person have difficulty doing errands alone such as visiting a doctor's office or shopping? Answer Date of Assessment Author No 07/11/2017 9:14 AM Riya Pérez, RMA documented as of this encounter Mental Status * Because of a physical, mental or emotional condition, does this person have serious difficulty concentrating, remembering or making decisions? Answer Entry Date Author No 07/11/2017 9:14 AM Riya Pérez, RMA documented in this encounter Ordered Prescriptions Prescription Sig Dispense Quantity Refills Last Filled Start Date End Date predniSONE (DELTASONE) 5 mg Oral TabletIndications:A llergic dermatitis Take 4 Tabs by mouth daily for 4 days, THEN 3 Tabs daily for 4 days, THEN 2 Tabs daily for 4 days, THEN 1 Tab daily for 4 days. 40 Tab 04/04/2019 04/20/2019 documented in this encounter Progress Notes * Ligia Wiley MD - 04/04/2019 1:30 PM EDT Images from the original note were not included. Vitals: 04/04/19 1345 BP: 132/80 Weight: 197 lb (89.4 kg) Height: 5' 7 (1.702 m) SUBJECTIVE: Chief Complaint Patient presents with ??? Rash HPI: Pt c/o a rash that is spread out throughout his whole body. Worse on his upper thighs and bothfeet x 3 weeks. Has applied Calamine lotion, Benadryl, and Hydrocortisone cream. Pt says rash is very itchy. States last month he was in [place] and was cutting down trees. Does not know if he camein contact with any poison harpreet. Review of Systems Constitutional: Negative for fever. HENT: Negative for congestion, rhinorrhea and sinus pressure. Respiratory: Negative for cough and shortness of breath. Cardiovascular: Negative for chest pain. Gastrointestinal: Negative for abdominal pain, constipation, diarrhea, nausea and vomiting. Endocrine: Negative for polydipsia, polyphagia and polyuria. Genitourinary: Negative for dysuria. Musculoskeletal: Negative for back pain. Skin: Positive for rash. Neurological: Negative for dizziness, seizures, light-headedness and headaches. Psychiatric/Behavioral: Negative for sleep disturbance. OBJECTIVE: Physical Exam Constitutional: General: He is not in acute distress. Appearance: He is well-developed. HENT: Head: Normocephalic and atraumatic. Eyes: Conjunctiva/sclera: Conjunctivae normal. Pupils: Pupils are equal, round, and reactive to light. Neck: Musculoskeletal: Normal range of motion. Cardiovascular: Rate and Rhythm: Normal rate and regular rhythm. Heart sounds: Normal heart sounds. No murmur. Pulmonary: Effort: Pulmonary effort is normal. Breath sounds: Normal breath sounds. No wheezing. Musculoskeletal: Normal range of motion. Skin: General: Skin is warm and dry. Findings: No rash. Neurological: Mental Status: He is alert. Cranial Nerves: No cranial nerve deficit. Psychiatric: Behavior: Behavior normal. Assessment Diagnoses and all orders for this visit: Allergic dermatitis - predniSONE (DELTASONE) 5 mg Oral Tablet; Take 4 Tabs by mouth daily for 4 days, THEN 3 Tabs dailyfor 4 days, THEN 2 Tabs daily for 4 days, THEN 1 Tab daily for 4 days. Dispense: 40 Tab; Refill: 0 documented in this encounter Plan of Treatment Upcoming Encounters Date Type Department Care Team (Late st Contact Info) Description 06/28/2024 9:40 AM EST Clinical Support [facility] [address] [place] [phone] 11/19/2024 1:40 PM EDT Office Visit [facility] Neurology [facility] [address] [place] [address] Lyndsay Brewer, [address] [place] [address] documented as of this encounter Goals Goal Patient Goal Type Associated Problems Recent Progress Patient-Stated? Author Blood Pressure < 140/90 Blood Pressure 134/84(2023 1:16 PM EST) No Yana Choi RMA Eat better, exercise, reach an ideal body weight General No Yana Choi RMA Stay Tobacco Free Lifestyle No Yana Choi RMA documented as of this encounter Visit Diagnoses Diagnosis Allergic dermatitis- Primary Contact dermatitis and other eczema, due to unspecified cause documented in this encounter Care Teams Safety Risk Lead Relationship Specialty Start Date End Date Michelle Garrido APRN PCP - General Nurse Practitioner 01/09/17 01/14/21 documented as of this encounter
--- OUTSIDE RECORDS SUMMARY | 2024-05-29 15:48 | XMS_ITS | Encounter Summary ---
Author Organization [place] [address] Care Team Providers Care Director Instrumentation Name Role Phone Michelle Garrido APRN Primary Care Provider Willie aguila Encounter Details Date Type Department Care Team (Late st Contact Info) Description 03/18/2019 Orders Only [facility] [address] [place] [address] Ligia Wiley MD [address] [place] [address] Irritable bowel syndrome with diarrhea Social History Tobacco Use Types Packs/Day [...] Assessment Author No 07/11/2017 9:14 AM Riya Pérez RMA * Is the person blind or does he/she have serious difficulty seeing even when wearing glasses? Answer Date of Assessment Author No 07/11/2017 9:14 AM Riya Pérez RMA * Does this person have serious difficulty walking or climbing stairs? Answer Date of Assessment Author No 07/11/2017 9:14 AM Riya Pérez RMA * Does this person have difficulty dressing or bathing? Answer Date of Assessment Author No 07/11/2017 9:14 AM Riya Pérez ESTEFANY * Because of a physical, mental or emotional condition, does this person have difficulty doing errands alone such as visiting a doctor's office or shopping? Answer Date of Assessment Author No 07/11/2017 9:14 AM Riya Pérez ESTEFANY documented as of this encounter Mental Status * Because of a physical, mental or emotional condition, does this person have serious difficulty concentrating, remembering or making decisions? Answer Entry Date Author No 07/11/2017 9:14 AM Riya Pérez ESTEFANY documented in this encounter Ordered Prescriptions Prescription Sig Dispense Quantity Refills Last Filled Start Date End Date eluxadoline (VIBERZI) 100 mg Oral TabletIndications:I rritable bowel syndrome with diarrhea Take 1 Tab by mouth 2 times daily. 60 Tab 03/18/2019 05/14/2019 documented in this encounter Plan of Treatment Upcoming Encounters Date Type Department Care Team (Late st Contact Info) Description 06/28/2024 9:40 AM EST Clinical Support [facility] [address] [place] [address] 11/19/2024 1:40 PM EDT Office Visit [facility] Neurology [facility] [address] [place] [address] Lyndsay Brewer DO [address] [facility] [address] [place] [address] documented as of this encounter Goals Goal Patient Goal Type Associated Problems Recent Progress Patient-Stated? Author Blood Pressure < 140/90 Blood Pressure 134/84(2023 1:16 PM EST) Yana Pina RMA Eat better, exercise, reach an ideal body weight General Yana Pina RMA Stay Tobacco Free Lifestyle Yana Pina RMA documented as of this encounter Visit Diagnoses Diagnosis Irritable bowel syndrome with diarrhea Irritable bowel syndrome documented in this encounter Discontinued Medications Medication Sig Discontinue Reason Start Date End Da te VIBERZI 100 mg Oral TabletIndications:Irrita ble bowel syndrome with diarrhea TAKE 1 TABLET BY MOUTH TWICE A DAY Reorder 02/15/2019 03/18/2019 documented as of this encounter Care Teams Director Instrumentation Relationship Specialty Start Date End Date Michelle Garrido, YOLI PCP - General Nurse Practitioner 01/09/17 01/14/21 documented as of this encounter
--- OUTSIDE RECORDS SUMMARY | 2024-05-29 15:48 | XMS_ITS | Encounter Summary ---
Author Organization [place] [address] Care Team Providers Care Credit Report Checker Name Role Phone Michelle Garrido APRN Primary Care Provider Unava ilable Reason for Visit * Reason Comments Medication Refill Encounter Details Date Type Department Care Team (Late st Contact Info) Description 02/14/2019 Refill [facility] [address] [place] [address] Michelle Garrido APRN Medication Refill [...] of Assessment Author No 07/11/2017 9:14 AM EST Choi, Ch ristina G, RMA * Because of a physical, mental or emotional condition, does this person have difficulty doing errands alone such as visiting a doctor's office or shopping? Answer Date of Assessment Author No 07/11/2017 9:14 AM Riya Pérez RMA documented as of this encounter Mental Status * Because of a physical, mental or emotional condition, does this person have serious difficulty concentrating, remembering or making decisions? Answer Entry Date Author No 07/11/2017 9:14 AM Riya Pérez RMA documented in this encounter Ordered Prescriptions Prescription Sig Dispense Quantity Refills Last Filled Start Date End Date VIBERZI 100 mg Oral TabletIndications: Irritable bowel syndrome with diarrhea TAKE 1 TABLET BY MOUTH TWICE A DAY 60 Tab 02/15/2019 03/18/2019 documented in this encounter Miscellaneous Notes * Telephone Encounter - Reginald Leigh MD - 02/15/2019 12:37 PM EDT I sent in the viberzi. * Telephone Encounter - Farzana Garrido MA - 02/15/2019 8:56 AM EDT DENZEL: as expected 12/04/18 LRF 01/04/19 GUS 02/07/19 documented in this encounter Plan of Treatment Upcoming Encounters Date Type Department Care Team (Late st Contact Info) Description 06/28/2024 9:40 AM EST Clinical Support [facility] [address] [employer] [place] [phone] 11/19/2024 1:40 PM EDT Office Visit [facility] Neurology [facility] [address] [place] [address] Lyndsay Brewer DO [address] [place] [address] documented as of this encounter Goals [...] TABLET BY MOUTH TWICE A DAY Reorder 01/04/2019 02/14/2019 documented as of this encounter Care Teams Credit Report Checker Relationship Specialty Start Date End Date Michelle Garrido APRN PCP - General Nurse Practitioner 01/09/17 01/14/21 documented as of this encounter
--- OUTSIDE RECORDS SUMMARY | 2024-05-29 15:48 | XMS_ITS | Encounter Summary ---
Author Organization [place] [address] Care Team Providers Care Supervisor Engraving Name Role Phone Michelle Garrido APRN Primary Care Provider Willie aguila Encounter Details Date Type Department Care Team (Late st Contact Info) Description 03/15/2019 Orders Only [facility] [address] [place] [address] Katie Lutz RMA Social History [...] 07/11/2017 9:14 AM Riya Pérez RMA * Because of a physical, mental [...] by mouth 2 times daily. 60 Cap 03/15/2019 04/04/2019 documented in this encounter Plan of Treatment Upcoming Encounters Date Type Department Care Team (Late st Contact Info) Description 06/28/2024 9:40 AM EST Clinical Support [facility] [address] [employer] [place] [address] 11/19/2024 1:40 PM EDT Office Visit SEP Neurology [facility] [address] [place] [address] Lyndsay Brewer DO [address] [place] [address] documented as of this [...] celecoxib (CELEBREX) 200 mg Oral Capsule Take 200 mg by mouth 2 times daily. Reorder 03/15/2019 documented as of this encounter Care Teams Supervisor Engraving Relationship Specialty Start Date End Date Michelle Garrido APRN PCP - General Nurse Practitioner 01/09/17 01/14/21 documented as of this encounter
--- OUTSIDE RECORDS SUMMARY | 2024-05-29 15:48 | XMS_ITS | Encounter Summary ---
Author Organization [place] [address] Care Team Providers Care Foreign Car Mechanic Name Role Phone Michelle Garrido APRN Primary Care Provider Unava ilable Reason for Visit * Reason Comments Rash Arthritis Other cologuard Encounter Details Date Type Department Care Team (Latest Contact Info) Description 07/03/2019 8:15 AM EST Office [place] [facility] [address] [place] [address] Michelle Garrido APRN Primary osteoarthritis of both knees (Primary Dx); Elevated BUN Social History Tobacco Use Types Packs/Day Years Used Date Smoking Tobacco: Never Smokeless Tobacco: Current Snuff Tobacco Cessation:Ready to Q uit: No; Counseling Given: Yes Alcohol Use Standard Drinks/Week Comments No 0 [...] Sign Reading Time Taken Comments Blood Pressure 122/84 07/03/2019 8:08 AM EST Pulse 81 07/03/2019 8:08 AM EST Temperature 36.7 ??C (98 ??F) 07/03/2019 8:08 AM EST Respiratory Rate - - Oxygen Saturation 96% 07/03/2019 8:08 AM EST Inhaled Oxygen Concentration - - Weight 92.1 kg (203 lb) 07/03/2019 8:08 AM EST Height 170.2 cm (5' 7 ) 07/03/2019 8:08 AM EST Body Mass Index 31.79 07/03/2019 8:08 AM EST documented in this encounter Functional [...] 8:15 AM EST Maddy White RMJane * Does this person have difficulty dressing [...] Maddy White RMA documented in this encounter Progress Notes * Michelle Garrido, OFFICE CHAIR ASSEMBLER - 07/03/2019 8:15 AM EST Vitals: 07/03/19 0808 BP: 122/84 BP Location: Left arm Patient Position: Sitting Pulse: 81 Temp: 98 ??F (36.7 ??C) TempSrc: Oral SpO2: 96% Weight: 203 lb (92.1 kg) Height: 5' 7 (1.702 m) SUBJECTIVE: Chief Complaint Patient presents with ??? Rash ??? Arthritis ??? Other cologuard HPI: Pt had previous allergic dermatitis of bilateral hands and treated with steroid cream. Pt reports happened again in the last couple of days and Patient would like to discuss arthritis. Possible injections in his knees. Pt has had injections inthe past and they always work for him. Patient reminded he is due for a colon screen. Patient has cologuard kit at home and will complete. Review of Systems Musculoskeletal: Positive for arthralgias ( bilateral knees, chronic). Skin: Positive for rash. OBJECTIVE: Physical Exam Cardiovascular: Rate and Rhythm: Normal rate. Pulses: Normal pulses. Pulmonary: Effort: Pulmonary effort is normal. Musculoskeletal: Right knee: He exhibits normal range of motion, no effusion and no erythema. Left knee: He exhibits normal range of motion, no effusion and no erythema. Skin: Capillary Refill: Capillary refill takes less than 2 seconds. Findings: Rash ( dermatitis bilateral hands) present. Neurological: Mental Status: He is alert. A steroid injection was performed at both knees using sterile technique with lateral approach with 1% plain Lidocaine and 80 mg of Depo-medrol. This was well tolerated. Assessment Diagnoses and all orders for this visit: Primary osteoarthritis of both knees - WV ARTHROCENTESIS ASPIR&/INJ MAJOR JT/BURSA W/O US - W[place] ARTHROCENTESIS ASPIR&/INJ MAJOR JT/BURSA W/O US - methylPREDNISolone acetate (DEPO-Medrol) injection 80 mg - methylPREDNISolone acetate (DEPO-Medrol) injection 80 mg Elevated BUN - BASIC METABOLIC PANEL * Milly Dasilva - 07/03/2019 8:15 AM EST Right antecubital. 1 mint documented in this encounter Plan of Treatment Upcoming Encounters Date Type Department Care Team (Late st Contact Info) Description 06/28/2024 9:40 AM EST Clinical Support [facility] [address] [place] [address] 11/19/2024 1:40 PM EDT Office Visit [facility] Neurology [facility] [address] [place] [address] Lyndsay Brewer DO [address] [place] [address] Scheduled Orders Name Type Priority Associated Diagnoses Orde r Schedule WV ARTHROCENTESIS ASPIR&/INJ MAJOR JT/BURSA W/O US W[place] Charge Routine Primary osteoarthritis of both knees Ordered: 07/16/2019 WV ARTHROCENTESIS ASPIR&/INJ MAJOR JT/BURSA W/O US W[place] Charge Routine Primary osteoarthritis of both knees Ordered: 07/16/2019 documented as of this encounter Goals Goal [...] Associated Diagnosis Comments BASIC METABOLIC PANEL Routine 07/03/2019 9:03 AM EST Elevated BUN documented in this encounter Results * (ABNORMAL) BASIC METABOLIC PANEL (07/03/2019 9:03 AM EST) Sodium 141 136 - 145 mmol/L 07/03/2019 4:28 PM EST [facility] Potassium 4.3 3.5 - 5.0 mmol/L 07/03/2019 4:28 PM EST [facility] Chloride 104 98 - 107 mmol/L 07/03/2019 4:28 PM EST [facility] Total CO2 23 22 - 29 mmol/L 07/03/2019 4:28 PM EST [facility] Anion Gap 14 7 - 16 mmol/L 07/03/2019 4:28 PM EST [facility] Calcium 9.9 8.6 - 10.4 mg/dL 07/03/2019 4:28 PM EST [facility] Glucose Lvl 99 74 - 100 mg/dL 07/03/2019 4:28 PM EST [facility] BUN 21(H) 6 - 20 mg/dL 07/03/2019 4:28 PM EST [facility] Creatinine 0.96 0.67 - 1.30 mg/dL 07/03/2019 4:28 PM EST [facility] GFR Afr Am 105 >=60 mL/min/1.7 3 m2 07/03/2019 4:28 PM EST [facility] GFR Non Afr Am 91 >=60 mL/min/1.7 3 m2 07/03/2019 4:28 PM EST [facility] Comment: This estimated GFR was calculated [...] VENOUS BLOOD / Unknown Venipuncture / Unknown 07/03/2019 9:03 AM EST 07/03/2019 9:03 AM EST Michelle Garrido APRN CHEMISTRY ORDERABLES Final R esult [facility] [address] [facility] , [place] [address] [facility] [address] [place], [place] [id number] documented in this encounter Visit Diagnoses Diagnosis Primary osteoarthritis of both knees- Primary Primary localized osteoarthrosis, lower leg Elevated BUN Other abnormal blood chemistry documented in this encounter Discontinued Medications Medication Sig Discontinue Reason Start Date End Da te metroNIDAZOLE (METROGEL) 0.75 % Top GelIndications:Rosace a Apply topically 2 times daily. DELETE-Therapy completed 06/28/2016 07/03/2019 tiZANidine (ZANAFLEX) 4 mg Oral TabletIndications:Sci atica of right side Take 1 Tab by mouth 3 times daily. DELETE-Therapy completed 03/20/2018 07/03/2019 documented as of this encounter Orders Medications Ordered That Tone ht Not Have Been Administered Count Last Ordered Date First Ordered Date methylPREDNISolone acetate ( DEPO-Medrol) injection 80 mg 2 07/16/2019 documented in this encounter Care Teams Foreign Car Mechanic Relationship Specialty Start Date End Date Michelle Garrido APRN PCP - General Nurse Practitioner 01/09/17 01/14/21 documented as of this encounter
--- OUTSIDE RECORDS SUMMARY | 2024-05-29 15:48 | XMS_ITS | Encounter Summary ---
Author Organization [place] [address] Care Team Providers Care Refinery Operator Light Ends Recovery Name Role Phone Michelle Garrido APRN Primary Care Provider Unava ilable Reason for Visit * Reason Onset Date Comments Medication Refill 04/04/2019 celecoxib (ROBERT EBREX) 200 mg Oral [id number] Cap03/15/2019 Encounter Details Date Type Department Care Team (Late Contact Info) Description 04/04/2019 Refill [facility] [address] [place] [address] Michelle Garrido APRN Medication Refill (celecoxib (CELEBREX) 200 mg Oral [id number] Cap03/15/2019) Social History Tobacco Use Types Packs/Day Years [...] Assessment Author No 07/11/2017 9:14 AM Riya Pérezyobani ESTEFANY Garcia * Because of a physical, mental or [...] Entry Date Author No 07/11/2017 9:14 AM AIMEE Choi Riya blasyobani ESTEFANY Garcia documented in this encounter Ordered Prescriptions Prescription Sig Dispense Quantity Refills Last Filled Start Date End Date celecoxib (CELEBREX) 200 mg Oral Capsule Take 1 Cap by mouth 2 times daily. 60 Cap 04/04/2019 05/02/2019 documented in this encounter Miscellaneous Notes * Telephone Encounter - Rocio Brewster CMA - 04/04/2019 2:34 PM EDT Sent pt advised. * Telephone Encounter - Arron Kennedy - 04/04/2019 2:16 PM EDT Medication Refill Who is requesting the refill: pt Medication(s)Name/Dosage/Frequency: celecoxib (CELEBREX) 200 mg Oral Capsule 60 Cap 0 03/15/2019 Sig - Route: Take 1 Cap by mouth 2 times daily. - Oral Sent to pharmacy as: celecoxib 200 mg capsule (CeleBREX) Cosign for Ordering: Accepted by Brian Hickman MD on 04/03/2019 ??2:15 PM E-Prescribing Status: Receipt confirmed by pharmacy (03/15/2019 ??1:47 PM EDT) Did patient contact the pharmacy first: No How many days left on hand: 0 Future appt date w/ prescribing provider: was in today Pharmacy & Location: [facility] in [place] documented in this encounter Plan of Treatment Upcoming Encounters Date Type Department Care Team (Late st Contact Info) Description 06/28/2024 9:40 AM EST Clinical Support [facility] [address] [place] [phone] 11/19/2024 1:40 PM EDT Office Visit [facility] [address] [facility] [place] [phone] Lyndsay Brewer, DO [address] [place] [address] documented as of this encounter [...] 1 Cap by mouth 2 times daily. Reorder 03/15/2019 04/04/2019 documented as of this encounter Care Teams Refinery Operator Light Ends Recovery Relationship Specialty Start Date End Date Michelle Garrido APRN PCP - General Nurse Practitioner 01/09/17 01/14/21 documented as of this encounter
--- OUTSIDE RECORDS SUMMARY | 2024-05-29 15:48 | XMS_ITS | Encounter Summary ---
Author Organization [place] [address] Care Team Providers Care Dye House Helper Name Role Phone Michelle Garrido APRN Primary Care Provider Unava ilable Reason for Visit * Reason Onset Date Comments Medication Refill 04/12/2019 Medication Refill 04/15/2019 Encounter Details Date Type Department Care Team (Late st Contact Info) Description 04/12/2019 Refill [facility] [address] [place] [address] Michelle Garrido APRN Medication Refill; [...] of Assessment Author No 07/11/2017 9:14 AM AIMEE Choi Riya sosa Jose, ESTEFANY * Because of a physical, mental or emotional condition, does this person have difficulty doing errands alone such as visiting a doctor's office or shopping? Answer Date of Assessment Author No 07/11/2017 9:14 AM AIMEE Choi Riya blasyobani ESTEFANY Garcia documented as of this encounter Mental Status * Because of a physical, mental or emotional condition, does this person have serious difficulty concentrating, remembering or making decisions? Answer Entry Date Author No 07/11/2017 9:14 AM AIMEE Choi Riya blasyobani ESTEFANY Garcia documented in this encounter Miscellaneous Notes * Telephone Encounter - Farzana Garrido MA - 04/15/2019 5:23 PM EDT Verbal from Michelle, having issues E-scribing it. She asked me to phone it in. Phoned in. * Telephone Encounter - Farzana Garrido MA - 04/12/2019 10:28 AM EDT DENZEL: as expected 03/18/19 LRF 03/18/19 GUS 04/04/19 documented in this encounter Plan of Treatment Upcoming Encounters Date Type Department Care Team (Late st Contact Info) Description 06/28/2024 9:40 AM EST Clinical Support [facility] [address] [employer] [place], [place] [address] 11/19/2024 1:40 PM EDT Office Visit [facility] Neurology [facility] [address] [place] [address] Lyndsay Brewer DO [address] [place] [address] documented as of this encounter Goals [...] syndrome documented in this encounter Care Teams Dye House Helper Relationship Specialty Start Date End Date Michelle Garrido APRN PCP - General Nurse Practitioner 01/09/17 01/14/21 documented as of this encounter
--- OUTSIDE RECORDS SUMMARY | 2024-05-29 15:48 | XMS_ITS | Encounter Summary ---
Author Organization [place] [address] Care Team Providers Care Supervisor Instrument Mechanics Name Role Phone Michelle Garrido APRN Primary Care Provider Unava ilable Reason for Visit * Reason Onset Date Comments Central Patient Navigator Outreach 04/02/2019 Annual Wellness Questionnaire Encounter Details Date Type Department Care Team (Late st Contact Info) Description 04/02/2019 Patient Outreach [facility] [address] [place] [phone] Michelle Garrido APRN Central Patient Navigator Outreach (Annual Wellness Questionnaire) Social History Tobacco Use Types Packs/Day Years [...] Riya Pérez RMA documented in this encounter Progress Notes * Sonia Tucker RMA - 04/02/2019 12:21 PM EDT Patient Outreach: Pre-Visit Questionnaires and Care Gap Outreach Attempt Count: 1 Care Gaps Addressed director clinical applications: Medicare Questionnaire and Colorectal Cancer Screening Outcome: patient declined documented in this encounter Plan of Treatment Upcoming Encounters Date Type Department Care Team (Late st Contact Info) Description 06/28/2024 9:40 AM EST Clinical Support [facility] [address] [place] [address] 11/19/2024 1:40 PM EDT Office Visit [facility] Neurology [facility] [address] [place] [address] Lyndsay Brewer DO [address] [facility] [address] [place] [address] documented as of this encounter [...] on filedocumented in this encounter Care Teams Supervisor Instrument Mechanics Relationship Specialty Start Date End Date Michelle Garrido APRN PCP - General Nurse Practitioner 01/09/17 01/14/21 documented as of this encounter
--- OUTSIDE RECORDS SUMMARY | 2024-05-29 15:48 | XMS_ITS | Encounter Summary ---
Author Organization [place] [address] Care Team Providers Care Orthopedic Assistant Name Role Phone Michelle Garrido APRN Primary Care Provider Unava ilable Reason for Visit * Reason Onset Date Comments Medication Refill 03/18/2019 VIBERZI 100 mg Oral [id number] Tab02/15/2019 Encounter Details Date Type Department Care Team (Late Contact Info) Description 03/18/2019 Telephone [facility] [address] [place] [address] Michelle Garrido APRN Medication Refill (VIBERZI 100 mg Oral [id number] Tab02/15/2019) Social History Tobacco Use Types Packs/Day Years [...] EST Choi, Ch ristina G, RMA * Does this person have difficulty dressing or bathing? Answer Date of Assessment Author No 07/11/2017 9:14 AM AIMEE Choi Riya sosa Jose, RMA * Because of a physical, mental or emotional condition, does this person have difficulty doing errands alone such as visiting a doctor's office or shopping? Answer Date of Assessment Author No 07/11/2017 9:14 AM AIMEE Choi Riya blasyobani Jose RMA documented as of this encounter Mental Status * Because of a physical, mental or emotional condition, does this person have serious difficulty concentrating, remembering or making decisions? Answer Entry Date Author No 07/11/2017 9:14 AM AIMEE Choi Riya sosa Jose, RMA documented in this encounter Miscellaneous Notes * Telephone Encounter - Farzana Garrido MA - 03/18/2019 3:53 PM EDT DENZEL: as expected 03/18/19 LRF 02/15/19 GUS 02/07/19 * Telephone Encounter - Arron Kennedy - 03/18/2019 3:31 PM EDT Medication Refill Who is requesting the refill: pt Medication(s)Name/Dosage/Frequency: VIBERZI 100 mg Oral Tablet 60 Tab 0 02/15/2019 Sig: TAKE 1 TABLET BY MOUTH TWICE A DAY Sent to pharmacy as: Viberzi 100 mg tablet Notes to Pharmacy: Not to exceed 5 additional fills before 07/03/2019. E-Prescribing Status: Receipt confirmed by pharmacy (02/15/2019 12:37 PM EDT) Did patient contact the pharmacy first: Yes pt was at the pharmacy when he called How many days left on hand: 0 Future appt date w/ prescribing provider: no Pharmacy & Location: [facility] documented in this encounter Plan of Treatment Upcoming Encounters Date Type Department Care Team (Late st Contact Info) Description 06/28/2024 9:40 AM EST Clinical Support [facility] [address] [facility] [place] [address] 11/19/2024 1:40 PM EDT Office Visit [facility] [address] [place] [address] Lyndsay Brewer, [address] [place] [address] documented as of this encounter [...] on filedocumented in this encounter Care Teams Orthopedic Assistant Relationship Specialty Start Date End Date Michelle Garrido APRN PCP - General Nurse Practitioner 01/09/17 01/14/21 documented as of this encounter
--- OUTSIDE RECORDS SUMMARY | 2024-05-29 15:48 | XMS_ITS | Encounter Summary ---
Author Organization [place] [address] Care Team Providers Care Lace Paper Machine Operator Name Role Phone Michelle Garrido APRN Primary Care Provider Unava ilable Reason for Visit * Reason Comments Medication Refill Encounter Details Date Type Department Care Team (Late st Contact Info) Description 07/18/2019 Refill [facility] [address] [place] [address] Michelle Garrido APRN Medication Refill [...] MOUTH TWICE A DAY 60 Tab 07/19/2019 08/26/2019 albuterol (VENTOLIN HFA) 90 mcg/actuation Inhl HFA Aerosol InhalerIndications :Encounter for medication refill INHALE 1 TO 2 PUFFS EVERY 4 HOURS NEEDED FOR WHEEZING. 54 Inhaler 2 07/19/2019 03/03/2020 documented in this encounter Miscellaneous Notes * Telephone Encounter - Maddy White RMA - 07/19/2019 10:41 AM EST LV 07/03/19 LF 06/24/19 Dejon: 07/19/2019 as expected. [id number] documented in this encounter Plan of Treatment Upcoming Encounters Date Type Department Care Team (Late st Contact Info) Description 06/28/2024 9:40 AM EST Clinical Support [facility] [address] [employer] [place] [address] 11/19/2024 1:40 PM EDT Office Visit [facility] Neurology [facility] [address] [place] [address] Lyndsay Brewer DO [address] [place] [address] documented as of this encounter [...] for medication refill Issue of repeat prescriptions Irritable bowel syndrome with diarrhea Irritable bowel syndrome documented in this encounter Discontinued Medications Medication Sig Discontinue Reason Start Date End Da te albuterol (VENTOLIN HFA) 90 mcg/actuation Inhl HFA Aerosol InhalerIndications:Encou nter for medication refill USE 1 OR 2 PUFFS EVERY 4 HOURS NEEDED FOR WHEEZING. 10/04/2018 07/19/2019 VIBERZI 100 mg Oral TabletIndications:Irrita ble bowel syndrome with diarrhea TAKE 1 TABLET BY MOUTH TWICE A DAY 06/24/2019 07/19/2019 documented as of this encounter Care Teams Lace Paper Machine Operator Relationship Specialty Start Date End Date Michelle Garrido APRN PCP - General Nurse Practitioner 01/09/17 01/14/21 documented as of this encounter
--- OUTSIDE RECORDS SUMMARY | 2024-05-29 15:48 | XMS_ITS | Encounter Summary ---
Author Organization [place] [address] Care Team Providers Care Manager Fashion Name Role Phone Michelle Garrido APRN Primary Care Provider Unava ilable Reason for Visit * Reason Comments Medication Refill Encounter Details Date Type Department Care Team (Late st Contact Info) Description 06/29/2019 Refill [facility] [address] [place] [address] Michelle Garrido APRN Medication Refill [...] Refills Last Filled Start Date End Date tadalafil (CIALIS) 5 mg Oral TabletIndications: BPH without urinary obstruction TAKE 1 TAB BY MOUTH NEEDED. FOR ERECTILE DYSFUNCTION 90 Tab 1 07/01/2019 0 documented in this encounter Plan of Treatment Upcoming Encounters Date Type Department Care Team (Late st Contact Info) Description 06/28/2024 9:40 AM EST Clinical Support [facility] [address] [place] [address] 11/19/2024 1:40 PM EDT Office Visit [facility] Neurology [facility] [address] [place] [address] Lyndsay Brewer DO [address] [place] [address] documented as of this encounter [...] by mouth as needed. for erectile dysfunction 12/26/2018 07/01/2019 documented as of this encounter Care Teams Manager Fashion Relationship Specialty Start Date End Date Michelle Garrido APRN PCP - General Nurse Practitioner 01/09/17 01/14/21 documented as of this encounter
--- OUTSIDE RECORDS SUMMARY | 2024-05-29 15:48 | XMS_ITS | Encounter Summary ---
Author Organization [place] [address] Care Team Providers Care Cotton Tipper Name Role Phone Michelle Garrido APRN Primary Care Provider Unava ilable Reason for Visit * Reason Comments Medication Refill Encounter Details Date Type Department Care Team (Late st Contact Info) Description 04/07/2019 Refill [facility] [address] [place] [address] Michelle Garrido APRN Medication Refill [...] TABLET BY MOUTH EVERY DAY 90 Tab 04/08/2019 9 hydroCHLOROthiazid e (MICROZIDE) 12.5 mg Oral Capsule TAKE 1 CAPSULE BY MOUTH EVERY DAY 90 Cap 04/08/2019 9 documented in this encounter Plan of Treatment Upcoming Encounters Date Type Department Care Team (Late st Contact Info) Description 06/28/2024 9:40 AM EST Clinical Support [facility] [place] [address] [place] [address] 11/19/2024 1:40 PM EDT Office Visit [facility] Neurology [facility] [address] [place] [address] Lyndsay Brewer [address] [place] [address] documented as of this encounter [...] te hydroCHLOROthiazide (MICROZIDE) 12.5 mg Oral Capsule Take 1 Cap by mouth daily. Reorder 01/08/2019 04/07/2019 losartan (COZAAR) 50 mg Oral Tablet Take 1 Tab by mouth daily. Reorder 01/08/2019 04/07/2019 documented as of this encounter Care Teams Cotton Tipper Relationship Specialty Start Date End Date Michelle Garrido APRN PCP - General Nurse Practitioner 01/09/17 01/14/21 documented as of this encounter
--- OUTSIDE RECORDS SUMMARY | 2024-05-29 15:48 | XMS_ITS | Encounter Summary ---
Author [place] [address] Care Team Providers Care Outbound Sales Consultant Name Role Phone Hema Michelle Anusha KENT Primary Care Provider Unava ilable Reason for Visit * Reason Comments Other spot on lip Encounter Details Date Type Department Care Team (Late st Contact Info) Description 02/07/2019 3:45 PM EDT Office Visit 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 Answer Date of Assessment Author No 07/11/2017 9:14 AM AIMEE Riya Choi, RMA * Is the person blind or does he/she have serious difficulty seeing even when wearing glasses? Answer Date of Assessment Author No 07/11/2017 9:14 AM AIMEE Choi Riya Garcia, RMA * Does this person have serious difficulty walking or climbing stairs? Answer Date of Assessment Author No 07/11/2017 9:14 AM AIMEE Riya Choi, RMA * Does this person have difficulty dressing or bathing? Answer Date of Assessment Author No 07/11/2017 9:14 AM AIMEE Riya Choi, RMA * Because of a physical, mental [...] Date Author No 07/11/2017 9:14 AM AIMEE Riya Choi, RMA documented in this encounter Progress Notes * Brian Hickman MD - 02/07/2019 3:45 PM EDT Vitals: 02/07/19 1552 BP: 130/80 Pulse: 79 Temp: 97.4 ??F (36.3 ??C) TempSrc: Oral SpO2: 95% Weight: 191 lb (86.6 kg) Height: 5' 7 (1.702 m) SUBJECTIVE: Chief Complaint Patient presents with ??? Other spot on lip Patient c/o a spot on his lower lip. He was building a deck a week ago. He was holding screws in mouth and accidentally poked his lip. Some skin pulled off of his lip when he woke up the next morning. He says the spot is gradually getting worse. He has tried antibiotic ointment, lip balm, peroxide.Nothing is helping. Review of Systems Constitutional: Negative. HENT: Negative. Eyes: Negative. Respiratory: Negative. Cardiovascular: Negative. Gastrointestinal: Negative. Musculoskeletal: Negative. Skin: Negative. Neurological: Negative. Psychiatric/Behavioral: Negative. OBJECTIVE: Physical Exam Constitutional: He appears well-developed and well-nourished. HENT: 8 mm open area on the center on the lower lip. Neurological: He is alert. Assessment Diagnoses and all orders for this visit: Lip lesion Continue lip balm or vaseline. If lesion does not heal over the next 1-2 weeks he needs to contact me. 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 [address] [place] [address] Lyndsay Brewer DO [address] [place] [address] documented as of this encounter Goals Goal Patient Goal Type Associated Problems Recent Progress Patient-Stated? Author Blood Pressure < 140/90 Blood Pressure 134/84(2023 1:16 PM EST) No Yana Choi RMA Eat better, exercise, reach an ideal body weight General No Yana Choi RMA Stay Tobacco Free Lifestyle No Yana Choi RMA documented as of this encounter Visit Diagnoses Diagnosis Lip lesion- Primary Diseases of lips assistant research scientist Tobacco use disorder documented in this encounter Discontinued Medications Medication Sig Discontinue Reason Start Date End Da te celecoxib (CELEBREX) 200 mg Oral CapsuleIndications:Osteoar thritis of multiple joints, unspecified osteoarthritis type TAKE 1 CAPSULE BY MOUTH TWICE A DAY NEEDED Patient refused 12/26/2018 02/07/2019 fluticasone (FLONASE) 50 mcg/actuation Nasl [place], SuspensionIndications:Seas onal allergic rhinitis due to other allergic trigger USE 1 SPRAY INTO EACH NOSTRIL EVERY DAY Patient refused 07/11/2018 02/07/2019 loratadine (CLARITIN) 10 mg Oral TabletIndications:Seasonal allergic rhinitis due to other allergic trigger Take 1 Tab by mouth daily. Patient refused 03/22/2018 02/07/2019 lidocaine (LIDODERM) 5 % Top Adhesive Patch, Medicated Place 1 Patch onto the skin daily. Apply for 12 hours, remove for 12 hours, then apply new patch Patient refused 01/05/2019 02/07/2019 Saccharomyces boulardii (FLORASTOR) 250 mg Oral CapsuleIndications:Abscess of right leg,Abscess of left leg Take 1 Cap by mouth 2 times daily. Patient refused 12/28/2018 02/07/2019 documented as of this encounter Historical Medications * This list may reflect changes made after this encounter. celecoxib (CELEBREX) 200 mg Oral Capsule Take 200 mg by mouth 2 times daily. 03/15/2019 added in this encounter Care Teams Outbound Sales Consultant Relationship Specialty Start Date End Date Michelle Garrido APRN PCP - General Nurse Practitioner 01/09/17 01/14/21 documented as of this encounter
--- OUTSIDE RECORDS SUMMARY | 2024-05-29 15:48 | XMS_ITS | Encounter Summary ---
Author Organization [place] [address] Care Team Providers Care Lodging Facilities Attendant Name Role Phone Michelle Garrido APRN Primary Care Provider Willie ilvito Encounter Details Date Type Department Care Team (Late st Contact Info) Description 04/16/2019 Orders Only [facility] [address] [place] [address] Michelle Garrido APRN Elevated BUN (Primary Dx) Social History Tobacco Use Types [...] AM EST Clinical Support ANTOLIN [address] [place] [address] 11/19/2024 1:40 PM EDT Office Visit [facility] Neurology [facility] [address] [place] [address] Lyndsay Brewer DO [address] [place] [address] documented as of this encounter Goals Goal Patient Goal Type Associated Problems Recent Progress Patient-Stated? Author Blood Pressure < 140/90 Blood Pressure 134/84(2023 1:16 PM EST) No Yana Choi RMA Eat better, exercise, reach an ideal body weight General No Yana Choi RMA Stay Tobacco Free Lifestyle No Yana Choi RMA documented as of this encounter Results * (ABNORMAL) BASIC METABOLIC [...] 07/03/2019 4:28 PM EST [facility] Anion Gap 14 7 - 16 mmol/L 07/03/2019 4:28 PM EST [facility] Calcium 9.9 8.6 - 10.4 mg/dL 07/03/2019 4:28 PM EST [facility] Glucose Lvl 99 74 - 100 mg/dL 07/03/2019 4:28 PM EST [facility] BUN 21(H) 6 - 20 mg/dL 07/03/2019 4:28 PM EST [facility] Creatinine 0.96 0.67 - 1.30 mg/dL 07/03/2019 4:28 PM EST [facility] GFR Afr Am 105 >=60 mL/min/1.7 3 m2 07/03/2019 4:28 PM EST [facility] GFR Non Afr Am 91 >=60 mL/min/1.7 3 m2 07/03/2019 4:28 PM EST [facility] Comment: This estimated GFR was [...] ORDERABLES Final R esult [facility] [address] [facility] , [place] [address] [facility] [address] [place] [address] documented in this encounter Visit Diagnoses Diagnosis Elevated BUN- Primary Other abnormal blood chemistry documented in this encounter Care Teams Lodging Facilities Attendant Relationship Specialty Start Date End Date Michelle Garrido APRN PCP - General Nurse Practitioner 01/09/17 01/14/21 documented as of this encounter
--- OUTSIDE RECORDS SUMMARY | 2024-05-29 15:48 | XMS_ITS | Encounter Summary ---
Author [place] [address] Care Team Providers Care [employer] Anchor Name Role Phone Michelle Garrido APRN Primary Care Provider Unava ilable Reason for Visit * Reason Comments Medicare Annual Wellness Encounter Details Date Type Department Care Team (Latest Contact Info) Description 04/15/2019 2:00 PM EDT [facility] [address] [place] [address] Michelle Garrido APRN Medicare annual wellness visit, subsequent (Primary Dx); Primary osteoarthritis of both knees; Malaise and fatigue Social History Tobacco Use Types Packs/Day Years [...] Sign Reading Time Taken Comments Blood Pressure 126/86 04/15/2019 2:11 PM EDT Pulse 84 04/15/2019 2:11 PM EDT Temperature 36.7 ??C (98 ??F) 04/15/2019 2:11 PM EDT Respiratory Rate - - Oxygen Saturation 95% 04/15/2019 2:11 PM EDT Inhaled Oxygen Concentration - - Weight 89.4 kg (197 lb) 04/15/2019 2:11 PM EDT Height 170.2 cm (5' 7 ) 04/15/2019 2:11 PM EDT Body Mass Index 30.85 04/15/2019 2:11 PM EDT documented in this encounter Functional [...] this encounter Progress Notes * Michelle Garrido, RADIO TECHNICIAN - 04/15/2019 2:00 PM EDT Vitals: 04/15/19 1411 BP: 126/86 Pulse: 84 Temp: 98 ??F (36.7 ??C) TempSrc: Oral SpO2: 95% Weight: 197 lb (89.4 kg) Height: 5' 7 (1.702 m) SUBJECTIVE: Chief Complaint Patient presents with ??? Medicare Annual Wellness HPI: Medicare Wellness Assessment Flowsheet Version: Mr. Whitlock is a 53 y.o. male here for an Subsequent Annual Medicare Wellness Assessment. Below are the results from wellness category assessments administered throughout the year compiled for review as part of today's assessment. Pt is not fasting for BW. Pt would like bilateral knee injections. Pt would like B12 injection. Fall Risk Assessment Has the patient had [...] bathroom?: (!) No Does the patient have handrails for all inside or outside stairs?: (!) No (no stairs) Does the patient have stairs [...] Activities of Daily Living Limitations: No issues Activities of Daily Living Assistive Device Assessment Assistive Devices: Eyeglasses Osteoporosis Screening Assessment Has the patient had a DEXA scan in the past 2 years?: Not applicable (male) Abnormal Pains Assessment Excluding what you would [...] require both.) AD-8 Dementia Screening tool results Mini Cog Dementia Screening tool results No exam data present Results for orders placed or performed in visit on 04/15/19 CBC WITH DIFF Result Value Ref Range WBC 9.4 3.7 - 10.3 x10(3)/mcL RBC 4.62 4.60 - 6.10 x10(6)/mcL Hgb 14.7 13.7 - 17.5 g/dL Hct 44.7 40.0 - 51.0 % MCV 96.8 80.0 - 100.0 fL MCH 31.8 26.0 - 34.0 pg MCHC 32.9 30.7 - 35.5 g/dL RDW 12.8 <=14.9 % Platelet 188 155 - 369 x10(3)/mcL MPV 10.6 8.8 - 12.5 fL Neut Percent 67.2 % Imm Gran% 0.6 % Lymph Percent 23.9 % [place] Percent 7.1 % Eos Percent 0.9 % Baso Percent 0.3 % Neut # 6.3 (H) 1.6 - 6.1 x10(3)/mcL IMMGRAN# 0.1 0.0 - 0.1 x10(3)/mcL Lymph # 2.2 1.2 - 3.9 x10(3)/mcL [place] # 0.7 0.3 - 0.9 x10(3)/mcL Eos# 0.1 0.0 - 0.5 x10(3)/mcL Baso # 0.0 0.0 - 0.1 x10(3)/mcL COMPREHENSIVE METABOLIC PANEL Result Value Ref Range Sodium 140 136 - 145 mmol/L Potassium 4.2 3.5 - 5.0 mmol/L Chloride 106 98 - 107 mmol/L Total CO2 24 22 - 29 mmol/L Anion Gap 10 7 - 16 mmol/L Calcium 10.0 8.6 - 10.4 mg/dL Glucose Lvl 93 74 - 100 mg/dL BUN 28 (H) 6 - 20 mg/dL Creatinine 1.10 0.67 - 1.30 mg/dL Albumin 4.6 3.5 - 5.2 gm/dL Total Protein 7.0 6.4 - 8.3 gm/dL Bili Total 0.2 0.1 - 1.4 mg/dL ALT 30 <=41 IU/L AST 26 <=40 IU/L Alk Phos 91 40 - 129 IU/L GFR Afr Am 89 >=60 mL/min/1.73 m2 GFR Non Afr Am 77 >=60 mL/min/1.73 m2 LIPID PANEL REFLEX Result Value Ref Range Cholesterol 209 (H) <=200 mg/dL Triglyceride 221 (H) <=150 mg/dL HDL 50 >=40 mg/dL LDL Calculated 115 (H) <=100 mg/dL Non-HDL-C Calculated 159 (H) <=129 mg/dL Fasting Specimen? No None TSH REFLEX Result Value Ref Range TSH Reflex 0.867 0.270 - 4.200 mcIU/mL Narrative Ingestion of john doses of biotin (>5 mg/day) taken within 8 hours of drawing blood sample can interfere with this immunoassay test. Patient Active Problem List Diagnosis ??? Hip pain, left ??? Essential hypertension ??? Eczema ??? OA (osteoarthritis) ??? Asthma ??? EPHRAIM (generalized anxiety disorder) ??? Bipolar disorder in remission (HCC) ??? BPH with urinary obstruction ??? Status post left hip replacement ??? Irritable bowel syndrome with diarrhea ??? 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 Arthritis [...] [facility]; Service: Orthopedics ??? JOINT REPLACEMENT left hip ??? KNEE SURGERY both ??? TOTAL HIP ARTHROPLASTY Left 2009 Allergies Allergen Reactions ??? Abilify [Aripiprazole] Other (See Comments) convulsions ??? Unable To Assess Patient does not take any narcotic medications Current Outpatient Medications on File Prior to Visit Medication Sig Dispense Refill ??? acetaminophen (TYLENOL) 500 mg Oral Tablet Take 500 mg by mouth every 4 hours as needed for Pain. ??? albuterol (PROVENTIL) 5 mg/mL Inhl Solution for Nebulization Take 5 mg/hr by nebulization continuous. 40 mL 2 ??? albuterol (VENTOLIN HFA) 90 mcg/actuation Inhl HFA Aerosol Inhaler USE 1 OR 2 PUFFS EVERY 4 HOURS NEEDED FOR WHEEZING. 54 Inhaler 2 ??? celecoxib (CELEBREX) 200 mg Oral Capsule Take 1 Cap by mouth 2 times daily. 60 Cap 0 ??? eluxadoline (VIBERZI) 100 mg Oral Tablet Take 1 Tab by mouth 2 times daily. 60 Tab 0 ??? fluticasone propion-salmeterol (ADVAIR DISKUS) 500-50 mcg/dose Inhl Disk with Device Inhale 1 Puff into the lungs 2 times daily. 120 Each 2 ??? hydroCHLOROthiazide (MICROZIDE) 12.5 mg Oral Capsule TAKE 1 CAPSULE BY MOUTH EVERY DAY 90 Cap 0 ??? losartan (COZAAR) 50 mg Oral Tablet TAKE 1 TABLET BY MOUTH EVERY DAY 90 Tab 0 ??? Nebulizer Accessories (ALL FLOW 4000 KIT) Misc Formulary equivalent 1 Each 0 ??? Nebulizers (SANG BABY NEBULIZER) Misc Formulary equivalent 1 Each 0 ??? predniSONE (DELTASONE) 5 mg Oral Tablet Take 4 Tabs by mouth daily for 4 days, THEN 3 Tabs daily for 4 days, THEN 2 Tabs daily for 4 days, THEN 1 Tab daily for 4 days. 40 Tab 0 ??? tadalafil (CIALIS) 5 mg Oral Tablet Take 1 Tab by mouth as needed. for erectile dysfunction 90 Tab 1 ??? tiZANidine (ZANAFLEX) 4 mg Oral Tablet Take 1 Tab by mouth 3 times daily. 90 Tab 2 ??? metroNIDAZOLE (METROGEL) 0.75 % Top Gel Apply topically 2 times daily. (Patient not taking: Reported on 04/15/2019) 70 g 0 No current facility-administered medications on file prior to visit. Social History Socioeconomic History ??? Marital status: Spouse name: None ??? Number of children: None ??? Years of education: None ??? Highest education level: None Tobacco Use ??? Smoking status: Never Smoker ??? Smokeless tobacco: Current User Types: Snuff Substance and Sexual Activity ??? Alcohol use: No ??? 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 Diabetes Mother ??? Heart Disease Mother ??? High Blood Pressure Mother ??? High Cholesterol Mother ??? Cancer Father 40 stomach ??? Diabetes Sister ??? No Known Problems Brother ??? Diabetes Maternal Grandmother Immunization History Administered Date(s) Administered ??? Influenza Patient Reported 04/21/2010 ??? Influenza Vaccine Quadrivalent 03/10/2016, 05/29/2017, 03/20/2018 ??? Influenza Vaccine, Unspecified Formulation 03/18/2019 ??? PPD Test 12/20/2010 ??? Pneumococcal Polysaccharide 23 Valent 04/21/2010, 03/10/2016 ??? Tdap 12/26/2018 ??? Zoster Recombinant 11/28/2017, 06/21/2018 Health Maintenance Topic Date Due ??? Colon Cancer Screening: Colonoscopy 11/10/2017 ??? Annual Wellness Exam 04/15/2020 ??? Influenza Vaccine Completed ??? Pneumococcal Vaccine 0-64 Completed Health Maintenance Due Topic Date Due ??? Colon Cancer Screening: Colonoscopy 11/10/2017 Patient Care Team: Michelle Garrido APRN as PCP - General (Nurse Practitioner) Additional issues addressed today: Review of Systems Constitutional: Positive for fatigue. Negative for chills and fever. HENT: Negative for congestion, ear pain, rhinorrhea, sinus pressure and sore throat. Respiratory: Negative for cough, shortness of breath and wheezing. Cardiovascular: Negative for chest pain. Gastrointestinal: Negative for abdominal pain, diarrhea, nausea and vomiting. Endocrine: Negative for polydipsia, polyphagia and polyuria. Psychiatric/Behavioral: Positive for sleep disturbance. Negative for dysphoric mood, self-injury and suicidal ideas. The patient is not nervous/anxious. OBJECTIVE: Physical Exam Constitutional: Appearance: He is well-developed. HENT: Head: Normocephalic. Right Ear: External ear normal. Left Ear: External ear normal. Eyes: Conjunctiva/sclera: Conjunctivae normal. Pupils: Pupils are equal, round, and reactive to light. Neck: Musculoskeletal: Neck supple. Cardiovascular: Rate and Rhythm: Normal rate and regular rhythm. Heart sounds: Normal heart sounds. No murmur. Pulmonary: Effort: Pulmonary effort is normal. No respiratory distress. Breath sounds: Normal breath sounds. No wheezing or rales. Abdominal: General: Bowel sounds are normal. There is no distension. Palpations: Abdomen is soft. There is no mass. Tenderness: There is no tenderness. Musculoskeletal: Normal range of motion. Lymphadenopathy: Cervical: No cervical adenopathy. Skin: General: Skin is warm and dry. Neurological: Mental Status: He is alert and oriented to person, place, and time. Cranial Nerves: No cranial nerve deficit. Psychiatric: Behavior: Behavior normal. Assessment Diagnoses and all orders for this visit: Medicare annual wellness visit, subsequent - CBC WITH DIFF; Future - COMPREHENSIVE METABOLIC PANEL; Future - LIPID PANEL REFLEX; Future - TSH REFLEX; Future Primary osteoarthritis of both knees - OR ARTHROCENTESIS ASPIR&/INJ MAJOR JT/BURSA W/O US - OR ARTHROCENTESIS ASPIR&/INJ MAJOR JT/BURSA W/O US - methylPREDNISolone acetate (DEPO-Medrol) injection 40 mg - methylPREDNISolone acetate (DEPO-Medrol) injection 40 mg Malaise and fatigue - cyanocobalamin injection 1,000 mcg A steroid injection was performed at bilateral kneesusing sterile technique with lateral approach with 1% plain Lidocaine and 40 mg of Depo-medrol in each knee. This was well tolerated. * Milly Dasilva - 04/15/2019 2:00 PM EDT Left antecubital. 1 mint, 1 purple documented in this encounter Plan of Treatment Upcoming Encounters Date Type Department Care Team (Late st Contact Info) Description 06/28/2024 9:40 AM EST Clinical Support [facility] [place] [address] [place] [address] 11/19/2024 1:40 PM EDT Office Visit [facility] [address] [place] [address] Lyndsay Brewer DO [address] [place] [address] Scheduled Orders Name Type Priority Associated Diagnoses Orde r Schedule OR ARTHROCENTESIS ASPIR&/INJ MAJOR JT/BURSA W/O US OR Charge Routine Primary osteoarthritis of both knees Ordered: 04/17/2019 OR ARTHROCENTESIS ASPIR&/INJ MAJOR JT/BURSA W/O US OR Charge Routine Primary osteoarthritis of both knees Ordered: 04/17/2019 documented as of this encounter Goals Goal [...] Associated Diagnosis Comments LIPID PANEL REFLEX Routine 04/15/2019 2: 53 PM EDT Medicare annual wellness visit, subsequent TSH REFLEX Routine 04/15/2019 2:53 PM EDT Medicare annual wellness visit, subsequent CBC WITH DIFF Routine 04/15/2019 2:53 PM EDT Medicare annual wellness visit, subsequent COMPREHENSIVE METABOLIC PANEL Routine 04/15/2019 2:53 PM EDT Medicare annual wellness visit, subsequent documented in this encounter Results * TSH REFLEX (04/15/2019 2:53 PM EDT) TSH Reflex 0.867 0.270 - 4.200 mcIU/mL 04/15/2019 7:57 PM EDT [facility] Blood Venipuncture / Unknown 04/15/2019 2:53 PM EDT 04/15/2019 2:53 PM EDT Narrative [facility] - 04/15/2019 7:57 PM EDT Ingestion of john doses of biotin (>5 mg/day) taken within 8 hours of drawing blood sample can interfere with this immunoassay test. us Michelle Garrido APRN CHEMISTRY ORDERABLES Final R esult [facility] [address] [facility] , [place] [address] * (ABNORMAL) LIPID PANEL REFLEX (04/15/2019 2:53 PM EDT) Cholesterol 209(H) <=200 mg/dL 04/15/2019 7:57 PM EDT [facility] Comment: < 200 ?Desirable 200 - 239 ? Borderline High >= 240 ?High Triglyceride 221(H) <=150 mg/dL 04/15/2019 7:57 PM EDT [facility] Comment: < 150 ? Normal 150 - 199 ?Borderline High 200 - 499 ?High ??>= 500 ? Very High HDL 50 >=40 mg/dL 04/15/2019 7:57 PM EDT [facility] Comment: ??> 60 ?Optimal 40 - 60 ?Acceptable ?? < 40 ?Low LDL Calculated 115(H) <=100 mg/dL 04/15/2019 7:57 PM EDT [facility] Non-HDL-C Calculated 159(H) <=129 mg/dL 04/15/2019 7:57 PM EDT [facility] Comment: <130 ?Desirable 130-159 Above Desirable 160-189 Borderline High 190-219 High >= 220 ??Very High Fasting Specimen? No None 019 7:57 PM EDT [facility] Blood Venipuncture / Unknown 04/15/2019 2:53 PM EDT 04/15/2019 2:53 PM EDT Michelle Garrido APRN CHEMISTRY ORDERABLES Final R esult [facility] [address] [facility] , [address] [place] [id number] * (ABNORMAL) COMPREHENSIVE METABOLIC PANEL (04/15/2019 2:53 PM EDT) Sodium 140 136 - 145 mmol/L 04/15/2019 7:57 PM EDT [facility] Potassium 4.2 3.5 - 5.0 mmol/L 04/15/2019 7:57 PM EDT [facility] Chloride 106 98 - 107 mmol/L 04/15/2019 7:57 PM EDT [facility] Total CO2 24 22 - 29 mmol/L 04/15/2019 7:57 PM EDT [facility] Anion Gap 10 7 - 16 mmol/L 04/15/2019 7:57 PM EDT [facility] Calcium 10.0 8.6 - 10.4 mg/dL 04/15/2019 7:57 PM EDT [facility] Glucose Lvl 93 74 - 100 mg/dL 04/15/2019 7:57 PM EDT [facility] BUN 28(H) 6 - 20 mg/dL 04/15/2019 7:57 PM EDT [facility] Creatinine 1.10 0.67 - 1.30 mg/dL 04/15/2019 7:57 PM EDT [facility] Albumin 4.6 3.5 - 5.2 gm/dL 04/15/2019 7:57 PM EDT [facility] Total Protein 7.0 6.4 - 8.3 gm/dL 04/15/2019 7:57 PM EDT [facility] Bili Total 0.2 0.1 - 1.4 mg/dL 04/15/2019 7:57 PM EDT [facility] ALT 30 <=41 IU/L 04/15/2019 7:57 PM EDT [facility] AST 26 <=40 IU/L 04/15/2019 7:57 PM EDT [facility] Alk Phos 91 40 - 129 IU/L 04/15/2019 7:57 PM EDT [facility] GFR Afr Am 89 >=60 mL/min/1.7 3 m2 04/15/2019 7:57 PM EDT [facility] GFR Non Afr Am 77 >=60 mL/min/1.7 3 m2 04/15/2019 7:57 PM EDT [facility] Comment: This estimated GFR was calculated [...] in nutritional status or muscle mass. Blood Venipuncture / Unknown 04/15/2019 2:53 PM EDT 04/15/2019 2:53 PM EDT us Michelle Garrido RADIO TECHNICIAN CHEMISTRY ORDERABLES Final R esult [facility] [address] [facility] , [address] [place] [phone] [facility] [address] [place] [address] * (ABNORMAL) CBC WITH DIFF (04/15/2019 2:53 PM EDT) WBC 9.4 3.7 - 10.3 x10(3)/mcL 04/15/2019 7:27 PM EDT [facility] RBC 4.62 4.60 - 6.10 x10(6)/mcL 04/15/2019 7:27 PM EDT [facility] Hgb 14.7 13.7 - 17.5 g/dL 04/15/2019 7:27 PM EDT [facility] Hct 44.7 40.0 - 51.0 % 04/15/2019 7:27 PM EDT [facility] MCV 96.8 80.0 - 100.0 fL 04/15/2019 7:27 PM EDT [facility] MCH 31.8 26.0 - 34.0 pg 04/15/2019 7:27 PM EDT [facility] MCHC 32.9 30.7 - 35.5 g/dL 04/15/2019 7:27 PM EDT [facility] RDW 12.8 <=14.9 % 04/15/2019 7:27 PM EDT [facility] Platelet 188 155 - 369 x10(3)/mcL 04/15/2019 7:27 PM EDT [facility] MPV 10.6 8.8 - 12.5 fL 04/15/2019 7:27 PM EDT [facility] Neut Percent 67.2 % 04/15/2019 7:27 PM EDT [facility] Comment:Neutrophils equals s egs plus bands Imm Gran% 0.6 % 04/15/2019 7:27 PM EDT [facility] Comment:Automated count of m etamyelocytes, myelocytes and promyelocytes. Lymph Percent 23.9 % 04/15/2019 7:27 PM EDT [facility] [place] Percent 7.1 % 04/15/2019 7:27 PM EDT [facility] Eos Percent 0.9 % 04/15/2019 7:27 PM EDT [facility] Baso Percent 0.3 % 04/15/2019 7:27 PM EDT [facility] Neut # 6.3(H) 1.6 - 6.1 x10(3)/mcL 04/15/2019 7:27 PM EDT [facility] Comment:Neutrophils equals s egs plus bands IMMGRAN# 0.1 0.0 - 0.1 x10(3)/mcL 04/15/2019 7:27 PM EDT [facility] Comment:Automated count of m etamyelocytes, myelocytes and promyelocytes. An absolute IG <0.1 is reported as 0.0. Lymph # 2.2 1.2 - 3.9 x10(3)/mcL 04/15/2019 7:27 PM EDT [facility] [place] # 0.7 0.3 - 0.9 x10(3)/mcL 04/15/2019 7:27 PM EDT [facility] Eos# 0.1 0.0 - 0.5 x10(3)/mcL 04/15/2019 7:27 PM EDT [facility] Baso # 0.0 0.0 - 0.1 x10(3)/mcL 04/15/2019 7:27 PM EDT [facility] Blood Venipuncture / Unknown 04/15/2019 2:53 PM EDT 04/15/2019 2:53 PM EDT us Michelle Garrido RADIO TECHNICIAN HEMATOLOGY ORDERABLES Final Result [facility] [address] [facility] , [place] [address] documented in this encounter Visit Diagnoses Diagnosis Medicare annual wellness visit, subsequent- Primary Routine general medical examination at a health care facility Primary osteoarthritis of both knees Primary localized osteoarthrosis, lower leg Malaise and fatigue Other malaise and fatigue documented in this encounter Administered Medications Inactive Administered Medications - up to 1 most recent administrations Medication Order MAR Action Action Date Dose Rate Site cyanocobalamin injection 1,000 mcg 1,000 mcg, Intramuscular, ONCE, 1 dose, On 04/15/19 at 1445, Dx: 1. Malaise and fatigueIndications:Malais e and fatigue Given 04/15/2019 2:40 PM EDT 1,000 mcg Left Deltoid documented in this encounter Discontinued Medications Medication Sig Discontinue Reason Start Date End Da te multivitamin Oral Capsule Take 1 Cap by mouth daily. DELETE-Therapy completed 04/15/2019 documented as of this encounter Orders Medications Ordered That Tone ht Not Have Been Administered Count Last Ordered Date First Ordered Date methylPREDNISolone acetate ( DEPO-Medrol) injection 40 mg 2 04/17/2019 documented in this encounter Care Teams [employer] Anchor Relationship Specialty Start Date End Date Michelle Garrido APRN PCP - General Nurse Practitioner 01/09/17 01/14/21 documented as of this encounter
--- OUTSIDE RECORDS SUMMARY | 2024-05-29 15:48 | XMS_ITS | Encounter Summary ---
Author Organization [place] [address] Care Team Providers Care Deli Bakery Clerk Name Role Phone Michelle Garrido APRN Primary Care Provider Unava ilable Reason for Visit * Reason Onset Date Comments Medication Refill Medication Refill 05/08/2019 Encounter Details Date Type Department Care Team (Late st Contact Info) Description 05/02/2019 Refill [facility] [address] [place] [address] Michelle Garrido APRN Medication Refill; [...] times daily. 180 Cap 1 05/08/2019 0 celecoxib (CELEBREX) 200 mg Oral Capsule TAKE 1 CAPSULE BY MOUTH TWICE A DAY 60 Cap 5 05/02/2019 9 documented in this encounter Miscellaneous Notes * Telephone Encounter - Farzana Garrido MA - 05/08/2019 12:22 PM EST Pt informed * Addendum Note - Farzana Garrido MA - 05/08/2019 12:22 PM ESTAddended by: FARZANA GARRIDO on: 05/08/2019 12:22 PM Modules accepted: Orders * Telephone Encounter - Farzana Garrido MA - 05/08/2019 12:21 PM EST Sent 90 day supply. * Telephone Encounter - Paras Sparrow - 05/08/2019 11:35 AM EST Pt calling in regards to his rx for celecoxib (CELEBREX) 200 mg Oral Capsule [[id number]]. Pt statesPCP always sent his rx in for a 90 day supply, due to insurance, his rx's are a cheaper when getting a 3 month supply rather than a 1 month supply. Pt states he went to pickling grader his CELEBREX and therewas only a 1 month supply. Pt is requesting if PCP could send a new script in for a 3 month supply. Pt has also requested if PCP could make sure all of his other medications, other than any controlled medications, to be called in for a 3 month supply in the future when medications are due. Pt has requested a call back at the earliest convenience. Please Advise documented in this encounter Plan of Treatment Upcoming Encounters Date Type Department Care Team (Late st Contact Info) Description 06/28/2024 9:40 AM EST Clinical Support [facility] [place] [address] [place] [address] 11/19/2024 1:40 PM EDT Office Visit [facility] [address] [facility] [place] [address] Lyndsay Brewer DO [address] [place] [address] documented as of this encounter [...] Cap by mouth 2 times daily. Reorder 04/04/2019 05/02/2019 celecoxib (CELEBREX) 200 mg Oral Capsule TAKE 1 CAPSULE BY MOUTH TWICE A DAY Reorder 05/02/2019 05/08/2019 documented as of this encounter Care Teams Deli Bakery Clerk Relationship Specialty Start Date End Date Michelle Garrido, YOLI PCP - General Nurse Practitioner 01/09/17 01/14/21 documented as of this encounter
--- OUTSIDE RECORDS SUMMARY | 2024-05-29 15:48 | XMS_ITS | Encounter Summary ---
Author Organization [place] [address] Care Team Providers Care Cover Cutter Machine Name Role Phone Michelle Garrido APRN Primary Care Provider Unava ilable Reason for Visit * Reason Onset Date Comments Medication Management 03/15/2019 Celebrex Encounter Details Date Type Department Care Team (Late st Contact Info) Description 03/15/2019 Telephone [facility] [address] [place] [address] Michelle Garrido APRN Medication Management (Celebrex) Social History Tobacco Use Types Packs/Day Years [...] Author No 07/11/2017 9:14 AM Riya Pérez RMNikki * Because of a physical, mental or [...] Riya Pérez ESTEFANY documented in this encounter Miscellaneous Notes * Telephone Encounter - Katie Lutz RMA - 03/15/2019 1:47 PM EDT Done * Telephone Encounter - Ira Roberts ABR-OE - 03/15/2019 12:44 PM EDT Patient called and stated he did not refuse the continuation of his medication for : celecoxib (CELEBREX) 200 mg Oral Capsule (Discontinued) 180 Cap 1 12/26/2018 02/07/2019 Sig: TAKE 1 CAPSULE BY MOUTH TWICE A DAY NEEDED Sent to pharmacy as: celecoxib 200 mg capsule Reason for Discontinue: Patient refused He needs a refill sent into : [id number] [place] [address] [address] [facility] [phone] documented in this encounter Plan of Treatment Upcoming Encounters Date Type Department Care Team (Late st Contact Info) Description 06/28/2024 9:40 AM EST Clinical Support [facility] [place] [address] [place], [place] [address] 11/19/2024 1:40 PM EDT Office Visit [facility] Neu[facility] [address] [place] [address] Lyndsay Brewer DO [address] [place] [address] documented as of this encounter Goals Goal [...] on filedocumented in this encounter Care Teams Cover Cutter Machine Relationship Specialty Start Date End Date Michelle Garrido APRN PCP - General Nurse Practitioner 01/09/17 01/14/21 documented as of this encounter
--- OUTSIDE RECORDS SUMMARY | 2024-05-29 15:48 | XMS_ITS | Encounter Summary ---
Author Organization [place] [address] Care Team Providers Care Gluing Machine Operator Automatic Name Role Phone Michelle Garrido APRN Primary Care Provider Unava ilable Reason for Visit * Reason Comments Medication Refill Encounter Details Date Type Department Care Team (Late st Contact Info) Description 05/14/2019 Refill [facility] [address] [place] [address] Michelle Garrido APRN Medication Refill [...] BY MOUTH TWICE A DAY 60 Tab 05/14/2019 06/24/2019 documented in this encounter Miscellaneous Notes * Telephone Encounter - Maddy White RMA - 05/14/2019 12:38 PM EST DENZEL: as expected 03/18/19 LF: 03/18/19 LV: 04/15/19 documented in this encounter Plan of Treatment Upcoming Encounters Date Type Department Care Team (Late st Contact Info) Description 06/28/2024 9:40 AM EST Clinical Support [facility] [address] [place] [phone] 11/19/2024 1:40 PM EDT Office Visit SEP Neurology [facility] [address] [place] [address] Lyndsay Brewer DO [address] [place] [address] documented as of this encounter [...] Discontinue Reason Start Date End Da te eluxadoline (VIBERZI) 100 mg Oral TabletIndications:Irritab le bowel syndrome with diarrhea Take 1 Tab by mouth 2 times daily. Reorder 03/18/2019 05/14/2019 documented as of this encounter Care Teams Gluing Machine Operator Automatic Relationship Specialty Start Date End Date Michelle Garrido, YOLI PCP - General Nurse Practitioner 01/09/17 01/14/21 documented as of this encounter
--- OUTSIDE RECORDS SUMMARY | 2024-05-29 15:48 | XMS_ITS | Encounter Summary ---
Author Organization [place] [address] Care Team Providers Care Disaster Recovery Coordinator Name Role Phone Michelle Garrido APRN Primary Care Provider Unava ilable Reason for Visit * Reason Onset Date Comments ED Follow-Up Call 01/09/2019 Encounter Details Date Type Department Care Team (Late st Contact Info) Description 01/09/2019 Patient Outreach [facility] [address] [place] [phone] Love Kulkarni RN ED Follow-Up Call Social History Tobacco Use Types [...] of Assessment Author No 07/11/2017 9:14 AM Ryia Pérez RMA * Is the person blind [...] documented in this encounter Progress Notes * Love Kulkarni RN - 01/10/2019 8:54 AM EDT ED Follow Up Regarding the most recent emergency room visit: Number of ED visits in last year: 2 Contact made?: Yes (Comment: Currently working) If no, did you leave a message?: Yes Medical reason for visit: Strain of left trapezius muscle Do you feel the staff kept you informed during your visit?: Yes Have your symptoms improved since your ED visit?: Yes Did you get a prescription, or were your medications changed?: Yes Did you get it filled?: Yes If patient is unable to fill medications, please consider a social work consult if criteria met: * Love Kulkarni RN - 01/09/2019 1:47 PM EDT ED Follow Up Regarding the most recent emergency room visit: Number of ED visits in last year: 2 Contact made?: No If no, did you leave a message?: Yes Medical reason for visit: Strain of left trapezius muscle If patient is unable to fill medications, please consider a social work consult if criteria met: documented in this encounter Plan of Treatment Upcoming Encounters Date Type Department Care Team (Late st Contact Info) Description 06/28/2024 9:40 AM EST Clinical Support [facility] [address] [place] [phone] 11/19/2024 1:40 PM EDT Office Visit SEP Neurology [facility] [address] [place] [phone] Lyndsay Brewer, DO [address] [place] [address] documented as of this encounter [...] on filedocumented in this encounter Care Teams Disaster Recovery Coordinator Relationship Specialty Start Date End Date Michelle Garrido APRN PCP - General Nurse Practitioner 01/09/17 01/14/21 documented as of this encounter
--- OUTSIDE RECORDS SUMMARY | 2024-05-29 15:48 | XMS_ITS | Encounter Summary ---
Author [place] [address] Care Team Providers Care English Language Learner Teacher Name Role Phone Michelle Garrido APRN Primary Care Provider Unava ilable Reason for Visit * Reason Comments Dizziness Encounter Details Date Type Department Care Team (Late st Contact Info) Description 08/05/2019 4:40 PM EST Office Visit [facility] [address] [place] [phone] Shaheed Riley, DO [address] [place] [address] Dizziness (Primary Dx); Benign paroxysmal positional vertigo, unspecified laterality; High risk medications (not anticoagulants) long-term use; Malaise and fatigue Social History Tobacco Use [...] Sign Reading Time Taken Comments Blood Pressure 160/100 08/05/2019 4:29 PM EST Pulse 72 08/05/2019 4:29 PM EST Temperature 37.1 ??C (98.8 ??F) 08/05/2019 4:29 PM ES T Respiratory Rate - - Oxygen Saturation 97% 08/05/2019 4:29 PM EST Inhaled Oxygen Concentration - - Weight 89.8 kg (198 lb) 08/05/2019 4:29 PM EST Height 170.2 cm (5' 7 ) 08/05/2019 4:29 PM EST Body Mass Index 31.01 08/05/2019 4:29 PM EST documented in this encounter Functional [...] 8:15 AM EST Maddy White ESTEFANY documented as of this encounter Mental Status * Because of a physical, mental or emotional condition, does this person have serious difficulty concentrating, remembering or making decisions? Answer Entry Date Author No 07/03/2019 8:15 AM AIMEE Maddy White ESTEFANY documented in this encounter Ordered Prescriptions Prescription Sig Dispense Quantity Refills Last Filled Start Date End Date meclizine (ANTIVERT) 25 mg Oral TabletIndications:D izziness,Benign paroxysmal positional vertigo, unspecified laterality Take 1 Tab by mouth every 6 hours. 60 Tab 08/05/2019 07/26/2021 documented in this encounter Progress Notes * Shaheed Riley DO - 08/05/2019 4:40 PM EST Vitals: 08/05/19 1629 BP: (!) 160/100 Pulse: 72 Temp: 98.8 ??F (37.1 ??C) TempSrc: Oral SpO2: 97% Weight: 198 lb (89.8 kg) Height: 5' 7 (1.702 m) SUBJECTIVE: Chief Complaint Patient presents with ??? Dizziness Patient c/o dizziness, fatigue and shakiness x 4 days. He had diarrhea yesterday which is slowing down today but he still feels nauseas. He started taking Turmeric and Garlic supplements a few weeks ago, he is not sure if it is related to his symptoms. Review of Systems OBJECTIVE: Physical Exam Vitals signs and nursing note reviewed. Constitutional: Appearance: He is well-developed. HENT: Head: Normocephalic and atraumatic. Comments: Head thrust elicited symptoms. No deviation of skew, no changing nystagmus Right Ear: Tympanic membrane normal. Left Ear: Tympanic membrane normal. Eyes: Pupils: Pupils are equal, round, and reactive to light. Neck: Musculoskeletal: Normal range of motion. Thyroid: No thyromegaly. Trachea: No tracheal deviation. Cardiovascular: Rate and Rhythm: Normal rate and regular rhythm. Heart sounds: No murmur. Pulmonary: Effort: Pulmonary effort is normal. Breath sounds: Normal breath sounds. Abdominal: General: Bowel sounds are normal. Palpations: Abdomen is soft. Tenderness: There is no abdominal tenderness. Skin: General: Skin is warm. Neurological: Mental Status: He is alert and oriented to person, place, and time. Assessment Diagnoses and all orders for this visit: Dizziness - meclizine (ANTIVERT) 25 mg Oral Tablet; Take 1 Tab by mouth every 6 hours. Dispense: 60 Tab; Refill: 0 - POCT EKG - CBC WITH DIFF; Future - COMPREHENSIVE METABOLIC PANEL; Future - TSH REFLEX; Future Benign paroxysmal positional vertigo, unspecified laterality - meclizine (ANTIVERT) 25 mg Oral Tablet; Take 1 Tab by mouth every 6 hours. Dispense: 60 Tab; Refill: 0 - POCT EKG High risk medications (not anticoagulants) long-term use - CBC WITH DIFF; Future - COMPREHENSIVE METABOLIC PANEL; Future Malaise and fatigue - TSH REFLEX; Future Orthostatics were negative. HINTs exam consistent with peripheral lesion. EKG without any acute abnormalities or correlation of palpitations to vertigo symptoms. Most likely BPPV. Will trial meclizine. documented in this encounter Plan of Treatment Upcoming Encounters Date Type Department Care Team (Late st Contact Info) Description 06/28/2024 9:40 AM EST Clinical Support [facility] [address] [place] [phone] 11/19/2024 1:40 PM EDT Office Visit SEP Neurology [facility] [address] [place] [address] Lyndsay Brewer DO [address] [place] [address] documented as of this [...] Name Priority Date/Time Associated Diagnosis Comments POCT EKG Routine 08/05/2019 5:20 PM EST Dizziness Benign paroxysmal positional vertigo, unspecified laterality documented in this encounter Results * TSH REFLEX (08/06/2019 10:03 AM EST) TSH Reflex 1.620 0.270 - 4.200 mcIU/mL 08/06/2019 3:48 PM EST [facility] Blood VENOUS BLOOD / Unknown Venipuncture / Unknown 08/06/2019 10:03 AM EST 08/06/2019 10:03 AM EST Narrative [facility] - 08/06/2019 3:48 PM EST Ingestion of john doses of biotin (>5 mg/day) taken within 8 hours of drawing blood sample can interfere with this immunoassay test. us Shaheed Riley DO CHEMISTRY ORDERABLES Final Res ult [facility] [address] [facility] , [place] [address] * COMPREHENSIVE METABOLIC PANEL (08/06/2019 10:03 AM EST) Sodium 141 136 - 145 mmol/L 08/06/2019 3:48 PM EST [facility] Potassium 3.8 3.5 - 5.0 mmol/L 08/06/2019 [...] 08/06/2019 3:48 PM EST [facility] GFR Afr Am 83 >=60 mL/min/1.7 3 m2 08/06/2019 3:48 PM EST [facility] GFR Non Afr Am 72 >=60 mL/min/1.7 3 m2 08/06/2019 3:48 PM [facility] Comment: This estimated GFR was [...] AM EST 08/06/2019 10:03 AM EST Shaheed Riley DO CHEMISTRY ORDERABLES Final Res ult [facility] [address] [facility], [place] [address] [facility] [address] [place] [address] * CBC WITH DIFF (08/06/2019 10:03 AM EST) WBC 7.0 3.7 - 10.3 x10(3)/mcL 08/06/2019 [...] 3:26 PM EST [facility] MPV 10.6 8.8 - 12.5 fL 08/06/2019 3:26 PM EST [facility] Neut Percent 69.8 % 08/06/2019 3:26 PM EST [facility] Comment:Neutrophils equals s egs plus bands Imm Gran% 0.4 % 08/06/2019 3:26 PM EST [facility] Comment:Automated count of m etamyelocytes, myelocytes and promyelocytes. Lymph Percent 21.7 % 08/06/2019 3:26 PM EST [facility] Gladwin Percent 6.7 % 08/06/2019 3:26 PM EST [facility] Eos Percent 1.1 % 08/06/2019 3:26 PM EST [facility] Baso Percent 0.3 % 08/06/2019 3:26 PM EST [facility] Neut # 4.9 1.6 - 6.1 x10(3)/mcL 08/06/2019 3:26 PM EST [facility] Comment:Neutrophils equals s egs plus bands IMMGRAN# 0.0 0.0 - 0.1 x10(3)/mcL 08/06/2019 3:26 PM EST [facility] Comment:Automated count of m etamyelocytes, myelocytes and promyelocytes. An absolute IG <0.1 is reported as 0.0. Lymph # 1.5 1.2 - 3.9 x10(3)/mcL 08/06/2019 3:26 PM EST [facility] Gladwin # 0.5 0.3 - 0.9 x10(3)/mcL 08/06/2019 3:26 PM EST [facility] Eos# 0.1 0.0 - 0.5 x10(3)/mcL 08/06/2019 3:26 PM EST [facility] Baso # 0.0 0.0 - 0.1 x10(3)/mcL 08/06/2019 3:[address] [facility] Blood VENOUS BLOOD / Unknown Venipuncture / Unknown 08/06/2019 10:03 AM EST 08/06/2019 10:03 AM EST us Shaheed Riley DO HEMATOLOGY ORDERABLES Final Re sult [facility] [address] [facility] , [place] [address] * POCT EKG (08/05/2019 5:20 PM EST) 08/05/2019 5:20 PM EST Impressions SEP OFFICE - 08/05/2019 5:20 PM EST nsr Shaheed Riley DO POINT OF CARE CARDIOLOGY Final Result SEP OFFICE documented in this encounter Visit Diagnoses Diagnosis Dizziness- Primary Dizziness and giddiness Benign paroxysmal positional vertigo, unspecified laterality High risk medications (not anticoagulants) long-term use Encounter for long-term (current) use of other medications Malaise and fatigue Other malaise and fatigue documented in this encounter Historical Medications * This list may reflect changes made after this encounter. Garlic Oral Tablet Take by mouth daily. 01/15/2021 TURMERIC ORAL Take by mouth daily. 01/15/2021 added in this encounter Care Teams English Language Learner Teacher Relationship Specialty Start Date End Date Michelle Garrido APRN PCP - General Nurse Practitioner 01/09/17 01/14/21 documented as of this encounter
--- OUTSIDE RECORDS SUMMARY | 2024-05-29 15:48 | XMS_ITS | Encounter Summary ---
Author Organization [place] [address] Care Team Providers Care Master Certified Rv Technician Name Role Phone Michelle Garrido APRN Primary Care Provider Unava ilable Reason for Visit * Reason Comments Medication Refill Encounter Details Date Type Department Care Team (Late st Contact Info) Description 06/20/2019 Refill [facility] [address] [place] [address] Michelle Garrido APRN Medication Refill [...] Assessment Author No 04/15/2019 2:06 PM EDT Jnae Garrido MA * Is the person blind [...] BY MOUTH TWICE A DAY 60 Tab 06/24/2019 07/19/2019 documented in this encounter Miscellaneous Notes * Telephone Encounter - Rosalina Shi - 06/24/2019 3:10 PM EST Pt calling on this refill * Telephone Encounter - Hermila Donnelly MA - 06/21/2019 2:44 PM EST Last OV: 04/15/2019 DENZEL: as expected 03/18/19 documented in this encounter Plan of Treatment Upcoming Encounters Date Type Department Care Team (Late st Contact Info) Description 06/28/2024 9:40 AM EST Clinical Support [facility] [address] [place] [phone] 11/19/2024 1:40 PM EDT Office Visit SEP Neurology [facility] [address] [place] [address] Lyndsay Brewer, DO [address] [place] [address] documented as of this encounter [...] 1 TABLET BY MOUTH TWICE A DAY 05/14/2019 06/24/2019 documented as of this encounter Care Teams Master Certified Rv Technician Relationship Specialty Start Date End Date Michelle Garrido APRN PCP - General Nurse Practitioner 01/09/17 01/14/21 documented as of this encounter
--- OUTSIDE RECORDS SUMMARY | 2024-05-29 15:48 | XMS_ITS | Encounter Summary ---
Author Organization [place] [address] Care Team Providers Care Campus Chaplain Name Role Phone Michelle Garrido APRN Primary Care Provider Unava ilable Reason for Visit * Reason Onset Date Comments Medication Refill 07/18/2019 losartan (COZA AR) 50 mg Oral Tablet [[id number] Encounter Details Date Type Department Care Team (Late Contact Info) Description 07/18/2019 Refill [facility] [address] [place] [address] Michelle Garrido APRN Medication Refill (losartan (COZAAR) 50 mg Oral Tablet [[id number]) Social History Tobacco Use Types Packs/Day Years [...] Date losartan (COZAAR) 50 mg Oral Tablet Take 1 Tab by mouth daily. 90 Tab 07/18/2019 10/15/2019 documented in this encounter Miscellaneous Notes * Telephone Encounter - Katie Lutz RMA - 07/18/2019 1:34 PM EST Sent * Telephone Encounter - Rosalina Shi - 07/18/2019 12:47 PM EST Medication Refill Who is requesting the refill: Patient losartan (COZAAR) 50 mg Oral Tablet [[id number] Did patient contact the pharmacy first: No (reminded pt that contacting the pharmacy first can result in a quicker refill turnaround since they can electronically send the request to the Provider How many days left on hand: 3 Future appt date w/ prescribing provider:none Pharmacy & Location: Merged with [facility] Additional Notes: documented in this encounter Plan of Treatment Upcoming Encounters Date Type Department Care Team (Late st Contact Info) Description 06/28/2024 9:40 AM EST Clinical Support [facility] [place] [address] [place] [phone] 11/19/2024 1:40 PM EDT Office Visit SEP Neurology [facility] [address] [facility] [place] [address] Lyndsay Brewer DO [address] [place] [address] documented as of this [...] 1 TABLET BY MOUTH EVERY DAY Reorder 06/24/2019 07/18/2019 documented as of this encounter Care Teams Campus Chaplain Relationship Specialty Start Date End Date Michelle Garrido APRN PCP - General Nurse Practitioner 01/09/17 01/14/21 documented as of this encounter
--- OUTSIDE RECORDS SUMMARY | 2024-05-29 15:48 | XMS_ITS | Encounter Summary ---
Author Organization [place] [address] Care Team Providers Care Aviation Technician Name Role Phone Michelle Garrido APRN Primary Care Provider Unava ilable Reason for Visit * Reason Comments Medication Refill Encounter Details Date Type Department Care Team (Late st Contact Info) Description 07/23/2019 Refill [facility] [address] [email or web address] [address] Michelle Garrido APRN Medication Refill [...] TWICE A DAY 120 Each 2 07/23/2019 02/03/2020 documented in this encounter Plan of Treatment Upcoming Encounters Date Type Department Care Team (Late st Contact Info) Description 06/28/2024 9:40 AM EST Clinical Support [facility] [place] [address] [place] [phone] 11/19/2024 1:40 PM EDT Office Visit SEP Neurology [facility] [address] [place] [address] Lyndsay Brewer DO [address] [place] [address] documented as of this encounter [...] Reason Start Date End Da te fluticasone propion-salmeterol (ADVAIR DISKUS) 500-50 mcg/dose Inhl Disk with DeviceIndications:Encoun ter for medication refill Inhale 1 Puff into the lungs 2 times daily. 01/09/2019 07/23/2019 documented as of this encounter Care Teams Aviation Technician Relationship Specialty Start Date End Date Michelle Garrido, SHUCKER PCP - General Nurse Practitioner 01/09/17 01/14/21 documented as of this encounter
--- OUTSIDE RECORDS SUMMARY | 2024-05-29 15:48 | XMS_ITS | Encounter Summary ---
Author Organization [facility] [place] [address] Care Team Providers Care Communications Director Name Role Phone Michelle Garrido APRN Primary Care Provider Unava ilable Encounter Details Date Type Department Care Team (Latest Contact Info) Description 08/05/2019 Travel Social History Tobacco Use Types Packs/Day [...] AM EST Clinical Support [facility] [address] [email or web address] [place] [phone] 11/19/2024 1:40 PM EDT Office Visit SEP Neurology [facility] [address] [place] [address] Lyndsay rBewer DO [address] [place] [address] documented as of [...] on filedocumented in this encounter Care Teams Communications Director Relationship Specialty Start Date End Date Michelle Garrido APRN PCP - General Nurse Practitioner 01/09/17 01/14/21 documented as of this encounter
--- OUTSIDE RECORDS SUMMARY | 2024-05-29 15:49 | XMS_ITS | Encounter Summary ---
Author Organization [place] [address] Care Team Providers Care Traveling Operator Name Role Phone Michelle Garrido APRN Primary Care Provider Unava ilable Reason for Visit * Reason Comments Cough Congestion Encounter Details Date Type Department Care Team (Late st Contact Info) Description 09/10/2018 10:15 AM EDT Office Visit [facility] [address] [place] [address] Michelle Garrido APRN Viral URI with cough (Primary Dx); Malaise and fatigue Social History Tobacco Use [...] Sign Reading Time Taken Comments Blood Pressure 126/72 09/10/2018 10:21 AM EDT Pulse 79 09/10/2018 10:21 AM EDT Temperature 36.8 ??C (98.3 ??F) 09/10/2018 10:21 AM E DT Respiratory Rate - - Oxygen Saturation 95% 09/10/2018 10:21 AM EDT Inhaled Oxygen Concentration - - Weight 88.5 kg (195 lb) 09/10/2018 10:21 AM EDT Height 172.7 cm (5' 8 ) 09/10/2018 10:21 AM EDT Body Mass Index 29.65 09/10/2018 10:21 AM EDT documented in this encounter Functional [...] Refills Last Filled Start Date End Date benzonatate (TESSALON) 200 mg Oral CapsuleIndications :Viral URI with cough Take 1 Cap by mouth 3 times daily as needed for Cough for up to 10 days. 30 Cap 09/10/2018 09/20/2018 documented in this encounter Progress Notes * Michelle Garrido, FIELD RADIO OPERATOR - 09/10/2018 10:15 AM EDT Vitals: 09/10/18 1021 BP: 126/72 Pulse: 79 Temp: 98.3 ??F (36.8 ??C) TempSrc: Oral SpO2: 95% Weight: 195 lb (88.5 kg) Height: 5' 8 (1.727 m) Chief Complaint Patient presents with ??? Cough ??? Congestion HPI: URI/Sinus symptoms: ?? complains of congestion, sore throat, post nasal drip, productive cough and chills for 1 days. ?? Associated symptoms include hoarse. ?? Symptom severity is described as Moderate and show no change. ?? What treatments have you tried at home? Cough drops ?? Are home treatments impacting your symptoms at all? no ?? Do you get recurrent or seasonal symptoms multiple times per year? no ?? Do you have any history of lung disease, asthma, or recurrent allergies? no ?? The Patient does not smoke cigarettes. Pt started with ST, dry cough and chills yesterday. Now having sinus drainage and nasal discharge. No fever when he checked his temperature. Nephew was sick last week. Pt went to chiropractor who recommended B12. Pt requests vit B12 injection due to fatigue. Review of Systems Constitutional: Positive for chills. Negative for fever. HENT: Positive for postnasal drip and sore throat. Negative for congestion, ear pain, rhinorrhea, sinus pain, sinus pressure and trouble swallowing. Respiratory: Positive for cough (dry). Negative for shortness of breath and wheezing. Gastrointestinal: Negative for diarrhea, nausea and vomiting. Physical Exam Constitutional: He appears well-developed and well-nourished. HENT: Head: Normocephalic. Right Ear: Tympanic membrane and external ear normal. Left Ear: Tympanic membrane and external ear normal. Nose: Nose normal. Right sinus exhibits no maxillary sinus tenderness and no frontal sinus tenderness. Left sinus exhibits no maxillary sinus tenderness and no frontal sinus tenderness. Mouth/Throat: Oropharynx is clear and moist. No oropharyngeal exudate, posterior oropharyngeal edema or posterior oropharyngeal erythema. Eyes: Pupils are equal, round, and reactive to light. Conjunctivae are normal. Neck: Neck supple. Cardiovascular: Normal rate, regular rhythm, normal heart sounds and intact distal pulses. No murmur heard. Pulmonary/Chest: Effort normal and breath sounds normal. No respiratory distress. He has no wheezes. He has no rales. Lymphadenopathy: He has no cervical adenopathy. Skin: Skin is warm and dry. See time date stamps in the EMR for other pertinent history components reviewed as part of today's encounter. PCMH Documentation PCMH Flowsheet was not completed/reviewed as part of today's visit. Educated patient regarding the diagnosis, medication/treatment, goals, self- management tools and instructions based on their care plan. They verbalized understanding of the education given on the After Visit Summary [AVS] for today's visit. A copy of the AVS was provided either in writing and/or via [employer]. A new medicine was prescribed during this office visit. I did discuss the reason for prescribing this new medication. I also informed of possible likely side effects, but also encouraged them to readthe medication insert that will accompany their prescription and encouraged them to discuss any questions about the insert with their pharmacist. I instructed them to call if having side effects or possible allergic reaction after taking. I also discussed the risk of stopping the medication or deviating from prescribing instructions. Dosing instructions are present on the AVS and they are aware. I inquired of any questions and answered accordingly. Assessment Diagnoses and all orders for this visit: Viral URI with cough - benzonatate (TESSALON) 200 mg Oral Capsule; Take 1 Cap by mouth 3 times daily as needed for Coughfor up to 10 days. Dispense: 30 Cap; Refill: 0 Malaise and fatigue - cyanocobalamin injection 1,000 mcg; Inject 1 mL into the muscle once. documented in this encounter Miscellaneous Notes * Patient Instructions - Michelle Garrido APRN - 09/10/2018 10:46 AM EDT Images from the original note were not included. Patient Education Viral Respiratory Infection A respiratory infection is an illness that affects part of the respiratory system, such as the lungs, nose, or throat. Most respiratory infections are caused by either viruses or bacteria. A respiratory infection that is caused by a virus is called a viral respiratory infection. Common types of viral respiratory infections include: ?? A cold. ?? The flu (influenza). ?? A respiratory syncytial virus (RSV) infection. How do I know if I have a viral respiratory infection? Most viral respiratory infections cause: ?? A stuffy or runny nose. ?? Yellow or green nasal discharge. ?? A cough. ?? Sneezing. ?? Fatigue. ?? Achy muscles. ?? A sore throat. ?? Sweating or chills. ?? A fever. ?? A headache. How are viral respiratory infections treated? If influenza is diagnosed early, it may be treated with an antiviral medicine that shortens the length of time a person has symptoms. Symptoms of viral respiratory infections may be treated with [id number]-[id number] and prescription medicines, such as: ?? Expectorants. These make it easier to cough up mucus. ?? Decongestant nasal sprays. Health care providers do not prescribe antibiotic medicines for viral infections. This is because antibiotics are designed to kill bacteria. They have no effect on viruses. How do I know if I should stay home from work or school? To avoid exposing others to your respiratory infection, stay home if you have: ?? A fever. ?? A persistent cough. ?? A sore throat. ?? A runny nose. ?? Sneezing. ?? Muscles aches. ?? Headaches. ?? Fatigue. ?? Weakness. ?? Chills. ?? Sweating. ?? Nausea. Follow these instructions at home: ?? Rest as much as possible. ?? Take zutv-gwo-asvoqen and prescription medicines only as told by your health care provider. ?? Drink enough fluid to keep your urine clear or pale yellow. This helps prevent dehydration and helps loosen up mucus. ?? Gargle with a salt-water mixture 3-4 times per day or as needed. To make a salt-water mixture, completely dissolve ??-1 tsp of salt in 1 cup of warm water. ?? Use nose drops made from salt water to ease congestion and soften raw skin around your nose. ?? Do not drink alcohol. ?? Do not use tobacco products, including cigarettes, chewing tobacco, and e- cigarettes. If you need help quitting, ask your health care provider. Contact a health care provider if: ?? Your symptoms last for 10 days or longer. ?? Your symptoms get worse over time. ?? You have a fever. ?? You have severe sinus pain in your face or forehead. ?? The glands in your jaw or neck become very swollen. Get help right away if: ?? You feel pain or pressure in your chest. ?? You have shortness of breath. ?? You faint or feel like you will faint. ?? You have severe and persistent vomiting. ?? You feel confused or disoriented. This information is not intended to replace advice given to you by your health care provider. Make sure you discuss any questions you have with your health care provider. Document Released: 03/22/2006 Document Revised: 11/17/2016 Document Reviewed: 11/18/2015 [employer] Patient Education ?? 2018 [employer] documented in this encounter Plan of Treatment Upcoming Encounters Date Type Department Care Team (Late st Contact Info) Description 06/28/2024 9:40 AM EST Clinical Support [facility] [address] [place] [phone] 11/19/2024 1:40 PM EDT Office Visit [facility] [address] [place] [address] Lyndsay Brewer, [address] [place] [address] documented as of this encounter [...] Acute upper respiratory infections of unspecified site Malaise and fatigue Other malaise and fatigue documented in this encounter Administered Medications Inactive Administered Medications - up to 1 most recent administrations Medication Order MAR Action Action Date Dose Rate Site cyanocobalamin injection 1,000 mcg 1,000 mcg, Intramuscular, ONCE, 1 dose, On 09/10/18 at 1100, Dx: 1. Malaise and fatigueIndications:Malais e and fatigue Given 09/10/2018 10:58 AM EDT 1,000 mcg Left Deltoid documented in this encounter Care Teams Traveling Operator Relationship Specialty Start Date End Date Michelle Garrido APRN PCP - General Nurse Practitioner 01/09/17 01/14/21 documented as of this encounter
--- OUTSIDE RECORDS SUMMARY | 2024-05-29 15:49 | XMS_ITS | Encounter Summary ---
Author Organization [facility] [address] Care Team Providers Care Personnel Technician Name Role Phone Michelle Garrido APRN Primary Care Provider Unava ilable Reason for Visit * Reason Comments Medication Refill Encounter Details Date Type Department Care Team (Late st Contact Info) Description 09/03/2018 Refill [facility] [address] [place] [address] Michelle Garrido APRN Medication Refill [...] BY MOUTH TWICE A DAY 60 Tab 09/03/2018 09/04/2018 documented in this encounter Plan of Treatment Upcoming Encounters Date Type Department Care Team (Late st Contact Info) Description 06/28/2024 9:40 AM EST Clinical Support [facility] [address] [address] [place] [address] 11/19/2024 1:40 PM EDT Office Visit [facility] [address] [place] [phone] Lyndsay Brewer DO [address] [place] [address] [place] [id number] documented as of this encounter Goals Goal Patient Goal Type Associated Problems Recent Progress Patient-Stated? Author Blood Pressure < 140/90 Blood Pressure 134/84(2023 1:16 PM EST) Yana Pian RMA Eat better, exercise, reach an ideal [...] TABLET BY MOUTH TWICE A DAY Reorder 08/03/2018 09/03/2018 documented as of this encounter Care Teams Personnel Technician Relationship Specialty Start Date End Date Michelle Garrido APRN PCP - General Nurse Practitioner 01/09/17 01/14/21 documented as of this encounter
--- OUTSIDE RECORDS SUMMARY | 2024-05-29 15:49 | XMS_ITS | Encounter Summary ---
Author Organization [place] [address] Care Team Providers Care Carbon Plant Grinder Name Role Phone Michelle Garrido APRN Primary Care Provider Unava ilable Reason for Visit * Reason Comments Medication Refill Encounter Details Date Type Department Care Team (Late st Contact Info) Description 11/05/2018 Refill [facility] [address] [address] [place] [address] Michelle Garrido APRN Medication Refill [...] TAKE 1 TABLET BY MOUTH TWICE A DAY. 60 Tab 11/05/2018 12/04/2018 documented in this encounter Miscellaneous Notes * Telephone Encounter - Farzana Garrido MA - 11/05/2018 5:01 PM EDT DENZEL: as expected 08/03/18 LRF 09/04/18 GUS 09/10/18 documented in this encounter Plan of Treatment Upcoming Encounters Date Type Department Care Team (Late st Contact Info) Description 06/28/2024 9:40 AM EST Clinical Support [facility] [place] [address] [place] [address] 11/19/2024 1:40 PM EDT Office Visit [facility] [address] [place] [address] Lyndsay Brewer DO [address] [place] [address] documented as of this encounter Goals Goal Patient Goal Type Associated Problems Recent Progress Patient-Stated? Author Blood Pressure < 140/90 Blood Pressure 134/84(2023 1:16 PM EST) Yana Pina RMA Eat better, exercise, reach an ideal body weight General Yana Pina RMA Stay Tobacco Free Lifestyle No Choi, Yana G, RMA documented as of this encounter Visit Diagnoses Diagnosis Irritable bowel syndrome with diarrhea Irritable bowel syndrome documented in this encounter Discontinued Medications Medication Sig Discontinue Reason Start Date End Da te eluxadoline (VIBERZI) 100 mg Oral TabletIndications:Irritab le bowel syndrome with diarrhea Take 1 Tab by mouth 2 times daily. Reorder 09/04/2018 11/05/2018 documented as of this encounter Care Teams Carbon Plant Grinder Relationship Specialty Start Date End Date Michelle Garrido APRN PCP - General Nurse Practitioner 01/09/17 01/14/21 documented as of this encounter
--- OUTSIDE RECORDS SUMMARY | 2024-05-29 15:49 | XMS_ITS | Encounter Summary ---
Author [place] [address] Care Team Providers Care Graphic Technician Name Role Phone Michelle Garrido APRN Primary Care Provider Unava ilable Reason for Visit * Reason Comments Asthma productive cough x 8 days Encounter Details Date Type Department Care Team (Late st Contact Info) Description 11/17/2018 10:30 AM EDT Office Visit [facility] [place] Ur[facility] Care [address] [address] Ronal Alex APRN Mild intermittent asthmatic bronchitis without complication (Primary Dx); Wheezing Social History Tobacco Use Types Packs/Day Years [...] Sign Reading Time Taken Comments Blood Pressure 122/70 11/17/2018 10:28 AM EDT Pulse 83 11/17/2018 10:28 AM EDT Temperature 36.3 ??C (97.3 ??F) 11/17/2018 10:28 AM E DT Respiratory Rate 18 11/17/2018 10:28 AM EDT Oxygen Saturation 95% 11/17/2018 10:28 AM EDT Inhaled Oxygen Concentration - - Weight 86.8 kg (191 lb 6.4 oz) 11/17/2018 10:28 AM EDT Height 172.7 cm (5' 8 ) 11/17/2018 10:28 AM EDT Body Mass Index 29.1 11/17/2018 10:28 AM EDT documented in this encounter [...] Author No 07/11/2017 9:14 AM Riya Pérez RMJane documented in this encounter Ordered Prescriptions Prescription Sig Dispense Quantity Refills Last Filled Start Date End Date benzonatate (TESSALON) 200 mg Oral CapsuleIndications :Mild intermittent asthmatic bronchitis without complication Take 1 Cap by mouth 3 times daily as needed for up to 7 days. 21 Cap 11/17/2018 9 predniSONE (DELTASONE) 20 mg Oral TabletIndications: Mild intermittent asthmatic bronchitis without complication Take 2 Tabs by mouth daily for 5 days. 10 Tab 11/17/2018 9 azithromycin (ZITHROMAX) 250 mg Oral TabletIndications: Mild intermittent asthmatic bronchitis without complication Take 2 tablets (500 mg) on Day 1, followed by 1 tablet (250 mg) once daily on Days 2 through 5. 6 Tab 11/17/2018 9 documented in this encounter Progress Notes * Ronal Alex APRN - 11/17/2018 10:30 AM EDT HPI Zuhair Whitlock is a 53 y.o. male who presents with a productive cough, wheezing,and chest congestion x 8 days. Patient has a fairly long history of asthma, and states that he has been using his home albuterol nebulizers since his cough and wheezing began. He does get relief with his nebulizers, but not complete resolution of his symptoms. He does not smoke. At present, denies fever, chills, SOB, CP, or body aches. States that he has not tried any sker-sfr-[id number] medications.. Denies any other ENT or URI symptoms at present, and has had no abdominal pain, N/V/D or ST. Subjective Chief Complaint Patient presents with ??? Asthma productive cough x 8 days Patient Active Problem List Diagnosis ??? Hip pain, left ??? HTN (hypertension), malignant ??? Eczema ??? OA (osteoarthritis) ??? Asthma ??? EPHRAIM (generalized anxiety disorder) ??? Bipolar disorder in remission ([facility]) ??? BPH with urinary obstruction ??? Status post left hip replacement ??? IBS (irritable bowel syndrome) Current Outpatient Medications on File Prior to Visit Medication Sig Dispense Refill ??? acetaminophen (TYLENOL) 500 mg Oral Tablet Take 500 mg by mouth every 4 hours as needed for Pain. ??? ADVAIR DISKUS 500-50 mcg/dose Inhl Disk with Device INHALE 1 PUFF BY MOUTH 2 TIMES A DAY 120 Each 2 ??? albuterol (PROVENTIL) 5 mg/mL Inhl Solution for Nebulization Take 5 mg/hr by nebulization continuous. 40 mL 2 ??? albuterol (VENTOLIN HFA) 90 mcg/actuation Inhl HFA Aerosol Inhaler USE 1 OR 2 PUFFS EVERY 4 HOURS NEEDED FOR WHEEZING. 54 Inhaler 2 ??? celecoxib (CELEBREX) 200 mg Oral Capsule TAKE 1 CAPSULE BY MOUTH TWICE A DAY NEEDED 180 Cap 0 ??? fluticasone (FLONASE) 50 mcg/actuation Nasl [place], Suspension USE 1 SPRAY INTO EACH NOSTRIL EVERY DAY 16 mL 2 ??? loratadine (CLARITIN) 10 mg Oral Tablet Take 1 Tab by mouth daily. 90 Tab 1 ??? losartan-hydrochlorothiazide (HYZAAR) 50-12.5 mg Oral Tablet Take 1 Tab by mouth daily. 90 Tab 0 ??? metroNIDAZOLE (METROGEL) 0.75 % Top Gel Apply topically 2 times daily. 70 g 0 ??? multivitamin Oral Capsule Take 1 Cap by mouth daily. ??? Nebulizer Accessories (ALL FLOW 4000 KIT) Misc Formulary equivalent 1 Each 0 ??? Nebulizers (SANG BABY NEBULIZER) Misc Formulary equivalent 1 Each 0 ??? tadalafil (CIALIS) 5 mg Oral Tablet TAKE 1 TABLET BY MOUTH NEEDED FOR ERECTILE DYSFUNCTION 90 Tab 0 ??? tadalafil (CIALIS) 5 mg Oral Tablet Take 1 Tab by mouth as needed. for erectile dysfunction 90 Tab 0 ??? tiZANidine (ZANAFLEX) 4 mg Oral Tablet Take 1 Tab by mouth 3 times daily. 90 Tab 2 ??? VIBERZI 100 mg Oral Tablet TAKE 1 TABLET BY MOUTH TWICE A DAY. 60 Tab 0 No current facility-administered medications on file prior to visit. Social Social History Socioeconomic History ??? Marital status: Spouse name: None ??? Number of children: None ??? Years of education: None ??? Highest education level: None Occupational History ??? None Social Needs ??? Financial resource strain: None ??? Food insecurity: Worry: None Inability: None ??? Transportation needs: Medical: None Non-medical: None Tobacco Use ??? Smoking status: Never Smoker ??? Smokeless tobacco: Current User Types: Snuff Substance and Sexual Activity ??? Alcohol use: No ??? 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 Sexual activity: None Lifestyle ??? Physical activity: Days per week: None Minutes per session: None ??? Stress: None Relationships ??? Social connections: Talks on phone: None Gets together: None Attends hinduism service: None Active member of club or organization: None Attends meetings of clubs or organizations: None Relationship status: None ??? Intimate partner violence: Fear of current or ex partner: None Emotionally abused: None Physically abused: None Forced sexual activity: None Other Topics Concern ??? None Social History Narrative ??? None Family History Problem Relation Age of Onset ??? Diabetes Mother ??? Heart Disease Mother ??? High Blood Pressure Mother ??? High Cholesterol Mother ??? Cancer Father 40 stomach Immunization History Administered Date(s) Administered ??? Influenza Patient Reported 04/21/2010 ??? Influenza Vaccine Quadrivalent 03/10/2016, 05/29/2017, 03/20/2018 ??? PPD Test 12/20/2010 ??? Pneumococcal Polysaccharide 23 Valent 04/21/2010, 03/10/2016 ??? Zoster Recombinant 11/28/2017, 06/21/2018 Patient Care Team: Michelle Garrido APRN as PCP - General (Nurse Practitioner) Review of Systems Constitutional: Negative for activity change, appetite change, chills, fatigue and fever. HENT: Negative for congestion, ear pain, postnasal drip, rhinorrhea, sinus pressure, sinus pain andsore throat. Respiratory: Positive for cough and wheezing. Negative for chest tightness, shortness of breath andstridor. Cardiovascular: Negative for chest pain, palpitations and leg swelling. Gastrointestinal: Negative for abdominal pain, nausea and vomiting. Musculoskeletal: Negative for myalgias, neck pain and neck stiffness. Skin: Negative for rash. Allergic/Immunologic: Negative for environmental allergies and immunocompromised state. Neurological: Negative for dizziness, weakness, light-headedness and headaches. Hematological: Negative for adenopathy. Objective Vitals: 11/17/18 1028 BP: 122/70 BP Location: Right arm Patient Position: Sitting Pulse: 83 Resp: 18 Temp: 97.3 ??F (36.3 ??C) TempSrc: Oral SpO2: 95% Weight: 191 lb 6.4 oz (86.8 kg) Height: 5' 8 (1.727 m) Physical Exam Constitutional: He is oriented to person, place, and time. He appears well- developed and well-nourished. No distress. HENT: Head: Normocephalic and atraumatic. Right Ear: Hearing, tympanic membrane, external ear and ear canal normal. Left Ear: Hearing, tympanic membrane, external ear and ear canal normal. Nose: Nose normal. Mouth/Throat: Oropharynx is clear and moist. No oropharyngeal exudate. Eyes: Conjunctivae are normal. Right eye exhibits no discharge. Left eye exhibits no discharge. Cardiovascular: Regular rhythm and normal heart sounds. Exam reveals no gallop and no friction rub. No murmur heard. Pulmonary/Chest: Effort normal. No accessory muscle usage. No tachypnea. No respiratory distress. He has no decreased breath sounds. He has wheezes. He has no rhonchi. He has no rales. He exhibits notenderness. Bilateral end expiratory wheezing noted bilaterally. The patient received 2 DuoNeb's in the urgent care, and his wheezing almost completely subsided. He continued to breathe easily with no shortness of breath and no evidence of acute respiratory distress. Musculoskeletal: Normal range of motion. Lymphadenopathy: He has no cervical adenopathy. Neurological: He is alert and oriented to person, place, and time. Skin: Skin is warm and dry. No rash noted. He is not diaphoretic. Nursing note and vitals reviewed. No results found for this visit on 11/17/18. Assessment and Plan Zuhair was seen today for asthma. Diagnoses and all orders for this visit: Mild intermittent asthmatic bronchitis without complication - azithromycin (ZITHROMAX) 250 mg Oral Tablet; Take 2 tablets (500 mg) on Day 1, followed by 1 tablet (250 mg) once daily on Days 2 through 5. - predniSONE (DELTASONE) 20 mg Oral Tablet; Take 2 Tabs by mouth daily for 5 days. - benzonatate (TESSALON) 200 mg Oral Capsule; Take 1 Cap by mouth 3 times daily as needed for up to7 days. Wheezing - albuterol-ipratropium (DUO-NEB) 0.5 mg-3 mg(2.5 mg base)/3 mL nebulizer solution 3 mL - methylPREDNISolone sodium succinate (Solu-MEDROL) injection 125 mg - albuterol-ipratropium (DUO-NEB) 0.5 mg-3 mg(2.5 mg base)/3 mL nebulizer solution 3 mL Patient with well, nontoxic, and exhibited no evidence of respiratory distress or acute shortness of breath. He was given 2 DuoNeb's in the urgent care for asthma, and his wheezing was much improved after those treatments, and he continued to breathe easily. Is prescribed Zithromax for acute bronchitis, given 125 mg of Solu-Medrol in the urgent care, and a 5-day burst of prednisone, which she is advised not to begin for at least 24 hours from the time that he received the Solu-Medrol injection,and Tessalon for cough. The patient was advised that should he experience any shortness of breath, severe rebound wheezing,or any other severe worsening symptom that he should present to an emergency department for evaluation. Otherwise, he is advised to follow back up with his primary care provider should his symptoms persist after the course of treatment prescribed. Patient is agreeable with this plan of care, and statesthat he will abide by the aforementioned instructions. A new medicine was prescribed during this [...] I inquired of any questions and answered accordingly This chart was completed using [employer] voice recognition technology and may contain unintended errors. Educated patient regarding the care plan and instructions listed on the After Visit Summary [AVS] for today's visit. They verbalized full understanding of the care plan and instructions given on the AVS for today's visit. Ronal Alex Esq., TURBINE SUBASSEMBLER, HYDROELECTRIC PLANT OPERATOR-C * Milagros Wolf MA - 11/17/2018 10:30 AM EDT Pt was given Solu-Medrol 125 mg and Depo-Medrol 3 mL. Duo-Neb 3 mL tx were given 20 minutes apart as per Ronal Alex APRN. Pt waited 15 minutes with no adverse reactions. Pt was given discharge papers. Solu-Medrol 125 mg NDC 4812-2761-20 lot [id number] exp 09/2020 IM left upper gluteus, Solu-Medrol 125 mg 1st Duo-Neb 3 mL tx NDC 8349-8414-50 lot [id number] exp 02/2020 Oral Inhalation of 3 mL 2nd Duo-Neb 3 mL tx NDC 6557-3018-20 lot [id number] exp 02/2020 Oral Inhalation of 3 mL HCPC [id number] HCPC [id number] 11/17/2018 Milagros Wolf MA documented in this encounter Miscellaneous Notes * Patient Instructions - Ronal Alex TURBINE SUBASSEMBLER - 11/17/2018 10:30 AM EDT Images from the original note were not included. Patient Education Asthma, Adult Asthma is a long-term (chronic) condition that causes recurrent episodes in which the airways become tight and narrow. The airways are the passages that lead from the nose and mouth down into the lungs. Asthma episodes, also called asthma attacks, can cause coughing, wheezing, shortness of breath, and chest pain. The airways can also fill with mucus. During an attack, it can be difficult to breathe. Asthma attacks can range from minor to life threatening. Asthma cannot be cured, but medicines and lifestyle changes can help control it and treat acute attacks. What are the causes? This condition is believed to be caused by inherited (genetic) and environmental factors, but its exact cause is not known. There are many things that can bring on an asthma attack or make asthma symptoms worse (triggers). Asthma triggers are different for each person. Common triggers include: ?? Mold. ?? Dust. ?? Cigarette smoke. ?? Cockroaches. ?? Things that can cause allergy symptoms (allergens), such as animal dander or pollen from trees or grass. ?? Air pollutants such as household freezer unloader, wood smoke, smog, or chemical odors. ?? Cold air, weather changes, and winds (which increase molds and pollen in the air). ?? Strong emotional expressions such as crying or laughing hard. ?? Stress. ?? Certain medicines (such as aspirin) or types of medicines (such as beta-blockers). ?? Sulfites in foods and drinks. Foods and drinks that may contain sulfites include dried fruit, potato chips, and sparkling grape juice. ?? Infections or inflammatory conditions such as the flu, a cold, or inflammation of the nasal membranes (rhinitis). ?? Gastroesophageal reflux disease (GERD). ?? Exercise or strenuous activity. What are the signs or symptoms? Symptoms of this condition may occur right after asthma is triggered or many hours later. Symptoms include: ?? Wheezing. This can sound like whistling when you breathe. ?? Excessive nighttime or pediatric audiologist coughing. ?? Frequent or severe coughing with a common cold. ?? Chest tightness. ?? Shortness of breath. ?? Tiredness (fatigue) with minimal activity. How is this diagnosed? This condition is diagnosed based on: ?? Your medical history. ?? A physical exam. ?? Tests, which may include: ? Lung function studies and pulmonary studies (spirometry). These tests can evaluate the flow of air in your lungs. ? Allergy tests. ? Imaging tests, such as X-rays. How is this treated? There is no cure for this condition, but treatment can help control your symptoms. Treatment for asthma usually involves: ?? Identifying and avoiding your asthma triggers. ?? Using medicines to control your symptoms. Generally, two types of medicines are used to treat asthma: ? Controller medicines. These help prevent asthma symptoms from occurring. They are usually taken every day. ? Fast-acting reliever or rescue medicines. These quickly relieve asthma symptoms by widening the narrow and tight airways. They are used as needed and provide short-term relief. ?? Using supplemental oxygen. This may be needed during a severe episode. ?? Using other medicines, such as: ? Allergy medicines, such as antihistamines, if your asthma attacks are triggered by allergens. ? Immune medicines (immunomodulators). These are medicines that help control the immune system. ?? Creating an asthma action plan. An asthma action plan is a written plan for managing and treating your asthma attacks. This plan includes: ? A list of your asthma triggers and how to avoid them. ? Information about when medicines should be taken and when their dosage should be changed. ? Instructions about using a device called a peak flow meter. A peak flow meter measures how well the lungs are working and the severity of your asthma. It helps you monitor your condition. Follow these instructions at home: Controlling your home environment Control your home environment in the following ways to help avoid triggers and prevent asthma attacks: ?? Change your heating and air conditioning filter regularly. ?? Limit your use of fireplaces and wood stoves. ?? Get rid of pests (such as roaches and mice) and their droppings. ?? Throw away plants if you see mold on them. ?? Clean floors and dust surfaces regularly. Use unscented cleaning products. ?? Try to have someone else vacuum for you regularly. Stay out of rooms while they are being vacuumed and for a short while afterward. If you vacuum, use a dust mask from a hardware store, a double-layered or microfilter vacuum industrial cleaner bag, or a vacuum industrial cleaner with a HEPA filter. ?? Replace carpet with wood, tile, or vinyl eileen. Carpet can trap dander and dust. ?? Use allergy-proof pillows, mattress covers, and box spring covers. ?? Keep your bedroom a trigger-free room. ?? Avoid pets and keep windows closed when allergens are in the air. ?? Wash beddings every week in hot water and dry them in a dryer. ?? Use blankets that are made of polyester or cotton. ?? Clean bathrooms and shahana with bleach. If possible, have someone repaint the coyle in these rooms with mold-resistant paint. Stay out of the rooms that are being cleaned and painted. ?? Wash your hands often with soap and water. If soap and water are not available, use hand poultry boner. ?? Do not allow anyone to smoke in your home. General instructions ?? Take ilwh-egy-unbrwbv and prescription medicines only as told by your health care provider. ? Speak with your health care provider if you have questions about how or when to take the medicines. ? Make note if you are requiring more frequent dosages. ?? Do not use any products that contain nicotine or tobacco, such as cigarettes and e-cigarettes. If you need help quitting, ask your health care provider. Also, avoid being exposed to secondhand smoke. ?? Use a peak flow meter as told by your health care provider. Record and keep track of the readings. ?? Understand and use the asthma action plan to help minimize, or stop an asthma attack, without needing to seek medical care. ?? Make sure you stay up to date on your yearly vaccinations as told by your health care provider. This may include vaccines for the flu and pneumonia. ?? Avoid outdoor activities when allergen counts are high and when air quality is low. ?? Wear a ski mask that covers your nose and mouth during outdoor winter activities. Exercise indoors on cold days if you can. ?? Warm up before exercising, and take time for a cool-down period after exercise. ?? Keep all follow-up visits as told by your health care provider. This is important. Where to find more information ?? For information about asthma, turn to the Centers for Disease Control and Prevention at www.cdc.gov/asthma/faqs.htm ?? For air quality information, turn to [employer] at https://airnow.gov/ Contact a health care provider if: ?? You have wheezing, shortness of breath, or a cough even while you are taking medicine to preventattacks. ?? The mucus you cough up (sputum) is thicker than usual. ?? Your sputum changes from clear or white to yellow, green, beasley, or bloody. ?? Your medicines are causing side effects, such as a rash, itching, swelling, or trouble breathing. ?? You need to use a reliever medicine more than 2-3 times a week. ?? Your peak flow reading is still at 50-79% of your personal best after following your action planfor 1 hour. ?? You have a fever. Get help right away if: ?? You are getting worse and do not respond to treatment during an asthma attack. ?? You are short of breath when at rest or when doing very little physical activity. ?? You have difficulty eating, drinking, or talking. ?? You have chest pain or tightness. ?? You develop a fast heartbeat or palpitations. ?? You have a bluish color to your lips or fingernails. ?? You are light-headed or dizzy, or you faint. ?? Your peak flow reading is less than 50% of your personal best. ?? You feel too tired to breathe normally. Summary ?? Asthma is a long-term (chronic) condition that causes recurrent episodes in which the airways become tight and narrow. These episodes can cause coughing, wheezing, shortness of breath, and chest pain. ?? Asthma cannot be cured, but medicines and lifestyle changes can help control it and treat acute attacks. ?? Make sure you understand how to avoid triggers and how and when to use your medicines. ?? Asthma attacks can range from minor to life threatening. Get help right away if you have an asthma attack and do not respond to treatment with your usual rescue medicines. This information is not intended to replace advice given to you by your health care provider. Make sure you discuss any questions you have with your health care provider. Document Released: 06/12/2006 Document Revised: 07/17/2017 Document Reviewed: 07/17/2017 [employer] Patient Education ?? 2019 [employer]. Patient Education Acute Bronchitis, Adult Acute bronchitis is sudden (acute) swelling of the air tubes (bronchi) in the lungs. Acute bronchitis causes these tubes to fill with mucus, which can make it hard to breathe. It can also cause coughing or wheezing. In adults, acute bronchitis usually goes away within 2 weeks. A cough caused by bronchitis may lastup to 3 weeks. Smoking, allergies, and asthma can make the condition worse. Repeated episodes of bronchitis may cause further lung problems, such as chronic obstructive pulmonary disease (COPD). What are the causes? This condition can be caused by germs and by substances that irritate the lungs, including: ?? Cold and flu viruses. This condition is most often caused by the same virus that causes a cold. ?? Bacteria. ?? Exposure to tobacco smoke, dust, fumes, and air pollution. What increases the risk? This condition is more likely to develop in people who: ?? Have close contact with someone with acute bronchitis. ?? Are exposed to lung irritants, such as tobacco smoke, dust, fumes, and vapors. ?? Have a weak immune system. ?? Have a respiratory condition such as asthma. What are the signs or symptoms? Symptoms of this condition include: ?? A cough. ?? Coughing up clear, yellow, or green mucus. ?? Wheezing. ?? Chest congestion. ?? Shortness of breath. ?? A fever. ?? Body aches. ?? Chills. ?? A sore throat. How is this diagnosed? This condition is usually diagnosed with a physical exam. During the exam, your health care provider may order tests, such as chest X-rays, to rule out other conditions. He or she may also: ?? Test a sample of your mucus for bacterial infection. ?? Check the level of oxygen in your blood. This is done to check for pneumonia. ?? Do a chest X-ray or lung function testing to rule out pneumonia and other conditions. ?? Perform blood tests. Your health care provider will also ask about your symptoms and medical history. How is this treated? Most cases of acute bronchitis clear up over time without treatment. Your health care provider may recommend: ?? Drinking more fluids. Drinking more makes your mucus thinner, which may make it easier to breathe. ?? Taking a medicine for a fever or cough. ?? Taking an antibiotic medicine. ?? Using an inhaler to help improve shortness of breath and to control a cough. ?? Using a cool mist vaporizer or humidifier to make it easier to breathe. Follow these instructions at home: Medicines ?? Take [id number] and prescription medicines only as told by your health care provider. ?? If you were prescribed an antibiotic, take it as told by your health care provider. Do not stop taking the antibiotic even if you start to feel better. General instructions ?? Get plenty of rest. ?? Drink enough fluids to keep your urine pale yellow. ?? Avoid smoking and secondhand smoke. Exposure to cigarette smoke or irritating chemicals will make bronchitis worse. If you smoke and you need help quitting, ask your health care provider. Quittingsmoking will help your lungs heal faster. ?? Use an inhaler, cool mist vaporizer, or humidifier as told by your health care provider. ?? Keep all follow-up visits as told by your health care provider. This is important. How is this prevented? To lower your risk of getting this condition again: ?? Wash your hands often with soap and water. If soap and water are not available, use hand poultry boner. ?? Avoid contact with people who have cold symptoms. ?? Try not to touch your hands to your mouth, nose, or eyes. ?? Make sure to get the flu shot every year. Contact a health care provider if: ?? Your symptoms do not improve in 2 weeks of treatment. Get help right away if: ?? You cough up blood. ?? You have chest pain. ?? You have severe shortness of breath. ?? You become dehydrated. ?? You faint or keep feeling like you are going to faint. ?? You keep vomiting. ?? You have a severe headache. ?? Your fever or chills gets worse. This information is not intended to replace advice given to you by your health care provider. Make sure you discuss any questions you have with your health care provider. Document Released: 07/20/2005 Document Revised: 01/24/2018 Document Reviewed: 11/30/2016 [employer] Patient Education ?? 2019 [employer] I gave these instructions to the patient prior to discharge: Increase rest and fluids. Your activity level should be based on how you feel. Inhale cool moist air to ease dry cough. You may use an over-the counter expectorant/cough suppressant as needed to help thin mucus, but do not use ANY ppcv-mqm-azibroh cough medications at the same time as any prescribed cough medication. You may use Tylenol (or acetaminophen i.e. generic) or Motrin/Advil (or ibuprofen i.e. generic) as needed for pain or fever unless you are allergic or have a medical condition or take a medication that makes it unsafe for you to take these medications. Always take your prescription medication as directed. Take medications with the directions ( NEEDED) only if you need the medication to alleviate a symptom, but not regularly. If you were prescribed an antibiotic you may want to eat yogurt daily or take a daily probiotic to help to prevent gastrointestinal side effects. You are instructed to contact your primary care physician in 1 day for a follow- up appointment to assess resolution of your symptoms. You are instructed to immediately go to the Emergency Department if you begin to experience any shortness or breath, experience a high fever that does not improve with fmvq-sjl-aetzfqd medications such as tylenol, have any severe wheezing or a barky cough, experience oral airway drooling; experience a decrease in activity levels, or have any weakness, dizziness, and lightheadedness; feel as if you're going to pass out, are unable to keep down oral fluids and experience a decrease urine output, your symptoms worsen after the outpatient treatment prescribed at this Urgent Care, or if have any type chest pain. Patient verbalized understanding of the aforementioned instructions, and agreed to adhere to aforementioned plan of care, and to abide by these instructions. documented in this encounter Plan of Treatment Upcoming Encounters Date Type Department Care Team (Late st Contact Info) Description 06/28/2024 9:40 AM EST Clinical Support ANTOLIN Burnette [address] [email or web address] [place] GUILLERMO Burnette [phone] 11/19/2024 1:40 PM EDT Office Visit SEP Neurology [facility] [address] [place] [address] Lyndsay Brewer, [address] [facility] [address] [place] [address] documented as of this encounter Goals Goal Patient Goal Type Associated Problems Recent Progress Patient-Stated? Author Blood Pressure < 140/90 Blood Pressure 134/84(2023 1:16 PM EST) No Yana Choi RMA Eat better, exercise, reach an ideal body weight General No Yana Choi RMA Stay Tobacco Free Lifestyle Yana Pina RMA documented as of this encounter Visit Diagnoses Diagnosis Mild intermittent asthmatic bronchitis without complication- Primary Wheezing documented in this encounter Administered Medications Inactive Administered Medications - up to 1 most recent administrations Medication Order MAR Action Action Date Dose Rate Site albuterol-ipratropium (DUO-NEB) 0.5 mg-3 mg(2.5 mg base)/3 mL nebulizer solution 3 mL 3 mL, Nebulization, ONCE, 1 dose, On 11/17/18 at 1100, Administered by Respiratory Therapy., Dx: 1. WheezingIndications:Wheez ing Given 11/17/2018 11:00 AM EDT 3 mL Other albuterol-ipratropium (DUO-NEB) 0.5 mg-3 mg(2.5 mg base)/3 mL nebulizer solution 3 mL 3 mL, Nebulization, ONCE, 1 dose, On 11/17/18 at 1115, Administer 20 mins after the 1st duo neb, Dx: 1. WheezingIndications:Wheez ing Given 11/17/2018 11:15 AM EDT 3 mL Other methylPREDNISolone sodium succinate (Solu-MEDROL) injection 125 mg 125 mg, Intramuscular, ONCE, 1 dose, On 11/17/18 at 1100, Dx: 1. WheezingIndications:Wheez ing Given 11/17/2018 11:00 AM EDT 125 mg Right upper gluteus documented in this encounter Discontinued Medications Medication Sig Discontinue Reason Start Date End Da te predniSONE (DELTASONE) 10 mg Oral TabletIndications:Mild intermittent asthma with acute exacerbation Take 4 tabs once daily for 2 days, then 3 tabs daily x2 days, then 2 tabs daily x2 days and then 1 tab daily x2 days. DELETE-Therapy completed 06/21/2018 11/17/2018 documented as of this encounter Care Teams Graphic Technician Relationship Specialty Start Date End Date Michelle Garrido APRN PCP - General Nurse Practitioner 01/09/17 01/14/21 documented as of this encounter
--- OUTSIDE RECORDS SUMMARY | 2024-05-29 15:49 | XMS_ITS | Encounter Summary ---
Author Organization [facility] [address] Care Team Providers Care Chief Dietitian Name Role Phone Michelle Garrido APRN Primary Care Provider Unava ilable Reason for Visit * Reason Comments Neck Pain Pt states gardenia been sholving gravel in my driveway the last few days and I dont knw what I did but when I turn my head and raise my arm its takes my breath away. 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 Shoulder Pain +left shoulder Encounter Details Date Type Department Care Team (Late st Contact Info) Description 01/05/2019 5:56 PM EDT - 01/05/2019 6:54 PM EDT Emergency [facility] Emergency [address] [place] [address]. [place] [address] Deidra Pastor MD [address] [place] [address] Strain of left trapezius muscle, initial encounter (Primary Dx) Discharge Disposition: Home [...] Sign Reading Time Taken Comments Blood Pressure 138/77 01/05/2019 5:46 PM EDT Pulse 92 01/05/2019 5:46 PM EDT Temperature 36.9 ??C (98.5 ??F) 01/05/2019 5:46 PM ED T Respiratory Rate 18 01/05/2019 5:46 PM EDT Oxygen Saturation 98% 01/05/2019 5:46 PM EDT Inhaled Oxygen Concentration - - Weight 89.8 kg (198 lb) 01/05/2019 5:46 PM EDT Height 170.2 cm (5' 7 ) 01/05/2019 5:46 PM EDT Body Mass Index 31.01 01/05/2019 5:46 PM EDT documented in this encounter Functional [...] Riya Pérez RMJane documented in this encounter Discharge Instructions * Discharge Instructions* Johana Lam APRN - 01/05/2019 6:46 PM EDT Take medications as prescribed. Continue previous prescription of Celebrex and Follow up with Michelle Garrido APRN in 2-3 days. Return to Emergency Department for any worsening symptoms or concerns. * Attachments The following attachments cannot be sent through Care Everywhere. * Muscle Strain Nsmo-bn-Vnib (Iraqi) documented in this encounter Medications at Time of Discharge Nebulizer Accessories (ALL FLOW 4000 KIT) [facility] equivalent 1 Each 0 06/27/2012 albuterol (VENTOLIN HFA) 90 mcg/actuation Inhl HFA Aerosol InhalerIndication s:Encounter for medication refill USE 1 OR 2 PUFFS EVERY 4 HOURS NEEDED FOR WHEEZING. 54 Inhaler 2 10/04/2018 0 clindamycin (CLEOCIN) 300 mg Oral CapsuleIndication s:Abscess of right leg,Abscess of left leg Take 1 Cap by mouth 3 times daily for 10 days. 30 Cap 12/28/2018 9 mupirocin (BACTROBAN) 2 % Top OintmentIndicatio ns:Abscess of right leg,Abscess of left leg Apply topically 3 times daily for 14 days. 1 Tube 12/28/2018 9 sulfamethoxazole- trimethoprim (BACTRIM DS) 800-160 mg Oral TabletIndications :Cellulitis of leg, left,Cellulitis of leg, right Take 1 Tab by mouth every 12 hours for 10 days. 20 Tab 12/26/2018 9 tadalafil (CIALIS) 5 mg Oral TabletIndications :BPH without urinary obstruction Take 1 Tab by mouth as needed. for erectile dysfunction 90 Tab 1 12/26/2018 0 documented as of this encounter Ordered Prescriptions Prescription Sig Dispense Quantity Refills Last Filled Start Date End Date lidocaine (LIDODERM) 5 % Top Adhesive Patch, Medicated Place 1 Patch onto the skin daily. Apply for 12 hours, remove for 12 hours, then apply new patch 30 Patch 01/05/2019 02/07/2019 documented in this encounter Discharge Disposition Disposition Code Departure Means Destination Home or Self Halfway documented in this encounter ED Notes * Johana Lam APRN - 01/05/2019 5:42 PM EDT Chief Complaint Patient presents with ??? Neck Pain Pt states gardenia been sholving gravel in my driveway the last few days and I dont knw what I did but when I turn my head and raise my arm its takes my breath away. 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 ??? Shoulder Pain +left shoulder Patient is a 53-year-old male with history of anxiety, bipolar, [place], hypertension, previous opiate abuse, IBS, anxiety, who presents for evaluation of left shoulder pain. Patient states in the last several days he has been moving gravel in his driveway. Last night he had some stiffness and soreness and had taken some Tylenol and ibuprofen this morning at 6 AM. By 3:00 this afternoon he was in severe discomfort. Complains of 8 out of 10 sharp pain that starts in his shoulder and radiates up his neck. Aggravated by any position changes or palpation. He tried taking his Zanaflex 4 mg at 3:30 withno improvement in his symptoms. He has tried ice. No alleviating factors. He denies any fevers or chills. Denies numbness, tingling or weakness of the extremities. No bowel or bladder incontinence orsaddle paresthesias. No fever, personal history of cancer or IV drug use in years. Denies dysuria or hematuria. He presents to the ER for evaluation Patient History Allergies Allergen Reactions ??? Abilify [Aripiprazole] Other (See Comments) convulsions ??? Unable To Assess Patient does not take any narcotic medications Home Medications: Prior to Admission medications Medication Sig Start Date End Date Taking? Authorizing Provider acetaminophen (TYLENOL) 500 mg Oral Tablet Take 500 mg by mouth every 4 hours as needed for Pain. Yes Provider, Historical ADVAIR DISKUS 500-50 mcg/dose Inhl Disk with Device INHALE 1 PUFF BY MOUTH 2 TIMES A DAY 05/23/18 Yes Renu Doll MD albuterol (VENTOLIN HFA) 90 mcg/actuation Inhl HFA Aerosol Inhaler USE 1 OR 2 PUFFS EVERY 4 HOURS NEEDED FOR WHEEZING. 10/04/18 Yes Michelle Garrido APRN celecoxib (CELEBREX) 200 mg Oral Capsule TAKE 1 CAPSULE BY MOUTH TWICE A DAY NEEDED 12/26/18 Yes Michelle Garrido APRN clindamycin (CLEOCIN) 300 mg Oral Capsule Take 1 Cap by mouth 3 times daily for 10 days. 12/28/18 01/07/19 Yes Reginald Leigh MD losartan-hydrochlorothiazide (HYZAAR) 50-12.5 mg Oral Tablet Take 1 Tab by mouth daily. 12/26/18 Yes Michelle Garrido APRN metroNIDAZOLE (METROGEL) 0.75 % Top Gel Apply topically 2 times daily. 06/28/16 Yes Renu Doll MD mupirocin (BACTROBAN) 2 % Top Ointment Apply topically 3 times daily for 14 days. 12/28/18 01/11/19 Yes Reginald Leigh MD tadalafil (CIALIS) 5 mg Oral Tablet Take 1 Tab by mouth as needed. for erectile dysfunction 12/26/18 Yes Michelle Garrido APRN tiZANidine (ZANAFLEX) 4 mg Oral Tablet Take 1 Tab by mouth 3 times daily. 03/20/18 Yes Merlyn Garrido APRN VIBERZI 100 mg Oral Tablet TAKE 1 TABLET BY MOUTH TWICE A DAY 01/04/19 Yes Michelle Garrido APRN albuterol (PROVENTIL) 5 mg/mL Inhl Solution for Nebulization Take 5 mg/hr by nebulization continuous. 03/30/16 Renu Doll MD fluticasone (FLONASE) 50 mcg/actuation Nasl Dennison, Suspension USE 1 SPRAY INTO EACH NOSTRIL EVERY DAY Patient not taking: Reported on 01/05/2019 07/11/18 Michelle Garrido APRN loratadine (CLARITIN) 10 mg Oral Tablet Take 1 Tab by mouth daily. Patient not taking: Reported on 01/05/2019 03/22/18 Michelle Garrido APRN multivitamin Oral Capsule Take 1 Cap by mouth daily. Provider, Historical Nebulizer Accessories (ALL FLOW 4000 KIT) [facility] equivalent 06/27/12 Carola Arcos MD Nebulizers (SANG BABY NEBULIZER) [facility] equivalent 06/27/12 Carola Arcos MD Saccharomyces boulardii (FLORASTOR) 250 mg Oral Capsule Take 1 Cap by mouth 2 times daily. Patient not taking: Reported on 01/05/2019 12/28/18 Reginald Leigh MD sulfamethoxazole-trimethoprim (BACTRIM DS) 800-160 mg Oral Tablet Take 1 Tab by mouth every 12 hours for 10 days. Patient not taking: Reported on 01/05/2019 12/26/18 01/05/19 Michelle Garrido APRN Past Medical History: Past [...] does not drink alcohol or use drugs. Family History: Family History Problem Relation Age of Onset ??? Diabetes Mother ??? Heart Disease Mother ??? High Blood Pressure Mother ??? High Cholesterol Mother ??? Cancer Father 40 stomach Surgical History: Past Surgical History: Procedure Laterality Date ??? ELBOW SURGERY ??? EYE SURGERY ??? FRACTURE SURGERY left leg, after accident ??? HERNIA REPAIR ??? HIP ARTHROPLASTY Left 07/26/2017 LEFT TOTAL HIP ARTHROPLASTY- REVISION-ANTERIOR ; Surgeon: Augie Ramires MD; Location: [facility] OR; Service: Orthopedics ??? JOINT REPLACEMENT left hip ??? KNEE SURGERY both ??? TOTAL HIP ARTHROPLASTY Left 2009 Review of Systems Review of Systems All other systems reviewed and are negative. Physical Exam Blood pressure 138/77, pulse 92, temperature 98.5 ??F (36.9 ??C), temperature source Oral, resp. rate 18, height 5' 7 (1.702 m), weight 198 lb (89.8 kg), SpO2 98 %. Physical Exam Constitutional: He is oriented to person, place, and time. He appears well- developed and well-nourished. No distress. HENT: Head: Normocephalic. Eyes: Conjunctivae are normal. Neck: Normal range of motion. Cardiovascular: Normal rate, regular rhythm, normal heart sounds and intact distal pulses. Pulmonary/Chest: Effort normal and breath sounds normal. No respiratory distress. Musculoskeletal: Normal range of motion. Patient is ambulatory to treatment area. Patient has no evidence of surface trauma, abrasions, scars, ecchymoses or lacerations. No midline tenderness to the cervical, thoracic or lumbar spine. Palpable spasm to the left trapezius muscle. No deformity or step-off. No saddle anesthesias. Able to stand erect with normal flexion, extension and lateral bending and rotation. Dorsi flexion and plantar flexion intact with normal strength. Negative straight leg raise bilaterally. Patellar and Achilles tendons are intact. Dorsalis and pedal pulses intact. Sensation to light touch. Neurological: He is alert and oriented to person, place, and time. Skin: Skin is warm and dry. Psychiatric: He has a normal mood and affect. Judgment and thought content normal. Nursing note and vitals reviewed. Procedures Radiology/EKG/Labs: Results for orders placed or performed during the hospital encounter of 01/05/19 XR SHOULDER LEFT 4 VIEWS Narrative XR SHOULDER LEFT 4 VIEWS, 01/05/2019 6:27 PM CLINICAL HISTORY: Shoulder pain. COMPARISON: Chest x-ray March 13, 2018. PROCEDURE COMMENTS: 4 views. FINDINGS: The glenohumeral and acromioclavicular joints are congruent. There is no fracture. Mild arthritic changes at the acromioclavicular and glenohumeral joints. Deformity of the posterior LEFT seventh rib is chronic. Impression No acute bony abnormality of the shoulder. - - ED Course: Zuhair Whitlock presents to the ED with the above complaints. The pt was seen and evaluated by me for attending physician, Dr. Pastor Appropriate laboratory and radiology studies reviewed Patient presents for evaluation of left-sided shoulder pain. He has been shoveling gravel for the last 3 days. He does have reproducible pain with palpation of trapezius muscle with a spasm noted. Nomidline cervical, thoracic or lumbar discomfort. X-ray of left shoulder shows no acute abnormality.He does have improved pain following Toradol and steroid injection. He has requested nonnarcotic. He is currently on Celebrex and Zanaflex. He is instructed to continue these in addition to given lidocaine patches. Instructed on range of motion exercises and follow up with primary care provider. Ptinstructed to return to ER for new or worsening symptoms. Patient verbalizes understanding of plan of care and is agreeable with plan of care. ED Clinical Impression: 1. Strain of left trapezius muscle, initial encounter Critical Care time Condition at Discharge/Transfer from Department: Stable This chart was completed using voice recognition technology and may contain unintended errors Johana Lam APRN 01/05/19 1848 Cosigned by Deidra Pastor MD at 01/05/2019 11:11 PM EDT Associated attestation - Deidra Pastor MD - 01/05/2019 11:11 PM EDT This chart was completed using voice recognition technology and may contain unintended errors documented in this encounter Plan of Treatment Upcoming Encounters Date Type Department Care Team (Late st Contact Info) Description 06/28/2024 9:40 AM EST Clinical Support SEP Yomaira [address] [employer] [place] [address] 11/19/2024 1:40 PM EDT Office Visit SEP Neurology [facility] [address] [place] [address] Lyndsay Brewer [address] [employer] COUNSEL[employer] [facility] [address] [place] [address] documented as of this encounter [...] Priority Date/Time Associated Diagnosis Comments XR SHOULDER LEFT 4 VIEWS EULOGIO 01/05/2019 6:27 PM EDT documented in this encounter Results * XR SHOULDER LEFT 4 VIEWS (01/05/2019 6:27 PM EDT) Anatomical Region Laterality Modality Shoulder Radiographic Pauly ging 01/05/2019 6:27 PM EDT Impressions 01/05/2019 6:40 PM EDT No acute bony abnormality of the shoulder. - - Narrative 01/05/2019 6:40 PM EDT XR SHOULDER LEFT 4 VIEWS, ??01/05/2019 6:27 PM CLINICAL HISTORY: ??Shoulder pain. COMPARISON: ??Chest x-ray March 13, 2018. PROCEDURE COMMENTS: 4 views. FINDINGS: ?? The glenohumeral and acromioclavicular joints are congruent. There is no fracture. Mild arthritic changes at the acromioclavicular and glenohumeral joints. Deformity of the posterior LEFT seventh rib is chronic. Procedure Note Pk Brasher MD - 01/05/2019 XR SHOULDER LEFT 4 VIEWS, 01/05/2019 6:27 PM CLINICAL HISTORY: Shoulder pain. COMPARISON: Chest x-ray March 13, 2018. PROCEDURE COMMENTS: 4 views. FINDINGS: The glenohumeral and acromioclavicular joints are congruent. There is no fracture. Mild arthritic changes at the acromioclavicular and glenohumeral joints. Deformity of the posterior LEFT seventh rib is chronic. IMPRESSION: No acute bony abnormality of the shoulder. - - Johana Mcbride APRN IMG DIAGNOSTIC IMAGING O RDERABLES Final Result documented in this encounter Visit Diagnoses Diagnosis Strain of left trapezius muscle, initial encounter- Primary documented in this encounter Administered Medications Inactive Administered Medications - up to 1 most recent administrations Medication Order MAR Action Action Date Dose Rate Site ketorolac (TORADOL) injection 15 mg 15 mg, Intramuscular, ONCE, 1 dose, On 01/05/19 at 1815 Given 01/05/2019 6:15 PM EDT 15 mg Right Arm methylPREDNISolone acetate (DEPO-Medrol) injection 80 mg 80 mg, Intramuscular, ONCE, 1 dose, On 01/05/19 at 1815 Given 01/05/2019 6:15 PM EDT 80 mg Left Arm documented in this encounter Active and Recently Administered Medications Times are shown in EDT. Scheduled Medication Order 01/03/2019 01/04/201901/0501/05/2019 ketorolac (TORADOL) injection 15 mg (COMPLETED) 15 mg, Intramuscular, ONCE, 1 dose, On 01/05/19 at 1815 1815 (Given - Provid er: Carrie Edwards RN) methylPREDNISolone acetate (DEPO-Medrol) injection 80 mg (COMPLETED) 80 mg, Intramuscular, ONCE, 1 dose, On 01/05/19 at 1815 1815 (Given - Provid er: Carrie Edwards RN) documented in this encounter Care Teams Chief Dietitian Relationship Specialty Start Date End Date Michelle Garrido, COMPACTING MACHINE OPERATOR/TENDER PCP - General Nurse Practitioner 01/09/17 01/14/21 documented as of this encounter
--- OUTSIDE RECORDS SUMMARY | 2024-05-29 15:49 | XMS_ITS | Encounter Summary ---
Author Organization [place] [address] Care Team Providers Care Poultry Slaughterer Name Role Phone Michelle Garrido APRN Primary Care Provider Unava ilable Reason for Visit * Reason Comments Medication Refill Encounter Details Date Type Department Care Team (Late st Contact Info) Description 07/11/2018 Refill SEP [address] [place] [address] Renu Doll MD Medication Refill Social History Tobacco Use [...] Refills Last Filled Start Date End Date losartan-hydrochlor othiazide (HYZAAR) 50-12.5 mg Oral TabletIndications:E ncounter for medication refill TAKE 1 TAB BY MOUTH DAILY. 90 Tab 07/11/2018 10/12/2018 documented in this encounter Plan of Treatment Upcoming Encounters Date Type Department Care Team (Late st Contact Info) Description 06/28/2024 9:40 AM EST Clinical Support ANTOLIN Burnette [address] [place] [id number] 11/19/2024 1:40 PM EDT Office Visit SEP Neurology [facility] [address] [place] [address] Lyndsay Brewer DO [address] [address] documented as of this encounter [...] Discontinue Reason Start Date End Da te losartan-hydrochlorothiaz monse (HYZAAR) 50-12.5 mg Oral TabletIndications:Encount er for medication refill TAKE 1 TAB BY MOUTH DAILY. Reorder 09/11/2017 07/11/2018 documented as of this encounter Care Teams Poultry Slaughterer Relationship Specialty Start Date End Date Michelle Garrido APRN PCP - General Nurse Practitioner 01/09/17 01/14/21 documented as of this encounter
--- OUTSIDE RECORDS SUMMARY | 2024-05-29 15:49 | XMS_ITS | Encounter Summary ---
Author Organization [place] [address] Care Team Providers Care Control Specialist Name Role Phone Michelle Garrido APRN Primary Care Provider Unava ilable Reason for Visit * Reason Onset Date Comments Medication Refill 10/04/2018 Encounter Details Date Type Department Care Team (Late st Contact Info) Description 10/04/2018 Refill SEP [address] [employer] [place] [address] Michelle Garrido APRN Medication Refill [...] HFA Aerosol InhalerIndications :Encounter for medication refill USE 1 OR 2 PUFFS EVERY 4 HOURS NEEDED FOR WHEEZING. 54 Inhaler 2 10/04/2018 07/19/2019 documented in this encounter Plan of Treatment Upcoming Encounters Date Type Department Care Team (Late st Contact Info) Description 06/28/2024 9:40 AM EST Clinical Support ANTOLIN Burnette [address] [place] [address] 11/19/2024 1:40 PM EDT Office Visit SEP Neurology [facility] [address] [place] [address] Lyndsay Brewer [address]ICIAN [facility] [address] [place] [address] documented as of this encounter [...] Discontinue Reason Start Date End Da te VENTOLIN HFA 90 mcg/actuation Inhl HFA Aerosol InhalerIndications:Encou nter for medication refill USE 1 OR 2 PUFFS EVERY 4 HOURS NEEDED FOR WHEEZING. Reorder 04/16/2018 10/04/2018 documented as of this encounter Care Teams Control Specialist Relationship Specialty Start Date End Date Michelle Garrido, YOLI PCP - General Nurse Practitioner 01/09/17 01/14/21 documented as of this encounter
--- OUTSIDE RECORDS SUMMARY | 2024-05-29 15:49 | XMS_ITS | Encounter Summary ---
Author Organization [place] [address] Care Team Providers Care Post Framer Name Role Phone Michelle Garrido APRN Primary Care Provider Unava ilable Reason for Visit * Reason Onset Date Comments Prior Authorization 01/08/2019 Shayy Encounter Details Date Type Department Care Team (Late st Contact Info) Description 01/08/2019 Telephone [facility] [address] [place] [address] Michelle Garrido APRN Prior Authorization (Shayy ) Social History Tobacco Use Types Packs/Day [...] No 07/11/2017 9:14 AM Riya Pérez ESTEFANY Garcia * Because of a physical, mental or emotional condition, does this person have difficulty doing errands alone such as visiting a doctor's office or shopping? Answer Date of Assessment Author No 07/11/2017 9:14 AM AIMEE Jimbo Riya sosa ESTEFANY Garcia documented as of this encounter Mental Status * Because of a physical, mental or emotional condition, does this person have serious difficulty concentrating, remembering or making decisions? Answer Entry Date Author No 07/11/2017 9:14 AM Riya Pérez ESTEFANY Garcia documented in this encounter Miscellaneous Notes * Telephone Encounter - Farzana Garrido MA - 01/08/2019 5:15 PM EDT Called [facility] dept, instant approval 10/10/18-01/08/20 Ref ID [id number] Pt informed * Telephone Encounter - Tammy Sánchez - 01/08/2019 11:09 AM EDT Prior Authorization Request Who is requesting the Prior Auth: Patient Medication Name /Dosage/Frequency: VIBERZI 100 mg Oral Tablet 60 Tab 0 01/04/2019 Sig: TAKE 1 TABLET BY MOUTH TWICE A DAY Did the pharmacy suggest an alternate medication: No Pharmacy Name & Location: [id number] [place] [address] [address] [facility] [phone] Is the patient???s insurance plan that is on file up to date: Yes Informed patient that prior authorizations can take up to 10 business days for response: yes Additional Information: documented in this encounter Plan of Treatment Upcoming Encounters Date Type Department Care Team (Late st Contact Info) Description 06/28/2024 9:40 AM EST Clinical Support [facility] [address] [employer] [place] [address] 11/19/2024 1:40 PM EDT Office Visit [facility] [address] [place] [id number] Lyndsay Brewer, DO [address] [place] [address] documented as of this encounter Goals Goal [...] on filedocumented in this encounter Care Teams Post Framer Relationship Specialty Start Date End Date Michelle Garrido APRN PCP - General Nurse Practitioner 01/09/17 01/14/21 documented as of this encounter
--- OUTSIDE RECORDS SUMMARY | 2024-05-29 15:49 | XMS_ITS | Encounter Summary ---
Author Organization [place] [address] Care Team Providers Care Vegetable Worker Name Role Phone Michelle Garrido APRN Primary Care Provider Unava ilable Reason for Visit * Reason Onset Date Comments Medication Refill 10/12/2018 Encounter Details Date Type Department Care Team (Late st Contact Info) Description 10/12/2018 Refill [facility] [address] [place] [address] Michelle Garrido APRN Medication Refill [...] mg Oral TabletIndications:E ncounter for medication refill Take 1 Tab by mouth daily. 90 Tab 10/12/2018 12/26/2018 documented in this encounter Plan of Treatment Upcoming Encounters Date Type Department Care Team (Late st Contact Info) Description 06/28/2024 9:40 AM EST Clinical Support [facility] [address] [email or web address] [address] 11/19/2024 1:40 PM EDT Office Visit SEP Neurology [facility] [address] [place] [address] Lyndsay Brewer DO [address] [place] [address] documented as of this encounter [...] TAKE 1 TAB BY MOUTH DAILY. Reorder 07/11/2018 10/12/2018 documented as of this encounter Care Teams Vegetable Worker Relationship Specialty Start Date End Date Michelle Garrido, YOLI PCP - General Nurse Practitioner 01/09/17 01/14/21 documented as of this encounter
--- OUTSIDE RECORDS SUMMARY | 2024-05-29 15:49 | XMS_ITS | Encounter Summary ---
Author Organization [place] [address] Care Team Providers Care Resident Surgeon Name Role Phone Michelle Garrido APRN Primary Care Provider Unava ilable Reason for Visit * Reason Comments Medication Refill Encounter Details Date Type Department Care Team (Late st Contact Info) Description 12/04/2018 Refill [facility] [address] [place] [address] Michelle Garrido APRN Medication Refill [...] BY MOUTH TWICE A DAY 60 Tab 12/04/2018 01/03/2019 documented in this encounter Miscellaneous Notes * Telephone Encounter - Farzana Garrido MA - 12/04/2018 10:26 AM EDT DENZEL: as expected 12/04/18 LRF 11/05/18 GUS 09/10/18 documented in this encounter Plan of Treatment Upcoming Encounters Date Type Department Care Team (Late st Contact Info) Description 06/28/2024 9:40 AM EST Clinical Support [facility] [address] [place] [address] 11/19/2024 1:40 PM EDT Office Visit SEP Neurology [facility] [address] [place] [address] Lyndsay Brewer DO [address] [place] [address] documented as of this encounter Goals Goal [...] 1 TABLET BY MOUTH TWICE A DAY. Reorder 11/05/2018 12/04/2018 documented as of this encounter Care Teams Resident Surgeon Relationship Specialty Start Date End Date Michelle Garrido APRN PCP - General Nurse Practitioner 01/09/17 01/14/21 documented as of this encounter
--- OUTSIDE RECORDS SUMMARY | 2024-05-29 15:49 | XMS_ITS | Encounter Summary ---
Author Organization [place] [address] Care Team Providers Care Reclamation Kettle Tender Name Role Phone Michelle Garrido APRN Primary Care Provider Unava ilable Reason for Visit * Reason Comments Medication Refill Encounter Details Date Type Department Care Team (Late st Contact Info) Description 01/03/2019 Refill [facility] [address] [place] [address] Michelle Garrido APRN Medication Refill [...] Assessment Author No 07/11/2017 9:14 AM Riya Préez RMA * Does this person have difficulty [...] BY MOUTH TWICE A DAY 60 Tab 01/04/2019 02/14/2019 documented in this encounter Miscellaneous Notes * Telephone Encounter - Rocio Brewster CMA - 01/03/2019 3:21 PM EDT DENZEL: as expected 12/04/18 Last filled 12/04 Last seen 12/28 documented in this encounter Plan of Treatment Upcoming Encounters Date Type Department Care Team (Late st Contact Info) Description 06/28/2024 9:40 AM EST Clinical Support [facility] [address] [place] [address] 11/19/2024 1:40 PM EDT Office Visit SEP Neurology [facility] [address] [place] [phone] Lyndsay Brewer DO [address] [place] [address] documented as of this encounter Goals Goal [...] TABLET BY MOUTH TWICE A DAY Reorder 12/04/2018 01/03/2019 documented as of this encounter Care Teams Reclamation Kettle Tender Relationship Specialty Start Date End Date Michelle Garrido APRN PCP - General Nurse Practitioner 01/09/17 01/14/21 documented as of this encounter
--- OUTSIDE RECORDS SUMMARY | 2024-05-29 15:49 | XMS_ITS | Encounter Summary ---
Author Organization [place] [address] Care Team Providers Care Electric Tool Repairer Name Role Phone Michelle Garrido APRN Primary Care Provider Unava ilable Reason for Visit * Reason Onset Date Comments Medication Refill 01/09/2019 Encounter Details Date Type Department Care Team (Late st Contact Info) Description 01/09/2019 Refill [facility] [address] [place] [address] Michelle Garrido APRN Medication Refill [...] Last Filled Start Date End Date fluticasone propion-salmeterol (ADVAIR DISKUS) 500-50 mcg/dose Inhl Disk with DeviceIndications: Encounter for medication refill Inhale 1 Puff into the lungs 2 times daily. 120 Each 2 01/09/2019 07/23/2019 documented in this encounter Plan of Treatment Upcoming Encounters Date Type Department Care Team (Late st Contact Info) Description 06/28/2024 9:40 AM EST Clinical Support [facility] [address] [place] [address] 11/19/2024 1:40 PM EDT Office Visit SEP Neurology [facility] [address] [place] [address] Lyndsay Brewer DO [address] [facility] [address] [place] [address] documented as of this encounter [...] medication refill INHALE 1 PUFF BY MOUTH 2 TIMES A DAY Reorder 05/23/2018 01/09/2019 documented as of this encounter Care Teams Electric Tool Repairer Relationship Specialty Start Date End Date Michelle Garrido, PATIENT ACCESS DIRECTOR PCP - General Nurse Practitioner 01/09/17 01/14/21 documented as of this encounter
--- OUTSIDE RECORDS SUMMARY | 2024-05-29 15:49 | XMS_ITS | Encounter Summary ---
Author Organization [place] [address] Care Team Providers Care Mold Hoister Name Role Phone Destiny Garrido APRN Primary Care Provider Unava ilable Reason for Visit * Reason Comments Wound Infection Encounter Details Date Type Department Care Team (Latest Contact Info) Description 12/26/2018 8:45 AM EDT Office Visit [facility] [address] [place] [address] Destiny Garrido APRN Cellulitis of leg, right (Primary Dx); Cellulitis of leg, left; BPH without urinary obstruction; Osteoarthritis of multiple joints, unspecified osteoarthritis type; Essential hypertension; Encounter for vaccination Social History Tobacco Use Types Packs/Day Years [...] Sign Reading Time Taken Comments Blood Pressure 142/74 12/26/2018 8:53 AM EDT Pulse 66 12/26/2018 8:53 AM EDT Temperature 36.4 ??C (97.5 ??F) 12/26/2018 8:53 AM ED T Respiratory Rate - - Oxygen Saturation 98% 12/26/2018 8:53 AM EDT Inhaled Oxygen Concentration - - Weight 87.1 kg (192 lb) 12/26/2018 8:53 AM EDT Height 172.7 cm (5' 8 ) 12/26/2018 8:53 AM EDT Body Mass Index 29.19 12/26/2018 8:53 AM EDT documented in this encounter Functional [...] Refills Last Filled Start Date End Date sulfamethoxazole-tr imethoprim (BACTRIM DS) 800-160 mg Oral TabletIndications:C ellulitis of leg, left,Cellulitis of leg, right Take 1 Tab by mouth every 12 hours for 10 days. 20 Tab 12/26/2018 01/06/20 19 celecoxib (CELEBREX) 200 mg Oral CapsuleIndications: Osteoarthritis of multiple joints, unspecified osteoarthritis type TAKE 1 CAPSULE BY MOUTH TWICE A DAY NEEDED 180 Cap 1 12/26/2018 02/08/20 19 tadalafil (CIALIS) 5 mg Oral TabletIndications:B PH without urinary obstruction Take 1 Tab by mouth as needed. for erectile dysfunction 90 Tab 1 12/26/2018 07/01/19 20 losartan-hydrochlor othiazide (HYZAAR) 50-12.5 mg Oral TabletIndications:E ssential hypertension Take 1 Tab by mouth daily. 90 Tab 1 12/26/2018 01/09/20 19 documented in this encounter Progress Notes * Destiny Garrido, CONDITIONER TENDER - 12/26/2018 8:45 AM EDT Vitals: 12/26/18 0853 BP: 142/74 Pulse: 66 Temp: 97.5 ??F (36.4 ??C) TempSrc: Oral SpO2: 98% Weight: 192 lb (87.1 kg) Height: 5' 8 (1.727 m) SUBJECTIVE: Chief Complaint Patient presents with ??? Wound Infection HPI: Wound- Pt has a abscess on right lower leg (where the top of his boots hit.) It started about 4 days ago. He states that last night he popped it, is sore today. He has another one on his right leg that he just noticed yesterday but it feels like it has a knot underneath it like the first one started out. He has had staph infection in the past, wonders if this could be it again. 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 HTN- home readings are normotensive, denies SEs. SELIN-Godfrey bruno is working well, has about 1 week left ED- needs refill on cialis OA- needs refill on celebrex Review of Systems Skin: Positive for wound. OBJECTIVE: Physical Exam Constitutional: He appears well-developed and well-nourished. Cardiovascular: Normal rate, regular rhythm and normal heart sounds. Pulmonary/Chest: Effort normal and breath sounds normal. No respiratory distress. Skin: Lesion noted. There is erythema. Assessment Diagnoses and all orders for this visit: Cellulitis of leg, right - sulfamethoxazole-trimethoprim (BACTRIM DS) 800-160 mg Oral Tablet; Take 1 Tab by mouth every 12 hours for 10 days. Dispense: 20 Tab; Refill: 0 Cellulitis of leg, left - sulfamethoxazole-trimethoprim (BACTRIM DS) 800-160 mg Oral Tablet; Take 1 Tab by mouth every 12 hours for 10 days. Dispense: 20 Tab; Refill: 0 BPH without urinary obstruction - tadalafil (CIALIS) 5 mg Oral Tablet; Take 1 Tab by mouth as needed. for erectile dysfunction Dispense: 90 Tab; Refill: 1 Osteoarthritis of multiple joints, unspecified osteoarthritis type - celecoxib (CELEBREX) 200 mg Oral Capsule; TAKE 1 CAPSULE BY MOUTH TWICE A DAY NEEDED Dispense:180 Cap; Refill: 1 Essential hypertension - losartan-hydrochlorothiazide (HYZAAR) 50-12.5 mg Oral Tablet; Take 1 Tab by mouth daily. Dispense: 90 Tab; Refill: 1 Encounter for vaccination - TDAP VACCINE =>7YO IM documented in this encounter Miscellaneous Notes * Patient Instructions - Destiny Garrido APRN - 12/26/2018 8:45 AM EDT Images from the original note were not included. Patient Education Cellulitis, Adult Cellulitis is a skin infection. The infected area is usually red and tender. This condition occurs most often in the arms and lower legs. The infection can travel to the muscles, blood, and underlying tissue and become serious. It is very important to get treated for this condition. What are the causes? Cellulitis is caused by bacteria. The bacteria enter through a break in the skin, such as a cut, burn, insect bite, open sore, or crack. What increases the risk? This condition is more likely to occur in people who: ?? Have a weak defense system (immune system). ?? Have open wounds on the skin such as cuts, davidson, bites, and scrapes. Bacteria can enter the body through these open wounds. ?? Are older. ?? Have diabetes. ?? Have a type of long-lasting (chronic) liver disease (cirrhosis) or kidney disease. ?? Use IV drugs. What are the signs or symptoms? Symptoms of this condition include: ?? Redness, streaking, or spotting on the skin. ?? Swollen area of the skin. ?? Tenderness or pain when an area of the skin is touched. ?? Warm skin. ?? Fever. ?? Chills. ?? Blisters. How is this diagnosed? This condition is diagnosed based on a medical history and physical exam. You may also have tests, including: ?? Blood tests. ?? Lab tests. ?? Imaging tests. How is this treated? Treatment for this condition may include: ?? Medicines, such as antibiotic medicines or antihistamines. ?? Supportive care, such as rest and application of cold or warm cloths (cold or warm compresses) to the skin. ?? Hospital care, if the condition is severe. The infection usually gets better within 1-2 days of treatment. Follow these instructions at home: ?? Take pqny-gbz-fndwipr and prescription medicines only as told by your health care provider. ?? If you were prescribed an antibiotic medicine, take it as told by your health care provider. Do not stop taking the antibiotic even if you start to feel better. ?? Drink enough fluid to keep your urine clear or pale yellow. ?? Do not touch or rub the infected area. ?? Raise (elevate) the infected area above the level of your heart while you are sitting or lying down. ?? Apply warm or cold compresses to the affected area as told by your health care provider. ?? Keep all follow-up visits as told by your health care provider. This is important. These visits let your health care provider make sure a more serious infection is not developing. Contact a health care provider if: ?? You have a fever. ?? Your symptoms do not improve within 1-2 days of starting treatment. ?? Your bone or joint underneath the infected area becomes painful after the skin has healed. ?? Your infection returns in the same area or another area. ?? You notice a swollen bump in the infected area. ?? You develop new symptoms. ?? You have a general ill feeling (malaise) with muscle aches and pains. Get help right away if: ?? Your symptoms get worse. ?? You feel very sleepy. ?? You develop vomiting or diarrhea that persists. ?? You notice red streaks coming from the infected area. ?? Your red area gets larger or turns dark in color. This information is not intended to replace advice given to you by your health care provider. Make sure you discuss any questions you have with your health care provider. Document Released: 03/22/2006 Document Revised: 10/20/2016 Document Reviewed: 04/20/2016 [employer] Patient Education ?? 2019 [employer] * Addendum Note - Destiny Garrido APRN - 12/26/2018 8:45 AM EDTAddended by: DESTINY GARRIDO on: 12/26/2018 09:13 AM Modules accepted: Orders * Addendum Note - Destiny Garrido APRN - 12/26/2018 8:45 AM EDTAddended by: DESTINY GARRIDO on: 12/26/2018 09:24 AM Modules accepted: Level of Service documented in this encounter Plan of Treatment Upcoming Encounters Date Type Department Care Team (Late st Contact Info) Description 06/28/2024 9:40 AM EST Clinical Support [facility] [address] [place] [address] 11/19/2024 1:40 PM EDT Office Visit SEP Neurology [facility] [address] [place] [address] Lyndsay Brewer DO [address] [place] [address] documented as of this encounter Goals Goal Patient Goal Type Associated Problems Recent Progress Patient-Stated? Author Blood Pressure < 140/90 Blood Pressure 134/84(2023 1:16 PM EST) No Yana Choi RMA Eat better, exercise, reach an ideal body weight General No Yana Choi RMA Stay Tobacco Free Lifestyle No Yana Choi RMA documented as of this encounter Visit Diagnoses Diagnosis Cellulitis of leg, right- Primary Cellulitis and abscess of leg, except foot Cellulitis of leg, left Cellulitis and abscess of leg, except foot BPH without urinary obstruction Hypertrophy of prostate without urinary obstruction and other lower urinary tract symptoms (LUTS) Osteoarthritis of multiple joints, unspecified osteoarthritis type Essential hypertension Unspecified essential hypertension Encounter for vaccination documented in this encounter Discontinued Medications Medication Sig Discontinue Reason Start Date End Da te tadalafil (CIALIS) 5 mg Oral TabletIndications:BPH without urinary obstruction TAKE 1 TABLET BY MOUTH NEEDED FOR ERECTILE DYSFUNCTION Reorder 10/03/2018 12/26/2018 losartan-hydrochloroth iazide (HYZAAR) 50-12.5 mg Oral TabletIndications:Enco unter for medication refill Take 1 Tab by mouth daily. Reorder 10/12/2018 12/26/2018 tadalafil (CIALIS) 5 mg Oral TabletIndications:BPH without urinary obstruction Take 1 Tab by mouth as needed. for erectile dysfunction Reorder 03/07/2018 12/26/2018 celecoxib (CELEBREX) 200 mg Oral Capsule TAKE 1 CAPSULE BY MOUTH TWICE A DAY NEEDED Reorder 10/05/2018 12/26/2018 documented as of this encounter Orders Immunization/Injection Count Last Ordered Date First Ordered Date TDAP VACCINE =>7YO IM 1 12/26/2018 documented in this encounter Care Teams Mold Hoister Relationship Specialty Start Date End Date Destiny Garrido APRN PCP - General Nurse Practitioner 01/09/17 01/14/21 documented as of this encounter
--- OUTSIDE RECORDS SUMMARY | 2024-05-29 15:49 | XMS_ITS | Encounter Summary ---
Author Organization [place] [address] Care Team Providers Care Software Maintenance Engineer Name Role Phone Michelle Garrido APRN Primary Care Provider Unava ilable Reason for Referral * Genetic Lab Test (Routine) - Closed Specialty Diagnoses / Procedures Referred By Gus kunz Referred To Contact Diagnoses Screening for colon cancer Screening for cancer of the rectum Procedures COLOGUARD Michelle Garrido APRN Referral ID Status Reason Start Date Expiration Date Visits Re quested Visits Authorized [id number] Closed 11/15/2018 11/15/2019 1 1 Encounter Details Date Type Department Care Team (Late st Contact Info) Description 11/15/2018 Orders Only [facility] Transformation [address] [place] [address] Michelle Garrido APRN Screening for colon cancer; Screening for cancer of the rectum Social History Tobacco Use Types Packs/Day Years [...] Riya Pérez RMJane documented in this encounter Plan of Treatment Upcoming Encounters Date Type Department Care Team (Late st Contact Info) Description 06/28/2024 9:40 AM EST Clinical Support [facility] [address] [place] [address] 11/19/2024 1:40 PM EDT Office Visit SEP Neurology [facility] [address] [address] Lyndsay Brewer [address] [facility] [address] [place] [address] documented as of this encounter Goals Goal Patient Goal Type Associated Problems Recent Progress Patient-Stated? Author Blood Pressure < 140/90 Blood Pressure 134/84(2023 1:16 PM EST) No Yana Choi RMA Eat better, exercise, reach an ideal body weight General Yana Pina RMA Stay Tobacco Free Lifestyle No Yana Choi RMA documented as of this encounter Procedures Procedure Name Priority Date/Time Associated Diagnosis Comments COLOGUARD Routine 08/27/2019 6:38 AM EST documented in this encounter Results * COLOGUARD (08/27/2019 6:38 AM EST) COLOGUARD CLINICAL REPORT Negative Not Applicable [facility] Comment: A negative result indicates [...] Marquez et al, N Engl J Med 2014;370(14):3082-0048) COLOGUARD RE-SCREENING RECOMMENDATION: Periodic routine colorectal cancer screening is an important part of preventive healthcare for asymptomatic persons at average risk for colorectal cancer. Following a negative Cologuard result, the [place] [employer] Society and U.S. Multi-Society Task Force screening guidelines recommend a Cologuard re-screening interval of 3 years. References: [place] [employer] (ACS). Colorectal cancer prevention and early detection. [place], [place]: [place] [employer]; [updated 2015Oct 17]. https://www.cancer.org/cancer/dqpky-phnjkf-mqgwgj/wlfcoqesh-owgpraywy-nrjmojf/ac s-rec ommendations.html. Accessed February 23, 2018; Irving DK, David CR, Hazel MartinezK, Colorectal Cancer Screening: Recommendations for Physicians and Patients from the U.S. Multi-Society Task Force on Colorectal Cancer Screening, Am J Gastroenterology 2017; 112:9743-5829. Test Type: Composite algorithmic analysis of stool [...] can be accessed at the following location: www.Fluid-1.MESI/results. Additional description of the Cologuard test process, warnings and precautions can be found at www.cologuardtest.com. Rx Only. Stool specimen (specimen) 08/27/2019 6:38 AM EST 08/28/2019 2:37 PM EST Michelle Garrido APRN Guidefitter SCIENCE - ORDERABLES F inal Result Performing Organization Address City/State/[facility] Co de Phone Number [employer] [address] [place] [address] [employer] [address] [place] [address] documented in this encounter Visit Diagnoses Diagnosis Screening for colon cancer Special screening for malignant neoplasms, colon Screening for cancer of the rectum Screening for malignant neoplasm of the rectum documented in this encounter Care Teams Software Maintenance Engineer Relationship Specialty Start Date End Date Michelle Garrido APRN PCP - General Nurse Practitioner 01/09/17 01/14/21 documented as of this encounter
--- OUTSIDE RECORDS SUMMARY | 2024-05-29 15:49 | XMS_ITS | Encounter Summary ---
Author Organization [facility] [place] [address] Care Team Providers Care Hydroponics Worker Name Role Phone Michelle Garrido APRN Primary Care Provider Unava ilable Encounter Details Date Type Department Care Team (Latest Contact Info) Description 01/05/2019 Travel Social History Tobacco Use Types Packs/Day [...] Entry Date Author No 07/11/2017 9:14 AM EST Riya Choi RMA documented in this encounter Plan of Treatment Upcoming Encounters Date Type Department Care Team (Late st Contact Info) Description 06/28/2024 9:40 AM EST Clinical Support [facility] [place] [address] [employer] [address] [place] [address] 11/19/2024 1:40 PM EDT Office Visit SEP Neurology [facility] [address] [place] [address] Lyndsay Brewer DO [address] [place] [address] documented as of this encounter [...] on filedocumented in this encounter Care Teams Hydroponics Worker Relationship Specialty Start Date End Date Michelle Garrido APRN PCP - General Nurse Practitioner 01/09/17 01/14/21 documented as of this encounter
--- OUTSIDE RECORDS SUMMARY | 2024-05-29 15:49 | XMS_ITS | Encounter Summary ---
Author Organization [place] [address] Care Team Providers Care Cloth Tester Quality Name Role Phone Michelle Garrido APRN Primary Care Provider Unava ilable Reason for Visit * Reason Comments Medication Refill Encounter Details Date Type Department Care Team (Late st Contact Info) Description 06/27/2018 Refill SE[facility] [place] [address] [place] [address] Michelle Garrido APRN Medication Refill [...] 07/11/2017 9:14 AM Ryia Pérez RMA * Does this person have [...] Refills Last Filled Start Date End Date CIALIS 5 mg Oral TabletIndications: BPH without urinary obstruction TAKE 1 TABLET BY MOUTH NEEDED FOR ERECTILE DYSFUNCTION 90 Tab 06/27/2018 9 VIBERZI 100 mg Oral TabletIndications: Irritable bowel syndrome with diarrhea TAKE 1 TABLET BY MOUTH TWICE A DAY 60 Tab 06/27/2018 9 documented in this encounter Miscellaneous Notes * Telephone Encounter - Farzana Garrido MA - 06/27/2018 1:48 PM EST DENZEL: as expected 03/29/18 LRF 05/28/18 GUS 06/21/18 documented in this encounter Plan of Treatment Upcoming Encounters Date Type Department Care Team (Late st Contact Info) Description 06/28/2024 9:40 AM EST Clinical Support [facility] [place] [address] [place] [address] 11/19/2024 1:40 PM EDT Office Visit SEP Neurology [facility] [address] [place] [phone] Lyndsay Brewer DO [address] [place] [address] documented as of this encounter [...] bowel syndrome with diarrhea Irritable bowel syndrome BPH without urinary obstruction Hypertrophy of prostate without urinary obstruction and other lower urinary tract symptoms (LUTS) documented in this encounter Discontinued Medications Medication Sig Discontinue Reason Start Date End Da te VIBERZI 100 mg Oral TabletIndications:Irrita ble bowel syndrome with diarrhea TAKE 1 TABLET BY MOUTH TWICE A DAY Reorder 05/28/2018 06/27/2018 documented as of this encounter Care Teams Cloth Tester Quality Relationship Specialty Start Date End Date Michelle Garrido APRN PCP - General Nurse Practitioner 01/09/17 01/14/21 documented as of this encounter
--- OUTSIDE RECORDS SUMMARY | 2024-05-29 15:49 | XMS_ITS | Encounter Summary ---
Author Organization [place] [address] Care Team Providers Care Toll Repairer Central Office Name Role Phone Michelle Garrido APRN Primary Care Provider Unava ilable Reason for Visit * Reason Comments Medication Refill Encounter Details Date Type Department Care Team (Late st Contact Info) Description 10/04/2018 Refill [facility] [place] [address] [place] [address] Michelle Garrido APRN Medication Refill [...] MOUTH TWICE A DAY NEEDED 180 Cap 10/05/2018 documented in this encounter Plan of Treatment Upcoming Encounters Date Type Department Care Team (Late st Contact Info) Description 06/28/2024 9:40 AM EST Clinical Support [place] [address] [facility] [place] [address] 11/19/2024 1:40 PM EDT Office Visit SEP Neurology [facility] [address] [place] [phone] Lyndsay Brewer DO [address] [address] documented as of this encounter [...] BY MOUTH TWICE A DAY NEEDED Reorder 03/22/2018 10/04/2018 documented as of this encounter Care Teams Toll Repairer Central Office Relationship Specialty Start Date End Date Michelle Garrido APRN PCP - General Nurse Practitioner 01/09/17 01/14/21 documented as of this encounter
--- OUTSIDE RECORDS SUMMARY | 2024-05-29 15:49 | XMS_ITS | Encounter Summary ---
Author Organization [facility] [place] [address] Care Team Providers Care Wind Turbine Controls Engineer Name Role Phone Michelle Garrido APRN Primary Care Provider Unava ilable Reason for Visit * Reason Onset Date Comments Prior Authorization 07/04/2018 tadalafil/ c ialis Encounter Details Date Type Department Care Team (Late st Contact Info) Description 07/04/2018 Telephone [facility] [place] [address] [place] [address] Michelle Garrido APRN Prior Authorization (tadalafil/ cialis) Social History Tobacco Use Types Packs/Day Years [...] Assessment Author No 07/11/2017 9:14 AM EST Choi Riya sosa Jose, RMA * Because of a physical, mental or emotional condition, does this person have difficulty doing errands alone such as visiting a doctor's office or shopping? Answer Date of Assessment Author No 07/11/2017 9:14 AM EST Jimbo Riya sosa Jose, RMA documented as of this encounter Mental Status * Because of a physical, mental or emotional condition, does this person have serious difficulty concentrating, remembering or making decisions? Answer Entry Date Author No 07/11/2017 9:14 AM EST Jimbo Riya blasyobani Jose, RMA documented in this encounter Miscellaneous Notes * Telephone Encounter - Farzana Garrido MA - 07/04/2018 6:08 PM EST PA initiated for tadalafil Approved. Case# [id number] 06/26/18-07/04/2019 Pt informed. documented in this encounter Plan of Treatment Upcoming Encounters Date Type Department Care Team (Late st Contact Info) Description 06/28/2024 9:40 AM EST Clinical Support [facility] [place] [address] [place] [address] 11/19/2024 1:40 PM EDT Office Visit SEP Neurology [facility] [address] [place] [address] Lyndsay Brewer DO [address] [facility] [address] [place] [address] documented as of this encounter [...] on filedocumented in this encounter Care Teams Wind Turbine Controls Engineer Relationship Specialty Start Date End Date Michelle Garrido APRN PCP - General Nurse Practitioner 01/09/17 01/14/21 documented as of this encounter
--- OUTSIDE RECORDS SUMMARY | 2024-05-29 15:49 | XMS_ITS | Encounter Summary ---
Author Organization [place] [address] Care Team Providers Care Motor Express Clerk Name Role Phone Michelle Garrido APRN Primary Care Provider Unava ilable Reason for Visit * Reason Comments Medication Refill Encounter Details Date Type Department Care Team (Late st Contact Info) Description 10/02/2018 Refill [facility] [place] [address] [place] [address] Michelle Garrido APRN Medication [...] MOUTH NEEDED FOR ERECTILE DYSFUNCTION 90 Tab 10/03/2018 documented in this encounter Plan of Treatment Upcoming Encounters Date Type Department Care Team (Late st Contact Info) Description 06/28/2024 9:40 AM EST Clinical Support [facility]P [place] [address] [place] [address] 11/19/2024 1:40 PM EDT Office Visit SEP Neurology [facility] [address] [place] [phone] Lyndsay Brewer [address] [place] [address] documented as of this encounter [...] Discontinue Reason Start Date End Da te CIALIS 5 mg Oral TabletIndications:BPH without urinary obstruction TAKE 1 TABLET BY MOUTH NEEDED FOR ERECTILE DYSFUNCTION Reorder 06/27/2018 10/02/2018 documented as of this encounter Care Teams Motor Express Clerk Relationship Specialty Start Date End Date Michelle Garrido, RN SOCIAL WORK PCP - General Nurse Practitioner 01/09/17 01/14/21 documented as of this encounter
--- OUTSIDE RECORDS SUMMARY | 2024-05-29 15:49 | XMS_ITS | Encounter Summary ---
Author Organization [place] [address] Care Team Providers Care Drafting Teacher Name Role Phone Michelle Garrido APRN Primary Care Provider Unava ilable Reason for Visit * Reason Comments Medication Refill Encounter Details Date Type Department Care Team (Late st Contact Info) Description 07/11/2018 Refill [facility] [place] [address] [place] [address] Michelle Garrido APRN Medication Refill [...] Last Filled Start Date End Date fluticasone (FLONASE) 50 mcg/actuation Nasl [place], SuspensionIndicati ons:Seasonal allergic rhinitis due to other allergic trigger USE 1 SPRAY INTO EACH NOSTRIL EVERY DAY 16 mL 2 07/11/2018 9 documented in this encounter Plan of Treatment Upcoming Encounters Date Type Department Care Team (Late st Contact Info) Description 06/28/2024 9:40 AM EST Clinical Support ANT[place] [address] [place] [address] 11/19/2024 1:40 PM EDT Office Visit SEP Neurology [facility] [address] [place] [address] Lyndsay Brewer DO [address] [facility] [address] [place] [address] documented as of this encounter Goals Goal Patient Goal Type Associated Problems Recent Progress Patient-Stated? Author Blood Pressure < 140/90 Blood Pressure 134/84(2023 1:16 PM EST) Yana Pina RMA Eat better, exercise, reach an ideal body weight General Yana Pina RMA Stay Tobacco Free Lifestyle Yana Pina RMA documented as of this encounter Visit Diagnoses Diagnosis Seasonal allergic rhinitis due to other allergic trigger documented in this encounter Discontinued Medications Medication Sig Discontinue Reason Start Date End Da te fluticasone (FLONASE) 50 mcg/actuation Nasl [place], SuspensionIndications:Sea anthony allergic rhinitis due to other allergic trigger 1 [place] by Nasal route daily. Reorder 02/27/2018 07/11/2018 documented as of this encounter Care Teams Drafting Teacher Relationship Specialty Start Date End Date Michelle Garrido APRN PCP - General Nurse Practitioner 01/09/17 01/14/21 documented as of this encounter
--- OUTSIDE RECORDS SUMMARY | 2024-05-29 15:49 | XMS_ITS | Encounter Summary ---
Author Organization [place] [address] Care Team Providers Care Fashion Artist Name Role Phone Michelle Garrido APRN Primary Care Provider Unava ilable Reason for Visit * Reason Comments Medication Refill Encounter Details Date Type Department Care Team (Late st Contact Info) Description 09/03/2018 Refill [facility] [place] [address] [place] [address] Michelle Garrido APRN Medication Refill [...] Riya Pérez RMA documented in this encounter Plan of Treatment Upcoming Encounters Date Type Department Care Team (Late st Contact Info) Description 06/28/2024 9:40 AM EST Clinical Support [facility]P [place] [address] [place] [phone] 11/19/2024 1:40 PM EDT Office Visit SEP Neurology [facility] [address] [place] [phone] Lyndsay Brewer DO [address] [facility] [address] [place] [address] documented as of this encounter Goals Goal Patient Goal Type Associated Problems Recent Progress Patient-Stated? Author Blood Pressure < 140/90 Blood Pressure 134/84(2023 1:16 PM EST) Yana Pina RMA Eat better, exercise, reach an ideal body weight General No Yana Choi RMA Stay Tobacco Free Lifestyle No Yana Cohi RMA documented as of this encounter Visit Diagnoses Diagnosis Irritable bowel syndrome with diarrhea Irritable bowel syndrome documented in this encounter Care Teams Fashion Artist Relationship Specialty Start Date End Date Michelle Garrido APRN PCP - General Nurse Practitioner 01/09/17 01/14/21 documented as of this encounter
--- OUTSIDE RECORDS SUMMARY | 2024-05-29 15:49 | XMS_ITS | Encounter Summary ---
Author Organization [place] [address] Care Team Providers Care Dairy Lab Technician Name Role Phone Michelle Garrido APRN Primary Care Provider Willie aguila Encounter Details Date Type Department Care Team (Latest Contact Info) Description 06/29/2018 9:50 AM EST - 06/29/2018 11:59 PM [facility] Hospital Encounter [facility] [address] [place] [address] Pain in left hip; Presence of left artificial hip joint Discharge Disposition: Home or Self Care Social [...] Author No 07/11/2017 9:14 AM Riya Pérez DEMARCUSJane * Because of a physical, mental or emotional condition, does this person have difficulty doing errands alone such as visiting a doctor's office or shopping? Answer Date of Assessment Author No 07/11/2017 9:14 AM Riya PérezESTEFANY documented as of this encounter Mental Status * Because of a physical, mental or emotional condition, does this person have serious difficulty concentrating, remembering or making decisions? Answer Entry Date Author No 07/11/2017 9:14 AM Riya PérezESTEFANY documented in this encounter Medications at Time of Discharge Nebulizer Accessories (ALL FLOW 4000 KIT) [facility] Formulary equivalent 1 Each 0 06/27/2012 benzonatate (TESSALON) 200 mg Oral CapsuleIndication s:Viral URI with cough Take 1 Cap by mouth 3 times daily as needed for Cough for up to 10 days. 30 Cap 06/21/2018 9 documented as of this encounter Discharge Disposition Disposition Code Departure Means Destination Home or Self Care documented in this encounter Plan of Treatment Upcoming Encounters Date Type Department Care Team (Late st Contact Info) Description 06/28/2024 9:40 AM EST Clinical Support [place] [address] [employer] [phone] 11/19/2024 1:40 PM EDT Office Visit SEP Neurology [facility] [address] [place] [address] Lyndsay Brewer DO [address] [facility] [address] [place] [address] documented as of this encounter Goals Goal Patient Goal Type Associated Problems Recent Progress Patient-Stated? Author Blood Pressure < 140/90 Blood Pressure 134/84(2023 1:16 PM EST) Yana Pina RMA Eat better, exercise, reach an ideal body weight General Yana Pina RMA Stay Tobacco Free Lifestyle Yana Pina RMA documented as of this encounter Procedures Procedure Name Priority Date/Time Associated Diagnosis Comments SEDIMENTATION RATE AUTOMATED Routine 06/29/2018 9:51 AM EST Pain in left hip Presence of left artificial hip joint CBC WITH DIFF Routine 06/29/2018 9:51 AM EST Pain in left hip Presence of left artificial hip joint C-REACTIVE PROTEIN Routine 06/29/2018 9: 51 AM EST Pain in left hip Presence of left artificial hip joint documented in this encounter Results * SEDIMENTATION RATE AUTOMATED (06/29/2018 9:51 AM EST) Sed Rate 17 0 - 20 mm/hr 06/29/2018 3:40 PM EST [facility] Blood Venipuncture / Unknown 06/29/2018 9:51 AM EST 06/29/2018 9:51 AM EST us Augie Ramires MD HEMATOLOGY ORDERABLE S Final Result Performing Organization Address City/State/[facility] Co de Phone Number [facility] [address] [place] [address] * (ABNORMAL) CBC WITH DIFF (06/29/2018 9:51 AM EST) WBC 10.7(H) 3.7 - 10.3 x10(3)/mcL 06/29/2018 3:29 PM EST [facility] RBC 4.69 4.60 - 6.10 x10(6)/mcL 06/29/2018 3:29 PM EST [facility] Hgb 14.8 13.7 - 17.5 g/dL 06/29/2018 3:29 PM EST [facility] Hct 45.7 40.0 - 51.0 % 06/29/2018 3:29 PM EST [facility] MCV 97.4 79.0 - 98.0 fL 06/29/2018 3:29 PM EST [facility] MCH 31.6 26.0 - 32.0 pg 06/29/2018 3:29 PM EST [facility] MCHC 32.4 30.7 - 35.5 g/dL 06/29/2018 3:29 PM EST [facility] RDW 12.4 <=14.9 % 06/29/2018 3:29 PM EST [facility] Platelet 286 155 - 369 x10(3)/mcL 06/29/2018 3:29 PM EST [facility] MPV 10.1 8.8 - 12.5 fL 06/29/2018 3:29 PM EST [facility] Neut Percent 74.4 % 06/29/2018 3:29 PM EST [facility] Comment:Neutrophils equals s egs plus bands Imm Gran% 0.7 % 06/29/2018 3:29 PM EST [facility] Comment:Automated count of m etamyelocytes, myelocytes and promyelocytes. Lymph Percent 18.0 % 06/29/2018 3:29 PM EST [facility] [place] Percent 5.9 % 06/29/2018 3:29 PM EST [facility] Eos Percent 0.6 % 06/29/2018 3:29 PM EST [facility] Baso Percent 0.4 % 06/29/2018 3:29 PM EST [facility] Neut # 8.0(H) 1.6 - 6.1 x10(3)/mcL 06/29/2018 3:29 PM EST [facility] Comment:Neutrophils equals s egs plus bands IMMGRAN# 0.1 0.0 - 0.1 x10(3)/mcL 06/29/2018 3:29 PM EST [facility] Comment:Automated count of m etamyelocytes, myelocytes and promyelocytes. An absolute IG <0.1 is reported as 0.0. Lymph # 1.9 1.2 - 3.9 x10(3)/mcL 06/29/2018 3:29 PM EST [facility] [place] # 0.6 0.3 - 0.9 x10(3)/mcL 06/29/2018 3:29 PM EST [facility] Eos# 0.1 0.0 - 0.5 x10(3)/mcL 06/29/2018 3:29 PM EST [facility] Baso # 0.0 0.0 - 0.1 x10(3)/mcL 06/29/2018 3:29 PM EST [facility] Blood Venipuncture / Unknown 06/29/2018 9:51 AM EST 06/29/2018 9:51 AM EST us Augie Ramires MD HEMATOLOGY ORDERABLE S Final Result Performing Organization Address City/[facility] Co de Phone Number [facility] [address] [facility] , [address] [place], [place] [id number] * (ABNORMAL) C-REACTIVE PROTEIN (06/29/2018 9:51 AM EST) CRP 7.62(H) <=5.00 mg/L 06/29/2018 3:56 PM EST [facility] Blood Venipuncture / Unknown 06/29/2018 9:51 AM EST 06/29/2018 9:51 AM EST us Augie Ramires MD CHEMISTRY ORDERABLES Final Result Performing Organization Address [facility] Co de Phone Number [facility] [address] [facility] , [place] [address] documented in this encounter Visit Diagnoses Diagnosis Pain in left hip Pain in joint, pelvic region and thigh Presence of left artificial hip joint Hip joint replacement by other means documented in this encounter Care Teams Dairy Lab Technician Relationship Specialty Start Date End Date Michelle Garrido APRN PCP - General Nurse Practitioner 01/09/17 01/14/21 documented as of this encounter
--- OUTSIDE RECORDS SUMMARY | 2024-05-29 15:49 | XMS_ITS | Encounter Summary ---
Author [place] [address] Care Team Providers Care Computer Hardware Developer Name Role Phone Michelle Garrido APRN Primary Care Provider Willie aguila Encounter Details Date Type Department Care Team (Latest Contact Info) Description 07/06/2018 8:59 AM EST - 07/06/2018 11:59 PM [facility] Hospital Encounter [facility] [address] [phone] Pain in left hip (Primary Dx) Discharge Disposition: Home or Self [...] Riya Pérez RMJane documented in this encounter Medications at Time of Discharge Nebulizer Accessories (ALL FLOW 4000 KIT) [facility] Formulary equivalent 1 Each 0 06/27/2012 documented as of this encounter Discharge Disposition Disposition Code Departure Means Destination Home or Self Care documented in this encounter Plan of Treatment Upcoming Encounters Date Type Department Care Team (Late st Contact Info) Description 06/28/2024 9:40 AM EST Clinical Support [place] [address] [place] [place] [address] 11/19/2024 1:40 PM EDT Office Visit SEP Neurology [facility] [address] [place] [address] Lyndsay Brewer DO [address] [facility] [address] [place] [address] documented as of this encounter Goals Goal Patient Goal Type Associated Problems Recent Progress Patient-Stated? Author Blood Pressure < 140/90 Blood Pressure 134/84(2023 1:16 PM EST) Yana Pina RMA Eat better, exercise, reach an ideal body weight General Yana Pina RMA Stay Tobacco Free Lifestyle Yana Pina RMA documented as of this encounter Procedures Procedure Name Priority Date/Time Associated Diagnosis Comments CHROMIUM - REF LAB Routine 07/06/2018 9: 00 AM EST Pain in left hip COBALT - REF LAB Routine 07/06/2018 9:00 AM EST Pain in left hip documented in this encounter Results * CHROMIUM - REF LAB (07/06/2018 9:00 AM EST) Chromium 2.5 <=5.0 ug/L 07/09/2018 5:03 PM EST [facility] Comment: A 2 fold increase in the reported chromium concentration is to be expected if compared to a result generated prior to 11/28/2011. The expected 2 fold increase is a result of an assay improvement. Interpretive questions should be directed to the laboratory. INTERPRETATION INFORMATION: Chromium, Serum Serum chromium is the preferred specimen type for evaluating metal ion release from hnppo-mn-smxfu joint arthroplasty. Serum chromium levels may be increased in asymptomatic patients with eumyu-bf-xmivf prosthetics and should be considered in the context of the overall clinical scenario. The form of chromium greatly influences distribution. Trivalent chromium resides in the plasma and is usually not of clinical importance. Hexavalent chromium is considered highly toxic; however, chromium serum levels should not be used to assess toxic exposures to hexavalent chromium as it is predominately taken up and retained by red blood cells. Symptoms associated with chromium toxicity vary based on route of exposure and dose, and may include dermatitis, impairment of pulmonary function, gastroenteritis, hepatic necrosis, bleeding, and acute tubular necrosis. Test developed and characteristics determined by [facility]. See Compliance Statement B: [facility] Performed by [facility], [address] [place] [id number] [email or web address], Pal Zaragoza MD, Lab. Director Blood VENOUS BLOOD / Unknown Venipuncture / Unknown 07/06/2018 9:00 AM EST 07/06/2018 9:00 AM EST us Augie Ramires MD CHEMISTRY ORDERABLES Final Result [facility] [address] [place] [address] * COBALT - REF LAB (07/06/2018 9:00 AM EST) [place] <1.0 <=1.0 ug/L 07/09/2018 5:03 PM EST [facility] Comment: INTERPRETIVE INFORMATION: [place], Serum or Plasma Serum cobalt levels can be used in the assessment of occupational exposure or toxic ingestion and is the preferred specimen type for evaluating metal ion release from kowfs-jw-qexnn joint arthroplasty. Serum cobalt levels may be increased in asymptomatic patients with ipidg-bw-ixecp prosthetics and should be considered in the context of the overall clinical scenario. Symptoms associated with cobalt toxicity vary based on route of exposure, and may include cardiomyopathy, allergic dermatitis, pulmonary fibrosis, cough and dyspnea. Test developed and characteristics determined by [facility]. See Compliance Statement B: [facility] [facility] Performed by [facility], [address] [place] [address] [email or web address], Pal Zaragoza MD, Lab. Director Blood VENOUS BLOOD / Unknown Venipuncture / Unknown 07/06/2018 9:00 AM EST 07/06/2018 9:00 AM EST Augie Ramires MD CHEMISTRY ORDERABLES Final Result [facility] [address] [place] [address] documented in this encounter Visit Diagnoses Diagnosis Pain in left hip- Primary Pain in joint, pelvic region and thigh documented in this encounter Care Teams Computer Hardware Developer Relationship Specialty Start Date End Date Michelle Garrido APRN PCP - General Nurse Practitioner 01/09/17 01/14/21 documented as of this encounter
--- OUTSIDE RECORDS SUMMARY | 2024-05-29 15:49 | XMS_ITS | Encounter Summary ---
Author Organization [place] [address] Care Team Providers Care Chicken Raiser Name Role Phone Michelle Garrido APRN Primary Care Provider Unava ilable Reason for Visit * Reason Comments Edema Encounter Details Date Type Department Care Team (Late st Contact Info) Description 12/28/2018 4:20 PM EDT Office [place] [facility] [place] [address] [place] [address] Reginald Leigh MD [address] [place], [place] [id number] Abscess of right leg (Primary Dx); Abscess of left leg Social History Tobacco Use Types Packs/Day Years Used Date Smoking Tobacco: Never Smokeless Tobacco: Current Snuff Tobacco Cessation:Ready to Q uit: Yes; Counseling Given: Yes Alcohol Use Standard Drinks/Week [...] Sign Reading Time Taken Comments Blood Pressure 122/72 12/28/2018 4:15 PM EDT Pulse 82 12/28/2018 4:15 PM EDT Temperature 36.9 ??C (98.5 ??F) 12/28/2018 4:15 PM ED T Respiratory Rate 14 12/28/2018 4:15 PM EDT Oxygen Saturation 97% 12/28/2018 4:15 PM EDT Inhaled Oxygen Concentration - - Weight 87.1 kg (192 lb) 12/28/2018 4:15 PM EDT Height 172.7 cm (5' 8 ) 12/28/2018 4:15 PM EDT Body Mass Index 29.19 12/28/2018 4:15 PM EDT documented in this encounter Functional [...] Date Author No 07/11/2017 9:14 AM Riya Préez RMA documented in this encounter Ordered Prescriptions Prescription Sig Dispense Quantity Refills Last Filled Start Date End Date mupirocin (BACTROBAN) 2 % Top OintmentIndication s:Abscess of right leg,Abscess of left leg Apply topically 3 times daily for 14 days. 1 Tube 12/28/2018 9 Saccharomyces boulardii (FLORASTOR) 250 mg Oral CapsuleIndications :Abscess of right leg,Abscess of left leg Take 1 Cap by mouth 2 times daily. 60 Cap 12/28/2018 9 clindamycin (CLEOCIN) 300 mg Oral CapsuleIndications :Abscess of right leg,Abscess of left leg Take 1 Cap by mouth 3 times daily for 10 days. 30 Cap 12/28/2018 9 documented in this encounter Progress Notes * Reginald Leigh MD - 12/28/2018 4:20 PM EDT Vitals: 12/28/18 1615 BP: 122/72 BP Location: Right arm Patient Position: Sitting Pulse: 82 Resp: 14 Temp: 98.5 ??F (36.9 ??C) TempSrc: Oral SpO2: 97% Weight: 192 lb (87.1 kg) Height: 5' 8 (1.727 m) SUBJECTIVE: Chief Complaint Patient presents with ??? Edema HPI: patient says that he has these spots on his legs that look like pimples. He had popped the onebecause it was so painful. He says that the redness is getting worse along with the swelling. They are very painful. Saw PCP on 12/26 and prescribed bactrim. Info from [place] reviewed and discussed. Review of Systems Respiratory: Negative for chest tightness and shortness of breath. Cardiovascular: Negative for chest pain. Skin: Positive for color change, pallor and wound. Neurological: Negative for dizziness, light-headedness and headaches. All other systems reviewed and are negative. OBJECTIVE: Physical Exam Constitutional: He appears well-developed and well-nourished. Skin: Silver dollar sized red indurated tender nodule right leg just proximal to ankle. Quarter sized pink indurated nodule just distal to left knee. Psychiatric: He has a normal mood and affect. His behavior is normal. Judgment and thought content normal. Vitals reviewed. Procedure #1: right leg lesion prepped in sterile fashion. 1% lidocaine used for anesthesia. No. 11blade used to make stab incision. Minimal purulent fluid expressed. Wound culture obtained. Wound irrigated with mixture of saline and hydrogen peroxide. Sterile dressing applied. Patient tolerated procedure. No complications. Procedure #2: left leg lesion prepped in sterile fashion. 1% lidocaine used for anesthesia. No. 11 blade used to make stab incision. Scant purulent fluid expressed. Wound culture obtained. Wound irrigated with mixture of saline and hydrogen peroxide. Sterile dressing applied. Patient tolerated procedure. No complications. Assessment Diagnoses and all orders for this visit: Abscess of right leg - clindamycin (CLEOCIN) 300 mg Oral Capsule; Take 1 Cap by mouth 3 times daily for 10 days. Dispense: 30 Cap; Refill: 0 - Saccharomyces boulardii (FLORASTOR) 250 mg Oral Capsule; Take 1 Cap by mouth 2 times daily. Dispense: 60 Cap; Refill: 0 - mupirocin (BACTROBAN) 2 % Top Ointment; Apply topically 3 times daily for 14 days. Dispense: 1 Tube; Refill: 0 - WOUND CULTURE (STAIN INCLUDED); Future - OK DRAIN SKIN ABSCESS COMPLIC Abscess of left leg - clindamycin (CLEOCIN) 300 mg Oral Capsule; Take 1 Cap by mouth 3 times daily for 10 days. Dispense: 30 Cap; Refill: 0 - Saccharomyces boulardii (FLORASTOR) 250 mg Oral Capsule; Take 1 Cap by mouth 2 times daily. Dispense: 60 Cap; Refill: 0 - mupirocin (BACTROBAN) 2 % Top Ointment; Apply topically 3 times daily for 14 days. Dispense: 1 Tube; Refill: 0 - WOUND CULTURE (STAIN INCLUDED); Future - OK DRAIN SKIN ABSCESS COMPLIC documented in this encounter Miscellaneous Notes * Patient Instructions - Rocio Brewster CMA - 12/28/2018 4:20 PM EDT Images from the original note were not included. Patient Education Edema Edema is when you have too much fluid in your body or under your skin. Edema may make your legs, feet, and ankles swell up. Swelling is also common in looser tissues, like around your eyes. This is acommon condition. It gets more common as you get older. There are many possible causes of edema. Eating too much salt (sodium) and being on your feet or sitting for a long time can cause edema in your legs, feet, and ankles. Hot weather may make edema worse. Edema is usually painless. Your skin may look swollen or shiny. Follow these instructions at home: ?? Keep the swollen body part raised (elevated) above the level of your heart when you are sitting or lying down. ?? Do not sit still or stand for a long time. ?? Do not wear tight clothes. Do not wear garters on your upper legs. ?? Exercise your legs. This can help the swelling go down. ?? Wear elastic bandages or support stockings as told by your doctor. ?? Eat a low-salt (low-sodium) diet to reduce fluid as told by your doctor. ?? Depending on the cause of your swelling, you may need to limit how much fluid you drink (fluid restriction). ?? Take lhyo-adf-kmaoeig and prescription medicines only as told by your doctor. Contact a doctor if: ?? Treatment is not working. ?? You have heart, liver, or kidney disease and have symptoms of edema. ?? You have sudden and unexplained weight gain. Get help right away if: ?? You have shortness of breath or chest pain. ?? You cannot breathe when you lie down. ?? You have pain, redness, or warmth in the swollen areas. ?? You have heart, liver, or kidney disease and get edema all of a sudden. ?? You have a fever and your symptoms get worse all of a sudden. Summary ?? Edema is when you have too much fluid in your body or under your skin. ?? Edema may make your legs, feet, and ankles swell up. Swelling is also common in looser tissues, like around your eyes. ?? Raise (elevate) the swollen body part above the level of your heart when you are sitting or lying down. ?? Follow your doctor's instructions about diet and how much fluid you can drink (fluid restriction). This information is not intended to replace advice given to you by your health care provider. Make sure you discuss any questions you have with your health care provider. Document Released: 11/28/2008 Document Revised: 06/30/2017 Document Reviewed: 06/30/2017 [employer] Interactive Patient Education ?? 2019 [employer] Patient Education Incision and Drainage, Care After Refer to this sheet in the next few weeks. These instructions provide you with information about caring for yourself after your procedure. Your health care provider may also give you more specific instructions. Your treatment has been planned according to current medical practices, but problems sometimes occur. Call your health care provider if you have any problems or questions after your procedure. What can I expect after the procedure? After the procedure, it is common to have: ?? Pain or discomfort around your incision site. ?? Drainage from your incision. Follow these instructions at home: ?? Take uldm-hux-trldevg and prescription medicines only as told by your health care provider. ?? If you were prescribed an antibiotic medicine, take it as told by your health care provider.??Donot stop taking the antibiotic even if you start to feel better. ?? Follow??instructions from your health care provider about: ? How to take care of your incision. ? When and how you should change your packing and bandage (dressing). Wash your hands with soap andwater before you change your dressing. If soap and water are not available, use hand matcher operator. ? When you should remove your dressing. ?? Do not take baths, swim, or use a hot tub until your health care provider approves. ?? Keep all follow-up visits as told by your health care provider. This is important. ?? Check your incision area every day for signs of infection. Check for: ? More redness, swelling, or pain. ? More fluid or blood. ? Warmth. ? Pus or a bad smell. Contact a health care provider if: ?? Your cyst or abscess returns. ?? You have a fever. ?? You have more redness, swelling, or pain around your incision. ?? You have more fluid or blood coming from your incision. ?? Your incision feels warm to the touch. ?? You have pus or a bad smell coming from your incision. Get help right away if: ?? You have severe pain or bleeding. ?? You cannot eat or drink without vomiting. ?? You have decreased urine output. ?? You become short of breath. ?? You have chest pain. ?? You cough up blood. ?? The area where the incision and drainage occurred becomes numb or it tingles. This information is not intended to replace advice given to you by your health care provider. Make sure you discuss any questions you have with your health care provider. Document Released: 09/03/2012 Document Revised: 2016 Document Reviewed: 04/01/2016 [employer] Interactive Patient Education ?? 2019 [employer]. Patient Education Skin Abscess A skin abscess is an infected area on or under your skin that contains pus and other material. An abscess can happen almost anywhere on your body. Some abscesses break open (rupture) on their own. Most continue to get worse unless they are treated. The infection can spread deeper into the body and into your blood, which can make you feel sick. Treatment usually involves draining the abscess. Follow these instructions at home: Abscess Care ?? If you have an abscess that has not drained, place a warm, clean, wet washcloth over the abscessseveral times a day. Do this as told by your doctor. ?? Follow instructions from your doctor about how to take care of your abscess. Make sure you: ? Cover the abscess with a bandage (dressing). ? Change your bandage or gauze as told by your doctor. ? Wash your hands with soap and water before you change the bandage or gauze. If you cannot use soap and water, use hand matcher operator. ?? Check your abscess every day for signs that the infection is getting worse. Check for: ? More redness, swelling, or pain. ? More fluid or blood. ? Warmth. ? More pus or a bad smell. Medicines ?? Take fclh-ofu-jsxuyfn and prescription medicines only as told by your doctor. ?? If you were prescribed an antibiotic medicine, take it as told by your doctor. Do not stop taking the antibiotic even if you start to feel better. General instructions ?? To avoid spreading the infection: ? Do not share personal care items, towels, or hot tubs with others. ? Avoid making mijt-pg-eamv contact with other people. ?? Keep all follow-up visits as told by your doctor. This is important. Contact a doctor if: ?? You have more redness, swelling, or pain around your abscess. ?? You have more fluid or blood coming from your abscess. ?? Your abscess feels warm when you touch it. ?? You have more pus or a bad smell coming from your abscess. ?? You have a fever. ?? Your muscles ache. ?? You have chills. ?? You feel sick. Get help right away if: ?? You have very bad (severe) pain. ?? You see red streaks on your skin spreading away from the abscess. This information is not intended to replace advice given to you by your health care provider. Make sure you discuss any questions you have with your health care provider. Document Released: 11/28/2008 Document Revised: 02/05/2017 Document Reviewed: 04/20/2016 [employer] Interactive Patient Education ?? 2019 [employer] * Addendum Note - Reginald Leigh MD - 12/28/2018 4:20 PM EDTAddended by: REGINALD LEIGH on: 12/28/2018 05:34 PM Modules accepted: Orders * Addendum Note - Reginald Leigh MD - 12/28/2018 4:20 PM EDTAddended by: REGINALD LEIGH on: 01/03/2019 05:58 PM Modules accepted: Orders documented in this encounter Plan of Treatment Upcoming Encounters Date Type Department Care Team (Late st Contact Info) Description 06/28/2024 9:40 AM EST Clinical Support [facility] [address] [employer] [place] [phone] 11/19/2024 1:40 PM EDT Office Visit [facility] [address] [place] [phone] Lyndsay Brewer DO [address] [facility] [address] [place] [address] Scheduled Orders Name Type Priority Associated Diagnoses Orde r Schedule OK DRAIN SKIN ABSCESS COMPLIC OK Charge Routine Abscess of right leg Abscess of left leg Ordered: 01/03/2019 documented as of this encounter Goals Goal [...] Procedure Name Priority Date/Time Associated Diagnosis Comments WOUND CULTURE (STAIN INCLUDED) Routine 12/28/2018 7:06 PM EDT Abscess of left leg WOUND CULTURE (STAIN INCLUDED) Routine 12/28/2018 7:06 PM EDT Abscess of right leg documented in this encounter Results * (ABNORMAL) WOUND CULTURE (STAIN INCLUDED) (12/28/2018 7:06 PM EDT) Culture Positive Growth(A) 2018 10:26 AM EDT [facility] Culture Sparse growth of Staphylococcus aureus SUSCEPTIBI LITY RESULT 01/01/2019 10:26 AM EDT [facility] Stain Abundant RBCs 01/01/2019 10:26 AM EDT [facility] Stain Rare WBCs 01/01/2019 10:26 AM EDT [facility] Stain No organisms seen 019 10:26 AM EDT [facility] Swab STRUCTURE OF LEFT LOWER LEG / Unknown 12/28/2018 7:06 PM EDT 12/28/2018 7:06 PM EDT Narrative Organism Antibiotic Method Susceptibility Staphylococcus aureus Ampicillin SUSCEPTIBILITY RESU LT Staphylococcus aureus Benzylpenicillin SUSCEPTIBILITY RESULT >=0.5 ug/mL: Resistant Staphylococcus aureus Beta Lactamase SUSCEPTIBILITY RE SULT ug/mL Staphylococcus aureus Ciprofloxacin SUSCEPTIBILITY RES ULT <=0.5 ug/mL: Susceptible Staphylococcus aureus Clindamycin SUSCEPTIBILITY RESU LT <=0.25 ug/mL: Susceptible Staphylococcus aureus Erythromycin SUSCEPTIBILITY RESU LT >=8 ug/mL: Resistant Staphylococcus aureus Gentamicin SUSCEPTIBILITY RESU LT <=0.5 ug/mL: Susceptible Staphylococcus aureus Gentamicin synergy SUSCEPTIBILIT Y RESULT Staphylococcus aureus Levofloxacin SUSCEPTIBILITY RESU LT <=0.12 ug/mL: Susceptible Staphylococcus aureus Linezolid SUSCEPTIBILITY RESU LT Staphylococcus aureus Moxifloxacin SUSCEPTIBILITY RESU LT <=0.25 ug/mL: Susceptible Staphylococcus aureus Nitrofurantoin SUSCEPTIBILITY RE SULT Staphylococcus aureus Oxacillin SUSCEPTIBILITY RESU LT 0.5 ug/mL: Susceptible Staphylococcus aureus Synercid SUSCEPTIBILITY RESU LT Staphylococcus aureus Rifampin SUSCEPTIBILITY RESU LT <=0.5 ug/mL: Susceptible Staphylococcus aureus Streptomycin synergy SUSCEPTIBIL ITY RESULT Staphylococcus aureus Tetracycline SUSCEPTIBILITY RESU LT <=1 ug/mL: Susceptible Staphylococcus aureus Tigecycline SUSCEPTIBILITY RESU LT Staphylococcus aureus Trimethoprim/Sulfa metho xazole SUSCEPTIBILITY RESULT <=10 ug/mL: Susceptible Staphylococcus aureus Vancomycin SUSCEPTIBILITY RESU LT 1 ug/mL: Susceptible Comment:Rifampin and Gentami sujit should not be used alone for antimicrobial therapy. For methicillin resistant staphylococci, ciprofloxacin should also not be used alone. us Reginald Leigh MD MICROBIOLOGY - GENERAL ORDERAB LES Final Result [facility] [address] [facility] [facility] , [place] [address] * (ABNORMAL) WOUND CULTURE (STAIN INCLUDED) (12/28/2018 7:06 PM EDT) Culture Positive Growth(A) 2018 8:51 PM EDT [facility] Culture Moderate growth of Staphylococcus aureus SUSCEPTIBI LITY RESULT 12/31/2018 8:51 PM EDT [facility] Stain Rare RBCs(A) 12/31/2018 8:51 PM EDT [facility] Stain Rare WBCs(A) 12/31/2018 8:51 PM EDT [facility] Stain Few Gram positive cocci, suggestive of staphylococci(A) 12/31/2018 8:51 PM EDT [facility] Swab STRUCTURE OF RIGHT LOWER LEG / Unknown 12/28/2018 7:06 PM EDT 12/28/2018 7:06 PM EDT Narrative Organism Antibiotic Method Susceptibility Staphylococcus aureus Ampicillin SUSCEPTIBILITY RESU LT Staphylococcus aureus Benzylpenicillin SUSCEPTIBILITY RESULT >=0.5 ug/mL: Resistant Staphylococcus aureus Beta Lactamase SUSCEPTIBILITY RE SULT ug/mL Staphylococcus aureus Ciprofloxacin SUSCEPTIBILITY RES ULT <=0.5 ug/mL: Susceptible Staphylococcus aureus Clindamycin SUSCEPTIBILITY RESU LT <=0.25 ug/mL: Susceptible Staphylococcus aureus Erythromycin SUSCEPTIBILITY RESU LT >=8 ug/mL: Resistant Staphylococcus aureus Gentamicin SUSCEPTIBILITY RESU LT <=0.5 ug/mL: Susceptible Staphylococcus aureus Gentamicin synergy SUSCEPTIBILIT Y RESULT Staphylococcus aureus Levofloxacin SUSCEPTIBILITY RESU LT <=0.12 ug/mL: Susceptible Staphylococcus aureus Linezolid SUSCEPTIBILITY RESU LT Staphylococcus aureus Moxifloxacin SUSCEPTIBILITY RESU LT <=0.25 ug/mL: Susceptible Staphylococcus aureus Nitrofurantoin SUSCEPTIBILITY RE SULT Staphylococcus aureus Oxacillin SUSCEPTIBILITY RESU LT 0.5 ug/mL: Susceptible Staphylococcus aureus Synercid SUSCEPTIBILITY RESU LT Staphylococcus aureus Rifampin SUSCEPTIBILITY RESU LT <=0.5 ug/mL: Susceptible Staphylococcus aureus Streptomycin synergy SUSCEPTIBIL ITY RESULT Staphylococcus aureus Tetracycline SUSCEPTIBILITY RESU LT <=1 ug/mL: Susceptible Staphylococcus aureus Tigecycline SUSCEPTIBILITY RESU LT Staphylococcus aureus Trimethoprim/Sulfa metho xazole SUSCEPTIBILITY RESULT <=10 ug/mL: Susceptible Staphylococcus aureus Vancomycin SUSCEPTIBILITY RESU LT 1 ug/mL: Susceptible Comment:Rifampin and Gentami sujit should not be used alone for antimicrobial therapy. For methicillin resistant staphylococci, ciprofloxacin should also not be used alone. us Reginald Leigh MD MICROBIOLOGY - GENERAL ORDERAB LES Final Result [facility], [address] , [place] [address] documented in this encounter Visit Diagnoses Diagnosis Abscess of right leg- Primary Cellulitis and abscess of leg, except foot Abscess of left leg Cellulitis and abscess of leg, except foot documented in this encounter Care Teams Chicken Raiser Relationship Specialty Start Date End Date Michelle Garrido APRN PCP - General Nurse Practitioner 01/09/17 01/14/21 documented as of this encounter
--- OUTSIDE RECORDS SUMMARY | 2024-05-29 15:49 | XMS_ITS | Encounter Summary ---
Author Organization [place] [address] Care Team Providers Care Online Retailer Name Role Phone Michelle Garrido APRN Primary Care Provider Unava ilable Reason for Visit * Reason Onset Date Comments Medication Problem 01/08/2019 Encounter Details Date Type Department Care Team (Late st Contact Info) Description 01/08/2019 Telephone [facility] [address] [place] [address] Michelle Garrido APRN Medication Problem Social History Tobacco Use Types [...] Refills Last Filled Start Date End Date hydroCHLOROthiazide (MICROZIDE) 12.5 mg Oral Capsule Take 1 Cap by mouth daily. 30 Cap 2 01/08/2019 04/07/2019 losartan (COZAAR) 50 mg Oral Tablet Take 1 Tab by mouth daily. 30 Tab 2 01/08/2019 04/07/2019 documented in this encounter Miscellaneous Notes * Telephone Encounter - Michelle Garrido APRN - 01/08/2019 8:48 PM EDT done * Telephone Encounter - Farzana Garrido MA - 01/08/2019 5:16 PM EDT Pt states that losartan-HCTZ is on back order for 3 months. He wants to know can you send them in separately for him? [facility] documented in this encounter Plan of Treatment Upcoming Encounters Date Type Department Care Team (Late st Contact Info) Description 06/28/2024 9:40 AM EST Clinical Support [facility] [address] [place] [phone] 11/19/2024 1:40 PM EDT Office Visit [facility] [address] [place] [address] Lyndsay Brewer DO [address] [facility] [address] [place] [address] documented as of this encounter Goals Goal [...] Discontinue Reason Start Date End Da te losartan-hydrochlorothiazi de (HYZAAR) 50-12.5 mg Oral TabletIndications:Essentia l hypertension Take 1 Tab by mouth daily. Availability 12/26/2018 01/08/2019 documented as of this encounter Care Teams Online Retailer Relationship Specialty Start Date End Date Michelle Garrido APRN PCP - General Nurse Practitioner 01/09/17 01/14/21 documented as of this encounter
--- OUTSIDE RECORDS SUMMARY | 2024-05-29 15:49 | XMS_ITS | Encounter Summary ---
Author Organization [place] [address] Care Team Providers Care Cpr Instructor Name Role Phone Michelle Garrido APRN Primary Care Provider Unava ilable Reason for Visit * Reason Comments Medication Refill Encounter Details Date Type Department Care Team (Late st Contact Info) Description 08/02/2018 Refill [facility] [address] [place] [address] Michelle Garrido APRN Medication Refill [...] Assessment Author No 07/11/2017 9:14 AM EST Riya Choi RMA documented as of this encounter Mental Status * Because of a physical, mental or emotional condition, does this person have serious difficulty concentrating, remembering or making decisions? Answer Entry Date Author No 07/11/2017 9:14 AM EST Riya Choi RMA documented in this encounter Ordered Prescriptions Prescription Sig Dispense Quantity Refills Last Filled Start Date End Date VIBERZI 100 mg Oral TabletIndications: Irritable bowel syndrome with diarrhea TAKE 1 TABLET BY MOUTH TWICE A DAY 60 Tab 08/03/2018 09/03/2018 documented in this encounter Miscellaneous Notes * Telephone Encounter - Farzana Garrido MA - 08/03/2018 8:13 AM EST ALFA: as expected 08/03/18 LRF alfa 07/04/18 GUS 06/21/18 documented in this encounter Plan of Treatment Upcoming Encounters Date Type Department Care Team (Late st Contact Info) Description 06/28/2024 9:40 AM EST Clinical Support [facility] [place] [address] [place] [address] 11/19/2024 1:40 PM EDT Office Visit [facility] [address] [place] [address] Lyndsay Brewer DO [address] [place] [address] documented as of this encounter Goals Goal [...] TABLET BY MOUTH TWICE A DAY Reorder 06/27/2018 08/02/2018 documented as of this encounter Care Teams Cpr Instructor Relationship Specialty Start Date End Date Michelle Garrido APRN PCP - General Nurse Practitioner 01/09/17 01/14/21 documented as of this encounter
--- OUTSIDE RECORDS SUMMARY | 2024-05-29 15:50 | XMS_ITS | Encounter Summary ---
Author Organization [place] [address] Care Team Providers Care R&D Engineer Name Role Phone Michelle Garrido APRN Primary Care Provider Unava ilable Reason for Visit * Reason Comments Medication Refill Encounter Details Date Type Department Care Team (Late st Contact Info) Description 11/21/2017 Refill SEP [address] [address] [place] [address] Michelle Garrido APRN Medication Refill [...] of Assessment Author No 07/11/2017 9:14 AM iRya Pérez RMA * Is the person blind [...] BY MOUTH TWICE A DAY 60 Tab 11/21/2017 12/21/2017 documented in this encounter Miscellaneous Notes * Telephone Encounter - Michelle Phillips MA - 11/21/2017 12:17 PM EDT GUS 10/27/17 documented in this encounter Plan of Treatment Upcoming Encounters Date Type Department Care Team (Late st Contact Info) Description 06/28/2024 9:40 AM EST Clinical Support AN[facility] [address] [place] [address] 11/19/2024 1:40 PM EDT Office Visit SEP Neurology [facility] [address] [place] [address] Lyndsay Brewer DO [address] [place] [address] documented as of this encounter Goals Goal Patient Goal Type Associated Problems Recent Progress Patient-Stated? Author Blood Pressure < 140/90 Blood Pressure 134/84(2023 1:16 PM EST) Yana Pina RMA Eat better, exercise, reach an ideal body weight General Yana iPna RMA Stay Tobacco Free Lifestyle Yana Pina RMA documented as of this encounter Visit Diagnoses Diagnosis Irritable bowel syndrome with diarrhea Irritable bowel syndrome documented in this encounter Discontinued Medications Medication Sig Discontinue Reason Start Date End Da te VIBERZI 100 mg Oral TabletIndications:Irrita ble bowel syndrome with diarrhea TAKE 1 TABLET BY MOUTH TWICE A DAY Reorder 10/17/2017 11/21/2017 documented as of this encounter Care Teams R&D Engineer Relationship Specialty Start Date End Date Michelle Garrido APRN PCP - General Nurse Practitioner 01/09/17 01/14/21 documented as of this encounter
--- OUTSIDE RECORDS SUMMARY | 2024-05-29 15:50 | XMS_ITS | Encounter Summary ---
Author Organization [place] [address] Care Team Providers Care Telegraph Service Rater Name Role Phone Michelle Garrido APRN Primary Care Provider Unava ilable Reason for Visit * Reason Comments Diarrhea x 4 days Fever x 4 days Abdominal Pain x 4 days Generalized Body Aches x 4 days Encounter Details Date Type Department Care Team (Late st Contact Info) Description 03/07/2018 11:00 AM EDT Office Visit [facility] [address] [place] [address] Marcela De Leon MD Diarrhea, unspecified type (Primary Dx); BPH without urinary obstruction Social History Tobacco [...] Reading Time Taken Comments Blood Pressure 128/84 03/07/2018 11:02 AM EDT Pulse 96 03/07/2018 11:02 AM EDT Temperature 36.9 ??C (98.4 ??F) 03/07/2018 11:02 AM E DT Respiratory Rate - - Oxygen Saturation 97% 03/07/2018 11:02 AM EDT Inhaled Oxygen Concentration - - Weight 82.6 kg (182 lb) 03/07/2018 11:02 AM EDT Height 170.2 cm (5' 7 ) 03/07/2018 11:02 AM EDT Body Mass Index 28.51 03/07/2018 11:02 AM EDT documented in this encounter Functional [...] as needed. for erectile dysfunction 90 Tab 03/07/2018 9 documented in this encounter Progress Notes * Marcela De Leon MD - 03/07/2018 11:00 AM EDT Vitals: 03/07/18 1102 BP: 128/84 BP Location: Left arm Patient Position: Sitting Pulse: 96 Temp: 98.4 ??F (36.9 ??C) TempSrc: Oral SpO2: 97% Weight: 182 lb (82.6 kg) Height: 5' 7 (1.702 m) Chief Complaint Patient presents with ??? Diarrhea x 4 days ??? Fever x 4 days ??? Abdominal Pain x 4 days ??? Generalized Body Aches x 4 days HPI: Zuhair is coming in because he has had crampy abd pain,diarrhea,fever and body aches for the last 4 days. No recent antibiotic use. Review of Systems HENT: Positive for rhinorrhea. Gastrointestinal: Negative for blood in stool, nausea and vomiting. Physical Exam Cardiovascular: Normal rate and regular rhythm. Pulmonary/Chest: Effort normal and breath sounds normal. Abdominal: Soft. He exhibits no distension and no mass. There is tenderness (generalized mild tenderness). Vitals reviewed. See time date stamps in the EMR for other pertient history components reviewed as part of today's encounter. [facility]ED WITH [facility] Documentation Medication Compliance: Compliant all the time Understanding of Current Medications: Good Medication Compliance Barriers: None or N/A Self-Management Tools: N/A, no chronic conditions Self-Management Ability: Good Willingness to Adopt Healthy Behaviors: Good Potential Barriers to completing treatment plans today: No significant barriers [facility] WITH [facility] Flowsheet was completed/reviewed as part of today's visit. Educated patient regarding the diagnosis, medication/treatment, goals, self- management tools and instructions based on their care plan. They verbalized understanding of the education given on the After Visit Summary [AVS] for today's visit. A copy of the AVS was provided either in writing and/or via [employer]. A new medicine was not prescribed on this visit. Assessment Diagnoses and all orders for this visit: Diarrhea, unspecified type Comments: BRAT diet Orders: - C DIFF TOXIN DNA; Future - STOOL CULTURE (NO STAIN); Future - SHIGA TOXIN; Future - OVA AND PARASITE BASIC; Future BPH without urinary obstruction - tadalafil (CIALIS) 5 mg Oral Tablet; Take 1 Tab by mouth as needed. for erectile dysfunction Dispense: 90 Tab; Refill: 0 documented in this encounter Plan of Treatment Upcoming Encounters Date Type Department Care Team (Late st Contact Info) Description 06/28/2024 9:40 AM EST Clinical Support [place] [address] [place] [address] 11/19/2024 1:40 PM EDT Office Visit SEP Neurology [facility] [address] [place] [address] [place]man Lyndsay HarrellDO conrado [address] [place] [address] Scheduled Orders Name Type Priority Associated Diagnoses Orde r Schedule C DIFF TOXIN DNA Microbiology Routine Diarrhea, unspecified type 1 Occurrences starting 03/07/2018 until 03/08/2019 STOOL CULTURE (NO STAIN) Microbiology Routine Diarrhea, unspecified type 1 Occurrences starting 03/07/2018 until 03/08/2019 SHIGA TOXIN Microbiology Routine Diarrhea, unspecified type 1 Occurrences starting 03/07/2018 until 03/08/2019 OVA AND PARASITE BASIC Microbiology Routine Diarrhea, unspecified type 1 Occurrences starting 03/07/2018 until 03/07/2019 documented as of this encounter Goals Goal Patient Goal Type Associated Problems Recent Progress Patient-Stated? Author Blood Pressure < 140/90 Blood Pressure 134/84(2023 1:16 PM EST) No Yana Choi RMA Eat better, exercise, reach an ideal body weight General No Yana Choi RMJane Stay Tobacco Free Lifestyle No Yana Choi RMA documented as of this encounter Visit Diagnoses Diagnosis Diarrhea, unspecified type- Primary BPH without urinary obstruction Hypertrophy of prostate without urinary obstruction and other lower urinary tract symptoms (LUTS) documented in this encounter Discontinued Medications Medication Sig Discontinue Reason Start Date End Da te CIALIS 5 mg Oral TabletIndications:BPH without urinary obstruction TAKE 1 TABLET BY MOUTH NEEDED FOR ERECTILE DYSFUNCTION Reorder 12/22/2017 03/07/2018 documented as of this encounter Care Teams Telegraph Service Rater Relationship Specialty Start Date End Date Michelle Garrido APRN PCP - General Nurse Practitioner 01/09/17 01/14/21 documented as of this encounter
--- OUTSIDE RECORDS SUMMARY | 2024-05-29 15:50 | XMS_ITS | Encounter Summary ---
Author [place] [address] Care Team Providers Care Outside Contractor Sales Name Role Phone Michelle Garrido APRN Primary Care Provider Unava ilable Reason for Visit * Reason Onset Date Comments Prior Authorization 12/28/2017 kiana Encounter Details Date Type Department Care Team (Late st Contact Info) Description 12/28/2017 Telephone [facility] [employer] [address] [place] [address] Michelle Garrido APRN Prior Authorization [...] Assessment Author No 07/11/2017 9:14 AM Riya Péreztina ESTEFANY Garcia * Because of a physical, mental or emotional condition, does this person have difficulty doing errands alone such as visiting a doctor's office or shopping? Answer Date of Assessment Author No 07/11/2017 9:14 AM EST Choi Riya sosa ESTEFANY Garcia documented as of this encounter Mental Status * Because of a physical, mental or emotional condition, does this person have serious difficulty concentrating, remembering or making decisions? Answer Entry Date Author No 07/11/2017 9:14 AM EST Choi Riya sosa ESTEFANY Garcia documented in this encounter Miscellaneous Notes * Telephone Encounter - Farzana Garrido MA - 12/28/2017 2:48 PM EDT PA initiated on kiana and it was approved from 09/29/2017 - 12/28/2018 documented in this encounter Plan of Treatment Upcoming Encounters Date Type Department Care Team (Late st Contact Info) Description 06/28/2024 9:40 AM EST Clinical Support SEP [address] [place] [address] 11/19/2024 1:40 PM EDT Office Visit SEP Neurology [facility] [address] [place] [address] Lyndsay Brewer DO [address] [facility] [address] [place] [address] documented as of this encounter [...] on filedocumented in this encounter Care Teams Outside Contractor Sales Relationship Specialty Start Date End Date Michelle Garrido APRN PCP - General Nurse Practitioner 01/09/17 01/14/21 documented as of this encounter
--- OUTSIDE RECORDS SUMMARY | 2024-05-29 15:50 | XMS_ITS | Encounter Summary ---
Author Organization [place] [address] Care Team Providers Care Preschool Paraprofessional Name Role Phone Michelle Garrido APRN Primary Care Provider Willie aguila Encounter Details Date Type Department Care Team (Late st Contact Info) Description 06/27/2018 9:16 AM [facility] Hospital Encounter [facility] Referral Lab [address] [place] [address] Augie Ramires MD [address] [place] [address] Pain in left hip; Presence of left artificial hip joint Social History Tobacco Use Types Packs/Day Years [...] AM EST Clinical Support [place] [address] [place] [address] 11/19/2024 1:40 PM EDT Office Visit SEP Neurology [facility] [address] [place] [address] Lyndsay Brewer, DO [address] [place] [address] documented as of this encounter Goals Goal Patient Goal Type Associated Problems Recent Progress Patient-Stated? Author Blood Pressure < 140/90 Blood Pressure 134/84(2023 1:16 PM EST) No Yana Choi RMA Eat better, exercise, reach an ideal body weight General No Yana Choi RMA Stay Tobacco Free Lifestyle No Yana Choi RMA documented as of this encounter Results * SEDIMENTATION RATE AUTOMATED (06/29/2018 9:51 AM EST) Sed Rate 17 0 - 20 mm/hr 06/29/2018 3:40 PM EST [facility] Blood Venipuncture / Unknown 06/29/2018 9:51 AM EST 06/29/2018 9:51 AM EST us Augie Ramires MD HEMATOLOGY ORDERABLE S Final Result [facility] [address] [place] [address] * (ABNORMAL) CBC WITH DIFF (06/29/2018 9:51 [...] 06/29/2018 3:29 PM EST [facility] MCHC 32.4 30.7 - 35.5 g/dL 06/29/2018 3:29 PM EST [facility] RDW 12.4 <=14.9 % 06/29/2018 3:29 PM EST [facility] Platelet 286 155 - 369 x10(3)/mcL 06/29/2018 3:29 PM EST [facility] MPV 10.1 8.8 - 12.5 fL 06/29/2018 3:29 PM EST [facility] Neut Percent 74.4 % 06/29/2018 3:29 PM EST [facility] Comment:Neutrophils equals s egs plus bands Imm Gran% 0.7 % 06/29/2018 3:29 PM EST [facility] Comment:Automated count of m etamyelocytes, myelocytes and promyelocytes. Lymph Percent 18.0 % 06/29/2018 3:29 PM EST [facility] Gibson Percent 5.9 % 06/29/2018 3:29 PM EST [facility] Eos Percent 0.6 % 06/29/2018 3:29 PM EST [facility] Baso Percent 0.4 % 06/29/2018 3:29 PM EST [facility] Neut # 8.0(H) 1.6 - 6.1 x10(3)/mcL 06/29/2018 3:29 PM EST [facility] Comment:Neutrophils equals s egs plus bands IMMGRAN# 0.1 0.0 - 0.1 x10(3)/mcL 06/29/2018 3:29 PM EST [facility] Comment:Automated count of m etamyelocytes, myelocytes and promyelocytes. An absolute IG <0.1 is reported as 0.0. Lymph # 1.9 1.2 - 3.9 x10(3)/mcL 06/29/2018 3:29 PM EST [facility] Gibson # 0.6 0.3 - 0.9 x10(3)/mcL 06/29/2018 3:29 PM EST [facility] Eos# 0.1 0.0 - 0.5 x10(3)/mcL 06/29/2018 3:29 PM EST [facility] Baso # 0.0 0.0 - 0.1 x10(3)/mcL 06/29/2018 3:29 PM EST [employer] Blood Venipuncture / Unknown 06/29/2018 9:51 AM EST 06/29/2018 9:51 AM EST Augie Ramires MD HEMATOLOGY ORDERABLE S Final Result Performing Organization Address [facility] Co de Phone Number [employer] [facility] [place] [address] * (ABNORMAL) C-REACTIVE PROTEIN (06/29/2018 9:51 AM EST) CRP 7.62(H) <=5.00 mg/L 06/29/2018 3:56 PM EST [employer] Blood Venipuncture / Unknown 06/29/2018 9:51 AM EST 06/29/2018 9:51 AM EST Augie Ramires MD CHEMISTRY ORDERABLES Final Result Performing Organization Address [facility] Co de Phone Number [address] , [place] [address] documented in this encounter Visit Diagnoses Diagnosis Pain in left hip Pain in joint, pelvic region and thigh Presence of left artificial hip joint Hip joint replacement by other means documented in this encounter Orders Lab Orders Without Results Count Last Ordered D ate First Ordered Date CHROMIUM - REF LAB 1 06/27/2018 [place] - REF LAB 1 06/27/2018 documented in this encounter Additional Health Concerns [...] documented as of this encounter Care Teams Preschool Paraprofessional Relationship Specialty Start Date End Date Michelle Garrido APRN PCP - General Nurse Practitioner 01/09/17 01/14/21 documented as of this encounter
--- OUTSIDE RECORDS SUMMARY | 2024-05-29 15:50 | XMS_ITS | Encounter Summary ---
Author Organization [place] [address] Care Team Providers Care Gas Truck Driver Name Role Phone Michelle Garrido APRN Primary Care Provider Unava ilable Reason for Visit * Reason Comments Medication Refill Encounter Details Date Type Department Care Team (Late st Contact Info) Description 12/21/2017 Refill [facility] [address] [place] [address] Michelle Garrido APRN Medication Refill [...] MOUTH NEEDED FOR ERECTILE DYSFUNCTION 90 Tab 12/22/2017 8 VIBERZI 100 mg Oral TabletIndications: Irritable bowel syndrome with diarrhea TAKE 1 TABLET BY MOUTH TWICE A DAY 60 Tab 12/22/2017 8 documented in this encounter Miscellaneous Notes * Telephone Encounter - Farzana Garrido MA - 12/22/2017 3:08 PM EDT Pt advised. * Telephone Encounter - Farzana Garrido MA - 12/22/2017 12:49 PM EDT DENZEL: as expected 12/22/17 LRF 11/21/17 GUS 10/27/17 documented in this encounter Plan of Treatment Upcoming Encounters Date Type Department Care Team (Late st Contact Info) Description 06/28/2024 9:40 AM EST Clinical Support [place] [address] [place], [place] [address] 11/19/2024 1:40 PM EDT Office Visit SEP Neurology [facility] [address] [place] [address] Lyndsay Brewer DO [address] [place] [address] documented as of this encounter Goals Goal [...] End Da te VIBERZI 100 mg Oral TabletIndications:Irri table bowel syndrome with diarrhea TAKE 1 TABLET BY MOUTH TWICE A DAY Reorder 11/21/2017 12/21/2017 CIALIS 5 mg Oral TabletIndications:BPH without urinary obstruction TAKE 1 TABLET BY MOUTH NEEDED FOR ERECTILE DYSFUNCTION Reorder 09/26/2017 12/21/2017 documented as of this encounter Care Teams Gas Truck Driver Relationship Specialty Start Date End Date Michelle Garrido APRN PCP - General Nurse Practitioner 01/09/17 01/14/21 documented as of this encounter
--- OUTSIDE RECORDS SUMMARY | 2024-05-29 15:50 | XMS_ITS | Encounter Summary ---
Author Organization [place] [address] Care Team Providers Care Commissary Agent Name Role Phone Michelle Garrido APRN Primary Care Provider Unava ilable Reason for Visit * Reason Onset Date Comments Prior Authorization 03/20/2018 Encounter Details Date Type Department Care Team (Late st Contact Info) Description 03/20/2018 Telephone [facility] [employer] [address] [place] [address] Michelle Garrido APRN Prior Authorization Social History Tobacco Use Types Packs/Day Years [...] Author No 07/11/2017 9:14 AM AIMEE Riya Choi RMA documented as of this encounter Mental Status * Because of a physical, mental or emotional condition, does this person have serious difficulty concentrating, remembering or making decisions? Answer Entry Date Author No 07/11/2017 9:14 AM Riya Pérez RMA documented in this encounter Miscellaneous Notes * Telephone Encounter - Farzana Garrido MA - 03/20/2018 11:42 AM EDT During appt today pt states that cialis needs a PA. I called pharmacy. Pharm states that rx could not be filled because it states that generic is available but it is 20 mg. I told her that the PA wasdone last year on Cialis and approved until 04/05/18, shouldn't matter what that generic is available. Niecy pharmacist is going to call the insurance and call me back. Forrest informed that I do not have an answer for him and will keep him informed when I know more. He states that he does not think that he can take a 20 mg it will be too much. documented in this encounter Plan of Treatment Upcoming Encounters Date Type Department Care Team (Late st Contact Info) Description 06/28/2024 9:40 AM EST Clinical Support [place] [address] [employer] [place] [phone] 11/19/2024 1:40 PM EDT Office Visit SEP Neurology [facility] [address] [place] [address] Lyndsay Brewer DO [address] [place] [address] documented as of this encounter [...] on filedocumented in this encounter Care Teams Commissary Agent Relationship Specialty Start Date End Date Michelle Garrido APRN PCP - General Nurse Practitioner 01/09/17 01/14/21 documented as of this encounter
--- OUTSIDE RECORDS SUMMARY | 2024-05-29 15:50 | XMS_ITS | Encounter Summary ---
Author Organization [place] [address] Care Team Providers Care Professor Of Physics Name Role Phone Michelle Garrido APRN Primary Care Provider Unava ilable Reason for Visit * Reason Onset Date Comments Medication Refill 03/19/2018 Encounter Details Date Type Department Care Team (Late st Contact Info) Description 03/19/2018 Telephone [facility] [employer] [address] [place] [address] Michelle Garrido APRN Medication Refill [...] encounter Miscellaneous Notes * Telephone Encounter - Lissett Montano - 03/19/2018 9:47 AM EDT Patient needs a PA and Refill on tadalafil (CIALIS) 5 mg Oral Tablet [id number] [place] [address] - [address] [place] [address] - [phone] documented in this encounter Plan of Treatment Upcoming Encounters Date Type Department Care Team (Late st Contact Info) Description 06/28/2024 9:40 AM EST Clinical Support SEP [facility] [address] [place] [address] 11/19/2024 1:40 PM EDT Office Visit SEP Neurology [facility] [address] [place] [address] Lyndsay Brewer DO [address] [place] [address] documented as of this encounter [...] on filedocumented in this encounter Care Teams Professor Of Physics Relationship Specialty Start Date End Date Michelle Garrido APRN PCP - General Nurse Practitioner 01/09/17 01/14/21 documented as of this encounter
--- OUTSIDE RECORDS SUMMARY | 2024-05-29 15:50 | XMS_ITS | Encounter Summary ---
Author Organization [place] [address] Care Team Providers Care Senior C Developer Name Role Phone Michelle Garrido APRN Primary Care Provider Unava ilable Reason for Visit * Reason Onset Date Comments Medication Refill 03/21/2018 Encounter Details Date Type Department Care Team (Late st Contact Info) Description 03/21/2018 Refill [facility] [address] [place] [address] Michelle Garrido APRN Medication Refill [...] CAPSULE BY MOUTH TWICE A DAY NEEDED 60 Cap 5 03/21/2018 8 documented in this encounter Plan of Treatment Upcoming Encounters Date Type Department Care Team (Late st Contact Info) Description 06/28/2024 9:40 AM EST Clinical Support SEP [facility] [address] [place] [address] 11/19/2024 1:40 PM EDT Office Visit SEP Neurology [facility] [address] [place] [address] Lyndsay Brewer DO [address] [facility] [address] [place] [address] documented as of this encounter [...] BY MOUTH TWICE A DAY NEEDED Reorder 01/17/2018 03/21/2018 documented as of this encounter Care Teams Senior C Developer Relationship Specialty Start Date End Date Michelle Garrido APRN PCP - General Nurse Practitioner 01/09/17 01/14/21 documented as of this encounter
--- OUTSIDE RECORDS SUMMARY | 2024-05-29 15:50 | XMS_ITS | Encounter Summary ---
Author Organization [place] [address] Care Team Providers Care Sorting And Folding Supervisor Name Role Phone Michelle Garrido APRN Primary Care Provider Unava ilable Reason for Visit * Reason Onset Date Comments Medication Refill 01/17/2018 Encounter Details Date Type Department Care Team (Late st Contact Info) Description 01/17/2018 Telephone [facility] [employer] [address] [place] [address] Michelle Garrido APRN Medication Refill [...] MOUTH TWICE A DAY NEEDED 60 Cap 2 01/17/2018 8 documented in this encounter Miscellaneous Notes * Telephone Encounter - Maddy White RMA - 01/17/2018 4:57 PM EDT Patient advised medication was sent to the pharmacy. * Telephone Encounter - [place] Green - 01/17/2018 4:52 PM EDT Medication Refill: Name of medication: celecoxib (CELEBREX) 200 mg Oral Capsule DENZEL: Pharmacy:[id number] [place] [address] [address] [facility] [phone] Last Appointment:10/27/17 Next Appointment:[phone] Number to contact patient: documented in this encounter Plan of Treatment Upcoming Encounters Date Type Department Care Team (Late st Contact Info) Description 06/28/2024 9:40 AM EST Clinical Support [place] [address] [place] [address] 11/19/2024 1:40 PM EDT Office Visit [facility] Neurology [facility] [address] [place] [address] Lyndsay Brewer DO [address] [place] [address] documented as of this encounter Goals Goal [...] BY MOUTH TWICE A DAY NEEDED Reorder 11/16/2017 01/17/2018 documented as of this encounter Care Teams Sorting And Folding Supervisor Relationship Specialty Start Date End Date Michelle Garrido APRN PCP - General Nurse Practitioner 01/09/17 01/14/21 documented as of this encounter
--- OUTSIDE RECORDS SUMMARY | 2024-05-29 15:50 | XMS_ITS | Encounter Summary ---
Author Organization [place] [address] Care Team Providers Care Renovator Machine Operator Name Role Phone Michelle Garrido APRN Primary Care Provider Unava ilable Reason for Visit * Reason Comments Medication Refill Encounter Details Date Type Department Care Team (Late st Contact Info) Description 2017 Refill [facility] [address] [place] [address] Michelle Garrido APRN Medication Refill [...] TWICE A DAY NEEDED 60 Cap 2 11/16/2017 8 documented in this encounter Miscellaneous Notes * Telephone Encounter - Lizbeth Pelaez - 11/15/2017 11:09 AM EDT He stated he discussed with Michelle and she would fill. Still waiting. * Telephone Encounter - Farzana Garrido MA - 11/13/2017 11:23 AM EDT Please advise this was last sent by Dr. Ramires. documented in this encounter Plan of Treatment Upcoming Encounters Date Type Department Care Team (Late st Contact Info) Description 06/28/2024 9:40 AM EST Clinical Support [place] [address] [employer] [place] [phone] 11/19/2024 1:40 PM EDT Office Visit SEP Neurology [facility] [address] [place] [address] Lyndsay Brewer DO [address] [place] [address] documented as of this encounter Goals [...] Take 1 Cap by mouth 2 times daily as needed for Pain. Reorder 07/26/2017 2017 documented as of this encounter Care Teams Renovator Machine Operator Relationship Specialty Start Date End Date Michelle Garrido APRN PCP - General Nurse Practitioner 01/09/17 01/14/21 documented as of this encounter
--- OUTSIDE RECORDS SUMMARY | 2024-05-29 15:50 | XMS_ITS | Encounter Summary ---
Author Organization [place] [address] Care Team Providers Care Special Service Officer Name Role Phone Michelle Garrido APRN Primary Care Provider Unava ilable Reason for Visit * Reason Comments Medication Refill Encounter Details Date Type Department Care Team (Late st Contact Info) Description 03/29/2018 Refill [facility] [address] [place] [address] Michelle Garrido APRN Medication Refill [...] BY MOUTH TWICE A DAY 60 Tab 03/30/2018 04/16/2018 documented in this encounter Miscellaneous Notes * Telephone Encounter - Farzana Garrido MA - 03/29/2018 2:17 PM EDT ALFA: as expected 03/29/18 LRF 02/26/18 per alfa WEBER 03/20/18 documented in this encounter Plan of Treatment Upcoming Encounters Date Type Department Care Team (Late st Contact Info) Description 06/28/2024 9:40 AM EST Clinical Support [place] [address] [place] [address] 11/19/2024 1:40 PM EDT Office Visit [facility] Neurology [facility] [address] [place] [address] Lyndsay Brewer DO [address] [facility] [address] [place] [address] documented as of this encounter Goals Goal [...] TABLET BY MOUTH TWICE A DAY Reorder 02/22/2018 03/29/2018 documented as of this encounter Care Teams Special Service Officer Relationship Specialty Start Date End Date Michelle Garrido APRN PCP - General Nurse Practitioner 01/09/17 01/14/21 documented as of this encounter
--- OUTSIDE RECORDS SUMMARY | 2024-05-29 15:50 | XMS_ITS | Encounter Summary ---
Author Organization [place] [address] Care Team Providers Care Slot Floorman Name Role Phone Michelle Garrido APRN Primary Care Provider Unava ilable Reason for Visit * Reason Comments Medication Refill Encounter Details Date Type Department Care Team (Late st Contact Info) Description 05/23/2018 Refill [facility] [address] [place] [address] Renu Doll MD Medication Refill [...] Assessment Author No 07/11/2017 9:14 AM Riya Péerz RMA * Does this person have serious [...] 2 TIMES A DAY 120 Each 2 05/23/2018 01/09/2019 documented in this encounter Plan of Treatment Upcoming Encounters Date Type Department Care Team (Late st Contact Info) Description 06/28/2024 9:40 AM EST Clinical Support [facility] [address] [place] [address] 11/19/2024 1:40 PM EDT Office Visit SEP Neurology [facility] [address] [place] [address] Lyndsay Brewer DO [address] [facility] [address] [place] [address] documented as of this encounter [...] BY MOUTH 2 TIMES A DAY Reorder 09/06/2017 05/23/2018 documented as of this encounter Care Teams Slot Floorman Relationship Specialty Start Date End Date Michelle Garrido, YOLI PCP - General Nurse Practitioner 01/09/17 01/14/21 documented as of this encounter
--- OUTSIDE RECORDS SUMMARY | 2024-05-29 15:50 | XMS_ITS | Encounter Summary ---
Author Organization [place] [address] Care Team Providers Care Mid Level Java Developer Name Role Phone Michelle Garrido APRN Primary Care Provider Unava ilable Reason for Visit * Reason Onset Date Comments Medication Refill 03/22/2018 Encounter Details Date Type Department Care Team (Late st Contact Info) Description 03/22/2018 Refill [facility] [address] [place] [address] Michelle Garrido APRN Medication Refill [...] Refills Last Filled Start Date End Date loratadine (CLARITIN) 10 mg Oral TabletIndications: Seasonal allergic rhinitis due to other allergic trigger Take 1 Tab by mouth daily. 90 Tab 1 03/22/2018 9 celecoxib (CELEBREX) 200 mg Oral Capsule TAKE 1 CAPSULE BY MOUTH TWICE A DAY NEEDED 180 Cap 1 03/22/2018 9 documented in this encounter Plan of Treatment Upcoming Encounters Date Type Department Care Team (Late st Contact Info) Description 06/28/2024 9:40 AM EST Clinical Support [facility] [address] [place] [address] 11/19/2024 1:40 PM EDT Office Visit SEP Neurology [facility] [address] [place] [address] Lyndsay Brewer DO [address] [place] [address] documented as of this encounter [...] BY MOUTH TWICE A DAY NEEDED Reorder 03/21/2018 03/22/2018 loratadine (CLARITIN) 10 mg Oral TabletIndications:Season al allergic rhinitis due to other allergic trigger Take 1 Tab by mouth daily. Reorder 02/27/2018 03/22/2018 documented as of this encounter Care Teams Mid Level Java Developer Relationship Specialty Start Date End Date Michelle Garrido APRN PCP - General Nurse Practitioner 01/09/17 01/14/21 documented as of this encounter
--- OUTSIDE RECORDS SUMMARY | 2024-05-29 15:50 | XMS_ITS | Encounter Summary ---
Author Organization [place] [address] Care Team Providers Care Party Host/Hostess Name Role Phone Michelle Garrido APRN Primary Care Provider Unava ilable Reason for Referral * Consultation (Routine) - Closed Specialty Diagnoses / Procedures Referred By Gus kunz Referred To Contact Diagnoses Screening for colon cancer Michelle Garrido APRN [facility] [address] [place] [address] Phone: tel: fax: Referral ID Status Reason Start Date Expiration Date Visits Re quested Visits Authorized [id number] Closed 06/21/2018 06/21/2019 1 99 Question Answer Is this referral for colon cancer screening? Yes Reason for Visit * Reason Comments Cough Congestion Encounter Details Date Type Department Care Team ([facility] Contact Info) Description 06/21/2018 9:45 AM EST Office Visit [place] [address] [place] [address] Michelle Garrido APRN Viral URI with cough (Primary Dx); Mild intermittent asthma with acute exacerbation; Exposure to strep throat; Skin lesion of face; Need for shingles vaccine; Screening for colon cancer Social History Tobacco Use Types Packs/Day Years [...] Sign Reading Time Taken Comments Blood Pressure 144/86 06/21/2018 9:27 AM EST Pulse 79 06/21/2018 9:27 AM EST Temperature 36.6 ??C (97.8 ??F) 06/21/2018 9:27 AM ES T Respiratory Rate - - Oxygen Saturation 95% 06/21/2018 9:27 AM EST Inhaled Oxygen Concentration - - Weight 89.4 kg (197 lb) 06/21/2018 9:27 AM EST Height 172.7 cm (5' 8 ) 06/21/2018 9:27 AM EST Body Mass Index 29.95 06/21/2018 9:27 AM EST documented in this encounter Functional [...] Refills Last Filled Start Date End Date varicella-zoster gE-AS01B, PF, (SHINGRIX, PF,) 50 mcg/0.5 mL IM Suspension for ReconstitutionInd ications:Need for shingles vaccine Inject 0.5 mL into the muscle once for 1 dose. Inject 0.5ml intramuscularly and repeat with one dose 2 to 6 months later 1 Each 1 8 06/21/20 18 predniSONE (DELTASONE) 10 mg Oral TabletIndications :Mild intermittent asthma with acute exacerbation Take 4 tabs once daily for 2 days, then 3 tabs daily x2 days, then 2 tabs daily x2 days and then 1 tab daily x2 days. 20 Tab 8 11/18/19 19 benzonatate (TESSALON) 200 mg Oral CapsuleIndication s:Viral URI with cough Take 1 Cap by mouth 3 times daily as needed for Cough for up to 10 days. 30 Cap 8 07/01/19 19 documented in this encounter Progress Notes * Michelle Garrido, YOLI - 06/21/2018 9:45 AM EST Vitals: 06/21/18 0927 BP: 144/86 Pulse: 79 Temp: 97.8 ??F (36.6 ??C) TempSrc: Oral SpO2: 95% Weight: 197 lb (89.4 kg) Height: 5' 8 (1.727 m) Chief Complaint Patient presents with ??? Cough ??? Congestion HPI: URI/Sinus symptoms: ?? complains of congestion, sore throat, productive cough, generalized sinus pain, bilateral ear itching, yellow nasal discharge and hoarseness for 3 days. ?? Associated symptoms include shortness of breath, wheezing and sputum production. ?? Symptom severity is described as Moderate and are worsening. ?? What treatments have you tried at home? Afrin, tylenol, and nebulizer. ?? Are home treatments impacting your symptoms at all? yes ?? Do you get recurrent or seasonal symptoms multiple times per year? yes ?? Do you have any history of lung disease, asthma, or recurrent allergies? yes asthma ?? The Patient does not smoke cigarettes. Son dx with strep yesterday and has had similar symptoms. Pt describes sweats and chills with no measured fever. Has been having increased wheezing/SOA. Uses albuterol rarely at baseline but now needing it every 3-4 hours. Also noticed 3 days ago a raised red area on right side of face. No known injury, pt denies burning/itching/pain. Review of Systems Constitutional: Positive for chills and diaphoresis. Negative for fever. HENT: Positive for congestion, postnasal drip, rhinorrhea, sinus pressure, sneezing and voice change. Negative for ear pain (itching), sinus pain and sore throat (scratchy). Respiratory: Positive for cough ( dry), shortness of breath and wheezing. Gastrointestinal: Negative for diarrhea, nausea and vomiting. Skin: Positive for rash ( face, right side of nose). Neurological: Positive for headaches. Negative for dizziness. Physical Exam Constitutional: He appears well-developed and [...] distal pulses. No murmur heard. Pulmonary/Chest: Effort normal. No respiratory distress. He has wheezes ( mild, diffuse). He has demarcus. Lymphadenopathy: He has no cervical adenopathy. Skin: Skin is warm and dry. Rash (small area of raised erythema on face, right of nose. no wound/drainage/surrounding erythema/vesicles.) noted. Results for orders placed or performed in visit on 06/21/18 POCT RAPID STREP A Result Value Ref Range Strep A Ag None Detected None Detected Pos/Neg Lot Number [id number] Expiration Date 06/25/19 SeriAl # Control Line Yes YES/NO See time date stamps in the EMR [...] was provided either in writing and/or via ARI. A new medicine was prescribed during this [...] 10 days. Dispense: 30 Cap; Refill: 0 Mild intermittent asthma with acute exacerbation - predniSONE (DELTASONE) 10 mg Oral Tablet; Take 4 tabs once daily for 2 days, then 3 tabs daily x2days, then 2 tabs daily x2 days and then 1 tab daily x2 days. Dispense: 20 Tab; Refill: 0 Exposure to strep throat - POCT RAPID STREP A - STREP A DNA; Future Skin lesion of face Comments: could be cyst/acne vs start of shingles rash. no periorbital edema/erythema, pt encouraged to monitor for changes and call PRN. Need for shingles vaccine - varicella-zoster gE-AS01B, PF, (SHINGRIX, PF,) 50 mcg/0.5 mL IM Suspension for Reconstitution; Inject 0.5 mL into the muscle once for 1 dose. Inject 0.5ml intramuscularly and repeat with one dose 2to 6 months later Dispense: 1 Each; Refill: 1 Screening for colon cancer - AMB REFERRAL TO GASTROENTEROLOGY documented in this encounter Miscellaneous Notes * Patient Instructions - Michelle Garrido APRN - 06/21/2018 9:56 AM EST Images from the original note [...] viral respiratory infections may be treated with [id number] and prescription medicines, such as: ?? Expectorants. [...] Rest as much as possible. ?? Take [id number] and prescription medicines only as told by [...] 03/22/2006 Document Revised: 11/17/2016 Document Reviewed: 11/18/2015 [employer] Interactive Patient Education ?? 2018 [employer]. Patient Education Cough, Adult Coughing is a reflex that clears your throat and your airways. Coughing helps to heal and protect your lungs. It is normal to cough occasionally, but a cough that happens with other symptoms or lastsa long time may be a sign of a condition that needs treatment. A cough may last only 2-3 weeks (acute), or it may last longer than 8 weeks (chronic). What are the causes? Coughing is commonly caused by: ?? Breathing in substances that irritate your lungs. ?? A viral or bacterial respiratory infection. ?? Allergies. ?? Asthma. ?? Postnasal drip. ?? Smoking. ?? Acid backing up from the stomach into the esophagus (gastroesophageal reflux). ?? Certain medicines. ?? Chronic lung problems, including COPD (or rarely, lung cancer). ?? Other medical conditions such as heart failure. Follow these instructions at home: Pay attention to any changes in your symptoms. Take these actions to help with your discomfort: ?? Take medicines only as told by your health care provider. ?? If you were prescribed an antibiotic medicine, take it as told by your health care provider. Do not stop taking the antibiotic even if you start to feel better. ?? Talk with your health care provider before you take a cough suppressant medicine. ?? Drink enough fluid to keep your urine clear or pale yellow. ?? If the air is dry, use a cold steam vaporizer or humidifier in your bedroom or your home to helploosen secretions. ?? Avoid anything that causes you to cough at work or at home. ?? If your cough is worse at night, try sleeping in a semi-upright position. ?? Avoid cigarette smoke. If you smoke, quit smoking. If you need help quitting, ask your health care provider. ?? Avoid caffeine. ?? Avoid alcohol. ?? Rest as needed. Contact a health care provider if: ?? You have new symptoms. ?? You cough up pus. ?? Your cough does not get better after 2-3 weeks, or your cough gets worse. ?? You cannot control your cough with suppressant medicines and you are losing sleep. ?? You develop pain that is getting worse or pain that is not controlled with pain medicines. ?? You have a fever. ?? You have unexplained weight loss. ?? You have night sweats. Get help right away if: ?? You cough up blood. ?? You have difficulty breathing. ?? Your heartbeat is very fast. This information is not intended to replace advice given to you by your health care provider. Make sure you discuss any questions you have with your health care provider. Document Released: 12/09/2011 Document Revised: 11/17/2016 Document Reviewed: 08/19/2015 [employer] Interactive Patient Education ?? 2018 [employer] documented in this encounter Plan of Treatment Upcoming Encounters Date Type Department Care Team (Late st Contact Info) Description 06/28/2024 9:40 AM EST Clinical Support [place] [address] [place] [phone] [phone] 11/19/2024 1:40 PM EDT Office Visit [facility]OL[facility] Neurology [facility] [address] [place] [address] Lyndsay Brewer DO [address] [facility] [address] [place] [address] Scheduled Referrals Name Type Priority Associated Diagnoses Order Schedule AMB REFERRAL TO GASTROENTEROLOGY Outpatient Referral Routine Screening for colon cancer Ordered: 06/21/2018 documented as of this encounter Goals Goal [...] Procedure Name Priority Date/Time Associated Diagnosis Comments STREP A DNA Routine 06/21/2018 11:50 AM EST Exposure to strep throat POCT RAPID STREP A Routine 06/21/2018 10 :14 AM EST Exposure to strep throat documented in this encounter Results * STREP A DNA (06/21/2018 11:50 AM EST) Strep A DNA Not Detected Not Detected 8 4:52 PM EST PREFERRED [employer] Swab 06/21/2018 11:5 0 AM EST 06/21/2018 11:50 AM EST Narrative PREFERRED [employer] - 06/21/2018 4:52 PM EST Test methodology by loop-mediated isothermal DNA amplification (LAMP). The performance characteristics of this test were validated by [facility]. A negative result does not rule out the presence of Group A Streptococcus DNA in concentrations below the level of detection of the assay. Michelle Garrido APRN MICROBIOLOGY - GENERAL ORDER RAMESH Final Result PREFERRED [facility] [address] [facility] , [place] [address] * POCT RAPID STREP A (06/21/2018 10:14 AM EST) Strep A Ag None Detected None Detected Pos/Neg SEP OFFICE Lot Number [id number] SEP OFFICE Expiration Date 06/25/19 SEP OFFICE SeriAl # SEP OFFICE Control Line Yes YES/NO SEP OFFICE 06/21/2018 10:1 4 AM EST Michelle Garrido APRN POINT OF CARE TEST ORDERABLE S Final Result SEP OFFICE documented in this encounter Visit Diagnoses Diagnosis Viral URI with cough- Primary Acute upper respiratory infections of unspecified site Mild intermittent asthma with acute exacerbation Unspecified asthma, with exacerbation Exposure to strep throat Contact with or exposure to other communicable diseases Skin lesion of face Unspecified disorder of skin and subcutaneous tissue Need for shingles vaccine Need for prophylactic vaccination and inoculation against varicella Screening for colon cancer Special screening for malignant neoplasms, colon documented in this encounter Discontinued Medications Medication Sig Discontinue Reason Start Date End Da te predniSONE (DELTASONE) 10 mg Oral TabletIndications:Sciat ica of right side Take 4 tabs once daily for 2 days, then 3 tabs daily x2 days, then 2 tabs daily x2 days and then 1 tab daily x2 days. DELETE-Therapy completed 03/20/2018 06/21/2018 documented as of this encounter Care Teams Party Host/Hostess Relationship Specialty Start Date End Date Michelle Garrido, HAND CANDY MOLDER PCP - General Nurse Practitioner 01/09/17 01/14/21 documented as of this encounter
--- OUTSIDE RECORDS SUMMARY | 2024-05-29 15:50 | XMS_ITS | Encounter Summary ---
Author Organization [place] [address] Care Team Providers Care Mba Intern Name Role Phone Michelle Garrido APRN Primary Care Provider Unava ilable Reason for Visit * Reason Comments Fall Encounter Details Date Type Department Care Team (Late st Contact Info) Description 03/20/2018 8:45 AM EDT Office Visit [facility] [place] [address] [address] Michelle Garrido APRN Sciatica of right side (Primary Dx); Need for influenza vaccination; BPH without urinary obstruction Social History Tobacco [...] Sign Reading Time Taken Comments Blood Pressure 144/90 03/20/2018 8:52 AM EDT Pulse 88 03/20/2018 8:52 AM EDT Temperature 36.7 ??C (98 ??F) 03/20/2018 8:52 AM EDT Respiratory Rate - - Oxygen Saturation 96% 03/20/2018 8:52 AM EDT Inhaled Oxygen Concentration - - Weight 83.9 kg (185 lb) 03/20/2018 8:52 AM EDT Height 172.7 cm (5' 8 ) 03/20/2018 8:52 AM EDT Body Mass Index 28.13 03/20/2018 8:52 AM EDT documented in this encounter Functional [...] End Date predniSONE (DELTASONE) 10 mg Oral TabletIndications:S ciatica of right side Take 4 tabs once daily for 2 days, then 3 tabs daily x2 days, then 2 tabs daily x2 days and then 1 tab daily x2 days. 20 Tab 03/20/2018 06/21/2018 tiZANidine (ZANAFLEX) 4 mg Oral TabletIndications:S ciatica of right side Take 1 Tab by mouth 3 times daily. 90 Tab 2 03/20/2018 07/03/2019 documented in this encounter Progress Notes * Michelle Garrido, YOLI - 03/20/2018 8:45 AM EDT Vitals: 03/20/18 0852 BP: 144/90 Pulse: 88 Temp: 98 ??F (36.7 ??C) TempSrc: Oral SpO2: 96% Weight: 185 lb (83.9 kg) Height: 5' 8 (1.727 m) Chief Complaint Patient presents with ??? Fall HPI: The patient has a complaint of pain described below: ?? What where you doing when the pain started? Fell off a ladder ?? Pain location: back - right, lower ?? How long have you been having this pain? Monday, last week, 6 days ago. ?? Pain described as sharp, burning ?? Pain rated as moderate. ?? Does the pain radiate from it's source to anywhere else: No ?? Are you experiencing any associated Numbness, tingling, weakness: No. ?? Treatments prior to today's evaluation have included? Tylenol and Celebrex. ?? What makes your pain worse?: Just not going away ?? What makes your pain better?: nothing ?? The inciting event(s) leading to pain was not work related. Is this a new pain, recurrence of a previous similar pain, or exacerbation of a chronic pain or injury? New pain Pt reports he fell off of a ladder on Monday (6 days ago). Landed directly on right leg jamming his knee then fell over onto his right side on the curb of the sidewalk. Pain in right flank area isdescribed as stabbing. Pt has taken tylenol and Celebrex with minimal relief. Back Specific Questions: ?? Incontinence of urine or feces: No. ?? Prior history of back problems: recurrent self limited episodes of low back pain in the past. Pt reports new onset urinary hesitancy in the morning. No burning or hematuria. Has history of BPH. Review of Systems Genitourinary: Positive for difficulty urinating ( hesitancy) and frequency. Negative for dysuria, flank pain, hematuria and testicular pain. Musculoskeletal: Positive for back pain. Neurological: Negative for weakness and numbness. Physical Exam Constitutional: He is oriented to person, place, and time. He appears well- developed and well-nourished. Cardiovascular: Normal rate. Pulmonary/Chest: Effort normal. Musculoskeletal: Lumbar back: He exhibits normal range of motion, no tenderness, no bony tenderness, no pain and no spasm. (+) SI joint tenderness on left, straight leg raise (+) on left. Neurological: He is alert and oriented to person, place, and time. See time date stamps in the EMR for other pertient history components reviewed as part of today's encounter. [facility] Documentation [facility] Flowsheet was not completed/reviewed as part of today's visit. Educated patient regarding the diagnosis, medication/treatment, goals, self- management tools and instructions based on their care plan. They verbalized understanding of the education given on the After Visit Summary [AVS] for today's visit. A copy of the AVS was provided either in writing and/or via [employer]. A new medicine was prescribed during this [...] Diagnoses and all orders for this visit: Sciatica of right side - tiZANidine (ZANAFLEX) 4 mg Oral Tablet; Take 1 Tab by mouth 3 times daily. Dispense: 90 Tab; Refill: 2 - predniSONE (DELTASONE) 10 mg Oral Tablet; Take 4 tabs once daily for 2 days, then 3 tabs daily x2days, then 2 tabs daily x2 days and then 1 tab daily x2 days. Dispense: 20 Tab; Refill: 0 documented in this encounter Miscellaneous Notes * Patient Instructions - Michelle Garrido APRN - 03/20/2018 9:11 AM EDT Images from the original note were not included. Patient Education Sciatica Sciatica is pain, numbness, weakness, or tingling along your sciatic nerve. The sciatic nerve starts in the lower back and goes down the back of each leg. Sciatica happens when this nerve is pinched or has pressure put on it. Sciatica usually goes away on its own or with treatment. Sometimes, sciatica may keep coming back (recur). Follow these instructions at home: Medicines ?? Take [id number] and prescription medicines only as told by your doctor. ?? Do not drive or use heavy machinery while taking prescription pain medicine. Managing pain ?? If directed, put ice on the affected area. ?? Put ice in a plastic bag. ?? Place a towel between your skin and the bag. ?? Leave the ice on for 20 minutes, 2-3 times a day. ?? After icing, apply heat to the affected area before you exercise or as often as told by your doctor. Use the heat source that your doctor tells you to use, such as a moist heat pack or a heating pad. ?? Place a towel between your skin and the heat source. ?? Leave the heat on for 20-30 minutes. ?? Remove the heat if your skin turns bright red. This is especially important if you are unable tofeel pain, heat, or cold. You may have a greater risk of getting burned. Activity ?? Return to your normal activities as told by your doctor. Ask your doctor what activities are safe for you. ?? Avoid activities that make your sciatica worse. ?? Take short rests during the day. Rest in a lying or standing position. This is usually better than sitting to rest. ?? When you rest for a long time, do some physical activity or stretching between periods of rest. ?? Avoid sitting for a long time without moving. Get up and move around at least one time each hour. ?? Exercise and stretch regularly, as told by your doctor. ?? Do not lift anything that is heavier than 10 lb (4.5 kg) while you have symptoms of sciatica. ?? Avoid lifting heavy things even when you do not have symptoms. ?? Avoid lifting heavy things over and over. ?? When you lift objects, always lift in a way that is safe for your body. To do this, you should: ?? Bend your knees. ?? Keep the object close to your body. ?? Avoid twisting. General instructions ?? Use good posture. ?? Avoid leaning forward when you are sitting. ?? Avoid hunching over when you are standing. ?? Stay at a healthy weight. ?? Wear comfortable shoes that support your feet. Avoid wearing high heels. ?? Avoid sleeping on a mattress that is too soft or too hard. You might have less pain if you sleepon a mattress that is firm enough to support your back. ?? Keep all follow-up visits as told by your doctor. This is important. Contact a doctor if: ?? You have pain that: ?? Wakes you up when you are sleeping. ?? Gets worse when you lie down. ?? Is worse than the pain you have had in the past. ?? Lasts longer than 4 weeks. ?? You lose weight for without trying. Get help right away if: ?? You cannot control when you pee (urinate) or poop (have a bowel movement). ?? You have weakness in any of these areas and it gets worse. ?? Lower back. ?? Lower belly (pelvis). ?? Butt (buttocks). ?? Legs. ?? You have redness or swelling of your back. ?? You have a burning feeling when you pee. This information is not intended to replace advice given to you by your health care provider. Make sure you discuss any questions you have with your health care provider. Document Released: 03/21/2009 Document Revised: 11/17/2016 Document Reviewed: 02/19/2016 [employer] Interactive Patient Education ?? 2018 [employer]. Patient Education Sciatica Rehab Ask your health care provider which exercises are safe for you. Do exercises exactly as told by your health care provider and adjust them as directed. It is normal to feel mild stretching, pulling, tightness, or discomfort as you do these exercises, but you should stop right away if you feel suddenpain or your pain gets worse.??Do not begin these exercises until told by your health care provider. Stretching and range of motion exercises These exercises warm up your muscles and joints and improve the movement and flexibility of your hips and your back. These exercises also help to relieve pain, numbness, and tingling. Exercise A: Sciatic nerve glide 1. Sit in a chair with your head facing down toward your chest. Place your hands behind your back. Let your shoulders slump forward. 2. Slowly straighten one of your knees while you tilt your head back as if you are looking toward the ceiling. Only straighten your leg as far as you can without making your symptoms worse. 3. Hold for seconds. 4. Slowly return to the starting position. 5. Repeat with your other leg. Repeat times. Complete this exercise times a day. Exercise B: Knee to chest with hip adduction and internal rotation 1. Lie on your back on a firm surface with both legs straight. 2. Bend one of your knees and move it up toward your chest until you feel a gentle stretch in your lower back and buttock. Then, move your knee toward the shoulder that is on the opposite side from your leg. ?? Hold your leg in this position by holding onto the front of your knee. 3. Hold for seconds. 4. Slowly return to the starting position. 5. Repeat with your other leg. Repeat times. Complete this exercise times a day. Exercise C: Prone extension on elbows 1. Lie on your abdomen on a firm surface. A bed may be too soft for this exercise. 2. Prop yourself up on your elbows. 3. Use your arms to help lift your chest up until you feel a gentle stretch in your abdomen and your lower back. ?? This will place some of your body weight on your elbows. If this is uncomfortable, try stacking pillows under your chest. ?? Your hips should stay down, against the surface that you are lying on. Keep your hip and back muscles relaxed. 4. Hold for seconds. 5. Slowly relax your upper body and return to the starting position. Repeat times. Complete this exercise times a day. Strengthening exercises These exercises build strength and endurance in your back. Endurance is the ability to use your muscles for a long time, even after they get tired. Exercise D: Pelvic tilt 1. Lie on your back on a firm surface. Bend your knees and keep your feet flat. 2. Tense your abdominal muscles. Tip your pelvis up toward the ceiling and flatten your lower back into the floor. ?? To help with this exercise, you may place a small towel under your lower back and try to push your back into the towel. 3. Hold for seconds. 4. Let your muscles relax completely before you repeat this exercise. Repeat times. Complete this exercise times a day. Exercise E: Alternating arm and leg raises 1. Get on your hands and knees on a firm surface. If you are on a hard floor, you may want to use padding to cushion your knees, such as an exercise mat. 2. Line up your arms and legs. Your hands should be below your shoulders, and your knees should be below your hips. 3. Lift your left leg behind you. At the same time, raise your right arm and straighten it in frontof you. ?? Do not lift your leg higher than your hip. ?? Do not lift your arm higher than your shoulder. ?? Keep your abdominal and back muscles tight. ?? Keep your hips facing the ground. ?? Do not arch your back. ?? Keep your balance carefully, and do not hold your breath. 4. Hold for seconds. 5. Slowly return to the starting position and repeat with your right leg and your left arm. Repeat times. Complete this exercise times a day. Posture and body mechanics Body mechanics refers to the movements and positions of your body while you do your daily activities. Posture is part of body mechanics. Good posture and healthy body mechanics can help to relieve stress in your body's tissues and joints. Good posture means that your spine is in its natural S-curveposition (your spine is neutral), your shoulders are pulled back slightly, and your head is not tipped forward. The following are general guidelines for applying improved posture and body mechanics to your everyday activities. Standing ?? When standing, keep your spine neutral and your feet about hip-width apart. Keep a slight bend in your knees. Your ears, shoulders, and hips should line up. ?? When you do a task in which you tester rocket engine one place for a long time, place one foot up on a stable object that is 2-4 inches (5-10 cm) high, such as a footstool. This helps keep your spine neutral. Sitting ?? When sitting, keep your spine neutral and keep your feet flat on the floor. Use a footrest, if necessary, and keep your thighs parallel to the floor. Avoid rounding your shoulders, and avoid tilting your head forward. ?? When working at a desk or a computer, keep your desk at a height where your hands are slightly lower than your elbows. Slide your chair under your desk so you are close enough to maintain good posture. ?? When working at a computer, place your monitor at a height where you are looking straight ahead and you do not have to tilt your head forward or downward to look at the screen. Resting ?? When lying down and resting, avoid positions that are most painful for you. ?? If you have pain with activities such as sitting, bending, stooping, or squatting (flexion-basedactivities), lie in a position in which your body does not bend very much. For example, avoid curling up on your side with your arms and knees near your chest ( position). ?? If you have pain with activities such as standing for a long time or reaching with your arms (extension-based activities), lie with your spine in a neutral position and bend your knees slightly. Try the following positions: ?? Lying on your side with a pillow between your knees. ?? Lying on your back with a pillow under your knees. Lifting ?? When lifting objects, keep your feet at least shoulder-width apart and tighten your abdominal muscles. ?? Bend your knees and hips and keep your spine neutral. It is important to lift using the strengthof your legs, not your back. Do not lock your knees straight out. ?? Always ask for help to lift heavy or awkward objects. This information is not intended to replace advice given to you by your health care provider. Make sure you discuss any questions you have with your health care provider. Document Released: 06/12/2006 Document Revised: 02/16/2017 Document Reviewed: 02/26/2016 [employer] Interactive Patient Education ?? 2018 [employer] documented in this encounter Plan of Treatment Upcoming Encounters Date Type Department Care Team (Late st Contact Info) Description 06/28/2024 9:40 AM EST Clinical Support [facility] [place] [address] [place] [address] 11/19/2024 1:40 PM EDT Office Visit [facility] [address] [place] [phone] Lyndsay Brewer, [address] [place] [address] documented as of this encounter Goals Goal Patient Goal Type Associated Problems Recent Progress Patient-Stated? Author Blood Pressure < 140/90 Blood Pressure 134/84(2023 1:16 PM EST) No Yana Choi RMA Eat better, exercise, reach an ideal body weight General No Yana Choi RMA Stay Tobacco Free Lifestyle No Yana Choi RMA documented as of this encounter Visit Diagnoses Diagnosis Sciatica of right side- Primary Sciatica Need for influenza vaccination Need for prophylactic vaccination and inoculation against influenza BPH without urinary obstruction Hypertrophy of prostate without urinary obstruction and other lower urinary tract symptoms (LUTS) documented in this encounter Orders Immunization/Injection Count Last Ordered Date First Ordered Date FLU VACCINE QUADRIVALENT (3YR+) 1 8 documented in this encounter Care Teams Mba Intern Relationship Specialty Start Date End Date Michelle Garrido APRN PCP - General Nurse Practitioner 01/09/17 01/14/21 documented as of this encounter
--- OUTSIDE RECORDS SUMMARY | 2024-05-29 15:50 | XMS_ITS | Encounter Summary ---
Author Organization [place] [address] Care Team Providers Care Venereal Disease Control Head Name Role Phone Michelle Garrido APRN Primary Care Provider Unava ilable Reason for Visit * Reason Comments Medication Refill Encounter Details Date Type Department Care Team (Late st Contact Info) Description 01/15/2018 Refill [facility] [address] [place] [address] Michelle Garrido APRN Medication Refill [...] BY MOUTH TWICE A DAY 60 Tab 01/16/2018 02/21/2018 documented in this encounter Miscellaneous Notes * Telephone Encounter - Michelle Phillips MA - 01/15/2018 2:54 PM EDT DENZEL: as expected 12/22/17 GUS 10/27/17 documented in this encounter Plan of Treatment Upcoming Encounters Date Type Department Care Team (Late st Contact Info) Description 06/28/2024 9:40 AM EST Clinical Support [facility] [place] [address] [place] [address] 11/19/2024 1:40 PM EDT Office Visit [facility] Neurology [facility] [address] [place] [phone] Lyndsay Brewer DO [address] [place] [address] documented as of this encounter Goals Goal Patient Goal Type Associated Problems Recent Progress Patient-Stated? Author Blood Pressure < 140/90 Blood Pressure 134/84(2023 1:16 PM EST) Yana Pina RMA Eat better, exercise, reach an ideal body weight General No Yana Choi RMA Stay Tobacco Free Lifestyle Yaan Pina RMA documented as of this encounter Visit Diagnoses Diagnosis Irritable bowel syndrome with diarrhea Irritable bowel syndrome documented in this encounter Discontinued Medications Medication Sig Discontinue Reason Start Date End Da te VIBERZI 100 mg Oral TabletIndications:Irrita ble bowel syndrome with diarrhea TAKE 1 TABLET BY MOUTH TWICE A DAY Reorder 12/22/2017 01/15/2018 documented as of this encounter Care Teams Venereal Disease Control Head Relationship Specialty Start Date End Date Michelle Garrido APRN PCP - General Nurse Practitioner 01/09/17 01/14/21 documented as of this encounter
--- OUTSIDE RECORDS SUMMARY | 2024-05-29 15:50 | XMS_ITS | Encounter Summary ---
Author Organization [place] [address] Care Team Providers Care Dedicated Owner Operator Name Role Phone Michelle Garrido APRN Primary Care Provider Unava ilable Reason for Visit * Reason Comments Medication Refill Encounter Details Date Type Department Care Team (Late st Contact Info) Description 02/21/2018 Refill [facility] [place] [address] [place] [address] Michelle Garrido APRN Medication Refill [...] BY MOUTH TWICE A DAY 60 Tab 02/22/2018 03/29/2018 documented in this encounter Miscellaneous Notes * Telephone Encounter - Michelle Phillips MA - 02/22/2018 8:46 AM EDT DENZEL: as expected 12/22/17 GUS 02/13/18 documented in this encounter Plan of Treatment Upcoming Encounters Date Type Department Care Team (Late st Contact Info) Description 06/28/2024 9:40 AM EST Clinical Support [facility] [place] [address] [facility] [place] [address] 11/19/2024 1:40 PM EDT Office Visit [facility] Neurology [facility] [address] [place] [phone] Lyndsay Brewer DO [address] [place] [address] documented as of this encounter Goals Goal [...] TABLET BY MOUTH TWICE A DAY Reorder 01/16/2018 02/21/2018 documented as of this encounter Care Teams Dedicated Owner Operator Relationship Specialty Start Date End Date Michelle Garrido APRN PCP - General Nurse Practitioner 01/09/17 01/14/21 documented as of this encounter
--- OUTSIDE RECORDS SUMMARY | 2024-05-29 15:50 | XMS_ITS | Encounter Summary ---
Author Organization [place] [address] Care Team Providers Care Channeling Machine Runner Name Role Phone Michelle Garrido APRN Primary Care Provider Unava ilable Reason for Visit * Reason Onset Date Comments Immunizations 06/21/2018 Shingles Vaccine Encounter Details Date Type Department Care Team (Late st Contact Info) Description 06/21/2018 Telephone [facility] [place] [address] [place] [address] Michelle Garrido APRN Immunizations (Shingles Vaccine) Social History Tobacco Use Types Packs/Day Years [...] 07/11/2017 9:14 AM AIMEE Choi Riya sosa ESTEFANY Garcia documented in this encounter Miscellaneous Notes * Telephone Encounter - Farzana Garrido MA - 06/21/2018 2:44 PM EST spoke to pharmacy and verified that pt received 2 shingrix 6 month apart, she is faxing over copy. Pt informed * Telephone Encounter - Radha Evans - 06/21/2018 11:36 AM EST Pt went to the [facility] in [place] to get his shingles vaccine after being told by Michelle to go there and have them give him the newer shot. He asked that they fax the information over to us but they advised they wouldn 't be able to since they had already given it to him. He [facility] because he isn't sure he received the correct vacc ine. He stated that the person giving it to him seemed a little confused. Please call pt to advise. [id number] [place] [address] [address] [facility] [phone] documented in this encounter Plan of Treatment Upcoming Encounters Date Type Department Care Team (Late st Contact Info) Description 06/28/2024 9:40 AM EST Clinical Support [facility] [place] [address] [place], [place] [address] 11/19/2024 1:40 PM EDT Office Visit [facility] Neu[facility] [address] [place] [address] Lyndsay Brewer, DO [address] [place] [address] documented as of this [...] on filedocumented in this encounter Care Teams Channeling Machine Runner Relationship Specialty Start Date End Date Michelle Garrido APRN PCP - General Nurse Practitioner 01/09/17 01/14/21 documented as of this encounter
--- OUTSIDE RECORDS SUMMARY | 2024-05-29 15:50 | XMS_ITS | Encounter Summary ---
Author Organization [place] [address] Care Team Providers Care Digital Content Manager Name Role Phone Michelle Garrido APRN Primary Care Provider Unava ilable Reason for Visit * Reason Comments Cough Encounter Details Date Type Department Care Team (Latest Contact Info) Description 02/27/2018 3:15 PM EDT Office Visit [facility] [place] [address] [place] [address] Michelle Garrido APRN Primary osteoarthritis of both knees (Primary Dx); Seasonal allergic rhinitis due to other allergic trigger; Acute viral sinusitis Social History Tobacco Use Types Packs/Day Years [...] Sign Reading Time Taken Comments Blood Pressure 130/84 02/27/2018 3:07 PM EDT Pulse 76 02/27/2018 3:07 PM EDT Temperature 36.5 ??C (97.7 ??F) 02/27/2018 3:07 PM ED T Respiratory Rate - - Oxygen Saturation 98% 02/27/2018 3:07 PM EDT Inhaled Oxygen Concentration - - Weight 86.6 kg (191 lb) 02/27/2018 3:07 PM EDT Height 170.2 cm (5' 7 ) 02/27/2018 3:07 PM EDT Body Mass Index 29.91 02/27/2018 3:07 PM EDT documented in this encounter Functional [...] End Date loratadine (CLARITIN) 10 mg Oral TabletIndications:S easonal allergic rhinitis due to other allergic trigger Take 1 Tab by mouth daily. 30 Tab 2 02/27/2018 03/22/2018 fluticasone (FLONASE) 50 mcg/actuation Nasl [place], SuspensionIndicatio ns:Seasonal allergic rhinitis due to other allergic trigger 1 [place] by Nasal route daily. 1 Bottle 2 02/27/2018 07/11/2018 documented in this encounter Progress Notes * Michelle Garrido APRN - 02/27/2018 3:15 PM EDT Vitals: 02/27/18 1507 BP: 130/84 Pulse: 76 Temp: 97.7 ??F (36.5 ??C) TempSrc: Oral SpO2: 98% Weight: 191 lb (86.6 kg) Height: 5' 7 (1.702 m) Chief Complaint Patient presents with ??? Cough HPI: URI/Sinus symptoms: ?? complains of congestion, scratchy throat and dry cough for 2 days. ?? Symptom severity is described as Mild and show no change. ?? What treatments have you tried at home? nothing ?? Are home treatments impacting your symptoms at all? no ?? Do you get recurrent or seasonal symptoms multiple times per year? yes ?? Do you have any history of lung disease, asthma, or recurrent allergies? yes asthma ?? The Patient does not smoke cigarettes. Pt reports slight increase in need for albuterol inhaler since symptom onset. Everyone in the housewith similar symptoms. No fevers at home. Cough is non-productive. Pt has a cold sore on lip that he has been putting chap stick on, he states that it is not getting any worse but it is not going away. He would like a steroid shot in both knees. He states that they have been bothering him more frequently but hasn't had a steroid injection since August. Review of Systems Constitutional: Negative for chills, diaphoresis and fever. HENT: Positive for postnasal drip, rhinorrhea, sneezing and sore throat. Negative for congestion, ear pain, sinus pain and sinus pressure. Respiratory: Positive for cough ( non-productive) and shortness of breath ( minimal). Negative for wheezing. Physical Exam Constitutional: He appears well-developed and [...] oropharyngeal edema or posterior oropharyngeal erythema. Eyes: Conjunctivae are normal. Pupils are equal, round, and reactive to light. Neck: Neck supple. Cardiovascular: Normal rate, regular rhythm, normal heart sounds and intact distal pulses. No murmur heard. Pulmonary/Chest: Effort normal and breath sounds normal. No respiratory distress. He has no wheezes. He has no rales. Musculoskeletal: Right knee: He exhibits normal range of motion, no swelling, no effusion and no erythema. Left knee: He exhibits normal range of motion, no swelling, no effusion and no erythema. Lymphadenopathy: He has no cervical adenopathy. Skin: Skin is warm and dry. See time date stamps in the EMR for other pertient history components reviewed as part of today's encounter. [facility] Documentation [facility] Flow[facility] was not completed/reviewed as part of today's visit. Educated patient regarding the diagnosis, medication/treatment, goals, self- management tools and instructions based on their care plan. They verbalized understanding of the education given on the After Visit Summary [AVS] for today's visit. A copy of the AVS was provided either in writing and/or via [employer]. A new medicine was not prescribed on this visit. Assessment Diagnoses and all orders for this visit: Primary osteoarthritis of both knees - OK ARTHROCENTESIS ASPIR&/INJ MAJOR JT/BURSA W/O US - OK ARTHROCENTESIS ASPIR&/INJ MAJOR JT/BURSA W/O US - methylPREDNISolone acetate (DEPO-Medrol) injection 40 mg; Inject 1 mL into the articular space once. - methylPREDNISolone acetate (DEPO-Medrol) injection 40 mg; Inject 1 mL into the articular space once. A steroid injection was performed at bilateral knees using lateral approach with 1% plain Lidocaineand 40 mg of depo-medrol. This was well tolerated. Seasonal allergic rhinitis due to other allergic trigger - fluticasone (FLONASE) 50 mcg/actuation Nasl [place], Suspension; 1 [place] by Nasal route daily. Dispense: 1 Bottle; Refill: 2 - loratadine (CLARITIN) 10 mg Oral Tablet; Take 1 Tab by mouth daily. Dispense: 30 Tab; Refill: 2 Acute viral sinusitis Comments: self-limiting, should resolve 7-10 days from onset. documented in this encounter Plan of Treatment Upcoming Encounters Date Type Department Care Team (Late st Contact Info) Description 06/28/2024 9:40 AM EST Clinical Support [facility] [place] [address] [place], [place] [phone] 11/19/2024 1:40 PM EDT Office Visit [facility] [address] [place] [phone] Lyndsay Brewern, [address] [place] [address] Scheduled Orders Name Type Priority Associated Diagnoses Orde r Schedule OK ARTHROCENTESIS ASPIR&/INJ MAJOR JT/BURSA W/O US OK Charge Routine Primary osteoarthritis of both knees Ordered: 02/27/2018 OK ARTHROCENTESIS ASPIR&/INJ MAJOR JT/BURSA W/O US OK Charge Routine Primary osteoarthritis of both knees Ordered: 02/27/2018 documented as of this encounter Goals Goal [...] knees- Primary Primary localized osteoarthrosis, lower leg Seasonal allergic rhinitis due to other allergic trigger Acute viral sinusitis documented in this encounter Orders Medications Ordered That Tone ht Not Have Been Administered Count Last Ordered Date First Ordered Date methylPREDNISolone acetate ( DEPO-Medrol) injection 40 mg 2 02/27/2018 documented in this encounter Care Teams Digital Content Manager Relationship Specialty Start Date End Date Michelle Garrido APRN PCP - General Nurse Practitioner 01/09/17 01/14/21 documented as of this encounter
--- OUTSIDE RECORDS SUMMARY | 2024-05-29 15:50 | XMS_ITS | Encounter Summary ---
Author Organization [place] [address] Care Team Providers Care Auto Damage Insurance Appraiser Name Role Phone Michelle Garrido APRN Primary Care Provider Unava ilable Reason for Visit * Reason Comments Medication Refill Encounter Details Date Type Department Care Team (Late st Contact Info) Description 04/16/2018 Refill [facility] [place] [address] [place] [address] Michelle Garrido APRN Medication Refill [...] BY MOUTH TWICE A DAY 60 Tab 04/16/2018 05/28/2018 documented in this encounter Miscellaneous Notes * Telephone Encounter - Rocio Brewster CMA - 04/16/2018 9:57 AM EDT DENZEL: as expected 03/29/18 Last filled 03/30 Last seen 03/20 documented in this encounter Plan of Treatment Upcoming Encounters Date Type Department Care Team (Late st Contact Info) Description 06/28/2024 9:40 AM EST Clinical Support [facility] [place] [address] [place] [address] 11/19/2024 1:40 PM EDT Office Visit [facility] Neurology [facility] [address] [place] [phone] Lyndsay Brewer DO [address] [place] [address] documented as of this encounter Goals Goal [...] TABLET BY MOUTH TWICE A DAY Reorder 03/30/2018 04/16/2018 documented as of this encounter Care Teams Auto Damage Insurance Appraiser Relationship Specialty Start Date End Date Michelle Garrido APRN PCP - General Nurse Practitioner 01/09/17 01/14/21 documented as of this encounter
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
--- OUTSIDE RECORDS SUMMARY | 2024-05-29 15:50 | XMS_ITS | Encounter Summary ---
Author Organization [place] [address] Care Team Providers Care Safety Tech Name Role Phone Michelle Garrido APRN Primary Care Provider Unava ilable Reason for Visit * Reason Comments Medication Refill Encounter Details Date Type Department Care Team (Late st Contact Info) Description 05/28/2018 Refill [facility] [place] [address] [place] [address] Michelle Garrido APRN Medication Refill [...] BY MOUTH TWICE A DAY 60 Tab 05/28/2018 06/27/2018 documented in this encounter Miscellaneous Notes * Telephone Encounter - Michelle Phillips MA - 05/28/2018 9:57 AM EST ?? DENZEL: as expected 03/29/18 GUS 03/20/18 documented in this encounter Plan of Treatment Upcoming Encounters Date Type Department Care Team (Late st Contact Info) Description 06/28/2024 9:40 AM EST Clinical Support [facility] [place] [address] [place] [phone] 11/19/2024 1:40 PM EDT Office Visit [facility] Neurology [facility] [address] [place] [address] Lyndsay Brewer DO [address] [place] [address] documented as of this encounter Goals Goal [...] TABLET BY MOUTH TWICE A DAY Reorder 04/16/2018 05/28/2018 documented as of this encounter Care Teams Safety Tech Relationship Specialty Start Date End Date Michelle Garrido APRN PCP - General Nurse Practitioner 01/09/17 01/14/21 documented as of this encounter
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
--- OUTSIDE RECORDS SUMMARY | 2024-05-29 15:50 | XMS_ITS | Encounter Summary ---
Author Organization [place] [address] Care Team Providers Care Power Line Installer Name Role Phone Michelle Garrido APRN Primary Care Provider Unava ilable Reason for Visit * Reason Comments Hip Pain c/o left hip pain, p ossible dislocation. stated repaired by Dr. Tariq back in Jun. hx of opiate addiction in recovery 6 yrs he does not want any opiates for pain Encounter Details Date Type Department Care Team (Late st Contact Info) Description 03/13/2018 10:55 AM EDT - 03/13/2018 2:44 PM EDT Emergency [facility] [place] [address] Janes Pelaez MD [address] [place] [phone] Closed posterior dislocation of left hip, initial encounter ([facility]) (Primary Dx) Discharge Disposition: Home or Self [...] Sign Reading Time Taken Comments Blood Pressure 133/73 03/13/2018 2:33 PM EDT Pulse 80 03/13/2018 2:33 PM EDT Temperature 36.7 ??C (98.1 ??F) 03/13/2018 10:55 AM E DT Respiratory Rate 16 03/13/2018 2:33 PM EDT Oxygen Saturation 98% 03/13/2018 2:33 PM EDT Inhaled Oxygen Concentration - - Weight 84.4 kg (186 lb) 03/13/2018 10:55 AM EDT Height 172.7 cm (5' 8 ) 03/13/2018 10:55 AM EDT Body Mass Index 28.28 03/13/2018 10:55 AM EDT documented in this encounter Functional [...] Riya Pérez, RMA documented in this encounter Discharge Instructions * Discharge Instructions* Janes Pelaez MD - 03/13/2018 1:32 PM EDT Return for leg weakness or numbness, recurrent dislocation of the left hip, or other concerns. Avoid significant rotation or flexion or extension of the left hip as discussed. Follow-up with your orthopedic doctor later this week for reevaluation. documented in this encounter Medications at Time of Discharge Nebulizer Accessories (ALL FLOW 4000 KIT) [facility] [place] [facility] equivalent 1 Each 0 06/27/2012 documented as of this encounter Discharge Disposition Disposition Code Departure Means Destination Home or Self Detention documented in this encounter Progress Notes * Nereida Stein RN - 03/13/2018 2:07 PM EDT 03/13/18 1406 Final Note Actual Discharge Plan per AVS, referred to see orthopedics documented in this encounter ED Notes * Tamika Angulo RN - 03/13/2018 10:55 AM EDT Bed: 45 Expected date: Expected time: Means of arrival: Comments: * Janes Pelaez MD - 03/13/2018 10:53 AM EDT CHIEF COMPLAINT Chief Complaint Patient presents with ??? Hip Pain c/o left hip pain, possible dislocation. stated repaired by Dr. Tariq back in Jun. hx of opiate addiction in recovery 6 yrs he does not want any opiates for pain HPI Zuhair Whitlock is a 52 y.o. male.Patient presents to the Hospital complaining of left hip painand concerned about dislocation. In June of this year he had a very revision of left hip arthroplasty performed by Dr. Ramires of [facility]. 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 He felt his left hip pop out. No prior history of hip dislocation in the past. Patient has a history of narcotic abuse and has been sober for approximately 5 or 6 years. He is declining any narcotic pain medicine and is requesting IV Tylenol at this point in time. He states his left foot feels a little weird . However he denies any actual numbness or weakness of the left foot and lower leg area. He has not had any solid food oralintake since around 8 PM last night. He has had just a few sips of clear liquids over the past 4 hours. REVIEW OF SYSTEMS No chest pain, dyspnea, abdominal pain, vomiting, back pain and no other extremity or joint pain. See HPI for further details. Remainder of Review of systems is otherwise negative. PAST MEDICAL HISTORY Past Medical History: Diagnosis Date ??? Arthritis ??? Asthma 06/02/2010 ??? Bipolar affective (HCC) ??? Blood transfusion ??? EPHRAIM (generalized anxiety disorder) ??? Heart attack (HCC) ??? Heroin abuse Quit August ??? Hypertension ??? IBS (irritable bowel syndrome) ??? Opiate dependence (HCC) Remission x 5 years ??? Pneumonia ??? Pneumothorax FAMILY HISTORY Family History Problem Relation Age of Onset ??? Diabetes Mother ??? Heart Disease Mother ??? High Blood Pressure Mother ??? High Cholesterol Mother ??? Cancer Father 40 stomach SOCIAL HISTORY Social History Social History ??? Marital status: Spouse name: N/A ??? Number of children: N/A ??? Years of education: N/A Social History Main Topics ??? Smoking status: Never Smoker ??? Smokeless tobacco: Current User Types: Snuff ??? Alcohol use No ??? 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 Sexual activity: Not Asked Other Topics Concern ??? None Social History Narrative ??? None SURGICAL HISTORY Past Surgical History: Procedure Laterality Date ??? ELBOW SURGERY ??? EYE SURGERY ??? FRACTURE SURGERY left leg, after accident ??? HERNIA REPAIR ??? HIP ARTHROPLASTY Left 07/26/2017 LEFT TOTAL HIP ARTHROPLASTY- REVISION-ANTERIOR ; Surgeon: Augie Ramires MD; Location: [facility] OR; Service: Orthopedics ??? JOINT REPLACEMENT left hip ??? KNEE SURGERY both ??? TOTAL HIP ARTHROPLASTY Left 2009 CURRENT MEDICATIONS No current facility-administered medications on file prior to encounter. Current Outpatient Prescriptions on File Prior to Encounter Medication Sig Dispense Refill ??? acetaminophen (TYLENOL) 500 mg Oral Tablet Take 500 mg by mouth every 4 hours as needed for Pain. ??? ADVAIR DISKUS 500-50 mcg/dose Inhl Disk with Device INHALE 1 PUFF BY MOUTH 2 TIMES A DAY 120 Each 2 ??? albuterol (PROVENTIL) 5 mg/mL Inhl Solution for Nebulization Take 5 mg/hr by nebulization continuous. 40 mL 2 ??? celecoxib (CELEBREX) 200 mg Oral Capsule TAKE 1 CAPSULE BY MOUTH TWICE A DAY NEEDED 60 Cap 2 ??? loratadine (CLARITIN) 10 mg Oral Tablet Take 1 Tab by mouth daily. 30 Tab 2 ??? losartan-hydrochlorothiazide (HYZAAR) 50-12.5 mg Oral Tablet TAKE 1 TAB BY MOUTH DAILY. 90 Tab 2 ??? multivitamin Oral Capsule Take 1 Cap by mouth daily. ??? tadalafil (CIALIS) 5 mg Oral Tablet Take 1 Tab by mouth as needed. for erectile dysfunction 90 Tab 0 ??? VENTOLIN HFA 90 mcg/actuation Inhl HFA Aerosol Inhaler USE 1 OR 2 PUFFS EVERY 4 HOURS NEEDEDFOR WHEEZING. 54 Inhaler 2 ??? VIBERZI 100 mg Oral Tablet TAKE 1 TABLET BY MOUTH TWICE A DAY 60 Tab 0 ??? fluticasone (FLONASE) 50 mcg/actuation Nasl Bryant, Suspension 1 Bryant by Nasal route daily. (Patient not taking: Reported on 03/07/2018) 1 Bottle 2 ??? metroNIDAZOLE (METROGEL) 0.75 % Top Gel Apply topically 2 times daily. (Patient not taking: Reported on 03/07/2018) 70 g 0 ??? Nebulizer Accessories (ALL FLOW 4000 KIT) Misc Formulary equivalent (Patient not taking: Reported on 03/07/2018) 1 Each 0 ??? Nebulizers (SANG BABY NEBULIZER) Misc Formulary equivalent (Patient not taking: Reported on 03/07/2018) 1 Each 0 ALLERGIES Allergies Allergen Reactions ??? Abilify [Aripiprazole] Other (See Comments) convulsions ??? Unable To Assess Patient does not take any narcotic medications PHYSICAL EXAM VITAL SIGNS: ED Triage Vitals [03/13/18 1055] Temp 98.1 ??F (36.7 ??C) Pulse 80 Resp 20 BP 147/82 SpO2 98 % Height 5' 8 (1.727 m) Weight 186 lb (84.4 kg) Constitutional:Patient is awake and alert. HENT: Atraumatic. Oropharynx is clear and widely patent. Malampati 2. Eyes: Conjunctiva normal. Neck: ROM normal, supple. Cardiovascular: Normal heart rate, Normal rhythm, Normal S1, Normal S2, No murmurs, No rubs, No gallops. 3+ left dorsalis pedis and posterior tibialis pulse Thorax & Lungs: Respiratory effort normal. Lungs are clear and equal bilaterally. Abdomen: Nondistended. /Anorectal: Musculoskeletal: Left hip is held in flexion and slightly internally rotated. Range of motion is not assessed. No concerning tenderness over the lateral aspect of the left hip. Other extremities unremarkable. Other joints of the left lower extremity unremarkable. Skin: Warm and dry. Neurologic: Alert , Nonfocal. Psychiatric: Affect normal. LABS/RADIOLOGY Results for orders placed or performed during the hospital encounter of 03/13/18 XR HIP LEFT AP LATERAL W AP PELVIS Narrative XR HIP LEFT AP LATERAL W AP PELVIS, 03/13/2018 11:24 AM CLINICAL HISTORY: -HIP PAIN COMPARISON: 08/24/2017. PROCEDURE COMMENTS: AP view of the pelvis with AP and frog-leg views of the hip. FINDINGS: The femoral component of the patient's total hip prosthesis on the left is dislocated posteriorly. No fracture is identified. Mild degenerative changes are noted, right hip. Impression Posterior dislocation of femoral component of left hip prosthesis. XR CHEST PA OR AP Narrative CR, CHEST PA OR AP, 03/13/2018 11:24 AM CLINICAL HISTORY: -HIP PAIN COMPARISON: None. PROCEDURE COMMENTS: Frontal chest x-ray, PA or AP technique. FINDINGS: No acute failure, pneumonia, or effusion. No pneumothorax. Impression No acute cardiopulmonary process. Left hip post reduction film on my interpretation confirms reduction. No evidence of any fracture. EKG PROCEDURES Conscious Sedation Procedure Note Indication: hip dislocation Consent: I have discussed with the patient and/or the patient small business sales representative the indication, alternatives, and the possible risks and/or complications of the planned procedure and the anesthesia methods. The patient and/or patient small business sales representative appear to understand and agree to proceed. Timeout performed per policy and procedure. Physician Involvement: The attending physician was present and supervising this procedure. Pre-Sedation Documentation and Exam: I have personally completed a history, physical exam & review of systems for this patient (see notes). Airway Assessment: Mallampati Class II - (soft palate, fauces & uvula are visible) Prior History of Anesthesia Complications: none ASA Classification: Class 2 - A normal healthy patient with mild systemic disease Sedation/ Anesthesia Plan: intravenous sedation Medications Used: propofol intravenously Monitoring and Safety: The patient was placed on a manager monitoring and vital signs, pulse oximetry and level of consciousness were continuously evaluated throughout the procedure. The patient was closely monitored until recovery from the medications was complete and the patient had returned to baseline status. Respiratory therapy was on standby at all times during the procedure. (The following sections must be completed) Post-Sedation Vital Signs: see RN notes Procedure Start time : see RN notes Procedure Stop time: see RN notes Post-Sedation Exam: Breathing easily. Patient has excellent dorsalis pedis and posterior tibialis pulses in the left lower extremity. Patient now reports normalization of weird feeling of the left foot lower leg area. Normal sensation and motor function of the left lower extremity postreduction. Complications: none Joint Reduction Procedure Note Indication: Joint dislocation Consent: The patient was counseled regarding the procedure, it's indications, risks, potential complications and alternatives and any questions were answered. Consent was obtained. Timeout performed per policy and procedure. Procedure: The pre-reduction exam showed distal neurologic function to be impaired. The patient wasplaced in the appropriate position. Anesthesia/pain control was obtained using IV tylenol. Reduction of the left hip was performed by direct traction. Post reduction films were obtained and revealed satisfactory reduction. A post-reduction exam revealed distal perfusion & neurologic function trisha normal. The affected area was immobilized with none. The patient tolerated the procedure well. Complications: None ED COURSE Pertinent Labs & Imaging studies reviewed. (See chart for details) Medications Administered Medications sodium chloride 0.9% syringe 5-10 mL (not administered) sodium chloride 0.9% IV line flush 50 mL (not administered) acetaminophen (OFIRMEV) infusion 1,000 mg (0 mg Intravenous Stopped 03/13/18 1203) sodium chloride 0.9 % 1,000 mL IV bolus ( Intravenous Stopped 03/13/18 1308) propofol (DIPRIVAN) injection 200 mg (100 mg Intravenous Given by Other 03/13/18 1329) MEDICAL DECISION MAKING The patient is a left hip dislocation. Patient is discussed with his orthopedic group regarding whether or not they would like me to attempt closed reduction here in the emergency department or take the patient to the OR. Currently awaiting callback in regards to their final decision (1145 AM). At 1240 PM Azul from [facility] Called back and requested crosstable lateral x-ray be performed to confirm posterior dislocation. I informed her it had already been done and was in the PACS systemfor her to review. She reviewed this film and then stated that orthopedics would like us to try reduction here in the ER. As a result I have asked nursing to get consent and set up for procedural sedation with propofol. Patient appears to be an appropriate candidate for procedural sedation at this time. Closed reduction of the left hip dislocation was successfully performed with extending the left hipin a straight position and then gentle mild traction with minimal rotation of the hip itself. Reduced quite easily. medications. X-rays confirm successful reduction with no evidence of any fractures.Patient is neurovascularly intact post reduction. Patient is discharged to follow-up with his orthopedic physician later this week. Instructed on limiting rotation and flexion of the left hip. FINAL IMPRESSION 1. Closed posterior dislocation of left hip, initial encounter ([facility]) CRITICAL CARE Condition at Discharge/Transfer from Department: Improved In [...] recognition technology and may contain unintended errors Janes Pelaez MD 03/13/18 1400 documented in this encounter Plan of Treatment Upcoming Encounters Date Type Department Care Team (Late st Contact Info) Description 06/28/2024 9:40 AM EST Clinical Support [facility] [address] [place] [phone] 11/19/2024 1:40 PM EDT Office Visit SEP Neurology [facility] [address] [place] [phone] Lyndsay Brewer DO [address] [place] [address] documented as of this encounter [...] Name Priority Date/Time Associated Diagnosis Comments XR HIP LEFT AP EULOGIO 03/13/2018 1:29 PM EDT SALINE LOCK IV STAT 03/13/2018 11:31 AM EDT XR HIP LEFT AP LATERAL W AP PELVIS EULOGIO 03/13/2018 11:24 AM EDT XR CHEST PA OR AP EULOGIO 03/13/2018 11: 24 AM EDT documented in this encounter Results * XR HIP LEFT AP (03/13/2018 1:29 PM EDT) Anatomical Region Laterality Modality Hip Radiographic Pauly ging 03/13/2018 1:29 PM EDT Impressions 03/13/2018 2:30 PM EDT Limited single view demonstrating likely reduction of left hip joint. Narrative 03/13/2018 2:30 PM EDT XR HIP LEFT AP, ??03/13/2018 1:29 PM CLINICAL HISTORY: ??-HIP PAIN COMPARISON: ??Radiograph from earlier same date PROCEDURE COMMENTS: Routine views per protocol. FINDINGS: Limited single view with likely relocation of the left hip joint. No fracture. Soft tissues are unremarkable. Procedure Note Rigo Wilcox MD - 03/13/2018 XR HIP LEFT AP, 03/13/2018 1:29 PM CLINICAL HISTORY: -HIP PAIN COMPARISON: Radiograph from earlier same date PROCEDURE COMMENTS: Routine views per protocol. FINDINGS: Limited single view with likely relocation of the left hip joint. Nofracture. Soft tissues are unremarkable. IMPRESSION: Limited single view demonstrating likely reduction of left hip joint. us Janes Pelaez MD IMG DIAGNOSTIC IMAGING ORDERAB LES Final Result * XR CHEST PA OR AP (03/13/2018 11:24 AM EDT) Anatomical Region Laterality Modality Chest Radiographic Pauly ging 03/13/2018 11:2 4 AM EDT Impressions 03/13/2018 11:38 AM EDT No acute cardiopulmonary process. Narrative 03/13/2018 11:38 AM EDT CR, CHEST PA OR AP, ??03/13/2018 11:24 AM CLINICAL HISTORY: ??-HIP PAIN COMPARISON: ??None. PROCEDURE COMMENTS: Frontal chest x-ray, PA or AP technique. FINDINGS: No acute failure, pneumonia, or effusion. No pneumothorax. Procedure Note Andrews Muro MD - 03/13/2018 CR, CHEST PA OR AP, 03/13/2018 11:24 AM CLINICAL HISTORY: -HIP PAIN COMPARISON: None. PROCEDURE COMMENTS: Frontal chest x-ray, PA or AP technique. FINDINGS: No acute failure, pneumonia, or effusion. No pneumothorax. IMPRESSION: No acute cardiopulmonary process. us Janes Pelaez MD IMG DIAGNOSTIC IMAGING ORDERAB LES Final Result * XR HIP LEFT AP LATERAL W AP PELVIS (03/13/2018 11:24 AM EDT) Anatomical Region Laterality Modality Hip Radiographic Pauly ging 03/13/2018 11:2 4 AM EDT Impressions 03/13/2018 11:37 AM EDT Posterior dislocation of femoral component of left hip prosthesis. Narrative 03/13/2018 11:37 AM EDT XR HIP LEFT AP LATERAL W AP PELVIS, ??03/13/2018 11:24 AM CLINICAL HISTORY: ??-HIP PAIN COMPARISON: ??08/24/2017. PROCEDURE COMMENTS: ??AP view of the pelvis with AP and frog-leg views of the hip. FINDINGS: The femoral component of the patient's total hip prosthesis on the left is dislocated posteriorly. No fracture is identified. Mild degenerative changes are noted, right hip. Procedure Note Pk Elliott MD - 03/13/2018 XR HIP LEFT AP LATERAL W AP PELVIS, 03/13/2018 11:24 AM CLINICAL HISTORY: -HIP PAIN COMPARISON: 08/24/2017. PROCEDURE COMMENTS: AP view of the pelvis with AP and frog-leg views ofthe hip. FINDINGS: The femoral component of the patient's total hip prosthesis on the leftis dislocated posteriorly. No fracture is identified. Mild degenerativechanges are noted, right hip. IMPRESSION: Posterior dislocation of femoral component of left hip prosthesis. us Janes Pelaez MD IMG DIAGNOSTIC IMAGING ORDERAB LES Final Result documented in this encounter Visit Diagnoses Diagnosis Closed posterior dislocation of left hip, initial encounter (HCC)- Primary documented in this encounter Administered Medications Inactive Administered Medications - up to 1 most recent administrations Medication Order MAR Action Action Date Dose Rate Site acetaminophen (OFIRMEV) infusion 1,000 mg 1,000 mg, Intravenous, ONCE, 1 dose, On Mon03/13/18 at 1145, Administer over 15 Minutes, Maximum adult dose of acetaminophen is 4000 mg from all sources in 24 hours. IV Started 03/13/2018 11:44 AM EDT 1,000 mg 400 mL/hr propofol (DIPRIVAN) injection 200 mg 200 mg, Intravenous, ONCE, 1 dose, On Mon03/13/18 at 1245, * HIGH ALERT MEDICATION * * Individual Double Check Required* Do NOT administer Propofol if allergic to eggs. Given by Other 03/13/2018 1:29 PM EDT 100 mg sodium chloride 0.9 % 1,000 mL IV bolus Intravenous, ONCE, 1 dose, On Mon03/13/18 at 1200, at 983.6 mL/hr IV Started 03/13/2018 12:05 PM EDT 983.6 mL/hr sodium chloride 0.9% IV line flush 50 mL 50 mL, Intravenous, at 999 mL/hr, PRN, Starting on Mon03/13/18 at 1131, Until Mon03/13/18 at 1844, Line Care, Flush with 50 mL after IVPB to insure complete administration of the dose. May use the saline infusion to back flush IVPB tubing as needed., Use this order to document priming and flushing IV line after medication administration. sodium chloride 0.9% syringe 5-10 mL 5-10 mL, Intravenous, PRN, Starting on Mon03/13/18 at 1131, Until Mon03/13/18 at 1844, Line Care, Flush with 5 mL saline pre/post IVP, and 5 mL prior to IVPB or blood product administration. Protocol for PERIPHERAL IV saline lock maintenance, flush with 3-5 mL saline syringe every 8 hours., Flush every shift or after IV medication documented in this encounter Active and Recently Administered Medications Times are shown in EDT. Scheduled Medication Order 03/11/2018 03/12/2018 03/13/2018 acetaminophen (OFIRMEV) infusion 1,000 mg (COMPLETED) 1,000 mg, Intravenous, ONCE, 1 dose, On Mon03/13/18 at 1145, Administer over 15 Minutes, Maximum adult dose of acetaminophen is 4000 mg from all sources in 24 hours. 1144 (IV Started - P rovider: Zuly Thornton RN)1203 (Stopped - Provider: Zuly Thornton RN) propofol (DIPRIVAN) injection 200 mg (COMPLETED) 200 mg, Intravenous, ONCE, 1 dose, On Mon03/13/18 at 1245, * HIGH ALERT MEDICATION * * Individual Double Check Required* Do NOT administer Propofol if allergic to eggs. 1329 (Given by Other - Provider: Zuly Thornton RN - Comment: Dr Pelaez) sodium chloride 0.9 % 1,000 mL IV bolus (COMPLETED) Intravenous, ONCE, 1 dose, On Mon03/13/18 at 1200, at 983.6 mL/hr 1205 (IV Started - P rovider: Zuly Thornton RN)1308 (Stopped - Provider: Zuly Thornton RN) PRN Medication Order 03/11/2018 03/12/2018 03/13/2018 sodium chloride 0.9% IV line flush 50 mL 50 mL, Intravenous, at 999 mL/hr, PRN, Starting on Mon03/13/18 at 1131, Until Mon03/13/18 at 1844, Line Care, Flush with 50 mL after IVPB to insure complete administration of the dose. May use the saline infusion to back flush IVPB tubing as needed., Use this order to document priming and flushing IV line after medication administration. sodium chloride 0.9% syringe 5-10 mL 5-10 mL, Intravenous, PRN, Starting on Mon03/13/18 at 1131, Until Mon03/13/18 at 1844, Line Care, Flush with 5 mL saline pre/post IVP, and 5 mL prior to IVPB or blood product administration. Protocol for PERIPHERAL IV saline lock maintenance, flush with 3-5 mL saline syringe every 8 hours., Flush every shift or after IV medication documented in this encounter Orders Medications Ordered That Tone ht Not Have Been Administered Count Last Ordered Date First Ordered Date sodium chloride 0.9% IV line flush 50 mL 1 03/13/2018 sodium chloride 0.9% syringe 5-10 mL 1 02/24 Nursing Count Last Ordered Date First Orde red Date CARDIAC MONITORING 1 03/13/2018 NURSING COMMUNICATION 1 03/13/2018 PULSE OX 1 03/13/2018 IV Count Last Ordered Date First Orde red Date SALINE LOCK IV 1 03/13/2018 documented in this encounter Care Teams Power Line Installer Relationship Specialty Start Date End Date Michelle Garrido APRN PCP - General Nurse Practitioner 01/09/17 01/14/21 documented as of this encounter
--- OUTSIDE RECORDS SUMMARY | 2024-05-29 15:50 | XMS_ITS | Encounter Summary ---
Author Organization [place] [address] Care Team Providers Care Washcloth Folder Name Role Phone Michelle Garrido APRN Primary Care Provider Unava ilable Reason for Visit * Reason Comments Medication Refill Encounter Details Date Type Department Care Team (Late st Contact Info) Description 05/28/2018 Refill [facility] [address] [place] [address] Renu Doll MD Medication Refill [...] No 07/11/2017 9:14 AM Riya Pérez DEMARCUSJane documented in this encounter Plan of Treatment Upcoming Encounters Date Type Department Care Team (Late st Contact Info) Description 06/28/2024 9:40 AM EST Clinical Support [facility] [address] [place] [phone] 11/19/2024 1:40 PM EDT Office Visit SEP Neurology [facility] [address] [place] [phone] Lyndsay Brewer DO [address] [facility] [address] [place] [address] documented as of this encounter [...] prescriptions documented in this encounter Care Teams Washcloth Folder Relationship Specialty Start Date End Date Michelle Garrido APRN PCP - General Nurse Practitioner 01/09/17 01/14/21 documented as of this encounter
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
--- OUTSIDE RECORDS SUMMARY | 2024-05-29 15:51 | XMS_ITS | Encounter Summary ---
Author Organization [place] [address] Care Team Providers Care Nurse Case Management Name Role Phone Michelle Garrido APRN Primary Care Provider Unava ilable Reason for Visit * Reason Onset Date Comments Annual Exam 09/20/2017 need for annual Encounter Details Date Type Department Care Team (Late st Contact Info) Description 09/20/2017 Telephone [facility] [address] [place] [phone] Maddy White, RMA [address] [place] [address] Annual Exam (need for annual) Social History Tobacco Use Types Packs/Day Years [...] Telephone Encounter - Maddy White RMA - 09/20/2017 1:47 PM EDT Patient advised he is due for an annual exam. He will call the office back to schedule. documented in this encounter Plan of Treatment Upcoming Encounters Date Type Department Care Team (Late st Contact Info) Description 06/28/2024 9:40 AM EST Clinical Support [facility] [address] [place] [phone] 11/19/2024 1:40 PM EDT Office Visit [facility] [address] [place] [address] Lyndsay Brewer DO [address] [facility] [address] [place] [address] documented as of this [...] filedocumented in this encounter Care Teams Nurse Case Management Relationship Specialty Start Date End Date Michelle Garrido, DETAILER FURNITURE PCP - General Nurse Practitioner 01/09/17 01/14/21 documented as of this encounter
--- OUTSIDE RECORDS SUMMARY | 2024-05-29 15:51 | XMS_ITS | Encounter Summary ---
Author Organization [place] [address] Care Team Providers Care Gas Meter Prover Name Role Phone Michelle Garrido APRN Primary Care Provider Willie aguila Encounter Details Date Type Department Care Team (Late st Contact Info) Description 09/20/2017 Orders Only [facility] [address] [place] [phone] Maddy White, RMA [address] [place] [address] Irritable bowel syndrome with diarrhea Social History [...] No 07/11/2017 9:14 AM EST Choi Riya Garcia, RMJane * Because of a physical, mental or emotional condition, does this person have difficulty doing errands alone such as visiting a doctor's office or shopping? Answer Date of Assessment Author No 07/11/2017 9:14 AM AIMEE Jimbo Riya sosa Jose RMA documented as of this encounter Mental Status * Because of a physical, mental or emotional condition, does this person have serious difficulty concentrating, remembering or making decisions? Answer Entry Date Author No 07/11/2017 9:14 AM EST Riya Choi, RMA documented in this encounter Plan of Treatment Upcoming Encounters Date Type Department Care Team (Late st Contact Info) Description 06/28/2024 9:40 AM EST Clinical Support [facility] [place] [address] [place] [phone] 11/19/2024 1:40 PM EDT Office Visit [facility] [address] [place] [address] Lyndsay Brewer DO [address] [place] [address] documented as of this encounter [...] syndrome documented in this encounter Care Teams Gas Meter Prover Relationship Specialty Start Date End Date Michelle Garrido APRN PCP - General Nurse Practitioner 01/09/17 01/14/21 documented as of this encounter
--- OUTSIDE RECORDS SUMMARY | 2024-05-29 15:51 | XMS_ITS | Encounter Summary ---
Author Organization [place] [address] Care Team Providers Care Poster Name Role Phone Michelle Garrido APRN Primary Care Provider Unava ilable Reason for Visit * Reason Comments Medication Refill Encounter Details Date Type Department Care Team (Late st Contact Info) Description 09/09/2017 Refill [facility] [address] [place] [address] Renu Doll MD Medication Refill [...] TAB BY MOUTH DAILY. 90 Tab 2 09/11/2017 07/11/2018 documented in this encounter Plan of Treatment Upcoming Encounters Date Type Department Care Team (Late st Contact Info) Description 06/28/2024 9:40 AM EST Clinical Support [facility] [place] [address] [place] [phone] 11/19/2024 1:40 PM EDT Office Visit [facility] [address] [place] [address] Lyndsay Brewer DO [address] [place] [address] [place] [address] documented as of this encounter Goals [...] TAKE 1 TAB BY MOUTH DAILY. Reorder 12/26/2016 09/09/2017 documented as of this encounter Care Teams Poster Relationship Specialty Start Date End Date Michelle Garrido APRN PCP - General Nurse Practitioner 01/09/17 01/14/21 documented as of this encounter
--- OUTSIDE RECORDS SUMMARY | 2024-05-29 15:51 | XMS_ITS | Encounter Summary ---
Author Organization [place] [address] Care Team Providers Care Manufacturing Process Engineer Name Role Phone Michelle Garrido APRN Primary Care Provider Unava ilable Reason for Visit * Reason Onset Date Comments Medication Refill 09/20/2017 Encounter Details Date Type Department Care Team (Late st Contact Info) Description 09/20/2017 Refill [facility] [place] [address] [place] [address] Michelle Garrido APRN Medication Refill [...] by mouth 2 times daily. 60 Tab 09/20/2017 10/14/2017 documented in this encounter Miscellaneous Notes * Telephone Encounter - Marcela De Leon MD - 09/20/2017 4:32 PM EDT sent * Telephone Encounter - Maddy White RMA - 09/20/2017 1:45 PM EDT Refill of viberzi to [facility]. documented in this encounter Plan of Treatment Upcoming Encounters Date Type Department Care Team (Late st Contact Info) Description 06/28/2024 9:40 AM EST Clinical Support [facility] [place] [address] [employer] [address] [place] [phone] 11/19/2024 1:40 PM EDT Office Visit [facility] [address] [place] [place] [address] Lyndsay Brewer DO [address] [place] [address] [place] [address] documented as of this [...] TABLET BY MOUTH TWICE A DAY Reorder 08/18/2017 09/20/2017 documented as of this encounter Care Teams Manufacturing Process Engineer Relationship Specialty Start Date End Date Michelle Garrido APRN PCP - General Nurse Practitioner 01/09/17 01/14/21 documented as of this encounter
--- OUTSIDE RECORDS SUMMARY | 2024-05-29 15:51 | XMS_ITS | Encounter Summary ---
Author Organization [place] [address] Care Team Providers Care Utilization Review Rn Name Role Phone Michelle Garrido APRN Primary Care Provider Unava ilable Reason for Visit * Reason Onset Date Comments Medication Refill 07/19/2017 Encounter Details Date Type Department Care Team (Late st Contact Info) Description 07/19/2017 Refill [facility] [address] [place] [address] Michelle Garrido APRN Medication Refill [...] by mouth 2 times daily. 60 Tab 07/19/2017 07/19/2017 eluxadoline (VIBERZI) 100 mg Oral TabletIndications:I rritable bowel syndrome with diarrhea Take 1 Tab by mouth 2 times daily. 60 Tab 07/19/2017 07/19/2017 documented in this encounter Miscellaneous Notes * Addendum Note - Karlie Matthews RMA - 07/19/2017 12:53 PM EST Addended by: KARLIE MATTHEWS on: 07/19/2017 12:53 PM Modules accepted: Orders * Telephone Encounter - Michelle Phillips MA - 07/19/2017 9:48 AM EST Sent in refill and informed pt. * Telephone Encounter - [place] - 07/19/2017 9:06 AM EST Medication Refill: Name of medication: VIBERZI 100 mg Oral Tablet Dose: Sig: DENZEL:as expected 06/06/17 Pharmacy:[id number] - [place] [address] [address] [facility] [phone] Last Appointment:07/11/17 Number to contact patient:[phone] documented in this encounter Plan of Treatment Upcoming Encounters Date Type Department Care Team (Late st Contact Info) Description 06/28/2024 9:40 AM EST Clinical Support [facility] [address] [place] [address] 11/19/2024 1:40 PM EDT Office Visit [facility] [address] [place] [address] Lyndsay Brewer, DO [address] [place] [address] documented as of this encounter [...] TABLET BY MOUTH TWICE A DAY Reorder 06/06/2017 07/19/2017 documented as of this encounter Care Teams Utilization Review Rn Relationship Specialty Start Date End Date Michelle Garrido APRN PCP - General Nurse Practitioner 01/09/17 01/14/21 documented as of this encounter
--- OUTSIDE RECORDS SUMMARY | 2024-05-29 15:51 | XMS_ITS | Encounter Summary ---
Author Organization 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 [address] Phone: tel: fax: Referral ID Status Reason Start Date Expiration Date Visits Re quested Visits Authorized [id number] 07/13/2017 07/13/2018 1 1 Encounter Details Date Type Department Care Team (Late st Contact Info) Description 07/26/2017 11:40 AM EST - 07/26/2017 1:40 PM EST Surgery EDG PERIOP [facility] [place] [address] Augie Ramires MD [address] [place] [address] TOTAL HIP ARTHROPLASTY/REPLACEM ENT-ANTERIOR OR REVISION ANTERIOR (CRISTINA/MONO) Surgery Details Date/Time Status Location OR Service Patient Class Case Class Case Type Trauma Case? 07/26/2017 11:40 AM Posted EDG MAIN OR EDG Room 11- XI Orthopedics Surgery Admit N/A Panel 1 Procedure LRB Anes Op Region Wound Class Comments TOTAL HIP ARTHROPLASTY/REPLACEMENT-A NTERIOR OR REVISION ANTERIOR (CRISTINA/MONO) Left General Clean LEFT TOTAL HIP ARTHROPLASTY- REVISION-ANTERIOR Surgeon Surgeon Role Service Panel Augie Ramires MD Primary Orthopedics 1 Special Needs SIRIA TABLE, LARGEST C-ARM, [place] AND NEPHEW HEAD AND LINER, POSSIBLE CUP EXCHANGESMITH AND NEPHEW NOTIFIED 07/20 MAS documented in this encounter Social History Tobacco [...] Sign Reading Time Taken Comments Blood Pressure 142/88 07/27/2017 8:16 AM EST Pulse 96 07/27/2017 9:43 AM EST Temperature 36.8 ??C (98.3 ??F) 07/27/2017 8:16 AM ES T Respiratory Rate 16 07/27/2017 9:43 AM EST Oxygen Saturation 94% 07/27/2017 4:40 AM EST Inhaled Oxygen Concentration - - Weight 87.7 kg (193 lb 5 oz) 07/26/2017 10:20 AM EST Height 170.2 cm (5' 7 ) 07/26/2017 10:20 AM EST Body Mass Index 30.28 07/26/2017 10:20 AM EST documented in this encounter Functional [...] Pérez RMA documented as of this encounter Discharge Summaries * Thao Hardin, DISASTER RESPONSE DIRECTOR - 07/27/2017 4:15 PM EST [facility] Discharge Summary Patient Name: Zuhair Whitlock : 1965 Admit Date: 07/26/2017 Discharge Date: 07/27/2017 Admitting Physician: Augie Ramires MD Discharge Physician: Augie Ramires MD Reason for Hospitalization: Active Hospital Problems *Status post left hip replacement IBS (irritable bowel syndrome) HTN (hypertension), malignant Hospital Course/Significant Findings: The patient had a routine post-operative course: On the day of admission, the patient underwent the procedure described, and was admitted to the hospital. Pain was controlled during their hospitalization. They were evaluated by Physical Therapy, and assisted with ambulation. They tolerated po intake, and their overall medical condition was felt to be stable, including laboratory values, vitals signs, and clinical presentation and examination. On the day of discharge, they were felt stable for discharge from hospital care. Procedures Performed: Revision Left Hip Replacement Consults: Treatment Team: Consulting Physician: Leatha Avila MD Discharge Exam: See Progress Note Discharge Diagnoses: Status post left hip replacement Condition at Discharge: good Disposition: Home Discharge Medications:: Medication List START taking these medications acetaminophen 325 mg Tab Dose: 650 mg Qty: 56 Tab Refills: 0 Commonly known as: TYLENOL 650 mg, Oral, EVERY 6 HOURS SCHEDULED Aspirin 325 mg Tbec Dose: 325 mg Qty: 60 Tab Refills: 0 325 mg, Oral, 2 TIMES DAILY celecoxib 200 mg Cap Dose: 200 mg Qty: 30 Cap Refills: 0 Commonly known as: CeleBREX 200 mg, Oral, 2 TIMES DAILY PRN docusate sodium 100 mg Cap Dose: 100 mg Qty: 30 Cap Refills: 0 Commonly known as: COLACE 100 mg, Oral, 2 TIMES DAILY PRN CONTINUE taking these medications ADVAIR DISKUS 500-50 mcg/dose Dsdv Qty: 120 Each Refills: 2 Generic drug: fluticasone-salmeterol INHALE 1 PUFF BY MOUTH 2 TIMES A DAY * albuterol 5 mg/mL Nebu Dose: 5 mg/hr Qty: 40 mL Refills: 2 Commonly known as: PROVENTIL 5 mg/hr, Nebulization, CONTINUOUS * VENTOLIN HFA 90 mcg/actuation Hfaa Qty: 54 Inhaler Refills: 2 Generic drug: albuterol USE 1 OR 2 PUFFS EVERY 4 HOURS NEEDED FOR WHEEZING. CIALIS 5 mg Tab Qty: 90 Tab Refills: 0 Generic drug: tadalafil TAKE 1 TABLET BY MOUTH NEEDED FOR ERECTILE DYSFUNCTION eluxadoline 100 mg Tab Dose: 1 Tab Qty: 60 Tab Refills: 0 Comment: Not to exceed 5 additional fills before 10/30/2017. Commonly known as: VIBERZI 1 Tab, Oral, 2 TIMES DAILY losartan-hydrochlorothiazide 50-12.5 mg Tab Dose: 1 Tab Qty: 90 Tab Refills: 2 Commonly known as: HYZAAR 1 Tab, Oral, DAILY metroNIDAZOLE 0.75 % Gel Qty: 70 g Refills: 0 Commonly known as: METROGEL Topical, 2 TIMES DAILY Nebulizer Accessories Misc Qty: 1 Each Refills: 0 Commonly known as: ALL FLOW 4000 KIT Formulary equivalent Nebulizers Misc Qty: 1 Each Refills: 0 Commonly known as: SANG BABY NEBULIZER Formulary equivalent * This list has 2 medication(s) that are the same as other medications prescribed for you. Read thedirections carefully, and ask your doctor or other care provider to review them with you. Where to Get Your Medications You can get these medications from any pharmacy Bring a paper prescription for each of these medications ?? acetaminophen 325 mg Tab ?? Aspirin 325 mg Tbec ?? celecoxib 200 mg Cap ?? docusate sodium 100 mg Cap Follow Up: Augie Ramires MD [address] [place] [phone] In 2 weeks Signed: Thao Hardin APRN 07/31/2017 12:34 PM Cosigned by Augie Ramires MD at 08/07/2017 5:42 PM EST documented in this encounter Discharge Instructions * Discharge Instructions* Tiara Muhammad RN - 07/27/2017 12:05 PM EST Images from the original note were not included. Augie Ramires MD Post Operative Instructions: [facility] [address] [place] [address] [phone] ([phone]) [facility] [phone] ([phone]) [place] Procedure / Diagnosis: Revision Left Hip Replacement Pain / Swelling / Medications: X Expect some discomfort, even with pain medications.Take the pain medication prescribed to you as directed. Your pain should be controlled. If it is not, please call. X Some swelling, stiffness, and bruising is expected after Joint Replacement. X Resume taking your regular medications as directed. X Please call between 9:00am and 3:00pm Monday - Monday for prescription refill requests X Elevate your extremity when resting as much as possible. Also, applying an ice bag/cooling pack to the outside of your cast/splint/dressing may be helpful. Do not apply ice directly to the skin to decrease the risk of thermal injury. X Please call [phone] if you are having pain that is not controlled by ice, elevation, and pain medication. Dressings: X Keep dressing on until follow-up. X The sutures/jason will come out at your first or second post-op visit (10-14 days). Refrain from using a bathtub or hot tub for 5-7 days after sutures are removed. X Please call, ,if you develop any signs of infection (spreading redness, warm to touch, pus/foul smelling drainage). Activity: X Remain full weight bearing as tolerated with an assistive device until follow up. X Walk carefully with assistance! Surgery places you at risk of falls during recovery. Be especially careful on stairs as you recover. X Wiggle your toes and ankles to keep circulation moving while resting. Follow-up Appointment / Questions: X We will want to see you in the clinic in 10-14 days, unless otherwise directed. X Please call [phone] (BONE) or (BONE) to make an appointment X Please call if you develop any problems (Severe pain, Shortness of breath / difficulty breathing,Temperature greater than 101oF). We are available for 24/ for any of your urgent needs, and preferyou to call us with concerns. X No smoking as using tobacco products and nicotine slows the healing process, including bone healing. DRESSINGS: You may notice some blood spotting coming through the dressing on your hip or knee after surgery. Some drainage is common. It is important for you to watch this area, and contact us if it continues to spread. Otherwise, any small area of spotting will dry and can be ignored until we remove the dressing at your next office visit. SUTURES: The sutures utilized in closing any wounds are often an absorbable type. If metal jason or other non-absorbable sutures are utilized, they will need to be removed, unless you are told otherwise. They will usually be removed in 10-14 days. PHYSICAL THERAPY: Contact the Physical Therapy department, ideally through [facility] at [phone], to work with your individual therapist for hip and knee replacement pre-operative visits andrecovery. We will plan for outpatient therapy, unless otherwise directed, as they will be familiar with your recovery progress and protocols. They will be expecting you, and have arranged for your visit. If you prefer to use another provider/location for Physical Therapy, this is also acceptable, though we are less familiar with their practices and protocols for your recovery after joint replacement, and your recovery and terminal system operator functional outcomes may be less predictatble. MEDICATIONS: You will be provided with a prescription for a pain medication when you are ready to leave the hospital. The maximum daily dose of Tylenol if you have a normal liver is 3500 mg. Please try to anticipate the need for any refills on your pain medication, and contact our office early in the day, one or two days before running out completely. We strongly discourage calls for refills after business hours or on weekends, as this leaves you with limited access to care, and care from providers who are less familiar with you and your hip or knee. Generally speaking, they will not be able to supply youwith pain medications after hours. Contact our office for any concerns, we are available 24 hours a day, every day. Congratulations on your new hip or knee! With a little care and dedication to your recovery, we hope you enjoy your new joint replacement for years to come! Dear Patient, The staff of at [facility] sincerely hopes that your hospital stay was pleasant. We try to ensure that our patients are cared for in the most respectful and comfortable way. The staff members of pride themselves on delivering kind and compassionate care to each and every patient. Working collaboratively with physicians, social workers, case preparer and liner, and the discharge team, we attempt to anticipate your needs, in preparation for discharge. This discharge information includes the answers to many frequently asked questions that you may have. It is our goal that you have information that is necessary to safely care for yourself at home. With this goal in mind, we have included information on any new medications that may have been started while you were in the hospital, including the name, dosages and side effects that you may experience. If you have any questions about current medications prior to discharge, please ask your nurse for further explanation. Thank you for choosing [facility]. We hope that you have had a good experience. Sincerely, The Staff of SIGNS AND SYMPTOMS OF INFECTION A wound infection happens when a type of germ ( bacteria) starts growing in the wound. In some cases, this can cause the wound to break open. If cared for properly, the infected wound will heal from the inside to the outside. Wound infections need treatment. CAUSES An infection is caused by bacteria growing in the wound. SEEK MEDICAL CARE IF: You have an increase in swelling, pain, or redness around the wound. You have an increase in the amount of drainage coming from the wound. There is a bad smell coming from the wound. More of the wound breaks open. You have a fever over 101 degrees. DRESSINGS Your surgeon has chosen the appropriate wound closure following your surgery. Please choose the correct instructions below (Dermabond Prineo or [place]) that coincide with your wound dressing. ?? DERMABOND PRINEO Your Healthcare Professional may have chosen to use Dermabond Prineo skin closure system to closeyour surgical wound. Dermabond Prineo is a combination of a mesh and a liquid adhesive that allows the incision or wound to be held together during the healing process. Dermabond Prineo should remain in place until your healthcare professional has determined that adequate healing has occurred, which is usually anywhere between 7-14 days. In most cases, Dermabond Prineo is easily removed with little or no discomfort. In the even that you notice the Dermabond Prineo is beginning to loosen or may be coming off, contact your healthcare professional. The following information is provided to help you understand how to care for your incision and is based on the FDA-cleared product labeling. You should always follow the instructions of your healthcare provider. Showering with Prineo If directed by your physician, you may occasionally and briefly wet your incision or wound that wastreated with Dermabond Prineo in the shower. Do not soak or scrub you incision or wound. Do not swim or soak your incision or wound in water. After showering, gently blot your incision or wound drywith a soft towel. If a dry protective dressing is being used over Prineo , it should be replaced with a fresh, dry, protective dressing after showering as directed by your health care practitioner.Care should also be taken so that any tape that may be part of the dry protective dressing does notcome into contact with the Prineo because when the tape is removed, it may also remove the Prineo dressing. Wound Healing with Prineo If you experience redness, swelling, discomfort, warmth, or pus, contact your healthcare professional and he or she will determine how your incision or wound is healing and take the necessary steps to address any issue. Exercise Do not engage in strenuous exercise that may cause additional stress on your incision or wound. Follow your healthcare professional's guidelines about when you can return to your normal activities. Removing Dermabond Prineo Your healthcare professional will determine when the healing process of your incision or wound has been completed and the Prineo is ready to be remove, which is usually between 7 to 14 days. When healing is complete, your healthcare professional will carefully peel off the Prineo dressing. Prior to removal, do NOT scratch, rub or pick at the mesh. This may loosen the adhesive and mesh before the skin is healed. In the event that you notice the Prineo is beginning to loosen and may be coming off or comes offthe skin/wound, contact your healthcare professional immediately. Ointments or Liquids Topical ointments, liquids, or any other product (other than dry dressings) should NOT be applied to the incision while Prineo is in place. These may loosen Prineo from the skin before it has completely healed. If you have any questions or concerns about Dermabond Prineo , please contact your Healthcare Professional. ?? JASON The dressing that you leave the hospital in is waterproof, therefore, you may shower with the dressing in place. Avoid baths, swimming pools and hot tubs until directed by your surgeon. When showering, allow water to run over the incision and pat it dry. Should the dressing get water inside, remove it immediately. The dressing should be removed 3 to 4 days after discharge and the incision may be left open to air. If the incision is draining, cover with gauze and change daily and as needed until drainage stops. Do not apply any creams, lotions, powders, or medications to your incision. This may interfere withyour normal healing process. Wash your hands frequently with soap and water and before and after contact with the wound site. If you have any questions or concerns, please contact your physician's office. Gel Wrap When you are ready to go home: Be sure to take your SMI cold therapy wrap and gel bags with you for continued comfort and use throughout your rehabilitation. If you don' already have them, ask your nurse or aide to retrieve your SMI gel bags from the patient freezer. Home use precautions: Always follow your physician or caregiver's specific application instructions upon discharge. Your SMI cold therapy wrap and gel bags are designed to last for months following your surgery. Cold therapy instructions: Once frozen, slide gel bags into the gel pouch and secure your wrap to the affected area with the straps. NEVER place frozen gel bags directly onto skin, as this may cause frostbite injury. An additional protective barrier such as a washcloth, hand-towel or pillow-case may be necessary during prolonged treatment applications. Heat therapy instructions: Always follow your physician or caregiver's specific application instructions for heat therapy. Gelbags should be heated in a microwave one at a time. Heat each gel bag for one minute. If needed, add heat in additional 20-second intervals until desired temperature is achieved. USE EXTREME CAUTION! DO NOT OVERHEAT GEL BAG IN THE MICROWAVE THIS MAY CAUSE A SEVERE BURN. The gel pouch and wrap are both latex-free and the gel bag ingredients are non- toxic. If for some reason, the gel bag is punctured, dispose of it and re-order additional gel bags. SMI Wrap care instructions: The [facility] cold therapy wrap can be hand washed and air dried. Additional [facility] body specific wraps can be re-ordered from [employer] or call [phone]. [facility] re-order information: Visit our Patient Retail Store at [email or web address] Call Telephone orders: Chad Hose/Compression Stockings Chad hose/compression stockings are used to aid in circulation and prevent blood clots in post-operative and bed-ridden patients. To Apply: When applying stockings, it is best to do so first thing in the morning after resting with the legselevated. This will be the time legs are the least swollen making application a little easier. Gather the stockings down to the toe in your hands. Stretch the stocking over the toe, pulling it over the heel. Once the stocking is over the heel, gently grasp the stocking and pull it up the rest of the leg. Smooth out all wrinkles and do not allow the stocking to roll down the leg causing constriction or skin breakdown. To Remove: Gather the stocking at the ankle and slide the stocking over the heel. Slip off the foot. Maintenance: You MUST remove the stockings daily to bathe feet and legs and inspect the skin for breakdown. Report any signs of skin breakdown to your physician. Observe the lower extremity for circulatory function. Report any abnormalities in color, temperature, or pulses to your physician. Launder the stockings by hand with a mild detergent every couple of days overnight and lay them flat to dry. Reapply the stockings the next morning. Wear nonskid shoes or slippers when ambulating to reduce the risk of falls. You should wear your Chad Stockings for up to one month or until your surgeon discontinues them. DEEP VEIN THROMBOSIS (DVT) WHAT IS A DVT? Deep vein thrombosis, or DVT is a blood clot that forms in a vein deep in the body, usually in the lower leg or thigh but can occur elsewhere in the body. WHO IS AT RISK? Those with any of the following: a history of DVT, certain blood disorders, injury to a deep vein from surgery/broken bone/trauma, slowed blood flow due to decreased activity/movement, and the 1st 6 weeks after giving , recent or ongoing cancer treatment, a central venous catheter, age greater than 60, and overweight/obesity. SIGNS AND SYMPTOMS OF DVT ARE: Swelling of the leg or affected extremity, pain or tenderness in theleg, sometimes more prominent when standing or walking, increased warmth in the area of the leg that???s swollen or painful, and red or discolored skin on the leg or affected extremity. If untreated, a DVT can progress to a PE or pulmonary embolism, a serious condition where the bloodclot travels to the lungs causing serious injury to the lungs and other organs in the body. CALL YOUR PHYSICIAN IMMEDIATELY IF YOU EXPERIENCE: Unexplained shortness of breath, pain with deep breathing, coughing up blood, rapid breathing and fast heart rate. Reference: ???Deep Vein Thrombosis?? , U.[place]. Department of Health and Human Services, national [place] of Health, National Heart Lungs and Blood [place], Obtained on 06/04/2007 from http: www.nihlb i.nih.gov/health/dci/Diseases/Dvt/DVT_All.html USE OF A WALKER Do not pull on the walker to stand; this could cause you to fall backwards. When coming to a standing position, push up from the chair or bed then reach for the walker. When walking, move the walker first, then the affected leg and finally the stronger one. When sitting, reach back for the chair or bed and let yourself down slowly. When turning corners or turning around, take actual steps to do so. Do not pivot on one foot. Always wear sturdy, well-fitting shoes. Be very careful walking on uneven surfaces, or where the surface is wet, icy, oily or just waxed. Remove throw rugs and be aware of loose carpets. Watch out for dogs, cats, small children and theirtoys. Do not increase your weight bearing until the doctor tells you to do so. USE OF CRUTCHES When coming to a standing position, place both crutches in one hand and use the other hand to push up from the chair. After getting your balance, place one crutch under each arm. When walking with crutches, all weight should be on the hands. At no time should the weight be under the arms. When turning or backing up with crutches, the crutches should stay in front of the body. Be very careful walking on uneven surfaces, or where the surface is wet, icy, oily or just waxed. Always wear sturdy, well-fitting shoes. Remove throw rugs and be aware of loose carpets. Watch out for dogs, cats, children and their toys. When going up stairs, the stronger leg should go up first. When coming down stairs, crutches and the weaker leg should go first. Do not increase your weight bearing until the doctor tells you to do so. NUTRITIONAL SUPPLEMENT Continue taking the oral supplement for one month after discharge to assist with nutritional statusand healing. Because you are given a prescription and a coupon, you will need to pickle processor your supplement at your pharmacy counter. CONSTIPATION Hard-formed stool or difficult passage of bowel movement is known as constipation. The common causes of constipation are too little fiber in the diet, inactivity, too little fluid, and/or some medications (especially medications for pain). Watch for signs of constipation such as decreased appetite, firmness or distention of the stomach, hard formed stool and straining or pain with bowel movement. There are several things you can do not only to control it, but also to prevent constipation: 1. Try to slowly increase the amount of fiber in your diet. Look for breads with ???bran?? on the label, or whole cereals such as Fiber One, Bran Buds, Bran Checks, or Raisin Bran. Choose brown riceinstead of white rice. Eat dried beans, peas and lentils. Choose raw fruits and vegetables. Eat apples and pears with skin on, raisins, prunes, raspberries, and strawberries for higher fiber choices.Remember the fiber goal is 25-35 grams per day. 2. Drink plenty of liquids (6-8 cups) per day. 3. Be as active as possible. 4. Always respond to the urge to have a bowel movement. 5. After checking with your doctor, the use of Metamucil or other fiber supplements may help. 6. Try to have a bowel movement at the same time every day, preferable 15 to 45 minutes after breakfast. (Remember not to strain). You do not need to have a daily bowel movement. 7. Use over the counter laxatives with caution after trying other methods of relieving constipation. 8. If constipation continues despite the above instructions or you have any blood in your stool, contact your doctor. Reference: [facility] - Tools for Healthier Lives ? [employer]? . [employer]ie.? HOME SAFETY GUIDELINES Medications ??? Discard outdated or unused prescription medications ??? Take medications only as directed ??? Call for refills of medication on or Monday as pain medication is not refilled on the weekend ??? DO NOT take any anti-inflammatory medications while on your blood thinner unless specifically ordered by your physician Ice ??? Apply ice to your extremity several times throughout the day. ??? Alternate with the ice on for 20 - 30 minutes then off for 20 - 30 minutes. ??? Always lay a thin towel or clot between the ice and your skin. ??? Apply ice and lay flat with your leg elevated on three pillows 3-5 times per day for about 30 minutes. Floors/Room Arrangement ??? Secure floor coverings ??? Remove throw rugs ??? Avoid clutter ??? Remove cords from pathways ??? Use non-skid shoes and house slippers ??? Clean spills promptly ??? Arrange furniture in room for easy navigation ??? Easy access to all necessary living areas (kitchen, bathroom, living room) Stairs ??? Well lighted ??? Hand rails, if needed ??? Avoid clutter and storage of articles on stairs Electricity ??? Cords not frayed ??? Outlets not overloaded ??? Appliances away from water Kitchen ??? Needed items within reach ??? Consider use of microwave for convenience and safety ??? Fire extinguisher Bathroom ??? Elevated toilet seat ??? Tub/toilet handrails ??? Hand-held shower-head with shower seat ??? Are doors wide enough to accommodate walker or wheelchair? Miscellaneous ??? List of emergency names/numbers ??? Consider use of portable phone with preprogrammed numbers ??? No smoking in bed or with oxygen use ??? Smoke Detectors ??? Exit procedure in case of fire ??? Consider Lifeline Alert System ??? Consider use of night lights ??? Avoid uneven ground/pavement when walking outdoors ??? Carbon-monoxide detector to protect sleeping areas Reference: Centers for Disease Control and Prevention www.cdc.gov ADD: Home Safety [place] www.Homesafetycouncil.org MISCELLANEOUS Activity as tolerated as instructed by Physical Therapy. Crutches/ Walker for home use. Monitor incision for signs and symptoms of infection which include; increased warmth, redness, and/or drainage, foul odor or a temp greater than 101 degrees. Use pillow between legs in bed to keep operated leg to side. This is not necessary for anterior approach hip replacements. Follow up in physicians office as instructed, anticipate jason to be removed at follow up visit. Follow up at discharge with Physical Therapy as instructed. Patients must call and make their outpatient appointment at their convenience. Follow total hip precautions at all times. Refer to handout. Do not drive for six (6) weeks or until you have permission by your physician. PRE-PROCEDURE ANTIBIOTICS Following a total joint replacement, you must be pre-medicated with an antibiotic prior to certain procedures. Please let your physician know that you have a total joint prosthesis so they can prescribe the antibiotic. These procedures include: Any dental procedure Gynecological surgery Any type of infection Ingrown toenails Prostate or bladder surgery Genitourinary tract examinations Dermatology procedures Gastrointestinal procedures (EGD or Colonoscopy) Call [phone] ([facility]) for any questions or concerns. Also feel free to use the After Hours clinic at: [facility] [address] [place] [address] Monday-Monday 9:00 am to 9:00 pm Monday 9:00 am to 1:00 pm NO APPOINTMENT NECESSARY Be sure to attend your scheduled follow up appointment with the orthopedic surgeon. This appointment should have been made prior to surgery. Other Instructions: Pain Assessment: Location: leg Type: surgical (Instructed) Current pain management regimen (Instructed) IF PAIN INTENSIFIES OR PAIN IS UNRELIEVED WITH MEDICATIONS ORDERED, CALL YOUR DOCTOR Individual Instructions/Custom Documents/Teaching Sheets: DO NOT take anti-inflammatory medications while on a blood thinner. * Attachments The following attachments cannot be sent through Care Everywhere. * ACETAMINOPHEN TABLETS OR CAPLETS (MOLDOVAN) * ASPIRIN-ORAL (MOLDOVAN) * CELECOXIB - ORAL (MOLDOVAN) * DOCUSATE CAPSULES (MOLDOVAN) documented in this encounter Medications at Time of Discharge Nebulizer Accessories (ALL FLOW 4000 KIT) [facility] Formulary equivalent 1 Each 0 06/27/2012 acetaminophen 325 mg Oral Tab Take 2 Tabs by mouth every 6 hours for 7 days. 56 Tab 07/26/2017 8 Aspirin 325 mg Oral Tablet, Delayed Release (E.C.) Take 1 Tab by mouth 2 times daily for 30 days. 60 Tab 07/27/2017 8 documented as of this encounter Ordered Prescriptions Prescription Sig Dispense Quantity Refills Last Filled Start Date End Date celecoxib (CELEBREX) 200 mg Oral Capsule Take 1 Cap by mouth 2 times daily as needed for Pain. 30 Cap 07/26/2017 2017 docusate sodium (COLACE) 100 mg Oral Capsule Take 1 Cap by mouth 2 times daily as needed for Constipation . 30 Cap 07/26/2017 09/18/2017 Aspirin 325 mg Oral Tablet, Delayed Release (E.C.) Take 1 Tab by mouth 2 times daily for 30 days. 60 Tab 07/27/2017 08/26/2017 acetaminophen 325 mg Oral Tab Take 2 Tabs by mouth every 6 hours for 7 days. 56 Tab 07/26/2017 08/02/2017 documented in this encounter Discharge Disposition Disposition Code Departure Means Destination Home or Self [place] documented in this encounter Progress Notes * Yoanna Best, HIGH DENSITY [employer]AL[employer] COATER OPERATOR - 07/27/2017 2:55 PM EST 07/27/17 1444 PT Subjective Note Type Treatment/Progress Patient Room/Unit 6503 PT Subjective Comments #1 pt agrees to PT in [facility] Discharge Information This progress note will serve as the discharge summary if no further therapy is provided prior to the patient being discharged from the hospital. Pain Screening PT/OT Patient Currently in Pain Yes Pain Rating 2 Pain Location Hip Pain Orientation Left Pain Intervention(s) Cold applied;Repositioned;Ambulation/Increased activity Cognition Overall Cognitive Status WFL Precautions Therapy Precautions Yes Weight Bearing Status Left lower extremity;Weight bearing as tolerated Precaution info given Weight bearing;To use call light to request assistance with all mobility Observation Additional Comments pt transported to [facility] via w/c Transfers Sit to Stand Modified independent (device) Stand to Sit Modified independent (device) Gait Gait Supervision Gait Distance (Feet) 120 Feet Assistive Device 2 Wheel walker Pattern Slow eliot;Step to;Antalgic Weight Bearing Status Weight bearing as tolerated AM PAC: How much help from another person does the patient currently need... turning from your back to your side while in a flat bed without using bedrails? 4 moving from lying on your back to sitting on the side of a flat bed without using bedrails? 4 moving to and from a bed to a chair? 4 standing up from a chair using your arms (e.g. wheelchair, or bedside chair)? 4 need to walk in hospital room? 4 climbing 3-5 steps with a railing? 3 AM PAC: BASIC MOBILITY SCORING AM PAC Moblity Raw Score 23 AM PAC Mobility CMS 0-100% Functional Percentage 16.55 AM PAC Mobility CMS G Code Modifier CI Balance Sitting Balance 5/5 moves/returns trunkal midpoint in all planes > 2 inches Standing Balance 3+/5 indep, without support for 30 seconds or greater Exercise Exercise Yes Additional Comments nustep x10'; shuttle x5; therex per VANCE Guidelines; written HEP given to patient Education Education Safety with mobility;Cues for proper technique;Up with assistance only;Safe and proper technique with transfers;Safe and proper technique with gait pattern;To use call light to request assistance with all mobility Patient Safety Patient Safety (pt left in w/c awaiting transport back to room) Assessment Assessment Decreased gait;Decreased functional mobility;Decreased balance;Decreased activity tolerance Prognosis Good Progress Improving as expected;Progressing toward goals Additional Comments pt is safe for discharge from a mobility standpoint Goals Pt Will Ambulate > 200 feet;Modified independent;Partly met Pt Will Perform Home Exer Program Independently;Met Plan Treatment/Interventions Continue with current plan of care PT Frequency BID Recommendation PT Recommendation Home with family (with HEP) Time In / Time Out [id number] IP PT Evaluation Minutes 0 IP PT Treatment Minutes 40 * Leatha Avila MD - 07/27/2017 12:11 PM EST SEP Hospitalist Plan: Afebrile BP 142/88. Sat 94% on RA. Hgb 13.6. Recovering well. Continue physical therapy. Homewhen OK with Ortho. Left Total Hip Arthroplasty revision Physical Therapy ?? Hx HTN Hyzaar ?? Hx IBS ?? Disposition Home when OK with Ortho. ? Aspirin 325mg BID Leatha Avila MD Subjective: Pt Resting in bed. Pain tolerable. Objective: BP 142/88 (BP Location: Left arm, Patient Position: Semi Fowlers) Pulse 96 Temp 98.3 ??F (36.8 ??C) (Oral) Resp 16 Ht 5' 7 (1.702 m) Wt 193 lb 5 oz (87.7 kg) SpO2 94% BMI 30.28 kg/m?? I/O last 3 completed shifts: In: 1840 [P.O.:240; I.V.:1500; IV Piggyback:100] Out: 300 [Blood:300] Weight: 193 lb 5 oz (87.7 kg) General appearance: NAD HEENT: EOMI, no JVD, neck supple Cardiovascular: RRR Lungs: CTA Bilaterally ,No rales or rhonchi, Abdomen: positive bowel sounds, soft, non-tender to palpation, no pulsatile masses. Extremities: no cyanosis, clubbing. Pulses 1-2+ bilaterally in lower extremities. Trace-1+ LE edema. Skin: warm,dry. No rashes/bruising. Results: ECG: Results for orders placed during the hospital encounter of 07/17/17 EK EKG 12 LEAD Impression Stationary ECG Study [facility] Interpretive Statements SINUS RHYTHM INFERIOR AND ANTEROLATERAL ST ELEVATION - POSSIBLE EARLY REPOLARIZATION - NEED TO ALSO CONSIDER ACUTE INJURY OR PERICARDITIS NO OLD EKGS FOR COMPARISON Electronically Signed On 07-17-2017 15:39:56 EST by Thomas Heath MD Labs: Lab Results Component Value Date WBC 6.7 07/17/2017 HGB 13.6 07/27/2017 HCT 39.7 07/27/2017 MCV 92.1 07/17/2017 PLT 146 07/17/2017 No results found for: NA, K, CL, CO2, BUN, LABALBU, CREATININE, CALCIUM, GFRAFRAM, GFRNONAFRAM, GLU No results found for: ALKPHOS, ALT, AST, PROT, LABBILI, BILIDIR, IBILI, LABALBU No results found for: AMYLASE, LIPASE No results found for: CKMB, MYOGLOBIN No results found for: INR, APTT No results found for: SPECGRAV, UAPROTEIN, BLOODU, NITRITE, LEUKOCYTESUR, WBCUA, RBCUA No results found for: PH, PCO2, PO2, HCO3, TCO2, BASEEXCESS, O2SAT, INSPIREDO2, SPECIMENTYPE Radiology Results: Xr Hip Intraoperative Left 2 View Result Date: 07/26/2017 Procedure: Left hip intraoperative, 07/26/2017. INDICATION: Surgery. FINDINGS: 3 digital fluoroscopic spot images from left total hip arthroplasty procedure. Images were obtained for guidance and record keeping. Fluoroscopy time 0.1 minute. Digital spot images from left VANCE procedure. Fl < 1 Hour Result Date: 07/26/2017 Fluoroscopy was performed. The radiologist was not in attendance. No permanent images were obtained. This dictation is being made for record keeping purposes. Assessment: Active Hospital Problems Diagnosis ??? Status post left hip replacement ??? IBS (irritable bowel syndrome) ??? HTN (hypertension), malignant Resolved Hospital Problems Diagnosis No resolved problems to display. Leatha Avila MD 07/27/2017 12:11 PM * Georgette Harvey CSW - 07/27/2017 11:18 AM EST 07/27/17 1115 Final Note Actual Discharge Plan 07/27 Patient on discharge. Spoke with patient and family in the room. PT recommending home with prior support. Patient stated he is independent at home. He has a walker and is obtaining a shower chair from [facility]. Patient stated he is able to afford his meds and hasa pcp. Family to provide transportation home. No post acute care needs identified. 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 Past Med Hx HTN, bipolar, IBS, anxiety, [place], heroin abuse, pneumonia, pnuemothorax Diagnostic Testing ECG 07/17: SINUS RHYTHM INFERIOR AND ANTEROLATERAL ST ELEVATION - POSSIBLE EARLY REPOLARIZATION - NEED TO ALSO CONSIDER ACUTE INJURY OR PERICARDITIS NO OLD EKGS FOR COMPARISON Pain Screening PT/OT Patient Currently in Pain Yes Pain Rating 2 Pain Location Hip Cognition Overall Cognitive Status WFL Arousal/Alertness Appropriate responses to stimuli Memory Appears intact Orientation Level Oriented X3 Following Commands Follows all commands and directions without difficulty Precautions Therapy Precautions Yes Other precautions fall risk, WBAT Home Living/Prior Function Type of Home House Home Layout One level Number of Steps 0 Home Equipment 2 wheel walker Level of Assistance Independent with ADLs ;Independent with functional transfers;Independent with homemaking;Ambulatory in the community Lives With Son;Daughter Coord/Sensation Assessed Impaired Gross Motor Coordination Partial deficits in the RLE Observation Presentation Patient seated edge of bed LE Assessment LLE Assessment X LLE Additional Comments at least 3/5 RLE Assessment WFL Strength LLE L Hip Flexion 3/5 Bed Mobility Supine to Sit Independent Sit to Supine Independent Transfers Sit to Stand Modified independent (device) Stand to Sit Modified independent (device) Bed to/from chair Supervision Gait Gait Supervision Gait Distance (Feet) 150 Feet Assistive Device 2 Wheel walker Pattern Step to;Antalgic;Slow eliot Vitals WBAT AM PAC: How much help from another person does the patient currently need... turning from your back to your side while in a flat bed without using bedrails? 4 moving from lying on your back to sitting on the side of a flat bed without using bedrails? 4 standing up from a chair using your arms (e.g. wheelchair, or bedside chair)? 4 need to walk in hospital room? 3 climbing 3-5 steps with a railing? 3 AM PAC: BASIC MOBILITY SCORING AM PAC Moblity Raw Score 18 AM PAC Mobility CMS 0-100% Functional Percentage 40.47 AM PAC Mobility CMS G Code Modifier CK PT G-Codes Functional Assessment Tool Used [facility] Score 18 Functional Limitation Mobility: Walking and moving around Mobility: Walking and Moving Around Current Status (G8978) CK Mobility: Walking and Moving Around Goal Status (G8979) CJ Balance Sitting Balance 5/5 moves/returns trunkal midpoint in all planes > 2 inches Standing Balance 3+/5 indep, without support for 30 seconds or greater Exercise Exercise Yes Additional Comments pt ed re: progressive ambulation Supine Supine Ankle Pumps 10 Supine Quad Sets 10 Supine Glut Sets 10 Supine Heelslides 10 Education Education To use call light to request assistance with all mobility;Patient/Family Education;Role of Therapy;Safety with mobility;Cues for proper technique;Discharge planning;Up with assistance only Patient Safety Patient Safety Patient in bed with needs in reach Assessment Assessment Decreased gait;Decreased Left Lower Extremity strength Prognosis Good Rationale for Skilled Therapy Not independent with home exercise program Goals Patient and/or Family Goal To get home PT GOALS (Yes/No) Yes Add Goals Pt Will Ambulate > 200 feet;Modified independent;With 2 wheel walker Pt Will Perform Home Exer Program Independently Goal Formulation With patient Time for Goal Achievement 3 days Plan Treatment/Interventions Gait training;LE strengthening/ROM;Endurance training PT Frequency BID Recommendation PT Recommendation Home with family;Home with prior support Time In / Time Out 1010/1048 IP PT Evaluation Minutes 10 IP PT Treatment Minutes 38 * Augie Ramires MD - 07/26/2017 5:42 PM EST Images from the original note were not included. Augie Ramires MD Hip and Knee Replacement & General Orthopaedic Surgery [facility] [phone] ([phone]) Progress Note Admit Date: 07/26/2017 Subjective: Pain controled. Feeling well overall. Wants to get up and mobilize. Objective: No results found for: WBC, RBC, HGB, HCT No results found for: INR, APTT Patient Vitals for the past 8 hrs: BP Temp Temp src Pulse Resp SpO2 Height Weight 07/26/17 1659 - - - - 16 - - - 07/26/17 1632 (!) 147/98 97.7 ??F (36.5 ??C) Oral 70 16 99 % - - 07/26/17 1600 (!) 154/102 - - 69 - 98 % - - 07/26/17 1540 (!) 153/108 97.1 ??F (36.2 ??C) Oral 73 15 100 % - - 07/26/17 1515 120/87 97 ??F (36.1 ??C) Forehead 81 15 98 % - - 07/26/17 1500 (!) 127/23 - - 77 17 99 % - - 07/26/17 1445 (!) 149/103 - - - 24 99 % - - 07/26/17 1437 (!) 139/98 - - - 14 99 % - - 07/26/17 1428 - 97.4 ??F (36.3 ??C) Forehead - - - - - 07/26/17 1020 134/78 97.9 ??F (36.6 ??C) Oral 70 20 97 % 5' 7 (1.702 m) 193 lb 5 oz (87.7 kg) Procedure(s): LEFT TOTAL HIP ARTHROPLASTY- REVISION-ANTERIOR (Left) Patient is in no acute distress. Alert and Oriented x3. Cooperative with exam. Operative/injured extremity: Grossly neurovascular intact with normal sensations: over dorsal and plantar foot Warm/perfused distally, brisk capillary refill. Palpable distal pulses. Can dorsiflex and plantar flex ankle and toes. Dressings in place, clean and dry. Negative Homans sign. Soft compartments. No signs or symptoms of DVT/PE. Assessment and Plan: Zuhair Whitlock is a(n)51 y.o. male admitted for work-up and treatment for Other mechanical complication of internal left hip prosthesis, initial encounter ([facility]) [T84.091A] Other mechanical complication of internal left hip prosthesis, initial encounter ([facility]) [T84.091A]. 51 y.o. male POD# 0 from Revision VANCE Plan: WBAT PT for mobility Up to chair/ambulate with assist H/H currently stable Reinforce dressings as needed SCDs while in bed DVT prophylaxis as per pre-operative plan Dispo: To home in the care of family, per patient request, tomorrow as planned. Patient, surgeon, and family agree, and requesting this plan. Augie Ramires MD documented in this encounter H&P Notes * Linda Gupta MD - 07/26/2017 10:32 AM EST H&P Update History & Physical Reviewed Additional Findings: Pt seen and examined. Lungs w/ faint exp wheeze that improved w/ cough. He used his albuterol MDI this morning. This update is in reference to H&P performed by Dr. Wiley.. Source Note - Ligia Wiley MD - 07/11/2017 9:00 AM EST Pre-Op physical: Zuhair, a 51 y.o. year old male presents today for a pre-operative consultation at the request of Dr. Ramires for medical clearance for Left total hip surgery. Date of surgery: 07/26/17 Procedure: Left total hip arthroplasty-revision Surgeon name/location: Dr. Marcio Ramires H&P to be faxed to [phone] or available in [employer] for procedures performed at a [facility]. Recent illnesses: none. Prior surgeries requiring anesthesia? yes Prior complications from surgery or significant reactions anesthesia? yes, had an infection post surgery in 2008 Family history of issues with anesthesia? no Uncontrolled blood pressure? no Recent chest pain or shortness of breath with exertion? no Are you able to complete moderately vigorous activities such as climbing steps or mowing the lawn without chest pain or shortness of breath? yes Have you had recent cardiac procedures such as stent placement or bypass surgery? no Any history of blood clots? no Are you on an aspirin, anti-inflammatory, or blood thinner on a daily or regular basis? no Review of Systems Constitutional: Negative for fever. HENT: Negative for congestion, rhinorrhea and sinus pressure. Respiratory: Negative for cough, chest tightness and shortness of breath. Cardiovascular: Negative for chest pain. Gastrointestinal: Negative for abdominal pain, constipation, diarrhea, nausea and vomiting. Endocrine: Negative for polydipsia, polyphagia and polyuria. Genitourinary: Negative for dysuria. Musculoskeletal: Negative for back pain. Skin: Negative for rash. Neurological: Negative for dizziness, seizures, light-headedness and headaches. Psychiatric/Behavioral: Negative for sleep disturbance. Past Medical History: Diagnosis Date ??? Arthritis ??? Asthma 06/02/2010 ??? Bipolar affective (HCC) ??? Blood transfusion ??? EPHRAIM (generalized anxiety disorder) ??? Heart attack ??? Heroin abuse Quit August ??? Hypertension ??? IBS (irritable bowel syndrome) ??? Opiate dependence (HCC) Remission x 5 years ??? Pneumonia ??? Pneumothorax has a past surgical history that includes joint replacement; eye surgery; hernia repair; knee surgery; Elbow surgery; fracture surgery; and Total hip arthroplasty (Left, 2009). family history includes Cancer (age of onset: 40) in his father; Diabetes in his mother; Heart Disease in his mother; High Blood Pressure in his mother; High Cholesterol in his mother. Social History Social History ??? Marital status: Spouse name: N/A ??? Number of children: N/A ??? Years of education: N/A Social History Main Topics ??? Smoking status: Never Smoker ??? Smokeless tobacco: Current User Types: Snuff ??? Alcohol use No ??? Drug use: Unknown ??? Sexual activity: Not Asked Other Topics Concern ??? None Social History Narrative ??? None Allergies Allergen Reactions ??? Abilify [Aripiprazole] Other (See Comments) convulsions ??? Morphine Other (See Comments) Mood swings ??? Nsaids (Non-Steroidal Anti-Inflammatory Drug) ??? Unable To Assess Patient does not take any narcotic medications Current Outpatient Prescriptions on File Prior to Visit Medication Sig Dispense Refill ??? ADVAIR DISKUS 500-50 mcg/dose Inhl Disk with Device INHALE 1 PUFF BY MOUTH 2 TIMES A DAY 120 Each 2 ??? albuterol (PROVENTIL) 5 mg/mL Inhl Solution for Nebulization Take 5 mg/hr by nebulization continuous. 40 mL 2 ??? CIALIS 5 mg Oral Tablet TAKE 1 TABLET BY MOUTH NEEDED FOR ERECTILE DYSFUNCTION 90 Tab 0 ??? losartan-hydrochlorothiazide (HYZAAR) 50-12.5 mg Oral Tablet TAKE 1 TAB BY MOUTH DAILY. 90 Tab 2 ??? metroNIDAZOLE (METROGEL) 0.75 % Top Gel Apply topically 2 times daily. 70 g 0 ??? Nebulizer Accessories (ALL FLOW 4000 KIT) Misc Formulary equivalent 1 Each 0 ??? Nebulizers (SANG BABY NEBULIZER) Misc Formulary equivalent 1 Each 0 ??? VENTOLIN HFA 90 mcg/actuation Inhl HFA Aerosol Inhaler USE 1 OR 2 PUFFS EVERY 4 HOURS NEEDEDFOR WHEEZING. 54 Inhaler 2 ??? VIBERZI 100 mg Oral Tablet TAKE 1 TABLET BY MOUTH TWICE A DAY 60 Tab 0 No current facility-administered medications on file prior to visit. Objective: Vitals: 07/11/17 0914 BP: 128/80 Pulse: 86 Temp: 98 ??F (36.7 ??C) SpO2: 98% Physical Exam Constitutional: He appears well-developed and well-nourished. No distress. HENT: Head: Normocephalic and atraumatic. Right Ear: External ear normal. Left Ear: External ear normal. Eyes: Conjunctivae and EOM are normal. Pupils are equal, round, and reactive to light. Neck: Normal range of motion. Neck supple. No thyromegaly present. Cardiovascular: Normal rate, regular rhythm and normal heart sounds. Exam reveals no friction rub. No murmur heard. Pulmonary/Chest: Effort normal and breath sounds normal. He has no wheezes. Abdominal: Soft. He exhibits no distension. There is no tenderness. Musculoskeletal: Normal range of motion. Neurological: He is alert. No cranial nerve deficit. Skin: Skin is warm and dry. No rash noted. Psychiatric: He has a normal mood and affect. His behavior is normal. Pertinent results from today's visit: No results found for this visit on 07/11/17. Lab Results Component Value Date WBC 6.6 05/09/2017 HGB 15.4 05/09/2017 HCT 44.5 05/09/2017 MCV 93.8 05/09/2017 PLT 188 05/09/2017 No results found for: GLU, CALCIUM, LABALBU, PROT, NA, K, CO2, CL, BUN, CREATININE, ALT, AST Revised Jimenez Cardiac Risk Index 1. High risk surgical procedures (intraperitoneal, intrathoracic, suprainguinal vascular) No 2. History of ischemic heart disease (history of myocardial infarction, history of positive exercise test, current complaint of chest pain considered to be due to ischemia, use of nitrate therapy, EKG with pathological Q waves) No 3. History of congestive heart failure (history of congestive heart failure, pulmonary edema, paroxysmal nocturnal dyspnea, bilateral rales or S3 gallop) No 4: History of cerebrovascular disease (history of transient ischemic attack or stroke) No 5. Preoperative treatment with insulin No 6. Preoperative serum creatinine >2.0 mg/dl No Each risk Factor is assigned one point. Total Points 0 Points Class Risk of Major cardiac event 0 I 0.4% 1 II 0.9% 2 III 6.6% 3 or more IV 11% Major cardiac event includes myocardial infarction, pulmonary edema, ventricular fibrillation, primary cardiac arrest and complete heart block. There are no diagnoses linked to this encounter. Mr. Whitlock is at average risk for the proposed surgery. Recommendation: There are no contraindications to surgery . Thank you for allowing us to participate in the pre-operative care of Zuhair. Based on the evaluation in today's consultation he is medically cleared for the above procedure. Sincerely, Ligia Wiley MD documented in this encounter Procedure Notes * Augie Ramires MD - 07/26/2017 1:57 PM EST Images from the original note were not included. 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 ESTIMATED BLOOD LOSS: 200mL IMPLANTS: Implant Name Type Inv. Item Serial No. Manager Qa Lot No. LRB No. Used 40 mm acetabular liner [id number] Left 1 MODULAR FEMORAL HEAD [id number] Left 1 TITANIUM MODULAR HEAD SLEEVE [id number] Left 1 COMPLICATIONS: None INDICATIONS: The patient is a 51 y.o. male who presented with a painful his Left hip. Work up showed evidence of metallosis and elevated cobalt and chromium levels. The patient presents now for surgical intervention. The risks and benefits of surgery as well as conservative alternatives were discussed at length prior to the procedure. Voiced understanding, in general there are no guarantees that surgery will improve, and could possibly be worsened after surgery. Despite the risks involved and despite the lack of guarantee that they would be made better by surgery, they would still like to proceed. Questions were elicited and answered fully to their satisfaction. Again, no guarantees were expressed nor implied. RISKS OF SURGERY: An extensive conversation was held with the patient and/or family regarding the risks, benefits, potential complication and reasonable expectations of the planned procedure. Informed verbal consent was given under no distress. We had ample opportunities for questions regarding the usual outcomes. Risks specifically discussed, but not limited to the following, include possible: bleeding, infection, damage to blood vessels and/ornerves, blood clots, anesthesia complications, loss of reduction (iffracture), re-tear or re-injury (if ligament/tendon fixed), hardware breakage or failure (if used),need for additional surgery, and post-operative stiffness, looseness, leg length discrepancy, and dislocation (where applicable). In addition, in rare cases the patient may have loss of a limb or even . No guarantee of any particular results were given. The patient voiced understanding that insome cases surgery can make them worse. In spite of this, the patient and/or family desired that we proceed with the operation and expressed clear understanding of these risks. DETAILS OF PROCEDURE: The patient was given the appropriate preoperative antibiotics, brought into the operating room, and placed in the supine position on the traction table. The operative extremitywas prepped and draped in the standard sterile fashion. A timeout was performed in which the appropriate side, site, procedure, patient, and implants were confirmed. After making sure the antibioticswere administered, I made a standard 10 cm incision 1 cm lateral and distal to the ASIS towards thelateral knee, in line with the previous incision. I divided the subcutaneous tissues in line with the incision, and incised the fascia sharply. I identified the fascia of the TFL and incised this sharply. Once I had opened this up, I dissected the interval between it and the sartorius, I ??identified the lateral circumflex vessels which were coagulated using electrocautery and/or bipolar as applicable. I also released them, as well as releasing the no-name fascia. Once these were done, I made acapsulotomy along the femoral neck, and cleaned the synovial tissue, taking care to release distal on the femur, medially, and preserving the indirect head of the rectus femoris. I put retractors on either side of the??femoral neck and removed the remaining capsular tissue, circumferentially aroundthe cup. ?? At this time, I dislocated the hip, and removed the femoral head with a bone tamp and mallet. The trunnion was clean and dry. No trunnionosis noted. The head was removed, and the rim cleaned. Using an osteotome and mallet, the metal liner was removed. There was periarticular necrotic tissue noted. This was moderate. The abductors were intact. Screws were stable. The cup was not obviously loose. Once the liner was in place, I went ahead and turned to the femur. I inspected the stem, and found no evidence of loosening. It was well fixed. I did place the trials, and close reduced the hip. It was stable through a range of motion. I took x-rays of hips and overlayed the films, using the light box. ?? At this point, I felt that our length and offset was within a few millimeters or so. At this point,I came back in and carefully dislocated the hip. It was very stable. I then went ahead and put the real 20 degree posterior liner, 40mm poly liner in place. Secure. The 40mm neutral, with sleeve and Zirconia head was placed on a clean, dry taper. I reduced it and it remained stable through range ofmotion. Once again, I took x-rays as described. I felt this was very good fixation, good alignment,and good stability, as well as recreation of the offset and leg length. I copiously irrigated with sterile saline. I achieved hemostasis using electrocautery and then closed the fascia of the tensor fascia pastor with a running locking suture, and closed the rest in the usual layered fashion. The patient tolerated the procedure well. ?? At the end of the procedure the instrument count was correct. There were no complications. Transferred stable to the PACU. ?? POSTOPERATIVE COURSE: Weight bearing as tolerated, with an assistive device. PT for mobility. DVT and Antibiotic prophylaxis. Follow up in 1-2 weeks for wound check and X-Ray of the pelvis and operative hip. ?? Augie Ramires MD ?? * Augie Ramires MD - 07/26/2017 1:56 PM EST [facility] OPERATIVE/PROCEDURE NOTE Zuhair Whitlock July 26, 2017 Body mass index is 30.28 kg/m??. 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 Needed for recduction, limb manipulation, tissue retraction,and wound closure as indicated. ANESTHESIA: General and Field Block SPECIMENS: ID Type Source Tests Collected by Time Destination 1 : Left Hip Explants Lockmaker Hip, Left PATHOLOGY TISSUE REQUEST Augie Ramires MD 07/26/2017 1226 ESTIMATED BLOOD LOSS: 200 ml from 07/26/2017 11:49 AM to 07/26/2017 1:56 PM FINDINGS: See dictation OTHER INFO: Stable to PACU DISPOSITION/POST PROC COURSE: Stable to PACU Augie Ramires MD Date: 07/26/2017 documented in this encounter Consult Notes * Leatha Avila MD - 07/26/2017 3:10 PM ESTAssociated Order(s): IP CONSULT TO HOSPITALIST [facility] History and Physical Name: Zuhair Whitlock ADDRESS: [address] [place] [address] : 1965 AGE: 51 y.o. Admitting Physician: Leatha Avila MD Date of Admit: 07/26/2017 Chief Complaint: Failed left total hip arthroplasty History of Present Illness: Patient is a 51 year old male with a past medical history significant for CAD/HTN/IBS/Asthma who presents to [facility] for revision of his left total hip arthroplasty. He has underwent the procedure and isrecovering well. No Chest pains. No shortness of breath. Recovering well except for mildly elevatedBP. Past Medical History: Diagnosis Date ??? Arthritis [...] leg, after accident ??? HERNIA REPAIR ??? JOINT REPLACEMENT left hip ??? KNEE SURGERY both ??? TOTAL HIP ARTHROPLASTY Left 2009 Prescriptions Prior to Admission Medication Sig Dispense Refill Last Dose ??? ADVAIR DISKUS 500-50 mcg/dose Inhl Disk with Device INHALE 1 PUFF BY MOUTH 2 TIMES A DAY 120 Each 2 07/25/2017 at 2200 ??? albuterol (PROVENTIL) 5 mg/mL Inhl Solution for Nebulization Take 5 mg/hr by nebulization continuous. 40 mL 2 month ago ??? CIALIS 5 mg Oral Tablet TAKE 1 TABLET BY MOUTH NEEDED FOR ERECTILE DYSFUNCTION 90 Tab 0 07/25/2017 at 600 ??? eluxadoline (VIBERZI) 100 mg Oral Tablet Take 1 Tab by mouth 2 times daily. 60 Tab 0 07/25/2017 at 1900 ??? losartan-hydrochlorothiazide (HYZAAR) 50-12.5 mg Oral Tablet TAKE 1 TAB BY MOUTH DAILY. 90 Tab 2 07/25/2017 at 600 ??? metroNIDAZOLE (METROGEL) 0.75 % Top Gel Apply topically 2 times daily. 70 g 0 month ago ??? Nebulizer Accessories (ALL FLOW 4000 KIT) Misc Formulary equivalent 1 Each 0 Not Taking at Unknown time ??? Nebulizers (SANG BABY NEBULIZER) Misc Formulary equivalent (Patient not taking: Reported on 07/14/2017) 1 Each 0 Not Taking at Unknown time ??? VENTOLIN HFA 90 mcg/actuation Inhl HFA Aerosol Inhaler USE 1 OR 2 PUFFS EVERY 4 HOURS NEEDEDFOR WHEEZING. 54 Inhaler 2 07/26/2017 at 1020 Allergies Allergen Reactions ??? Abilify [Aripiprazole] Other (See Comments) convulsions ??? Morphine Other (See Comments) Mood swings ??? Nsaids (Non-Steroidal Anti-Inflammatory Drug) Other (See Comments) ''bothers stomach'' ??? Unable To Assess Patient does not take any narcotic medications Social History Social History ??? Marital status: Spouse name: N/A ??? Number of children: N/A ??? Years of education: N/A Social History Main Topics ??? Smoking status: Never Smoker ??? Smokeless tobacco: Current User Types: Snuff ??? Alcohol use No ??? Drug use: Unknown ??? Sexual activity: Not Asked Other Topics Concern ??? None Social History Narrative ??? None Family history reviewed and non-contributory. Family History Problem Relation Age of Onset ??? Diabetes Mother ??? Heart Disease Mother ??? High Blood Pressure Mother ??? High Cholesterol Mother ??? Cancer Father 40 stomach Review of Systems: The listed systems were reviewed and reveal the following in addition to any already discussed in the HPI: ?? Constitutional: No fever, chills, - ?? Eyes: No visual disturbance ?? HEENT: No headache, hearing loss, - ?? Lungs: No SOB, cough, hemoptysis, or pleuritic chest pain ?? Cardiovascular: No chest pain, PND or orthopnea ?? Endocrine: No polyuria, ?? GI: No abdominal pain, nausea, vomiting, hematemesis, diarrhea, constipation, melena, hematochezia, or bright red blood per rectum ?? : No dysuria, frequency, hesitancy, or hematuria ?? Musculoskeletal: No myalgias or muscle weakness ?? Neurologic: No focal numbness or weakness ?? Skin: No edema, jaundice, or skin discoloration ?? Psychiatric: No depression, ?? Hematologic/Allergic: No history of bleeding or easy bruising OBJECTIVE: Physical Exam: Patient Vitals for the past 24 hrs: BP Temp Temp src Pulse Resp SpO2 Height Weight 07/26/17 1659 - - - - 16 - - - 07/26/17 1632 (!) 147/98 97.7 ??F (36.5 ??C) Oral 70 16 99 % - - 07/26/17 1600 (!) 154/102 - - 69 - 98 % - - 07/26/17 1540 (!) 153/108 97.1 ??F (36.2 ??C) Oral 73 15 100 % - - 07/26/17 1515 120/87 97 ??F (36.1 ??C) Forehead 81 15 98 % - - 07/26/17 1500 (!) 127/23 - - 77 17 99 % - - 07/26/17 1445 (!) 149/103 - - - 24 99 % - - 07/26/17 1437 (!) 139/98 - - - 14 99 % - - 07/26/17 1428 - 97.4 ??F (36.3 ??C) Forehead - - - - - 07/26/17 1020 134/78 97.9 ??F (36.6 ??C) Oral 70 20 97 % 5' 7 (1.702 m) 193 lb 5 oz (87.7 kg) Weight: 193 lb 5 oz (87.7 kg) ?? General: Well developed,well nourished. ?? Skin: warm,dry ?? Head: atraumatic,normocephalic,symmetrical. ?? HEENT: PERRLA, EOMI, No purulent drainage,non-icteric sclera ?? Neck: Supple,no JVD ?? Lungs: CTA Bilaterally, no wheeze, rales, or rhonchi. ?? Cardiac: RRR, no MGR ?? Abdomen: positive bowel sounds, soft, non-tender, no hepatosplenomegaly. No pulsatile masses. ?? Musculoskeletal/Ext: Pulses 1-2+ bilaterally in upper and lower extremities. Trace-1+ LE edema. ?? Neurological: alert, oriented x3,no focal motor or sensory deficits ?? Skin warm, dry Labs: CBC: No results found for: WBC, RBC, HGB, HCT, MCV, MCHC, RDW, MPV BMP:No results found for: NA, K, CL, CO2, BUN, LABALBU, CREATININE, CALCIUM, GFRAFRAM, GFRNONAFRAM,GLU Hepatic: No results found for: ALKPHOS, ALT, AST, PROT, LABBILI, BILIDIR, IBILI, LABALBU No results found for: AMYLASE, LIPASE U/A:No results found for: SPECGRAV, UAPROTEIN, BLOODU, NITRITE, LEUKOCYTESUR, WBCUA, RBCUA Coagulation: No results found for: INR, APTT Cardiac markers: No results found for: CKMB, MYOGLOBIN ABGs:No results found for: PH, PCO2, PO2, HCO3, TCO2, BASEEXCESS, O2SAT, INSPIREDO2, SPECIMENTYPE Radiology: Xr Hip Intraoperative Left 2 View Result Date: 07/26/2017 Procedure: Left hip intraoperative, 07/26/2017. INDICATION: Surgery. FINDINGS: 3 digital fluoroscopic spot images from left total hip arthroplasty procedure. Images were obtained for guidance and record keeping. Fluoroscopy time 0.1 minute. Digital spot images from left VANCE procedure. Fl < 1 Hour Result Date: 07/26/2017 Fluoroscopy was performed. The radiologist was not in attendance. No permanent images were obtained. This dictation is being made for record keeping purposes. Results for orders placed during the hospital encounter of 07/17/17 EK EKG 12 LEAD Impression Stationary ECG Study [facility] Interpretive Statements SINUS RHYTHM INFERIOR AND ANTEROLATERAL ST ELEVATION - POSSIBLE EARLY REPOLARIZATION - NEED TO ALSO CONSIDER ACUTE INJURY OR PERICARDITIS NO OLD EKGS FOR COMPARISON Electronically Signed On 07-17-2017 15:39:56 EST by Thomas Heath MD All Labs/Radiology tests/EKG's/Cardiac Testing reviewed. Assessment / Plan: Active Hospital Problems Diagnosis ??? *Status post left hip replacement ??? IBS (irritable bowel syndrome) ??? HTN (hypertension), malignant Left Total Hip Arthroplasty revision Physical Therapy Hx HTN Hyzaar Hx IBS Disposition Home when OK with Ortho. Aspirin 325mg BID Leatha Avila MD 07/26/2017 5:24 PM documented in this encounter Nursing Notes * Paris Stephenson, Clerical Staff - 07/19/2017 9:42 AM EST H&P in [facility] 07/11 PCP Left message on [employer]'s voice mail regarding antibiotic order and office note Scanned office note into epic 07/17 documented in this encounter Miscellaneous Notes * Utilization Review Notes - Radha Villavicencio RN - 07/27/2017 9:15 AM EST IP ORDER IN [facility]. CAME TO [facility] FLOOR FROM PACU. SP 07/26/17LEFT TOTAL HIP ARTHROPLASTY- REVISION-ANTERIOR IP TO MS. PT EVAL. COLD THERAPY. IS Q2H, WBAT , A BOOTS. IV 100ML/HR, ASA 325MG PO BID,ANCEF IV Q8H, TORADOL IV QID,TYLENOL 650MG PO QID, ROBAXIN IV TID, DCPLAN- AWAITING PT EVAL FOR D CPLAN documented in this encounter Plan of Treatment Upcoming Encounters Date Type Department Care Team (Late st Contact Info) Description 06/28/2024 9:40 AM EST Clinical Support [facility] [address] [place] [phone] 11/19/2024 1:40 PM EDT Office Visit [facility] Neurology [facility] [address] [place] [phone] Osman Lyndsay Lynn, DO [address] [place] [address] documented as of this encounter [...] Priority Date/Time Associated Diagnosis Comments SCANNED EKG 07/28/2017 3:53 PM EST HEMOGLOBIN AND HEMATOCRIT Early AM 07/27/2017 8:00 AM EST IP CONSULT TO HOSPITALIST Routine 07/26/2017 3:03 PM EST Procedure Note - Leatha Avila MD - 07/26/2017 3:10 PM ESTThis note is in progress. [facility] History and Physical Name: Zuhair Whitlock ADDRESS: [address] [place] [address] : 1965 AGE: 51 y.o. Admitting Physician: Leatha Avila MD Date of Admit: 07/26/2017 Chief Complaint: Failed left total hip arthroplasty History of Present Illness: Patient is a 51 year old male with a past medical history significant forCAD/HTN/IBS/Asthma who presents to [facility] for revision of his left total hiparthroplasty. He has underwent the procedure and is recovering well. NoChest pains. No shortness of breath. Recovering well except for mildlyelevated BP. Past Medical History: Diagnosis Date ? ? Arthritis ? ? Asthma 06/02/2010 ? ? Bipolar affective (HCC) ? ? Blood transfusion ? ? EPHRAIM (generalized anxiety disorder) ? ? Heart attack ? ? Heroin abuse Quit August ? ? Hypertension ? ? IBS (irritable bowel syndrome) ? ? Opiate dependence (HCC) Remission x 5 years ? ? Pneumonia ? ? Pneumothorax Past Surgical History: Procedure Laterality Date ? ? ELBOW SURGERY ? ? EYE SURGERY ? ? FRACTURE SURGERY left leg, after accident ? ? HERNIA REPAIR ? ? JOINT REPLACEMENT left hip ? ? KNEE SURGERY both ? ? TOTAL HIP ARTHROPLASTY Left 2009 Prescriptions Prior to Admission Medication Sig Dispense Refill Last Dose ? ? ADVAIR DISKUS 500-50 mcg/dose Inhl Disk with Device INHALE 1 PUFF BYMOUTH 2 TIMES A DAY 120 Each 2 07/25/2017 at 2200 ? ? albuterol (PROVENTIL) 5 mg/mL Inhl Solution for Nebulization Take 5mg/hr by nebulization continuous. 40 mL 2 month ago ? ? CIALIS 5 mg Oral Tablet TAKE 1 TABLET BY MOUTH NEEDED FOR ERECTILEDYSFUNCTION 90 Tab 0 07/25/2017 at 600 ? ? eluxadoline (VIBERZI) 100 mg Oral Tablet Take 1 Tab by mouth 2 timesdaily. 60 Tab 0 07/25/2017 at 1900 ? ? losartan-hydrochlorothiazide (HYZAAR) 50-12.5 mg Oral Tablet TAKE 1 TABBY MOUTH DAILY. 90 Tab 2 07/25/2017 at 600 ? ? metroNIDAZOLE (METROGEL) 0.75 % Top Gel Apply topically 2 times daily.70 g 0 month ago ? ? Nebulizer Accessories (ALL FLOW 4000 KIT) Misc Formulary equivalent 1Each 0 Not Taking at Unknown time ? ? Nebulizers (SANG BABY NEBULIZER) Misc Formulary equivalent (Patient nottaking: Reported on 07/14/2017) 1 Each 0 Not Taking at Unknown time ? ? VENTOLIN HFA 90 mcg/actuation Inhl HFA Aerosol Inhaler USE 1 OR 2 PUFFSEVERY 4 HOURS NEEDED FOR WHEEZING. 54 Inhaler 2 07/26/2017 at 1020 Allergies Allergen Reactions ? ? Abilify [Aripiprazole] Other (See Comments) convulsions ? ? Morphine Other (See Comments) Mood swings ? ? Nsaids (Non-Steroidal Anti-Inflammatory Drug) Other (See Comments) ''bothers stomach'' ? ? Unable To Assess Patient does not take any narcotic medications Social History Social History ? ? Marital status: Spouse name: N/A ? ? Number of children: N/A ? ? Years of education: N/A Social History Main Topics ? ? Smoking status: Never Smoker ? ? Smokeless tobacco: Current User Types: Snuff ? ? Alcohol use No ? ? Drug use: Unknown ? ? Sexual activity: Not Asked Other Topics Concern ? ? None Social History Narrative ? ? None Family history reviewed and non-contributory. Family History Problem Relation Age of Onset ? ? Diabetes Mother ? ? Heart Disease Mother ? ? High Blood Pressure Mother ? ? High Cholesterol Mother ? ? Cancer Father 40 stomach Review of Systems: The listed systems were reviewed and reveal thefollowing in addition to any already discussed in the HPI: ?? Constitutional: No fever, chills, - ?? Eyes: No visual disturbance ?? HEENT: No headache, hearing loss, - ?? Lungs: No SOB, cough, hemoptysis, or pleuritic chest pain ?? Cardiovascular: No chest pain, PND or orthopnea ?? Endocrine: No polyuria, ?? GI: No abdominal pain, nausea, vomiting, hematemesis, diarrhea,constipation, melena, hematochezia, or bright red blood per rectum ?? : No dysuria, frequency, hesitancy, or hematuria ?? Musculoskeletal: No myalgias or muscle weakness ?? Neurologic: No focal numbness or weakness ?? Skin: No edema, jaundice, or skin discoloration ?? Psychiatric: No depression, ?? Hematologic/Allergic: No history of bleeding or easy bruising OBJECTIVE: Physical Exam: Patient Vitals for the past 24 hrs: BP Temp Temp src Pulse Resp SpO2 Height Weight 07/26/17 1659 - - - - 16 - - - 07/26/17 1632 (!) 147/98 97.7 ??F (36.5 ??C) Oral 70 16 99 % - - 07/26/17 1600 (!) 154/102 - - 69 - 98 % - - 07/26/17 1540 (!) 153/108 97.1 ??F (36.2 ??C) Oral 73 15 100 % - - 07/26/17 1515 120/87 97 ??F (36.1 ??C) Forehead 81 15 98 % - - 07/26/17 1500 (!) 127/23 - - 77 17 99 % - - 07/26/17 1445 (!) 149/103 - - - 24 99 % - - 07/26/17 1437 (!) 139/98 - - - 14 99 % - - 07/26/17 1428 - 97.4 ??F (36.3 ??C) Forehead - - - - - 07/26/17 1020 134/78 97.9 ??F (36.6 ??C) Oral 70 20 97 % 5' 7 (1.702 m) 193lb 5 oz (87.7 kg) Weight: 193 lb 5 oz (87.7 kg) ?? General: Well developed,well nourished. ?? Skin: warm,dry ?? Head: atraumatic,normocephalic,symmetrical. ?? HEENT: PERRLA, EOMI, No purulent drainage,non-icteric sclera ?? Neck: Supple,no JVD ?? Lungs: CTA Bilaterally, no wheeze, rales, or rhonchi. ?? Cardiac: RRR, no MGR ?? Abdomen: positive bowel sounds, soft, non-tender, no hepatosplenomegaly.No pulsatile masses. ?? Musculoskeletal/Ext: Pulses 1-2+ bilaterally in upper and lowerextremities. Trace-1+ LE edema. ?? Neurological: alert, oriented x3,no focal motor or sensory deficits ?? Skin warm, dry Labs: CBC: No results found for: WBC, RBC, HGB, HCT, MCV, MCHC, RDW, MPV BMP:No results found for: NA, K, CL, CO2, BUN, LABALBU, CREATININE,CALCIUM, GFRAFRAM, GFRNONAFRAM, GLU Hepatic: No results found for: ALKPHOS, ALT, AST, PROT, LABBILI, BILIDIR,IBILI, LABALBU No results found for: AMYLASE, LIPASE U/A:No results found for: SPECGRAV, UAPROTEIN, BLOODU, NITRITE,LEUKOCYTESUR, WBCUA, RBCUA Coagulation: No results found for: INR, APTT Cardiac markers: No results found for: CKMB, MYOGLOBIN ABGs:No results found for: PH, PCO2, PO2, HCO3, TCO2, BASEEXCESS, O2SAT,INSPIREDO2, SPECIMENTYPE Radiology: Xr Hip Intraoperative Left 2 View Result Date: 07/26/2017 Procedure: Left hip intraoperative, 07/26/2017. INDICATION: Surgery.FINDINGS: 3 digital fluoroscopic spot images from left total hiparthroplasty procedure. Images were obtained for guidance and recordkeeping. Fluoroscopy time 0.1 minute. Digital spot images from left VANCE procedure. Fl < 1 Hour Result Date: 07/26/2017 Fluoroscopy was performed. The radiologist was not in attendance. Nopermanent images were obtained. This dictation is being made for recordkeeping purposes. Results for orders placed during the hospital encounter of 07/17/17 EK EKG 12 LEAD Impression Stationary [place] Interpretive Statements SINUS RHYTHM INFERIOR AND ANTEROLATERAL ST ELEVATION - POSSIBLE EARLY REPOLARIZATION- NEED TO ALSO CONSIDER ACUTE INJURY OR PERICARDITIS NO OLD EKGS FOR COMPARISON Electronically Signed On 07-17-2017 15:39:56 EST by Thomas Heath MD All Labs/Radiology tests/EKG's/Cardiac Testing reviewed. Assessment / Plan: Active Hospital Problems Diagnosis ? ? *Status post left hip replacement ? ? IBS (irritable bowel syndrome) ? ? HTN (hypertension), malignant Left Total Hip Arthroplasty revision Physical Therapy Hx HTN Hyzaar Hx IBS Disposition Home when OK with Ortho. Aspirin 325mg BID K. Manohar Avila MD 07/26/2017 5:24 PM [place] < 1 [facility] 07/26/2017 2:10 PM EST XR HIP INTRAOPERATIVE LEFT 2 [facility] 07/26/2017 2:09 PM EST PATHOLOGY TISSUE REQUEST Routine 07/26/2017 12:26 PM EST Other mechanical complication of internal left hip prosthesis, initial encounter (HCC) TOTAL HIP ARTHROPLASTY/REPLAC EMENT-ANTERIOR OR REVISION ANTERIOR (CRISTINA/MONO) 07/26/2017 11:49 AM EST Other mechanical complication of internal left hip prosthesis, initial encounter (HCC) Special Needs SIRIA TABLE, LARGEST C-ARM, [place] AND NEPHEW HEAD AND LINER, POSSIBLE CUP EXCHANGESMITH AND NEPHEW NOTIFIED 07/20 MAS documented in this encounter Results * SCANNED EKG (07/28/2017 3:53 PM EST) Anatomical Region Laterality Modality Other 07/28/2017 3:53 PM EST us Unknown Unknown IMG ECG ORDERABLES Final Result * HEMOGLOBIN AND HEMATOCRIT (07/27/2017 8:00 AM EST) Hgb 13.6 13.5 - 17.1 gm/dL 07/27/2017 8:19 AM EST [facility] Hct 39.7 38.9 - 51.6 % 07/27/2017 8:19 AM EST [facility] Blood VENOUS BLOOD / Unknown Venipuncture / Unknown 07/27/2017 8:00 AM EST 07/27/2017 8:09 AM EST us Thao Hardin DISASTER RESPONSE DIRECTOR HEMATOLOGY ORDERABLES F inal Result Performing Organization Address City/[facility]/ZIP Co de Phone Number [facility] [address] [place] [address] * FL < 1 HOUR (07/26/2017 2:10 PM EST) Narrative PACS - 07/26/2017 2:11 PM EST Fluoroscopy was performed. The radiologist was not in attendance. No permanent images were obtained. This dictation is being made for record keeping purposes. us Augie Ramires MD IMG FLUOROSCOPY DENVER FAJARDO Final Result Performing Organization Address City [facility]/ZIP Co de Phone Number PACS * XR HIP INTRAOPERATIVE LEFT 2 VIEW (07/26/2017 2:09 PM EST) Anatomical Region Laterality Modality Hip Radiographic Pauly ging 07/26/2017 2:09 PM EST Impressions 07/26/2017 2:13 PM EST Digital spot images from left VANCE procedure. Narrative 07/26/2017 2:13 PM EST Procedure: Left hip intraoperative, 07/26/2017. INDICATION: Surgery. FINDINGS: 3 digital fluoroscopic spot images from left total hip arthroplasty procedure. Images were obtained for guidance and record keeping. Fluoroscopy time 0.1 minute. Procedure Note Andrews Muro MD - 07/26/2017 Procedure: Left hip intraoperative, 07/26/2017. INDICATION: Surgery. FINDINGS: 3 digital fluoroscopic spot images from left total hiparthroplasty procedure. Images were obtained for guidance and record keeping.Fluoroscopy time 0.1 minute. IMPRESSION: Digital spot images from left VANCE procedure. us Augie Ramires MD IMG DIAGNOSTIC IMAGI NG ORDERABLES Final Result * PATHOLOGY TISSUE REQUEST (07/26/2017 12:26 PM EST) CASE REPORT Surgical Pathology ?Case: [id number] ? Authorizing Provider: ??Augie Ramires MD ?Collected: ? 07/26/2017 1226 ? Ordering Location: ? [facility] ?Received: ?07/26/2017 1703 ? Pathologist: ? Nadya Aldrich MD ? Specimen: ?Hip, Left, Left Hip Explants ? 07/28/2017 8:46 AM EST [facility] FINAL DIAGNOSIS Left hip explant, removal: - Gross examination only. 07/28/2017 8:46 AM EST [facility] S DESCRIPTION Received in formalin and labeled with the patient? s name and designated ? left hip explant? are two portions of surgical hardware as follows: Shiny beasley metal cup, 5.2 cm in diameter x 2.6 cm deep, identified ? [id number] [id number]? ; and a shiny, beasley metal partial sphere, 4.7 cm in diameter x 3.4 cm, identified ? [id number]? . Gross dictation only. /CDM 07/28/2017 8:46 AM EST [facility] MICROSCOPIC DESCRIPTION Microscopic examination is performed and the findings corroborate the diagnosis. 07/28/2017 8:46 AM EST [facility] FLOW CYTOMETRY SUMMARY 07/28/2017 8:46 AM EST [facility] EMBEDDED IMAGES 07/28/2017 8:46 AM EST [facility] Lockmaker LEFT HIP REGION STRUCTURE / Unknown 07/26/2017 12:26 PM EST 07/26/2017 5:03 PM EST Comment:Documentary only us Augie Ramires MD PATHOLOGY ORDERABLES Final Result Performing Organization Address City/State/[facility] Co de Phone Number [facility] [address] [place] [address] documented in this encounter Visit Diagnoses Diagnosis Status post left hip replacement- Primary Hip joint replacement by other means Other mechanical complication of internal left hip prosthesis, initial encounter (HCC) HTN (hypertension), malignant Essential hypertension, malignant IBS (irritable bowel syndrome) Irritable bowel syndrome Other mechanical complication of internal left hip prosthesis, initial encounter ([facility]) documented in this encounter Administered Medications Inactive Administered Medications - up to 1 most recent administrations Medication Order MAR Action Action Date Dose Rate Site acetaminophen (TYLENOL) tablet 650 mg 650 mg, Oral, EVERY 6 HOURS SCHEDULED (4 times per day), First dose on Mon07/26/17 at 1800, Until Discontinued, Maximum adult dose of acetaminophen is 4000 mg from all sources in 24 hours. , Post-op Given 07/27/2017 11:48 AM EST 650 mg albuterol (PROVENTIL HFA; VENTOLIN HFA) INHALER 2 Puff 2 Puff, Inhalation, PRN, Starting on Mon07/26/17 at 1705, Until Maritza 07/27/17 at 202, Wheezing, Shortness of Breath, Waste Sort Code = SP Given 07/27/2017 9:40 AM EST 2 Puffs albuterol (PROVENTIL) nebulizer solution 2.5 mg 2.5 mg, Nebulization, PRN, Starting on Mon07/26/17 at 1705, Until Mon07/27/17 at 2023, Wheezing, Shortness of Breath, Bronchospasm Aspirin EC tablet 325 mg 325 mg, Oral, 2 TIMES DAILY, First dose on Mon07/27/17 at 0900, Until Discontinued, Do not crush or chew., Post-op Given 07/27/2017 8:36 AM EST 325 mg cloNIDine HCl (CATAPRES) tablet 0.1 mg 0.1 mg, Oral, 3 TIMES DAILY PRN, Starting on Mon07/26/17 at 1716, Until Mon07/27/17 at 2023, PRN for SBP>165, or DBP > 95. docusate sodium (COLACE) capsule 100 mg 100 mg, Oral, 2 TIMES DAILY, First dose on Mon07/26/17 at 2100, Until Discontinued, Do not crush or chew., Post-op Given 07/27/2017 8:36 AM EST 100 mg ketorolac (TORADOL) injection 30 mg 30 mg, Intravenous, EVERY 6 HOURS SCHEDULED (4 times per day), 20 doses, First dose on Mon07/26/17 at 1800, Last dose on Mon07/31/17 at 1200, Post-op Given 07/26/2017 11:46 PM EST 30 mg losartan-hydrochlorothiazid e (HYZAAR) 50-12.5 mg per tablet 1 Tab 1 Tablet, Oral, DAILY, First dose on Mon07/27/17 at 0900, Until Discontinued, +++ARB Medication+++ Given 07/27/2017 8:36 AM EST 1 Tablet magnesium hydroxide (MILK OF MAGNESIA) 400 mg/5 mL suspension 30 mL 30 mL, Oral, DAILY, First dose on Mon07/27/17 at 0900, Until Discontinued, Start POD #1. Hold if patient has had bowel movement., Post-op Given 07/27/2017 8:37 AM EST 30 mL methocarbamol (ROBAXIN) 1,000 mg in sodium chloride 0.9 % 100 mL IVPB 1,000 mg, Intravenous, EVERY 8 HOURS SCHEDULED (3 times per day), First dose on Mon07/26/17 at 1445, Until Discontinued, Administer over 30 Minutes IV Started 07/26/2017 9:54 PM EST 1,000 mg 200 mL/hr mometasone-formoterol (DULERA) 100-5 mcg/actuation inhaler 2 Puff 2 Puff, Inhalation, 2 TIMES DAILY (RESP CARE), First dose on Mon07/26/17 at 2000, Until Discontinued, Therapeutic Interchange for ADVAIR HFA 45-21 mcg or ADVAIR diskus inhaler 110-50 mcg Waste Sort Code = SP Given 07/27/2017 9:40 AM EST 2 Puffs ondansetron (ZOFRAN) injection 4 mg 4 mg, Intravenous, EVERY 4 HOURS PRN, Starting on Mon07/26/17 at 1546, Until Maritza 07/27/17 at 2023, Nausea, Post-op ondansetron (ZOFRAN-ODT) disintegrating tablet 4 mg 4 mg, Oral, EVERY 4 HOURS PRN, Starting on Mon07/26/17 at 1546, Until Mon07/27/17 at 2023, Nausea, Dissolve in mouth, Post-op ortho canal block ONCE PRN, 1 dose, Starting on Mon07/26/17 at 1344, Until Mon07/26/17 at 1344, Intra-op Given 07/26/2017 1:44 PM EST 63 mL Left Hip vancomycin (VANCOCIN) reconstituted injection ONCE PRN, 1 dose, Starting on Mon07/26/17 at 1254, Until Mon07/26/17 at 1254, Intra-op Given 07/26/2017 12:54 PM EST 1,000 mg Left Hip documented in this encounter Active and Recently Administered Medications Times are shown in EST. Scheduled Medication Order 07/25/2017 07/26/2017 07/27/2017 acetaminophen (OFIRMEV) infusion 1,000 mg (COMPLETED) 1,000 mg, Intravenous, ONCE PREPROCEDURE, 1 dose, On Mon07/25/17 at 0945, Administer over 15 Minutes, For patient weight greater than or equal to 50 kg Maximum adult dose of acetaminophen is 4000 mg from all sources in 24 hours. , Pre-op (Holding/SDS Meds) 1050 (IV Started - Provider: Nandini Jones RN)1105 (Stopped - Provider: Mariangel Lynn RN) acetaminophen (TYLENOL) tablet 650 mg 650 mg, Oral, EVERY 6 HOURS SCHEDULED (4 times per day), First dose on Mon07/26/17 at 1800, Until Discontinued, Maximum adult dose of acetaminophen is 4000 mg from all sources in 24 hours. , Post-op 1756 (Given - Provider: Lyndsay Muhammad RN)2346 (Given - Provider: Arline May RN) 0607 (Given - Provider: Arline May RN)1148 (Given - Provider: Tiara Muhammad, JUDITH) Aspirin EC tablet 325 mg 325 mg, Oral, 2 TIMES DAILY, First dose on Mon07/27/17 at 0900, Until Discontinued, Do not crush or chew., Post-op 0836 (Given - Provid er: Tiara Muhammad RN) ceFAZolin (ANCEF) IVPB 2 g (COMPLETED) 2 g, Intravenous, ONCE PREPROCEDURE, 1 dose, On Mon07/25/17 at 1845, Administer over 30 Minutes, Pre-op (Holding/SDS Meds) 1202 (Given - Provider: Garry Choi MD) ceFAZolin (ANCEF) IVPB 2 g (COMPLETED) 2 g, Intravenous, *EVERY 8 HOURS, 2 doses, First dose on Mon07/26/17 at 1800, Last dose on Mon07/27/17 at 0200, Administer over 30 Minutes, Not to exceed 24 hrs post surgery end time, Post-op 1801 (IV Started - Provider: Lyndsay Muhammad RN)1831 (Stopped - Provider: Lyndsay Muhammad RN) 0223 (IV Started - Provider: Arline May RN)0253 (Stopped - Provider: Arline May RN) docusate sodium (COLACE) capsule 100 mg 100 mg, Oral, 2 TIMES DAILY, First dose on Mon07/26/17 at 2100, Until Discontinued, Do not crush or chew., Post-op 2034 (Given - Provider: Arline May RN) 0836 (Given - Provider: Tiara Muhammad, JUDITH) eluxadoline Tab 1 Tab 1 Tablet, Oral, 2 TIMES DAILY, First dose on Mon07/26/17 at 2100, Until Discontinued, Non formulary item. Pt to use med from home. 2100 (Not Given - Provider: Arline May RN - Reason: Medication not available) 0900 (Not Given - Provider: Tiara Muhammad RN - Reason: Medication not available) ketorolac (TORADOL) injection 30 mg 30 mg, Intravenous, EVERY 6 HOURS SCHEDULED (4 times per day), 20 doses, First dose on Mon07/26/17 at 1800, Last dose on Mon07/31/17 at 1200, Post-op 1756 (Given - Provider: Lyndsay Muhammad RN)2346 (Given - Provider: Arline May RN) 0600 (Not Given - Provider: Arline May RN - Reason: Loss of IV access)1200 (Not Given - Provider: Tiara Muhammad RN - Reason: Loss of IV access) losartan-hydrochlorothiazid e (HYZAAR) 50-12.5 mg per tablet 1 Tab 1 Tablet, Oral, DAILY, First dose on Mon07/27/17 at 0900, Until Discontinued, +++ARB Medication+++ 0836 (Given - Provid er: Tiara Muhammad RN) magnesium hydroxide (MILK OF MAGNESIA) 400 mg/5 mL suspension 30 mL 30 mL, Oral, DAILY, First dose on Mon07/27/17 at 0900, Until Discontinued, Start POD #1. Hold if patient has had bowel movement., Post-op 0837 (Given - Provid er: Tiara Muhammad RN) methocarbamol (ROBAXIN) 1,000 mg in sodium chloride 0.9 % 100 mL IVPB 1,000 mg, Intravenous, EVERY 8 HOURS SCHEDULED (3 times per day), First dose on Mon07/26/17 at 1445, Until Discontinued, Administer over 30 Minutes 1445 (IV Started - Provider: Mariangel Lynn RN - Comment: anesthesia computer no scanner)1515 (Stopped - Provider: Mariangel Lynn RN)2154 (IV Started - Provider: Arline May RN)2224 (Stopped - Provider: Arline May, JUDITH) 0600 (Not Given - Provider: Arline May RN - Reason: Loss of IV access)1400 (Not Given - Provider: Tiara Muhammad RN - Reason: Loss of IV access) mometasone-formoterol (DULERA) 100-5 mcg/actuation inhaler 2 Puff 2 Puff, Inhalation, 2 TIMES DAILY (RESP CARE), First dose on Mon07/26/17 at 2000, Until Discontinued, Therapeutic Interchange for ADVAIR HFA 45-21 mcg or ADVAIR diskus inhaler 110-50 mcg Waste Sort Code = SP 2142 (Given - Provider: Ken Rose, OCCUPATIONAL THERAPY DEPARTMENT CHAIR) 0940 (Given - Provider: Ruben Foley, ZULMA) pregabalin (LYRICA) capsule 75 mg (COMPLETED) 75 mg, Oral, ONCE PREPROCEDURE, 1 dose, On Mon07/25/17 at 0945, Give with a small sip of water. HOLD IF PATIENT HAS TAKEN USUAL DOSE IN THE AM., Pre-op (Holding/SDS Meds) 1048 (Given - Provider: Nandini Jones, JUDITH) Continuous Medication Order 07/25/2017 07/26/2017 07/27/2017 0.9 % NaCl infusion Intravenous, at 100 mL/hr, CONTINUOUS, Starting on Mon07/26/17 at 1515, Until Maritza 07/27/17 at 1514, Post-op 1617 (Rate/Dose Verify - Provider: Lyndsay Muhammad, JUDITH)2153 (New Bag - Provider: Arline May, JUDITH) lactated Ringers infusion (CANCELED) Intravenous, at 100 mL/hr, CONTINUOUS, Starting on Mon07/26/17 at 1045, Until Mon07/26/17 at 1536, Pre-op (Holding/SDS Meds) 1035 (New Bag - Provider: Nandini Jones RN)1149 (New Bag - Provider: Garry Choi MD)1222 (Anesthesia Volume Adjustment - Provider: Garry Choi MD)1358 (Anesthesia Volume Adjustment - Provider: Columba Smith CRNA)2148 (Stopped - Provider: Arline May, JUDITH) PRN Medication Order 07/25/2017 07/26/2017 07/27/2017 albuterol (PROVENTIL HFA; VENTOLIN HFA) INHALER 2 Puff(Linked Group 1) 2 Puff, Inhalation, PRN, Starting on Mon07/26/17 at 1705, Until Maritza 07/27/17 at 2024, Wheezing, Shortness of Breath, Waste Sort Code = SP 0230 (Given - Provid er: Arlette Purvis RRT)0940 (Given - Provider: Ruben Foley RRT) albuterol (PROVENTIL) nebulizer solution 2.5 mg(Linked Group 1) 2.5 mg, Nebulization, PRN, Starting on Mon07/26/17 at 1705, Until Maritza 07/27/17 at 2023, Wheezing, Shortness of Breath, Bronchospasm 0230 (See Alternativ e - Provider: Arlette Purvis RRT)0940 (See Alternative - Provider: Ruben Foley RRT) benzocaine-menthol 15-3.6 mg Lozg 1 Lozenge 1 Lozenge, Buccal, PRN, Starting on Mon07/26/17 at 1546, Until Maritza 07/27/17 at 2023, Sore Throat, Waste Sort Code = BKC, Post-op cloNIDine HCl (CATAPRES) tablet 0.1 mg 0.1 mg, Oral, 3 TIMES DAILY PRN, Starting on Mon07/26/17 at 1716, Until Maritza 07/27/17 at 2023, PRN for SBP>165, or DBP > 95. midazolam (VERSED) injection 2 mg (CANCELED) 2 mg, Intravenous, EVERY 1 HOUR PRN, Starting on Mon07/26/17 at 1445, Until Mon07/26/17 at 1536, pain, anxiety, or ketamine dysphoria, VESICANT , PACU 1449 (Given - Provider: Mariangel Lynn RN - Comment: anesthesia computer no scanner) ondansetron (ZOFRAN) injection 4 mg(Linked Group 2) 4 mg, Intravenous, EVERY 4 HOURS PRN, Starting on Mon07/26/17 at 1546, Until Maritza 07/27/17 at 2023, Nausea, Post-op ondansetron (ZOFRAN-ODT) disintegrating tablet 4 mg(Linked Group 2) 4 mg, Oral, EVERY 4 HOURS PRN, Starting on Mon07/26/17 at 1546, Until Maritza 07/27/17 at 2023, Nausea, Dissolve in mouth, Post-op ortho canal block (CANCELED) ONCE PRN, 1 dose, Starting on Mon07/26/17 at 1344, Until Mon07/26/17 at 1344, Intra-op 1344 (Given - Provider: Augie Ramires MD) vancomycin (VANCOCIN) reconstituted injection (CANCELED) ONCE PRN, 1 dose, Starting on Mon07/26/17 at 1254, Until Mon07/26/17 at 1254, Intra-op 1254 (Given - Provider: Augie Ramires MD) Linked Groups Order Group 1: albuterol (PROVENTIL HFA; VENTOLIN HFA) INHALER 2 PuffJump to med 2 Puff, Inhalation, PRN, Starting on Mon07/26/17 at 1705, Until Maritza 07/27/17 at 2024, Wheezing, Shortness of Breath, Waste Sort Code = SP Or albuterol (PROVENTIL) nebulizer solution 2.5 mgJump to med 2.5 mg, Nebulization, PRN, Starting on Mon07/26/17 at 1705, Until Maritza 07/27/17 at 2024, Wheezing, Shortness of Breath, Bronchospasm Group 2: ondansetron (ZOFRAN) injection 4 mgJump to med 4 mg, Intravenous, EVERY 4 HOURS PRN, Starting on Mon07/26/17 at 1546, Until Maritza 07/27/17 at 2024, Nausea, Post-op Or ondansetron (ZOFRAN-ODT) disintegrating tablet 4 mgJump to med 4 mg, Oral, EVERY 4 HOURS PRN, Starting on Mon07/26/17 at 1546, Until Maritza 07/27/17 at 2024, Nausea, Dissolve in mouth, Post-op documented in this encounter Orders Medications Ordered That Tone ht Not Have Been Administered Count Last Ordered Date First Ordered Date 0.9 % NaCl infusion 07/26/2017 acetaminophen (TYLENOL) tablet 650 mg albuterol (PROVENTIL HFA; VE NTOLIN HFA) INHALER 2 Puff 07/26/2017 albuterol (PROVENTIL HFA;LISSET TOLIN HFA) inhaler 2 Puff 07/26/2017 albuterol (PROVENTIL) nebuli zer solution 2.5 mg 07/26/2017 Aspirin EC tablet 325 mg 07/26/2017 benzocaine-menthol 15-3.6 mg Lozg 1 Lozenge 07/26/2017 ceFAZolin (ANCEF) IVPB 2 g 2 07/26/2017 0 07/25/2017 cloNIDine HCl (CATAPRES) tablet 0.1 mg 1 docusate sodium (COLACE) capsule 100 mg 1 0 07/26/2017 eluxadoline Tab 1 Tab 1 07/26/2017 fentaNYL (SUBLIMAZE) injection 50 mcg 1 fluticasone-salmeterol (ADVA IR) 500-50 mcg/dose diskus inhaler 1 Puff 1 07/26/2017 ketamine (KETALAR) injection 20 mg 1 2017 ketorolac (TORADOL) injection 30 mg 1 07/26 lactated Ringers infusion 2 07/26/2017 losartan-hydrochlorothiazide (HYZAAR) 50-12.5 mg per tablet 1 Tab 1 07/26/2017 magnesium hydroxide (MILK OF MAGNESIA) 400 mg/5 mL suspension 30 mL 1 07/26/2017 methocarbamol (ROBAXIN) 1,00 0 mg in sodium chloride 0.9 % 100 mL IVPB 1 07/26/2017 midazolam (VERSED) injection 2 mg 1 018 mometasone-formoterol (DULER A) 100-5 mcg/actuation inhaler 2 Puff 1 07/26/2017 mupirocin (BACTROBAN) 2 % ointment 1 2017 ondansetron (ZOFRAN) injection 4 mg 2 07/26 ondansetron (ZOFRAN-ODT) dis integrating tablet 4 mg 1 07/26/2017 ondansetron (ZOFRAN-ODT) dis integrating tablet 8 mg 1 07/26/2017 promethazine (PHENERGAN) inj ection 6.25-12.5 mg 1 07/26/2017 acetaminophen (OFIRMEV) infusion 1,000 mg 1 07/25/2017 pregabalin (LYRICA) capsule 75 mg 1 018 Nursing Count Last Ordered Date First Orde red Date ADMISSION 1 07/26/2017 Consult Count Last Ordered Date First Orde red Date IP CONSULT TO HOSPITALIST 1 07/26/2017 PT Count Last Ordered Date First Orde red Date IP CONSULT TO PHYSICAL THERAPY 1 07/26/2017 documented in this encounter Care Teams Sack Keeper Relationship Specialty Start Date End Date Michelle Garrido, YOLI PCP - General Nurse Practitioner 01/09/17 01/14/21 documented as of this encounter
--- OUTSIDE RECORDS SUMMARY | 2024-05-29 15:51 | XMS_ITS | Encounter Summary ---
Author [place] [address] Care Team Providers Care Lead Ingot Molder Name Role Phone Michelle Garrido APRN Primary Care Provider Unava ilable Reason for Visit * Reason Comments Medication Refill Encounter Details Date Type Department Care Team (Late st Contact Info) Description 08/21/2017 Refill [facility] [address] [place] [address] Reginald Leigh MD [address] [place] [address] Medication Refill Social History Tobacco Use Types [...] No 07/11/2017 9:14 AM EST Jimbo Riya GarciaESTEFANY * Because of a physical, mental or emotional condition, does this person have difficulty doing errands alone such as visiting a doctor's office or shopping? Answer Date of Assessment Author No 07/11/2017 9:14 AM EST Jimbo Riya Garcia RMJane documented as of this encounter Mental Status * Because of a physical, mental or emotional condition, does this person have serious difficulty concentrating, remembering or making decisions? Answer Entry Date Author No 07/11/2017 9:14 AM EST Choi Riya Garcia RMA documented in this encounter Plan of Treatment Upcoming Encounters Date Type Department Care Team (Late st Contact Info) Description 06/28/2024 9:40 AM EST Clinical Support [place] [address] [place] [phone] 11/19/2024 1:40 PM EDT Office Visit SEP Neurology [facility] [address] [place] [id number] Lyndsay Brewer DO [address] [place] [address] documented as of this encounter [...] syndrome documented in this encounter Care Teams Lead Ingot Molder Relationship Specialty Start Date End Date Michelle Garrido APRN PCP - General Nurse Practitioner 01/09/17 01/14/21 documented as of this encounter
--- OUTSIDE RECORDS SUMMARY | 2024-05-29 15:51 | XMS_ITS | Encounter Summary ---
Author Organization [place] [address] Care Team Providers Care Payroll Accounting Clerk Name Role Phone Michelle Garrido APRN Primary Care Provider Unava ilable Reason for Visit * Auth/Cert/Inpt Specialty Diagnoses / Procedures Referred By Contac t Referred To Contact Diagnoses Other mechanical complication of internal left hip prosthesis, initial encounter ([facility]) Other mechanical complication of internal left hip prosthesis, initial encounter ([facility]) [T84.091A] Procedures IA REVISE TOTAL HIP REPLACEMENT LEFT TOTAL HIP ARTHROPLASTY- REVISION-ANTERIOR EDG PERIOP [facility] [place] [address] Phone: tel: fax: Referral ID Status Reason Start Date Expiration Date Visits Re quested Visits Authorized [id number] 07/13/2017 07/13/2018 1 1 Encounter Details Date Type Department Care Team (Late st Contact Info) Description 07/26/2017 10:02 AM EST - 07/27/2017 4:15 PM [facility] Hospital Encounter EDG 7D ORTHO [facility] [place] [address] Augie Ramires MD [address] [place] [address] Other mechanical complication of internal left hip prosthesis, initial encounter (HCC) Discharge Disposition: Home or Self Care Social [...] 10:20 AM EST documented in this encounter Discharge Summaries * Thao Hardin, FUR REPAIR INSPECTOR - 07/27/2017 4:15 PM EST [facility] Discharge Summary Patient Name: Zuhair Whitlock : [...] mg Cap Follow Up: Augie Ramires MD [address] [place] [id number] In 2 weeks Signed: Thao Hardin APRN 07/31/2017 12:34 PM Cosigned by Augie Ramires MD at 08/07/2017 5:42 PM EST documented in this encounter Discharge Instructions * Discharge Instructions* Tiara Muhammad RN - 07/27/2017 12:05 PM EST Images from the original note were not included. Augie Ramires MD Post Operative Instructions: [facility] [address] [place] [address] [phone]) [facility] [phone] [facility] Procedure / Diagnosis: Revision Left Hip Replacement [...] risk of thermal injury. X Please call [phone] if you are having pain that is [...] days, unless otherwise directed. X Please call [phone] (BONE) or (BONE) to make an appointment X Please call if you develop any problems (Severe pain, Shortness of breath / difficulty breathing,Temperature greater than 101oF). We are available for 16/01 for any of your urgent needs, and [...] Contact the Physical Therapy department, ideally through [facility] at [phone], to work with your individual therapist for [...] after joint replacement, and your recovery and joint terminal attack controller functional outcomes may be less predictatble. MEDICATIONS: [...] come! Dear Patient, The staff of at [facility] sincerely hopes that your hospital stay was pleasant. We try to ensure that our patients are cared for in the most respectful and comfortable way. The staff members of pride themselves on delivering kind and compassionate care to each and every patient. Working collaboratively with physicians, social workers, case supervisor, and the discharge team, we attempt to [...] for further explanation. Thank you for choosing [facility]. We hope that you have had [...] the correct instructions below (Dermabond Prineo or Maud) that coincide with your wound dressing. ?? [...] of it and re-order additional gel bags. [facility] Wrap care instructions: The [facility] cold therapy wrap can be hand washed and air dried. Additional [facility] body specific wraps can be re-ordered from [employer] or call [phone]. [facility] re-order information: Visit our Patient Retail Store at [email or web address] Telephone orders: Chad Hose/Compression Stockings Chad hose/compression [...] Department of Health and Human Services, national Roxie of Health, National Heart Lungs and Blood Roxie, Obtained on 06/04/2007 from http: www.nihlb i.nih.gov/health/dci/Diseases/Dvt/DVT_All.html [...] and a coupon, you will need to picker machine operator your supplement at your pharmacy counter. CONSTIPATION [...] in your stool, contact your doctor. Reference: [facility] - Tools for Healthier Lives ? Higher [employer]? . oNé & Allie.? HOME SAFETY GUIDELINES Medications ??? [...] Control and Prevention www.cdc.gov ADD: Home Safety [place] www.Homesafetycouncil.org MISCELLANEOUS Activity as tolerated as instructed [...] procedures Gastrointestinal procedures (EGD or Colonoscopy) Call [phone] ([facility]) for any questions or concerns. Also feel free to use the After Hours clinic at: [facility] [address] [place] [id number] Monday-Monday 9:00 am to 9:00 pm Monday [...] Care Everywhere. * ACETAMINOPHEN TABLETS OR CAPLETS (NICARAGUAN) * ASPIRIN-ORAL (NICARAGUAN) * CELECOXIB - ORAL (NICARAGUAN) * DOCUSATE CAPSULES (NICARAGUAN) documented in this encounter Medications at Time of Discharge Nebulizer Accessories (ALL FLOW 4000 KIT) [place] [...] Code Departure Means Destination Home or Self Usp documented in this encounter Progress Notes * Yoanna Best, CPAS - 07/27/2017 2:55 PM EST 07/27/17 1444 PT Subjective Note Type Treatment/Progress Patient Room/Unit 7432 PT Subjective Comments #1 pt agrees to PT in [facility] Discharge Information This progress note [...] mobility Observation Additional Comments pt transported to [facility] via w/c Transfers Sit to [...] (with HEP) Time In / Time Out [id number] IP PT Evaluation Minutes 0 IP PT [...] and is obtaining a shower chair from [facility]. Patient stated he is able to [...] Past Med Hx HTN, bipolar, IBS, anxiety, RI, heroin abuse, pneumonia, pnuemothorax Diagnostic Testing ECG [...] CK PT G-Codes Functional Assessment Tool Used [facility] Score 18 Functional Limitation Mobility: Walking and [...] and Knee Replacement & General Orthopaedic Surgery [facility] [phone] Progress Note Admit Date: 07/26/2017 Subjective: Pain [...] of internal left hip prosthesis, initial encounter ([facility]) [T84.091A] Other mechanical complication of internal left hip prosthesis, initial encounter ([facility]) [T84.091A]. 51 y.o. male POD# 0 from [...] Marcio Ramires H&P to be faxed to [phone] or available in [place] for procedures performed at a [facility]. Recent illnesses: none. 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 ESTIMATED BLOOD LOSS: 200mL IMPLANTS: Implant Name Type Inv. Item Serial No. Stonework Tracer Lot No. LRB No. Used 40 mm acetabular liner [id number] Left 1 MODULAR FEMORAL HEAD [id number] Left 1 TITANIUM MODULAR HEAD SLEEVE [id number] Left 1 COMPLICATIONS: None INDICATIONS: The patient [...] Ramires MD - 07/26/2017 1:56 PM EST [facility] OPERATIVE/PROCEDURE NOTE Zuhair Whitlock Luda July 26, 2017 Body mass index is 30.28 kg/m??. 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 Needed for recduction, limb manipulation, tissue retraction,and wound closure as indicated. ANESTHESIA: General and Field Block SPECIMENS: ID Type Source Tests Collected by Time Destination 1 : Left Hip Explants Bar Finish Operator Hip, Left PATHOLOGY TISSUE REQUEST Augie Ramires MD 07/26/2017 1226 ESTIMATED BLOOD LOSS: 200 ml from 07/26/2017 11:49 AM to 07/26/2017 1:56 PM FINDINGS: See dictation OTHER INFO: Stable to PACU DISPOSITION/POST PROC COURSE: Stable to PACU Augie Ramires MD Date: 07/26/2017 documented in this encounter Consult Notes * Leatha Avila MD - 07/26/2017 3:10 PM ESTAssociated Order(s): IP CONSULT TO HOSPITALIST [facility] History and Physical Name: Zuhair Whitlock ADDRESS: [address] [place] [address] : 1965 AGE: 51 y.o. Admitting Physician: Leatha Avila MD Date of Admit: 07/26/2017 Chief Complaint: Failed left total hip arthroplasty History of Present Illness: Patient is a 51 year old male with a past medical history significant for CAD/HTN/IBS/Asthma who presents to [facility] for revision of his left total hip [...] EKG 12 LEAD Impression Stationary ECG Study [place] Interpretive Statements SINUS RHYTHM INFERIOR AND ANTEROLATERAL [...] - 07/19/2017 9:42 AM EST H&P in EPIC 07/11 PCP Left message on Elaine's voice mail regarding antibiotic order and office note Scanned office note into epic 07/17 documented in this encounter Miscellaneous Notes * Utilization Review Notes - Radha Villavicencio RN - 07/27/2017 9:15 AM EST IP ORDER IN [facility]. CAME TO MS FLOOR FROM PACU. SP 07/26/17LEFT TOTAL HIP ARTHROPLASTY- REVISION-ANTERIOR IP TO MS. PT EVAL. COLD THERAPY. IS Q2H, WBAT , A BOOTS. IV 100ML/HR, ASA 325MG PO BID,ANCEF IV Q8H, TORADOL IV QID,TYLENOL 650MG PO QID, ROBAXIN IV TID, DCPLAN- AWAITING PT EVAL FOR D AN documented in this encounter Plan of Treatment Upcoming Encounters Date Type Department Care Team (Late st Contact Info) Description 06/28/2024 9:40 AM EST Clinical Support [facility] [address] [phone] 11/19/2024 1:40 PM EDT Office Visit SEP Neurology [facility] [address] [place] [address] Lyndsay Brewer DO [address] [place] [address] documented as of this encounter [...] 3:10 PM ESTThis note is in progress. [facility] History and Physical Name: Zuhair Whitlock ADDRESS: [address] [place], [place] [id number] : 1965 AGE: 51 y.o. Admitting Physician: Leatha Avila MD Date of Admit: 07/26/2017 Chief Complaint: Failed left total hip arthroplasty History of Present Illness: Patient is a 51 year old male with a past medical history significant forCAD/HTN/IBS/Asthma who presents to [facility] for revision of his left total hiparthroplasty. [...] BID Leatha Avila MD 07/26/2017 5:24 PM FL < 1 HOUR EULOGIO 07/26/2017 2:10 PM EST XR HIP INTRAOPERATIVE LEFT 2 VIEW EULOGIO 07/26/2017 2:09 PM EST PATHOLOGY TISSUE REQUEST Routine 07/26/2017 12:26 PM EST Other mechanical complication of internal left hip prosthesis, initial encounter (HCC) TOTAL HIP ARTHROPLASTY/REPLAC EMENT-ANTERIOR OR REVISION ANTERIOR (CRISTINA/MONO) 07/26/2017 11:49 AM EST Other mechanical complication of internal left hip prosthesis, initial encounter ([facility]) Special Needs SIRIA TABLE, LARGEST C-ARM, MUHAMMAD [...] - 17.1 gm/dL 07/27/2017 8:19 AM EST [facility] Hct 39.7 38.9 - 51.6 % 07/27/2017 8:19 AM EST [facility] Blood VENOUS BLOOD / Unknown Venipuncture / Unknown 07/27/2017 8:00 AM EST 07/27/2017 8:09 AM EST us Thao Hardin FUR REPAIR INSPECTOR HEMATOLOGY ORDERABLES F inal Result [facility] [address] [place] [address] * [place] < 1 HOUR (07/26/2017 2:10 PM EST) Narrative PACS - 07/26/2017 2:11 PM EST Fluoroscopy was performed. The radiologist was not in attendance. No permanent images were obtained. This dictation is being made for record keeping purposes. us Augie Ramires MD IMG FLUOROSCOPY [place] FAJARDO Final Result PACS * XR HIP INTRAOPERATIVE LEFT 2 [...] Digital spot images from left VANCE procedure. Augie Ramires MD IMG DIAGNOSTIC IMAGI NG ORDERABLES Final Result * PATHOLOGY TISSUE REQUEST (07/26/2017 12:26 PM EST) CASE REPORT Surgical Pathology ?Case: [id number] ? Authorizing Provider: ??Augie Ramires MD ?Collected: ? 07/26/2017 1226 ? Ordering Location: ? [facility] ?Received: ?07/26/2017 1703 ? Pathologist: ? Nadya Aldrich MD ? Specimen: ?Hip, Left, Left Hip Explants ? 07/28/2017 8:46 AM EST [facility] FINAL DIAGNOSIS Left hip explant, removal: - Gross examination only. 07/28/2017 8:46 AM EST [facility] S DESCRIPTION Received in formalin and labeled with the patient? s name and designated ? left hip explant? are two portions of surgical hardware as follows: Shiny beasley metal cup, 5.2 cm in diameter x 2.6 cm deep, identified ? [id number] [id number]? ; and a shiny, beasley metal partial sphere, 4.7 cm in diameter x 3.4 cm, identified ? [id number]? . Gross dictation only. /CDM 07/28/2017 8:46 AM EST [facility] MICROSCOPIC DESCRIPTION Microscopic examination is performed and the findings corroborate the diagnosis. 07/28/2017 8:46 AM [facility] FLOW CYTOMETRY SUMMARY 07/28/2017 8:46 AM [facility] EMBEDDED IMAGES 07/28/2017 8:46 AM [facility] Bar Finish Operator LEFT HIP REGION STRUCTURE / Unknown 07/26/2017 12:26 PM EST 07/26/2017 5:03 PM EST Comment:Documentary only Augie Ramires MD PATHOLOGY ORDERABLES Final Result [facility] [address] [place] [address] documented in this encounter Visit Diagnoses Diagnosis Status post left hip replacement- Primary Hip joint replacement by other means Other mechanical complication of internal left hip prosthesis, initial encounter (HCC) HTN (hypertension), malignant Essential hypertension, malignant IBS (irritable bowel syndrome) Irritable bowel syndrome documented in this encounter Administered Medications Inactive Administered Medications - up to 1 most recent administrations Medication Order MAR Action Action Date Dose Rate Site 0.9 % NaCl infusion Intravenous, at 100 mL/hr, CONTINUOUS, Starting on Mon07/26/17 at 1515, Until Maritza 07/27/17 at 1514, Post-op New Bag 07/26/2017 9:53 PM EST 100 mL/hr acetaminophen (OFIRMEV) infusion 1,000 mg 1,000 mg, Intravenous, ONCE PREPROCEDURE, 1 dose, On Mon07/25/17 at 0945, Administer over 15 Minutes, For patient weight greater than or equal to 50 kg Maximum adult dose of acetaminophen is 4000 mg from all sources in 24 hours. , Pre-op (Holding/SDS Meds) IV Started 07/26/2017 10:50 AM EST 1,000 mg 400 mL/hr acetaminophen (TYLENOL) tablet 650 mg 650 mg, [...] Mon07/27/17 at 2023, Wheezing, Shortness of Breath, Waste Sort Code [...] Given 07/27/2017 8:36 AM EST 325 mg ceFAZolin (ANCEF) IVPB 2 g 2 g, Intravenous, *EVERY 8 HOURS, 2 doses, First dose on Mon07/26/17 at 1800, Last dose on Mon07/27/17 at 0200, Administer over 30 Minutes, Not to exceed 24 hrs post surgery end time, Post-op IV Started 07/27/2017 2:23 AM EST 2 g 200 mL/hr cloNIDine HCl (CATAPRES) tablet 0.1 mg 0.1 mg, Oral, 3 TIMES DAILY PRN, Starting on Mon07/26/17 at 1716, Until Mon07/27/17 at 2024, PRN for SBP>165, or DBP > 95. [...] Given 07/26/2017 11:46 PM EST 30 mg lactated Ringers infusion Intravenous, at 100 mL/hr, CONTINUOUS, Starting on Mon07/26/17 at 1045, Until Mon07/26/17 at 1536, Pre-op (Holding/SDS Meds) New Bag 07/26/2017 11:49 AM EST losartan-hydrochlorothiazide (HYZAAR) 50-12.5 mg per tablet 1 [...] 9:54 PM EST 1,000 mg 200 mL/hr midazolam (VERSED) injection 2 mg 2 mg, Intravenous, EVERY 1 HOUR PRN, Starting on Mon07/26/17 at 1445, Until Mon07/26/17 at 1536, pain, anxiety, or ketamine dysphoria, VESICANT , PACU Given 07/26/2017 2:49 PM EST 2 mg mometasone-formoterol (DULERA) 100-5 mcg/actuation inhaler 2 Puff [...] at 2023, Nausea, Dissolve in mouth, Post-op pregabalin (LYRICA) capsule 75 mg 75 mg, Oral, ONCE PREPROCEDURE, 1 dose, On Mon07/25/17 at 0945, Give with a small sip of water. HOLD IF PATIENT HAS TAKEN USUAL DOSE IN THE AM., Pre-op (Holding/SDS Meds) Given 07/26/2017 10:48 AM EST 75 mg documented in this encounter Active and [...] Discontinued, Do not crush or chew., Post-op 203 (Given - Provider: Arline May RN) 0836 (Given - Provider: Tiara Muhammad, JUDITH) eluxadoline Tab 1 Tab 1 Tablet, Oral, 2 TIMES DAILY, First dose on Mon07/26/17 at 2100, Until Discontinued, Non formulary item. Pt to use med from home. 2100 (Not Given - Provider: Arline May RN - Reason: Medication not available) 0900 (Not Given - Provider: Tiara Muhammad, JUDITH - Reason: Medication not available) ketorolac (TORADOL) [...] Medication+++ 0836 (Given - Provid er: Tiara Muhammad, JUDITH) magnesium hydroxide (MILK OF MAGNESIA) 400 mg/5 [...] SP 2142 (Given - Provider: Ken Rose, ZULMA) 0940 (Given - Provider: Ruben Foley, ZULMA) pregabalin (LYRICA) capsule 75 mg (COMPLETED) 75 mg, Oral, ONCE PREPROCEDURE, 1 dose, On Mon07/25/17 at 0945, Give with a small sip of water. HOLD IF PATIENT HAS TAKEN USUAL DOSE IN THE AM., Pre-op (Holding/SDS Meds) 1048 (Given - Provider: Nandini [place], RN) Continuous Medication Order 07/25/2017 07/26/2017 07/27/2017 0.9 [...] Meds) 1035 (New Bag - Provider: Nandini [place], JUDITH)1149 (New Bag - Provider: Garry Choi MD)1222 [...] 0230 (See Alternativ e - Provider: Arlette Purvis, JEWELRY REPAIRER)0940 (See Alternative - Provider: Ruben Foley RRT) [...] PRN, Starting on Mon07/26/17 at 1705, Until Martiza 07/27/17 at 202, Wheezing, Shortness of Breath, Waste Sort Code = SP Or albuterol (PROVENTIL) nebulizer solution 2.5 mgJump to med 2.5 mg, Nebulization, PRN, Starting on Mon07/26/17 at 1705, Until Maritza 07/27/17 at 2023, Wheezing, Shortness of Breath, Bronchospasm Group 2: ondansetron (ZOFRAN) injection 4 mgJump to med 4 mg, Intravenous, EVERY 4 HOURS PRN, Starting on Mon07/26/17 at 1546, Until Maritza 07/27/17 at 202, Nausea, Post-op Or ondansetron (ZOFRAN-ODT) disintegrating tablet 4 mgJump to med 4 mg, Oral, EVERY 4 HOURS PRN, Starting on Mon07/26/17 at 1546, Until Maritza 07/27/17 at 2023, Nausea, Dissolve in mouth, Post-op documented in this encounter Orders Medications Ordered That Tone ht Not Have Been Administered Count Last Ordered Date First Ordered Date albuterol (PROVENTIL HFA;LISSET TOLIN HFA) inhaler 2 Puff 1 07/26/2017 albuterol (PROVENTIL) nebuli zer solution 2.5 mg 07/26/2017 benzocaine-menthol 15-3.6 mg Lozg 1 Lozenge 07/26/2017 cloNIDine HCl (CATAPRES) tablet 0.1 mg eluxadoline Tab 1 Tab 1 07/26/2017 fentaNYL (SUBLIMAZE) injection 50 mcg fluticasone-salmeterol (ADVA IR) 500-50 mcg/dose diskus inhaler 1 Puff 07/26/2017 ketamine (KETALAR) injection 20 mg 2017 mupirocin (BACTROBAN) 2 % ointment 1 2017 ondansetron (ZOFRAN) injection 4 mg 2 07/26 ondansetron (ZOFRAN-ODT) dis integrating tablet 4 mg 1 07/26/2017 ondansetron (ZOFRAN-ODT) dis integrating tablet 8 mg 1 07/26/2017 ortho canal block 1 07/26/2017 promethazine (PHENERGAN) inj ection 6.25-12.5 mg 1 07/26/2017 vancomycin (VANCOCIN) recons tituted injection 1 07/26/2017 ceFAZolin (ANCEF) IVPB 2 g 1 07/25/2017 lactated Ringers infusion 1 07/25/2017 Nursing Count Last Ordered Date First Orde red Date ADMISSION 1 07/26/2017 Consult Count Last Ordered Date First Orde red Date IP CONSULT TO HOSPITALIST 1 07/26/2017 PT Count Last Ordered Date First Orde red Date IP CONSULT TO PHYSICAL THERAPY 1 07/26/2017 documented in this encounter Care Teams Payroll Accounting Clerk Relationship Specialty Start Date End Date Michelle Garrido APRN PCP - General Nurse Practitioner 01/09/17 01/14/21 documented as of this encounter
--- OUTSIDE RECORDS SUMMARY | 2024-05-29 15:51 | XMS_ITS | Encounter Summary ---
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 [address] Phone: tel: fax: Referral ID Status Reason Start Date Expiration Date Visits Re quested Visits Authorized [id number] 07/13/2017 07/13/2018 1 1 Encounter Details Date Type Department Care Team (Late st Contact Info) Description 07/26/2017 11:49 AM EST Anesthesia Event EDG PERIOP [facility] [place] [address] Jinny Romo MD [address] [place] [address] [place] [address] Garry Choi MD [address] [facility] [address] [place] [address] Anesthesia Record Procedure Summary Procedure Name Responsible Anesthesiologist Anesthesia Start Time Anesthesia Stop Time TOTAL HIP ARTHROPLASTY/REPLAC EMENT-ANTERIOR OR REVISION ANTERIOR (CRISTINA/MONO) (Left) Jinny Romo MD 07/26/17 1149 07/26/17 1439 Events Date Time Event Comment 07/26/2017 1103 AN Equip Check 1149 An Start 1149 An Start Data 1150 1152 Immediate Pre Anesthetic Ass es 1155 An Induction 1157 An Intubation 1158 Anesthesia Ready 1225 Incision 1331 Relief IN Intraoperative Care Transition performed including relevant patient background, intraoperative management, procedure stage, recent or potential changes, recommended plan of care with receipt of care. 1427 An Extubation 1427 an stop data 1439 Handoff I completed my SBAR handoff to the receiving nurse which have included the followin. Identification of the patient, family, or patient surrogate 2. Identification of the responsible practitioner 3. Pertinent medical history 4. Surgical procedure and reason for procedure 5. Intraoperative anesthetic management 6. Expectations/Plans for the early post-procedure period 7. 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 1439 An Stop Meds Name Total midazolam (VERSED) injection 1 mg/mL 2 m g lidocaine injection 1% 50 mg propofol (DIPRIVAN) injection 250 mg rocuronium (ZEMURON) 10 mg/mL injection 10 mg succinylcholine (ANECTINE) 20 mg/mL inje ction 160 mg dexamethasone (DECADRON) injection 4 mg/ mL 4 mg ondansetron (ZOFRAN) injection 4 mg /2 m L 4 mg ceFAZolin (ANCEF) IVPB 2 g 2 g tranexamic acid injection 1,000 mg [facility] ketamine 10 mg/mL ( 20ml vial) 70 mg ketorolac (TORADOL) IM/IV injection 30 m g 30 mg lactated Ringers infusion 1,500 mL * Agents Name O2 Air Et Sevoflurane Et Desflurane * Blood No blood administrations on file. Lines, Drains, and Airways Type Details Placement Removal Peripheral IV 07/26/17; 1036; 20; Right; Hand; P Curtis rn; 1; 07/27/17; 0400; No complications (pt accidently pulled out); Catheter intact, Dressing applied 07/26/17 1036 by Nandini Jones RN 07/27/17 0400 by Arline May, RN Airway Device: ETT- Cuffed; Size: 7.5 mm; Placement Date: 07/26/17; Placement Time: 1126 (created via procedure documentation); Removal Date: 07/26/17; Removal Time: 142607/26/17 1127 by Garry Choi MD 07/26/17 1427 by Columba Smith CRNA Incision/Procedural Site 07/26/17; 1225; Hip/Trochanter; Left; 07/27/17; 202307/26/17 1225 by Alok Velazquez RN 07/27/172023 by Discharge Provider, Automatic documented in this [...] Riya Pérez RMA documented in this encounter Procedure Notes * Garry Choi MD - 07/26/2017 12:23 PM ESTAssociated Order(s): INTRAOP AIRWAY PLACEMENT Intraop Airway Placement: Date/Time: 07/26/2017 11:27 AM Induction type: IV Mask size: Standard adult Pre-Oxygenation: Standard Mask ventilation: Easy mask ventilation Technique: Video laryngoscope Laryngoscope blade: Finn Blade size: 4 Grade view: I Airway type: ETT- cuffed Topical Anesthetic/Lubricant: LTA 4% Lidocaine Intubation assist devices: Stylet 14fr Airway location: Oral Device size: 7.5mm Secured at: 23 cm Secured by: Tape Measured from: Teeth Placement verified: Auscultation and End tidal CO2 Condition: Atraumatic Insertion attempts: 1 Title: Anesthesiologist documented in this encounter OR Notes * Anesthesia Postprocedure Evaluation - Reginald Santana MD - 07/26/2017 4:29 PM EST Post-Anesthesia Evaluation Note Patient Name: Zuhair Whitlock Patient Date: July 26, 2017 Patient Location: PACU Post OP Vitals: stable Level of Consciousness: awake and alert Post Anesthesia Pain: adequate analgesia Long Acting Local Anesthetic: n/a Airway Patency: patent Difficult Airway: no Respiratory: nasal canula and spontaneous ventilation Cardiovascular: stable Hydration: euvolemic Nausea Controlled: yes Perioperative complications: NONE * Anesthesia Preprocedure Evaluation - Garry Choi MD - 07/17/2017 10:57 AM EST Pre-Anesthesia Evaluation Note Patient Name: Zuhair Whitlock Sex: male Patient : 1965 Age: 51 y.o. Patient Date: July 17, 2017 Procedure: LEFT TOTAL HIP ARTHROPLASTY- REVISION Anesthesia Evaluation Previous anesthesia. No history of anesthetic complications: No family history of anesthesia complications: Airway Mallampati: II Neck ROM: full No increased risk of difficult airway Dental Dental exam findings: poor Pulmonary Comments: H/o PTX (+) Asthma (albuterol use 3-4x/wk) Physical exam: Comments: wheezes (Lt side) Cardiovascular (+)Hypertension: well controlled Arrhythmias (h/o palpitations): ECG reviewed Physical exam: Rhythm: regular Rate: normal (-) no angina, no shortness of breath Neuro/Psych (+) Psychiatric history: Anxiety and Bipolar GI/Hepatic/Renal (+) IBS Endo/Other (+) Arthritis: Osteo Recreational drug use: (h/o heroin use, clean since 2012 ) 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 Ekg 07/17/17-SR. Body mass index is 31.01 kg/m??. Anesthesia Plan ASA 3 Anesthesia Plan: general Induction: intravenous Monitors: STD Patient is concerned about receiving narcotics intraop since h/o heroin abuse. He would like as little narcotics as possible used. Informed consent Anesthetic plan and risks discussed with: patient and family. PCP Clearance Obtained Chart Reviewed and patient examined documented in this encounter Plan of Treatment Upcoming Encounters Date Type Department Care Team (Late st Contact Info) Description 06/28/2024 9:40 AM EST Clinical Support [facility] [address] [place] [phone] 11/19/2024 1:40 PM EDT Office Visit SEP Neurology [facility] [address] [place] [id number] Lyndsay Brewer DO [address] [place] [address] documented as of this encounter Goals Goal [...] Associated Diagnosis Comments INTRAOP AIRWAY PLACEMENT Routine 07/26/2017 12:23 PM EST documented in this encounter Results * INTRAOP AIRWAY PLACEMENT (07/26/2017 12:23 PM EST) Narrative [facility] - 07/26/2017 12:23 PM EST Garry Choi MD ? 07/26/2017 12:24 PM Intraop Airway Placement: Date/Time: 07/26/2017 11:27 AM ??Induction type: ??IV ??Mask size: ??Standard adult ??Pre-Oxygenation: ??Standard ??Mask ventilation: ??Easy mask ventilation ??Technique: ??Video laryngoscope ??Laryngoscope blade: ??Finn ??Blade size: ??4 ??Grade view: ??I ??Airway type: ??ETT- cuffed ??Topical Anesthetic/Lubricant: ??LTA 4% Lidocaine ??Intubation assist devices: ??Stylet 14fr ??Airway location: ??Oral ??Device size: ??7.5mm ??Secured at: 23 cm ??Secured by: ??Tape ??Measured from: ??Teeth ??Placement verified: ??Auscultation and End tidal CO2 ??Condition: ??Atraumatic ??Insertion attempts: ??1 ??Title: ??Anesthesiologist Procedure Note Garry Choi MD - 07/26/2017 12:23 PM EST Intraop Airway Placement: Date/Time: 07/26/2017 11:27 AM Induction type: IV Mask size: Standard adult Pre-Oxygenation: Standard Mask ventilation: Easy mask ventilation Technique: Video laryngoscope Laryngoscope blade: Finn Blade size: 4 Grade view: I Airway type: ETT- cuffed Topical Anesthetic/Lubricant: LTA 4% Lidocaine Intubation assist devices: Stylet 14fr Airway location: Oral Device size: 7.5mm Secured at: 23 cm Secured by: Tape Measured from: Teeth Placement verified: Auscultation and End tidal CO2 Condition: Atraumatic Insertion attempts: 1 Title: Anesthesiologist us Garry Choi MD [place] ANESTHESIA Final Result [facility] [address] [place] [address] documented in this encounter Visit Diagnoses Not on filedocumented in this encounter Administered Medications Inactive Administered Medications - up to 1 most recent administrations Medication Order MAR Action Action Date Dose Rate Site ceFAZolin (ANCEF) IVPB 2 g 2 g, Intravenous, ONCE PREPROCEDURE, 1 dose, On Mon07/25/17 at 1845, Administer over 30 Minutes, Pre-op (Holding/SDS Meds) Given 07/26/2017 12:02 PM EST 2 g dexamethasone (DECADRON) injection PRN (Anesthesia), Starting on Mon07/26/17 at 1222, Until Mon07/26/17 at 1439, Anesthesia Intra-op Given 07/26/2017 12:22 PM EST 4 mg ketamine (KETALAR) injection PRN (Anesthesia), Starting on Mon07/26/17 at 1155, Until Mon07/26/17 at 1439, Anesthesia Intra-op Given 07/26/2017 1:21 PM EST 10 mg ketorolac (TORADOL) injection PRN (Anesthesia), Starting on Mon07/26/17 at 1359, Until Mon07/26/17 at 1439, Anesthesia Intra-op Given 07/26/2017 1:59 PM EST 30 mg lactated Ringers infusion Intravenous, at 100 mL/hr, CONTINUOUS, Starting on Mon07/26/17 at 1045, Until Mon07/26/17 at 1536, Pre-op (Holding/SDS Meds) New Bag 07/26/2017 11:49 AM EST lidocaine 1% 10 mg/mL (1 %) injection Intravenous, PRN (Anesthesia), Starting on Mon07/26/17 at 1155, Until Mon07/26/17 at 1439, Anesthesia Intra-op Given 07/26/2017 11:55 AM EST 50 mg midazolam (VERSED) injection Intravenous, PRN (Anesthesia), Starting on Mon07/26/17 at 1149, Until Mon07/26/17 at 1439, Anesthesia Intra-op Given 07/26/2017 11:49 AM EST 2 mg ondansetron (ZOFRAN) injection PRN (Anesthesia), Starting on Mon07/26/17 at 1222, Until Mon07/26/17 at 1439, Nausea, Anesthesia Intra-op Given 07/26/2017 12:22 PM EST 4 mg propofol (DIPRIVAN) injection Intravenous, PRN (Anesthesia), Starting on Mon07/26/17 at 1155, Until Mon07/26/17 at 1439, Anesthesia Intra-op Given 07/26/2017 11:55 AM EST 250 mg rocuronium (ZEMURON) injection Intravenous, PRN (Anesthesia), Starting on Mon07/26/17 at 1155, Until Mon07/26/17 at 1439, Anesthesia Intra-op Given 07/26/2017 11:55 AM EST 10 mg succinylcholine (ANECTINE) injection Intravenous, PRN (Anesthesia), Starting on Mon07/26/17 at 1156, Until Mon07/26/17 at 1439, Anesthesia Intra-op Given 07/26/2017 11:56 AM EST 160 mg tranexamic acid injection PRN (Anesthesia), Starting on Mon07/26/17 at 1215, Until Mon07/26/17 at 1439, Anesthesia Intra-op Given 07/26/2017 12:15 PM EST 1,000 mg documented in this encounter Care Teams Short Filler Bunch Machine Operator Relationship Specialty Start Date End Date Michelle Garrido APRN PCP - General Nurse Practitioner 01/09/17 01/14/21 documented as of this encounter
--- OUTSIDE RECORDS SUMMARY | 2024-05-29 15:51 | XMS_ITS | Encounter Summary ---
Author Organization [place] [address] Care Team Providers Care Retail Event And Sales Assistant Name Role Phone Michelle Garrido APRN Primary Care Provider Unava ilable Reason for Visit * Reason Comments Medication Refill Encounter Details Date Type Department Care Team (Late st Contact Info) Description 08/17/2017 Refill [facility] [address] [place] [address] Renu Doll MD Medication Refill [...] HOURS NEEDED FOR WHEEZING. 54 Inhaler 2 08/17/2017 04/16/2018 documented in this encounter Plan of Treatment Upcoming Encounters Date Type Department Care Team (Late st Contact Info) Description 06/28/2024 9:40 AM EST Clinical Support [facility] [place] [address] [place] [phone] 11/19/2024 1:40 PM EDT Office Visit SEP Neurology [facility] [address] [place] [address] Lyndsay Brewer DO [address] [facility] [address] [place] [address] documented as of this [...] EVERY 4 HOURS NEEDED FOR WHEEZING. Reorder 02/10/2017 08/17/2017 documented as of this encounter Care Teams Retail Event And Sales Assistant Relationship Specialty Start Date End Date Michelle Garrido APRN PCP - General Nurse Practitioner 01/09/17 01/14/21 documented as of this encounter
--- OUTSIDE RECORDS SUMMARY | 2024-05-29 15:51 | XMS_ITS | Encounter Summary ---
Author Organization [place] [address] Care Team Providers Care Sand Cutting Machine Operator Name Role Phone Michelle Garrido APRN Primary Care Provider Unava ilable Reason for Visit * Reason Comments Medication Refill Encounter Details Date Type Department Care Team (Late st Contact Info) Description 09/06/2017 Refill [facility] [address] [place] [address] Renu Doll MD Medication Refill [...] 2 TIMES A DAY 120 Each 2 09/06/2017 05/23/2018 documented in this encounter Plan of Treatment Upcoming Encounters Date Type Department Care Team (Late st Contact Info) Description 06/28/2024 9:40 AM EST Clinical Support [facility] [address] [place] [address] 11/19/2024 1:40 PM EDT Office Visit SEP Neurology [facility] [address] [place] [address] Lyndsay Brewer DO [address] [facility] [address] [place] [address] documented as of this encounter [...] BY MOUTH 2 TIMES A DAY Reorder 11/25/2016 09/06/2017 documented as of this encounter Care Teams Sand Cutting Machine Operator Relationship Specialty Start Date End Date Michelle Garrido, YOLI PCP - General Nurse Practitioner 01/09/17 01/14/21 documented as of this encounter
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
--- OUTSIDE RECORDS SUMMARY | 2024-05-29 15:51 | XMS_ITS | Encounter Summary ---
Author Organization [place] [address] Care Team Providers Care Tube Fitter Name Role Phone Michelle Garrido APRN Primary Care Provider Unava ilable Reason for Visit * Reason Onset Date Comments Medication Refill 07/19/2017 Encounter Details Date Type Department Care Team (Late st Contact Info) Description 07/19/2017 Refill [facility] [address] [place] [address] Michelle Garrido APRN Medication Refill [...] 9:14 AM AIMEE Riya Choi RMA documented in this encounter Ordered Prescriptions Prescription Sig Dispense Quantity Refills Last Filled Start Date End Date eluxadoline (VIBERZI) 100 mg Oral TabletIndications:I rritable bowel syndrome with diarrhea Take 1 Tab by mouth 2 times daily. 60 Tab 07/19/2017 08/17/2017 documented in this encounter Miscellaneous Notes * Telephone Encounter - Reginald Leigh MD - 07/19/2017 3:34 PM EST I sent in viberzi * Telephone Encounter - Michelle Phillips MA - 07/19/2017 2:38 PM EST DENZEL: as expected 06/06/17 GUS 07/11/17 documented in this encounter Plan of Treatment Upcoming Encounters Date Type Department Care Team (Late st Contact Info) Description 06/28/2024 9:40 AM EST Clinical Support [facility] [address] [place] [phone] 11/19/2024 1:40 PM EDT Office Visit SEP Neurology [facility] [address] [place] [address] Lyndsay Brewer DO [address] [place] [address] documented as of this encounter [...] 1 Tab by mouth 2 times daily. DELETE-Duplicate 07/19/2017 07/19/2017 eluxadoline (VIBERZI) 100 mg Oral TabletIndications:Irritab le bowel syndrome with diarrhea Take 1 Tab by mouth 2 times daily. Reorder 07/19/2017 07/19/2017 documented as of this encounter Care Teams Tube Fitter Relationship Specialty Start Date End Date Michelle Garrido APRN PCP - General Nurse Practitioner 01/09/17 01/14/21 documented as of this encounter
--- OUTSIDE RECORDS SUMMARY | 2024-05-29 15:51 | XMS_ITS | Encounter Summary ---
Author Organization [place] [address] Care Team Providers Care Ballet Dancer Name Role Phone Michelle Garrido APRN Primary Care Provider Unava ilable Reason for Visit * Reason Onset Date Comments Medication Refill 08/21/2017 Encounter Details Date Type Department Care Team (Late st Contact Info) Description 08/21/2017 Telephone [facility] [address] [place] [address] Michelle Garrido APRN Medication Refill [...] encounter Miscellaneous Notes * Telephone Encounter - [place] - 08/21/2017 4:59 PM EST Pt notified * Telephone Encounter - Farzana Garrido MA - 08/21/2017 4:19 PM EST This was sent in on the of this month to [facility]. Can't do 90 day because it's a controlled substance. * Telephone Encounter - [place] - 08/21/2017 1:24 PM EST Medication Refill: Name of medication: VIBERZI 100 mg Oral Tablet Dose: Sig: DENZEL:as expected 06/06/17 Pharmacy:[id number] [place] [id number] [address] [facility] [phone] Last Appointment:07/11/17 Number to contact patient:[phone] If possible he would like a 90 day supply due to cost documented in this encounter Plan of Treatment Upcoming Encounters Date Type Department Care Team (Late st Contact Info) Description 06/28/2024 9:40 AM EST Clinical Support [facility] [address] [place] [phone] 11/19/2024 1:40 PM EDT Office Visit SEP Neurology [facility] [address] [facility] [place] [phone] Lyndsay Brewer, DO [address] [place] [address] documented as of this encounter [...] on filedocumented in this encounter Care Teams Ballet Dancer Relationship Specialty Start Date End Date Michelle Garrido APRN PCP - General Nurse Practitioner 01/09/17 01/14/21 documented as of this encounter
--- OUTSIDE RECORDS SUMMARY | 2024-05-29 15:51 | XMS_ITS | Encounter Summary ---
Author Organization [place] [address] Care Team Providers Care Roll Up Guider Operator Name Role Phone Michelle Garrido APRN Primary Care Provider Unava ilable Reason for Visit * Reason Comments Medication Refill Encounter Details Date Type Department Care Team (Late st Contact Info) Description 10/14/2017 Refill [facility] [address] [place] [address] Marcela De Leon MD Medication [...] BY MOUTH TWICE A DAY 60 Tab 10/17/2017 11/21/2017 documented in this encounter Miscellaneous Notes * Telephone Encounter - Farzana Garrido MA - 10/17/2017 6:31 PM EDT Pt advised. * Telephone Encounter - Farzana Garrido MA - 10/16/2017 11:51 AM EDT Dejon: as expected 10/16/17 GUS 09/18/17 for acute, 01/25/17 for IBS LRF 09/20/17 documented in this encounter Plan of Treatment Upcoming Encounters Date Type Department Care Team (Late st Contact Info) Description 06/28/2024 9:40 AM EST Clinical Support [facility] [address] [place] [phone] 11/19/2024 1:40 PM EDT Office Visit SEP Neurology [facility] [address] [place] [address] Lyndsay Brewer DO [address] [place] [address] documented as of this encounter [...] Tab by mouth 2 times daily. Reorder 09/20/2017 10/14/2017 documented as of this encounter Care Teams Roll Up Guider Operator Relationship Specialty Start Date End Date Michelle Garrido APRN PCP - General Nurse Practitioner 01/09/17 01/14/21 documented as of this encounter
--- OUTSIDE RECORDS SUMMARY | 2024-05-29 15:51 | XMS_ITS | Encounter Summary ---
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 [address] Phone: tel: fax: Referral ID Status Reason Start Date Expiration Date Visits Re quested Visits Authorized [id number] 07/13/2017 07/13/2018 1 1 Encounter Details Date Type Department Care Team (Latest Contact Info) Description 07/17/2017 11:19 AM EST - 07/17/2017 11:59 PM [facility] Hospital Encounter [place] EKG [facility] [address] [place] [address] Adina Santiago APRN [address] [place] [address] [address] [place] [address] Discharge Disposition: Home or Self Care Social [...] of Assessment Author No 07/11/2017 9:14 AM Riay Pérez RMA * Because of a physical, [...] Riya Pérez RMA documented in this encounter Medications at Time of Discharge Nebulizer Accessories (ALL FLOW 4000 KIT) [facility] Formulary equivalent 1 Each [...] AM EST Clinical Support ANTOLIN Burnette [address] [place] [phone] 11/19/2024 1:40 PM EDT Office Visit SE[facility] Neurology [facility] [address] [facility] [place] [address] Lyndsay Brewer, DO [address] [place] [address] documented as of this encounter [...] Associated Diagnosis Comments EK EKG 12 LEAD Routine 07/17/2017 11:19 AM EST Preop testing HTN (hypertension), malignant documented in this encounter Results * EK EKG 12 LEAD (07/17/2017 11:19 AM EST) Anatomical Region Laterality Modality Electrocardiogra phy 07/17/2017 11:2 4 AM EST Impressions 07/17/2017 3:40 PM EST ? Stationary ECG Study ?[facility] ? Interpretive Statements ? SINUS RHYTHM INFERIOR AND ANTEROLATERAL ST ELEVATION - POSSIBLE EARLY REPOLARIZATION - NEED TO ALSO CONSIDER ACUTE INJURY OR PERICARDITIS NO OLD EKGS FOR COMPARISON Electronically Signed On 07-17-2017 15:39:56 EST by Thomas Heath MD Narrative Procedure Note Thomas Heath MD - 07/17/2017 IMPRESSION Stationary ECG Study [facility] Interpretive Statements SINUS RHYTHM INFERIOR AND ANTEROLATERAL ST ELEVATION - POSSIBLE EARLY REPOLARIZATION- NEED TO ALSO CONSIDER ACUTE INJURY OR PERICARDITIS NO OLD EKGS FOR COMPARISON Electronically Signed On 07-17-2017 15:39:56 EST by Thomas Heath MD us Adina Santiago APRN IMG ECG ORDERABLES Final Res ult documented in this encounter Visit Diagnoses Not on filedocumented in this encounter Care Teams E M Assembler Relationship Specialty Start Date End Date Michelle Garrido APRN PCP - General Nurse Practitioner 01/09/17 01/14/21 documented as of this encounter
--- OUTSIDE RECORDS SUMMARY | 2024-05-29 15:51 | XMS_ITS | Encounter Summary ---
Author Organization [place] [address] Care Team Providers Care Coat Agent Name Role Phone Michelle Garrido APRN Primary Care Provider Unava ilable Reason for Visit * Reason Comments Medication Refill Encounter Details Date Type Department Care Team (Late st Contact Info) Description 09/26/2017 Refill SEP [address] [place] [address] Michelle Garrido APRN Medication Refill [...] MOUTH NEEDED FOR ERECTILE DYSFUNCTION 90 Tab 09/26/2017 8 documented in this encounter Plan of Treatment Upcoming Encounters Date Type Department Care Team (Late st Contact Info) Description 06/28/2024 9:40 AM EST Clinical Support SEP [address] [place] [address] 11/19/2024 1:40 PM EDT Office Visit SEP Neurology [facility] [address] [place] [address] Lyndsay Brewer DO [address] [place] [address] documented as of this encounter [...] BY MOUTH NEEDED FOR ERECTILE DYSFUNCTION Reorder 06/14/2017 09/26/2017 documented as of this encounter Care Teams Coat Agent Relationship Specialty Start Date End Date Michelle Garrido, TOBACCO WAREHOUSE MANAGER PCP - General Nurse Practitioner 01/09/17 01/14/21 documented as of this encounter
--- OUTSIDE RECORDS SUMMARY | 2024-05-29 15:51 | XMS_ITS | Encounter Summary ---
Author Organization [place] [address] Care Team Providers Care Thermodynamics Professor Name Role Phone Michelle Garrido APRN Primary Care Provider Unava ilable Reason for Visit * Reason Comments Annual Exam Encounter Details Date Type Department Care Team (Late st Contact Info) Description 10/27/2017 9:20 AM EDT Office Visit [facility] [address] [place] [address] Michelle Garrido APRN Screening for deficiency anemia (Primary Dx); Screening for metabolic disorder; Screening, lipid; Screening for thyroid disorder Social History Tobacco [...] Reading Time Taken Comments Blood Pressure 122/80 10/27/2017 9:37 AM EDT Pulse 78 10/27/2017 9:37 AM EDT Temperature 36.7 ??C (98.1 ??F) 10/27/2017 9:37 AM ED T Respiratory Rate - - Oxygen Saturation 98% 10/27/2017 9:37 AM EDT Inhaled Oxygen Concentration - - Weight 85.3 kg (188 lb) 10/27/2017 9:37 AM EDT Height 170.2 cm (5' 7 ) 10/27/2017 9:37 AM EDT Body Mass Index 29.44 10/27/2017 9:37 AM EDT documented in this encounter Functional [...] this encounter Progress Notes * Michelle Garrido, COMPUTER SYSTEMS ANALYST - 10/27/2017 9:20 AM EDT Vitals: 10/27/17 0937 BP: 122/80 Pulse: 78 Temp: 98.1 ??F (36.7 ??C) TempSrc: Oral SpO2: 98% Weight: 188 lb (85.3 kg) Height: 5' 7 (1.702 m) Chief Complaint Patient presents with ??? Annual Exam HPI: Medicare Wellness Assessment Flowsheet Version: Pt is fasting for BW. Pt is interested in the shingles vaccine, he states that his has shingles currently and wants to know if he should get it. Mr. Whitlock is a 51 y.o. male here for an Subsequent Annual Medicare Wellness Assessment. Below are the results from wellness category assessments administered throughout the year compiled for review as part of today's assessment. Fall Risk Assessment Has the patient had [...] have rugs or runners in the home?: Yes Does the patient have grab bars in the bathroom?: No Does the patient have handrails for all inside or outside stairs?: No (no stairs) (In office Assessment Only): Is the patient able to ambulate without assistance/device and with a gait steady?: Yes (In office Assessment Only): Is the patient able to get out of the exam chair and ambulate steadilyin less than 30 second?: Yes Functional Status Assessment Functional Level: self care Functional Mobility Assessment: independent w/o assist device Assessment of transportation needs: still drives most of the time Functional Activities of Daily Living Limitations: No issues Activities of Daily Living Assistive Device Assessment Assistive Devices: None Osteoporosis Screening Assessment Has the patient had a DEXA scan in the past 2 years?: Not applicable (male) Abnormal Pains Assessment Excluding what you would consider normal aches and pains for your age and medical condition, do youhave any unusual or worrisome pains?: No PHQ Depression Screening Results Little interest or pleasure in doing things: 0 Feeling down, depressed, or hopeless: 0 PHQ-2 Total Score: 0 PHQ-9 Total Score: 0 Advanced Directive Evaluation Does the patient have an Advanced Directive?: No Advance Care Planning Guide Given?: Yes (For Dementia Screening below can use either AD-8 or Mini Cog. Doesn't require both.) AD-8 Dementia Screening tool results Mini Cog Dementia Screening tool results No exam data present No results found for this visit on 10/27/17. Patient Active Problem List Diagnosis ??? Hip pain, left ??? HTN (hypertension), malignant ??? Eczema ??? OA (osteoarthritis) ??? Asthma ??? EPHRAIM (generalized anxiety disorder) ??? Bipolar disorder in remission (HCC) ??? BPH with urinary obstruction ??? Status post left hip replacement ??? IBS (irritable bowel syndrome) Past Medical History: Diagnosis Date ??? Arthritis [...] REVISION-ANTERIOR ; Surgeon: Augie Ramires MD; [facility]; Service: Orthopedics ??? JOINT [...] daily as needed for Pain. 30 Cap 0 ??? CIALIS 5 mg Oral Tablet TAKE [...] on file prior to visit. Social History Social History ??? Marital status: Spouse name: N/A ??? Number of children: N/A ??? Years of education: N/A Social History Main Topics ??? Smoking status: Never Smoker ??? Smokeless tobacco: Current User Types: Snuff ??? Alcohol use No ??? Drug use: Yes Comment: in past ??? Sexual activity: Not Asked Other Topics Concern ??? None Social History Narrative ??? None Family History Problem Relation Age of Onset ??? Diabetes Mother ??? Heart Disease Mother ??? High Blood Pressure Mother ??? High Cholesterol Mother ??? Cancer Father 40 stomach Immunization History Administered Date(s) Administered ??? Influenza Patient Reported 04/21/2010 ??? Influenza Vaccine Quadrivalent 03/10/2016, 05/29/2017 ??? PPD Test 12/20/2010 ??? Pneumococcal Polysaccharide 23 Valent 04/21/2010, 03/10/2016 Health Maintenance Topic Date Due ??? Annual Wellness Exam 10/11/2016 ??? Influenza Vaccine Completed Health Maintenance Due Topic Date Due ??? Annual Wellness Exam 10/11/2016 Patient Care Team: Michelle Garrido APRN as PCP - General (Nurse Practitioner) === Other chronic disease management or a new acute condition was not addressed today as a separateidentifiable service today and the HPI of those conditions may be noted in the body of this note just below this statement with associated pertinent ROS/EXAM/A&P incorporated into the documentation within the appropriate sections of the note. Separate service billing not applicable if the patient is in for Initial Medicare wellness Assessment or as a new patient to the practice. === Additional issues addressed today: Review of Systems Respiratory: Positive for wheezing ( chronic asthma). Negative for cough and shortness of breath. Cardiovascular: Negative for chest pain, palpitations and leg swelling. Gastrointestinal: Negative for abdominal pain and blood in stool. Genitourinary: Negative for difficulty urinating. Skin: Negative. Neurological: Negative for dizziness, light-headedness and headaches. Psychiatric/Behavioral: Negative for dysphoric mood and sleep disturbance. The patient is not nervous/anxious. Physical Exam See time date stamps in the EMR for other pertient history components reviewed as part of today's encounter. [facility] Documentation Medication Compliance: Compliant all the time Understanding of Current Medications: Good Medication Compliance Barriers: None or N/A Self-Management Tools: N/A, no chronic conditions Self-Management Ability: Good Willingness to Adopt Healthy Behaviors: Good Potential Barriers to completing treatment plans today: No significant barriers [facility] Flowsheet was completed/reviewed as part of today's visit. Educated patient regarding the diagnosis, medication/treatment, goals, self- management tools and instructions based on their care plan. They verbalized understanding of the education given on the After Visit Summary [AVS] for today's visit. A copy of the AVS was provided either in writing and/or via [employer]. A new medicine was not prescribed on this visit. Assessment Diagnoses and all orders for this visit: Screening for deficiency anemia - CBC WITH DIFF; Future Screening for metabolic disorder - COMPREHENSIVE METABOLIC PANEL; Future Screening, lipid - LIPID PANEL REFLEX; Future Screening for thyroid disorder - TSH REFLEX; Future * Cherry Hilliard CPT, CMA - 10/27/2017 9:20 AM EDT Venipuncture in the left antecubital vein with 21 gauge needle, length 1 1/2 inch. documented in this encounter Plan of Treatment Upcoming Encounters Date Type Department Care Team (Late st Contact Info) Description 06/28/2024 9:40 AM EST Clinical Support ANTOLIN [place] [address] [place] [phone] 11/19/2024 1:40 PM EDT Office Visit SEP Neurology [facility] [address] [place] [address] Lyndsay Brewer DO [address] [place] [address] documented as of this encounter Goals [...] Associated Diagnosis Comments LIPID PANEL REFLEX Routine 10/27/2017 10 :22 AM EDT Screening, lipid TSH REFLEX Routine 10/27/2017 10:22 AM EDT Screening for thyroid disorder CBC WITH DIFF Routine 10/27/2017 10:22 AM EDT Screening for deficiency anemia COMPREHENSIVE METABOLIC PANEL Routine 10/27/2017 10:22 AM EDT Screening for metabolic disorder documented in this encounter Results * TSH REFLEX (10/27/2017 10:22 AM EDT) TSH Reflex 0.994 0.270 - 4.200 mcIU/mL 10/27/2017 5:51 PM EDT [facility] Blood VENOUS BLOOD / Unknown Venipuncture / Unknown 10/27/2017 10:22 AM EDT 10/27/2017 10:22 AM EDT us Michelle Garrido APRN CHEMISTRY ORDERABLES Final R esult [facility] [address] [place], [place] [id number] * (ABNORMAL) LIPID PANEL REFLEX (10/27/2017 10:22 AM EDT) Cholesterol 203(H) <=200 mg/dL 10/27/2017 4:11 PM EDT [facility] Comment: < 200 ?Desirable 200 - 239 ? Borderline High >= 240 ?High Triglyceride 70 <=150 mg/dL 10/27/2017 4:11 PM EDT [facility] Comment: < 150 ? Normal 150 - 199 ?Borderline High 200 - 499 ?High ??>= 500 ? Very High HDL 48 >=40 mg/dL 10/27/2017 4:11 PM EDT [facility] Comment: ??> 60 ?Optimal 40 - 60 ?Acceptable ?? < 40 ?Low LDL Calculated 141(H) <=100 mg/dL 10/27/2017 4:11 PM EDT [facility] Non-HDL-C Calculated 155(H) <=129 mg/dL 10/27/2017 4:11 PM EDT [facility] Comment: <130 ?Desirable 130-159 Above Desirable 160-189 Borderline High 190-219 High >= 220 ??Very High Blood Venipuncture / Unknown 10/27/2017 10:22 AM EDT 10/27/2017 10:22 AM EDT us Michelle Garrido COMPUTER SYSTEMS ANALYST CHEMISTRY ORDERABLES Final R esult [facility] [address] [place] [address] * COMPREHENSIVE METABOLIC PANEL (10/27/2017 10:22 AM EDT) Sodium 137 136 - 145 mmol/L 10/27/2017 4:11 PM EDT [facility] Potassium 4.3 3.5 - 5.0 mmol/L 10/27/2017 4:11 PM EDT [facility] Chloride 100 98 - 107 mmol/L 10/27/2017 4:11 PM EDT [facility] Total CO2 25 22 - 29 mmol/L 10/27/2017 4:11 PM EDT [facility] Anion Gap 12 7 - 16 mmol/L 10/27/2017 4:11 PM EDT [facility] Calcium 9.6 8.6 - 10.2 mg/dL 10/27/2017 4:11 PM EDT [facility] Glucose Lvl 90 74 - 100 mg/dL 10/27/2017 4:11 PM EDT [facility] BUN 17 6 - 20 mg/dL 10/27/2017 4:11 PM [facility] Creatinine 0.97 0.67 - 1.30 mg/dL 10/27/2017 4:11 PM [facility] Albumin 4.6 3.5 - 5.2 gm/dL 10/27/2017 4:11 PM [facility] Total Protein 6.9 6.4 - 8.3 gm/dL 10/27/2017 4:11 PM [facility] Bili Total 0.3 0.1 - 1.4 mg/dL 10/27/2017 4:11 PM [facility] ALT 23 <=41 IU/L 10/27/2017 4:11 PM [facility] AST 28 <=40 IU/L 10/27/2017 4:11 PM [facility] Alk Phos 78 40 - 129 IU/L 10/27/2017 4:11 PM [facility] GFR Afr Am 106 mL/min/1.7 3 m2 10/27/2017 4:11 PM [facility] GFR Non Afr Am 91 mL/min/1.7 3 m2 10/27/2017 4:11 PM [facility] Comment: GFR Afr Am and GFR Non Afr Am calculated using CKD-EPI equation. ?? GFR Category ?GFR(mL/min/1.73 m??) ? Kidney Function G1 ?>=90 ?Normal or high G2 ?60-89 ? Mildly decreased G3a ? 45-59 ? Mildly to moderately decreased G3b ? 30-44 ? Moderately to severely decreased G4 ?15-29 ? Severely decreased G5 ?<15 ? Kidney Failure Blood Venipuncture / Unknown 10/27/2017 10:22 AM EDT 10/27/2017 10:22 AM EDT us Michelle Garrido COMPUTER SYSTEMS ANALYST CHEMISTRY ORDERABLES Final R esult [facility] [address] [place] [id number] * CBC WITH DIFF (10/27/2017 10:22 AM EDT) WBC 5.8 4.0 - 11.0 x10(3)/mcL 10/27/2017 3:28 PM EDT [facility] RBC 4.81 4.30 - 5.81 x10(6)/mcL 10/27/2017 3:28 PM EDT [facility] Hgb 15.4 13.5 - 17.1 gm/dL 10/27/2017 3:28 PM EDT [facility] Hct 45.0 38.9 - 51.6 % 10/27/2017 3:28 PM EDT [facility] MCV 93.4 82.5 - 99.8 fL 10/27/2017 3:28 PM EDT [facility] MCH 32.0 27.0 - 34.3 pg 10/27/2017 3:28 PM EDT [facility] MCHC 34.2 32.1 - 35.3 gm/dL 10/27/2017 3:28 PM EDT [facility] RDW 13.2 11.5 - 15.0 % 10/27/2017 3:28 PM EDT [facility] Platelet 186 144 - 423 x10(3)/[facility] 10/27/2017 3:28 PM EDT [facility] MPV 9.1 6.8 - 10.8 fL 10/27/2017 3:28 PM EDT [facility] Neut Percent 71.1 % 10/27/2017 3:28 PM EDT [facility] Lymph Percent 21.8 % 10/27/2017 3:28 PM EDT [facility] [place] Percent 5.8 % 10/27/2017 3:28 PM EDT [facility] Eos Percent 0.8 % 10/27/2017 3:28 PM EDT [facility] Baso Percent 0.5 % 10/27/2017 3:28 PM EDT [facility] Neut # 4.1 1.8 - 7.7 x10(3)/[facility] 10/27/2017 3:28 PM EDT [facility] Lymph # 1.3 0.6 - 4.8 x10(3)/[facility] 10/27/2017 3:28 PM EDT [facility] [place] # 0.3 0.0 - 1.3 x10(3)/[facility] 10/27/2017 3:28 PM EDT [facility] Eos# 0.0 0.0 - 0.5 x10(3)/[facility] 10/27/2017 3:28 PM EDT [facility] Baso # 0.0 0.0 - 0.2 x10(3)/[facility] 10/27/2017 3:28 PM EDT [facility] Blood Venipuncture / Unknown 10/27/2017 10:22 AM EDT 10/27/2017 10:22 AM EDT us Michelle Garrido APRN HEMATOLOGY ORDERABLES Final Result [facility] [address] [place], [place] [id number] documented in this encounter Visit Diagnoses Diagnosis Screening for deficiency anemia- Primary Screening for other and unspecified deficiency anemia Screening for metabolic disorder Screening, lipid Screening for lipoid disorders Screening for thyroid disorder documented in this encounter Historical Medications * This list may reflect changes made after this encounter. multivitamin Oral Capsule Take 1 Cap by mouth daily. 04/15/2019 added in this encounter Care Teams Thermodynamics Professor Relationship Specialty Start Date End Date Michelle Garrido APRN PCP - General Nurse Practitioner 01/09/17 01/14/21 documented as of this encounter
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
--- OUTSIDE RECORDS SUMMARY | 2024-05-29 15:51 | XMS_ITS | Encounter Summary ---
Author Organization [place] [address] Care Team Providers Care Electrical Transmission Engineer Name Role Phone Michelle Garrido APRN Primary Care Provider Unava ilable Reason for Visit * Reason Comments Medication Refill Encounter Details Date Type Department Care Team (Late st Contact Info) Description 08/17/2017 Refill [facility] [address] [place] [address] Reginald Leigh MD [address] [place] [address] Medication Refill Social History Tobacco [...] No 07/11/2017 9:14 AM AIMEE Choi Riya sheila Garcia, RMA * Because of a physical, mental [...] BY MOUTH TWICE A DAY 60 Tab 08/18/2017 09/20/2017 documented in this encounter Miscellaneous Notes * Telephone Encounter - Reginald Leigh MD - 08/18/2017 12:07 PM EST I sent in viberzi. * Telephone Encounter - Michelle Phillips MA - 08/18/2017 10:00 AM EST GUS 07/11/17 documented in this encounter Plan of Treatment Upcoming Encounters Date Type Department Care Team (Late st Contact Info) Description 06/28/2024 9:40 AM EST Clinical Support [facility] [address] [place] [phone] 11/19/2024 1:40 PM EDT Office Visit [facility] Neurology [facility] [address] [place] [address] Lyndsay Brewer DO [address] [place] [address] documented as of this encounter [...] by mouth 2 times daily. Reorder 07/19/2017 08/17/2017 documented as of this encounter Care Teams Electrical Transmission Engineer Relationship Specialty Start Date End Date Michelle Garrido APRN PCP - General Nurse Practitioner 01/09/17 01/14/21 documented as of this encounter
--- OUTSIDE RECORDS SUMMARY | 2024-05-29 15:52 | XMS_ITS | Encounter Summary ---
Author Organization [place] [address] Care Team Providers Care Refinisher Name Role Phone Michelle Garrido APRN Primary Care Provider Unava ilable Reason for Visit * Reason Comments Medication Refill Encounter Details Date Type Department Care Team (Late st Contact Info) Description 02/28/2017 Refill [facility] [address] [address] Michelle Garrido APRN Medication [...] on file documented as of this encounter Ordered Prescriptions Prescription Sig Dispense Quantity Refills Last Filled Start Date End Date VIBERZI 100 mg Oral TabletIndications: Irritable bowel syndrome with diarrhea TAKE 1 TABLET BY MOUTH 2 TIMES A DAY 60 Tab 02/28/2017 04/01/2017 documented in this encounter Miscellaneous Notes * Telephone Encounter - Farzana Soria MA - 02/28/2017 1:13 PM EDT Phoned in, pt advised. * Telephone Encounter - Farzana Soria MA - 02/28/2017 9:52 AM EDT DENZEL: as expected 02/28/17 LRF: 01/25/17 GUS: 01/25/17 documented in this encounter Plan of Treatment Upcoming Encounters Date Type Department Care Team (Late st Contact Info) Description 06/28/2024 9:40 AM EST Clinical Support [facility] [address] [place] [phone] 11/19/2024 1:40 PM EDT Office Visit [facility] Neurology [facility] [address] [place] [address] Lyndsay Brewer, [address] [place] [address] documented as of this encounter [...] Reason Start Date End Da te eluxadoline 100 mg Oral TabletIndications:Irritab le bowel syndrome with diarrhea Take 100 mg by mouth 2 times daily. 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
--- OUTSIDE RECORDS SUMMARY | 2024-05-29 15:52 | XMS_ITS | Encounter Summary ---
Author Organization [place] [address] Care Team Providers Care Granulizing Machine Operator Name Role Phone Michelle Garrido APRN Primary Care Provider Unava ilable Reason for Visit * Reason Onset Date Comments Medication Problem 04/05/2017 Prior Authorization 04/05/2017 cialis Encounter Details Date Type Department Care Team (Late st Contact Info) Description 04/05/2017 Telephone [facility] [address] [place] [address] Michelle Garrido APRN Medication Problem; Prior Authorization (cialis) Social History Tobacco Use Types Packs/Day Years [...] on file documented as of this encounter Miscellaneous Notes * Telephone Encounter - Farzana Soria MA - 04/05/2017 1:40 PM EDT PA approved for Cialis 5mg from today until 04/05/18 Pt advised. * Telephone Encounter - Lizbeth Pelaez - 04/05/2017 1:23 PM EDT [facility] [place] says they need a pa on his cialis. Will you do this? documented in this encounter Plan of Treatment Upcoming Encounters Date Type Department Care Team (Late st Contact Info) Description 06/28/2024 9:40 AM EST Clinical Support [facility] [address] [place] [phone] 11/19/2024 1:40 PM EDT Office Visit [facility] Neurology [facility] [address] [place] [phone] Lyndsay Brewer, DO [address] [place] [address] documented as of this encounter Goals Goal Patient Goal Type Associated Problems Recent Progress Patient-Stated? Author Blood Pressure < 140/90 Blood Pressure 134/84(2023 1:16 PM EST) No Yana Choi RMA Eat better, exercise, reach an ideal body weight General No Yana hCoi RMJane Stay Tobacco Free Lifestyle No Yana Choi RMA documented as of this encounter Visit Diagnoses Not on filedocumented in this encounter Care Teams Granulizing Machine Operator Relationship Specialty Start Date End Date Michelle Garrido APRN PCP - General Nurse Practitioner 01/09/17 01/14/21 documented as of this encounter
--- OUTSIDE RECORDS SUMMARY | 2024-05-29 15:52 | XMS_ITS | Encounter Summary ---
Author Organization [place] [address] Care Team Providers Care Mobile Plant Operators Name Role Phone Michelle Garrido APRN Primary Care Provider Unava ilable Reason for Visit * Reason Comments Medication Refill Encounter Details Date Type Department Care Team (Late Contact Info) Description 05/02/2017 Refill [facility] [address] [place] [address] Michelle Garrido APRN Medication Refill Social [...] on file documented as of this encounter Plan of Treatment Upcoming Encounters Date Type Department Care Team (Late Contact Info) Description 06/28/2024 9:40 AM EST Clinical Support [facility] [address] [employer] [address] [place] [phone] 11/19/2024 1:40 PM EDT Office Visit [facility] Neurology [facility] [address] [place] [address] Lyndsay Brewer DO [address] [facility] [address] [place] [address] documented as of this encounter [...] syndrome documented in this encounter Care Teams Mobile Plant Operators Relationship Specialty Start Date End Date Michelle Garrido APRN PCP - General Nurse Practitioner 01/09/17 01/14/21 documented as of this encounter
--- OUTSIDE RECORDS SUMMARY | 2024-05-29 15:52 | XMS_ITS | Encounter Summary ---
Author Organization [facility] Address [facility] [place] [address] Care Team Providers Care Crinkling Machine Operator Name Role Phone Darlin Garridoily Anusha KENT Primary Care Provider Willie aguila Encounter Details Date Type Department Care Team (Latest Contact Info) Description 05/09/2017 10:00 AM EST - 05/09/2017 11:59 PM EST Hospital Encounter [facility] [place] [address] Pain in left hip; Presence of left [...] on file documented as of this encounter Medications at Time of Discharge Nebulizer Accessories (ALL FLOW 4000 KIT) [facility] equivalent 1 Each 0 06/27/2012 documented as of this encounter Discharge Disposition Disposition Code Departure Means Destination Home or Self Care documented in this encounter Plan of Treatment Upcoming Encounters Date Type Department Care Team (Late st Contact Info) Description 06/28/2024 9:40 AM EST Clinical Support SEP Yomaira SEPULVEDA [address] [place] [phone] 11/19/2024 1:40 PM EDT Office Visit SEP Neurology [facility] [address] [place] [address] Lyndsay Brewer, [address] [employer] [place] [address] documented as of this encounter Goals Goal [...] Diagnosis Comments CHROMIUM - REF LAB Routine 05/09/2017 10 :55 AM EST Pain in left hip Presence of left artificial hip joint COBALT - REF LAB Routine 05/09/2017 10:5 5 AM EST Pain in left hip Presence of left artificial hip joint SEDIMENTATION RATE AUTOMATED Routine 05/09/2017 10:31 AM EST Pain in left hip CBC WITH DIFF Routine 05/09/2017 10:31 AM EST Pain in left hip C-REACTIVE PROTEIN Routine 05/09/2017 10 :31 AM EST Pain in left hip documented in this encounter Results * (ABNORMAL) COBALT - REF LAB (05/09/2017 10:55 AM EST) [place] 13.0(H) <=1.0 ug/L 05/11/2017 5:14 AM EST [employer] Comment: If uncertainty exists regarding the type of blood tube used to collect this specimen, testing should be repeated with a second specimen collected in a certified metal-free tube. Elevated results determined with specimens collected in noncertified metal-free blood tubes may reflect contamination of the tube itself. INTERPRETIVE INFORMATION: [place], Serum or Plasma Serum cobalt levels can be used in the assessment of occupational exposure or toxic ingestion and is the preferred specimen type for evaluating metal ion release from pbfti-ni-rccov joint arthroplasty. Serum cobalt levels may be increased in asymptomatic patients with dmcqm-tz-wxacc prosthetics and should be considered in the context of the overall clinical scenario. Symptoms associated with cobalt toxicity vary based on route of exposure, and may include cardiomyopathy, allergic dermatitis, pulmonary fibrosis, cough and dyspnea. Test developed and characteristics determined by [facility]. See Compliance Statement B: [employer] Performed by [facility], [address] [place] [address] [email or web address], Pal Zaragoza MD, Lab. Director Blood Venipuncture / Unknown 05/09/2017 10:55 AM EST 05/09/2017 10:55 AM EST us Augie Ramires MD CHEMISTRY ORDERABLES Final Result [facility] [address] [place] [address] * (ABNORMAL) CHROMIUM - REF LAB (05/09/2017 10:55 AM EST) Chromium 9.5(H) <=5.0 ug/L 05/10/2017 2:39 PM EST [employer] Comment: If uncertainty exists regarding the type of blood tube used to collect this specimen, testing should be repeated with a second specimen collected in a certified metal-free tube. Elevated results determined with specimens collected in noncertified metal-free blood tubes may reflect contamination of the tube itself. INTERPRETATION INFORMATION: Chromium, Serum Serum chromium is the preferred specimen type for evaluating metal ion release from psukr-mp-zirip joint arthroplasty. Serum chromium levels may be increased in asymptomatic patients with ytkny-sn-ixzpg prosthetics and should be considered in the [...] necrosis. Test developed and characteristics determined by [facility]. See Compliance Statement B: [employer] Performed by [facility], [address] [place] [address] [email or web address], Pal Zaragoza MD, Lab. Director Blood Venipuncture / Unknown 05/09/2017 10:55 AM EST 05/09/2017 10:55 AM EST Augie Ramires MD CHEMISTRY ORDERABLES Final Result Performing Organization Address [facility] de Phone Number [employer] [facility] [address] [place] [address] * C-REACTIVE PROTEIN (05/09/2017 10:31 AM EST) CRP 2.59 <=5.00 mg/L 05/09/2017 11:10 AM EST [facility] Blood Venipuncture / Unknown 05/09/2017 10:31 AM EST 05/09/2017 10:31 AM EST us Augie Ramires MD CHEMISTRY ORDERABLES Final Result Performing Organization Address [facility] de Phone Number [facility] [address] [place] [address] * SEDIMENTATION RATE AUTOMATED (05/09/2017 10:31 AM EST) Sed Rate 3 0 - 15 mm/hr 05/09/2017 5:41 PM EST [facility] Blood Venipuncture / Unknown 05/09/2017 10:31 AM EST 05/09/2017 10:31 AM EST Narrative [facility] - 05/09/2017 5:41 PM EST This is a new method using Rheology technology. This is a direct measurement and consequently is less affected by the hematocrit. This advantage explains any result differences observed in comparison with our previous modified Westergren method. us Augie Ramires MD HEMATOLOGY ORDERABLE S Final Result Performing Organization Address [facility] de Phone Number [facility] [address] [place] [address] * CBC WITH DIFF (05/09/2017 10:31 AM EST) [facility] WBC 6.6 4.0 - 11.0 x10(3)/mcL 05/09/2017 10:56 AM [facility] RBC 4.75 4.30 - 5.81 x10(6)/mcL 05/09/2017 10:56 AM [facility] Hgb 15.4 13.5 - 17.1 gm/dL 05/09/2017 10:56 AM [facility] Hct 44.5 38.9 - 51.6 % 05/09/2017 10:56 AM [facility] MCV 93.8 82.5 - 99.8 fL 05/09/2017 10:56 AM [facility] MCH 32.5 27.0 - 34.3 pg 05/09/2017 10:56 AM [facility] MCHC 34.7 32.1 - 35.3 gm/dL 05/09/2017 10:56 AM [facility] RDW 12.9 11.5 - 15.0 % 05/09/2017 10:56 AM [facility] Platelet 188 144 - 423 x10(3)/mcL 05/09/2017 10:56 AM [facility] MPV 8.4 6.8 - 10.8 fL 05/09/2017 10:56 AM [facility] Neut Percent 75.7 % 05/09/2017 10:56 AM [facility] Lymph Percent 16.8 % 05/09/2017 10:56 AM EST [facility] [place] Percent 5.9 % 05/09/2017 10:56 AM [facility] Eos Percent 0.3 % 05/09/2017 10:56 AM [facility] Baso Percent 1.3 % 05/09/2017 10:56 AM [facility] Neut # 5.0 1.8 - 7.7 x10(3)/mcL 05/09/2017 10:56 AM [facility] Lymph # 1.1 0.6 - 4.8 x10(3)/mcL 05/09/2017 10:56 AM [facility] [place] # 0.4 0.0 - 1.3 x10(3)/mcL 05/09/2017 10:56 AM EST [facility] Eos# 0.0 0.0 - 0.5 x10(3)/mcL 05/09/2017 10:56 AM EST [facility] Baso # 0.1 0.0 - 0.2 x10(3)/mcL 05/09/2017 10:56 AM EST [facility] Blood Venipuncture / Unknown 05/09/2017 10:31 AM EST 05/09/2017 10:31 AM EST us Augie Ramires MD HEMATOLOGY ORDERABLE S Final Result Performing Organization Address City/State/[facility] Co de Phone Number [facility] [address] [place] [address] documented in this encounter Visit Diagnoses Diagnosis Pain in left hip Pain in joint, pelvic region and thigh Presence of left artificial hip joint Hip joint replacement by other means documented in this encounter Care Teams Crinkling Machine Operator Relationship Specialty Start Date End Date Michelle Garrido APRN PCP - General Nurse Practitioner 01/09/17 01/14/21 documented as of this encounter
--- OUTSIDE RECORDS SUMMARY | 2024-05-29 15:52 | XMS_ITS | Encounter Summary ---
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 [address] Phone: tel: fax: Referral ID Status Reason Start Date Expiration Date Visits Re quested Visits Authorized [id number] 07/13/2017 07/13/2018 1 1 Encounter Details Date Type Department Care Team (Latest Contact Info) Description 07/17/2017 10:30 AM EST - 07/17/2017 11:18 AM EST Hospital Encounter EDG PRE-ADMIT TESTING [facility] [place] [address] 1, Edg Pat Nurse Bleeding disorder (HCC) (Primary Dx); Preop testing; HTN (hypertension), malignant Discharge Disposition: Home or Self Care Anesthesia Record Procedure Summary Procedure Name Responsible [...] acknowledgement of understanding from the receiving PACU/ICU senior project leader/team lead [id number] An Stop Meds * Agents No agents on file. * Blood No blood administrations on file. [...] procedure documentation); Removal Date: 07/26/17; Removal Time: 1427 07/26/17 1127 by Garry Choi MD 07/26/17 1427 [...] Sign Reading Time Taken Comments Blood Pressure 121/87 07/17/2017 10:53 AM EST Pulse 75 07/17/2017 10:53 AM EST Temperature 36.6 ??C (97.8 ??F) 07/17/2017 10:[address] Respiratory Rate 16 07/17/2017 10:53 AM EST Oxygen Saturation 97% 07/17/2017 10:53 AM EST Inhaled Oxygen Concentration - - Weight 89.8 kg (198 lb) 07/17/2017 10:53 AM EST Height 170.2 cm (5' 7 ) 07/17/2017 10:53 AM EST Body Mass Index 31.01 07/17/2017 10:53 AM EST documented in this encounter Functional [...] Riya Pérez RMA documented in this encounter Discharge Instructions * Discharge Instructions* Jade Maddox RN - 07/17/2017 11:34 AM EST PREOPERATIVE INFORMATION AND INSTRUCTIONS TO PREPARE FOR SURGERY/PROCEDURE Date of Surgery 07/26/2017 1. For your SAFETY do not eat any food or drink anything after midnight. This includes chewing gum,mints, candy, chewing tobacco and dip. You may have water only 4 hrs prior to surgery start time unless instructed by surgeon. 2. You may brush your teeth and gargle the morning of surgery. Do not swallow water. 3. Take the following pills with a small sip of water on the morning of surgery: Use/bring inhaler 4. Aspirin, Coumadin, Ibuprofen, Plavix, Fish Oil, Vitamin E, any Supplements and Anti-Inflammatoryproducts may be stopped as directed by your physician. 5. It is also for your SAFETY that you do not smoke or use any type of tobacco products within 24 hours prior to surgery. Smoking will also slow your rate of healing, so it is advised that you do notsmoke during the healing process. No beer, wine or alcohol 24 hours prior to surgery. 6. It is important that on the day of surgery that you have a PUTTY MIXER AND APPLIER which is someone, 18 years or older, who can accompany you and remain in the facility for the duration of your surgery. Theyshould be available for the PERIOPERATIVE TEAM which includes your surgeon to COMMUNICATE with before, during, and after your surgery. Someone should also remain with you for 24 hours post surgery and you may not drive to make sure you are SAFE during that time. 7. A parent must accompany a child scheduled for surgery and plan to stay at the hospital until thechild is discharged. If your takes a special type of nipple or baby bottle, please bring that with you. If your child has a favorite security item such as a blanket or a special toy, please feel free to bring that with you. 8. Please do not bring children with you to the hospital. 9. Please wear simple, loose fitting clothing to the hospital. Do not bring valuables (money, credit cards, check books, etc.) or wear any jewelry on day of surgery. Remove all body piercings prior to arrival. All jewelry must be removed to avoid injury. We will not tape wedding rings/bands. 10. If you have dentures, they may be removed before going to the OR, we will provide a container for them. If you wear contact lenses or glasses, they will be removed; please bring a case for them. 11. Do not remove hearing aids, you will wear them to surgery. 12. Shower the night before surgery. First shampoo with your regular shampoo and wash your face with your usual soap. Rinse all residue off. Suds up with Hibiclens from the neck down. Turn the showeroff and continue to gently lather for 5 minutes. After 5 minutes turn the shower back on, rinse offand pat dry. Do not use any other soap, lotion, powder or deodorant after the shower. 13. If you have a Living Will and Durable Power of [place] for Healthcare, please bring a copy. 14. For your SAFETY notify your Surgeon if you develop any illness between now and surgery time, cough, cold, fever, sore throat, nausea, vomiting, rash, etc. 15. If you receive a blood bracelet remember to bring it with you on the day of surgery. 16. Bring your photo ID and insurance card. If your insurance coverage requires a co-payment or deductible, please bring the payment with you. We accept Visa, MasterCard, Sighter and [employer] credit cards. Our Customer Service Representatives will be available by telephone for any questions regarding financial issues at [phone]. 17. Other . 18. If you wear CPAP or BIPAP, please bring your mask and the machine settings (not the actual machine) with you to the hospital on the day of your procedure. The hospital will supply a machine to use during your hospital stay. 19. If you wear oxygen, please bring it with you to use during your travel to and from the hospital. Following your admission, the hospital will supply oxygen for your use. I acknowledge receipt of the instructions indicated above. If you have any questions or concerns please feel free to call the contact number. We want to make sure you feel SAFE and have an EXCELLENT experience while you are here. [facility] Day [facility] - [place] at [phone]; [place] SDS: Patient Entrance 3A, take [place] elevator to 2nd floor documented in this encounter Medications at Time of Discharge Nebulizer Accessories (ALL FLOW 4000 KIT) [facility] equivalent 1 Each 0 06/27/2012 acetaminophen [...] or Self Care documented in this encounter Nursing Notes * Monae Heard, RN - 07/14/2017 8:51 AM EST Pt states he does not want any narcotics-heroin addict-clean since 2012 documented in this encounter Plan of Treatment Upcoming Encounters Date Type Department Care Team (Late st Contact Info) Description 06/28/2024 9:40 AM EST Clinical Support [facility] [address] [place] [address] [phone] 11/19/2024 1:40 PM EDT Office Visit SEP Neurology [facility] [address] [place] [address] Lyndsay Brewer DO [address] [place] [address] documented as of this encounter [...] Procedure Name Priority Date/Time Associated Diagnosis Comments BB HISTORY CHECK Routine 07/17/2017 12:2 4 PM EST Bleeding disorder (HCC) SURGERY DATE Routine 07/17/2017 12:24 PM EST Bleeding disorder (HCC) STAPHYLOCOCCUS AUREUS SCREEN Routine 07/17/2017 12:24 PM EST PREADMISSION TYPE AND SCREEN Routine 07/17/2017 12:24 PM EST Bleeding disorder (HCC) ABORH Routine 07/17/2017 12:24 PM EST Bleeding disorder (HCC) URINALYSIS Routine 07/17/2017 12:24 PM EST Bleeding disorder (HCC) PT / INR Routine 07/17/2017 12:24 PM EST Bleeding disorder (HCC) CBC WITH DIFF Routine 07/17/2017 12:24 PM EST Bleeding disorder (HCC) ANTIBODY SCREEN IGG Routine 07/17/2017 1 2:24 PM EST Bleeding disorder (HCC) COMPREHENSIVE METABOLIC PANEL Routine 07/17/2017 12:24 PM EST Bleeding disorder (HCC) EK EKG 12 LEAD Routine 07/17/2017 11:19 AM EST Preop testing HTN (hypertension), malignant documented in this encounter Results * BB HISTORY CHECK (07/17/2017 12:24 PM EST) BB HISTORY CHECK (1) Previous History OK 07/17/2017 1:20 PM EST [facility] Blood VENOUS BLOOD / Unknown Venipuncture / Unknown 07/17/2017 12:24 PM EST 07/17/2017 12:47 PM EST Augie Ramires MD BLOOD BANK ORDERABLE S Final Result Performing Organization Address City/State/[facility] Co de Phone Number [facility] [address] [place] [address] * SURGERY DATE (07/17/2017 12:24 PM EST) Surgery Date (1) Complete 07/17/2017 1:28 PM EST [facility] Blood VENOUS BLOOD / Unknown Venipuncture / Unknown 07/17/2017 12:24 PM EST 07/17/2017 12:47 PM EST Augie Ramires MD BLOOD BANK ORDERABLE S Final Result Performing Organization Address City/[facility]/ZIP Co de Phone Number [facility] [address] [place] [address] * ANTIBODY SCREEN IGG (07/17/2017 12:24 PM EST) ABSC IgG Int Negative 07/17/2017 3:42 PM EST [facility] Blood VENOUS BLOOD / Unknown Venipuncture / Unknown 07/17/2017 12:24 PM EST 07/17/2017 12:47 PM EST us Augie Ramires MD BLOOD BANK ORDERABLE S Final Result Performing Organization Address [facility] Co de Phone Number [facility] [address] [place] [address] * ABORH (07/17/2017 12:24 PM EST) [facility] ABORH Int O POS 07/17/2017 3:3 4 PM EST [facility] Blood VENOUS BLOOD / Unknown Venipuncture / Unknown 07/17/2017 12:24 PM EST 07/17/2017 12:47 PM EST Augie Ramires MD BLOOD BANK ORDERABLE S Final Result Performing Organization Address [facility] Co de Phone Number [facility] [address] [place] [address] * PT / INR (07/17/2017 12:24 PM EST) [facility] PT 10.6 9.7 - 12.5 second(s) 07/17/2017 1:08 PM EST [facility] INR 0.91 0.84 - 1.08 no units 07/17/2017 1:08 PM EST [facility] Comment: Level of Therapy ? Indications ?Target INR Range Standard Dose Treatment and prophylaxis of venous ? 2.0 - 3.0 ? thrombosis, pulmonary embolism High Dose ? High risk patients with mechanical ? 2.5 - 3.5 ? heart valves Blood VENOUS BLOOD / Unknown Venipuncture / Unknown 07/17/2017 12:24 PM EST 07/17/2017 12:47 PM EST us Augie Ramires MD HEMATOLOGY ORDERABLE S Final Result [facility] [address] [place] [address] * COMPREHENSIVE METABOLIC PANEL (07/17/2017 12:24 PM EST) Sodium 141 136 - 145 mmol/L 07/17/2017 1:28 PM [facility] Potassium 4.3 3.5 - 5.0 mmol/L 07/17/2017 1:28 PM [facility] Chloride 99 98 - 107 mmol/L 07/17/2017 1:28 PM EST [facility] Total CO2 26 22 - 29 mmol/L 07/17/2017 1:28 PM [facility] Anion Gap 16 7 - 16 mmol/L 07/17/2017 1:28 PM [facility] Calcium 10.2 8.6 - 10.2 mg/dL 07/17/2017 1:28 PM [facility] Glucose Lvl 87 74 - 100 mg/dL 07/17/2017 1:28 PM [facility] BUN 15 6 - 20 mg/dL 07/17/2017 1:28 PM [facility] Creatinine 1.00 0.67 - 1.30 mg/dL 07/17/2017 1:28 PM [facility] Albumin 4.7 3.5 - 5.2 gm/dL 07/17/2017 1:28 PM [facility] Total Protein 7.7 6.4 - 8.3 gm/dL 07/17/2017 1:28 PM [facility] Bili Total 0.6 0.1 - 1.4 mg/dL 07/17/2017 1:28 PM [facility] ALT 25 <=41 IU/L 07/17/2017 1:28 PM [facility] AST 24 <=40 IU/L 07/17/2017 1:28 PM [facility] Alk Phos 101 40 - 129 IU/L 07/17/2017 1:28 PM [facility] GFR Afr Am 102 mL/min/1.7 3 m2 07/17/2017 1:28 PM [facility] GFR Non Afr Am 88 mL/min/1.7 3 m2 07/17/2017 1:28 PM [facility] Comment: GFR Afr Am and GFR Non Afr Am calculated using CKD-EPI equation. ?? GFR Category ?GFR(mL/min/1.73 m??) ? Kidney Function G1 ?>=90 ?Normal or high G2 ?60-89 ? Mildly decreased G3a ? 45-59 ? Mildly to moderately decreased G3b ? 30-44 ? Moderately to severely decreased G4 ?15-29 ? Severely decreased G5 ?<15 ? Kidney Failure Blood VENOUS BLOOD / Unknown Venipuncture / Unknown 07/17/2017 12:24 PM EST 07/17/2017 12:47 PM EST us Augie Ramires MD CHEMISTRY ORDERABLES Final Result [facility] [address] [place] [address] * (ABNORMAL) CBC WITH DIFF (07/17/2017 12:24 PM EST) WBC 6.7 4.0 - 11.0 x10(3)/mcL 07/17/2017 1:05 PM EST [facility] RBC 4.91 4.30 - 5.81 x10(6)/mcL 07/17/2017 1:05 PM EST [facility] Hgb 16.1 13.5 - 17.1 gm/dL 07/17/2017 1:05 PM EST [facility] Hct 45.3 38.9 - 51.6 % 07/17/2017 1:05 PM EST [facility] MCV 92.1 82.5 - 99.8 fL 07/17/2017 1:05 PM EST [facility] MCH 32.7 27.0 - 34.3 pg 07/17/2017 1:05 PM EST [facility] MCHC 35.5(H) 32.1 - 35.3 gm/dL 07/17/2017 1:05 PM EST [facility] RDW 12.4 11.5 - 15.0 % 07/17/2017 1:05 PM EST [facility] Platelet 146 144 - 423 x10(3)/mcL 07/17/2017 1:05 PM EST [facility] MPV 9.3 6.8 - 10.8 fL 07/17/2017 1:05 PM EST [facility] Neut Percent 70.0 % 07/17/2017 1:05 PM EST [facility] Lymph Percent 21.8 % 07/17/2017 1:05 PM EST [facility] Ritchie Percent 6.4 % 07/17/2017 1:05 PM EST [facility] Eos Percent 1.3 % 07/17/2017 1:05 PM EST [facility] Baso Percent 0.5 % 07/17/2017 1:05 PM EST [facility] Neut # 4.7 1.8 - 7.7 x10(3)/mcL 07/17/2017 1:05 PM EST [facility] Lymph # 1.5 0.6 - 4.8 x10(3)/mcL 07/17/2017 1:05 PM EST [facility] Ritchie # 0.4 0.0 - 1.3 x10(3)/mcL 07/17/2017 1:05 PM EST [facility] Eos# 0.1 0.0 - 0.5 x10(3)/mcL 07/17/2017 1:05 PM EST [facility] Baso # 0.0 0.0 - 0.2 x10(3)/[facility] 07/17/2017 1:05 PM [facility] Blood VENOUS BLOOD / Unknown Venipuncture / Unknown 07/17/2017 12:24 PM EST 07/17/2017 12:47 PM EST us Augie Ramires MD HEMATOLOGY ORDERABLE S Final Result Performing Organization Address City/State/[facility] Co de Phone Number [facility] [address] [place] [address] * URINALYSIS (07/17/2017 12:24 PM EST) UA Color Colorless 07/17/2017 1:43 PM [facility] UA Appear Clear Clear 07/17/2017 1:43 PM [facility] UA Glucose Negative Negative mg/dL 07/17/2017 1:43 PM [facility] UA Ketones Negative Negative mg/dL 07/17/2017 1:43 PM [facility] UA Blood Negative Negative 07/17/2017 1:43 PM [facility] UA pH 7.5 5.0 - 8.0 pH 07/17/2017 1:43 PM [facility] UA Protein Negative Negative mg/dL 07/17/2017 1:43 PM [facility] UA Urobilinogen 0.2 <=1 E.U./dL 07/17/19 18 1:43 PM [facility] UA Nitrite Negative Negative 07/17/2017 1:43 PM EST [facility] UA Leuk Est Negative Negative 07/17/2017 1:43 PM EST [facility] UA Spec Grav 1.010 1.001 - 1.035 no units 07/17/2017 1:43 PM EST [facility] Comment: Reference range valid for random specimens only. Urine URINE SPECIMEN COLLECTION, CLEAN CATCH / Unknown 07/17/2017 12:24 PM EST 07/17/2017 12:47 PM EST Augie Ramires MD URINE ORDERABLES Fin al Result Performing Organization Address [facility] de Phone Number [facility] [address] [place] [address] * STAPHYLOCOCCUS AUREUS SCREEN (07/17/2017 12:24 PM EST) Staph aureus PCR Not Detected Not Detected 07/17/2017 2:42 PM EST [facility] MRSA PCR Not Detected Not Detected 07/17/2017 2:42 PM EST [facility] Swab BOTH ANTERIOR NARES / Unknown 07/17/2017 12:24 PM EST 07/17/2017 12:47 PM EST Narrative [facility] - 07/17/2017 2:42 PM EST Staphylococcus aureus target DNA sequence is not detected. This qualitative assay is intended for the detection of Staphylococcus aureus proprietary sequences for the staphylococcal protein A (spa) gene, the gene for methicillin resistance (mecA), and the staphylococcal cassette chromosome mec (SCCmec) inserted into the SA chromosomal attB site. This assay utilizes real time PCR on the [employer] Ampl[employer] GeneXpert Infinity, and its performance has been verified by the [facility]. A negative result does not rule out the presence of the Staphylococcus aureus or Methicillin resistant Staphylococcus aureus in concentrations below the limit of detection for the assay. This assay is FDA cleared to test on nares swabs collected on patients >21 years of age. Testing on patients < 21 years of age and on umbilicus sources is not FDA approved by this methodology, but has been developed and validated by the [facility] laboratory. Detailed methodology is available upon request. Augie Ramires MD MICROBIOLOGY - GENER AL ORDERABLES Final Result [facility] [place] [address] * EK EKG 12 LEAD (07/17/2017 11:19 AM EST) Anatomical Region Laterality Modality Electrocardiogra phy 07/17/2017 11:2 4 AM EST Impressions 07/17/2017 3:40 PM EST ? Stationary ECG Study ?[facility] [place] ? Interpretive Statements ? SINUS RHYTHM INFERIOR AND ANTEROLATERAL ST ELEVATION - POSSIBLE EARLY REPOLARIZATION - NEED TO ALSO CONSIDER ACUTE INJURY OR PERICARDITIS NO OLD EKGS FOR COMPARISON Electronically Signed On 07-17-2017 15:39:56 EST by Thomas Heath MD Narrative Procedure Note Thomas Heath MD - 07/17/2017 IM[address] ECG Study [facility] [place] Interpretive Statements SINUS RHYTHM INFERIOR AND ANTEROLATERAL ST ELEVATION - POSSIBLE EARLY REPOLARIZATION- NEED TO ALSO CONSIDER ACUTE INJURY OR PERICARDITIS NO OLD EKGS FOR COMPARISON Electronically Signed On 07-17-2017 15:39:56 EST by Thomas Heath MD us Adina Santiago SHOWER ROOM ATTENDANT IMG ECG ORDERABLES Final Res ult documented in this encounter Visit Diagnoses Diagnosis Bleeding disorder (HCC)- Primary Unspecified hemorrhagic conditions Preop testing Preoperative examination, unspecified HTN (hypertension), malignant Essential hypertension, malignant documented in this encounter Care Teams Plant Assigner Relationship Specialty Start Date End Date Michelle Garrido APRN PCP - General Nurse Practitioner 01/09/17 01/14/21 documented as of this encounter
--- OUTSIDE RECORDS SUMMARY | 2024-05-29 15:52 | XMS_ITS | Encounter Summary ---
Author Organization [place] [address] Care Team Providers Care Image Archivist Name Role Phone Renu Doll MD Primary Care Provider Collin rudd Reason for Visit * Reason Comments Medication Refill Encounter Details Date Type Department Care Team (Late Contact Info) Description 12/25/2016 Refill [facility] [address] [place] [address] Renu Doll MD Medication Refill Social [...] TAB BY MOUTH DAILY. 90 Tab 2 12/26/2016 09/09/2017 documented in this encounter Plan of Treatment Upcoming Encounters Date Type Department Care Team (Late Contact Info) Description 06/28/2024 9:40 AM EST Clinical Support [facility] [address] [place] [address] 11/19/2024 1:40 PM EDT Office Visit SEP Neurology [facility] [address] [place] [address] Osman Lyndsay Polina, DO [address] [place] [address] documented as of this encounter [...] mg Oral TabletIndications:Encount er for medication refill Take 1 Tab by mouth daily. Reorder 03/30/2016 12/25/2016 documented as of this encounter Additional Health Concerns Infection Onset Date Last Indicated Resolved Time MRSA 09/07/2016 09/07/2016 04/03/2017 9:55 AM EDT documented as of this encounter Care Teams Image Archivist Relationship Specialty Start Date End Date Renu Doll MD PCP - General Family Medicine 10/12/15 01/08/17 documented as of this encounter
--- OUTSIDE RECORDS SUMMARY | 2024-05-29 15:52 | XMS_ITS | Encounter Summary ---
Author Organization [employer] [place] [address] Care Team Providers Care Bench Molder Name Role Phone Michelle Garrido APRN Primary Care Provider Unava ilable Reason for Visit * Reason Comments Medication Refill Encounter Details Date Type Department Care Team (Late st Contact Info) Description 06/14/2017 Refill [facility] [address] [place] [address] Michelle Garrido APRN Medication Refill Social [...] MOUTH NEEDED FOR ERECTILE DYSFUNCTION 90 Tab 06/14/2017 8 documented in this encounter Plan of Treatment Upcoming Encounters Date Type Department Care Team (Late st Contact Info) Description 06/28/2024 9:40 AM EST Clinical Support [facility] [place] [facility] [address] [place] [phone] 11/19/2024 1:40 PM EDT Office Visit SEP Neurology [facility] [address] [place] [address] Lyndsay Brewer, DO [address] [place] [address] documented as of this encounter Goals Goal [...] and other lower urinary tract symptoms (LUTS) Irritable bowel syndrome with diarrhea Irritable bowel syndrome documented in this encounter Discontinued Medications Medication Sig Discontinue Reason Start Date End Da te CIALIS 5 mg Oral TabletIndications:BPH without urinary obstruction TAKE 1 TABLET BY MOUTH NEEDED FOR ERECTILE DYSFUNCTION Reorder 04/03/2017 06/14/2017 documented as of this encounter Care Teams Bench Molder Relationship Specialty Start Date End Date Michelle Garrido APRN PCP - General Nurse Practitioner 01/09/17 01/14/21 documented as of this encounter
--- OUTSIDE RECORDS SUMMARY | 2024-05-29 15:52 | XMS_ITS | Encounter Summary ---
Author Organization [place] [address] Care Team Providers Care Anthropology Lecturer Name Role Phone Michelle Garrido APRN Primary Care Provider Unava ilable Reason for Visit * Reason Comments Medication Refill Encounter Details Date Type Department Care Team (Late st Contact Info) Description 07/15/2017 Refill [facility] [place] [address] [place] [address] Michelle Garrido APRN Medication Refill [...] Telephone Encounter - Farzana Garrido MA - 07/17/2017 1:42 PM EST DENZEL: as expected 06/06/17 LRF 06/06/17 GUS 07/11/17 Please advise since Michelle Garrido is out of the office and you saw him last. documented in this encounter Plan of Treatment Upcoming Encounters Date Type Department Care Team (Late st Contact Info) Description 06/28/2024 9:40 AM EST Clinical Support [facility] [address] [place] [address] 11/19/2024 1:40 PM EDT Office Visit SEP Neurology [facility] [address] [place] [address] Lyndsay Brewer DO [address] [address] documented as of this encounter [...] syndrome documented in this encounter Care Teams Anthropology Lecturer Relationship Specialty Start Date End Date Michelle Garrido APRN PCP - General Nurse Practitioner 01/09/17 01/14/21 documented as of this encounter
--- OUTSIDE RECORDS SUMMARY | 2024-05-29 15:52 | XMS_ITS | Encounter Summary ---
Author Organization [facility] [place] [address] Care Team Providers Care Speech Therapist Name Role Phone Renu Doll MD Primary Care Provider Collin rudd Reason for Visit * Reason Comments Medication Refill Encounter Details Date Type Department Care Team (Late Contact Info) Description 11/25/2016 Refill [facility] [address] [place] [address] Renu Doll MD Medication Refill Social [...] 2 TIMES A DAY 120 Each 2 11/25/2016 09/06/2017 documented in this encounter Plan of Treatment Upcoming Encounters Date Type Department Care Team (Late Contact Info) Description 06/28/2024 9:40 AM EST Clinical Support [facility] [address] [place] [address] 11/19/2024 1:40 PM EDT Office Visit [facility] Neu[facility] [address] [place] [address] Osman Lyndsay Polina, DO [address] [place] [address] documented as of this encounter Goals Goal [...] Discontinue Reason Start Date End Da te fluticasone-salmeterol (ADVAIR) 500-50 mcg/dose Inhl Disk with DeviceIndications:Encoun ter for medication refill Inhale 1 Puff into the lungs 2 times daily. Reorder 03/30/2016 11/25/2016 documented as of this encounter Additional Health Concerns Infection Onset Date Last Indicated Resolved Time MRSA 09/07/2016 09/07/2016 04/03/2017 9:55 AM EDT documented as of this encounter Care Teams Speech Therapist Relationship Specialty Start Date End Date Renu Doll MD PCP - General Family Medicine 10/12/15 01/08/17 documented as of this encounter
--- OUTSIDE RECORDS SUMMARY | 2024-05-29 15:52 | XMS_ITS | Encounter Summary ---
Author Organization [facility] [place] [address] Care Team Providers Care Reworker Name Role Phone Michelle Garrido APRN Primary Care Provider Unava ilable Reason for Visit * Reason Comments Medication Refill Encounter Details Date Type Department Care Team (Late st Contact Info) Description 04/27/2017 Refill [facility] [address] [employer] [place] [address] Michelle Garrido APRN Medication Refill [...] BY MOUTH TWICE A DAY 60 Tab 04/28/2017 06/05/2017 documented in this encounter Miscellaneous Notes * Telephone Encounter - Farzana Garrido MA - 05/03/2017 10:54 AM EST Phoned in. * Telephone Encounter - Farzana Garrido MA - 04/28/2017 8:07 AM EDT DENZEL: as expected 9/5/17 LRF 04/03/17 GUS 01/25/17 documented in this encounter Plan of Treatment Upcoming Encounters Date Type Department Care Team (Late st Contact Info) Description 06/28/2024 9:40 AM EST Clinical Support [facility] [address] [place] [phone] 11/19/2024 1:40 PM EDT Office Visit [facility] Neurology [facility] [address] [place] [address] Lyndsay Brewer DO [address] [place] [address] documented as of this encounter [...] TABLET BY MOUTH TWICE A DAY Reorder 04/03/2017 04/27/2017 documented as of this encounter Care Teams Reworker Relationship Specialty Start Date End Date Michelle Garrido APRN PCP - General Nurse Practitioner 01/09/17 01/14/21 documented as of this encounter
--- OUTSIDE RECORDS SUMMARY | 2024-05-29 15:52 | XMS_ITS | Encounter Summary ---
Author Organization [place] [address] Care Team Providers Care Exercise Physiologist Certified Name Role Phone Renu Doll MD Primary Care Provider Michelle Rojas APRN Primary Care Provider Unadilia ilvito Reason for Visit * Reason Comments Medication Refill Encounter Details Date Type Department Care Team (Late Contact Info) Description 01/07/2017 Refill [facility] [address] [place] [address] Renu Doll MD Medication Refill Social [...] MOUTH NEEDED FOR ERECTILE DYSFUNCTION 90 Tab 01/09/2017 7 documented in this encounter Plan of Treatment Upcoming Encounters Date Type Department Care Team (Late Contact Info) Description 06/28/2024 9:40 AM EST Clinical Support [facility] [address] [place] [address] 11/19/2024 1:40 PM EDT Office Visit [facility] Neurology [facility] [address] [place] [address] Osman Lyndsay Polina, DO [address] [place] [address] documented as of this encounter [...] BY MOUTH NEEDED FOR ERECTILE DYSFUNCTION Reorder 09/30/2016 01/07/2017 documented as of this encounter Additional Health Concerns Infection Onset Date Last Indicated Resolved Time 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
--- OUTSIDE RECORDS SUMMARY | 2024-05-29 15:52 | XMS_ITS | Encounter Summary ---
Author [place] [address] Care Team Providers Care Lab Scientist Name Role Phone Michelle Garrido APRN Primary Care Provider Unava ilable Reason for Visit * Reason Comments Pre-op Exam Encounter Details Date Type Department Care Team (Late st Contact Info) Description 07/11/2017 9:00 AM EST Office Visit [facility] [address] [place] [address] Ligia Wiley MD [address] [place] [address] Hip pain, left (Primary Dx); Pre-op examination Social History Tobacco Use Types Packs/Day Years [...] Reading Time Taken Comments Blood Pressure 128/80 07/11/2017 9:14 AM EST Pulse 86 07/11/2017 9:14 AM EST Temperature 36.7 ??C (98 ??F) 07/11/2017 9:14 AM EST Respiratory Rate - - Oxygen Saturation 98% 07/11/2017 9:14 AM EST Inhaled Oxygen Concentration - - Weight 92.5 kg (204 lb) 07/11/2017 9:14 AM EST Height 170.2 cm (5' 7 ) 07/11/2017 9:14 AM EST Body Mass Index 31.95 07/11/2017 9:14 AM EST documented in this encounter Functional [...] Progress Notes * Ligia Wiley MD - 07/11/2017 9:00 AM EST Pre-Op physical: Zuhair, a 51 y.o. year old male presents today for a pre-operative consultation at the request of Dr. Ramires for medical clearance for Left total hip surgery. Date of surgery: 07/26/17 Procedure: Left total hip arthroplasty-revision Surgeon name/location: Dr. Marcio Ramires H&P to be faxed to [phone] or available in [employer] for procedures performed at a [facility]. Recent illnesses: none. Prior surgeries requiring anesthesia? [...] Ligia Wiley MD documented in this encounter Plan of Treatment Upcoming Encounters Date Type Department Care Team (Late st Contact Info) Description 06/28/2024 9:40 AM EST Clinical Support [facility] [place] [address] [place] [address] 11/19/2024 1:40 PM EDT Office Visit [facility] Neurology [facility] [address] [place] [address] Osman Lyndsay Harrelln, DO [address] [place] [address] documented as of this encounter Goals Goal Patient Goal Type Associated Problems Recent Progress Patient-Stated? Author Blood Pressure < 140/90 Blood Pressure 134/84(2023 1:16 PM EST) No Yana Choi RMA Eat better, exercise, reach an ideal body weight General No Yana Choi RMJane Stay Tobacco Free Lifestyle No Yana Choi RMA documented as of this encounter Visit Diagnoses Diagnosis Hip pain, left- Primary Pain in joint, pelvic region and thigh Pre-op examination Preoperative examination, unspecified documented in this encounter Discontinued Medications Medication Sig Discontinue Reason Start Date End Da te dicyclomine (BENTYL) 10 mg Oral Capsule TAKE 2 CAPSULES BY MOUTH 4 TIMES A DAY Cancelled by 06/17/2016 07/11/2017 Terbinafine (LAMISIL AT) 1 % Top GelIndications:Intert keturah,Pain of toe of left foot,Tinea Apply 1 Applicatorful topically 2 times daily. Cancelled by 10/12/2016 07/11/2017 miconazole (MICATIN) 2 % Top PowderIndications:Int ertrigo,Pain of toe of left foot,Tinea Apply topically 2 times daily. Cancelled by 10/12/2016 07/11/2017 documented as of this encounter Care Teams Lab Scientist Relationship Specialty Start Date End Date Michelle Garrido APRN PCP - General Nurse Practitioner 01/09/17 01/14/21 documented as of this encounter
--- OUTSIDE RECORDS SUMMARY | 2024-05-29 15:52 | XMS_ITS | Encounter Summary ---
Author Organization [place] [address] Care Team Providers Care Manager Cosmetics Name Role Phone Michelle Garrido APRN Primary Care Provider Unava ilable Reason for Visit * Reason Comments Medication Refill Encounter Details Date Type Department Care Team (Late st Contact Info) Description 06/05/2017 Refill [facility] [address] [place] [address] Michelle Garrido APRN Medication Refill [...] BY MOUTH TWICE A DAY 60 Tab 06/06/2017 07/19/2017 documented in this encounter Miscellaneous Notes * Telephone Encounter - Farzana Garrido MA - 06/06/2017 2:09 PM EST Phoned in, left message informing. * Telephone Encounter - Farzana Garrido MA - 06/06/2017 8:39 AM EST DENZEL: as expected 06/06/17 LRF 04/28/17 GUS 01/25/17 documented in this encounter Plan of Treatment Upcoming Encounters Date Type Department Care Team (Late st Contact Info) Description 06/28/2024 9:40 AM EST Clinical Support [facility] [address] [employer] [employer] [address] [place] [phone] 11/19/2024 1:40 PM EDT Office Visit [facility] Neurology [facility] [address] [place] [address] Lyndsay Brewer DO [address] [place] [address] documented as of this encounter [...] TABLET BY MOUTH TWICE A DAY Reorder 04/28/2017 06/05/2017 documented as of this encounter Care Teams Manager Cosmetics Relationship Specialty Start Date End Date Michelle Garrido APRN PCP - General Nurse Practitioner 01/09/17 01/14/21 documented as of this encounter
--- OUTSIDE RECORDS SUMMARY | 2024-05-29 15:52 | XMS_ITS | Encounter Summary ---
Author Organization [facility] [place] [address] Care Team Providers Care Academic Records Specialist Name Role Phone GarridoMichelle Anusha KENT Primary Care Provider Unava ilable Reason for Visit * Reason Comments Medication Refill Encounter Details Date Type Department Care Team (Late st Contact Info) Description 02/10/2017 Refill [facility] [address] [place] [address] Renu Doll MD Medication Refill Social [...] HOURS NEEDED FOR WHEEZING. 54 Inhaler 2 02/10/2017 08/17/2017 documented in this encounter Plan of Treatment Upcoming Encounters Date Type Department Care Team (Late Contact Info) Description 06/28/2024 9:40 AM EST Clinical Support [facility] [address] [place] [address] 11/19/2024 1:40 PM EDT Office Visit [facility] Neurology [facility] [address] [place] [address] Lyndsay Brewern, DO [address] [place] [address] documented as of this encounter [...] EVERY 4 HOURS NEEDED FOR WHEEZING. Reorder 07/13/2016 02/10/2017 documented as of this encounter Additional Health Concerns Infection Onset Date Last Indicated Resolved Time MRSA 09/07/2016 09/07/2016 04/03/2017 9:55 AM EDT documented as of this encounter Care Teams Academic Records Specialist Relationship Specialty Start Date End Date Michelle Garrido APRN PCP - General Nurse Practitioner 01/09/17 01/14/21 documented as of this encounter
--- OUTSIDE RECORDS SUMMARY | 2024-05-29 15:52 | XMS_ITS | Encounter Summary ---
Author Organization [place] [address] Care Team Providers Care Crude Unit Operator Name Role Phone Michelle Garrido APRN Primary Care Provider Unava ilable Reason for Visit * Reason Comments Immunizations Encounter Details Date Type Department Care Team (Latest Contact Info) Description 05/29/2017 1:40 PM EST Clinical Support [facility] [address] [address] [phone] Farzana Garrido MA Need for influenza vaccination (Primary Dx) Social History Tobacco Use Types [...] on file documented as of this encounter Progress Notes * Farzana Garrido MA - 05/29/2017 1:40 PM EST Pt received flu shot in right deltoid, no concerns. Pt tolerated well. documented in this encounter Plan of Treatment Upcoming Encounters Date Type Department Care Team (Late st Contact Info) Description 06/28/2024 9:40 AM EST Clinical Support [facility] [address] [place] [phone] 11/19/2024 1:40 PM EDT Office Visit [facility] [address] [facility] [place] [address] Lyndsay Brewer, DO [address] [place] [address] documented as of this encounter Goals Goal Patient Goal Type Associated Problems Recent Progress Patient-Stated? Author Blood Pressure < 140/90 Blood Pressure 134/84(2023 1:16 PM EST) No Yana Choi RMA Eat better, exercise, reach an ideal body weight General No Yana Choi RMA Stay Tobacco Free Lifestyle No Yana Choi RMA documented as of this encounter Visit Diagnoses Diagnosis Need for influenza vaccination- Primary Need for prophylactic vaccination and inoculation against influenza documented in this encounter Orders Immunization/Injection Count Last Ordered Date First Ordered Date FLU VACCINE QUADRIVALENT (3YR+) 1 7 documented in this encounter Care Teams Crude Unit Operator Relationship Specialty Start Date End Date Michelle Garrido APRN PCP - General Nurse Practitioner 01/09/17 01/14/21 documented as of this encounter
--- OUTSIDE RECORDS SUMMARY | 2024-05-29 15:52 | XMS_ITS | Encounter Summary ---
Author Organization [place] [address] Care Team Providers Care Realtime Captioner Name Role Phone Michelle Garrido APRN Primary Care Provider Willie aguila Encounter Details Date Type Department Care Team (Late st Contact Info) Description 05/09/2017 9:27 AM [facility] Hospital Encounter [facility] Referral Lab [address] [place] [address] Augie Ramires MD [address] [place] [address] Pain in left hip Social History Tobacco Use Types Packs/Day Years [...] AM EDT documented as of this encounter Plan of Treatment Upcoming Encounters Date Type Department Care Team (Late st Contact Info) Description 06/28/2024 9:40 AM EST Clinical Support [facility] [address] [place] [phone] 11/19/2024 1:40 PM EDT Office Visit SEP Neurology [facility] [address] [place] [address] Lyndsay Brewer DO [address] [place] [address] documented as of this encounter Goals Goal Patient Goal Type Associated Problems Recent Progress Patient-Stated? Author Blood Pressure < 140/90 Blood Pressure 134/84(2023 1:16 PM EST) No Yana Choi RMA Eat better, exercise, reach an ideal body weight General No Yana Choi RMA Stay Tobacco Free Lifestyle No Yana Choi RMA documented as of this encounter Results * C-REACTIVE PROTEIN (05/09/2017 10:31 AM EST) CRP 2.59 <=5.00 mg/L 05/09/2017 11:10 AM EST [facility] Blood Venipuncture / Unknown 05/09/2017 10:31 AM EST 05/09/2017 10:31 AM EST Augie Ramires MD CHEMISTRY ORDERABLES Final Result [facility] [address] [place] [address] * SEDIMENTATION RATE AUTOMATED (05/09/2017 10:31 AM EST) [facility] Sed Rate 3 0 - 15 mm/hr 05/09/2017 5:41 PM EST [facility] Blood Venipuncture / Unknown 05/09/2017 10:31 AM EST 05/09/2017 10:31 AM EST Narrative [facility] - 05/09/2017 5:41 PM EST This is a new method using Rheology technology. This is a direct measurement and consequently is less affected by the hematocrit. This advantage explains any result differences observed in comparison with our previous modified Westergren method. us Augie Ramires MD HEMATOLOGY ORDERABLE S Final Result Performing Organization Address [facility] [employer] de Phone Number [facility] [address] [place] [address] * CBC WITH DIFF (05/09/2017 10:31 AM EST) [facility] WBC 6.6 4.0 - 11.0 x10(3)/mcL 05/09/2017 10:56 AM EST [facility] RBC 4.75 4.30 - 5.81 x10(6)/mcL 05/09/2017 10:56 AM EST [facility] Hgb 15.4 13.5 - 17.1 gm/dL 05/09/2017 10:56 AM EST [facility] Hct 44.5 38.9 - 51.6 % 05/09/2017 10:56 AM EST [facility] MCV 93.8 82.5 - 99.8 fL 05/09/2017 10:56 AM EST [facility] MCH 32.5 27.0 - 34.3 pg 05/09/2017 10:56 AM EST [facility] MCHC 34.7 32.1 - 35.3 gm/dL 05/09/2017 10:56 AM EST [facility] RDW 12.9 11.5 - 15.0 % 05/09/2017 10:56 AM EST [facility] Platelet 188 144 - 423 x10(3)/mcL 05/09/2017 10:56 AM EST [facility] MPV 8.4 6.8 - 10.8 fL 05/09/2017 10:56 AM EST [facility] Neut Percent 75.7 % 05/09/2017 10:56 AM EST [facility] Lymph Percent 16.8 % 05/09/2017 10:56 AM EST [facility] Gilchrist Percent 5.9 % 05/09/2017 10:56 AM EST [facility] Eos Percent 0.3 % 05/09/2017 10:56 AM EST [facility] Baso Percent 1.3 % 05/09/2017 10:56 AM EST [facility] Neut # 5.0 1.8 - 7.7 x10(3)/[facility] 05/09/2017 10:56 AM EST [facility] Lymph # 1.1 0.6 - 4.8 x10(3)/[facility] 05/09/2017 10:56 AM EST [facility] Gilchrist # 0.4 0.0 - 1.3 x10(3)/[facility] 05/09/2017 10:56 AM EST [facility] Eos# 0.0 0.0 - 0.5 x10(3)/[facility] 05/09/2017 10:56 AM EST [facility] Baso # 0.1 0.0 - 0.2 x10(3)/[facility] 05/09/2017 10:56 AM EST [facility] Blood Venipuncture / Unknown 05/09/2017 10:31 AM EST 05/09/2017 10:31 AM EST us Augie Ramires MD HEMATOLOGY ORDERABLE S Final Result [facility] [address] [place] [address] documented in this encounter Visit Diagnoses Diagnosis Pain in left hip Pain in joint, pelvic region and thigh documented in this encounter Additional Health Concerns [...] documented as of this encounter Care Teams Realtime Captioner Relationship Specialty Start Date End Date Michelle Garrido APRN PCP - General Nurse Practitioner 01/09/17 01/14/21 documented as of this encounter
--- OUTSIDE RECORDS SUMMARY | 2024-05-29 15:52 | XMS_ITS | Encounter Summary ---
Author Organization [place] [address] Care Team Providers Care Green End Department Supervisor Name Role Phone Michelle Garrido APRN Primary Care Provider Unava ilable Reason for Visit * Auth/Cert/Inpt Specialty Diagnoses / Procedures Referred By Contac t Referred To Contact Diagnoses Other mechanical complication of internal left hip prosthesis, initial encounter ([facility]) Other mechanical complication of internal left hip prosthesis, initial encounter ([facility]) [T84.091A] Procedures MS REVISE TOTAL HIP REPLACEMENT LEFT TOTAL HIP ARTHROPLASTY- REVISION-ANTERIOR EDG [facility]OP [facility] [place] [address] Phone: tel: fax: Referral ID Status Reason Start Date Expiration Date Visits Re quested Visits Authorized [id number] 07/13/2017 07/13/2018 1 1 Encounter Details Date Type Department Care Team (Latest Contact Info) Description 07/17/2017 8:30 AM EST - 07/17/2017 10:29 AM EST Hospital Encounter [place] [address] Provider, Edg Total Joint Class Discharge Disposition: Home or Self Care Social [...] Author No 07/11/2017 9:14 AM Riya Pérez, ESTEFANY * Is the person blind or does he/she have serious difficulty seeing even when wearing glasses? Answer Date of Assessment Author No 07/11/2017 9:14 AM Riya Pérez, DEMARCUSA * Does this person have serious difficulty walking or climbing stairs? Answer Date of Assessment Author No 07/11/2017 9:14 AM Riya Pérez, DEMARCUSA * Does this person have difficulty dressing or bathing? Answer Date of Assessment Author No 07/11/2017 9:14 AM Riya Pérez, DEMARCUSA * Because of a physical, mental or emotional condition, does this person have difficulty doing errands alone such as visiting a doctor's office or shopping? Answer Date of Assessment Author No 07/11/2017 9:14 AM Riya Pérez, RMJane documented as of this encounter Mental Status * Because of a physical, mental or emotional condition, does this person have serious difficulty concentrating, remembering or making decisions? Answer Entry Date Author No 07/11/2017 9:14 AM Riya Pérez, RMJane documented in this encounter Medications at Time of Discharge Nebulizer Accessories (ALL FLOW 4000 KIT) [facility] Form[facility] equivalent 1 Each 0 06/27/2012 acetaminophen [...] documented in this encounter Progress Notes * Lisa Iyer, RN - 07/17/2017 11:00 AM EST TOTAL JOINT EDUCATION CLASS NOTE Zuhair Whitlock, 51 y.o. [id number] No admitting provider for patient encounter. Patient has attended pre-operative education class. Family member(s)/friend(s) were present at class. Barriers to learning None identified Audiovisual Presentation was completed, information included: Pre-op Information Day of Surgery Orthopaedic Equipment Pain Control/Medications Safety Measures: Bed alarms, Assistance when up Avoiding Complications Post-op daily schedule Discharge Options Home Safety Future Prophylactic Antibiotics PT instructions Care Coordination packet Booklet Provided Hip documented in this encounter Plan of Treatment Upcoming Encounters Date Type Department Care Team (Late st Contact Info) Description 06/28/2024 9:40 AM EST Clinical Support [facility] [address] [place] [phone] 11/19/2024 1:40 PM EDT Office Visit SEP Neurology [facility] [address] [place] [address] Lyndsay Brewer, [address] [place] [address] documented as of this encounter [...] on filedocumented in this encounter Care Teams Green End Department Supervisor Relationship Specialty Start Date End Date Michelle Garrido APRN PCP - General Nurse Practitioner 01/09/17 01/14/21 documented as of this encounter
--- OUTSIDE RECORDS SUMMARY | 2024-05-29 15:52 | XMS_ITS | Encounter Summary ---
Author Organization [place] [address] Care Team Providers Care Loan Workout Officer Name Role Phone Michelle Garrido APRN Primary Care Provider Unava ilable Reason for Visit * Reason Onset Date Comments Medication Refill 05/03/2017 Encounter Details Date Type Department Care Team (Late st Contact Info) Description 05/03/2017 Telephone [facility] [address] [place] [address] Michelle Garrido APRN Medication Refill [...] * Telephone Encounter - Lissett Montano - 05/03/2017 11:36 AM EST Please disregard previous message. Patient did get his medication * Telephone Encounter - Lissett Montano - 05/03/2017 11:30 AM EST Patient said that the pharmacy is still saying that it is denied. Would you please call this refillto the pharmacy. Please call [facility] devan * Telephone Encounter - Farzana Garrido MA - 05/03/2017 10:53 AM EST Because it was already phoned in. * Telephone Encounter - Lissett Montano - 05/03/2017 9:11 AM EST Patient needs a refill on his VIBERZI 100 mg Oral Tablet He call it in to the pharmacy and it was denied. Please let patient know if he needs an appt or why it was denied documented in this encounter Plan of Treatment Upcoming Encounters Date Type Department Care Team (Late st Contact Info) Description 06/28/2024 9:40 AM EST Clinical Support [facility] [place] [address] [place] [phone] 11/19/2024 1:40 PM EDT Office Visit SEP Neurology [facility] [address] [place] [phone] Lyndsay Brewer DO [address] [place] [address] documented as of this encounter [...] on filedocumented in this encounter Care Teams Loan Workout Officer Relationship Specialty Start Date End Date Michelle Garrido APRN PCP - General Nurse Practitioner 01/09/17 01/14/21 documented as of this encounter
--- OUTSIDE RECORDS SUMMARY | 2024-05-29 15:52 | XMS_ITS | Encounter Summary ---
Author Organization [place] [address] Care Team Providers Care Liquor Inspector Name Role Phone Michelle Garrido APRN Primary Care Provider Unava ilable Reason for Visit * Reason Comments Medication Refill Encounter Details Date Type Department Care Team (Late st Contact Info) Description 04/01/2017 Refill [facility] [place] [address] [place] [address] Michelle Garrido APRN Medication Refill [...] MOUTH NEEDED FOR ERECTILE DYSFUNCTION 90 Tab 04/03/2017 7 VIBERZI 100 mg Oral TabletIndications: Irritable bowel syndrome with diarrhea TAKE 1 TABLET BY MOUTH TWICE A DAY 60 Tab 04/03/2017 7 documented in this encounter Miscellaneous Notes * Telephone Encounter - Farzana Soria MA - 04/03/2017 9:23 AM EDT rx phoned in and pt advised. * Telephone Encounter - Farzana Soria MA - 04/03/2017 9:09 AM EDT DENZEL: as expected 02/28/17 LRF: 02/28/17 GUS: 01/25/17 documented in this encounter Plan of Treatment Upcoming Encounters Date Type Department Care Team (Late st Contact Info) Description 06/28/2024 9:40 AM EST Clinical Support [facility] [place] [address] [place] [address] 11/19/2024 1:40 PM EDT Office Visit SEP Neurology [facility] [address] [place] [address] Lyndsay Brewer DO [address] [place] [address] documented as of this encounter [...] TABLET BY MOUTH 2 TIMES A DAY Reorder 02/28/2017 04/01/2017 CIALIS 5 mg Oral TabletIndications:BPH without urinary obstruction TAKE 1 TABLET BY MOUTH NEEDED FOR ERECTILE DYSFUNCTION Reorder 01/09/2017 04/01/2017 documented as of this encounter Additional Health Concerns Infection Onset Date Last Indicated Resolved Time MRSA 09/07/2016 09/07/2016 04/03/2017 9:55 AM EDT documented as of this encounter Care Teams Liquor Inspector Relationship Specialty Start Date End Date Michelle Garrido APRN PCP - General Nurse Practitioner 01/09/17 01/14/21 documented as of this encounter
--- OUTSIDE RECORDS SUMMARY | 2024-05-29 15:52 | XMS_ITS | Encounter Summary ---
Author Organization [place] [address] Care Team Providers Care Math And Science Instructor Name Role Phone Renu Doll MD Primary Care Provider Collin rudd Reason for Visit * Reason Comments Medication Problem Encounter Details Date Type Department Care Team (Late st Contact Info) Description [facility] [address] [place] [address] Renu Doll MD Medication Problem Social History Tobacco Use Types [...] Telephone Encounter - Farzana Soria MA - 12/20/2016 11:43 AM EDT PT informed already. * Telephone Encounter - Michelle Garrido APRN - 12/20/2016 10:35 AM EDT Great! Please inform patient if you haven't already. * Telephone Encounter - Farzana Soria MA - 12/20/2016 8:38 AM EDT PA completed and approved. * Telephone Encounter - Michelle Garrido APRN - 12/16/2016 4:11 PM EDT Can we try to PA? * Telephone Encounter - Farzana Soria MA - 12/16/2016 3:50 PM EDT Talked to pharm and it does not give them other options to change it to. * Telephone Encounter - Michelle Garrido APRN - 12/16/2016 3:34 PM EDT When we get notice for PA on this viberzi, please let me know what medications his insurance will cover instead. * Telephone Encounter - Lissett Montano - 12/16/2016 2:05 PM EDT Patient was seen today and the Rx you gave him is not covered by his ins. Could you please let him know is you want to change it or what you want him to do documented in this encounter Plan of Treatment Upcoming Encounters Date Type Department Care Team (Late st Contact Info) Description 06/28/2024 9:40 AM EST Clinical Support [place] [address] [place] [phone] 11/19/2024 1:40 PM EDT Office Visit SE[facility] Neurology [facility] [address] [place] [phone] Lyndsay Brewer DO [address] [place] [address] documented as of this encounter Goals Goal [...] documented as of this encounter Care Teams Math And Science Instructor Relationship Specialty Start Date End Date Renu Doll MD PCP - General Family Medicine 10/12/15 01/08/17 documented as of this encounter
--- OUTSIDE RECORDS SUMMARY | 2024-05-29 15:52 | XMS_ITS | Encounter Summary ---
Author Organization [place] [address] Care Team Providers Care Manager Respiratory Name Role Phone Renu Doll MD Primary Care Provider Collin rudd Encounter Details Date Type Department Care Team (Latest Contact Info) Description 12/16/2016 11:30 AM EDT - 12/16/2016 11:59 PM EDT Hospital Encounter EDG D-WING XRAY [facility] [place] [address] Primary osteoarthritis of both knees; Post-traumatic osteoarthritis of left elbow Discharge Disposition: Home or Self Care Social [...] Discharge Nebulizer Accessories (ALL FLOW 4000 KIT) Misc Formulary equivalent 1 Each 0 06/27/2012 documented as of this encounter Discharge Disposition Disposition Code Departure Means Destination Home or Self Care documented in this encounter Plan of Treatment Upcoming Encounters Date Type Department Care Team (Late st Contact Info) Description 06/28/2024 9:40 AM EST Clinical Support [facility] [place] [facility] [address] [place] [phone] 11/19/2024 1:40 PM EDT Office Visit SEP Neurology [facility] [address] [place] [phone] [place] Lyndsay Polina, DO [address] [place] [address] documented as of this encounter Goals Goal [...] Priority Date/Time Associated Diagnosis Comments XR KNEE RIGHT AP LATERAL AND AXIAL Routine 12/16/2016 12:21 PM EDT Primary osteoarthritis of both knees XR KNEE LEFT AP LATERAL AND AXIAL Routine 12/16/2016 12:21 PM EDT Primary osteoarthritis of both knees XR ELBOW LEFT AP LATERAL AND OBLIQUES Routine 12/16/2016 12:21 PM EDT Post-traumatic osteoarthritis of left elbow documented in this encounter Results * XR ELBOW LEFT AP LATERAL AND OBLIQUES (12/16/2016 12:21 PM EDT) Anatomical Region Laterality Modality Elbow Radiographic Pauly ging 12/16/2016 12:2 1 PM EDT Impressions 12/16/2016 3:20 PM EDT Advanced degenerative joint disease of the elbow joint with progression compared to prior exam. Jhst-lz-hyne articulation. No displaced fracture. Small joint effusion with minimally displaced fat pads. Narrative 12/16/2016 3:20 PM EDT XR ELBOW LEFT AP LATERAL AND OBLIQUES 5 views 12/16/2016 12:21 PM History: 51 years .Male. ??M19.174-Fjyj-yyoczluqw osteoarthritis, left wtknk-VAS-20-CM. Compare: June 05, 2007 Procedure Note Kenny Beckham MD - 12/16/2016 XR ELBOW LEFT AP LATERAL AND OBLIQUES 5 views 12/16/2016 12:21 PM History: 51 years .Male. M19.037-Vcgl-ukiihylkh osteoarthritis, left bqzxt-NCS-98-CM. Compare: June 05, 2007 IMPRESSION: Advanced degenerative joint disease of the elbow joint with progression compared to prior exam. Dryw-pk-hqos articulation. Nodisplaced fracture. Small joint effusion with minimally displaced fat pads. Michelle Garrido APRN IMG DIAGNOSTIC IMAGING ORDER RAMESH Final Result * XR KNEE LEFT AP LATERAL AND AXIAL (12/16/2016 12:21 PM EDT) Anatomical Region Laterality Modality Knee Radiographic Pauly ging 12/16/2016 12:2 1 PM EDT Impressions 12/16/2016 2:13 PM EDT There is tricompartmental osteoarthritis of the left knee. The findings have progressed from a remote 2009 study. Narrative 12/16/2016 2:13 PM EDT XR KNEE LEFT AP LATERAL AND AXIAL ??12/16/2016 12:21 PM Clinical: M17.0-Bilateral primary osteoarthritis of ljar-CEM-19-CM COMPARISONS: 04/14/2010. FINDINGS: There is tricompartmental joint space narrowing and osteophyte formation in the left knee. The findings are most pronounced in the medial compartment. There is ORIF hardware in the left tibia. There is no joint effusion. There is normal alignment of the left knee. Procedure Note Georgette Haney MD - 12/16/2016 XR KNEE LEFT AP LATERAL AND AXIAL 12/16/2016 12:21 PM Clinical: M17.0-Bilateral primary osteoarthritis of sjwt-NXB-95-CM COMPARISONS: 04/14/2010. FINDINGS: There is tricompartmental joint space narrowing and osteophyte formationin the left knee. The findings are most pronounced in the medial compartment.There is ORIF hardware in the left tibia. There is no joint effusion. There isnormal alignment of the left knee. IMPRESSION: There is tricompartmental osteoarthritis of the left knee. The findingshave progressed from a remote 2009 study. Michelle Garrido APRN IMG DIAGNOSTIC IMAGING ORDER RAMESH Final Result * XR KNEE RIGHT AP LATERAL AND AXIAL (12/16/2016 12:21 PM EDT) Anatomical Region Laterality Modality Knee Radiographic Pauly ging 12/16/2016 12:2 1 PM EDT Impressions 12/16/2016 12:32 PM EDT MODERATE DJD. Narrative 12/16/2016 12:32 PM EDT THREE-VIEW RIGHT KNEE, 12/16/2016 HISTORY: M17.0-Bilateral primary osteoarthritis of qati-GTS-32-CM. FINDINGS: No fractures or dislocations. No joint effusion. Evidence of prior ACL repair. There is moderate degenerative change with joint space narrowing and spurring. No destructive lesions. Procedure Note Curtis Pelaez MD - 12/16/2016 THREE-VIEW RIGHT KNEE, 12/16/2016 HISTORY: M17.0-Bilateral primary osteoarthritis of yyjt-EUZ-38-CM. FINDINGS: No fractures or dislocations. No joint effusion. Evidence of prior ACLrepair. There is moderate degenerative change with joint space narrowing andspurring. No destructive lesions. IMPRESSION: MODERATE DJD. Michelle Garrido APRN IMG DIAGNOSTIC IMAGING ORDER RAMESH Final Result documented in this encounter Visit Diagnoses Diagnosis Primary osteoarthritis of both knees Primary localized osteoarthrosis, lower leg Post-traumatic osteoarthritis of left elbow Secondary localized osteoarthrosis, upper arm documented in this encounter Additional Health Concerns Infection Onset Date Last Indicated Resolved Time MRSA 09/07/2016 09/07/2016 04/03/2017 9:55 AM EDT documented as of this encounter Care Teams Manager Respiratory Relationship Specialty Start Date End Date Renu Doll MD PCP - General Family Medicine 10/12/15 01/08/17 documented as of this encounter
--- OUTSIDE RECORDS SUMMARY | 2024-05-29 15:52 | XMS_ITS | Encounter Summary ---
Author Organization [place] [address] Care Team Providers Care Clerical Administrator Name Role Phone Renu Doll MD Primary Care Provider Collin rudd Reason for Referral * Consultation (Routine) - Closed Specialty Diagnoses / Procedures Referred By Contsathish kunz Referred To Contact Diagnoses Post-traumatic osteoarthritis of left elbow Primary osteoarthritis of both knees Michelle Garrido APRN Greiwe, R. Michael, MD Phone: tel: fax: Referral ID Status Reason Start Date Expiration Date Visits Re quested Visits Authorized [id number] Closed 12/16/2016 12/16/2017 99 99 Reason for Visit * Reason Comments Knee Pain Elbow Pain Encounter Details Date Type Department Care Team (Latest Contact Info) Description 12/16/2016 9:40 AM EDT Office Visit [place] [address] [place] [address] Michelle Garrido APRN Post-traumatic osteoarthritis of left elbow (Primary Dx); Primary osteoarthritis of both knees; Irritable bowel syndrome with diarrhea Social History [...] Sign Reading Time Taken Comments Blood Pressure 128/88 12/16/2016 9:33 AM EDT Pulse 81 12/16/2016 9:33 AM EDT Temperature 36.6 ??C (97.8 ??F) 12/16/2016 9:33 AM ED T Respiratory Rate - - Oxygen Saturation 95% 12/16/2016 9:33 AM EDT Inhaled Oxygen Concentration - - Weight 91.6 kg (202 lb) 12/16/2016 9:33 AM EDT Height 170.2 cm (5' 7 ) 12/16/2016 9:33 AM EDT Body Mass Index 31.64 12/16/2016 9:33 AM EDT documented in this encounter Ordered Prescriptions Prescription Sig Dispense Quantity Refills Last Filled Start Date End Date eluxadoline 100 mg Oral TabletIndications:I rritable bowel syndrome with diarrhea Take 100 mg by mouth 2 times daily. 60 Tab 12/16/2016 01/25/2017 documented in this encounter Progress Notes * Michelle Garrido, MILITARY SCIENCE TEACHER - 12/16/2016 9:40 AM EDT Subjective Zuhair Whitlock is a 51 y.o. male Subjective Chief Complaint Patient presents with ??? Knee Pain ??? Elbow Pain He has left elbow pain, he was told it should have been replaced 10 years ago but didn't want to atthe time. He states he has a calcium deposit on the elbow and it gets put out of place all the time. It has gotten steadily worse over the last few years and is now at a point where he can't take it and wants referral to orthopedic. Abdominal pain. Had a colonoscopy 1 year ago and saw GI and diagnosed with IBS. He has ongoing painand constant diarrhea. He has changed his diet, eats lots of fiber, probiotics, fruits/vegetables, takes bentyl and probiotic and nothing is helping. Review of Systems Gastrointestinal: Positive for abdominal pain ( cramping, associated with IBS-D) and diarrhea. Negative for blood in stool, constipation, nausea and vomiting. Musculoskeletal: Positive for arthralgias ( left elbow, bilateral knees). Objective Objective Visit Vitals ??? BP 128/88 ??? Pulse 81 ??? Temp 97.8 ??F (36.6 ??C) (Oral) ??? Ht 5' 7 (1.702 m) ??? Wt 202 lb (91.6 kg) ??? SpO2 95% ??? BMI 31.64 kg/m2 Physical Exam Constitutional: He appears well-developed and well-nourished. Cardiovascular: Normal rate, regular rhythm and normal heart sounds. Pulmonary/Chest: Effort normal and breath sounds normal. No respiratory distress. Abdominal: Soft. Bowel sounds are normal. He exhibits no distension and no mass. There is no tenderness. There is no guarding. Musculoskeletal: Left elbow: He exhibits decreased range of motion and deformity. He exhibits no swelling and no effusion. No tenderness found. Right knee: He exhibits normal range of motion, no swelling, no effusion and no erythema. No tenderness found. Left knee: He exhibits normal range of motion, no swelling, no effusion and no erythema. No tenderness found. Assessment and Plan Zuhair was seen today for knee pain and elbow pain. Diagnoses and all orders for this visit: Post-traumatic osteoarthritis of left elbow - Orthopedic Surgery, Luda PIMENTEL (EDDY) - X-ray elbow left AP lateral and obliques; Future Primary osteoarthritis of both knees - Orthopedic Surgery, Luda PIMENTEL (EDDY) - X-ray knee right AP lateral and axial; Future - X-ray knee left AP lateral and axial; Future - Will plan for steroid injection if Xray consistent with osteoarthritis Irritable bowel syndrome with diarrhea Viberzi 100 mg BID, dispnse 30, 0 refills. Return in about 4 weeks (around 01/13/2017) for IBS-D. Patient was educated regarding the diagnosis, medication/treatment, goals, self- management tools and instructions based on their care plan. They verbalized full understanding of the education given on the After Visit Summary [AVS] for today's visit. They received a copy of the AVS in writing. A new medicine was prescribed during this [...] inquired of any questions and answered accordingly. Michelle Garrido APRN documented in this encounter Plan of Treatment Upcoming Encounters Date Type Department Care Team (Late st Contact Info) Description 06/28/2024 9:40 AM EST Clinical Support [facility] [place] [address] [place] [phone] 11/19/2024 1:40 PM EDT Office Visit SEP Neurology [facility] [address] [place] [address] Lyndsay Brewer, [address] [place] [address] Scheduled Referrals Name Type Priority Associated Diagnoses Orde r Schedule AMB REFERRAL TO ORTHOPEDIC SURGERY Outpatient Referral Routine Post-traumatic osteoarthritis of left elbow Primary osteoarthritis of both knees Ordered: 12/16/2016 documented as of this encounter Goals Goal Patient Goal Type Associated Problems Recent Progress Patient-Stated? Author Blood Pressure < 140/90 Blood Pressure 134/84(2023 1:16 PM EST) No Yana Choi, RMA Eat better, exercise, reach an ideal body weight General No Yana Choi, RMA Stay Tobacco Free Lifestyle No Yana Choi RMA documented as of this encounter Results * XR ELBOW LEFT AP LATERAL AND OBLIQUES (12/16/2016 12:21 PM EDT) Anatomical Region Laterality Modality Elbow Radiographic Pauly ging 12/16/2016 12:2 1 PM EDT Impressions 12/16/2016 3:20 PM EDT Advanced degenerative joint disease of the elbow joint with progression compared to prior exam. Fmzb-ph-xddx articulation. No displaced fracture. Small joint effusion with minimally displaced fat pads. Narrative 12/16/2016 3:20 PM EDT XR ELBOW LEFT AP LATERAL AND OBLIQUES 5 views 12/16/2016 12:21 PM History: 51 years .Male. ??M19.259-Dgwa-zdvkiouin osteoarthritis, left xvxzt-SKR-76-CM. Compare: June 05, 2007 Procedure Note Kenny Beckham MD - 12/16/2016 XR ELBOW LEFT AP LATERAL AND OBLIQUES 5 views 12/16/2016 12:21 PM History: 51 years .Male. M19.723-Dscs-lmsxevpjx osteoarthritis, left zlsjj-FBX-33-CM. Compare: June 05, 2007 IMPRESSION: Advanced degenerative joint disease of the elbow joint with progression compared to prior exam. Enxh-rc-khhe articulation. Nodisplaced fracture. Small joint effusion with minimally displaced fat pads. us Michelle Garrido APRN IMG DIAGNOSTIC IMAGING ORDER [...] 12:21 PM Clinical: M17.0-Bilateral primary osteoarthritis of zyij-GAV-07-CM COMPARISONS: 04/14/2010. FINDINGS: There is tricompartmental joint [...] 12:21 PM Clinical: M17.0-Bilateral primary osteoarthritis of ufec-BJZ-59-CM COMPARISONS: 04/14/2010. FINDINGS: There is tricompartmental joint space narrowing and osteophyte formationin the left knee. The findings are most pronounced in the medial compartment.There is ORIF hardware in the left tibia. There is no joint effusion. There isnormal alignment of the left knee. IMPRESSION: There is tricompartmental osteoarthritis of the left knee. The findingshave progressed from a remote 2010 study. Michelle Garrido APRN [facility] [place] [place] DIAGNOSTIC IMAGING ORDER RAMESH Final Result * XR KNEE RIGHT AP LATERAL AND AXIAL (12/16/2016 12:21 PM EDT) Anatomical Region Laterality Modality Knee Radiographic Pauly ging 12/16/2016 12:2 1 PM EDT Impressions 12/16/2016 12:32 PM EDT MODERATE DJD. Narrative 12/16/2016 12:32 PM EDT THREE-VIEW RIGHT KNEE, 12/16/2016 HISTORY: M17.0-Bilateral primary osteoarthritis of lpqh-NSE-35-CM. FINDINGS: No fractures or dislocations. No joint effusion. Evidence of prior ACL repair. There is moderate degenerative change with joint space narrowing and spurring. No destructive lesions. Procedure Note Curtis Pelaez MD - 12/16/2016 THREE-VIEW RIGHT KNEE, 12/16/2016 HISTORY: M17.0-Bilateral primary osteoarthritis of edvu-TSD-31-CM. FINDINGS: No fractures or dislocations. No joint effusion. Evidence of prior ACLrepair. There is moderate degenerative change with joint space narrowing andspurring. No destructive lesions. IMPRESSION: MODERATE DJD. Michelle Garrido APRN [facility] [place] DIAGNOSTIC IMAGING ORDER RAMESH Final Result documented in this encounter Visit Diagnoses Diagnosis Post-traumatic osteoarthritis of left elbow- Primary Secondary localized osteoarthrosis, upper arm Primary osteoarthritis of both knees Primary localized osteoarthrosis, lower leg Irritable bowel syndrome with diarrhea Irritable bowel syndrome Primary osteoarthritis of both knees Primary localized osteoarthrosis, lower leg Post-traumatic osteoarthritis of left elbow Secondary localized osteoarthrosis, upper arm documented in this encounter Additional Health Concerns Infection Onset Date Last Indicated Resolved Time MRSA 09/07/2016 09/07/2016 04/03/2017 9:55 AM EDT documented as of this encounter Care Teams Clerical Administrator Relationship Specialty Start Date End Date Renu Doll MD PCP - General Family Medicine 10/12/15 01/08/17 documented as of this encounter
--- OUTSIDE RECORDS SUMMARY | 2024-05-29 15:52 | XMS_ITS | Encounter Summary ---
Author Organization [place] [address] Care Team Providers Care Bun Machine Operator Name Role Phone Renu Doll MD Primary Care Provider Collin rudd Reason for Visit * Reason Comments Injections Knee Pain Encounter Details Date Type Department Care Team (Latest Contact Info) Description 12/19/2016 8:20 AM EDT Office Visit [facility] [address] [place] [address] Michelle Garrido, CASUALTY UNDERWRITER Primary osteoarthritis of right knee (Primary Dx); Primary osteoarthritis of left knee Social History Tobacco Use Types Packs/Day Years [...] Sign Reading Time Taken Comments Blood Pressure 136/84 12/19/2016 8:21 AM EDT Pulse 82 12/19/2016 8:21 AM EDT Temperature 36.6 ??C (97.8 ??F) 12/19/2016 8:21 AM ED T Respiratory Rate - - Oxygen Saturation 98% 12/19/2016 8:21 AM EDT Inhaled Oxygen Concentration - - Weight 93 kg (205 lb) 12/19/2016 8:21 AM EDT Height 170.2 cm (5' 7 ) 12/19/2016 8:21 AM EDT Body Mass Index 32.11 12/19/2016 8:21 AM EDT documented in this encounter Progress Notes * Michelle Garrido APRN - 12/19/2016 8:20 AM EDT Subjective Zuhair Whitlock is a 51 y.o. male Subjective Chief Complaint Patient presents with ??? Injections ??? Knee Pain Pt is here for steroid injections into his knees after receiving xray results. Xray of bilateral knee consistent with osteoarthritis. Review of Systems Musculoskeletal: Positive for arthralgias ( bilateral knee pain). Objective Objective BP 136/84 Pulse 82 Temp 97.8 ??F (36.6 ??C) (Oral) Ht 5' 7 (1.702 m) Wt 205 lb (93 kg) SpO2 98% BMI 32.11 kg/m?? Physical Exam Constitutional: He appears well-developed and well-nourished. Cardiovascular: Normal rate. Pulmonary/Chest: Effort normal. Musculoskeletal: Right knee: He exhibits normal range of motion, no swelling, no effusion and no erythema. Left knee: He exhibits normal range of motion, no swelling, no effusion and no erythema. Assessment and Plan Zuhair was seen today for injections and knee pain. Diagnoses and all orders for this visit: Primary osteoarthritis of right knee - UT ARTHROCENTESIS ASPIR&/INJ MAJOR JT/BURSA W/O US - methylPREDNISolone acetate (DEPO-MEDROL) injection 40 mg; Inject 1 mL into the muscle once. Primary osteoarthritis of left knee - UT ARTHROCENTESIS ASPIR&/INJ MAJOR JT/BURSA W/O US - methylPREDNISolone acetate (DEPO-MEDROL) injection 40 mg; Inject 1 mL into the muscle once. Alcohol was used to cleanse the skin prior to injection. A steroid injection was performed of bilateral knees using lateral approach with 1% plain Lidocaine and 40 mg of depo-medrol. This was well tolerated. Return if symptoms worsen or fail to improve. Patient was educated regarding the diagnosis, medication/treatment, goals, self- management tools and instructions based on their care plan. They verbalized full understanding of the education given on the After Visit Summary [AVS] for today's visit. They received a copy of the AVS in writing. A new medicine was not prescribed on this visit. Michelle Garrido APRN documented in this encounter Plan of Treatment Upcoming Encounters Date Type Department Care Team (Late st Contact Info) Description 06/28/2024 9:40 AM EST Clinical Support ANTOLIN [place] [address] [place] [phone] 11/19/2024 1:40 PM EDT Office Visit [facility] Neurology [facility] [address] [place] [place] [address] Lyndsay Brewer, [address] [place] [address] Scheduled Orders Name Type Priority Associated Diagnoses Orde r Schedule UT ARTHROCENTESIS ASPIR&/INJ MAJOR JT/BURSA W/O US UT Charge Routine Primary osteoarthritis of right knee Ordered: 12/19/2016 UT ARTHROCENTESIS ASPIR&/INJ MAJOR JT/BURSA W/O US UT Charge Routine Primary osteoarthritis of left knee Ordered: 12/19/2016 documented as of this encounter Goals Goal Patient Goal Type Associated Problems Recent Progress Patient-Stated? Author Blood Pressure < 140/90 Blood Pressure 134/84(2023 1:16 PM EST) No Yana Choi RMA Eat better, exercise, reach an ideal body weight General No Yana Choi RMA Stay Tobacco Free Lifestyle No Yana Choi RMA documented as of this encounter Visit Diagnoses Diagnosis Primary osteoarthritis of right knee- Primary Primary localized osteoarthrosis, lower leg Primary osteoarthritis of left knee Primary localized osteoarthrosis, lower leg documented in this encounter Administered Medications Inactive Administered Medications - up to 1 most recent administrations Medication Order MAR Action Action Date Dose Rate Site methylPREDNISolone acetate (DEPO-MEDROL) injection 40 mg 40 mg, Intramuscular, ONCE, 1 dose, On Mon12/19/16 at 0845, Dx: 1. Primary osteoarthritis of right kneeIndications:Primary osteoarthritis of right knee Given 12/19/2016 8:45 AM EDT 40 mg Right Leg methylPREDNISolone acetate (DEPO-MEDROL) injection 40 mg 40 mg, Intramuscular, ONCE, 1 dose, On Mon12/19/16 at 0845, Dx: 1. Primary osteoarthritis of left kneeIndications:Primary osteoarthritis of left knee Given 12/19/2016 8:43 AM EDT 40 mg Left Leg documented in this encounter Additional Health Concerns Infection Onset Date Last Indicated Resolved Time MRSA 09/07/2016 09/07/2016 04/03/2017 9:55 AM EDT documented as of this encounter Care Teams Bun Machine Operator Relationship Specialty Start Date End Date Renu Doll MD PCP - General Family Medicine 10/12/15 01/08/17 documented as of this encounter
--- OUTSIDE RECORDS SUMMARY | 2024-05-29 15:52 | XMS_ITS | Encounter Summary ---
Author Organization [place] [address] Care Team Providers Care Warehouse Order Picker Name Role Phone Michelle Garrido APRN Primary Care Provider Willie aguila Encounter Details Date Type Department Care Team (Late st Contact Info) Description 05/09/2017 10:48 AM [facility] Hospital Encounter [facility] Referral Lab [address] [place] [address] Augie Ramires MD [address] [place] [address] Pain in left hip; Presence [...] AM EST Clinical Support [facility] [address] [place] [address] 11/19/2024 1:40 PM EDT Office Visit [facility]rology [facility] [address] [place] [address] Lyndsay Brewer DO [address] [place] [address] documented as of this encounter Goals Goal Patient Goal Type Associated Problems Recent Progress Patient-Stated? Author Blood Pressure < 140/90 Blood Pressure 134/84(2023 1:16 PM EST) No Yana Choi RMA Eat better, exercise, reach an ideal body weight General No Yana Choi RMA Stay Tobacco Free Lifestyle No Yana Choi RMA documented as of this encounter Results * (ABNORMAL) COBALT - REF LAB (05/09/2017 10:55 AM EST) Defiance 13.0(H) <=1.0 ug/L 05/11/2017 5:14 AM EST [facility] Comment: If uncertainty exists regarding the type of blood tube used to collect this specimen, testing should be repeated with a second specimen collected in a certified metal-free tube. Elevated results determined with specimens collected in noncertified metal-free blood tubes may reflect contamination of the tube itself. INTERPRETIVE INFORMATION: Defiance, Serum or Plasma Serum cobalt levels can be used in the assessment of occupational exposure or toxic ingestion and is the preferred specimen type for evaluating metal ion release from vwuhl-oa-bkwym joint arthroplasty. Serum cobalt levels may be increased in asymptomatic patients with awnqe-me-cmtad prosthetics and should be considered in the context of the overall clinical scenario. Symptoms associated with cobalt toxicity vary based on route of exposure, and may include cardiomyopathy, allergic dermatitis, pulmonary fibrosis, cough and dyspnea. Test developed and characteristics determined by [facility]. See Compliance Statement B: [facility] Performed by [facility], [address] [place] [address] [email or web address], Pal Zaragoza MD, Lab. Director Blood Venipuncture / Unknown 05/09/2017 10:55 AM EST 05/09/2017 10:55 AM EST Augie Ramires MD CHEMISTRY ORDERABLES Final Result [facility] [address] [place] [address] * (ABNORMAL) CHROMIUM - REF LAB (05/09/2017 10:55 AM EST) Chromium 9.5(H) <=5.0 ug/L 05/10/2017 2:39 PM EST [facility] Comment: If uncertainty exists regarding the type [...] type for evaluating metal ion release from nfora-cu-pwcqe joint arthroplasty. Serum chromium levels may be increased in asymptomatic patients with gdqdi-an-kqusy prosthetics and should be considered in the [...] necrosis. Test developed and characteristics determined by [facility]. See Compliance Statement B: [facility] Performed by [facility], [address] [place] [address] [email or web address], Pal Zaragoza MD, Lab. Director Blood Venipuncture / Unknown 05/09/2017 10:55 AM EST 05/09/2017 10:55 AM EST us Augie Ramires MD CHEMISTRY ORDERABLES Final Result [facility] [address] [place] [address] documented in this encounter Visit Diagnoses Diagnosis Pain in left hip Pain in joint, pelvic region and thigh Presence of left artificial hip joint Hip joint replacement by other means documented in this encounter Additional Health Concerns [...] documented as of this encounter Care Teams Warehouse Order Picker Relationship Specialty Start Date End Date Michelle Garrido, MARKETING TECHNOLOGIST PCP - General Nurse Practitioner 01/09/17 01/14/21 documented as of this encounter
--- OUTSIDE RECORDS SUMMARY | 2024-05-29 15:52 | XMS_ITS | Encounter Summary ---
Author Organization [place] [address] Care Team Providers Care Enrollment Management Coordinator Name Role Phone Renu Doll MD Primary Care Provider Collin rudd Reason for Visit * Reason Onset Date Comments Prior Authorization 12/19/2016 Encounter Details Date Type Department Care Team (Late Contact Info) Description 12/19/2016 Telephone [facility] [address] [place] [address] Michelle Garrido APRN Prior Authorization Social [...] Telephone Encounter - Farzana Soria MA - 12/19/2016 2:38 PM EDT PA was completed over the phone, Shayy approved september 20 2016 to December 19 2017. NA when attempting to call pt to inform him. documented in this encounter Plan of Treatment Upcoming Encounters Date Type Department Care Team (Late st Contact Info) Description 06/28/2024 9:40 AM EST Clinical Support [facility] [address] [place] [address] 11/19/2024 1:40 PM EDT Office Visit [facility] [address] [place] [address] Lyndsay Brewer, DO [address] [place] [address] documented as of this encounter [...] documented as of this encounter Care Teams Enrollment Management Coordinator Relationship Specialty Start Date End Date Renu Doll MD PCP - General Family Medicine 10/12/15 01/08/17 documented as of this encounter
--- OUTSIDE RECORDS SUMMARY | 2024-05-29 15:52 | XMS_ITS | Encounter Summary ---
Author Organization [place] [address] Care Team Providers Care Jewelry Estimator Name Role Phone Michelle Garrido APRN Primary Care Provider Unava ilable Reason for Visit * Reason Comments Irritable Bowel Syndrome 1 month check u p Encounter Details Date Type Department Care Team (Latest Contact Info) Description 01/25/2017 8:00 AM EDT Office Visit [facility] [address] [place] [address] Michelle Garrido APRN Post-traumatic osteoarthritis of left elbow (Primary Dx); Irritable bowel syndrome with diarrhea; Primary osteoarthritis of both knees Social History Tobacco Use Types Packs/Day Years [...] Reading Time Taken Comments Blood Pressure 144/86 01/25/2017 8:04 AM EDT Pulse 81 01/25/2017 8:04 AM EDT Temperature 36.5 ??C (97.7 ??F) 01/25/2017 8:04 AM ED T Respiratory Rate 18 01/25/2017 8:04 AM EDT Oxygen Saturation 98% 01/25/2017 8:04 AM EDT Inhaled Oxygen Concentration - - Weight 89.8 kg (198 lb) 01/25/2017 8:04 AM EDT Height 170.2 cm (5' 7 ) 01/25/2017 8:04 AM EDT Body Mass Index 31.01 01/25/2017 8:04 AM EDT documented in this encounter Ordered Prescriptions Prescription Sig Dispense Quantity Refills Last Filled Start Date End Date eluxadoline 100 mg Oral TabletIndications:I rritable bowel syndrome with diarrhea Take 100 mg by mouth 2 times daily. 60 Tab 01/25/2017 02/28/2017 documented in this encounter Progress Notes * Michelle Garrido, STABILIZING MACHINE OPERATOR - 01/25/2017 8:00 AM EDT Diagnoses and all orders for this visit: 1. Post-traumatic osteoarthritis of left elbow Continue to follow up with ortho for steroid injections to manage chronic pain PRN 2. Irritable bowel syndrome with diarrhea - eluxadoline 100 mg Oral Tablet; Take 100 mg by mouth 2 times daily. Dispense: 60 Tab; Refill: 0 3. Primary osteoarthritis of both knees May receive steroid injections every 3 mos in this office. Subjective Chief Complaint Patient presents with ??? Irritable Bowel Syndrome 1 month check up Patient is here for a 1 month check up for his IBS ?? States medication is working really well for him, and stooling pattern is as close to normal as he can remember. He was previously concerned about viberzi r/t it being a controlled substance. 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 Pt reports marked improvement in bilateral knee pain after steroid injections done late November in this office. Pt saw ortho for post-traumatic osteoarthritis of left elbow. Pt was ruled out as a candidate for surgical intervention. He was given steroid injection and he reports moderate improvement of his painand function. Review of Systems Constitutional: Negative for appetite change, chills, fatigue and fever. Respiratory: Negative for shortness of breath. Cardiovascular: Negative for chest pain. Gastrointestinal: Negative for nausea and vomiting. Neurological: Negative for light-headedness and headaches. All other systems reviewed and are negative. Objective BP 144/86 (BP Location: Left arm, Patient Position: Sitting) Pulse 81 Temp 97.7 ??F (36.5 ??C) (Oral) Resp 18 Ht 5' 7 (1.702 m) Wt 198 lb (89.8 kg) SpO2 98% BMI 31.01 kg/m?? Physical Exam Constitutional: He appears well-developed and well-nourished. Cardiovascular: Normal rate. Pulmonary/Chest: Effort normal. Skin: Skin is warm and dry. Psychiatric: He has a normal mood and affect. His behavior is normal. [facility] Documentation Medication Compliance - compliant most of the time Understanding of current medications - good Self-Management Tools - none Self-Management Ability - good Willingness to adopt healthy behaviors - good Patient Barriers: no significant Existing barriers discussed and addressed in orders and /or referrals. Educated patient regarding the diagnosis, medication/treatment, goals, self- management tools and instructions based on their care plan. They verbalized understanding of the education given on the After Visit Summary [AVS] for today's visit. A copy of the AVS was provided either in writing and/or via [employer]. A new medicine was not prescribed on this visit. documented in this encounter Miscellaneous Notes * Patient Instructions - Toma Ye CCMA - 01/25/2017 8:00 AM EDT You may be contacted by [...] AM EST Clinical Support ANTOLIN [place] [address] [place] [phone] 11/19/2024 1:40 PM EDT Office Visit [facility]rology [facility] [address] [place] [address] Lyndsay Brewer DO [address] [place] [address] documented as of this encounter Goals Goal Patient Goal Type Associated Problems Recent Progress Patient-Stated? Author Blood Pressure < 140/90 Blood Pressure 134/84(2023 1:16 PM EST) No Yana Choi RMA Eat better, exercise, reach an ideal body weight General No Yana Choi RMA Stay Tobacco Free Lifestyle No aYna Choi RMA documented as of this encounter Visit Diagnoses Diagnosis Post-traumatic osteoarthritis of left elbow- Primary Secondary localized osteoarthrosis, upper arm Irritable bowel syndrome with diarrhea Irritable bowel syndrome Primary osteoarthritis of both knees Primary localized osteoarthrosis, lower leg documented in this encounter Discontinued Medications Medication Sig Discontinue Reason Start Date End Da te eluxadoline 100 mg Oral TabletIndications:Irritab le bowel syndrome with diarrhea Take 100 mg by mouth 2 times daily. Reorder 12/16/2016 01/25/2017 documented as of this encounter Additional Health Concerns Infection Onset Date Last Indicated Resolved Time MRSA 09/07/2016 09/07/2016 04/03/2017 9:55 AM EDT documented as of this encounter Care Teams Jewelry Estimator Relationship Specialty Start Date End Date Michelle Garrido APRN PCP - General Nurse Practitioner 01/09/17 01/14/21 documented as of this encounter
--- OUTSIDE RECORDS SUMMARY | 2024-05-29 15:53 | XMS_ITS | Encounter Summary ---
Author Organization [place] [address] Care Team Providers Care Garment Fitter Name Role Phone Renu Doll MD Primary Care Provider Collin rudd Reason for Visit * Reason Onset Date Comments Other 03/23/2016 Encounter Details Date Type Department Care Team (Late st Contact Info) Description 03/23/2016 Telephone [facility] [address] [place] [address] Renu Doll MD Other Social History Tobacco Use Types Packs/Day [...] Miscellaneous Notes * Telephone Encounter - Mckenzie Muro RMA - 03/23/2016 5:27 PM EDT Pt is aware, I did get him scheduled. * Telephone Encounter - Renu Doll MD - 03/23/2016 5:18 PM EDT That is fine. Place him on tomorrow schedule. * Telephone Encounter - Mckenzie Muro RMA - 03/23/2016 4:57 PM EDT Patient thinks he could have an ear infection. Wanted an antibiotic called in, or is wondering if you would squeeze him in when his girls come in tomorrow afternoon to look at his ear. * Telephone Encounter - Yvrose Solis - 03/23/2016 12:35 PM EDT Requesting to speak to MA: Has a dental appt on Monday, has an ear infection. documented in this encounter Plan of Treatment Upcoming Encounters Date Type Department Care Team (Late st Contact Info) Description 06/28/2024 9:40 AM EST Clinical Support [facility] [address] [place] [address] 11/19/2024 1:40 PM EDT Office Visit [facility]rology [facility] [address] [place] [address] Lyndsay Brewer DO [address] [facility] [address] [place] [address] documented as of this encounter Visit Diagnoses Not on filedocumented in this encounter Care Teams Garment Fitter Relationship Specialty Start Date End Date Renu Doll MD PCP - General Family Medicine 10/12/15 01/08/17 documented as of this encounter
--- OUTSIDE RECORDS SUMMARY | 2024-05-29 15:53 | XMS_ITS | Encounter Summary ---
Author Organization [place] [address] Care Team Providers Care Final Cleaner Name Role Phone Renu Doll MD Primary Care Provider Collin rudd Reason for Visit * Reason Onset Date Comments Medication Refill 02/09/2016 Encounter Details Date Type Department Care Team (Late Contact Info) Description 02/09/2016 Telephone [facility] [address] [place] [address] Renu Doll MD Medication Refill Social [...] encounter Miscellaneous Notes * Telephone Encounter - Orquidea Velasquez - 06/03/2016 3:04 PM EST Patient needs you to call in the rx for his cialis. ??The rx was sent to pharmacy but it has to be called in for them to fill it documented in this encounter Plan of Treatment Upcoming Encounters Date Type Department Care Team (Late Contact Info) Description 06/28/2024 9:40 AM EST Clinical Support [facility] [address] [place] [phone] 11/19/2024 1:40 PM EDT Office Visit [facility] Neurology [facility] [address] [place] [address] Lyndsay Brewer DO [address] [place] [address] documented as of this encounter Visit Diagnoses Not on filedocumented in this encounter Care Teams Final Cleaner Relationship Specialty Start Date End Date Renu Doll MD PCP - General Family Medicine 10/12/15 01/08/17 documented as of this encounter
--- OUTSIDE RECORDS SUMMARY | 2024-05-29 15:53 | XMS_ITS | Encounter Summary ---
Author Organization [place] [address] Care Team Providers Care Oil Separator Name Role Phone Renu Doll MD Primary Care Provider Collin rudd Reason for Visit * Reason Comments Blister left foot * Consultation (Routine) - Closed Specialty Diagnoses / Procedures Referred By Contac t Referred To Contact Podiatry Diagnoses MRSA (methicillin resistant staph aureus) culture positive Blister of foot with infection, left, subsequent encounter Michelle Garrido, Jovanny Alcantara DPM Referral ID Status Reason Start Date Expiration Date Visits Re quested Visits Authorized [id number] Closed 10/12/2016 10/12/2017 99 [phone] Encounter Details Date Type Department Care Team (Late st Contact Info) Description 10/12/2016 8:30 AM EDT [facility] [address] [address] [place] [address] Jovanny Anderson DPM Intertrigo (Primary Dx); Pain of toe of left foot; Tinea Social History Tobacco Use Types Packs/Day Years [...] - Inhaled Oxygen Concentration - - Weight 91.2 kg (201 lb) 10/12/2016 9:01 AM EDT Height 170.2 cm (5' 7 ) 10/12/2016 9:01 AM EDT Body Mass Index 31.48 10/12/2016 9:01 AM EDT documented in this encounter Ordered Prescriptions Prescription Sig Dispense Quantity Refills Last Filled Start Date End Date Terbinafine (LAMISIL AT) 1 % Top GelIndications:In tertrigo,Pain of toe of left foot,Tinea Apply 1 Applicatorful topically 2 times daily. 1 Tube 2 10/12/2016 07/11/19 18 miconazole (MICATIN) 2 % Top PowderIndications :Intertrigo,Pain of toe of left foot,Tinea Apply topically 2 times daily. 30 g 10/12/2016 07/11/19 18 documented in this encounter Progress Notes * Jovanny Anderson DPM - 10/12/2016 8:30 AM EDT [facility] Podiatric Surgery Outpatient Progress Note Snoja KirkPSherry Name: Zuhair Whitlock Primary Care Physician: Renu Doll MD Chief Complaint: Chief Complaint Patient presents with ??? Blister left foot History of Presenting Illness: Zuhair Whitlock is a 50 y.o. male with who is here to be evaluated for LEFT foot pain. They have been experiencing the problem in left for MONTHS . The quality is throbbing type intermittent pain. The context is reported as weight bearing. The severity of the pain is getting worse. Past treatments reported as none. Aggravation is experienced from pressure. Patient described the following signs and symptoms: pain. Medications: Outpatient Prescriptions Marked as Taking for the 10/12/16 encounter (Office Visit) with Jovanny Anderson DPM Medication Sig Dispense Refill ??? albuterol (PROVENTIL) 5 mg/mL Inhl Solution for Nebulization Take 5 mg/hr by nebulization continuous. 40 mL 2 ??? albuterol (VENTOLIN HFA) 90 mcg/actuation Inhl HFA Aerosol Inhaler USE 1 OR 2 PUFFS EVERY 4 HOURS NEEDED FOR WHEEZING. 3 Inhaler 2 ??? CIALIS 5 mg Oral Tablet TAKE 1 TABLET BY MOUTH NEEDED FOR ERECTILE DYSFUNCTION 90 Tab 0 ??? dicyclomine (BENTYL) 10 mg Oral Capsule TAKE 2 CAPSULES BY MOUTH 4 TIMES A DAY 360 Cap 1 ??? fluticasone-salmeterol (ADVAIR) 500-50 mcg/dose Inhl Disk with Device Inhale 1 Puff into the lungs 2 times daily. 2 Inhaler 2 ??? losartan-hydrochlorothiazide (HYZAAR) 50-12.5 mg Oral Tablet Take 1 Tab by mouth daily. 90 Tab 2 ??? metroNIDAZOLE (METROGEL) 0.75 % Top Gel Apply topically 2 times daily. 70 g 0 ??? Nebulizer Accessories (ALL FLOW 4000 KIT) Misc Formulary equivalent 1 Each 0 ??? Nebulizers (SANG BABY NEBULIZER) Misc Formulary equivalent 1 Each 0 Allergies Allergen Reactions ??? Abilify [Aripiprazole] Other (See Comments) convulsions ??? Morphine Other (See Comments) Mood swings ??? Nsaids (Non-Steroidal Anti-Inflammatory Drug) ??? Unable To Assess Patient does not take any narcotic medications Past Medical History: Diagnosis Date ??? Arrhythmia ??? Arthritis ??? Asthma 06/02/2010 ??? Bipolar affective (HCC) ??? Blood transfusion ??? EPHRAIM (generalized anxiety disorder) ??? Heart attack (HCC) ??? Heroin abuse Remission 3 years. ??? Hypertension ??? IBS (irritable bowel syndrome) ??? Opiate dependence (HCC) Remission x 5 years ??? Pneumonia ??? Pneumothorax Past Surgical History: Procedure Laterality Date ??? ELBOW SURGERY ??? EYE SURGERY ??? FRACTURE SURGERY left leg ??? HERNIA REPAIR ??? JOINT REPLACEMENT left hip ??? KNEE SURGERY both ??? TOTAL HIP ARTHROPLASTY Family History Problem Relation Age of Onset ??? Diabetes Mother ??? Heart Disease Mother ??? High Blood Pressure Mother ??? High Cholesterol Mother ??? Cancer Father Social History: Zuhair's social history reviewed: Social History Social History ??? Marital status: Spouse name: N/A ??? Number of children: N/A ??? Years of education: N/A Social History Main Topics ??? Smoking status: Never Smoker ??? Smokeless tobacco: Current User Types: Snuff ??? Alcohol use No ??? Drug use: None ??? Sexual activity: Not Asked Other Topics Concern ??? None Social History Narrative Review of Systems: The following systems were reviewed and revealed the following in addition to any already discussedin the HPI: ?? Constitutional: Age appropriate, denies F/C/N/V/SOB HENT: NEG: difficulty swallowing Respiratory: NEG: shortness of breath and chest pain Cardiovascular: NEG: syncope and chest pain Gastrointestinal: NEG: nausea and vomiting Musculoskeletal: Negative except per physical exam Integumentary: NEG: bruising, chronic wound and lacerations Hematology / Lymphatics: NEG: bruises and bleeding problems Psychiatric: Mood/affect APPROPRIATE Physical Examination: Vital Signs: Visit Vitals ??? Ht 5' 7 (1.702 m) ??? Wt 201 lb (91.2 kg) ??? BMI 31.48 kg/m2 General: Zuhair appears in no acute distress Skin: warm, dry, and intact Head: Normocephalic, without obvious abnormality, atraumatic Lungs: Breathing unlabored Neurological: sensation grossly normal. LE exam separate. Extremities/Musculoskeletal: See Focused Exam LOWER EXTREMITY FOCUSED EXAM: Lower Extremity Exam: Vascular Exam: Pedal pulses INTAQCT for dorsalis pedis and posterior tibial arteries bilaterally. Capillary refill time < 3 seconds to digits 1-5 bilaterally. No vascular lesions or varicosities bilaterally. Neuro Exam: Sensation INTACT to light touch. Musc Exam: Muscle strength 5/5 for lower extremity extrinsic musculature bilaterally. Derm Exam: Skin texture and turgor are within normal limits. LEFT FOOT 4th interspace with itching and flaking. Assessment: Zuhair Whitlock was seen today for Chief Complaint Patient presents with ??? Blister left foot . Zuhair was seen today for blister. Diagnoses and all orders for this visit: Intertrigo - miconazole (MICATIN) 2 % Top Powder; Apply topically 2 times daily. - Terbinafine (LAMISIL AT) 1 % Top Gel; Apply 1 Applicatorful topically 2 times daily. Pain of toe of left foot - miconazole (MICATIN) 2 % Top Powder; Apply topically 2 times daily. - Terbinafine (LAMISIL AT) 1 % Top Gel; Apply 1 Applicatorful topically 2 times daily. Tinea - miconazole (MICATIN) 2 % Top Powder; Apply topically 2 times daily. - Terbinafine (LAMISIL AT) 1 % Top Gel; Apply 1 Applicatorful topically 2 times daily. Plan: Use above and betadine F/u 2 weeks B. Monica D.P.M. 10/12/2016 documented in this encounter Miscellaneous Notes * Patient Instructions - Patricia Meadows CMA - 10/12/2016 9:04 AM EDT Hand Washing Germs like bacteria, viruses, and parasites are found everywhere. They can be in the air and water,and they can be on surfaces like food, door handles, and your skin. Every day, your hands come intocontact with germs, many of which can make you and your family sick. Washing your hands is one of the easiest and most effective ways to reduce your risk of aura and sharing germs. WHEN SHOULD I WASH MY HANDS? You should wash your hands whenever you think they are dirty. You should also wash your hands: ?? Before: Visiting a baby or anyone with a weakened or lowered defense (immune) system. Putting in and taking out any contact lenses. ?? After: Working or playing outside. Touching an animal or its toys or leash. Handling livestock. Using the bathroom. Using household nursing surgical services director or toxic chemicals. Touching or taking out the garbage. Touching anything dirty around your home. Handling soiled clothes or rags. Taking care of a sick child. This includes touching used tissues, toys, and clothes. Sneezing, coughing, or blowing your nose. Using public transportation. Shaking hands. Using a phone, including your mobile phone. Touching money. ?? Before and after: Preparing food. Preparing a bottle for a baby. Feeding a baby or young child. Eating. Visiting or taking care of someone who is sick. Changing a diaper. Changing a bandage (dressing) or taking care of an injury or wound. Giving or taking medicine. WHAT IS THE CORRECT WAY TO WASH MY HANDS? ?? Wet your hands with clean, running water. ?? Apply liquid soap or bar soap to your hands. ?? Rub your hands together quickly to create lather. ?? Keep rubbing your hands together for at least 20 seconds. Thoroughly scrub all parts of your hands, including under your fingernails and between your fingers. ?? Rinse your hands with clean, running water until all the soap is gone. ?? Dry your hands using an air dryer or a clean paper or cloth towel, or let your hands air-dry. Donot use your clothing or a soiled towel to dry your hands. ?? If you are in a public restroom, use your towel: To turn off the water faucet. To open the bathroom door. HOW CAN I CLEAN MY HANDS IF I DO NOT HAVE SOAP AND WATER? If soap and clean water are not available, use an alcohol-based wipe, spray, or hand gel. Use a hand-sanitizing agent that contains at least 60% alcohol. If you are preparing food, hand sanitizers are not recommended as a substitute for hand washing. To use a hand nurse sexual assault, follow the directions provided on the product, and: ?? Apply an adequate amount of the product to your hands. ?? Make sure you wipe, rub, or spray the product so that it reaches every part of your hands and wrists. Include the backs of your hands, between your fingers, and under your fingernails. ?? Rub the product onto your hands until it dries. This information is not intended to replace advice given to you by your health care provider. Make sure you discuss any questions you have with your health care provider. Document Released: 01/31/2006 Document Revised: 07/03/2015 Document Reviewed: 11/07/2014 [employer] Patient Education ??2016 [employer] documented in this encounter Plan of Treatment Upcoming Encounters Date Type Department Care Team (Late st Contact Info) Description 06/28/2024 9:40 AM EST Clinical Support [facility] [address] [place] [address] 11/19/2024 1:40 PM EDT Office Visit [facility] Neurology [facility] [address] [place] [id number] Lyndsay Brewer DO [address] [place] [address] documented as of this encounter Goals Goal Patient Goal Type Associated Problems Recent Progress Patient-Stated? Author Blood Pressure < 140/90 Blood Pressure 134/84(2023 1:16 PM EST) No Yana Choi RMA Eat better, exercise, reach an ideal body weight General No Yana Choi RMA Stay Tobacco Free Lifestyle No Yana Choi RMA documented as of this encounter Visit Diagnoses Diagnosis Intertrigo- Primary Other specified erythematous condition Pain of toe of left foot Pain in limb Tinea Dermatophytosis of unspecified site documented in this encounter Additional Health Concerns Infection Onset Date Last Indicated Resolved Time MRSA 09/07/2016 09/07/2016 04/03/2017 9:55 AM EDT documented as of this encounter Care Teams Oil Separator Relationship Specialty Start Date End Date Renu Doll MD PCP - General Family Medicine 10/12/15 01/08/17 documented as of this encounter
--- OUTSIDE RECORDS SUMMARY | 2024-05-29 15:53 | XMS_ITS | Encounter Summary ---
Author Organization [place] [address] Care Team Providers Care Field Laboratory Operator Name Role Phone Renu Doll MD Primary Care Provider Collin rudd Reason for Visit * Reason Onset Date Comments Medication Refill 01/21/2016 Encounter Details Date Type Department Care Team (Late st Contact Info) Description 01/21/[address] [facility] [employer] [address] [place] [address] Renu Doll MD Medication Refill [...] Refills Last Filled Start Date End Date dicyclomine (BENTYL) 10 mg Oral Capsule Take 1 Cap by mouth 4 times daily for 14 days. 56 Cap 0 01/21/2016 6 tadalafil (CIALIS) 5 mg Oral Tablet Take 1 Tab by mouth as needed for Erectile Dysfunction. 30 Tab 0 01/21/2016 6 losartan-hydrochlo rothiazide (HYZAAR) 50-12.5 mg Oral TabletIndications: Encounter for medication refill Take 1 Tab by mouth daily. 30 Tab 2 01/21/2016 6 documented in this encounter Miscellaneous Notes * Telephone Encounter - Mckenzie Muro RMA - 01/21/2016 12:06 PM EDT sent * Telephone Encounter - Glenis Bae - 01/21/2016 11:06 AM EDT losartan-hydrochlorothiazide (HYZAAR) 50-12.5 mg Oral Tablet dicyclomine (BENTYL) 10 mg Oral Capsule Tadalafil (CIALIS) 5 mg Tab Pharm would like a note on the Cialis to profile it. The patient doesn't need it right now but theywanted a new Rx. documented in this encounter Plan of Treatment Upcoming Encounters Date Type Department Care Team (Late st Contact Info) Description 06/28/2024 9:40 AM EST Clinical Support ANTOLIN [place] [address] [place] [address] 11/19/2024 1:40 PM EDT Office Visit SE[facility] Neurology [facility] [address] [place] [address] Lyndsay Brewer [address] [facility] [address] [place] [address] documented as of this encounter Visit Diagnoses Diagnosis Encounter for medication refill- Primary Issue of repeat prescriptions documented in this encounter Discontinued Medications Medication Sig Discontinue Reason Start Date End Da te losartan-hydrochlorothi azide (HYZAAR) 50-12.5 mg Oral TabletIndications:Encou nter for medication refill Take 1 Tab by mouth daily. Reorder 10/05/2015 01/21/2016 tadalafil (CIALIS) 5 mg tablet Take 1 Tab by mouth as needed for Erectile Dysfunction. Reorder 05/06/2011 01/21/2016 documented as of this encounter Care Teams Field Laboratory Operator Relationship Specialty Start Date End Date Renu Doll MD PCP - General Family Medicine 10/12/15 01/08/17 documented as of this encounter
--- OUTSIDE RECORDS SUMMARY | 2024-05-29 15:53 | XMS_ITS | Encounter Summary ---
Author Organization [place] [address] Care Team Providers Care Teenage Program Director Name Role Phone Renu Doll MD Primary Care Provider Collin rudd Encounter Details Date Type Department Care Team (Late Contact Info) Description 02/02/2016 Orders Only [facility] [address] [place] [phone] Mckenzie Muro RMA Moderate persistent asthma without complication (Primary Dx) Social History Tobacco [...] EST Clinical Support [facility] [address] [place] [phone] 11/19/2024 1:40 PM EDT Office Visit [facility] Neurology [facility] [address] [place] [address] Lyndsay Brewer DO [address] [facility] [address] [place] [address] documented as of this encounter Goals Goal Patient Goal Type Associated Problems Recent Progress Patient-Stated? Author Blood Pressure < 140/90 Blood Pressure 134/84(2023 1:16 PM EST) No Yana Choi, RMA documented as of this encounter Visit Diagnoses Diagnosis Moderate persistent asthma without complication- Primary Unspecified asthma documented in this encounter Care Teams Teenage Program Director Relationship Specialty Start Date End Date Renu Doll MD PCP - General Family Medicine 10/12/15 01/08/17 documented as of this encounter
--- OUTSIDE RECORDS SUMMARY | 2024-05-29 15:53 | XMS_ITS | Encounter Summary ---
Author Organization [place] [address] Care Team Providers Care Account Executive Key Accounts Name Role Phone Renu Doll MD Primary Care Provider Collin rudd Reason for Visit * Reason Onset Date Comments Medication Refill 02/03/2016 Encounter Details Date Type Department Care Team (Late st Contact Info) Description 02/03/2016 Refill [facility] [address] [place] [address] Renu Doll MD Medication Refill [...] obstruction Take 1 Tab by mouth as needed for Erectile Dysfunction. 30 Tab 0 02/03/2016 6 documented in this encounter Miscellaneous Notes * Telephone Encounter - Mckenzie Muro RMA - 02/09/2016 11:24 AM EDT Phoned into pharmacy, they said they would let pt know when it was ready. documented in this encounter Plan of Treatment Upcoming Encounters Date Type Department Care Team (Late st Contact Info) Description 06/28/2024 9:40 AM EST Clinical Support [facility] [address] [place] [phone] 11/19/2024 1:40 PM EDT Office Visit SEP Neurology [facility] [address] [place] [address] Lyndsay Brewer [address] [place] [address] documented as of this encounter Visit Diagnoses Diagnosis BPH without urinary obstruction- Primary Hypertrophy of prostate without urinary obstruction and other lower urinary tract symptoms (LUTS) documented in this encounter Discontinued Medications Medication Sig Discontinue Reason Start Date End Da te tadalafil (CIALIS) 5 mg Oral TabletIndications:BPH without urinary obstruction Take 1 Tab by mouth as needed for Erectile Dysfunction. Reorder 02/02/2016 02/03/2016 documented as of this encounter Care Teams Account Executive Key Accounts Relationship Specialty Start Date End Date Renu Doll MD PCP - General Family Medicine 10/12/15 01/08/17 documented as of this encounter
--- OUTSIDE RECORDS SUMMARY | 2024-05-29 15:53 | XMS_ITS | Encounter Summary ---
Author Organization [place] [address] Care Team Providers Care Food Manager Name Role Phone Renu Doll MD Primary Care Provider Collin rudd Reason for Visit * Reason Onset Date Comments Medication Refill 01/04/2016 Encounter Details Date Type Department Care Team (Late st Contact Info) Description 01/04/2016 Telephone [facility] [address] [place] [address] Renu Doll MD Medication Refill [...] EVERY 4 HOURS NEEDED FOR WHEEZING. 1 Inhaler 5 01/04/2016 03/30/2016 documented in this encounter Miscellaneous Notes * Telephone Encounter - Mckenzie Muro RMA - 01/04/2016 6:02 PM EDT Sent * Telephone Encounter - Yvrose Solis 01/04/2016 2:22 PM EDT Refill: albuterol (VENTOLIN HFA) 90 mcg/actuation Inhl HFA Aerosol Inhaler [id number] [place] [address] [address] [facility] - [phone] documented in this encounter Plan of Treatment Upcoming Encounters Date Type Department Care Team (Late st Contact Info) Description 06/28/2024 9:40 AM EST Clinical Support [facility] [place] [address] [place] [address] 11/19/2024 1:40 PM EDT Office Visit [facility] Neurology [facility] [address] [place] [address] Lyndsay Brewer [address] [place] [address] documented as of this encounter Visit Diagnoses Diagnosis Encounter for medication refill- Primary Issue of repeat prescriptions documented in this encounter Discontinued Medications Medication Sig Discontinue Reason Start Date End Da te albuterol (VENTOLIN HFA) 90 mcg/actuation Inhl HFA Aerosol InhalerIndications:Encou nter for medication refill USE 1 OR 2 PUFFS EVERY 4 HOURS NEEDED FOR WHEEZING. Reorder 10/05/2015 01/04/2016 documented as of this encounter Care Teams Food Manager Relationship Specialty Start Date End Date Renu Doll MD PCP - General Family Medicine 10/12/15 01/08/17 documented as of this encounter
--- OUTSIDE RECORDS SUMMARY | 2024-05-29 15:53 | XMS_ITS | Encounter Summary ---
Author Organization [place] [address] Care Team Providers Care Traffic Superintendent Name Role Phone Renu Doll MD Primary Care Provider Collin rudd Reason for Visit * Reason Comments Otalgia x 5 days ago Jaw Pain x 5 days ago Encounter Details Date Type Department Care Team (Late st Contact Info) Description 03/24/2016 4:30 PM EDT Office Visit [facility] [place] [address] [place] [address] Renu Doll MD Pain, dental (Primary Dx) Social History Tobacco Use Types Packs/Day Years Used Date Smoking Tobacco: Never Smokeless Tobacco: Current Snuff Tobacco Cessation:Ready to Q uit: No; Counseling Given: No Alcohol Use Standard Drinks/Week Comments No 0 (1 standard drink = 0.6 oz pur e alcohol) Sex and Gender Information Value Date Recorded Sex Assigned at Not on file Legal Sex Male 8:00 PM EDT Gender Identity Not on file Sexual Orientation Not on file documented as of this encounter Last Filed Vital Signs Vital Sign Reading Time Taken Comments Blood Pressure 122/80 03/24/2016 3:02 PM EDT Pulse - - Temperature 36.7 ??C (98 ??F) 03/24/2016 3:02 PM EDT Respiratory Rate - - Oxygen Saturation - - Inhaled Oxygen Concentration - - Weight 94.8 kg (209 lb) 03/24/2016 3:02 PM EDT Height 170.2 cm (5' 7 ) 03/24/2016 3:02 PM EDT Body Mass Index 32.73 03/24/2016 3:02 PM EDT documented in this encounter Ordered Prescriptions Prescription Sig Dispense Quantity Refills Last Filled Start Date End Date amoxicillin (AMOXIL) 250 mg Oral CapsuleIndications: Pain, dental Take 1 Cap by mouth 3 times daily for 7 days. 21 Cap 03/24/2016 03/31/2016 documented in this encounter Progress Notes * Renu Doll MD - 03/24/2016 4:30 PM EDT Zuhair Whitlock is a 50 y.o. male Subjective Chief Complaint Patient presents with ??? Otalgia x 5 days ago ??? Jaw Pain x 5 days ago Patient is coming in because he is having left sided ear and jaw pain. He believes he has an infection in his ear or his tooth. Review of Systems Constitutional: Negative for chills and fever. HENT: Positive for ear pain. Negative for congestion, sinus pressure and trouble swallowing. Eyes: Negative for visual disturbance. Respiratory: Negative for cough. Cardiovascular: Negative for chest pain and leg swelling. Gastrointestinal: Negative for abdominal pain, constipation, diarrhea, nausea and vomiting. Endocrine: Negative for polyuria. Genitourinary: Negative for dysuria and urgency. Musculoskeletal: Negative for arthralgias. Skin: Negative for color change and rash. Neurological: Negative for headaches. Psychiatric/Behavioral: Negative for dysphoric mood. The patient is not nervous/anxious. Objective Visit Vitals ??? BP 122/80 (BP Location: Left arm, Patient Position: Sitting) ??? Temp 98 ??F (36.7 ??C) (Oral) ??? Ht 5' 7 (1.702 m) ??? Wt 209 lb (94.8 kg) ??? BMI 32.73 kg/m2 Physical Exam HENT: Right Ear: Hearing, tympanic membrane, external ear and ear canal normal. Left Ear: Hearing and external ear normal. Cardiovascular: Normal rate and regular rhythm. Pulmonary/Chest: Effort normal and breath sounds normal. No respiratory distress. Nursing note and vitals reviewed. Assessment and Plan Zuhair was seen today for otalgia and jaw pain. Diagnoses and all orders for this visit: Pain, dental Orders: - amoxicillin (AMOXIL) 250 mg Oral Capsule; Take 1 Cap by mouth 3 times daily for 7 days. Advised he see his dentist No Follow-up on file. Educated patient regarding the care plan and instructions listed on the After Visit Summary [AVS] for today's visit. They verbalized full understanding of the care plan and instructions given on the AVS for today's visit. A new medicine was prescribed during this [...] inquired of any questions and answered accordingly. Renu Doll MD documented in this encounter Plan of Treatment Upcoming Encounters Date Type Department Care Team (Late st Contact Info) Description 06/28/2024 9:40 AM EST Clinical Support [facility] [place] [address] [place] [address] 11/19/2024 1:40 PM EDT Office Visit [facility] [address] [address] Lyndsay Brewer DO [address] [facility] [address] [place] [address] documented as of this encounter Visit Diagnoses Diagnosis Pain, dental- Primary Unspecified disorder of the teeth and supporting structures documented in this encounter Care Teams Traffic Superintendent Relationship Specialty Start Date End Date Renu Doll MD PCP - General Family Medicine 10/12/15 01/08/17 documented as of this encounter
--- OUTSIDE RECORDS SUMMARY | 2024-05-29 15:53 | XMS_ITS | Encounter Summary ---
Author Organization [place] [address] Care Team Providers Care Brush Filler Hand Name Role Phone Renu Doll MD Primary Care Provider Collin rudd Encounter Details Date Type Department Care Team (Late st Contact Info) Description 09/19/2016 Orders Only [facility] [address] [email or web address] [address] Yana Choi RMA MRSA (methicillin resistant staph aureus) culture positive (Primary Dx) Social History Tobacco Use Types [...] sulfamethoxazole-tr imethoprim (BACTRIM DS) 800-160 mg Oral TabletIndications:M RSA (methicillin resistant staph aureus) culture positive Take 1 Tab by mouth every 12 hours for 10 days. 20 Tab 09/19/2016 09/29/2016 documented in this encounter Plan of Treatment Upcoming Encounters Date Type Department Care Team (Late st Contact Info) Description 06/28/2024 9:40 AM EST Clinical Support [facility] [address] [email or web address] [address] 11/19/2024 1:40 PM EDT Office Visit [facility] Neurology [facility] [address] [place] [id number] Lyndsay Brewer, DO [address] [place] [address] documented as of this encounter Goals Goal Patient Goal Type Associated Problems Recent Progress Patient-Stated? Author Blood Pressure < 140/90 Blood Pressure 134/84(2023 1:16 PM EST) No Yana Choi RMA Eat better, exercise, reach an ideal body weight General No Yana Choi RMA Stay Tobacco Free Lifestyle No Yana Choi RMA documented as of this encounter Visit Diagnoses Diagnosis MRSA (methicillin resistant staph aureus) culture positive- Primary Carrier or suspected carrier of Methicillin resistant Staphylococcus aureus documented in this encounter Additional Health Concerns Infection Onset Date Last Indicated Resolved Time MRSA 09/07/2016 09/07/2016 04/03/2017 9:55 AM EDT documented as of this encounter Care Teams Brush Filler Hand Relationship Specialty Start Date End Date Renu Doll MD PCP - General Family Medicine 10/12/15 01/08/17 documented as of this encounter
--- OUTSIDE RECORDS SUMMARY | 2024-05-29 15:53 | XMS_ITS | Encounter Summary ---
Author Organization [place] [address] Care Team Providers Care Portrait Artist Name Role Phone Renu Doll MD Primary Care Provider Collin rudd Reason for Visit * Reason Onset Date Comments Other 02/16/2016 Encounter Details Date Type Department Care Team (Late st Contact Info) Description 02/16/2016 Telephone [facility] [address] [place] [address] Renu Doll MD Other Social [...] Telephone Encounter - Mckenzie Muro RMA - 03/03/2016 5:09 PM EDT He is scheduled with you for that next . * Telephone Encounter - Renu Doll MD - 03/03/2016 3:50 PM EDT Make an apt. Here for rectal exam. * Telephone Encounter - Mckenzie Muro RMA - 03/02/2016 11:13 AM EDT His records have been mailed out yesterday. He wants to know if he can just come in here and be checked for BPH or how you will want to do thisbecause he is wanting to get his Cialis as soon as possible. * Telephone Encounter - Mckenzie Muro RMA - 02/23/2016 12:20 PM EDT Was faxed, going to call them tomorrow to try to get bPH stuff faxed over right away. * Telephone Encounter - Lizbeth Pelaez - 02/22/2016 10:29 AM EDT Fax # for Dr Whalen, * Telephone Encounter - Mckenzie Muro RMA - 02/22/2016 9:45 AM EDT LM for pt to get fax number so I can fax release to old provider for BPH information. * Telephone Encounter - Mckenzie Muro RMA - 02/16/2016 6:16 PM EDT We have no information about BPH for this pt, we need to get his records from Dr. Whalen in [place]. His release was never faxed. Once I get that information I need to call ELISEO hendrix at [phone] or ([phone] i cant read my handwriting) his Id number is [id number] I told pt i would call him or Monday with an update. * Telephone Encounter - Yvrose Solis - 02/16/2016 1:26 PM EDT Return call requested RE: [facility] [place] for tadalafil (CIALIS) 5 mg Oral Tablet documented in this encounter Plan of Treatment Upcoming Encounters Date Type Department Care Team (Late st Contact Info) Description 06/28/2024 9:40 AM EST Clinical Support [facility] [place] [address] [place] [address] 11/19/2024 1:40 PM EDT Office Visit [facility] Neurology [facility] [address] [place] [address] Lyndsay Brewer DO [address] [place] [address] documented as of this encounter Visit Diagnoses Not on filedocumented in this encounter Care Teams Portrait Artist Relationship Specialty Start Date End Date Renu Doll MD PCP - General Family Medicine 10/12/15 01/08/17 documented as of this encounter
--- OUTSIDE RECORDS SUMMARY | 2024-05-29 15:53 | XMS_ITS | Encounter Summary ---
Author Organization [place] [address] Care Team Providers Care Cartography/Mapping Technician Name Role Phone Renu Doll MD Primary Care Provider Collin rudd Reason for Visit * Reason Comments Medication Refill Encounter Details Date Type Department Care Team (Late st Contact Info) Description 07/18/2016 Refill [facility] [address] [place] [address] Renu Doll MD Medication Refill Social [...] MOUTH NEEDED FOR ERECTILE DYSFUNCTION 90 Tab 07/18/2016 7 documented in this encounter Plan of Treatment Upcoming Encounters Date Type Department Care Team (Late st Contact Info) Description 06/28/2024 9:40 AM EST Clinical Support [facility] [address] [place] [address] 11/19/2024 1:40 PM EDT Office Visit [facility] Neurology [facility] [address] [place] [address] Lyndsay Brewer DO [address] [place] [address] documented as of this encounter Goals Goal Patient Goal Type Associated Problems Recent Progress Patient-Stated? Author Blood Pressure < 140/90 Blood Pressure 134/84(2023 1:16 PM EST) No Yana Choi RMJane documented as of [...] mouth as needed for Erectile Dysfunction. Reorder 03/30/2016 07/18/2016 documented as of this encounter Care Teams Cartography/Mapping Technician Relationship Specialty Start Date End Date Renu Doll MD PCP - General Family Medicine 10/12/15 01/08/17 documented as of this encounter
--- OUTSIDE RECORDS SUMMARY | 2024-05-29 15:53 | XMS_ITS | Encounter Summary ---
Author Organization [place] [address] Care Team Providers Care System Administration Manager Name Role Phone Renu Doll MD Primary Care Provider Collin rudd Reason for Visit * Reason Comments Benign Prostatic Hypertrophy needs exam for BPH, for juan a DE LEON I Encounter Details Date Type Department Care Team (Late st Contact Info) Description 03/10/2016 11:15 AM EDT Office Visit [facility] [address] [place] [address] Renu Doll MD BPH with urinary obstruction (Primary Dx); Benign non-nodular prostatic hyperplasia with lower urinary tract symptoms; Need for pneumococcal vaccination; Need for influenza vaccination Social History Tobacco Use Types Packs/Day [...] Reading Time Taken Comments Blood Pressure 118/82 03/10/2016 10:49 AM EDT Pulse - - Temperature 36.8 ??C (98.2 ??F) 03/10/2016 10:49 AM E DT Respiratory Rate - - Oxygen Saturation - - Inhaled Oxygen Concentration - - Weight 93.3 kg (205 lb 9.6 oz) 03/10/2016 10:49 AM EDT Height 170.2 cm (5' 7 ) 03/10/2016 10:49 AM EDT Body Mass Index 32.2 03/10/2016 10:49 AM EDT documented in this encounter Progress Notes * Renu Doll MD - 03/10/2016 11:15 AM EDT Zuhair Whitlock is a 50 y.o. male Subjective Chief Complaint Patient presents with ??? Benign Prostatic Hypertrophy needs exam for BPH, for cialis PA I Patient is here because he needs a prostate exam, he was told he has BPH and needs the diagnosis soI can complete a PA. He wanted to talk about the OTC joint medication. Wakes up several time to urinate at night. Was told at age 22 he is a larger prostate. Some symptoms with ED Patient Active Problem List Diagnosis ??? Hip pain, left ??? HTN (hypertension), malignant ??? Eczema ??? OA (osteoarthritis) ??? Asthma ??? EPHRAIM (generalized anxiety disorder) ??? Bipolar disorder in remission ([facility]) Current Outpatient Prescriptions on File Prior to Visit Medication Sig Dispense Refill ??? albuterol (PROVENTIL) 5 mg/mL Inhl Solution for Nebulization Take 5 mg/hr by nebulization continuous. 20 mL 2 ??? albuterol (VENTOLIN HFA) 90 mcg/actuation Inhl HFA Aerosol Inhaler USE 1 OR 2 PUFFS EVERY 4 HOURS NEEDED FOR WHEEZING. 1 Inhaler 5 ??? cetirizine (ZYRTEC) 10 mg Oral Tablet Take by mouth as needed. ??? fluticasone-salmeterol (ADVAIR) 500-50 mcg/dose Inhl Disk with Device Inhale 1 Puff into the lungs 2 times daily. 1 Inhaler 2 ??? losartan-hydrochlorothiazide (HYZAAR) 50-12.5 mg Oral Tablet Take 1 Tab by mouth daily. 30 Tab 2 ??? Nebulizer Accessories (ALL FLOW 4000 KIT) Misc Formulary equivalent 1 Each 0 ??? Nebulizers (SANG BABY NEBULIZER) Misc Formulary equivalent 1 Each 0 ??? tadalafil (CIALIS) 5 mg Oral Tablet Take 1 Tab by mouth as needed for Erectile Dysfunction. 30 Tab 0 No current facility-administered medications on file prior to visit. Social Social History Social History ??? Marital status: Spouse name: N/A ??? Number of children: N/A ??? Years of education: N/A Social History Main Topics ??? Smoking status: Never Smoker ??? Smokeless tobacco: Current User Types: Snuff ??? Alcohol use No ??? Drug use: None ??? Sexual activity: Not Asked Other Topics Concern ??? None Social History Narrative Family History Problem Relation Age of Onset ??? Diabetes Mother ??? Heart Disease Mother ??? High Blood Pressure Mother ??? High Cholesterol Mother ??? Cancer Father Immunization History Administered Date(s) Administered ??? Influenza Patient Reported 04/21/2010 ??? Influenza Vaccine Quadrivalent 03/10/2016 ??? PPD Test 12/20/2010 ??? Pneumococcal Polysaccharide 23 Valent 04/21/2010, 03/10/2016 There are no preventive care reminders to display for this patient. Patient Care Team: Renu Doll MD as PCP - General (Family Medicine) Review of Systems Constitutional: Negative for chills and fever. HENT: Negative for congestion, ear pain, sinus pressure and trouble swallowing. Eyes: Negative [...] not nervous/anxious. Objective Visit Vitals ??? BP 118/82 (BP Location: Right arm, Patient Position: Sitting) ??? Temp 98.2 ??F (36.8 ??C) (Oral) ??? Ht 5' 7 (1.702 m) ??? Wt 205 lb 9.6 oz (93.3 kg) ??? BMI 32.2 kg/m2 Physical Exam Cardiovascular: Normal rate, regular rhythm and normal heart sounds. Pulmonary/Chest: Effort normal and breath sounds normal. Genitourinary: Prostate is enlarged. Prostate is not tender. Nursing note and vitals reviewed. Lab Results Component Value Date WBC 17.4 (H) 12/22/2010 HGB 12.8 (L) 12/22/2010 HCT 38.0 (L) 12/22/2010 PLT 428 (H) 12/22/2010 CHOLESTEROL 154 10/14/2015 TRIG 85 10/14/2015 HDL 32 (L) 10/14/2015 LDLCALC 105 (H) 10/14/2015 ALT 18 10/14/2015 AST 20 10/14/2015 NA 143 10/14/2015 K 4.8 10/14/2015 CL 106 10/14/2015 CREATININE 1.08 10/14/2015 BUN 15 10/14/2015 CO2 25 10/14/2015 TSH 2.140 10/14/2015 GLU 93 10/14/2015 Assessment and Plan Zuhair was seen today for benign prostatic hypertrophy. Diagnoses and all orders for this visit: BPH with urinary obstruction Benign non-nodular prostatic hyperplasia with lower urinary tract symptoms Need for pneumococcal vaccination Orders: - Pneumococcal polysaccharide vaccine 23-valent greater than or equal to 2yo subcutaneous/IM Need for influenza vaccination Orders: - Influenza Virus Vaccine Quadrivalent 3YR + [id number] does well with guicholis. Suggest he continue this. No Follow-up on file. Educated patient regarding the care plan and instructions listed on the After Visit Summary [AVS] for today's visit. They verbalized full understanding of the care plan and instructions given on the AVS for today's visit. A new medicine was not prescribed on this visit. Renu Doll MD documented in this encounter Miscellaneous Notes * Patient Instructions - Renu Doll MD - 03/10/2016 11:15 AM EDT Glucosamine, chondroitin. documented in this encounter Plan of Treatment Upcoming Encounters Date Type Department Care Team (Late st Contact Info) Description 06/28/2024 9:40 AM EST Clinical Support [facility] [place] [facility] [address] [place] [id number] 11/19/2024 1:40 PM EDT Office Visit [facility] Neurology [facility] [address] [place] [address] Osman Lyndsay DO Polina [address] [place] [address] documented as of this encounter Visit Diagnoses Diagnosis BPH with urinary obstruction- Primary Hypertrophy of prostate with urinary obstruction and other lower urinary tract symptoms (LUTS) Benign non-nodular prostatic hyperplasia with lower urinary tract symptoms Need for pneumococcal vaccination Need for prophylactic vaccination against streptococcus pneumoniae (pneumococcus) Need for influenza vaccination Need for prophylactic vaccination and inoculation against influenza documented in this encounter Discontinued Medications Medication Sig Discontinue Reason Start Date End Da te carbamide peroxide (DEBROX) 6.5 % Otic DropsIndications:Ceru men impaction, left Place 5 Drops in ear(s) 2 times daily. Administer drops in both ears. DELETE-Therapy completed 10/13/2015 03/10/2016 clotrimazole-betameth asone (LOTRISONE) Top CreamIndications:Harshad rgic eczema Apply topically 2 times daily. DELETE-Therapy completed 02/02/2016 03/10/2016 documented as of this encounter Orders Immunization/Injection Count Last Ordered Date First Ordered Date FLU VACCINE QUADRIVALENT (3YR+) 1 6 PNEUMOCOCCAL POLYSACCHARIDE VACCINE 23-VALENT =>2YO SQ/IM 1 03/10/2016 documented in this encounter Care Teams System Administration Manager Relationship Specialty Start Date End Date Renu Doll MD PCP - General Family Medicine 10/12/15 01/08/17 documented as of this encounter
--- OUTSIDE RECORDS SUMMARY | 2024-05-29 15:53 | XMS_ITS | Encounter Summary ---
Author Organization [place] [address] Care Team Providers Care Material Chaser Name Role Phone Renu Doll MD Primary Care Provider Collin rudd Reason for Visit * Reason Onset Date Comments Medication Refill 11/18/2015 Encounter Details Date Type Department Care Team (Late st Contact Info) Description 11/18/2015 Telephone [facility] [address] [place] [address] Renu Doll MD Medication Refill [...] Telephone Encounter - Mckenzie Muro RMA - 11/19/2015 7:10 PM EDT faxed * Telephone Encounter - Lizbeth Pelaez - 11/18/2015 10:35 AM EDT [facility], fill on Formula 5 Compounded pain creme, 240 gm. Fax to [phone]. Called patient and he does want this. documented in this encounter Plan of Treatment Upcoming Encounters Date Type Department Care Team (Late st Contact Info) Description 06/28/2024 9:40 AM EST Clinical Support [facility] [address] [place] [address] 11/19/2024 1:40 PM EDT Office Visit [facility] Neurology [facility] [address] [place] [address] Lyndsay Brewer, [address] [place] [address] documented as of this encounter Visit Diagnoses Not on filedocumented in this encounter Care Teams Material Chaser Relationship Specialty Start Date End Date Renu Doll MD PCP - General Family Medicine 10/12/15 01/08/17 documented as of this encounter
--- OUTSIDE RECORDS SUMMARY | 2024-05-29 15:53 | XMS_ITS | Encounter Summary ---
Author Organization [facility] [place] [address] Care Team Providers Care Director Of Development And Marketing Name Role Phone Renu Doll MD Primary Care Provider Collin rudd Reason for Referral * Consultation (Routine) - Closed Specialty Diagnoses / Procedures Referred By Gus kunz Referred To Contact Podiatry Diagnoses MRSA (methicillin resistant staph aureus) culture positive Blister of foot with infection, left, subsequent encounter Michelle Garrido APRN Shamsi, Mohiuddin Bilal, DPM Referral ID Status Reason Start Date Expiration Date Visits Re quested Visits Authorized [id number] Closed 10/12/2016 10/12/2017 99 99 Reason for Visit * Reason Comments Abscess Encounter Details Date Type Department Care Team (Late st Contact Info) Description 09/30/2016 9:00 AM EDT [place] [facility] [place] [address] [place] [address] Michelle Garrido APRN MRSA (methicillin resistant staph aureus) culture positive (Primary Dx); Blister of foot with infection, left, subsequent encounter; Dermatitis of left foot Social History Tobacco Use Types Packs/Day [...] Sign Reading Time Taken Comments Blood Pressure 134/88 09/30/2016 8:52 AM EDT Pulse 79 09/30/2016 8:52 AM EDT Temperature 36.5 ??C (97.7 ??F) 09/30/2016 8:52 AM ED T Respiratory Rate - - Oxygen Saturation 96% 09/30/2016 8:52 AM EDT Inhaled Oxygen Concentration - - Weight 91.2 kg (201 lb) 09/30/2016 8:52 AM EDT Height 170.2 cm (5' 7 ) 09/30/2016 8:52 AM EDT Body Mass Index 31.48 09/30/2016 8:52 AM EDT documented in this encounter Ordered Prescriptions Prescription Sig Dispense Quantity Refills Last Filled Start Date End Date triamcinolone (KENALOG) 0.1 % Top CreamIndications:D ermatitis of left foot Apply topically 2 times daily for 10 days. 80 g 2 09/30/2016 7 documented in this encounter Progress Notes * Michelle Garrido, YOLI - 09/30/2016 9:00 AM EDT Images from the original note were not included. Subjective Zuhair Whitlock is a 50 y.o. male Subjective Chief Complaint Patient presents with ??? Abscess Rash on left heel, that itches, has tried hydrocortisone. 5 day recheck on abscess on 4th toe on left foot. No sign of infection present. Pt reports that peeling skin is still present in the 4th digit of left foot. He continues to c/o itching and burning inthat location as well as a rash on medial side of left ankle. abx have been completed. Patient has also used hydrocortisone and lamisil without improvement. Review of Systems Skin: Positive for rash. Burning/itching of 4th digit on left toe. Pruritis of medical left ankle Objective Objective Visit Vitals ??? BP 134/88 ??? Pulse 79 ??? Temp 97.7 ??F (36.5 ??C) (Oral) ??? Ht 5' 7 (1.702 m) ??? Wt 201 lb (91.2 kg) ??? SpO2 96% ??? BMI 31.48 kg/m2 Physical Exam Constitutional: He appears well-developed and well-nourished. Cardiovascular: Normal rate. Pulmonary/Chest: Effort normal. Musculoskeletal: Feet: Peeling rash of underside and between 3rd-4th digits on left foot without erythema/edema/warmth/drainage. Pruritic macular rash of left medial ankle Skin: Rash noted. Assessment and Plan Zuhair was seen today for abscess. Diagnoses and all orders for this visit: MRSA (methicillin resistant staph aureus) culture positive - [place], [facility] [place] [place] Blister of foot with infection, left, subsequent encounter - Podiatry, [facility] [place] [place] Dermatitis of left foot - triamcinolone (KENALOG) 0.1 % Top Cream; Apply topically 2 times daily for 10 days. Return if symptoms worsen or fail to [...] AM EST Clinical Support [facility] [place] [address] [place] [address] 11/19/2024 1:40 PM EDT Office Visit [facility] [address] [place] [address] Lyndsay Brewer DO [address] [place] [address] Scheduled Referrals Name Type Priority Associated Diagnoses Orde r Schedule AMB REFERRAL TO PODIATRY Outpatient Referral Routine MRSA (methicillin resistant staph aureus) culture positive Blister of foot with infection, left, subsequent encounter Ordered: 09/30/2016 documented as of this encounter Goals Goal [...] suspected carrier of Methicillin resistant Staphylococcus aureus Blister of foot with infection, left, subsequent encounter Dermatitis of left foot documented in this encounter Additional Health Concerns Infection Onset Date Last Indicated Resolved Time MRSA 09/07/2016 09/07/2016 04/03/2017 9:55 AM EDT documented as of this encounter Care Teams Director Of Development And Marketing Relationship Specialty Start Date End Date Renu Doll MD PCP - General Family Medicine 10/12/15 01/08/17 documented as of this encounter
--- OUTSIDE RECORDS SUMMARY | 2024-05-29 15:53 | XMS_ITS | Encounter Summary ---
Author Organization [place] [address] Care Team Providers Care Supervisor Body Assembly Name Role Phone Renu Doll MD Primary Care Provider Collin rudd Reason for Visit * Reason Onset Date Comments Blister 09/07/2016 Encounter Details Date Type Department Care Team (Late Contact Info) Description 09/07/2016 Telephone [facility] [address] [employer] [address] [place] [phone] Michelle Cook MA Blister Social History Tobacco Use Types Packs/Day Years [...] Telephone Encounter - Michelle Phillips MA - 09/07/2016 9:42 AM EDT Pt dropped off a culture of blisters on his feet. I put in order for culture. documented in this encounter Plan of Treatment Upcoming Encounters Date Type Department Care Team (Late st Contact Info) Description 06/28/2024 9:40 AM EST Clinical Support [facility] [address] [employer] [place] [phone] 11/19/2024 1:40 PM EDT Office Visit [facility] [address] [place] [address] Lyndsay Brewer DO [address] [place] [address] documented as of this encounter Goals Goal Patient Goal Type Associated Problems Recent Progress Patient-Stated? Author Blood Pressure < 140/90 Blood Pressure 134/84(2023 1:16 PM EST) Yana Pina, RMJane documented as of this encounter Visit Diagnoses Not on filedocumented in this encounter Additional Health Concerns Infection Onset Date Last Indicated Resolved Time MRSA 09/07/2016 09/07/2016 04/03/2017 9:55 AM EDT documented as of this encounter Care Teams Supervisor Body Assembly Relationship Specialty Start Date End Date Renu Doll MD PCP - General Family Medicine 10/12/15 01/08/17 documented as of this encounter
--- OUTSIDE RECORDS SUMMARY | 2024-05-29 15:53 | XMS_ITS | Encounter Summary ---
Author Organization [place] [address] Care Team Providers Care Ward Nurse Name Role Phone Renu Doll MD Primary Care Provider Collin rudd Reason for Visit * Reason Onset Date Comments Medication Problem 01/21/2016 Encounter Details Date Type Department Care Team (Late st Contact Info) Description 01/21/2016 Telephone [facility] [employer] [address] [place] [address] Renu Doll MD Medication Problem [...] * Telephone Encounter - Lizbeth Pelaez - 01/22/2016 8:46 AM EDT Pharmacy confirmed * Telephone Encounter - Renu Doll MD - 01/21/2016 4:53 PM EDT It should be : Dicyclomine 10 mg Oral Capsule; Take 2 Caps by mouth 4 times daily for 30 days. * Telephone Encounter - Lizbeth Pelaez - 01/21/2016 12:23 PM EDT The dicyclomine (BENTYL) 10 mg Oral Capsule is different than last time. Will you call to verify directions? It was 2 tabs by mouth 4 times a day. documented in this encounter Plan of Treatment Upcoming Encounters Date Type Department Care Team (Late st Contact Info) Description 06/28/2024 9:40 AM EST Clinical Support [facility] [address] [employer] [place] [phone] 11/19/2024 1:40 PM EDT Office Visit [facility] [address] [place] [address] Lyndsay Brewer DO [address] [place] [address] documented as of this encounter Visit Diagnoses Not on filedocumented in this encounter Care Teams Ward Nurse Relationship Specialty Start Date End Date Renu Doll MD PCP - General Family Medicine 10/12/15 01/08/17 documented as of this encounter
--- OUTSIDE RECORDS SUMMARY | 2024-05-29 15:53 | XMS_ITS | Encounter Summary ---
Author Organization [place] [address] Care Team Providers Care Slots Manager Name Role Phone Renu Doll MD Primary Care Provider Collin rudd Reason for Visit * Reason Onset Date Comments Other 04/14/2016 Encounter Details Date Type Department Care Team (Late st Contact Info) Description 04/14/2016 Telephone [employer] [address] [place] [address] Renu Doll MD Other Social [...] * Telephone Encounter - Lizbeth Pelaez - 04/14/2016 2:57 PM EDT Patient informed * Telephone Encounter - Renu Doll MD - 04/14/2016 2:49 PM EDT Suggest over the counter miconazole topical cream. Use twice a day to areas that are itching. If not better in a few days, suggest office visit. * Telephone Encounter - Lizbeth Pelaez - 04/14/2016 1:48 PM EDT He is having itching in his private area. His partner had a yeast infection and now he thinks he has it. Will you call something in for this? [id number] [address] [address] [address] [facility] - [phone] documented in this encounter Plan of Treatment Upcoming Encounters Date Type Department Care Team (Late st Contact Info) Description 06/28/2024 9:40 AM EST Clinical Support [facility] [place] [address] [employer] [address] [place] [phone] 11/19/2024 1:40 PM EDT Office Visit [facility] [address] [place] [address] Lnydsay Brewer [address] [place] [address] documented as of this encounter Visit Diagnoses Not on filedocumented in this encounter Care Teams Slots Manager Relationship Specialty Start Date End Date Renu Doll MD PCP - General Family Medicine 10/12/15 01/08/17 documented as of this encounter
--- OUTSIDE RECORDS SUMMARY | 2024-05-29 15:53 | XMS_ITS | Encounter Summary ---
Author Organization [place] [address] Care Team Providers Care Transformation Coach Name Role Phone Renu Doll MD Primary Care Provider Collin rudd Reason for Visit * Reason Comments Rash x 2 weeks Encounter Details Date Type Department Care Team (Latest Contact Info) Description 02/02/2016 2:00 PM EDT Office Visit [facility] [place] [address] [place] [place] [address] Renu Doll MD Allergic eczema (Primary Dx); Osteoarthritis of multiple joints, unspecified osteoarthritis type; BPH without urinary obstruction Social History Tobacco [...] Reading Time Taken Comments Blood Pressure 118/82 02/02/2016 2:00 PM EDT Pulse 82 02/02/2016 2:00 PM EDT Temperature 36.8 ??C (98.3 ??F) 02/02/2016 2:00 PM ED T Respiratory Rate - - Oxygen Saturation 96% 02/02/2016 2:00 PM EDT Inhaled Oxygen Concentration - - Weight 93 kg (205 lb) 02/02/2016 2:00 PM EDT Height 170.2 cm (5' 7 ) 02/02/2016 2:00 PM EDT Body Mass Index 32.11 02/02/2016 2:00 PM EDT documented in this encounter Ordered Prescriptions Prescription Sig Dispense Quantity Refills Last Filled Start Date End Date albuterol (PROVENTIL) 5 mg/mL Inhl Solution for Nebulization Take 5 mg/hr by nebulization continuous. 20 mL 2 02/02/2016 6 tadalafil (CIALIS) 5 mg Oral TabletIndications :BPH without urinary obstruction Take 1 Tab by mouth as needed for Erectile Dysfunction. 30 Tab 0 02/02/2016 6 clotrimazole-beta methasone (LOTRISONE) Top CreamIndications: Allergic eczema Apply topically 2 times daily. 1 Tube 1 02/02/2016 6 documented in this encounter Progress Notes * Renu Doll MD - 02/02/2016 2:05 PM EDT Zuhair Whitlock is a 50 y.o. male Subjective Chief Complaint Patient presents with ??? Rash x 2 weeks Patient is coming in because he has a rash that comes and goes. He has had it right now about two weeks, this time around its been on his forehead, legs and feet. It itches and flakes very bad. Patient Active Problem List Diagnosis ??? Hip pain, left ??? HTN (hypertension), malignant ??? Eczema ??? OA (osteoarthritis) ??? Asthma ??? EPHRAIM (generalized anxiety disorder) ??? Bipolar disorder in remission (HCC) Current Outpatient Prescriptions on File Prior to Visit Medication Sig Dispense Refill ??? albuterol (VENTOLIN HFA) 90 mcg/actuation Inhl HFA Aerosol Inhaler USE 1 OR 2 PUFFS EVERY 4 HOURS NEEDED FOR WHEEZING. 1 Inhaler 5 ??? cetirizine (ZYRTEC) 10 mg Oral Tablet Take by mouth as needed. ??? dicyclomine (BENTYL) 10 mg Oral Capsule Take 1 Cap by mouth 4 times daily for 14 days. 56 Cap 0 ??? fluticasone-salmeterol (ADVAIR) 500-50 mcg/dose Inhl Disk with Device Inhale 1 Puff into the lungs 2 times daily. 1 Inhaler 2 ??? losartan-hydrochlorothiazide (HYZAAR) 50-12.5 mg Oral Tablet Take 1 Tab by mouth daily. 30 Tab 2 ??? Nebulizer Accessories (ALL FLOW 4000 KIT) Misc Formulary equivalent 1 Each 0 ??? Nebulizers (SANG BABY NEBULIZER) Misc Formulary equivalent 1 Each 0 ??? carbamide peroxide (DEBROX) 6.5 % Otic Drops Place 5 Drops in ear(s) 2 times daily. Administer drops in both ears. 30 mL 0 No current facility-administered medications on file prior to visit. Social History Social History ??? Marital Status: Spouse Name: N/A ??? Number of Children: N/A ??? Years of Education: N/A Social History Main Topics ??? Smoking status: Never Smoker ??? Smokeless tobacco: Current User Types: Snuff ??? Alcohol Use: No ??? Drug Use: Not on file ??? Sexual Activity: Not on file Other Topics Concern ??? Not on file Social History Narrative Family History Problem Relation Age of Onset ??? Diabetes Mother ??? Heart Disease Mother ??? High Blood Pressure Mother ??? High Cholesterol Mother ??? Cancer Father Immunization History Administered Date(s) Administered ??? Influenza Patient Reported 04/21/2010 ??? PPD Test 12/20/2010 ??? Pneumococcal Polysaccharide 23 Valent 04/21/2010 There are no preventive care reminders to display for this patient. Patient Care Team: Renu Doll MD as PCP - General (Family Medicine) Review of Systems Constitutional: Negative for fever and chills. HENT: Negative for congestion, ear pain, sinus pressure and trouble swallowing. Eyes: Negative for visual disturbance. Respiratory: Negative for cough. Cardiovascular: Negative for chest pain and leg swelling. Gastrointestinal: Negative for nausea, vomiting, abdominal pain, diarrhea and constipation. Endocrine: Negative for polyuria. Genitourinary: Negative for dysuria and urgency. Musculoskeletal: Negative for arthralgias. Skin: Positive for rash. Negative for color change. Neurological: Negative for headaches. Psychiatric/Behavioral: Negative for dysphoric mood. The patient is not nervous/anxious. Objective BP 118/82 mmHg Pulse 82 Temp(Src) 98.3 ??F (36.8 ??C) (Oral) Ht 5' 7 (1.702 m) Wt 205 lb (92.987 kg) BMI 32.10 kg/m2 SpO2 96% Physical Exam Cardiovascular: Normal rate, regular rhythm and normal heart sounds. Pulmonary/Chest: Effort normal and breath sounds normal. Musculoskeletal: Normal range of motion. Nursing note and vitals reviewed. Lab Results Component Value Date WBC 17.4* 12/22/2010 HGB 12.8* 12/22/2010 HCT 38.0* 12/22/2010 PLT 428* 12/22/2010 CHOLESTEROL 154 10/14/2015 TRIG 85 10/14/2015 HDL 32* 10/14/2015 LDLCALC 105* 10/14/2015 ALT 18 10/14/2015 AST 20 10/14/2015 NA 143 10/14/2015 K 4.8 10/14/2015 CL 106 10/14/2015 CREATININE 1.08 10/14/2015 BUN 15 10/14/2015 CO2 25 10/14/2015 TSH 2.140 10/14/2015 GLU 93 10/14/2015 Assessment and Plan Zuhair was seen today for rash. Diagnoses and all orders for this visit: Allergic eczema - clotrimazole-betamethasone (LOTRISONE) Top Cream; Apply topically 2 times daily. Osteoarthritis of multiple joints, unspecified osteoarthritis type BPH without urinary obstruction - tadalafil (CIALIS) 5 mg Oral Tablet; Take 1 Tab by mouth as needed for Erectile Dysfunction. Other orders - albuterol (PROVENTIL) 5 mg/mL Inhl Solution for Nebulization; Take 5 mg/hr by nebulization continuous. No Follow-up on file. Educated patient regarding [...] EST Clinical Support [facility] [address] [employer] [place] [phone] 11/19/2024 1:40 PM EDT Office Visit [facility] [address] [place] [address] Lyndsay Brewer, [address] [place] [address] documented as of this encounter Visit Diagnoses Diagnosis Allergic eczema- Primary Contact dermatitis and other eczema, due to unspecified cause Osteoarthritis of multiple joints, unspecified osteoarthritis type BPH without urinary obstruction Hypertrophy of prostate without urinary obstruction and other lower urinary tract symptoms (LUTS) documented in this encounter Discontinued Medications Medication Sig Discontinue Reason Start Date End Da te ipratropium (ATROVENT HFA) 17 mcg/actuation Inhl HFA Aerosol Inhaler Inhale 2 Puffs into the lungs every 6 hours. DELETE-Therapy completed 11/17/2015 02/02/2016 Hydrocortisone Acetate 1 % OintIndications:[place] titis Apply 1 Applicator topically 2 times daily. Alternate therapy 01/09/2012 02/02/2016 tadalafil (CIALIS) 5 mg Oral Tablet Take 1 Tab by mouth as needed for Erectile Dysfunction. Reorder 01/21/2016 02/02/2016 documented as of this encounter Care Teams Transformation Coach Relationship Specialty Start Date End Date Renu Doll MD PCP - General Family Medicine 10/12/15 01/08/17 documented as of this encounter
--- OUTSIDE RECORDS SUMMARY | 2024-05-29 15:53 | XMS_ITS | Encounter Summary ---
Author [place] [address] Care Team Providers Care Welder Apprentice Arc Name Role Phone Renu Doll MD Primary Care Provider Collin rudd Reason for Visit * Reason Comments Visit Follow Up left foot * Consultation (Routine) - Closed Specialty Diagnoses / Procedures Referred By Contac t Referred To Contact Podiatry Diagnoses MRSA (methicillin resistant staph aureus) culture positive Blister of foot with infection, left, subsequent encounter Michelle Garrido, Jovanny Alcantara DPM Referral ID Status Reason Start Date Expiration Date Visits Re quested Visits Authorized [id number] Closed 10/12/2016 10/12/2017 99 99 Encounter Details Date Type Department Care Team (Late st Contact Info) Description 11/01/2016 4:30 PM EDT [facility] [address] [facility] [address] [place] [address] Jovanny Anderson DPM Intertrigo (Primary [...] - - Weight 91.2 kg (201 lb) 11/01/2016 4:27 PM EDT Height 170.2 cm (5' 7 ) 11/01/2016 4:27 PM EDT Body Mass Index 31.48 11/01/2016 4:27 PM EDT documented in this encounter Progress Notes * Jovanny Anderson DPM - 11/01/2016 4:30 PM EDT [facility] Podiatric Surgery Outpatient Progress Note Sonja Loera.PSherry Name: Zuhair Whitlock Primary Care Physician: Renu Doll MD Chief Complaint: Chief Complaint Patient presents with ??? Visit Follow Up left foot History of Presenting Illness: Zuhair Whitlock is a 50 y.o. male with who is here For follow up L foot itching Medications: Outpatient Prescriptions Marked as Taking for the 11/01/16 encounter (Office Visit) with Jovanny Anderson DPM [...] 2 times daily. 70 g 0 ??? miconazole (MICATIN) 2 % Top Powder Apply topically 2 times daily. 30 g 0 ??? Nebulizer Accessories (ALL FLOW 4000 KIT) Misc Formulary equivalent 1 Each 0 ??? Nebulizers (SANG BABY NEBULIZER) Misc Formulary equivalent 1 Each 0 ??? Terbinafine (LAMISIL AT) 1 % Top Gel Apply 1 Applicatorful topically 2 times daily. 1 Tube 2 Allergies Allergen Reactions ??? Abilify [Aripiprazole] Other [...] lb (91.2 kg) ??? BMI 31.48 kg/m2 LOWER EXTREMITY FOCUSED EXAM: Lower Extremity Exam: Derm Exam: Skin texture and turgor are within normal limits. LEFT FOOT 4th interspace itching resolved Assessment: Zuhair Whitlock was seen today for Chief Complaint Patient presents with ??? Visit Follow Up left foot . Zuhair was seen today for visit follow up. Diagnoses and all orders for this visit: Intertrigo Pain of toe of left foot Tinea Plan: Improved greatly. Use above and betadine F/U PRN B. Monica D.P.M. 11/01/2016 documented in this encounter Miscellaneous Notes * Patient Instructions - Patricia Meadows CMA - 11/01/2016 4:28 PM EDT Images from the original note were not included. Hand Washing Germs like bacteria, viruses, and parasites are found everywhere. They can be in the air and water,and they can be on surfaces like food, door handles, and your skin. Every day, your hands touch germs. Many of these germs can make you and your family sick. Washing your hands is one of the best ways to lower your risk of getting and sharing germs. WHEN SHOULD I WASH MY HANDS OR USE A HAND-WASHING ALCOHOL GEL? You should wash your hands whenever you think they are dirty. You should also wash your hands: ?? Before: Visiting a baby or anyone with a weakened or lowered defense (immune) system. Putting in and taking out any contact lenses. ?? After: Working or playing outside. Touching an animal or its toys or leash. Handling livestock, such as cows or sheep. Using the bathroom. Using household hydrometeorology teacher or poisonous chemicals. Touching or taking out the garbage. Touching anything dirty around your home. Handling dirty clothes or rags. Taking care of a [...] sick. Changing a diaper. Changing a bandage (dressing). Taking care of an injury or wound. Giving or taking medicine. If you are preparing food, hand-washing alcohol gels are not recommended as a replacement for hand washing. WHAT IS THE RIGHT WAY TO WASH MY HANDS? ?? Wet [...] ?? Rinse your hands with clean, running water. Do this until all the soap is gone. ?? Dry your hands using an air dryer or a clean paper or cloth towel, or let your hands air-dry. Donot use your clothing or a dirty towel to dry your hands. ?? If you are in a public restroom, use your towel: To turn off the water faucet. To open the bathroom door. This information is not intended to replace advice given to you by your health care provider. Make sure you discuss any questions you have with your health care provider. Document Released: 05/25/2009 Document Revised: 07/03/2015 Document Reviewed: 11/07/2014 [employer] Patient Education ??2016 [employer] documented in this encounter Plan of Treatment Upcoming Encounters Date Type Department Care Team (Late st Contact Info) Description 06/28/2024 9:40 AM EST Clinical Support [facility] [place] [address] [place] [phone] 11/19/2024 1:40 PM EDT Office Visit [facility] Neu[facility] [address] [place] [address] Lyndsay Brewer DO [address] [place] [address] documented as of this encounter Goals Goal [...] documented as of this encounter Care Teams Welder Apprentice Arc Relationship Specialty Start Date End Date Renu Doll MD PCP - General Family Medicine 10/12/15 01/08/17 documented as of this encounter
--- OUTSIDE RECORDS SUMMARY | 2024-05-29 15:53 | XMS_ITS | Encounter Summary ---
Author Organization [place] [address] Care Team Providers Care Table Worker Name Role Phone Renu Doll MD Primary Care Provider Collin rudd Reason for Visit * Reason Onset Date Comments Medication Refill 03/30/2016 Encounter Details Date Type Department Care Team (Late st Contact Info) Description 03/30/2016 Telephone [facility] [address] [place] [address] Renu Doll MD Medication Refill [...] Date dicyclomine (BENTYL) 10 mg Oral Capsule 2 caps 4 x a day 360 Cap 1 03/30/2016 6 tadalafil (CIALIS) 5 mg Oral TabletIndications :BPH without urinary obstruction Take 1 Tab by mouth as needed for Erectile Dysfunction. 90 Tab 03/30/2016 7 losartan-hydrochl orothiazide (HYZAAR) 50-12.5 mg Oral TabletIndications :Encounter for medication refill Take 1 Tab by mouth daily. 90 Tab 2 03/30/2016 7 fluticasone-salme terol (ADVAIR) 500-50 mcg/dose Inhl Disk with DeviceIndications :Encounter for medication refill Inhale 1 Puff into the lungs 2 times daily. 2 Inhaler 2 03/30/2016 7 albuterol (VENTOLIN HFA) 90 mcg/actuation Inhl HFA Aerosol InhalerIndication s:Encounter for medication refill USE 1 OR 2 PUFFS EVERY 4 HOURS NEEDED FOR WHEEZING. 2 Inhaler 5 03/30/2016 7 albuterol (PROVENTIL) 5 mg/mL Inhl Solution for NebulizationIndic ations:Moderate persistent asthma without complication Take 5 mg/hr by nebulization continuous. 40 mL 2 03/30/2016 0 documented in this encounter Miscellaneous Notes * Telephone Encounter - Tamika Cantor CCMA - 03/30/2016 5:41 PM EDT Scripts sent * Telephone Encounter - Lizbeth Pelaez - 03/30/2016 12:50 PM EDT Need 90 days for all the meds now Fill on albuterol (PROVENTIL) 5 mg/mL Inhl Solution for Nebulization albuterol (VENTOLIN HFA) 90 mcg/actuation Inhl HFA Aerosol Inhaler fluticasone-salmeterol (ADVAIR) 500-50 mcg/dose Inhl Disk with Device losartan-hydrochlorothiazide (HYZAAR) 50-12.5 mg Oral Tablet tadalafil (CIALIS) 5 mg Oral Tablet Bentyl 10 mg , 2 pills 4 times a day. [id number] [facility] [place] [address] [facility] [phone] documented in this encounter Plan of Treatment Upcoming Encounters Date Type Department Care Team (Late st Contact Info) Description 06/28/2024 9:40 AM EST Clinical Support [facility] [place] [address] [place] [phone] 11/19/2024 1:40 PM EDT Office Visit SEP Neurology [facility] [address] [place] [address] Lyndsay Brewer, DO [address] [place] [address] documented as of this encounter Visit Diagnoses Diagnosis Moderate persistent asthma without complication Unspecified asthma Encounter for medication refill Issue of repeat prescriptions BPH without urinary obstruction Hypertrophy of prostate without urinary obstruction and other lower urinary tract symptoms (LUTS) documented in this encounter Discontinued Medications Medication Sig Discontinue Reason Start Date End Da te albuterol (PROVENTIL) 5 mg/mL Inhl Solution for NebulizationIndication s:Moderate persistent asthma without complication Take 5 mg/hr by nebulization continuous. Reorder 02/15/2016 03/30/2016 albuterol (VENTOLIN HFA) 90 mcg/actuation Inhl HFA Aerosol InhalerIndications:Enc ounter for medication refill USE 1 OR 2 PUFFS EVERY 4 HOURS NEEDED FOR WHEEZING. Reorder 01/04/2016 03/30/2016 fluticasone-salmeterol (ADVAIR) 500-50 mcg/dose Inhl Disk with DeviceIndications:Enco unter for medication refill Inhale 1 Puff into the lungs 2 times daily. Reorder 10/05/2015 03/30/2016 losartan-hydrochloroth iazide (HYZAAR) 50-12.5 mg Oral TabletIndications:Enco unter for medication refill Take 1 Tab by mouth daily. Reorder 01/21/2016 03/30/2016 tadalafil (CIALIS) 5 mg Oral TabletIndications:BPH without urinary obstruction Take 1 Tab by mouth as needed for Erectile Dysfunction. Reorder 02/03/2016 03/30/2016 documented as of this encounter Care Teams Table Worker Relationship Specialty Start Date End Date Renu Doll MD PCP - General Family Medicine 10/12/15 01/08/17 documented as of this encounter
--- OUTSIDE RECORDS SUMMARY | 2024-05-29 15:53 | XMS_ITS | Encounter Summary ---
Author Organization [place] [address] Care Team Providers Care Freezing Machine Operator Name Role Phone Renu Doll MD Primary Care Provider Collin rudd Reason for Visit * Reason Onset Date Comments Other 03/14/2016 Encounter Details Date Type Department Care Team (Late st Contact Info) Description 03/14/2016 Telephone [facility] [address] [place] [address] Renu Doll MD Other Social [...] Telephone Encounter - Mckenzie Muro RMA - 03/16/2016 5:25 PM EDT Medication was approved until 03/16/2017 * Telephone Encounter - Mckenzie Muro RMA - 03/15/2016 6:22 PM EDT Faxed information they needed. Waiting on response. * Telephone Encounter - Yvrose Solis - 03/14/2016 4:00 PM EDT Pt is returning Lorna's call: The number requested is [phone] * Telephone Encounter - Mckenzie Muro RMA - 03/14/2016 12:07 PM EDT LM for pt, to check the statis of the PA I need the customer care phone number on the back of his prescription insurance card. * Telephone Encounter - Yvrose Solis - 03/14/2016 10:05 AM EDT Return call requested RE: Statis of PA for Nick? documented in this encounter Plan of Treatment Upcoming Encounters Date Type Department Care Team (Late st Contact Info) Description 06/28/2024 9:40 AM EST Clinical Support [facility] [address] [place] [phone] 11/19/2024 1:40 PM EDT Office Visit SEP Neurology [facility] [address] [place] [address] Lyndsay Brewer DO [address] [place], [place] [id number] documented as of this encounter Visit Diagnoses Not on filedocumented in this encounter Care Teams Freezing Machine Operator Relationship Specialty Start Date End Date Renu Doll MD PCP - General Family Medicine 10/12/15 01/08/17 documented as of this encounter
--- OUTSIDE RECORDS SUMMARY | 2024-05-29 15:53 | XMS_ITS | Encounter Summary ---
Author Organization [place] [address] Care Team Providers Care Crop Grain Or Livestock Farm Manager Name Role Phone Renu Doll MD Primary Care Provider Collin rudd Reason for Visit * Reason Comments Medication Refill Encounter Details Date Type Department Care Team (Late st Contact Info) Description 06/17/2016 Refill [facility] [address] [place] [address] Renu Doll MD [...] Date dicyclomine (BENTYL) 10 mg Oral Capsule TAKE 2 CAPSULES BY MOUTH 4 TIMES A DAY 360 Cap 1 06/17/2016 8 documented in this encounter Plan of Treatment Upcoming Encounters Date Type Department Care Team (Late st Contact Info) Description 06/28/2024 9:40 AM EST Clinical Support [facility] [address] [place] [phone] 11/19/2024 1:40 PM EDT Office Visit SEP Neurology [facility] [address] [place] [address] Lyndsay Brewer DO [address] [place] [address] documented as of this encounter Visit Diagnoses Not on filedocumented in this encounter Discontinued Medications Medication Sig Discontinue Reason Start Date End Da te dicyclomine (BENTYL) 10 mg Oral Capsule 2 caps 4 x a day Reorder 03/30/2016 06/17/2016 documented as of this encounter Care Teams Crop Grain Or Livestock Farm Manager Relationship Specialty Start Date End Date Renu Doll MD PCP - General Family Medicine 10/12/15 01/08/17 documented as of this encounter
--- OUTSIDE RECORDS SUMMARY | 2024-05-29 15:53 | XMS_ITS | Encounter Summary ---
Author Organization [place] [address] Care Team Providers Care Licensed Practical Nurse Clinic Nurse Name Role Phone Renu Doll MD Primary Care Provider Collin rudd Reason for Visit * Reason Comments Other Encounter Details Date Type Department Care Team (Late st Contact Info) Description 08/03/2016 3:45 PM EST Office Visit [facility] [address] [place] [address] Renu Doll MD Foot abrasion, infected, left, subsequent encounter (Primary Dx) Social History Tobacco Use Types [...] Reading Time Taken Comments Blood Pressure 124/76 08/03/2016 3:58 PM EST Pulse 101 08/03/2016 3:58 PM EST Temperature 36.5 ??C (97.7 ??F) 08/03/2016 3:58 PM ES T Respiratory Rate - - Oxygen Saturation 96% 08/03/2016 3:58 PM EST Inhaled Oxygen Concentration - - Weight 94.3 kg (208 lb) 08/03/2016 3:58 PM EST Height 170.2 cm (5' 7 ) 08/03/2016 3:58 PM EST Body Mass Index 32.58 08/03/2016 3:58 PM EST documented in this encounter Progress Notes * Renu Doll MD - 08/03/2016 3:45 PM EST Subjective Zuhair Whitlock is a 50 y.o. male Subjective Chief Complaint Patient presents with ??? Other Patient in today with an infection on his left foot between his toes, after the antibiotics were over it started to boil up again. He had a friend pop it yesterday and drain a lot of fluid out of it. Review of Systems Respiratory: Negative for chest tightness and shortness of breath. Cardiovascular: Negative for chest pain. Skin: Positive for wound. Neurological: Negative for dizziness, light-headedness and headaches. Objective Objective Visit Vitals ??? BP 124/76 (BP Location: Right arm, Patient Position: Sitting) ??? Pulse 101 ??? Temp 97.7 ??F (36.5 ??C) (Oral) ??? Ht 5' 7 (1.702 m) ??? Wt 208 lb (94.3 kg) ??? SpO2 96% ??? BMI 32.58 kg/m2 Physical Exam Constitutional: He appears well-developed and well-nourished. Cardiovascular: Normal rate, regular rhythm and normal heart sounds. Pulmonary/Chest: Effort normal and breath sounds normal. No respiratory distress. He has no wheezes. Musculoskeletal: Normal range of motion. Skin: He is not diaphoretic. Well healing. No erythema. Nursing note and vitals reviewed. Assessment and Plan Zuhair was seen today for other. Diagnoses and all orders for this visit: Foot abrasion, infected, left, subsequent encounter doing well. No further treatment at this time. No Follow-up on file. Patient was educated regarding the diagnosis, medication/treatment, [...] EST Clinical Support [facility] [address] [place] [phone] 11/19/2024 1:40 PM EDT Office Visit SEP Neurology [facility] [address] [place] [address] Lyndsay Brewer DO [address] [place] [address] documented as of this encounter Goals Goal Patient Goal Type Associated Problems Recent Progress Patient-Stated? Author Blood Pressure < 140/90 Blood Pressure 134/84(2023 1:16 PM EST) No Yana Choi, RMA documented as of this encounter Visit Diagnoses Diagnosis Foot abrasion, infected, left, subsequent encounter- Primary documented in this encounter Care Teams Licensed Practical Nurse Clinic Nurse Relationship Specialty Start Date End Date Renu Doll MD PCP - General Family Medicine 10/12/15 01/08/17 documented as of this encounter
--- OUTSIDE RECORDS SUMMARY | 2024-05-29 15:53 | XMS_ITS | Encounter Summary ---
Author Organization [place] [address] Care Team Providers Care Oil Recovery Operator Name Role Phone Renu Doll MD Primary Care Provider Collin rudd Reason for Visit * Reason Comments Blister Encounter Details Date Type Department Care Team (Late st Contact Info) Description 09/26/2016 9:20 AM EDT Office Visit [facility] [address] [place] [address] Michelle Garrido, YOLI MRSA (methicillin resistant staph aureus) culture positive [...] Sign Reading Time Taken Comments Blood Pressure 162/70 09/26/2016 9:24 AM EDT Pulse 66 09/26/2016 9:24 AM EDT Temperature 36.9 ??C (98.5 ??F) 09/26/2016 9:24 AM ED T Respiratory Rate - - Oxygen Saturation 94% 09/26/2016 9:24 AM EDT Inhaled Oxygen Concentration - - Weight 92.1 kg (203 lb) 09/26/2016 9:24 AM EDT Height 170.2 cm (5' 7 ) 09/26/2016 9:24 AM EDT Body Mass Index 31.79 09/26/2016 9:24 AM EDT documented in this encounter Progress Notes * Michelle Garrido APRN - 09/26/2016 9:20 AM EDT Subjective Zuhair Whitlock is a 50 y.o. male Subjective Chief Complaint Patient presents with ??? Blister Pt states that he brought a culture tube to the office last time the blister on his left foot drained. The culture came back + for MRSA and bactrim was sent by Dr. Doll. He started the bactrim on Monday09/23/16 and states that there is now a new blister on the medial side of his 4th digit on left foot. 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 Review of Systems Skin: Positive for wound. Objective Objective Visit Vitals ??? BP 162/70 ??? Pulse 66 ??? Temp 98.5 ??F (36.9 ??C) (Oral) ??? Ht 5' 7 (1.702 m) ??? Wt 203 lb (92.1 kg) ??? SpO2 94% ??? BMI 31.79 kg/m2 Physical Exam Skin: Peeling skin and single blister on medial side of 4th digit on left foot. There is no redness/warmth/swelling/drainage. Assessment and Plan Zuhair was seen today for blister. Diagnoses and all orders for this visit: MRSA (methicillin resistant staph aureus) culture positive Continue bactrim as prescribed. RTO for worsening symptoms or no improvement at the end of abx therapy Return if symptoms worsen or fail to [...] Clinical Support [facility] [address] [place] [phone] 11/19/2024 1:40 PM EDT Office Visit SE[facility] Neurology [facility] [address] [place] [address] [place] Lyndsay Harrelln, DO [address] [place] [address] documented as of this encounter [...] as of this encounter Care Teams Oil Recovery Operator Relationship Specialty Start Date End Date Renu Doll MD PCP - General Family Medicine 10/12/15 01/08/17 documented as of this encounter
--- OUTSIDE RECORDS SUMMARY | 2024-05-29 15:53 | XMS_ITS | Encounter Summary ---
Author Organization [place] [address] Care Team Providers Care Production Administrative Assistant Name Role Phone Renu Doll MD Primary Care Provider Collin rudd Reason for Visit * Reason Onset Date Comments Medication Problem 02/15/2016 Encounter Details Date Type Department Care Team (Late st Contact Info) Description 02/15/2016 Telephone [facility] [address] [address] [place] [address] Renu Doll MD Medication Problem [...] complication Take 5 mg/hr by nebulization continuous. 20 mL 2 02/15/2016 6 documented in this encounter Miscellaneous Notes * Telephone Encounter - Mckenzie Muro RMA - 02/15/2016 2:42 PM EDT Associated with a diagnosis code. Sent to pharm. * Telephone Encounter - Orquidea Velasquez 02/15/2016 12:47 PM EDT Can you re send the Albuterol solution for his nebulizer with the Diagnosis code attached. Due to his insurance it is required. [facility] [place] documented in this encounter Plan of Treatment Upcoming Encounters Date Type Department Care Team (Late st Contact Info) Description 06/28/2024 9:40 AM EST Clinical Support [facility] [address] [place] [phone] 11/19/2024 1:40 PM EDT Office Visit SEP Neurology [facility] [address] [place] [address] Lyndsay Brewer DO [address] [place] [address] documented as of this encounter Visit Diagnoses Diagnosis Moderate persistent asthma without complication- Primary Unspecified asthma documented in this encounter Discontinued Medications Medication Sig Discontinue Reason Start Date End Da te albuterol (PROVENTIL) 5 mg/mL Inhl Solution for Nebulization Take 5 mg/hr by nebulization continuous. Reorder 02/02/2016 02/15/2016 documented as of this encounter Care Teams Production Administrative Assistant Relationship Specialty Start Date End Date Renu Doll MD PCP - General Family Medicine 10/12/15 01/08/17 documented as of this encounter
--- OUTSIDE RECORDS SUMMARY | 2024-05-29 15:53 | XMS_ITS | Encounter Summary ---
Author Organization [place] [address] Care Team Providers Care Boiler Testing Technician Name Role Phone Renu Doll MD Primary Care Provider Collin rudd Reason for Visit * Reason Comments Insect Bite Encounter Details Date Type Department Care Team (Late st Contact Info) Description 07/13/2016 2:00 PM EST Office Visit [facility] [address] [place] [address] Renu Doll MD Cellulitis, unspecified cellulitis site (Primary Dx); Moderate persistent asthma without complication; Encounter for medication refill Social History Tobacco Use Types Packs/Day Years [...] Sign Reading Time Taken Comments Blood Pressure 116/62 07/13/2016 1:57 PM EST Pulse 92 07/13/2016 1:57 PM EST Temperature 37.1 ??C (98.7 ??F) 07/13/2016 1:57 PM ES T Respiratory Rate - - Oxygen Saturation 95% 07/13/2016 1:57 PM EST Inhaled Oxygen Concentration - - Weight 93 kg (205 lb) 07/13/2016 1:57 PM EST Height 170.2 cm (5' 7 ) 07/13/2016 1:57 PM EST Body Mass Index 32.11 07/13/2016 1:57 PM EST documented in this encounter Ordered Prescriptions Prescription Sig Dispense Quantity Refills Last Filled Start Date End Date sulfamethoxazole-t rimethoprim (BACTRIM DS) 800-160 mg Oral TabletIndications: Cellulitis, unspecified cellulitis site Take 1 Tab by mouth every 12 hours for 7 days. 14 Tab 07/13/2016 07/20/2016 albuterol (VENTOLIN HFA) 90 mcg/actuation Inhl HFA Aerosol InhalerIndications :Encounter for medication refill USE 1 OR 2 PUFFS EVERY 4 HOURS NEEDED FOR WHEEZING. 3 Inhaler 2 07/13/2016 02/10/2017 documented in this encounter Progress Notes * Renu Doll MD - 07/13/2016 2:00 PM EST Subjective Zuhair Whitlock is a 50 y.o. male Subjective Chief Complaint Patient presents with ??? Insect Bite Patient in today thinking he got bit by a spider x10 days ago, area is between the 4th and 5th toe on his left foot. He had a friend pop the pocket of fluid for him. He said that the area is not getting any better. Has been using Alcohol, triple antibiotic ointment, athelete's foot cream and spray with no relief. Review of Systems Respiratory: Negative for chest tightness and shortness of breath. Cardiovascular: Negative for chest pain. Skin: Positive for wound. Neurological: Negative for dizziness, light-headedness and headaches. Objective Objective Visit Vitals ??? BP 116/62 (BP Location: Left arm, Patient Position: Sitting) ??? Pulse 92 ??? Temp 98.7 ??F (37.1 ??C) (Oral) ??? Ht 5' 7 (1.702 m) ??? Wt 205 lb (93 kg) ??? SpO2 95% ??? BMI 32.11 kg/m2 Physical Exam Skin: Skin is warm. Lesion noted. There is erythema (between 4th and 5th MTP distally. ). Nursing note and vitals reviewed. Assessment and Plan Zuhair was seen today for insect bite. Diagnoses and all orders for this visit: Cellulitis, unspecified cellulitis site - sulfamethoxazole-trimethoprim (BACTRIM DS) 800-160 mg Oral Tablet; Take 1 Tab by mouth every 12 hours for 7 days. Moderate persistent asthma without complication Encounter for medication refill - albuterol (VENTOLIN HFA) 90 mcg/actuation Inhl HFA Aerosol Inhaler; USE 1 OR 2 PUFFS EVERY 4 HOURS NEEDED FOR WHEEZING. No Follow-up on file. Patient was educated [...] Patient Instructions - Renu Doll MD - 07/13/2016 2:12 PM EST Images from the original note were not included. Cellulitis Cellulitis is an infection of the skin and the tissue beneath it. The infected area is usually red and tender. Cellulitis occurs most often in the arms and lower legs. CAUSES Cellulitis is caused by bacteria that enter the skin through cracks or cuts in the skin. The most common types of bacteria that cause cellulitis are staphylococci and streptococci. SIGNS AND SYMPTOMS ?? Redness and warmth. ?? Swelling. ?? Tenderness or pain. ?? Fever. DIAGNOSIS Your health care provider can usually determine what is wrong based on a physical exam. Blood testsmay also be done. TREATMENT Treatment usually involves taking an antibiotic medicine. HOME CARE INSTRUCTIONS ?? Take your antibiotic medicine as directed by your health care provider. Finish the antibiotic even if you start to feel better. ?? Keep the infected arm or leg elevated to reduce swelling. ?? Apply a warm cloth to the affected area up to 4 times per day to relieve pain. ?? Take medicines only as directed by your health care provider. ?? Keep all follow-up visits as directed by your health care provider. SEEK MEDICAL CARE IF: ?? You notice red streaks coming from the infected area. ?? Your red area gets larger or turns dark in color. ?? Your bone or joint underneath the infected area becomes painful after the skin has healed. ?? Your infection returns in the same area or another area. ?? You notice a swollen bump in the infected area. ?? You develop new symptoms. ?? You have a fever. SEEK IMMEDIATE MEDICAL CARE IF: ?? You feel very sleepy. ?? You develop vomiting or diarrhea. ?? You have a general ill feeling (malaise) with muscle aches and pains. This information is not intended to replace advice given to you by your health care provider. Make sure you discuss any questions you have with your health care provider. Document Released: 03/22/2006 Document Revised: 03/02/2016 Document Reviewed: 08/27/2012 [employer] Patient Education ??2016 [employer]. documented in this encounter Plan of Treatment Upcoming Encounters Date Type Department Care Team (Late st Contact Info) Description 06/28/2024 9:40 AM EST Clinical Support [facility] [address] [place] [address] 11/19/2024 1:40 PM EDT Office Visit SE[facility] Neurology [facility] [address] [place] [address] Lyndsay Brewer DO [address] [place] [address] documented as of this encounter Goals Goal Patient Goal Type Associated Problems Recent Progress Patient-Stated? Author Blood Pressure < 140/90 Blood Pressure 134/84(2023 1:16 PM EST) No Yana Choi RMA documented as of this encounter Visit Diagnoses Diagnosis Cellulitis, unspecified cellulitis site- Primary Moderate persistent asthma without complication Unspecified asthma Encounter for medication refill Issue of repeat prescriptions documented in this encounter Discontinued Medications Medication Sig Discontinue Reason Start Date End Da te albuterol (VENTOLIN HFA) 90 mcg/actuation Inhl HFA Aerosol InhalerIndications:Encou nter for medication refill USE 1 OR 2 PUFFS EVERY 4 HOURS NEEDED FOR WHEEZING. Reorder 03/30/2016 07/13/2016 documented as of this encounter Care Teams Boiler Testing Technician Relationship Specialty Start Date End Date Renu Doll MD PCP - General Family Medicine 10/12/15 01/08/17 documented as of this encounter
--- OUTSIDE RECORDS SUMMARY | 2024-05-29 15:53 | XMS_ITS | Encounter Summary ---
Author Organization [facility] Address [facility] [place] [address] Care Team Providers Care Freight Weigher Name Role Phone Renu Doll MD Primary Care Provider Collin rudd Encounter Details Date Type Department Care Team (Latest Contact Info) Description 09/07/2016 3:35 PM EDT - 09/07/2016 11:59 PM EDT Hospital Encounter [facility] [place] PROCESSING [facility] [place] [address] Blisters of multiple sites Discharge Disposition: Home or Self Care Social [...] Discharge Nebulizer Accessories (ALL FLOW 4000 KIT) [facility] equivalent 1 Each 0 06/27/2012 documented as of this encounter Discharge Disposition Disposition Code Departure Means Destination Home or Self Care documented in this encounter Plan of Treatment Upcoming Encounters Date Type Department Care Team (Late st Contact Info) Description 06/28/2024 9:40 AM EST Clinical Support ANTOLIN [facility] [address] [place] [phone] 11/19/2024 1:40 PM EDT Office Visit SEP Neurology [facility] [address] [place] [address] Lyndsay BrewerDO [address] [place] [address] documented as of this encounter Goals Goal Patient Goal Type Associated Problems Recent Progress Patient-Stated? Author Blood Pressure < 140/90 Blood Pressure 134/84(2023 1:16 PM EST) No Yana Choi, ESTEFANY documented as of this encounter Procedures Procedure Name Priority Date/Time Associated Diagnosis Comments WOUND CULTURE (STAIN INCLUDED) Routine 09/07/2016 9:27 AM EDT Blisters of multiple sites documented in this encounter Results * WOUND CULTURE (09/07/2016 9:27 AM EDT) GS No slide sent/smear made after culture inoculated No WBC's seen Abundant Gram positive cocci suggestive of staphylococci [facility] Final Abundant growth of Methicillin-Resist ant Staphylococcus aureus Abundant growth of Staphylococcus warneri No further workup Very sparse growth of Acinetobacter lwoffii If susceptibility to imipenem desired, within one week call microbiology Sparse growth of Pantoea species [facility] Organism Methicillin-Resist ant Staphylococcus aureus [facility] Organism Acinetobacter lwoffii [facility] Organism Pantoea species [facility] Blister 09/07/2016 9:27 AM EDT 09/07/2016 4:48 PM EDT Narrative Organism Antibiotic Method Susceptibility Methicillin Resistant Staphylococcus aureus Benzylpenicillin V JASPER >=0.5: Resistant Methicillin Resistant Staphylococcus aureus Ciprofloxacin V JASPER <=0.5: Susceptible Methicillin Resistant Staphylococcus aureus Clindamycin V JASPER <=0.25: Susceptible Methicillin Resistant Staphylococcus aureus Erythromycin V JASPER >=8: Resistant Methicillin Resistant Staphylococcus aureus Gentamicin V JASPER <=0.5: Susceptible Comment:Rifampin and Gentamicin should not be used alone for antimicrobial therapy. For methicillin resistant staphylococci, ciprofloxacin should also not be used alone. Methicillin Resistant Staphylococcus aureus Linezolid V JASPER 2: Susceptible Methicillin Resistant Staphylococcus aureus Oxacillin V JASPER >=4: Resistant Methicillin Resistant Staphylococcus aureus Rifampin V JASPER <=0.5: Susceptible Methicillin Resistant Staphylococcus aureus Tetracycline V JASPER <=1: Susceptible Methicillin Resistant Staphylococcus aureus Trimethoprim/Sulfametho xazole V JASPER <=10: Susceptible Methicillin Resistant Staphylococcus aureus Vancomycin V JASPER 1.0: Susceptible Acinetobacter lwoffii Amikacin MINIMUM IN HIBITORY CONCENTRATION <=16: Susceptible Acinetobacter lwoffii Ampicillin/Sulbactam MINIM UM INHIBITORY CONCENTRATION <=1/0.5: Susceptible Acinetobacter lwoffii Cefotaxime MINIMUM IN HIBITORY CONCENTRATION <=2: Susceptible Acinetobacter lwoffii Ceftazidime MINIMUM IN HIBITORY CONCENTRATION <=1: Susceptible Acinetobacter lwoffii Ceftriaxone MINIMUM IN HIBITORY CONCENTRATION <=1: Susceptible Acinetobacter lwoffii Ciprofloxacin MINIMUM IN HIBITORY CONCENTRATION <=1: Susceptible Acinetobacter lwoffii Gentamicin MINIMUM IN HIBITORY CONCENTRATION <=1: Susceptible Acinetobacter lwoffii Levofloxacin MINIMUM IN HIBITORY CONCENTRATION <=0.25: Susceptible Acinetobacter lwoffii Meropenem MINIMUM IN HIBITORY CONCENTRATION <=1: Susceptible Acinetobacter lwoffii Piperacillin MINIMUM IN HIBITORY CONCENTRATION <=16: Susceptible Acinetobacter lwoffii Tetracycline MINIMUM IN HIBITORY CONCENTRATION <=4: Susceptible Acinetobacter lwoffii Ticar/ K Clav MINIMUM IN HIBITORY CONCENTRATION <=8: Susceptible Acinetobacter lwoffii Tobramycin MINIMUM IN HIBITORY CONCENTRATION <=1: Susceptible Acinetobacter lwoffii Trimethoprim/Sulfa metho xazole MINIMUM INHIBITORY CONCENTRATION <=2/38: Susceptible Pantoea species Amikacin MINIMUM INHIBITO RY CONCENTRATION <=16: Susceptible Pantoea species Amoxicillin/Clavulanate MINIMUM INHIBITORY CONCENTRATION <=4/2: Susceptible Pantoea species Ampicillin MINIMUM INHIBITO RY CONCENTRATION >16: Resistant Pantoea species Ampicillin/Sulbactam MINIMUM INH IBITORY CONCENTRATION 2/1: Susceptible Pantoea species Aztreonam MINIMUM INHIBITO RY CONCENTRATION >16: Resistant Pantoea species Cefazolin MINIMUM INHIBITO RY CONCENTRATION 4: Susceptible Pantoea species Cefoxitin MINIMUM INHIBITO RY CONCENTRATION >16: Resistant Pantoea species Ciprofloxacin MINIMUM INHIBITO RY CONCENTRATION <=1: Susceptible Pantoea species Ertapenem MINIMUM INHIBITO RY CONCENTRATION <=0.5: Susceptible Pantoea species Gentamicin MINIMUM INHIBITO RY CONCENTRATION <=1: Susceptible Pantoea species Imipenem MINIMUM INHIBITO RY CONCENTRATION <=0.5: Susceptible Pantoea species Levofloxacin MINIMUM INHIBITO RY CONCENTRATION <=0.25: Susceptible Pantoea species Meropenem MINIMUM INHIBITO RY CONCENTRATION <=1: Susceptible Pantoea species Piperacillin MINIMUM INHIBITO RY CONCENTRATION <=16: Susceptible Pantoea species Piperacillin/Tazobactam MINIMUM INHIBITORY CONCENTRATION <=4: Susceptible Pantoea species Tetracycline MINIMUM INHIBITO RY CONCENTRATION <=4: Susceptible Pantoea species Ticar/ K Clav MINIMUM INHIBITO RY CONCENTRATION <=8: Susceptible Pantoea species Tigecycline MINIMUM INHIBITO RY CONCENTRATION <=2: Susceptible Pantoea species Tobramycin MINIMUM INHIBITO RY CONCENTRATION <=1: Susceptible Pantoea species Trimethoprim/Sulfame tho xazole MINIMUM INHIBITORY CONCENTRATION <=2/38: Susceptible us Renu Doll MD MICROBIOLOGY - GENERAL [place] [address] documented in this encounter Visit Diagnoses Diagnosis Blisters of multiple sites Other, multiple, and unspecified sites, blister, without mention of infection documented in this encounter Care Teams Freight Weigher Relationship Specialty Start Date End Date Renu Doll MD PCP - General Family Medicine 10/12/15 01/08/17 documented as of this encounter
--- OUTSIDE RECORDS SUMMARY | 2024-05-29 15:53 | XMS_ITS | Encounter Summary ---
Author Organization [place] [address] Care Team Providers Care Graduate Student Name Role Phone Renu Doll MD Primary Care Provider Collin rudd Reason for Visit * Reason Comments Abscess Encounter Details Date Type Department Care Team (Late st Contact Info) Description 08/26/2016 10:00 AM EST [place] [facility] [place] [address] [place] [address] Michelle Garrido APRN Laceration of toe, subsequent encounter (Primary Dx) Social History Tobacco [...] Sign Reading Time Taken Comments Blood Pressure 122/76 08/26/2016 10:03 AM EST Pulse 73 08/26/2016 10:03 AM EST Temperature 36.8 ??C (98.3 ??F) 08/26/2016 10:[address] Respiratory Rate - - Oxygen Saturation 96% 08/26/2016 10:03 AM EST Inhaled Oxygen Concentration - - Weight 93.9 kg (207 lb) 08/26/2016 10:03 AM EST Height 170.2 cm (5' 7 ) 08/26/2016 10:03 AM EST Body Mass Index 32.42 08/26/2016 10:03 AM EST documented in this encounter Progress Notes * Michelle Garrido APRN - 08/26/2016 10:00 AM EST Subjective Zuhair Whitlock is a 50 y.o. male Subjective Chief Complaint Patient presents with ??? Abscess Pt states he has had a blister on his left foot for a few weeks now. He saw Dr. Young twice for issue. He has popped the blister several times, yellow pus comes out of it and then the skin falls off. He states its an endless cycle. He states it got better after the abx Dr Young gave him but but it came back 2 or 3 days later. He soaks it in epsom salt BID or TID and notices a difference when he does not d o it. Review of Systems Skin: Positive for wound. Objective Objective Visit Vitals ??? BP 122/76 ??? Pulse 73 ??? Temp 98.3 ??F (36.8 ??C) (Oral) ??? Ht 5' 7 (1.702 m) ??? Wt 207 lb (93.9 kg) ??? SpO2 96% ??? BMI 32.42 kg/m2 Physical Exam Skin: Laceration of plantar side of 4th digit on left foot, non-healing. There is no erythema/edema/warmth/drainage noted. Assessment and Plan Zuhair was seen today for abscess. Diagnoses and all orders for this visit: Laceration of toe, subsequent encounter Pt instructed to pad the laceration with guaze during the workday and change dressing at least onceduring the day. At night, soak with epsom salts and leave dry and open to air in the evenings. RTO if redness, drainage, swelling, warmth, or foul odor. Return if symptoms worsen or fail to [...] EST Clinical Support SEP [place] [address] [place] [phone] 11/19/2024 1:40 PM EDT Office Visit SEP Neurology [facility] [address] [place] [address] Lyndsay Brewer DO [address] [place] [address] documented as of this encounter Goals Goal Patient Goal Type Associated Problems Recent Progress Patient-Stated? Author Blood Pressure < 140/90 Blood Pressure 134/84(2023 1:16 PM EST) No Yana Choi, RMA documented as of this encounter Visit Diagnoses Diagnosis Laceration of toe, subsequent encounter- Primary documented in this encounter Discontinued Medications Medication Sig Discontinue Reason Start Date End Da te cetirizine (ZYRTEC) 10 mg Oral Tablet Take by mouth as needed. DELETE-Therapy completed 08/26/2016 documented as of this encounter Care Teams Graduate Student Relationship Specialty Start Date End Date Renu Doll MD PCP - General Family Medicine 10/12/15 01/08/17 documented as of this encounter
--- OUTSIDE RECORDS SUMMARY | 2024-05-29 15:53 | XMS_ITS | Encounter Summary ---
Author Organization [place] [address] Care Team Providers Care Clinical Cytogeneticist Scientist Name Role Phone Renu Doll MD Primary Care Provider Collin rudd Reason for Visit * Reason Comments Cough Encounter Details Date Type Department Care Team (Late st Contact Info) Description 06/28/2016 9:15 AM EST [place] [facility] [place] [address] [place] [address] Renu Doll MD Acute bronchitis, unspecified organism (Primary Dx); Rosacea Social History Tobacco Use Types Packs/Day Years [...] Reading Time Taken Comments Blood Pressure 132/86 06/28/2016 9:09 AM EST Pulse 81 06/28/2016 9:09 AM EST Temperature 36.6 ??C (97.8 ??F) 06/28/2016 9:09 AM ES T Respiratory Rate - - Oxygen Saturation 97% 06/28/2016 9:09 AM EST Inhaled Oxygen Concentration - - Weight 94.3 kg (208 lb) 06/28/2016 9:09 AM EST Height 170.2 cm (5' 7 ) 06/28/2016 9:09 AM EST Body Mass Index 32.58 06/28/2016 9:09 AM EST documented in this encounter Ordered Prescriptions Prescription Sig Dispense Quantity Refills Last Filled Start Date End Date metroNIDAZOLE (METROGEL) 0.75 % Top GelIndications:Ro sacea Apply topically 2 times daily. 70 g 06/28/2016 0 methylPREDNISolon e (MEDROL DOSPACK) 4 mg Oral Tablets, Dose PackIndications:A cute bronchitis, unspecified organism See package instructions 21 Tab 06/28/2016 7 benzonatate (TESSALON) 200 mg Oral CapsuleIndication s:Acute bronchitis, unspecified organism Take 1 Cap by mouth 3 times daily as needed for Cough for up to 10 days. 30 Cap 06/28/2016 7 azithromycin (ZITHROMAX) 250 mg Oral TabletIndications :Acute bronchitis, unspecified organism Take 2 tablets (500 mg) on Day 1, followed by 1 tablet (250 mg) once daily on Days 2 through 5. 6 Tab 06/28/2016 7 documented in this encounter Progress Notes * Renu Doll MD - 06/28/2016 9:15 AM EST Subjective Zuhair Whitlock is a 50 y.o. male Subjective Chief Complaint Patient presents with ??? Cough Patient has a family history of strep. Sore throat has been present 6 days. Wants to know if he is able to eat grapefruit with his losartan-hctz. Review of Systems Constitutional: Negative for fever. HENT: Positive for congestion, postnasal drip, rhinorrhea, sore throat, trouble swallowing and voice change. Negative for sinus pressure. Respiratory: Positive for cough (productive- green, yellow). Negative for chest tightness and shortness of breath. Cardiovascular: Negative for chest pain. Neurological: Negative for dizziness, light-headedness and headaches. Objective Objective Visit Vitals ??? BP 132/86 (BP Location: Left arm, Patient Position: Sitting) ??? Pulse 81 ??? Temp 97.8 ??F (36.6 ??C) (Oral) ??? Ht 5' 7 (1.702 m) ??? Wt 208 lb (94.3 kg) ??? SpO2 97% ??? BMI 32.58 kg/m2 Physical Exam Assessment and Plan Zuhair was seen today for cough. Diagnoses and all orders for this visit: Acute bronchitis, unspecified organism - POCT rapid strep A - azithromycin (ZITHROMAX) 250 mg Oral Tablet; Take 2 tablets (500 mg) on Day 1, followed by 1 tablet (250 mg) once daily on Days 2 through 5. - benzonatate (TESSALON) 200 mg Oral Capsule; Take 1 Cap by mouth 3 times daily as needed for Coughfor up to 10 days. - methylPREDNISolone (MEDROL DOSPACK) 4 mg Oral Tablets, Dose Pack; See package instructions Rosacea - metroNIDAZOLE (METROGEL) 0.75 % Top Gel; Apply topically 2 times daily. No Follow-up on file. Patient was educated [...] EST Clinical Support AN[facility] [address] [place] [phone] 11/19/2024 1:40 PM EDT Office Visit SEP Neurology [facility] [address] [place] [phone] Lyndsay Brewer DO [address] [place] [id number] documented as of this encounter Goals Goal Patient Goal Type Associated Problems Recent Progress Patient-Stated? Author Blood Pressure < 140/90 Blood Pressure 134/84(2023 1:16 PM EST) No Yana Choi RMA documented as of this encounter Procedures Procedure Name Priority Date/Time Associated Diagnosis Comments POCT RAPID STREP A Routine 06/28/2016 9: 20 AM EST Acute bronchitis, unspecified organism documented in this encounter Results * POCT RAPID STREP A (06/28/2016 9:20 AM EST) Strep A Ag None Detected None Detected Pos/Neg SEP OFFICE Lot Number [id number] SEP OFFICE Expiration Date 06/2017 SEP OFFICE SeriAl # SEP OFFICE Control Line Yes YES/NO SEP OFFICE 06/28/2016 9:20 AM EST Renu Doll MD POINT OF CARE TEST ORDERABLES Final Result SEP OFFICE documented in this encounter Visit Diagnoses Diagnosis Acute bronchitis, unspecified organism- Primary Rosacea documented in this encounter Care Teams Clinical Cytogeneticist Scientist Relationship Specialty Start Date End Date Renu Doll MD PCP - General Family Medicine 10/12/15 01/08/17 documented as of this encounter
--- OUTSIDE RECORDS SUMMARY | 2024-05-29 15:53 | XMS_ITS | Encounter Summary ---
Author Organization [place] [address] Care Team Providers Care Service Member Name Role Phone Renu Doll MD Primary Care Provider Collin rudd Reason for Visit * Reason Comments Medication Refill Encounter Details Date Type Department Care Team (Late st Contact Info) Description 09/30/2016 Refill [facility] [address] [email or web address] [phone] Renu Doll MD Medication Refill Social [...] MOUTH NEEDED FOR ERECTILE DYSFUNCTION 90 Tab 09/30/2016 7 documented in this encounter Plan of Treatment Upcoming Encounters Date Type Department Care Team (Late st Contact Info) Description 06/28/2024 9:40 AM EST Clinical Support [facility] [address] [email or web address] [phone] 11/19/2024 1:40 PM EDT Office Visit SEP Neurology [facility] [address] [place] [address] Lyndsay Brewer DO [address] [place] [address] documented as of this encounter Goals Goal [...] BY MOUTH NEEDED FOR ERECTILE DYSFUNCTION Reorder 07/18/2016 09/30/2016 documented as of this encounter Additional Health Concerns Infection Onset Date Last Indicated Resolved Time MRSA 09/07/2016 09/07/2016 04/03/2017 9:55 AM EDT documented as of this encounter Care Teams Service Member Relationship Specialty Start Date End Date Renu Doll MD PCP - General Family Medicine 10/12/15 01/08/17 documented as of this encounter
--- OUTSIDE RECORDS SUMMARY | 2024-05-29 15:53 | XMS_ITS | Encounter Summary ---
Author Organization [place] [address] Care Team Providers Care Septic Tank Service Technician Name Role Phone Renu Doll MD Primary Care Provider Collin rudd Encounter Details Date Type Department Care Team (Late Contact Info) Description 09/07/2016 Orders Only [facility] [address] [place] [address] Mcihelle Cook MA Blisters of multiple sites (Primary Dx) Social History Tobacco Use Types [...] EST Clinical Support [facility] [address] [address] 11/19/2024 1:40 PM EDT Office Visit SEP Neurology [facility] [address] [place] [address] Lyndsay Brewer DO [address] [facility] [address] [place] [address] documented as of this encounter Goals Goal Patient Goal Type Associated Problems Recent Progress Patient-Stated? Author Blood Pressure < 140/90 Blood Pressure 134/84(2023 1:16 PM EST) No Yana Choi RMA documented as of this encounter Results * WOUND CULTURE (09/07/2016 9:27 AM EDT) GS No slide sent/smear made after culture inoculated No WBC's seen Abundant Gram positive cocci suggestive of staphylococci [facility] Final Abundant growth of Methicillin-Resist ant Staphylococcus aureus Abundant growth of Staphylococcus warneri No further workup Very sparse growth of Acinetobacter lwoffii If susceptibility to imipenem desired, within one week call microbiology Sparse growth of Pantoea species [facility] Organism Methicillin-Resist ant Staphylococcus aureus [facility] Organism Acinetobacter lwoffii [facility] Organism Pantoea species [facility] Blister 09/07/2016 9:27 AM EDT [...] tho xazole MINIMUM INHIBITORY CONCENTRATION <=2/38: Susceptible Renu Doll MD MICROBIOLOGY - GENERAL ORDERA BLES Final Result Performing Organization Address City/State/[facility] Co de Phone Number [facility] [address] [place] [address] documented in this encounter Visit Diagnoses Diagnosis Blisters of multiple sites- Primary Other, multiple, and unspecified sites, blister, without mention of infection documented in this encounter Care Teams Septic Tank Service Technician Relationship Specialty Start Date End Date Renu Doll MD PCP - General Family Medicine 10/12/15 01/08/17 documented as of this encounter
--- OUTSIDE RECORDS SUMMARY | 2024-05-29 15:54 | XMS_ITS | Encounter Summary ---
Author Organization [place] [address] Care Team Providers Care Air Export Agent Name Role Phone Unavailable Primary Care Provider Unavailabl e Reason for Visit * Reason Comments Medication Refill Encounter Details Date Type Department Care Team (Late Contact Info) Description 09/16/2012 Refill SEP [facility] [address] [place] [address] Valdo Espitia MD [address] [id number] Medication Refill Social History Tobacco Use Types [...] Date End Date VENTOLIN HFA 90 mcg/actuation inhaler USE 1 OR 2 PUFFS EVERY 4 HOURS NEEDED FOR WHEEZING. 1 Inhaler 5 09/16/2012 10/05/2015 documented in this encounter Plan of Treatment Upcoming Encounters Date Type Department Care Team (Late Contact Info) Description 06/28/2024 9:40 AM EST Clinical Support [facility] [address] [employer] [place] [phone] 11/19/2024 1:40 PM EDT Office Visit SEP Neurology [facility] [address] [place] [address] Lyndsay Brewer, [address] [place] [address] documented as of this encounter Visit Diagnoses Not on filedocumented in this encounter
--- OUTSIDE RECORDS SUMMARY | 2024-05-29 15:54 | XMS_ITS | Encounter Summary ---
Author Organization [place] [address] Care Team Providers Care Tool Room Machinist Name Role Phone Unavailable Primary Care Provider Unavailabl e Reason for Referral * Consultation (Routine) - Closed Specialty Diagnoses / Procedures Referred By Gus kunz Referred To Contact Internal Medicine-Gastroenterol ogy Diagnoses Diarrhea Procedures RI OFFICE/OUTPT VISIT,ERICK ALVAREZ Gregory T, MD Phone: tel: Referral ID Status Reason Start Date Expiration Date Visits Re quested Visits Authorized [id number] Closed 01/16/2012 07/14/2012 1 1 Reason for Visit * Reason Onset Date Comments Other 01/16/2012 Encounter Details Date Type Department Care Team (Late st Contact Info) Description 01/16/2012 Telephone [facility] [address] [place] [address] Myrna Spann MA [address] [facility] [address] [place] [address] Other Social History Tobacco Use Types Packs/Day [...] encounter Miscellaneous Notes * Telephone Encounter - Dalila Holland MA - 01/16/2012 12:59 PM EDT Having diarrhea frequently, would like to see GI. Please schedule * Telephone Encounter - Myrna Spann MA - 01/16/2012 11:28 AM EDT Was seen this am but did not mention a lot of things to the doctor, he forgot.. Can a nurse call him to go over these things with him? documented in this encounter Plan of Treatment Upcoming Encounters Date Type Department Care Team (Late st Contact Info) Description 06/28/2024 9:40 AM EST Clinical Support [facility] [place] [address] [place] [address] 11/19/2024 1:40 PM EDT Office Visit SEP Neurology [facility] [address] [place] [phone] Lyndsay Brewer DO [address] [place] [address] Scheduled Referrals Name Type Priority Associated Diagnoses Order Schedule AMB REFERRAL TO GASTROENTEROLOGY Outpatient Referral Routine Diarrhea Ordered: 01/16/2012 documented as of this encounter Visit Diagnoses Diagnosis Diarrhea- Primary documented in this encounter
--- OUTSIDE RECORDS SUMMARY | 2024-05-29 15:54 | XMS_ITS | Encounter Summary ---
Author Organization [place] [address] Care Team Providers Care Director Of Counterintelligence Name Role Phone Unavailable Primary Care Provider Unavailabl e Reason for Visit * Reason Comments Cough hx asthma, copd, fede al congestion, body aches, used neb 5x last night, took ibuprofen 600mg, x4days Otalgia left side Encounter Details Date Type Department Care Team (Late Contact Info) Description 09/25/2015 10:15 AM EDT Office Visit [facility] Ur[facility] Care [address] [address] Natan Paniagua MD Cough (Primary Dx); Otalgia, left; Asthmatic bronchitis, mild intermittent, with acute exacerbation Social History Tobacco Use Types Packs/Day [...] Sign Reading Time Taken Comments Blood Pressure 154/75 09/25/2015 10:17 AM EDT Pulse 92 09/25/2015 10:17 AM EDT Temperature 36.7 ??C (98 ??F) 09/25/2015 10:17 AM EDT Respiratory Rate 22 09/25/2015 10:17 AM EDT Oxygen Saturation 97% 09/25/2015 10:17 AM EDT Inhaled Oxygen Concentration - - Weight 88.5 kg (195 lb) 09/25/2015 10:17 AM EDT Height 170.2 cm (5' 7 ) 09/25/2015 10:17 AM EDT Body Mass Index 30.54 09/25/2015 10:17 AM EDT documented in this encounter Ordered Prescriptions Prescription Sig Dispense Quantity Refills Last Filled Start Date End Date azithromycin (ZITHROMAX) 250 mg Oral Tablet Take two now, then one every 24 hours until gone 6 Tab 0 09/25/2015 10/12/2015 documented in this encounter Progress Notes * Monika Carreon - 09/25/2015 11:00 AM EDT ADMINISTERED SOLU CORTEF IM. pATIENT TOLERATED WELL AND REMAINED IN FACILITY POST INJECTION 10 MINUTES. * Natan Paniagua MD - 09/25/2015 10:50 AM EDT Subjective: Patient ID: Zuhair Whitlock is a 49 y.o. male. Chief Complaint Patient presents with ??? Cough hx asthma, copd, nasal congestion, body aches, used neb 5x last night, took ibuprofen 600mg, x4days ??? Otalgia left side HPI: 39-year-old male presents with cough, wheezing, exacerbation of COPD and asthma. Also reports left ear pain ??2 days. Reports body aches and feeling feverish. Taking Zyrtec and using home nebulizer. Patients past medical, family and social histories were reviewed and updated. There were no changesexcept as noted. Review of Systems Constitutional: Positive for fever and chills. HENT: Positive for ear pain and rhinorrhea. Negative for hearing loss. Respiratory: Positive for cough and wheezing. Musculoskeletal: Positive for myalgias. Objective: Filed Vitals: 09/25/15 1017 BP: 154/75 Pulse: 92 Temp: 98 ??F (36.7 ??C) TempSrc: Oral Resp: 22 Height: 5' 7 (1.702 m) Weight: 195 lb (88.451 kg) SpO2: 97% Body mass index is 30.53 kg/(m^2). Physical Exam Constitutional: He is oriented to person, place, and time. He appears well- developed and well-nourished. Non-toxic appearance. No distress. HENT: Head: Normocephalic and atraumatic. Right Ear: Hearing, tympanic membrane and ear canal normal. Left Ear: Hearing, tympanic membrane and ear canal normal. Nose: No mucosal edema. Mouth/Throat: Uvula is midline, oropharynx is clear and moist and mucous membranes are normal. Moderate rhinorrhea. Eyes: Conjunctivae and EOM are normal. Pupils are equal, round, and reactive to light. Neck: Normal range of motion. Neck supple. Cardiovascular: Normal rate, regular rhythm and normal heart sounds. No murmur heard. Pulmonary/Chest: Effort normal. He has wheezes. He has no rales. Wheezing heard mainly on cough. High pitched rhonchi. Musculoskeletal: Normal range of motion. Neurological: He is alert and oriented to person, place, and time. He has normal strength. Skin: Skin is warm, dry and intact. No rash noted. Psychiatric: He has a normal mood and affect. His speech is normal and behavior is normal. Nursing note and vitals reviewed. Influenza screen: Negative Assessment and Plan: Zuhair was seen today for cough and otalgia. Diagnoses and all orders for this visit: Cough Orders: - POCT Influenza A/B Otalgia, left Asthmatic bronchitis, mild intermittent, with acute exacerbation Orders: - Hydrocortisone Sod Succ (PF) 250 mg/2 mL SolR 250 mg; Inject 2 mL as directed once. Other orders - azithromycin (ZITHROMAX) 250 mg Oral Tablet; Take two now, then one every 24 hours until gone Return if symptoms worsen or fail to improve. * Monika Carreon - 09/25/2015 10:42 AM EDT Results for orders placed or performed in visit on 09/25/15 POCT INFLUENZA A/B Result Value Ref Range Influenza A Ag neg Influenza B Ag neg Lot Number [id number] Expiration Date 01/09 documented in this encounter Miscellaneous Notes * Patient Instructions - Natan Paniagua MD - 09/25/2015 10:47 AM EDT 1. Rest at home. 2. Drink plenty of fluids. 3. Extra Vitamen C recommended if you have a viral illness. 4. Avoid public interaction when possible. Wear a mask and wash hands frequently to avoid spreadingthe illness. 5. Take your medicine as directed. Manage pain and fever with Tylenol (acetominphen) or Motrin, Advil (Ibuprofen). 6. Follow up with your PCP if further problems develop or if symptoms worsen. 7. Go the the ER if you experience worsening shortness of breath, chest pain or fever over 104. documented in this encounter Plan of Treatment Upcoming Encounters Date Type Department Care Team (Late st Contact Info) Description 06/28/2024 9:40 AM EST Clinical Support [facility] [address] [place] [address] 11/19/2024 1:40 PM EDT Office Visit [facility] Neurology [facility] [address] [place] [address] Lyndsay Brewer DO [address] [facility] [address] [place] [address] documented as of this encounter Procedures Procedure Name Priority Date/Time Associated Diagnosis Comments POCT INFLUENZA A/B Routine 09/25/2015 10 :42 AM EDT Cough documented in this encounter Results * POCT INFLUENZA A/B (09/25/2015 10:42 AM EDT) Influenza A Ag neg SEP OFFICE Influenza B Ag neg SEP OFFICE Lot Number [id number] SEP OFFICE Expiration Date 01/09 SEP OFFICE 09/25/2015 10:4 2 AM EDT Result Inocente Paniagua MD POINT OF CARE TEST ORDERABLES Final Result [facility] documented in this encounter Visit Diagnoses Diagnosis Cough- Primary Otalgia, left Asthmatic bronchitis, mild intermittent, with acute exacerbation documented in this encounter Administered Medications Inactive Administered Medications - up to 1 most recent administrations Medication Order MAR Action Action Date Dose Rate Site Hydrocortisone Sod Succ (PF) 250 mg/2 mL SolR 250 mg 250 mg, Injection, ONCE, 1 dose, On Mon09/25/15 at 1100, Dx: 1. Asthmatic bronchitis, mild intermittent, with acute exacerbationIndications:Asthmatic bronchitis, mild intermittent, with acute exacerbation Given 09/25/2015 10:53 AM EDT 250 mg documented in this encounter Historical Medications * This list may reflect changes made after this encounter. cetirizine (ZYRTEC) 10 mg Oral Tablet Take by mouth as needed. 08/26/2016 aclidinium bromide (TUDORZA PRESSAIR) 400 mcg/actuation Inhl Aerosol Powdr Breath Activated Inhale 400 mcg into the lungs every 12 hours. 10/05/2015 fluticasone-salme terol (ADVAIR) 100-50 mcg/dose Inhl Disk with Device Inhale into the lungs 2 times daily. 10/12/2015 added in this encounter
--- OUTSIDE RECORDS SUMMARY | 2024-05-29 15:54 | XMS_ITS | Encounter Summary ---
Author Organization [place] [address] Care Team Providers Care Rod Bending Machine Operator Name Role Phone Unavailable Primary Care Provider Unavailabl e Reason for Visit * Reason Onset Date Comments Head Lice 01/02/2012 Encounter Details Date Type Department Care Team (Late st Contact Info) Description 01/02/[address] [address] Valdo Espitia MD [address] [id number] Head Lice Social History Tobacco Use Types Packs/Day Years Used Date Smoking Tobacco: Never Smokeless Tobacco: Never Alcohol Use Standard Drinks/Week Comments No 0 (1 standard drink = 0.6 oz pur e alcohol) Sex and Gender Information Value Date Recorded Sex Assigned at Not on file Legal Sex Male 8:00 PM EDT Gender Identity Not on file Sexual Orientation Not on file documented as of this encounter Ordered Prescriptions Prescription Sig Dispense Quantity Refills Last Filled Start Date End Date malathion (OVIDE) 0.5 % Apply topically See Admin Instructions for 30 days. See admin instructions. 1 Bottle 0 01/02/2012 2 documented in this encounter Miscellaneous Notes * Telephone Encounter - Manuel Shi - 01/02/2012 12:17 PM EDT Please call in meds for head lice documented in this encounter Plan of Treatment Upcoming Encounters Date Type Department Care Team (Late st Contact Info) Description 06/28/2024 9:40 AM EST Clinical Support [facility] [address] [place] [phone] 11/19/2024 1:40 PM EDT Office Visit [facility] Neurology [facility] [address] [place] [address] Lyndsay Brewer, [address] [place] [address] documented as of this encounter Visit Diagnoses Not on filedocumented in this encounter
--- OUTSIDE RECORDS SUMMARY | 2024-05-29 15:54 | XMS_ITS | Encounter Summary ---
Author Organization [place] [address] Care Team Providers Care Dry Mill Worker Name Role Phone Unavailable Primary Care Provider Unavailabl e Reason for Visit * Reason Onset Date Comments Other 11/24/2011 Encounter Details Date Type Department Care Team (Late st Contact Info) Description 11/24/2011 Telephone [facility] [address] [place] [address] Lyndsay Raphael [facility] [address] [facility] [address] [place] [address] Other Social History Tobacco Use [...] encounter Miscellaneous Notes * Telephone Encounter - Valdo Espitia MD - 11/24/2011 5:18 PM EDT Call we will not give him meds get him a pain clinic * Telephone Encounter - Lyndsay Raphael MA - 11/24/2011 4:43 PM EDT 's office called and they are no longer giving him pain medication because he was not showing up for appointments and would not return their calls. documented in this encounter Plan of Treatment Upcoming Encounters Date Type Department Care Team (Late st Contact Info) Description 06/28/2024 9:40 AM EST Clinical Support [facility] [place] [address] [place] [address] 11/19/2024 1:40 PM EDT Office Visit [facility] Neurology [facility] [address] [place] [address] Lyndsay Brewer DO [address] [place] [address] documented as of this encounter Visit Diagnoses Not on filedocumented in this encounter
--- OUTSIDE RECORDS SUMMARY | 2024-05-29 15:54 | XMS_ITS | Encounter Summary ---
Author Organization [place] [address] Care Team Providers Care Clerical And Office Support Workers Name Role Phone Unavailable Primary Care Provider Unavailabl e Reason for Visit * Reason Onset Date Comments Other 05/04/2011 Encounter Details Date Type Department Care Team (Late st Contact Info) Description 05/04/2011 Telephone [facility] [address] [place] [address] Keith Mckeon MA [address] [place], [place] [phone] Other Social History Tobacco Use Types Packs/Day [...] encounter Miscellaneous Notes * Telephone Encounter - Love Sanchez MA - 05/04/2011 4:43 PM EST Pt needs appt was notified * Telephone Encounter - Valdo Espitia MD - 05/04/2011 12:12 PM EST Nurse call * Telephone Encounter - Keith Mckeon MA - 05/04/2011 9:44 AM EST Would like to talk to Dr Espitia, very personal documented in this encounter Plan of Treatment Upcoming Encounters Date Type Department Care Team (Late st Contact Info) Description 06/28/2024 9:40 AM EST Clinical Support [facility] [address] [employer] [place] [phone] 11/19/2024 1:40 PM EDT Office Visit SEP Neurology [facility] [address] [place] [address] Lyndsay Brewer DO [address] [facility] [address] [place] [address] documented as of this encounter Visit Diagnoses Not on filedocumented in this encounter
--- OUTSIDE RECORDS SUMMARY | 2024-05-29 15:54 | XMS_ITS | Encounter Summary ---
Author Organization [place] [address] Care Team Providers Care Cadd Instructor Name Role Phone Unavailable Primary Care Provider Unavailabl e Reason for Visit * Reason Comments Shortness of Breath Patient reports a ch est cold that has worsened his COPD and asthma. He has rib pain from coughing. The patient is in remission from heroin abuse. Cough Chest Pain Encounter Details Date Type Department Care Team (Late st Contact Info) Description 08/10/2015 8:26 PM EST - 08/10/2015 11:32 PM EST Emergency [facility] Rolanda Layton [facility] Arvin Garcias MD [address] [place] [address] [place] [address] Bronchitis (Primary Dx) Discharge Disposition: Home or Self [...] Sign Reading Time Taken Comments Blood Pressure 126/70 08/10/2015 11:13 PM EST Pulse 94 08/10/2015 11:20 PM EST Temperature 36.7 ??C (98.1 ??F) 08/10/2015 7:08 PM ES T Respiratory Rate 18 08/10/2015 11:20 PM EST Oxygen Saturation 94% 08/10/2015 11:15 PM EST Inhaled Oxygen Concentration - - Weight 90.7 kg (200 lb) 08/10/2015 7:08 PM EST Height 172.7 cm (5' 8 ) 08/10/2015 7:08 PM EST Body Mass Index 30.41 08/10/2015 7:08 PM EST documented in this encounter Discharge Instructions * Discharge Instructions* Arvin Garcias MD - 08/10/2015 11:03 PM EST Take Z-Patrick daily as directed for the next 5 days 2 prednisone once a day for the next 5 days His albuterol inhaler or nebulizer up to every 4 hours as needed for shortness of breath, cough or wheeze. Follow-up with primary doctor in 1 week. Return to the Emergency Department for any worsening or uncontrolled Shortness of breath, lightheadedness, cough, fevers, or other urgent concerns. * Attachments The following attachments cannot be sent through Care Everywhere. * BRONCHITIS, [id number] (ARABIC) documented in this encounter Medications at Time of Discharge Nebulizer Accessories (ALL FLOW 4000 KIT) [facility] [place] Formulary equivalent 1 Each 0 06/27/2012 azithromycin (ZITHROMAX) 250 mg Oral Tablet Day 1 - take 2 tablets Day 2 - take 1 tablet Day 3 - take 1 tablet Day 4 - take 1 tablet Day 5 - take 1 tablet 6 Tab 0 08/10/2015 6 predniSONE (DELTASONE) 20 mg Oral Tablet Take 3 Tabs by mouth daily for 5 days. 15 Tab 0 08/10/2015 6 documented as of this encounter Ordered Prescriptions Prescription Sig Dispense Quantity Refills Last Filled Start Date End Date predniSONE (DELTASONE) 20 mg Oral Tablet Take 3 Tabs by mouth daily for 5 days. 15 Tab 0 08/10/2015 6 azithromycin (ZITHROMAX) 250 mg Oral Tablet Day 1 - take 2 tablets Day 2 - take 1 tablet Day 3 - take 1 tablet Day 4 - take 1 tablet Day 5 - take 1 tablet 6 Tab 0 08/10/2015 6 albuterol (PROVENTIL) 2.5 mg /3 mL (0.083 %) Inhl Solution for Nebulization Take 3 mL by nebulization every 6 hours as needed for Wheezing. 25 Ampule 0 08/10/2015 6 documented in this encounter Discharge Disposition Disposition Code Departure Means Destination Home or Self Intermediate documented in this encounter ED Notes * Mai Ren RN - 08/10/2015 11:14 PM EST Vital signs stable. Pt getting HHN before discharge. Pt is in no acute distress * Mai Ren RN - 08/10/2015 11:00 PM EST Pt ambulating to bathroom. Pt is in no acute distress * Mai Ren RN - 08/10/2015 9:50 PM EST Vital signs stable. Pt is in no acute distress * Mai Ren RN - 08/10/2015 9:30 PM EST Report received. Assumed care. Pt is resting quietly in no acute distress. * Arvin Garcias MD - 08/10/2015 8:30 PM EST CHIEF COMPLAINT Chief Complaint Patient presents with ??? Shortness of Breath Patient reports a chest cold that has worsened his COPD and asthma. He has rib pain from coughing. The patient is in remission from heroin abuse. ??? Cough ??? Chest Pain HPI Zuhair Whitlock is a 49 y.o. male Hx of COPD, who presents with nonproductive cough and myalgias for the past week, now with worsening wheezing and he has been using his inhaler every hour without relief. No recent travel or sick contracts. Denies recent fevers/chills, nausea/vomiting/diarrhea, chest pain/pressure, lightheadedness, abdominal pain, urinary difficulty/urgency, recent trauma/injury or illness. REVIEW OF SYSTEMS See HPI for further details. Review of systems otherwise negative. PAST MEDICAL HISTORY Past Medical History Diagnosis Date ??? Arthritis ??? Asthma 06/02/2010 ??? EPHRAIM (generalized anxiety disorder) ??? Bipolar affective (HCC) ??? Pneumothorax ??? Heart attack (HCC) ??? Hypertension ??? Arrhythmia ??? Pneumonia ??? Blood transfusion ??? Heroin abuse Remission 3 years. ??? Opiate dependence (HCC) Remission x 5 years FAMILY HISTORY Family History Problem Relation Age of Onset ??? Diabetes Mother ??? Heart Disease Mother ??? High Blood Pressure Mother ??? High Cholesterol Mother ??? Cancer Father SOCIAL HISTORY History Social History ??? Marital Status: Spouse Name: N/A Number of Children: N/A ??? Years of Education: N/A Social History Main Topics ??? Smoking status: Never Smoker ??? Smokeless tobacco: Current User Types: Snuff ??? Alcohol Use: No ??? Drug Use: Not on file ??? Sexual Activity: Not on file Other Topics Concern ??? Not on file Social History Narrative SURGICAL HISTORY Past Surgical History Procedure Laterality Date ??? Joint replacement left hip ??? Eye surgery ??? Hernia repair ??? Knee surgery both ??? Elbow surgery ??? Fracture surgery left leg ??? Total hip arthroplasty CURRENT MEDICATIONS Current Outpatient Rx Name Route Sig Dispense Refill ??? albuterol (PROVENTIL) 2.5 mg /3 mL (0.083 %) nebulizer solution Nebulization Take 3 mL by nebulization every 4 hours as needed for Wheezing. 180 mL 1 ??? albuterol (PROVENTIL;VENTOLIN) 90 mcg/actuation inhaler Inhalation Inhale 1-2 Puffs into the lungs every 4 hours as needed for Wheezing. 17 g 5 ??? naproxen (NAPROSYN) 500 mg Oral Tablet Oral Take 500 mg by mouth 2 times daily. ??? diazepam (VALIUM) 10 mg Oral Take 1 Tab by mouth every 12 hours as needed. 60 Tab 2 ??? gabapentin (NEURONTIN) 600 mg tablet TAKE 1 TABLET BY MOUTH THREE TIMES DAILY . 90 Tab 5 ??? Hydrocortisone Acetate 1 % Oint Topical (Top) Apply 1 Applicator topically 2 times daily. 100 g 5 ??? Nebulizer Accessories (ALL FLOW 4000 KIT) Misc Formulary equivalent 1 Each 0 ??? Nebulizers (SANG BABY NEBULIZER) Misc Formulary equivalent 1 Each 0 ??? oxyCODONE (OXY-IR) 15 mg immediate release tablet Oral Take 1 Tab by mouth 4 times daily. 15 Tab 0 ??? tadalafil (CIALIS) 5 mg tablet Oral Take 1 Tab by mouth as needed for Erectile Dysfunction. 30 Tab 0 ??? VENTOLIN HFA 90 mcg/actuation inhaler USE 1 OR 2 PUFFS EVERY 4 HOURS NEEDED FOR WHEEZING. 1 Inhaler 5 ALLERGIES Allergies Allergen Reactions ??? Abilify [Aripiprazole] Other (See Comments) convulsions ??? Morphine Other (See Comments) Mood swings ??? Nsaids (Non-Steroidal Anti-Inflammatory Drug) PHYSICAL EXAM VITAL SIGNS: Filed Vitals: 08/10/15 1908 08/10/15200908/10/15201608/10/152019 BP: 137/88 Pulse: 103 Temp: 98.1 ??F (36.7 ??C) TempSrc: Oral Resp: 24 22 20 18 Height: 5' 8 (1.727 m) Weight: 200 lb (90.719 kg) SpO2: 95% Constitutional: Well developed, Well nourished, Mild distress, Non-toxic appearance. HENT: Normocephalic, Atraumatic, Bilateral external ears normal, Oropharynx moist, No oral exudates, Nose normal. Eyes: PER, EOMI, Conjunctiva normal, No discharge. Neck: Normal range of motion, No tenderness, Supple, No stridor. Cardiovascular: Normal heart rate and rhythm, No murmurs, No rubs, No gallops. Normal pulses. Thorax & Lungs: Diminished breath sounds, Mild respiratory distress, Moderate expiratory wheezing without prolonged expiratory phase, No Rales, No Rhonchi, No chest tenderness. Abdomen: Bowel sounds normal, Soft, No tenderness, No masses, No pulsatile masses. Skin: Warm, Dry, No erythema, No rash. Back: No tenderness, No CVA tenderness. Extremities: Intact distal pulses, No tenderness, No cyanosis, No clubbing. No deformities. Neurologic: Alert & oriented x 3, Normal motor function, Normal sensory function, No focal deficits noted. RADIOLOGY/ LABS Results for orders placed or performed during the hospital encounter of 08/10/15 XR CHEST PA AND LATERAL Narrative XR CHEST PA AND LATERAL 08/10/2015 8:45 PM CLINICAL: -SHORTNESS OF BREATH -COUGH -CHEST PAIN COMPARISON: 12/21/2010 FINDINGS: The cardiopericardial silhouette and mediastinum are within normal limits. There is emphysema this changes throughout the lungs. There are deformities left from prior trauma. There are no acute infiltrates. There is linear scarring in the right upper lung. A calcified granulomas present left base. Impression IMPRESSION: Findings suspect for COPD. No acute infiltrate. Linear scarring right upper lobe. PROCEDURES COURSE & MEDICAL DECISION MAKING Pertinent Labs & Imaging studies reviewed. (See chart for details) Prior ED and clinical notes reviewed. ED Course: 1) Cough - likely bronchitis with COPD exacerbation Pt's SOB and cough improved after duoneb. Pt started on prednisone and Rx'd new albuterol inhaler. Pt will also be Rx'd Zpack for bronchitis. Pt's vital signs including oxygenation have remained WNL during his stay in the ED. Therefore pt issuitable for d/c to home and follow up with PMD as an outpt. Findings and plan reviewed with pt who is agreeable to plan and verbalized understanding of discharge and follow up instructions. Condition on discharge was stable and improved. FINAL IMPRESSION 1. Bronchitis This chart was completed using voice recognition technology and may contain unintended errors Arvin Garcias MD 08/14/15 [id number] documented in this encounter Plan of Treatment Upcoming Encounters Date Type Department Care Team (Late st Contact Info) Description 06/28/2024 9:40 AM EST Clinical Support [facility] [address] [place] [phone] 11/19/2024 1:40 PM EDT Office Visit [facility] Neurology [facility] [address] [place] [address] [place] [address] Lyndsay Brewer DO [address] [facility] [address] [address] [place] [address] documented as of this encounter Procedures Procedure Name Priority Date/Time Associated Diagnosis Comments XR CHEST PA AND LATERAL EULOGIO 08/10/2015 8:45 PM EST SALINE LOCK IV STAT 08/10/2015 8:42 PM EST documented in this encounter Results * XR CHEST PA AND LATERAL (08/10/2015 8:45 PM EST) Anatomical Region Laterality Modality Chest Radiographic Pauly ging 08/10/2015 8:45 PM EST Impressions 08/10/2015 8:54 PM EST IMPRESSION: Findings suspect for COPD. No acute infiltrate. Linear scarring right upper lobe. Narrative 08/10/2015 8:54 PM EST XR CHEST PA AND LATERAL ?? 08/10/2015 8:45 PM CLINICAL: -SHORTNESS OF BREATH -COUGH -CHEST PAIN COMPARISON: 12/21/2010 FINDINGS: The cardiopericardial silhouette and mediastinum are within normal limits. There is emphysema this changes throughout the lungs. There are deformities left from prior trauma. There are no acute infiltrates. There is linear scarring in the right upper lung. A calcified granulomas present left base. Procedure Note Ben Nickerson III, MD - 08/10/2015 XR CHEST PA AND LATERAL 08/10/2015 8:45 PM CLINICAL: -SHORTNESS OF BREATH -COUGH -CHEST PAIN COMPARISON: 12/21/2010 FINDINGS: The cardiopericardial silhouette and mediastinum are withinnormal limits. There is emphysema this changes throughout the lungs. There are deformities left from prior trauma. There are no acute infiltrates. Thereis linear scarring in the right upper lung. A calcified granulomas presentleft base. IMPRESSION: Findings suspect for COPD. No acute infiltrate. Linearscarring right upper lobe. us Arvin Garcias MD IMG DIAGNOSTIC IMAGING ORDERABL ES Final Result documented in this encounter Visit Diagnoses Diagnosis Bronchitis- Primary Bronchitis, not specified as acute or chronic documented in this encounter Administered Medications Inactive Administered Medications - up to 1 most recent administrations Medication Order MAR Action Action Date Dose Rate Site albuterol (PROVENTIL) nebulizer solution 2.5 mg 2.5 mg, Nebulization, ONCE, 1 dose, On 08/10/15 at 2015 Given 08/10/2015 8:17 PM EST 2.5 mg albuterol sulfate (ACCUNEB) nebulizer solution 2.5 mg 2.5 mg, Nebulization, ONCE, 1 dose, On Mon08/10/15 at 2015 Given 08/10/2015 8:11 PM EST 2.5 mg albuterol-ipratropium (DUO-NEB) 0.5 mg-3 mg(2.5 mg base)/3 mL nebulizer solution 3 mL 3 mL, Nebulization, ONCE, 1 dose, On Mon08/10/15 at 2015, Administered by Respiratory Therapy. Given 08/10/2015 8:10 PM EST 3 mL albuterol-ipratropium (DUO-NEB) 0.5 mg-3 mg(2.5 mg base)/3 mL nebulizer solution 3 mL 3 mL, Nebulization, ONCE, 1 dose, On Mon08/10/15 at 2315, Administered by Respiratory Therapy. Given 08/10/2015 11:15 PM EST 3 mL gi cocktail suspension 30 mL 30 mL, Oral, ONCE, 1 dose, On Mon08/10/15 at 2044 Given 08/10/2015 9:00 PM EST 30 mL methylPREDNISolone sodium succinate (Solu-MEDROL) 125 mg/2 mL injection 125 mg 125 mg, Intravenous, ONCE, 1 dose, On Mon08/10/15 at 2044 Given 08/10/2015 9:00 PM EST 125 mg sodium chloride 0.9 % 1,000 mL IV bolus Intravenous, ONCE, 1 dose, On Mon08/10/15 at 2044, at 983.6 mL/hr IV Started 08/10/2015 8:59 PM EST 983.6 mL/hr documented in this encounter Historical Medications * This list may reflect changes made after this encounter. naproxen (NAPROSYN) 500 mg Oral Tablet Take 500 mg by mouth 2 times daily. 10/12/2015 added in this encounter Active and Recently Administered Medications Times are shown in EST. Scheduled Medication Order 08/08/2015 08/09/2015 08/10/2015 albuterol (PROVENTIL) nebulizer solution 2.5 mg (COMPLETED) 2.5 mg, Nebulization, ONCE, 1 dose, On Mon08/10/15 at 2014 2017 (Given - Provid er: Jeanie Gonzalez, EQUIPMENT CLEANER) albuterol sulfate (ACCUNEB) nebulizer solution 2.5 mg (COMPLETED) 2.5 mg, Nebulization, ONCE, 1 dose, On Mon08/10/15 at 2014 2010 (Given - Provid er: Jeanie Gonzalez, ZULMA) albuterol-ipratropium (DUO-NEB) 0.5 mg-3 mg(2.5 mg base)/3 mL nebulizer solution 3 mL (COMPLETED) 3 mL, Nebulization, ONCE, 1 dose, On Mon08/10/15 at 2014, Administered by Respiratory Therapy. 2009 (Given - Provid er: Jeanie Gonzalez RRT) albuterol-ipratropium (DUO-NEB) 0.5 mg-3 mg(2.5 mg base)/3 mL nebulizer solution 3 mL (COMPLETED) 3 mL, Nebulization, ONCE, 1 dose, On Mon08/10/15 at 2315, Administered by Respiratory Therapy. 2314 (Given - Provid er: Jeanie Gonzalez, ZULMA) gi cocktail suspension 30 mL (COMPLETED) 30 mL, Oral, ONCE, 1 dose, On Mon08/10/15 at 2044 2099 (Given - Provid er: Johana Gauthier RN) methylPREDNISolone sodium succinate (Solu-MEDROL) 125 mg/2 mL injection 125 mg (COMPLETED) 125 mg, Intravenous, ONCE, 1 dose, On Mon08/10/15 at 2044 2099 (Given - Provid er: Johana Gauthier RN) sodium chloride 0.9 % 1,000 mL IV bolus (COMPLETED) Intravenous, ONCE, 1 dose, On Mon08/10/15 at 2044, at 983.6 mL/hr 2058 (IV Started - P rovider: Johana Gauthier RN)2144 (Stopped - Provider: Mai Ren RN) documented in this encounter Orders Medications Ordered That Tone ht Not Have Been Administered Count Last Ordered Date First Ordered Date albuterol-ipratropium (DUO-N EB) 0.5 mg-3 mg(2.5 mg base)/3 mL nebulizer solution 3 mL 1 08/10/2015 Nursing Count Last Ordered Date First Orde red Date ED DIVISION PLANT ENGINEER REQUEST DENZEL REPORT 1 08/10/2015 Respiratory Care Count Last Ordered Date First Ordered Date ED ASSESS & TREAT 1 08/10/2015 IV Count Last Ordered Date First Orde red Date SALINE LOCK IV 1 08/10/2015 documented in this encounter
--- OUTSIDE RECORDS SUMMARY | 2024-05-29 15:54 | XMS_ITS | Encounter Summary ---
Author Organization [facility] [place] [address] Care Team Providers Care Maintenance Repairman Name Role Phone Unavailable Primary Care Provider Unavailabl e Reason for Visit * Reason Onset Date Comments Medication Refill 07/12/2012 Encounter Details Date Type Department Care Team (Late st Contact Info) Description 07/12/[address] [phone] Valdo Espitia MD [address] [phone] Medication Refill Social History Tobacco Use Types [...] 2.5 mg /3 mL (0.083 %) nebulizer solutionIndicatio ns:Bronchitis Take 3 mL by nebulization every 4 hours as needed for Wheezing. 180 mL 1 07/12/2012 6 documented in this encounter Miscellaneous Notes * Telephone Encounter - Matilda Ordaz - 07/12/2012 10:56 AM EST Pt needs a refill on his Albuteral solution. Can we call the pharmacy? documented in this encounter Plan of Treatment Upcoming Encounters Date Type Department Care Team (Late st Contact Info) Description 06/28/2024 9:40 AM EST Clinical Support [facility] [address] [employer] [place] [phone] 11/19/2024 1:40 PM EDT Office Visit [facility] Neurology [facility] [address] [place] [address] Lyndsay Brewer, [address] [place] [address] documented as of this encounter Visit Diagnoses Diagnosis Bronchitis- Primary Bronchitis, not specified as acute or chronic documented in this encounter Discontinued Medications Medication Sig Discontinue Reason Start Date End Da te albuterol (PROVENTIL) 2.5 mg /3 mL (0.083 %) nebulizer solutionIndications:B ronchitis Take 3 mL by nebulization every 4 hours as needed for Wheezing. Reorder 06/27/2012 07/12/2012 documented as of this encounter
--- OUTSIDE RECORDS SUMMARY | 2024-05-29 15:54 | XMS_ITS | Encounter Summary ---
Author Organization [place] [address] Care Team Providers Care Wash Plant Operator Name Role Phone Unavailable Primary Care Provider Unavailabl e Reason for Visit * Reason Comments Medication Refill Encounter Details Date Type Department Care Team (Late st Contact Info) Description 06/04/2011 Refill [facility] [address] [phone] Valdo Espitia MD [address] [phone] Medication Refill Social History Tobacco Use Types [...] mg /3 mL (0.083 %) nebulizer solution USE DIRECTED . 180 mL 0 06/04/2011 2 documented in this encounter Miscellaneous Notes * Telephone Encounter - Irma Rowell RMA - 06/04/2011 11:17 AM EST Med sent documented in this encounter Plan of Treatment Upcoming Encounters Date Type Department Care Team (Late Contact Info) Description 06/28/2024 9:40 AM EST Clinical Support [facility] [address] [place] [phone] 11/19/2024 1:40 PM EDT Office Visit [facility] Neurology [facility] [address] [place] [address] Lyndsay Brewer DO [address] [place] [address] documented as of this encounter Visit Diagnoses Not on filedocumented in this encounter
--- OUTSIDE RECORDS SUMMARY | 2024-05-29 15:54 | XMS_ITS | Encounter Summary ---
Author Organization [place] [address] Care Team Providers Care Berry Planter Name Role Phone Unavailable Primary Care Provider Unavailabl e Reason for Visit * Reason Onset Date Comments Other 01/20/2012 Encounter Details Date Type Department Care Team (Late st Contact Info) Description 01/20/[address] [phone] Valdo Espitia MD [address] [phone] Other Social History Tobacco Use Types Packs/Day [...] Telephone Encounter - Valdo Espitia MD - 01/21/2012 8:29 AM EDT no * Telephone Encounter - Mckenzie Barahona - 01/20/2012 4:38 PM EDT Wants to know if Dr Espitia can give him Vicodin until he can get into a saboxin clinic documented in this encounter Plan of Treatment Upcoming Encounters Date Type Department Care Team (Late st Contact Info) Description 06/28/2024 9:40 AM EST Clinical Support [facility] [address] [employer] [place] [phone] 11/19/2024 1:40 PM EDT Office Visit SEP Neurology [facility] [address] [place] [address] Lyndsay Brewer DO [address] [facility] [address] [place] [address] documented as of this encounter Visit Diagnoses Not on filedocumented in this encounter
--- OUTSIDE RECORDS SUMMARY | 2024-05-29 15:54 | XMS_ITS | Encounter Summary ---
Author Organization [place] [address] Care Team Providers Care Customer Counter Representative Name Role Phone Renu Doll MD Primary Care Provider Collin rudd Encounter Details Date Type Department Care Team (Latest Contact Info) Description 10/14/2015 5:13 PM EDT - 10/14/2015 11:59 PM EDT Hospital Encounter [facility] [place] [facility] [place] [address] HTN (hypertension), malignant Discharge Disposition: Home or Self Care Social [...] Discharge Nebulizer Accessories (ALL FLOW 4000 KIT) [facility] Formulary equivalent 1 Each 0 06/27/2012 dicyclomine (BENTYL) 10 mg Oral CapsuleIndication s:Encounter for medication refill Take 2 Caps by mouth 4 times daily for 30 days. 240 Cap 0 10/12/2015 6 documented as of this encounter Discharge Disposition Disposition Code Departure Means Destination Home or Self Care documented in this encounter Plan of Treatment Upcoming Encounters Date Type Department Care Team (Late st Contact Info) Description 06/28/2024 9:40 AM EST Clinical Support [facility] [address] [place] [phone] 11/19/2024 1:40 PM EDT Office Visit [facility] Neurology [facility] [address] [facility] [place] [address] Osman Lyndsay Polina, DO [address] [place] [address] documented as of this encounter Procedures Procedure Name Priority Date/Time Associated Diagnosis Comments LDL, CALCULATED Routine 10/14/2015 8:38 AM EDT LIPID PANEL REFLEX Routine 10/14/2015 8: 38 AM EDT HTN (hypertension), malignant THYROID STIMULATING HORMONE Routine 10/14/2015 8:38 AM EDT HTN (hypertension), malignant COMPREHENSIVE METABOLIC PANEL Routine 10/14/2015 8:38 AM EDT HTN (hypertension), malignant documented in this encounter Results * (ABNORMAL) LDL, CALCULATED (10/14/2015 8:38 AM EDT) Pathologist [facility] LDL Calculated 105(H) <=100 mg/dL [facility] Comment: ??< 100 ?Optimal 100 - 129 ? Near or above optimal 130 - 159 ? Borderline High 160 - 189 ? High >= 190 ?Very High Blood specimen (specimen) 10/14/2015 8:38 AM EDT 10/14/2015 5:36 PM EDT us Renu Doll MD CHEMISTRY ORDERABLES Final Re sult [facility] [address] [place] [address] * THYROID STIMULATING HORMONE (10/14/2015 8:38 AM EDT) Pathologist [facility] TSH 2.140 0.270 - 4.200 mcIU/mL [facility] Blood specimen (specimen) UPPER LIMB STRUCTURE / Unknown 10/14/2015 8:38 AM EDT 10/14/2015 5:36 PM EDT Renu Doll MD CHEMISTRY ORDERABLES Final Re sult Performing Organization Address City/[facility] Co de Phone Number [facility] [address] [place] [address] * COMPREHENSIVE METABOLIC PANEL (10/14/2015 8:38 AM EDT) Pathologist [facility] Sodium 143 136 - 145 mmol/L [facility] Potassium 4.8 3.5 - 5.0 mmol/L [facility] Chloride 106 98 - 107 mmol/L [facility] Total CO2 25 22 - 29 mmol/L [facility] Anion Gap 12 7 - 16 mmol/L [facility] Calcium 9.7 8.6 - 10.2 mg/dL [facility] Glucose Lvl 93 74 - 100 mg/dL [facility] BUN 15 6 - 20 mg/dL [facility] Creatinine 1.08 0.67 - 1.30 mg/dL [facility] Albumin 4.3 3.5 - 5.2 gm/dL [facility] Total Protein 7.1 6.4 - 8.3 gm/dL [facility] Bili Total 0.3 0.1 - 1.4 mg/dL [facility] AST 20 <=40 IU/L [facility] ALT 18 <=41 IU/L [facility] Alk Phos 80 40 - 129 IU/L [facility] GFR Afr Am >60 [facility] GFR Non Afr Am >60 [facility] Blood specimen (specimen) UPPER LIMB STRUCTURE / Unknown 10/14/2015 8:38 AM EDT 10/14/2015 5:36 PM EDT Renu Doll MD CHEMISTRY ORDERABLES Edited R esult - Final Performing Organization Address City/[facility]/ZIP Co de Phone Number [facility] [address] [place] [address] * (ABNORMAL) LIPID PANEL REFLEX (10/14/2015 8:38 AM EDT) Cholesterol 154 <=200 mg/dL [facility] Comment: < 200 ?Desirable 200 - 239 ? Borderline High >= 240 ?High Triglyceride 85 <=150 mg/dL [facility] Comment: < 150 ? Normal 150 - 199 ?Borderline High 200 - 499 ?High ??>= 500 ? Very High HDL 32(L) >=40 mg/dL [facility] Comment: ?? > 60 ?Optimal 40 - 60 ?Acceptable ?? < 40 ?Low Blood specimen (specimen) UPPER LIMB STRUCTURE / Unknown 10/14/2015 8:38 AM EDT 10/14/2015 5:36 PM EDT us Renu Doll MD CHEMISTRY ORDERABLES Final Re sult [facility] [address] [place] [address] documented in this encounter Visit Diagnoses Diagnosis HTN (hypertension), malignant Essential hypertension, malignant documented in this encounter Care Teams Customer Counter Representative Relationship Specialty Start Date End Date Renu Doll MD PCP - General Family Medicine 10/12/15 01/08/17 documented as of this encounter
--- OUTSIDE RECORDS SUMMARY | 2024-05-29 15:54 | XMS_ITS | Encounter Summary ---
Author Organization [place] [address] Care Team Providers Care Road Freight Firer Name Role Phone Unavailable Primary Care Provider Unavailabl e Reason for Visit * Reason Onset Date Comments Wheezing 06/02/2012 Encounter Details Date Type Department Care Team (Late st Contact Info) Description 06/02/[address] [phone] Valdo Espitia MD [address] [phone] Wheezing Social History Tobacco Use Types Packs/Day [...] Date End Date predniSONE (DELTASONE) 20 mg tablet Take 2 tabs daily for 4 days then 1 tab daily for 4 days 12 Tab 0 06/02/2012 06/12/2012 documented in this encounter Miscellaneous Notes * Telephone Encounter - Lisa Colmenares MA - 06/02/2012 12:46 PM EST Left message * Telephone Encounter - Olivier Casper DO - 06/02/2012 12:45 PM EST Tell him ordered prednisone * Telephone Encounter - Manuel Shi - 06/02/2012 9:04 AM EST Pt is having a hard time breathing -- has been wheezing lately -- can we call in med for this please PLEASE SEND TO [facility] documented in this encounter Plan of Treatment Upcoming Encounters Date Type Department Care Team (Late st Contact Info) Description 06/28/2024 9:40 AM EST Clinical Support [facility] [address] [place] [phone] 11/19/2024 1:40 PM EDT Office Visit SE[facility] Neurology [facility] [address] [place] [address] Lyndsay Brewer DO [address] [place] [address] documented as of this encounter Visit Diagnoses Not on filedocumented in this encounter
--- OUTSIDE RECORDS SUMMARY | 2024-05-29 15:54 | XMS_ITS | Encounter Summary ---
Author Organization [place] [address] Care Team Providers Care Sergeant Of Corrections Name Role Phone Renu Doll MD Primary Care Provider Collin rudd Reason for Visit * Reason Onset Date Comments Other 10/12/2015 Encounter Details Date Type Department Care Team (Late st Contact Info) Description 10/12/2015 Telephone [facility] [employer] [address] [place] [address] Renu Doll MD Other Social [...] Refills Last Filled Start Date End Date carbamide peroxide (DEBROX) 6.5 % Otic DropsIndications:C erumen impaction, left Place 5 Drops in ear(s) 2 times daily. Administer drops in both ears. 30 mL 0 10/13/2015 6 documented in this encounter Miscellaneous Notes * Telephone Encounter - Mckenzie Muro RMA - 10/13/2015 7:43 PM EDT I re sent it just KATELIN ordonez for pt to inform him of this. Told him to call me with any questions or concerns. * Telephone Encounter - Renu Doll MD - 10/13/2015 6:55 PM EDT This was sent in last night. Should be at his Rx * Telephone Encounter - Mckenzie Muro RMA - 10/12/2015 7:09 PM EDT Explained Bio Med to pt, but what would you want to to send in for his ear wax, he knows it wont besent until tomorrow, but I explained I would call him to let him know it was sent. * Telephone Encounter - Yvrose Solis - 10/12/2015 4:41 PM EDT Return call requested RE: Pharm doesn't know what to do with the Bio[employer] form. No rx at pharm for ear wax. Pt is waiting at pharm. documented in this encounter Plan of Treatment Upcoming Encounters Date Type Department Care Team (Late st Contact Info) Description 06/28/2024 9:40 AM EST Clinical Support [facility] [address] [place] [phone] 11/19/2024 1:40 PM EDT Office Visit SEP Neurology [facility] [address] [place] [address] Lyndsay Brewer DO [address] [place] [address] documented as of this encounter Visit Diagnoses Diagnosis Cerumen impaction, left- Primary documented in this encounter Discontinued Medications Medication Sig Discontinue Reason Start Date End Da te carbamide peroxide (DEBROX) 6.5 % Otic DropsIndications:Cerum en impaction, left Place 5 Drops in ear(s) 2 times daily. Administer drops in both ears. Reorder 10/12/2015 10/13/2015 documented as of this encounter Care Teams Sergeant Of Corrections Relationship Specialty Start Date End Date Renu Doll MD PCP - General Family Medicine 10/12/15 01/08/17 documented as of this encounter
--- OUTSIDE RECORDS SUMMARY | 2024-05-29 15:54 | XMS_ITS | Encounter Summary ---
Author Organization [place] [address] Care Team Providers Care Diesel Dragline Operator Name Role Phone Unavailable Primary Care Provider Unavailabl e Reason for Visit * Reason Onset Date Comments Medication Refill 03/15/2011 Encounter Details Date Type Department Care Team (Late st Contact Info) Description 03/15/[address] [phone] Valdo Espitia MD [address] [phone] Medication Refill Social History Tobacco Use Types [...] Refills Last Filled Start Date End Date diazepam (VALIUM) 10 mg Take 1 Tab by mouth every 6 hours as needed. 30 Tab 0 03/15/2011 05/05/2011 documented in this encounter Miscellaneous Notes * Telephone Encounter - Love Sanchez MA - 03/15/2011 5:12 PM EDT meds called in * Telephone Encounter - Love Newton - 03/15/2011 9:36 AM EDT Refill valium documented in this encounter Plan of Treatment Upcoming Encounters Date Type Department Care Team (Late st Contact Info) Description 06/28/2024 9:40 AM EST Clinical Support [facility] [address] [place] [phone] 11/19/2024 1:40 PM EDT Office Visit SE[facility] Neurology [facility] [address] [place] [address] Lyndsay Brewer, [address] [place] [address] documented as of this encounter Visit Diagnoses Not on filedocumented in this encounter Discontinued Medications Medication Sig Discontinue Reason Start Date End Da te diazepam (VALIUM) 10 mg Take 1 Tab by mouth every 6 hours as needed. Reorder 03/07/2011 03/15/2011 documented as of this encounter
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
--- OUTSIDE RECORDS SUMMARY | 2024-05-29 15:54 | XMS_ITS | Encounter Summary ---
Author Organization [place] [address] Care Team Providers Care Chip Frier Name Role Phone Unavailable Primary Care Provider Unavailabl e Reason for Visit * Reason Onset Date Comments Other 07/30/2011 Encounter Details Date Type Department Care Team (Late st Contact Info) Description 07/30/2011 Telephone [facility] [address] [place] [address] Carola Arcos MD [address] [place] [address] Other Social History Tobacco Use Types Packs/Day [...] Date End Date azithromycin (ZITHROMAX) 250 mg tablet Take 2 tablets (500 mg) on Day 1, followed by 1 tablet (250 mg) once daily on Days 2 through 5. 6 Tab 0 07/30/2011 2 documented in this encounter Miscellaneous Notes * Telephone Encounter - Mckenzie Barahona - 07/30/2011 8:50 AM EST Congestion sneezing pt wants antibiotic called in please documented in this encounter Plan of Treatment Upcoming Encounters Date Type Department Care Team (Late st Contact Info) Description 06/28/2024 9:40 AM EST Clinical Support [facility] [address] [employer] [place] [phone] 11/19/2024 1:40 PM EDT Office Visit SEP Neurology [facility] [address] [place] [address] Lyndsay Brewer [address] [facility] [address] [place] [address] documented as of this encounter Visit Diagnoses Not on filedocumented in this encounter
--- OUTSIDE RECORDS SUMMARY | 2024-05-29 15:54 | XMS_ITS | Encounter Summary ---
Author Organization [place] [address] Care Team Providers Care Telemarketer Supervisor Name Role Phone Renu Doll MD Primary Care Provider Collin rudd Reason for Visit * Reason Comments Medication Refill patient recently mov ed into [facility] and has an appt set up with a new PCP next week, patient would like some of his medications refilled Encounter Details Date Type Department Care Team (Late Contact Info) Description 10/05/2015 10:15 AM EDT Office [place] [facility] [place] [facility] [address] [address] Natan Paniagua MD HTN (hypertension), malignant (Primary Dx); Encounter for medication refill; Moderate persistent asthma without complication Social History [...] Sign Reading Time Taken Comments Blood Pressure 138/80 10/05/2015 10:11 AM EDT Pulse 81 10/05/2015 10:11 AM EDT Temperature 36.8 ??C (98.2 ??F) 10/05/2015 10:11 AM E DT Respiratory Rate - - Oxygen Saturation 97% 10/05/2015 10:11 AM EDT Inhaled Oxygen Concentration - - Weight 90.5 kg (199 lb 9.6 oz) 10/05/2015 10:11 AM EDT Height - - Body Mass Index 31.26 09/25/2015 10:17 AM EDT documented in this encounter Ordered Prescriptions Prescription Sig Dispense Quantity Refills Last Filled Start Date End Date losartan-hydrochlo rothiazide (HYZAAR) 50-12.5 mg Oral TabletIndications: Encounter for medication refill Take 1 Tab by mouth daily. 30 Tab 2 10/05/2015 01/21/2016 dicyclomine (BENTYL) 10 mg Oral CapsuleIndications :Encounter for medication refill Take 2 Caps by mouth 4 times daily. 60 Cap 0 10/05/2015 10/12/2015 albuterol (VENTOLIN HFA) 90 mcg/actuation Inhl HFA Aerosol InhalerIndications :Encounter for medication refill USE 1 OR 2 PUFFS EVERY 4 HOURS NEEDED FOR WHEEZING. 1 Inhaler 5 10/05/2015 01/04/2016 fluticasone-salmet mary jo (ADVAIR) 500-50 mcg/dose Inhl Disk with DeviceIndications: Encounter for medication refill Inhale 1 Puff into the lungs 2 times daily. 1 Inhaler 2 10/05/2015 03/30/2016 aclidinium bromide (TUDORZA PRESSAIR) 400 mcg/actuation Inhl Aerosol Powdr Breath ActivatedIndicatio ns:Encounter for medication refill Inhale 400 mcg into the lungs every 12 hours. 1 Inhaler 1 10/05/2015 11/17/2015 documented in this encounter Progress Notes * Natan Paniagua MD - 10/05/2015 10:48 AM EDT Subjective: Patient ID: Zuhair Whitlock is a 49 y.o. male. Chief Complaint Patient presents with ??? Medication Refill patient recently moved into town and has an appt set up with a new PCP next week, patient would like some of his medications refilled HPI: This 49-year-old male presents for medication refill. Recently moved into town and has appointment with PCP next week. Has chronic asthma and does not want to run out of medications. Also has mild hypertension and irritable bowel syndrome. She states he is asymptomatic at the moment. Patients past medical, family and social histories were reviewed and updated. There were no changesexcept as noted. Review of Systems Constitutional: Negative for fever. Respiratory: Negative for chest tightness, shortness of breath and wheezing. Objective: Filed Vitals: 10/05/15 1011 BP: 138/80 Pulse: 81 Temp: 98.2 ??F (36.8 ??C) TempSrc: Oral Weight: 199 lb 9.6 oz (90.538 kg) SpO2: 97% Body mass index is 31.25 kg/(m^2). Physical Exam Constitutional: He appears well-developed and well-nourished. No distress. HENT: Head: Normocephalic. Pulmonary/Chest: Effort normal. Musculoskeletal: Normal range of motion. Neurological: He is alert. Skin: Skin is warm and dry. Psychiatric: He has a normal mood and affect. His behavior is normal. Nursing note and vitals reviewed. Assessment and Plan: Zuhair was seen today for medication refill. Diagnoses and all orders for this visit: Encounter for medication refill Orders: - aclidinium bromide (TUDORZA PRESSAIR) 400 mcg/actuation Inhl Aerosol Powdr Breath Activated; Inhale 400 mcg into the lungs every 12 hours. - fluticasone-salmeterol (ADVAIR) 500-50 mcg/dose Inhl Disk with Device; Inhale 1 Puff into the lungs 2 times daily. - albuterol (VENTOLIN HFA) 90 mcg/actuation Inhl HFA Aerosol Inhaler; USE 1 OR 2 PUFFS EVERY 4 HOURS NEEDED FOR WHEEZING. - dicyclomine (BENTYL) 10 mg Oral Capsule; Take 2 Caps by mouth 4 times daily. - losartan-hydrochlorothiazide (HYZAAR) 50-12.5 mg Oral Tablet; Take 1 Tab by mouth daily. Return if symptoms worsen or fail to improve. documented in this encounter Miscellaneous Notes * Patient Instructions - Natan Paniagua MD - 10/05/2015 10:29 AM EDT Keep appointment with new PCP documented in this encounter Plan of Treatment Upcoming Encounters Date Type Department Care Team (Late st Contact Info) Description 06/28/2024 9:40 AM EST Clinical Support [facility] [address] [place] [phone] 11/19/2024 1:40 PM EDT Office Visit [facility] [address] [place] [address] Lyndsay Brewer, DO [address] [place] [address] documented as of this encounter Visit Diagnoses Diagnosis HTN (hypertension), malignant- Primary Essential hypertension, malignant Encounter for medication refill Issue of repeat prescriptions Moderate persistent asthma without complication Unspecified asthma documented in this encounter Discontinued Medications Medication Sig Discontinue Reason Start Date End Da te ADVAIR DISKUS 250-50 mcg/dose Inhl Disk with Device Dose adjustment 08/05/2015 10/05/2015 albuterol (PROVENTIL) 2.5 mg /3 mL (0.083 %) Inhl Solution for Nebulization Take 3 mL by nebulization every 6 hours as needed for Wheezing. DELETE- Entered in Error 08/10/2015 10/05/2015 albuterol (PROVENTIL) 2.5 mg /3 mL (0.083 %) nebulizer solutionIndications:Br onchitis Take 3 mL by nebulization every 4 hours as needed for Wheezing. DELETE- Entered in Error 07/12/2012 10/05/2015 albuterol (PROVENTIL;VENTOLIN) 90 mcg/actuation inhalerIndications:Ast hma Inhale 1-2 Puffs into the lungs every 4 hours as needed for Wheezing. DELETE- Entered in Error 06/27/2012 10/05/2015 aclidinium bromide (TUDORZA PRESSAIR) 400 mcg/actuation Inhl Aerosol Powdr Breath Activated Inhale 400 mcg into the lungs every 12 hours. Reorder 10/05/2015 VENTOLIN HFA 90 mcg/actuation inhaler USE 1 OR 2 PUFFS EVERY 4 HOURS NEEDED FOR WHEEZING. Reorder 09/16/2012 10/05/2015 dicyclomine (BENTYL) 10 mg Oral Capsule Reorder 08/19/2015 10/05/2015 documented as of this encounter Historical Medications * This list may reflect changes made after this encounter. Medication Sig Dispense Quantity Refills Last Filled Start D ate End Date ADVAIR DISKUS 250-50 mcg/dose Inhl Disk with Device 08/05/2015 10/05/2015 dicyclomine (BENTYL) 10 mg Oral Capsule 08/19/20152015 added in this encounter Care Teams Telemarketer Supervisor Relationship Specialty Start Date End Date Renu Doll MD PCP - General Family Medicine 10/12/15 01/08/17 documented as of this encounter
--- OUTSIDE RECORDS SUMMARY | 2024-05-29 15:54 | XMS_ITS | Encounter Summary ---
Author Organization [place] [address] Care Team Providers Care Oven Press Tender Name Role Phone Unavailable Primary Care Provider Unavailabl e Reason for Visit * Reason Onset Date Comments Other 08/01/2011 Encounter Details Date Type Department Care Team (Late st Contact Info) Description 08/01/[address] [phone] Valdo Espitia MD [address] [phone] Other Social History Tobacco Use Types Packs/Day [...] Telephone Encounter - Valdo Espitia MD - 08/01/2011 10:15 AM EST Ok to do * Telephone Encounter - Lisa Colmenares MA - 08/01/2011 9:28 AM EST Also needs the script to include the tens unit for physical therapy * Telephone Encounter - Manuel Shi - 08/01/2011 9:23 AM EST Pt has artificial hip and leg and is having some stiffness and weakness. Pt was wondering if we canwrite an order for physical therapy twice weekly for 5-6 weeks Pt was wanting this at [facility] physical therapy -- can we fax order to them? Please call pt and let him know if we can do this documented in this encounter Plan of Treatment Upcoming Encounters Date Type Department Care Team (Late st Contact Info) Description 06/28/2024 9:40 AM EST Clinical Support [facility] [place] [address] [place] [phone] 11/19/2024 1:40 PM EDT Office Visit [facility] [address] [place] [address] Lyndsay Brewer DO [address] [place] [address] documented as of this encounter Visit Diagnoses Not on filedocumented in this encounter
--- OUTSIDE RECORDS SUMMARY | 2024-05-29 15:54 | XMS_ITS | Encounter Summary ---
Author Organization [place] [address] Care Team Providers Care Boiler Out Name Role Phone Unavailable Primary Care Provider Unavailabl e Reason for Visit * Reason Comments Rash Anxiety Advice Only Encounter Details Date Type Department Care Team (Late st Contact Info) Description 05/05/2011 10:30 AM EST Office Visit [address] [phone] Valdo Espitia MD [address] [phone] Dermatitis (Primary Dx); PASCUAL (generalized anxiety disorder); ED (erectile dysfunction) Social History Tobacco Use Types Packs/Day Years [...] Sign Reading Time Taken Comments Blood Pressure 158/100 05/05/2011 11:37 AM EST Pulse - - Temperature 36.8 ??C (98.3 ??F) 05/05/2011 11:[address] Respiratory Rate - - Oxygen Saturation - - Inhaled Oxygen Concentration - - Weight 92.5 kg (204 lb) 05/05/2011 11:37 AM EST Height 174.2 cm (5' 8.6 ) 05/05/2011 11:37 AM ES T Body Mass Index 30.48 05/05/2011 11:37 AM EST documented in this encounter Ordered Prescriptions Prescription Sig Dispense Quantity Refills Last Filled Start Date End Date Tadalafil (CIALIS) 20 mg TabIndications:ED (erectile dysfunction) Take 20 mg by mouth daily. 30 Tab 3 05/05/2011 1 hydrocortisone 2.5 % creamIndications:D ermatitis Apply topically 2 times daily for 30 days. 400 g 5 05/05/2011 1 Tadalafil (CIALIS) 20 mg TabIndications:ED (erectile dysfunction) Take 20 mg by mouth daily. 30 Tab 3 05/05/2011 1 diazepam (VALIUM) 10 mgIndications:PASCUAL (generalized anxiety disorder) Take 1 Tab by mouth every 12 hours as needed. 60 Tab 2 05/05/2011 6 hydrocortisone 2.5 % creamIndications:D ermatitis Apply topically 2 times daily for 30 days. 400 g 5 05/05/2011 1 documented in this encounter Progress Notes * Unknown, Unknown - 07/05/2011 12:00 AM EST * Unknown, Unknown - 06/24/2011 12:00 AM EST * Unknown, Unknown - 06/15/2011 12:00 AM EST * Raf Sanchez MA - 05/05/2011 12:17 PM ESTAddended by: RAF SANCHEZ on: 05/05/2011 12:17 PM Modules accepted: Orders, Medications * Valdo Espitia MD - 05/05/2011 11:37 AM EST Subjective: Patient ID: Zuhair Whitlock is a 45 y.o. male. HPI Pt here today to follow up and discuss treatment for rash// pt says he has come up with a med that works Pt here to follow up on anxiety // pt would like to discuss his meds that he has been getting from different Dr. That pt can not afford to go to right now (Dr. Alvarenga) Pt also has some personal male issues he would like to discuss Multiple Chronic Patient presents today for follow up for anxiety, asthma, depression, hypertension, osteoarthritis,hip pain and eczema Recent labs as noted in chart. Stable, with no med side effects. Med's were reviewed. Patient's medications, allergies, past medical, surgical, social and family histories were reviewedand updated as appropriate. Review of Systems Constitutional: Negative. HENT: Negative. Eyes: Negative. Respiratory: Negative. Cardiovascular: Negative. Gastrointestinal: Negative. Psychiatric/Behavioral: Negative. All other systems reviewed and are negative. Objective: Filed Vitals: 05/05/11 1137 BP: 158/100 Temp: 98.3 ??F (36.8 ??C) Height: 5' 8.6 (1.742 m) Weight: 204 lb (92.534 kg) Body mass index is 30.48 kg/(m^2). Physical Exam Nursing note and vitals reviewed. Constitutional: He is oriented to person, place, and time. He appears well- developed and well-nourished. HENT: Head: Normocephalic. Eyes: Conjunctivae and EOM are normal. Cardiovascular: Normal rate, regular rhythm and normal heart sounds. Pulmonary/Chest: Effort normal and breath sounds normal. No respiratory distress. He has no wheezes. He has no rales. Neurological: He is alert and oriented to person, place, and time. Psychiatric: He has a normal mood and affect. His behavior is normal. Assessment and Plan: Zuhair was seen today for rash, anxiety and advice only. Diagnoses and associated orders for this visit: Dermatitis - hydrocortisone 2.5 % cream; Apply topically 2 times daily for 30 days. Pascual (generalized anxiety disorder) - diazepam (VALIUM) 10 mg; Take 1 Tab by mouth every 12 hours as needed. Ed (erectile dysfunction) - Tadalafil (CIALIS) 20 mg Tab; Take 20 mg by mouth daily. documented in this encounter Consult Notes * Unknown, Unknown - 11/07/2011 12:00 AM EDT documented in this encounter Plan of Treatment Upcoming Encounters Date Type Department Care Team (Late st Contact Info) Description 06/28/2024 9:40 AM EST Clinical Support [facility] [address] [place] [phone] 11/19/2024 1:40 PM EDT Office Visit [facility] [address] [place] [address] Lyndsay Brewer, [address] [facility] [address] [place] [address] documented as of this encounter Visit Diagnoses Diagnosis Dermatitis- Primary Contact dermatitis and other eczema, due to unspecified cause PASCUAL (generalized anxiety disorder) Generalized anxiety disorder ED (erectile dysfunction) Impotence of organic origin documented in this encounter Discontinued Medications Medication Sig Discontinue Reason Start Date End Da te diazepam (VALIUM) 10 mg Take 1 Tab by mouth every 6 hours as needed. Reorder 03/15/2011 05/05/2011 hydrocortisone 2.5 % creamIndications:Dermat itis Apply topically 2 times daily for 30 days. Reorder 05/05/2011 05/05/2011 Tadalafil (CIALIS) 20 mg TabIndications:ED (erectile dysfunction) Take 20 mg by mouth daily. Reorder 05/05/2011 05/05/2011 documented as of this encounter
--- OUTSIDE RECORDS SUMMARY | 2024-05-29 15:54 | XMS_ITS | Encounter Summary ---
Author Organization [place] [address] Care Team Providers Care Business Continuity Consultant Name Role Phone Renu Doll MD Primary Care Provider Collin rudd Reason for Visit * Reason Comments Establish Care annual Otalgia x 6 months Encounter Details Date Type Department Care Team (Latest Contact Info) Description 10/12/2015 3:00 PM EDT Office Visit [facility] [place] [address] [place] [address] Renu Doll MD HTN (hypertension), malignant (Primary Dx); EPHRAIM (generalized anxiety disorder); Bipolar disorder in remission (HCC); Encounter for medication refill; Osteoarthritis of multiple joints, unspecified osteoarthritis type; Cerumen impaction, left Social History Tobacco Use Types Packs/Day [...] Reading Time Taken Comments Blood Pressure 130/88 10/12/2015 2:57 PM EDT Pulse - - Temperature 36.9 ??C (98.4 ??F) 10/12/2015 2:57 PM ED T Respiratory Rate - - Oxygen Saturation - - Inhaled Oxygen Concentration - - Weight 87.1 kg (192 lb) 10/12/2015 2:57 PM EDT Height 170.2 cm (5' 7 ) 10/12/2015 2:57 PM EDT Body Mass Index 30.07 10/12/2015 2:57 PM EDT documented in this encounter Ordered Prescriptions Prescription Sig Dispense Quantity Refills Last Filled Start Date End Date carbamide peroxide (DEBROX) 6.5 % Otic DropsIndications:C erumen impaction, left Place 5 Drops in ear(s) 2 times daily. Administer drops in both ears. 30 mL 0 10/12/2015 6 dicyclomine (BENTYL) 10 mg Oral CapsuleIndications :Encounter for medication refill Take 2 Caps by mouth 4 times daily for 30 days. 240 Cap 0 10/12/2015 6 documented in this encounter Progress Notes * Renu Doll MD - 10/12/2015 3:04 PM EDT Subjective Mr. Whitlock is a 49 y.o. male here for an annual wellness physical exam. Patient is coming in today to be established, he knows he has not been taking his blood pressure medication the last few weeks like he should and is only taking some of his COPD medications, but saysthat has improved some. He is having ear discomfort, he believes it is from wax build up or that's what urgent care told him. Had colonoscopy. Father from colon CA. Pts. C-scope normal. Was advised probiotics. Patient Active Problem List Diagnosis ??? Hip pain, left ??? HTN (hypertension), malignant ??? Eczema ??? OA (osteoarthritis) ??? Asthma ??? EPHRAIM (generalized anxiety disorder) ??? Bipolar disorder in remission (HCC) Past Medical History Diagnosis Date ??? Arthritis ??? Asthma 06/02/2010 ??? EPHRAIM (generalized anxiety disorder) ??? Bipolar affective (HCC) ??? Pneumothorax ??? Heart attack (HCC) ??? Hypertension ??? Arrhythmia ??? Pneumonia ??? Blood transfusion ??? Heroin abuse Remission 3 years. ??? Opiate dependence (HCC) Remission x 5 years ??? IBS (irritable bowel syndrome) Past Surgical History Procedure Laterality Date ??? Joint replacement left hip ??? Eye surgery ??? Hernia repair ??? Knee surgery both ??? Elbow surgery ??? Fracture surgery left leg ??? Total hip arthroplasty Allergies Allergen Reactions ??? Abilify [Aripiprazole] Other [...] by mouth daily. 30 Tab 2 ??? tadalafil (CIALIS) 5 mg tablet Take 1 Tab by mouth as needed for Erectile Dysfunction. 30 Tab 0 ??? aclidinium bromide (TUDORZA PRESSAIR) 400 mcg/actuation Inhl Aerosol Powdr Breath Activated Inhale 400 mcg into the lungs every 12 hours. 1 Inhaler 1 ??? Hydrocortisone Acetate 1 % Oint Apply 1 Applicator topically 2 times daily. 100 g 5 ??? Nebulizer Accessories (ALL FLOW 4000 KIT) Misc Formulary equivalent 1 Each 0 ??? Nebulizers (SANG BABY NEBULIZER) Misc Formulary equivalent 1 Each 0 No current facility-administered medications on file [...] Not on file Other Topics Concern ??? None Social History Narrative Family History Problem Relation Age of Onset ??? Diabetes Mother ??? Heart Disease Mother ??? High Blood Pressure Mother ??? High Cholesterol Mother ??? Cancer Father Immunization History Administered Date(s) Administered ??? Influenza Patient Reported 04/21/2010 ??? PPD Test 12/20/2010 ??? Pneumococcal Polysaccharide 23 Valent 04/21/2010 Health Maintenance Topic Date Due ??? Annual Wellness Exam 10/11/2016 ??? Pneumococcal Vaccine (Medium Risk) (2) 11/10/2032 ??? Influenza Vaccine Completed There are no preventive care reminders to display for this patient. Patient Care Team: Renu Doll MD as PCP - General (Family Medicine) Review of Systems Constitutional: Negative for fever and chills. HENT: Positive for ear pain. Negative for drooling, facial swelling, hearing loss and postnasal drip. Respiratory: Negative for cough and shortness of breath. Genitourinary: Negative for discharge and penile swelling. Neurological: Negative for numbness. Objective BP 130/88 mmHg Temp(Src) 98.4 ??F (36.9 ??C) (Oral) Ht 5' 7 (1.702 m) Wt 192 lb (87.091 kg) BMI 30.06 kg/m2 Physical Exam Constitutional: He appears well-developed and well-nourished. Cardiovascular: Normal rate, regular rhythm and normal heart sounds. Skin: He is not diaphoretic. Nursing note and vitals reviewed. Lab Results Component Value Date WBC 17.4* 12/22/2010 HGB 12.8* 12/22/2010 HCT 38.0* 12/22/2010 PLT 428* 12/22/2010 NA 140 12/22/2010 K 4.1 12/23/2010 CL 97* 12/22/2010 CREATININE 1.1 12/22/2010 BUN 19 12/22/2010 CO2 28 12/22/2010 GLU 193* 12/23/2010 Assessment and Plan Zuhair was seen today for establish care and otalgia. Diagnoses and all orders for this visit: HTN (hypertension), malignant Orders: - Lipid Panel Reflex - Clinic Collect; Future - Thyroid Stimulating Hormone - Clinic Collect; Future - Comprehensive Metabolic Panel - Clinic Collect; Future EPHRAIM (generalized anxiety disorder) Bipolar disorder in remission (HCC) Encounter for medication refill Orders: - dicyclomine (BENTYL) 10 mg Oral Capsule; Take 2 Caps by mouth 4 times daily for 30 days. Osteoarthritis of multiple joints, unspecified osteoarthritis type Cerumen impaction, left Orders: - carbamide peroxide (DEBROX) 6.5 % Otic Drops; Place 5 Drops in ear(s) 2 times daily. Administer drops in both ears. No Follow-up on file. Educated patient regarding [...] AM EST Clinical Support [facility] [place] [address] [place] [address] 11/19/2024 1:40 PM EDT Office Visit [facility] [address] [place] [address] Lyndsay Brewer DO [address] [facility] [address] [place] [address] documented as of this encounter Results * COMPREHENSIVE METABOLIC PANEL (10/14/2015 8:38 AM EDT) Sodium 143 136 - 145 mmol/L [facility] Potassium 4.8 3.5 - 5.0 mmol/L [facility] Chloride 106 98 - 107 mmol/L [facility] Total CO2 25 22 - 29 mmol/L [facility] Anion Gap 12 7 - 16 mmol/L [facility] Calcium 9.7 8.6 - 10.2 mg/dL [facility] Glucose Lvl 93 74 - 100 mg/dL [facility] BUN 15 6 - 20 mg/dL [facility] Creatinine 1.08 0.67 - 1.30 mg/dL [facility] Albumin 4.3 3.5 - 5.2 gm/dL [facility] Total Protein 7.1 6.4 - 8.3 gm/dL [facility] Bili Total 0.3 0.1 - 1.4 mg/dL [facility] AST 20 <=40 IU/L [facility] ALT 18 <=41 IU/L [facility] Alk Phos 80 40 - 129 IU/L [facility] GFR Afr Am >60 [facility] GFR Non Afr Am >60 [facility] Blood specimen (specimen) UPPER LIMB STRUCTURE / Unknown 10/14/2015 8:38 AM EDT 10/14/2015 5:36 PM EDT Renu Doll MD CHEMISTRY ORDERABLES Edited R esult - Final Performing Organization Address [facility] [place] [address] * THYROID STIMULATING HORMONE (10/14/2015 8:38 AM EDT) TSH 2.140 0.270 - 4.200 mcIU/mL [facility] Blood specimen (specimen) UPPER LIMB STRUCTURE / Unknown 10/14/2015 8:38 AM EDT 10/14/2015 5:36 PM EDT Renu Doll MD CHEMISTRY ORDERABLES Final Re sult Performing Organization Address [facility] [place] [address] * (ABNORMAL) LIPID PANEL REFLEX (10/14/2015 8:38 AM EDT) Cholesterol 154 <=200 mg/dL [facility] Comment: < 200 ?Desirable 200 - 239 ? Borderline High >= 240 ?High Triglyceride 85 <=150 mg/dL [facility] Comment: < 150 ? Normal 150 - 199 ?Borderline High 200 - 499 ?High ??>= 500 ? Very High HDL 32(L) >=40 mg/dL [facility] Comment: ?? > 60 ?Optimal 40 - 60 ?Acceptable ?? < 40 ?Low Blood specimen (specimen) UPPER LIMB STRUCTURE / Unknown 10/14/2015 8:38 AM EDT 10/14/2015 5:36 PM EDT us Renu Doll MD CHEMISTRY ORDERABLES Final Re sult [facility] [address] [place] [address] documented in this encounter Visit Diagnoses Diagnosis HTN (hypertension), malignant- Primary Essential hypertension, malignant EPHRAIM (generalized anxiety disorder) Generalized anxiety disorder Bipolar disorder in remission (HCC) Bipolar disorder, unspecified Encounter for medication refill Issue of repeat prescriptions Osteoarthritis of multiple joints, unspecified osteoarthritis type Cerumen impaction, left documented in this encounter Discontinued Medications Medication Sig Discontinue Reason Start Date End Da te azithromycin (ZITHROMAX) 250 mg Oral Tablet Take two now, then one every 24 hours until gone DELETE-Therapy completed 09/25/2015 10/12/2015 diazepam (VALIUM) 10 mgIndications:EPHRAIM (generalized anxiety disorder) Take 1 Tab by mouth every 12 hours as needed. DELETE-Therapy completed 05/05/2011 10/12/2015 fluticasone-salmeterol (ADVAIR) 100-50 mcg/dose Inhl Disk with Device Inhale into the lungs 2 times daily. Dose adjustment 10/12/2015 gabapentin (NEURONTIN) 600 mg tablet TAKE 1 TABLET BY MOUTH THREE TIMES DAILY . DELETE-Therapy completed 04/13/2012 10/12/2015 naproxen (NAPROSYN) 500 mg Oral Tablet Take 500 mg by mouth 2 times daily. Patient discharge 10/12/2015 oxyCODONE (OXY-IR) 15 mg immediate release tabletIndications:Hip pain, left Take 1 Tab by mouth 4 times daily. DELETE-Therapy completed 01/16/2012 10/12/2015 dicyclomine (BENTYL) 10 mg Oral CapsuleIndications:Enc ounter for medication refill Take 2 Caps by mouth 4 times daily. Reorder 10/05/2015 10/12/2015 documented as of this encounter Care Teams Business Continuity Consultant Relationship Specialty Start Date End Date Renu Doll MD PCP - General Family Medicine 10/12/15 01/08/17 documented as of this encounter
--- OUTSIDE RECORDS SUMMARY | 2024-05-29 15:54 | XMS_ITS | Encounter Summary ---
Author Organization [place] [address] Care Team Providers Care Ward Attendant Name Role Phone Unavailable Primary Care Provider Unavailabl e Reason for Visit * Reason Onset Date Comments Medication Change 06/29/2012 Encounter Details Date Type Department Care Team (Late Contact Info) Description 06/29/2012 Telephone [facility] [address] [place] [address] Valdo Espitia MD [address] [id number] Medication Change Social History Tobacco Use Types [...] * Telephone Encounter - Manuel Shi - 06/29/2012 9:39 AM EST Nebulizer solution is not covered -- can we please change? documented in this encounter Plan of Treatment Upcoming Encounters Date Type Department Care Team (Late st Contact Info) Description 06/28/2024 9:40 AM EST Clinical Support [facility] [place] [address] [place] [address] 11/19/2024 1:40 PM EDT Office Visit [facility] [address] [place] [address] Lyndsay Brewer DO [address] [place] [address] documented as of this encounter Visit Diagnoses Not on filedocumented in this encounter
--- OUTSIDE RECORDS SUMMARY | 2024-05-29 15:54 | XMS_ITS | Encounter Summary ---
Author Organization [place] [address] Care Team Providers Care Solid Waste Facility Supervisor Name Role Phone Unavailable Primary Care Provider Unavailabl e Encounter Details Date Type Department Care Team (Late st Contact Info) Description 04/19/2013 Abstract [facility]P [facility] [address] [place] [address] Valdo Espitia MD [address] [address] Social History Tobacco Use Types Packs/Day Years [...] EST Clinical Support [facility] [address] [place] [address] 11/19/2024 1:40 PM EDT Office Visit [facility] [address] [place] [address] Lyndsay Brewer DO [address] [facility] [address] [place] [address] documented as of this encounter Visit Diagnoses Not on filedocumented in this encounter
--- OUTSIDE RECORDS SUMMARY | 2024-05-29 15:54 | XMS_ITS | Encounter Summary ---
Author Organization [place] [address] Care Team Providers Care Ball Holder Name Role Phone Unavailable Primary Care Provider Unavailabl e Reason for Referral * Consultation (Routine) - Closed Specialty Diagnoses / Procedures Referred By Gus kunz Referred To Contact Pain Medicine-Pain Medicine / Pain Management Diagnoses Hip pain, left Valdo Espitia MD Phone: tel: Referral ID Status Reason Start Date Expiration Date Visits Re quested Visits Authorized [id number] Closed 01/16/2012 07/14/2012 1 1 Reason for Visit * Reason Comments Back Pain Arthritis Hip Pain Encounter Details Date Type Department Care Team (Late st Contact Info) Description 01/16/2012 8:15 AM EDT Office Visit [facility] [address] [place] [address] Valdo Espitia MD [address] [address] HTN (hypertension), malignant; Hip pain, left; OA (osteoarthritis) Social History Tobacco Use Types Packs/Day Years [...] Sign Reading Time Taken Comments Blood Pressure 118/80 01/16/2012 8:16 AM EDT Pulse - - Temperature 36.3 ??C (97.4 ??F) 01/16/2012 8:16 AM ED T Respiratory Rate - - Oxygen Saturation - - Inhaled Oxygen Concentration - - Weight 95.3 kg (210 lb) 01/16/2012 8:16 AM EDT Height 172.7 cm (5' 8 ) 01/16/2012 8:16 AM EDT Body Mass Index 31.93 01/16/2012 8:16 AM EDT documented in this encounter Ordered Prescriptions Prescription Sig Dispense Quantity Refills Last Filled Start Date End Date predniSONE (DELTASONE) 20 mg tabletIndications:O A (osteoarthritis) Take 3 pills daily for the first 3 days, 2 pills daily for the next 3 days, 1 pill daily for the last 3 days 18 Tab 0 01/16/2012 06/27/2012 oxyCODONE (OXY-IR) 15 mg immediate release tabletIndications:H ip pain, left Take 1 Tab by mouth 4 times daily. 15 Tab 0 01/16/2012 10/12/2015 documented in this encounter Progress Notes * Unknown, Unknown - 01/16/2012 9:17 AM EDT * Valdo Espitia MD - 01/16/2012 8:12 AM EDT Subjective: Patient ID: Zuhair Whitlock is a 46 y.o. male. HPI Pt is here to follow up on last visit. Pt states that he went to his appointment with pain specialist and the pain specialist states that he reccomended that pt see a different pain specialist BACK PAIN Pain is aching and sharp. Severity severe. Worse with movement and better with rest. radiating to hip. Meds some help. Myalgia too ARTHRITIS Joints swelling and tenderness comes and goes. Bad weather makes pain worse. severe No signs or symptoms of medication problems. Pain is located on the left hip. Pain is sharp. Severity severe. Worse with movement and better with rest. nonradiating. Multiple Chronic Patient presents today for follow up for anxiety, asthma, hypertension, osteoarthritis, eczema, hippain. Recent labs as noted in chart. Stable, with no med side effects. Med's were reviewed. Patients past medical, family and social histories were reviewed and updated. There were no changesexcept as noted. Review of Systems Constitutional: Negative. HENT: Negative. Eyes: Negative. Respiratory: Negative. Cardiovascular: Negative. Gastrointestinal: Negative. Genitourinary: Negative. Musculoskeletal: Negative. Skin: Negative. Neurological: Negative. Hematological: Negative. Psychiatric/Behavioral: Negative. Objective: Filed Vitals: 01/16/12 0816 BP: 118/80 Temp: 97.4 ??F (36.3 ??C) TempSrc: Tympanic Height: 5' 8 (1.727 m) Weight: 210 lb (95.255 kg) Body mass index is 31.93 kg/(m^2). Physical Exam Nursing note and vitals [...] mood and affect. His behavior is normal. hip pain Assessment and Plan: Zuhair was seen today for back pain, arthritis and hip pain. Diagnoses and associated orders for this visit: Htn (hypertension), malignant Hip pain, left - oxyCODONE (OXY-IR) 15 mg immediate release tablet; Take 1 Tab by mouth 4 times daily. - Pain Clinic Oa (osteoarthritis) - predniSONE (DELTASONE) 20 mg tablet; Take 3 pills daily for the first 3 days, 2 pills daily for the next 3 days, 1 pill daily for the last 3 days alfa bp good do home monitering documented in this encounter Consult Notes * Unknown, Unknown - 01/17/2012 12:00 AM EDT documented in this encounter Plan of Treatment Upcoming Encounters Date Type Department Care Team (Late st Contact Info) Description 06/28/2024 9:40 AM EST Clinical Support [facility] [address] [place] [phone] 11/19/2024 1:40 PM EDT Office Visit [facility] Neurology [facility] [address] [place] [phone] Lyndsay Brewer, [address] [place] [address] Scheduled Referrals Name Type Priority Associated Diagnoses Orde r Schedule AMB REFERRAL TO PAIN CLINIC Outpatient Referral Routine Hip pain, left Ordered: 01/16/2012 documented as of this encounter Visit Diagnoses Diagnosis HTN (hypertension), malignant Essential hypertension, malignant Hip pain, left Pain in joint, pelvic region and thigh OA (osteoarthritis) Osteoarthrosis, unspecified whether generalized or localized, unspecified site documented in this encounter Discontinued Medications Medication Sig Discontinue Reason Start Date End Da te malathion (OVIDE) 0.5 % Apply topically See Admin Instructions for 30 days. See admin instructions. 01/02/2012 01/16/2012 Oxycodone (OXYCONTIN) 30 mg Tb12 Take 30 mg by mouth every 12 hours. Reorder 01/16/2012 oxycodone (OXY-IR) 15 mg immediate release tablet Take 15 mg by mouth 4 times daily. Reorder 01/16/2012 documented as of this encounter
--- OUTSIDE RECORDS SUMMARY | 2024-05-29 15:54 | XMS_ITS | Encounter Summary ---
Author Organization [place] [address] Care Team Providers Care Court Of Appeals Judge Name Role Phone Renu Doll MD Primary Care Provider Collin rudd Reason for Visit * Reason Onset Date Comments Medication Problem 11/17/2015 Encounter Details Date Type Department Care Team (Late st Contact Info) Description 11/17/2015 Telephone [facility] [address] [email or web address] [address] Renu Doll MD Medication Problem [...] Refills Last Filled Start Date End Date ipratropium (ATROVENT HFA) 17 mcg/actuation Inhl HFA Aerosol Inhaler Inhale 2 Puffs into the lungs every 6 hours. 12.9 g 3 11/17/2015 02/02/2016 documented in this encounter Miscellaneous Notes * Telephone Encounter - Maddy White RMA - 11/17/2015 5:54 PM EDT Atrovent sent to the pharmacy. * Telephone Encounter - Renu Doll MD - 11/17/2015 5:13 PM EDT Ok to switch to Atravent HSA * Telephone Encounter - Toby Pelaezjose carlos Downs - 11/17/2015 2:21 PM EDT Pharmacy calling.aclidinium bromide (TUDORZA PRESSAIR) 400 mcg/actuation Inhl Aerosol Powdr Breath Activated Is not covered. Atravent HSA or Incruse Ellipta, would you consider one of these? documented in this encounter Plan of Treatment Upcoming Encounters Date Type Department Care Team (Late st Contact Info) Description 06/28/2024 9:40 AM EST Clinical Support [facility] [address] [place] [address] 11/19/2024 1:40 PM EDT Office Visit [facility] Neurology [facility] [address] [place] [address] Lyndsay Brewer DO [address] [place] [address] documented as of this encounter Visit Diagnoses Not on filedocumented in this encounter Discontinued Medications Medication Sig Discontinue Reason Start Date End Da te aclidinium bromide (TUDORZA PRESSAIR) 400 mcg/actuation Inhl Aerosol Powdr Breath ActivatedIndications:Enc ounter for medication refill Inhale 400 mcg into the lungs every 12 hours. Alternate therapy 10/05/2015 11/17/2015 documented as of this encounter Care Teams Court Of Appeals Judge Relationship Specialty Start Date End Date Renu Doll MD PCP - General Family Medicine 10/12/15 01/08/17 documented as of this encounter
--- OUTSIDE RECORDS SUMMARY | 2024-05-29 15:54 | XMS_ITS | Encounter Summary ---
Author Organization [place] [address] Care Team Providers Care Hauling Contractor Name Role Phone Renu Doll MD Primary Care Provider Collin rudd Reason for Visit * Reason Comments Labs Only Encounter Details Date Type Department Care Team (Late st Contact Info) Description 10/14/2015 8:30 AM EDT Clinical Support [facility] [address] [place] [phone] Marcy Hanna RPT HTN (hypertension), malignant (Primary Dx) Social History Tobacco Use Types [...] as of this encounter Progress Notes * Marcy Hanna RPT - 10/14/2015 8:18 AM EDT Venipuncture in right arm with 22 gauge needle, length 1 1/2 inch. Patient tolerated well. documented in this encounter Plan of Treatment Upcoming Encounters Date Type Department Care Team (Late st Contact Info) Description 06/28/2024 9:40 AM EST Clinical Support [facility] [address] [place] [phone] 11/19/2024 1:40 PM EDT Office Visit [facility] Neu[facility] [address] [place] [address] Lyndsay Brewer DO [address] [place] [address] Scheduled Orders Name Type Priority Associated Diagnoses Orde r Schedule CO HANDLG&/OR CONVEY OF SPEC FOR TR OFFICE TO LAB CO Charge Routine HTN (hypertension), malignant Ordered: 10/14/2015 documented as of this encounter Visit Diagnoses Diagnosis HTN (hypertension), malignant- Primary Essential hypertension, malignant documented in this encounter Orders Charge Count Last Ordered Date First Orde red Date CO COLLECTION VENOUS BLOOD,VENIPUNCTURE 1 0 10/14/2015 documented in this encounter Care Teams Hauling Contractor Relationship Specialty Start Date End Date Renu Doll MD PCP - General Family Medicine 10/12/15 01/08/17 documented as of this encounter
--- OUTSIDE RECORDS SUMMARY | 2024-05-29 15:54 | XMS_ITS | Encounter Summary ---
Author Organization [place] [address] Care Team Providers Care Adjuster And Inspector Name Role Phone Unavailable Primary Care Provider Unavailabl e Reason for Visit * Reason Comments Breathing Problem Wheezing Encounter Details Date Type Department Care Team (Late st Contact Info) Description 06/27/2012 8:45 AM EST Office Visit [address] [address] Carola Arcos MD [address] [place] [address] OA (osteoarthritis) (Primary Dx); Bronchitis; Asthma Social History Tobacco Use Types Packs/Day Years [...] Sign Reading Time Taken Comments Blood Pressure 138/94 06/27/2012 8:55 AM EST Pulse - - Temperature 36.7 ??C (98.1 ??F) 06/27/2012 8:55 AM ES T Respiratory Rate - - Oxygen Saturation - - Inhaled Oxygen Concentration - - Weight 100.2 kg (221 lb) 06/27/2012 8:55 AM EST Height 165.1 cm (5' 5 ) 06/27/2012 8:55 AM EST Body Mass Index 36.78 06/27/2012 8:55 AM EST documented in this encounter Ordered Prescriptions Prescription Sig Dispense Quantity Refills Last Filled Start Date End Date Nebulizer Accessories (ALL FLOW 4000 KIT) [facility] [place] 1 Each 0 06/27/2012 albuterol (PROVENTIL;VENTOL IN) 90 mcg/actuation inhalerIndication s:Asthma Inhale 1-2 Puffs into the lungs every 4 hours as needed for Wheezing. 17 g 5 06/27/2012 6 albuterol (PROVENTIL) 2.5 mg /3 mL (0.083 %) nebulizer solutionIndicatio ns:Bronchitis Take 3 mL by nebulization every 4 hours as needed for Wheezing. 180 mL 1 06/27/2012 3 Nebulizers (SANG BABY NEBULIZER) [facility] [place] [place] 1 Each 0 06/27/2012 1 moxifloxacin (AVELOX) 400 mg tabletIndications :Bronchitis Take 1 Tab by mouth daily for 7 days. 7 Tab 0 06/27/2012 3 promethazine (PHENERGAN) 6.25 mg/5 mL syrupIndications: Bronchitis Take 5 mL by mouth 4 times daily as needed for Nausea for 90 days. 60 mL 1 06/27/2012 3 predniSONE (DELTASONE) 20 mg tabletIndications :Bronchitis Take 3 pills daily for the first 3 days, 2 pills daily for the next 3 days, 1 pill daily for the last 3 days 18 Tab 0 06/27/2012 3 albuterol (PROVENTIL) 2.5 mg /3 mL (0.083 %) nebulizer solutionIndicatio ns:Bronchitis Take 3 mL by nebulization every 4 hours as needed for Wheezing. 180 mL 1 06/27/2012 3 documented in this encounter Progress Notes * Unknown, Unknown - 07/18/2012 12:00 AM EST * Unknown, Unknown - 07/11/2012 12:00 AM EST * Unknown, Unknown - 07/09/2012 12:00 AM EST * Unknown, Unknown - 06/29/2012 12:00 AM EST * Carola Arcos MD - 06/27/2012 8:53 AM EST Subjective: Patient ID: Zuhair Whitlock is a 46 y.o. male. HPI BREATHING PROBLEMS Pt is here today bc he has been having trouble breathing for the past few weeks. He is coughing and congested. Productive WHEEZING Pt is very wheezy over the last few weeks. Multiple Chronic Patient presents today for follow up for Patient Active Problem List Diagnoses ??? Hip pain, left ??? HTN (hypertension), malignant ??? Eczema ??? OA (osteoarthritis) ??? Asthma ??? EPHRAIM (generalized anxiety disorder) Recent labs as noted in chart. Stable, with no med side effects. Med's were reviewed. Patients past medical, family and social histories were reviewed and updated. There were no changesexcept as noted. Review of Systems Constitutional: Negative for fever, chills, activity change and fatigue. HENT: Positive for congestion, rhinorrhea, sneezing and sinus pressure. Negative for ear pain, sorethroat and neck pain. Eyes: Negative. Respiratory: Positive for wheezing. Negative for chest tightness and shortness of breath. Cardiovascular: Negative. Negative for chest pain and palpitations. Gastrointestinal: Negative for nausea, vomiting, abdominal pain and diarrhea. Musculoskeletal: Negative for back pain and joint swelling. Skin: Negative for rash and wound. Neurological: Negative. Hematological: Negative. Psychiatric/Behavioral: Negative for behavioral problems, disturbed wake/sleep cycle and decreased concentration. The patient is not nervous/anxious and is not hyperactive. All other systems reviewed and are negative. Objective: Filed Vitals: 06/27/12 0855 BP: 138/94 Temp: 98.1 ??F (36.7 ??C) TempSrc: Tympanic Height: 5' 5 (1.651 m) Weight: 221 lb (100.245 kg) Body mass index is 36.78 kg/(m^2). Physical Exam Nursing note and vitals reviewed. Constitutional: He is oriented to person, place, and time. He appears well- developed and well-nourished. No distress. HENT: Head: Normocephalic and atraumatic. Right Ear: External ear normal. Left Ear: External ear normal. Mouth/Throat: Oropharynx is clear and moist. ttp bilateral maxillary sinus. Cobblestoning of oropharynx Eyes: Conjunctivae and EOM are normal. Pupils are equal, round, and reactive to light. Neck: Normal range of motion. Neck supple. Cardiovascular: Normal rate, regular rhythm and normal heart sounds. No murmur heard. Pulmonary/Chest: Effort normal. No respiratory distress. He has wheezes. Abdominal: Soft. Bowel sounds are normal. He exhibits no distension. There is no tenderness. There is no rebound and no guarding. Musculoskeletal: Normal range of motion. He exhibits no edema. Lymphadenopathy: He has no cervical adenopathy. Neurological: He is alert and oriented to person, place, and time. No cranial nerve deficit. Skin: Skin is warm. No rash noted. Psychiatric: He has a normal mood and affect. His behavior is normal. Judgment and thought content normal. Assessment and Plan: Zuhair was seen today for breathing problem and wheezing. Diagnoses and associated orders for this visit: Oa (osteoarthritis) Bronchitis - Discontinue: albuterol (PROVENTIL) 2.5 mg /3 mL (0.083 %) nebulizer solution; Take 3 mL by nebulization every 4 hours as needed for Wheezing. - predniSONE (DELTASONE) 20 mg tablet; Take 3 pills daily for the first 3 days, 2 pills daily for the next 3 days, 1 pill daily for the last 3 days - X-ray chest PA and lateral; Future - promethazine (PHENERGAN) 6.25 mg/5 mL syrup; Take 5 mL by mouth 4 times daily as needed for Nausea for 90 days. - methylPREDNISolone acetate (DEPO-MEDROL) injection 80 mg; Inject 1 mL into the muscle once. - cefTRIAXone (ROCEPHIN) injection 1 g; Inject 1 g into the muscle Daily. - moxifloxacin (AVELOX) 400 mg tablet; Take 1 Tab by mouth daily for 7 days. - albuterol (PROVENTIL) 2.5 mg /3 mL (0.083 %) nebulizer solution; Take 3 mL by nebulization every 4 hours as needed for Wheezing. Asthma - albuterol (PROVENTIL;VENTOLIN) 90 mcg/actuation inhaler; Inhale 1-2 Puffs into the lungs every 4 hours as needed for Wheezing. Other Orders - Nebulizer Accessories (ALL FLOW 4000 KIT) Misc; Formulary equivalent - Nebulizers (SANG BABY NEBULIZER) Misc; Formulary equivalent he left the er because he states the wait was too long. Discussed at length. Given his previous ct I recommend he see a production line welder he declines. He had neg tb test and afb cultures in hosp per records. If resp distress to er but he refuses. Monitor. He is agreeable to the cxr. If abnormal will insist on production line welder. documented in this encounter Miscellaneous Notes * Patient Instructions - Nancy Fuentes, [facility] - 06/27/2012 8:53 AM EST Thank you for enrolling in [facility]. Please follow the instructions below to securely access your online medical record. [facility] allows you to send messages to your doctor, view your test results, renew your prescriptions, request appointments and more. How Do I Sign Up? 1. In your Internet browser, navigate to [email or web address] or [email or web address] and click on the [facility] link. 2. Click on the Sign Up Now link in the Sign In box. You will see the New Member Sign Up page. 3. Enter your [facility] Access Code exactly as it appears below. You will not need to use this code after you???ve completed the sign-up process. This activation code will 60 days after the dateat the top of this page at which time you must request a new code from your doctors office. [facility] Access Code: [email or web address] Expires: 08/26/2012 8:53 AM 4. Enter your Social Security Number ([id number]) and Date of (mm/dd/yyyy) as indicated and click Submit. You will be taken to the next sign- up page. 5. Create a [facility] ID. This will be your [facility] login ID and cannot be changed, so think of one that is secure and easy to remember. 6. Create a [facility] password. You can change your password at any time. 7. Enter your Password Reset Question and Answer. This can be used at a later time if you forget your password. 8. Enter your e-mail address. You will receive e-mail notification when new information is available in [facility]. 9. Click Sign Up. You can now view your medical record. Additional Information Additional Information If you have questions, call your doctors office to talk to a [facility] staff member. Remember, [facility] is NOT to be used for urgent needs. For medical emergencies, dial 911. documented in this encounter Plan of Treatment Upcoming Encounters Date Type Department Care Team (Late st Contact Info) Description 06/28/2024 9:40 AM EST Clinical Support [facility] [address] [email or web address] [address] 11/19/2024 1:40 PM EDT Office Visit [facility] Neurology [facility] [address] [place] [address] Lyndsay Brewer DO [address] [facility] [address] [place] [address] Scheduled Orders Name Type Priority Associated Diagnoses Orde r Schedule XR CHEST PA AND LATERAL Imaging Routine Bronchitis 1 Occurrences starting 06/27/2012 until 06/27/2013 documented as of this encounter Visit Diagnoses Diagnosis OA (osteoarthritis)- Primary Osteoarthrosis, unspecified whether generalized or localized, unspecified site Bronchitis Bronchitis, not specified as acute or chronic Asthma Unspecified asthma documented in this encounter Administered Medications Inactive Administered Medications - up to 1 most recent administrations Medication Order MAR Action Action Date Dose Rate Site cefTRIAXone (ROCEPHIN) injection 1 g 1 g, Intramuscular, EVERY 24 HOURS SCHEDULED (Daily), First dose on Mon06/27/12 at 0915, Until Discontinued, Dx: 1. BronchitisIndications:Franki siegelchitis Given 06/27/2012 9:17 AM EST 1 g Left Upper Outer Quadrant methylPREDNISolone acetate (DEPO-MEDROL) injection 80 mg 80 mg, Intramuscular, ONCE, 1 dose, On Mon06/27/12 at 0915, Dx: 1. BronchitisIndications:B robbinchitis Given 06/27/2012 9:17 AM EST 80 mg Left Upper Outer Quadrant documented in this encounter Discontinued Medications Medication Sig Discontinue Reason Start Date End Da te albuterol (PROVENTIL) 2.5 mg /3 mL (0.083 %) nebulizer solution USE DIRECTED . Reorder 06/28/2011 06/27/19 13 predniSONE (DELTASONE) 20 mg tabletIndications:OA (osteoarthritis) Take 3 pills daily for the first 3 days, 2 pills daily for the next 3 days, 1 pill daily for the last 3 days Reorder 01/16/2012 06/27/2012 albuterol (PROVENTIL) 2.5 mg /3 mL (0.083 %) nebulizer solutionIndications:Franki underwoodtis Take 3 mL by nebulization every 4 hours as needed for Wheezing. Reorder 06/27/2012 06/27/2012 albuterol (PROVENTIL;VENTOLIN) 90 mcg/Actuation inhalerIndications:As thma Inhale 1-2 Puffs into the lungs every 4 hours as needed for Wheezing. Reorder 11/29/2010 06/27/2012 documented as of this encounter
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
--- OUTSIDE RECORDS SUMMARY | 2024-05-29 15:54 | XMS_ITS | Encounter Summary ---
Author Organization [place] [address] Care Team Providers Care Set Up And Lay Out Inspector Name Role Phone Unavailable Primary Care Provider Unavailabl e Reason for Visit * Reason Onset Date Comments Medication Refill 03/21/2012 Encounter Details Date Type Department Care Team (Late st Contact Info) Description 03/21/[address] [address] Valdo Espitia MD [address] [phone] Medication Refill Social History Tobacco Use Types [...] Date End Date gabapentin (NEURONTIN) 600 mg tablet Take 1 Tab by mouth 3 times daily. 90 Tab 0 03/21/2012 04/13/2012 documented in this encounter Miscellaneous Notes * Telephone Encounter - Irma Rowell RMA - 03/21/2012 10:02 AM EDT Med sent to pharmacy * Telephone Encounter - Love Newton - 03/21/2012 9:53 AM EDT neurontin refill documented in this encounter Plan of Treatment Upcoming Encounters Date Type Department Care Team (Late st Contact Info) Description 06/28/2024 9:40 AM EST Clinical Support [facility] [address] [place] [phone] 11/19/2024 1:40 PM EDT Office Visit SEP Neurology [facility] [address] [place] [address] Lyndsay Brewer, [address] [place] [address] documented as of this encounter Visit Diagnoses Not on filedocumented in this encounter Discontinued Medications Medication Sig Discontinue Reason Start Date End Da te gabapentin (NEURONTIN) 600 mg tablet TAKE ONE TABLET BY MOUTH THREE TIMES DAILY Reorder 12/15/2010 03/21/2012 documented as of this encounter
--- OUTSIDE RECORDS SUMMARY | 2024-05-29 15:54 | XMS_ITS | Encounter Summary ---
Author Organization [place] [address] Care Team Providers Care Grey Tender Name Role Phone Unavailable Primary Care Provider Unavailabl e Reason for Visit * Reason Onset Date Comments Medication Problem 05/06/2011 PA Encounter Details Date Type Department Care Team (Late st Contact Info) Description 05/06/[address] [facility] [address] [place] [address] Dalila Holland RMA [address] [facility] [address] [place] [address] Medication Problem (PA) Social History Tobacco Use Types Packs/Day Years [...] Date End Date tadalafil (CIALIS) 5 mg tablet Take 1 Tab by mouth as needed for Erectile Dysfunction. 30 Tab 0 05/06/2011 6 documented in this encounter Miscellaneous Notes * Telephone Encounter - Dalila Holland MA - 05/06/2011 2:17 PM EST Needs pa on cialis 5mg. documented in this encounter Plan of Treatment Upcoming Encounters Date Type Department Care Team (Late st Contact Info) Description 06/28/2024 9:40 AM EST Clinical Support [facility] [address] [place] [phone] 11/19/2024 1:40 PM EDT Office Visit SE[facility] Neurology [facility] [address] [place] [address] Lyndsay Brewer DO [address] [place] [address] documented as of this encounter Visit Diagnoses Not on filedocumented in this encounter Discontinued Medications Medication Sig Discontinue Reason Start Date End Da te Tadalafil (CIALIS) 20 mg TabIndications:ED (erectile dysfunction) Take 20 mg by mouth daily. 05/05/2011 05/06/2011 documented as of this encounter
--- OUTSIDE RECORDS SUMMARY | 2024-05-29 15:54 | XMS_ITS | Encounter Summary ---
Author Organization [place] [address] Care Team Providers Care Latex Foam Worker Name Role Phone Unavailable Primary Care Provider Unavailabl e Encounter Details Date Type Department Care Team (Late st Contact Info) Description 06/26/2012 3:36 PM EST - 06/26/2012 4:27 PM EST Emergency [facility] [address] [place] [address] Discharge Disposition: Left Without Being Seen Social [...] on file documented as of this encounter Discharge Disposition Disposition Code Departure Means Destination Comment s Left Without Being Seen pt left before triage documented in this encounter Plan of Treatment Upcoming Encounters Date Type Department Care Team (Late st Contact Info) Description 06/28/2024 9:40 AM EST Clinical Support [facility] [address] [place] [phone] 11/19/2024 1:40 PM EDT Office Visit [facility] Neurology [facility] [address] [place] [address] Lyndsay Brewer DO [address] [place] [address] documented as of this encounter Visit Diagnoses Not on filedocumented in this encounter
--- OUTSIDE RECORDS SUMMARY | 2024-05-29 15:54 | XMS_ITS | Encounter Summary ---
Author Organization [place] [address] Care Team Providers Care Medical Research Associate Name Role Phone Unavailable Primary Care Provider Unavailabl e Reason for Visit * Reason Comments Medication Refill Encounter Details Date Type Department Care Team (Late st Contact Info) Description 03/15/[address] [address] Valdo Espitia MD [address] [phone] Medication Refill Social History Tobacco Use Types [...] Miscellaneous Notes * Telephone Encounter - Ligia Lei MA - 03/15/2011 5:38 PM EDT Love simms called in on other encounter today * Telephone Encounter - Valdo Espitia MD - 03/15/2011 5:34 PM EDT Call in documented in this encounter Plan of Treatment Upcoming Encounters Date Type Department Care Team (Late st Contact Info) Description 06/28/2024 9:40 AM EST Clinical Support [facility] [address] [place] [phone] 11/19/2024 1:40 PM EDT Office Visit [facility] Neu[facility] [address] [place] [address] Lyndsay Brewer, [address] [place] [address] documented as of this encounter Visit Diagnoses Not on filedocumented in this encounter
--- OUTSIDE RECORDS SUMMARY | 2024-05-29 15:54 | XMS_ITS | Encounter Summary ---
Author Organization [place] [address] Care Team Providers Care Surfacer Name Role Phone Unavailable Primary Care Provider Unavailabl e Reason for Visit * Reason Onset Date Comments Medication Refill 06/27/2012 Encounter Details Date Type Department Care Team (Late st Contact Info) Description 06/27/[address] [address] Valdo Espitia MD [address] [phone] Medication Refill Social History Tobacco Use Types [...] Refills Last Filled Start Date End Date fluticasone-salmet mary jo (ADVAIR) 250-50 mcg/dose diskus inhaler Inhale 1 Puff into the lungs 2 times daily for 90 days. 1 Inhaler 2 06/27/2012 09/25/2012 documented in this encounter Miscellaneous Notes * Telephone Encounter - Lyndsay Raphael MA - 06/27/2012 5:36 PM EST Patient notified * Telephone Encounter - Valdo Espitia MD - 06/27/2012 5:32 PM EST Call. Sent in Rx * Telephone Encounter - Manuel Shi - 06/27/2012 4:18 PM EST Pt thought we were going to give him advair today -- but nothing was sent in documented in this encounter Plan of Treatment Upcoming Encounters Date Type Department Care Team (Late st Contact Info) Description 06/28/2024 9:40 AM EST Clinical Support [facility] [address] [place] [phone] 11/19/2024 1:40 PM EDT Office Visit [facility] Neurology [facility] [address] [place] [place] [address] Lyndsay Berwer DO [address] [place] [address] documented as of this encounter Visit Diagnoses Not on filedocumented in this encounter
--- OUTSIDE RECORDS SUMMARY | 2024-05-29 15:54 | XMS_ITS | Encounter Summary ---
Author Organization [place] [address] Care Team Providers Care Closing Agent Name Role Phone Unavailable Primary Care Provider Unavailabl e Reason for Visit * Reason Comments Medication Refill Encounter Details Date Type Department Care Team (Late st Contact Info) Description 06/28/2011 Refill [facility] 100 [place] [address] Valdo Espitia MD [address] [phone] Medication Refill Social History Tobacco Use Types [...] solution USE DIRECTED . 180 mL 0 06/28/2011 3 documented in this encounter Plan of Treatment Upcoming Encounters Date Type Department Care Team (Late st Contact Info) Description 06/28/2024 9:40 AM EST Clinical Support [facility] [address] [place] [phone] 11/19/2024 1:40 PM EDT Office Visit [facility] Neurology [facility] [address] [address] Lyndsay Brewer DO [address] [place] [address] documented as of this encounter Visit Diagnoses Not on filedocumented in this encounter Discontinued Medications Medication Sig Discontinue Reason Start Date End Da te albuterol (PROVENTIL) 2.5 mg /3 mL (0.083 %) nebulizer solution USE DIRECTED . Reorder 06/04/2011 06/28/2011 documented as of this encounter
--- OUTSIDE RECORDS SUMMARY | 2024-05-29 15:54 | XMS_ITS | Encounter Summary ---
Author Organization [place] [address] Care Team Providers Care Fire Extinguisher Repairer Name Role Phone Unavailable Primary Care Provider Unavailabl e Reason for Visit * Reason Comments Medication Refill Encounter Details Date Type Department Care Team (Late st Contact Info) Description 04/13/2012 Refill [facility] 100 [place] [address] Valdo Espitia MD [address] [address] Medication Refill Social History Tobacco Use Types [...] End Date gabapentin (NEURONTIN) 600 mg tablet TAKE 1 TABLET BY MOUTH THREE TIMES DAILY . 90 Tab 5 04/13/2012 10/12/2015 documented in this encounter Plan of Treatment Upcoming Encounters Date Type Department Care Team (Late st Contact Info) Description 06/28/2024 9:40 AM EST Clinical Support [facility] [address] [address] 11/19/2024 1:40 PM EDT Office Visit SE[facility] Neurology [facility] [address] [place] [address] Lyndsay Brewer DO [address] [place] [address] documented as of this encounter Visit Diagnoses Not on filedocumented in this encounter Discontinued Medications Medication Sig Discontinue Reason Start Date End Da te gabapentin (NEURONTIN) 600 mg tablet Take 1 Tab by mouth 3 times daily. Reorder 03/21/2012 04/13/2012 documented as of this encounter
--- OUTSIDE RECORDS SUMMARY | 2024-05-29 15:55 | XMS_ITS | Encounter Summary ---
Author Organization [place] [address] Care Team Providers Care Dock Boss Name Role Phone Unavailable Primary Care Provider Unavailabl e Reason for Visit * Reason Onset Date Comments Rash 11/17/2010 Encounter Details Date Type Department Care Team (Late st Contact Info) Description 11/17/2010 Telephone [facility] 100 [place] [address] Keith Mckeon, MA [address] [place], [place] [phone] Rash Social History Tobacco Use Types Packs/Day Years Used Date Smoking Tobacco: Every Day Alcohol Use Standard Drinks/Week Comments No 0 [...] Date End Date predniSONE (DELTASONE) 20 mg tabletIndications:D ermatitis Take by mouth for 9 days. Take 3 pills daily for the first 3 days, 2 pills daily for the next 3 days, 1 pill daily for the last 3 days 18 Tab 0 11/17/2010 11/26/2010 documented in this encounter Miscellaneous Notes * Telephone Encounter - Keith Mckeon - 11/17/2010 2:42 PM EDT Would like devendra Mckeon called in. Sanitors anh 6.6.[address] Espitia documented in this encounter Plan of Treatment Upcoming Encounters Date Type Department Care Team (Late st Contact Info) Description 06/28/2024 9:40 AM EST Clinical Support [facility] [address] [place] [phone] 11/19/2024 1:40 PM EDT Office Visit [facility] Neurology [facility] [address] [place] [place] [address] Lyndsay Brewer, [address] [place] [address] documented as of this encounter Visit Diagnoses Diagnosis Dermatitis- Primary Contact dermatitis and other eczema, due to unspecified cause documented in this encounter Discontinued Medications Medication Sig Discontinue Reason Start Date End Da te predniSONE (DELTASONE) 20 mg tabletIndications:Dermati tis Take by mouth for 9 days. Take 3 pills daily for the first 3 days, 2 pills daily for the next 3 days, 1 pill daily for the last 3 days Reorder 06/02/2010 11/17/2010 documented as of this encounter
--- OUTSIDE RECORDS SUMMARY | 2024-05-29 15:55 | XMS_ITS | Encounter Summary ---
Author Organization [place] [address] Care Team Providers Care Systems Specialist Name Role Phone Unavailable Primary Care Provider Unavailabl e Reason for Visit * Reason Comments Medication Refill Encounter Details Date Type Department Care Team (Late st Contact Info) Description 12/15/2010 Refill [facility] 100 [place] [address] Valdo Espitia MD [address] [address] Medication Refill Social History Tobacco [...] Date gabapentin (NEURONTIN) 600 mg tablet TAKE ONE TABLET BY MOUTH THREE TIMES DAILY 90 Tab 0 12/15/2010 03/21/2012 documented in this encounter Plan of Treatment Upcoming Encounters Date Type Department Care Team (Late st Contact Info) Description 06/28/2024 9:40 AM EST Clinical Support [facility] [address] [place] [phone] 11/19/2024 1:40 PM EDT Office Visit [facility] Neurology [facility] [address] [place] [address] Lyndsay Brewer DO [address] [place] [address] documented as of this encounter Visit Diagnoses Not on filedocumented in this encounter Discontinued Medications Medication Sig Discontinue Reason Start Date End Da te gabapentin (NEURONTIN) 600 mg tablet Take 1 Tab by mouth 3 times daily. Reorder 07/23/2010 12/15/2010 documented as of this encounter
--- OUTSIDE RECORDS SUMMARY | 2024-05-29 15:55 | XMS_ITS | Encounter Summary ---
Author Organization [place] [address] Care Team Providers Care Roll Changer Name Role Phone Unavailable Primary Care Provider Unavailabl e Reason for Visit * Reason Onset Date Comments Medication Refill 07/23/2010 Encounter Details Date Type Department Care Team (Late st Contact Info) Description 07/23/[address] [address] Valdo Espitia MD [address] [phone] Medication Refill Social History Tobacco Use Types [...] by mouth 3 times daily. 90 Tab 1 07/23/2010 12/15/2010 documented in this encounter Miscellaneous Notes * Telephone Encounter - Manuel Shi - 07/23/2010 10:00 AM EST Refill gabapentin Can Dr. Arcos or Dr. Casper do this? Send to [facility] documented in this encounter Plan of Treatment Upcoming Encounters Date Type Department Care Team (Late st Contact Info) Description 06/28/2024 9:40 AM EST Clinical Support [facility] [address] [place] [phone] 11/19/2024 1:40 PM EDT Office Visit [facility] Neurology [facility] [address] [place] [address] Lyndsay Brewer, [address] [place] [address] documented as of this encounter Visit Diagnoses Not on filedocumented in this encounter Discontinued Medications Medication Sig Discontinue Reason Start Date End Da te gabapentin (NEURONTIN) 600 mg tablet Take 600 mg by mouth 3 times daily. Reorder 07/23/2010 documented as of this encounter
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
--- OUTSIDE RECORDS SUMMARY | 2024-05-29 15:55 | XMS_ITS | Encounter Summary ---
Author Organization [place] [address] Care Team Providers Care Fruit Washer Name Role Phone Unavailable Primary Care Provider Unavailabl e Reason for Visit * Reason Onset Date Comments Other 06/29/2010 Encounter Details Date Type Department Care Team (Late Contact Info) Description 06/29/2010 Telephone [facility] 100 [place] [address] Nancy Fuentes CCMA [address] [place] [address] Other Social History Tobacco Use [...] encounter Miscellaneous Notes * Telephone Encounter - Nancy Fuentes CCMA - 06/29/2010 4:39 PM EST Spoke to pt, per dr bob and advised him to continue seeing pain dr documented in this encounter Plan of Treatment Upcoming Encounters Date Type Department Care Team (Late Contact Info) Description 06/28/2024 9:40 AM EST Clinical Support [facility] [address] [place] [address] 11/19/2024 1:40 PM EDT Office Visit SEP Neurology [facility] [address] [place] [address] Lyndsay Brewer [address] [facility] [address] [place] [address] documented as of this encounter Visit Diagnoses Not on filedocumented in this encounter
--- OUTSIDE RECORDS SUMMARY | 2024-05-29 15:55 | XMS_ITS | Encounter Summary ---
Author Organization [place] [address] Care Team Providers Care Oxide Furnace Tender Name Role Phone Unavailable Primary Care Provider Unavailabl e Reason for Visit * Reason Onset Date Comments Medication Refill 01/14/2011 Encounter Details Date Type Department Care Team (Late st Contact Info) Description 01/14/2011 Refill [facility] 100 [place] [address] Patricia Cornelius MA 19 [facility] [address] [place] [address] Medication Refill Social History Tobacco Use Types [...] 6 hours as needed. 30 Tab 0 01/14/2011 03/07/2011 documented in this encounter Miscellaneous Notes * Telephone Encounter - Patricia Cornelius MA - 01/14/2011 9:05 AM EDT Spoke with pt told him ana was going to get him in with dr. [place] and dr. bob said he could havevalium. Called valium in. documented in this encounter Plan of Treatment Upcoming Encounters Date Type Department Care Team (Late st Contact Info) Description 06/28/2024 9:40 AM EST Clinical Support [facility] [address] [employer] [place] [address] 11/19/2024 1:40 PM EDT Office Visit SEP Neurology [facility] [address] [place] [address] Lyndsay Brewer DO [address] [place] [address] documented as of this encounter Visit Diagnoses Not on filedocumented in this encounter Discontinued Medications Medication Sig Discontinue Reason Start Date End Da te diazepam (VALIUM) 10 mg Take 2 Tabs by mouth every 6 hours as needed. Reorder 11/29/2010 01/14/2011 documented as of this encounter
--- OUTSIDE RECORDS SUMMARY | 2024-05-29 15:55 | XMS_ITS | Encounter Summary ---
Author Organization [place] [address] Care Team Providers Care Warehouse Team Member Name Role Phone Unavailable Primary Care Provider Unavailabl e Reason for Visit * Reason Onset Date Comments Medication Refill 06/21/2010 Encounter Details Date Type Department Care Team (Late st Contact Info) Description 06/21/2010 Telephone [facility] 100 [place] [address] Keith Mckeon, ROGER [address] [place], [place] [phone] Medication Refill Social History Tobacco Use Types [...] Telephone Encounter - Valdo Espitia MD - 06/21/2010 5:28 PM EST Ok call into [facility] * Telephone Encounter - Keith Mckeon - 06/21/2010 5:26 PM EST Pt called and he can have alslometasone dipropionate 0.5 Amcinonide detanechasone ditrotionate And last fluocinonide this goes to [facility]ie in [place] [phone]. Please call pt if we called in med documented in this encounter Plan of Treatment Upcoming Encounters Date Type Department Care Team (Late st Contact Info) Description 06/28/2024 9:40 AM EST Clinical Support [facility] [address] [place] [phone] 11/19/2024 1:40 PM EDT Office Visit SEP Neurology [facility] [address] [place] [address] Lyndsay Brewer DO [address] [place] [address] documented as of this encounter Visit Diagnoses Not on filedocumented in this encounter
--- OUTSIDE RECORDS SUMMARY | 2024-05-29 15:55 | XMS_ITS | Encounter Summary ---
Author Organization [place] [address] Care Team Providers Care Hot Repairman Name Role Phone Unavailable Primary Care Provider Unavailabl e Reason for Visit * Reason Onset Date Comments Medication Refill 01/13/2011 Encounter Details Date Type Department Care Team (Late st Contact Info) Description 01/13/[address] [address] Valdo Espitia MD [address] [phone] Medication Refill Social History Tobacco Use Types [...] Encounter - Patricia Cornelius MA - 01/14/2011 5:23 PM EDT Called in 4 a day until feb 02 * Telephone Encounter - Valdo Espitia MD - 01/14/2011 5:15 PM EDT 4xday max * Telephone Encounter - Dalila Holland MA - 01/14/2011 4:32 PM EDT Got appointment Feb 02 given #30, valium today, states he takes 8 10mg valium daily! Is this correct and if so how many can he have until appointment in Jan * Telephone Encounter - Valdo Espitia MD - 01/13/2011 5:38 PM EDT Tamika referral Dr Ventura Give enough valium tell gets there * Telephone Encounter - Manuel Shi - 01/13/2011 8:44 AM EDT Pt had appt at dr gardner office -- they called him and said they had an emergency and had to reschedule him, but they cannot get him in for a few weeks (calling this am to schedule) -- pt just called dr mahoney office and the recording said he is still at the office, and if they called the pt to cancel an appt, then they would call them when the dr comes back to schedule appt -- he is talkingto Silke to see if there is another psychiatrist he can go to. Can we call him in diazepam due to this? Just enough to last him till he gets to see other dr? Call pt and let him know if we can do this please documented in this encounter Plan of Treatment Upcoming Encounters Date Type Department Care Team (Late st Contact Info) Description 06/28/2024 9:40 AM EST Clinical Support [facility] [address] [place] [phone] 11/19/2024 1:40 PM EDT Office Visit [facility] Neu[facility] [address] [place] [address] Lyndsay Brewer DO [address] [place] [address] documented as of this encounter Visit Diagnoses Not on filedocumented in this encounter
--- OUTSIDE RECORDS SUMMARY | 2024-05-29 15:55 | XMS_ITS | Encounter Summary ---
Author Organization [place] [address] Care Team Providers Care Senior Net Web Developer Name Role Phone Unavailable Primary Care Provider Unavailabl e Reason for Visit * Reason Comments Medication Refill Encounter Details Date Type Department Care Team (Late st Contact Info) Description 03/30/[address] [address] Valdo Espitia MD [address] [phone] Medication Refill Social History Tobacco Use Types [...] Refills Last Filled Start Date End Date lisinopril-hydroch lorothiazide (PRINZIDE;ZESTORET IC) 20-12.5 mg per tablet Take 1 Tab by mouth daily. 30 Tab 2 03/30/2010 05/27/2010 lisinopril-hydroch lorothiazide (PRINZIDE;ZESTORET IC) 20-12.5 mg per tablet 1QD - TAKE ONE TABLET BY MOUTH EVERY DAY 30 Tab 1 03/30/2010 03/30/2010 documented in this encounter Miscellaneous Notes * Telephone Encounter - Melany Raphael - 03/30/2010 12:25 PM EDTAddended by: MELANY RAPHAEL on: 03/30/2010 Modules accepted: Orders documented in this encounter Plan of Treatment Upcoming Encounters Date Type Department Care Team (Late st Contact Info) Description 06/28/2024 9:40 AM EST Clinical Support [facility] [address] [place] [address] 11/19/2024 1:40 PM EDT Office Visit [facility] Neurology [facility] [address] [place] [address] Melany Brewer DO [address] [place] [address] documented as of this encounter Visit Diagnoses Not on filedocumented in this encounter Discontinued Medications Medication Sig Discontinue Reason Start Date End Da te lisinopril-hydrochloroth iazide (PRINZIDE;ZESTORETIC) 20-12.5 mg per tablet Take 1 Tab by mouth daily. Reorder 03/30/2010 lisinopril-hydrochloroth iazide (PRINZIDE;ZESTORETIC) 20-12.5 mg per tablet 1QD - TAKE ONE TABLET BY MOUTH EVERY DAY Reorder 03/30/2010 03/30/2010 documented as of this encounter
--- OUTSIDE RECORDS SUMMARY | 2024-05-29 15:55 | XMS_ITS | Encounter Summary ---
Author Organization [place] [address] Care Team Providers Care Digital Media Associate Name Role Phone Unavailable Primary Care Provider Unavailabl e Reason for Visit * Reason Onset Date Comments Medication Refill 01/16/2010 Encounter Details Date Type Department Care Team (Late st Contact Info) Description 01/16/2010 Telephone [facility] [address] [place] [address] Myrna Spann MA 19 [facility] [address] [place] [address] Medication Refill Social History Tobacco Use Types Packs/Day Years Used Date Smoking Tobacco: Never Assessed Sex and Gender Information Value Date Recorded Sex Assigned at Not on file Legal Sex Male 8:00 PM EDT Gender Identity Not on file Sexual Orientation Not on file documented as of this encounter Miscellaneous Notes * Telephone Encounter - Myrna Spann - 01/16/2010 10:58 AM EDT Please refill oxycodone call him if you can... documented in this encounter Plan of Treatment Upcoming Encounters Date Type Department Care Team (Late st Contact Info) Description 06/28/2024 9:40 AM EST Clinical Support [facility] [address] [place] [phone] 11/19/2024 1:40 PM EDT Office Visit [facility] [address] [place] [address] Lyndsay Brewer, [address] [place] [address] documented as of this encounter Visit Diagnoses Not on filedocumented in this encounter
--- OUTSIDE RECORDS SUMMARY | 2024-05-29 15:55 | XMS_ITS | Encounter Summary ---
Author Organization [place] [address] Care Team Providers Care Chemist Proteins Name Role Phone Unavailable Primary Care Provider Unavailabl e Reason for Visit * Reason Onset Date Comments Medication Refill 03/07/2011 Encounter Details Date Type Department Care Team (Late st Contact Info) Description 03/07/2011 Telephone [facility] 100 [place] [address] Keith Mckeon MA 19 [place], [place] [phone] Medication Refill Social History Tobacco Use Types [...] 6 hours as needed. 30 Tab 0 03/07/2011 03/15/2011 documented in this encounter Miscellaneous Notes * Telephone Encounter - Lisa Colmenares MA - 03/07/2011 2:45 PM EDT Called in * Telephone Encounter - Keith Mckeon MA - 03/07/2011 8:23 AM EDT Needs refill on Valium 10., would like 1 MT, Dolly Sharma anh with Dr Rehman. Has rescheduled documented in this encounter Plan of Treatment Upcoming Encounters Date Type Department Care Team (Late st Contact Info) Description 06/28/2024 9:40 AM EST Clinical Support [facility] [place] [address] [place] [address] 11/19/2024 1:40 PM EDT Office Visit [facility]rology [facility] [address] [place] [address] Lyndsay Brewer DO [address] [place] [address] documented as of this encounter Visit Diagnoses Not on filedocumented in this encounter Discontinued Medications Medication Sig Discontinue Reason Start Date End Da te diazepam (VALIUM) 10 mg Take 1 Tab by mouth every 6 hours as needed. Reorder 01/14/2011 03/07/2011 documented as of this encounter
--- OUTSIDE RECORDS SUMMARY | 2024-05-29 15:55 | XMS_ITS | Encounter Summary ---
Author [place] [address] Care Team Providers Care Certified Flight Instructor Name Role Phone Unavailable Primary Care Provider Unavailabl e Reason for Visit * Reason Onset Date Comments Medication Refill 11/23/2010 Encounter Details Date Type Department Care Team (Late st Contact Info) Description 11/23/[address] [address] Valdo Espitia MD [address] [phone] Medication Refill Social History Tobacco Use Types [...] Date End Date triamcinolone (KENALOG) 0.1 % cream Apply topically 2 times daily for 90 days. 80 g 2 11/23/2010 1 documented in this encounter Miscellaneous Notes * Telephone Encounter - Love Newton - 11/23/2010 8:33 AM EDT Triamcinolon 0.1% cream #80 Apply bid documented in this encounter Plan of Treatment Upcoming Encounters Date Type Department Care Team (Late st Contact Info) Description 06/28/2024 9:40 AM EST Clinical Support [facility] [address] [place] [phone] 11/19/2024 1:40 PM EDT Office Visit [facility] [address] [place] [address] Lyndsay Brewer [address] [facility] [address] [place] [address] documented as of this encounter Visit Diagnoses Not on filedocumented in this encounter Discontinued Medications Medication Sig Discontinue Reason Start Date End Da te triamcinolone (KENALOG) 0.1 % cream Apply topically 2 times daily for 90 days. Reorder 06/21/2010 11/23/2010 documented as of this encounter
--- OUTSIDE RECORDS SUMMARY | 2024-05-29 15:55 | XMS_ITS | Encounter Summary ---
Author Organization [place] [address] Care Team Providers Care Bonderite Operator Name Role Phone Unavailable Primary Care Provider Unavailabl e Reason for Visit * Reason Comments Rash Leg Injury Encounter Details Date Type Department Care Team (Late st Contact Info) Description 06/02/2010 9:30 AM EST Office Visit [address] [phone] Valdo Espitia MD [address] [phone] Dermatitis (Primary Dx); Asthma; HTN (hypertension), malignant; Hip pain, left; OA [...] Sign Reading Time Taken Comments Blood Pressure 154/96 06/02/2010 8:46 AM EST Pulse - - Temperature 36.5 ??C (97.7 ??F) 06/02/2010 8:46 AM ES T Respiratory Rate - - Oxygen Saturation - - Inhaled Oxygen Concentration - - Weight 90.3 kg (199 lb) 06/02/2010 8:46 AM EST Height 170.2 cm (5' 7 ) 06/02/2010 8:46 AM EST Body Mass Index 31.17 06/02/2010 8:46 AM EST documented in this encounter Ordered Prescriptions Prescription Sig Dispense Quantity Refills Last Filled Start Date End Date metoprolol (LOPRESSOR) 25 mg tabletIndications :HTN (hypertension), malignant Take 1 Tab by mouth daily for 30 days. 30 Tab 3 06/02/2010 1 albuterol (PROVENTIL;VENTOL IN) 90 mcg/Actuation inhalerIndication s:Asthma Inhale 1-2 Puffs into the lungs every 4 hours as needed for Wheezing. 17 g 5 06/02/2010 1 lisinopril-hydroc hlorothiazide (PRINZIDE;ZESTORE TIC) 20-12.5 mg per tabletIndications :HTN (hypertension), malignant Take 1 Tab by mouth daily. 30 Tab 2 06/02/2010 1 predniSONE (DELTASONE) 20 mg tabletIndications :Dermatitis Take by mouth for 9 days. Take 3 pills daily for the first 3 days, 2 pills daily for the next 3 days, 1 pill daily for the last 3 days 18 Tab 0 06/02/2010 1 loratadine (CLARITIN) 10 mg tabletIndications :Dermatitis Take 1 Tab by mouth daily for 90 days. 30 Tab 2 06/02/2010 1 predniSONE (DELTASONE) 20 mg tabletIndications :Dermatitis Take by mouth for 9 days. Take 3 pills daily for the first 3 days, 2 pills daily for the next 3 days, 1 pill daily for the last 3 days 18 Tab 0 06/02/2010 0 albuterol (PROVENTIL) 5 mg/mL nebulizer solutionIndicatio ns:Asthma Take 1 mL by nebulization 4 times daily as needed for Wheezing. 1 Bottle 2 06/02/2010 1 albuterol (PROVENTIL;VENTOL IN) 90 mcg/Actuation inhalerIndication s:Asthma Inhale 1-2 Puffs into the lungs every 4 hours as needed for Wheezing. 17 g 5 06/02/2010 0 lisinopril-hydroc hlorothiazide (PRINZIDE;ZESTORE TIC) 20-12.5 mg per tabletIndications :HTN (hypertension), malignant Take 1 Tab by mouth daily. 30 Tab 2 06/02/2010 0 documented in this encounter Progress Notes * Valdo Espitia MD - 06/02/2010 8:48 AM EST Subjective: Patient ID: ZUHAIR WHITLOCK is a 44 y.o. male. HPI Rash The history is provided by the patient. This is a new problem. The current episode started 1 to 4 weeks ago. The problem has been gradually worsening. The rash is present on the back, genitalia, right buttock, right arm, left arm, left upper leg, left lower leg, right upper leg, right lower leg andabdomen. The problem is moderate. The rash is characterized by itchiness. Leg Injury The history is provided by the patient. The current episode started 1 to 4 weeks ago. The pain is present in the left lower leg. The pain quality is described as constant and aching. Denies vomiting, chills, diarrhea, constipation. Has been taking benadryl. Multiple Chronic Patient presents today for follow up for HTN, OA, hip pain. Recent labs as noted in chart. Stable, with no med side effects. Med's were reviewed. Patient's medications, allergies, past medical, surgical, social and family histories were reviewedand updated as appropriate. Review of Systems Constitutional: Negative. HENT: Negative. Eyes: Negative. Respiratory: Negative. Cardiovascular: Negative. Gastrointestinal: Negative. Skin: Positive for rash. Psychiatric/Behavioral: Negative. All other systems reviewed and are negative. Objective: Filed Vitals: 06/02/2010 8:46 AM BP: 154/96 Temp: 97.7 ??F (36.5 ??C) TempSrc: Tympanic Height: 5' 7 (1.702 m) Weight: 199 lb (90.266 kg) Physical Exam Nursing note and vitals reviewed. Constitutional: He is oriented. He appears well-developed and well-nourished. HENT: Head: Normocephalic. Eyes: Conjunctivae and extraocular motions are normal. Cardiovascular: Normal rate, regular rhythm and normal heart sounds. Pulmonary/Chest: Effort normal and breath sounds normal. No respiratory distress. He has no wheezes. He has no rales. Neurological: He is alert and oriented. Psychiatric: He has a normal mood and affect. His behavior is normal. Assessment and Plan: Zuhair was seen today for rash and leg injury. Diagnoses and associated orders for this visit: - Dermatitis - Prednisone 20 mg tab -- Take by mouth for 9 days. Take 3 pills daily for the first 3 days, 2 pills daily for the next 3 days, 1 pill daily for the last 3 days - Loratadine 10 mg tab -- Take 1 Tab by mouth daily for 90 days. - Prednisone 20 mg tab -- Take by mouth for 9 days. Take 3 pills daily for the first 3 days, 2 pills daily for the next 3 days, 1 pill daily for the last 3 days - Asthma - Albuterol 90 mcg/actuation aerosol inhaler -- Inhale 1-2 Puffs into the lungs every 4 hours as needed for Wheezing. - Albuterol sulfate 5 mg/ml (0.5 %) neb solution -- Take 1 mL by nebulization 4 times daily as needed for Wheezing. - Albuterol 90 mcg/actuation aerosol inhaler -- Inhale 1-2 Puffs into the lungs every 4 hours as needed for Wheezing. - Htn (hypertension), malignant - Lisinopril-hydrochlorothiazide 20 mg-12.5 mg tab -- Take 1 Tab by mouth daily. - Lisinopril-hydrochlorothiazide 20 mg-12.5 mg tab -- Take 1 Tab by mouth daily. - Metoprolol tartrate 25 mg tab -- Take 1 Tab by mouth daily for 30 days. - Hip pain, left - No associated orders - Oa (osteoarthritis) - No associated orders documented in this encounter Consult Notes * Santiago, Event Mgr - 11/15/2010 11:52 AM EDT * Santiago, Event Mgr - 10/14/2010 2:21 PM EDT * Santiago, Event Mgr - 09/30/2010 1:58 PM EDT documented in this encounter Plan of Treatment Upcoming Encounters Date Type Department Care Team (Late st Contact Info) Description 06/28/2024 9:40 AM EST Clinical Support [facility] [address] [place] [phone] 11/19/2024 1:40 PM EDT Office Visit [facility] Neurology [facility] [address] [place] [phone] Lyndsay Brewer, [address] [place] [address] documented as of this encounter Visit Diagnoses Diagnosis Dermatitis- Primary Contact dermatitis and other eczema, due to unspecified cause Asthma Unspecified asthma HTN (hypertension), malignant Essential hypertension, malignant Hip pain, left Pain in joint, pelvic region and thigh OA (osteoarthritis) Osteoarthrosis, unspecified whether generalized or localized, unspecified site documented in this encounter Discontinued Medications Medication Sig Discontinue Reason Start Date End Da te lisinopril-hydrochloroth iazide (PRINZIDE;ZESTORETIC) 20-12.5 mg per tablet Take 1 Tab by mouth daily. Reorder 05/27/2010 06/02/2010 albuterol (PROVENTIL;VENTOLIN) 90 mcg/Actuation inhalerIndications:Asthm a Inhale 1-2 Puffs into the lungs every 4 hours as needed for Wheezing. Reorder 01/27/2010 06/02/2010 gabapentin (NEURONTIN) 300 mg capsuleIndications:Hip pain, left Take 1 Cap by mouth 3 times daily. 03/02/2010 06/02/2010 predniSONE (DELTASONE) 20 mg tabletIndications:Dermat itis Take by mouth for 9 days. Take 3 pills daily for the first 3 days, 2 pills daily for the next 3 days, 1 pill daily for the last 3 days Reorder 06/02/2010 06/02/2010 lisinopril-hydrochloroth iazide (PRINZIDE;ZESTORETIC) 20-12.5 mg per tabletIndications:HTN (hypertension), malignant Take 1 Tab by mouth daily. Reorder 06/02/2010 06/02/2010 albuterol (PROVENTIL;VENTOLIN) 90 mcg/Actuation inhalerIndications:Asthm a Inhale 1-2 Puffs into the lungs every 4 hours as needed for Wheezing. Reorder 06/02/2010 06/02/2010 metoprolol (LOPRESSOR) 25 mg tablet Take 25 mg by mouth daily as needed. 06/02/2010 documented as of this encounter Historical Medications * This list may reflect changes made after this encounter. oxycodone (OXY-IR) 15 mg immediate release tablet Take 15 mg by mouth 4 times daily. 01/16/2012 gabapentin (NEURONTIN) 600 mg tablet Take 600 mg by mouth 3 times daily. 07/23/2010 Oxycodone (OXYCONTIN) 30 mg Tb12 Take 30 mg by mouth every 12 hours. 11/29/2010 diazepam (VALIUM) 10 mg Take 20 mg by mouth 4 times daily as needed. 11/29/2010 added in this encounter
--- OUTSIDE RECORDS SUMMARY | 2024-05-29 15:55 | XMS_ITS | Encounter Summary ---
Author Organization [place] [address] Care Team Providers Care Coating Machine Helper Name Role Phone Unavailable Primary Care Provider Unavailabl e Reason for Referral * Consultation (Routine) - Closed Specialty Diagnoses / Procedures Referred By Gus kunz Referred To Contact Pain Medicine-Pain Medicine Diagnoses Left hip pain Valdo Espitia MD Phone: tel: Referral ID Status Reason Start Date Expiration Date Visits Re quested Visits Authorized [id number] Closed 01/27/2010 07/26/2010 1 1 Reason for Visit * Reason Comments Hip Pain left Rash on top of feet Asthma refill Encounter Details Date Type Department Care Team (Late st Contact Info) Description 01/27/2010 9:30 AM EDT Office Visit [address] [phone] Valdo Espitia MD [address] [address] Hip pain, left; HTN (hypertension), malignant; Eczema; OA (osteoarthritis); Asthma Social History Tobacco Use Types Packs/Day [...] Sign Reading Time Taken Comments Blood Pressure 150/96 01/27/2010 9:30 AM EDT Pulse - - Temperature 37.6 ??C (99.7 ??F) 01/27/2010 9:30 AM ED T Respiratory Rate - - Oxygen Saturation - - Inhaled Oxygen Concentration - - Weight - - Height 170.2 cm (5' 7 ) 01/27/2010 9:30 AM EDT Body Mass Index - - documented in this encounter Ordered Prescriptions Prescription Sig Dispense Quantity Refills Last Filled Start Date End Date albuterol (PROVENTIL;VENTOLI N) 90 mcg/Actuation inhalerIndications :Asthma Inhale 1-2 Puffs into the lungs every 4 hours as needed for Wheezing. 17 g 5 01/27/2010 06/02/2010 oxycodone (OXY-IR) 15 mg immediate release tabletIndications: Hip pain, left Take 1 Tab by mouth 3 times daily as needed for Pain. 90 Tab 0 01/27/2010 03/02/2010 documented in this encounter Progress Notes * Santiago Lead Miner - 01/28/2010 1:36 AM EDT * Valdo Espitia MD - 01/27/2010 10:20 AM EDT Subjective: Patient ID: ZUHAIR WHITLOCK is a 44 y.o. male. HPI Had hip replacement January 01 They took over pain meds after replacement. Need therapy Patient's medications, allergies, past medical, surgical, social and family histories were reviewedand updated as appropriate. Review of Systems Constitutional: Negative. HENT: Negative. Eyes: Negative. Respiratory: Negative. Cardiovascular: Negative. Gastrointestinal: Negative. All other systems reviewed and are negative. Objective: Filed Vitals: 01/27/2010 9:30 AM BP: 150/96 Temp: 99.7 ??F (37.6 ??C) TempSrc: Tympanic Height: 5' 7 (1.702 m) Physical Exam Nursing note and vitals reviewed. Constitutional: He is oriented. He appears well-developed and well-nourished. HENT: Head: Normocephalic. Eyes: Conjunctivae and extraocular motions are normal. Cardiovascular: Normal rate, regular rhythm and normal heart sounds. Pulmonary/Chest: Effort normal and breath sounds normal. No respiratory distress. He has no wheezes. He has no rales. Musculoskeletal: Left hip: He exhibits decreased range of motion and tenderness. Neurological: He is alert and oriented. Psychiatric: He has a normal mood and affect. His behavior is normal. Assessment and Plan: Zuhair was seen today for hip pain, rash and asthma. Diagnoses and associated orders for this visit: - Hip pain, left - Oxycodone 15 mg tab -- Take 1 Tab by mouth 3 times daily as needed for Pain. - Htn (hypertension), malignant - No associated orders - Eczema - No associated orders - Oa (osteoarthritis) - No associated orders - Asthma - Albuterol 90 mcg/actuation aerosol inhaler -- Inhale 1-2 Puffs into the lungs every 4 hours as needed for Wheezing. documented in this encounter Consult Notes * Santiago, Lead Miner - 01/28/2010 1:36 AM EDT documented in this encounter ED Notes * Santiago Lead Miner - 04/20/2010 4:00 PM EDT documented in this encounter Plan of Treatment Upcoming Encounters Date Type Department Care Team (Late st Contact Info) Description 06/28/2024 9:40 AM EST Clinical Support [facility] [place] [address] [email or web address] [address] 11/19/2024 1:40 PM EDT Office Visit SEP Neurology [facility] [address] [place] [address] Lyndsay Brewer DO [address] [place] [address] Scheduled Referrals Name Type Priority Associated Diagnoses Orde r Schedule AMB REFERRAL TO PAIN CLINIC Outpatient Referral Routine Asthma Ordered: 01/27/2010 documented as of this encounter Visit Diagnoses Diagnosis Hip pain, left Pain in joint, pelvic region and thigh HTN (hypertension), malignant Essential hypertension, malignant Eczema Contact dermatitis and other eczema, due to unspecified cause OA (osteoarthritis) Osteoarthrosis, unspecified whether generalized or localized, unspecified site Asthma Unspecified asthma documented in this encounter Discontinued Medications Medication Sig Discontinue Reason Start Date End Da te oxycodone (OXY-IR) 15 mg immediate release tablet Take 15 mg by mouth 3 times daily as needed for Pain. Reorder 01/27/2010 albuterol (PROVENTIL;VENTOLIN) 90 mcg/Actuation inhaler Inhale 2 Puffs into the lungs every 6 hours as needed for Wheezing. Reorder 01/27/2010 documented as of this encounter Historical Medications * This list may reflect changes made after this encounter. oxycodone (OXY-IR) 15 mg immediate release tablet Take 15 mg by mouth 3 times daily as needed for Pain. 01/27/2010 lisinopril-hydroc hlorothiazide (PRINZIDE;ZESTORE TIC) 20-12.5 mg per tablet Take 1 Tab by mouth daily. 03/30/2010 metoprolol (LOPRESSOR) 25 mg tablet Take 25 mg by mouth daily as needed. 06/02/2010 albuterol (PROVENTIL;VENTOL IN) 90 mcg/Actuation inhaler Inhale 2 Puffs into the lungs every 6 hours as needed for Wheezing. 01/27/2010 added in this encounter
--- OUTSIDE RECORDS SUMMARY | 2024-05-29 15:55 | XMS_ITS | Encounter Summary ---
Author Organization 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 80 g 1 03/30/2010 0 documented in this encounter Plan of Treatment Upcoming Encounters Date Type Department Care Team (Late st Contact Info) Description 06/28/2024 9:40 AM EST Clinical Support [facility] [address] [place] [id number] 11/19/2024 1:40 PM EDT Office Visit SEP Neurology [facility] [address] [place] [address] Lyndsay Brewer, DO [address] [place] [address] documented as of this encounter Visit Diagnoses Not on filedocumented in this encounter
--- OUTSIDE RECORDS SUMMARY | 2024-05-29 15:55 | XMS_ITS | Encounter Summary ---
Author Organization [place] [address] Care Team Providers Care Medical Information Officer Name Role Phone Unavailable Primary Care Provider Unavailabl e Reason for Visit * Reason Comments Shortness of Breath Reports short of loren ath for 2 weeks. Had been on prednisone for 6 days due to rash which helped breathing. Dry cough. Chills * Auth/Cert/Inpt Specialty Diagnoses / Procedures Referred By Gus t Referred To Contact Diagnoses Pulmonary infiltrate Chronic pain syndrome Pneumonia Adenopathy, hilar Asthma exacerbation Pneumonia, Concern for TB vs Fungal Infection, (Resp Isolation) [facility] [address] [facility] [place] [address] Phone: tel: fax: Referral ID Status Reason Start Date Expiration Date Visits Re quested Visits Authorized [id number] 12/21/2010 06/19/2011 1 1 Encounter Details Date Type Department Care Team (Latest Contact Info) Description 12/20/2010 7:54 AM EDT - 12/23/2010 2:50 PM EDT Hospital Encounter [facility] [address] [facility] [place] [address] Janes Pelaez MD [address] [place] [address] Bishop Cam MD [address] [place] [address] Pneumonia; Asthma exacerbation; Chronic pain syndrome; Adenopathy, hilar; Pulmonary infiltrate Discharge Disposition: Home or Self Care Social [...] Sign Reading Time Taken Comments Blood Pressure 132/84 12/23/2010 12:00 PM EDT Pulse 92 12/23/2010 12:00 PM EDT Temperature 36.5 ??C (97.7 ??F) 12/23/2010 7:40 AM ED T Respiratory Rate 12 12/23/2010 12:00 PM EDT Oxygen Saturation 93% 12/23/2010 12:00 PM EDT Inhaled Oxygen Concentration - - Weight 90.7 kg (200 lb) 12/20/2010 7:56 AM EDT Height - - Body Mass Index 31.32 11/29/2010 8:19 AM EDT documented in this encounter Discharge Summaries * Unknown, Unknown - 12/24/2010 5:23 AM EDT documented in this encounter Discharge Instructions * Discharge Instructions* Marilu Camcaho - 12/23/2010 1:50 PM EDT [facility] Discharge Instructions Best Wishes are extended to you on behalf of [facility] as you are discharged. Because we are most concerned with your health, we suggest you carefully read the following instructions. Follow-Up Appointments REMEMBER TO CONTACT YOUR DOCTOR FOR A FOLLOW-UP APPOINTMENT INSTRUCTED Follow up with Dr. Cam in 2 weeks. Call [phone] to schedule. Check with your doctor regarding any labs, x-rays or studies that you have not received final results. If you have problems related to your current illness/procedure or if your symptoms persist or worsen, please contact your doctor. Activity Instructions THE PATIENT HAS NO RESTRICTIONS UNLESS OTHERWISE INSTRUCTED As tolerated Diet THE PATIENT IS TO CONTINUE PREADMISSION DIET UNLESS OTHERWISE DIRECTED Diet: As tolerated Other Instructions Pain Assessment Location: Type (Instructed) Current pain management regimen (Instructed) IF PAIN INTENSIFIES OR PAIN IS UNRELIEVED WITH MEDICATIONS ORDERED, CALL YOUR DOCTOR Individual Instructions/Custom Documents/Teaching Sheets Use this area to list any individualized instructions, appointments, continued therapies, etc that the patient/family is to continue after discharge. If additional space is needed, use Additional Instructions. Strategies to Protect Your Health Control your blood pressure if it is high Control your blood sugar if you have diabetes Lower your stress level Stay active Stop Smoking! Exercise as tolerated per physician recommendation Monitor weight as instructed Additional Instructions related to continuing or unresolved problems Heart failure (HF) - is a chronic and debilitating disease that can affect how long you live. Heartfailure occurs because your heart has been weakened by other diseases such as high blood pressure, blocked arteries, heart attack, diabetes, etc. It is important to follow a low sodium diet and fluidrestriction as directed by your physician. Call your physician if: Weight gain of 2-3 pounds overnight or 5 pounds in one week Chest discomfort Swelling of the feet or ankles Frequent dry, hacking cough, especially when lying down Dizziness, fainting, passing out Difficulty breathing Leg cramping Decrease in activity tolerance Smoking - is hazardous to your health. Second hand smoke is hazardous to those around you. If you smoke, you can contact your physician for smoking cessation information and classes or [facility] [phone], [facility] at [phone] ext 2 or [phone] Now ( ) IV Sites - notify your doctor for any extreme redness or observed drainage from any old iv site Educational Material Given: Additional Instructions: documented in this encounter Medications at Time of Discharge albuterol (PROVENTIL) 5 mg/mL nebulizer solutionIndicati ons:Asthma Take 1 mL by nebulization 4 times daily as needed for Wheezing. 1 Bottle 5 11/29/2010 2 azithromycin (ZITHROMAX) 250 mg tablet Take by mouth every 24 hours. For three more days 2 lisinopril-hydro chlorothiazide (PRINZIDE;ZESTOR ETIC) 20-12.5 mg per tabletIndication s:HTN (hypertension), malignant Take 1 Tab by mouth daily. 30 Tab 5 11/29/2010 2 metoprolol succinate (TOPROL-XL) 50 mg XL tablet Take 0.5 Tabs by mouth daily. 15 Tab 5 11/29/2010 2 oxymorphone (OPANA ER) 20 mg ER tablet Take by mouth every 12 hours. 2 predniSONE (DELTASONE) 10 mg tablet Take by mouth daily. 2 tablets daily for 3 days, then 1 tablet daily for 3 days 2 triamcinolone (KENALOG) 0.1 % cream Apply topically 2 times daily for 90 days. 80 g 2 11/23/2010 1 documented as of this encounter Discharge Disposition Disposition Code Departure Means Destination Home or Self Care documented in this encounter Progress Notes * Unknown, Unknown - 12/28/2010 4:09 AM EDT * Jesika Leyva RRT - 12/21/2010 8:41 AM EDT Pt chews tobacco. Chewing Prior to sputum collection. * Mary Martin LPN - 12/20/2010 5:57 PM EDT Pt oriented to room, family at bedside with masks on. Educated pt and family about airborne precautions. Per ER recommendation advised pt that he can not leave room until TB has been ruled out. Will continue to monitor. * Unknown, Unknown - 12/20/2010 8:11 AM EDT * Unknown, Unknown - 12/20/2010 8:01 AM EDT * Unknown, Unknown - 12/20/2010 8:01 AM EDT documented in this encounter H&P Notes * Unknown, Unknown - 12/20/2010 3:26 PM EDT documented in this encounter Procedure Notes * Unknown, Unknown - 12/28/2010 4:09 AM EDT * Unknown, Unknown - 12/20/2010 5:42 PM EDT documented in this encounter Nursing Notes * Unknown, Unknown - 12/28/2010 4:04 AM EDT documented in this encounter ED Notes * Lore Vanegas RN - 12/20/2010 4:29 PM EDT To TCU per stretcher with tech. Alert and oriented. Monitor sinus rhythm. Expiratory wheezing posteriorly. Patient and family aware of plan of care. Condition stable. * Lore Vanegas RN - 12/20/2010 11:17 AM EDT Possible TB vs fungal infection. Moved to isolation room. [employer] Professor notified. Patient upset about oxycodone IR since they dont stock it in the hospital . Dr. Pelaez aware. * Mariangel Muhammad - 12/20/2010 9:18 AM EDT Returned from CT per Stretcher without incident. * Darlyn Vanegas RN - 12/20/2010 8:50 AM EDT To xray per stretcher. * Mariangel Muhammad - 12/20/2010 8:[address] per str * Janes Pelaez MD - 12/20/2010 8:30 AM EDT Chief Complaint Patient presents with ??? Shortness of Breath Reports short of breath for 2 weeks. Had been on prednisone for 6 days due to rash which helped breathing. Dry cough. Chills HPI Comments: The patient is a 45-year-old male who comes in complaining of increasing shortness ofbreath for the past 2-3 weeks. He states that last night his dyspnea became severe and he used his albuterol inhaler approximately 15 times. He states that yesterday he had some subjective fever and chills and has been coughing but it has been fairly dry. He denies any chest pain. He has a history of rheumatoid arthritis and takes chronic narcotics for pain control. He reports he is not normally on oxygen at home and has not had any problems with his asthma in at least 6 months if not more thana year. He describes his shortness of breath is moderate to severe. Review of Systems: No history of vomiting, diarrhea, dysuria, abdominal pain, chest pain, sore throat, new back pain. He does report that 2 weeks ago he had a nonspecific rash on his left upper extremity and was placed on prednisone for 6 days For the rash. He has not been on the prednisone for approximately 7 days. The history is provided by the patient and medical records. Allergies Allergen Reactions ??? Nsaids ??? Morphine Other (See Comments) Mood swings ??? Abilify (Aripiprazole) Other (See Comments) convulsions Home Medications: Prior to Admission medications Medication Sig Start Date End Date Taking? Authorizing Provider gabapentin (NEURONTIN) 600 mg tablet TAKE ONE TABLET BY MOUTH THREE TIMES DAILY 12/15/10 Valdo Espitia oxymorphone (OPANA ER) 20 mg ER tablet Take by mouth every 12 hours. Historical Provider albuterol (PROVENTIL) 5 mg/mL nebulizer solution Take 1 mL by nebulization 4 times daily as needed for Wheezing. 11/29/10 11/29/11 Valdo Espitia albuterol (PROVENTIL;VENTOLIN) 90 mcg/Actuation inhaler Inhale 1-2 Puffs into the lungs every 4 hours as needed for Wheezing. 11/29/10 Valdo Espitia lisinopril-hydrochlorothiazide (PRINZIDE;ZESTORETIC) 20-12.5 mg per tablet Take 1 Tab by mouth daily. 11/29/10 Valdo Espitia diazepam (VALIUM) 10 mg Take 2 Tabs by mouth every 6 hours as needed. 11/29/10 Valdo Espitia metoprolol succinate (TOPROL-XL) 50 mg XL tablet Take 0.5 Tabs by mouth daily. 11/29/10 Valdo Espitia triamcinolone (KENALOG) 0.1 % cream Apply topically 2 times daily for 90 days. 11/23/10 02/21/11 Valdo Espitia oxycodone (OXY-IR) 15 mg immediate release tablet Take 15 mg by mouth 3 times daily as needed for Pain. Historical Provider Past Medical History: Past Medical History Diagnosis Date ??? Arthritis ??? Asthma 06/02/2010 ??? EPHRAIM (generalized anxiety disorder) ??? Bipolar affective ??? Pneumothorax Social History: reports that he has never smoked. He has never used smokeless tobacco. He reports that he does not currently drink alcohol. Family History: Family History Problem Relation ??? Diabetes Mother ??? Heart Disease Mother ??? High Blood Pressure Mother ??? High Cholesterol Mother ??? Cancer Father Surgical History: Past Surgical History Procedure Date ??? Joint replacement left hip ??? Eye surgery ??? Hernia repair ??? Knee surgery both ??? Elbow surgery ??? Fracture surgery left leg ??? Total hip arthroplasty Review of Systems All other systems reviewed and are negative. Blood pressure 165/73, pulse 128, temperature 101.6 ??F (38.7 ??C), temperature source Oral, resp. rate 16, weight 200 lb (90.719 kg), SpO2 86%. Physical Exam Nursing note and vitals reviewed. Constitutional: He is oriented. He appears well-developed and well-nourished. He appears moderately short of breath. HENT: Head: Normocephalic and atraumatic. Eyes: Conjunctivae are normal. Pupils are equal, round, and reactive to light. Neck: Normal range of motion. Neck supple. Cardiovascular: Regular rhythm, normal heart sounds and intact distal pulses. No murmur heard. Heart is tachycardic with a rate in the 120s. Pulmonary/Chest: He has prolonged expiratory phase in all lung barker with diffuse expiratory wheezes and rhonchi. His respiratory rate is in the mid-20s. Abdominal: Soft. He exhibits no distension. No tenderness. He has no rebound and no guarding. Musculoskeletal: Normal range of motion. He exhibits no edema. Neurological: He is alert and oriented. Skin: Skin is warm and dry. Psychiatric: He has a normal mood and affect. Procedures Radiology/EKG/Labs: Results for orders placed during the hospital encounter of 12/20/10 XR CHEST AP PORTABLE Narrative: PROCEDURE: Portable chest, 12/20/2010 at 0806. INDICATION: Shortness of breath. FINDINGS: AP upright portable chest is compared to previous examination on 03/06/2009. There is a worsening opacity in the right upper lobe. Nodule is not excluded. Consider further evaluation with CT if clinically indicated. Old rib fractures. Old calcified granulomata. Patchy atelectasis posterior right upper lobe again identified which is stable or slightly worse. Impression: IMPRESSION: Worsening nodular opacity right upper lobe and worsening focal atelectasis in the right upper lobe. Consider CT for further evaluation. Results conveyed to emergency department with voice clip. CT scan of the chest with IV contrast ED Course: Appropriate laboratory and radiology studies reviewed The patient was given several breathing treatments, IV Solu-Medrol, IV Avelox, and IV fluids. He was also given Tylenol. His tachycardia was improving but not Resolved at the time of admission. Medical Decision Making: The patient appears to have a pneumonia. Radiology had some concern for the possibility of a fungal infection versus old tuberculosis. I did discuss the patient with pulmonary, Dr. Cam. At this point in time the patient will be admitted to a respiratory isolation bed.He'll be given continued breathing treatments, antibiotics will be changed to Rocephin and azithromycin, steroids will also be continued. On reevaluation the patient had improvement of his respiratory issues but still had some diffuse wheezing. ED Clinical Impression: Pneumonia Reactive airway disease exacerbation Critical Care time Critical care was administered to the patient for 30 minutes. This time excludes procedure time. Condition at Discharge/Transfer from Department: Serious Janes Pelaez 12/20/10 1030 documented in this encounter Plan of Treatment Upcoming Encounters Date Type Department Care Team (Late st Contact Info) Description 06/28/2024 9:40 AM EST Clinical Support [facility] [address] [place] [phone] 11/19/2024 1:40 PM EDT Office Visit [facility] [address] [place] [address] Lyndsay Brewer, DO [address] [place] [address] documented as of this encounter Procedures Procedure Name Priority Date/Time Associated Diagnosis Comments LOWER RESPIRATORY CULTURE (STAIN INCLUDED) Routine 12/23/2010 11:05 AM EDT ACID FAST BACILLI CULTURE AND SMEAR (STAIN INCLUDED) Early AM 12/23/2010 11:05 AM EDT POTASSIUM LEVEL EULOGIO 12/23/2010 10:57 AM EDT GLUCOSE RANDOM EULOGIO 12/23/2010 10:57 AM EDT FUNGUS CULTURE-OTHER Routine 12/22/2010 12:00 PM EDT ACID FAST BACILLI CULTURE AND SMEAR (STAIN INCLUDED) Early AM 12/22/2010 12:00 PM EDT MISCELLANEOUS LAB Routine 12/22/2010 9:0 0 AM EDT CBC Routine 12/22/2010 7:01 AM EDT BASIC METABOLIC PANEL Routine 12/22/2010 7:01 AM EDT ACID FAST BACILLI CULTURE AND SMEAR (STAIN INCLUDED) Early AM 12/21/2010 11:37 AM EDT MISCELLANEOUS LAB Routine 12/21/2010 11: 30 AM EDT XR CHEST AP PORTABLE STAT 12/21/2010 8:41 AM EDT CBC Timed 12/21/2010 5:43 AM EDT BASIC METABOLIC PANEL Timed 12/21/2010 5:43 AM EDT STREP PNEUMO ANTIGEN Routine 12/21/2010 3:[address] ANGIOGRAM CHEST W CONTRAST STAT 12/20/2010 9:14 AM EDT DIFFERENTIAL STAT 12/20/2010 8:35 AM EDT CBC WITH DIFF STAT 12/20/2010 8:35 AM EDT BASIC METABOLIC PANEL STAT 12/20/2010 8:35 AM EDT XR CHEST AP PORTABLE EULOGIO 12/20/2010 8:11 AM EDT documented in this encounter Results * LOWER RESPIRATORY CULTURE (12/23/2010 11:05 AM EDT) Final Moderate growth of yeast suspect Fay albicans No growth of normal oral gisel 12/26/2010 7:57:57 AM [facility] GS Group 5: ??>25 WBC and <10 epithelial cells/lpf Abundant yeast Moderate mixed oral gisel [facility] Sputum specimen (specimen) 12/23/2010 11:05 AM EDT 12/23/2010 3:00 PM EDT Bishop Cam MD MICROBIOLOGY - GENERAL [place] FAJARDO Final Result [facility] [address] [place] [address] * ACID FAST BACILLI CULTURE AND SMEAR (12/23/2010 11:05 AM EDT) Final No growth of AFB after 6 weeks. [facility] Acid Fast Bacilli Stain No Acid Fast Bacillus seen with fluorescent stain [facility] Sputum specimen (specimen) 12/23/2010 11:05 AM EDT 12/23/2010 3:00 PM EDT Bishop Cam MD MICROBIOLOGY - GENERAL [place] FA[place]O Final Result Performing Organization Address [facility] Co de Phone Number [facility] [address] [place] [address] * (ABNORMAL) GLUCOSE RANDOM (12/23/2010 10:57 AM EDT) Glucose Lvl 193(H) 65 - 99 mg/dL [facility] Blood specimen (specimen) UPPER LIMB STRUCTURE / Unknown 12/23/2010 10:57 AM EDT 12/23/2010 11:01 AM EDT us Victorina Cardona MD CHEMISTRY ORDERABLES Final Re sult Performing Organization Address [facility] Co de Phone Number [facility] [address] [place] [address] * POTASSIUM LEVEL (12/23/2010 10:57 AM EDT) Potassium 4.1 3.5 - 5.3 mmol/L [facility] Blood specimen (specimen) UPPER LIMB STRUCTURE / Unknown 12/23/2010 10:57 AM EDT 12/23/2010 11:01 AM EDT us Victorina Cardona MD CHEMISTRY ORDERABLES Final Re sult Performing Organization Address [facility] Co de Phone Number [facility] [address] [place] [address] * FUNGUS CULTURE-OTHER (12/22/2010 12:00 PM EDT) Final Abundant growth of yeast Abundant growth of yeast #2 No further isolates at 4 weeks 01/18/2011 10:20:20 AM [facility] Sputum, Induced (Lung) 12/22/2010 12:00 PM EDT 12/22/2010 2:53 PM EDT Narrative [facility] - 01/18/2011 10:20 AM EDT Rt to collect with sputum induction us Bishop Cam MD MICROBIOLOGY - GENERAL [place] FA[place]O Final Result Performing Organization Address [facility]/ZIP Co de Phone Number [facility] [address] [place] [address] * ACID FAST BACILLI CULTURE AND SMEAR (12/22/2010 12:00 PM EDT) Pathologist [facility] Acid Fast Bacilli Stain No Acid Fast Bacillus seen with fluorescent stain [facility] Final No growth of AFB after 6 weeks. [facility] Sputum specimen (specimen) (Lung) 12/22/2010 12:00 PM EDT 12/22/2010 2:53 PM EDT Bishop Cam MD MICROBIOLOGY - GENERAL [facility] Final Result Performing Organization Address [facility] de Phone Number [facility] [address] [place] [address] * MISCELLANEOUS LAB (12/22/2010 9:00 AM EDT) Urine specimen (specimen) 12/22/2010 9:00 AM EDT 12/22/2010 9:16 AM EDT Narrative [facility] - 12/23/2010 11:10 AM EDT Urine for strephcocus antigen Bishop Cam MD HEMATOLOGY ORDERABLES Edite d Performing Organization Address [facility] de Phone Number [facility] [address] [place] [address] * (ABNORMAL) BASIC METABOLIC PANEL (12/22/2010 7:01 AM EDT) Pathologist [facility] Sodium 140 135 - 146 mmol/L [facility] Potassium 3.4(L) 3.5 - 5.3 mmol/L [facility] Chloride 97(L) 98 - 110 mmol/L [facility] Total CO2 28 21 - 33 mmol/L [facility] Anion Gap 15 7 - 16 mmol/L [facility] Calcium 9.4 8.6 - 10.2 mg/dL [facility] Glucose Lvl 191(H) 65 - 99 mg/dL [facility] BUN 19 7 - 25 mg/dL [facility] Creatinine 1.1 0.5 - 1.3 mg/dL [facility] GFR Afr Am >60 [facility] Comment: GFR is estimated using creatinine, age, gender, and race. ??GFR has been validated for patients between 18 and 70 years of age. GFR has not been validated for women, patients with serious comorbid conditions, or persons with extremes of body size, muscle mass, or nutritional status. ??For additional information: ??www.kidney.org. Chronic kidney disease stage ? GFR (ml/min/1.73 square meters) ? Stage 3 ? 30 - 59 ? Stage 4 ? 15 - 29 ? Stage 5 ? 14 or less GFR Non Afr Am >60 [facility] Blood specimen (specimen) UPPER LIMB STRUCTURE / Unknown 12/22/2010 7:01 AM EDT 12/22/2010 7:07 AM EDT us Bishop Cam MD CHEMISTRY ORDERABLES Final Result [facility] [address] [place] [address] * (ABNORMAL) CBC (12/22/2010 7:01 AM EDT) WBC 17.4(H) 3.8 - 10.8 x10(3)/mcL [facility] RBC 4.11(L) 4.20 - 5.80 x10(6)/mcL [facility] Hgb 12.8(L) 13.2 - 17.1 gm/dL [facility] Hct 38.0(L) 38.5 - 50.0 % [facility] MCV 92.4 80.0 - 100.0 fL [facility] MCH 31.1 27.0 - 33.0 pg [facility] MCHC 33.6 32.0 - 36.0 gm/dL [facility] RDW 12.9 11.0 - 15.0 % [facility] Platelet 428(H) 140 - 400 x10(3)/mcL [facility] MPV 8.1 7.5 - 11.5 fL [facility] Blood specimen (specimen) UPPER LIMB STRUCTURE / Unknown 12/22/2010 7:01 AM EDT 12/22/2010 7:08 AM EDT us Bishop Cam MD HEMATOLOGY ORDERABLES Final Result Performing Organization Address [facility]/ZIP Co de Phone Number [facility] [address] [place] [address] * ACID FAST BACILLI CULTURE AND SMEAR (12/21/2010 11:37 AM EDT) Final No growth of AFB after 6 weeks. [facility] Acid Fast Bacilli Stain No Acid Fast Bacillus seen with fluorescent stain [facility] Sputum specimen (specimen) STRUCTURE OF MOUTH AND/OR PHARYNX / Unknown 12/21/2010 11:37 AM EDT 12/21/2010 2:50 PM EDT us Bishop Cam MD MICROBIOLOGY - GENERAL [facility] Final Result [facility] [address] [place] [address] * MISCELLANEOUS LAB (12/21/2010 11:30 AM EDT) Urine specimen (specimen) 12/21/2010 11:30 AM EDT 12/21/2010 2:52 PM EDT us Bishop Cam MD HEMATOLOGY ORDERABLES Edite d Performing Organization Address City/[facility]/ZIP Co de Phone Number [facility] [address] [place] [address] * XR CHEST AP PORTABLE (12/21/2010 8:41 AM EDT) Anatomical Region Laterality Modality Chest Radiographic Pauly ging 12/21/2010 8:11 AM EDT Impressions 12/21/2010 9:03 AM EDT IMPRESSION: The patient has known reticular nodular infiltrate throughout the right lung on recent chest CT. This is not well visualized on plain film. There is an right midlung density which may resent some of this infiltrate. Left lung remains clear. Overall the chest x-ray is ?? unchanged since earlier studies. Narrative 12/21/2010 9:03 AM EDT AP upright portable chest date 12/21/2010 time 0837 HISTORY: Shortness of breath possible TB FINDINGS: There are left rib deformities from prior trauma. ??The left lung is clear. Patient's known reticular nodular infiltrate on ??the right ??identified on chest CT is much less apparent on plain film. There is a faint infiltrate in the right midlung. Is some peripheral scarring in the right upper lobe. The cardiopericardial silhouette, vascular and mediastinum remain within normal limits. Procedure Note Ben Nickerson III, MD - 12/21/2010 AP upright portable chest date 12/21/2010 time 0837 HISTORY: Shortness of breath possible TB FINDINGS: There are left rib deformities from prior trauma. The left lungis clear. Patient's known reticular nodular infiltrate on the right identified on chest CTis much less apparent on plain film. There is a faint infiltrate in the right midlung. Is someperipheral scarring in the right upper lobe. The cardiopericardial silhouette, vascular and mediastinum remain withinnormal limits. IMPRESSION: The patient has known reticular nodular infiltrate throughoutthe right lung on recent chest CT. This is not well visualized on plain film. There is anright midlung density which may resent some of this infiltrate. Left lung remains clear. Overallthe chest x-ray is unchanged since earlier studies. Bishop Cam MD IMG DIAGNOSTIC IMAGING ORDTawnya FAJARDO Final Result * (ABNORMAL) BASIC METABOLIC PANEL (12/21/2010 5:43 AM EDT) [facility] Sodium 140 135 - 146 mmol/L [facility] Potassium 3.8 3.5 - 5.3 mmol/L [facility] Chloride 100 98 - 110 mmol/L [facility] Total CO2 28 21 - 33 mmol/L [facility] Anion Gap 12 7 - 16 mmol/L [facility] Calcium 8.9 8.6 - 10.2 mg/dL [facility] Glucose Lvl 182(H) 65 - 99 mg/dL [facility] BUN 10 7 - 25 mg/dL [facility] Creatinine 0.9 0.5 - 1.3 mg/dL [facility] GFR Afr Am >60 [facility] Comment: GFR is estimated using creatinine, age, gender, and race. ??GFR has been validated for patients between 18 and 70 years of age. GFR has not been validated for women, patients with serious comorbid conditions, or persons with extremes of body size, muscle mass, or nutritional status. ??For additional information: ??www.kidney.org. Chronic kidney disease stage ? GFR (ml/min/1.73 square meters) ? Stage 3 ? 30 - 59 ? Stage 4 ? 15 - 29 ? Stage 5 ? 14 or less GFR Non Afr Am >60 [facility] Blood specimen (specimen) UPPER LIMB STRUCTURE / Unknown 12/21/2010 5:43 AM EDT 12/21/2010 6:44 AM EDT Bishop Cam MD CHEMISTRY ORDERABLES Final Result Performing Organization Address [facility] Co de Phone Number [facility] [address] [place] [address] * (ABNORMAL) CBC (12/21/2010 5:43 AM EDT) WBC 13.7(H) 3.8 - 10.8 x10(3)/mcL [facility] RBC 3.43(L) 4.20 - 5.80 x10(6)/mcL [facility] Hgb 11.1(L) 13.2 - 17.1 gm/dL [facility] Hct 32.4(L) 38.5 - 50.0 % [facility] MCV 94.5 80.0 - 100.0 fL [facility] MCH 32.4 27.0 - 33.0 pg [facility] MCHC 34.3 32.0 - 36.0 gm/dL [facility] RDW 12.5 11.0 - 15.0 % [facility] Platelet 256 140 - 400 x10(3)/mcL [facility] MPV 8.4 7.5 - 11.5 fL [facility] Blood specimen (specimen) UPPER LIMB STRUCTURE / Unknown 12/21/2010 5:43 AM EDT 12/21/2010 6:43 AM EDT Bishop Cam MD HEMATOLOGY ORDERABLES Final Result Performing Organization Address City/[facility]/ZIP Co de Phone Number [facility] [address] [place] [address] * STREP PNEUMO ANTIGEN (12/21/2010 3:00 AM EDT) Strep Pneum Ag Negative [facility] Urine specimen (specimen) 12/21/2010 3:00 AM EDT 12/21/2010 10:15 AM EDT us Bishop Cam MD MICROBIOLOGY - GENERAL ORDE RABLES Final Result Performing Organization Address City/[facility]/ZIP Co de Phone Number [facility] [address] [place] [address] * CT ANGIOGRAM CHEST W CONTRAST (12/20/2010 9:14 AM EDT) Anatomical Region Laterality Modality Chest Computed Tomogra phy 12/20/2010 8:44 AM EDT Impressions 12/20/2010 10:09 AM EDT IMPRESSION: No evidence of pulmonary emboli. Chronic changes in the right upper lobe and right lower lobe stable since with some tree-in-bud appearance, bronchiectasis, and bronchovascular distribution consistent stable tuberculosis, fungus disease or other inflammatory process. Narrative 12/20/2010 10:09 AM EDT CTA of the chest with contrast material with multiplanar reconstruction and 3-D imaging, 12/20/2010. HISTORY: Shortness of breath, dry cough, chills. Abnormal chest CT 03/06/2009. Technical note: Spiral CT was performed the chest after infusion of 70 mL of Isovue 370. Coronal and sagittal reconstructions were performed. 3-D images were generated. FINDINGS: There is good opacification the pulmonary vascular system. No evidence of pulmonary emboli identified. The aorta appears normal. There is calcified granulomas disease in the left lower lobe and both hilum. There some lymph nodes present in the superior mediastinum measuring less than 1 cm. There is a lymph node present in the right hilum measuring 18 x 16 mm. Lymph nodes of this size may be normal. They were not ??present previously. The pleural effusion and pneumothorax have cleared. There are healed rib fractures. There scattered bulla throughout the lung barker. Irregular densities throughout the right upper lobe and to a lesser extent the right lower lobe are present. ??These appear to have a bronchovascular distribution with a tree-in-bud appearance. There some bronchial wall thickening and bronchiectasis. This all appears unchanged. There is an irregularly shaped density present in right upper lobe which appears unchanged since the prior examinations suggesting this is stable and scar. There some atelectasis in the left lower lobe. There is a cyst present of the left kidney. The visualized portion the liver spleen right kidney and adrenal gland appears normal. Procedure Note Avery Zaldivar - 12/20/2010 CTA of the chest with contrast material with multiplanar reconstructionand 3-D imaging, 12/20/2010. HISTORY: Shortness of breath, dry cough, chills. Abnormal chest CT03/06/2009. Technical note: Spiral CT was performed the chest after infusion of 70 mLof Isovue 370. Coronal and sagittal reconstructions were performed. 3-D images weregenerated. FINDINGS: There is good opacification the pulmonary vascular system. No evidence ofpulmonary emboli identified. The aorta appears normal. There is calcified granulomas disease in the left lower lobe and bothhilum. There some lymph nodes present in the superior mediastinum measuring lessthan 1 cm. There is a lymph node present in the right hilum measuring 18 x 16 mm. Lymph nodesof this size may be normal. They were not present previously. The pleural effusion and pneumothorax have cleared. There are healed ribfractures. There scattered bulla throughout the lung barker. Irregular densities throughout the right upper lobe and to a lesser extentthe right lower lobe are present. These appear to have a bronchovascular distribution with [id number] appearance. There some bronchial wall thickening and bronchiectasis. Thisall appears unchanged. There is an irregularly shaped density present in right upper lobe whichappears unchanged since the prior examinations suggesting this is stable and scar. There some atelectasis in the left lower lobe. There is a cyst present of the left kidney. The visualized portion theliver spleen right kidney and adrenal gland appears normal. IMPRESSION: No evidence of pulmonary emboli. Chronic changes in the rightupper lobe and right lower lobe stable since with some tree-in-bud appearance,bronchiectasis, and bronchovascular distribution consistent stable tuberculosis, fungusdisease or other inflammatory process. us Janes Pelaez MD [facility] CT ORDERABLES Final Result * (ABNORMAL) AUTO DIFF (12/20/2010 8:35 AM EDT) Neut Percent 84.8(H) 40.0 - 80.0 % [facility] Lymph Percent 3.7(L) 15.0 - 45.0 % [facility] Swisher Percent 8.4 0.0 - 12.0 % [facility] Eos Percent 0.2 0.0 - 8.0 % [facility] Baso Percent 2.9(H) 0.0 - 1.0 % [facility] Neut# 11.79(H) 1.50 - 7.80 x10(3)/mcL [facility] Lymph# 0.51(L) 0.85 - 3.90 x10(3)/mcL [facility] Swisher# 1.17(H) 0.20 - 0.95 x10(3)/mcL [facility] Eos# 0.03 0.01 - 0.50 x10(3)/[facility] Baso# 0.40(H) 0.00 - 0.20 x10(3)/[facility] Blood specimen (specimen) 12/20/2010 8:35 AM EDT 12/20/2010 8:40 AM EDT us Janes Pelaez MD HEMATOLOGY ORDERABLES Final Re sult [facility] [address] [place] [address] * (ABNORMAL) BASIC METABOLIC PANEL (12/20/2010 8:35 AM EDT) Sodium 137 135 - 146 mmol/L [facility] Potassium 3.6 3.5 - 5.3 mmol/L [facility] Chloride 97(L) 98 - 110 mmol/L [facility] Total CO2 32 21 - 33 mmol/L [facility] Anion Gap 8 7 - 16 mmol/L [facility] Calcium 8.9 8.6 - 10.2 mg/dL [facility] Glucose Lvl 121(H) 65 - 99 mg/dL [facility] BUN 6(L) 7 - 25 mg/dL [facility] Creatinine 0.9 0.5 - 1.3 mg/dL [facility] GFR Afr Am >60 [facility] Comment: GFR is estimated using creatinine, age, gender, and race. ??GFR has been validated for patients between 18 and 70 years of age. GFR has not been validated for women, patients with serious comorbid conditions, or persons with extremes of body size, muscle mass, or nutritional status. ??For additional information: ??www.kidney.org. Chronic kidney disease stage ? GFR (ml/min/1.73 square meters) ? Stage 3 ? 30 - 59 ? Stage 4 ? 15 - 29 ? Stage 5 ? 14 or less GFR Non Afr Am >60 [facility] Blood specimen (specimen) UPPER LIMB STRUCTURE / Unknown 12/20/2010 8:35 AM EDT 12/20/2010 8:40 AM EDT us Janes Pelaez MD CHEMISTRY ORDERABLES Edited [facility] [address] [place] [address] * (ABNORMAL) CBC WITH AUTO DIFF (12/20/2010 8:35 AM EDT) WBC 13.9(H) 3.8 - 10.8 x10(3)/mcL [facility] RBC 3.59(L) 4.20 - 5.80 x10(6)/mcL [facility] Hgb 11.6(L) 13.2 - 17.1 gm/dL [facility] Hct 33.5(L) 38.5 - 50.0 % [facility] MCV 93.4 80.0 - 100.0 fL [facility] MCH 32.3 27.0 - 33.0 pg [facility] MCHC 34.6 32.0 - 36.0 gm/dL [facility] RDW 12.7 11.0 - 15.0 % [facility] Platelet 246 140 - 400 x10(3)/mcL [facility] MPV 7.9 7.5 - 11.5 fL [facility] Blood specimen (specimen) UPPER LIMB STRUCTURE / Unknown 12/20/2010 8:35 AM EDT 12/20/2010 8:40 AM EDT us Janes Pelaez MD HEMATOLOGY ORDERABLES Final Re sult [facility] [address] [place] [address] * XR CHEST AP PORTABLE (12/20/2010 8:11 AM EDT) Anatomical Region Laterality Modality Chest Radiographic Pauly ging 12/20/2010 8:02 AM EDT Impressions 12/20/2010 8:19 AM EDT IMPRESSION: Worsening nodular opacity right upper lobe and worsening focal atelectasis in the right upper lobe. Consider CT for further evaluation. Results conveyed to emergency department with voice clip. Narrative 12/20/2010 8:19 AM EDT PROCEDURE: Portable chest, 12/20/2010 at 0806. INDICATION: Shortness of breath. FINDINGS: AP upright portable chest is compared to previous examination on 03/06/2009. There is a worsening opacity in the right upper lobe. Nodule is not excluded. Consider further evaluation with CT if clinically indicated. Old rib fractures. Old calcified granulomata. Patchy atelectasis posterior right upper lobe again identified which is stable or slightly worse. Procedure Note Andrews Muro - 12/20/2010 PROCEDURE: Portable chest, 12/20/2010 at 0806. INDICATION: Shortness of breath. FINDINGS: AP upright portable chest is compared to previous examination on03/06/2009. There is a worsening opacity in the right upper lobe. Nodule is not excluded.Consider further evaluation with CT if clinically indicated. Old rib fractures. Oldcalcified granulomata. Patchy atelectasis posterior right upper lobe again identified which isstable or slightly worse. IMPRESSION: Worsening nodular opacity right upper lobe and worsening focalatelectasis in the right upper lobe. Consider CT for further evaluation. [facility] with [facility]. us Janes Pelaez MD IMG DIAGNOSTIC IMAGING ORDERAB LES Final Result documented in this encounter Visit Diagnoses Diagnosis Pneumonia Pneumonia, organism unspecified Asthma exacerbation Unspecified asthma, with exacerbation Chronic pain syndrome Adenopathy, hilar Enlargement of lymph nodes Pulmonary infiltrate Pulmonary eosinophilia * Initial Assessments - Unknown, Unknown - 12/28/2010 4:04 AM EDT documented in this encounter Administered Medications Inactive Administered Medications - up to 1 most recent administrations Medication Order MAR Action Action Date Dose Rate Site 0.9% NaCl infusion Intravenous, at 100 mL/hr, ONCE, 1 dose, On Mon12/20/10 at 0830, Total of 1 liter NS IV Started 12/20/2010 11:26 AM EDT 125 mL/hr 0.9% NaCl infusion Intravenous, at 10 mL/hr, CONTINUOUS, Starting on Mon12/20/10 at 1145, Until Maritza 12/23/10 at 1855 New Bag 12/23/2010 8:56 AM EDT 10 mL/hr acetaminophen (TYLENOL) tablet 650 mg 650 mg, Oral, ONCE, 1 dose, On Mon12/20/10 at 0815, Maximum dose of acetaminophen is 4000 mg from all sources in 24 hours. Given 12/20/2010 8:05 AM EDT 650 mg albuterol (PROVENTIL) nebulizer solution 2.5 mg 2.5 mg, Nebulization, EVERY 2 HOURS PRN (RESP CARE), Starting on Mon12/20/10 at 1139, Until Maritza 12/23/10 at 1855, Wheezing, Shortness of Breath, Bronchospasm Given 12/23/2010 3:00 AM EDT 2.5 mg albuterol-ipratropium (DUO-NEB) 0.5 mg-3 mg(2.5 mg base)/3 mL nebulizer solution 3 mL 3 mL, Nebulization, ONCE, 1 dose, On Mon12/20/10 at 0815, Administered by Respiratory Therapy. Given 12/20/2010 8:00 AM EDT mL albuterol-ipratropium (DUO-NEB) 0.5 mg-3 mg(2.5 mg base)/3 mL nebulizer solution 3 mL 3 mL, Nebulization, ONCE, 1 dose, On Mon12/20/10 at 0845, Administered by Respiratory Therapy. Given 12/20/2010 9:20 AM EDT 3 mL albuterol-ipratropium (DUO-NEB) 0.5 mg-3 mg(2.5 mg base)/3 mL nebulizer solution 3 mL 3 mL, Nebulization, 4 TIMES DAILY (RESP CARE), First dose on Mon12/20/10 at 1145, Until Discontinued, Administered by Respiratory Therapy. Given 12/20/2010 11:44 AM EDT 3 mL albuterol-ipratropium (DUO-NEB) 0.5 mg-3 mg(2.5 mg base)/3 mL nebulizer solution 3 mL 3 mL, Nebulization, 6 TIMES DAILY (RESP CARE) (6 times per day), First dose on Mon12/20/10 at 1500, Until Discontinued, Administered by Respiratory Therapy. Given 12/20/2010 3:08 PM EDT 3 mL albuterol-ipratropium (DUO-NEB) 0.5 mg-3 mg(2.5 mg base)/3 mL nebulizer solution 3 mL 3 mL, Nebulization, 6 TIMES DAILY (RESP CARE) (6 times per day), First dose (after last modification) on Mon12/20/10 at 2045, Until Discontinued, Administered by Respiratory Therapy. Given 12/23/2010 12:06 PM EDT 3 mL albuterol-ipratropium (DUO-NEB) 0.5 mg-3 mg(2.5 mg base)/3 mL nebulizer solution 1 dose, Starting on Mon12/20/10 at 0755, Until Mon12/20/10 at 0800, NAYELI KAUR: Cabinet Override azithromycin (ZITHROMAX) 500 mg in dextrose 5% 250 mL IVPB 500 mg, Intravenous, EVERY 24 HOURS SCHEDULED (Daily), First dose on Mon12/20/10 at 1145, Until Discontinued, Administer over 60 Minutes IV Started 12/23/2010 9:45 AM EDT 500 mg 150 mL/hr cefTRIAXone (ROCEPHIN) 2 gram/50 mL IVPB 2 g 2 g, Intravenous, EVERY 24 HOURS SCHEDULED (Daily), First dose on Mon12/20/10 at 1145, Until Discontinued, Administer over 30 Minutes IV Started 12/23/2010 9:14 AM EDT 2 g 100 mL/hr CHECK PPD SITE MISCELLANEOUS, EVERY 14 DAYS EVENINGS, 1 dose, First dose on Mon12/22/10 at 2100 Given 12/22/2010 9:55 PM EDT Each diazepam (VALIUM) tablet 20 mg 20 mg, Oral, EVERY 6 HOURS PRN, Starting on Mon12/20/10 at 1655, Until Mon12/23/10 at 1855, Anxiety Given 12/23/2010 9:24 AM EDT 20 mg fondaparinux (ARIXTRA) injection 2.5 mg 2.5 mg, Subcutaneous, DAILY, First dose on Mon12/21/10 at 1500, Until Discontinued Given 12/23/2010 9:25 AM EDT 2.5 mg Abdominal Tissue gabapentin (NEURONTIN) capsule 800 mg 800 mg, Oral, 3 TIMES DAILY, First dose on Mon12/20/10 at 2100, Until Discontinued Given 12/23/2010 11:57 AM EDT 800 mg hydrochlorothiazide (HYDRODIURIL) tablet 12.5 mg 12.5 mg, Oral, DAILY, First dose on Mon12/20/10 at 1700, Until Discontinued Given 12/23/2010 9:24 AM EDT 12.5 mg iopamidol (ISOVUE-370) 76 % injection 100 mL 100 mL, Intravenous, ONCE PRN, 1 dose, Starting on Mon12/20/10 at 0913, Until Mon12/20/10 at 0914, Radiology Procedure, Radiology Given 12/20/2010 9:14 AM EDT 100 mL lisinopril (PRINIVIL;ZESTRIL) tablet 20 mg 20 mg, Oral, DAILY, First dose on Mon12/20/10 at 1700, Until Discontinued, +++ACEI Medication+++ Given 12/23/2010 9:24 AM EDT 20 mg loperamide (IMODIUM) capsule 2 mg 2 mg, Oral, ONCE, 1 dose, On Mon12/21/10 at 1700, After each loose stool - Max 16 mg (8 caps) per 24 hours. Given 12/21/2010 7:44 PM EDT 2 mg methylPREDNISolone sodium succinate (Solu-MEDROL) injection 125 mg 125 mg, Intravenous, ONCE, 1 dose, On Mon12/20/10 at 0845 Given 12/20/2010 8:50 AM EDT 125 mg methylPREDNISolone sodium succinate (Solu-MEDROL) injection 60 mg 60 mg, Intravenous, EVERY 8 HOURS SCHEDULED (3 times per day), First dose (after last modification) on Mon12/20/10 at 2200, Until Discontinued Given 12/22/2010 3:00 PM EDT 60 mg metoprolol succinate (TOPROL-XL) XL tablet 25 mg 25 mg, Oral, DAILY, First dose (after last modification) on Mon12/21/10 at 0900, Until Discontinued, Do not crush or chew. Swallow whole. Given 12/20/2010 9:30 PM EDT 25 mg metoprolol succinate (TOPROL-XL) XL tablet 25 mg 25 mg, Oral, NIGHTLY, First dose (after last modification) on Mon12/21/10 at 2100, Until Discontinued, Do not crush or chew. Swallow whole. Given 12/22/2010 8:34 PM EDT 25 mg morphine (MS CONTIN) CR tablet 30 mg 30 mg, Oral, EVERY 12 HOURS SCHEDULED (2 times per day), First dose on Mon12/20/10 at 1215, Until Discontinued Given 12/23/2010 12:40 AM EDT 30 mg moxifloxacin (AVELOX) 400 mg/250 mL IVPB 400 mg 400 mg, Intravenous, ONCE, 1 dose, On Mon12/20/10 at 0830, Administer over 60 Minutes IV Started 12/20/2010 9:18 AM EDT 400 mg 250 mL/hr oxycodone (ROXICODONE) immediate release tablet 15 mg 15 mg, Oral, ONCE, 1 dose, On Mon12/20/10 at 1000 Given 12/20/2010 10:09 AM EDT 15 mg oxycodone (ROXICODONE) immediate release tablet 15 mg 15 mg, Oral, 3 TIMES DAILY PRN, Starting on Mon12/20/10 at 1139, Until Mon12/20/10 at 1656, Pain Given 12/20/2010 4:26 PM EDT 15 mg oxycodone (ROXICODONE) immediate release tablet 15 mg 15 mg, Oral, 4 TIMES DAILY PRN, Starting on Mon12/20/10 at 1654, Until Mon12/23/10 at 1855, Pain Given 12/23/2010 11:57 AM EDT 15 mg potassium chloride SA (K-DUR;KLOR-CON) tablet 20 mEq 20 mEq, Oral, 4 TIMES DAILY, 4 doses, First dose on Mon12/22/10 at 1545, Last dose on Mon12/23/10 at 1300, X 4 DOSES Given 12/23/2010 12:04 PM EDT 20 mEq predniSONE (DELTASONE) tablet 20 mg 20 mg, Oral, 2 TIMES DAILY WITH MEALS, First dose on Mon12/22/10 at 1800, Until Discontinued Given 12/23/2010 9:24 AM EDT 20 mg sodium chloride 3 % nebulizer solution 15 mL 15 mL, Nebulization, DAILY, 3 doses, First dose (after last reorder) on Mon12/21/10 at 0900, Last dose on Mon12/23/10 at 0900, Sputum induction by respiratory therapy Given 12/23/2010 9:27 AM EDT 15 mL triamcinolone (KENALOG) 0.1 % cream Topical, 2 TIMES DAILY, First dose on Mon12/20/10 at 2100, Until Discontinued Given 12/23/2010 9:18 AM EDT tuberculin injection 5 Units 5 Units, Intradermal, EVERY 14 DAYS EVENINGS, 1 dose, First dose on Mon12/20/10 at 2100, Inject in the flexor surface of the right forearm. Read results at 48 hours and 72 hours Given 12/20/2010 11:52 PM EDT 5 Units Left Arm documented in this encounter Historical Medications * This list may reflect changes made after this encounter. azithromycin (ZITHROMAX) 250 mg tablet Take by mouth every 24 hours. For three more days 01/09/2012 predniSONE (DELTASONE) 10 mg tablet Take by mouth daily. 2 tablets daily for 3 days, then 1 tablet daily for 3 days 01/09/2012 added in this encounter Active and Recently Administered Medications Times are shown in EDT. Scheduled Medication Order 12/21/2010 12/22/2010 12/23/2010 albuterol-ipratropium (DUO-NEB) 0.5 mg-3 mg(2.5 mg base)/3 mL nebulizer solution 3 mL (CANCELED) 3 mL, Nebulization, 6 TIMES DAILY (RESP CARE) (6 times per day), First dose (after last modification) on Mon12/20/10 at 2045, Until Discontinued, Administered by Respiratory Therapy. 0003 (Given - Provider: Magaly Coulter LPN)0618 (Given - Provider: Magaly Coulter LPN)1025 (Given - Provider: Keesha Mathias RN)1330 (Given - Provider: Keesha Mathias RN)1600 (Given - Provider: Lang Zendejas RN)2036 (Given - Provider: Mery Shi RNA) 0010 (Given - Provider: Mery Shi RNA)0536 (Given - Provider: Mery Shi RNA)0730 (Given - Provider: Luis Armando Mello RN)1245 (Given - Provider: Luis Armando Mello RN)1520 (Given - Provider: Luis Armando Mello RN)2034 (Given - Provider: NIKOLAI Robb) 0040 (Given - Provider: Alix Rain LPN)0537 (Given - Provider: Alix Rain LPN)0855 (Given - Provider: Lang Zendejas RN)1206 (Given - Provider: Lang Zendejas RN) azithromycin (ZITHROMAX) 500 mg in dextrose 5% 250 mL IVPB (CANCELED) 500 mg, Intravenous, EVERY 24 HOURS SCHEDULED (Daily), First dose on Mon12/20/10 at 1145, Until Discontinued, Administer over 60 Minutes 1025 (IV Started - Provider: Keesha Mathias RN)1200 (IV STOP - Provider: Keesha Mathias RN) 1000 (IV Started - Provider: Luis Armando Mello RN)1106 (IV STOP - Provider: Luis Armando Mello RN) 0945 (IV Started - Provider: Lang Zendejas RN)1124 (IV STOP - Provider: Lang Zendejas, RN) cefTRIAXone (ROCEPHIN) 2 gram/50 mL IVPB 2 g (CANCELED) 2 g, Intravenous, EVERY 24 HOURS SCHEDULED (Daily), First dose on Mon12/20/10 at 1145, Until Discontinued, Administer over 30 Minutes 0900 (IV Started - Provider: Keesha Mathias RN)0950 (IV STOP - Provider: Keesha Mathias RN) 0900 (IV Started - Provider: Luis Armando Mello RN)0945 (IV STOP - Provider: Luis Armando Mello RN) 0914 (IV Started - Provider: Lang Zendejas RN)0944 (IV STOP - Provider: Lang Zendejas RN) CHECK PPD SITE (COMPLETED) MISCELLANEOUS, EVERY 14 DAYS EVENINGS, 1 dose, First dose on Mon12/22/10 at 2100 2155 (Given - Provider: NIKOLAI Robb - Comment: test negative) fondaparinux (ARIXTRA) injection 2.5 mg (CANCELED) 2.5 mg, Subcutaneous, DAILY, First dose on Mon12/21/10 at 1500, Until Discontinued 1650 (Given - Provider: Lang Zendejas RN - Comment: gave in right abd) 0900 (Given - Provider: Luis Armando Mello RN) 0925 (Given - Provider: Lang Zendejas RN - Comment: gave in left abd) gabapentin (NEURONTIN) capsule 800 mg (CANCELED) 800 mg, Oral, 3 TIMES DAILY, First dose on Mon12/20/10 at 2100, Until Discontinued 1020 (Given - Provider: Keesha Mathias RN)1500 (Hold - Provider: Keesha Mathias RN - Reason: Patient/family refused - Comment: wants at 1730)1633 (Given - Provider: Lang Zendejas RN)2338 (Given - Provider: NIKOLAI Robb) 1025 (Given - Provider: Luis Armando Mello RN)1500 (Given - Provider: Luis Armando Mello RN)2034 (Given - Provider: NIKOLAI Robb) 1157 (Given - Provider: Lang Zendejas RN - Comment: pt wanted to take this later in the day)1400 (Not Given - Provider: Lang Zendejas RN - Reason: Other - Comment: pt is discharged, he will take at home) hydrochlorothiazide (HYDRODIURIL) tablet 12.5 mg (CANCELED) 12.5 mg, Oral, DAILY, First dose on Mon12/20/10 at 1700, Until Discontinued 1020 (Given - Provider: Keesha Mathias RN) 0910 (Given - Provider: Luis Armando Mello RN) 0924 (Given - Provider: Lang Zendejas RN) lisinopril (PRINIVIL;ZESTRIL) tablet 20 mg (CANCELED) 20 mg, Oral, DAILY, First dose on Mon12/20/10 at 1700, Until Discontinued, +++ACEI Medication+++ 1020 (Given - Provider: Keesha Mathias RN) 0910 (Given - Provider: Luis Armando Mello, RN) 0924 (Given - Provider: Lang Zendejas RN) loperamide (IMODIUM) capsule 2 mg (COMPLETED) 2 mg, Oral, ONCE, 1 dose, On Mon12/21/10 at 1700, After each loose stool - Max 16 mg (8 caps) per 24 hours. 194 (Given - Provider: Lang Zendejas RN - Comment: up late from pharm) methylPREDNISolone sodium succinate (Solu-MEDROL) injection 60 mg (CANCELED) 60 mg, Intravenous, EVERY 8 HOURS SCHEDULED (3 times per day), First dose (after last modification) on Mon12/20/10 at 2200, Until Discontinued 0618 (Given - Provider: Magaly Coulter LPN)1500 (Given - Provider: Keesha Mathias RN)2338 (Given - Provider: NIKOLAI Robb) 0536 (Given - Provider: NIKOLAI Robb)1500 (Given - Provider: Luis Armando Mello RN) metoprolol succinate (TOPROL-XL) XL tablet 25 mg (CANCELED) 25 mg, Oral, NIGHTLY, First dose (after last modification) on Mon12/21/10 at 2100, Until Discontinued, Do not crush or chew. Swallow whole. 2050 (Given - Provider: NIKOLAI Robb) 2033 (Given - Provider: NIKOLAI Robb) morphine (MS CONTIN) CR tablet 30 mg (CANCELED) 30 mg, Oral, EVERY 12 HOURS SCHEDULED (2 times per day), First dose on Mon12/20/10 at 1215, Until Discontinued 1015 (Given - Provider: Keesha Mathias RN)2050 (Given - Provider: NIKOLAI Robb) 0910 (Given - Provider: Luis Armando Mello, JUDITH) 0040 (Given - Provider: Alix Rain LPN)1200 (Not Given - Provider: Lang Zendejas RN - Reason: Patient/family refused - Comment: pt did not want at this time) potassium chloride SA (K-DUR;KLOR-CON) tablet 20 mEq (COMPLETED) 20 mEq, Oral, 4 TIMES DAILY, 4 doses, First dose on Mon12/22/10 at 1545, Last dose on Mon12/23/10 at 1300, X 4 DOSES 1800 (Given - Provider: Luis Armando Mello RN)2034 (Given - Provider: NIKOLAI Robb) 923 (Given - Provider: Lang Zendejas RN)120 (Given - Provider: Lang Zendejas RN) predniSONE (DELTASONE) tablet 20 mg (CANCELED) 20 mg, Oral, 2 TIMES DAILY WITH MEALS, First dose on Mon12/22/10 at 1800, Until Discontinued 1800 (Given - Provider: Luis Armando Mello RN) 923 (Given - Provider: Lang Zendejas RN) sodium chloride 3 % nebulizer solution 15 mL (COMPLETED) 15 mL, Nebulization, DAILY, 3 doses, First dose (after last reorder) on Mon12/21/10 at 0900, Last dose on Mon12/23/10 at 0900, Sputum induction by respiratory therapy 0800 (Given by Other (DO NOT USE) - Provider: Keesha Mathias RN) 909 (Given - Provider: Luis Armando Mello RN) 926 (Given - Provider: Lang Zenedjas RN) triamcinolone (KENALOG) 0.1 % cream (CANCELED) Topical, 2 TIMES DAILY, First dose on Mon12/20/10 at 2100, Until Discontinued 09 (Given - Provider: Keesha Mathias RN)2099 (Not Given - Provider: NIKOLAI Robb - Reason: Patient/family refused - Comment: pt states he uses the cream when needed) 909 (Given - Provider: Luis Armando Mello RN)2099 (Not Given - Provider: NIKOLAI Robb - Reason: Other) 917 (Given - Provider: Lang Zendejas RN - Comment: per self, to both arms and ankles) Continuous Medication Order 12/21/2010 12/22/2010 12/23/2010 0.9% NaCl infusion (CANCELED) Intravenous, at 10 mL/hr, CONTINUOUS, Starting on Mon12/20/10 at 1145, Until Maritza 12/23/10 at 1855 0715 (Given by Other (DO NOT USE) - Provider: Keesha Mathias RN) 0856 (New Bag - Provider: Lagn Zendejas, RN)1435 (Stopped - Provider: Lang Zendejas RN) PRN Medication Order 12/21/2010 12/22/2010 12/23/2010 albuterol (PROVENTIL) nebulizer solution 2.5 mg (CANCELED) 2.5 mg, Nebulization, EVERY 2 HOURS PRN (RESP CARE), Starting on Mon12/20/10 at 1139, Until Maritza 12/23/10 at 1855, Wheezing, Shortness of Breath, Bronchospasm 0307 (Given - Provider: Magaly Coulter LPN) 0300 (Given - Provider: Alix Rain LPN) diazepam (VALIUM) tablet 20 mg (CANCELED) 20 mg, Oral, EVERY 6 HOURS PRN, Starting on Mon12/20/10 at 1655, Until Maritza 12/23/10 at 1855, Anxiety 1200 (Given - Provider: Keesha Mathias RN)1633 (Given - Provider: Lang Zendejas RN) 1025 (Given - Provider: Luis Armando Mello RN) 0040 (Given - Provider: Alix Rain LPN)0924 (Given - Provider: Lang Zendejas RN) oxycodone (ROXICODONE) immediate release tablet 15 mg (CANCELED) 15 mg, Oral, 4 TIMES DAILY PRN, Starting on Mon12/20/10 at 1654, Until Mon12/23/10 at 1855, Pain 1027 (Given - Provider: Keesha Mathias RN)1330 (Given - Provider: Keesha Mathias RN)1633 (Given - Provider: Lang Zendejas, JUDITH)2338 (Given - Provider: NIKOLAI Robb) 1025 (Given - Provider: Luis Armando Mello, JUDITH)1500 (Given - Provider: Luis Armando Mello, JUDITH)2035 (Given - Provider: NIKOLAI Robb) 0708 (Given - Provider: Alix Rain LPN)1157 (Given - Provider: Lang Zendejas RN) documented in this encounter Orders Medications Ordered That Tone ht Not Have Been Administered Count Last Ordered Date First Ordered Date albuterol-ipratropium (DUO-N EB) 0.5 mg-3 mg(2.5 mg base)/3 mL nebulizer solution 3 mL 1 12/20/2010 atropine injection 0.5 mg 1 12/20/2010 CHECK PPD SITE 1 12/20/2010 dextrose solution 50 mL 1 12/20/2010 epinephrine injection 1 mg 1 12/20/2010 fentanyl (DURAGESIC) 50 mcg/hr 1 Patch 1 fentanyl (DURAGESIC) patch CHECK 1 12/21/19 11 methylPREDNISolone sodium bose ccinate (Solu-MEDROL) injection 60 mg 3 12/20/2010 metoprolol succinate (TOPROL -XL) XL tablet 50 mg 1 12/20/2010 sodium chloride 3 % nebulize r solution 15 mL 1 12/20/2010 DIET Count Last Ordered Date First Orde red Date REGULAR DIET 1 12/20/2010 Nursing Count Last Ordered Date First Orde red Date DISCHARGE INSTRUCTIONS 1 12/23/2010 NURSING COMMUNICATION 2 12/21/20102010 INTAKE AND OUTPUT 1 12/20/2010 VITAL SIGNS 1 12/20/2010 Respiratory Care Count Last Ordered Date First Ordered Date SPUTUM INDUCTION 3 12/23/2010 12/21/2010 RESP PULSE OXIMETRY, CONT 1 12/20/2010 Transfer Count Last Ordered Date First Orde red Date TRANSFER PATIENT 1 12/21/2010 ADMIT TO INPATIENT 1 12/20/2010 Discharge Count Last Ordered Date First Orde red Date DISCHARGE PATIENT 1 12/23/2010 documented in this encounter
--- OUTSIDE RECORDS SUMMARY | 2024-05-29 15:55 | XMS_ITS | Encounter Summary ---
Author Organization [place] [address] Care Team Providers Care Mail Handler Name Role Phone Unavailable Primary Care Provider Unavailabl e Reason for Visit * Reason Comments Hip Pain refill on med Leg Pain refill on med Encounter Details Date Type Department Care Team (Late st Contact Info) Description 03/02/2010 2:30 PM EDT Office Visit [facility] [address] [place] [address] Valdo Espitia MD [address] [phone] Hip pain, left (Primary Dx) Social History Tobacco Use Types [...] Sign Reading Time Taken Comments Blood Pressure 140/102 03/02/2010 3:43 PM EDT Pulse - - Temperature 37 ??C (98.6 ??F) 03/02/2010 3:43 PM EDT Respiratory Rate - - Oxygen Saturation - - Inhaled Oxygen Concentration - - Weight 79.8 kg (176 lb) 03/02/2010 3:43 PM EDT Height 170.2 cm (5' 7 ) 03/02/2010 3:43 PM EDT Body Mass Index 27.57 03/02/2010 3:43 PM EDT documented in this encounter Ordered Prescriptions Prescription Sig Dispense Quantity Refills Last Filled Start Date End Date gabapentin (NEURONTIN) 300 mg capsuleIndications :Hip pain, left Take 1 Cap by mouth 3 times daily. 90 Cap 2 03/02/2010 06/02/2010 oxycodone (OXY-IR) 15 mg immediate release tabletIndications: Hip pain, left Take 1 Tab by mouth every 4 hours as needed for Pain. 90 Tab 0 03/02/2010 04/22/2010 documented in this encounter Progress Notes * Unknown, Unknown - 04/29/2010 12:00 AM EDTAssociated Order(s): SCANNED RADIOLOGY REPORT * Unknown, Unknown - 04/22/2010 12:00 AM EDTAssociated Order(s): SCANNED RADIOLOGY REPORT * Valdo Espitia MD - 03/02/2010 3:50 PM EDT Subjective: Patient ID: ZUHAIR WHITLOCK is a 44 y.o. male. Leg Pain The history is provided by the patient. This is a chronic problem. The current episode started morethan 1 year ago. The problem occurs constantly. The problem has been gradually worsening. Pertinentnegatives include no chest pain, no abdominal pain, no headaches and no shortness of breath. The symptoms are worsened by bending, twisting, stress, walking, standing and exertion. The symptoms are relieved by medication and laying down. He has tried Tylenol for the symptoms. S/P surgery on crushes Still in terrible Patient's medications, allergies, past medical, surgical, social and family histories were reviewedand updated as appropriate. Review of Systems Constitutional: Negative. Negative for fever, activity change and appetite change. HENT: Negative. Negative for hearing loss, ear pain, nosebleeds, congestion, sore throat, rhinorrhea, sneezing, postnasal drip and ear discharge. Eyes: Negative. Negative for pain, discharge, redness and visual disturbance. Respiratory: Negative. Negative for cough, shortness of breath and wheezing. Cardiovascular: Negative. Negative for chest pain and leg swelling. Gastrointestinal: Negative. Negative for nausea, vomiting, abdominal pain, diarrhea, constipation and blood in stool. Musculoskeletal: Positive for back pain. Skin: Negative. Negative for rash and color change. Neurological: Negative. Negative for seizures and headaches. Psychiatric/Behavioral: Positive for sleep disturbance. Negative for suicidal ideas, behavioral problem and agitation. The patient is not nervous/anxious and is not hyperactive. All other systems reviewed and are negative. Objective: Filed Vitals: 03/02/2010 3:43 PM BP: 140/102 Temp: 98.6 ??F (37 ??C) TempSrc: Tympanic Height: 5' 7 (1.702 m) Weight: 176 lb (79.833 kg) Physical Exam Nursing note and vitals reviewed. Constitutional: He is oriented. He appears well-developed and well-nourished. HENT: Head: Normocephalic. Right Ear: External ear normal. Left Ear: External ear normal. Nose: Nose normal. Mouth/Throat: Oropharynx is clear and moist. Eyes: Conjunctivae and extraocular motions are normal. Pupils are equal, round, and reactive to light. Neck: Normal range of motion. Neck supple. Cardiovascular: Normal rate and normal heart sounds. No murmur heard. Pulmonary/Chest: Effort normal and breath sounds normal. He has no wheezes. He has no rales. Abdominal: Soft. Bowel sounds are normal. He exhibits no distension and no mass. No tenderness. He has no rebound. Musculoskeletal: Normal range of motion. He exhibits no edema and no tenderness. Neurological: He is alert and oriented. He has normal reflexes. No cranial nerve deficit. Skin: Skin is warm. No rash noted. No erythema. Psychiatric: He has a normal mood and affect. His behavior is normal. Judgment normal. Assessment and Plan: Zuhair was seen today for hip pain and leg pain. Diagnoses and associated orders for this visit: - Hip pain, left - Oxycodone 15 mg tab -- Take 1 Tab by mouth every 4 hours as needed for Pain. - Gabapentin 300 mg cap -- Take 1 Cap by mouth 3 times daily. to pain management documented in this encounter Consult Notes * Hi Henderson - 05/11/2010 1:28 PM EST documented in this encounter Plan of Treatment Upcoming Encounters Date Type Department Care Team (Late st Contact Info) Description 06/28/2024 9:40 AM EST Clinical Support [facility] [address] [place] [phone] 11/19/2024 1:40 PM EDT Office Visit [facility] [address] [place] [id number] Osman Lyndsay Polina, DO [address] [place] [address] documented as of this encounter Procedures Procedure Name Priority Date/Time Associated Diagnosis Comments SCANNED RADIOLOGY REPORT 04/29/2010 12:00 AM EDT SCANNED RADIOLOGY REPORT 04/22/2010 12:00 AM EDT documented in this encounter Results * SCANNED RADIOLOGY REPORT (04/29/2010 12:00 AM EDT) Anatomical Region Laterality Modality Other Narrative 04/29/2010 12:00 AM EDT Ordered by an unspecified provider. Transcriptions Unknown, Unknown - 04/29/2010 12:00 AM EDT us Unknown Unknown IMG DIAGNOSTIC IMAGING ORDERABLE S Final Result * SCANNED RADIOLOGY REPORT (04/22/2010 12:00 AM EDT) Anatomical Region Laterality Modality Other Narrative 04/22/2010 12:00 AM EDT Ordered by an unspecified provider. Transcriptions Unknown, Unknown - 04/22/2010 12:00 AM EDT us Unknown Unknown IMG DIAGNOSTIC IMAGING ORDERABLE S Final Result documented in this encounter Visit Diagnoses Diagnosis Hip pain, left- Primary Pain in joint, pelvic region and thigh documented in this encounter Discontinued Medications Medication Sig Discontinue Reason Start Date End Da te oxycodone (OXY-IR) 15 mg immediate release tabletIndications:Hip pain, left Take 1 Tab by mouth 3 times daily as needed for Pain. Reorder 01/27/2010 03/02/2010 documented as of this encounter
--- OUTSIDE RECORDS SUMMARY | 2024-05-29 15:55 | XMS_ITS | Encounter Summary ---
Author Organization [place] [address] Care Team Providers Care Transfer Table Operator Helper Name Role Phone Unavailable Primary Care Provider Unavailabl e Reason for Visit * Reason Onset Date Comments Medication Refill 06/21/2010 Encounter Details Date Type Department Care Team (Late st Contact Info) Description 06/21/2010 Telephone [facility] [address] [place] [address] Lisa Colmenares, [facility] [address] [place], [place] [phone] Medication Refill Social History Tobacco Use Types [...] Telephone Encounter - Valdo Espitia MD - 06/29/2010 3:18 PM EST Nancy tell me in detail what he wants In person please * Telephone Encounter - Nancy Fuentes [facility] - 06/29/2010 12:09 PM EST Wants you to call him about writing him an rx for medication and he has questions for you - he wants to know how much you will have to see him to write him his rx for valium. He is trying to save money and is calling all of his dr's * Telephone Encounter - Valdo Espitia MD - 06/21/2010 5:15 PM EST Nurse call * Telephone Encounter - Lisa Colmenares MA - 06/21/2010 11:44 AM EST Please call him so that he can tell us what cream his insurance will cover he has about 30 different ones. documented in this encounter Plan of Treatment Upcoming Encounters Date Type Department Care Team (Late st Contact Info) Description 06/28/2024 9:40 AM EST Clinical Support [facility] [address] [employer] [facility] [place] [phone] 11/19/2024 1:40 PM EDT Office Visit [facility] [address] [place] [address] Lyndsay Brewer DO [address] [place] [address] documented as of this encounter Visit Diagnoses Not on filedocumented in this encounter
--- OUTSIDE RECORDS SUMMARY | 2024-05-29 15:55 | XMS_ITS | Encounter Summary ---
Author Organization [place] [address] Care Team Providers Care Calender Wind Up Tender Name Role Phone Unavailable Primary Care Provider Unavailabl e Reason for Visit * Reason Onset Date Comments Medication Refill 01/16/2010 Encounter Details Date Type Department Care Team (Late st Contact Info) Description 01/16/[address] [address] Valdo Espitia MD [address] [phone] Medication Refill Social History Tobacco Use Types Packs/Day Years Used Date Smoking Tobacco: Never Assessed Sex and Gender Information Value Date Recorded Sex Assigned at Not on file Legal Sex Male 8:00 PM EDT Gender Identity Not on file Sexual Orientation Not on file documented as of this encounter Miscellaneous Notes * Telephone Encounter - Violet Shi MA - 01/18/2010 12:59 PM EDT Patient notified that medicine was denied per dr Espitia. * Telephone Encounter - Valdo Espitia MD - 01/18/2010 12:37 PM EDT declined * Telephone Encounter - Love Newton - 01/16/2010 11:15 AM EDT Wants something for pain that can be called in [facility] documented in this encounter Plan of Treatment Upcoming Encounters Date Type Department Care Team (Late st Contact Info) Description 06/28/2024 9:40 AM EST Clinical Support [place] [address] [employer] [place] [phone] 11/19/2024 1:40 PM EDT Office Visit [facility] [address] [place] [address] Lyndsay Brewer DO [address] [facility] [address] [place] [address] documented as of this encounter Visit Diagnoses Not on filedocumented in this encounter
--- OUTSIDE RECORDS SUMMARY | 2024-05-29 15:55 | XMS_ITS | Encounter Summary ---
Author Organization [place] [address] Care Team Providers Care Supervisor Coal Handling Name Role Phone Renu Doll MD Primary Care Provider Collin rudd Reason for Visit * Reason Comments Medication Refill Encounter Details Date Type Department Care Team (Late st Contact Info) Description 01/27/2010 Refill [facility] [address] [place] [address] Valdo Espitia MD [address] [address] Medication Refill Social History Tobacco [...] Last Filled Start Date End Date metoprolol (TOPROL-XL) 50 mg XL tablet 1QD - TAKE ONE BY MOUTH EVERY DAY 30 Each 2 01/27/2010 04/22/2010 documented in this encounter Plan of Treatment Upcoming Encounters Date Type Department Care Team (Late Contact Info) Description 06/28/2024 9:40 AM EST Clinical Support [facility] [address] [place] [phone] 11/19/2024 1:40 PM EDT Office Visit [facility] [place] [address] [place] [address] Lyndsay Brewer, DO [address] [place] [address] documented as of this encounter Visit Diagnoses Not on filedocumented in this encounter Care Teams Supervisor Coal Handling Relationship Specialty Start Date End Date Renu Doll MD PCP - General Family Medicine 10/12/15 01/08/17 documented as of this encounter
--- OUTSIDE RECORDS SUMMARY | 2024-05-29 15:55 | XMS_ITS | Encounter Summary ---
Author Organization [place] [address] Care Team Providers Care Orthotic/Prosthetic Clinician Name Role Phone Unavailable Primary Care Provider Unavailabl e Reason for Visit * Reason Onset Date Comments Referral 01/29/2010 Encounter Details Date Type Department Care Team (Late st Contact Info) Description 01/29/2010 Telephone [facility] [address] [place] [address] Silke Kulkarni, A 19 [facility] [address] [place] [address] Referral Social History Tobacco Use Types Packs/Day [...] encounter Miscellaneous Notes * Telephone Encounter - Silke Kulkarni - 02/03/2010 9:56 AM EDT Patient's phone number is [phone] is incorrect. kdm * Telephone Encounter - Silke Kulkarni - 02/01/2010 5:02 PM EDT LMVM for patient to call back regarding ortho appointment. kdm * Telephone Encounter - Silke Kulkarni - 01/29/2010 11:31 AM EDT LMVM for patient to call back regarding specialist appointment. kdm documented in this encounter Plan of Treatment Upcoming Encounters Date Type Department Care Team (Late st Contact Info) Description 06/28/2024 9:40 AM EST Clinical Support [facility] [address] [place] [phone] 11/19/2024 1:40 PM EDT Office Visit [facility] [address] [place] [address] Lyndsay Brewer DO [address] [place] [address] documented as of this encounter Visit Diagnoses Not on filedocumented in this encounter
--- OUTSIDE RECORDS SUMMARY | 2024-05-29 15:55 | XMS_ITS | Encounter Summary ---
Author Organization [place] [address] Care Team Providers Care Drier Feeder Name Role Phone Unavailable Primary Care Provider Unavailabl e Reason for Visit * Reason Onset Date Comments Medication Refill 06/21/2010 Encounter Details Date Type Department Care Team (Late st Contact Info) Description 06/21/[address] [address] Valdo Espitia MD [address] [phone] Medication Refill Social History Tobacco Use Types [...] daily for 90 days. 80 g 2 06/21/2010 1 documented in this encounter Miscellaneous Notes * Telephone Encounter - Love Newton - 06/21/2010 10:35 AM EST You called in topicort instead of the triamcinolone 0.1% He can not afford that. This is to be called in to [facility] documented in this encounter Plan of Treatment Upcoming Encounters Date Type Department Care Team (Late st Contact Info) Description 06/28/2024 9:40 AM EST Clinical Support [facility] [address] [employer] [place] [phone] 11/19/2024 1:40 PM EDT Office Visit [facility] [address] [place] [address] Lyndsay Brewer DO [address] [place] [address] documented as of this encounter Visit Diagnoses Not on filedocumented in this encounter
--- OUTSIDE RECORDS SUMMARY | 2024-05-29 15:55 | XMS_ITS | Encounter Summary ---
Author Organization [place] [address] Care Team Providers Care Tubing Assembler Name Role Phone Unavailable Primary Care Provider Unavailabl e Reason for Visit * Reason Onset Date Comments Other 12/17/2010 Encounter Details Date Type Department Care Team (Late st Contact Info) Description 12/17/2010 Telephone [facility] [address] [place] [address] Myrna Spann MA 19 [facility] [address] [facility] [address] [place] [address] Other Social History Tobacco Use [...] Notes * Telephone Encounter - Silke Kulkarni MA - 12/17/2010 3:29 PM EDT Needs an order for new nebulizer sent to [email or web address] . * Telephone Encounter - Myrna Spann MA - 12/17/2010 3:29 PM EDT Needs an order for a nebulizer and solution sent in to error documented in this encounter Plan of Treatment Upcoming Encounters Date Type Department Care Team (Late st Contact Info) Description 06/28/2024 9:40 AM EST Clinical Support [facility] [address] [employer] [place] [phone] 11/19/2024 1:40 PM EDT Office Visit [facility] Neu[facility] [address] [place] [address] Lyndsay Brewer DO [address] [place] [address] documented as of this encounter Visit Diagnoses Diagnosis Asthma Unspecified asthma documented in this encounter
--- OUTSIDE RECORDS SUMMARY | 2024-05-29 15:55 | XMS_ITS | Encounter Summary ---
Author Organization [place] [address] Care Team Providers Care Steam Powerplant Supervisor Name Role Phone Unavailable Primary Care Provider Unavailabl e Reason for Visit * Reason Onset Date Comments Medication Refill 06/16/2010 Encounter Details Date Type Department Care Team ([facility] st Contact Info) Description 06/16/2010 Telephone [facility] [address] [place] [address] Lisa Colmenares, [facility] [address] [place] [address] Medication Refill Social History Tobacco [...] Refills Last Filled Start Date End Date Desoximetasone (TOPICORT) 0.25 % Oint Apply 1 Each topically 2 times daily as needed. 30 g 2 06/16/2010 1 documented in this encounter Miscellaneous Notes * Telephone Encounter - Lisa Colmenares MA - 06/16/2010 11:27 AM EST Needs something called in for his rash it went away and now it is all back all over his body. Please call in to [facility] [place]. He had triamcinolone before he also had prednisone documented in this encounter Plan of Treatment Upcoming Encounters Date Type Department Care Team (Late st Contact Info) Description 06/28/2024 9:40 AM EST Clinical Support [facility] [address] [place] [phone] 11/19/2024 1:40 PM EDT Office Visit [facility] Neurology [facility] [address] [place] [address] Lyndsay Brewer DO [address] [place] [address] documented as of this encounter Visit Diagnoses Not on filedocumented in this encounter
--- OUTSIDE RECORDS SUMMARY | 2024-05-29 15:55 | XMS_ITS | Encounter Summary ---
Author [place] [address] Care Team Providers Care Life Skills Coordinator Volunteer Name Role Phone Unavailable Primary Care Provider Unavailabl e Reason for Referral * Psychiatric (Routine) - Closed Specialty Diagnoses / Procedures Referred By Gus kunz Referred To Contact Psychiatry & Neurology-Psychiatry Diagnoses PASCUAL (generalized anxiety disorder) Procedures [place] OFFICE/OUTPT VISIT,ERICK ALVAREZ Gregory T, MD Phone: tel: Keegan Dsouza MD [address] [address] Phone: tel: fax: Referral ID Status Reason Start Date Expiration Date Visits Re quested Visits Authorized [id number] Closed 11/29/2010 05/28/2011 1 1 Reason for Visit * Reason Comments Rash Anxiety Encounter Details Date Type Department Care Team (Late st Contact Info) Description 11/29/2010 8:15 AM EDT Office Visit [facility] [address] [place] [address] Valdo Espitia MD [address] [address] PASCUAL (generalized anxiety disorder) (Primary Dx); Asthma; HTN (hypertension), malignant Social History Tobacco Use Types Packs/Day Years [...] Sign Reading Time Taken Comments Blood Pressure 152/96 11/29/2010 8:19 AM EDT Pulse - - Temperature 36.6 ??C (97.9 ??F) 11/29/2010 8:19 AM ED T Respiratory Rate - - Oxygen Saturation - - Inhaled Oxygen Concentration - - Weight 101.6 kg (224 lb) 11/29/2010 8:19 AM EDT Height 170.2 cm (5' 7 ) 11/29/2010 8:19 AM EDT Body Mass Index 35.08 11/29/2010 8:19 AM EDT documented in this encounter Ordered Prescriptions Prescription Sig Dispense Quantity Refills Last Filled Start Date End Date metoprolol succinate (TOPROL-XL) 50 mg XL tablet Take 0.5 Tabs by mouth daily. 15 Tab 5 11/29/2010 2 diazepam (VALIUM) 10 mg Take 2 Tabs by mouth every 6 hours as needed. 240 Tab 0 11/29/2010 1 lisinopril-hydroc hlorothiazide (PRINZIDE;ZESTORE TIC) 20-12.5 mg per tabletIndications :HTN (hypertension), malignant Take 1 Tab by mouth daily. 30 Tab 5 11/29/2010 2 albuterol (PROVENTIL;VENTOL IN) 90 mcg/Actuation inhalerIndication s:Asthma Inhale 1-2 Puffs into the lungs every 4 hours as needed for Wheezing. 17 g 5 11/29/2010 3 albuterol (PROVENTIL) 5 mg/mL nebulizer solutionIndicatio ns:Asthma Take 1 mL by nebulization 4 times daily as needed for Wheezing. 1 Bottle 5 11/29/2010 2 documented in this encounter Progress Notes * Valdo Espitia MD - 11/29/2010 8:21 AM EDT Subjective: Patient ID: ZUHAIR WHITLOCK is a 45 y.o. male. HPI RASH Patient complains of rash involving the all over. Rash started 2 weeks ago. Appearance of rash at onset: Other appearance: red and bumpy. Rash has changed. Discomfort associated with rash: is pruritic. Associated symptoms: no associated symptoms. Multiple Chronic Patient presents today for follow up for anxiety, asthma, hypertension, osteoarthritis, eczema, andhip pain. Recent labs as noted in chart. Stable, with no med side effects. Med's were reviewed. Patient's medications, allergies, past medical, surgical, social and family histories were reviewedand updated as appropriate. Review of Systems Constitutional: Negative. HENT: Negative. Eyes: Negative. Respiratory: Negative. Cardiovascular: Negative. Gastrointestinal: Negative. Psychiatric/Behavioral: Negative. All other systems reviewed and are negative. Objective: Filed Vitals: 11/29/2010 8:19 AM BP: 152/96 Temp: 97.9 ??F (36.6 ??C) TempSrc: Tympanic Height: 5' 7 (1.702 m) Weight: 224 lb (101.606 kg) Physical Exam Nursing note and vitals [...] Zuhair was seen today for rash and anxiety. Diagnoses and associated orders for this visit: - Pascual (generalized anxiety disorder) - Psychiatry - Asthma - Albuterol sulfate 5 mg/ml (0.5 %) neb solution -- Take 1 mL by nebulization 4 times daily as needed for Wheezing. - Albuterol 90 mcg/actuation aerosol inhaler -- Inhale 1-2 Puffs into the lungs every 4 hours as needed for Wheezing. - Htn (hypertension), malignant - Lisinopril-hydrochlorothiazide 20 mg-12.5 mg tab -- Take 1 Tab by mouth daily. Patient is on way too much valium He claims he takes it for anxiety from Dr Ayala, he also takes it for muscle spasms I will fill for a while till he gets in Will do labs in one month was just on pred documented in this encounter Consult Notes * Hi Henderson - 12/14/2010 9:26 AM EDT documented in this encounter Plan of Treatment Upcoming Encounters Date Type Department Care Team (Late st Contact Info) Description 06/28/2024 9:40 AM EST Clinical Support [facility] [address] [employer] [place] [phone] 11/19/2024 1:40 PM EDT Office Visit [facility] [address] [place] [address] Lyndsay Brewer DO [address] [place] [address] Scheduled Referrals Name Type Priority Associated Diagnoses Order Schedule AMB REFERRAL TO PSYCHIATRY Outpatient Referral Routine PASCUAL (generalized anxiety disorder) Ordered: 11/29/2010 documented as of this encounter Visit Diagnoses Diagnosis PASCUAL (generalized anxiety disorder)- Primary Generalized anxiety disorder Asthma Unspecified asthma HTN (hypertension), malignant Essential hypertension, malignant documented in this encounter Discontinued Medications Medication Sig Discontinue Reason Start Date End Da te hydrocodone-acetamino phen (VICODIN) 5-500 mg per tablet Take 1 Tab by mouth every 8 hours as needed for Pain. 04/22/2010 11/29/2010 Oxycodone (OXYCONTIN) 30 mg Tb12 Take 30 mg by mouth every 12 hours. 11/29/2010 Desoximetasone (TOPICORT) 0.25 % Oint Apply 1 Each topically 2 times daily as needed. 06/16/2010 11/29/2010 albuterol (PROVENTIL) 5 mg/mL nebulizer solutionIndications:A sthma Take 1 mL by nebulization 4 times daily as needed for Wheezing. Reorder 06/02/2010 11/29/2010 albuterol (PROVENTIL;VENTOLIN) 90 mcg/Actuation inhalerIndications:As thma Inhale 1-2 Puffs into the lungs every 4 hours as needed for Wheezing. Reorder 06/02/2010 11/29/2010 lisinopril-hydrochlor othiazide (PRINZIDE;ZESTORETIC) 20-12.5 mg per tabletIndications:HTN (hypertension), malignant Take 1 Tab by mouth daily. Reorder 06/02/2010 11/29/2010 diazepam (VALIUM) 10 mg Take 20 mg by mouth 4 times daily as needed. Reorder 11/29/2010 documented as of this encounter Historical Medications * This list may reflect changes made after this encounter. oxymorphone (OPANA ER) 20 mg ER tablet Take by mouth every 12 hours. 01/09/2012 added in this encounter
--- OUTSIDE RECORDS SUMMARY | 2024-05-29 15:55 | XMS_ITS | Encounter Summary ---
Author Organization [place] [address] Care Team Providers Care Heel Compressor Name Role Phone Unavailable Primary Care Provider Unavailabl e Reason for Visit * Reason Onset Date Comments Other 03/29/2010 Encounter Details Date Type Department Care Team (Late st Contact Info) Description 03/29/2010 Telephone [facility] [address] [place] [address] Silke Kulkarni, Jane [address] [facility] [address] [place] [address] Other Social History Tobacco Use [...] Notes * Telephone Encounter - Dalila Holland - 03/29/2010 1:10 PM EDT Every 6 months * Telephone Encounter - Silke Kulkarni - 03/29/2010 1:08 PM EDT He has pain management physician now. But wants to know how often he needs to f/u for bp issues or refill on bp meds. Can he cancel 04/01/10 appt or keep? documented in this encounter Plan of Treatment Upcoming Encounters Date Type Department Care Team (Late st Contact Info) Description 06/28/2024 9:40 AM EST Clinical Support [facility] [place] [address] [employer] [place] [phone] 11/19/2024 1:40 PM EDT Office Visit [facility] [address] [place] [address] Lyndsay Brewer DO [address] [place] [address] documented as of this encounter Visit Diagnoses Not on filedocumented in this encounter
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
--- OUTSIDE RECORDS SUMMARY | 2024-05-29 15:55 | XMS_ITS | Encounter Summary ---
Author Organization [place] [address] Care Team Providers Care Maintenance Of Way Foreman Name Role Phone Unavailable Primary Care Provider Unavailabl e Reason for Visit * Reason Onset Date Comments Medication Refill 05/27/2010 Encounter Details Date Type Department Care Team (Late st Contact Info) Description 05/27/[address] [phone] Valdo Espitia MD [address] [id number] Medication Refill Social History Tobacco Use Types [...] Refills Last Filled Start Date End Date lisinopril-hydrochl orothiazide (PRINZIDE;ZESTORETI C) 20-12.5 mg per tablet Take 1 Tab by mouth daily. 30 Tab 2 05/27/2010 06/02/2010 documented in this encounter Miscellaneous Notes * Telephone Encounter - Valdo Espitia MD - 05/27/2010 11:47 AM EST Needs appt. For cream and prednisone * Telephone Encounter - Manuel Shi - 05/27/2010 8:29 AM EST Refill lisinopril Refill triamcinolone acetonide cream prison 0.1% Wants to see if we can call in prednisone because he has a really bad rash -- it started on his legfrom allergic exema, but now it is every where. If he needs appt to get prednisone he is ok with that.... Just let him know. documented in this encounter Plan of Treatment Upcoming Encounters Date Type Department Care Team (Late st Contact Info) Description 06/28/2024 9:40 AM EST Clinical Support [facility] [place] [address] [place] [phone] 11/19/2024 1:40 PM EDT Office Visit SEP Neurology [facility] [address] [place] [address] Lyndsay Brewer [address] [facility] [address] [place] [address] documented as of this encounter Visit Diagnoses Not on filedocumented in this encounter Discontinued Medications Medication Sig Discontinue Reason Start Date End Da te lisinopril-hydrochlorothi azide (PRINZIDE;ZESTORETIC) 20-12.5 mg per tablet Take 1 Tab by mouth daily. Reorder 03/30/2010 05/27/2010 documented as of this encounter
--- OUTSIDE RECORDS SUMMARY | 2024-05-29 15:56 | XMS_ITS | Clinical Summary ---
Author Organization [facility] Address [address] [place] [address] Care Team Providers Care Clinical Services Specialist Name Role Phone Unavailable Primary Care Provider Unavailabl e Social History Tobacco Use Types Packs/Day Years Used Date Smoking Tobacco: Never Assessed Sex and Gender Information Value Date Recorded Sex Assigned at Not on file Legal Sex Male 2:12 PM EDT Gender Identity Not on file Sexual Orientation Not on file Plan of Treatment Not on file Insurance MEDICARE
--- OUTSIDE RECORDS SUMMARY | 2024-05-29 15:56 | XMS_ITS | Encounter Summary ---
Author Organization [place] [address] Care Team Providers Care Sales Advisory Manager Name Role Phone Unavailable Primary Care Provider Unavailabl e Encounter Details Date Type Department Care Team (Late st Contact Info) Description 06/23/2008 Hospital Encounter [facility] MEDICINE [facility] Generic, Historical Provider Social History Tobacco Use Types Packs/Day Years [...] AM EST Clinical Support [facility] [place] [address] [place] [address] 11/19/2024 1:40 PM EDT Office Visit SEP Neurology [facility] [address] [place] [address] Lyndsay Brewer, [address] [place] [address] documented as of this encounter Visit Diagnoses Not on filedocumented in this encounter
--- OUTSIDE RECORDS SUMMARY | 2024-05-29 15:56 | XMS_ITS | Encounter Summary ---
Author Organization [facility] [place] [address] Care Team Providers Care Dinkey Engine Operator Name Role Phone Unavailable Primary Care Provider Unavailabl e Encounter Details Date Type Department Care Team (Late st Contact Info) Description 10/12/2002 11:59 AM EDT - 10/12/2002 1:30 PM EDT Hospital Encounter [facility] EMERGENCY FTT Generic, Historical Provider Social History Tobacco [...] EST Clinical Support [facility] [address] [place] [address] 11/19/2024 1:40 PM EDT Office Visit SEP Neurology [facility] [address] [place] [address] Lyndsay Brewer, DO [address] [place] [address] documented as of this encounter Visit Diagnoses Not on filedocumented in this encounter
--- OUTSIDE RECORDS SUMMARY | 2024-05-29 15:56 | XMS_ITS | Encounter Summary ---
Author Organization [place] [address] Care Team Providers Care Hydro Excavation Operator Name Role Phone Unavailable Primary Care Provider Unavailabl e Encounter Details Date Type Department Care Team (Late st Contact Info) Description 02/16/2009 1:25 PM EDT - 02/16/2009 2:50 PM EDT Hospital Encounter [facility] EMERGENCY FTT Arvin Santos MD [address] [place] [phone] Social History Tobacco Use Types Packs/Day Years Used Date Smoking Tobacco: Never Assessed Sex and Gender Information Value Date Recorded Sex Assigned at Not on file Legal Sex Male 8:00 PM EDT Gender Identity Not on file Sexual Orientation Not on file documented as of this encounter ED Notes * Unknown, Unknown - 10/01/2009 4:35 AM EDT * Unknown, Unknown - 10/01/2009 4:34 AM EDT documented in this encounter Plan of Treatment Upcoming Encounters Date Type Department Care Team (Late st Contact Info) Description 06/28/2024 9:40 AM EST Clinical Support [facility] [place] [address] [employer] [place] [address] 11/19/2024 1:40 PM EDT Office Visit SEP Neurology [facility] [address] [place] [address] Lyndsay Brewer DO [address] [facility] [place] [address] Scheduled Orders Name Type Priority Associated Diagnoses Orde r Schedule XR CHEST PA OR AP Imaging Routine Once fo r 1 Occurrences starting 10/09/2009 until 10/09/2009, 1 completed XR TIBIA AND FIBULA 2 VIEWS LT Imaging Routine Once for 1 Occur rences starting 10/09/2009 until 10/09/2009, 1 completed XR CHEST PA OR AP Imaging Routine Once fo r 1 Occurrences starting 10/09/2009 until 10/09/2009, 1 completed XR JOINT,SINGLE VIEW MIN 2 JOINTS Imaging Routine Once for 1 Occur rences starting 10/09/2009 until 10/09/2009, 1 completed documented as of this encounter Procedures Procedure Name Priority Date/Time Associated Diagnosis Comments PARTIAL THROMBOPLASTIN TIME Routine 02/16/2009 1:30 PM EDT DIAG JOINT,SINGLE VIEW MIN 2 JOINTS Routine 02/16/2009 12:00 AM EDT DIAG TIBIA AND FIBULA 2 VIEWS LT Routine 02/16/2009 12:00 AM EDT DIAG CHEST PA OR AP Routine 02/16/2009 1 2:00 AM EDT DIAG CHEST PA OR AP Routine 02/16/2009 1 2:00 AM EDT documented in this encounter Results * PARTIAL THROMBOPLASTIN TIME (02/16/2009 1:30 PM EDT) PTT 25.0 23.6 - 33.5 seconds [facility] VENOUS BLOOD / Unknown 02/16/2009 1:30 PM EDT 02/16/2009 2:[address] [facility] - 02/16/2009 2:23 PM EDT AKA:PTT: us Florencio Thomson MD HEMATOLOGY ORDERABLES Final Result [facility] [address] [facility] [place] [address] [facility] * XR JOINT,SINGLE VIEW MIN 2 JOINTS (02/16/2009 12:00 AM EDT) Anatomical Region Laterality Modality Other 02/16/2009 02/16/2009 Narrative 02/16/2009 12:00 AM EDT Name: NIELS Lares : ??1965 VERIFIED [facility] Reason: ??PAIN Dict.Staff: TARIQ HOWARD [id number] Verified By: TARIQ HOWARD ?Alexey: 02/17/09 ??12:30 am Exams: ??DIAG-JOINT MIN 2-JTS SINGLE VW LEFT ANKLE, ONE VIEW, 02/16/09: COMPARISON: ??None. HISTORY: ??Trauma, fall. FINDINGS: A single AP view of the left ankle was performed in conjunction with the AP view of the tibia and fibula. ??Comminuted fracture of the distal tibia is partially seen on this view. ??There is additional mildly displaced fracture of the medial malleolus with mild medial displacement of a distal fracture fragment. This extends intra-articularly at the level of the ankle mortise. ??No distal fibula fracture identified on this single AP view. ??There are several radiodensities projected along the medial aspect of the distal tibia metadiaphysis which may represent retained radiopaque soft tissue foreign bodies versus displaced fracture fragments, although no fractures are seen at this level. ??Overlying bandage material also noted medially. IMPRESSION: 1. MILDLY DISPLACED INTRA-ARTICULAR FRACTURE OF THE MEDIAL MALLEOLUS. 2. RADIODENSITIES PROJECTED IN THE MEDIAL SOFT TISSUES ADJACENT TO THE DISTAL TIBIA METADIAPHYSIS MAY REPRESENT RETAINED RADIOPAQUE SOFT TISSUE FOREIGN BODIES, NO FRACTURES ARE SEEN AT THIS LEVEL. 3. NO SIGNIFICANT DISLOCATION/SUBLUXATION OF THE ANKLE MORTISE OR DISTAL FIBULA FRACTURE IS IDENTIFIED ON LIMITED SINGLE AP VIEW OF THE LEFT ANKLE. ANITA/raquel Dictated 02/16/09 @ 14:42. end of result Procedure Note Unknown, U - 10/09/2009 Name: NIELS Lares : 1965 VERIFIED [facility] Reason: PAIN Dict.Staff: TARIQ HOWARD [id number] Verified By: TARIQ HOWARD Alexey: 02/17/09 12:30 am Exams: DIAG-JOINT MIN 2-JTS SINGLE VW LEFT ANKLE, ONE VIEW, 02/16/09: COMPARISON: None. HISTORY: Trauma, fall. FINDINGS: A single AP view of the left ankle was performed in conjunction with the AP view of the tibia and fibula. Comminuted fracture of the distal tibia is partially seen on this view. There is additional mildly displaced fracture of the medial malleolus with mild medial displacement of a distal fracture fragment. This extends intra-articularly at the level of the ankle mortise. No distal fibula fracture identified on this single AP view. There are several radiodensities projected along the medial aspect of the distal tibia metadiaphysis which may represent retained radiopaque soft tissue foreign bodies versus displaced fracture fragments, although no fractures are seen at this level. Overlying bandage material also noted medially. IMPRESSION: 1. MILDLY DISPLACED INTRA-ARTICULAR FRACTURE OF THE MEDIAL MALLEOLUS. 2. RADIODENSITIES PROJECTED IN THE MEDIAL SOFT TISSUES ADJACENT TO THE DISTAL TIBIA METADIAPHYSIS MAY REPRESENT RETAINED RADIOPAQUE SOFT TISSUE FOREIGN BODIES, NO FRACTURES ARE SEEN AT THIS LEVEL. 3. NO SIGNIFICANT DISLOCATION/SUBLUXATION OF THE ANKLE MORTISE OR DISTAL FIBULA FRACTURE IS IDENTIFIED ON LIMITED SINGLE AP VIEW OF THE LEFT ANKLE. ANITA/raquel Dictated 02/16/09 @ 14:42. end of result us U Unknown IMG [facility] RAD HISTORICAL Final Result * XR CHEST PA OR AP (02/16/2009 12:00 AM EDT) Anatomical Region Laterality Modality Other 02/16/2009 02/16/2009 Narrative 02/16/2009 12:00 AM EDT Name: NIELS Lares : ??1965 VERIFIED [facility] Reason: ??CHEST TUBE PLACEMENT Dict.Staff: TARIQ HOWARD [id number] Verified By: TARIQ HOWARD ?Alexey: 02/16/09 ?? 4:16 pm Exams: ??DIAG-PORTABLE CHEST SUPINE PORTABLE AP CHEST, 02/16/09 AT 14:02 HOURS: COMPARISON: ??Same day at 13:33 hours. HISTORY: ??Chest tube placement. FINDINGS: There has been interval placement of a left-sided chest tube, with re-expansion of the left lung. ??There is a suspected tiny residual pneumothorax at the left apex. ??Additional tiny pneumothorax suspected at the right apex as well. ??Persistent patchy bibasilar opacities are again noted compatible with contusion, aspiration, or atelectasis. ??There is extensive subcutaneous emphysema, particularly in the left chest wall. Heart size and mediastinal contours are unremarkable. Multiple left sided rib fractures again noted, involving at least the 3rd through 7th ribs. IMPRESSION: 1. INTERVAL PLACEMENT OF LEFT-SIDED CHEST TUBE, WITH RE-EXPANSION OF THE LEFT LUNG. ??TINY BIAPICAL PNEUMOTHORACES ARE SUSPECTED. 2. PATCHY BILATERAL PULMONARY OPACITIES, COMPATIBLE WITH CONTUSION, ASPIRATION, OR ATELECTASIS. 3. RESULTS CALLED TO DR. SANTOS AT 14:35 HOURS ON 02/16/[address] HOWARD. ANITA/raquel Dictated 02/16/09 @ 14:42. end of result Procedure Note Unknown, U - 10/09/2009 Name: NIELS Lares : 1965 VERIFIED [facility] Reason: CHEST TUBE PLACEMENT Dict.Staff: TARIQ HOWARD [id number] Verified By: TARIQ HOWARD Alexey: 02/16/09 4:16 pm Exams: DIAG-PORTABLE CHEST SUPINE PORTABLE AP CHEST, 02/16/09 AT 14:02 HOURS: COMPARISON: Same day at 13:33 hours. HISTORY: Chest tube placement. FINDINGS: There has been interval placement of a left-sided chest tube, with re-expansion of the left lung. There is a suspected tiny residual pneumothorax at the left apex. Additional tiny pneumothorax suspected at the right apex as well. Persistent patchy bibasilar opacities are again noted compatible with contusion, aspiration, or atelectasis. There is extensive subcutaneous emphysema, particularly in the left chest wall. Heart size and mediastinal contours are unremarkable. Multiple left sided rib fractures again noted, involving at least the 3rd through 7th ribs. IMPRESSION: 1. INTERVAL PLACEMENT OF LEFT-SIDED CHEST TUBE, WITH RE-EXPANSION OF THE LEFT LUNG. TINY BIAPICAL PNEUMOTHORACES ARE SUSPECTED. 2. PATCHY BILATERAL PULMONARY OPACITIES, COMPATIBLE WITH CONTUSION, ASPIRATION, OR ATELECTASIS. 3. RESULTS CALLED TO DR. SANTOS AT 14:35 HOURS ON 02/16/[address] HOWARD. ANITA/raquel Dictated 02/16/09 @ 14:42. end of result us U Unknown [facility] Final Result * XR TIBIA AND FIBULA 2 VIEWS LT (02/16/2009 12:00 AM EDT) Anatomical Region Laterality Modality Other 02/16/2009 02/16/2009 Narrative 02/16/2009 12:00 AM EDT Name: NIELS Lares : ??1965 VERIFIED [facility] Reason: ??PAIN Dict.Staff: TARIQ HOWARD [id number] Verified By: TARIQ HOWARD ?Alexey: 02/17/09 ??12:30 am Exams: ??DIAG-TIB/FIB MIN 2-VIEWS LT LEFT TIBIA AND FIBULA, ONE VIEW, 02/16/09: COMPARISON: ??None. HISTORY: ??Trauma, pain. FINDINGS: Single AP view of the left tibia and fibula was performed. There are comminuted fractures of the tibia and fibula involving the mid diaphyses. ??On single AP view, there is lateral displacement of the distal fracture fragments measuring approximately one shaft width. ??Hypertrophic degenerative changes are also noted in the knee, primarily involving the medial compartment. IMPRESSION: COMMINUTED DISPLACED FRACTURES OF THE LEFT TIBIA AND FIBULA MIDSHAFTS. ANITA/raquel Dictated 02/16/09 @ 14:42. end of result Procedure Note Unknown, U - 10/09/2009 Name: NIELS Lares : 1965 VERIFIED [facility] Reason: PAIN Dict.Staff: TARIQ HOWARD [id number] Verified By: TARIQ HOWARD Alexey: 02/17/09 12:30 am Exams: DIAG-TIB/FIB MIN 2-VIEWS LT LEFT TIBIA AND FIBULA, ONE VIEW, 02/16/09: COMPARISON: None. HISTORY: Trauma, pain. FINDINGS: Single AP view of the left tibia and fibula was performed. There are comminuted fractures of the tibia and fibula involving the mid diaphyses. On single AP view, there is lateral displacement of the distal fracture fragments measuring approximately one shaft width. Hypertrophic degenerative changes are also noted in the knee, primarily involving the medial compartment. IMPRESSION: COMMINUTED DISPLACED FRACTURES OF THE LEFT TIBIA AND FIBULA MIDSHAFTS. ANITA/raquel Dictated 02/16/09 @ 14:42. end of result us U Unknown IMG [facility] RAD HISTORICAL Final Result * XR CHEST PA OR AP (02/16/2009 12:00 AM EDT) Anatomical Region Laterality Modality Other 02/16/2009 02/16/2009 Narrative 02/16/2009 12:00 AM EDT Name: NIELS Lares : ??1965 VERIFIED [facility] Reason: ??FT5 ??TRAUMA Dict.Staff: TARIQ HOWARD [id number] Verified By: TARIQ HOWARD ?Alexey: 02/16/09 ?? 4:16 pm Exams: ??DIAG-PORTABLE CHEST PORTABLE AP CHEST, 02/16/09 AT 13:33 HOURS: COMPARISON: ??08/04/08, 06/22/08 HISTORY: ??Trauma, fall. FINDINGS: There is a moderate to large-sized left pneumothorax, predominantly located over the apex. ??Large amount of associated subcutaneous edema noted in the chest wall, left greater than right. ??There is collapse of the left lung, with multiple associated left-sided rib fractures, involving at least the left posterolateral 3rd, 4th, 5th, and 6th ribs. ??Patchy and ill-defined opacities are noted in the lower lungs bilaterally, which may represent contusions, atelectasis, or aspiration. Heart size and mediastinal contours are unremarkable. ??No significant mediastinal shift appreciated. IMPRESSION: 1. MODERATE TO LARGE LEFT PNEUMOTHORAX WITH ASSOCIATED SUBCUTANEOUS EMPHYSEMA, MULTIPLE LEFT-SIDED RIB FRACTURES, AND COLLAPSE OF THE LEFT LUNG. 2. PATCHY BILATERAL PULMONARY OPACITIES ARE NONSPECIFIC BUT MAY REPRESENT CONTUSION, ASPIRATION, OR ATELECTASIS. 3. SUSPECTED SMALL RIGHT APICAL PNEUMOTHORAX. 4. RESULTS CALLED TO DR. SANTOS AT 14:35 HOURS ON 02/16/[address] HOWARD. ANITA/raquel Dictated 02/16/09 @ 14:42. end of result Procedure Note Unknown, U - 10/09/2009 Name: NIELS Lares : 1965 VERIFIED [facility] Reason: FT5 TRAUMA Dict.Staff: TARIQ HOWARD [id number] Verified By: TARIQ HOWARD Alexey: 02/16/09 4:16 pm Exams: DIAG-PORTABLE CHEST PORTABLE AP CHEST, 02/16/09 AT 13:33 HOURS: COMPARISON: 08/04/08, 06/22/08 HISTORY: Trauma, fall. FINDINGS: There is a moderate to large-sized left pneumothorax, predominantly located over the apex. Large amount of associated subcutaneous edema noted in the chest wall, left greater than right. There is collapse of the left lung, with multiple associated left-sided rib fractures, involving at least the left posterolateral 3rd, 4th, 5th, and 6th ribs. Patchy and ill-defined opacities are noted in the lower lungs bilaterally, which may represent contusions, atelectasis, or aspiration. Heart size and mediastinal contours are unremarkable. No significant mediastinal shift appreciated. IMPRESSION: 1. MODERATE TO LARGE LEFT PNEUMOTHORAX WITH ASSOCIATED SUBCUTANEOUS EMPHYSEMA, MULTIPLE LEFT-SIDED RIB FRACTURES, AND COLLAPSE OF THE LEFT LUNG. 2. PATCHY BILATERAL PULMONARY OPACITIES ARE NONSPECIFIC BUT MAY REPRESENT CONTUSION, ASPIRATION, OR ATELECTASIS. 3. SUSPECTED SMALL RIGHT APICAL PNEUMOTHORAX. 4. RESULTS CALLED TO DR. SANTOS AT 14:35 HOURS ON 02/16/[address] HOWARD. ANITA/raquel Dictated 02/16/09 @ 14:42. end of result us U Unknown IMG [facility] RAD HISTORICAL Final Result documented in this encounter Visit Diagnoses Not on filedocumented in this encounter
--- OUTSIDE RECORDS SUMMARY | 2024-05-29 15:56 | XMS_ITS | Encounter Summary ---
Author Organization [place] [address] Care Team Providers Care Immunology Specialist Name Role Phone Unavailable Primary Care Provider Unavailabl e Encounter Details Date Type Department Care Team (Late st Contact Info) Description 06/16/1990 11:45 AM EST - 06/16/1990 11:59 PM EST Hospital Encounter [facility] EPIC CON UNK COV Benjamin Munson, DO [address] [place] [address] Social History Tobacco Use Types Packs/Day Years [...] EST Clinical Support [facility] [place] [facility] [address] [place] [address] 11/19/2024 1:40 PM EDT Office Visit SEP Neurology [facility] [address] [place] [address] Lyndsay Brewer DO [address] [place] [address] documented as of this encounter Visit Diagnoses Not on filedocumented in this encounter
--- OUTSIDE RECORDS SUMMARY | 2024-05-29 15:56 | XMS_ITS | Encounter Summary ---
Author Organization [place] [address] Care Team Providers Care Screen Printing Supervisor Name Role Phone Unavailable Primary Care Provider Unavailabl e Encounter Details Date Type Department Care Team (Late st Contact Info) Description 01/07/1993 7:52 AM EDT - 01/07/1993 11:59 PM EDT Hospital Encounter [facility] EPIC CON UNK EDG Mchugh, Pk Downs MD Social History Tobacco Use Types Packs/Day [...] Clinical Support [facility] [place] [facility] [address] [place] [address] 11/19/2024 1:40 PM EDT Office Visit SEP Neurology [facility] [address] [place] [address] Lyndsay Brewer, [address] [place] [address] documented as of this encounter Visit Diagnoses Not on filedocumented in this encounter
--- OUTSIDE RECORDS SUMMARY | 2024-05-29 15:56 | XMS_ITS | Encounter Summary ---
Author Organization [place] [address] Care Team Providers Care Mangle Feeder Name Role Phone Unavailable Primary Care Provider Unavailabl e Encounter Details Date Type Department Care Team (Late st Contact Info) Description 01/28/2002 11:42 AM EDT - 01/28/2002 12:45 PM EDT Hospital Encounter [facility] UNKNFTT Generic, Historical Provider Social History Tobacco Use [...] EST Clinical Support [facility] [place] [facility] [address] [place] [address] 11/19/2024 1:40 PM EDT Office Visit SEP Neurology [facility] [address] [place] [address] Lyndsay Brewer, DO [address] [place] [address] documented as of this encounter Visit Diagnoses Not on filedocumented in this encounter
--- OUTSIDE RECORDS SUMMARY | 2024-05-29 15:56 | XMS_ITS | Clinical Summary ---
Author Organization [facility] Address [address] [place] [address] Care Team Providers Care Blade Sharpener Name Role Phone Unavailable Primary Care Provider Unavailabl e Social History Tobacco Use Types Packs/Day Years Used Date Smoking Tobacco: Never Assessed Sex and Gender Information Value Date Recorded Sex Assigned at Not on file Legal Sex Male 8:42 PM EDT Gender Identity Not on file Sexual Orientation Not on file Plan of Treatment Health Maintenance Due Date Last Done Comments DTap,Tdap,and Td (1 - Tdap) 11/10/1978 Colonoscopy 11/10/2012 PSA YEARLY 11/10/2017 Shingrix (#1) 11/10/2017 Influenza Vaccine (#1) 2024 RSV Vaccine (60+ or ) (1 - 1-dose 75+ series) 11/10/2042 HPV Aged Out No longer eligi ble based on patient's age to complete this topic Meningococcal conjugate lamin nt 4 (MCV4) Aged Out No longer eligible b ased on patient's age to complete this topic Pneumococcal 0-64 Aged Out No longer eligible based on patient's age to complete this topic RSV Immunization (<20 months) Aged Out No longer eligible based on patient's age to complete this topic
--- OUTSIDE RECORDS SUMMARY | 2024-05-29 15:56 | XMS_ITS | Encounter Summary ---
Author Organization [place] [address] Care Team Providers Care Blast Furnace Keeper Name Role Phone Unavailable Primary Care Provider Unavailabl e Encounter Details Date Type Department Care Team (Late st Contact Info) Description 02/16/2004 Hospital Encounter [facility] CARDIOLOGY FTT Generic, Historical Provider Social History Tobacco [...] AM EST Clinical Support [facility] [place] [address] [place] [address] 11/19/2024 1:40 PM EDT Office Visit [facility] [address] [place] [address] Lyndsay Brewer, [address] [place] [address] documented as of this encounter Visit Diagnoses Not on filedocumented in this encounter
--- OUTSIDE RECORDS SUMMARY | 2024-05-29 15:56 | XMS_ITS | Encounter Summary ---
Author Organization [place] [address] Care Team Providers Care Sales Exhibitor Name Role Phone Unavailable Primary Care Provider Unavailabl e Encounter Details Date Type Department Care Team (Late st Contact Info) Description 07/02/2005 8:11 PM EST - 07/02/2005 9:45 PM EST Hospital Encounter [facility] EPIC CON UNK EDG Arron Walton MD Social History Tobacco Use Types Packs/Day [...] Clinical Support [facility] [address] [place] [address] 11/19/2024 1:40 PM EDT Office Visit SEP Neurology [facility] [address] [place] [address] Lyndsay Brewer, [address] [place] [address] documented as of this encounter Visit Diagnoses Not on filedocumented in this encounter
--- OUTSIDE RECORDS SUMMARY | 2024-05-29 15:56 | XMS_ITS | Encounter Summary ---
Author Organization [place] [address] Care Team Providers Care Double Bass Player Name Role Phone Unavailable Primary Care Provider Unavailabl e Encounter Details Date Type Department Care Team (Late st Contact Info) Description 10/08/2006 10:41 AM EDT - 10/08/2006 11:54 AM EDT Hospital Encounter [facility] EMERGENCY FTT Generic, Historical Provider Social History Tobacco Use Types Packs/Day Years Used Date Smoking Tobacco: Never Assessed Sex and Gender Information Value Date Recorded Sex Assigned at Not on file Legal Sex Male 8:00 PM EDT Gender Identity Not on file Sexual Orientation Not on file documented as of this encounter ED Notes * Unknown, Unknown - 10/30/2009 3:12 AM EDT documented in this encounter Plan of Treatment Upcoming Encounters Date Type Department Care Team (Late st Contact Info) Description 06/28/2024 9:40 AM EST Clinical Support [facility] [address] [place] [id number] 11/19/2024 1:40 PM EDT Office Visit SEP Neurology [facility] [address] [place] [address] Lyndsay Brewer DO [address] [place] [address] Scheduled Orders Name Type Priority Associated Diagnoses Orde r Schedule XR ELBOW, MIN 3 VIEWS LT Imaging Routine Once for 1 Occur rences starting 10/09/2009 until 10/09/2009, 1 completed documented as of this encounter Procedures Procedure Name Priority Date/Time Associated Diagnosis Comments DIAG ELBOW, MIN 3 VIEWS LT Routine 10/08/2006 12:00 AM EDT documented in this encounter Results * XR ELBOW, MIN 3 VIEWS LT (10/08/2006 12:00 AM EDT) Anatomical Region Laterality Modality Other 10/08/2006 10/08/2006 Narrative 10/08/2006 12:00 AM EDT VERIFIED [facility] Reason: ??pain Dict.Staff: JONES ESPINOZA Verified By: JONES ESPINOZA ?Alexey: 10/09/06 ?? 7:31 am Exams: ??DIAG-ELBOW MIN 3-VIEWS LT 10-08-06 FIVE VIEW LEFT ELBOW: History: Fall. History of prior fracture. No acute fracture is seen. No joint effusion is seen. There are small well corticated bony densities in the soft tissue adjacent to the lateral humeral epicondyle. These are thought to be old avulsion fractures. ??There is bony deformity in this region consistent with healed fracture. ??There are spurs on the proximal radius and ulna. No joint space narrowing is seen. CONCLUSION: No acute abnormality seen. There are slight to moderate changes of osteoarthritis, likely superimposed on old trauma. OLGA:ps end of result Procedure Note Unknown, U - 10/09/2009 VERIFIED [facility] Reason: pain Dict.Staff: JONES ESPINOZA Verified By: JONES ESPINOZA Alexey: 10/09/06 7:31 am Exams: DIAG-ELBOW MIN 3-VIEWS LT 10-08-06 FIVE VIEW LEFT ELBOW: History: Fall. History of prior fracture. No acute fracture is seen. No joint effusion is seen. There are small well corticated bony densities in the soft tissue adjacent to the lateral humeral epicondyle. These are thought to be old avulsion fractures. There is bony deformity in this region consistent with healed fracture. There are spurs on the proximal radius and ulna. No joint space narrowing is seen. CONCLUSION: No acute abnormality seen. There are slight to moderate changes of osteoarthritis, likely superimposed on old trauma. OLGA:ps end of result us U Unknown IMG [facility] RAD HISTORICAL Final Result documented in this encounter Visit Diagnoses Not on filedocumented in this encounter
--- OUTSIDE RECORDS SUMMARY | 2024-05-29 15:56 | XMS_ITS | Encounter Summary ---
Author [place] [address] Care Team Providers Care Post Commander Name Role Phone Unavailable Primary Care Provider Unavailabl e Encounter Details Date Type Department Care Team (Late st Contact Info) Description 03/03/2003 Hospital Encounter [facility] MEDICINE FTT Generic, Historical [...] AM EST Clinical Support [facility] [address] [place] [address] 11/19/2024 1:40 PM EDT Office Visit SEP Neurology [facility] [address] [place] [address] Lyndsay Brewer, [address] [place] [address] documented as of this encounter Visit Diagnoses Not on filedocumented in this encounter
--- OUTSIDE RECORDS SUMMARY | 2024-05-29 15:56 | XMS_ITS | Encounter Summary ---
Author Organization [place] [address] Care Team Providers Care Vegetable Ii Farmworker Name Role Phone Unavailable Primary Care Provider Unavailabl e Encounter Details Date Type Department Care Team (Late st Contact Info) Description 08/04/2008 Hospital Encounter [facility] MEDICINE FTT Generic, Historical [...] AM EST Clinical Support [facility] [address] [place] [address] 11/19/2024 1:40 PM EDT Office Visit SEP Neurology [facility] [address] [place] [address] Lyndsay Brewer [address] [place] [address] Scheduled Orders Name Type Priority Associated Diagnoses Orde r Schedule XR LS SPINE 2 OR 3 VIEW Imaging Routine Once for 1 Occur rences starting 10/09/2009 until 10/09/2009, 1 completed XR CHEST PA & LAT Imaging Routine Once fo r 1 Occurrences starting 10/09/2009 until 10/09/2009, 1 completed documented as of this encounter Procedures Procedure Name Priority Date/Time Associated Diagnosis Comments DIAG LS SPINE 2 OR 3 VIEW Routine 08/04/2008 12:00 AM EST DIAG CHEST PA & LAT Routine 08/04/2008 1 2:00 AM EST documented in this encounter Results * XR CHEST PA & LAT (08/04/2008 12:00 AM EST) Anatomical Region Laterality Modality Other 08/04/2008 08/04/2008 Narrative 08/04/2008 12:00 AM EST Name: CHINYERE Lares : ??1965 VERIFIED [facility] Reason: ??COUGH Dict.Staff: ALONZO FINLEY [id number] Verified By: ALONZO FINLEY ? Alexey: 08/04/08 ?? 2:54 pm Exams: ??DIAG-CHEST PA & LATERAL PA AND LATERAL CHEST, TWO VIEWS, THREE IMAGES, 10:31 AM, 08-04-08, [id number]: HISTORY: ??Cough, comparison June. There is a granuloma in the left base. ??There is a small elliptical soft tissue density in the right upper lobe. ??This measures 7 mm x 15 mm. ??This lesion is unchanged from June and most likely represents an area of scarring. ??There is no failure, mass, or pneumonia. ??There is no effusion or pneumothorax. IMPRESSION: NO ACUTE CHEST DISEASE. FINLEY/rh DICTATED 08-04-08 @ 12:39 PM end of result Procedure Note Unknown, U - 10/09/2009 Name: CHINYERE Lares : 1965 VERIFIED [facility] Reason: COUGH Dict.Staff: ALONZO FINLEY [id number] Verified By: ALONZO FINLEY Alexey: 08/04/08 2:54 pm Exams: DIAG-CHEST PA & LATERAL PA AND LATERAL CHEST, TWO VIEWS, THREE IMAGES, 10:31 AM, 08-04-08, [id number]: HISTORY: Cough, comparison June. There is a granuloma in the left base. There is a small elliptical soft tissue density in the right upper lobe. This measures 7 mm x 15 mm. This lesion is unchanged from June and most likely represents an area of scarring. There is no failure, mass, or pneumonia. There is no effusion or pneumothorax. IMPRESSION: NO ACUTE CHEST DISEASE. [place]/ DICTATED 08-04-08 @ 12:39 PM end of result us U Unknown IMG [facility] RAD HISTORICAL Final Result * XR LS SPINE 2 OR 3 VIEW (08/04/2008 12:00 AM EST) Anatomical Region Laterality Modality Other 08/04/2008 08/04/2008 Narrative 08/04/2008 12:00 AM EST Name: CHINYERE Lares : ??1965 VERIFIED [facility] Reason: ??PAIN IN TAILBONE Dict.Staff: MARIA GUADALUPE RAMIREZ [id number] Verified By: KIA ALICIA ?? Alexey: 08/04/08 ?? 3:26 pm Exams: ??[id number]-CFIGS 2 OR 3-VIEWS THREE VIEW L-SPINE, 08-04-08: HISTORY: ??Pain in tailbone. IMPRESSION: IRREGULARITY OF THE ANTERIOR ASPECT OF THE SACRUM IS PRESENT AT THE L3 LEVEL. ??THIS MAY REPRESENT A NEW FRACTURE. ??FURTHER EVALUATION WITH BONE SCAN OR MRI MAY BE HELPFUL. FINDINGS FAXED TO DR. MAGANA BY DR. RAMIREZ. [place]/ DICTATED 08-04-08 @ 11:09 AM end of result Procedure Note Unknown, U - 10/09/2009 Name: CHINYERE Lares : 1965 VERIFIED [facility] Reason: PAIN IN TAILBONE Dict.Staff: MARIA GUADALUPE RAMIREZ [id number] Verified By: KIA ALICIA Alexey: 08/04/08 3:26 pm Exams: [id number] 2 OR 3-VIEWS THREE VIEW L-SPINE, 08-04-08: HISTORY: Pain in tailbone. IMPRESSION: IRREGULARITY OF THE ANTERIOR ASPECT OF THE SACRUM IS PRESENT AT THE L3 LEVEL. THIS MAY REPRESENT A NEW FRACTURE. FURTHER EVALUATION WITH BONE SCAN OR MRI MAY BE HELPFUL. FINDINGS FAXED TO DR. MAGANA BY DR. RAMIREZ. ASHLEY/shea DICTATED 08-04-08 @ 11:09 AM end of result us U Unknown [facility] HISTOR[facility] Final Result documented in this encounter Visit Diagnoses Not on filedocumented in this encounter
--- OUTSIDE RECORDS SUMMARY | 2024-05-29 15:56 | XMS_ITS | Encounter Summary ---
Author Organization [place] [address] Care Team Providers Care Solar Field Service Technician Name Role Phone Unavailable Primary Care Provider Unavailabl e Encounter Details Date Type Department Care Team (Late st Contact Info) Description 07/02/2008 Hospital Encounter [facility] MEDICINE FTT Generic, Historical [...] AM EST Clinical Support [facility] [address] [place] [address] 11/19/2024 1:40 PM EDT Office Visit SEP Neurology [facility] [address] [place] [address] Lyndsay Brewer DO [address] [place] [address] Scheduled Orders Name Type Priority Associated Diagnoses Orde r Schedule NM MYOCARDIAL PERFUSION WALL MOTION ADD Imaging Routine Once for 1 Occur rences starting 10/09/2009 until 10/09/2009, 1 completed NM MYOCARDIAL PERF MULT SPECT Imaging Routine Once for 1 Occur rences starting 10/09/2009 until 10/09/2009, 1 completed NM MYOCARDIAL PERFUSION EF ADD Imaging Routine Once for 1 Occur rences starting 10/09/2009 until 10/09/2009, 1 completed documented as of this encounter Procedures Procedure Name Priority Date/Time Associated Diagnosis Comments NM MYOCARDIAL PERFUSION EF ADD Routine 07/02/2008 12:00 AM EST NM MYOCARDIAL PERFUSION WALL MOTION ADD Routine 07/02/2008 12:00 AM EST NM MYOCARDIAL PERF MULT SPECT Routine 07/02/2008 12:00 AM EST documented in this encounter Results * NM MYOCARDIAL PERFUSION EF ADD (07/02/2008 12:00 AM EST) Anatomical Region Laterality Modality Other 07/02/2008 07/02/2008 Narrative 07/02/2008 12:00 AM EST Name: NIELS Lares KATE: ??1965 VERIFIED [facility] Reason: ??MOMIN Dict.Staff: ALTA YI [id number] Verified By: ALTA YI ?Alexey: 07/02/08 ?? 4:56 pm Exams: ??NM-MYOCARDIAL PERF MULT SPECT NM-RENEE PERF WALL MOTION ADD GATED STRESS AND REST CARDIAC SPECT WITH GATED WALL MOTION ANALYSIS AND CALCULATED EJECTION FRACTION: 07/02/08 HISTORY: DYSPNEA ON EXERTION Treadmill exercise stress achieving target heart rate. Stress EKG reportedly negative for ischemia. 13.0mCi Tc 99 Myoview rest cardiac SPECT: 41.9mCi Tc 99 Myoview stress cardiac SPECT: Small inferior defect is more prominent on rest rather than stress imaging. No other significant perfusion defect seen. No significant LV regional wall motion abnormality is seen. LV end diastolic volume, 121ml, end systolic volume 45ml for a calculated LVEF of 63%. IMPRESSION: 1. NO SCINTIGRAPHIC EVIDENCE OF STRESS INDUCED ISCHEMIA. 2. SMALL INFERIOR DEFECT MORE PROMINENT ON THE LEFT AND LIKELY ARTIFACT. 3. WALL MOTION AND LVEF APPEAR PRESERVED. KD/fidencio DICTATED ON JULY 02, 2008 @14:35 HOURS. end of result Procedure Note Unknown, U - 10/09/2009 Name: NIELS Lares : 1965 VERIFIED [facility] Reason: MOMIN Dict.Staff: ALTA YI [id number] Verified By: ALTA YI Alexey: 07/02/08 4:56 pm Exams: NM-MYOCARDIAL PERF MULT SPECT NM-RENEE PERF WALL MOTION ADD GATED STRESS AND REST CARDIAC SPECT WITH GATED WALL MOTION ANALYSIS AND CALCULATED EJECTION FRACTION: 07/02/08 HISTORY: DYSPNEA ON EXERTION Treadmill exercise stress achieving target heart rate. Stress EKG reportedly negative for ischemia. 13.0mCi Tc 99 Myoview rest cardiac SPECT: 41.9mCi Tc 99 Myoview stress cardiac SPECT: Small inferior defect is more prominent on rest rather than stress imaging. No other significant perfusion defect seen. No significant LV regional wall motion abnormality is seen. LV end diastolic volume, 121ml, end systolic volume 45ml for a calculated LVEF of 63%. IMPRESSION: 1. NO SCINTIGRAPHIC EVIDENCE OF STRESS INDUCED ISCHEMIA. 2. SMALL INFERIOR DEFECT MORE PROMINENT ON THE LEFT AND LIKELY ARTIFACT. 3. WALL MOTION AND LVEF APPEAR PRESERVED. KD/fidencio DICTATED ON JULY 02, 2008 @14:35 HOURS. end of result us U Unknown IMG [facility] RAD HISTORICAL Final Result * NM MYOCARDIAL PERF MULT SPECT (07/02/2008 12:00 AM EST) Anatomical Region Laterality Modality Other 07/02/2008 07/02/2008 Narrative 07/02/2008 12:00 AM EST Name: NIELS Lares : ??1965 VERIFIED [facility] Reason: ??MOMIN Dict.Staff: ALTA YI [id number] Verified By: ALTA YI ?Alexey: 07/02/08 ?? 4:56 pm Exams: ??NM-MYOCARDIAL PERF MULT SPECT NM-RENEE PERF WALL MOTION ADD GATED STRESS AND REST CARDIAC SPECT WITH GATED WALL MOTION ANALYSIS AND CALCULATED EJECTION FRACTION: 07/02/08 HISTORY: DYSPNEA ON EXERTION Treadmill exercise stress achieving target heart rate. Stress EKG reportedly negative for ischemia. 13.0mCi Tc 99 Myoview rest cardiac SPECT: 41.9mCi Tc 99 Myoview stress cardiac SPECT: Small inferior defect is more prominent on rest rather than stress imaging. No other significant perfusion defect seen. No significant LV regional wall motion abnormality is seen. LV end diastolic volume, 121ml, end systolic volume 45ml for a calculated LVEF of 63%. IMPRESSION: 1. NO SCINTIGRAPHIC EVIDENCE OF STRESS INDUCED ISCHEMIA. 2. SMALL INFERIOR DEFECT MORE PROMINENT ON THE LEFT AND LIKELY ARTIFACT. 3. WALL MOTION AND LVEF APPEAR PRESERVED. KD/fidencio DICTATED ON JULY 02, 2008 @14:35 HOURS. end of result Procedure Note Unknown, U - 10/09/2009 Name: NIELS Lares : 1965 VERIFIED [facility] Reason: MOMIN Dict.Staff: ALTA YI [id number] Verified By: ALTA YI Alexey: 07/02/08 4:56 pm Exams: NM-MYOCARDIAL PERF MULT SPECT NM-RENEE PERF WALL MOTION ADD GATED STRESS AND REST CARDIAC SPECT WITH GATED WALL MOTION ANALYSIS AND CALCULATED EJECTION FRACTION: 07/02/08 HISTORY: DYSPNEA ON EXERTION Treadmill exercise stress achieving target heart rate. Stress EKG reportedly negative for ischemia. 13.0mCi Tc 99 Myoview rest cardiac SPECT: 41.9mCi Tc 99 Myoview stress cardiac SPECT: Small inferior defect is more prominent on rest rather than stress imaging. No other significant perfusion defect seen. No significant LV regional wall motion abnormality is seen. LV end diastolic volume, 121ml, end systolic volume 45ml for a calculated LVEF of 63%. IMPRESSION: 1. NO SCINTIGRAPHIC EVIDENCE OF STRESS INDUCED ISCHEMIA. 2. SMALL INFERIOR DEFECT MORE PROMINENT ON THE LEFT AND LIKELY ARTIFACT. 3. WALL MOTION AND LVEF APPEAR PRESERVED. KD/fidencio DICTATED ON JULY 02, 2008 @14:35 HOURS. end of result us U Unknown [facility] RAD HISTORICAL Final Result * NM MYOCARDIAL PERFUSION WALL MOTION ADD (07/02/2008 12:00 AM EST) Anatomical Region Laterality Modality Other 07/02/2008 07/02/2008 Narrative 07/02/2008 12:00 AM EST Name: NIELS Lares : ??1965 VERIFIED [facility] Reason: ??MOMIN Dict.Staff: ALTA YI [id number] Verified By: ALTA YI ?Alexey: 07/02/08 ?? 4:56 pm Exams: ??NM-MYOCARDIAL PERF MULT SPECT NM-RENEE PERF WALL MOTION ADD GATED STRESS AND REST CARDIAC SPECT WITH GATED WALL MOTION ANALYSIS AND CALCULATED EJECTION FRACTION: 07/02/08 HISTORY: DYSPNEA ON EXERTION Treadmill exercise stress achieving target heart rate. Stress EKG reportedly negative for ischemia. 13.0mCi Tc 99 Myoview rest cardiac SPECT: 41.9mCi Tc 99 Myoview stress cardiac SPECT: Small inferior defect is more prominent on rest rather than stress imaging. No other significant perfusion defect seen. No significant LV regional wall motion abnormality is seen. LV end diastolic volume, 121ml, end systolic volume 45ml for a calculated LVEF of 63%. IMPRESSION: 1. NO SCINTIGRAPHIC EVIDENCE OF STRESS INDUCED ISCHEMIA. 2. SMALL INFERIOR DEFECT MORE PROMINENT ON THE LEFT AND LIKELY ARTIFACT. 3. WALL MOTION AND LVEF APPEAR PRESERVED. KD/fidencio DICTATED ON JULY 02, 2008 @14:35 HOURS. end of result Procedure Note Unknown, U - 10/09/2009 Name: NIELS Lares : 1965 VERIFIED [facility] Reason: MOMIN Dict.Staff: ALTA YI [id number] Verified By: ALTA YI Alexey: 07/02/08 4:56 pm Exams: NM-MYOCARDIAL PERF MULT SPECT NM-RENEE PERF WALL MOTION ADD GATED STRESS AND REST CARDIAC SPECT WITH GATED WALL MOTION ANALYSIS AND CALCULATED EJECTION FRACTION: 07/02/08 HISTORY: DYSPNEA ON EXERTION Treadmill exercise stress achieving target heart rate. Stress EKG reportedly negative for ischemia. 13.0mCi Tc 99 Myoview rest cardiac SPECT: 41.9mCi Tc 99 Myoview stress cardiac SPECT: Small inferior defect is more prominent on rest rather than stress imaging. No other significant perfusion defect seen. No significant LV regional wall motion abnormality is seen. LV end diastolic volume, 121ml, end systolic volume 45ml for a calculated LVEF of 63%. IMPRESSION: 1. NO SCINTIGRAPHIC EVIDENCE OF STRESS INDUCED ISCHEMIA. 2. SMALL INFERIOR DEFECT MORE PROMINENT ON THE LEFT AND LIKELY ARTIFACT. 3. WALL MOTION AND LVEF APPEAR PRESERVED. KD/fidencio DICTATED ON JULY 02, 2008 @14:35 HOURS. end of result us U Unknown IMG [facility] RAD HISTORICAL Final Result documented in this encounter Visit Diagnoses Not on filedocumented in this encounter
--- OUTSIDE RECORDS SUMMARY | 2024-05-29 15:56 | XMS_ITS | Encounter Summary ---
Author Organization [facility] Address [address] [place] [address] [place] [address] Phone Care Team Providers Care Product Communications Manager Name Role Phone Unavailable Primary Care Provider Unavailabl e Encounter Details Date Type Department Care Team (Late st Contact Info) Description 02/15/1999 - 02/15/1999 11:59 PM EDT Hospital Encounter &NEDFT [address] [place] [address] [place] [address] [place], [place] [id number] Discharge Disposition: Home or Self Care Social History Tobacco Use Types Packs/Day Years Used Date Smoking Tobacco: Never Assessed Sex and Gender Information Value Date Recorded Sex Assigned at Not on file Legal Sex Male 8:42 PM EDT Gender Identity Not on file Sexual Orientation Not on file documented as of this encounter ED Notes * Oni Lehman MD - 02/18/1999 12:00 AM EDT [place], [place] [address] Emergency Room Report Date: 02/15/99 Name: ZUHAIR WHITLOCK Unit #: [id number] Loc: BNED Doctor: Oni Momin (ER) Dominik Adm Physician: . CHIEF COMPLAINT: Thumb injury. HISTORY: The patient is a 33-year old male who hit his left thumb on the blade of a table saw. Denies any other injuries. PAST MEDICAL HISTORY: Unremarkable except for asthma. CURRENT MEDICATIONS: Albuterol, Singulair, Flovent. PHYSICAL EXAMINATION: 33-year old male. VITAL SIGNS: Afebrile. Vital signs stable. LEFT THUMB: Has a jagged 3 cm laceration along the flexor surface of the distal phalanx. It did not enter the nail bed. It was carefully explored. There was no foreign body present. The wound did not extend down to the level of the tendon. He had good neurovascular function. The thumb had a digital block with Bupivacaine. Had good anesthesia. Then the area was cleansed and irrigated. The skin was then closed with 5-0 Nylon times 8 simple interrupted sutures that are to be removed in one week. Standard wound care instructions were given. ASSESSMENT: 3 cm thumb laceration. PLAN: As above. Dictated by: Oni Momin (ER) Dominik THOMASON 1200 documented in this encounter Plan of Treatment Not on file documented as of this encounter Visit Diagnoses Not on filedocumented in this encounter
--- OUTSIDE RECORDS SUMMARY | 2024-05-29 15:56 | XMS_ITS | Encounter Summary ---
Author Organization [place] [address] Care Team Providers Care Sleep Technician Name Role Phone Unavailable Primary Care Provider Unavailabl e Encounter Details Date Type Department Care Team (Late st Contact Info) Description 01/21/2008 - 04/25/2008 Hospital Encounter [facility] ORTHOPEDICS FTT Generic, Historical Provider Social History Tobacco [...] EST Clinical Support [facility] [address] [place] [phone] 11/19/2024 1:40 PM EDT Office Visit SEP Neurology [facility] [address] [place] [address] Lyndsay Brewer DO [address] [place] [address] documented as of this encounter Visit Diagnoses Not on filedocumented in this encounter
--- OUTSIDE RECORDS SUMMARY | 2024-05-29 15:56 | XMS_ITS | Encounter Summary ---
Author Organization [place] [address] Care Team Providers Care Foundry Molder Name Role Phone Unavailable Primary Care Provider Unavailabl e Encounter Details Date Type Department Care Team (Late st Contact Info) Description 01/02/2008 4:08 PM EDT - 01/02/2008 11:59 PM EDT Hospital Encounter [facility] LAB GRT Aristeo Jorgensen MD [address] [place] [address] [address] [place] [address] Social History Tobacco Use Types [...] EST Clinical Support [facility] [address] [place] [address] 11/19/2024 1:40 PM EDT Office Visit SEP Neurology [facility] [address] [place] [address] Lyndsay Brewer DO [address] [facility] [address] [place] [address] documented as of this encounter Visit Diagnoses Not on filedocumented in this encounter
--- OUTSIDE RECORDS SUMMARY | 2024-05-29 15:56 | XMS_ITS | Encounter Summary ---
Author Organization [place] [address] Care Team Providers Care Calendering Supervisor Name Role Phone Unavailable Primary Care Provider Unavailabl e Encounter Details Date Type Department Care Team (Late st Contact Info) Description 08/07/2008 2:50 PM EST - 08/07/2008 11:59 PM EST Hospital Encounter HST IMAGING [facility] EDG Francine Suárez MD [address] [place] [address] [phone] (Fax) Social History Tobacco Use Types Packs/Day Years [...] AM EST Clinical Support [facility] [address] [place] [address] 11/19/2024 1:40 PM EDT Office Visit SEP Neurology [facility] [address] [place] [address] Lyndsay Brewer DO [address] [facility] [address] [place] [address] Scheduled Orders Name Type Priority Associated Diagnoses Orde r Schedule MR LUMBAR SPINE W/O KA MRI Imaging Routine Once for 1 Occur rences starting 09/03/2009 until 09/03/2009, 1 completed documented as of this encounter Procedures Procedure Name Priority Date/Time Associated Diagnosis Comments KA MRI LUMBAR SPINE W/O Routine 08/07/2008 3:09 PM EST documented in this encounter Results * MR LUMBAR SPINE W/O KA MRI (08/07/2008 3:09 PM EST) Anatomical Region Laterality Modality Other 08/07/2008 3:09 PM EST Narrative 08/07/2008 7:46 PM EST PROCEDURE- ??MRI of the lumbar spine PROCEDURE DATE- ??08/07/2008 INDICATION- ??Low back pain and concern for fracture. HISTORY- ??Low back pain and concern for fracture. TECHNIQUE- ??Long and short imaging parameters were obtained in the sagittal and axial orientation. FINDINGS- ??Examination demonstrate bony edema involving the anterior superior endplate of L4 consistent with mild wedging fracture. ??No significant loss of the vertebral body is seen however. ??No other fractures are seen. ??There is no diffuse marrow abnormality. ??The L1-L2 and L2-L3 levels are intact. ??At L3-L4 there is disc bulging, spondylosis and facet disease. ??The disease at this level has leftward preference. ??However, even the left neural foramen is grossly capacious and the nerve root exit is uninhibited. ??Similar disease at L4-L5 is of questionable architectural significance as well. ??At L5-S1 there is disc bulging with anular tear, spondylosis and facet disease. ??No central nerve root deviation is noted. ??Despite mild foraminal narrowing at the inlets, the nerve roots appear to exit grossly uninhibited and surrounded by fat. IMPRESSION- 1. Disc bulge with anular tear, spondylosis and facet disease at L5-S1 of questionable architectural significance. 2. Spondylosis, disc bulging and facet disease at L3-L4 and L4-L5 of questionable architectural significance. 3. Small area of abnormal signal intensity involving the superior anterior endplate of L4 consistent with mild fracture abnormality, although no loss of vertebral body height is seen. ? Ballistics Expert Forensic- SJ AVILA ? Reading Physician- REGINALD SMALL ??M.D. ? Released Date Time- 08/08/08 0231 Procedure Note Melani Reginald Gama - 09/03/2009 PROCEDURE- MRI of the lumbar spine PROCEDURE DATE- 08/07/2008 INDICATION- Low back pain and concern for fracture. HISTORY- Low back pain and concern for fracture. TECHNIQUE- Long and short imaging parameters were obtained in the sagittal and axial orientation. FINDINGS- Examination demonstrate bony edema involving the anterior superior endplate of L4 consistent with mild wedging fracture. No significant loss of the vertebral body is seen however. No other fractures are seen. There is no diffuse marrow abnormality. The L1-L2 and L2-L3 levels are intact. At L3-L4 there is disc bulging, spondylosis and facet disease. The disease at this level has leftward preference. However, even the left neural foramen is grossly capacious and the nerve root exit is uninhibited. Similar disease at L4-L5 is of questionable architectural significance as well. At L5-S1 there is disc bulging with anular tear, spondylosis and facet disease. No central nerve root deviation is noted. Despite mild foraminal narrowing at the inlets, the nerve roots appear to exit grossly uninhibited and surrounded by fat. IMPRESSION- 1. Disc bulge with anular tear, spondylosis and facet disease at L5-S1 of questionable architectural significance. 2. Spondylosis, disc bulging and facet disease at L3-L4 and L4-L5 of questionable architectural significance. 3. Small area of abnormal signal intensity involving the superior anterior endplate of L4 consistent with mild fracture abnormality, although no loss of vertebral body height is seen. Ballistics Expert Forensic- SJ Blancas Physician- REGINALD SMALL M.D. Released Date Time- 08/08/08230 us Francine Suárez MD [facility] HISTORICAL Final Result documented in this encounter Visit Diagnoses Not on filedocumented in this encounter
--- OUTSIDE RECORDS SUMMARY | 2024-05-29 15:56 | XMS_ITS | Encounter Summary ---
Author Organization [place] [address] Care Team Providers Care Warranty Coordinator Name Role Phone Unavailable Primary Care Provider Unavailabl e Encounter Details Date Type Department Care Team (Late st Contact Info) Description 01/09/2008 2:01 PM EDT - 01/09/2008 11:59 PM EDT Hospital Encounter HST LAB GRT Aristeo Jorgensen MD [address] [place] [address] [address]rd [place] [address] Social History Tobacco Use Types [...] 06/28/2024 9:40 AM EST Clinical Support [facility] [address] [place] [address] 11/19/2024 1:40 PM EDT Office Visit SEP Neurology [facility] [address] [place] [address] Lyndsay Brewer DO [address] [facility] [address] [place] [address] documented as of this encounter Visit Diagnoses Not on filedocumented in this encounter
--- OUTSIDE RECORDS SUMMARY | 2024-05-29 15:56 | XMS_ITS | Encounter Summary ---
Author Organization [place] [address] Care Team Providers Care Turkish Rubber Name Role Phone Unavailable Primary Care Provider Unavailabl e Encounter Details Date Type Department Care Team (Late st Contact Info) Description 10/15/2007 6:31 PM EDT - 10/15/2007 11:59 PM EDT Hospital Encounter HST LAB EDG Francine Suárez MD [address] [place] [address] [phone] (Fax) Social History Tobacco Use Types Packs/Day [...] EST Clinical Support [facility] [address] [place] [address] 11/19/2024 1:40 PM EDT Office Visit SEP Neurology [facility] [address] [place] [address] Lyndsay Brewer DO [address] [place] [address] documented as of this encounter Visit Diagnoses Not on filedocumented in this encounter
--- OUTSIDE RECORDS SUMMARY | 2024-05-29 15:56 | XMS_ITS | Encounter Summary ---
Author Organization [place] [address] Care Team Providers Care Plant Ecologist Name Role Phone Unavailable Primary Care Provider Unavailabl e Encounter Details Date Type Department Care Team (Late st Contact Info) Description 01/13/1998 3:27 PM EDT - 01/13/1998 11:59 PM EDT Hospital Encounter HST SDS EDG Genaro Bhatt MD [address] [place] [address] Social History Tobacco Use Types [...] EST Clinical Support [facility] [address] [place] [address] 11/19/2024 1:40 PM EDT Office Visit SEP Neurology [facility] [address] [place] [address] Lyndsay Brewer DO [address] [place] [address] [address] documented as of this encounter Visit Diagnoses Not on filedocumented in this encounter
--- OUTSIDE RECORDS SUMMARY | 2024-05-29 15:56 | XMS_ITS | Encounter Summary ---
Author Organization [place] [address] Care Team Providers Care Nurse Auditor Name Role Phone Unavailable Primary Care Provider Unavailabl e Encounter Details Date Type Department Care Team (Late st Contact Info) Description 04/10/1997 3:40 PM EDT - 04/15/1997 12:15 PM EDT Hospital Encounter HST 2CO Kenny Gandhi MD [address] [place] [address] Social History Tobacco Use Types Packs/Day Years Used Date Smoking Tobacco: Never Assessed Sex and Gender Information Value Date Recorded Sex Assigned at Not on file Legal Sex Male 8:00 PM EDT Gender Identity Not on file Sexual Orientation Not on file documented as of this encounter H&P Notes * Unknown, U - 01/19/2010 4:15 AM EDT documented in this encounter Plan of Treatment Upcoming Encounters Date Type Department Care Team (Late st Contact Info) Description 06/28/2024 9:40 AM EST Clinical Support [facility] [address] [place] [phone] 11/19/2024 1:40 PM EDT Office Visit SEP Neurology [facility] [address] [place] [address] Lyndsay Brewer, [address] [place] [address] documented as of this encounter Visit Diagnoses Not on filedocumented in this encounter
--- OUTSIDE RECORDS SUMMARY | 2024-05-29 15:56 | XMS_ITS | Encounter Summary ---
Author Organization [place] [address] Care Team Providers Care Clinical Research Associate Name Role Phone Unavailable Primary Care Provider Unavailabl e Encounter Details Date Type Department Care Team (Late st Contact Info) Description 06/13/2008 3:32 PM EST - 06/13/2008 11:59 PM EST Hospital Encounter HST LAB EDG Francine Suárez MD [address] [place] [address] [phone] (Fax) Social History Tobacco Use Types Packs/Day [...] EST Clinical Support [facility] [address] [place] [address] 11/19/2024 1:40 PM EDT Office Visit SEP Neurology [facility] [address] [place] [address] Lyndsay Brewer DO [address] [facility] [address] [place] [address] documented as of this encounter Visit Diagnoses Not on filedocumented in this encounter
--- OUTSIDE RECORDS SUMMARY | 2024-05-29 15:56 | XMS_ITS | Encounter Summary ---
Author Organization [place] [address] Care Team Providers Care Productivity Engineer Name Role Phone Unavailable Primary Care Provider Unavailabl e Encounter Details Date Type Department Care Team (Late st Contact Info) Description 01/23/2008 12:27 PM EDT - 01/23/2008 11:59 PM EDT Hospital Encounter HST LAB GRT Aristeo Jorgensen MD [address] [place] [address] 3rd [place] [address] Social History Tobacco Use Types [...] EST Clinical Support [facility] [address] [place] [address] 11/19/2024 1:40 PM EDT Office Visit SEP Neurology [facility] [address] [place] [address] Lyndsay Brewer DO [address] [facility] [address] [place] [address] documented as of this encounter Visit Diagnoses Not on filedocumented in this encounter
--- OUTSIDE RECORDS SUMMARY | 2024-05-29 15:56 | XMS_ITS | Encounter Summary ---
Author Organization [place] [address] Care Team Providers Care Fertilizer Supervisor Name Role Phone Unavailable Primary Care Provider Unavailabl e Encounter Details Date Type Department Care Team (Late st Contact Info) Description 02/02/1998 9:10 AM EDT - 02/02/1998 4:20 PM EDT Hospital Encounter HST Genaro Bergeron MD [address] [place] [address] Social History Tobacco Use Types Packs/Day Years Used Date Smoking Tobacco: Never Assessed Sex and Gender Information Value Date Recorded Sex Assigned at Not on file Legal Sex Male 8:00 PM EDT Gender Identity Not on file Sexual Orientation Not on file documented as of this encounter H&P Notes * Unknown, U - 01/20/2010 4:09 PM EDT documented in this encounter Plan of Treatment Upcoming Encounters Date Type Department Care Team (Late st Contact Info) Description 06/28/2024 9:40 AM EST Clinical Support [facility] [address] [place] [phone] 11/19/2024 1:40 PM EDT Office Visit SEP Neurology [facility] [address] [place] [address] Lyndsay Brewer, DO [address] [place] [address] documented as of this encounter Visit Diagnoses Not on filedocumented in this encounter
--- OUTSIDE RECORDS SUMMARY | 2024-05-29 15:56 | XMS_ITS | Encounter Summary ---
Author Organization [place] [address] Care Team Providers Care Slide Fastener Chain Assembler Name Role Phone Unavailable Primary Care Provider Unavailabl e Encounter Details Date Type Department Care Team (Late st Contact Info) Description 02/06/1998 10:57 AM EDT - 05/27/1998 Hospital Encounter HST SPM EDG Genaro Bhatt MD [address] [place] [address] Social History Tobacco Use Types [...] EST Clinical Support [facility] [address] [place] [address] 11/19/2024 1:40 PM EDT Office Visit SEP Neurology [facility] [address] [place] [address] Lyndsay Brewer DO [address] [facility] [address] [place] [address] documented as of this encounter Visit Diagnoses Not on filedocumented in this encounter
--- OUTSIDE RECORDS SUMMARY | 2024-05-29 15:56 | XMS_ITS | Encounter Summary ---
Author Organization [place] [address] Care Team Providers Care Automation Engineering Technician Name Role Phone Unavailable Primary Care Provider Unavailabl e Encounter Details Date Type Department Care Team (Late st Contact Info) Description 11/12/2007 5:45 AM EDT - 11/12/2007 11:30 AM EDT Hospital Encounter HST Aristeo Adams MD [address] [place] [address] 3[address] [place] [address] Social History Tobacco Use Types Packs/Day Years Used Date Smoking Tobacco: Never Assessed Sex and Gender Information Value Date Recorded Sex Assigned at Not on file Legal Sex Male 8:00 PM EDT Gender Identity Not on file Sexual Orientation Not on file documented as of this encounter H&P Notes * Unknown, U - 02/03/2010 4:14 AM EDT documented in this encounter Procedure Notes * Unknown, U - 02/03/2010 3:01 AM EDTAssociated Order(s): SCANNED OR REPORT documented in this encounter Plan of Treatment Upcoming Encounters Date Type Department Care Team (Late st Contact Info) Description 06/28/2024 9:40 AM EST Clinical Support [facility] [address] [employer] [place] [address] 11/19/2024 1:40 PM EDT Office Visit SEP Neurology [facility] [address] [place] [address] Lyndsay Brewer Polina, DO [address] [place] [address] Scheduled Orders Name Type Priority Associated Diagnoses Orde r Schedule EK EKG REG Imaging Cardiology Routine Once f or 1 Occurrences starting 09/03/2009 until 09/03/2009, 1 completed documented as of this encounter Procedures Procedure Name Priority Date/Time Associated Diagnosis Comments SCANNED OR REPORT 02/03/2010 12: 00 AM EDT EK EKG REG Routine 11/06/2007 9:55 AM EDT documented in this encounter Results * SCANNED OR REPORT (02/03/2010 12:00 AM EDT) Narrative 02/03/2010 11:30 AM EDT Ordered by an unspecified provider. Transcriptions Unknown, U - 02/03/2010 3:01 AM EDT us U Unknown PROCEDURE/MINOR SURGICAL ORDERAB LES Final Result * EK EKG REG (11/06/2007 9:55 AM EDT) Anatomical Region Laterality Modality Other 11/06/2007 9:55 AM EDT Narrative 11/06/2007 2:52 PM EDT Sinus rhythm. Normal ECG ? Investigations DirectorStephanie MALAGON ? Reading Rubio MALAGON ? Released Date Time- 11/06/071451 Procedure Benjamin Crawford - 09/03/2009 Sinus rhythm. Normal ECG Investigations Directorkarlie MALAGON Released Date Time- 11/06/071451 [facility] al Result documented in this encounter Visit Diagnoses Not on filedocumented in this encounter
--- OUTSIDE RECORDS SUMMARY | 2024-05-29 15:56 | XMS_ITS | Encounter Summary ---
Author Organization [place] [address] Care Team Providers Care Procedural Nurse Name Role Phone Unavailable Primary Care Provider Unavailabl e Encounter Details Date Type Department Care Team (Late st Contact Info) Description 03/07/1990 11:05 AM EDT - 03/07/1990 11:59 PM EDT Hospital Encounter HST EPIC CON UNK COV Mchugh, Pk Downs MD Social History Tobacco [...] Clinical Support [facility] [address] [place] [address] 11/19/2024 1:40 PM EDT Office Visit SEP Neurology [facility] [address] [place] [address] Lyndsay Brewer, [address] [place] [address] documented as of this encounter Visit Diagnoses Not on filedocumented in this encounter
--- OUTSIDE RECORDS SUMMARY | 2024-05-29 15:56 | XMS_ITS | Encounter Summary ---
Author Organization [place] [address] Care Team Providers Care Inspector Open Die Name Role Phone Unavailable Primary Care Provider Unavailabl e Encounter Details Date Type Department Care Team (Late st Contact Info) Description 12/26/2007 11:45 AM EDT - 12/26/2007 11:59 PM EDT Hospital Encounter HST LAB GRT Aristeo Jorgensen MD [address] [place] [address] 3rd [place] [address] Social History Tobacco Use Types [...] EST Clinical Support [facility] [address] [place] [address] 11/19/2024 1:40 PM EDT Office Visit SEP Neurology [facility] [address] [place] [address] Lyndsay Brewer DO [address] [facility] [address] [place] [address] documented as of this encounter Visit Diagnoses Not on filedocumented in this encounter
--- OUTSIDE RECORDS SUMMARY | 2024-05-29 15:56 | XMS_ITS | Encounter Summary ---
Author Organization [place] [address] Care Team Providers Care Apparatus Operator Name Role Phone Unavailable Primary Care Provider Unavailabl e Encounter Details Date Type Department Care Team (Late st Contact Info) Description 09/09/2008 4:32 PM EDT - 09/09/2008 11:59 PM EDT Hospital Encounter HST LAB EDG Francine Suárez MD [address] [place] [address] [phone] (Fax) Social History Tobacco Use Types Packs/Day [...] EST Clinical Support [facility] [address] [place] [address] 11/19/2024 1:40 PM EDT Office Visit SEP Neurology [facility] [address] [place] [address] Lyndsay Brewer DO [address] [place] [address] documented as of this encounter Visit Diagnoses Not on filedocumented in this encounter
--- OUTSIDE RECORDS SUMMARY | 2024-05-29 15:56 | XMS_ITS | Encounter Summary ---
Author Organization [facility] Address [address] [place] [address] [place] [address] Phone Care Team Providers Care Dried Fruit Washer Name Role Phone Unavailable Primary Care Provider Unavailabl e Encounter Details Date Type Department Care Team (Late st Contact Info) Description 09/28/2004 - 09/28/2004 11:59 PM EDT Hospital Encounter [facility] [address] [place] [address] Alok Elliott MD [address] [facility] [place], [place] [id number] Discharge Disposition: Home or Self Care Social History Tobacco Use Types Packs/Day Years Used Date Smoking Tobacco: Never Assessed Sex and Gender Information Value Date Recorded Sex Assigned at Not on file Legal Sex Male 8:42 PM EDT Gender Identity Not on file Sexual Orientation Not on file documented as of this encounter Miscellaneous Notes * Operative Report - Alok Elliott MD - 09/28/2004 12:00 AM EDT This document is confidential medical information. Unauthorized disclosure or use of this information is prohibited by law. If you are not the intended recipient of this document, please advise us by calling immediately [phone]. [place], [place] [address] Operative Report Date: 09/28/04 Name: ZUHAIR BOWSER Unit #: [id number] Loc: [facility] Doctor: Alok Elliott M.D. 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 PROCEDURE: Scleral buckle. Cryoretinopexy. External drainage of subretinal fluid. 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 After the risks, benefits, alternatives and complications of ocular surgery for attempted anatomical and visual rehabilitation of the right eye were discussed, he gave his informed consent and requested that we proceed with surgery. The risks discussed included, but were not limited to, loss of life, loss of vision, loss of the eye, infection, hemorrhage, retinal tear, retinal detachment, epiretinal membrane formation, dislocation of intraocular lens, corneal decompensation, glaucoma, ocular motility problems, optic nerve problems, pupillary abnormalities, vascular defects, visual field defects, ptosis and the fact that there can occasionally be unforeseen complications associated with any surgical procedure. DESCRIPTION OF THE PROCEDURE: The patient was brought into the operating room and placed on the operating room table in the supine position. After general anesthesia was induced by the Anesthesia Service, the right eye was prepped and draped for eye surgery in the usual sterile fashion. A lid speculum was inserted. A 360-dgree conjunctival peritomy was performed with Ayush scissors. Tenon's capsule was opened in all four quadrants and each of the rectus muscles was hooked with a muscle hook and isolated with a 2-0 silk ligature. A 360-degree scleral depressed examination was performed and the location of the retinal dialysis (from the 6:00 to 9:00 meridians) was marked with marker depressor, cold cautery and a sterile marking pen. A # 42 band was placed around the eye, the cut ends of which were affixed to one another in the superotemporal quadrant. A # 112 steel crane operator was placed under the retinal dialysis to further support this. Appropriate cryoretinopexy was placed around the retinal dialysis and the scleral buckle was then affixed to the globe using a 5-0 nylon box stitch in the superotemporal, superonasal and inferonasal quadrants and two 5-0 nylon box stitches around This document is confidential medical information. Unauthorized disclosure or use of this information is prohibited by law. If you are not the intended recipient of this document, please advise us by calling immediately [phone]. [place], [place] [address] Operative Report Name: ZUHAIR BOWSER Unit #: [id number] [facility] : 69 the buckle and the 112 steel crane operator in the inferotemporal quadrant. An external drainage of subretinal fluid was performed through the scleral buckle with the 30 gauge needle under direct visualization, resulting in an 85% drainage of subretinal fluid. Great care was taken to not get into an overlying retinoschisis cavity. Following the external drainage of subretinal fluid the laser indirect was used to laser the bed of the external drainage site on the crest of the buckle. Careful binocular indirect ophthalmoscopy was performed and confirmed the edges of the retinal dialysis to be closed on the scleral buckle and thus no intraocular gas bubble was placed. The eye was medicated with retrobulbar Marcaine on a Tri-Port needle for the sake of postoperative pain control and the scleral buckle was copiously irrigated with levofloxacin solution in all four quadrants. Tenon's capsule and the overlying conjunctiva were closed using 6-0 interrupted and running horizontal mattress plain gut sutures and the eye was medicated with subconjunctival cefazolin, subconjunctival dexamethasone, topical Cosopt and topical erythromycin ointment prior to being patched with a sterile eye patch and eye shield. Prior to patching the macula was completely attached and perfused, the optic nerve was perfused, the crystalline lens was clear, the anterior chamber was deep and the intraocular pressure was digitally confirmed to be between 15 and 20 mmHg. Mr. Bowser tolerated the procedure well and was returned to the recovery room awake, extubated and breathing spontaneous but still quite groggy, having suffered no complications. Dictated by: Alok Elliott M.D. KW [id number] documented in this encounter Plan of Treatment Not on file documented as of this encounter Visit Diagnoses Not on filedocumented in this encounter
--- OUTSIDE RECORDS SUMMARY | 2024-05-29 15:56 | XMS_ITS | Encounter Summary ---
Author Organization [place] [address] Care Team Providers Care Supervisor [place] Name Role Phone Unavailable Primary Care Provider Unavailabl e Encounter Details Date Type Department Care Team (Late st Contact Info) Description 02/02/1998 5:32 AM EDT - 02/02/1998 9:05 AM EDT Hospital Encounter [facility] Abdias Muhammad MD [address] [place] [address] [place] [address] Social History Tobacco Use Types [...] EST Clinical Support [facility] [address] [employer] [place] [address] 11/19/2024 1:40 PM EDT Office Visit [facility] [address] [place] [address] Lyndsay Brewer DO [address] [facility] [address] [place] [address] documented as of this encounter Visit Diagnoses Not on filedocumented in this encounter
--- OUTSIDE RECORDS SUMMARY | 2024-05-29 15:56 | XMS_ITS | Encounter Summary ---
Author Organization [place] [address] Care Team Providers Care Buzzsaw Operator Helper Name Role Phone Unavailable Primary Care Provider Unavailabl e Encounter Details Date Type Department Care Team (Late st Contact Info) Description 08/16/2007 1:18 PM EST - 08/16/2007 3:34 PM EST Hospital Encounter [facility] Generic, Historical Provider Social History Tobacco Use Types Packs/Day Years Used Date Smoking Tobacco: Never Assessed Sex and Gender Information Value Date Recorded Sex Assigned at Not on file Legal Sex Male 8:00 PM EDT Gender Identity Not on file Sexual Orientation Not on file documented as of this encounter ED Notes * Unknown, Unknown - 10/20/2009 6:33 AM EDT documented in this encounter Plan of Treatment Upcoming Encounters Date Type Department Care Team (Late st Contact Info) Description 06/28/2024 9:40 AM EST Clinical Support [facility] [address] [place] [address] 11/19/2024 1:40 PM EDT Office Visit [facility] Neurology [facility] [address] [place] [address] Lyndsay Brewer DO [address] [place] [address] Scheduled Orders Name Type Priority Associated Diagnoses Orde r Schedule XR KNEE MIN 4 VIEWS LT Imaging Routine Once for 1 Occur rences starting 10/09/2009 until 10/09/2009, 1 completed documented as of this encounter Procedures Procedure Name Priority Date/Time Associated Diagnosis Comments DIAG KNEE MIN 4 VIEWS LT Routine 08/16/2007 12:00 AM EST documented in this encounter Results * XR KNEE MIN 4 VIEWS LT (08/16/2007 12:00 AM EST) Anatomical Region Laterality Modality Other 08/16/2007 08/16/2007 Narrative 08/16/2007 12:[address] [facility] Reason: ??pain Dict.Staff: KIA ALICIA [id number] Verified By: ADRIEN ORR ?Alexey: 08/16/07 ?? 4:02 pm Exams: ??DIAG-KNEE MIN 4-VIEWS LT 08-16-07, LEFT KNEE: HISTORY: Injury with pain. There are no prior studies for comparison. There are moderate degenerative changes involving the medial compartment of the knee. ??Exam is otherwise unremarkable. ??There are no fractures and there is no effusion. IMPRESSION: DEGENERATIVE CHANGES INVOLVING THE MEDIAL COMPARTMENT. [facility]/ DICTATED 08-16-07 @14:01 end of result Procedure Note Unknown, U - 10/09/[address] [facility] Reason: pain Dict.Staff: KIA ALICIA [id number] Verified By: ADRIEN ORR Alexey: 08/16/07 4:02 pm Exams: DIAG-KNEE MIN 4-VIEWS LT 08-16-07, LEFT KNEE: HISTORY: Injury with pain. There are no prior studies for comparison. There are moderate degenerative changes involving the medial compartment of the knee. Exam is otherwise unremarkable. There are no fractures and there is no effusion. IMPRESSION: DEGENERATIVE CHANGES INVOLVING THE MEDIAL COMPARTMENT. [facility]/ DICTATED 08-16-07 @14:01 end of result us U Unknown IMG [facility] RAD HISTORICAL Final Result documented in this encounter Visit Diagnoses Not on filedocumented in this encounter
--- OUTSIDE RECORDS SUMMARY | 2024-05-29 15:56 | XMS_ITS | Referral Summary ---
Author Organization [facility] Address [address] [place] [address] [place] [address] Care Team Providers Care Mowing Machine Operator Name Role Phone Unavailable Primary [...]
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
--- OUTSIDE RECORDS SUMMARY | 2024-05-29 15:56 | XMS_ITS | Encounter Summary ---
Author Organization [place] [address] Care Team Providers Care Countersinker Name Role Phone Unavailable Primary Care Provider Unavailabl e Encounter Details Date Type Department Care Team (Late st Contact Info) Description 12/08/2007 11:37 PM EDT - 12/09/2007 4:31 AM EDT Hospital Encounter [facility] EPIC CON UNK EDG Florencio West MD [address] [place] [address] [place] [address] Social History Tobacco Use Types [...] EST Clinical Support [facility] [address] [place] [address] 11/19/2024 1:40 PM EDT Office Visit SEP Neurology [facility] [address] [place] [address] Lyndsay Brewer DO [address] [facility] [address] [place] [address] documented as of this encounter Visit Diagnoses Not on filedocumented in this encounter
--- OUTSIDE RECORDS SUMMARY | 2024-05-29 15:56 | XMS_ITS | Encounter Summary ---
Author Organization [place] [address] Care Team Providers Care Glue Cook Name Role Phone Unavailable Primary Care Provider Unavailabl e Encounter Details Date Type Department Care Team (Late st Contact Info) Description 11/15/2007 - 03/25/2008 Hospital Encounter [facility]ST PHYS MED & MARISOL FTT Generic, Historical Provider Social History Tobacco [...] EST Clinical Support [facility] [address] [place] [phone] 11/19/2024 1:40 PM EDT Office Visit SEP Neurology [facility] [address] [place] [address] Lyndsay Brewer DO [address] [place] [address] documented as of this encounter Visit Diagnoses Not on filedocumented in this encounter
--- OUTSIDE RECORDS SUMMARY | 2024-05-29 15:56 | XMS_ITS | Encounter Summary ---
Author Organization [place] [address] Care Team Providers Care Paper Cutting Machine Operator Name Role Phone Unavailable Primary Care Provider Unavailabl e Encounter Details Date Type Department Care Team (Late st Contact Info) Description 12/18/2007 12:20 AM EDT - 12/21/2007 1:20 PM EDT Hospital Encounter HST 7D Aristeo Jorgensen MD [address] [place] [address] 3rd [place] [address] Social History Tobacco Use Types Packs/Day Years Used Date Smoking Tobacco: Never Assessed Sex and Gender Information Value Date Recorded Sex Assigned at Not on file Legal Sex Male 8:00 PM EDT Gender Identity Not on file Sexual Orientation Not on file documented as of this encounter Discharge Summaries * Unknown, U - 01/20/2010 9:25 PM EDT documented in this encounter H&P Notes * Unknown, U - 02/02/2010 2:02 PM EDT documented in this encounter Procedure Notes * Unknown, U - 02/02/2010 2:01 PM EDTAssociated Order(s): SCANNED OR REPORT documented in this encounter Plan of Treatment Upcoming Encounters Date Type Department Care Team (Late st Contact Info) Description 06/28/2024 9:40 AM EST Clinical Support [facility] [address] [place] [address] 11/19/2024 1:40 PM EDT Office Visit SEP Neurology [facility] [address] [place] [address] [place] Lyndsay Harrelln, DO [address] [place] [address] Scheduled Orders Name Type Priority Associated Diagnoses Orde r Schedule EK EKG REG Imaging Cardiology Routine Once f or 1 Occurrences starting 09/03/2009 until 09/03/2009, 1 completed documented as of this encounter Procedures Procedure Name Priority Date/Time Associated Diagnosis Comments SCANNED OR REPORT 02/02/2010 12: 00 AM EDT EK EKG REG Routine 12/17/2007 5:38 PM EDT documented in this encounter Results * SCANNED OR REPORT (02/02/2010 12:00 AM EDT) Narrative 02/02/2010 2:01 PM EDT Ordered by an unspecified provider. Transcriptions Unknown, U - 02/02/2010 2:01 PM EDT us U Unknown PROCEDURE/MINOR SURGICAL ORDERAB LES Final Result * EK EKG REG (12/17/2007 5:38 PM EDT) Anatomical Region Laterality Modality Other 12/17/2007 5:38 PM EDT Narrative 12/17/2007 10:31 PM EDT PT IN PRE OP BED 17 Sinus rhythm Normal ECG ? Senior Shipping Clerk- LEN RAMON ? Reading Radiologist- LEN RAMON ? Released Date Time- 12/17/072230 Procedure Note Len Ramon - 09/03/2009 PT IN PRE OP BED 17 Sinus rhythm Normal ECG Senior Shipping Clerk- LEN RAMON MD Reading Radiologist- LEN RAMON MD Released Date Time- 12/17/07 2231 us Aristeo Jorgensen MD [facility] STAR CARD [facility] al Result documented in this encounter Visit Diagnoses Not on filedocumented in this encounter
--- OUTSIDE RECORDS SUMMARY | 2024-05-29 15:56 | XMS_ITS | Encounter Summary ---
Author Organization [place] [address] Care Team Providers Care Sales Consultant Residential Manager Name Role Phone Unavailable Primary Care Provider Unavailabl e Encounter Details Date Type Department Care Team (Late st Contact Info) Description 12/06/2007 11:18 PM EDT - 12/06/2007 11:59 PM EDT Hospital Encounter HST LAB GRT Aristeo Jorgensen MD [address] [place] [address] 3rd [place] [address] Social History Tobacco Use Types [...] Clinical Support [facility] [address] [place] [phone] 11/19/2024 1:40 PM EDT Office Visit SEP Neurology [facility] [address] [place] [address] Lyndsay Brewer DO [address] [facility] [address] [place] [address] documented as of this encounter Visit Diagnoses Not on filedocumented in this encounter
--- OUTSIDE RECORDS SUMMARY | 2024-05-29 15:56 | XMS_ITS | Encounter Summary ---
Author Organization [place] [address] Care Team Providers Care Strap Cutter Name Role Phone Unavailable Primary Care Provider Unavailabl e Encounter Details Date Type Department Care Team (Late st Contact Info) Description 05/09/1990 9:29 AM EST - 05/09/1990 11:59 PM EST Hospital Encounter HST EPIC CON UNK COV Benjamin Munson, DO [address] [place] [address] Social History Tobacco Use Types [...] EST Clinical Support [facility] [address] [place] [address] 11/19/2024 1:40 PM EDT Office Visit SEP Neurology [facility] [address] [place] [address] Lyndsay Brewer DO [address] [place] [address] documented as of this encounter Visit Diagnoses Not on filedocumented in this encounter
--- OUTSIDE RECORDS SUMMARY | 2024-05-29 15:56 | XMS_ITS | Encounter Summary ---
Author Organization [place] [address] Care Team Providers Care Flavoring Maker Name Role Phone Unavailable Primary Care Provider Unavailabl e Encounter Details Date Type Department Care Team (Late st Contact Info) Description 02/08/2008 Hospital Encounter HST MEDICINE FTT Generic, Historical [...] AM EST Clinical Support [facility] [address] [place] [address] 11/19/2024 1:40 PM EDT Office Visit SEP Neurology [facility] [address] [place] [address] Lyndsay Brewer, [address] [place] [address] documented as of this encounter Visit Diagnoses Not on filedocumented in this encounter
--- OUTSIDE RECORDS SUMMARY | 2024-05-29 15:56 | XMS_ITS | Encounter Summary ---
Author Organization [place] [address] Care Team Providers Care R D Manager Name Role Phone Unavailable Primary Care Provider Unavailabl e Encounter Details Date Type Department Care Team (Late st Contact Info) Description 12/12/2007 1:51 PM EDT - 12/12/2007 11:59 PM EDT Hospital Encounter HST LAB GRT Aristeo Jorgensen MD [address] [place] [address] 3rd Floor [place] [id number] Social History Tobacco Use Types Packs/Day Years [...] EST Clinical Support [facility] [address] [place] [phone] 11/19/2024 1:40 PM EDT Office Visit SEP Neurology [facility] [address] [place] [address] Lyndsay Brewer DO [address] [facility] [address] [place] [address] documented as of this encounter Visit Diagnoses Not on filedocumented in this encounter
--- OUTSIDE RECORDS SUMMARY | 2024-05-29 15:56 | XMS_ITS | Encounter Summary ---
Author Organization [place] [address] Care Team Providers Care Business Excellence Manager Name Role Phone Unavailable Primary Care Provider Unavailabl e Encounter Details Date Type Department Care Team (Late st Contact Info) Description 06/22/2008 11:56 AM EST - 06/22/2008 4:46 PM EST Hospital Encounter HST EMERGENCY FTT Generic, Historical Provider Social History Tobacco Use Types Packs/Day Years Used Date Smoking Tobacco: Never Assessed Sex and Gender Information Value Date Recorded Sex Assigned at Not on file Legal Sex Male 8:00 PM EDT Gender Identity Not on file Sexual Orientation Not on file documented as of this encounter ED Notes * Unknown, Unknown - 10/12/2009 9:59 AM EDT documented in this encounter Plan of Treatment Upcoming Encounters Date Type Department Care Team (Late st Contact Info) Description 06/28/2024 9:40 AM EST Clinical Support [facility] [address] [facility] [place] [address] 11/19/2024 1:40 PM EDT Office Visit SEP Neurology [facility] [address] [place] [address] Lyndsay Brewer DO [address] [place] [address] Scheduled Orders Name Type Priority Associated Diagnoses Orde r Schedule XR CHEST PA & LAT Imaging Routine Once fo r 1 Occurrences starting 10/09/2009 until 10/09/2009, 1 completed documented as of this encounter Procedures Procedure Name Priority Date/Time Associated Diagnosis Comments DIAG CHEST PA & LAT Routine 06/22/2008 1 2:00 AM EST documented in this encounter Results * XR CHEST PA & LAT (06/22/2008 12:00 AM EST) Anatomical Region Laterality Modality Other 06/22/2008 06/22/2008 Narrative 06/22/2008 12:00 AM EST Name: NIELS Lares : ??[address] [facility] Reason: ??swelling both legs Dict.Staff: RESHMA KINNEY [id number] Verified By: KIA ALICIA ?? Alexey: 06/23/08 ?? 4:32 pm Exams: ??DIAG-CHEST PA & LATERAL PA AND LATERAL CHEST 06-22-08 1507 HOURS: HISTORY: ??LEG SWELLING COMPARISON: ??07-13-04. FINDINGS: Heart size is within normal limits. ??There is a calcified granuloma in the left lower lobe. ??Stable scarring in the right lung apex. ??No acute infiltrate, pleural effusion or pneumothorax. ??No acute disease. A KINNEY/pp DICTATED ON 06-23-08 AT 0932 HOURS end of result Procedure Note Unknown, U - 10/09/2009 Name: NIELS Lares : [address] [facility] Reason: swelling both legs Dict.Staff: RESHMA KINNEY [id number] Verified By: KIA ALICIA Alexey: 06/23/08 4:32 pm Exams: DIAG-CHEST PA & LATERAL PA AND LATERAL CHEST 06-22-08 1507 HOURS: HISTORY: LEG SWELLING COMPARISON: 07-13-04. FINDINGS: Heart size is within normal limits. There is a calcified granuloma in the left lower lobe. Stable scarring in the right lung apex. No acute infiltrate, pleural effusion or pneumothorax. No acute disease. A KINNEY/pp DICTATED ON 06-23-08 AT 0932 HOURS end of result us U Unknown IMG SE LW RAD HISTORICAL Final Result documented in this encounter Visit Diagnoses Not on filedocumented in this encounter
--- OUTSIDE RECORDS SUMMARY | 2024-05-29 15:56 | XMS_ITS | Encounter Summary ---
Author Organization [place] [address] Care Team Providers Care Legal Technician Name Role Phone Unavailable Primary Care Provider Unavailabl e Encounter Details Date Type Department Care Team (Late st Contact Info) Description 11/30/2007 7:07 PM EDT - 12/04/2007 1:26 PM EDT Hospital Encounter HST 7D Aristeo Jorgensen MD [address] [place] [address] 3rd [place] [address] Social History Tobacco Use Types Packs/Day Years Used Date Smoking Tobacco: Never Assessed Sex and Gender Information Value Date Recorded Sex Assigned at Not on file Legal Sex Male 8:00 PM EDT Gender Identity Not on file Sexual Orientation Not on file documented as of this encounter Discharge Summaries * Unknown, U - 01/20/2010 12:37 PM EDT documented in this encounter Procedure Notes * Unknown, U - 02/02/2010 4:33 PM EDTAssociated Order(s): SCANNED OR REPORT documented in this encounter Consult Notes * Unknown, - 02/02/2010 4:33 PM EDT documented in this encounter Plan of Treatment Upcoming Encounters Date Type Department Care Team (Late st Contact Info) Description 06/28/2024 9:40 AM EST Clinical Support [facility] [address] [place] [phone] 11/19/2024 1:40 PM EDT Office Visit SEP Neurology [facility] [address] [place] [address] Osman Lyndsaydale Fish, DO [address] [place] [address] Scheduled Orders Name Type Priority Associated Diagnoses Orde r Schedule XR KNEE (2 VIEWS) Imaging Routine Once fo r 1 Occurrences starting 09/03/2009 until 09/03/2009, 1 completed IR PICC LINE MUCK FARMER Imaging Routine Once for 1 Occurrences starting 09/03/2009 until 09/03/2009, 1 completed documented as of this encounter Procedures Procedure Name Priority Date/Time Associated Diagnosis Comments SCANNED OR REPORT 02/02/2010 12: 00 AM EDT SP PICC LINE MUCK FARMER Routine 12/03/2007 12:5 0 PM EDT XX KNEE (2 VIEWS) Routine 12/01/2007 10: 39 AM EDT documented in this encounter Results * SCANNED OR REPORT (02/02/2010 12:00 AM EDT) Narrative 02/02/2010 4:38 PM EDT Ordered by an unspecified provider. Transcriptions Unknown, U - 02/02/2010 4:33 PM EDT us U Unknown PROCEDURE/MINOR SURGICAL ORDERAB LES Final Result * IR PICC LINE MUCK FARMER (12/03/2007 12:50 PM EDT) Anatomical Region Laterality Modality Other 12/03/2007 12:5 0 PM EDT Narrative 12/03/2007 3:21 PM EDT ORIN Rodríguez PA-C, dictating for Tim Alicia M.D. Date- ??12/03/07 Procedure- ??Ultrasound and fluoroscopically guided PICC placement. Clinical Indications- ??A 42-year-old male with history of an infected left knee, status post arthroscopic and debridement with poor IV access. PICC requested for long-term IV antibiotic therapy. FINDINGS- 1. ??Procedure performed by Saira Rodríguez PA-C, with Anita Alicia M.D., supervising. 2. ??Consent was obtained. 3. ??Ultrasound guidance was used to identify the left upper arm veins. The left basilic vein found to be widely patent. ??Under aseptic technique and after local anesthesia was administered, a 21-gauge needle was used to puncture the left basilic vein. ??Guidewire successfully inserted. ??Needle removed. ??Over the guidewire, an introducer sheath was placed. ??The introducer and wire were removed, and through the sheath, a 4 [place] Gro[place]ong single-lumen tip PICC was placed and advanced with the tip of the catheter positioned within the cavoatrial junction as documented with spot film imaging. ??The sheath was removed. ??The catheter was cut to length, aspirated, and flushed appropriately. ??It was then secured to the skin with 2-0 silk. ??A sterile dressing was applied. 4. ??The patient tolerated the procedure well without immediate complications. IMPRESSION(S)- ?Successful, uncomplicated 4 [place] Groshong single- lumen tip PICC placement with ultrasound and fluoroscopic guidance. NOTE- ??A permanent recorded image of the U/S Guidance was created. Saira Rodríguez P.A.-C/Anita Alicia M.D. ? Playground Attendant- TRU SAHU ? Reading Radiologist- ANITA ALICIA ??MD ? Released Date Time- 12/03/07 1627 Procedure Tim Alicia - 09/03/2009 ORIN Rodríguez PA-C, dictating for Tim Alicia M.D. Date- 12/03/07 Procedure- Ultrasound and fluoroscopically guided PICC placement. Clinical Indications- A 42-year-old male with history of an infected left knee, status post arthroscopic and debridement with poor IV access. PICC requested for long-term IV antibiotic therapy. FINDINGS- 1. Procedure performed by Saira Rodríguez PA-C, with Anita Alicia M.D., supervising. 2. Consent was obtained. 3. Ultrasound guidance was used to identify the left upper arm veins. The left basilic vein found to be widely patent. Under aseptic technique and after local anesthesia was administered, a 21-gauge needle was used to puncture the left basilic vein. Guidewire successfully inserted. Needle removed. Over the guidewire, an introducer sheath was placed. The introducer and wire were removed, and through the sheath, a 4 [place] Groshong single-lumen tip PICC was placed and advanced with the tip of the catheter positioned within the cavoatrial junction as documented with spot film imaging. The sheath was removed. The catheter was cut to length, aspirated, and flushed appropriately. It was then secured to the skin with 2-0 silk. A sterile dressing was applied. 4. The patient tolerated the procedure well without immediate complications. IMPRESSION(S)- Successful, uncomplicated 4 [place] Groshong single- lumen tip PICC placement with ultrasound and fluoroscopic guidance. NOTE- A permanent recorded image of the U/S Guidance was created. Saira Rodríguez P.A.-C/Anita Alicia M.D. Playground Attendant- TRU Blancas Radiologist- ANITA ALICIA MD Released Date Time- 12/03/07 1627 us Aristeo Jorgensen MD [facility] RAD HISTORICAL Karina l Result * XR KNEE (2 VIEWS) (12/01/2007 10:39 AM EDT) Anatomical Region Laterality Modality Other 12/01/2007 10:3 9 AM EDT Narrative 12/01/2007 2:29 PM EDT Three-view left knee, 12/01/07. History- Postop infection. Impression- Moderate sized suprapatellar joint effusion. Moderate medial compartment degenerative change. ? Playground Attendant- SHANIQUE MEDRANO ? Reading RadiologistStephanie RAMIREZ ??MD ? Released Date Time- 12/01/07 145 Procedure Note Salomón Ramirez - 09/03/2009 Three-view left knee, 12/01/07. History- Postop infection. Impression- Moderate sized suprapatellar joint effusion. Moderate medial compartment degenerative change. Playground Attendant- SHANIQUE Blancas RadiologistStephanie RAMIREZ MD Released Date Time- 12/01/07 1453 Aristeo Jorgensen MD [facility] Karina castillo Result documented in this encounter Visit Diagnoses Not on filedocumented in this encounter
--- OUTSIDE RECORDS SUMMARY | 2024-05-29 15:56 | XMS_ITS | Encounter Summary ---
Author Organization [place] [address] Care Team Providers Care Senior Business Manager Name Role Phone Unavailable Primary Care Provider Unavailabl e Encounter Details Date Type Department Care Team (Late st Contact Info) Description 01/16/2008 12:32 PM EDT - 01/16/2008 11:59 PM EDT Hospital Encounter HST LAB GRT Homehealth, [facility] Social History Tobacco Use Types Packs/Day Years [...] EST Clinical Support [facility] [address] [place] [address] 11/19/2024 1:40 PM EDT Office Visit SEP Neurology [facility] [address] [place] [address] Lyndsay Brewer, [address] [place] [address] documented as of this encounter Visit Diagnoses Not on filedocumented in this encounter
--- OUTSIDE RECORDS SUMMARY | 2024-05-29 15:56 | XMS_ITS | Encounter Summary ---
Author Organization [place] [address] Care Team Providers Care Digital Project Coordinator Name Role Phone Unavailable Primary Care Provider Unavailabl e Encounter Details Date Type Department Care Team (Late st Contact Info) Description 06/05/2007 5:53 PM EST - 06/05/2007 7:33 PM EST Hospital Encounter HST E/D BLUE EDG Edith Addison MD [address] [place] [address] Social History Tobacco Use Types Packs/Day [...] AM EST Clinical Support [facility] [place] [address] [place] [address] 11/19/2024 1:40 PM EDT Office Visit SEP Neurology [facility] [address] [place] [address] Lyndsay Brewer DO [address] [place] [address] Scheduled Orders Name Type Priority Associated Diagnoses Orde r Schedule XR ELBOW Imaging Routine Once for 1 Occ urrences starting 09/02/2009 until 09/02/2009, 1 completed documented as of this encounter Procedures Procedure Name Priority Date/Time Associated Diagnosis Comments XX ELBOW Routine 06/05/2007 6:59 PM EST documented in this encounter Results * XR ELBOW (06/05/2007 6:59 PM EST) Anatomical Region Laterality Modality Other 06/05/2007 6:59 PM EST Narrative 06/06/2007 7:47 AM EST RM 40 Five view left elbow, 06/05/07. History- Pain after lifting weight. Impression- Comparison is made to prior report of 06/16/1990. Moderate olecranon and radial humeral degenerative changes present. Acute fracture at the radial head cannot be completely excluded, however, the changes are thought to be likely due to degenerative osteophytosis. Correlation ??with physical exam recommended. No effusion is present. No definite evidence of acute fracture. ? Propulsion Generator Repairer- SHANIQUE MEDRANO ? Reading Radiologist- SALOMÓN RAMIREZ ??MD ? Released Date Time- 06/06/071655 Procedure Note Salomón Ramirez - 09/02/2009 RM 40 Five view left elbow, 06/05/07. History- Pain after lifting weight. Impression- Comparison is made to prior report of 06/16/1990. Moderate olecranon and radial humeral degenerative changes present. Acute fracture at the radial head cannot be completely excluded, however, the changes are thought to be likely due to degenerative osteophytosis. Correlation with physical exam recommended. No effusion is present. No definite evidence of acute fracture. Propulsion Generator Repairer- SHANIQUE Blancas Radiologist- SALOMÓN RAMIREZ MD Released Date Time- 06/06/071655 Edith Addison MD [facility] ELIZA Downs Final Result documented in this encounter Visit Diagnoses Not on filedocumented in this encounter
--- OUTSIDE RECORDS SUMMARY | 2024-05-29 15:56 | XMS_ITS | Encounter Summary ---
Author Organization [place] [address] Care Team Providers Care Compressor House Operator Name Role Phone Unavailable Primary Care Provider Unavailabl e Encounter Details Date Type Department Care Team (Late st Contact Info) Description 07/13/2004 12:45 PM EST - 07/13/2004 3:00 PM EST Hospital Encounter HST EMERGENCY FTT Generic, Historical Provider Social History Tobacco Use Types Packs/Day Years Used Date Smoking Tobacco: Never Assessed Sex and Gender Information Value Date Recorded Sex Assigned at Not on file Legal Sex Male 8:00 PM EDT Gender Identity Not on file Sexual Orientation Not on file documented as of this encounter ED Notes * Unknown, Unknown - 11/20/2009 1:05 PM EDT documented in this encounter Plan of Treatment Upcoming Encounters Date Type Department Care Team (Late st Contact Info) Description 06/28/2024 9:40 AM EST Clinical Support [facility] [place] [address] [place] [address] 11/19/2024 1:40 PM EDT Office Visit SEP Neurology [facility] [address] [place] [address] Lyndsay Brewer DO [address] [place] [address] Scheduled Orders Name Type Priority Associated Diagnoses Orde r Schedule XR CHEST PA & LAT Imaging Routine Once fo r 1 Occurrences starting 10/08/2009 until 10/08/2009, 1 completed documented as of this encounter Procedures Procedure Name Priority Date/Time Associated Diagnosis Comments DIAG CHEST PA & LAT Routine 07/13/2004 1 2:00 AM EST documented in this encounter Results * XR CHEST PA & LAT (07/13/2004 12:00 AM EST) Anatomical Region Laterality Modality Other 07/13/2004 07/13/2004 Narrative 07/13/2004 12:00 AM EST VERIFIED [facility] Reason: ??DIFFICULTY BREATHING Dict.Staff: ALTA YI Verified By: HUNTER GONCALVES ?Alexey: 07/13/04 ?? 7:29 pm Exams: ??DIAG-CHEST PA & LATERAL 07-13-04 TWO VIEW CHEST: HISTORY: Reported difficulty breathing. Normal except for scattered small calcified granuloma lungs consistent with healed granulomatous disease. No priors. ??KD/rh end of result Procedure Note Unknown, U - 10/08/2009 VERIFIED [facility] Reason: DIFFICULTY BREATHING Dict.Staff: ALTA YI Verified By: HUNTER GONCALVES Alexey: 07/13/04 7:29 pm Exams: DIAG-CHEST PA & LATERAL 07-13-04 TWO VIEW CHEST: HISTORY: Reported difficulty breathing. Normal except for scattered small calcified granuloma lungs consistent with healed granulomatous disease. No priors. KD/rh end of result us U Unknown IMG SE LW RAD HISTORICAL Final Result documented in this encounter Visit Diagnoses Not on filedocumented in this encounter
--- NOTE | 2024-05-29 16:36 | CT_ITS ---
PROCEDURE INFORMATION: Exam: CTA Chest With Contrast Exam date and time: 05/29/2024 5:32 PM Age: 58 years old Clinical indication: Cough; Additional info: Rll consolidation, persistent cough TECHNIQUE: Imaging protocol: Computed tomographic angiography of the chest with contrast. Exam focused on the arteries. 3D rendering (Not supervised by radiologist): MIP and/or 3D reconstructed images were created by the technologist. Radiation optimization: All CT scans at this facility use at least one of these dose optimization techniques: automated exposure control; mA and/or kV adjustment per patient size (includes targeted exams where dose is matched to clinical indication); or iterative reconstruction. Contrast material: ISOVUE 370; Contrast volume: 70 ml; Contrast route: INTRAVENOUS (IV); COMPARISON: CT ANGIO CHEST PE PROTOCOL 10/17/2021 9:27 PM FINDINGS: Pulmonary arteries: No evidence of pulmonary embolism. Aorta: No evidence of thoracic aortic aneurysm or dissection. Lungs: Right middle lobe airspace consolidation seen on prior chest radiograph correlates with compressive atelectasis in the right lung base secondary to right hemidiaphragm eventration rather than an infiltrative process. No evidence of persistent or airspace infiltrate. Small focus of pulmonary scarring in the right lung apex is slightly smaller and appears more linear and compared with 10/17/2021, compatible with expected evolution prior infectious or inflammatory insult. Few scattered thin wall muscles are grossly unchanged from prior exam. Saber sheath trachea morphology and prominent central bronchial wall thickening compatible with COPD. Central airways are clear. Calcified pulmonary granuloma in the left lower lobe consistent with chronic sequelae of prior granulomatous disease, unchanged. Pleural spaces: No pneumothorax. No pleural effusion. Heart: No cardiomegaly. No pericardial effusion. Coronary arteries: Calcific coronary artery disease, unchanged. Lymph nodes: Unremarkable. Intraperitoneal space: No emergent findings or suspicious mass lesions in the partially visualized upper abdomen. Bones/joints: No acute osseous abnormality. Soft tissues: Unremarkable. IMPRESSION: 1. No evidence of acute cardiopulmonary disease. 2. COPD. 3. Additional chronic ancillary findings are detailed above.
[2024-05-29 16:50] LABS: Lactate Venous 1.9 mmol/L (0.4-2.0); VBG Base Excess -0.7 mmol/L (-2.4-2.3); VBG HCO3 23.1 mmol/L (23-30); VBG PCO2 33.2 mmol/L (35-51); VBG PH 7.46 mmol/L (7.31-7.41); VBG PO2 133.7 mmol/L (28-40); VBG Total CO2 24.1 mmol/L (23-27)
[2024-05-29 16:55] LABS: Basophils # 0.1 K/mm3 (0-0.2); Basophils % 1.3 % (0.1-2.0); Eosinophils # 0.1 K/mm3 (0.0-0.4); Eosinophils % 1.3 % (0.1-12.0); Hemoglobin 14.5 g/dL (14.1-18.0); Lymphocytes # 2.7 K/mm3 (0.7-4.5); Lymphocytes % 27.9 % (10-50); Mean Corpuscular HGB Conc 33.8 g/dL (31.8-35.4); Mean Corpuscular Hemoglobin 32.7 pg (27.0-31.2); Mean Corpuscular Volume 96.6 fl (80-94); Mean Platelet Volume 7.2 fl (7.4-10.4); Monocytes # 0.6 K/mm3 (0.1-1.0); Monocytes % 5.9 % (1.7-9.3); Neutrophils # 6.2 K/mm3 (1.8-7.8); Neutrophils % 63.6 % (37.0-80.0); Platelet Count 237 K/mm3 (142-424); Red Blood Count 4.45 M/mm3 (4.60-6.20); Red Cell Distribution Width 13.6 % (11.5-17.5); White Blood Count 9.8 K/mm3 (4.8-10.8)
[2024-05-29 16:59] LABS: Alanine Aminotransferase 55 U/L (12-78); Albumin/Globulin Ratio 1.4 (1.1-1.8); Alkaline Phosphatase 117 U/L (38-126); Aspartate Amino Transferase 47 U/L (17-59); Bilirubin,Total 0.4 mg/dl (0.2-1.3); Blood Urea Nitrogen 21 mg/dl (9-20); Calcium 9.1 mg/dl (8.4-10.2); Carbon Dioxide 27 mmol/L (22.0-30.0); Chloride 105 mmol/L (98-107); Creatinine Clearance Estimated 135 mL/min (50-200); Estimated Glomerular Filt Rate 87 ml/min (>60); GFR (African American) 106 ML/MIN (>60); Globulin 2.8 g/dL (1.3-3.2); Glucose 139 mg/dl (74-100); Magnesium 2.2 mg/dl (1.6-2.3); Sodium 137 mmol/L (136-145); Total Protein,Serum 6.8 g/dl (6.3-8.2)
[2024-05-29 17:06] LABS: Lactic Acid 1.8 mmol/L (0.7-2.1)
[2024-05-29 17:16] LABS: NT Pro Brain Natriuretic Pep. 66.7 pg/mL (0-125)
[2024-05-29] MEDS: SODIUM CHLORIDE 0.9% 10ML SYR (RAD ONLY) 10 ML IV (17:33)
[2024-05-29] MEDS: 0.9 % SODIUM CHLORIDE 50 ML VIAL IV (17:33)
[2024-05-29] MEDS: IOPAMIDOL-370 (76%);100ML BOTTLE 70 ML IV (17:33)
[2024-05-29 17:41] LABS: HIV (1&2) Antibody Rapid NONREACTIVE (NONREACTIVE)
[2024-05-29 18:05] LABS: Rhinovirus/Enterovirus Detected (NotDetected)
[2024-05-29] MEDS: CEFTRIAXONE SODIUM 2 GM in 0.9 % SODIUM CHLORIDE 100 ML IV (19:13)
[2024-05-29 19:30] VITALS: BP 160/94; PULSE 74; RESP 18; TEMP 36.6; O2SAT 98
--- NOTE | 2024-05-29 19:32 | PC.NURSE ---
IV discontinued; catheter tip intact. Patient tolerated well.
[2024-05-30 06:15] LABS: HCV Ab Non Reactive (Non Reactive)
== END 2024-05-29 19:36 | disposition home or self-care (01) ==
PROVIDERS: Emergency Provider Emergency Medicine; PCP Nurse Practitioner
DX: J18.9 Pneumonia, unspecified organism (principal); R06.02 Shortness of breath
CPT/HCPCS: 71046; 71275; 80053; 82803; 83605; 83735; 83880; 85025; 86803; 87040; 87389; 87633; 96374; 99285; J0696; J7620; Q9967